=== PATIENT | male | born 1975 | race Caucasian/White ===

== ENCOUNTER 2017-10-23 14:30 | Inpatient (IN) | payer MEDICAID, SELFPAY ==
--- NOTE | 2017-10-23 14:30 | DT_ITS ---
This patient was seen during an EMR downtime October 19, 2017 - October 26, 2017. This patient may have a combination of paper and electronic documentation or all paper documentation. All documentation is viewable within the e-chart portion of [facility] for each patient visit.
--- NOTE | 2017-10-23 19:28 | CT_ITS ---
STUDY: CT BRAIN WITHOUT CONTRAST REASON FOR EXAM: Male, 42 years old. Intracranial hemorrhage RADIATION DOSAGE (If Supplied By Facility): CTDIvol = ( 44.99 ) mGy, DLP = ( 846.73 ) mGycm TECHNIQUE: Transaxial CT imaging of the brain was performed without administration of intravenous contrast material. Sagittal and coronal images reformatted. Individualized dose optimization techniques were used for this CT. COMPARISON: None. FINDINGS: Normal soft tissue structures. Posterior parietal cranial defect. Left cerebral sulcal effacement. Mild effacement of the left lateral ventricle. Mild shift of the falx to the right of 2 mm. Normal white matter tracts of the cerebral hemispheres. Normal basal ganglia and thalami. Normal brainstem. Normal cerebellum. There is a left temporal parietal hemorrhage measuring 3.7 x 2.3 x 2.5 cm with surrounding edema. There are no findings of an acute ischemic infarction. There is mucoperiosteal inflammatory disease of the paranasal sinuses consistent with mild chronic sinusitis. CT/Brain/Head without Contrast IMPRESSION: There is a large left temporoparietal hemorrhage measuring 3.7 x 2.3 x 2.5 cm with surrounding edema. Left cerebral sulcal effacement. Mild shift of the falx to the right of 2 mm. N.B. : The above information has been verbally conveyed by Len Dhillon DO to Dr. Xena Barakat, Referring Physician, on 10/23/2017 20:22:47 (ET). Electronically Signed: Len Dhillon DO at 19:53 EDT , Service support , N.B. : The above information has been verbally conveyed by Len Dhillon DO to Dr. Xena Barakat, Referring Physician, on 10/23/2017 20:22:47 (ET).
[2017-10-26] MEDS: Acetaminophen 325 MG Tablet 650 MG PO (10:00)
[2017-10-26] MEDS: Docusate Sodium 100 MG Capsule PO ×2 (10:00→21:11)
[2017-10-26] MEDS: amLODIPine 5 MG Tablet PO (10:00)
[2017-10-26] MEDS: Heparin Injection 5,000 UNITS/ML Syringe 5000 UNITS SC (15:00)
--- NOTE | 2017-10-26 16:50 | PCM.PN.HOSP ---
Subjective: Planes of headache. States initially he only experiences in the morning but then states he has an at night. Says it is frontal but different than his typical migraines which are on top of the scalp. General: Alert, No apparent distress HEENT: Atraumatic, Normocephalic Current Medications Acetaminophen (Tylenol) 650 mg PO Q6H PRN Last Admin: 10/26/17 10:00 Dose: 650 mg Amlodipine Besylate (Norvasc) 5 mg PO DAILY [facility] Last Admin: 10/26/17 10:00 Dose: 5 mg Docusate Sodium (Colace) 100 mg PO BID [facility] Last Admin: 10/26/17 10:00 Dose: 100 mg Heparin Sodium (Porcine) () 5,000 units SC Q8 [facility] Last Admin: 10/26/17 15:00 Dose: 5,000 units Oxycodone HCl (Oxyir) 5 mg PO Q6H PRN Medical Necessity - Tobacco Use Smoking Status: Never smoker Assessment/Plan 1. Intracranial hemorrhage I [facility] and as well as with the patient and his family in his room. Notes that I received from the facility stated that it could be related with hemorrhagic transformation of a stroke versus just a related with hypertension. Patient will need follow-up with neurology as outpatient. Repeat head CT from the eighth still confirms large left temporal parietal hemorrhage of 3.7 x 2.3 x 2.5 cm with surrounding edema. The patient's father asked me about the etiology and as I was looking at the records he went to the bathroom and walked out of the room. 2. Migraine I recommended Tylenol for the patient and I recommended the patient avoid narcotics. I told him that I would not be discontinuing the narcotics but narcotics should not be used for headaches. Patient stated that initially he was using for headaches and then I told him he should be using it said he was using only for his back. I told the patient to avoid narcotics as much as possible unless absolutely necessary for other musculoskeletal pain. Await further recommendations by neurology in regards to the patient's chronic migraine disorder. 3. Hypertension Patient's blood pressure here in over [facility] is actually been pretty good. No evidence of any malignant hypertension or even hypertensive urgency. I do agree with continuing low-dose of amlodipine for blood pressure control. Recommend the patient and his family that we will continue with blood pressure control and that he will need antihypertensive therapy for the time being. It seemed as though they wanted a blanket statement that he would need to be on something for the rest of his life or not. Home I could not provide that but he would need to have further follow-up with his primary care doctor to see if he will still need antihypertensive treatment or not but I did explain is possible that he may not a later point. 4. VTE prophylaxis Patient on subcu heparin. I will discontinue the heparin and place patient on SCDs given the hemorrhage patient has. Greater than 40 minutes of which greater than 50% of the time was spent discussing with the patient's family in regards to the intracranial hemorrhage, headaches, migraines and hypertension treatment. Patient's story constantly changed during the course of the encounter and when trying to answer the patient's father's questions the father left the room and not to return. Patient's grandmother was there who also asked questions as well but is quite surprising that made his questions were not answered at the [facility] or if they have have simply just weren't present or just simply did not ask these questions. Code Visit Inpatient E&M: 41209 Subs Hosp L3
--- NOTE | 2017-10-26 16:57 | PN_ITS ---
Subjective: Planes of headache. States initially he only experiences in the morning but then states he has an at night. Says it is frontal but different than his typical migraines which are on top of the scalp. General: Alert, No apparent distress HEENT: Atraumatic, Normocephalic Current Medications Acetaminophen (Tylenol) 650 mg PO Q6H PRN Last Admin: 10/26/17 10:00 Dose: 650 mg Amlodipine Besylate (Norvasc) 5 mg PO DAILY [facility] Last Admin: 10/26/17 10:00 Dose: 5 mg Docusate Sodium (Colace) 100 mg PO BID [facility] Last Admin: 10/26/17 10:00 Dose: 100 mg Heparin Sodium (Porcine) () 5,000 units SC Q8 [facility] Last Admin: 10/26/17 15:00 Dose: 5,000 units Oxycodone HCl (Oxyir) 5 mg PO Q6H PRN Medical Necessity - Tobacco Use Smoking Status: Never smoker Assessment/Plan 1. Intracranial hemorrhage * I [facility] and as well as with the patient and his family in his room. Notes that I received from the facility stated that it could be related with hemorrhagic transformation of a stroke versus just a related with hypertension. * Patient will need follow-up with neurology as outpatient. Repeat head CT from the eighth still confirms large left temporal parietal hemorrhage of 3.7 x 2.3 x 2.5 cm with surrounding edema. * The patient's father asked me about the etiology and as I was looking at the records he went to the bathroom and walked out of the room. 2. Migraine * I recommended Tylenol for the patient and I recommended the patient avoid narcotics. I told him that I would not be discontinuing the narcotics but narcotics should not be used for headaches. Patient stated that initially he was using for headaches and then I told him he should be using it said he was using only for his back. * I told the patient to avoid narcotics as much as possible unless absolutely necessary for other musculoskeletal pain. * Await further recommendations by neurology in regards to the patient's chronic migraine disorder. 3. Hypertension * Patient's blood pressure here in over [facility] is actually been pretty good. No evidence of any malignant hypertension or even hypertensive urgency. * I do agree with continuing low-dose of amlodipine for blood pressure control. * Recommend the patient and his family that we will continue with blood pressure control and that he will need antihypertensive therapy for the time being. It seemed as though they wanted a blanket statement that he would need to be on something for the rest of his life or not. Home I could not provide that but he would need to have further follow-up with his primary care doctor to see if he will still need antihypertensive treatment or not but I did explain is possible that he may not a later point. 4. VTE prophylaxis * Patient on subcu heparin. * I will discontinue the heparin and place patient on SCDs given the hemorrhage patient has. Greater than 40 minutes of which greater than 50% of the time was spent discussing with the patient's family in regards to the intracranial hemorrhage, headaches, migraines and hypertension treatment. Patient's story constantly changed during the course of the encounter and when trying to answer the patient 's father's questions the father left the room and not to return. Patient's grandmother was there who also asked questions as well but is quite surprising that made his questions were not answered at the [facility] or if they have have simply just weren't present or just simply did not ask these questions. Code Visit Inpatient E&M: 63639 Subs Hosp L3
--- NOTE | 2017-10-26 17:28 | PCM.PN.NEU ---
Subjective: Patient seen during Physical therapy session. Is having headaches in the evening but resolving with Tylenol. Tolerating therapy. Denies any shortness of breath, chest pains, blurry vision or double vision. No issues with GI/. - Physical Exam General: Alert, Oriented x3, Cooperative HEENT: Atraumatic, PERRLA, EOMI, Normocephalic Neck: Supple, No JVD, Negative Carotid Bruits Lungs: Clear to auscultation, Normal air movement Cardiovascular: Regular rate, No murmurs Abdomen: Bowel Sounds Present, Soft, Non Tender Extremities: No edema, Capillary Refill Less than 3 Seconds Skin: No rashes, No breakdown Musculoskeletal: No Tenderness to Palpation of Joints or Extremities Neurological: Cranial nerves II-XII grossly intact Psych/Mental Status: Normal Affect, Appropriate Active Medications Acetaminophen (Tylenol) 650 mg PO Q6H PRN Last Admin: 10/26/17 10:00 Dose: 650 mg Amlodipine Besylate (Norvasc) 5 mg PO DAILY [facility] Last Admin: 10/26/17 10:00 Dose: 5 mg Docusate Sodium (Colace) 100 mg PO BID [facility] Last Admin: 10/26/17 10:00 Dose: 100 mg Oxycodone HCl (Oxyir) 5 mg PO Q6H PRN Medical Necessity - Tobacco Use Smoking Status: Never smoker Assessment/Plan Debility s/p Left Basilar ganglia hemorrhage. Goal of rehab is christianity of prior level of functional independence. Plan: - Physical therapy for gait and balance - Occupational Therapy for ADLs - Speech therapy - As needed analgesics - Bowel protocol - DVT prophylaxis: SCDs, Heparin 5,000units daily - HTN - started on Norvasc 5mg daily. Goal BP < 130/80 - Hx of Migraines - Currently does not have headache, states they have been resolving with Tylenol will monitor - Fall precautions
--- NOTE | 2017-10-26 17:39 | PN.NEURO_ITS ---
Subjective: Patient seen during Physical therapy session. Is having headaches in the evening but resolving with Tylenol. Tolerating therapy. Denies any shortness of breath, chest pains, blurry vision or double vision. No issues with GI/. - Physical Exam General: Alert, Oriented x3, Cooperative HEENT: Atraumatic, PERRLA, EOMI, Normocephalic Neck: Supple, No JVD, Negative Carotid Bruits Lungs: Clear to auscultation, Normal air movement Cardiovascular: Regular rate, No murmurs Abdomen: Bowel Sounds Present, Soft, Non Tender Extremities: No edema, Capillary Refill Less than 3 Seconds Skin: No rashes, No breakdown Musculoskeletal: No Tenderness to Palpation of Joints or Extremities Neurological: Cranial nerves II-XII grossly intact Psych/Mental Status: Normal Affect, Appropriate Active Medications Acetaminophen (Tylenol) 650 mg PO Q6H PRN Last Admin: 10/26/17 10:00 Dose: 650 mg Amlodipine Besylate (Norvasc) 5 mg PO DAILY [facility] Last Admin: 10/26/17 10:00 Dose: 5 mg Docusate Sodium (Colace) 100 mg PO BID [facility] Last Admin: 10/26/17 10:00 Dose: 100 mg Oxycodone HCl (Oxyir) 5 mg PO Q6H PRN Medical Necessity - Tobacco Use Smoking Status: Never smoker Assessment/Plan Debility s/p Left Basilar ganglia hemorrhage. Goal of rehab is restorationism of prior level of functional independence. Plan: - Physical therapy for gait and balance - Occupational Therapy for ADLs - Speech therapy - As needed analgesics - Bowel protocol - DVT prophylaxis: SCDs, Heparin 5,000units daily - HTN - started on Norvasc 5mg daily. Goal BP < 130/80 - Hx of Migraines - Currently does not have headache, states they have been resolving with Tylenol will monitor - Fall precautions
[2017-10-26 21:05] VITALS: BP 130/82; PULSE 67; RESP 18; TEMP 36.1; O2SAT 96
[2017-10-26] MEDS: oxyCODONE 5 MG Tablet PO (21:51)
[2017-10-27] MEDS: Heparin Injection 5,000 UNITS/ML Syringe 5000 UNITS SC (01:26)
--- NOTE | 2017-10-27 02:50 | NURSING ---
Reviewed and agree with PLUCK TRIMMER documentation and [facility] charting.
[2017-10-27 07:37] VITALS: O2SAT 98
--- NOTE | 2017-10-27 09:00 | NURSING ---
Patient found up in room by self and did not put call arias on. This nurse had found patient yesterday in room as well up without staff assist and had instructed him on patient safety and use of using staff for assist and patient had agreed yesterday to use the call arias and patient had for the rest of this nurses shift to her knowledge. Today, patient informed again about his safety and motion chair alarm will be placed in patients room. Patient angry with this nurse and reported that he will throw the alarm in the trash. Edna FORREST aware and Dr. Aguilera of patients noncompliance.
[2017-10-27] MEDS: amLODIPine 5 MG Tablet PO (09:13)
[2017-10-27] MEDS: Docusate Sodium 100 MG Capsule PO ×2 (09:13→21:07)
[2017-10-27 09:14] VITALS: BP 143/99; PULSE 77; RESP 18; TEMP 36.5; O2SAT 97
[2017-10-27 09:45] LABS: ALB/GLOB Ratio 1.1 RATIO (0.9-2.4); Albumin, Serum 3.5 g/dL (3.2-5.0); BUN 12 mg/dL (7-18); BUN/Creat Ratio 13.3 RATIO (10-20); EST Glomerular Filtration Rate 99 mL/min (>60); Est Glom Filt Rate - Afr Amer 120 mL/min (>60); Globulin 3.3 g/dL (2.2-4.2); Glucose 108 mg/dL (74-106); Protein, Total 6.8 g/dL (6.4-8.2)
[2017-10-27 09:46] LABS: AST(SGOT) 20 U/L (15-37); Alanine Aminotransfer ALT/SGPT 37 U/L (16-61); Alkaline Phosphatase 76 U/L (45-117); Anion Gap 9 (5-15); Calcium,Total 8.5 mg/dL (8.5-10.1); Chloride 106 mmol/L (98-107); Magnesium 2.5 mg/dL (1.6-2.6); Potassium 3.5 mmol/L (3.5-5.1); Sodium Level 142 mmol/L (136-145)
[2017-10-27 10:57] VITALS: BMI 27.9
--- NOTE | 2017-10-27 11:24 | PN.NEURO_ITS ---
Subjective: The patient reports rehab is going well however he is dissatisfied with the food. He is also dissatisfied with his interaction with the hospitalist yesterday, he indicated that the hospitalist and he had a negative interaction however I cannot corroborate this after discussing this with the staff. He says that the hospitalist through water on his food, again the staff did not note significant water on his food or elsewhere in the room. 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 Asks about his recovery, his blood pressure medicine and his ability to ride motorcycles and have sex. I indicated to him that his blood pressure should be treated for now, but I agree with the hospitalist notes that his blood pressure should be treated for now and eventually it should be treated based on blood pressure abnormalities. I told him that for now if there should be no driving and that if he returns to riding a motorcycle he should wear helmet which he apparently does not agree with. - Physical Exam General: Alert, Oriented x3 Psych/Mental Status: Agitated Vital Signs Temp Pulse Resp BP Pulse Ox 36.5 C L 77 18 143/99 H 97 10/27/17 09:14 10/27/17 09:14 10/27/17 09:14 10/27/17 09:14 10/27/17 09:14 Oxygen Delivery Method Room Air Weight: 101.4 kg Body Mass Index (BMI) 27.9 Intake and Output for Last 24 Hours 10/25/17 10/26/17 10/27/17 23:59 23:59 23:59 Intake Total 240 / 240 Balance 240 / 240 Laboratory Tests Past 24 Hrs 10/24/17 07:26 Sodium 142 Potassium 3.5 Chloride 106 Carbon Dioxide 27.0 Anion Gap 9 BUN 12 Creatinine 0.90 Est GFR (MDRD) Af Amer 120 Est GFR (MDRD) Non-Af 99 BUN/Creatinine Ratio 13.3 Glucose 108 H Calcium 8.5 Phosphorus 3.0 Magnesium 2.5 Total Bilirubin 0.70 AST 20 ALT 37 Alkaline Phosphatase 76 Total Protein 6.8 Albumin 3.5 Globulin 3.3 Albumin/Globulin Ratio 1.1 Current Medications Generic Name Dose Route Start Last Admin Trade Name Freq PRN Reason Stop Dose Admin Acetaminophen 650 mg 10/23/17 18:57 10/26/17 10:00 Tylenol PO 650 mg Q6H PRN Administration Amlodipine Besylate 5 mg 10/24/17 10:00 10/27/17 09:13 Norvasc PO 5 mg DAILY [facility] Administration Docusate Sodium 100 mg 10/23/17 22:00 10/27/17 09:13 Colace PO 100 mg BID [facility] Administration Gabapentin 100 mg 10/27/17 12:00 Neurontin PO TIDCM [facility] Lorazepam 0.5 mg 10/27/17 11:11 Ativan PO QHS PRN PRN INSOMNIA Oxycodone HCl 5 mg 10/23/17 18:57 10/26/17 21:51 Oxyir PO 5 mg Q6H PRN Administration Medical Necessity - Tobacco Use Smoking Status: Never smoker Assessment/Plan Debility s/p Left Basilar ganglia hemorrhage. Goal of rehab is catholic of prior level of functional independence. Plan: - Physical therapy for gait and balance - Occupational Therapy for ADLs - Speech therapy: Regular diet - As needed analgesics - Bowel protocol - DVT prophylaxis: SCDs, Heparin 5,000units daily - HTN - started on Norvasc 5mg daily. Goal BP < 130/80 - Hx of Migraines - Currently does not have headache, states they have been resolving with Tylenol will monitor - Fall precautions
--- NOTE | 2017-10-27 11:52 | NURSING ---
Patient returned to room after OT session with SALT OPERATOR assisting patient in hallway. As patient entered room, he seen the chair alarm and he threw the alarm across the room and was upset with SALT OPERATOR. SALT OPERATOR instructed patient on use of alarm and call arias for patient safety.
[2017-10-27] MEDS: Gabapentin 100 MG Capsule PO ×2 (14:27→17:58)
[2017-10-27 20:10] LABS: White Blood Count 5.7 K/mm3 (4.4-11.0)
[2017-10-27 20:11] LABS: Hematocrit 41.2 % (40-54); Hemoglobin 14.7 g/dl (13.0-16.5); Mean Corp Hgb Conc 35.7 g/gl (32-36); Mean Corpuscular Hgb 29.9 pg (27.0-32.0); Mean Corpuscular Volume 83.7 fL (80-94); Mean Platelet Vol. 9.8 fl (6.2-12.0); Platelet Count 201 K/mm3 (150-450); RBC Distribution Width SD 39.1 fl (35.1-43.9); Red Blood Count 4.92 M/mm3 (4.6-6.2); Scan Indicated on CBC? Y/N NO
[2017-10-27 21:00] VITALS: BP 148/76; PULSE 80; RESP 16; TEMP 36.6; O2SAT 97; BMI 27.9
[2017-10-27] MEDS: LORazepam 0.5 MG Tablet PO (21:07)
[2017-10-27] MEDS: oxyCODONE 5 MG Tablet PO (23:55)
--- NOTE | 2017-10-28 01:56 | NURSING ---
Agree with MAKING DEPARTMENT PREPARER documentation and [facility]IMS charting.
[2017-10-28] MEDS: Gabapentin 100 MG Capsule PO ×3 (08:55→17:24)
[2017-10-28 09:06] VITALS: BP 142/90; PULSE 78; RESP 18; TEMP 36.7; O2SAT 97
[2017-10-28] MEDS: Docusate Sodium 100 MG Capsule PO (10:25)
[2017-10-28] MEDS: amLODIPine 5 MG Tablet PO (10:25)
--- NOTE | 2017-10-28 10:35 | PCM.PN.NEU ---
Subjective: Patient seen in therapy room waiting therapy session. His blood pressure continues to be elevated will increase his Norvasc to 10mg daily. Was started on Gabapentin for Neuropathy pain in his feet yesterday, states pain is improving, felt better last night. He is Tolerating therapy. States he is ready to go home. No issues with GI/. - Physical Exam General: Alert, Oriented x3, Cooperative HEENT: Atraumatic, PERRLA, EOMI, Normocephalic Neck: Supple, No JVD, Negative Carotid Bruits Lungs: Clear to auscultation, Normal air movement Cardiovascular: Regular rate, No murmurs Abdomen: Bowel Sounds Present, Soft, Non Tender Extremities: No edema, Capillary Refill Less than 3 Seconds Skin: No rashes, No breakdown Musculoskeletal: No Tenderness to Palpation of Joints or Extremities Neurological: Cranial nerves II-XII grossly intact Psych/Mental Status: Normal Affect, Appropriate, Alert and oriented to time, place, person, mood and affect Vital Signs Temp Pulse Resp BP Pulse Ox 98.0 F 78 18 142/90 H 97 10/28/17 09:06 10/28/17 09:06 10/28/17 09:06 10/28/17 09:06 10/28/17 09:06 Oxygen Delivery Method Room Air Weight: 99.4 kg Body Mass Index (BMI) 27.9 Intake and Output for Last 24 Hours 10/26/17 10/27/17 10/28/17 23:59 23:59 23:59 Intake Total 240 / 240 220 / 220 Balance 240 / 240 220 / 220 Laboratory Tests Past 24 Hrs 10/24/17 07:26 WBC 5.7 RBC 4.92 Hgb 14.7 Hct 41.2 MCV 83.7 MCH 29.9 MCHC 35.7 RDW 13.0 RDW Differential 39.1 Plt Count 201 MPV 9.8 Active Medications Acetaminophen (Tylenol) 650 mg PO Q6H PRN Last Admin: 10/26/17 10:00 Dose: 650 mg Amlodipine Besylate (Norvasc) 5 mg PO DAILY [facility] Last Admin: 10/28/17 10:25 Dose: 5 mg Gabapentin (Neurontin) 100 mg PO TIDCM [facility] Last Admin: 10/28/17 08:55 Dose: 100 mg Lorazepam (Ativan) 0.5 mg PO QHS PRN PRN PRN Reason: INSOMNIA Last Admin: 10/27/17 21:07 Dose: 0.5 mg Oxycodone HCl (Oxyir) 5 mg PO Q6H PRN Last Admin: 10/27/17 23:55 Dose: 5 mg Senna/Docusate Sodium (Senokot-S, Abida-Colace) 2 tablet PO QHS [facility] Medical Necessity - Tobacco Use Smoking Status: Never smoker Assessment/Plan Debility s/p Left Basilar ganglia hemorrhage. Goal of rehab is gnosticist of prior level of functional independence. Plan: - Physical therapy for gait and balance - Occupational Therapy for ADLs - Speech therapy: Regular diet - As needed analgesics - Bowel protocol - DVT prophylaxis: SCDs, Heparin 5,000units daily - HTN - started on Norvasc 5mg daily. Goal BP < 130/80. Blood pressure is trending up. Increased Norvasc to 10mg daily. - Hx of Migraines - Currently does not have headache, states they have been resolving with Tylenol will monitor - Fall precautions
--- NOTE | 2017-10-28 10:43 | PN.NEURO_ITS ---
Subjective: Patient seen in therapy room waiting therapy session. His blood pressure continues to be elevated will increase his Norvasc to 10mg daily. Was started on Gabapentin for Neuropathy pain in his feet yesterday, states pain is improving, felt better last night. He is Tolerating therapy. States he is ready to go home. No issues with GI/. - Physical Exam General: Alert, Oriented x3, Cooperative HEENT: Atraumatic, PERRLA, EOMI, Normocephalic Neck: Supple, No JVD, Negative Carotid Bruits Lungs: Clear to auscultation, Normal air movement Cardiovascular: Regular rate, No murmurs Abdomen: Bowel Sounds Present, Soft, Non Tender Extremities: No edema, Capillary Refill Less than 3 Seconds Skin: No rashes, No breakdown Musculoskeletal: No Tenderness to Palpation of Joints or Extremities Neurological: Cranial nerves II-XII grossly intact Psych/Mental Status: Normal Affect, Appropriate, Alert and oriented to time, place, person, mood and affect Vital Signs Temp Pulse Resp BP Pulse Ox 98.0 F 78 18 142/90 H 97 10/28/17 09:06 10/28/17 09:06 10/28/17 09:06 10/28/17 09:06 10/28/17 09:06 Oxygen Delivery Method Room Air Weight: 99.4 kg Body Mass Index (BMI) 27.9 Intake and Output for Last 24 Hours 10/26/17 10/27/17 10/28/17 23:59 23:59 23:59 Intake Total 240 / 240 220 / 220 Balance 240 / 240 220 / 220 Laboratory Tests Past 24 Hrs 10/24/17 07:26 WBC 5.7 RBC 4.92 Hgb 14.7 Hct 41.2 MCV 83.7 MCH 29.9 MCHC 35.7 RDW 13.0 RDW Differential 39.1 Plt Count 201 MPV 9.8 Active Medications Acetaminophen (Tylenol) 650 mg PO Q6H PRN Last Admin: 10/26/17 10:00 Dose: 650 mg Amlodipine Besylate (Norvasc) 5 mg PO DAILY [facility] Last Admin: 10/28/17 10:25 Dose: 5 mg Gabapentin (Neurontin) 100 mg PO TIDCM [facility] Last Admin: 10/28/17 08:55 Dose: 100 mg Lorazepam (Ativan) 0.5 mg PO QHS PRN PRN PRN Reason: INSOMNIA Last Admin: 10/27/17 21:07 Dose: 0.5 mg Oxycodone HCl (Oxyir) 5 mg PO Q6H PRN Last Admin: 10/27/17 23:55 Dose: 5 mg Senna/Docusate Sodium (Senokot-S, Abida-Colace) 2 tablet PO QHS [facility] Medical Necessity - Tobacco Use Smoking Status: Never smoker Assessment/Plan Debility s/p Left Basilar ganglia hemorrhage. Goal of rehab is sikhism of prior level of functional independence. Plan: - Physical therapy for gait and balance - Occupational Therapy for ADLs - Speech therapy: Regular diet - As needed analgesics - Bowel protocol - DVT prophylaxis: SCDs, Heparin 5,000units daily - HTN - started on Norvasc 5mg daily. Goal BP < 130/80. Blood pressure is trending up. Increased Norvasc to 10mg daily. - Hx of Migraines - Currently does not have headache, states they have been resolving with Tylenol will monitor - Fall precautions
[2017-10-28 17:00] VITALS: BMI 27.9
[2017-10-28 20:10] VITALS: PULSE 90; RESP 16; O2SAT 97; BMI 27.9
[2017-10-28] MEDS: Senna/Docusate Sodium 1 Tablet 2 TABLET PO (20:14)
[2017-10-28] MEDS: LORazepam 0.5 MG Tablet PO (20:15)
[2017-10-28] MEDS: oxyCODONE 5 MG Tablet PO (21:08)
[2017-10-29 07:50] VITALS: BP 125/77; PULSE 64; RESP 18; TEMP 36.6; O2SAT 97
[2017-10-29] MEDS: Gabapentin 100 MG Capsule PO ×3 (07:53→17:09)
[2017-10-29] MEDS: amLODIPine 10 MG Tablet PO (07:53)
[2017-10-29 09:36] VITALS: BMI 27.9
--- NOTE | 2017-10-29 10:47 | CASEMGMT ---
Team meeting held. Patient present, no support person present during team. No discharge date set at this time. Patient plans to discharge home with father at time of discharge. Patient has been progressing in therapy. Patient with insurance update due today and is aware that continued stay approval is not guaranteed. Telephone call made to patient fatherMyles. Voicemail left for Myles to contact this social media developer back with any questions or if an update on the team meeting is desired. Support given. Will continue to follow. Christen COLLINS, REED REPAIRER
--- NOTE | 2017-10-29 12:05 | CASEMGMT ---
Insurance Clinical information faxed. Pending continued stay approval. Auth#[id number] Christen COLLINS, COMPUTER SYSTEMS MANAGER
--- NOTE | 2017-10-29 16:14 | PCM.PN.NEU ---
Subjective: Staffed in team. Family was not at bedside. Questions answered. With Physical therapy, he is standby assist to contact guard for bed mobility and transfers. He is able to walk greater than 500 feet at standby assist to contact guard with a cane. With Occupational therapy, he is stand by to supervision for his personal care and toileting. With Speech therapy, continues to have problems with problem solving, planning, and sequencing. With Nursing, he continues to have self control issues, he will get up unassisted to go to the bathroom or to walk around the room. Fall pre-caution alarm was placed on the patient, he is very upset over this. It was explained to him that it was for his safety, he still very unhappy about it. - Physical Exam General: Alert, Oriented x3, Cooperative HEENT: Atraumatic, PERRLA, EOMI, Normocephalic Neck: Supple, No JVD, Negative Carotid Bruits Lungs: Clear to auscultation, Normal air movement Cardiovascular: Regular rate, No murmurs Abdomen: Bowel Sounds Present, Soft, Non Tender Extremities: No edema, Capillary Refill Less than 3 Seconds Skin: No rashes, No breakdown Musculoskeletal: No Tenderness to Palpation of Joints or Extremities Neurological: Cranial nerves II-XII grossly intact Psych/Mental Status: Normal Affect, Appropriate, Alert and oriented to time, place, person, mood and affect Vital Signs Temp Pulse Resp BP Pulse Ox 97.8 F 64 18 125/77 H 97 10/29/17 07:50 10/29/17 07:50 10/29/17 07:50 10/29/17 07:50 10/29/17 07:50 Oxygen Delivery Method Room Air Weight: 99.4 kg Body Mass Index (BMI) 27.9 Intake and Output for Last 24 Hours 10/27/17 10/28/17 10/29/17 23:59 23:59 23:59 Intake Total 220 / 220 220 / 220 600 / 600 Balance 220 / 220 220 / 220 600 / 600 Active Medications Acetaminophen (Tylenol) 650 mg PO Q6H PRN Last Admin: 10/26/17 10:00 Dose: 650 mg Amlodipine Besylate (Norvasc) 10 mg PO DAILY [facility] Last Admin: 10/29/17 07:53 Dose: 10 mg Gabapentin (Neurontin) 100 mg PO TIDCM [facility] Last Admin: 10/29/17 12:19 Dose: 100 mg Lorazepam (Ativan) 0.5 mg PO QHS PRN PRN PRN Reason: INSOMNIA Last Admin: 10/28/17 20:15 Dose: 0.5 mg Oxycodone HCl (Oxyir) 5 mg PO Q6H PRN Last Admin: 10/28/17 21:08 Dose: 5 mg Senna/Docusate Sodium (Senokot-S, Abida-Colace) 2 tablet PO QHS [facility] Last Admin: 10/28/17 20:14 Dose: 2 tablet Medical Necessity - Tobacco Use Smoking Status: Never smoker Assessment/Plan Debility s/p Left Basilar ganglia hemorrhage. Goal of rehab is tenriism of prior level of functional independence. Plan: - Physical therapy for gait and balance - Occupational Therapy for ADLs - Speech therapy: Regular diet - As needed analgesics - Bowel protocol - DVT prophylaxis: SCDs, Heparin 5,000units daily - HTN - started on Norvasc 5mg daily. Goal BP < 130/80. Blood pressure is trending up. Increased Norvasc to 10mg daily. - Hx of Migraines - Currently does not have headache, states they have been resolving with Tylenol will monitor - Fall precautions => alarm placed on patient
--- NOTE | 2017-10-29 16:29 | PN.NEURO_ITS ---
Subjective: Staffed in team. Family was not at bedside. Questions answered. With Physical therapy, he is standby assist to contact guard for bed mobility and transfers. He is able to walk greater than 500 feet at standby assist to contact guard with a cane. With Occupational therapy, he is stand by to supervision for his personal care and toileting. With Speech therapy, continues to have problems with problem solving, planning, and sequencing. With Nursing, he continues to have self control issues, he will get up unassisted to go to the bathroom or to walk around the room. Fall pre-caution alarm was placed on the patient, he is very upset over this. It was explained to him that it was for his safety, he still very unhappy about it. - Physical Exam General: Alert, Oriented x3, Cooperative HEENT: Atraumatic, PERRLA, EOMI, Normocephalic Neck: Supple, No JVD, Negative Carotid Bruits Lungs: Clear to auscultation, Normal air movement Cardiovascular: Regular rate, No murmurs Abdomen: Bowel Sounds Present, Soft, Non Tender Extremities: No edema, Capillary Refill Less than 3 Seconds Skin: No rashes, No breakdown Musculoskeletal: No Tenderness to Palpation of Joints or Extremities Neurological: Cranial nerves II-XII grossly intact Psych/Mental Status: Normal Affect, Appropriate, Alert and oriented to time, place, person, mood and affect Vital Signs Temp Pulse Resp BP Pulse Ox 97.8 F 64 18 125/77 H 97 10/29/17 07:50 10/29/17 07:50 10/29/17 07:50 10/29/17 07:50 10/29/17 07:50 Oxygen Delivery Method Room Air Weight: 99.4 kg Body Mass Index (BMI) 27.9 Intake and Output for Last 24 Hours 10/27/17 10/28/17 10/29/17 23:59 23:59 23:59 Intake Total 220 / 220 220 / 220 600 / 600 Balance 220 / 220 220 / 220 600 / 600 Active Medications Acetaminophen (Tylenol) 650 mg PO Q6H PRN Last Admin: 10/26/17 10:00 Dose: 650 mg Amlodipine Besylate (Norvasc) 10 mg PO DAILY [facility] Last Admin: 10/29/17 07:53 Dose: 10 mg Gabapentin (Neurontin) 100 mg PO TIDCM [facility] Last Admin: 10/29/17 12:19 Dose: 100 mg Lorazepam (Ativan) 0.5 mg PO QHS PRN PRN PRN Reason: INSOMNIA Last Admin: 10/28/17 20:15 Dose: 0.5 mg Oxycodone HCl (Oxyir) 5 mg PO Q6H PRN Last Admin: 10/28/17 21:08 Dose: 5 mg Senna/Docusate Sodium (Senokot-S, Abida-Colace) 2 tablet PO QHS [facility] Last Admin: 10/28/17 20:14 Dose: 2 tablet Medical Necessity - Tobacco Use Smoking Status: Never smoker Assessment/Plan Debility s/p Left Basilar ganglia hemorrhage. Goal of rehab is catholic of prior level of functional independence. Plan: - Physical therapy for gait and balance - Occupational Therapy for ADLs - Speech therapy: Regular diet - As needed analgesics - Bowel protocol - DVT prophylaxis: SCDs, Heparin 5,000units daily - HTN - started on Norvasc 5mg daily. Goal BP < 130/80. Blood pressure is trending up. Increased Norvasc to 10mg daily. - Hx of Migraines - Currently does not have headache, states they have been resolving with Tylenol will monitor - Fall precautions => alarm placed on patient
[2017-10-29 20:10] VITALS: BP 141/91; PULSE 82; RESP 18; TEMP 36.7; O2SAT 95
[2017-10-29] MEDS: Senna/Docusate Sodium 1 Tablet 2 TABLET PO (21:11)
[2017-10-29] MEDS: oxyCODONE 5 MG Tablet PO (21:11)
[2017-10-29] MEDS: LORazepam 0.5 MG Tablet PO (21:12)
[2017-10-29 22:00] VITALS: PULSE 88
[2017-10-30] MEDS: Gabapentin 100 MG Capsule PO ×3 (07:50→17:43)
[2017-10-30] MEDS: amLODIPine 10 MG Tablet PO (07:50)
[2017-10-30 07:53] VITALS: BP 123/72; PULSE 64; RESP 16; TEMP 36.6; O2SAT 93
--- NOTE | 2017-10-30 13:01 | CASEMGMT ---
Social Work Collaborating with team and patient, discharge date set for 10/31/17. Patient plans to discharge home with fatherMyles. This bilingual social worker communicating that physical and occupational therapy are recommending for patient to continue with further care and treatment through outpatient therapy services. Patient is agreeable to recommendation and requesting for outpatient therapy services to be set up through [facility]. Patient aware that [facility] will contact patient to set up appointment after order is faxed by this bilingual social worker. Patient reporting to have all needed durable medical equipment already set up at this time. Patient agreeable to this bilingual social worker contacting patient Myles magallanes in regards to discharge plan and date. Telephone call to [facility]. Myles agreeable to discharge date and plan. [facility] planning to provide transportation home for patient at time of discharge. Support given. Order for physical and occupational therapy faxed to [facility]. Proposed discharge date: 10/31/17. PLAN: Discharge home with father and outpatient therapy services. Christen COLLINS, HOME HEALTH MANAGER
[2017-10-30 14:08] VITALS: BMI 27.9
--- NOTE | 2017-10-30 17:17 | PCM.DC ---
You will use the following diet at home:: Regular, Cardiac Your food should be the consistency of: Regular Your liquids should be the consistency of: Regular/Thin Discharge Activity: May Not Drive, May not drive while taking narcotic pain medications., May Shower, May Take a Tub Bath, Use Walker, - - Use cane Weight Bearing Status: Full weight bearing Call your doctor if you observe: Fever of 101 or Higher, Coldness, Increased Pain, Numbness or Tingling, Change in Color, Inability to urinate, Inability to have a bowel movement, Using more than one pad per hour, Shortness of breath, Dizziness, Fainting spells, Swelling in the ankles, Chest pain, Prolonged hiccoughing, Increased palpitations (irregular heartbeat), Calf discomfort, Uncontrolled pain Allergies/Adverse Reactions: Allergies hydrocodone [From Vicodin] Adverse Reaction (Verified 10/23/17 18:55) Other Medications to take at Discharge Fluoxetine [Prozac] 40 mg PO DAILY 10/27/17 Oxycodone HCl/Acetaminophen [Percocet 5-325] 1 - 2 tablet PO Q6H PRN PRN 10/27/17 Pantoprazole Sodium 40 mg PO DAILY 10/27/17 traMADol [Ultram] 50 mg PO Q6H PRN PRN 10/27/17 Amlodipine [Norvasc] 10 mg PO DAILY #60 tab 10/30/17 Gabapentin [Neurontin] 100 mg PO TIDCM #270 cap 10/30/17 The following prescriptions were given: Amlodipine [Norvasc] 10 mg PO DAILY #60 tab Gabapentin [Neurontin] 100 mg PO TIDCM #270 cap Primary Care Physician: Harpal Kwok DO [Primary Care Provider] - Please Follow Up With: [facility] - Physical and Occupational thearpy Please Follow Up With: Edna Gao NP-C Please Follow Up With: Harpal Kwok Proposed Discharge Date: 10/31/17
[2017-10-30 17:19] VITALS: BP 146/89; PULSE 81; RESP 16; TEMP 36.6; O2SAT 96
--- NOTE | 2017-10-30 17:20 | PCM.RU.DC ---
Rehab Discharge Summary DATE OF ADMISSION: 10/23/17 DATE OF DISCHARGE: 10/31/17 - Rehab Diagnosis ICH Discharge Diet: 2000 mg Sodium Diet Discharge Activity: May Not Drive, May not drive while taking narcotic pain medications., May Shower, May Take a Tub Bath, Use Walker, - - Use cane Weight Bearing Status: Full weight bearing Call your doctor if you observe: Fever of 101 or Higher, Coldness, Increased Pain, Numbness or Tingling, Change in Color, Inability to urinate, Inability to have a bowel movement, Using more than one pad per hour, Shortness of breath, Dizziness, Fainting spells, Swelling in the ankles, Chest pain, Prolonged hiccoughing, Increased palpitations (irregular heartbeat), Calf discomfort, Uncontrolled pain Home Medications: Medications to take at Discharge Fluoxetine [Prozac] 40 mg PO DAILY 10/27/17 Oxycodone HCl/Acetaminophen [Percocet 5-325] 1 - 2 tablet PO Q6H PRN PRN 10/27/17 Pantoprazole Sodium 40 mg PO DAILY 10/27/17 traMADol [Ultram] 50 mg PO Q6H PRN PRN 10/27/17 Amlodipine [Norvasc] 10 mg PO DAILY #60 tab 10/30/17 Gabapentin [Neurontin] 100 mg PO TIDCM #270 cap 10/30/17 Following Prescrptions Were Given to Patient: Amlodipine [Norvasc] 10 mg PO DAILY #60 tab Gabapentin [Neurontin] 100 mg PO TIDCM #270 cap Primary Care Physician: Harpal Kwok DO [Primary Care Provider] - Please Follow Up With: [facility] - Physical and Occupational thescenicy Please Follow Up With: Edna Gao NP-C Please Follow Up With: Harpal Kwko Disposition: Home - with outpatient Physical therapy and speech therapy Minutes spent on discharge:: 40 Patient Condition:: Good Rehab Course The patient is a 42 year old male, admitted to the rehab unit for rehabilitation after suffering a Left basalia ganglia ICH. He has a PMH of HTN was not on any medication prior to admission, migraines, depression, chronic back pain on opioids. PER documentation he was found down on the floor with right sided weakness and garbled speech. He lives with his father and has three steps to get into the home. He was functionally independent prior to this event. With Physical therapy, he is standby assist to contact guard for bed mobility and transfers. He is able to walk greater than 500 feet at standby assist to contact guard with a cane. With Occupational therapy, he is stand by to supervision for his personal care and toileting. With Speech therapy, continues to have problems with problem solving, planning, and sequencing. With Nursing, he continues to have self control issues, he will get up unassisted to go to the bathroom or to walk around the room. Fall pre-caution alarm was placed on the patient, he is very upset over this. It was explained to him that it was for his safety, he still very unhappy about it. He will be discharged home with outpatient Physical therapy, occupational therapy and Speech therapy. Meaningful Use Info Meaningful Use Diagnoses (Choose all that apply): None applicable - ICH - CVA Therapy Assessed for PT,OT and/or ST?: Yes
[2017-10-30] MEDS: Senna/Docusate Sodium 1 Tablet 2 TABLET PO (21:04)
[2017-10-30 21:39] VITALS: BP 147/103; PULSE 83; RESP 16; TEMP 36.8; O2SAT 97
[2017-10-30 23:41] VITALS: BMI 27.9
--- NOTE | 2017-10-31 05:51 | NURSING ---
Reviewed and agree with LPNs fims and handoff
[2017-10-31 07:44] VITALS: BP 146/89; PULSE 81; RESP 16; TEMP 36.6; O2SAT 96
[2017-10-31] MEDS: Gabapentin 100 MG Capsule PO (07:46)
[2017-10-31] MEDS: amLODIPine 10 MG Tablet PO (07:46)
--- NOTE | 2017-10-31 11:38 | NURSING ---
Went over discharge instructions, medications and appts, pt verbalized understanding. Discharged home with Dad had all personal belongings in hand.
--- NOTE | 2017-11-02 15:17 | CASEMGMT ---
Insurance Notified insurance of patient discharge on 10/31/17 to home with father and outpatient physical and occupational therapy. Auth#[id number] Christen COLLINS, FISHER TERRAPIN
== END 2017-10-31 11:47 | disposition home or self-care (01) | DRG 12 ==
PROVIDERS: Admitting Provider Psychiatry & Neurology Neurology; Family Provider Preventive Medicine Occupational Medicine; PCP Preventive Medicine Occupational Medicine; Visit Provider Internal Medicine
DX: I69.251 Hemiplegia and hemiparesis following other nontraumatic intracranial hemorrhage affecting right dominant side (principal); I10 Essential (primary) hypertension; G43.909 Migraine, unspecified, not intractable, without status migrainosus; I69.128 Other speech and language deficits following nontraumatic intracerebral hemorrhage; I69.191 Dysphagia following nontraumatic intracerebral hemorrhage; R13.10 Dysphagia, unspecified; Z79.891 Long term (current) use of 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; G89.29 Other chronic pain
CPT/HCPCS: 36415; 70450; 80053; 83735; 84100; 85027; 92507; 92523; 97110; 97112; 97116; 97162; 97166; 97530; 97535

== ENCOUNTER 2017-12-03 13:00 | Outpatient (RCR) | payer MEDICAID, SELFPAY ==
--- NOTE | 2017-11-02 15:55 | HP.PTEVAL_ITS ---
Patient's Visit Information TATE SINGH is a 42 year old M referred to Physical Therapy by Edna Gao NP-C with a diagnosis of CVA. Date of Evaluation: 11/02/17 Physical Therapist: Jo Jenkins - Visit Plan Frequency: 2x /Week Duration: 4 Weeks Plan: Focus on balance and functional mobility. - Subjective Subjective: Had a stroke 3 weeks ago- a week in [place] and 2 weeks at [place] on the rehab floor. He reports being overdosed/stroked after being given to much medication for migraines when he was 22-23 years old. This left him with some paralysis on the right side. 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 He lives with his dad in a single story home with a basement. He goes up/down the basement stairs and uses the HR. Reports he was told at [facility] that he is not to do stairs reciprocally he needs to do them one at a time. Did 4 loads of laundry yesterday carrried a basket upstairs. Work: does not work- on disability. He has had back pain that radiates down the right LE- this is not new. Worst: 01/25 Agg: sitting, lifting, sneezing. Eases: movement Best: 08/25 Sleep: does not sleep but that is normal. Gave him an AFO in the right shoe but he feels that he does better without it and it bothered his skin. Was supposed to use a cane before the stroke but didn't do it consistently. Now only uses it when he goes outside/community distances. But normally does not use it. PMHx/Meds: no change since he left hospital. - Objective Posture: FH, RS- can correct with verbal cues but does not maintain. posturing of CVA with right elbow flexion and wrist flexion. Gait: decreased stance on the right LE- poor heel/toe pattern with mild hip drop. Clears right toes but has increased hip flexion. HR/TR: able with UE A. SLS: left: 5 seconds right 2 seconds then requires UE A. ROM: WFL. Strength: ankle/knee: 5/5, Hip: right : 4+/5 left: 5/5 Core: fair. Flex: HS: no restriction Gastroc: mild restriction. Balance: sitting: good FGA: 15/30 - Goals Goal 1:: Patient will be I with HEP and progression Goal Time Frame: 4-6 Weeks Goal 2:: Patient will ambulate >300 feet with LRD and mod I Goal Time Frame: 4-6 Weeks Goal 3:: Patient will increase FGA by 5 points Goal Time Frame: 4-6 Weeks Goal 4:: Patient will asc/desc 8' recip with 1 HR I - Rehabilitation Potential Physical Therapy Diagnosis: Patient presents with hypomobility- he has decreased strength, balance and muscular endurance leading to abnormal gait and inability to perform ADL's safetly. Rehabilitation Potential: Fair - Anticipated Interventions Patient/Client Instruction: Educate patient on: Benefits of Fitness Program For the Purpose of:: To improve ability to perform ADL's Therapeutic Exercise to Include: Strength training, Endurance training, Balance training, Body mechanics, Dynamic Lumbar Stabilization For the Purpose of:: To improve muscle performance and motor function Thank you for the opportunity to evaluate your patient. For Medicare and Medicare HMO plans, please review the plan of care and approve it. It will need to be FAXED BACK to us at [phone] for Medicare purposes. Please let me know if there are questions or concerns regarding this plan of care. Physician Signature: Date:
--- NOTE | 2017-11-05 18:48 | HP.OTEVAL_ITS ---
Patient's Visit Information TATE SINGH is a 42 year old M, referred to Occupational Therapy by TIKI Robles, with a diagnosis of ICH. Date of Evaluation: 11/05/17 Occupational Therapist: Angeli Mendez - Subjective Subjective: Pt had stroke ICH over 3 wks ago. He was at [facility] for 1 wk and then went to [facility] for 1 wk and decided to d/c home with his father. Pt has fused vertebra in his lower back and has hx of RSD nerve disease. Pt has hx of paralysis R side prior to ICH. Pt lives in 1 story house w / basement with his dad. He has 3 steps to enter 1 HR. Indep with BADLs, and IADLs prior. Indep w/ driving. Was not working. Tub/shower grab bars and [facility]. Pt sleeping in basement on regular bed at this time. Flight of steps to basement with handrail. Pt states has been mowing the yard since back home using riding mower, back to driving and has done over 3 loads of laundry and carried them up the steps. He ambulates with no device. Pt states he typically doesn't sleep for many hrs a night and wants to get back to riding his road bike. - Pain Right Hand 6 Pain Intensity Range: 6 Back 6 Right Shoulder 6 - Objective Objective/Observation: Pt demonstrates decreased coordination of R hand, increased pain of R UE with decreased sensation of his R UE. Pt has difficulty with coordination tasks such as tying his shoes and touching his nose with his R hand while eyes closed. - ROM ROM Comments: BUE WFL - Strength Retort Loader: R 90#, L 95# Lateral Pinch: R 18#, L 20# Tripod Pinch: R 12#, L 18# Strength Comments: MMT R UE 4/5, L UE 5/5 - Edema Other: No edema noted - Sensation Sensation Comments: RSD nerve disease. Numbness/tingling R UE digits up to shoulder. R hand 6.10 monofilament score. L hand WFL no numbness/tingling. - Visual/Perceptual Skills Visual Field Cut: No Left Neglect: No - Cognitive Skills Follows Directions: Yes Short Term Memory Impaired: No - Attention Attention: Normal - Nine Hole Peg Right: 1:35 minutes Left: 26 seconds - In-Hand Manipulation Finger to Palm Translation: Moderate - Right, Normal - Left Palm to Finger Translation: Moderate - Right, Normal - Left - DASH-Disabilities of Arm, Shoulder& Hand DASH Sum: 96 - Goals Goal:: Pt will increase R hand indexer strength by 10# to assist with functional living tasks independently. Goal:: Pt will demonstrate decreased pain R shoulder 1/10 by d/c from OT services. Goal:: Pt will increase coordination and dexterity skills to manipulate fasteners independently and be able to write his signature legibly in 3/4 trials. Goal:: Pt will progress with R UE hand sensation to a 3.22 on monofilament test by d/c from OT services. Goal:: Pt will be able to tie shoes independently within an appropriate time frame in 3/4 trials. Goal:: Pt will be educated on HEP for R UE w/ good understanding and demo 100%x. Goal:: Pt will be educated on adaptive techniques and compensatory strategies to assist w/ BADL's/IADLs w/ good understanding and demo 100%x. - Rehabilitation General Assessment: Pt demonstrates decreased coordination, sensation and functional use of R UE. Pt is R hand dominent and not able to complete all BADL' s/IADL's as prior. Pt would benefit from direct occupational therapy services to increase R hand coordination and manipulation skills to assist w/ BADLs/ IADLs and handwriting/typing skills, as well as increase sensation and decrease pain of R UE and increase functional strength R UE to return pt to PLOF and increase pts quality of life. Rehabilitation Potential: Fair - Anticipated Interventions Anticipated Interventions: Strengthening, Sensory Retraining, Modalities, Joint Protection/Energy Conservation, Fine Motor Coord/Philip, Neuro Reeducation, Sensory Stimulation, ADL Training, Education re assistive Equipment, Home Program - Visit Plan Frequency: 2x /Week Duration: 4 Weeks General Plan: Pt would benefit from direct occupational therapy services to increase R hand coordination and manipulation skills to assist w/ BADLs/IADLs and handwriting/typing skills, as well as increase sensation and decrease pain of R UE and increase functional strength R UE to return pt to PLOF and increase pts quality of life. TEXT: Thank you for the opportunity to evaluate your patient. For Medicare and Medicare HMO plans, please review the plan of care and approve it. It will need to be FAXED BACK to us at [phone] for Medicare purposes. Please let me know if there are questions or concerns regarding this plan of care. Physician Signature: Date:
--- NOTE | 2017-12-03 13:22 | HP.PTDCSUM_ITS ---
HP - PT D/C Summary It has been my pleasure to treat TATE SINGH under orders from Edna Gao NP-C, for the diagnosis of CVA for a total of 8 visit(s). Discharge Date: Please see the following information for a summary of their discharge status. - Subjective Subjective: Patient reports that he is happy with his progress- he is back to everything he was doing before except he can't always kick his motorcycle. He feels that he can do everything at home that he is doing in therapy and does the exercises daily. - Objective Objective/Function: Posture: good in seated chair- does not require VC's Gait: improved- slight toe out of the right LE. HR/TR: able with UE A. SLS: left: 10 seconds right 8 seconds then requires UE A. ROM: WFL. Strength: ankle/knee : 5/5, Hip: right: 5/5 left: 5/5 Core: fair plus. Flex: HS: no restriction Gastroc: mild restriction. Balance: sitting: good FGA: - Goals Goal 1:: Patient will be I with HEP and progression Goal Progress: Goal Met Goal 2:: Patient will ambulate >300 feet with LRD and mod I Goal Progress: Progressing Goal 3:: Patient will increase FGA by 5 points Goal Progress: Goal Met Goal 4:: Patient will asc/desc 8' recip with 1 HR I Goal Progress: Goal Met - Plan Plan: Discharge to I hep - D/C Information If there are questions or concerns regarding this patient's physical therapy, please feel free to call me at [phone]. Thank you for the referral of this patient. Sincerely, Jo Jenkins
--- NOTE | 2017-12-03 14:39 | HP.OTDCSUM_ITS ---
HP - OT D/C Summary It has been my pleasure to treat TATE SINGH under orders from ADELINE RoblesC, for the diagnosis of ICH for a total of 6 visit(s). Please see the following information for a summary of their discharge status. - Objective Objective/Function: monofilament 3.22 R digits 1, 2, 3. 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 Goal:: Pt will demonstrate decreased pain R shoulder 10 by d/c from OT services. Goal:: Pt will increase coordination and dexterity skills to manipulate fasteners independently and be able to write his signature legibly in 3/4 trials. Goal:: Pt will progress with R UE hand sensation to a 3.22 on monofilament test by d/c from OT services. Goal:: Pt will be able to tie shoes independently within an appropriate time frame in 3/4 trials. Goal:: Pt will be educated on HEP for R UE w/ good understanding and demo 100%x. Goal:: Pt will be educated on adaptive techniques and compensatory strategies to assist w/ BADL's/IADLs w/ good understanding and demo 100%x. - Plan Plan: d/c OT services - D/C Information Discharge Comments: Pt has made good progress with OT goals. Pt has progressed with R hand coordination skills and able to tie shoes independently with a strong knot. monofilament 3.22 R digits 1, 2, 3. Nine hole peg test 28 seconds R hand. Pt continues to have numbness/tingling R hand that is inconsistant and comes and goes as well as pain. Pt education to keep using R hand for all functional activities. Pt able to legibly write his name and signature and manipulate fasteners independently. Pt no longer requires skilled OT services. Pt d/c OT services at this time. If there are questions or concerns regarding this patient's occupational therapy , please fell free to call me at [phone]. Thank you for the referral of this patient. Sincerely, Angeli Mendez
== END 2017-12-03 14:51 | disposition home or self-care (01) ==
LOC: PT 13:00
PROVIDERS: Family Provider Preventive Medicine Occupational Medicine; PCP Preventive Medicine Occupational Medicine; Visit Provider Nurse Practitioner Acute Care
DX: I61.8 Other nontraumatic intracerebral hemorrhage (principal)
CPT/HCPCS: 97110; 97112; 97162; 97164; 97166; 97530

== ENCOUNTER 2018-06-10 11:00 | Outpatient (RCR) | payer MEDICAID, SELFPAY ==
--- NOTE | 2018-05-13 12:03 | HP.PTEVAL_ITS ---
Patient's Visit Information TATE SINGH is a 43 year old M referred to Physical Therapy by Harpal Kwok DO with a diagnosis of POST-OP LEFT KNEE MEDIAL AND LATERAL MENISCUS REPAIR. Date of Evaluation: 05/13/18 Physical Therapist: Mark Good PT, Cert MDT, OCS - Visit Plan Frequency: 2x /Week Duration: 4 Weeks Plan: PRECAUTION: h/o CVA. RTC/SCAPULAR STRENGTHENING,POSTURAL EX'S ,MODLATIES ,RPM - Subjective Findings: This 43 y/o male presents to physical therapy with decrease ROM Right Shoulder. Patient had recent CVA 4 months ago affected right side with larger hemmorage temporal/parietal.Patient has uncontrollable HTN. Patient had PT/OT thus is d/c . Patient most recent developed right shoulder pain. Pain affects ADL'S ,function and activities above 90 degrees. Pain affects sleeping. Patient c/o CUMMINGS. Patient c/o parathesia/tingling right UE. Patient has had another CVA at 24 y/o. Patient symptoms of shoulder affect QOL and function. SOCIAL: single. VOCATION: disablity - Pain Right Shoulder Pain Intensity (Out of 10): 6 Pain Intensity Range: 10 - Objective POSTURE:mild foward posture ,shoulder slightly depressed. PALPATION: unremarkable. NEURO: c/o parathesia lateral deltoid. AROM: shoulder flexion 160 ,abd 150 degrees,ER 90,IR 75 DEGREES. SCAPULAR-HUMERAL FUNCTION:1:1. CA PSULAR : WNL. MMT: RTC supraspinatous,infraspinatous 4-/5,deltoid 4-/5 pain. FUNCTIONAL :IR l2,ER C6 - Special Tests R Shoulder External Rotation Lag Test - RC Tear: Negative R Shoulder Supine Impingement Test - RC Tear: Negative R Shoulder Lift Off Test - Subscapular Tear: Negative R Shoulder Drop Sign - IS Test: Negative R Shoulder Empty Can - SS: Positive R Shoulder Belly Press - SupScap: Negative R Shoulder Neer - Impingement: Positive R Shoulder Flores Emilio - Impingement: Positive R Shoulder Sulcus Sign - Inferior Laxity: Negative R Shoulder Shrug Sign - OA/Adhesive Capsulitis: Negative - Goals Goal 1:: Independant with HEP Goal Time Frame: 4-6 Weeks Goal 2:: Independant with posture for ADL'S Goal Time Frame: 4-6 Weeks Goal 3:: Decrease shoulder pain by 50 % or greater to improve function with ADL'S Goal Time Frame: 4-6 Weeks Goal 4:: Patient to increase strength of right shoulder 4/5 to improve function. Goal Time Frame: 4-6 Weeks Goal 5:: Patient to improve dash shoulder ANGELLA score by 5-10 points to improve QOL. Goal Time Frame: 4-6 Weeks - Rehabilitation Potential Physical Therapy Diagnosis: This patient had CVA hemmorage 4 months ago with full recovery and comorbities with uncontrolled HTN along with pain ,weakness right shoulder impairs ADL'S Rehabilitation Potential: Good - Anticipated Interventions Patient/Client Instruction: Educate patient on: Condition, Plan of Care For the Purpose of:: To decrease pain, To increase ROM, To improve muscle performance and motor function, To improve ability to perform ADL's, To increase tolerance to activity/condition/position, To improve ability of physical actions for home/community/work/leisure, To improve health of tissue, To decrease soft tissue restriction, To increase flexibility/ROM, To improve health and function, To improve ability to perform tasks related to life management Therapeutic Exercise to Include: Strength training, Postural training, Active ROM Comment: RTC For the Purpose of:: To decrease pain, To increase ROM, To improve muscle performance and motor function, To improve ability to perform ADL's, To increase tolerance to activity/condition/position, To improve ability of physical actions for home/community/work/leisure, To improve health of tissue, To decrease soft tissue restriction, To improve ability to perform tasks related to life management TENS: Yes IF ES: Yes Cryotherapy (ice pack, ice massage): Yes Thermo therapy (hot pack): Yes Ultrasound (thermal/non thermal): Yes For the Purpose of:: To decrease pain, To improve nutrient delivery to tissue, To increase oxygenation perfusion, To improve health of tissue, To decrease soft tissue restriction Thank you for the opportunity to evaluate your patient. For Medicare and Medicare HMO plans, please review the plan of care and approve it. It will need to be FAXED BACK to us at [phone] for Medicare purposes. For Medicare only, by signing this I certify the plan of care. Please let me know if there are questions or concerns regarding this plan of care. Physician Signature: Date:
--- NOTE | 2018-05-13 14:04 | HP.PTEVAL_ITS ---
Patient's Visit Information TATE SINGH is a 43 year old M referred to Physical Therapy by Harpal Kwok DO with a diagnosis of LOSS OF ROM RIGHT SHOULDER. Date of Evaluation: 05/13/18 Physical Therapist: Mark Good PT, Cert MDT, OCS - Visit Plan Frequency: 2x /Week Duration: 4 Weeks Plan: PRECAUTION: h/o CVA. RTC/SCAPULAR STRENGTHENING,POSTURAL EX'S ,MODLATIES ,RPM - Subjective Findings: This 43 y/o male presents to physical therapy with decrease ROM Right Shoulder. Patient had recent CVA 4 months ago affected right side with larger hemmorage temporal/parietal.Patient has uncontrollable HTN. Patient had PT/OT thus is d/c . Patient most recent developed right shoulder pain. Pain affects ADL'S ,function and activities above 90 degrees. Pain affects sleeping. Patient c/o CUMMINGS. Patient c/o parathesia/tingling right UE. Patient has had another CVA at 24 y/o. Patient symptoms of shoulder affect QOL and function. SOCIAL: single. VOCATION: disablity - Pain Right Shoulder Pain Intensity (Out of 10): 6 Pain Intensity Range: 10 - Objective POSTURE:mild foward posture ,shoulder slightly depressed. PALPATION: unremarkable. NEURO: c/o parathesia lateral deltoid. AROM: shoulder flexion 160 ,abd 150 degrees,ER 90,IR 75 DEGREES. SCAPULAR-HUMERAL FUNCTION:1:1. CAPSULAR : WNL. MMT: RTC supraspinatous,infraspinatous 4-/5,deltoid 4-/5 pain. FUNCTIONAL :IR l2,ER C6 - Special Tests R Shoulder External Rotation Lag Test - RC Tear: Negative R Shoulder Supine Impingement Test - RC Tear: Negative R Shoulder Lift Off Test - Subscapular Tear: Negative R Shoulder Drop Sign - IS Test: Negative R Shoulder Empty Can - SS: Positive R Shoulder Belly Press - SupScap: Negative R Shoulder Neer - Impingement: Positive R Shoulder Flores Emilio - Impingement: Positive R Shoulder Sulcus Sign - Inferior Laxity: Negative R Shoulder Shrug Sign - OA/Adhesive Capsulitis: Negative - Goals Goal 1:: Independant with HEP Goal Time Frame: 4-6 Weeks Goal 2:: Independant with posture for ADL'S Goal Time Frame: 4-6 Weeks Goal 3:: Decrease shoulder pain by 50 % or greater to improve function with ADL'S Goal Time Frame: 4-6 Weeks Goal 4:: Patient to increase strength of right shoulder 4/5 to improve function. Goal Time Frame: 4-6 Weeks Goal 5:: Patient to improve dash shoulder ANGELLA score by 5-10 points to improve QOL. Goal Time Frame: 4-6 Weeks - Rehabilitation Potential Physical Therapy Diagnosis: This patient had CVA hemmorage 4 months ago with full recovery and comorbities with uncontrolled HTN along with pain ,weakness right shoulder impairs ADL'S Rehabilitation Potential: Good - Anticipated Interventions Patient/Client Instruction: Educate patient on: Condition, Plan of Care For the Purpose of:: To decrease pain, To increase ROM, To improve muscle performance and motor function, To improve ability to perform ADL's, To increase tolerance to activity/condition/position, To improve ability of physical actions for home/community/work/leisure, To improve health of tissue, To decrease soft tissue restriction, To increase flexibility/ROM, To improve health and function, To improve ability to perform tasks related to life management Therapeutic Exercise to Include: Strength training, Postural training, Active ROM Comment: RTC For the Purpose of:: To decrease pain, To increase ROM, To improve muscle performance and motor function, To improve ability to perform ADL's, To increase tolerance to activity/condition/position, To improve ability of physical actions for home/community/work/leisure, To improve health of tissue, To decrease soft tissue restriction, To improve ability to perform tasks related to life management TENS: Yes IF ES: Yes Cryotherapy (ice pack, ice massage): Yes Thermo therapy (hot pack): Yes Ultrasound (thermal/non thermal): Yes For the Purpose of:: To decrease pain, To improve nutrient delivery to tissue, To increase oxygenation perfusion, To improve health of tissue, To decrease soft tissue restriction Thank you for the opportunity to evaluate your patient. For Medicare and Medicare HMO plans, please review the plan of care and approve it. It will need to be FAXED BACK to us at [phone] for Medicare purposes. For Medicare only, by signing this I certify the plan of care. Please let me know if there are questions or concerns regarding this plan of care. Physician Signature: Date:
--- NOTE | 2018-08-23 10:26 | HP.PTDCSUM ---
HP - PT D/C Summary It has been my pleasure to treat TATE SINGH under orders from Harpal Kwok DO, for the diagnosis of LOSS OF ROM RIGHT SHOULDER for a total of 7 visit(s). Discharge Date: 06/10/18 Please see the following information for a summary of their discharge status. - Subjective Subjective: Doing alot better.. pain is overall better - Pain Right Shoulder Pain Intensity (Out of 10): 5 - Overall Improvement % Improvement: 80 - Objective Objective/Function: POSTURE: mild foward posture. NEURO: denies parathesia/tingling. AROM: shoulder flexion 160 degrees ,abd 15O degrees ,ER 90 pain at end range. MMT: RTC 4/5,DELTOID 4-/5. + IMPEMGEMENT - Goals Goal 1:: Independant with HEP Goal Progress: Goal Met Goal 2:: Independant with posture for ADL'S Goal Progress: Goal Met Goal 3:: Decrease shoulder pain by 50 % or greater to improve function with ADL'S Goal 4:: Patient to increase strength of right shoulder 4/5 to improve function. Goal Progress: Goal Met Goal 5:: Patient to improve dash shoulder ANGELLA score by 5-10 points to improve QOL. Goal Progress: Progressing - Plan Plan: D/C TO HEP - D/C Information Discharge Comments: HEP If there are questions or concerns regarding this patient's physical therapy, please feel free to call me at [phone]. Thank you for the referral of this patient. Sincerely, Mark Good, PT, Cert MDT, OCS
== END 2018-06-10 19:00 | disposition home or self-care (01) ==
LOC: PT 11:00
PROVIDERS: Family Provider Preventive Medicine Occupational Medicine; PCP Preventive Medicine Occupational Medicine; Referring Provider Preventive Medicine Occupational Medicine; Visit Provider Preventive Medicine Occupational Medicine
DX: M25.611 Stiffness of right shoulder, not elsewhere classified (principal)
CPT/HCPCS: 97110; 97162; 97530

== ENCOUNTER → 2018-10-19 | Outpatient (CLI) | payer MEDICAID, SELFPAY ==
[2018-10-19 10:55] LABS: Absolute Lymphocyte Count 2.36 X10^3/ul (0.83-4.51); Absolute Neutrophil Count 2.9 X10^3/uL (2.0-7.7); Basophil# 0.06 X10^3/uL; Eosinophil# 0.39 X10^3/uL; Eosinophils% 6.3 % (0-5); Hematocrit 42.8 % (40-54); Hemoglobin 15.4 g/dl (13.0-16.5); Lymphocyte # 2.36 X10^3/ul (4.0); Lymphocyte % 37.8 % (19-41); Mean Corpuscular Hgb 30.2 pg (27.0-32.0); Mean Corpuscular Volume 83.9 fL (80-94); Mean Platelet Vol. 9.6 fl (6.2-12.0); Monocyte# 0.52 X10^3/uL; Monocyte% 8.3 % (0-10); Neutrophil # 2.87 X10^3/uL (2.7-7.7); Platelet Count 232 K/mm3 (150-450); RBC Distribution Width CV 13.1 % (11.6-14.6); RBC Distribution Width SD 39.9 fl (35.1-43.9); White Blood Count 6.2 K/mm3 (4.4-11.0)
[2018-10-19 10:56] LABS: POSITIVE COUNT NO; POSITIVE DIFFERENTIAL NO; POSITIVE MORPHOLOGY NO
[2018-10-19 11:31] LABS: Vitamin B12 349 pg/mL (211-911); Vitamin D,25 Hydroxy 25.4 ng/mL (29.95-100.01)
[2018-10-19 11:39] LABS: ALB/GLOB Ratio 1.1 RATIO (0.9-2.4); AST(SGOT) 16 U/L (15-37); Alanine Aminotransfer ALT/SGPT 30 U/L (16-61); Albumin, Serum 3.9 g/dL (3.2-5.0); Alkaline Phosphatase 86 U/L (45-117); Anion Gap 6 (5-15); BUN 9 mg/dL (7-18); BUN/Creat Ratio 8.7 RATIO (10-20); Bilirubin, Direct 0.11 mg/dL (0.00-0.30); Calcium,Total 8.7 mg/dL (8.5-10.1); Chloride 104 mmol/L (98-107); Cholesterol 169 mg/dL (200); Creatinine, Serum 1.04 mg/dL (0.70-1.30); EST Glomerular Filtration Rate 83 mL/min (>60); Est Glom Filt Rate - Afr Amer 101 mL/min (>60); Globulin 3.5 g/dL (2.2-4.2); Glucose 88 mg/dL (74-106); High Density Lipoprotein 34 mg/dL; Potassium 3.3 mmol/L (3.5-5.1); Protein, Total 7.4 g/dL (6.4-8.2); Sodium Level 139 mmol/L (136-145); Thyroid Stim Hormone (TSH) 0.92 uIU/mL (0.358-3.74); Triglycerides 73 mg/dL; Very Low Density Lipoprotein 15 mg/dL (5-40)
== END | disposition home or self-care (01) ==
LOC: LAB 10:29
PROVIDERS: Family Provider Preventive Medicine Occupational Medicine; PCP Preventive Medicine Occupational Medicine; Referring Provider Nurse Practitioner Family; Visit Provider Nurse Practitioner Family
DX: E55.9 Vitamin D deficiency, unspecified (principal); F32.9 Major depressive disorder, single episode, unspecified; R53.83 Other fatigue; Z86.73 Personal history of transient ischemic attack (TIA), and cerebral infarction without residual deficits
CPT/HCPCS: 36415; 80053; 80061; 82248; 82306; 82607; 84443; 85025

== ENCOUNTER → 2018-10-28 | Outpatient (CLI) | payer MEDICAID, SELFPAY ==
--- NOTE | 2018-10-28 11:00 | MRI_ITS ---
STUDY: MRI BRAIN WITH AND WITHOUT CONTRAST REASON FOR EXAM: Male, 43 years old. Complaints of right-sided [id number]. TECHNIQUE: Standardized multiplanar fat and water weighted pulse sequences were obtained. 20 IV Dotarem was administered for the contrast portion of the examination. COMPARISON: [address] head FINDINGS: Normal size of the ventricles and extra-axial spaces for the patient's age. There is residual left sellar insular region of low T1 and high T2 signal and volume loss consistent with previous intraparenchymal bleed on 28 October 2017 consistent with CSF fluid. There is no evidence for recent intracranial ischemia or other cause of cytotoxic edema on diffusion weighted imaging (DWI). Normal T2* images of the brain without demonstrated susceptibility artifact. There is no demonstrated hemosiderin stain. Normal bilateral basal ganglia. Normal thalami. There is no extra-axial fluid accumulation. Normal flow voids within the major intracranial circulation suggesting patency by spin echo criteria. Normal venous enhancement. There is no enhancing intra-axial or extra-axial abnormality. Normal sella turcica, pituitary gland, infundibular stalk, optic chiasm and hypothalamus. Normal tectal plate and pineal gland. Normal midbrain, mary carmen and medulla. Normal cerebellum. Normal basal cisterns. Normal bilateral temporal bones. Normal bilateral internal auditory canals. No demonstrated orbital abnormality, within the constraints of a routine brain study. Normal visualized paranasal sinuses. Normal calvarium and skull base. Normal visualized soft tissue structures. Normal visualized upper cervical spine. MRI/Brain W/WO Contrast IMPRESSION: 1. No evidence of acute intracranial bleed, mass or ischemia. There is sequela of volume loss and CSF fluid within the left subinsular ribbon from previous intraparenchymal bleed noted on 23 October 2017. Electronically Signed: Lance Monroe DO at 13:19 EDT , Service support ,
== END | disposition home or self-care (01) ==
LOC: MRI 10:45
PROVIDERS: Family Provider Preventive Medicine Occupational Medicine; PCP Preventive Medicine Occupational Medicine; Referring Provider Nurse Practitioner Family; Visit Provider Nurse Practitioner Family
DX: Z86.73 Personal history of transient ischemic attack (TIA), and cerebral infarction without residual deficits (principal)
CPT/HCPCS: 70553; A9575

== ENCOUNTER 2019-04-25 05:27 | Day surgery (SDC) | payer MEDICAID, SELFPAY ==
--- NOTE | 2019-04-13 09:45 | EKG12_ITS ---
Test Reason : PREOP Blood Pressure : / mmHG Vent. Rate : 078 BPM Atrial Rate : 078 BPM P-R Int : 150 ms QRS Dur : 096 ms QT Int : 390 ms P-R-T Axes : 032 -16 -21 degrees QTc Int : 444 ms Normal sinus rhythm Nonspecific ST and T wave abnormality Abnormal ECG Confirmed by MARVIN SUAREZ ([id number]), technical editor LAINA BEACH ([id number]) on 04/15/2019 11:29:36 AM Referred By: Francisco Hoang Confirmed By:MARVIN SUAREZ
[2019-04-13 09:52] LABS: Hemoglobin 16.4 g/dL (13.0-16.5); Mean Corp Hgb Conc 35.7 g/dL (32-36); Mean Corpuscular Hgb 29.5 pg (27.0-32.0); Mean Corpuscular Volume 82.9 fL (80-94); Mean Platelet Vol. 9.2 fl (6.2-12.0); Platelet Count 323 K/mm3 (150-450); RBC Distribution Width CV 12.3 % (11.6-14.6); RBC Distribution Width SD 37.2 fl (35.1-43.9); Red Blood Count 5.55 M/mm3 (4.6-6.2); White Blood Count 8.6 K/mm3 (4.4-11.0)
[2019-04-13 10:13] LABS: Anion Gap 6 (5-15); BUN 9 mg/dL (7-18); BUN/Creat Ratio 6.7 RATIO (10-20); Calcium,Total 9.2 mg/dL (8.5-10.1); Chloride 100 mmol/L (98-107); Creatinine, Serum 1.34 mg/dL (0.70-1.30); EST Glomerular Filtration Rate 62 mL/min (>60); Est Glom Filt Rate - Afr Amer 75 mL/min (>60); Glucose 89 mg/dL (74-106); Sodium Level 139 mmol/L (136-145)
[2019-04-25 06:23] VITALS: BP 136/101; PULSE 82; RESP 16; TEMP 36.7; O2SAT 98; BMI 28.9
[2019-04-25] MEDS: Lactated Ringers 1,000 ML 100 ML IV ×2 (06:47→09:28)
[2019-04-25] MEDS: Cefazolin 2 GM in 0.9% Normal Saline 100 ML IV (07:15)
[2019-04-25] MEDS: Epinephrine (1 mg/ml) 1 MG/ML VIAL ×2 (08:10→09:07)
[2019-04-25] MEDS: Bupiv/Epi 0.25% 30 ML Vial (08:42)
[2019-04-25] MEDS: Ketorolac 15 MG/ML Vial IV (08:58)
[2019-04-25 09:03] VITALS: BP 136/101; BP 148/100; PULSE 91; RESP 16; TEMP 36.6; O2SAT 94
[2019-04-25 09:15] VITALS: BP 136/101; BP 148/101; PULSE 96; RESP 16; O2SAT 93
[2019-04-25 09:18] VITALS: BP 136/101; BP 142/102; PULSE 92; RESP 16; O2SAT 93
[2019-04-25 09:41] VITALS: BP 136/101; BP 142/100; PULSE 94; RESP 16; TEMP 36.8; O2SAT 92
[2019-04-25 11:13] VITALS: BP 136/101; BP 141/95; PULSE 94; RESP 16; TEMP 36.5; O2SAT 92
--- NOTE | 2019-04-25 13:23 | PCM.OPRPT ---
Report of Operation Date of Procedure: 04/25/19 Pre-Operative Diagnosis: Bicipital tendonitis and Impingement syndrome right shoulder Post-Operative Diagnosis: same with AC arthrosis Surgery/Procedure Performed:: ASD, Blayne procedure and biceps tenodesis metal numerical control programmer: Corby Shen Type of Anesthesia:: General/Regional Anesthesiologist: Shaka Gordon - Admlizeth VTE Documentation VTE Present on Admission: No VTE Mechan Device Prophylaxis: SCD's VTE Pharm Prophylaxis ordered?: No Reason prophylaxis not ordered:: Treatment Not Indicated
== END 2019-04-25 11:20 | disposition home or self-care (01) ==
LOC: SDC 05:28 → AC 05:29
PROVIDERS: Family Provider Preventive Medicine Occupational Medicine; PCP Preventive Medicine Occupational Medicine; Referring Provider Orthopaedic Surgery; Visit Provider Orthopaedic Surgery
PROC: (CPT 29827; principal; 2019-04-25 06:55)
DX: M75.21 Bicipital tendinitis, right shoulder (principal); M75.41 Impingement syndrome of right shoulder; I10 Essential (primary) hypertension; Z79.899 Other long term (current) drug therapy; G90.50 Complex regional pain syndrome I, unspecified; S43.491D Other sprain of right shoulder joint, subsequent encounter; X58.XXXD Exposure to other specified factors, subsequent encounter; R94.31 Abnormal electrocardiogram [ECG] [EKG]; G47.30 Sleep apnea, unspecified; I69.351 Hemiplegia and hemiparesis following cerebral infarction affecting right dominant side; K58.9 Irritable bowel syndrome, unspecified; F32.9 Major depressive disorder, single episode, unspecified
CPT/HCPCS: 29824; 29826; 29828; 64415; 36415; 80048; 85027; 93005; J7120; J2405

== ENCOUNTER → 2019-11-04 16:44 | Outpatient (CLI) | payer MEDICAID, SELFPAY | PROVIDERS: PCP Preventive Medicine Occupational Medicine; Referring Provider Otolaryngology; Visit Provider Otolaryngology | DX: J32.9 Chronic sinusitis, unspecified (principal) | CPT/HCPCS: 87070; 87205 ==

== ENCOUNTER → 2019-11-17 13:40 | Outpatient (CLI) | payer MEDICAID, SELFPAY ==
--- NOTE | 2019-11-17 13:42 | CT_ITS ---
STUDY: CT MAXILLOFACIAL SINUSES REASON FOR EXAM: Male, 44 years old. CHRONIC SINUSITIS BILAT, HX-CVA RADIATION DOSAGE (If Supplied By Facility): CTDIvol = ( 33.06 ) mGy, DLP = ( 858.64 ) mGycm TECHNIQUE: The patient was scanned in a multi detector CT scanner. High resolution axial imaging was performed without the administration of intravenous contrast material. Sagittal and coronal images were reconstructed. Individualized dose optimization techniques were used for this CT. COMPARISON: 04/08/2017. FINDINGS: FRONTAL SINUSES: Normal aeration, without mucosal inflammatory disease. ETHMOIDAL SINUSES: Mild mucosal thickening in the ethmoid sinuses, greater on the left. MAXILLARY SINUSES: Mild mucosal thickening bilaterally. SPHENOIDAL SINUSES: Normal aeration, without mucosal inflammatory disease. There is patency of the bilateral maxillary infundibuli with normal uncinate processes, ethmoid bullae, and hiatus semilunaris. Normal bilateral middle turbinates. Normal bilateral inferior turbinates. Normal midline nasal septum. There is patency of the bilateral nasal airways. Mastoid sinuses are clear. Visualized middle ear and inner ear structures are unremarkable. Temporomandibular joints are unremarkable. The visualized osseous structures are normal. The visualized bilateral orbital contents are normal. Chronic left basal ganglia lacunar infarct is noted. CT/Sinus/Facial Bone IMPRESSION: 1. Mild chronic maxillary and left ethmoid sinusitis. Otherwise negative study. Electronically Signed: Estelle Su MD at 23:55 EDT Tel , Service support ,
== END ==
PROVIDERS: PCP Preventive Medicine Occupational Medicine; Referring Provider Otolaryngology; Visit Provider Otolaryngology
DX: J32.9 Chronic sinusitis, unspecified (principal)
CPT/HCPCS: 70486

== ENCOUNTER 2020-09-25 11:02 | Day surgery (SDC) | payer MEDICAID, SELFPAY ==
--- NOTE | 2020-09-20 09:03 | EKG12_ITS ---
Test Reason : PREOP Blood Pressure : / mmHG Vent. Rate : 069 BPM Atrial Rate : 069 BPM P-R Int : 150 ms QRS Dur : 094 ms QT Int : 402 ms P-R-T Axes : 036 -12 014 degrees QTc Int : 430 ms Normal sinus rhythm Nonspecific T wave abnormality Abnormal ECG Confirmed by KEVIN ALLRED, MY ([id number]), scientific editor MARGA JORGENSEN ([id number]) on 09/20/2020 9:04:03 AM Referred By: Driss Kingsley Confirmed By:MY BROWN MD
[2020-09-25] VITALS (8 sets, daily range): BP systolic 143–156; BP diastolic 95–103; PULSE 67–79; RESP 16; TEMP 36.8–36.9; O2SAT 94–96; BMI 32.1
[2020-09-25] MEDS: Lactated Ringers 1,000 ML 100 ML IV ×2 (12:15→15:00)
[2020-09-25 12:19] LABS: Hematocrit 42.1 % (40-54); Hemoglobin 14.2 g/dL (13.0-16.5); Mean Corp Hgb Conc 33.7 g/dL (32-36); Mean Corpuscular Hgb 28.8 pg (27.0-32.0); Mean Corpuscular Volume 85.4 fL (80-94); Mean Platelet Vol. 9.7 fl (6.2-12.0); Platelet Count 241 K/mm3 (150-450); RBC Distribution Width CV 13.1 % (11.6-14.6); RBC Distribution Width SD 40.7 fl (35.1-43.9); Red Blood Count 4.93 M/mm3 (4.6-6.2); White Blood Count 7.5 K/mm3 (4.4-11.0)
[2020-09-25 12:30] LABS: Anion Gap 3 (5-15); BUN 10 mg/dL (7-18); BUN/Creat Ratio 8.1 RATIO (10-20); Calcium,Total 9.5 mg/dL (8.5-10.1); Chloride 105 mmol/L (98-107); Creatinine, Serum 1.24 mg/dL (0.70-1.30); EST Glomerular Filtration Rate 67 mL/min (>60); Est Glom Filt Rate - Afr Amer 82 mL/min (>60); Estimated Creatinine Clearance 84.31 ml/min; Glucose 98 mg/dL (74-106); Potassium 3.6 mmol/L (3.5-5.1); Sodium Level 139 mmol/L (136-145)
--- NOTE | 2020-09-25 13:00 | ETH_PTH ---
PATIENT: TATE SINGH LOC: [facility] [place] U#:[id number] AGE/SX: 45/M ROOM: RE09/25/[address]: Dr. Yeison Kingsley MD : 1975 BED: DIS: 09/25/2020 SPEC #: [id number] RECD: 09/26/20 11:37 STATUS: YOLY RENeli #: [id number] NICOLAS: 09/25/20 13:[address]: Yeison Kingsley DEPT: SURGICAL PATHOLOGY RECD BY: June Ravi ENTERED: 09/26/20 11:38 SP TYPE: ETH TISS OTHR DR: Dr. Harpal Kwok DO Tissues: A - Ethmoid sinus, NOS B - Ethmoid sinus, NOS Procedures: Decalcification bone/plaque Surgery Specimen Level IV HEADER OPERATION: Functional endoscopic sinus surgery, Navigation PRE-OP DIAGNOSIS: Nasal congestion, nasal septal deviation, hypertrophy of inferior nasal turbinates, chronic pansinusitis, nasal bone fracture TISSUE SUBMITTED: A - Contents left maxillary and ethmoid sinus, B - Contents right maxillary and ethmoid sinus MICROSCOPIC DIAGNOSIS A. Left maxillary and ethmoid sinus contents: Fragments of respiratory mucosa including turbinate with chronic inflammation and bone. B. Right maxillary and ethmoid sinus contents: Fragments of respiratory mucosa including turbinate with mild chronic inflammation, fragments of benign squamous epithelium and bone. OSCAR:renny 10/01/2020 MICROSCOPIC DESCRIPTION Slides are reviewed. GROSS DESCRIPTION A - Received in fixative is one container labeled with the patient's name and designated contents left maxillary and ethmoid sinus. The specimen consists of multiple fragments of hemorrhagic soft tissue mixed with fragments of bone and a piece of turbinate measuring in aggregate 7.5 x 3 x 0.3 cm. The entire specimen is submitted in three cassettes after decalcification. B - Received in fixative is one container labeled with the patient's name and designated contents right maxillary and ethmoid sinus. The specimen consists of multiple fragments of hemorrhagic soft tissue mixed with fragments of bone and a piece of turbinate measuring in aggregate 7.5 x 3 x 0.3 cm. The entire specimen is submitted in three cassettes after decalcification. / OSCAR:renny 09/26/20 TC:3 CPT: 21351 x2, 94244 x2
--- NOTE | 2020-09-25 13:12 | PCM.DC ---
Discharge Instructions Diet Discharge Diet: No restrictions Activity Discharge Activity: May not drive while taking narcotic pain medications. Dressing / Incision Call your doctor if your incision/area has: Foul Smelling Discharge Additional Dressing/Incision Instructions:: sleep with head of bed elevated. irrigate both nostrils 5 times daily. mupirocin to the incision and both nostrils twice daily. keep the bridge of the nose dry. the day of the follow up appointment, get the cast and nose very wet so it comes off easily in clinic. Follow Up Care Please Follow Up With: Driss Kingsley MD When: 1 week Test Results: Test results from this visit will be discussed in further detail at your follow-up appointment, if applicable. Discharge Plan Admission Attending Provider: Driss Kingsley Primary Care Provider: Harpal Kwok Discharge Orders/Prescriptions Prescriptions: No Action oxycodone-acetaminophen 1 TABLET tablet 1 - 2 tab PO Q6H PRN PRN (Reason: Pain) RF: 0 fluoxetine 10 MG capsule 60 mg PO DAILY RF: 0 verapamil 120 mg Tablet Extended Release 120 mg PO QHS RF: 0 aspirin [Aspir-81] 81 mg Tablet,Delayed Release (Dr/Ec) 81 mg PO DAILY RF: 0 pantoprazole 40 mg Tablet,Delayed Release (Dr/Ec) 40 mg PO DAILY RF: 0 gabapentin 300 mg Capsule 300 mg PO QHS RF: 0 pravastatin 20 mg Tablet 20 mg PO QHS RF: 0 hydrochlorothiazide 25 mg Tablet 25 mg PO DAILY RF: 0 gabapentin 100 mg Tablet 100 mg PO BID RF: 0 tizanidine 4 mg Capsule 8 mg PO QHS RF: 0 potassium chloride 20 mEq Tablet Extended Release 40 meq PO DAILY RF: 0 dicyclomine 10 mg Capsule 10 mg PO BID PRN (Reason: ibs) RF: 0 Referrals / Follow Up: Harpal Kwok DO [Primary Care Provider] -
--- NOTE | 2020-09-25 13:15 | PCM.OPRPT ---
Problems Associated Problem List Diagnoses (1) Nasal congestion: (2) Nasal septal deviation: (3) Hypertrophy of inferior nasal turbinate: (4) Chronic pansinusitis: (5) Nasal bone fracture: Report of Operation Date of Procedure: 09/25/20 Pre-Operative Diagnosis: 1. nasal congestion 2. nasal septal deviation 3. nasal bone fracture 4. inferior turbinate hypertrophy, right and left 5. chronic pansinusitis Post-Operative Diagnosis: 1. nasal congestion 2. nasal septal deviation 3. nasal bone fracture 4. inferior turbinate hypertrophy, right and left 5. chronic pansinusitis Surgery/Procedure Performed:: 1. endoscopic maxillary antrostomy with removal of contents, right and left 2. endoscopic total ethmoidecotmy, right and left 3. endoscopic sphenoidotomy with removal of contents, right and left 4. endoscopic frontal sinus exploration removal of contents, right and left 5. open septorhinoplasty 6. submucous resection inferior turbinates, right and left 7. open correction nasal bone fracture Type of Anesthesia: General Description of Procedure: On the day of the procedure, after appropriate informed consent was obtained, the patient was brought to the operating room and placed in a supine position on the operating room table. The patient was placed under general endotracheal anesthesia by the anesthesiologist. The endotracheal tube was secured. The eyes were taped. The table was rotated 90 degrees towards the surgeon. Lacri-Lube was placed in the eyes and Tegaderm was placed over the eyes. The nose was injected with 1% lidocaine with epinephrine. The face was prepped and draped in sterile fashion. An inverted-V columellar incision was made with a Dooly blade. This traversed into the left and right marginal incisions in the nose. It was opened with three-point retraction and an Iris scissors. The left and right lower lateral cartilages were skeletonized. This was taken to the left scroll region and the left upper lateral cartilages were skeletonized as was the right scroll region and right upper lateral cartilage. The anterior septal angle was found by lateralizing the medial crura. However, it was severely deviated to the left and off the maxillary crest. This was carefully dissected using the [place]-tip Bovie. The submucoperichondrial flaps were created with the Jevon elevator, first on the left and then the right posteriorly to the bony cartilaginous junction and inferiorly to the maxillary crest. Posteriorly, the patient had a large 2-cm bony spur that impinged into the maxillary natural os. Anteriorly, the patient had a very severe right to mid septal deviation. It was nearly occluding the nasal airway. A Jevon elevator was used to disarticulate the bony cartilaginous junction. A #15 blade was used to disarticulate the left and then right upper lateral cartilage which significantly destabilized the nose. A 1 cm strut was maintained off the keystone area which was still stable and the Jevon elevator and a D-knife were used to remove the remainder of the septum. This was reshaped and sutured and fashioned to perform an anterior septal reconstruction and saved for future use. The deviated portions of the perpendicular plate of the ethmoid bone and vomer were removed using a Jason-Deshpande including the large right-sided septal spur. The head of the right and left inferior turbinates were injected with 1% lidocaine with epinephrine. The head of the left inferior turbinate was incised with a #15 blade. This was dissected submucosally using the [place] elevator, reduced using suction electrocautery, and outfractured using a Boies elevator. Similarly, on the right, the head of the right inferior turbinate was incised with a #15 blade. This was dissected submucosally using a [place] elevator, reduced using suction electrocautery, and outfractured using a Boies elevator. Anterior septal reconstruction was placed as a right-sided internal awning spreader graft. This was sutured between the nasal septum and right upper lateral cartilage using 4-0 PDS. This was also sutured to the maxillary crest in multiple points using 4-0 PDS. Additionally, a 2 mm x 1 cm internal awning spreader graft was placed on the left side and sutured with 4-0 PDS. At this point, the nose was significantly re-stabilized. Multiple dermal sutures were used to refashion the nasal tip for stability to prevent collapse and a 5 mm x 2 mm columellar strut was used to prevent collapse. The submucoperichondrial flaps were closed with numerous 4-0 chromic sutures several incorporating the anterior septal reconstruction. The inverted-V columellar incision was closed with 7-0 Vicryl and the marginal incisions with interrupted 4-0 chromic. The nose was irrigated with normal saline. the zero degree endoscope was used to evaluate the nasal cavity. the superior attachment of the right and left middle turbinate and uncinate processes were injected with lidocaine/epinephrine. the left nasal cavity was evaluated. the middle turbinate was medialized. a maxillary antrostomy and uncinectomy were performed with a jevon elevator and a abran cut. the antrostomy was widened with a back-biter. the ethmoid bulla was entered bluntly with the suction. a total ethmoidectomy was performed with a curette and an upgoing blakesley. this was taken superiorly to the skull base and laterally to the lamina. a stankewicz maneuver was performed and no laminar defect was noted. the natural sphenoid os was widened with the microdebrider and contents were evacuated. the frontal recess was explored and contents were evacuated. hemostasis was achieved with suction cautery; anna was placed. the right nasal cavity was evaluated. the middle turbinate was medialized. a maxillary antrostomy and uncinectomy were performed with a jevon elevator and a abran cut. the antrostomy was widened with a back-biter. the ethmoid bulla was entered bluntly with the suction. a total ethmoidectomy was performed with a curette and an upgoing blakesley. this was taken superiorly to the skull base and laterally to the lamina. a stankewicz maneuver was performed and no laminar defect was noted. the natural sphenoid os was widened with the microdebrider and contents were evacuated. the frontal recess was explored and contents were evacuated. hemostasis was achieved with suction cautery; anna was placed. tsevens splints were sutured into place and a dorsal nasal splint was placed. a nasogastric tube was inserted orally and contents were evacuated. the table was rotated 90 degrees toward the anesthesiologist and was subsequently extubated uneventfully. he was transferred to the PACU in stable condition.
[2020-09-25] MEDS: Mupirocin Ointment 22gm Tube 1 APPLIC (14:00)
[2020-09-25] MEDS: Oxymetazoline 0.05% 1 SPRAY SPRAY.BTL 15 SPRAY (14:00)
[2020-09-25] MEDS: Lidocaine 1% /Epi 1:100 (20ml) 20 ML Vial (15:50)
== END 2020-09-25 18:14 ==
LOC: SDC 11:04 → AC 11:11
PROVIDERS: Anesthesiology; PCP Preventive Medicine Occupational Medicine; Referring Provider Otolaryngology; Visit Provider Otolaryngology
PROC: (CPT 30140; principal; 2020-09-25 12:30)
PROC: (CPT 30140; 2020-09-25 12:30)
DX: J32.4 Chronic pansinusitis (principal); S02.2XXA Fracture of nasal bones, initial encounter for closed fracture; X58.XXXA Exposure to other specified factors, initial encounter; J34.3 Hypertrophy of nasal turbinates; J34.2 Deviated nasal septum; R94.31 Abnormal electrocardiogram [ECG] [EKG]; K21.9 Gastro-esophageal reflux disease without esophagitis; G89.29 Other chronic pain; G25.81 Restless legs syndrome; H91.91 Unspecified hearing loss, right ear; G47.30 Sleep apnea, unspecified; Z79.899 Other long term (current) drug therapy; Z79.82 Long term (current) use of aspirin
CPT/HCPCS: 00160; 30140; 30420; 31253; 31267; 80048; 85027; 87426; 88305; 88311; 93005; C9803; J7120; J2405

== ENCOUNTER → 2020-12-20 14:59 | Outpatient (CLI) | payer MEDICAID, SELFPAY ==
[2020-09-25 12:06] VITALS: BMI 32.1
== END ==
PROVIDERS: PCP Preventive Medicine Occupational Medicine; Visit Provider Otolaryngology
DX: J32.9 Chronic sinusitis, unspecified (principal)
CPT/HCPCS: 87070; 87205

== ENCOUNTER → 2020-12-26 13:57 | Outpatient (CLI) | payer MEDICAID, SELFPAY ==
[2020-09-25 12:06] VITALS: BMI 32.1
--- NOTE | 2020-12-26 14:04 | RAD_ITS ---
STUDY: X-RAY - RIGHT KNEE REASON FOR EXAM: Male, 45 years old. CHRONIC PAIN SYNDROME TECHNIQUE: 4 view(s) of the knee. COMPARISON: None. FINDINGS: Normal visualized distal femur. Normal visualized proximal tibia and fibula. Normal proximal tibiofibular articulation. There is no demonstrated fracture. Normal medial femorotibial compartment. Normal lateral femorotibial compartment. Normal patellofemoral articulation. There is no demonstrated joint effusion. The soft tissue structures are unremarkable. RAD/Knee 4 or More Views IMPRESSION: Normal x-ray examination of the knee. Electronically Signed: Barrie Hernandez MD at 23:59 EDT , Service support ,
== END ==
PROVIDERS: PCP Preventive Medicine Occupational Medicine
DX: M19.011 Primary osteoarthritis, right shoulder (principal); M46.96 Unspecified inflammatory spondylopathy, lumbar region; Z86.79 Personal history of other diseases of the circulatory system; Z79.899 Other long term (current) drug therapy; G43.909 Migraine, unspecified, not intractable, without status migrainosus; M54.12 Radiculopathy, cervical region; M54.2 Cervicalgia; M54.16 Radiculopathy, lumbar region; M51.36 Other intervertebral disc degeneration, lumbar region; M79.10 Myalgia, unspecified site; G89.4 Chronic pain syndrome
CPT/HCPCS: 73564

== ENCOUNTER → 2021-11-11 | Outpatient (CLI) | payer MEDICAID, SELFPAY ==
--- NOTE | 2021-11-11 12:19 | US_ITS ---
STUDY: SCROTUM ULTRASOUND REASON FOR EXAM: Male, 46 years old. LEFT GROIN PAIN TECHNIQUE: Ultrasound evaluation of the scrotum was performed with color Doppler and static hayes-scale imaging. COMPARISON: None. FINDINGS: RIGHT TESTICLE INTRATESTICULAR: There is a normal size of the right testicle. The right testicle measures 5.1 x 3.4 cm. There is a homogenous echotexture. There is normal arterial and normal venous vascularity. There is no demonstrated right testicular mass or cyst. EXTRATESTICULAR: The epididymis is normal in size. The epididymis head measures 1.3 cm. There is normal vascularity of the epididymis. There is no demonstrated epididymal cystic structure. There is a small hydrocele. There is no demonstrated varicocele. There is no demonstrated extratesticular mass or cyst. LEFT TESTICLE INTRATESTICULAR: There is a normal size of the left testicle. The left testicle measures 5 x 3.3 cm. There is a homogenous echotexture. There is normal arterial and normal venous vascularity. There is no demonstrated left testicular mass or cyst. EXTRATESTICULAR: The epididymis is normal in size. The epididymis head measures 1.3 cm. There is normal vascularity of the epididymis. Heterogeneous epididymis. There is no demonstrated epididymal cystic structure. There is no demonstrated hydrocele. There is no demonstrated varicocele. There is no demonstrated extratesticular mass or cyst. US/Testicular with Arterial Flow IMPRESSION: Small right hydrocele. There are no acute findings of the bilateral testicles without evidence for torsion. Heterogeneous left epididymis. However, there is normal vascularity. Question mild epididymitis. Electronically Signed: Hector Jo MD at 16:03 EDT ,
== END | disposition home or self-care (01) ==
LOC: US 12:18
PROVIDERS: PCP Preventive Medicine Occupational Medicine; Referring Provider Nurse Practitioner Primary Care; Visit Provider Nurse Practitioner Primary Care
DX: N50.812 Left testicular pain (principal)
CPT/HCPCS: 76870; 93976

== ENCOUNTER → 2023-10-19 | Outpatient (CLI) | payer MEDICAID, SELFPAY ==
--- NOTE | 2023-10-19 10:25 | US_ITS ---
STUDY: SCROTUM ULTRASOUND REASON FOR EXAM: Male, 48 years old. R TESTI PAIN TECHNIQUE: Ultrasound evaluation of the scrotum was performed with color Doppler and static hayes-scale imaging. COMPARISON: None. FINDINGS: RIGHT TESTICLE INTRATESTICULAR: There is a normal size of the right testicle. The right testicle measures 4.9 cm x 3.7 cm x 2.6 cm. There is a homogenous echotexture. There is normal arterial and normal venous vascularity. There is no demonstrated right testicular mass or cyst. EXTRATESTICULAR: The epididymis is normal in size. The epididymis head measures 1.1 cm x 1.4 cm x 1.1 cm. There is normal vascularity of the epididymis. There is no demonstrated epididymal cystic structure. There is no demonstrated hydrocele. There is no demonstrated varicocele. There is no demonstrated extratesticular mass or cyst. LEFT TESTICLE INTRATESTICULAR: There is a normal size of the left testicle. The left testicle measures 5 cm x 3.6 x 2.9 cm. There is a homogenous echotexture. There is normal arterial and normal venous vascularity. There is no demonstrated left testicular mass or cyst. EXTRATESTICULAR: The epididymis is normal in size. The epididymis head measures 0.5 cm x 1.2 cm x 1.0 cm. There is normal vascularity of the epididymis. There is no demonstrated epididymal cystic structure. There is no demonstrated hydrocele. There is no demonstrated varicocele. There is no demonstrated extratesticular mass or cyst. US/Testicular with Arterial Flow IMPRESSION: Normal bilateral testicles. Electronically Signed: Romaine Trinidad MD at 12:53 EDT ,
== END | disposition home or self-care (01) ==
LOC: US 10:22
PROVIDERS: PCP Preventive Medicine Occupational Medicine; Referring Provider Preventive Medicine Occupational Medicine; Visit Provider Preventive Medicine Occupational Medicine
DX: N50.811 Right testicular pain (principal)
CPT/HCPCS: 76870; 93976

== ENCOUNTER → 2024-03-19 | Outpatient (CLI) | payer MEDICAID, SELFPAY ==
--- NOTE | 2024-03-19 07:49 | MRI_ITS ---
EXAM: MR RIGHT LOWER EXTREMITY WITHOUT INTRAVENOUS CONTRAST, KNEE CLINICAL INDICATION: pain TECHNIQUE: Multiplanar and multisequence MR images of the right knee without intravenous contrast. COMPARISON: Right knee radiographs, 02/29/2024. FINDINGS: BONES/JOINTS: Shallow trochlea indicating trochlear dysplasia. No bone marrow signal abnormality is otherwise identified. No fracture or dislocation. EXTENSOR MECHANISM: No significant abnormality. MEDIAL MENISCUS: No significant abnormality. LATERAL MENISCUS: No significant abnormality. MEDIAL CAPSULE/SUPPORTING STRUCTURES: No significant abnormality. Intact. LATERAL CAPSULE/SUPPORTING STRUCTURES: No significant abnormality. Lateral collateral ligamentous complex, inclusive of the popliteal tendon, are intact. ANTERIOR CRUCIATE LIGAMENT: No significant abnormality. Intact. POSTERIOR CRUCIATE LIGAMENT: No significant abnormality. Intact. MUSCLES: No significant abnormality. CARTILAGE: Near full-thickness chondral fissuring in the lateral retropatellar articular facet with diffuse chondral signal abnormality and subchondral edema. FLUID: No significant abnormality. No joint effusion. OTHER SOFT TISSUES: No significant abnormality. No popliteal cyst. 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 Electronically Signed: Mateo Canada DO at 13:58 EST ,
== END | disposition home or self-care (01) ==
LOC: MRI 07:48
PROVIDERS: PCP Preventive Medicine Occupational Medicine; Referring Provider Orthopaedic Surgery Sports Medicine; Visit Provider Orthopaedic Surgery Sports Medicine
DX: M25.561 Pain in right knee (principal)
CPT/HCPCS: 73721

== ENCOUNTER → 2024-11-15 | Outpatient (CLI) | payer MEDICAID, SELFPAY ==
--- NOTE | 2024-11-15 13:45 | MRI_ITS ---
PROCEDURE: UPPER EXT JOINT ONLY(ROUTINE) 11/15/2024 REASON FOR EXAM: PAIN, 2 PRIOR SURGERIES TECHNIQUE: T1, T2, PD, UPPER EXT JOINT ONLY(ROUTINE) Multiplanar and multisequence images were obtained without IV contrast administration. COMPARISON: October 25, 2024 x-ray FINDINGS: Bone Marrow: Suture anchors are noted in the humeral head consistent with prior rotator cuff repair. There is no bony contusion or occult fracture. AC joint: There is moderate AC joint hypertrophy without evidence of separation. There is a type 3 acromion with impingement configuration. Rotator cuff: There is no muscular atrophy. There is a full-thickness, 50% with tear of the distal supraspinatus without retraction. There is severe distal infraspinatus tendinopathy without full- thickness tear. There is severe distal subscapularis tendinopathy without full-thickness tear or retraction. The teres minor appears intact. Labrum: There is a tear of the labrum from the 12 o'clock-2 o'clock position extending into the biceps tendon anchor. Biceps: The biceps tendon is absent from the biceps tendon groove with avulsion. Effusion: There is a trace joint effusion which extends into the subacromial subdeltoid bursa. MRI/Upper Ext Joint Only(Routine) IMPRESSION: Suture anchors are noted in the humeral head consistent with prior rotator cuff repair. There is moderate AC joint hypertrophy without evidence of separation. There is a type 3 acromion with impingement configuration. There is a full-thickness, 50% with tear of the distal supraspinatus without re traction. There is severe distal infraspinatus tendinopathy without full-thickness tear. There is severe distal subscapularis tendinopathy without full-thickness tear o r retraction. There is a tear of the labrum from the 12 o'clock-2 o'clock position extending into the biceps tendon anchor. The biceps tendon is absent from the biceps tendon groove with avulsion. There is a trace joint effusion which extends into the subacromial subdeltoid b ursa. Reading Location: [facility]
== END | disposition home or self-care (01) ==
LOC: OPMRI 12:57
PROVIDERS: PCP Preventive Medicine Occupational Medicine; Referring Provider Orthopaedic Surgery Sports Medicine; Visit Provider Orthopaedic Surgery Sports Medicine
DX: M19.011 Primary osteoarthritis, right shoulder (principal); M25.511 Pain in right shoulder
CPT/HCPCS: 73221

== ENCOUNTER 2025-02-18 20:03 | Emergency (ER) | payer MEDICAID, SELFPAY ==
[2025-02-18 20:05] VITALS: BP 144/102; PULSE 68; RESP 18; TEMP 36.4; O2SAT 98; BMI 34.5
--- OUTSIDE RECORDS SUMMARY | 2025-02-18 20:40 | XMS RPT_ITS | CCD ---
Author Organization [facility] Care Team Providers Care Cat Operator Name Role Phone KRISSY LINO Attending Unavailable PROVIDER, UNKNOWN Admitting Unavailable PATIENT, SELF Referring Unavailable Lanette Harkins F Unavailable Unavailable Unavailable LANETTE HARKINS DO Primary Care Physician Lanette Harkins Primary Care Provider Lanette Harkins Primary Care Provider LANETTE HARKINS DO Primary Care Physician Lanette Harkins Primary Care Provider Rissa LOWERY Lanette Syed Primary Care Provider Rissa LOWERY Lanette Syed Primary Care Provider Lanette Harkins DO Primary Care Provider VICENTA DAVEY Attending Unavailable REFERRED, SELF Referring Unavailable RISSA LANETTE F Primary Care Unavailable VICENTA DAVEY Attending Unavailable BROWN DARLING Referring Unavailable RISSA LANETTE F Primary Care Unavailable Lanette Harkins DO Primary Care Provider Lanette Harkins DO Primary Care Provider MIREYA SWEET Attending Unavailable RISSA, LANETTE F Primary Care Unavailable MAL GOTTI Attending Unavailab MELVIN Hernandez Referring Unavailable RISSA, LANETTE F Primary Care Unavailable MAL GOTTI Attending Unavailab le RISSA, LANETTE F Primary Care Unavailable MAL GOTTI Attending Unavailab le SELF Referring Unavailable RISSA, LANETTE F Primary Care Unavailable MAL GOTTI Attending Unavailab le RISSA, LANETTE F Primary Care Unavailable MAL GOTTI Attending Unavailab le RISSA, LANETTE F Primary Care Unavailable MIREYA SWEET Attending Unavailable RISSA, LANETTE F Primary Care Unavailable ANA MARÍA, MAL ALBERT Attending Unavailab le RISSA, LANETTE F Primary Care Unavailable Rissa DO, Lanette F Primary Care Provider [phone] PETE CHANEY, RAHUL BALLARD Attending U navailable RISSA DO, LANETTE Primary Care Unavailable RISSA DO, LANETTE Attending Unavailable RISSA DO, LANETTE Primary Care Unavailable RISSA DO, LANETTE Attending Unavailable RISSA DO, LANETTE Primary Care Unavailable RISSA, LANETTE F Primary Care Unavailable ANA MARÍA, MAL ALBERT Referring Unavailab le RISSA, LANETTE F Primary Care Unavailable ANA MARÍA, MAL ALBERT Referring Unavailab le RISSA, LANETTE F Primary Care Unavailable ANA MARÍA, MAL ALBERT Referring Unavailab le RISSA, LANETTE F Primary Care Unavailable ANA MARÍA, MAL ALBERT Referring Unavailab le RISSA, LANETTE F Primary Care Unavailable ANA MARÍA, MAL ALBERT Referring Unavailab le RISSA, LANETTE F Primary Care Unavailable ANA MARÍA, MAL ALBERT Referring Unavailab le RISSA, LANETTE F Primary Care Unavailable ANA MARÍA, MAL ALBERT Referring Unavailab le RISSA, LANETTE F Primary Care Unavailable DOMINGO RAMON Referring Unavailable RISSA, LANETTE F Primary Care Unavailable RISSA, LANETTE F Primary Care Unavailable ANA MARÍA, MAL ALBERT Referring Unavailab le RISSA, LANETTE F Primary Care Unavailable ANA MARÍA, MAL ALBERT Referring Unavailab le RISSA, LANETTE F Primary Care Unavailable ANA MARÍA, MAL ALBERT Referring Unavailab le RISSA, LANETTE F Primary Care Unavailable ANA MARÍA, MAL ALBERT Referring Unavailab le RISSA, LANETTE F Primary Care Unavailable ANA MARÍA, MAL ALBERT Referring Unavailab le RISSA, LANETTE F Primary Care Unavailable ANA MARÍA, MAL ALBERT Referring Unavailab le RISSA, LANETTE F Primary Care Unavailable GINO MERCADO Referring Unava ilable JESSE DUMONT Admitting Unavailable PROVIDER, UNKNOWN Attending Unavailable RISSA, LANETTE F Primary Care Unavailable ANA MARÍA, MAL ALBERT Admitting Unavailab le ANA MARÍA, MAL ALBERT Attending Unavailab le RISSA, LANETTE F Primary Care Unavailable SHANNON RODRIGUEZ Referring Unavailable YFN BLANCA Attending UnavailDORA Babcock Admitting Unavailable GENARO-BACHERT CHARLETTE LOWERY Attending Yaquelin vailable RISSA LOWERY, LANETTE Primary Care Unavailable Rissa , Lanette F Primary Care Provider [phone] Rissa , Lanette F Primary Care Provider [phone] CYNDY WALTON Attending Unavailable LANETTE HARKINS Referring Unavailable LANETTE HARKINS Primary Care Unavailable Rissa LOWERY, Dr. Rowan Primary Care Provider [phone] Rissa LOWERY, Dr. Rowan Referring Provider Fred Huber MD Attending Provider [phone] Jeet ALLRED, Dr. Henderson Attending Provider [phone] FRED PETERS DO Primary Care Physician Rissa LOWERY, Dr. Rowan Primary Care Provider [phone] Rissa LOWERY, Dr. Rowan Referring Provider Fred Huber MD Attending Provider [phone] Fred Huber MD Referring Provider [phone] RISSA LOWERY LANETTE Attending Unavailable RISSA , LANETTE Primary Care Unavailable OLESYA SAFETY NET MAKER - [employer]I [employer]NAS Attending U navailable RISSA DO, LANETTE Primary Care Unavailable OLESYA SAFETY NET MAKER [employer] Attending U navailable RISSA , LANETTE Primary Care Unavailable FRED PETERS DO Primary Care Unavailable BALSUSAN SAFETY NET MAKER-COIL BUILDERSHAAN Attending Unavailabl e RISSA DO, LANETTE Primary Care Unavailable WHITNEY SAFETY NET MAKER-KIM ARENAS Attending Unavailab le OLESYA SAFETY NET MAKER - COIL BUILDERALLI Attending U navailable RISSA DO, LANETTE Primary Care Unavailable RISSA DO, LANETTE Primary Care Unavailable OLESYA SAFETY NET MAKER - COIL BUILDERALLI Attending U navailable LEYLA DODSON Attending UnavailFRED Lyle Primary Care Unavailable LANETTE HARKINS Primary Care Unavailable KAIN LEE Attending Unavailable MIREYA DESAI Attending Unavailable LANETTE HARKINS Primary Care Unavailable LANETTE HARKINS F Primary Care Unavailable Fred Peters DO Primary Care Provider [phone] CHANTELL BARR Attending Unavailable LANETTE HARKINS Primary Care Unavailable JENNIFER MUNROE Admitting Unavailable JENNIFER MUNROE Attending Unavailable RISSA, LANETTE F Primary Care Unavailable JENNIFER MUNROE Admitting Unavailable JENNIFER MUNROE Attending Unavailable RISSA, LANETTE F Primary Care Unavailable LEEANN OWENS Attending Unavailable RISSA, LANETTE F Primary Care Unavailable RISSA, LANETTE F Primary Care Unavailable FRED PETERS Primary Care Unavailable Mollison, Fred Referring Unavailable Mollison, Fred Attending Unavailable Rissa, Lanette Primary Care Unavailable Rissa, Lanette Primary Care Unavailable Mollison, Fred Attending Unavailable Rissa, Lanette Primary Care Unavailable JeetSantiago neal Attending Unavailable Mollison, Fred Attending Unavailable Rissa, Lanette Referring Unavailable Rissa, Lanette Primary Care Unavailable Rissa, Lanette Primary Care Unavailable Rissa, Lanette Referring Unavailable Mollison, Fred Attending Unavailable Rissa, Lanette Primary Care Unavailable JeetSantiago neal Attending Unavailable Rissa, Lanette Referring Unavailable Mollison, Fred Attending Unavailable Rissa, Lanette Primary Care Unavailable Rissa, Lanette Referring Unavailable Mollison, Fred Attending Unavailable Rissa, Lanette Primary Care Unavailable Mollison, Fred Attending Unavailable Rissa, Lanette Primary Care Unavailable Mollison, Fred Attending Unavailable Rissa, Lanette Referring Unavailable Rissa, Lanette Primary Care Unavailable Mollison, Fred Attending Unavailable Rissa, Lanette Referring Unavailable Rissa, Lanette Primary Care Unavailable Rissa, Lanette Referring Unavailable Rissa, Lanette Primary Care Unavailable Mauison, Fred Attending Unavailable Rissa, Lanette Primary Care Unavailable Rissa, Lanette Referring Unavailable Mollison, Fred Attending Unavailable Rissa, Lanette Primary Care Unavailable Rissa, Lanette Referring Unavailable Mollison, Fred Attending Unavailable Rissa, Lanette Primary Care Unavailable Jeet Jeddo Attending Unavailable Rissa, Lanette Primary Care Unavailable Rissa, Lanette Referring Unavailable Mollison, Fred Attending Unavailable Mollison, Fred Attending Unavailable Rissa, Lanette Referring Unavailable Rissa, Lanette Primary Care Unavailable Mollison, Fred Referring Unavailable Rissa, Lanette Primary Care Unavailable Mollison, Fred Attending Unavailable Mollison, Fred Referring Unavailable Mollison, Fred Attending Unavailable Rissa, Lanette Primary Care Unavailable Mollison, Fred Attending Unavailable Rissa, Lanette Referring Unavailable Rissa, Lanette Primary Care Unavailable Mollison, Fred Attending Unavailable Rissa, Lanette Referring Unavailable Rissa, Lanette Primary Care Unavailable Mollison, Fred Attending Unavailable Rissa, Lanette Primary Care Unavailable Lanette Harkins Referring Unavailable Lanette Harkins Primary Care Unavailable Lanette Harkins Referring Unavailable Fred Huber Attending Unavailable Lanette Harkins Primary Care Unavailable Lanette Harkins Referring Unavailable Fred Huber Attending Unavailable Rissa LOWERY, Dr. Rowan Primary Care Physician Dr. Lanette Harkins DO Referring Provider Fred Huber MD Attending Physician Dr. Santiago Marcano MD Attending Physician Allergies Allergy Classification Reported Allergen(s) Allergy Type Date of Onset Reaction(s) Facility Acetaminophen / HYDROcodone (1 source) Acetaminophen / HYDROcodone; Translations: [Vicodin ES TABS] Drug Allergy [facility] Work Phone: (20 sources) Acetaminophen / HYDROcodone; Translations: [HYDROCODONE-ACETAM INOPHEN] Drug Allergy 06-06-19 11 Mental Status Change, Itching [facility] (20 sources) orange oil; Translations: [ORANGE OIL] Drug Allergy 08-07-19 16 Hives, Other (See Comments), Other: See Comments [facility] (3 sources) MILK-RELATED COMPOUNDS; Translations: [MILK-RELATED COMPOUNDS] Propensity to adverse reactions to drug (disorder) 08-07-19 16 Other (See Comments) [facility] (14 sources) Acetaminophen / HYDROcodone; Translations: [acetaminophen-hydr ocodone] Drug Allergy Combative, Itching [facility] (14 sources) ARIPiprazole lauroxil; Translations: [aripiprazole] Drug Allergy 02-23-20 21 Aggressive behavior (finding) [facility] (20 sources) hydroCHLOROthiazide ; Translations: [hydrochlorothiazid e] Drug Allergy 05-18-19 21 Hypokalemia (disorder), Other: See Comments, Other (See Comments) [facility] (20 sources) Kihei juice; Translations: [ORANGE JUICE] Food allergy 11-20-19 22 Unknown [facility] (20 sources) Pseudoephedrine; Translations: [pseudoephedrine] Drug Allergy 05-20-19 22 Unknown [facility] (14 sources) Milk Products Food allergy Nasal (qualifier value) [facility] (20 sources) HYDROcodone; Translations: [HYDROCODONE] Drug Allergy 09-26-19 21 Other (See Comments), Other: See Comments [facility] Work Phone: (20 sources) Acetaminophen / Codeine; Translations: [ACETAMINOPHEN-CODE INE] Drug Allergy 07-25-19 22 Unknown, Other (See Comments) [facility] Work Phone: (20 sources) ARIPiprazole; Translations: [ARIPIPRAZOLE] Drug Allergy 02-23-20 Mental Status Change, Other (See Comments) [facility] Work Phone: (20 sources) Sulfamethoxazole / Trimethoprim; Translations: [SULFAMETHOXAZOLE-T RIMETHOPRIM] Drug Allergy 03-26-20 Unknown, Other (See Comments), Other: See Comments [facility] Work Phone: (20 sources) Acetaminophen; Translations: [ACETAMINOPHEN] Drug Allergy 09-03-19 23 Other (See Comments), Other: See Comments [facility] (20 sources) Doxycycline; Translations: [DOXYCYCLINE] Drug Allergy 05-13-20 Hives, Weal (disorder) [facility] (6 sources) fentaNYL; Translations: [FENTANYL] Drug Allergy 12-05-19 Itching, Other: See Comments [facility] (3 sources) Ibuprofen; Translations: [IBUPROFEN] Drug Allergy 12-05-19 Other: See Comments [facility] Other [facility] (1 source) fentaNYL Drug Allergy 02-10-[address] [facility] (1 source) HYDROcodone Drug Allergy 02-10-[address] [facility] Rep[facility] Medications Current Medications Medication Drug Class(es) Dates Sig (Normalized) Sig (Original) acetaminophen 500 mg oral tablet (1 source) Start: 06-02-2023 End: 07-02-2023 take 2 tablets by mouth every eight hours acetaminophen (TYLENOL) 500 mg tablet Take 2 tablets by mouth every 8 hours. 180 tablet 0 06/02/2023 07/02/2023 Active Comment on above: Take 2 tablets by mo ut every 8 hours. acetaminophen 325 mg / butalbital 50 mg / caffeine 40 mg oral tablet (8 sources) Barbiturate, Central Nervous System Stimulant, Methylxanthine Start: 04-09-2020 take 1 tablet by mouth every six hours as needed for headache APAP/butalbital/ca ffeine 325-50-40 mg oral tablet (Fioricet) Dose = 1 tab(s), Oral, q6h, PRN for headache, # 20 tab(s), 0 Refill(s), . Start Date: 04/09/20 Status: Ordered albuterol MDI (90 mcg/inh) CFC free inhalation aerosol (4 sources) Start: 06-04-2023 take 2 puff(s) by inhalation every six hours as needed for wheezing albuterol MDI (90 mcg/inh) CFC free inhalation aerosol 2 puff(s), Inhalation, q6h, PRN as needed for wheezing, # 1 EA, 0 Refill(s), Pharmacy: [id number], Pneumonia of upper lobe due to Mycoplasma pneumoniae, 189.5, cm, 06/04/23 13:05:00 EST, Height, kg, 06/04/23 13:05:00 EST, Dosing Weight Start Date: 06/04/23 Status: Ordered Quantity: 1.0 Unit: EA Repeat number: 1 Indications: Pneumonia due to Mycoplasma pneumoniae; Start: 06-04-2023 take 2 puff(s) by in halation every six hours as needed for wheezing albuterol MDI (90 mcg/inh) CFC free inhalation aerosol 2 puff(s), Inhalation, q6h, PRN as needed for wheezing, # 1 EA, 0 Refill(s), Pharmacy: [id number], Pneumonia of upper lobe due to Mycoplasma pneumoniae, 189.5, cm, 06/04/23 13:05:00 EST, Height, kg, 06/04/23 13:05:00 EST, Dosing Weight Start Date: 06/04/23 Status: Ordered amitriptyline hydrochloride 25 mg oral tablet (3 sources) Tricyclic Antidepressant Start: 02-19-2022 End: 03-21-2022 take 0.5-1 tablets by mouth once daily at bedtime amitriptyline (ELAVIL) 25 mg tablet Take 0.5-1 tablets by mouth daily at bedtime. 30 tablet 0 02/19/2022 03/21/2022 Discontinued Comment on above: Take 0.5-1 tablets b y mouth daily at bedtime. amLODIPine 10 mg oral tablet (14 sources) Dihydropyridine Calcium Channel Trae End: 01-21-2022 amLODIPine (NORVASC) 10 MG tablet Take by mouth daily 0 Active End: 12-20-2021 amLODIPine (NORVASC) 10 mg t ablet Take by mouth q 24 HR. 0 12/20/2021 Discontinued Comment on above: Take 10 mg by mouth once daily. Take by mouth q 24 H R. atorvastatin 40 mg oral tablet (20 sources) HMG-CoA Reductase Inhibitor Start: 06-23-2023 atorvastatin 40 mg oral tablet Dose : 40 mg = 1 tab(s), Oral, qDay, # 90 tab(s), 0 Refill(s) Start Date: 06/23/23 Status: Ordered Start: 06-02-2023 End: 07-02-2023 take 1 tablet by mouth once daily at bedtime atorvastatin (LIPITOR) 40 mg tablet 1 tablet by ORAL/FEEDING TUBE route daily at bedtime. 30 tablet 06/02/2023 Active Comment on above: 1 tablet by ORAL/FEE DING TUBE route daily at bedtime. bacitracin zinc 0.5 unt/mg topical ointment (2 sources) Start: 09-02-2022 End: 10-02-2022 bacitracin 500 UNIT/GM ointment Apply to affected area as needed for Wound Care for up to 30 days 450 g 0 09/02/2022 10/02/2022 Active Start: 09-02-2022 End: 09-02-2022 bacitracin 500 UNIT/GM ointm ent - packet benzonatate 100 mg oral capsule (2 sources) Non-narcotic Antitussive Start: 02-02-2024 End: 02-09-2024 take 1-2 capsules by mouth every eight hours as needed for cough benzonatate 100 mg oral capsule See Instructions, PRN as needed for cough, Take 1-2 caps by mouth q8h as needed for cough. do not crush or chew, # 30 cap(s), 0 Refill(s), 02/09/24 3:01:00 PM EDT, Pharmacy: [id number], Acute rhinosinusitis, 190, cm, 01/28/24 14:03:00 EDT, Height, kg, 02/02/24 14:23:00 EDT, Dosing Weight Start Date: 02/02/24 Stop Date: 02/09/24 Status: Ordered Start: 04-03-2021 End: 04-10-2021 Tessalon Perles 100 mg oral capsule Dose : 100 mg = 1 cap(s), Oral, TID, PRN Cough, do not crush or chew, X 7 day(s), # 21 cap(s), 0 Refill(s), 04/10/21 11:29:00 EST, Pharmacy: [facility] #[id number], 190.5, cm, 04/03/21 10:46:00 EST, Height, kg, 04/03/21 10:46:00 EST, Dosing Weight Start Date: 04/03/21 Stop Date: 04/10/21 Status: Ordered 24 hr buPROPion hydrochloride 300 mg extended release oral tablet (20 sources) Aminoketone Start: 09-05-2024 End: 03-04-2025 take 1 tablet by mouth every hour, then take 1 tablet by mouth every twenty-four hours buPROPion 300 mg/24 hours (XL) oral tablet, extended release Dose : 300 mg = 1 tab(s), Oral, q24h, # 90 tab(s), 1 Refill(s), Pharmacy: [id number], 187.5, cm, 08/24/24 10:01:00 EDT, Height, kg, 08/24/24 10:01:00 EDT, Dosing Weight Start Date: 09/05/24 Stop Date: 03/04/25 Status: Ordered Quantity: 90.0 Unit: tab(s) Repeat number: 2 Start: 05-07-2023 End: 06-10-2024 take 1 tablet by mouth every hour, then take 1 tablet by mouth every twenty-four hours buPROPion 300 mg/24 hours (XL) oral tablet, extended release Dose : 300 mg = 1 tab(s), Oral, q24h, # 100 tab(s), 3 Refill(s), Pharmacy: [facility] #[id number], 189.5, cm, 04/13/23 13:20:00 EST, Height, kg, 04/13/23 13:20:00 EST, Dosing Weight Start Date: 05/07/23 Stop Date: 06/10/24 Status: Ordered Start: 05-07-2023 take 1 tablet by mouth once da jaquelin Bupropion Hcl 300 mg tablet extended release 24 hr Active 300 mg PO daily February 29, 2024 12:00am Complies with drug therapy Start: 04-17-2022 take 1 tablet by marcus th every twenty-four hours buPROPion XL (WELLBUTRIN XL) 300 mg 24 hr tablet TAKE 1 TABLET BY MOUTH EVERY 24 HOURS. REPLACES PREVIOUS PRESCRIPTION FOR BUPROPION 150 MG TABLET 04/17/2022 Active Start: 04-17-2022 take 1 tablet by mouth every h our buPROPion 300 mg/24 hours (XL) oral tablet, extended release Dose : 300 mg = 1 tab(s), Oral, q24h, Replaces previous prescription for bupropion 150 mg tabs., # 90 tab(s), 3 Refill(s), Pharmacy: [facility] #[id number], 189, cm, 04/17/22 9:13:00 EST, Height Start Date: 04/17/22 Status: Ordered Start: 11-22-2021 End: 04-21-2022 take 1 tablet by mouth every twenty-four hours buPROPion XL (WELLBUTRIN XL) 150 mg 24 hr tablet TAKE 1 TABLET BY MOUTH EVERY 24 HOURS 0 11/22/2021 04/21/2022 Discontinued Start: 11-22-2021 take 1 tablet by marcus th every hour, then take 1 tablet by mouth every twenty-four hours buPROPion 150 mg/24 hours (XL) oral tablet, extended release Dose : 150 mg = 1 tab(s), Oral, q24h, # 90 tab(s), 3 Refill(s), Pharmacy: [facility] #[id number], Depressive disorder, 190, cm, 11/22/21 13:04:00 EDT, Height, kg, 11/22/21 13:04:00 EDT, Dosing Weight Start Date: 11/22/21 Status: Ordered Start: 05-03-2021 take 1 tablet by marcus th every hour, then take 1 tablet by mouth every twenty-four hours buPROPion 150 mg/24 hours (XL) oral tablet, extended release Dose : 150 mg = 1 tab(s), Oral, q24h, # 90 tab(s), 1 Refill(s), Pharmacy: [facility] #[id number], Depressive disorder, 190, cm, 04/25/21 7:55:00 EST, Height, kg, 04/25/21 7:55:00 EST, Dosing Weight Start Date: 05/03/21 Status: Ordered Start: 02-25-2021 take 1 tablet by marcus th every hour, then take 1 tablet by mouth every twenty-four hours buPROPion 150 mg/24 hours (XL) oral tablet, extended release Dose : 150 mg = 1 tab(s), Oral, q24h, # 30 tab(s), 1 Refill(s), Pharmacy: [facility] #[id number], Depressive disorder, 191, cm, 02/18/21 13:41:00 EDT, Height, kg, 02/18/21 13:41:00 EDT, Dosing Weight Start Date: 02/25/21 Status: Ordered Comment on above: TAKE 1 TABLET BY MARCUS TH EVERY 24 HOURS TAKE 1 TABLET BY MARCUS TH EVERY 24 HOURS. REPLACES PREVIOUS PRESCRIPTION FOR BUPROPION 150 MG TABLET celecoxib 100 mg oral capsule (3 sources) Nonsteroidal Anti-inflammatory Drug Start: 04-21-20 End: 05-21-19 take 1 capsule by mouth every twelve hours as needed celecoxib (CELEBREX) 100 mg capsule Take 1 capsule by mouth twice daily as needed. 60 capsule 0 04/21/2022 05/21/2022 Active Comment on above: Take 1 capsule by mo uth twice daily as needed. cephalexin 500 mg oral capsule (1 source) Cephalosporin Antibacterial Start: 11-11-19 End: 11-21-19 25 cephalexin 500 mg oral capsule Dose : 500 mg = 1 cap(s), Oral, QID, X 10 day(s), # 40 cap(s), 0 Refill(s), 11/20/24 10:07:00 AM EDT, Pharmacy: [id number], Skin infection, 187.5, cm, 11/10/24 9:19:00 EDT, Height, 114.2, kg, 11/10/24 9:19:00 EDT, Dosing Weight Start Date: 11/10/24 Stop Date: 11/20/24 Status: Ordered Quantity: 40.0 Unit: cap(s) Repeat number: 1 Indications: Local infection of the skin and subcutaneous tissue, unspecified; cetirizine hydrochloride 10 mg oral tablet (20 sources) Histamine-1 Receptor Antagonist Start: 08-31-19 take 1 tablet by mouth once daily cetirizine (ZYRTEC) 10 mg tablet Take 10 mg by mouth once daily. 12/02/2021 Active Start: 03-12-2021 End: 04-11-2021 cetirizine 10 mg oral tablet Dose : 10 mg = 1 tab(s), Oral, qDay, # 90 tab(s), 1 Refill(s), Pharmacy: [facility] #[id number], Environmental allergies, 190, cm, 03/12/21 11:02:00 EDT, Height, kg, 03/12/21 11:02:00 EDT, Dosing Weight Start Date: 03/12/21 Status: Ordered Comment on above: Take 10 mg by mouth once daily. ciprofloxacin 500 mg oral tablet (2 sources) Quinolone Antimicrobial Start: 11-19-2021 End: 12-20-2021 ciprofloxacin 500 mg oral tablet Dose : 500 mg = 1 tab(s), Oral, q12h, X 10 day(s), # 20 tab(s), 0 Refill(s), 11/29/21 19:31:00 EDT, Pharmacy: [facility] #[id number], Epididymitis, 190, cm, 11/01/21 14:02:00 EDT, Height, 107.7 Start Date: 11/19/21 Stop Date: 11/29/21 Status: Ordered Comment on above: Take 500 mg by mouth every 12 hours. collagenase 0.25 unt/mg topical ointment (2 sources) Collagen-specific Enzyme Start: 09-02-2022 End: 10-02-2022 collagenase (SANTYL) 250 UNIT/GM ointment Apply to affected area as needed for Wound Care (Dressing Change) for up to 30 days Apply to affected area daily. 30 g 0 09/02/2022 10/02/2022 Active Start: 09-02-2022 End: 09-02-2022 collagenase (SANTYL) ointmen t cyclobenzaprine hydrochloride 5 mg oral tablet (20 sources) Muscle Relaxant Start: 08-20-2023 End: 10-05-2024 take 1 tablet by mouth three times daily as needed Cyclobenzaprine 5 mg tablet Active 5 mg PO THREE TIMES A DAY as needed February 29, 2024 12:00am Complies with drug therapy Start: 06-23-2023 End: 07-03-2023 cyclobenzaprine 5 mg oral ta blet Dose : 5 mg = 1 tab(s), Oral, BID, during the day, # 30 tab(s), 0 Refill(s) Start Date: 06/23/23 Stop Date: 07/03/23 Status: Ordered Start: 02-16-2023 End: 07-09-2023 take 1 tablet by mouth every twelve hours as needed cyclobenzaprine (FLEXERIL) 5 mg tablet Take 1 tablet by mouth two times a day as needed for muscle spasm. 180 tablet 0 04/23/2023 07/09/2023 Discontinued (Discontinued by another Health Care Provider) Comment on above: Take 1 tablet by marcus th two times a day as needed for muscle spasm. Take 1 tablet by marcus th three times a day as needed. dextromethorphan hydrobromide 2 mg/ml / guaiFENesin 20 mg/ml oral solution (12 sources) Uncompetitive J-sjngla-Z-aspartate Receptor Antagonist, Sigma-1 Agonist Start: 024 take 10 mL by mouth every eight hours as needed guaiFENesin-dextrome thorphan (ROBITUSSIN DM) 100-10 mg/5 mL syrup Take 10 mL by mouth three times a day as needed. 200 mL 04/20/2024 Active [facility]ME [facility] (4 sources) Start: DME [facility] See Instructions, Dispense knee-high fitted compression stockings, 20 to 30 mmHg pressure, for the right lower extremity, # 2 EA, 2 Refill(s), Edema of right foot, 113.5 Start Date: 10/08/22 Status: Ordered docusate sodium 100 mg oral capsule (20 sources) Start: take 1 capsule by mouth twice daily docusate sodium (COLACE) 100 mg capsule Indications: S/P rotator cuff repair Take 1 capsule by mouth twice daily. 30 capsule 1 01/09/2023 Active Comment on above: Take 1 capsule by [facility] twice daily. doxycycline hyclate 100 mg oral tablet (1 source) Tetracycline-class Drug Start: End: doxycycline hyclate 100 mg oral tablet Dose : 100 mg = 1 tab(s), Oral, BID, X 20 day(s), # 40 tab(s), 0 Refill(s), 05/03/23 2:04:00 PM EST, Pharmacy: [id number], Chronic sinusitis, 189.5, cm, 04/13/23 13:20:00 EST, Height, 114, kg, 04/13/23 13:20:00 EST, Dosing Weight Start Date: 04/13/23 Stop Date: 05/03/23 Status: Ordered DULoxetine 30 mg delayed release oral capsule (20 sources) Serotonin and Norepinephrine Reuptake Inhibitor Start: take 1 capsule by mouth once daily DULoxetine 30 mg oral delayed release capsule Dose : 30 mg = 1 cap(s), Oral, qDay, Take along with a 60 mg capsule to equal a total of 90 mg daily., # 90 cap(s), 1 Refill(s), Pharmacy: [id number], Depressive disorder, 187.5, cm, 08/24/24 10:01:00 EDT, Height, kg, 08/24/24 10:01:00 EDT, Dosing Weight Start Date: 08/24/24 Status: Ordered Quantity: 90.0 Unit: cap(s) Repeat number: 2 Indications: Other specified depressive episodes; Start: 08-28-2023 End: 10-01-2024 take 1 capsule by mouth once daily Duloxetine 60 mg capsule,delayed release(DR/EC) Active 60 mg PO daily February 29, 2024 12:00am Complies with drug therapy Start: 12-05-2021 End: 02-17-2023 Cymbalta 60 mg oral delayed release capsule Dose : 60 mg = 1 cap(s), Oral, qDay, do not crush or chew, # 90 cap(s), 3 Refill(s), Pharmacy: [id number], 74, cm, 07/16/22 10:48:00 EST, Height, kg, 07/16/22 10:48:00 EST, Dosing Weight Start Date: 07/16/22 Status: Ordered Start: 11-01-2021 End: 01-21-2022 take 1 capsule by mouth once daily DULoxetine (CYMBALTA) 30 mg capsule Take 30 mg by mouth once daily. 0 11/04/2021 01/21/2022 Discontinued take 3 capsules by m outh once daily DULoxetine (CYMBALTA) 60 mg capsule Take 180 mg by mouth once daily. Active Comment on above: Take 30 mg by mouth once daily. duloxetine 30 mg cap nahomy,delayed release take 1 capsule by mouth once daily TAKE 1 CAPSULE BY MO UTH EVERY DAY. DO NOT CRUSH OR CHEW duloxetine 60 mg cap nahomy,delayed release Emgality Prefilled Pen 120 mg/mL subcutaneous solution (3 sources) Start: 06-22-19 Emgality Prefilled Pen 120 mg/mL subcutaneous solution 0 Refill(s) Start Date: 06/22/20 Status: Ordered fexofenadine hydrochloride 180 mg oral tablet (20 sources) Histamine-1 Receptor Antagonist Start: 09-21-19 take 1 tablet by mouth once daily Fexofenadine 180 mg tablet Active 180 mg PO daily February 29, 2024 12:00am Complies with drug therapy fluticasone propionate 0.05 mg/actuat metered dose nasal spray (12 sources) Corticosteroid Start: 04-20-20 End: 05-04-20 take 1 spray(s) nasal route twice daily fluticasone (FLONASE) 50 mcg/actuation nasal spray Use 1 Grant in each nostril two times a day for 14 days. Use before lying down for bed. 1 Each 04/20/2024 05/04/2024 Active take 2 spray(s) nasal route once daily fluticasone (FLONASE) 50 mcg/actuation nasal spray Use 2 Sprays in each nostril once daily. Active 1.5 ml fremanezumab-vfrm 150 mg/ml prefilled syringe (20 sources) Start: 12-10-2021 AJOVY SYRINGE 225 mg/1.5 mL syringe 12/10/2021 Active gabapentin 100 mg oral capsule (20 sources) Anti-epileptic Agent Start: 02-29-2024 Gabapentin 100 mg tablet Active 600 mg PO THREE TIMES A DAY February 29, 2024 9:51am Complies with drug therapy Start: 09-24-2021 End: 08-14-2024 take 1 tablet by mouth three times daily gabapentin (NEURONTIN) 600 mg tablet Take 1 tablet by mouth three times a day for 90 days. 90 tablet 2 05/16/2024 Active Start: 02-18-2021 gabapentin 400 mg oral capsule Dose : 400 mg = 1 cap(s), Oral, TID, # 120 cap(s), 0 Refill(s), 107.1 Start Date: 02/18/21 Status: Ordered Start: 09-18-2020 End: 02-29-2024 take 1 tablet by mouth twice daily Gabapentin 100 mg Tablet Discontinued 100 mg PO TWICE A DAY September 18, 2020 12:00am February 29, 2024 9:55am Start: 09-18-2020 End: 02-29-2024 take 1 capsule by mouth at bedtime Gabapentin 300 mg Capsule Discontinued 300 mg PO AT BEDTIME September 18, 2020 12:00am February 29, 2024 9:49am End: 11-19-2021 take 1 capsule by mouth three times daily gabapentin (NEURONTIN) 100 mg capsule Take 100 mg by mouth three times daily. 0 11/19/2021 Discontinued Comment on above: Take 100 mg by mouth three times daily. Take 1 tablet by marcus th three times daily for 30 days. Take 600 mg by mouth three times daily. Take 1 tablet by marcus th three times daily for 90 days. Take 1 tablet by marcus th three times daily for 90 days. Do not start before August 27, 2022. Take 1 tablet by marcus th three times a day for 90 days. Take 1 tablet by marcus th three times a day for 90 days. Do not start before July 19, 2023. Take 1 tablet by marcus th three times a day for 30 days. 1 ml galcanezumab-gnlm 120 mg/ml auto-injector (4 sources) Start: 06-22-2020 Emgality Prefilled Pen 120 mg/mL subcutaneous solution 0 Refill(s) Start Date: 06/22/20 Status: Ordered 12 hr guaiFENesin 600 mg extended release oral tablet (2 sources) Start: 02-02-2024 End: 02-12-2024 guaiFENesin 600 mg oral tablet, extended release Dose : 600 mg = 1 tab(s), Oral, q12h, X 10 day(s), # 20 tab(s), 0 Refill(s), 02/12/24 3:00:00 PM EDT, Pharmacy: [id number], Acute rhinosinusitis, 190, cm, 01/28/24 14:03:00 EDT, Height, kg, 02/02/24 14:23:00 EDT, Dosing Weight Start Date: 02/02/24 Stop Date: 02/12/24 Status: Ordered Start: 04-03-2021 End: 04-10-2021 take 1 tablet by mouth once daily guaiFENesin 1200 mg oral tablet, extended release Dose : 1,200 mg = 1 tab(s), Oral, q12h, PRN Cough and congestion, not to exceed 2.4 grams/day, with plenty of water. Do not take any other guaifenesin or mucinex containing over the counter medications while on this medication., X 7 day(s), # 14 tab(s... Start Date: 04/03/21 Stop Date: 04/10/21 Status: Ordered Lidocaine (20 sources) Antiarrhythmic, Amide Local Anesthetic Start: 11-10-2024 lidocaine 5% patch Dose = 1 patch(es), Topical, qDay, on for 12 hrs/off for 12 hrs, 0 Refill(s) Start Date: 11/10/24 Status: Ordered Repeat number: 1 Start: 02-29-2024 End: 07-19-2024 Lidocaine 5 % adhesive patch ,medicated Discontinued 1 NMA TOPICAL daily February 29, 2024 12:00am July 19, 2024 11:40am Start: 02-02-2024 lidocaine 5% t opical patch Apply 1 Patch as directed as directed. Apply 1 patch for 12 hours then remove for 12 hours Start Date: 02/02/24 Status: Ordered Start: 05-27-2023 lidocaine (LID ODERM) 5 % Apply 1 Patch as directed as directed. Apply 1 patch for 12 hours then remove for 12 hours 30 Patch 2 05/27/2023 Active Comment on above: Apply 1 Patch as dir ected as directed. Apply 1 patch for 12 hours then remove for 12 hours meloxicam 15 mg oral tablet (2 sources) Nonsteroidal Anti-inflammatory Drug Meloxicam (MOBIC) 15 MG TABS tablet Take by mouth daily 0 Active 24 hr mirabegron 25 mg extended release oral tablet (20 sources) beta3-Adrenergic Agonist Start: 4 take 1 tablet by mouth once daily Mirabegron (Myrbetriq) 25 mg tablet extended release 24 hr Active 25 mg PO daily February 29, 2024 12:00am Complies with drug therapy montelukast 10 mg oral tablet (1 source) Leukotriene Receptor Antagonist take 1 tablet by mouth once daily montelukast (SINGULAIR) 10 MG tablet montelukast 10 mg tablet take 1 tablet by mouth once daily 0 Active naloxone hydrochloride 40 mg/ml nasal spray (20 sources) Opioid Antagonist Start: 3 naloxone 4 mg/actuation nasal spray (NARCAN) Use 1 spray in one nostril as needed for overdose. May repeat every 2 to 3 min in alternating nostrils until medical assistance is available 1 Each 1 06/29/2022 Active Comment on above: Use 1 spray in one n ostril as needed for overdose. May repeat every 2 to 3 min in alternating nostrils until medical assistance is available naloxone 4 mg/actuation nasal spray (NARCAN) (20 sources) Start: 3 naloxone 4 mg/actuation nasal spray (NARCAN) Use 1 spray in one nostril as needed for overdose. May repeat every 2 to 3 min in alternating nostrils until medical assistance is available 1 Each 1 06/29/2022 Suspended Start: 06-29-2022 naloxone 4 mg/ actuation nasal spray (NARCAN) Use 1 spray in one nostril as needed for overdose. May repeat every 2 to 3 min in alternating nostrils until medical assistance is available 1 Each 1 06/29/2022 Active Nurtec ODT (2 sources) Start: 02-02-2024 take 1 dose by mouth every twenty-four hours as needed for headache Nurtec ODT Dose : 75 mg =, Oral, q24h, PRN as needed for migraine headache, 0 Refill(s) Start Date: 02/02/24 Status: Ordered Repeat number: 1 Start: 02-02-2024 take 1 mg by mouth once Nurtec ODT mg =, Oral, Once, 0 Refill(s) Start Date: 02/02/24 Status: Ordered ondansetron 4 mg oral tablet, disintegrating (1 source) Start: 04-04-2021 End: 04-07-2021 ondansetron 4 mg oral tablet, disintegrating Dose : 4 mg = 1 tab(s), Oral, q8h, X 3 day(s), # 9 tab(s), 0 Refill(s), 04/07/21 0:30:00 EST Start Date: 04/04/21 Stop Date: 04/07/21 Status: Ordered pantoprazole 40 mg delayed release oral tablet (20 sources) Proton Pump Inhibitor Start: 08-12-2021 End: 10-31-2021 take 1 tablet by mouth twice daily pantoprazole DR (PROTONIX) 40 mg tablet Take 40 mg by mouth twice daily. 11/01/2021 Active Start: 07-25-2020 End: 07-14-2021 take 1 tablet by mouth once daily Pantoprazole 40 mg Tablet,Delayed Release (Dr/Ec) Active 40 mg PO DAILY September 18, 2020 12:00am Complies with drug therapy Comment on above: Take 40 mg by mouth twice daily. potassium chloride 10 meq extended release oral capsule (20 sources) Start: 08-24-2024 potassium chloride 10 mEq oral capsule, extended release Dose : 20 mEq = 2 cap(s), Oral, BID, take with food. (Replaces previous prescription for the potassium chloride 20 mill equivalent tabs.), # 360 cap(s), 3 Refill(s), Pharmacy: [id number], Hypokalemia, 187.5, cm, 08/24/24 10:01:00 EDT, Height, kg, 08/24/24 10:01:00 EDT, Dosing Weight Start Date: 08/24/24 Status: Ordered Quantity: 360.0 Unit: cap(s) Repeat number: 4 Indications: Hypokalemia; Start: 08-25-2023 End: 09-28-2024 Potassium Chloride (Eqv-Klor -Con M20) 20 mEq oral tablet, extended release Dose : 20 mEq = 1 tab(s), Oral, BID, # 200 tab(s), 3 Refill(s), Pharmacy: [id number], 189.5, cm, 08/25/23 9:46:00 EDT, Height, kg, 08/25/23 9:42:00 EDT, Dosing Weight Start Date: 08/25/23 Stop Date: 09/28/24 Status: Ordered Start: 08-22-2022 Potassium Chlo ride (Oqj-Hfwt-Ecx M20) 20 mEq oral tablet, extended release Dose : 20 mEq = 1 tab(s), Oral, BID, # 180 tab(s), 3 Refill(s), Pharmacy: [id number], 190.5, cm, 08/22/22 10:56:00 EDT, Height, kg, 08/22/22 10:56:00 EDT, Dosing Weight Start Date: 08/22/22 Status: Ordered Start: 08-30-2021 take 1 tablet by marcus th twice daily Potassium Chloride 20 mEq tablet,ER particles/crystals Active 20 meq PO TWICE A DAY February 29, 2024 12:00am Complies with drug therapy Start: 08-30-2021 Potassium Chlo ride (Ajd-Evba-Wwc M20) 20 mEq oral tablet, extended release Dose : 20 mEq = 1 tab(s), Oral, BID, # 180 tab(s), 3 Refill(s), Pharmacy: [facility] #[id number], 190, cm, 08/30/21 11:29:00 EDT, Height, kg, 08/30/21 11:29:00 EDT, Dosing Weight Start Date: 08/30/21 Status: Ordered Start: 09-18-2020 End: 02-29-2024 take 2 tablets by mouth once daily Potassium Chloride 20 mEq tablet extended release Active 40 meq PO DAILY February 29, 2024 9:49am Complies with drug therapy Start: 09-18-2020 take 40 mEq by mouth once lara y Potassium Chloride Active 40 MEQ PO DAILY September 18, 2020 12:00am Start: 08-20-2020 End: 09-28-2024 take 1 tablet by mouth once daily potassium chloride CR (K-Tab) 20 MEQ ER tablet Take 20 mEq by mouth daily. 08/20/2020 09/28/2024 Active Start: 08-20-2020 Potassium Chlo ride (Kau-Zqta-Tuj M20) 20 mEq oral tablet, extended release Dose : 20 mEq = 1 tab(s), Oral, qDay, TAKE 1 TABLET BY MOUTH EVERY DAY TAKE WITH FOOD, # 30 tab(s), 6 Refill(s), Pharmacy: [facility] #[id number], 190.3, cm, 07/26/20 11:16:00 EST, Height, kg, 07/26/20 11:16:00 EST, Dosing Weight Start Date: 08/20/20 Status: Ordered Comment on above: Take 20 mEq by mouth twice daily. promethazine hydrochloride 25 mg oral tablet (2 sources) Phenothiazine Start: 04-04-2021 End: 04-09-2021 promethazine 25 mg oral tablet Dose : 25 mg = 1 tab(s), Oral, TID, # 15 tab(s), 0 Refill(s) Start Date: 04/04/21 Stop Date: 04/09/21 Status: Ordered Start: 04-04-2021 End: 04-08-2021 promethazine 25 mg rectal tatum ppository Dose : 25 mg = 1 supp, Rectal, q6hr, # 16 supp, 0 Refill(s) Start Date: 04/04/21 Stop Date: 04/08/21 Status: Ordered 24 hr QUEtiapine 50 mg extended release oral tablet (1 source) Atypical Antipsychotic Start: 04-08-2021 SEROquel XR 50 mg oral tablet, extended release Dose : 50 mg = 1 tab(s), Oral, qDay, # 30 tab(s), 1 Refill(s), Pharmacy: [facility] #[id number], Acute bacterial sinusitis, 190, cm, 04/08/21 15:15:00 EST, Height, kg, 04/08/21 15:15:00 EST, Dosing Weight Start Date: 04/08/21 Status: Ordered rimegepant 75 mg disintegrating oral tablet (20 sources) Start: 08-16-2021 take 1 tablet by mouth once daily as needed Rimegepant (Nurtec Odt) 75 mg tablet,disintegr ating Active 75 mg PO daily as needed February 29, 2024 12:00am Complies with drug therapy Start: 08-16-2021 NURTEC ODT 75 mg disintegrating tablet 08/16/2021 Active tamsulosin hydrochloride 0.4 mg oral capsule (20 sources) alpha-Adrenergic Trae Start: 06-23-2023 take 1 capsule by mouth once daily Tamsulosin 0.4 mg capsule Active 0.4 mg PO daily February 29, 2024 12:00am Complies with drug therapy Comment on above: Take 0.4 mg by mouth once daily. tiZANidine 4 mg oral tablet (20 sources) Central alpha-2 Adrenergic Agonist Start: 05-09-2024 take 1 tablet by mouth every six hours as needed tiZANidine (ZANAFLEX) 4 mg tablet Take 4 mg by mouth every 6 hours as needed. 05/09/2024 Active Start: 02-03-2024 End: 05-03-2024 tiZANidine (ZANAFLEX) 4 mg t ablet Take 1 tablet by mouth as directed. Take one in the afternoon and evening and take 2 tabs at bedtime. 360 tablet 2 02/03/2024 05/03/2024 Active Start: 12-22-2023 take 2 tablets by mo uth once daily at bedtime tiZANidine 4 mg oral tablet See Instructions, 2 tab(s) Oral qHS, # 180 tab(s), 1 Refill(s), Pharmacy: [id number], 190.5, cm, 12/14/23 14:09:00 EDT, Height, kg, 12/14/23 14:09:00 EDT, Dosing Weight Start Date: 12/22/23 Status: Ordered Quantity: 180.0 Unit: tab(s) Repeat number: 2 Start: 12-22-2023 take 1 tablet by marcus th once, then take 1 tablet by mouth in the evening, then take 2 tablets by mouth at bedtime tiZANidine (Zanaflex) 4 MG tablet TAKE 1 TABLET BY MOUTH EVERY afternoon, TAKE 1 TABLET BY MOUTH IN THE EVENING and TAKE 2 TABLETS BY MOUTH AT BEDTIME 12/22/2023 Active Start: 08-06-2023 take 2 tablets by mo uth once daily at bedtime tiZANidine 4 mg oral tablet See Instructions, 2 tab(s) Oral qHS, # 180 tab(s), 1 Refill(s), Pharmacy: [facility] #[id number], 189.5, cm, 06/23/23 14:23:00 EST, Height, kg, 06/23/23 14:23:00 EST, Dosing Weight Start Date: 08/06/23 Status: Ordered Start: 02-16-2023 End: 10-07-2023 tiZANidine (ZANAFLEX) 4 mg t ablet Take 1 tablet by mouth as directed. Take one in the afternoon and evening and take 2 tabs at bedtime. 360 tablet 0 07/09/2023 10/07/2023 Active Start: 08-15-2022 End: 07-20-2023 take 1 tablet by mouth three times daily tiZANidine (ZANAFLEX) 2 mg tablet Take 1 tablet by mouth three times daily. 90 tablet 5 08/15/2022 01/21/2023 Discontinued (Availability) Start: 07-16-2022 End: 02-16-2023 take 1 capsule by mouth once daily at bedtime tiZANidine HCl (ZANAFLEX) 6 mg capsule Take 1 capsule by mouth daily at bedtime. 30 capsule 5 08/15/2022 02/16/2023 Discontinued Start: 06-01-2022 End: 06-30-2022 take 1 capsule by mouth three times daily tiZANidine HCl (ZANAFLEX) 6 mg capsule Take 6 mg by mouth three times daily. 0 06/01/2022 06/30/2022 Discontinued Start: 02-19-2022 End: 08-28-2022 take 1 tablet by mouth every eight hours as needed tiZANidine (ZANAFLEX) 4 mg tablet Take 1 tablet by mouth three times daily as needed. 90 tablet 05/20/2022 05/30/2022 Discontinued Start: 12-05-2021 End: 02-19-2022 take 4-8 mg by mouth every twenty-four hours as needed tiZANidine (ZANAFLEX) 4 mg tablet Take 1-2 tablets by mouth at bedtime as needed. 60 tablet 1 02/19/2022 Active Start: 11-14-2021 End: 01-21-2022 take 2 tablets by mouth once daily as needed tiZANidine (ZANAFLEX) 4 mg tablet TAKE 2 TABLETS BY MOUTH EVERY NIGHT NEEDED FOR INSOMNIA 0 11/14/2021 01/21/2022 Discontinued Start: 08-30-2021 End: 09-27-2021 take 1-2 tablets by mouth every eight hours as needed for muscle spasms tiZANidine 4 mg oral tablet 1 to 2 tabs, Oral, q8h, PRN Spasm, # 60 tab(s), 1 Refill(s), Pharmacy: [facility] #[id number], 190, cm, 08/30/21 11:29:00 EDT, Height, kg, 08/30/21 11:29:00 EDT, Dosing Weight Start Date: 08/30/21 Stop Date: 09/27/21 Status: Ordered Start: 09-18-2020 take 2 capsules by m outh at bedtime Tizanidine 4 mg Capsule Active 8 mg PO AT BEDTIME September 18, 2020 12:00am Complies with drug therapy Start: 09-18-2020 take 8 mg by mouth at bedtime Tizanidine Active 8 MG PO AT BEDTIME September 18, 2020 12:00am Start: 05-28-2020 tiZANidine 4 m g oral tablet Dose : 8 mg = 2 tab(s), Oral, qHS, # 180 tab(s), 1 Refill(s), Pharmacy: [facility] #[id number], 191, cm, 05/28/20 10:19:00 EST, Height, kg, 05/28/20 10:19:00 EST, Dosing Weight Start Date: 05/28/20 Status: Ordered tiZANidine HCl - 4 MG Oral Capsule TAKE 2 CAPSULES EVERY 6 TO 8 HOURS. Quantity: 0 Refills: 0 Ordered: 29-Jun-2020 DO Active Comment on above: TAKE 2 TABLETS BY MO UTH EVERY NIGHT NEEDED FOR INSOMNIA Take 1-2 tablets by mouth at bedtime as needed. Take 1 tablet by marcus th three times daily as needed. Take 6 mg by mouth t hree times daily. Take 4 mg by mouth t hree times daily as needed. Take 1 tablet by marcus three times daily. Take 1 capsule by mo [facility] daily at bedtime. Take one in the afte rnoon and evening and take 2 tabs at bedtime. Take 1 tablet by marcus as directed. Take one in the afternoon and evening and take 2 tabs at bedtime. UNKNOWN TO PATIENT (1 source) valsartan 160 mg oral tablet (20 sources) Angiotensin 2 Receptor Trae Start: 07-16-2022 valsartan 80 mg oral tablet Dose : 80 mg = 1 tab(s), Oral, qDay, # 90 tab(s), 1 Refill(s), Pharmacy: [id number], Essential hypertension, 74, cm, 07/16/22 10:48:00 EST, Height Start Date: 07/16/22 Status: Ordered Start: 01-08-2022 End: 02-10-2025 take 1 tablet by mouth once daily Valsartan 160 mg tablet Active 160 mg PO daily February 29, 2024 12:00am Complies with drug therapy Comment on above: Take 160 mg by mouth every morning. 24 hr verapamil hydrochloride 240 mg extended release oral capsule (20 sources) Calcium Channel Trae Start: 05-16-2024 take 1 capsule by mouth every hour, then take 1 capsule by mouth once daily verapamil 240 mg/24 hours oral capsule, extended release Dose : 240 mg = 1 cap(s), Oral, qDay, # 90 cap(s), 3 Refill(s), Pharmacy: [id number], 190, cm, 05/02/24 14:31:00 EST, Height, kg, 05/02/24 14:31:00 EST, Dosing Weight Start Date: 05/16/24 Status: Ordered Quantity: 90.0 Unit: cap(s) Repeat number: 4 Start: 02-29-2024 take 2 tablets by mo [facility] at bedtime Verapamil 120 mg tablet extended release Active 240 mg PO AT BEDTIME February 29, 2024 9:51am Complies with drug therapy Start: 06-08-2023 take 1 capsule by mo [facility] every hour, then take 1 capsule by mouth once daily verapamil 240 mg/24 hours oral capsule, extended release Dose : 240 mg = 1 cap(s), Oral, qDay, # 90 cap(s), 3 Refill(s), Pharmacy: [id number], 189.5, cm, 06/04/23 13:05:00 EST, Height, kg, 06/04/23 13:05:00 EST, Dosing Weight Start Date: 06/08/23 Status: Ordered Start: 06-02-2022 take 1 capsule by mo [facility] every hour, then take 1 capsule by mouth once daily verapamil 240 mg/24 hours oral capsule, extended release Dose : 240 mg = 1 cap(s), Oral, qDay, # 90 cap(s), 3 Refill(s), Pharmacy: [id number], 189, cm, 05/13/22 14:54:00 EST, Height Start Date: 06/02/22 Status: Ordered Start: 06-02-2022 take 1 capsule by mo [facility] once daily verapamil ER (VERELAN) 240 mg 24 hr capsule Take 240 mg by mouth once daily. 06/02/2022 Active Start: 01-13-2022 End: 06-16-2022 take 1 capsule by mouth once daily verapamil ER 180 mg 24 hr capsule TAKE 1 CAPSULE BY MOUTH EVERY DAY. REPLACES PREVIOUS PRESCRIPTION FOR VERAPAMIL 120 MG CAPSULES 01/13/2022 06/16/2022 Discontinued Start: 08-27-2020 End: 02-29-2024 take 1 tablet by mouth at bedtime Verapamil 120 mg Tablet Extended Release Discontinued 120 mg PO AT BEDTIME September 18, 2020 12:00am February 29, 2024 9:55am Start: 08-27-2020 take 1 tablet by [facility] every hour, then take 1 tablet by mouth once daily at bedtime verapamil 120 mg/12 hours oral tablet, extended release Dose : 120 mg = 1 tab(s), Oral, qHS, # 90 tab(s), 3 Refill(s), Pharmacy: [facility] #[id number], 189, cm, 10/28/21 16:08:00 EDT, Height, kg, 10/28/21 16:08:00 EDT, Dosing Weight Start Date: 10/28/21 Status: Ordered take 1 capsule by mo [facility] once daily Verapamil HCl ER 120 MG Oral Capsule Extended Release 24 Hour TAKE 1 CAPSULE DAILY BEFORE EATING. Quantity: 0 Refills: 0 Ordered: 29-Jun-2020 DO Active Comment on above: Take 120 mg by mouth daily at bedtime. Take 120 mg by mouth . TAKE 1 CAPSULE BY MO UT EVERY DAY. REPLACES PREVIOUS PRESCRIPTION FOR VERAPAMIL 120 MG CAPSULES Take 240 mg by mouth once daily. zonisamide 100 mg oral capsule (20 sources) Anti-epileptic Agent Start: 11-10-2024 zonisamide 100 mg oral capsule Dose : 100 mg = 1 cap(s), Oral, Daily, 0 Refill(s) Start Date: 11/10/24 Status: Ordered Repeat number: 1 Start: 06-23-2023 take 1 capsule by mo ut at bedtime Zonisamide 50 mg capsule Active 50 mg PO AT BEDTIME February 29, 2024 12:00am Complies with drug therapy Completed/Discontinued Medications Medication Drug Class(es) Dates Sig (Normalized) Sig (Original) acetaminophen 325 mg / oxyCODONE hydrochloride 5 mg oral tablet (20 sources) Opioid Agonist Start: 01-09-2023 End: 02-17-2023 take 1-2 tablets by mouth every four hours as needed for pain oxyCODONE-acetami nophen (PERCOCET) 5-325 mg tablet Indications: S/P rotator cuff repair Take 1-2 tablets by mouth every 4 hours as needed for pain. 28 tablet 0 01/16/2023 Active Start: 08-27-2022 End: 12-25-2022 take 1 tablet by mouth three times daily as needed for pain oxyCODONE-acetaminophen (PERCOCET) 10-32 5 mg tablet Indications: Other chronic pain , Reflex sympathetic dystrophy Take 1 tablet by mouth three times daily as needed for pain for up to 30 days. Do not start before August 27, 2022. 90 tablet 08/27/2022 09/19/2022 Discontinued Start: 08-27-2022 oxycodone-acet aminophen 10-325 MG TABS oxycodone-acetaminophen 10 mg-325 mg tablet 0 08/27/2022 Active Start: 07-28-2022 End: 08-20-2022 take 1 tablet by mouth three times daily as needed for pain oxyCODONE-acetaminophen (PERCOCET) 10-32 5 mg tablet Indications: Other chronic pain , Reflex sympathetic dystrophy Take 1 tablet by mouth three times daily as needed for pain. Do not start before July 28, 2022. 90 tablet 0 07/28/2022 08/20/2022 Discontinued Start: 07-28-2022 take 1 tablet by marcus th three times daily as needed for pain oxyCODONE-acetaminophen (PERCOCET) 10-32 5 mg tablet Indications: Other chronic pain , Reflex sympathetic dystrophy Take 1 tablet by mouth three times daily as needed for pain. Do not start before July 28, 2022. 90 tablet 0 07/28/2022 Active Start: 07-28-2022 take 1 tablet by marcus th three times daily as needed for pain oxyCODONE-acetaminophen (PERCOCET) 10-32 5 mg tablet Indications: Other chronic pain , Reflex sympathetic dystrophy Take 1 tablet by mouth three times daily as needed for pain. Do not start before July 28, 2022. 90 tablet 0 07/28/2022 Active Start: 06-29-2022 End: 08-20-2022 take 1 tablet by mouth every eight hours as needed for pain oxyCODONE-acetaminophen (PERCOCET) 10-32 5 mg tablet Indications: Opiate withdrawal (HCC) , RSD (reflex sympathetic dystrophy) Take 1 tablet by mouth every 8 hours as needed for pain. 3 tablet 0 06/29/2022 08/20/2022 Discontinued Start: 06-28-2022 End: 07-17-2022 take 1 tablet by mouth three times daily as needed for pain oxyCODONE-acetaminophen (PERCOCET) 10-32 5 mg tablet Indications: Other chronic pain , Reflex sympathetic dystrophy Take 1 tablet by mouth three times daily as needed for pain. 90 tablet 0 06/28/2022 07/17/2022 Discontinued Start: 06-20-2022 End: 06-19-2022 oxyCODONE-acetaminophen (PER COCET) 10-325 mg tablet Indications: Reflex sympathetic dystrophy Take 1 tablet by mouth three times daily as needed for pain for up to 7 days. Do not start before June 20, 2022. 21 tablet 0 06/20/2022 06/19/2022 Discontinued Start: 11-22-2021 End: 06-27-2022 oxyCODONE-acetaminophen (PER COCET 10) 10-325 mg tablet Indications: Chronic pain syndrome Take 1 tablet by mouth three times daily as needed for pain for up to 30 days. Do not start before May 21, 2022. 90 tablet 05/21/2022 05/30/2022 Discontinued Start: 10-23-2021 End: 11-19-2021 take 1 tablet by mouth every eight hours as needed oxyCODONE-acetaminophen (PERCOCET 10) 10-325 mg tablet Take 1 tablet by mouth three times daily as needed. 0 10/23/2021 11/19/2021 Discontinued Start: 03-29-2021 End: 12-20-2021 oxyCODONE-acetaminophen (PER COCET 10) 10-325 mg tablet Take by mouth. 0 03/29/2021 12/20/2021 Discontinued Start: 10-27-2017 End: 02-29-2024 Oxycodone-Acetaminophen 1 TA BLET tablet Discontinued 1 - 2 {tbl} PO EVERY 6 HOURS NEEDED as needed for Pain October 27, 2017 12:00am February 29, 2024 9:49am Start: 10-27-2017 take 1 tablet by marcus th every six hours as needed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 Neoplasm of uncertain behavior of skin of finger; Translations: [Neoplasm of uncertain behavior of skin] Onset: 03-13-2021 03-12-2021 Episodic Other aftercare (20 sources) Long-term current use of 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 drug; Translations: [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] Onset: 12-20-2021 Episodic Other aftercare (20 sources) Prescribed medication regimen 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; Translations: [FDC (current) use of 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] Onset: 12-09-2022 12-09-2022 Episodic Other circulatory disease (20 sources) History of cerebrovascular accident; Translations: [Personal history of transient ischemic attack (TIA), and cerebral infarction without residual deficits] Onset: 11-19-2021 09-12-2023 Episodic Other circulatory disease (20 sources) History of subarachnoid hemorrhage; Translations: [Personal history of other diseases of the circulatory system] Onset: 12-20-2021 11-01-2021 Episodic Other connective tissue disease (20 sources) Myofascial pain syndrome; Translations: [Myalgia, other site] Onset: 05-27-2023 12-09-2022 Episodic Other connective tissue disease (1 source) Myalgia, other site; Translations: [Myofascial pain syndrome] Onset: 09-12-2023 Episodic Other diseases of kidney and ureters (20 sources) Abnormal renal function; Translations: [Disorder of kidney and ureter, unspecified] Onset: 12-20-2021 12-20-2021 Episodic Other gastrointestinal disorders (20 sources) Diarrhea; Translations: [Diarrhea, unspecified] Onset: 12-09-2022 Episodic Other male genital disorders (20 sources) Disorder of male genital organ; Translations: [Disorder of male genital organs, unspecified] Onset: 01-21-2022 01-21-2022 Episodic Other male genital disorders (20 sources) Scrotal mass; Translations: [Other specified disorders of the male genital organs] Onset: 01-21-2022 01-21-2022 Episodic Other male genital disorders (20 sources) Pain of left testicle; Translations: [Left testicular pain] Onset: 11-13-2021 02-19-2022 Episodic Other nervous system disorders (20 sources) Cerebral edema; Translations: [Cerebral edema] Onset: 10-20-2017 Resolved: 10-23-2017 10-23-2017 Chronic Other non-traumatic joint disorders (20 sources) Pain in right knee; Translations: [Pain in joint, lower leg] Onset: 11-19-2021 Episodic Other non-traumatic joint disorders (20 sources) Chronic pain of right upper limb; Translations: [Pain in right shoulder] Onset: 11-19-2021 Episodic Other non-traumatic joint disorders (20 sources) Hip stiff; Translations: [Stiffness of unspecified hip, not elsewhere classified] Onset: 12-20-2021 11-01-2021 Episodic Other non-traumatic joint disorders (20 sources) Pain in elbow; Translations: [Pain in right elbow] Onset: 07-09-2023 07-09-2023 Episodic Other screening for suspected conditions (not mental disorders or infectious disease) (20 sources) Patient encounter status; Translations: [Special screening for malignant neoplasms of colon] Onset: 04-21-2016 04-21-2016 Episodic Other upper respiratory infections (20 sources) Acute recurrent maxillary sinusitis; Translations: [Acute maxillary sinusitis] Onset: 06-01-2023 06-01-2023 Episodic Pneumonia (except that caused by tuberculosis or sexually transmitted disease) (20 sources) Lobar pneumonia; Translations: [Lobar pneumonia, unspecified organism] Onset: 06-01-2023 06-01-2023 Episodic Residual codes; unclassified (20 sources) Family history of prostate cancer; Translations: [Family history of malignant neoplasm of prostate] Onset: 01-21-2022 01-21-2022 Episodic Residual codes; unclassified (1 source) Pain, unspecified; Translations: [Generalized pain] Onset: 10-06-2024 Episodic Residual codes; unclassified (1 source) Pain Onset: 02-03-2024 Episodic Skin and subcutaneous tissue infections (20 sources) Pilonidal cyst with abscess; Translations: [Pilonidal cyst with abscess] Onset: 06-06-2010 06-06-2010 Episodic Spondylosis; intervertebral disc disorders; other back problems (20 sources) Chronic low back pain; Translations: [Lumbar radiculopathy] Onset: 03-26-2020 07-13-2017 Episodic Sprains and strains (20 sources) Strain of neck muscle; Translations: [Strain of muscle, fascia and tendon at neck level, subsequent encounter] Onset: 11-19-2021 01-21-2019 Episodic Superficial injury; contusion (20 sources) Contusion of hip; Translations: [Contusion of right hip region] Onset: 12-09-2022 08-30-2021 Episodic Syncope (1 source) Syncope and collapse; Translations: [Syncope and collapse] Onset: 05-16-2024 Episodic Unclassified (1 source) Cough, unspecified; Translations: [Cough, unspecified] Onset: 02-02-2024 Results Test Name Value Interpretation Reference Range Facility Orthopedic Visit Reporton Orthopedic Visit Report [facility] [address] [place] [address] OFFICE VISIT Date of Service: 02/09/25 MR#: [id number] Acct: [id number] Name: TATE BALTAZAR Rep #: [id number] : 1975 Provider: Dr. Fred alanis MD Age/Sex: 49/M Location: [facility] Status: Signed Intake Vital Signs 10/25/24 10:33 Height 6 ft Intake Visit Reasons: RIGHT SHOULDER Chief Complaint: Right Shoulder Pain Accompanied by: Self Is patient in pain?: Yes Allergies fentanyl Adverse Reaction (Verified 02/09/25 10:06) Other hydrocodone (From Vicodin) Adverse Reaction (Verified 02/09/25 10:06) Other Medications ???Medication ???Instructions ???Recorded ???Confirmed ???Type pantoprazole 40 mg tablet,delayed 40 mg PO DAILY 09/18/20 02/09/25 History release tizanidine 4 mg capsule 8 mg PO QHS 09/18/20 02/09/25 Hist ory bupropion HCl 300 mg 24 hr tablet, 300 mg PO QDAY 02/29/24 02/09/25 History extended release cyclobenzaprine 5 mg tablet 5 mg PO TID PRN 02/29/24 02/09/25 History duloxetine 60 mg capsule,delayed 60 mg PO QDAY 02/29/24 02/09/25 Hi story release fexofenadine 180 mg tablet 180 mg PO QDAY 02/29/24 02/09/25 H istory gabapentin 100 mg tablet 600 mg PO TID 02/29/24 02/09/25 Hi story mirabegron 25 mg tablet,extended 25 mg PO QDAY 02/29/24 02/09/25 Hi story release 24 hr (Myrbetriq) potassium chloride 20 mEq 40 meq PO DAILY 02/29/24 02/09/25 History tablet,extended release potassium chloride 20 mEq 20 meq PO BID 02/29/24 02/09/25 Hi story tablet,extended release(part/cryst) rimegepant 75 mg disintegrating 75 mg PO QDAY PRN 02/29/24 5 History tablet (Nurtec ODT) sucralfate 1 gram tablet 1 g PO 4X/DAY 02/29/24 02/09/25 Hi story tamsulosin 0.4 mg capsule 0.4 mg PO QDAY 02/29/24 02/09/25 H istory valsartan 160 mg tablet 160 mg PO QDAY 02/29/24 02/09/25 H istory verapamil 120 mg tablet,extended 240 mg PO QHS 02/29/24 02/09/25 Hi story release zonisamide 50 mg capsule 50 mg PO QHS 02/29/24 02/09/25 His [facility] Medical History Right rotator cuff tear Primary osteoarthritis, right shoulder Right shoulder pain Osteoarthritis of right knee Right knee pain Loose, teeth Hearing loss, right Alcohol abuse Mood disorder History of steroid therapy Chronic pain History of IBS GERD (gastroesophageal reflux disease) Hiatal hernia Non-smoker CPAP (continuous positive airway pressure) dependence Pain aggravated by walking Edema Irregular heart beat Hypertension Migraine headache Restless legs Injury of back Stroke/cerebrovascular accident Surgical History S/P rotator cuff repair Hx of cardiac catheterization Hx of colonoscopy History of esophagogastroduodenoscopy (EGD) Hx of vasectomy Hx of arthroscopic knee surgery Hx of tonsillectomy Hx of appendectomy Hx of shoulder surgery Social History household members: spouse and family Smoking Status: Former smoker alcohol intake: current alcohol intake frequency: holidays/special occasions only HPI RIGHT SHOULDER Details: This documentation accurately reflects the service provided and the decisions made by me, Dr. Fred Huber MD 02/09/25924. Part of today???s visit was documented by [ ], acting as scribe. TATE BALTAZAR is a 49 year old M here today for FU R shoulder MRI. Patient has surgery for in about a month. No acute changes but the patient has noticed a little bit more pain going down the shoulder to the outside of the arm as well as some mild biceps cramping. There has been no injury or acute change had a prior biceps tenodesis back in 2019 no pop or change to the contour Supplemental Info [facility] Imaging Services [address] [place] [address] [id number] Upper Ext Joint Only(Routine) MR#: [id number] Acct: [id number] Name: TATE BALTAZAR Rep #: [id number] : 1975 M 49 From: Omega Russo MD PCP: Dr. Lanette Harkins, Status: REG CLI Study: Upper Ext Joint Only(Routine) Date of Exam: 11/15/24 Exam# [id number] Ordering Dr: Fred Huber MD PROCEDURE: UPPER EXT JOINT ONLY(ROUTINE) 11/15/2024 REASON FOR EXAM: PAIN, 2 PRIOR SURGERIES TECHNIQUE: T1, T2, PD, UPPER EXT JOINT ONLY(ROUTINE) Multiplanar and multisequence images were obtained without IV contrast administration. COMPARISON: October 25, 2024 x-ray FINDINGS: Bone Marrow: Suture anchors are noted in the humeral head consistent with codi (more content not included)... Normal [facility] 01-24-2025 [facility] Telephone ([employer]) TATE BALTAZAR Annette ([id number]) 1975 M Date Time Provider Department 01/24/25 [facility]UNE[facility]BRIDE During your visit today, we recorded the following information about you: Allergies As of Date: 01/24/2025 Noted Allergy Reaction HYDROCHLOROTHIAZIDE 05/18/2020 14 - Other: See Comments SULFAMETHOXAZOLE-TRIMETHOPRI M 03/26/2020 16 - Unknown 14 - Other: See Comments ACETAMINOPHEN 09/02/2022 14 - Other: See Comments Comments: Rebound headaches ACETAMINOPHEN-CODEINE 07/24/2021 16 - Unknown DOXYCYCLINE 05/13/2023 4 - Hives FENTANYL 12/04/2024 9 - Itching 14 - Other: See Comments Comments: Jittery HYDROCODONE 09/25/2020 14 - Other: See Comments IBUPROFEN 12/04/2024 14 - Other: See Comments Comments: Reported by patient and spouse that patient cannot take this medication due to stroke history and was advised to avoid it ORANGE JUICE 11/19/2021 16 - Unknown ORANGE OIL 08/07/2015 4 - Hives 14 - Other: See Comments PSEUDOEPHEDRINE 05/20/2021 16 - Unknown VICODIN (HYDROCODONE-ACETAMINOPHE* 1 - Mental Status Change 9 - Itching ARIPIPRAZOLE 02/22/2021 1 - Mental Status Change Date Reviewed: 12/04/2024 Reviewed by: Miguel Reyes, RN - Fully Assessed Prescriptions as of 01/25/2025 - cyclobenzaprine (FLEXERIL) 5 mg tablet TAKE 1 TABLET BY MOUTH THREE TIMES DAILY NEEDED - MYRBETRIQ 25 mg Tb24 Take 25 mg by mouth once daily. - sucralfate (CARAFATE) 1 gram tablet Take 1 g by mouth four times daily. - tiZANidine (ZANAFLEX) 4 mg tablet Take 4 mg by mouth every 6 hours as needed. - pregabalin (LYRICA) 150 mg capsule Take 1 capsule by mouth three times a day. - ondansetron (ZOFRAN) 8 mg tablet Take 8 mg by mouth every 8 hours as needed. - fexofenadine (KIMBERLY) 180 mg tablet Take 180 mg by mouth once daily. - DULoxetine (CYMBALTA) 60 mg capsule Take 180 mg by mouth once daily. - zonisamide (ZONEGRAN) 50 mg capsule Take 50 mg by mouth once daily. - fluticasone (FLONASE) 50 mcg/actuation nasal spray Use 2 Sprays in each nostril once daily. - gabapentin (NEURONTIN) 600 mg tablet Take 1 tablet by mouth three times a day for 90 days. - guaiFENesin-dextromethorphan (ROBITUSSIN DM) 100-10 mg/5 mL syrup Take 10 mL by mouth three times a day as needed. - atorvastatin (LIPITOR) 40 mg tablet 1 tablet by ORAL/FEEDING TUBE route daily at bedtime. - tamsulosin (FLOMAX) 0.4 mg Take 0.4 mg by mouth once daily. - lidocaine (LIDODERM) 5 % Apply 1 Patch as directed as directed. Apply 1 patch for 12 hours then remove for 12 hours - docusate sodium (COLACE) 100 mg capsule Take 1 capsule by mouth twice daily. - naloxone 4 mg/actuation nasal spray (NARCAN) Use 1 spray in one nostril as needed for overdose. May repeat every 2 to 3 min in alternating nostrils until medical assistance is available - verapamil ER (VERELAN) 240 mg 24 hr capsule Take 240 mg by mouth once daily. - buPROPion XL (WELLBUTRIN XL) 300 mg 24 hr tablet TAKE 1 TABLET BY MOUTH EVERY 24 HOURS. REPLACES PREVIOUS PRESCRIPTION FOR BUPROPION 150 MG TABLET - valsartan (DIOVAN) 160 mg tablet Take 160 mg by mouth every morning. - cetirizine (ZYRTEC) 10 mg tablet Take 10 mg by mouth once daily. - AJOVY SYRINGE 225 mg/1.5 mL syringe - pantoprazole DR (PROTONIX) 40 mg tablet Take 40 mg by mouth twice daily. - potassium chloride ER (K-DUR, KLOR-CON) 20 mEq tablet Take 20 mEq by mouth twice daily. - NURTEC ODT 75 mg disintegrating tablet Problem List As Of Date 01/24/2025 Noted Resolved Pilonidal cyst with abscess [L05.01] 06/06/2010 Epigastric pain [R10.13] 09/27/2015 10/23/2017 Essential hypertension [I10] 10/01/2015 Depression [F32.A] 10/01/2015 Reflex sympathetic dystrophy [G90.50] 10/01/2015 Encounter for sterilization [Z30.2] 04/21/2016 Nontraumatic subcortical hemorrhage of left cer*10/19/2017 Dysphagia due to recent stroke [I69.391] 10/20/2017 Acute right hemiparesis (HCC) [G81.91] 10/20/2017 TSH deficiency [E03.8] 10/20/2017 Cerebral edema (HCC) [G93.6] 10/20/2017 10/23/2017 Migraine without aura [G43.009] 10/21/2017 Arthropathy of lumbar facet joint [M47.816] 07/10/2020 Radiculopathy, lumbar region [M54.16] 03/26/2020 History of CVA (cerebrovascular accident) [Z86.*11/19/2021 Chronic low back pain [M54.50, G89.29] 11/19/2021 DDD (degenerative disc disease), lumbar [M51.36*03/26/2020 Gastroesophageal reflux disease with esophagiti*11/19/2021 Generalized osteoarthritis [M15.9] 03/26/2020 Hypercalcemia [E83.52] 11/19/2021 Intractable chronic migraine without aura [G43.*03/07/2020 Osteoarthritis of right shoulder [M19.011] 07/10/2020 Palpitations [R00.2] 11/19/2021 Strain of neck muscle [S16.1XXA] 11/19/2021 Spasm of back muscles [M62.830] 11/19/2021 Pain in right knee [M25.561] 11/19/2021 Chronic right shoulder pain [M25.511, G89.29] 11/19/2021 Stiffness of hip michelle (more content not included)... Normal [facility] Knee 4 or More Viewson 12-05 Knee 4 or More Views [facility] Imaging Services [address] [place] [address] Knee 4 or More Views MR#: [id number] Acct: [id number] Name: TATE BALTAZAR Rep #: [id number] : 1975 M 49 From: Maico Casillas MD PCP: Dr. Lanette Harkins DO Status: DEP AMB Study: Knee 4 or More Views Date of Exam: 12/05/24 Exam# [id number] Ordering Dr: Fred Huber MD EXAM: XR Right Knee Complete, 4 or More Views CLINICAL INDICATION: PAIN, INJURY 2 DAYS AGO. TECHNIQUE: Four or more views of the right knee. COMPARISON: No relevant prior studies available. FINDINGS: BONES/JOINTS: Unremarkable. No acute fracture. No dislocation. SOFT TISSUES: Unremarkable. RAD/Knee 4 or More Views IMPRESSION: No acute fracture. Reading Location: [id number] CC: Dr. Lanette Harkins DO; Dr. Fred Huber MD Wafer Cleaner: Signed Normal [facility] Orthopedic Visit Reporton Orthopedic Visit Report [facility] [address] [place] [address] OFFICE VISIT Date of Service: 12/05/24 MR#: [id number] Acct: [id number] Name: TATE BALTAZAR Rep #: [id number] : 1975 Provider: Dr. Fred alanis MD Age/Sex: 49/M Location: [facility] Status: Signed Intake Vital Signs 10/25/24 10:33 Height 6 ft Intake Visit Reasons: RIGHT KNEE Chief Complaint: Right Knee ER Follow-Up Accompanied by: Is patient in pain?: Yes Pain scale (1-10): 7 Allergies fentanyl Adverse Reaction (Verified 12/05/24 10:05) Other hydrocodone (From Vicodin) Adverse Reaction (Verified 12/05/24 10:04) Other Medications ???Medication ???Instructions ???Recorded ???Confirmed ???Type pantoprazole 40 mg tablet,delayed 40 mg PO DAILY 09/18/20 12/05/24 History release tizanidine 4 mg capsule 8 mg PO QHS 09/18/20 12/05/24 Hist ory bupropion HCl 300 mg 24 hr tablet, 300 mg PO QDAY 02/29/24 12/05/24 History extended release cyclobenzaprine 5 mg tablet 5 mg PO TID PRN 02/29/24 12/05/24 History duloxetine 60 mg capsule,delayed 60 mg PO QDAY 02/29/24 12/05/24 Hi story release fexofenadine 180 mg tablet 180 mg PO QDAY 02/29/24 12/05/24 H istory gabapentin 100 mg tablet 600 mg PO TID 02/29/24 12/05/24 Hi story mirabegron 25 mg tablet,extended 25 mg PO QDAY 02/29/24 12/05/24 Hi story release 24 hr (Myrbetriq) potassium chloride 20 mEq 40 meq PO DAILY 02/29/24 12/05/24 History tablet,extended release potassium chloride 20 mEq 20 meq PO BID 02/29/24 12/05/24 Hi story tablet,extended release(part/cryst) rimegepant 75 mg disintegrating 75 mg PO QDAY PRN 02/29/24 5 History tablet (Nurtec ODT) sucralfate 1 gram tablet 1 g PO 4X/DAY 02/29/24 12/05/24 Hi story tamsulosin 0.4 mg capsule 0.4 mg PO QDAY 02/29/24 12/05/24 H istory valsartan 160 mg tablet 160 mg PO QDAY 02/29/24 12/05/24 H istory verapamil 120 mg tablet,extended 240 mg PO QHS 02/29/24 12/05/24 Hi story release zonisamide 50 mg capsule 50 mg PO QHS 02/29/24 12/05/24 His tory [facility] Medical History Right rotator cuff tear Primary osteoarthritis, right shoulder Right shoulder pain Osteoarthritis of right knee Right knee pain Loose, teeth Hearing loss, right Alcohol abuse Mood disorder History of steroid therapy Chronic pain History of IBS GERD (gastroesophageal reflux disease) Hiatal hernia Non-smoker CPAP (continuous positive airway pressure) dependence Pain aggravated by walking Edema Irregular heart beat Hypertension Migraine headache Restless legs Injury of back Stroke/cerebrovascular accident Surgical History S/P rotator cuff repair Hx of cardiac catheterization Hx of colonoscopy History of esophagogastroduodenoscopy (EGD) Hx of vasectomy Hx of arthroscopic knee surgery Hx of tonsillectomy Hx of appendectomy Hx of shoulder surgery Social History household members: spouse and family Smoking Status: Former smoker alcohol intake: current alcohol intake frequency: holidays/special occasions only HPI RIGHT KNEE Details: This documentation accurately reflects the service provided and the decisions made by me, Dr. Fred Huber MD 12/05/24 0840. Part of today???s visit was documented by [ ], acting as scribe. TATE BALTAZAR is a 49 year old M here today for FU R knee. Was in ED over weekend. This was in [facility] in [place]. He was just getting off the couch felt a pop and some pain anteriorly in the knee. There is some mild swelling difficulty ambulating. was given a dose of Percocet in the emergency department as well as crutches and a knee immobilizer asked to follow-up with myself. He is well 1 month out from last knee Euflexxa injection for mild patellofemoral osteoarthritis. The records state that there is x-rays of the knee showing trace knee joint fluid no fracture or malalignment also on x-ray of the pelvis no acute fracture or malalignment no notes from the date of the visit just the x-ray reports Supplemental Info [facility] Imaging Services [address] [place] [address] [phone] Lower Ext Joint Only (Routine) MR#: [id number] Acct: [id number] Name: TATE BALTAZAR Rep #: [id number] : 1975 M 49 From: Mateo Canada DO PCP: Dr. Lanette Harkins DO Status: REG CLI Study: Lower Ext Joint Only (Routine) Date of Exam: 03/19/24 Exam# [id number] Ordering Dr: Fred Huber MD REPORT (more content not included)... Normal [facility] ED NOTEon 12-04-2024 ED NOTE HNO ID: [id number] Author: DARÍO SNOW RN Service: Emergency Medicine Author Type: Registered Nurse Type: ED Notes Filed: 12/04/2024 15:09 Note Text: Patient Call Back Information How are you doing ? better Did we appropriately manage your pain? Yes Did you understand your discharge instructions? Yes Did you get your prescriptions filled? Yes Were you able to make a follow-up appointment with your physician? Yes Were you comfortable during your stay here? Yes Did a member of the ER nursing team round on you during your visit? Yes You will receive a patient satisfaction survey in the mail in the nest 2 weeks, please take the time to fill out the survey as your input from your ER visit is very important to us. Yes Can we do anything else to help you? No [facility] ED NOTE HNO ID: [id number] Author: MIGUEL REYES RN Service: Emergency Medicine Author Type: Registered Nurse Type: ED Notes Filed: 12/04/2024 02:09 Note Text: Patient discharge instructions given to patient. Patient educated on discharge instructions. Patient denied having questions at this time regarding discharge instructions. Patient discharged home at this time. [facility] ED NOTE HNO ID: [id number] Author: MIGUEL REYES RN Service: Emergency Medicine Author Type: Registered Nurse Type: ED Notes Filed: 12/04/2024 02:08 Note Text: Patient informed about the name of the medication(s), what the medication(s) is(are) for, and what to expect with/from med administration. Patient given opportunity to ask questions. Medication(s) include: Percocet [facility] ED NOTE HNO ID: [id number] Author: MIGUEL REYES RN Service: Emergency Medicine Author Type: Registered Nurse Type: ED Notes Filed: 12/04/2024 00:59 Note Text: Patient informed about the name of the medication(s), what the medication(s) is(are) for, and what to expect with/from med administration. Patient given opportunity to ask questions. Medication(s) include: Tylenol [facility] ED NOTE HNO ID: [id number] Author: MIGUEL REYES RN Service: Emergency Medicine Author Type: Registered Nurse Type: ED Notes Filed: 12/04/2024 00:50 Note Text: Patient informed about the name of the medication(s), what the medication(s) is(are) for, and what to expect with/from med administration. Patient given opportunity to ask questions. Medication(s) include: Motrin [facility] XR HIP 3V PELV+ AP/LAT RTon 12-04-2024 XR HIP 3V PELV+ AP/LAT RT * * *Final Report* * * DATE OF EXAM: Dec 04 2024 12:50AM LDX 5352 - XR HIP 3V PELV+ AP/LAT RT / PROCEDURE REASON: Hip pain, acute, fx suspected, initial exam * * * * Physician Interpretation * * * * EXAMINATION: XR HIP 3V PELV+ AP/LAT RT, XR KNEE 2V AP/LAT RT HISTORY: RT HIP/KNEE PAIN (accession [id number]), rtknee and hip pain (accession [id number]) Hip pain, acute, fx suspected, initial exam. COMPARISON: 05/16/2024 pelvic radiograph RESULT: See Impression. IMPRESSION: Pelvis: No acute fracture or malalignment RIGHT knee: Trace knee joint fluid. No fracture, malalignment. Wafer Cleaner: [employer] Transcribe Date/Time: Dec 04 2024 2:52A Dictated by : RAFI COLÓN MD This examination was interpreted and the report reviewed and electronically signed by: RAFI COLÓN MD on Dec 04 2024 2:55AM EST [id number] Normal [facility] XR KNEE 2V AP/LAT RTon 12-04 XR KNEE 2V AP/LAT RT * * *Final Report* * * DATE OF EXAM: Dec 04 2024 12:59AM LDX 5207 - XR KNEE 2V AP/LAT RT / PROCEDURE REASON: Trauma * * * * Physician Interpretation * * * * EXAMINATION: XR HIP 3V PELV+ AP/LAT RT, XR KNEE 2V AP/LAT RT HISTORY: RT HIP/KNEE PAIN (accession [id number]), rtknee and hip pain (accession [id number]) Hip pain, acute, fx suspected, initial exam. COMPARISON: 05/16/2024 pelvic radiograph RESULT: See Impression. IMPRESSION: Pelvis: No acute fracture or malalignment RIGHT knee: Trace knee joint fluid. No fracture, malalignment. Wafer Cleaner: [employer] Transcribe Date/Time: Dec 04 2024 2:52A Dictated by : RAFI COLÓN MD This examination was interpreted and the report reviewed and electronically signed by: RAFI COLÓN MD on Dec 04 2024 2:55AM EST [id number] Normal [facility] CNOVon 11-30-2024 CNOV Office Visit (ROBBY ) TATE BALTAZAR ([id number]) 1975 M Date Time Provider Department 11/30/24 1:00 PM NURSE PAIN INFUSION SHAUN LUCIO During your visit today, we recorded the following information about you: Pulse Respiration Blood pressure Weight 69/minute 16/minute 145/94 111.9 kg Edelmira Perera RN 12/01/2024 8:02 AM Signed Pt here for repeat lidocaine infusion. Pt reports 25% improvement with last infusion x 1 week. Pts father here for transport home. Pt has been NPO x 6 hours Pt reports that he had a red spot on his scrotum that was draining puss a week ago. He is currently on ATB and has 1 day left. Pt reports that the spot is improving, not red, not draining. 98.[address] Mcbride notified, he advised it is okay to proceed with procedure. CLEM Cook Lisa A, RN 11/30/2024 4:13 PM Signed Infusion complete. 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 Pt reports that his pain is 5/10. Edelmira Perera RN November 30, 2024 4:13 PM Puneet Mcbride MD 12/02/2024 11:47 AM Signed PROCEDURE: IV Lidocaine infusion Therapy DATE OF SERVICE: November 30, 2024 PREPROCEDURE DIAGNOSES: Chronic pain syndrome Chronic pain syndrome (primary encounter diagnosis) Chronic right shoulder pain Contusion of right hip region ANESTHESIA: IV Lidocaine, Versed COMPLICATIONS: None CONSENT: The risks and benefits of Lidocaine infusion therapy were discussed with the patient. The patient verbalizes understanding and wishes to proceed with the infusion therapy at this time for control of intractable pain. Informed consent was thereby obtained. DESCRIPTION OF PROCEDURE: After written informed consent was obtained as above, the patient was taken to the operating room. Standard ASA monitors were applied. O2 was applied as well.The patient received 2 mg of IV Versed by the prior to initiation of the Lidocaine infusion. The initial verbal analogue scale at the beginning of the infusion was 8 on a scale from 0 to 10. The patient's pain scale was monitored for the next 15-minute increments. VS were monitored throughout. A total of 112 mg ofLidocaine was administered over 5 minutes followed by a total of 224 milligrams of lidocaine over the next 1 hour The patient was monitored very closely during the entire infusion procedure today. The patient's vital signs remained stable throughout the postoperative period. They were given written instructions to follow up at [facility] Pain Dept. in the next 4 to 6 weeks for further plan of care and overall evaluation. COMMENTS: Patient tolerated the infusion without any complications. Allergies As of Date: 11/30/2024 Noted Allergy Reaction HYDROCHLOROTHIAZIDE 05/18/2020 14 - Other: See Comments SULFAMETHOXAZOLE-TRIMETHOPRI M 03/26/2020 16 - Unknown 14 - Other: See Comments ACETAMINOPHEN 09/02/2022 14 - Other: See Comments Comments: Rebound headaches ACETAMINOPHEN-CODEINE 07/24/2021 16 - Unknown DOXYCYCLINE 05/13/2023 4 - Hives HYDROCODONE 09/25/2020 14 - Other: See Comments ORANGE JUICE 11/19/2021 16 - Unknown ORANGE OIL 08/07/2015 4 - Hives 14 - Other: See Comments PSEUDOEPHEDRINE 05/20/2021 16 - Unknown VICODIN (HYDROCODONE-ACETAMINOPHE* 1 - Mental Status Change 9 - Itching ARIPIPRAZOLE 02/22/2021 1 - Mental Status Change Date Reviewed: 11/30/2024 Reviewed by: Edelmira Perera RN - Fully Assessed Primary Visit Diagnosis:Chronic pain syndrome [G89.4] Other Visit Diagnoses:Chronic right shoulder pain [M25.511, G89.29] Contusion of right hip region [S70.01XA] Order(s):[] ondansetron (PF) 8 mg injection (ZOFRAN)Disp: Rfl: [] midazolam (PF) 2 mg injection (VERSED)Disp: Rfl: NaCl 0.9% iv infusionDisp: Rfl: [] lidocaine (PF) 10 mg/mL (1 %) 112.3 mg in NaCl 0.9% 112.3 mL (XYLOCAINE)Disp: Rfl: [] lidocaine (PF) 10 mg/mL (1 %) 224.6 mg in NaCl 0.9% 224.6 mL (XYLOCAINE)Disp: Rfl: Prescriptions as of 12/02/2024 - cyclobenzaprine (FLEXERIL) 5 mg tablet TAKE 1 TABLET BY MOUTH THREE TIMES DAILY NEEDED - MYRBETRIQ 25 mg Tb24 Take 25 mg by mouth once daily. - sucralfate (CARAFATE) 1 gram tablet Take 1 g by mouth four times daily. - tiZANidine (ZANAFLEX) 4 mg tablet Take 4 mg by mouth every 6 hours as needed. - pregabalin (LYRICA) 150 mg capsule Take 1 capsule by mouth three times a day. - ondansetron (ZOFRAN) 8 mg tablet Take 8 mg by mouth every 8 hours as needed. - fexofenadine (KIMBERLY) 180 mg tablet Take 180 mg by mouth once daily. - DULoxetine (CYMBALTA) 60 mg capsule Take 180 mg by mouth once daily. - zonisamide (ZONEGRAN) 50 mg capsule Take 50 mg by mouth once daily. - fluticasone (FLONASE) 50 mcg/actuation nasal spray Use 2 Sprays in each nostril once daily. - gabapentin (NEURONTIN) 600 mg tablet Take 1 tablet by mouth three times a day for 90 days. - guaiFENesin-dextromethorphan (MATTIE (more content not included)... [facility] Orthopedic Visit Reporton Orthopedic Visit Report [facility] [address] [place] [address] [place] [id number] OFFICE VISIT Date of Service: 11/21/24 MR#: [id number] Acct: [id number] Name: TATE BALTAZAR Rep #: [id number] : 1975 Provider: Dr. Fred alanis MD Age/Sex: 49/M Location: [facility] Status: Signed Intake Vital Signs 10/25/24 10:33 Height 6 ft Weight: 240 lb BMI 32.5 Intake Visit Reasons: RIGHT SHOULDER Chief Complaint: Right shoulder MRI review Is patient in pain?: Yes (Right shoulder ) Pain scale (1-10): 7 Allergies hydrocodone (From Vicodin) Adverse Reaction (Verified 11/21/24 11:39) Other Medications ???Medication ???Instructions ???Recorded ???Confirmed ???Type pantoprazole 40 mg tablet,delayed 40 mg PO DAILY 09/18/20 11/21/24 History release tizanidine 4 mg capsule 8 mg PO QHS 09/18/20 11/21/24 Hist ory bupropion HCl 300 mg 24 hr tablet, 300 mg PO QDAY 02/29/24 11/21/24 History extended release cyclobenzaprine 5 mg tablet 5 mg PO TID PRN 02/29/24 11/21/24 History duloxetine 60 mg capsule,delayed 60 mg PO QDAY 02/29/24 11/21/24 Hi story release fexofenadine 180 mg tablet 180 mg PO QDAY 02/29/24 11/21/24 H istory gabapentin 100 mg tablet 600 mg PO TID 02/29/24 11/21/24 Hi story mirabegron 25 mg tablet,extended 25 mg PO QDAY 02/29/24 11/21/24 Hi story release 24 hr (Myrbetriq) potassium chloride 20 mEq 40 meq PO DAILY 02/29/24 11/21/24 History tablet,extended release potassium chloride 20 mEq 20 meq PO BID 02/29/24 11/21/24 Hi story tablet,extended release(part/cryst) rimegepant 75 mg disintegrating 75 mg PO QDAY PRN 02/29/24 5 History tablet (Nurtec ODT) sucralfate 1 gram tablet 1 g PO 4X/DAY 02/29/24 11/21/24 Hi story tamsulosin 0.4 mg capsule 0.4 mg PO QDAY 02/29/24 11/21/24 H istory valsartan 160 mg tablet 160 mg PO QDAY 02/29/24 11/21/24 H istory verapamil 120 mg tablet,extended 240 mg PO QHS 02/29/24 11/21/24 Hi story release zonisamide 50 mg capsule 50 mg PO QHS 02/29/24 11/21/24 His tory [facility] Medical History Right rotator cuff tear Primary osteoarthritis, right shoulder Right shoulder pain Osteoarthritis of right knee Right knee pain Loose, teeth Hearing loss, right Alcohol abuse Mood disorder History of steroid therapy Chronic pain History of IBS GERD (gastroesophageal reflux disease) Hiatal hernia Non-smoker CPAP (continuous positive airway pressure) dependence Pain aggravated by walking Edema Irregular heart beat Hypertension Migraine headache Restless legs Injury of back Stroke/cerebrovascular accident Surgical History S/P rotator cuff repair Hx of cardiac catheterization Hx of colonoscopy History of esophagogastroduodenoscopy (EGD) Hx of vasectomy Hx of arthroscopic knee surgery Hx of tonsillectomy Hx of appendectomy Hx of shoulder surgery Social History household members: spouse and family Smoking Status: Former smoker alcohol intake: current alcohol intake frequency: holidays/special occasions only HPI RIGHT SHOULDER Details: This documentation accurately reflects the service provided and the decisions made by me, Dr. Fred Huber MD 11/21/24 1040. Part of today???s visit was documented by [ ], acting as scribe. TATE BALTAZAR is a 49 year old M here today for FU R shoulder MRI. Has had prior injections and PT recently. Still hurts. worse with lifting or draining the car old to take the plug out. Patient had prior rotator cuff surgery about 3 years ago now. As well as a procedure on the biceps is unsure exactly when that was. Supplemental Info [facility] Imaging Services [address] [place] [address] Upper Ext Joint Only(Routine) MR#: [id number] Acct: [id number] Name: TATE BALTAZAR Rep #: [id number] : 1975 M 49 From: Omega Russo MD PCP: Dr. Lanette Harkins, DO Status: REG CLI Study: Upper Ext Joint Only(Routine) Date of Exam: 11/15/24 Exam# [id number] Ordering Dr: Fred Huber MD PROCEDURE: UPPER EXT JOINT ONLY(ROUTINE) 11/15/2024 REASON FOR EXAM: PAIN, 2 PRIOR SURGERIES TECHNIQUE: T1, T2, PD, UPPER EXT JOINT ONLY(ROUTINE) Multiplanar and multisequence images were obtained without IV contrast administration. COMPARISON: October 25, 2024 x-ray FINDINGS: Bone Marrow: Suture anchors are noted in the humeral head consistent with prior rotator cuff repair. There is no bony contusion o (more content not included)... Normal [facility] Magnetic resonance imaging r eportOrdered By: Omega Russo on 11-16-2024 Study report [facility] Services [address] [place] [address] Upper Ext Joint Only(Routine) MR#: [id number] Acct: [id number] Name: TATE BALTAZAR Rep #: [id number] : 1975 M 49 From: Amando Russo MD PCP: Dr. Lanette Harkins, Status: REG CLI Study:Upper Ext Joint Only(Routine) Date of Exam: 11/15/24 Exam# [id number] Ordering Dr: Fred Huber MD PROCEDURE: UPPER EXT JOINT ONLY(ROUTINE) 11/15/2024 REASON FOR EXAM: PAIN, 2 PRIOR SURGERIES TECHNIQUE: T1, T2, PD, UPPER EXT JOINT ONLY(ROUTINE) Multiplanar and multisequence images were obtained without IV contrast administration. COMPARISON: October 25, 2024 x-ray FINDINGS: Bone Marrow: Suture anchors are noted in the humeral head consistent with prior rotator cuff repair. There is no bony contusion or occult fracture. AC joint: There is moderate AC joint hypertrophy without evidence of separation. There is a type 3 acromion with impingement configuration. Rotator cuff: There is no muscular atrophy. There is a full-thickness, 50% withtear of the distal supraspinatus without retraction. There is severe distal infraspinatus tendinopathy without full-thickness tear. There is severe distal subscapularis tendinopathy without full-thickness tear or retraction. The teres minor appearsintact. Labrum: There is a tear of the labrum from the 12 o'clock-2 o'clock position extending into the biceps tendon anchor. Biceps: The biceps tendon is absent from the biceps tendon groove with avulsion. Effusion: There is a trace joint effusion which extends into the subacromial subdeltoid bursa. MRI/Upper Ext Joint Only(Routine) IMPRESSION: Suture anchors are noted in the humeral head consistent with prior rotator cuff repair. There is moderate AC joint hypertrophy without evidence of separation. There is a type 3 acromion with impingement configuration. There is a full-thickness, 50% with tear of the distal supraspinatus without retraction. There is severe distal infraspinatus tendinopathy without full-thickness tear. There is severe distal subscapularis tendinopathy without full-thickness tear orretraction. There is a tear of the labrum from the 12 o'clock-2 o'clock position extending into the biceps tendon anchor. The biceps tendon is absent from the biceps tendon groove with avulsion. There is a trace joint effusion which extends into the subacromial subdeltoid bursa. Reading Location: [facility] CC: Dr. Lanette Harkins DO; Dr. Fred Huber MD ~ Wafer Cleaner: Signed [facility] Upper Ext Joint Only(Routine )on 11-15-2024 Upper Ext Joint Only(Routine) [facility] Imaging Services [address] [place] [id number] Upper Ext Joint Only(Routine) MR#: [id number] Acct: [id number] Name: TATE BALTAZAR Rep #: [id number] : 1975 M 49 From: Omega Russo MD PCP: Dr. Lanette Harkins DO Status: REG CLI Study: Upper Ext Joint Only(Routine) Date of Exam: 0 11/15/24 Exam# [id number] Ordering Dr: Fred Huber MD PROCEDURE: UPPER EXT JOINT ONLY(ROUTINE) 11/15/2024 REASON FOR EXAM: PAIN, 2 PRIOR SURGERIES TECHNIQUE: T1, T2, PD, UPPER EXT JOINT ONLY(ROUTINE) Multiplanar and multisequence images were obtained without IV contrast administration. COMPARISON: October 25, 2024 x-ray FINDINGS: Bone Marrow: Suture anchors are noted in the humeral head consistent with prior rotator cuff repair. There is no bony contusion or occult fracture. AC joint: There is moderate AC joint hypertrophy without evidence of separation. There is a type 3 acromion with impingement configuration. Rotator cuff: There is no muscular atrophy. There is a full-thickness, 50% with tear of the distal supraspinatus without retraction. There is severe distal infraspinatus tendinopathy without full-thickness tear. There is severe distal subscapularis tendinopathy without full-thickness tear or retraction. The teres minor appears intact. Labrum: There is a tear of the labrum from the 12 o'clock-2 o'clock position extending into the biceps tendon anchor. Biceps: The biceps tendon is absent from the biceps tendon groove with avulsion. Effusion: There is a trace joint effusion which extends into the subacromial subdeltoid bursa. MRI/Upper Ext Joint Only(Routine) IMPRESSION: Suture anchors are noted in the humeral head consistent with prior rotator cuff repair. There is moderate AC joint hypertrophy without evidence of separation. There is a type 3 acromion with impingement configuration. There is a full-thickness, 50% with tear of the distal supraspinatus without retraction. There is severe distal infraspinatus tendinopathy without full-thickness tear. There is severe distal subscapularis tendinopathy without full-thickness tear or retraction. There is a tear of the labrum from the 12 o'clock-2 o'clock position extending into the biceps tendon anchor. The biceps tendon is absent from the biceps tendon groove with avulsion. There is a trace joint effusion which extends into the subacromial subdeltoid bursa. Reading Location: [facility] CC: Dr. Lanette Harkins DO; Dr. Fred Huber MD Wafer Cleaner: Signed Normal [facility] No Panel Informationon 11-10 Culture Wound Aerobe Few normal skin yolanda present. Sensitivity testing not indicated. Neisseria gonorrhoeae: Negative [facility] Work Phone: GS No organisms seen. [facility] Work Phone: CNOVon 11-02-2024 CNOV Office Visit (ROBBY ) TATE BALTAZAR ([id number]) 1975 M Date Time Provider Department 11/02/24 1:00 PM NURSE PAIN INFUSION SHAUN LUCIO During your visit today, we recorded the following information about you: Pulse Respiration Blood pressure Weight 66/minute 16/minute 138/90 112.3 kg Edelmira Perera RN 11/04/2024 7:55 AM Signed Pt here today for first Lidocaine. Pt reports pain 8/10. Pt NPO x 6 hours. Pt father, Robbi, available on discharge for ride home. CLEM Cook Lisa A, RN 11/04/2024 7:55 AM Signed Lidocaine infusion complete. Pt reports pain 7/10. 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 CLEM Cook Jagan, MD 11/04/2024 7:55 AM Signed PROCEDURE: IV Lidocaine infusion Therapy DATE OF SERVICE: November 02, 2024 PREPROCEDURE DIAGNOSES: Chronic pain syndrome Chronic pain syndrome (primary encounter diagnosis) Chronic right shoulder pain Contusion of right hip region ANESTHESIA: IV Lidocaine, Versed COMPLICATIONS: None CONSENT: The risks and benefits of Lidocaine infusion therapy were discussed with the patient. The patient verbalizes understanding and wishes to proceed with the infusion therapy at this time for control of intractable pain. Informed consent was thereby obtained. DESCRIPTION OF PROCEDURE: After written informed consent was obtained as above, the patient was taken to the operating room. Standard ASA monitors were applied. O2 was applied as well.The patient received 2 mg of IV Versed by the prior to initiation of the Lidocaine infusion. The initial verbal analogue scale at the beginning of the infusion was 8 on a scale from 0 to 10. The patient's pain scale was monitored for the next 15-minute increments. VS were monitored throughout. A total of 116 mg ofLidocaine was administered over 5 minutes followed by a total of 232 milligrams of lidocaine over the next 1 hour The patient was monitored very closely during the entire infusion procedure today. The patient's vital signs remained stable throughout the postoperative period. They were given written instructions to follow up at [facility] Pain Dept. in the next 4 to 6 weeks for further plan of care and overall evaluation. COMMENTS: Patient tolerated the infusion without any complications. Allergies As of Date: 11/02/2024 Noted Allergy Reaction HYDROCHLOROTHIAZIDE 05/18/2020 14 - Other: See Comments SULFAMETHOXAZOLE-TRIMETHOPRI M 03/26/2020 16 - Unknown 14 - Other: See Comments ACETAMINOPHEN 09/02/2022 14 - Other: See Comments Comments: Rebound headaches ACETAMINOPHEN-CODEINE 07/24/2021 16 - Unknown DOXYCYCLINE 05/13/2023 4 - Hives HYDROCODONE 09/25/2020 14 - Other: See Comments ORANGE JUICE 11/19/2021 16 - Unknown ORANGE OIL 08/07/2015 4 - Hives 14 - Other: See Comments PSEUDOEPHEDRINE 05/20/2021 16 - Unknown VICODIN (HYDROCODONE-ACETAMINOPHE* 1 - Mental Status Change 9 - Itching ARIPIPRAZOLE 02/22/2021 1 - Mental Status Change Date Reviewed: 11/02/2024 Reviewed by: Edelmira Perera, RN - Fully Assessed Primary Visit Diagnosis:Chronic pain syndrome [G89.4] Other Visit Diagnoses:Chronic right shoulder pain [M25.511, G89.29] Contusion of right hip region [S70.01XA] Order(s):[] ondansetron (PF) 8 mg injection (ZOFRAN)Disp: Rfl: [] midazolam (PF) 2 mg injection (VERSED)Disp: Rfl: NaCl 0.9% iv infusionDisp: Rfl: [] lidocaine (PF) 10 mg/mL (1 %) 116 mg in NaCl 0.9% 116 mL (XYLOCAINE)Disp: Rfl: [] lidocaine (PF) 10 mg/mL (1 %) 232 mg in NaCl 0.9% 232 mL (XYLOCAINE)Disp: Rfl: BCN NURSING COMMUNICATION [] Order #: [id number]: 1 BCN NURSING COMMUNICATION [] Order #: [id number]: 1 BCN NURSING COMMUNICATION [] Order #: [id number]: 1 BCN NURSING COMMUNICATION [] Order #: [id number]: 1 Prescriptions as of 11/04/2024 - cyclobenzaprine (FLEXERIL) 5 mg tablet TAKE 1 TABLET BY MOUTH THREE TIMES DAILY NEEDED - MYRBETRIQ 25 mg Tb24 Take 25 mg by mouth once daily. - sucralfate (CARAFATE) 1 gram tablet Take 1 g by mouth four times daily. - tiZANidine (ZANAFLEX) 4 mg tablet Take 4 mg by mouth every 6 hours as needed. - pregabalin (LYRICA) 150 mg capsule Take 1 capsule by mouth three times a day. - ondansetron (ZOFRAN) 8 mg tablet Take 8 mg by mouth every 8 hours as needed. - fexofenadine (KIMBERLY) 180 mg tablet Take 180 mg by mouth once daily. - DULoxetine (CYMBALTA) 60 mg capsule Take 180 mg by mouth once daily. - zonisamide (ZONEGRAN) 50 mg capsule Take 50 mg by mouth once daily. - fluticasone (FLONASE) 50 mcg/actuation nasal spray Use 2 Sprays in each nostril once daily. - gabapentin (NEURONTIN) 600 mg tablet Take 1 tablet by mouth three times a day for 90 days. - guaiFENesin-dextromethorphan (ROBITUSSIN DM) 100-10 mg/5 mL syrup Take 10 mL by mouth three times a day as needed. (more content not included)... [facility] 11-01-2024 DEEPA Telephone (ROBBY) TATE BALTAZAR ([id number]) 1975 M Date Time Provider Department 11/01/24 PUNEET MCBRIDE During your visit today, we recorded the following information about you: Allergies As of Date: 11/01/2024 Noted Allergy Reaction HYDROCHLOROTHIAZIDE 05/18/2020 14 - Other: See Comments SULFAMETHOXAZOLE-TRIMETHOPRI M 03/26/2020 16 - Unknown 14 - Other: See Comments ACETAMINOPHEN 09/02/2022 14 - Other: See Comments Comments: Rebound headaches ACETAMINOPHEN-CODEINE 07/24/2021 16 - Unknown DOXYCYCLINE 05/13/2023 4 - Hives HYDROCODONE 09/25/2020 14 - Other: See Comments ORANGE JUICE 11/19/2021 16 - Unknown ORANGE OIL 08/07/2015 4 - Hives 14 - Other: See Comments PSEUDOEPHEDRINE 05/20/2021 16 - Unknown VICODIN (HYDROCODONE-ACETAMINOPHE* 1 - Mental Status Change 9 - Itching ARIPIPRAZOLE 02/22/2021 1 - Mental Status Change Date Reviewed: 10/06/2024 Reviewed by: Mariely Argueta LPN - Fully Assessed Prescriptions as of 11/02/2024 - cyclobenzaprine (FLEXERIL) 5 mg tablet TAKE 1 TABLET BY MOUTH THREE TIMES DAILY NEEDED - MYRBETRIQ 25 mg Tb24 Take 25 mg by mouth once daily. - sucralfate (CARAFATE) 1 gram tablet Take 1 g by mouth four times daily. - tiZANidine (ZANAFLEX) 4 mg tablet Take 4 mg by mouth every 6 hours as needed. - pregabalin (LYRICA) 150 mg capsule Take 1 capsule by mouth three times a day. - ondansetron (ZOFRAN) 8 mg tablet Take 8 mg by mouth every 8 hours as needed. - fexofenadine (KIMBERLY) 180 mg tablet Take 180 mg by mouth once daily. - DULoxetine (CYMBALTA) 60 mg capsule Take 180 mg by mouth once daily. - zonisamide (ZONEGRAN) 50 mg capsule Take 50 mg by mouth once daily. - fluticasone (FLONASE) 50 mcg/actuation nasal spray Use 2 Sprays in each nostril once daily. - gabapentin (NEURONTIN) 600 mg tablet Take 1 tablet by mouth three times a day for 90 days. - guaiFENesin-dextromethorphan (ROBITUSSIN DM) 100-10 mg/5 mL syrup Take 10 mL by mouth three times a day as needed. - atorvastatin (LIPITOR) 40 mg tablet 1 tablet by ORAL/FEEDING TUBE route daily at bedtime. - tamsulosin (FLOMAX) 0.4 mg Take 0.4 mg by mouth once daily. - lidocaine (LIDODERM) 5 % Apply 1 Patch as directed as directed. Apply 1 patch for 12 hours then remove for 12 hours - docusate sodium (COLACE) 100 mg capsule Take 1 capsule by mouth twice daily. - naloxone 4 mg/actuation nasal spray (NARCAN) Use 1 spray in one nostril as needed for overdose. May repeat every 2 to 3 min in alternating nostrils until medical assistance is available - verapamil ER (VERELAN) 240 mg 24 hr capsule Take 240 mg by mouth once daily. - buPROPion XL (WELLBUTRIN XL) 300 mg 24 hr tablet TAKE 1 TABLET BY MOUTH EVERY 24 HOURS. REPLACES PREVIOUS PRESCRIPTION FOR BUPROPION 150 MG TABLET - valsartan (DIOVAN) 160 mg tablet Take 160 mg by mouth every morning. - cetirizine (ZYRTEC) 10 mg tablet Take 10 mg by mouth once daily. - AJOVY SYRINGE 225 mg/1.5 mL syringe - pantoprazole DR (PROTONIX) 40 mg tablet Take 40 mg by mouth twice daily. - potassium chloride ER (K-DUR, KLOR-CON) 20 mEq tablet Take 20 mEq by mouth twice daily. - NURTEC ODT 75 mg disintegrating tablet Facility-Administered Medications as of 11/02/2024 - NaCl 0.9% iv infusion Problem List As Of Date 11/01/2024 Noted Resolved Pilonidal cyst with abscess [L05.01] 06/06/2010 Epigastric pain [R10.13] 09/27/2015 10/23/2017 Essential hypertension [I10] 10/01/2015 Depression [F32.A] 10/01/2015 Reflex sympathetic dystrophy [G90.50] 10/01/2015 Encounter for sterilization [Z30.2] 04/21/2016 Nontraumatic subcortical hemorrhage of left cer*10/19/2017 Dysphagia due to recent stroke [I69.391] 10/20/2017 Acute right hemiparesis (HCC) [G81.91] 10/20/2017 TSH deficiency [E03.8] 10/20/2017 Cerebral edema (HCC) [G93.6] 10/20/2017 10/23/2017 Migraine without aura [G43.009] 10/21/2017 Arthropathy of lumbar facet joint [M47.816] 07/10/2020 Radiculopathy, lumbar region [M54.16] 03/26/2020 History of CVA (cerebrovascular accident) [Z86.*11/19/2021 Chronic low back pain [M54.50, G89.29] 11/19/2021 DDD (degenerative disc disease), lumbar [M51.36*03/26/2020 Gastroesophageal reflux disease with esophagiti*11/19/2021 Generalized osteoarthritis [M15.9] 03/26/2020 Hypercalcemia [E83.52] 11/19/2021 Intractable chronic migraine without aura [G43.*03/07/2020 Osteoarthritis of right shoulder [M19.011] 07/10/2020 Palpitations [R00.2] 11/19/2021 Strain of neck muscle [S16.1XXA] 11/19/2021 Spasm of back muscles [M62.830] 11/19/2021 Pain in right knee [M25.561] 11/19/2021 Chronic right shoulder pain [M25.511, G89.29] 11/19/2021 Stiffness of hip joint [M25.659] 12/20/2021 Abnormal kidney function [N28.9] 12/20/2021 History of subarachnoid hemorrhage [Z86.79] 12/20/2021 FDC (current) use of 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 [Z7*12/20/ (more content not included)... Normal [facility] Orthopedic Visit Reporton Orthopedic Visit Report [facility] [address] [place] [address] OFFICE VISIT Date of Service: 10/27/24 MR#: [id number] Acct: [id number] Name: TATE BALTAZAR Rep #: [id number] : 1975 Provider: Dr. Fred alanis MD Age/Sex: 49/M Location: [facility] Status: Signed Intake Vital Signs 10/06/24 11:26 10/25/24 10:33 Height 6 ft 6 ft Intake Visit Reasons: RIGHT KNEE Chief Complaint: 3rd Euflexxa Injection Accompanied by: Self Is patient in pain?: Yes Pain scale (1-10): 7 Allergies hydrocodone (From Vicodin) Adverse Reaction (Verified 10/27/24 10:27) Other Medications ???Medication ???Instructions ???Recorded ???Confirmed ???Type pantoprazole 40 mg tablet,delayed 40 mg PO DAILY 09/18/20 10/27/24 History release tizanidine 4 mg capsule 8 mg PO QHS 09/18/20 10/27/24 Hist ory bupropion HCl 300 mg 24 hr tablet, 300 mg PO QDAY 02/29/24 10/27/24 History extended release cyclobenzaprine 5 mg tablet 5 mg PO TID PRN 02/29/24 10/27/24 History duloxetine 60 mg capsule,delayed 60 mg PO QDAY 02/29/24 10/27/24 Hi story release fexofenadine 180 mg tablet 180 mg PO QDAY 02/29/24 10/27/24 H istory gabapentin 100 mg tablet 600 mg PO TID 02/29/24 10/27/24 Hi story mirabegron 25 mg tablet,extended 25 mg PO QDAY 02/29/24 10/27/24 Hi story release 24 hr (Myrbetriq) potassium chloride 20 mEq 40 meq PO DAILY 02/29/24 10/27/24 History tablet,extended release potassium chloride 20 mEq 20 meq PO BID 02/29/24 10/27/24 Hi story tablet,extended release(part/cryst) rimegepant 75 mg disintegrating 75 mg PO QDAY PRN 02/29/24 5 History tablet (Nurtec ODT) sucralfate 1 gram tablet 1 g PO 4X/DAY 02/29/24 10/27/24 Hi story tamsulosin 0.4 mg capsule 0.4 mg PO QDAY 02/29/24 10/27/24 H istory valsartan 160 mg tablet 160 mg PO QDAY 02/29/24 10/27/24 H istory verapamil 120 mg tablet,extended 240 mg PO QHS 02/29/24 10/27/24 Hi story release zonisamide 50 mg capsule 50 mg PO QHS 02/29/24 10/27/24 His rachel [facility] Medical History Primary osteoarthritis, right shoulder Right shoulder pain Osteoarthritis of right knee Right knee pain Loose, teeth Hearing loss, right Alcohol abuse Mood disorder History of steroid therapy Chronic pain History of IBS GERD (gastroesophageal reflux disease) Hiatal hernia Non-smoker CPAP (continuous positive airway pressure) dependence Pain aggravated by walking Edema Irregular heart beat Hypertension Migraine headache Restless legs Injury of back Stroke/cerebrovascular accident Surgical History Hx of cardiac catheterization Hx of colonoscopy History of esophagogastroduodenoscopy (EGD) Hx of vasectomy Hx of arthroscopic knee surgery Hx of tonsillectomy Hx of appendectomy Hx of shoulder surgery Social History household members: spouse and family Smoking Status: Former smoker alcohol intake: current alcohol intake frequency: holidays/special occasions only HPI RIGHT KNEE Details: This documentation accurately reflects the service provided and the decisions made by me, Dr. Fred Huber MD 10/27/24 0820. Part of today???s visit was documented by [ ], acting as scribe. 49 year old M here today for R knee OA for euflexxa injection 07/18. Office Procedures Euflexxa Procedure Details:: Obtained consent for injection. Under sterile conditions, injected the patients right knee with 3rd Euflexxa injection. The patient tolerated the injection well without any noted complication. Patient should call our office if redness develops, pain worsens or if they have any concerns. 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 FU PRN. Right knee intra-articular Euflexxa injection We discussed the pros and cons risks and benefits of going ahead with right knee intra-articular Euflexxa injection. The risks include but are not mitchell (more content not included)... Normal [facility] Orthopedic Visit Reporton Orthopedic Visit Report [facility] [address] [place] [id number] OFFICE VISIT Date of Service: 10/25/24 MR#: [id number] Acct: [id number] Name: TATE BALTAZAR Rep #: [id number] : 1975 Provider: Dr. Fred alanis MD Age/Sex: 49/M Location: [facility] Status: Signed Intake Vital Signs 10/19/24 11:08 10/25/24 10:33 Height 6 ft 6 ft Weight: 244 lb 240 lb BMI 33.0 32.5 Intake Visit Reasons: RIGHT SHOULDER Chief Complaint: Right shoulder pain Accompanied by: Self Is patient in pain?: Yes Pain scale (1-10): 9 Allergies hydrocodone (From Vicodin) Adverse Reaction (Verified 10/25/24 10:36) Other Medications ???Medication ???Instructions ???Recorded ???Confirmed ???Type pantoprazole 40 mg tablet,delayed 40 mg PO DAILY 09/18/20 10/25/24 History release tizanidine 4 mg capsule 8 mg PO QHS 09/18/20 10/25/24 Hist ory bupropion HCl 300 mg 24 hr tablet, 300 mg PO QDAY 02/29/24 10/25/24 History extended release cyclobenzaprine 5 mg tablet 5 mg PO TID PRN 02/29/24 10/25/24 History duloxetine 60 mg capsule,delayed 60 mg PO QDAY 02/29/24 10/25/24 Hi story release fexofenadine 180 mg tablet 180 mg PO QDAY 02/29/24 10/25/24 H istory gabapentin 100 mg tablet 600 mg PO TID 02/29/24 10/25/24 Hi story mirabegron 25 mg tablet,extended 25 mg PO QDAY 02/29/24 10/25/24 Hi story release 24 hr (Myrbetriq) potassium chloride 20 mEq 40 meq PO DAILY 02/29/24 10/25/24 History tablet,extended release potassium chloride 20 mEq 20 meq PO BID 02/29/24 10/25/24 Hi story tablet,extended release(part/cryst) rimegepant 75 mg disintegrating 75 mg PO QDAY PRN 02/29/24 5 History tablet (Nurtec ODT) sucralfate 1 gram tablet 1 g PO 4X/DAY 02/29/24 10/25/24 Hi story tamsulosin 0.4 mg capsule 0.4 mg PO QDAY 02/29/24 10/25/24 H istory valsartan 160 mg tablet 160 mg PO QDAY 02/29/24 10/25/24 H istory verapamil 120 mg tablet,extended 240 mg PO QHS 02/29/24 10/25/24 Hi story release zonisamide 50 mg capsule 50 mg PO QHS 02/29/24 10/25/24 His tory Have you fallen in the past year?: No PFSH Medical History (Updated 10/25/24 @ 10:51 by Fred Huber MD) Primary osteoarthritis, right shoulder Right shoulder pain Osteoarthritis of right knee Right knee pain Loose, teeth Hearing loss, right Alcohol abuse Mood disorder History of steroid therapy Chronic pain History of IBS GERD (gastroesophageal reflux disease) Hiatal hernia Non-smoker CPAP (continuous positive airway pressure) dependence Pain aggravated by walking Edema Irregular heart beat Hypertension Migraine headache Restless legs Injury of back Stroke/cerebrovascular accident Surgical History Hx of cardiac catheterization Hx of colonoscopy History of esophagogastroduodenoscopy (EGD) Hx of vasectomy Hx of arthroscopic knee surgery Hx of tonsillectomy Hx of appendectomy Hx of shoulder surgery Social History household members: spouse and family Smoking Status: Former smoker alcohol intake: current alcohol intake frequency: holidays/special occasions only HPI RIGHT SHOULDER Details: This documentation accurately reflects the service provided and the decisions made by me, Dr. Fred Huber MD 10/25/24 0821. Part of today???s visit was documented by [ ], acting as scribe. TATE BALTAZAR is a 49 year old M here today for R shoulder pain. 8 yrs. had 2 surgeries. last in [place] 2 years ago. lateral pain. had a stroke. RHD. right sided weakness, 2 strokes. [place] - no PT. had cortisone injections. in the past though pain management in [place] - doesn't help only for a day. Supplemental Info R shoulder xr 4 view -mild glenohumeral osteoarthritis. Mild widening at the AC joint appears chronic. Coding Level of Care Code Off vis,est,level 4 Diagnoses Right shoulder pain M25.511 Primary osteoarthritis, right shoulder M19.011 Assessment and Plan Assessment and Plan (1) Right shoulder pain: Status: Acute Plan: TATE BALTAZAR is a 49 year old M here today for R shoulder pain. Patient has had 2 prior rotator cuff surgeries and operations on the biceps there is no sign of a subpectoral biceps tenodesis perhaps this was a tenodesis high in the groove. Could have a retear bursitis tendinosis or other problems associate with the shoulder. Certainly this is made worse by his pre-existing muscular weakness from his 2 prior hemorrhagic strokes. Patient declined physical therapy and cortisone injections for today he would like to proceed with an MRI and I have gone ahead and order that of the right shoulder we will follow-up after (more content not included)... Normal [facility] Shoulder min 2 Viewson 10-25 Shoulder min 2 Views [facility] Services [address] [place], [place] [id number] Shoulder min 2 Views MR#: [id number] Acct: [id number] Name: TATE BALTAZAR Rep #: [id number] : 1975 M 49 From: Jennifer Lynn PCP: Dr. Lanette Harkins, Status: DEP AMB Study: Shoulder min 2 Views Date of Exam: 10/25/24 Exam# [id number] Ordering Dr: Fred Huber MD PROCEDURE: SHOULDER MIN 2 VIEWS 10/25/2024 REASON FOR EXAM: ONGOING PAIN TECHNIQUE: Four view right shoulder series COMPARISON: None. RAD/Shoulder min 2 Views IMPRESSION: Mild right acromioclavicular joint degenerative changes are seen. Mild degenerative changes are also seen about the right humeral head greater tuberosity, suggesting possible chronic rotator cuff disease. The right glenohumeral joint demonstrates minimal degenerative changes, without apparent joint narrowing. No acute fracture or dislocation is seen. Reading Location: [address] CC: Dr. Lanette Harkins DO; Dr. Fred Huber MD Wafer Cleaner: Signed Normal [facility] Orthopedic Visit Reporton Orthopedic Visit Report [facility] [address] [place] [address] [place] [address] OFFICE VISIT Date of Service: 10/19/24 MR#: [id number] Acct: [id number] Name: TATE BALTAZAR Rep #: [id number] : 1975 Provider: Dr. Fred alanis MD Age/Sex: 49/M Location: [facility] Status: Signed Intake Vital Signs 09/20/24 10:55 10/06/24 11:26 10/19/24 11:08 Height 6 ft 6 ft 6 ft Weight: 240 lb 244 lb BMI 32.5 33.0 Intake Visit Reasons: RIGHT KNEE Chief Complaint: 2nd Euflexxa Right knee pain Accompanied by: Is patient in pain?: Yes Pain scale (1-10): 6 Allergies hydrocodone (From Vicodin) Adverse Reaction (Verified 10/19/24 11:14) Other Medications ???Medication ???Instructions ???Recorded ???Confirmed ???Type pantoprazole 40 mg tablet,delayed 40 mg PO DAILY 09/18/20 10/19/24 History release tizanidine 4 mg capsule 8 mg PO QHS 09/18/20 10/19/24 Hist ory bupropion HCl 300 mg 24 hr tablet, 300 mg PO QDAY 02/29/24 10/19/24 History extended release cyclobenzaprine 5 mg tablet 5 mg PO TID PRN 02/29/24 10/19/24 History duloxetine 60 mg capsule,delayed 60 mg PO QDAY 02/29/24 10/19/24 Hi story release fexofenadine 180 mg tablet 180 mg PO QDAY 02/29/24 10/19/24 H istory gabapentin 100 mg tablet 600 mg PO TID 02/29/24 10/19/24 Hi story mirabegron 25 mg tablet,extended 25 mg PO QDAY 02/29/24 10/19/24 Hi story release 24 hr (Myrbetriq) potassium chloride 20 mEq 40 meq PO DAILY 02/29/24 10/19/24 History tablet,extended release potassium chloride 20 mEq 20 meq PO BID 02/29/24 10/19/24 Hi story tablet,extended release(part/cryst) rimegepant 75 mg disintegrating 75 mg PO QDAY PRN 02/29/24 5 History tablet (Nurtec ODT) sucralfate 1 gram tablet 1 g PO 4X/DAY 02/29/24 10/19/24 Hi story tamsulosin 0.4 mg capsule 0.4 mg PO QDAY 02/29/24 10/19/24 H istory valsartan 160 mg tablet 160 mg PO QDAY 02/29/24 10/19/24 H istory verapamil 120 mg tablet,extended 240 mg PO QHS 02/29/24 10/19/24 Hi story release zonisamide 50 mg capsule 50 mg PO QHS 02/29/24 10/19/24 His tory Have you fallen in the past year?: No PFSH Medical History Right shoulder pain Osteoarthritis of right knee Right knee pain Loose, teeth Hearing loss, right Alcohol abuse Mood disorder History of steroid therapy Chronic pain History of IBS GERD (gastroesophageal reflux disease) Hiatal hernia Non-smoker CPAP (continuous positive airway pressure) dependence Pain aggravated by walking Edema Irregular heart beat Hypertension Migraine headache Restless legs Injury of back Stroke/cerebrovascular accident Surgical History Hx of cardiac catheterization Hx of colonoscopy History of esophagogastroduodenoscopy (EGD) Hx of vasectomy Hx of arthroscopic knee surgery Hx of tonsillectomy Hx of appendectomy Hx of shoulder surgery Social History household members: spouse and family Smoking Status: Former smoker alcohol intake: current alcohol intake frequency: holidays/special occasions only HPI RIGHT KNEE Details: This documentation accurately reflects the service provided and the decisions made by me, Dr. Fred Huber MD 10/19/24 0830. Part of today???s visit was documented by [ ], acting as scribe. TATE BALTAZAR is a 49 year old M here today for R knee OA for euflexxa injection 2/3. Office Procedures Euflexxa Procedure Details:: Obtained consent for injection. Under sterile conditions, injected the patients Right knee with 20ml Euflexxa injection. The patient tolerated the injection well without any noted complication. Patient should call our office if redness develops, pain worsens or if they have any concerns. Is this Buy Bill?: Yes Office Meds Euflexxa 10 mg/mL (mw 2.4-3.6 million) intra-articular syringe Performing Provider: Fred Huber MD Performing Location: [facility] Administered by: Fred Huber MD on 10/19/24 11:20 Dose Route Admin Location Dispensed Lot Number Expiration Date [place] Man ufacturer 20 mg intra-articular Right knee 2 mL [id number] 04/09/25 [address]-6 [employer] Coding Level of Care Code Attention Nathan Diagnoses Osteoarthritis of right knee M17.11 Right knee pain M25.561 Comment euflexxa injection 2/3 R knee Assessment and Plan Assessment and Plan (1) Osteoarthritis of right knee: Status: Acute Plan: TATE BALTAZAR is a 49 year old M here today for R knee OA for euflexxa injection 2/3. FU 1 week. Right knee intra-articular Euflexxa injection We discusse (more content not included)... Normal [facility] 10-06-2024 [facility] Office Visit (ROBBY ) TATE BALTAZAR ([id number]) 1975 M Date Time Provider Department 10/06/24 2:30 PM LEEANN OWENS During your visit today, we recorded the following information about you: Pulse Respiration Blood pressure Weight 101/minute 16/minute 118/90 116 kg Height 1.905 m Leeann Owens PA-C 10/06/2024 3:19 PM Signed PATIENT: Tate Baltazar : 1975 DATE OF SERVICE: 10/06/2024 REFERRING PRACTITIONER: No ref. provider found PRIMARY CARE PROVIDER: Lanette Harkins DO CHIEF COMPLAINT: Patient presents with: Pain: Neck Foot - rt Hand- rt Back Pain: Low HISTORY OF PRESENT ILLNESS: Tate Baltazar is a 49 year old year old male who presents to the clinic today with chief complaint(s) as above. Following up for: chronic pain, low back pain, neck pain, right shoulder, right foot and knee pain Response to treatment recommendations: No significant improvement from Gabapentin and Tizanidine. Pt was seen in the ED 04/2024 for syncope episode/concussion. Fall attributed to use of concurrent use of Nyquil,Tizanidine and Gabapentin. He was instructed to not use those medications together and has spaced them out No improvement from right shoulder and knee CSI> pt is seeing ortho and started gel injection series for the right knee pain Current primary concern/description: right foot pain/ throbbing, sharp Pain Level: 10 /10 Better with: medication, reposition, rest Worse with: pain is constant Numbness/Tingling: [x] Yes [] No right side of the body Bladder/bowel fxn change: [] Yes [x] No --- Review of Systems Constitutional: Negative. HENT: Negative. Eyes: Negative. Cardiovascular: Positive for dyspnea on exertion. Respiratory: Negative. Endocrine: Negative. Skin: Negative. Musculoskeletal: Positive for arthritis, back pain, joint pain, muscle cramps, muscle weakness, myalgias, neck pain and stiffness. Gastrointestinal: Negative. Genitourinary: Negative. Neurological: Positive for headaches, loss of balance, numbness and paresthesias. Psychiatric/Behavioral: Positive for depression. === HISTORY: ALLERGIES Allergen Reactions Hydrochlorothiazide Other: See Comments Sulfamethoxazole-Tr* Unknown, Other: See Comments Acetaminophen Other: See Comments Rebound headaches Acetaminophen-Codei* Unknown Doxycycline Hives Hydrocodone Other: See Comments Kihei Juice Unknown Kihei Oil Hives, Other: See Comments Pseudoephedrine Unknown Vicodin [Hydrocodon* Mental Status Change, Itching Aripiprazole Mental Status Change 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 Stroke due to intracerebral hemorrhage (HCC) 2018 Had an additional stroke at age 25 PAST SURGICAL HISTORY Procedure Laterality Date APPENDECTOMY CARPAL TUNNEL Left 2014 COLONOSCOPY 20's with EGD EGD TRANSORAL BIOPSY SINGLE/MULTIPLE 10/02/2015 EXCISION PILONIDAL CYST/SINUS EXTENSIVE 07/05/2010 closed ORTHOPEDICS SURGERY HX Right 12/2022 Right ROTATOR cUFF PAST SURGICAL HISTORY OF right knee surgery TONSILLECTOMY PRIMARY/SECONDARY Tonsillectomy VASECTOMY UNI/BI SPX W/POSTOP SEMEN EXAMS Bilateral 05/23/2016 FAMILY HISTORY Problem Relation Age of Onset Prostate Cancer Father Hypertension Father Social History Tobacco Use Smoking status: Never Passive exposure: Never Smokeless tobacco: Never Vaping Use Vaping status: Never Used Substance Use Topics Alcohol use: Yes Comment: OCCASIONAL Drug use: No Current Outpatient Medications Medication Sig cyclobenzaprine (FLEXERIL) 5 mg tablet TAKE 1 TABLET BY MOUTH THREE TIMES DAILY NEEDED MYRBETRIQ 25 mg Tb24 Take 25 mg by mouth once daily. sucralfate (CARAFATE) 1 gram tablet Take 1 g by mouth four times daily. tiZANidine (ZANAFLEX) 4 mg tablet Take 4 mg by mouth every 6 hours as needed. pregabalin (LYRICA) 150 mg capsule Take 1 capsule by mouth three times a day. ondansetron (ZOFRAN) 8 mg tablet Take 8 mg by mouth every 8 hours as needed. fexofenadine (KIMBERLY) 180 mg tablet Take 180 mg by mouth once daily. DULoxetine (CYMBALTA) 60 mg capsule Take 180 mg by mouth once daily. zonisamide (ZONEGRAN) 50 mg capsule Take 50 mg by mouth once daily. fluticasone (FLONASE) 50 mcg/actuation nasal spray Use 2 Sprays in each nostril once daily. gabapentin (NEURONTIN) 600 mg tablet Take 1 tablet by mouth three times a day for 90 days. guaiFENesin-dextromethorphan (ROBITUSSIN DM) 100-10 mg/5 mL syrup Take 10 mL by mouth three times a day as needed. atorvastatin (LIPITOR) 40 mg tablet 1 tablet by ORAL/FEEDING TUBE route (more content not included)... [facility] 10-06-2024 DEEPAN Telephone (ROBBY) TATE BALTAZAR ([id number]) 1975 M Date Time Provider Department 10/06/24 LEEANN OWENS During your visit today, we recorded the following information about you: Azeb Snow 10/06/2024 4:24 PM Signed I left a message to schedule IV Infusions on 11/02/24 1300 and 11/30 1300. Azeb Snow October 06, 2024 4:22 PM Allergies As of Date: 10/06/2024 Noted Allergy Reaction HYDROCHLOROTHIAZIDE 05/18/2020 14 - Other: See Comments SULFAMETHOXAZOLE-TRIMETHOPRI M 03/26/2020 16 - Unknown 14 - Other: See Comments ACETAMINOPHEN 09/02/2022 14 - Other: See Comments Comments: Rebound headaches ACETAMINOPHEN-CODEINE 07/24/2021 16 - Unknown DOXYCYCLINE 05/13/2023 4 - Hives HYDROCODONE 09/25/2020 14 - Other: See Comments ORANGE JUICE 11/19/2021 16 - Unknown ORANGE OIL 08/07/2015 4 - Hives 14 - Other: See Comments PSEUDOEPHEDRINE 05/20/2021 16 - Unknown VICODIN (HYDROCODONE-ACETAMINOPHE* 1 - Mental Status Change 9 - Itching ARIPIPRAZOLE 02/22/2021 1 - Mental Status Change Date Reviewed: 10/06/2024 Reviewed by: Mariely Argueta LPN - Fully Assessed Reason for Visit: Scheduling infusions [Other] Prescriptions as of 10/11/2024 - cyclobenzaprine (FLEXERIL) 5 mg tablet TAKE 1 TABLET BY MOUTH THREE TIMES DAILY NEEDED - MYRBETRIQ 25 mg Tb24 Take 25 mg by mouth once daily. - sucralfate (CARAFATE) 1 gram tablet Take 1 g by mouth four times daily. - tiZANidine (ZANAFLEX) 4 mg tablet Take 4 mg by mouth every 6 hours as needed. - pregabalin (LYRICA) 150 mg capsule Take 1 capsule by mouth three times a day. - ondansetron (ZOFRAN) 8 mg tablet Take 8 mg by mouth every 8 hours as needed. - fexofenadine (KIMBERLY) 180 mg tablet Take 180 mg by mouth once daily. - DULoxetine (CYMBALTA) 60 mg capsule Take 180 mg by mouth once daily. - zonisamide (ZONEGRAN) 50 mg capsule Take 50 mg by mouth once daily. - fluticasone (FLONASE) 50 mcg/actuation nasal spray Use 2 Sprays in each nostril once daily. - gabapentin (NEURONTIN) 600 mg tablet Take 1 tablet by mouth three times a day for 90 days. - guaiFENesin-dextromethorphan (ROBITUSSIN DM) 100-10 mg/5 mL syrup Take 10 mL by mouth three times a day as needed. - atorvastatin (LIPITOR) 40 mg tablet 1 tablet by ORAL/FEEDING TUBE route daily at bedtime. - tamsulosin (FLOMAX) 0.4 mg Take 0.4 mg by mouth once daily. - lidocaine (LIDODERM) 5 % Apply 1 Patch as directed as directed. Apply 1 patch for 12 hours then remove for 12 hours - docusate sodium (COLACE) 100 mg capsule Take 1 capsule by mouth twice daily. - naloxone 4 mg/actuation nasal spray (NARCAN) Use 1 spray in one nostril as needed for overdose. May repeat every 2 to 3 min in alternating nostrils until medical assistance is available - verapamil ER (VERELAN) 240 mg 24 hr capsule Take 240 mg by mouth once daily. - buPROPion XL (WELLBUTRIN XL) 300 mg 24 hr tablet TAKE 1 TABLET BY MOUTH EVERY 24 HOURS. REPLACES PREVIOUS PRESCRIPTION FOR BUPROPION 150 MG TABLET - valsartan (DIOVAN) 160 mg tablet Take 160 mg by mouth every morning. - cetirizine (ZYRTEC) 10 mg tablet Take 10 mg by mouth once daily. - AJOVY SYRINGE 225 mg/1.5 mL syringe - pantoprazole DR (PROTONIX) 40 mg tablet Take 40 mg by mouth twice daily. - potassium chloride ER (K-DUR, KLOR-CON) 20 mEq tablet Take 20 mEq by mouth twice daily. - NURTEC ODT 75 mg disintegrating tablet Problem List As Of Date 10/06/2024 Noted Resolved Pilonidal cyst with abscess [L05.01] 06/06/2010 Epigastric pain [R10.13] 09/27/2015 10/23/2017 Essential hypertension [I10] 10/01/2015 Depression [F32.A] 10/01/2015 Reflex sympathetic dystrophy [G90.50] 10/01/2015 Encounter for sterilization [Z30.2] 04/21/2016 Nontraumatic subcortical hemorrhage of left cer*10/19/2017 Dysphagia due to recent stroke [I69.391] 10/20/2017 Acute right hemiparesis (HCC) [G81.91] 10/20/2017 TSH deficiency [E03.8] 10/20/2017 Cerebral edema (HCC) [G93.6] 10/20/2017 10/23/2017 Migraine without aura [G43.009] 10/21/2017 Arthropathy of lumbar facet joint [M47.816] 07/10/2020 Radiculopathy, lumbar region [M54.16] 03/26/2020 History of CVA (cerebrovascular accident) [Z86.*11/19/2021 Chronic low back pain [M54.50, G89.29] 11/19/2021 DDD (degenerative disc disease), lumbar [M51.36*03/26/2020 Gastroesophageal reflux disease with esophagiti*11/19/2021 Generalized osteoarthritis [M15.9] 03/26/2020 Hypercalcemia [E83.52] 11/19/2021 Intractable chronic migraine without aura [G43.*03/07/2020 Osteoarthritis of right shoulder [M19.011] 07/10/2020 Palpitations [R00.2] 11/19/2021 Strain of neck muscle [S16.1XXA] 11/19/2021 Spasm of back muscles [M62.830] 11/19/2021 Pain in right knee [M25.561] 11/19/2021 Chronic right shoulder pain [M25.511, G89.29] 11/19/2021 Stiffness of hip joint [M25.659] 12/20/2021 Abnormal kidney function [ (more content not included)... Normal [facility] Orthopedic Visit Reporton Orthopedic Visit Report [facility] [address] [place] [address] [address] [place] [address] OFFICE VISIT Date of Service: 10/06/24 MR#: [id number] Acct: [id number] Name: TATE BALTAZAR Rep #: [id number] : 1975 Provider: Dr. Fred alanis MD Age/Sex: 49/M Location: [facility] Status: Signed Intake Vital Signs 09/20/24 10:55 10/03/24 11:07 10/06/24 11:26 Height 6 ft 6 ft 6 ft Weight: 250 lb 240 lb BMI 33.9 32.5 Intake Visit Reasons: RIGHT KNEE Chief Complaint: 1st Euflexxa Right knee pain Accompanied by: Is patient in pain?: Yes Pain scale (1-10): 8 Allergies hydrocodone (From Vicodin) Adverse Reaction (Verified 10/06/24 11:30) Other Medications ???Medication ???Instructions ???Recorded ???Confirmed ???Type pantoprazole 40 mg tablet,delayed 40 mg PO DAILY 09/18/20 10/06/24 History release tizanidine 4 mg capsule 8 mg PO QHS 09/18/20 10/06/24 Hist ory bupropion HCl 300 mg 24 hr tablet, 300 mg PO QDAY 02/29/24 10/06/24 History extended release cyclobenzaprine 5 mg tablet 5 mg PO TID PRN 02/29/24 10/06/24 History duloxetine 60 mg capsule,delayed 60 mg PO QDAY 02/29/24 10/06/24 Hi story release fexofenadine 180 mg tablet 180 mg PO QDAY 02/29/24 10/06/24 H istory gabapentin 100 mg tablet 600 mg PO TID 02/29/24 10/06/24 Hi story mirabegron 25 mg tablet,extended 25 mg PO QDAY 02/29/24 10/06/24 Hi story release 24 hr (Myrbetriq) potassium chloride 20 mEq 40 meq PO DAILY 02/29/24 10/06/24 History tablet,extended release potassium chloride 20 mEq 20 meq PO BID 02/29/24 10/06/24 Hi story tablet,extended release(part/cryst) rimegepant 75 mg disintegrating 75 mg PO QDAY PRN 02/29/24 5 History tablet (Nurtec ODT) sucralfate 1 gram tablet 1 g PO 4X/DAY 02/29/24 10/06/24 Hi story tamsulosin 0.4 mg capsule 0.4 mg PO QDAY 02/29/24 10/06/24 H istory valsartan 160 mg tablet 160 mg PO QDAY 02/29/24 10/06/24 H istory verapamil 120 mg tablet,extended 240 mg PO QHS 02/29/24 10/06/24 Hi story release zonisamide 50 mg capsule 50 mg PO QHS 02/29/24 10/06/24 His tory Have you fallen in the past year?: No PFSH Medical History Osteoarthritis of right knee Right knee pain Loose, teeth Hearing loss, right Alcohol abuse Mood disorder History of steroid therapy Chronic pain History of IBS GERD (gastroesophageal reflux disease) Hiatal hernia Non-smoker CPAP (continuous positive airway pressure) dependence Pain aggravated by walking Edema Irregular heart beat Hypertension Migraine headache Restless legs Injury of back Stroke/cerebrovascular accident Surgical History Hx of cardiac catheterization Hx of colonoscopy History of esophagogastroduodenoscopy (EGD) Hx of vasectomy Hx of arthroscopic knee surgery Hx of tonsillectomy Hx of appendectomy Hx of shoulder surgery Social History household members: spouse and family Smoking Status: Former smoker alcohol intake: current alcohol intake frequency: holidays/special occasions only HPI RIGHT KNEE Details: This documentation accurately reflects the service provided and the decisions made by me, Dr. Fred Huber MD 10/06/24 1013. Part of today???s visit was documented by [ ], acting as scribe. TATE BALTAZAR is a 49 year old M here today for R knee OA for euflexxa injection 05/20. Office Procedures Euflexxa Procedure Details:: Obtained consent for injection. Under sterile conditions, injected the patients right knee with 20ml Euflexxa. The patient tolerated the injection well without any noted complication. Patient should call our office if redness develops, pain worsens or if they have any concerns. Is this Buy Bill?: Yes Office Meds Euflexxa 10 mg/mL (mw 2.4-3.6 million) intra-articular syringe Performing Provider: Fred Huber MD Performing Location: [facility] Administered by: Fred Huber MD on 10/06/24 11:33 Dose Route Admin Location Dispensed Lot Number Expiration Date ND Man ufacturer 20 mg intra-articular Right kne 2 mL [id number] 09/19/25 [address]-5 [employer] Coding Level of Care Code Attention Nathan Diagnoses Osteoarthritis of right knee M17.11 Right knee pain M25.561 Comment R knee euflexxa injection Assessment and Plan Assessment and Plan (1) Osteoarthritis of right knee: Status: Acute Plan: TATE BALTAZAR is a 49 year old M here today for R knee OA for euflexxa injection 05/20. FU 1 week. Asked to see during new patient slot for shoulder issue. Right knee intra-articular Euflexxa inj (more content not included)... Normal [facility] Orthopedic Visit Reporton Orthopedic Visit Report [facility] [address] [place] [address] OFFICE VISIT Date of Service: 09/20/24 MR#: [id number] Acct: [id number] Name: TATE BALTAZAR Rep #: [id number] : 1975 Provider: Dr. Fred alanis MD Age/Sex: 49/M Location: [facility] Status: Signed Intake Vital Signs 02/29/24 09:44 09/20/24 10:55 Height 6 ft 6 ft Weight: 250 lb BMI 33.9 Intake Visit Reasons: RIGHT KNEE Chief Complaint: Right knee pain Accompanied by: Self Is patient in pain?: Yes Pain scale (1-10): 7 Allergies hydrocodone (From Vicodin) Adverse Reaction (Verified 09/20/24 10:59) Other Medications ???Medication ???Instructions ???Recorded ???Confirmed ???Type pantoprazole 40 mg tablet,delayed 40 mg PO DAILY 09/18/20 09/20/24 History release tizanidine 4 mg capsule 8 mg PO QHS 09/18/20 09/20/24 Hist ory bupropion HCl 300 mg 24 hr tablet, 300 mg PO QDAY 02/29/24 09/20/24 History extended release cyclobenzaprine 5 mg tablet 5 mg PO TID PRN 02/29/24 09/20/24 History duloxetine 60 mg capsule,delayed 60 mg PO QDAY 02/29/24 09/20/24 Hi story release fexofenadine 180 mg tablet 180 mg PO QDAY 02/29/24 09/20/24 H istory gabapentin 100 mg tablet 600 mg PO TID 02/29/24 09/20/24 Hi story mirabegron 25 mg tablet,extended 25 mg PO QDAY 02/29/24 09/20/24 Hi story release 24 hr (Myrbetriq) potassium chloride 20 mEq 40 meq PO DAILY 02/29/24 09/20/24 History tablet,extended release potassium chloride 20 mEq 20 meq PO BID 02/29/24 09/20/24 Hi story tablet,extended release(part/cryst) rimegepant 75 mg disintegrating 75 mg PO QDAY PRN 02/29/24 5 History tablet (Nurtec ODT) sucralfate 1 gram tablet 1 g PO 4X/DAY 02/29/24 09/20/24 Hi story tamsulosin 0.4 mg capsule 0.4 mg PO QDAY 02/29/24 09/20/24 H istory valsartan 160 mg tablet 160 mg PO QDAY 02/29/24 09/20/24 H istory verapamil 120 mg tablet,extended 240 mg PO QHS 02/29/24 09/20/24 Hi story release zonisamide 50 mg capsule 50 mg PO QHS 02/29/24 09/20/24 His tory Have you fallen in the past year?: Yes [facility] Medical History Osteoarthritis of right knee Right knee pain Loose, teeth Hearing loss, right Alcohol abuse Mood disorder History of steroid therapy Chronic pain History of IBS GERD (gastroesophageal reflux disease) Hiatal hernia Non-smoker CPAP (continuous positive airway pressure) dependence Pain aggravated by walking Edema Irregular heart beat Hypertension Migraine headache Restless legs Injury of back Stroke/cerebrovascular accident Surgical History Hx of cardiac catheterization Hx of colonoscopy History of esophagogastroduodenoscopy (EGD) Hx of vasectomy Hx of arthroscopic knee surgery Hx of tonsillectomy Hx of appendectomy Hx of shoulder surgery Social History household members: spouse and family Smoking Status: Former smoker alcohol intake: current alcohol intake frequency: holidays/special occasions only HPI RIGHT KNEE Details: This documentation accurately reflects the service provided and the decisions made by me, Dr. Fred Huber MD 09/20/24 0910. Part of today???s visit was documented by [ ], acting as scribe. TATE BALTAZAR is a 49 year old M here today for follow-up right knee pain mild patellofemoral osteoarthritis history of 2 strokes. Patient has had 2 cortisone injections last one was about 4 months ago. The patient cannot remember if they are helpful or not. He still has pain at the anterior and lateral aspect of the knee worse with more ambulation and more activity. Coding Level of Care Code Off vis,est,level 4 Diagnoses Osteoarthritis of right knee M17.11 Right knee pain M25.561 Assessment and Plan Assessment and Plan (1) Osteoarthritis of right knee: Status: Acute Plan: TATE BALTAZAR is a 49 year old M here today for follow-up right knee pain mild patellofemoral osteoarthritis history of 2 strokes. I reviewed the MRI again. There is mild patellofemoral arthritis and crepitus the pain seems to be coming from that joint. I do not believe there would be a role for cartilage moravian here could consider patellofemoral resurfacing arthroplasty. Otherwise there is other conservative measures the patient would like to try viscosupplementation injections I will submit for approval of those and follow-up once that gets approved to start the series of 3. Patient counselled on diagnosis, prognosis and treatment options. Osteoarthritis (OA) occurs when the cartilage in the knee joint breaks down, causing pain and st (more content not included)... Normal [facility] Orthopedic Visit Reporton Orthopedic Visit Report [facility] [address] [place] [id number] OFFICE VISIT Date of Service: 07/19/24 MR#: [id number] Acct: [id number] Name: TATE BALTAZAR Rep #: [id number] : 1975 Provider: Dr. Fred alanis MD Age/Sex: 49/M Location: [facility] Status: Signed Intake Vital Signs 02/29/24 09:44 Height 6 ft Intake Visit Reasons: RIGHT KNEE Chief Complaint: Would like to get a brace for the right knee Accompanied by: Self Is patient in pain?: Yes Pain scale (1-10): 7 Allergies hydrocodone (From Vicodin) Adverse Reaction (Verified 07/19/24 10:39) Other Medications ???Medication ???Instructions ???Recorded ???Confirmed ???Type pantoprazole 40 mg tablet,delayed 40 mg PO DAILY 09/18/20 07/19/24 History release tizanidine 4 mg capsule 8 mg PO QHS 09/18/20 07/19/24 Hist ory bupropion HCl 300 mg 24 hr tablet, 300 mg PO QDAY 02/29/24 07/19/24 History extended release cyclobenzaprine 5 mg tablet 5 mg PO TID PRN 02/29/24 07/19/24 History duloxetine 60 mg capsule,delayed 60 mg PO QDAY 02/29/24 07/19/24 Hi story release fexofenadine 180 mg tablet 180 mg PO QDAY 02/29/24 07/19/24 H istory gabapentin 100 mg tablet 600 mg PO TID 02/29/24 07/19/24 Hi story mirabegron 25 mg tablet,extended 25 mg PO QDAY 02/29/24 07/19/24 Hi story release 24 hr (Myrbetriq) potassium chloride 20 mEq 40 meq PO DAILY 02/29/24 07/19/24 History tablet,extended release potassium chloride 20 mEq 20 meq PO BID 02/29/24 07/19/24 Hi story tablet,extended release(part/cryst) rimegepant 75 mg disintegrating 75 mg PO QDAY PRN 10/14/24 03/04/2 5 History tablet (Nurtec ODT) sucralfate 1 gram tablet 1 g PO 4X/DAY 02/29/24 07/19/24 Hi story tamsulosin 0.4 mg capsule 0.4 mg PO QDAY 02/29/24 07/19/24 H istory valsartan 160 mg tablet 160 mg PO QDAY 02/29/24 07/19/24 H istory verapamil 120 mg tablet,extended 240 mg PO QHS 02/29/24 07/19/24 Hi story release zonisamide 50 mg capsule 50 mg PO QHS 02/29/24 07/19/24 His tory Have you fallen in the past year?: Yes PFSH Medical History Osteoarthritis of right knee Right knee pain Loose, teeth Hearing loss, right Alcohol abuse Mood disorder History of steroid therapy Chronic pain History of IBS GERD (gastroesophageal reflux disease) Hiatal hernia Non-smoker CPAP (continuous positive airway pressure) dependence Pain aggravated by walking Edema Irregular heart beat Hypertension Migraine headache Restless legs Injury of back Stroke/cerebrovascular accident Surgical History Hx of cardiac catheterization Hx of colonoscopy History of esophagogastroduodenoscopy (EGD) Hx of vasectomy Hx of arthroscopic knee surgery Hx of tonsillectomy Hx of appendectomy Hx of shoulder surgery Social History household members: spouse and family Smoking Status: Former smoker alcohol intake: current alcohol intake frequency: holidays/special occasions only HPI RIGHT KNEE Details: This documentation accurately reflects the service provided and the decisions made by me, Dr. Fred Huber MD 07/19/24 1033. Part of today???s visit was documented by [ ], acting as scribe. TATE BALTAZAR is a 49 year old M here today for follow-up right knee pain. The patient had 2 of the 3 viscosupplementation injections. The third he had to miss due to taking care of his 94-year- old grandmother. They still has pain and weakness in the leg but that is really from 2 strokes in the past. He complains about diffuse medial and lateral as well as anterior knee pain. Injections were not overly helpful. Ortho Exam General General: Yes no acute distress Neurologic: Yes alert and Yes oriented x3 Psychologic: Yes reasonable and appropriate Right Knee Skin/Wound: Yes CDI, No erythema, No ecchymosis and Yes swelling Examination: Yes Med jt line tenderness and Yes Lat jt line tenderness KNEE: good quads strength Coding Level of Care Code Off vis,est,level 3 Diagnoses Osteoarthritis of right knee M17.11 Right knee pain M25.561 Assessment and Plan Assessment and Plan (1) Osteoarthritis of right knee: Status: Acute Plan: 49-year-old man with a right knee pain and a small cartilage defect lateral patellar facet. Surgical management of this to be considered could be OATS, KAROLINA, autologous chondrocyte implantation plus minus a patellar offloading procedure like a tibial tubercle osteotomy or lateral retinacular release or lengthening. I think more so the patient would benefit from continued nonsurgical management in the setting of his 2 strokes right lower extremity wea (more content not included)... Normal [facility] 07-01-2024 [facility] Telephone (ROBBY) TATE BALTAZAR ([id number]) 1975 M Date Time Provider Department 07/01/24 LEEANN OWENS During your visit today, we recorded the following information about you: Rabia Rangel 07/01/2024 4:14 PM Signed [facility] No-Show Documentation Tate Baltazar no showed for an appointment on 07/01/2024 with Leeann Owens PA-C. at [facility]. The patient was was scheduled for a follow up appointment. I called and spoke with the patient regarding missed appointment. N/A The patient stated the reason that they missed the appointment was because no answer . Resources discussed/offered to patient: N/A No show determined to be fault of patient: Yes This is the patients first no show in the last 12 months. Patient was rescheduled for no answer. Letter mailed regular mail AND certified : No reg mail only Is this the Third or Fourth No Show? No Rabia Rangel July 01, 2024 4:13 PM Allergies As of Date: 07/01/2024 Noted Allergy Reaction HYDROCHLOROTHIAZIDE 05/18/2020 14 - Other: See Comments SULFAMETHOXAZOLE-TRIMETHOPRI M 03/26/2020 16 - Unknown 14 - Other: See Comments ACETAMINOPHEN 09/02/2022 14 - Other: See Comments Comments: Rebound headaches ACETAMINOPHEN-CODEINE 07/24/2021 16 - Unknown DOXYCYCLINE 05/13/2023 4 - Hives HYDROCODONE 09/25/2020 14 - Other: See Comments ORANGE JUICE 11/19/2021 16 - Unknown ORANGE OIL 08/07/2015 4 - Hives 14 - Other: See Comments PSEUDOEPHEDRINE 05/20/2021 16 - Unknown VICODIN (HYDROCODONE-ACETAMINOPHE* 1 - Mental Status Change 9 - Itching ARIPIPRAZOLE 02/22/2021 1 - Mental Status Change Date Reviewed: 06/28/2024 Reviewed by: Darío Snow RN - Fully Assessed Reason for Visit: Missed Appointment [1304] Prescriptions as of 07/01/2024 - MYRBETRIQ 25 mg Tb24 Take 25 mg by mouth once daily. - sucralfate (CARAFATE) 1 gram tablet Take 1 g by mouth four times daily. - tiZANidine (ZANAFLEX) 4 mg tablet Take 4 mg by mouth every 6 hours as needed. - pregabalin (LYRICA) 150 mg capsule Take 1 capsule by mouth three times a day. - ondansetron (ZOFRAN) 8 mg tablet Take 8 mg by mouth every 8 hours as needed. - fexofenadine (KIMBERLY) 180 mg tablet Take 180 mg by mouth once daily. - DULoxetine (CYMBALTA) 60 mg capsule Take 180 mg by mouth once daily. - zonisamide (ZONEGRAN) 50 mg capsule Take 50 mg by mouth once daily. - fluticasone (FLONASE) 50 mcg/actuation nasal spray Use 2 Sprays in each nostril once daily. - gabapentin (NEURONTIN) 600 mg tablet Take 1 tablet by mouth three times a day for 90 days. - guaiFENesin-dextromethorphan (ROBITUSSIN DM) 100-10 mg/5 mL syrup Take 10 mL by mouth three times a day as needed. - cyclobenzaprine (FLEXERIL) 5 mg tablet Take 1 tablet by mouth three times a day as needed. - atorvastatin (LIPITOR) 40 mg tablet 1 tablet by ORAL/FEEDING TUBE route daily at bedtime. - tamsulosin (FLOMAX) 0.4 mg Take 0.4 mg by mouth once daily. - lidocaine (LIDODERM) 5 % Apply 1 Patch as directed as directed. Apply 1 patch for 12 hours then remove for 12 hours - docusate sodium (COLACE) 100 mg capsule Take 1 capsule by mouth twice daily. - naloxone 4 mg/actuation nasal spray (NARCAN) Use 1 spray in one nostril as needed for overdose. May repeat every 2 to 3 min in alternating nostrils until medical assistance is available - verapamil ER (VERELAN) 240 mg 24 hr capsule Take 240 mg by mouth once daily. - buPROPion XL (WELLBUTRIN XL) 300 mg 24 hr tablet TAKE 1 TABLET BY MOUTH EVERY 24 HOURS. REPLACES PREVIOUS PRESCRIPTION FOR BUPROPION 150 MG TABLET - valsartan (DIOVAN) 160 mg tablet Take 160 mg by mouth every morning. - cetirizine (ZYRTEC) 10 mg tablet Take 10 mg by mouth once daily. - AJOVY SYRINGE 225 mg/1.5 mL syringe - pantoprazole DR (PROTONIX) 40 mg tablet Take 40 mg by mouth twice daily. - potassium chloride ER (K-DUR, KLOR-CON) 20 mEq tablet Take 20 mEq by mouth twice daily. - NURTEC ODT 75 mg disintegrating tablet Problem List As Of Date 07/01/2024 Noted Resolved Pilonidal cyst with abscess [L05.01] 06/06/2010 Epigastric pain [R10.13] 09/27/2015 10/23/2017 Essential hypertension [I10] 10/01/2015 Depression [F32.A] 10/01/2015 Reflex sympathetic dystrophy [G90.50] 10/01/2015 Encounter for sterilization [Z30.2] 04/21/2016 Nontraumatic subcortical hemorrhage of left cer*10/19/2017 Dysphagia due to recent stroke [I69.391] 10/20/2017 Acute right hemiparesis (HCC) [G81.91] 10/20/2017 TSH deficiency [E03.8] 10/20/2017 Cerebral edema (HCC) [G93.6] 10/20/2017 10/23/2017 Migraine without aura [G43.009] 10/21/2017 Arthropathy of lumbar facet joint [M47.816] 07/10/2020 Radiculopathy, lumbar region [M54.16] 03/26/2020 History of CVA (cerebrovascular accident) [Z86.*11/19/2021 Chronic low back pain [M54.50, G89.29] 11/19/2021 DDD (degenerative disc di (more content not included)... [facility] ED NOTEon 06-28-2024 ED NOTE HNO ID: [id number] Author: THIERNO ESQUIVEL RN Service: ? Author Type: Registered Nurse Type: ED Notes Filed: 06/28/2024 17:30 Note Text: Pt's spouse states she made an appointment for the pt to see his pcp tomorrow. Pt signs ama paperwork and ambulated from ed with a steady gait. Normal [facility] ED NOTE HNO ID: [id number] Author: ?, ?, ? Service: Emergency Medicine Author Type: ? Type: ED Notes Filed: 06/28/2024 17:28 Note Text: Patient states that he just wants to leave. RN obtained signature on AMA form. [facility] ED NOTE HNO ID: [id number] Author: ?, ?, ? Service: Emergency Medicine Author Type: ? Type: ED Notes Filed: 06/28/2024 17:24 Note Text: Pt states he is vomiting Normal [facility] US ABDOMEN COMPLETEon 2024 US ABDOMEN COMPLETE ORIGINAL EXAMINATION: COMPLETE ABDOMINAL ULTRASOUND 05/24/2024 11:07 am COMPARISON: None. HISTORY: ORDERING SYSTEM PROVIDED HISTORY: Reason for Exam: Abdominal pain with questionable diverticulitis FINDINGS: LIVER: The liver demonstrates moderate diffuse increased echogenicity without evidence of intrahepatic biliary ductal dilatation. Liver measures 17.7 cm in length. BILIARY SYSTEM: Gallbladder partially distended containing 3 mm polyps and sludge. There is no stone disease, ultrasound Razo sign or gallbladder wall thickening. Common bile duct is within normal limits measuring 2.8 mm. KIDNEYS: The kidneys are unremarkable in appearance without evidence of hydronephrosis. Right and left kidneys measure 11.1 x 5.6 x 5.1 cm, and 10.7 x 5.5 x 5.0 cm respectively. There is appropriate cortical thickness and echotexture. PANCREAS: Visualized portions of the pancreas are unremarkable. SPLEEN: The spleen is unremarkable in appearance. Spleen is within normal limits in size. IVC: The IVC is patent. AORTA: Mid aorta measures 2.0 x 2.0 cm. Distal aorta measures 1.5 x 1.6 cm. Proximal aorta is obscured by bowel gas. OTHER: No evidence of ascites. IMPRESSION: 1. Diffuse fatty infiltration of the liver. 2. 3 mm gallbladder polyps and sludge. Interpreted by: Jason Verma DO Preliminary Report By: Jason Verma DO Electronically signed By Jason Verma DO Dictated Date: 05/24/2024 11:50:28 AM Prelim Date: 05/24/2024 11:52:04 AM Sign Date: 05/24/2024 11:52:04 AM Ordering Provider: ALLI DACOSTA Normal [facility] CBC W Auto Differential pane l (Bld)on 05-16-2024 Basophils (Bld) [#/Vol] 10*3/uL Normal <0.11 [facility] Comment on above: Order Comment: Brit galaviz Type: BLOOD SPECIMEN Ordering Facility: [facility] Address: [address] [place] [address] Performed By: #### 5 7021-8 #### [facility] CLIA [id number] [address] [place] [address] [place] Basophils/100 WBC (Bld) 0.4 % Normal [facility] Comment on above: Order Comment: Speci men Type: BLOOD SPECIMEN Ordering Facility: [facility] Address: [address] [place] [address] Performed By: #### 5 7021-8 #### [facility] CLIA [id number] [address] [place] [address] [place] Differential cell count method Nom (Bld) Auto Normal [facility] Comment on above: Order Comment: Speci men Type: BLOOD SPECIMEN Ordering Facility: [facility] Address: [address] [place] [address] Performed By: #### 5 7021-8 #### [facility] CLIA [id number] [address] [place] [address] [place] Eosinophils (Bld) [#/Vol] 0.10 10*3/uL Normal <0.46 [facility] Comment on above: Order Comment: Speci men Type: BLOOD SPECIMEN Ordering Facility: [facility] Address: [address] [place] [address] Performed By: #### 5 7021-8 #### [facility] CLIA [id number] [address] [place] [address] [place] Eosinophils/100 WBC (Bld) 2.0 % Normal [facility] Comment on above: Order Comment: Speci men Type: BLOOD SPECIMEN Ordering Facility: [facility] Address: [address] [place] [address] Performed By: #### 5 7021-8 #### [facility] CLIA [id number] [address] [place] [address] [place] Erythrocyte distribution width (RBC) [Ratio] 12.9 % Normal 11.5-15.0 [facility] Comment on above: Order Comment: Speci men Type: BLOOD SPECIMEN Ordering Facility: [facility] Address: [address] [place] [address] Performed By: #### 5 7021-8 #### [facility] CLIA [id number] [address] [place] [address] [place] Hematocrit (Bld) [Volume fraction] 36.4 % Low 39.0-51.0 [facility] Comment on above: Order Comment: Speci men Type: BLOOD SPECIMEN Ordering Facility: [facility] Address: [address] [place] [address] Performed By: #### 5 7021-8 #### [facility] CLIA [id number] [address] [place] [address] [place] Hemoglobin (Bld) [Mass/Vol] 11.9 g/dL Low 13.0-17.0 [facility] Comment on above: Order Comment: Speci men Type: BLOOD SPECIMEN Ordering Facility: [facility] Address: [address] [place] [address] Performed By: #### 5 7021-8 #### [facility] CLIA [id number] [address] [place] [address] [place] Immature granulocytes (Bld) [#/Vol] 0.03 10*3/uL Normal <0.10 [facility] Comment on above: Order Comment: Speci men Type: BLOOD SPECIMEN Ordering Facility: [facility] Address: [address] [place] [address] Performed By: #### 5 7021-8 #### [facility] CLIA [id number] [address] [place] [address] [place] Immature granulocytes/100 WBC (Bld) 0.6 % Normal [facility] Comment on above: Order Comment: Speci men Type: BLOOD SPECIMEN Ordering Facility: [facility] Address: [address] [place] [address] Performed By: #### 5 7021-8 #### [facility] CLIA [id number] [address] [place] [address] [place] Lymphocytes (Bld) [#/Vol] 1.56 10*3/uL Normal 1.00-4.00 [facility] Comment on above: Order Comment: Speci men Type: BLOOD SPECIMEN Ordering Facility: [facility] Address: [address] [place] [address] Performed By: #### 5 7021-8 #### [facility] CLIA [id number] [address] [place] [address] [place] Lymphocytes/100 WBC (Bld) 31.2 % Normal [facility] Comment on above: Order Comment: Speci men Type: BLOOD SPECIMEN Ordering Facility: [facility] Address: [address] [place] [address] Performed By: #### 5 7021-8 #### [facility] CLIA [id number] [address] [place], [place] [id number] [place] [address] MCH (RBC) [Entitic mass] 30.5 pg Normal 26.0-34.0 [facility] Comment on above: Order Comment: Speci men Type: BLOOD SPECIMEN Ordering Facility: [facility] Address: [address] [place] [address] Performed By: #### 5 7021-8 #### [facility] CLIA [id number] [address] [place], [place] [address] [place] [address] [place] MCHC (RBC) [Mass/Vol] 32.7 g/dL Normal 30.5-36.0 [facility] Comment on above: Order Comment: Speci men Type: BLOOD SPECIMEN Ordering Facility: [facility] Address: [address] [place] [address] Performed By: #### 5 7021-8 #### [facility] CLIA [id number] [address] [place] MCV (RBC) [Entitic vol] 93.3 fL Normal 80.0-100.0 [facility] Comment on above: Order Comment: Speci men Type: BLOOD SPECIMEN Ordering Facility: [facility] Address: [address] [place] [address] Performed By: #### 5 7021-8 #### [facility] CLIA [id number] [address] [place] Monocytes (Bld) [#/Vol] 0.61 10*3/uL Normal <0.87 [facility] Comment on above: Order Comment: Speci men Type: BLOOD SPECIMEN Ordering Facility: [facility] Address: [address] [place] [address] Performed By: #### 5 7021-8 #### [facility] CLIA [id number] [address] Monocytes/100 WBC (Bld) 12.2 % Normal [facility] Comment on above: Order Comment: Speci men Type: BLOOD SPECIMEN Ordering Facility: [facility] Address: [address] [place] [address] Performed By: #### 5 7021-8 #### [facility] CLIA [id number] [address] [place] [address] [place] Neutrophils (Bld) [#/Vol] 2.68 10*3/uL Normal 1.45-7.50 [facility] Comment on above: Order Comment: Speci men Type: BLOOD SPECIMEN Ordering Facility: [facility] Address: [address] [place] [address] Performed By: #### 5 7021-8 #### [facility] CLIA [id number] [address] [place] [address] [place] Neutrophils/100 WBC (Bld) 53.6 % Normal [facility] Comment on above: Order Comment: Speci men Type: BLOOD SPECIMEN Ordering Facility: [facility] Address: [address] [place] [address] Performed By: #### 5 7021-8 #### [facility] CLIA [id number] [address] [place] [address] [place] Nucleated RBC (Bld) [#/Vol] Normal [facility] Comment on above: Order Comment: Speci men Type: BLOOD SPECIMEN Ordering Facility: [facility] Address: [address] [place] [address] Performed By: #### 5 7021-8 #### [facility] CLIA [id number] [address] [place] [address] [place] Nucleated RBC/100 WBC (Bld) [Ratio] Normal [facility] Comment on above: Order Comment: Speci men Type: BLOOD SPECIMEN Ordering Facility: [facility] Address: [address] [place] [address] Performed By: #### 5 7021-8 #### [facility] CLIA [id number] [address] [place] [address] [place] Platelet mean volume (Bld) [Entitic vol] 9.7 fL Normal 9.0-12.7 [facility] Comment on above: Order Comment: Speci men Type: BLOOD SPECIMEN Ordering Facility: [facility] Address: [address] [place] [address] Performed By: #### 5 7021-8 #### [facility] CLIA [id number] [address] [place], [place] [address] [place] [address] Platelets (Bld) [#/Vol] 215 10*3/uL Normal 150-400 [facility] Comment on above: Order Comment: Speci men Type: BLOOD SPECIMEN Ordering Facility: [facility] Address: [address] [place] [address] Performed By: #### 5 7021-8 #### [facility] CLIA [id number] [address] RBC (Bld) [#/Vol] 3.90 10*6/uL Low 4.20-6.00 [facility] Comment on above: Order Comment: Speci men Type: BLOOD SPECIMEN Ordering Facility: [facility] Address: [address] [place] [address] Performed By: #### 5 7021-8 #### [facility] CLIA [id number] [address] WBC (Bld) [#/Vol] 5.00 10*3/uL Normal 3.70-11.00 [facility] Comment on above: Order Comment: Speci men Type: BLOOD SPECIMEN Ordering Facility: [facility] Address: [address] [place] [address] Performed By: #### 5 7021-8 #### [facility] CLIA [id number] [address] [place], [place] [address] [place] [address] CT ABD/PEL W IVCONon 024 CT ABD/PEL W IVCON * * *Final Report* * * DATE OF EXAM: May 16 2024 2:53AM [facility] 0530 - CT ABD/PEL W IVCON / PROCEDURE REASON: abdominal trauma * * * * Physician Interpretation * * * * EXAMINATION: CT CHEST W IVCON, CT ABD/PEL W IVCON CLINICAL HISTORY: Trauma. No symptoms provided. TECHNIQUE: CT of the chest from the thoracic inlet through the diaphragm was performed following administration of IV contrast. CT of the abdomen and pelvis was performed using standard technique, scanning from just above the dome of the diaphragm to the iliac crest. MQ: CTACW_4 Contrast: IV: 100 ml of Omnipaque 350 CT Radiation dose: Integrated Dose-length product (DLP) for this visit = 1127..77 mGy*cm. CT Dose Reduction Employed: Automated exposure control (AEC) COMPARISON: CT chest 09/12/[address] abdomen and pelvis 09/10/2023.. RESULT: Limitations: Quantum mottle artifact due to patient's upper extremities being scanned by his sides as well as breathing motion artifact partially obscures evaluation. Lines, tubes, and devices: None. Lung parenchyma and airways: Mild atelectasis in the dependent portions of the lungs. No consolidation or edema. No suspicious pulmonary nodule. The central airways are patent. Pleural space: No pleural effusion. No pleural thickening. Lower neck, lymph nodes, and mediastinum: The imaged thyroid gland is normal. No lymphadenopathy in the supraclavicular, axillary, mediastinal, or hilar regions. Heart, pericardium, and thoracic vessels: The thoracic aorta is normal in caliber. The main pulmonary artery is normal in caliber. Mild cardiomegaly is stable. Mild coronary artery atherosclerotic calcifications are noted, although the study is not optimized for coronary assessment. No pericardial effusion or thickening. Liver: No mass. Mild hepatomegaly measuring 18.4 cm craniocaudally with moderate steatosis is stable. Biliary: No bile duct dilation. Spleen: No mass. No splenomegaly. Pancreas: No mass or duct dilation. Adrenals: No mass. Kidneys: Renal nephrograms are symmetric. Exophytic cyst off the right kidney lower pole is again noted. No new renal lesion on early phase imaging. No hydronephrosis or evidence of nephrolithiasis. GI tract: No dilation or wall thickening. Appendix is not identified and may have been resected. No inflammatory changes at the expected location appendix. No diverticulosis. Lymph nodes: No abdominal or pelvic lymphadenopathy. Mesentery/Peritoneum: No ascites or mass. Retroperitoneum: No mass. Vasculature: The abdominal aorta is normal in caliber with no significant atherosclerotic change. Pelvis: No mass, ascites or fluid collection. Tiny fat-containing right inguinal hernia is stable. The bladder is unremarkable. Bones/Soft Tissues: No acute osseous abnormality destructive osseous lesion. Stable mild dextroscoliosis. Mildly to acute compression fracture of T11 is chronic. Wind Energy Technician (topogram) images: No additional findings. IMPRESSION: 1. No acute abnormality of the chest, abdomen, or pelvis. 2. Stable mild hepatomegaly with moderate steatosis. Wafer Cleaner: LALA Transcribe Date/Time: May 16 2024 5:18A Dictated by : JETHRO COLLINS MD This examination was interpreted and the report reviewed and electronically signed by: JETHRO COLLINS MD on May 16 2024 5:42AM EST [id number] Normal [facility] CT BRAIN WO IVCONon 05-16-20 CT BRAIN WO IVCON * * *Final Report* * * DATE OF EXAM: May 16 2024 2:53AM [facility] 0504 - CT BRAIN WO IVCON / PROCEDURE REASON: Head trauma, coagulopathy (Age 19-64y) * * * * Physician Interpretation * * * * EXAMINATION: CT BRAIN WO IVCON, CT CERVICAL SPINE WO IVCON CLINICAL HISTORY: Head trauma, coagulopathy . Mental status change, unknown cause. Neck trauma TECHNIQUE: Serial axial unenhanced images were obtained from the vertex to the foramen magnum. Spiral, high resolution axial unenhanced images were obtained from the skull base to the cervicothoracic junction with sagittal and coronal planar reconstructions. MQ: CTBCSWO_3 CT Dose-Length Product (DLP): 1127..77 mGy*cm CT Dose Reduction Employed: Automated exposure control (AEC); COMPARISON: 05/31/[address] RESULT: BRAIN: Acute change: No evidence of a sizable/large acute territorial brain infarct/parenchymal edema. MRI may be considered as a more sensitive modality if continued clinical concern/warranted. Hemorrhage: No evidence of acute intracranial hemorrhage. Mass Lesion / Mass Effect: There is no evidence of a sizable brain mass. No significant mass effect or extra-axial fluid collection. Chronic changes, including parenchymal: Old, presumed large biparietal foramina (unless there have been prior craniotomies), as before. Reidentified small to moderate-sized cystic cavity/remote hemorrhagic and/or ischemic insult centered in the left-sided striatocapsular region/adjacent white matter. Punctate foci of low attenuation within supratentorial white matter, which is nonspecific, but most commonly on the basis of minimal microvascular ischemia. There is no significant generalized volume loss for age. The brain parenchyma is otherwise unremarkable for age (in this modality). Ventricles: Commensurate with sulcal sizes. No hydrocephalus. Visualized paranasal sinuses: Partially imaged. Old sinonasal postoperative changes. Extensive mucosal thickening/nonspecific opacification of several bilateral anterior ethmoid air cells. Scattered, up to moderate mucosal thickening elsewhere. Mild chronic reactive sclerotic changes suggested. Mild nasal cavities opacities also noted. Other: Partially imaged moderate adenoidal prominence. No depressed skull fracture is seen. Occipital protuberance spur. CERVICAL: Counting reference: Craniocervical junction. Anatomic Variants: None. Alignment, curvature: Straightening of the normal cervical lordosis. No significant spondylolistheses. Craniocervical junction: No gross acute finding. Bone marrow, fracture: There appears to be mild generalized osteopenia. No evidence of an aggressive lytic or blastic process in the spine. No evidence of an acute fracture in the spine. Paraspinal soft tissues: The paraspinal soft tissue planes appear grossly preserved. Degenerative changes/canal/neural foramina: Minimal atlanto-axial arthritic changes. Additionally, at the imaged portion of the spine of primary interest, combination of facet arthropathy (up to moderate at C7-T1) and disc-osteophyte complexes (up to mild-moderate at C6-C7) contribute to up to mild (or slightly more on the RIGHT at C3-C4 neural foraminal stenoses. No high grade spinal canal stenosis is grossly apparent in this modality. Wind Energy Technician (topogram) images: Non-diagnostic. IMPRESSION: Brain CT shows no evidence of an acute intracranial abnormality. Chronic intracranial changes as above, including cystic encephalomalacia in the left-sided striatocapsular region. Cervical spine CT shows no evidence of an acute fracture or traumatic spondylolisthesis. Degenerative spine changes as above. Other details above, including old sinonasal postoperative changes and features of chronic rhinosinusitis. Anatomic Variant: None. Assume 7 cervical vertebrae with counting from the craniocervical junction. Wafer Cleaner: LALA Transcribe Date/Time: May 16 2024 3:33A Dictated by : ROB GARZA MD This examination was interpreted and the report reviewed and electronically signed by: ROB GARZA MD on May 16 2024 3:45AM EST [id number] Normal [facility] CT CERVICAL SPINE WO IVCONon 05-16-2024 CT CERVICAL SPINE WO IVCON * * *Final Report* * * DATE OF EXAM: May 16 2024 2:53AM [facility] 0505 - CT CERVICAL SPINE WO IVCON / PROCEDURE REASON: Neck trauma, intoxicated or obtunded (Age >= 16y) * * * * Physician Interpretation * * * * EXAMINATION: CT BRAIN WO IVCON, CT CERVICAL SPINE WO IVCON CLINICAL HISTORY: Head trauma, coagulopathy . Mental status change, unknown cause. Neck trauma TECHNIQUE: Serial axial unenhanced images were obtained from the vertex to the foramen magnum. Spiral, high resolution axial unenhanced images were obtained from the skull base to the cervicothoracic junction with sagittal and coronal planar reconstructions. MQ: CTBCSWO_3 CT Dose-Length Product (DLP): 1127..77 mGy*cm CT Dose Reduction Employed: Automated exposure control (AEC); COMPARISON: 05/31/[address] RESULT: BRAIN: Acute change: No evidence of a sizable/large acute territorial brain infarct/parenchymal edema. MRI may be considered as a more sensitive modality if continued clinical concern/warranted. Hemorrhage: No evidence of acute intracranial hemorrhage. Mass Lesion / Mass Effect: There is no evidence of a sizable brain mass. No significant mass effect or extra-axial fluid collection. Chronic changes, including parenchymal: Old, presumed large biparietal foramina (unless there have been prior craniotomies), as before. Reidentified small to moderate-sized cystic cavity/remote hemorrhagic and/or ischemic insult centered in the left-sided striatocapsular region/adjacent white matter. Punctate foci of low attenuation within supratentorial white matter, which is nonspecific, but most commonly on the basis of minimal microvascular ischemia. There is no significant generalized volume loss for age. The brain parenchyma is otherwise unremarkable for age (in this modality). Ventricles: Commensurate with sulcal sizes. No hydrocephalus. Visualized paranasal sinuses: Partially imaged. Old sinonasal postoperative changes. Extensive mucosal thickening/nonspecific opacification of several bilateral anterior ethmoid air cells. Scattered, up to moderate mucosal thickening elsewhere. Mild chronic reactive sclerotic changes suggested. Mild nasal cavities opacities also noted. Other: Partially imaged moderate adenoidal prominence. No depressed skull fracture is seen. Occipital protuberance spur. CERVICAL: Counting reference: Craniocervical junction. Anatomic Variants: None. Alignment, curvature: Straightening of the normal cervical lordosis. No significant spondylolistheses. Craniocervical junction: No gross acute finding. Bone marrow, fracture: There appears to be mild generalized osteopenia. No evidence of an aggressive lytic or blastic process in the spine. No evidence of an acute fracture in the spine. Paraspinal soft tissues: The paraspinal soft tissue planes appear grossly preserved. Degenerative changes/canal/neural foramina: Minimal atlanto-axial arthritic changes. Additionally, at the imaged portion of the spine of primary interest, combination of facet arthropathy (up to moderate at C7-T1) and disc-osteophyte complexes (up to mild-moderate at C6-C7) contribute to up to mild (or slightly more on the RIGHT at C3-C4 neural foraminal stenoses. No high grade spinal canal stenosis is grossly apparent in this modality. Wind Energy Technician (topogram) images: Non-diagnostic. IMPRESSION: Brain CT shows no evidence of an acute intracranial abnormality. Chronic intracranial changes as above, including cystic encephalomalacia in the left-sided striatocapsular region. Cervical spine CT shows no evidence of an acute fracture or traumatic spondylolisthesis. Degenerative spine changes as above. Other details above, including old sinonasal postoperative changes and features of chronic rhinosinusitis. Anatomic Variant: None. Assume 7 cervical vertebrae with counting from the craniocervical junction. Wafer Cleaner: [facility] Transcribe Date/Time: May 16 2024 3:33A Dictated by : ROB GARZA MD This examination was interpreted and the report reviewed and electronically signed by: ROB GARZA MD on May 16 2024 3:45AM EST [id number] Normal [facility] CT CHEST W IVCONon 4 CT CHEST W IVCON * * *Final Report* * * DATE OF EXAM: May 16 2024 2:53AM [facility] 0539 - CT CHEST W IVCON / PROCEDURE REASON: Chest trauma, blunt * * * * Physician Interpretation * * * * EXAMINATION: CT CHEST W IVCON, CT ABD/PEL W IVCON CLINICAL HISTORY: Trauma. No symptoms provided. TECHNIQUE: CT of the chest from the thoracic inlet through the diaphragm was performed following administration of IV contrast. CT of the abdomen and pelvis was performed using standard technique, scanning from just above the dome of the diaphragm to the iliac crest. MQ: CTACW_4 Contrast: IV: 100 ml of Omnipaque 350 CT Radiation dose: Integrated Dose-length product (DLP) for this visit = 1127..77 mGy*cm. CT Dose Reduction Employed: Automated exposure control (AEC) COMPARISON: CT chest 09/12/[address] abdomen and pelvis 09/10/2023.. RESULT: Limitations: Quantum mottle artifact due to patient's upper extremities being scanned by his sides as well as breathing motion artifact partially obscures evaluation. Lines, tubes, and devices: None. Lung parenchyma and airways: Mild atelectasis in the dependent portions of the lungs. No consolidation or edema. No suspicious pulmonary nodule. The central airways are patent. Pleural space: No pleural effusion. No pleural thickening. Lower neck, lymph nodes, and mediastinum: The imaged thyroid gland is normal. No lymphadenopathy in the supraclavicular, axillary, mediastinal, or hilar regions. Heart, pericardium, and thoracic vessels: The thoracic aorta is normal in caliber. The main pulmonary artery is normal in caliber. Mild cardiomegaly is stable. Mild coronary artery atherosclerotic calcifications are noted, although the study is not optimized for coronary assessment. No pericardial effusion or thickening. Liver: No mass. Mild hepatomegaly measuring 18.4 cm craniocaudally with moderate steatosis is stable. Biliary: No bile duct dilation. Spleen: No mass. No splenomegaly. Pancreas: No mass or duct dilation. Adrenals: No mass. Kidneys: Renal nephrograms are symmetric. Exophytic cyst off the right kidney lower pole is again noted. No new renal lesion on early phase imaging. No hydronephrosis or evidence of nephrolithiasis. GI tract: No dilation or wall thickening. Appendix is not identified and may have been resected. No inflammatory changes at the expected location appendix. No diverticulosis. Lymph nodes: No abdominal or pelvic lymphadenopathy. Mesentery/Peritoneum: No ascites or mass. Retroperitoneum: No mass. Vasculature: The abdominal aorta is normal in caliber with no significant atherosclerotic change. Pelvis: No mass, ascites or fluid collection. Tiny fat-containing right inguinal hernia is stable. The bladder is unremarkable. Bones/Soft Tissues: No acute osseous abnormality destructive osseous lesion. Stable mild dextroscoliosis. Mildly to acute compression fracture of T11 is chronic. Wind Energy Technician (topogram) images: No additional findings. IMPRESSION: 1. No acute abnormality of the chest, abdomen, or pelvis. 2. Stable mild hepatomegaly with moderate steatosis. Wafer Cleaner: P[facility] Transcribe Date/Time: May 16 2024 5:18A Dictated by : JETHRO COLLINS MD This examination was interpreted and the report reviewed and electronically signed by: JETHRO COLLINS MD on May 16 2024 5:42AM EST [id number] Normal [facility] Comprehensive metabolic 2000 panelon 05-16-2024 Albumin [Mass/Vol] 3.4 g/dL Low 3.9-4.9 [facility] Comment on above: Order Comment: Speci men Type: BLOOD SPECIMEN Ordering Facility: [facility] Address: [address] [place] [address] Performed By: #### 1 9123-9, 24806-1 #### [facility] CLIA [id number] [address] [place] [address] [place] ALP [Catalytic activity/Vol] 88 U/L Normal 38-113 [facility] Comment on above: Order Comment: Speci men Type: BLOOD SPECIMEN Ordering Facility: [facility] Address: [address] [place] [address] Performed By: #### 1 9123-9, 40646-6 #### [facility] CLIA [id number] [address] [place] [address] [place] ALT With P-5'-P [Catalytic activity/Vol] 18 U/L Normal 10-54 [facility] Comment on above: Order Comment: Speci men Type: BLOOD SPECIMEN Ordering Facility: [facility] Address: [address] [place] [address] Performed By: #### 1 9123-9, 11053-3 #### [facility] CLIA [id number] [address] [place] [address] [place] Anion gap [Moles/Vol] 9 mmol/L Normal 8-15 [facility] Comment on above: Order Comment: Speci men Type: BLOOD SPECIMEN Ordering Facility: [facility] Address: [address] [place] [address] Performed By: #### 1 9123-9, 06389-2 #### [facility] CLIA [id number] [address] [place] [address] [place] AST With P-5'-P [Catalytic activity/Vol] 19 U/L Normal 14-40 [facility] Comment on above: Order Comment: Speci men Type: BLOOD SPECIMEN Ordering Facility: [facility] Address: [address] [place] [address] Performed By: #### 1 9123-9, 43776-7 #### [facility] CLIA [id number] [address] [place] [address] [place] Bilirubin [Mass/Vol] 0.4 mg/dL Normal 0.2-1.3 [facility] Comment on above: Order Comment: Speci men Type: BLOOD SPECIMEN Ordering Facility: [facility] Address: [address] [place] [address] Performed By: #### 1 9123-9, 11928-7 #### [facility] CLIA [id number] [address] [place] [address] [place] Calcium [Mass/Vol] 8.5 mg/dL Normal 8.5-10.2 [facility] Comment on above: Order Comment: Speci men Type: BLOOD SPECIMEN Ordering Facility: [facility] Address: [address] [place] [address] Performed By: #### 1 9123-9, 96519-4 #### [facility] CLIA [id number] [address] [place] [address] [place] Chloride [Moles/Vol] 103 mmol/L Normal 98-107 [facility] Comment on above: Order Comment: Speci men Type: BLOOD SPECIMEN Ordering Facility: [facility] Address: [address] [place] [address] Performed By: #### 1 9123-9, 93250-1 #### [facility] CLIA [id number] [address] [place] [address] [place] [facility] CO2 [Moles/Vol] 25 mmol/L Normal 22-30 [facility] Comment on above: Order Comment: Speci men Type: BLOOD SPECIMEN Ordering Facility: [facility] Address: [address] [place] [address] Performed By: #### 1 23-9, 83449-4 #### [facility] CLIA [id number] [address] [place] [address] [place] [facility] Creatinine [Mass/Vol] 1.11 mg/dL Normal 0.73-1.22 [facility] Comment on above: Order Comment: Rondai men Type: BLOOD SPECIMEN Ordering Facility: [facility] Address: [address] [place] [address] Performed By: #### 1 9123-9, #### popexpert [facility] CLIA [id number] [address] Creatinine and Glomerular filtration rate.predicted panel (S/P/Bld) 82 mL/min/1.73m??? Normal >=60 [facility] Comment on above: Order Comment: Rondai men Type: BLOOD SPECIMEN Ordering Facility: [facility] Address: [address] [place] [address] Result Comment: Gladis mated Glomerular Filtration Rate (eGFR) is calculated using the 2020 CKD-EPI creatinine equation. This equation utilizes serum creatinine, sex, and age as parameters. The creatinine assay has traceable calibration to isotope dilution-mass spectrometry. Refer to KDIGO guidelines for clinical interpretation. In patients with unstable renal function, e.g. those with acute kidney injury, the eGFR may not accurately reflect actual GFR. Performed By: #### 1 9123-9, 52002-5 #### [facility] CLIA [id number] [address] [place] [address] [place] Glucose [Mass/Vol] 192 mg/dL High 74-99 [facility] Comment on above: Order Comment: Brit galaviz Type: BLOOD SPECIMEN Ordering Facility: [facility] Address: [address] [place] [address] Result Comment: The [place] Diabetes Association (ADA) provides guidance for cutoff values for fasting glucose and random glucose. The ADA defines fasting as no caloric intake for at least 8 hours. Fasting plasma glucose results between 100 to 125 mg/dL indicate increased risk for diabetes (prediabetes). Fasting plasma glucose results greater than or equal to 126 mg/dL meet the criteria for diagnosis of diabetes. In the absence of unequivocal hyperglycemia, results should be confirmed by repeat testing. In a patient with classic symptoms of hyperglycemia or hyperglycemic crisis, random plasma glucose results greater than or equal to 200 mg/dL meet the criteria for diagnosis of diabetes. Reference: Standards of Medical Care in Diabetes 2016, [place] Diabetes Association. Diabetes Care. 2016.39(Suppl 1). Performed By: #### 1 9123-9, 35159-9 #### [facility] CLIA [id number] [address] [place] [address] [place] Potassium [Moles/Vol] 3.8 mmol/L Normal 3.7-5.1 [facility] Comment on above: Order Comment: Brit galaviz Type: BLOOD SPECIMEN Ordering Facility: [facility] Address: [address] [place] [address] Performed By: #### 1 9123-9, 01274-8 #### [facility] CLIA [id number] [address] [place] [address] [place] Protein [Mass/Vol] 5.3 g/dL Low 6.3-8.0 [facility] Comment on above: Order Comment: Brit galaviz Type: BLOOD SPECIMEN Ordering Facility: [facility] Address: [address] [place] [address] Performed By: #### 1 9123-9, 98775-6 #### [facility] CLIA [id number] [address] [place] [address] [place] Sodium [Moles/Vol] 137 mmol/L Normal 136-144 [facility] Comment on above: Order Comment: Speci men Type: BLOOD SPECIMEN Ordering Facility: [facility] Address: [address] [place] [address] Performed By: #### 1 9123-9, 51835-9 #### [facility] CLIA [id number] [address] [place] [address] [place] [facility] Urea nitrogen [Mass/Vol] 10 mg/dL Normal 9-24 [facility] Comment on above: Order Comment: Speci men Type: BLOOD SPECIMEN Ordering Facility: [facility] Address: [place] [id number] Performed By: #### 1 9123-9, 98650-7 #### [facility] CLIA [id number] [address] [place] [address] [place] ECG COMPLETEon 05-16-2024 ECG COMPLETE Ventricular Rate : 6 3 BPM Atrial Rate : 63 BPM P-R Interval : 164 ms QRS Duration : 98 ms Q-T Interval : 424 ms QTC Calculation(Bazett) : 433 ms Calculated P Peterson : 34 degrees Calculated R Peterson : -11 degrees Calculated T Peterson : 1 degrees NORMAL SINUS RHYTHM NONSPECIFIC T WAVE ABNORMALITY ABNORMAL ECG WHEN COMPARED WITH ECG OF 12-Sep-2023 12:14, VENT. RATE HAS DECREASED by [address] NO LONGER DEPRESSED IN ANTERIOR LEADS NONSPECIFIC T WAVE ABNORMALITY HAS REPLACED INVERTED T WAVES IN ANTERIOR LEADS Confirmed by MD CEVALLOS VINAYAK ([id number]) on 05/17/2024 10:13:53 PM NAME : TATE BALTAZAR PID : [id number] : 1975 Gender : Male Race : ORD : [id number] Procedure Date : May 16 2024 00:55:50 Edit Date : May 17 2024 22:13:54 Diagnosis: NORMAL SINUS RHYTHM NONSPECIFIC T WAVE ABNORMALITY ABNORMAL ECG WHEN COMPARED WITH ECG OF 12-Sep-2023 12:14, VENT. RATE HAS DECREASED by [address] NO LONGER DEPRESSED IN ANTERIOR LEADS NONSPECIFIC T WAVE ABNORMALITY HAS REPLACED INVERTED T WAVES IN ANTERIOR LEADS Confirmed by MD CEVALLOS VINAYAK ([id number]) on 05/17/2024 10:13:53 PM Test Reason : DIZZYNESS Location : 191 : [facility] ED Overread By : MD CEVALLOS VINAYAK Edited By : MD CEVALLOS VINAYAK Referred By : GISELLE Acquired by : WERNER CINTRON [facility] ED NOTEon 05-16-2024 ED NOTE HNO ID: [id number] Author: MIGUEL REYES RN Service: Emergency Medicine Author Type: Registered Nurse Type: ED Notes Filed: 05/16/2024 06:23 Note Text: Patient discharge instructions given to patient. Patient educated on discharge instructions. Patient denied having questions at this time regarding discharge instructions. Patient discharged home at this time with patient's significant other. [facility] ED NOTE HNO ID: [id number] Author: DARÍO SNOW RN Service: Emergency Medicine Author Type: Registered Nurse Type: ED Notes Filed: 05/17/2024 08:53 Note Text: Patient Call Back Information How are you doing ? better Did we appropriately manage your pain? Yes Did you understand your discharge instructions? Yes Did you get your prescriptions filled? Yes Were you able to make a follow-up appointment with your physician? Yes Were you comfortable during your stay here? Yes Did a member of the ER nursing team round on you during your visit? Yes You will receive a patient satisfaction survey in the mail in the nest 2 weeks, please take the time to fill out the survey as your input from your ER visit is very important to us. Yes Can we do anything else to help you? No [facility] ED NOTE HNO ID: [id number] Author: MIGUEL REYES RN Service: Emergency Medicine Author Type: Registered Nurse Type: ED Notes Filed: 05/16/2024 05:15 Note Text: ED physician stating that we do not need to collect the third troponin. [facility] ED NOTE HNO ID: [id number] Author: MIGUEL REYES RN Service: Emergency Medicine Author Type: Registered Nurse Type: ED Notes Filed: 05/16/2024 04:51 Note Text: Physician at bedside. Physician removed C-Collar at this time. [facility] ED NOTE HNO ID: [id number] Author: MIGUEL REYES RN Service: Emergency Medicine Author Type: Registered Nurse Type: ED Notes Filed: 05/16/2024 01:04 Note Text: Transfer of patient care report received from Pratibha Bill RN. I assumed patient care at this time. Normal [facility] ED NOTE HNO ID: [id number] Author: MIGUEL REYES RN Service: Emergency Medicine Author Type: Registered Nurse Type: ED Notes Filed: 05/16/2024 00:52 Note Text: RT at bedside for EKG. Patient's spouse at bedside. Normal [facility] ED PROV NOTEon 05-16-2024 ED PROV NOTE HNO ID: [id number] Author: MIREYA DESAI MD Service: Emergency Medicine Author Type: Physician Type: ED Provider Notes Filed: 05/21/2024 09:49 Note Text: ED Provider Note Patient Name: Tate Baltazar : 1975 SERVICE DATE: 05/16/24 History Patient presents with: Dizziness Fall The patient is a 49-year-old male presenting today for complaint of 2 syncopal episodes. He arrives with his significant other who gives a lot of the history as patient is extremely lethargic upon arrival. According to the significant other patient went to bed at his normal time in his normal state of health. He took all the medications he typically would take at night plus the addition of a NyQuil cold and sinus type medication. He had to get up in the middle of the night to use the restroom. He was very unsteady on his feet and lethargic when he did this and so she helped him to the bathroom. She is stepped away from him just for a moment to go get something and when she returned patient had fallen on the floor and hit his head on the fridge. She states when they tried to stand him back up again he then passed out again. She then called EMS to bring him to the emergency department. Patient tells me that he remembers hitting the floor but other than that is very vague on what happened this morning. He is continuously needing to be sternal rub to arouse. When asked the patient's significant other what he had taken for his normal nighttime meds I again was told the NyQuil type medication, 2 of his Zanaflex, and his Lyrica. Typically he would take just the Zanaflex x2 and lyrica. Patient has significant history of stroke which is what made her significantly concerned that that is what happened. No tremors or seizure-like activity. Patient was taken the NyQuil because he has been having some rhinorrhea and nasal congestion for the last 2 days. 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 Stroke due to intracerebral hemorrhage (HCC) 2017 Had an additional stroke at age 25 PAST SURGICAL HISTORY Procedure Laterality Date APPENDECTOMY CARPAL TUNNEL Left 2014 COLONOSCOPY 20's with EGD EGD TRANSORAL BIOPSY SINGLE/MULTIPLE 10/02/2015 EXCISION PILONIDAL CYST/SINUS EXTENSIVE 07/05/2010 closed ORTHOPEDICS SURGERY HX Right 12/2022 Right ROTATOR cUFF PAST SURGICAL HISTORY OF right knee surgery TONSILLECTOMY PRIMARY/SECONDARY Tonsillectomy VASECTOMY UNI/BI SPX W/POSTOP SEMEN EXAMS Bilateral 05/23/2016 FAMILY HISTORY Problem Relation Age of Onset Prostate Cancer Father Hypertension Father Social History Tobacco Use Smoking status: Never Passive exposure: Never Smokeless tobacco: Never Vaping Use Vaping status: Never Used Substance and Sexual Activity Alcohol use: Yes Comment: OCCASIONAL Drug use: No Sexual activity: Never ALLERGIES Allergen Reactions Hydrochlorothiazide Other: See Comments Sulfamethoxazole-Tr* Unknown, Other: See Comments Acetaminophen Other: See Comments Rebound headaches Acetaminophen-Codei* Unknown Doxycycline Hives Hydrocodone Other: See Comments Kihei Juice Unknown Kihei Oil Hives, Other: See Comments Pseudoephedrine Unknown Vicodin [Hydrocodon* Mental Status Change, Itching Aripiprazole Mental Status Change Review of Systems Unable to perform ROS: Other (Patient is extremely lethargic and sleepy and difficult to keep aroused to answer questions) Physical Exam Vitals [05/16/24 0041] BP Pulse Temp Temp src Resp SpO2 Weight Height 102/65 65 36.1 ?C (97 ?F) Temporal 18 96 % -- -- Physical Exam Vitals and nursing note reviewed. Constitutional: General: He is not in acute distress. Appearance: Normal appearance. He is well-developed. He is not ill-appearing. HENT: Head: Normocephalic and atraumatic. Right Ear: Tympanic membrane, ear canal and external ear normal. Left Ear: Tympanic membrane, ear canal and external ear normal. Nose: Nose normal. No congestion or rhinorrhea. Mouth/Throat: Mouth: Mucous membranes are moist. Pharynx: No oropharyngeal exudate or posterior oropharyngeal erythema. Eyes: Extraocular Movements: Extraocular movements intact. Pupils: Pupils are equal, round, and reactive to light. Cardiovascular: Rate and Rhythm: Normal rate and regular rhythm. Pulses: Normal pulses. Heart sounds: Normal heart sounds. No murmur heard. No friction rub. No gallop. Pulmonary: Effort: Pulmonary effort is normal. No respiratory distress. Breath sounds: Normal breath sounds. No stridor. No wheezing, rhonchi or rales. Abdominal: General: Bowel sounds are normal. There is no distension. Palpations: Abdomen is (more content not included)... Normal [facility] Gas and Carbon monoxide pane l (BldV)on 05-16-2024 Base excess Calc (BldV) [Moles/Vol] 1 mmol/L Normal 0-2 [facility] Comment on above: Order Comment: Speci men Type: VENOUS BLOOD SPECIMEN Ordering Facility: [facility] Address: [address] [place] [address] Performed By: #### 2 4344-4 #### [facility] CLIA [id number] [address] [place] [address] [place] Body temperature 96.98 [degF] Normal [facility] Comment on above: Order Comment: Speci men Type: VENOUS BLOOD SPECIMEN Ordering Facility: [facility] Address: [address] [place] [address] Performed By: #### 2 4344-4 #### [facility] CLIA [id number] [address] [place] [address] [place] Calcium.ionized (Bld) [Mass/Vol] 1.15 mmol/L Normal 1.08-1.30 [facility] Comment on above: Order Comment: Speci men Type: VENOUS BLOOD SPECIMEN Ordering Facility: [facility] Address: [address] [place] [address] Performed By: #### 2 4344-4 #### [facility] CLIA [id number] [address] [place] [address] [place] Calcium.ionized adjusted to pH 7.4 (BldA) [Moles/Vol] 1.14 mmol/L Normal 1.08-1.30 [facility] Comment on above: Order Comment: Speci men Type: VENOUS BLOOD SPECIMEN Ordering Facility: [facility] Address: [address] [place] [address] Performed By: #### 2 4344-4 #### [facility] CLIA [id number] [address] [place] [address] [place] Carboxyhemoglobin (BldV) [Mass fraction] 1.8 % Normal 0.0-2.0 [facility] Comment on above: Order Comment: Speci men Type: VENOUS BLOOD SPECIMEN Ordering Facility: [facility] Address: [address] [place] [address] Result Comment: Carb oxyhemoglobin Reference Range for Smokers: 2.0-8.0% Performed By: #### 2 4344-4 #### [facility] CLIA [id number] [address] [place] [address] [place] Chloride [Moles/Vol] 107 mmol/L High 97-105 [facility] Comment on above: Order Comment: Speci men Type: VENOUS BLOOD SPECIMEN Ordering Facility: [facility] Address: [address] [place] [address] Performed By: #### 2 4344-4 #### [facility] CLIA [id number] [address] [place] [address] [place] CO2 (BldV) [Partial pressure] 43 mm[Hg] Normal 42-55 [facility] Comment on above: Order Comment: Speci men Type: VENOUS BLOOD SPECIMEN Ordering Facility: [facility] Address: [address] [place] [address] Performed By: #### 2 4344-4 #### [facility] CLIA [id number] [address] [place] [address] [place] CO2 adjusted to patient's actual temperature (BldV) [Partial pressure] 41 mmHg Low 42-55 [facility] Comment on above: Order Comment: Speci men Type: VENOUS BLOOD SPECIMEN Ordering Facility: [facility] Address: [address] [place] [address] Performed By: #### 2 4344-4 #### [facility] CLIA [id number] [address] [place] [address] [place] Glucose [Mass/Vol] 125 mg/dL High 60-105 [facility] Comment on above: Order Comment: Speci men Type: VENOUS BLOOD SPECIMEN Ordering Facility: [facility] Address: [address] [place] [address] Performed By: #### 2 4344-4 #### [facility] CLIA [id number] [address] [place] [address] [place] HCO3 (Bld) [Moles/Vol] 26 mmol/L Normal 24-28 [facility] Comment on above: Order Comment: Speci men Type: VENOUS BLOOD SPECIMEN Ordering Facility: [facility] Address: [address] [place] [address] Performed By: #### 2 4344-4 #### [facility] CLIA [id number] [address] [place] [address] [place] Hematocrit (Bld) [Volume fraction] 38.7 % Low 39.0-51.0 [facility] Comment on above: Order Comment: Speci men Type: VENOUS BLOOD SPECIMEN Ordering Facility: [facility] Address: [address] [place] [address] Performed By: #### 2 4344-4 #### [facility] CLIA [id number] [address] [place] [address] [place] Hemoglobin (Bld) [Mass/Vol] 12.6 g/dL Low 13.0-17.0 [facility] Comment on above: Order Comment: Speci men Type: VENOUS BLOOD SPECIMEN Ordering Facility: [facility] Address: [address] [place] [address] Performed By: #### 2 4344-4 #### [facility] CLIA [id number] [address] [place] [address] [place] Lactate [Moles/Vol] 1.1 mmol/L Normal 0.5-2.2 [facility] Comment on above: Order Comment: Speci men Type: VENOUS BLOOD SPECIMEN Ordering Facility: [facility] Address: [address] [place] [address] Performed By: #### 2 4344-4 #### [facility] CLIA [id number] [address] [place] [address] [place] Methemoglobin (Bld) [Mass fraction] % Normal 0.0-1.5 [facility] Comment on above: Order Comment: Speci men Type: VENOUS BLOOD SPECIMEN Ordering Facility: [facility] Address: [address] [place] [address] Performed By: #### 2 4344-4 #### [facility] CLIA [id number] [address] [place] [address] [place] Oxygen (BldV) [Partial pressure] 70 mm[Hg] High 35-45 [facility] Comment on above: Order Comment: Speci men Type: VENOUS BLOOD SPECIMEN Ordering Facility: [facility] Address: [address] [place] [address] Performed By: #### 2 4344-4 #### [facility] CLIA [id number] [address] [place] [address] [place] Oxygen adjusted to patient's actual temperature (BldV) [Partial pressure] Normal [facility] Comment on above: Order Comment: Speci men Type: VENOUS BLOOD SPECIMEN Ordering Facility: [facility] Address: [address] [place] [address] Performed By: #### 2 4344-4 #### [facility] CLIA [id number] [address] [place] [address] [place] Oxygen saturation in Venous blood 95 % High 60-85 [facility] Comment on above: Order Comment: Speci men Type: VENOUS BLOOD SPECIMEN Ordering Facility: [facility] Address: [address] [place] [address] Performed By: #### 2 4344-4 #### [facility] CLIA [id number] [address] [place] [address] [place] Oxyhemoglobin (BldV) [Mass fraction] 92 % High 60-85 [facility] Comment on above: Order Comment: Speci men Type: VENOUS BLOOD SPECIMEN Ordering Facility: [facility] Address: [address] [place] [address] Performed By: #### 2 4344-4 #### [facility] CLIA [id number] [address] [place] [address] [place] pH (BldV) 7.39 [pH] Normal 7.32-7.42 [facility] Comment on above: Order Comment: Speci men Type: VENOUS BLOOD SPECIMEN Ordering Facility: [facility] Address: [facility] [place] [address] Performed By: #### 2 4344-4 #### [facility] CLIA [id number] [address] [place] [address] [place] pH adjusted to patient's actual temperature (BldV) 7.40 Normal 7.32-7.42 [facility] Comment on above: Order Comment: Speci men Type: VENOUS BLOOD SPECIMEN Ordering Facility: [facility] Address: [facility] [place] [address] Performed By: #### 2 4344-4 #### [facility] CLIA [id number] [address] [place] [address] [place] Potassium [Moles/Vol] 3.7 mmol/L Normal 3.5-5.0 [facility] Comment on above: Order Comment: Speci men Type: VENOUS BLOOD SPECIMEN Ordering Facility: [facility] Address: [facility] [place] [address] Performed By: #### 2 4344-4 #### [facility] CLIA [id number] [address] [place] [address] [place] Sodium [Moles/Vol] 140 mmol/L Normal 136-144 [facility] Comment on above: Order Comment: Speci men Type: VENOUS BLOOD SPECIMEN Ordering Facility: [facility] Address: [address] [place] [address] Performed By: #### 2 4344-4 #### [facility] CLIA [id number] [address] [place] [address] [facility] HIGH SENSITIVITY TROPONIN T (INITIAL)on 05-16-2024 Troponin T.cardiac High sensitivity method [Mass/Vol] 15 ng/L High <12 [facility] Comment on above: Order Comment: Speci men Type: BLOOD SPECIMEN Ordering Facility: [facility] Address: [address] [place] [address] Performed By: #### L [id number] #### [facility] CLIA [id number] [address] [place] [address] HIGH SENSITIVITY TROPONIN T (SECOND)on 05-16-2024 Troponin T.cardiac High sensitivity method [Mass/Vol] 15 ng/L High <12 [facility] Comment on above: Order Comment: Speci men Type: BLOOD SPECIMEN Ordering Facility: [facility] Address: [address] [place] [address] Performed By: #### L [id number] #### [facility] CLIA [id number] [address] [place], [place] [id number] [facility] Magnesium SerPl-mCncon 05-16 Magnesium [Mass/Vol] 1.9 mg/dL Normal 1.7-2.3 [facility] Comment on above: Order Comment: Speci men Type: BLOOD SPECIMEN Ordering Facility: [facility] Address: [address] [place] [address] Performed By: #### 1 9123-9, 95256-6 #### [facility] CLIA [id number] [address] [place] [address] [place] XR HIP 3V PELV+ AP/LAT LTon 05-16-2024 XR HIP 3V PELV+ AP/LAT LT * * *Final Report* * * DATE OF EXAM: May 16 2024 2:48AM LDX 5351 - XR HIP 3V PELV+ AP/LAT LT / PROCEDURE REASON: Hip pain, acute, fx suspected, initial exam * * * * Physician Interpretation * * * * EXAMINATION: XR HIP 3V PELV+ AP/LAT LT HISTORY: Hip pain, acute, fx suspected, initial exam COMPARISON: 05.31.23 FINDINGS: Bone: No fracture or dislocation . Soft tissue: Unremarkable Other: Unremarkable IMPRESSION: No fracture or dislocation. Wafer Cleaner: PSCB Transcribe Date/Time: May 16 2024 5:04A Dictated by : SUSIE OAKES MD This examination was interpreted and the report reviewed and electronically signed by: SUSIE OAKES MD on May 16 2024 5:06AM EST [id number] Normal [facility] HPon 05-05-2024 H. Pylori IgG Negative Normal [facility] Comment on above: Result Comment: INTE RPRETATION OF H. PYLORI IGG BY EIA: Negative No detectable antibodies to H. pylori. Positive H. pylori IgG antibody detected. Equivocal Equivocal for IgG antibodies to H. pylori. Repeat testing if still indicated. Performed By: #### A DIFF, LIP, WALTER, GFR, CBC, CMP, ANEU #### [address] [address] #### HP #### [address] [address] .Auto Diffon 05-03-2024 Basophil, Absolute 0.0 10 3/mcL Normal 0.0-0.2 [facility] Comment on above: Performed By: #### A DIFF, LIP, WALTER, GFR, CBC, CMP, ANEU #### [address] [address] #### HP #### [address] [address] Basophils/100 WBC (Bld) 0.6 % Normal 0.0-2.5 [facility] Comment on above: Performed By: #### A DIFF, LIP, WALTER, GFR, CBC, CMP, ANEU #### [address] [address] #### HP #### [address] [address] Eosinophil, Absolute 0.1 10 3/mcL Normal 0.0-0.7 [facility] Comment on above: Performed By: #### A DIFF, LIP, WALTER, GFR, CBC, CMP, ANEU #### [address] [address] #### HP #### [address] [address] Eosinophils/100 WBC (Bld) 1.0 % Normal 0.0-7.0 [facility] Comment on above: Performed By: #### A DIFF, LIP, WALTER, GFR, CBC, CMP, ANEU #### [address] [address] #### HP #### [address] [address] Lymphocyte, Absolute 1.9 10 3/mcL Normal 0.9-4.3 [facility] Comment on above: Performed By: #### A DIFF, LIP, WALTER, GFR, CBC, CMP, ANEU #### [address] [address] #### HP #### [address] [address] Lymphocytes/100 WBC (Bld) 31.0 % Normal 20.0-40.0 [facility] Comment on above: Performed By: #### A DIFF, LIP, WALTER, GFR, CBC, CMP, ANEU #### [address] [address] #### HP #### [address] [address] Monocyte, Absolute 0.5 10 3/mcL Normal 0.1-1.4 [facility] Comment on above: Performed By: #### A DIFF, LIP, WALTER, GFR, CBC, CMP, ANEU #### [address] [address] #### HP #### [address] [address] Monocytes/100 WBC (Bld) 8.0 % Normal 2.0-13.0 [facility] Comment on above: Performed By: #### A DIFF, LIP, WALTER, GFR, CBC, CMP, ANEU #### [address] [address] #### HP #### [address] [address] Neutrophils/100 WBC (Bld) 59.4 % Normal 50.0-75.0 [facility] Comment on above: Performed By: #### A DIFF, LIP, WALTER, GFR, CBC, CMP, ANEU #### [address] [address] #### HP #### [address] [address] .GFRon 05-03-2024 GFR 99 ml/min/1.73sqm Normal [facility] Comment on above: Result Comment: GFR Population mean for , Non- Americans Ages 20-29 = 116 mL/min/1.73 sq.m. Ages 30-39 = 107 mL/min/1.73 sq.m. Ages 40-49 = 99 mL/min/1.73 sq.m. Ages 50-59 = 93 mL/min/1.73 sq.m. Ages 60-69 = 85 mL/min/1.73 sq.m. Ages 70+ = 75 mL/min/1.73 sq.m. Chronic Kidney Disease: Less than 60 mL/min/1.73 square meters End Stage Renal Disease: Less than 15 mL/min/1.73 square meters Performed By: #### A DIFF, LIP, WALTER, GFR, CBC, CMP, ANEU #### [address] [address] #### HP #### [address] [address] GFR Non- 82 ml/min/1.73sqm Normal [facility] Comment on above: Result Comment: GFR Population mean for , Non- Americans Ages 20-29 = 116 mL/min/1.73 sq.m. Ages 30-39 = 107 mL/min/1.73 sq.m. Ages 40-49 = 99 mL/min/1.73 sq.m. Ages 50-59 = 93 mL/min/1.73 sq.m. Ages 60-69 = 85 mL/min/1.73 sq.m. Ages 70+ = 75 mL/min/1.73 sq.m. Chronic Kidney Disease: Less than 60 mL/min/1.73 square meters End Stage Renal Disease: Less than 15 mL/min/1.73 square meters Performed By: #### A DIFF, LIP, WALTER, GFR, CBC, CMP, ANEU #### [place] [address] #### HP #### [place] [address] .NEUABSon 05-03-2024 Neutrophil, Absolute 3.6 10 3/mcL Normal 2.3-8.1 [facility] Comment on above: Performed By: #### A DIFF, LIP, WALTER, GFR, CBC, CMP, ANEU #### [place] [address] #### HP #### [place] [address] AMYon 05-03-2024 Amylase [Catalytic activity/Vol] 45 U/L Normal 25-115 [facility] Comment on above: Performed By: #### A DIFF, LIP, WALTER, GFR, CBC, CMP, ANEU #### [place] [address] #### HP #### [place] [address] CBCon 05-03-2024 Erythrocyte distribution width (RBC) [Ratio] 14.4 % Normal 11.5-15.5 [facility] Comment on above: Performed By: #### A DIFF, LIP, WALTER, GFR, CBC, CMP, ANEU #### [place] [address] #### HP #### [place] [address] Hematocrit (Bld) [Volume fraction] 41.3 % Normal 40.0-52.0 [facility] Comment on above: Performed By: #### A DIFF, LIP, WALTER, GFR, CBC, CMP, ANEU #### [place] [address] #### HP #### [place] [address] Hgb 14.2 G/dL Normal 13.0-17.5 [facility] Comment on above: Performed By: #### A DIFF, LIP, WALTER, GFR, CBC, CMP, ANEU #### [place] [address] #### HP #### [place] [address] MCH (RBC) [Entitic mass] 31.2 pg Normal 27.0-33.0 [facility] Comment on above: Performed By: #### A DIFF, LIP, WALTER, GFR, CBC, CMP, ANEU #### [place] [address] #### HP #### [place] [address] MCHC 34.4 G/dL Normal 32.0-36.0 [facility] Comment on above: Performed By: #### A DIFF, LIP, WALTER, GFR, CBC, CMP, ANEU #### [place] [address] #### HP #### [place] [address] MCV (RBC) [Entitic vol] 90.7 fL Normal 81.0-100.0 [facility] Comment on above: Performed By: #### A DIFF, LIP, WALTER, GFR, CBC, CMP, ANEU #### [place] [address] #### HP #### [place] [address] Platelet 243 10 3/mcL Normal 150-450 [facility] Comment on above: Performed By: #### A DIFF, LIP, WALTER, GFR, CBC, CMP, ANEU #### [address] [address] #### HP #### [address] [address] Platelet mean volume (Bld) [Entitic vol] 8.2 fL Normal 6.4-10.5 [facility] Comment on above: Performed By: #### A DIFF, LIP, WALTER, GFR, CBC, CMP, ANEU #### [place] [address] #### HP #### [place] [address] RBC 4.55 10 6/mcL Normal 4.50-6.00 [facility] Comment on above: Performed By: #### A DIFF, LIP, WALTER, GFR, CBC, CMP, ANEU #### [place] [address] #### HP #### [place] [address] WBC 6.0 10 3/mcL Normal 4.5-10.8 [facility] Comment on above: Performed By: #### A DIFF, LIP, WALTER, GFR, CBC, CMP, ANEU #### [place] [address] #### HP #### [place] [address] CMPon 05-03-2024 Albumin Level 3.4 G/dL Low 3.5-5.0 [facility] Comment on above: Performed By: #### A DIFF, LIP, WALTER, GFR, CBC, CMP, ANEU #### [place] [address] #### HP #### [place] [address] Albumin/Globulin [Mass ratio] 1.4 {ratio} Normal 1.1-2.5 [facility] Comment on above: Performed By: #### A DIFF, LIP, WALTER, GFR, CBC, CMP, ANEU #### [place] [address] #### HP #### [address] [address] ALP [Catalytic activity/Vol] 85 U/L Normal 40-135 [facility] Comment on above: Performed By: #### A DIFF, LIP, WALTER, GFR, CBC, CMP, ANEU #### [address] [address] #### HP #### [address] [address] ALT [Catalytic activity/Vol] 35 U/L Normal 16-63 [facility] Comment on above: Performed By: #### A DIFF, LIP, WALTER, GFR, CBC, CMP, ANEU #### [address] [address] #### HP #### [address] [address] AST [Catalytic activity/Vol] 18 U/L Normal 10-40 [facility] Comment on above: Performed By: #### A DIFF, LIP, WALTER, GFR, CBC, CMP, ANEU #### [address] [address] #### HP #### [address] [address] Bili Total 0.8 mg/dL Normal 0.2-1.0 [facility] Comment on above: Result Comment: Use of this assay is not recommended for patients undergoing treatment with eltrombopag due to the potential for falsely elevated results. Performed By: #### A DIFF, LIP, WALTER, GFR, CBC, CMP, ANEU #### [address] [address] #### HP #### [place] [address] BUN/Creatinine Ratio 4 ratio Low 7-27 [facility] Comment on above: Performed By: #### A DIFF, LIP, WALTER, GFR, CBC, CMP, ANEU #### [address] [address] #### HP #### [address] [address] Calcium [Mass/Vol] 9.0 mg/dL Normal 8.4-10.2 [facility] Comment on above: Performed By: #### A DIFF, LIP, WALTER, GFR, CBC, CMP, ANEU #### [address] [address] #### HP #### [address] [address] Chloride [Moles/Vol] 109 mmol/L High 98-107 [facility] Comment on above: Performed By: #### A DIFF, LIP, WALTER, GFR, CBC, CMP, ANEU #### [address] [address] #### HP #### [address] [address] CO2 [Moles/Vol] 29 mmol/L Normal 22-29 [facility] Comment on above: Performed By: #### A DIFF, LIP, WALTER, GFR, CBC, CMP, ANEU #### [address] [address] #### HP #### [place] [address] Creatinine [Mass/Vol] 0.98 mg/dL Normal 0.70-1.30 [facility] Comment on above: Result Comment: Test ing performed on Siemens Dimension EXL analyzer using a modified kinetic Saeed technique. Performed By: #### A DIFF, LIP, WALTER, GFR, CBC, CMP, ANEU #### [place] [address] #### HP #### [address] [address] Electrolyte Balance 10.0 mEq/L Normal 4.0-15.[address] [facility] Comment on above: Performed By: #### A DIFF, LIP, WALTER, GFR, CBC, CMP, ANEU #### [address] [address] #### HP #### [place] [address] Globulin 2.4 G/dL Normal [facility] Comment on above: Performed By: #### A DIFF, LIP, WALTER, GFR, CBC, CMP, ANEU #### [address] [address] #### HP #### [address] [address] Glucose [Mass/Vol] 77 mg/dL Normal 70-105 [facility] Comment on above: Performed By: #### A DIFF, LIP, WALTER, GFR, CBC, CMP, ANEU #### [address] [address] #### HP #### [address] [address] Potassium [Moles/Vol] 3.6 mmol/L Normal 3.5-5.1 [facility] Comment on above: Performed By: #### A DIFF, LIP, WALTER, GFR, CBC, CMP, ANEU #### [place] [address] #### HP #### [address] [address] Sodium [Moles/Vol] 148 mmol/L High 136-145 [facility] Comment on above: Performed By: #### A DIFF, LIP, WALTER, GFR, CBC, CMP, ANEU #### [address] [address] #### HP #### [address] [address] Total Protein 5.8 G/dL Low 6.4-8.2 [facility] Comment on above: Performed By: #### A DIFF, LIP, WALTER, GFR, CBC, CMP, ANEU #### [place] [address] #### HP #### [address] [address] Urea nitrogen [Mass/Vol] 4 mg/dL Low 7-18 [facility] Comment on above: Performed By: #### A DIFF, LIP, WALTER, GFR, CBC, CMP, ANEU #### [place] [address] [place], [place] [address] #### HP #### [address] [address] LABORATORYOrdered By: SYSTEM SYSTEM on 05-03-2024 Albumin BCP dye [Mass/Vol] 3.4 G/dL Low 3.5 - 5.0 G/dL AO ADM SS Albumin/Globulin [Mass ratio] 1.4 {ratio} Normal 1.1 - 2.5 ratio AO ADM SS ALP [Catalytic activity/Vol] 85 U/L Normal 40 - 135 U/L AO ADM SS ALT With P-5'-P [Catalytic activity/Vol] 35 U/L Normal 16 - 63 U/L AO ADM SS Amylase [Catalytic activity/Vol] 45 U/L Normal 25 - 115 U/L AO ADM SS AST With P-5'-P [Catalytic activity/Vol] 18 U/L Normal 10 - 40 U/L AO ADM SS Basophils (Bld) [#/Vol] 0.0 103/mcL Normal 0.0 - 0.2 10^3/mcL AO Workflow SS Basophils/100 WBC (Bld) 0.6 % Normal 0.0 - 2.5 % AO Workflow SS Bilirubin [Mass/Vol] 0.8 mg/dL Normal 0.2 - 1.0 mg/dL AO ADM SS Comment on above: Interpretive Data: U se of this assay is not recommended for patients undergoing treatment with eltrombopag due to the potential for falsely elevated results. Calcium [Mass/Vol] 9.0 mg/dL Normal 8.4 - 10. 2 mg/dL AO ADM SS Chloride [Moles/Vol] 109 mmol/L High 98 - 107 mmol/L AO ADM SS CO2 [Moles/Vol] 29 mmol/L Normal 22 - 29 mmol/L AO ADM SS Creatinine [Mass/Vol] 0.98 mg/dL Normal 0.70 - 1.30 mg/dL AO ADM SS Comment on above: Interpretive Data: T esting performed on Siemens Dimension EXL analyzer using a modified kinetic Saeed technique. Electrolyte Balance 10.0 mEq/L Normal 4.0 - 15 .0 mEq/L AO ADM SS Eosinophil, Absolute 0.1 103/mcL Normal 0.0 - 0.7 10^3/mcL AO Workflow SS Eosinophils/100 WBC (Bld) 1.0 % Normal 0.0 - 7.0 % AO Workflow SS Erythrocyte distribution width (RBC) [Ratio] 14.4 % Normal 11.5 - 15.5 % AO Workflow SS GFR/1.73 sq M.predicted among blacks MDRD (S/P/Bld) [Vol rate/Area] 99 ml/min/1.73sqm Invalid Interpretation Code AO Chemistry S Comment on above: Interpretive Data: GFR Population mean for , Non- Americans Ages 20-29 = 116 mL/min/1.73 sq.m. Ages 30-39 = 107 mL/min/1.73 sq.m. Ages 40-49 = 99 mL/min/1.73 sq.m. Ages 50-59 = 93 mL/min/1.73 sq.m. Ages 60-69 = 85 mL/min/1.73 sq.m. Ages 70+ = 75 mL/min/1.73 sq.m. Chronic Kidney Disease: Less than 60 mL/min/1.73 square meters End Stage Renal Disease: Less than 15 mL/min/1.73 square meters GFR/1.73 sq M.predicted among non-blacks MDRD (S/P/Bld) [Vol rate/Area] 82 ml/min/1.73sqm Invalid Interpretation Code AO Chemistry S Comment on above: Interpretive Data: GFR Population mean for , Non- Americans Ages 20-29 = 116 mL/min/1.73 sq.m. Ages 30-39 = 107 mL/min/1.73 sq.m. Ages 40-49 = 99 mL/min/1.73 sq.m. Ages 50-59 = 93 mL/min/1.73 sq.m. Ages 60-69 = 85 mL/min/1.73 sq.m. Ages 70+ = 75 mL/min/1.73 sq.m. Chronic Kidney Disease: Less than 60 mL/min/1.73 square meters End Stage Renal Disease: Less than 15 mL/min/1.73 square meters Globulin 2.4 G/dL Invalid Interpretation Code AO ADM SS Glucose [Mass/Vol] 77 mg/dL Normal 70 - 105 mg/dL AO ADM SS Hematocrit (Bld) [Volume fraction] 41.3 % Normal 40.0 - 52.0 % AO Workflow SS Hemoglobin (Bld) [Mass/Vol] 14.2 G/dL Normal 13.0 - 17.5 G/dL AO Workflow SS Lipase [Catalytic activity/Vol] 50 U/L Normal 16 - 77 U/L AO ADM SS Lymphocytes (Bld) [#/Vol] 1.9 103/mcL Normal 0.9 - 4.3 10^3/mcL AO Workflow SS Lymphocytes/100 WBC (Bld) 31.0 % Normal 20.0 - 40.0 % AO Workflow SS MCH (RBC) [Entitic mass] 31.2 pg Normal 27.0 - 33.0 pg AO Workflow SS MCHC 34.4 G/dL Normal 32.0 - 36.0 G/dL AO Workflow SS MCV (RBC) [Entitic vol] 90.7 fL Normal 81.0 - 100.0 fL AO Workflow SS Monocytes (Bld) [#/Vol] 0.5 103/mcL Normal 0.1 - 1.4 10^3/mcL AO Workflow SS Monocytes/100 WBC (Bld) 8.0 % Normal 2.0 - 13.0 % AO Workflow SS Neutrophils (Bld) [#/Vol] 3.6 103/mcL Normal 2.3 - 8.1 10^3/mcL AO Workflow SS Neutrophils/100 WBC (Bld) 59.4 % Normal 50.0 - 75.0 % AO Workflow SS Platelet mean volume (Bld) [Entitic vol] 8.2 fL Normal 6.4 - 10.5 fL AO Workflow SS Platelets (Bld) [#/Vol] 243 103/mcL Normal 150 - 450 10^3/mcL AO Workflow SS Potassium [Moles/Vol] 3.6 mmol/L Normal 3.5 - 5.1 mmol/L AO ADM SS Protein [Mass/Vol] 5.8 G/dL Low 6.4 - 8.2 G/dL AO ADM SS RBC (Bld) [#/Vol] 4.55 106/mcL Normal 4.50 - 6.0 0 10^6/mcL AO Workflow SS Sodium [Moles/Vol] 148 mmol/L High 136 - 145 mmol/L AO ADM SS Urea nitrogen [Mass/Vol] 4 mg/dL Low 7 - 18 mg/dL AO ADM SS Urea nitrogen/Creatinine [Mass ratio] 4 ratio Low 7 - 27 ratio AO ADM SS WBC (Bld) [#/Vol] 6.0 103/mcL Normal 4.5 - 10.8 10^3/mcL AO Workflow SS LIPon 05-03-2024 Lipase Level 50 U/L Normal 16-77 [facility] Comment on above: Performed By: #### A DIFF, LIP, WALTER, GFR, CBC, CMP, ANEU #### [facility] [address] [place], [place] [address] #### HP #### [place] [id number] [place] [id number] XR ABDOMEN 2 VIEWS W/ DECUB/ ERECTon 04-28-2024 XR ABDOMEN 2 VIEWS W/ DECUB/ERECT ORIGINAL EXAMINATION: TWO XRAY VIEWS OF THE ABDOMEN 04/27/2024 11:52 am COMPARISON: None. HISTORY: ORDERING SYSTEM PROVIDED HISTORY: Reason for Exam: eval for air/fluid levels, dilated intestinal loops, absence of gas in rectum FINDINGS: Nonspecific bowel gas pattern without evidence of obstruction. No abnormal calcifications. No acute osseous abnormality. IMPRESSION: No evidence of bowel obstruction. Interpreted by: Jason Verma DO Preliminary Report By: Jason Verma DO Electronically signed By Jason Verma DO Dictated Date: 04/28/2024 3:56:43 PM Prelim Date: 04/28/2024 3:57:25 PM Sign Date: 04/28/2024 3:57:25 PM Ordering Provider: ALLI Jenkins [facility] Ulices 04-21-2024 DEEPAN Telephone (ROBBY) TATE BALTAZAR ([id number]) 1975 Date Time Provider Department 04/21/24 KAPIL HICKS During your visit today, we recorded the following information about you: Rabia Rangel 04/21/2024 4:56 PM Signed [employer] No-Show Documentation Tate burger showed for an appointment on 04/21/2024 with Leeann Owens PA-C. at [facility]. The patient was was scheduled for a follow up appointment. I called and spoke with the patient regarding missed appointment. Yes The patient stated the reason that they missed the appointment was because forgot . Resources discussed/offered to patient: Yes No show determined to be fault of patient: Yes This is the patients first no show in the last 12 months. Patient was rescheduled for 07/01/2024. Letter mailed regular mail AND certified : Yes Reg mail only Is this the Third or Fourth No Show? No Rabia Claire April 21, 2024 4:09 PM Allergies As of Date: 04/21/2024 Noted Allergy Reaction HYDROCHLOROTHIAZIDE 05/18/2020 14 - Other: See Comments SULFAMETHOXAZOLE-TRIMETHOPRI M 03/26/2020 16 - Unknown 14 - Other: See Comments ACETAMINOPHEN 09/02/2022 14 - Other: See Comments Comments: Rebound headaches ACETAMINOPHEN-CODEINE 07/24/2021 16 - Unknown DOXYCYCLINE 05/13/2023 4 - Hives HYDROCODONE 09/25/2020 14 - Other: See Comments ORANGE JUICE 11/19/2021 16 - Unknown ORANGE OIL 08/07/2015 4 - Hives 14 - Other: See Comments PSEUDOEPHEDRINE 05/20/2021 16 - Unknown VICODIN (HYDROCODONE-ACETAMINOPHE* 1 - Mental Status Change 9 - Itching ARIPIPRAZOLE 02/22/2021 1 - Mental Status Change Date Reviewed: 04/20/2024 Reviewed by: Gustabo Melendez RN - Fully Assessed Reason for Visit: Missed Appointment [1304] Prescriptions as of 04/21/2024 - guaiFENesin-dextromethorphan (ROBITUSSIN DM) 100-10 mg/5 mL syrup Take 10 mL by mouth three times a day as needed. - ondansetron orally disintegrating (ZOFRAN ODT) 4 mg disintegrating tablet Take 1 tablet by mouth every 6 hours as needed for nausea/vomiting for up to 7 days. - fluticasone (FLONASE) 50 mcg/actuation nasal spray Use 1 Grant in each nostril two times a day for 14 days. Use before lying down for bed. - cyclobenzaprine (FLEXERIL) 5 mg tablet Take 1 tablet by mouth three times a day as needed. - gabapentin (NEURONTIN) 600 mg tablet Take 1 tablet by mouth three times a day for 30 days. - tiZANidine (ZANAFLEX) 4 mg tablet Take 1 tablet by mouth as directed. Take one in the afternoon and evening and take 2 tabs at bedtime. - atorvastatin (LIPITOR) 40 mg tablet 1 tablet by ORAL/FEEDING TUBE route daily at bedtime. - tamsulosin (FLOMAX) 0.4 mg Take 0.4 mg by mouth once daily. - lidocaine (LIDODERM) 5 % Apply 1 Patch as directed as directed. Apply 1 patch for 12 hours then remove for 12 hours - docusate sodium (COLACE) 100 mg capsule Take 1 capsule by mouth twice daily. - naloxone 4 mg/actuation nasal spray (NARCAN) Use 1 spray in one nostril as needed for overdose. May repeat every 2 to 3 min in alternating nostrils until medical assistance is available - verapamil ER (VERELAN) 240 mg 24 hr capsule Take 240 mg by mouth once daily. - buPROPion XL (WELLBUTRIN XL) 300 mg 24 hr tablet TAKE 1 TABLET BY MOUTH EVERY 24 HOURS. REPLACES PREVIOUS PRESCRIPTION FOR BUPROPION 150 MG TABLET - valsartan (DIOVAN) 160 mg tablet Take 160 mg by mouth every morning. - cetirizine (ZYRTEC) 10 mg tablet Take 10 mg by mouth once daily. - AJOVY SYRINGE 225 mg/1.5 mL syringe - pantoprazole DR (PROTONIX) 40 mg tablet Take 40 mg by mouth twice daily. - potassium chloride ER (K-DUR, KLOR-CON) 20 mEq tablet Take 20 mEq by mouth twice daily. - NURTEC ODT 75 mg disintegrating tablet Problem List As Of Date 04/21/2024 Noted Resolved Pilonidal cyst with abscess [L05.01] 06/06/2010 Epigastric pain [R10.13] 09/27/2015 10/23/2017 Essential hypertension [I10] 10/01/2015 Depression [F32.A] 10/01/2015 Reflex sympathetic dystrophy [G90.50] 10/01/2015 Encounter for sterilization [Z30.2] 04/21/2016 Nontraumatic subcortical hemorrhage of left cer*10/19/2017 Dysphagia due to recent stroke [I69.391] 10/20/2017 Acute right hemiparesis (HCC) [G81.91] 10/20/2017 TSH deficiency [E03.8] 10/20/2017 Cerebral edema (HCC) [G93.6] 10/20/2017 10/23/2017 Migraine without aura [G43.009] 10/21/2017 Arthropathy of lumbar facet joint [M47.816] 07/10/2020 Radiculopathy, lumbar region [M54.16] 03/26/2020 History of CVA (cerebrovascular accident) [Z86.*11/19/2021 Chronic low back pain [M54.50, G89.29] 11/19/2021 DDD (degenerative disc disease), lumbar [M51.36*03/26/2020 Gastroesophageal reflux disease with esophagiti*11/19/2021 Generalized osteoarthritis [M15.9] 03/26/2020 Hypercalcemia [E83.52] 11/19/2021 Intractable chronic migraine without aura [G43.*03/07/2020 Os (more content not included)... [facility] ED NOTEon 04-20-2024 ED NOTE HNO ID: [id number] Author: THIERNO ESQUIVEL RN Service: ? Author Type: Registered Nurse Type: ED Notes Filed: 04/21/2024 14:21 Note Text: Patient Call Back Information How are you doing ? no change Did we appropriately manage your pain? Yes Did you understand your discharge instructions? Yes Did you get your prescriptions filled? Were you able to make a follow-up appointment with your physician? No Were you comfortable during your stay here? Yes Did a member of the ER nursing team round on you during your visit? Yes You will receive a patient satisfaction survey in the mail in the nest 2 weeks, please take the time to fill out the survey as your input from your ER visit is very important to us. Yes Can we do anything else to help you? No [facility] ED NOTE HNO ID: [id number] Author: GUSTABO MELENDEZ RN Service: Emergency Medicine Author Type: Registered Nurse Type: ED Notes Filed: 04/20/2024 16:32 Note Text: Nausea better. Oral hydration provided. Able to keep fluids down. [facility] ED NOTE HNO ID: [id number] Author: GUSTABO MELENDEZ, CLEM Service: Emergency Medicine Author Type: Registered Nurse Type: ED Notes Filed: 04/20/2024 13:51 Note Text: Pt c/o nausea and vomiting since Thursday. States pain with vomiting. States had fever off and on. [place]vina, warm, dry. No apparent distress. Alert and oriented. Normal [facility] ED PROV NOTEon 04-20-2024 ED PROV NOTE HNO ID: [id number] Author: KAIN LEE MD Service: Emergency Medicine Author Type: Physician Type: ED Provider Notes Filed: 04/20/2024 16:44 Note Text: ED Provider Note Patient Name: Tate Baltazar : 1975 SERVICE DATE: 04/20/24 History Patient presents with: Fever Nausea AND Vomiting Patient is a 49-year-old male with a past medical history significant for dysphagia, stroke, hypertension, sleep apnea, and depression with migraine headaches who presents to the emergency department for evaluation for fevers and chills with nausea and vomiting. Associates dry heaving with cough. Denies sick contacts. Patient states has been having lower abdominal pain, with fevers and chills. States symptoms have been present for the last few days. Denies hematemesis, hematochezia. Patient states symptoms are also accompanied by a cough. He states he has been fighting a sinus infection without much improvement. He denies shortness of breath or chest pain. History provided by: Patient beater and pulper feeder used: No 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 Stroke due to intracerebral hemorrhage (HCC) 2018 Had an additional stroke at age 25 PAST SURGICAL HISTORY Procedure Laterality Date APPENDECTOMY CARPAL TUNNEL Left 2014 COLONOSCOPY 22's with EGD EGD TRANSORAL BIOPSY SINGLE/MULTIPLE 10/02/2015 EXCISION PILONIDAL CYST/SINUS EXTENSIVE 07/05/2010 closed ORTHOPEDICS SURGERY HX Right 12/2022 Right ROTATOR cUFF PAST SURGICAL HISTORY OF right knee surgery TONSILLECTOMY PRIMARY/SECONDARY Tonsillectomy VASECTOMY UNI/BI SPX W/POSTOP SEMEN EXAMS Bilateral 05/23/2016 FAMILY HISTORY Problem Relation Age of Onset Prostate Cancer Father Hypertension Father Social History Tobacco Use Smoking status: Never Passive exposure: Never Smokeless tobacco: Never Vaping Use Vaping status: Never Used Substance and Sexual Activity Alcohol use: Yes Comment: OCCASIONAL Drug use: No Sexual activity: Never ALLERGIES Allergen Reactions Hydrochlorothiazide Other: See Comments Sulfamethoxazole-Tr* Unknown, Other: See Comments Acetaminophen Other: See Comments Rebound headaches Acetaminophen-Codei* Unknown Doxycycline Hives Hydrocodone Other: See Comments Kihei Juice Unknown Kihei Oil Hives, Other: See Comments Pseudoephedrine Unknown Vicodin [Hydrocodon* Mental Status Change, Itching Aripiprazole Mental Status Change Review of Systems Constitutional: Positive for chills, fatigue and fever. HENT: Positive for congestion and sinus pressure. Negative for ear discharge, ear pain, mouth sores, rhinorrhea, sneezing, sore throat and tinnitus. Eyes: Negative for photophobia, discharge, itching and visual disturbance. Respiratory: Positive for cough. Negative for shortness of breath, wheezing and stridor. Cardiovascular: Negative for chest pain, palpitations and leg swelling. Gastrointestinal: Positive for abdominal pain, nausea and vomiting. Negative for abdominal distention, blood in stool, constipation and diarrhea. Endocrine: Negative for cold intolerance and heat intolerance. Genitourinary: Negative for dysuria, flank pain, frequency and hematuria. Musculoskeletal: Negative for back pain, gait problem and joint swelling. Skin: Negative for color change, pallor and rash. Neurological: Negative for dizziness, syncope, weakness, light-headedness and headaches. Psychiatric/Behavioral: Negative for confusion, hallucinations, sleep disturbance and suicidal ideas. Physical Exam Vitals [04/20/24 1348] BP Pulse Temp Temp src Resp SpO2 Weight Height (!) 138/112 (!) 100 36.1 ?C (97 ?F) Temporal 16 98 % 111.1 kg (245 lb) -- Physical Exam Vitals and nursing note reviewed. Constitutional: General: He is not in acute distress. Appearance: He is not ill-appearing. HENT: Head: Normocephalic and atraumatic. Right Ear: External ear normal. Left Ear: External ear normal. Nose: Congestion present. No rhinorrhea. Right Sinus: Maxillary sinus tenderness present. Left Sinus: Maxillary sinus tenderness present. Mouth/Throat: Mouth: Mucous membranes are moist. Pharynx: Oropharynx is clear. Eyes: General: Right eye: No discharge. Left eye: No discharge. Pupils: Pupils are equal, round, and reactive to light. Neck: Trachea: No tracheal deviation. Cardiovascular: Rate and Rhythm: Normal rate and regular rhythm. Heart sounds: Normal heart sounds. Pulmonary: Effort: No respiratory distress. Breath sounds: No stridor. Rhonchi present. No wheezing or rales. Chest: Chest wall: No tenderness. Abdominal: General: There is no distension. Palp (more content not included)... Normal [facility] XR CHEST 2V FRONTAL/LATon XR CHEST 2V FRONTAL/LAT * * *Final Report* * * DATE OF EXAM: Apr 20 2024 3:34PM LDX 5291 - XR CHEST 2V FRONTAL/LAT / PROCEDURE REASON: Chest Pain * * * * Physician Interpretation * * * * EXAMINATION: CHEST RADIOGRAPH (2 VIEW FRONTAL and LATERAL) CLINICAL HISTORY: Chest Pain, Cough MQ: [id number]_6 EXAM DATE/TIME: 04/20/2024 3:34 PM COMPARISON: Chest radiograph 12/04/2023. RESULT: Lines, tubes, and devices: None. Lungs and pleura: No consolidation. No lung mass. No pleural effusion. No pneumothorax. Cardiomediastinal silhouette: Normal cardiomediastinal silhouette. Bones and soft tissues: Degenerative changes are present within the thoracic spine. IMPRESSION: No acute radiographic abnormality. Wafer Cleaner: LALA Transcribe Date/Time: Apr 20 2024 3:38P Dictated by : ERIC GORMAN MD This examination was interpreted and the report reviewed and electronically signed by: ERIC GORMAN MD on Apr 20 2024 3:38PM EST [id number] [facility] 36on 04-12-2024 36 GI staff to contact pt for scheduling. [facility] 36 ----- Message from THANG Brooks CNP sent at 03/15/2024 10:11 AM EDT ----- Please schedule patient for [facility] location. Thank you. [facility] Orthopedic Visit Reporton Orthopedic Visit Report [facility] [address] [place] [address] OFFICE VISIT Date of Service: 04/11/24 MR#: [id number] Acct: [id number] Name: TATE BALTAZAR Rep #: [id number] : 1975 Provider: Dr. Fred alanis MD Age/Sex: 49/M Location: [facility] Status: Signed Intake Vital Signs 02/29/24 09:44 Height 6 ft Intake Visit Reasons: RIGHT KNEE Accompanied by: Self Allergies hydrocodone (From Vicodin) Adverse Reaction (Verified 04/11/24 10:13) Other Medications ???Medication ???Instructions ???Recorded ???Confirmed ???Type pantoprazole 40 mg tablet,delayed 40 mg PO DAILY 09/18/20 04/11/24 History release tizanidine 4 mg capsule 8 mg PO QHS 09/18/20 04/11/24 History bupropion HCl 300 mg 24 hr tablet, 300 mg PO QDAY 02/29/24 04/11/24 History extended release cyclobenzaprine 5 mg tablet 5 mg PO TID PRN 02/29/24 04/11/24 History duloxetine 60 mg capsule,delayed 60 mg PO QDAY 02/29/24 04/11/24 History release fexofenadine 180 mg tablet 180 mg PO QDAY 02/29/24 04/11/24 History gabapentin 100 mg tablet 600 mg PO TID 02/29/24 04/11/24 History lidocaine 5 % topical patch 1 patch topical QDAY 02/29/24 04/11/24 History mirabegron 25 mg tablet,extended 25 mg PO QDAY 02/29/24 04/11/24 History release 24 hr (Myrbetriq) potassium chloride 20 mEq 40 meq PO DAILY 02/29/24 04/11/24 History tablet,extended release potassium chloride 20 mEq 20 meq PO BID 02/29/24 04/11/24 History tablet,extended release(part/cryst) rimegepant 75 mg disintegrating 75 mg PO QDAY PRN 02/29/24 04/11/24 History tablet (Nurtec ODT) sucralfate 1 gram tablet 1 g PO 4X/DAY 02/29/24 04/11/24 History tamsulosin 0.4 mg capsule 0.4 mg PO QDAY 02/29/24 04/11/24 History valsartan 160 mg tablet 160 mg PO QDAY 02/29/24 04/11/24 History verapamil 120 mg tablet,extended 240 mg PO QHS 02/29/24 04/11/24 History release zonisamide 50 mg capsule 50 mg PO QHS 02/29/24 04/11/24 History PFSH Medical History Osteoarthritis of right knee Right knee pain Loose, teeth Hearing loss, right Alcohol abuse Mood disorder History of steroid therapy Chronic pain History of IBS GERD (gastroesophageal reflux disease) Hiatal hernia Non-smoker CPAP (continuous positive airway pressure) dependence Pain aggravated by walking Edema Irregular heart beat Hypertension Migraine headache Restless legs Injury of back Stroke/cerebrovascular accident Surgical History Hx of cardiac catheterization Hx of colonoscopy History of esophagogastroduodenoscopy (EGD) Hx of vasectomy Hx of arthroscopic knee surgery Hx of tonsillectomy Hx of appendectomy Hx of shoulder surgery Social History household members: spouse and family Smoking Status: Former smoker alcohol intake: current alcohol intake frequency: holidays/special occasions only HPI RIGHT KNEE Details: This documentation accurately reflects the service provided and the decisions made by me, Dr. Fred Huber MD 04/11/24 0931. Part of today???s visit was documented by [ ], acting as scribe. TATE BALTAZAR is a 49 year old M here today for right knee patellofemoral osteoarthritis here for Euflexxa injection 2 of 3. missed the last appointment, no concerns today. Office Procedures Euflexxa Procedure Details:: Obtained consent for injection. Under sterile conditions, injected the patients right knee with 20mg/2mL of Euflexxa. The patient tolerated the injection well without any noted complication. Patient should call our office if redness develops, pain worsens or if they have any concerns. Is this Buy Bill?: Yes Office Meds Euflexxa 10 mg/mL (mw 2.4-3.6 million) intra-articular syringe Performing Provider: Fred Huber MD Performing Location: [facility] Administered by: Fred Huber MD on 04/11/24 10:16 Dose Route Admin Location Dispensed Lot Number Expiration Date [employer] ufacturer 20 mg intra-articular right knee 2 mL [id number] 04/09/25 [address]-9 [employer] Coding Level of Care Code Attention Nathan Diagnoses Osteoarthritis of right knee M17.11 Comment right knee Euflexxa injection 2 of 3 Assessment and Plan Assessment and Plan (1) Osteoarthritis of right knee: Status: Acute Plan: 49 year old M here today for right knee patellofemoral osteoarthritis here for Euflexxa injection 2 of 3. FU 1 week for second. Right knee intra-articular Euflexxa injection We discussed the pros and cons risks and benefits of going ahead with right knee intra-articular Euflexxa injection. The risks include but are not limited to infectio (more content not included)... Normal [facility] 36on 03-29-2024 36 Noted, thank you. Prior EGD and colonoscopy 07/25/2020 ()-LA Grade B esophagitis, 4 cm HH. Normal colonoscopy. Normal [facility] Orthopedic Visit Reporton Orthopedic Visit Report [facility] [place] [address] OFFICE VISIT Date of Service: 03/29/24 MR#: [id number] Acct: [id number] Name: TATE BALTAZAR Rep #: [id number] : 1975 Provider: Dr. Fred alanis MD Age/Sex: 49/M Location: [facility] Status: Signed Intake Vital Signs 02/29/24 09:44 Height 6 ft Weight: 252 lb 6 oz BMI 34.2 Intake Visit Reasons: RIGHT KNEE Accompanied by: Other Family Is patient in pain?: No Allergies hydrocodone (From Vicodin) Adverse Reaction (Verified 03/29/24 10:25) Other Medications ???Medication ???Instructions ???Recorded ???Confirmed ???Type pantoprazole 40 mg tablet,delayed 40 mg PO DAILY 09/18/20 03/29/24 History release tizanidine 4 mg capsule 8 mg PO QHS 09/18/20 03/29/24 History bupropion HCl 300 mg 24 hr tablet, 300 mg PO QDAY 02/29/24 03/29/24 History extended release cyclobenzaprine 5 mg tablet 5 mg PO TID PRN 02/29/24 03/29/24 History duloxetine 60 mg capsule,delayed 60 mg PO QDAY 02/29/24 03/29/24 History release fexofenadine 180 mg tablet 180 mg PO QDAY 02/29/24 03/29/24 History gabapentin 100 mg tablet 600 mg PO TID 02/29/24 03/29/24 History lidocaine 5 % topical patch 1 patch topical QDAY 02/29/24 03/29/24 History mirabegron 25 mg tablet,extended 25 mg PO QDAY 02/29/24 03/29/24 History release 24 hr (Myrbetriq) potassium chloride 20 mEq 40 meq PO DAILY 02/29/24 03/29/24 History tablet,extended release potassium chloride 20 mEq 20 meq PO BID 02/29/24 03/29/24 History tablet,extended release(part/cryst) rimegepant 75 mg disintegrating 75 mg PO QDAY PRN 02/29/24 03/29/24 History tablet (Nurtec ODT) sucralfate 1 gram tablet 1 g PO 4X/DAY 02/29/24 03/29/24 History tamsulosin 0.4 mg capsule 0.4 mg PO QDAY 02/29/24 03/29/24 History valsartan 160 mg tablet 160 mg PO QDAY 02/29/24 03/29/24 History verapamil 120 mg tablet,extended 240 mg PO QHS 02/29/24 03/29/24 History release zonisamide 50 mg capsule 50 mg PO QHS 02/29/24 03/29/24 History PFSH Medical History Osteoarthritis of right knee Right knee pain Loose, teeth Hearing loss, right Alcohol abuse Mood disorder History of steroid therapy Chronic pain History of IBS GERD (gastroesophageal reflux disease) Hiatal hernia Non-smoker CPAP (continuous positive airway pressure) dependence Pain aggravated by walking Edema Irregular heart beat Hypertension Migraine headache Restless legs Injury of back Stroke/cerebrovascular accident Surgical History Hx of cardiac catheterization Hx of colonoscopy History of esophagogastroduodenoscopy (EGD) Hx of vasectomy Hx of arthroscopic knee surgery Hx of tonsillectomy Hx of appendectomy Hx of shoulder surgery Social History household members: spouse and family Smoking Status: Former smoker alcohol intake: current alcohol intake frequency: holidays/special occasions only HPI RIGHT KNEE Details: This documentation accurately reflects the service provided and the decisions made by me, Dr. Fred Huber MD 03/29/24 1020. Part of today???s visit was documented by [ ], acting as scribe. TATE BALTAZAR is a 49 year old M here today for right knee patellofemoral osteoarthritis here for Euflexxa injection 1 of 3 Ortho Exam General General: Yes no acute distress Neurologic: Yes alert and Yes oriented x3 Psychologic: Yes reasonable and appropriate Right Knee Skin/Wound: Yes CDI, No erythema, No ecchymosis and No swelling Office Procedures Euflexxa Procedure Details:: Obtained consent for injection. Under sterile conditions, injected the patients Right knee with 2ml Euflexxa 1st injection . The patient tolerated the injection well without any noted complication. Patient should call our office if redness develops, pain worsens or if they have any concerns. Is this Buy Bill?: Yes Office Meds Euflexxa 10 mg/mL (mw 2.4-3.6 million) intra-articular syringe Performing Provider: Fred Huber MD Performing Location: [facility] Administered by: Fred Huber MD on 03/29/24 10:31 Dose Route Admin Location Dispensed Lot Number Expiration Date [facility] ufacturer 20 mg intra-articular Right knee 2 mL [id number] 04/09/25 [address]-7 [employer] Coding Level of Care Code Attention Nathan Diagnoses Osteoarthritis of right knee M17.11 Right knee pain M25.561 Comment Right knee intra-articular Euflexxa injection Assessment and Plan Assessment and Plan (1) Osteoarthritis of right knee: Status: Acute Plan: TATE BALTAZAR is a 49 year old M here today for rig (more content not included)... [facility] 36on 03-25-2024 36 Received faxed recor ds from [facility] and scanned into media. Thanks [facility] Orthopedic Visit Reporton Orthopedic Visit Report [facility] [address] [place] [address] OFFICE VISIT Date of Service: 03/22/24 MR#: [id number] Acct: [id number] Name: TATE BALTAZAR Rep #: [id number] : 1975 Provider: Dr. Fred alanis MD Age/Sex: 49/M Location: [facility] Status: Signed Intake Vital Signs 02/29/24 09:44 Height 6 ft Weight: 252 lb 6 oz BMI 34.2 Intake Visit Reasons: RIGHT KNEE Chief Complaint: MRI f/u right knee pain Accompanied by: Self Is patient in pain?: Yes (right knee) Pain scale (1-10): 6 Allergies hydrocodone (From Vicodin) Adverse Reaction (Verified 03/22/24 11:12) Other Medications ???Medication ???Instructions ???Recorded ???Confirmed ???Type pantoprazole 40 mg tablet,delayed 40 mg PO DAILY 09/18/20 03/22/24 History release tizanidine 4 mg capsule 8 mg PO QHS 09/18/20 03/22/24 History bupropion HCl 300 mg 24 hr tablet, 300 mg PO QDAY 02/29/24 03/22/24 History extended release cyclobenzaprine 5 mg tablet 5 mg PO TID PRN 02/29/24 03/22/24 History duloxetine 60 mg capsule,delayed 60 mg PO QDAY 02/29/24 03/22/24 History release fexofenadine 180 mg tablet 180 mg PO QDAY 02/29/24 03/22/24 History gabapentin 100 mg tablet 600 mg PO TID 02/29/24 03/22/24 History lidocaine 5 % topical patch 1 patch topical QDAY 02/29/24 03/22/24 History mirabegron 25 mg tablet,extended 25 mg PO QDAY 02/29/24 03/22/24 History release 24 hr (Myrbetriq) potassium chloride 20 mEq 40 meq PO DAILY 02/29/24 03/22/24 History tablet,extended release potassium chloride 20 mEq 20 meq PO BID 02/29/24 03/22/24 History tablet,extended release(part/cryst) rimegepant 75 mg disintegrating 75 mg PO QDAY PRN 02/29/24 03/22/24 History tablet (Nurtec ODT) sucralfate 1 gram tablet 1 g PO 4X/DAY 02/29/24 03/22/24 History tamsulosin 0.4 mg capsule 0.4 mg PO QDAY 02/29/24 03/22/24 History valsartan 160 mg tablet 160 mg PO QDAY 02/29/24 03/22/24 History verapamil 120 mg tablet,extended 240 mg PO QHS 02/29/24 03/22/24 History release zonisamide 50 mg capsule 50 mg PO QHS 02/29/24 03/22/24 History PFSH Medical History Osteoarthritis of right knee Right knee pain Loose, teeth Hearing loss, right Alcohol abuse Mood disorder History of steroid therapy Chronic pain History of IBS GERD (gastroesophageal reflux disease) Hiatal hernia Non-smoker CPAP (continuous positive airway pressure) dependence Pain aggravated by walking Edema Irregular heart beat Hypertension Migraine headache Restless legs Injury of back Stroke/cerebrovascular accident Surgical History Hx of cardiac catheterization Hx of colonoscopy History of esophagogastroduodenoscopy (EGD) Hx of vasectomy Hx of arthroscopic knee surgery Hx of tonsillectomy Hx of appendectomy Hx of shoulder surgery Social History household members: spouse and family Smoking Status: Former smoker alcohol intake: current alcohol intake frequency: holidays/special occasions only HPI RIGHT KNEE Details: This documentation accurately reflects the service provided and the decisions made by me, Dr. Fred Huber MD 03/22/24 1110. Part of today???s visit was documented by [ ], acting as scribe. TATE BALTAZAR is a 49 year old M here today for follow-up right knee MRI.no changes, still painful, giving way Ortho Exam General General: Yes no acute distress Neurologic: Yes alert and Yes oriented x3 Psychologic: Yes reasonable and appropriate Right Knee Skin/Wound: Yes CDI, No erythema, No ecchymosis and No swelling Supplemental Info [facility] Imaging Services [address] [place] [address] Lower Ext Joint Only (Routine) MR#: [id number] Acct: [id number] Name: TATE BALTAZAR Rep #: [id number] : 1975 M 49 From: [facility] PCP: Dr. Lanette Harkins, DO Status: REG CLI Study: Lower Ext Joint Only (Routine) Date of Exam: 03/19/24 Exam# [id number] Ordering Dr: Fred Huber MD :[id number] EXAM: MR RIGHT LOWER EXTREMITY WITHOUT INTRAVENOUS CONTRAST, KNEE CLINICAL INDICATION: pain TECHNIQUE: Multiplanar and multisequence MR images of the right knee without intravenous contrast. COMPARISON: Right knee radiographs, 02/29/2024. FINDINGS: BONES/JOINTS: Shallow trochlea indicating trochlear dysplasia. No bone marrow signal abnormality is otherwise identified. No fracture or dislocation. EXTEN (more content not included)... Normal [facility] Lower Ext Joint Only (Routin e)on 03-19-2024 Lower Ext Joint Only (Routine) [facility] [address] [place] [address] Lower Ext Joint Only (Routine) MR#: [id number] Acct: [id number] Name: TATE BALTAZAR Rep #: [id number] : 1975 M 49 From: [facility] PCP: Dr. Lanette Harkins, DO Status: REG CLI Study: Lower Ext Joint Only (Routine) Date of Exam: 05/19/23 Exam# [id number] Ordering Dr: Fred Huber MD :[id number] EXAM: MR RIGHT LOWER EXTREMITY WITHOUT INTRAVENOUS CONTRAST, KNEE CLINICAL INDICATION: pain TECHNIQUE: Multiplanar and multisequence MR images of the right knee without intravenous contrast. COMPARISON: Right knee radiographs, 02/29/2024. FINDINGS: BONES/JOINTS: Shallow trochlea indicating trochlear dysplasia. No bone marrow signal abnormality is otherwise identified. No fracture or dislocation. EXTENSOR MECHANISM: No significant abnormality. MEDIAL MENISCUS: No significant abnormality. LATERAL MENISCUS: No significant abnormality. MEDIAL CAPSULE/SUPPORTING STRUCTURES: No significant abnormality. Intact. LATERAL CAPSULE/SUPPORTING STRUCTURES: No significant abnormality. Lateral collateral ligamentous complex, inclusive of the popliteal tendon, are intact. ANTERIOR CRUCIATE LIGAMENT: No significant abnormality. Intact. POSTERIOR CRUCIATE LIGAMENT: No significant abnormality. Intact. MUSCLES: No significant abnormality. CARTILAGE: Near full-thickness chondral fissuring in the lateral retropatellar articular facet with diffuse chondral signal abnormality and subchondral edema. FLUID: No significant abnormality. No joint effusion. OTHER SOFT TISSUES: No significant abnormality. No popliteal cyst. 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 Electronically Signed: Mateo Canada DO at 13:58 EST , CC: Dr. Lanette Harkins DO; Dr. Fred Huber MD Wafer Cleaner: Signed Normal [facility] 37on 03-15-2024 37 --Please call office with any questions or concerns! [phone] --request prior EGD and colonoscopy report from [facility] --Schedule EGD (upper endoscopy)-Rosi. --continue pantoprazole and Carafate --Avoid nonsteroidal anti-inflammatory (NSAID) medications such as ibuprofen (Advil), naproxen (Aleve), etc. These can contribute to abdominal pain and ulcers. Take Tylenol (acetaminophen) instead if needed for pain by following the instructions on the bottle. --Please see handout provided regarding additional recommendations for the symptoms including when to seek emergency care or further treatment. --Follow-up with PCP, and in GI clinic in about 2-3 months following the above evaluation and recommendations. Normal [facility] Office Visiton 03-15-2024 Follow-up visit [id number] Baltazar,Tim [facility] 1975 M Date Provider Department Center 03/15/2024 [id number] [facility] None Family History Problem Relation Age of Onset Thyroid disease Mother Prostate cancer Father Family Status - Relation Status Age at Mother Father Level of Service:34361 AL OFFICE/OUTPATIENT NEW MODERATE MDM 45 MINUTES Reason for Visit and Comments: New Patient [542] Abdominal Pain [105301] Normal [facility] Progress Noteon 03-15-2024 Progress Note [facility] [place] [address] [facility] [address] Dept: [phone] Dept Loc: [phone] Visit type: New Reason for Visit: New Patient and Abdominal Pain Assessment and Plan Problem List Items Addressed This Visit None Visit Diagnoses Nausea and vomiting, unspecified vomiting type - Primary Epigastric pain --schedule EGD for further evaluation of epigastric pain, n/v ongoing 6+ months; symptoms without improvement with max dose PPI + Carafate; 2 related ED visits 08/2023; CT A/P without acute process --continue symptomatic treatment as prescribed by PCP while awaiting procedure --request prior EGD/colonoscopy report from [facility] --may consider GES pending results of EGD --patient declined colonoscopy for colon cancer screening --EDU printed Advised patient to call office with new or worsening symptoms, questions, or concerns. Patient verbalized understanding and agreement of plan. Follow up in about 3 months (around 06/15/2024), or if symptoms worsen or fail to improve. Subjective Abdominal Pain Pertinent negatives include no constipation, diarrhea, nausea or vomiting. Patient is referred by Dr. Harkins (12/04/2023), re: epigastric pain and nausea refractory to PPI therapy. Patient has pmh HTN, GERD, JANNETTE on CPAP, chronic right shoulder pain, myofascial pain syndrome, lumbar radiculopathy, stroke X 2-ICH 10/2017 Patient reports feeling sick to his stomach, ongoing for 6+ months. This is made worse by eating, has associated vomiting. Has associated epigastric pain-pain so intense it makes him not want to eat. Has been taking pantoprazole 40 mg BID and Carafate 1g QID without improvement. No weight-loss, has had some weight-gain. He had ED visit related to abdominal pain 09/10/23 and 09/12/2023. 09/10/2023-CT A/P without acute process. Bowel habits are irregular-alternates diarrhea and constipation. If he takes fiber supplement, notes he is much more regular. Denies hematochezia and melena. Prior abdominal surgeries: appendectomy Prior EGD and colonoscopy at [facility]-unsure time, before 2005. Reports history of ulcers. No NSAIDs. Hx alcohol abuse; currently rare EtOH use, once every few months. Has sleep apnea, does not wear CPAP. No anticoagulants or supplemental oxygen use. No family hx colon cancer. Review of Systems Constitutional: Negative for appetite change and unexpected weight change. HENT: Negative for trouble swallowing and voice change. Respiratory: Negative for shortness of breath. Cardiovascular: Negative for chest pain. Gastrointestinal: Positive for abdominal pain. Negative for abdominal distention, anal bleeding, blood in stool, constipation, diarrhea, nausea, rectal pain and vomiting. Genitourinary: Negative for difficulty urinating. Skin: Negative for color change. Neurological: Negative for weakness. Allergies Allergen Reactions Sulfamethoxazole-Trimethopri m Other Reaction(s): Other (See Comments), Other: See Comments, Unknown Hydrocodone-Acetaminophen Itching Other Reaction(s): Mental Status Change Pseudoephedrine Other Reaction(s): Unknown Outpatient Medications Prior to Visit Medication Sig Dispense Refill buPROPion XL (Wellbutrin XL) 300 MG 24 hr tablet Take 1 tablet by mouth daily. cyclobenzaprine (Flexeril) 5 MG tablet Take 5 mg by mouth 3 times daily as needed. DULoxetine (Cymbalta) [address] capsule Take 60 mg by mouth. fexofenadine (Kimberly) 180 MG tablet Take 180 mg by mouth daily. gabapentin (Neurontin) 600 MG tablet Take 600 mg by mouth 3 times daily. Myrbetriq 25 MG 24 hr tablet Take 1 tablet by mouth daily. Nurtec 75 MG tablet dispersible take 1 tablet by oral route as needed for migraine; limit 1 per 24 hours pantoprazole (ProtoNix) 40 MG EC tablet Take 1 tablet by mouth 2 times daily. potassium chloride CR (K-Tab) 20 MEQ ER tablet Take 20 mEq by mouth daily. sucralfate (Carafate) 1 g tablet TAKE 1 TABLET BY MOUTH FOUR TIMES DAILY FOR 30 DAYS tamsulosin (Flomax) 0.4 MG 24 hr capsule TAKE 1 CAPSULE BY MOUTH ONCE DAILY 30 MINUTES after the same meal each day tiZANidine (Zanaflex) 4 MG tablet TAKE 1 TABLET BY MOUTH EVERY afternoon, TAKE 1 TABLET BY MOUTH IN THE EVENING and TAKE 2 TABLETS BY MOUTH AT BEDTIME valsartan (Diovan) 160 MG tablet Take 1 tablet by mouth daily. verapamil ER (Verelan) 240 MG 24 hr capsule Take 1 capsule by mouth daily. zonisamide (Zonegran) 50 MG capsule TAKE 1 CAPSULE BY MOUTH EVERY DAY AT BEDTIME gabapentin (Neurontin) 600 MG tablet Take 600 mg by mouth in the morning and 600 mg at noon and 600 mg in the evening. (Patient not taking: Reported on 03/15/2024) No facility-administered medications prior to visit. There are no active problems to display for this patient. Social History Tobacco Use Smoking status: Never Smokeless tobacco: Never Substance Use Topics (more content not included)... Normal [facility] Knee 4 or More Viewson 02-28 Knee 4 or More Views [facility] Radiology [address] [place] [address] Knee 4 or More Views MR#: [id number] Acct: [id number] Name: TATE BALTAZAR Rep #: [id number] : 1975 M 49 From: Segun Flores MD PCP: Dr. Lanette Harkins, DO Status: DEP AMB Study: Knee 4 or More Views Date of Exam: 02/29/24 Exam# [id number] Ordering Dr: Fred Huber MD :[id number] STUDY: X-RAY - RIGHT KNEE REASON FOR EXAM: Male, 49 years old. Pain. TECHNIQUE: 4 views of the right knee. COMPARISON: Right knee radiographs dated 12/26/2020. FINDINGS: Normal visualized distal femur. Normal visualized proximal tibia and fibula. Normal proximal tibiofibular articulation. There is no demonstrated fracture. Normal medial femorotibial compartment. Normal lateral femorotibial compartment. Normal patellofemoral articulation. There is no demonstrated joint effusion. The soft tissue structures are unremarkable. RAD/Knee 4 or More Views IMPRESSION: Unremarkable x-ray examination of the right knee. Electronically Signed: Segun Flores MD at 15:44 EDT Reading Location ID and State: [facility] / [place] , Service support , CC: Dr. Lanette Harkins DO; Dr. Fred Huber MD Wafer Cleaner: Signed Normal [facility] Orthopedic Visit Reporton Orthopedic Visit Report [facility] [address] [place] [address] [address] [place] [address] OFFICE VISIT Date of Service: 02/29/24 MR#: [id number] Acct: [id number] Name: TATE BALTAZAR Rep #: [id number] : 1975 Provider: Dr. Fred alanis MD Age/Sex: 49/M Location: [facility] Status: Signed Intake Vital Signs 09/25/20 12:06 02/29/24 09:44 Height 6 ft 6 ft Weight: 252 lb 6 oz BMI 34.2 Intake Visit Reasons: RIGHT KNEE Accompanied by: Self Is patient in pain?: Yes Pain scale (1-10): 7 Allergies hydrocodone (From Vicodin) Adverse Reaction (Verified 02/29/24 09:47) Other Medications ???Medication ???Instructions ???Recorded ???Confirmed ???Type pantoprazole 40 mg tablet,delayed 40 mg PO DAILY 09/18/20 02/29/24 History release tizanidine 4 mg capsule 8 mg PO QHS 09/18/20 02/29/24 History bupropion HCl 300 mg 24 hr tablet, 300 mg PO QDAY 02/29/24 02/29/24 History extended release cyclobenzaprine 5 mg tablet 5 mg PO TID PRN 02/29/24 02/29/24 History duloxetine 60 mg capsule,delayed 60 mg PO QDAY 02/29/24 02/29/24 History release fexofenadine 180 mg tablet 180 mg PO QDAY 02/29/24 02/29/24 History gabapentin 100 mg tablet 600 mg PO TID 02/29/24 02/29/24 History lidocaine 5 % topical patch 1 patch topical QDAY 02/29/24 02/29/24 History mirabegron 25 mg tablet,extended 25 mg PO QDAY 02/29/24 02/29/24 History release 24 hr (Myrbetriq) potassium chloride 20 mEq 40 meq PO DAILY 02/29/24 02/29/24 History tablet,extended release potassium chloride 20 mEq 20 meq PO BID 02/29/24 02/29/24 History tablet,extended release(part/cryst) rimegepant 75 mg disintegrating 75 mg PO QDAY PRN 02/29/24 02/29/24 History tablet (Nurtec ODT) sucralfate 1 gram tablet 1 g PO 4X/DAY 02/29/24 02/29/24 History tamsulosin 0.4 mg capsule 0.4 mg PO QDAY 02/29/24 02/29/24 History valsartan 160 mg tablet 160 mg PO QDAY 02/29/24 02/29/24 History verapamil 120 mg tablet,extended 240 mg PO QHS 02/29/24 02/29/24 History release zonisamide 50 mg capsule 50 mg PO QHS 02/29/24 02/29/24 History PFSH Medical History (Updated 02/29/24 @ 10:35 by Fred Huber MD) Osteoarthritis of right knee Right knee pain Loose, teeth Hearing loss, right Alcohol abuse Mood disorder History of steroid therapy Chronic pain History of IBS GERD (gastroesophageal reflux disease) Hiatal hernia Non-smoker CPAP (continuous positive airway pressure) dependence Pain aggravated by walking Edema Irregular heart beat Hypertension Migraine headache Restless legs Injury of back Stroke/cerebrovascular accident Surgical History Hx of cardiac catheterization Hx of colonoscopy History of esophagogastroduodenoscopy (EGD) Hx of vasectomy Hx of arthroscopic knee surgery Hx of tonsillectomy Hx of appendectomy Hx of shoulder surgery Social History (Updated 02/29/24 @ 09:56 by Livier Dumas MA) household members: spouse and family Smoking Status: Former smoker alcohol intake: current alcohol intake frequency: holidays/special occasions only HPI RIGHT KNEE Details: This documentation accurately reflects the service provided and the decisions made by me, Dr. Fred Huber MD 02/29/24 0944. Part of today???s visit was documented by [ ], acting as scribe. TATE BALTAZAR is a 49 year old M here today for right knee pain. lateral side pain. since 20 yrs old. had a cortisone injection a couple weeks ago. no stiffness. feels like will hyper extend. swelling for a couple hours better with rest. no work, likes to 'trista' but had two strokes with right sided weakness. no blood thinner. tried a brace. did PT in the past, not sure when the last time was a couple years ago, made the knee hurt. Ortho Exam General General: Yes no acute distress Neurologic: Yes alert and Yes oriented x3 Psychologic: Yes reasonable and appropriate Right Knee Skin/Wound: Yes CDI, No erythema, No ecchymosis and No swelling Examination: Yes Med jt line tenderness, Yes Lat jt line tenderness, No TTP inf pole patella, Yes Crepitus, Yes Pain with flexion, No Pain with extention, Yes Sarah's Test, No TTP Patellar tendon, No TTP Tibial tubercle, No TTP Pes Anserine and No Illiotibial band tenderness Quad Atrophy: Yes Stability: NML: Anterior Drawer, NML: Elana, NML: Posterior Drawer, NML: Valgus 0, NML: Valgus 30, NML: Varus 0 and NML: Varus 30 Patella Translation: 2 Apprehension with Lateral Translation: No Patellar Tilt Normal: Yes Patella Grind: Yes KNEE: decr sensation throughout LE from stroke, rom 0-120. weak quads 4/5. Left Knee Patella Translation: 2 Supplemental Info X-rays 4 views of the right knee obtained today show no acute abnormalities. There i (more content not included)... Normal [facility] OPERATIVE NOon 02-23-2024 OPERATIVE NO HNO ID: [id number] Author: JENNIFER MUNROE MD Service: Pain Management Author Type: Anesthesiologist Type: Operative Report Filed: 02/23/2024 08:57 Note Text: PROCEDURE: Right shoulder corticosteroid injection. DATE OF SERVICE: February 23, 2024 PREPROCEDURE DIAGNOSIS: Right shoulder OA-DJD ANESTHESIA: local COMPLICATIONS: none CONSENT: Risks of the procedure including bleeding, infection, nerve damage, seizure, abscess formation, hematoma formation, headache, failure of the pain to improve and potential worsening of the pain, were explained in full to the patient who verbalized understanding and wishes to proceed with the injection at this time. Written informed consent was thereby obtained. BRIEF HISTORY: Last done by me 10/26/23. Patient wants this repeated again today DESCRIPTION OF PROCEDURE: After written informed consent was obtained as above, the patient was placed on the examination room table in the sitting position. The right shoulder joint space was identified using the subacromial approach. The skin was sterilely prepped with ChloraPrep. A sterile drape was applied. The skin and subcutaneous tissues were infiltrated with 5- cc of 1% Lidocaine and a 25 gauge 1 ? inch needle. After negative aspiration to heme, a total of 60 mg Kenalog and 5 cc 0.25% PF Marcaine was injected to the right shoulder. There were no complications noted upon injection. The needle tip was removed intact. The patient remained neurovascularly intact both pre- and postprocedure. The area was wiped clean and a Band-Aid was applied as appropriate. The patient was transferred to the recovery area where their VSS remained stable. After a period of observation, the patient was discharged home in good condition. COMMENTS: repeat prn Contemplating seeing Dr. Boateng for IT opioid trial. Referred to Ortho in [place] for 2nd opinion regarding right knee Normal [facility] OPERATIVE NOon 02-16-2024 OPERATIVE NO HNO ID: [id number] Author: JENNIFER MUNROE MD Service: Pain Management Author Type: Anesthesiologist Type: Operative Report Filed: 02/16/2024 09:23 Note Text: PROCEDURE: Knee Injection. RIGHT SYNVISC Injection DATE OF SERVICE: February 16, 2024 PREPROCEDURE DIAGNOSIS: Right knee osteoarthritis, right knee degenerative changes, right knee pain ANESTHESIA: Local COMPLICATIONS: None CONSENT: Risks of the procedure including bleeding, infection, nerve damage, seizure, abscess formation, hematoma formation, headache, failure of the pain to improve and potential worsening of the pain, were explained in full to the patient who verbalized understanding and wishes to proceed with the injection at this time. Written informed consent was thereby obtained. BRIEF HISTORY: See last office note DESCRIPTION OF PROCEDURE: After written informed consent was obtained as above, the patient was placed in the sitting position. The right knee was flexed and the joint space was identified via palpation. The skin was sterilely prepped with ChloraPrep. A sterile drape was applied. Local anesthetic of 1% Lidocaine, 5 ccs was used as local, using a 25 gauge 1 ? inch needle. A 22 g 3.5 spinal needle was advanced toward the medial aspect of the knee joint space. Negative aspiration throughout. A total of 6 cc of Synvisc 1 ([id number]; expir 07/15/26) was injected easily There were no complications noted upon injection. The needle tip was removed intact. The patient remained neurovascularly intact both pre- and postprocedure. The area was wiped clean and a Band-Aid was applied as appropriate. The patient was transferred to the recovery area where their VSS remained stable. After a period of observation, the patient was discharged home in good condition. COMMENTS: Repeat as needed Normal [facility] COVPCRon 02-02-2024 SARS-CoV-2 (COVID-19) RNA JUDITH+probe Ql (Unsp spec) Negative Normal Negative [facility] Comment on above: Order Comment: STAT Result Comment: Resu lts from the Xpert Xpress CoV-2/Flu/RSV plus test should be correlated with the clinical history, epidemiological data, and other data available to the clinical evaluating the patient. Performance of the Xpert Xpress CoV-2/Flu/RSV plus test has only been established in nasopharyngeal swab specimen. Erroneous test results might occur from improper specimen collection, failure to follow the recommended sample collection, handling and storage procedures, technical error, or sample mix-up. False negative results may occur if a virus is present at a level below the analytical limit of detection. Viral nucleic acid may persist in vivo, independent of virus viability. Detection of analyte target(s) does not imply that the corresponding virus(es) are infectious or are the causative agents for clinical symptoms. Recent patient exposure to FluMist or other live attenuated influenza vaccines may cause inaccurate positive results. Performed By: #### C OVPCR ####[place] [address] LABORATORYOrdered By: Wanda Crawford on 02-02-2024 SARS-CoV-2 (COVID-19) RNA JUDITH+probe Ql (Resp) Negative 1 (02/02/24 3:13 PM) Normal AO Auto Urine SS Comment on above: Interpretive Data: R esults from the Xpert Xpress CoV-2/Flu/RSV plus test should be correlated with the clinical history, epidemiological data, and other data available to the clinical evaluating the patient. Performance of the Xpert Xpress CoV-2/Flu/RSV plus test has only been established in nasopharyngeal swab specimen. Erroneous test results might occur from improper specimen collection, failure to follow the recommended sample collection, handling and storage procedures, technical error, or sample mix-up. False negative results may occur if a virus is present at a level below the analytical limit of detection. Viral nucleic acid may persist in vivo, independent of virus viability. Detection of analyte target(s) does not imply that the corresponding virus(es) are infectious or are the causative agents for clinical symptoms. Recent patient exposure to FluMist or other live attenuated influenza vaccines may cause inaccurate positive results. XR SACRUM/COCCYX MINIMUM 2 V IEWSon 11-06-2023 XR SACRUM/COCCYX MINIMUM 2 VIEWS ORIGINAL EXAMINATION: XR sacrum and coccyx three views 11/04/2023 11:31 am COMPARISON: None HISTORY: ORDERING SYSTEM PROVIDED HISTORY: Reason for Exam: Coccydynia, FINDINGS: No acute fracture, dislocation, lytic process or periosteal reaction is seen in the visualized bones and joints. No erosive type of arthritis. No periarticular soft tissue calcification. Minimal lower lumbar degenerative changes. Symmetric normal SI joints. Small right pelvic calcification is probably phlebolith. IMPRESSION: No acute skeletal abnormality is seen. . Interpreted by: Gee Story MD Preliminary Report By: Gee Story MD Electronically signed By Gee Story MD Dictated Date: 11/06/2023 10:11:50 PM Prelim Date: 11/06/2023 10:12:38 PM Sign Date: 11/06/2023 10:12:38 PM Ordering Provider: RAHUL FREEMAN [facility] ([place]) CASE MANAGEMon 09-13-2023 CASE MANAGEM HNO ID: [id number] Author: PINEDA HUSSEIN LSW Service: ASSESSMENT Author Type: Colorectal Surgeon Type: Care Mgt Progress Note Filed: 09/13/2023 14:42 Note Text: CARE MANAGEMENT DISCHARGE NOTE SERVICE DATE: September 13, 2023 SERVICE TIME: 2:41 PM Admission Date: 09/12/2023 LOS: 0 days Discharge Arrangement Discharge Arrangement: Home with Self Care Services Arranged Medical Services: Other: See Comment Provider Name: N/A Phone: N/A Caregiver Assessment Caregiver is ready, willing and able to meet the patient's needs as recommended by the inter-professional team: No Caregiver needed Transportation Arrangements Transportation Arrangements: To Be Determined Handoff Communication: Handoff to: Primary Care Physician Primary Care Physician Name/Phone: Dr. Harkins [phone] Additional Information: N/A Pt. Will discharge home today w/basic needs. Family will transport pt. Home. SW will remain available should any further discharge planning needs arise. SIGNATURE: Pineda Hussein AIRPORT OPERATIONS SPECIALIST, OCCUPATIONAL THERAPY INSTRUCTOR PATIENT NAME: Tate Baltazar DATE: September 13, 2023 TIME: 2:41 PM CONTACT #[facility] HNO ID: [id number] Author: PINEDA HUSSEIN LSW Service: ASSESSMENT Author Type: Colorectal Surgeon Type: Care Mgt Initial Assessment Filed: 09/13/2023 14:41 Note Text: CARE MANAGEMENT: ASSESSMENT AND DISCHARGE PLAN SERVICE DATE: September 13, 2023 SERVICE TIME: 2:41 PM PCP: Kamron Pelaez Primary Contact: Extended Emergency Contact Information Primary Emergency Contact: Maryan Baltazaria Mobile Relation: Spouse Secondary Emergency Contact: BaltazarRobbi [place] Mobile Relation: Father Admission Status: Observation Insurance Provider: [facility] [employer] MEDICAID OF [place] Discharge Planning requested by: Per Department Practice Potential Transition Plans Home Advance Directives Current Advance Directive: None Powder Hand Attempted to Assist with AD Completion: Yes Action: Education Provided Current Living Arrangements and Support Lives with: Family members, Spouse/significant other Type of Residence: Private Residence (House) Does the patient have to climb stairs at home?: Yes Support: Family members, Spouse/significant other How do you manage to accomplish the following: Independent: Ambulation;Bathe/Shower;Dres s;Meals/Meal Prep;Going to the bathroom;Medication Management;Transportation to appointments/community Current Services/Equipment Current Post-Acute Service(s): None Discharge Planning Patient Goal(s): Independent living, Be able to go home, General wellness [place] of Choice Explained: [place] of Choice Given: No Reason Not Given: No placements necessary Are you interested in bedside delivery of your medications? No Discharge Planning Participant(s): Patient Patient/Family Comments: Pt. would like to return home w/family Caregiver Assessment: Caregiver is ready, willing and able to meet the patient's needs as recommended by the inter-professional team: No Caregiver needed Transport at Discharge: Transportation Arrangements: To Be Determined Needs Prior to Discharge: Needs Prior to Discharge: None;Ready for Discharge Post-Acute Discharge Plan: This patient has been screened for Care Management Transitional Planning Services. At this time, it does not appear this patient will require transition planning services. Should this change, and the patient requires planning services coordinated during this admission (ie: placement, HHC, IV ATBs, DME) please call the correctional counselor/case manager covering this case. SIGNATURE: Pineda Hsusein AIRPORT OPERATIONS SPECIALIST, OCCUPATIONAL THERAPY INSTRUCTOR PATIENT NAME: Tate Baltazar DATE: September 13, 2023 TIME: 2:41 PM CONTACT #: Normal [facility] CBC panel Auto (Bld)on 09-12 Erythrocyte distribution width (RBC) [Ratio] 13.5 % Normal 11.5-15.0 [facility] Comment on above: Order Comment: Brit galaviz Type: BLOOD SPECIMENOrdering Facility: [facility] Address: [address] [place] [address] Performed By: #### 5 8410-2 ####[place] LABORATORYCLIA [id number] [address] [place] Hematocrit (Bld) [Volume fraction] 37.9 % Low 39.0-51.0 [facility] Comment on above: Order Comment: Brit galaviz Type: BLOOD SPECIMENOrdering Facility: [facility] Address: [address] [place] [address] Performed By: #### 5 8410-2 ####[facility] [facility] LABORATORYCLIA [id number] [address] [place] Hemoglobin (Bld) [Mass/Vol] 13.5 g/dL Normal 13.0-17.0 [facility] Comment on above: Order Comment: Brit galaviz Type: BLOOD SPECIMENOrdering Facility: [facility] Address: [address] [place] [address] Performed By: #### 5 8410-2 ####[facility] LABORATORYCLIA [id number] [address] MCH (RBC) [Entitic mass] 30.7 pg Normal 26.0-34.0 [facility] Comment on above: Order Comment: Speci men Type: BLOOD SPECIMENOrdering Facility: [facility] Address: [address] [place] [address] Performed By: #### 5 8410-2 ####[facility] LABORATORYCLIA [id number] [address] MCHC (RBC) [Mass/Vol] 35.6 g/dL Normal 30.5-36.0 [facility] Comment on above: Order Comment: Speci men Type: BLOOD SPECIMENOrdering Facility: [facility] Address: [address] [place] [address] Performed By: #### 5 8410-2 ####[facility] LABORATORYCLIA [id number] [address] MCV (RBC) [Entitic vol] 86.1 fL Normal 80.0-100.0 [facility] Comment on above: Order Comment: Speci men Type: BLOOD SPECIMENOrdering Facility: [facility] Address: [address] [place] [address] Performed By: #### 5 8410-2 ####[facility] LABORATORYCLIA [id number] [address] Nucleated RBC (Bld) [#/Vol] 10*3/uL Normal <0.01 [facility] Comment on above: Order Comment: Speci men Type: BLOOD SPECIMENOrdering Facility: [facility] Address: [address] [place] [address] Performed By: #### 5 8410-2 ####[facility] LABORATORYCLIA [id number] [address] Platelet mean volume (Bld) [Entitic vol] 9.1 fL Normal 9.0-12.7 [facility] Comment on above: Order Comment: Speci men Type: BLOOD SPECIMENOrdering Facility: [facility] Address: [address] [place], [place] [id number] Performed By: #### 5 8410-2 ####[facility] LABORATORYCLIA [id number] [address] [place] Platelets (Bld) [#/Vol] 234 10*3/uL Normal 150-400 [facility] Comment on above: Order Comment: Speci men Type: BLOOD SPECIMENOrdering Facility: [facility] Address: [address] [place] [address] Performed By: #### 5 8410-2 ####[facility] LABORATORYCLIA [id number] [place] [address] [place] RBC (Bld) [#/Vol] 4.40 10*6/uL Normal 4.20-6.00 [facility] Comment on above: Order Comment: Rondai men Type: BLOOD SPECIMENOrdering Facility: [facility] Address: [address] [place] [address] Performed By: #### 5 8410-2 ####[facility] LABORATORYCLIA [id number] [address] [place] WBC (Bld) [#/Vol] 5.71 10*3/uL Normal 3.70-11.00 [facility] Comment on above: Order Comment: Speci men Type: BLOOD SPECIMENOrdering Facility: [facility] Address: [address] [place] [address] Performed By: #### 5 8410-2 ####[facility] LABORATORYCLIA [id number] [place] [id number] [facility] [place] CNDSon 09-13-2023 CNDS HNO ID: [id number] Author: GINI FAROOQ MD Service: Hospital Medicine Author Type: Physician Type: Discharge Summary Filed: 09/13/2023 14:40 Note Text: DISCHARGE SUMMARY PATIENT NAME: Tate Baltazar Code Status: DNR-CCA, DNI, NO ICU Highest Readmission Risk Score: 9 The 30 day readmissions risk score is derived from an internally validated risk model which evaluates patient level characteristics, utilization history, medication orders and lab results up until the day of discharge. Patients with a score of 40 or above are considered highest risk for readmission. Specific patient level drivers will be listed at the bottom of the summary. Admission Information Admission Information ADMIT DATE: 09/12/2023 DISCHARGE DATE: 09/13/23 MY DOCTORS AND MEDICAL TEAM: My Main Hospital Doctor: Gini Farooq MD Primary Care Provider: Lanette Harkins DO My Medical Team Members: Treatment Team: Attending Provider: Gini Farooq MD Primary Service: , [facility] MY CONDITION AT DISCHARGE: Stable REASON I WAS IN THE HOSPITAL: abdominal pain SUMMARY OF WHAT HAPPENED WHILE I WAS IN THE HOSPITAL: you presented to the hospital with the complaint of abdominal pain, nausea and vomiting. You had a ct scan of the abdomen done which showed no clear source of of abdominal pain.you were found to be dehydrated and your kidney function was decreased which improved after iv fluids. Your symptoms resolved and you were able to tolerated a soft diet. You are being discharged home in stable condition. You should follow up with your pcp in 3-4 days. OTHER PROBLEMS/DIAGNOSIS: Principal Problem: Intractable abdominal pain Active Problems: Essential hypertension Depression Radiculopathy, lumbar region History of CVA (cerebrovascular accident) Gastroesophageal reflux disease with esophagitis Chronic right shoulder pain JANNETTE (obstructive sleep apnea) Myofascial pain syndrome STEPHANY (acute kidney injury) (HCC) Resolved Problems: * No resolved hospital problems. * OPERATIONS PERFORMED WHILE IN THE HOSPITAL: None IMPORTANT TEST/PROCEDURES: No procedures performed TEST RESULTS NOT AVAILABLE AT THIS TIME: No pending results Discharge Disposition Discharge Disposition: Home With Self Care Additional Provider to Provider Information: 48 year old male with a past medical history notable for hypertension, GERD, JANNETTE on CPAP, chronic right shoulder pain, myofascial pain syndrome, lumbar radiculopathy, and CVA/ICH presented with abdominal pain, nausea and vomiting. In the [place] emergency room the patient was found to be afebrile and saturating well on room air. He was noted to be hypertensive to 151/113 as a high (likely during episodes of nausea) as well as tachycardic to 124. Labs are most notable for hypokalemia of 3.3, creatinine of 1.51, lipase of 69, normal LFTs, BNP of 125, high-sensitivity troponin of 14-->12, D-dimer of 870, and WBC of 7.09. Urine tox was notable for positive opioids. UA was most notable for specific gravity greater than or equal to 1.030, moderate calcium oxalate stones, +1 bilirubin, and trace ketones. Imaging included chest x-ray as well as CT PE which were negative for acute findings. CT abdomen and pelvis 09/09 showed no acute findings Patient was admitted to the hospital, treated with iv fluids, creatinine improved, potassium and magnesium were replaced. Patient was able to tolerate a soft gi diet. He is being discharged home in stable condition. Active Hospital Problems as of 09/13/2023 Noted - Resolved [facility] Essential hypertension 10/01/2015 - Present Yes Depression 10/01/2015 - Present Yes Radiculopathy, lumbar region 03/26/2020 - Present Yes History of CVA (cerebrovascular accident) 11/19/2021 - Present Yes Gastroesophageal reflux disease with esophagitis 11/19/2021 - Present Yes Chronic right shoulder pain 11/19/2021 - Present Yes JANNETTE (obstructive sleep apnea) 03/17/2019 - Present Yes Myofascial pain syndrome 05/27/2023 - Present Yes * (Principal) Intractable abdominal pain 09/12/2023 - Present Yes STEPHANY (acute kidney injury) (HCC) 09/12/2023 - Present Yes Resolved Hospital Problems as of 09/13/2023 None Transitions of Care Critical Issues: Follow up with pcp LABS AND PROCEDURES PENDING AT DISCHARGE: No pending results. FOLLOW-UP APPOINTMENTS ALREADY SCHEDULED WITH A [facility] PROVIDER: Future Appointments Date Time Provider Department Center 10/01/2023 10:45 AM Chantell Barr APRN.[facility] C 02/25/2024 11:15 AM Mireya Sweet PA-C [facility] ALLERGIES Allergen Reactions Hydrochlorothiazide Other: See Comments Sulfamethoxazole-Tr* Unknown, Other: See Comments Acetaminophen Other: See Comments Rebound headaches Acetaminophen-Codei* Unknown Doxycycline Hives Hydrocodone Other: See Comments Kihei Juice Unknown Kihei Oil Hives, Other: See Comments Pseudoephedrine Unkno (more content not included)... Normal [facility] Comprehensive metabolic 2000 panelon 09-13-2023 Albumin [Mass/Vol] 4.1 g/dL Normal 3.9-4.9 [facility] Comment on above: Order Comment: Speci men Type: BLOOD SPECIMENOrdering Facility: [facility] Address: [address] [place] [address] Performed By: #### 1 9, 65845-1 ####[facility] LABORATORYCLIA [id number] [place] [address] [place] ALP [Catalytic activity/Vol] 90 U/L Normal 38-113 [facility] Comment on above: Order Comment: Speci men Type: BLOOD SPECIMENOrdering Facility: [facility] Address: [address] [place] [address] Performed By: #### 1 9, 55777-4 ####COLÓ[facility] LABORATORYCLIA [id number] [place] [address] [place] ALT [Catalytic activity/Vol] 29 U/L Normal 10-54 [facility] Comment on above: Order Comment: Speci men Type: BLOOD SPECIMENOrdering Facility: [facility] Address: [address] [place] [address] Performed By: #### 1 9, 93244-6 ####COLÓN LABORATORYCLIA [id number] [place] [address] [place] Anion gap [Moles/Vol] 10 mmol/L Normal 9-18 [facility] Comment on above: Order Comment: Speci men Type: BLOOD SPECIMENOrdering Facility: [facility] Address: [address] [place] [address] Performed By: #### 1 239, 54459-1 ####COLÓN LABORATORYCLIA [id number] [address] [place] AST [Catalytic activity/Vol] 26 U/L Normal 14-40 [facility] Comment on above: Order Comment: Speci men Type: BLOOD SPECIMENOrdering Facility: [facility] Address: [address] [facility] [place] [address] Performed By: #### 1 9, 46765-0 ####COLÓN LABORATORYCLIA [id number] [place] [address] [place] Bilirubin [Mass/Vol] 0.9 mg/dL Normal 0.2-1.3 [facility] Comment on above: Order Comment: Speci men Type: BLOOD SPECIMENOrdering Facility: [facility] Address: [address] [place] [address] Performed By: #### 1 9, ####COLÓN LABORATORYCLIA [id number] [place] [address] [place] Calcium [Mass/Vol] 9.0 mg/dL Normal 8.5-10.2 [facility] Comment on above: Order Comment: Speci men Type: BLOOD SPECIMENOrdering Facility: [facility] Address: [address] [place] [address] Performed By: #### 1 9, ####COLÓN LABORATORYCLIA [id number] [place] [address] [place] Chloride [Moles/Vol] 103 mmol/L Normal 97-105 [facility] Comment on above: Order Comment: Speci men Type: BLOOD SPECIMENOrdering Facility: [facility] Address: [address] [place] [address] Performed By: #### 1 9, ####COLÓN LABORATORYCLIA [id number] [place] [address] [place] CO2 [Moles/Vol] 25 mmol/L Normal 22-30 [facility] Comment on above: Order Comment: Speci men Type: BLOOD SPECIMENOrdering Facility: [facility] Address: [address] [place] [address] Performed By: #### 1 9, ####COLÓN LABORATORYCLIA [id number] [place] [address] [place] Creatinine [Mass/Vol] 1.26 mg/dL High 0.73-1.22 [facility] Comment on above: Order Comment: Speci men Type: BLOOD SPECIMENOrdering Facility: [facility] Address: [address] [place] [address] Performed By: #### 1 9, 69434-1 ####COLÓN LABORATORYCLIA [id number] [place] [address] [facility] [place] Creatinine and Glomerular filtration rate.predicted panel (S/P/Bld) 71 mL/min/1.73m??? Normal >=60 [facility] Comment on above: Order Comment: Brit galaviz Type: BLOOD SPECIMENOrdering Facility: [facility] Address: [address] [place] [address] Result Comment: Gladis mated Glomerular Filtration Rate (eGFR) is calculated using the 2020 CKD-EPI creatinine equation. This equation utilizes serum creatinine, sex, and age as parameters. The creatinine assay has traceable calibration to isotope dilution-mass spectrometry. Refer to KDIGO guidelines for clinical interpretation. In patients with unstable renal function, e.g. those with acute kidney injury, the eGFR may not accurately reflect actual GFR. Performed By: #### 1 9123-9, 28945-5 ####[facility] LABORATORYCLIA [id number] [place] [id number] [place] Glucose [Mass/Vol] 106 mg/dL High 74-99 [facility] Comment on above: Order Comment: Brit galaviz Type: BLOOD SPECIMENOrdering Facility: [facility] Address: [address] [place] [address] Result Comment: The [place] Diabetes Association (ADA) provides guidance for cutoff values for fasting glucose and random glucose. The ADA defines fasting as no caloric intake for at least 8 hours. Fasting plasma glucose results between 100 to 125 mg/dL indicate increased risk for diabetes (prediabetes). Fasting plasma glucose results greater than or equal to 126 mg/dL meet the criteria for diagnosis of diabetes. In the absence of unequivocal hyperglycemia, results should be confirmed by repeat testing. In a patient with classic symptoms of hyperglycemia or hyperglycemic crisis, random plasma glucose results greater than or equal to 200 mg/dL meet the criteria for diagnosis of diabetes. Reference: Standards of Medical Care in Diabetes 2016, [place] Diabetes Association. Diabetes Care. 2016.39(Suppl 1). Performed By: #### 1 9123-9, 98696-3 ####[facility] LABORATORYCLIA [id number] [place] [id number] [place] Potassium [Moles/Vol] 3.2 mmol/L Low 3.7-5.1 [facility] Comment on above: Order Comment: Brit galaviz Type: BLOOD SPECIMENOrdering Facility: [facility] Address: [address] [place] [id number] Performed By: #### 1 9123-9, 96332-2 ####COLÓN LABORATORYCLIA [id number] [address] [place] [facility] Protein [Mass/Vol] 6.4 g/dL Normal 6.3-8.0 [facility] Comment on above: Order Comment: Speci men Type: BLOOD SPECIMENOrdering Facility: [facility] Address: [address] [place] [address] Performed By: #### 1 9123-9, 29622-0 ####COLÓN LABORATORYCLIA [id number] [place] [address] [place] Sodium [Moles/Vol] 138 mmol/L Normal 136-144 [facility] Comment on above: Order Comment: Speci men Type: BLOOD SPECIMENOrdering Facility: [facility] Address: [address] [place] [address] Performed By: #### 1 9123-9, 10268-6 ####COLÓN LABORATORYCLIA [id number] [address] [place] [facility] Urea nitrogen [Mass/Vol] 8 mg/dL Low 9-24 [facility] Comment on above: Order Comment: Speci men Type: BLOOD SPECIMENOrdering Facility: [facility] Address: [address] [place] [address] Performed By: #### 1 9123-9, 25194-4 ####COLÓN LABORATORYCLIA [id number] [place] [address] [place] ECG COMPLETEon 09-13-2023 ECG COMPLETE Ventricular Rate : 8 0 BPM Atrial Rate : 80 BPM P-R Interval : 154 ms QRS Duration : 94 ms Q-T Interval : 398 ms QTC Calculation(Bazett) : 459 ms Calculated P Peterson : 37 degrees Calculated R Peterson : -23 degrees Calculated T Peterson : -1 degrees NORMAL SINUS RHYTHM MINIMAL VOLTAGE CRITERIA FOR LVH, MAY BE NORMAL VARIANT ( R in aVL ) BORDERLINE ECG NO PREVIOUS ECGS AVAILABLE Confirmed by MD SPICER GREGORY () on 09/14/2023 8:29:45 AM NAME : BALTAZARTATE FAYE PID : [id number] : 1975 Gender : Male Race : ORD : [id number] Procedure Date : Sep 13 2023 01:21:29 Edit Date : Sep 14 2023 08:29:50 Diagnosis: NORMAL SINUS RHYTHM MINIMAL VOLTAGE CRITERIA FOR LVH, MAY BE NORMAL VARIANT ( R in aVL ) BORDERLINE ECG NO PREVIOUS ECGS AVAILABLE Confirmed by MD SPICER GREGORY () on 09/14/2023 8:29:45 AM Test Reason : Check QT Location : 4 : 2S 0204 Overread By : MD SPICER GREGORY Edited By : MD SPICER GREGORY Referred By : GINO MERCADO Acquired by : [id number], [facility] Magnesium SerPl-mCncon 09-12 Magnesium [Mass/Vol] 1.8 mg/dL Normal 1.7-2.3 [facility] Comment on above: Order Comment: Speci men Type: BLOOD SPECIMENOrdering Facility: [facility] Address: [address] [place] [address] Performed By: #### 1 9123-9, 81820-0 ####[facility] LABORATORYCLIA [id number] [address] OF [facility] ALLIED HEALTH 09-12-2023 ALLIED HEALTH HNO ID: [id number] Author: JC CERVANTES RDMS Service: Radiology Author Type: Marine Steward Type: Allied Health Filed: 09/12/2023 22:17 Note Text: Radiology Service Progress Note PATIENT NAME: Tate Baltazar DATE OF SERVICE: September 12, 2023 TIME: 10:16 PM PATIENT IDENTITY VERIFICATION COMPLETED USING TWO (2) IDENTIFIERS: Name and Date of confirmed by patient verbally and Name and Date of confirmed by identification band. FALL SCREENING: Has the patient had 2 falls in the last year or 1 fall with injury or currently using an Ambulatory Assistive Device (Walker, Cane, Wheelchair, Crutches, etc.)? Inpatient: Screened on floor PATIENT GENDER DATA: Male PATIENT RELEVANT IMPLANT DATA REVIEWED: Not Applicable PATIENT PRESENTS WITH AN IMPLANTABLE OR ATTACHED WINE CELLAR STOCK CLERK: No RADIOLOGY DEPARTMENT: Ultrasound PERIPHERAL IV DATA: Not applicable SIGNED BY: Jc Ang RDMS September 12, 2023 10:16 PM [facility] HISTORY PHYSICALon HISTORY PHYSICAL HNO ID: [id number] Author: ALICJA VASQUES APRN.CNP Service: Hospital Medicine Author Type: Nurse Practitioner Type: H&P Filed: 09/12/2023 21:17 Note Text: Attestation signed by Jesse Dumont MD at 09/13/2023 7:17 AM Attending Note I have reviewed the chart and data for this patient. I agree with the history and physical, and discussed the outlined assessment and management with the CADEN. Signature: Jesse Dumont Date: 09/13/2023 Time: 7:17 AM [facility] OF [facility] MEDICINE HISTORY AND PHYSICAL EXAM SERVICE DATE: 09/12/2023 SERVICE TIME: 8:25 PM Primary Care Physician: Lanette Harkins DO NIGHT AND WEEKEND COVERAGE: [facility] [facility] COVERAGE: Days: [phone], please page attending physician. Nights: [phone], please page [facility] Night coverage pager [phone]. Subjective CHIEF COMPLAINT: Abdominal pain HPI: This is a 48 year old male with a past medical history notable for hypertension, GERD, JANNETTE on CPAP, chronic right shoulder pain, myofascial pain syndrome, lumbar radiculopathy, and CVA/ICH who presents with abdominal pain. Patient relates that his abdominal pain is mainly located in his upper and right sides that it has been ongoing for 2 to 3 weeks. Currently rating pain at 10/10 in intensity and burning in character with waves of worsening pain. Associated with his abdominal pain includes nausea and vomiting to the point where he cannot tolerate any p.o. food and that actually eating makes his pain worse. Also endorses diarrhea that is non-bloody and intermittent in character. Does have a surgical history notable for remote appendectomy but still has gallbladder. Notes that he tried grxe-odq-chghiyb remedies at home including Tylenol and ibuprofen although these did not help as he could not keep anything down. He also sought care at the [place] emergency room on 09/10/[address] of the abdomen and pelvis showed no acute intra-abdominal pelvic pathology. He was also observed to have an STEPHANY at that time with a creatinine of 1.56. He was given IV fluids as well as Zofran as there were no acute findings and the patient was recommended to follow-up with GI for possible endoscopy. Also of note, the patient was recently admitted to [place] from 06/01/2023 through 06/02/2023 with pneumonia as well as headaches felt to be associated with this. MRI of his head was done given concern for meningitis but was found to be negative. He did finish his course of antibiotics as prescribed and followed up with neurology and is receiving Botox injections for his headache which is now under control. Socially, the patient denies regular alcohol use, nicotine use, or recreational drug use. Furthermore he denies new headaches, changes in his vision/hearing, trouble swallowing, chest pain, shortness of breath, cough, hematochezia/constipation, urinary changes, new swelling, or new numbness/tingling. In the [place] emergency room the patient was found to be afebrile and saturating well on room air. He was noted to be hypertensive to 151/113 as a high (likely during episodes of nausea) as well as tachycardic to 124. Labs are most notable for hypokalemia of 3.3, creatinine of 1.51, lipase of 69, normal LFTs, BNP of 125, high-sensitivity troponin of 14-->12, D-dimer of 870, and WBC of 7.09. Urine tox was notable for positive opioids. UA was most notable for specific gravity greater than or equal to 1.030, moderate calcium oxalate stones, +1 bilirubin, and trace ketones. Imaging included chest x-ray as well as CT PE which were negative for acute findings. The patient was given doses of Benadryl, droperidol, Pepcid, Toradol, Ativan, Reglan, 2 L of normal saline/infusion, p.o. potassium, and viscous lidocaine. He is being admitted under hospital medicine for further workup and management of his intractable abdominal pain. 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 Stroke due to intracerebral hemorrhage (HCC) 2018 Had an additional stroke at age 25 PAST SURGICAL HISTORY Procedure Laterality Date APPENDECTOMY CARPAL TUNNEL Left 2014 COLONOSCOPY 20's with EGD EGD TRANSORAL BIOPSY SINGLE/MULTIPLE 10/02/2015 EXCISION PILONIDAL CYST/SINUS EXTENSIVE 07/05/2010 closed ORTHOPEDICS SURGERY HX Right 12/2022 Right ROTATOR cUFF PAST SURGICAL HISTORY OF right knee surgery TONSILLECTOMY PRIMARY/SECONDARY Tonsillectomy VASECTOMY UNI/BI SPX W/POSTOP SEMEN EXAMS Bilateral 05/23/2016 FAMILY HISTORY Problem Relation Age of Onset Prostate Cancer (more content not included)... Normal [facility] Osmolality SerPlon Osmolality [Osmolality] 290 mosm/kg Normal 275-300 [facility] Comment on above: Order Comment: Speci men Type: BLOOD SPECIMENOrdering Facility: [facility] Address: [address] [place] [address] Performed By: #### 2 692-2 ####[facility] LABCLIA [id number] [place] [address] [place] Osmolality Uron 09-12-2023 Osmolality (U) [Osmolality] 502 mosm/kg Normal 50-1200 [facility] Comment on above: Order Comment: Speci men Type: URINE SPECIMENOrdering Facility: [facility] Address: [address] [place] [address] Performed By: #### 2 695-5 ####[facility] LABCLIA [id number] [place] [address] [place] Sodium ?Tm Ur-sCncon 024 Sodium Unsp time (U) [Moles/Vol] 44 mmol/L Normal 14-216 [facility] Comment on above: Order Comment: Speci men Type: URINE SPECIMENOrdering Facility: [facility] Address: [address] [place] [address] Performed By: #### 3 5678-2 ####[facility] LABCLIA [id number] [address] [address] [place] US KIDNEY/BLADDERon 09-12-19 US KIDNEY/BLADDER * * *Final Report* * * DATE OF EXAM: Sep 12 2023 10:13PM RESHMA 1055 - US KIDNEY/BLADDER / PROCEDURE REASON: Kidney failure, acute * * * * Physician Interpretation * * * * EXAMINATION: RENAL ULTRASOUND CLINICAL HISTORY: Kidney failure, acute TECHNIQUE: Sonography of the kidneys and urinary bladder was performed. Images were obtained and stored in a permanent archive. MQ: UR_1 COMPARISON: CT 09/10/2023 RESULT: Right Kidney: -Renal length: 11.5 cm -Parenchyma: Normal parenchymal echogenicity. Normal parenchymal thickness. -Collecting system: No hydronephrosis. -Calculus: No echogenic, shadowing calculus. -Lesion: 1.6 x 1.3 x 1.3 cm exophytic cyst arising at the lower pole Left Kidney: -Renal length: 12.2 cm -Parenchyma: Normal parenchymal echogenicity. Normal parenchymal thickness. -Collecting system: No hydronephrosis. -Calculus: No echogenic, shadowing calculus. -Lesion: None. Bladder: Normal sonographic appearance. IMPRESSION: No hydronephrosis or nephrolithiasis demonstrated. Wafer Cleaner: PSCBeto Transcribe Date/Time: Sep 13 2023 12:00A Dictated by : RADHA BALLARD MD This examination was interpreted and the report reviewed and electronically signed by: RADHA BALLARD MD on Sep 13 2023 12:01AM EST [id number] Normal [facility] CNOVon 08-20-2023 CNOV Office Visit (RBMBHT ) TATE BALTAZAR ([id number]) 1975 M Date Time Provider Department 08/20/23 11:15 AM MIREYA SWEET RBMBHT During your visit today, we recorded the following information about you: Temperature Pulse Blood pressure Weight 98.5 degrees 86/minute 125/77 119.8 kg Height 1.929 m Mireya Sweet PA-C 08/20/2023 11:46 AM Signed REASON FOR VISIT: routine Patient accompanied by: emotional support dog--Mamma PRINCIPAL NEUROLOGIC DIAGNOSIS: ICH and R spastic hemiparesis HISTORY OF ILLNESS: Date of onset: 10/2017 Narrative Describing Problems since last visit: He was last seen in spasticity clinic on 02/16/2023 for help with symptoms related to R spastic hemiparesis. He was instructed to increase tizanidine to and to add cyclobenzaprine for PRN use. He continues to have chronic R shoulder pain and follows with pain management. He will undergo shoulder injection at the end of the month. He's not sure which medications he's taking or why he's taking them. Cyclobenzaprine is not on his med list. He complains of spasms in the RLE, from the knee to foot. He does not have much trouble during the day, he's mostly bothered by painful spasms at night. He has shoulder pain all the time. Patient Entered Data PROMIS No data to display Spasticity NRS 12/15/2022 -- Spasticity Level 7 Spasm Scale 12/15/2022 08/14/2022 -- Spasm Frequency Spasms occurring more than once per hour Infrequent full spasms occuriung less than once per hour Spasm Severity Severe Severe Global Impression of Change No data to display Risk of falls: Yes he had two falls in May; he hit his head during one fall and spent two days in the hospital for observation when he went to the ED with a headache. There were no acute findings on MRI. Domestic Violence: Have you been hit, kicked, punched, or otherwise hurt by someone within the past year? No If so, by whom? Review of Systems PHYSICAL EXAMINATION: Mental Status: There were no deficits of cognition, language or prosody on interview. 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 Strength Right Left Shoulder abduction 4+ 5 Elbow flexion 4+ 5 Elbow extension 4+ 5 Wrist extension 5 5 Hip flexion 4+ 5 Knee flexion 4+ 5 Knee extension 5 5 Plantarflexion 4 5 Dorsiflexion 4+ 5 Spasticity Right Left Shoulder 0 0 Elbow flexors 0 0 Elbow extensors 0 0 Wrist flexors 0 0 Wrist extensors 0 0 Finger flexors 0 0 Finger extensors 0 0 Hip adductors 0 0 Knee extensors 0. 0 Knee flexors 0 0 Plantarflexors 1 0 Modified Al Scale 0 - No increase in tone 1 - Slight increase in tone (catch and release at end of ROM) 1+ - Slight increase in tone, manifested by a catch, followed by minimal resistance throughout remainder (less than half of ROM) 2 - Marked increase in tone through most of the ROM, but affected part(s) easily moved 3 - Considerable increase in tone; passive movement difficult 4 - Affected part(s) rigid in flexion or extension Spasms observed: RUE: no right upper extremity spasms LUE: no left upper extremity spasms RLE: no right lower extremity spasms LLE: no left lower extremity spasms Ambulation Index Score: 2 - Abnormal gait - walks 25 ft in <10 sec without support Gait: Standard gait was normal. ASSESSMENT: History of ICH and right spastic hemiparesis:he complains of ongoing pain and spasms throughout the right side of the body. Neuro exam is notable for satisfactory strength in all extremities, mild hypertonia in the right ankle plantarflexors. Symptoms are out of proportion to clinical findings suggesting neuropathic component. We sorted out that he's taking tizanidine, and he derives benefit from the medication. He is to continue the current dose of . He was again given a prescription for cyclobenzaprine 5mg with the ability to take it up to three times daily as needed for severe spasms. He should continue following with pain management. PLAN 1. Medications as above 2. Follow up 6-12 months I spent a total of 30 minutes on the date of the service which included preparing to see the patient, [id number]-[id number] patient care, completing clinical documentation, performing a medically appropriate examination, counseling and educating the patient/family/caregiver, and ordering medications, tests, or procedures. JON Duque Jennifer L, PA-C 08/20/2023 11:24 AM Signed Flexeril (Cyclobenzaprine) 5mg Take one tab up to three times daily as needed for increased spasms. Allergies As of Date: 08/20/2023 Noted Allergy Reaction HYDROCHLOROTHIAZIDE 05/18/2020 14 - Other: See Comments SULFAMETHOXAZOLE-TRIMETHOPRI M 03/26/2020 16 - Unknown 14 - Other: See Comments ACETAMINOPHEN 09/02/2022 14 - Other: See Comments Comments: Rebound headaches ACETAMINOPHEN-CODEINE 07/24/2021 16 - U (more content not included)... Normal [facility] CBC W Auto Differential pane l (Bld)on 06-02-2023 Basophils (Bld) [#/Vol] 0.08 10*3/uL Normal <0.11 [facility] Comment on above: Order Comment: Speci men Type: BLOOD SPECIMENOrdering Facility: [facility] Address: [address] [place] [address] Performed By: #### 5 7021-8 ####COLÓN LABORATORYCLIA [id number] [place] [address] [place] Basophils/100 WBC (Bld) 1.0 % Normal [facility] Comment on above: Order Comment: Speci men Type: BLOOD SPECIMENOrdering Facility: [facility] Address: [address] [place] [address] Performed By: #### 5 7021-8 ####COLÓN LABORATORYCLIA [id number] [place] [address] [place] Differential cell count method Nom (Bld) Manual Normal [facility] Comment on above: Order Comment: Speci men Type: BLOOD SPECIMENOrdering Facility: [facility] Address: [address] [place] [address] Performed By: #### 5 7021-8 ####COLÓN LABORATORYCLIA [id number] [place] [address] [place] Eosinophils (Bld) [#/Vol] 0.08 10*3/uL Normal <0.46 [facility] Comment on above: Order Comment: Speci men Type: BLOOD SPECIMENOrdering Facility: [facility] Address: [address] [place] [address] Performed By: #### 5 7021-8 ####COLÓN LABORATORYCLIA [id number] [place] [address] [place] Eosinophils/100 WBC (Bld) 1.0 % Normal [facility] Comment on above: Order Comment: Speci men Type: BLOOD SPECIMENOrdering Facility: [facility] Address: [address] [place] [address] Performed By: #### 5 7021-8 ####COLÓN LABORATORYCLIA [id number] [place] [address] [place] Erythrocyte distribution width (RBC) [Ratio] 13.3 % Normal 11.5-15.0 [facility] Comment on above: Order Comment: Speci men Type: BLOOD SPECIMENOrdering Facility: [facility] Address: [address] [place] [address] Performed By: #### 5 7021-8 ####COLÓN LABORATORYCLIA [id number] [address] [place] Hematocrit (Bld) [Volume fraction] 37.4 % Low 39.0-51.0 [facility] Comment on above: Order Comment: Speci men Type: BLOOD SPECIMENOrdering Facility: [facility] Address: [address] [place] [address] Performed By: #### 5 7021-8 ####COLÓN LABORATORYCLIA [id number] [place] [address] [place] Hemoglobin (Bld) [Mass/Vol] 13.1 g/dL Normal 13.0-17.0 [facility] Comment on above: Order Comment: Speci men Type: BLOOD SPECIMENOrdering Facility: [facility] Address: [address] [place] [address] Performed By: #### 5 7021-8 ####COLÓN LABORATORYCLIA [id number] [place] [address] [facility] [place] Lymphocytes (Bld) [#/Vol] 2.59 10*3/uL Normal 1.00-4.00 [facility] Comment on above: Order Comment: Speci men Type: BLOOD SPECIMENOrdering Facility: [facility] Address: [address] [place] [address] Performed By: #### 5 7021-8 ####COLÓN LABORATORYCLIA [id number] [address] Lymphocytes/100 WBC (Bld) 34.0 % Normal [facility] Comment on above: Order Comment: Speci men Type: BLOOD SPECIMENOrdering Facility: [facility] Address: [address] [place] [address] Performed By: #### 5 7021-8 ####COLÓN LABORATORYCLIA [id number] [address] [place] MCH (RBC) [Entitic mass] 30.7 pg Normal 26.0-34.0 [facility] Comment on above: Order Comment: Speci men Type: BLOOD SPECIMENOrdering Facility: [facility] Address: [address] [place] [address] Performed By: #### 5 7021-8 ####COLÓN LABORATORYCLIA [id number] [address] [place] [facility] MCHC (RBC) [Mass/Vol] 35.0 g/dL Normal 30.5-36.0 [facility] Comment on above: Order Comment: Speci men Type: BLOOD SPECIMENOrdering Facility: [facility] Address: [address] [place] [address] Performed By: #### 5 7021-8 ####COLÓN LABORATORYCLIA [id number] [address] MCV (RBC) [Entitic vol] 87.6 fL Normal 80.0-100.0 [facility] Comment on above: Order Comment: Speci men Type: BLOOD SPECIMENOrdering Facility: [facility] Address: [address] [place] [address] Performed By: #### 5 7021-8 ####COLÓN LABORATORYCLIA [id number] [address] Monocytes (Bld) [#/Vol] 0.61 10*3/uL Normal <0.87 [facility] Comment on above: Order Comment: Speci men Type: BLOOD SPECIMENOrdering Facility: [facility] Address: [address] [place] [address] Performed By: #### 5 7021-8 ####COLÓN LABORATORYCLIA [id number] [address] Monocytes/100 WBC (Bld) 8.0 % Normal [facility] Comment on above: Order Comment: Speci men Type: BLOOD SPECIMENOrdering Facility: [facility] Address: [address] [place] [address] Performed By: #### 5 7021-8 ####COLÓN LABORATORYCLIA [id number] [place] [address] [place] MYELO% 1.0 % Normal [facility] Comment on above: Order Comment: Speci men Type: BLOOD SPECIMENOrdering Facility: [facility] Address: [address] [place] [address] Performed By: #### 5 7021-8 ####COLÓN LABORATORYCLIA [id number] [place] [address] [place] Neutrophils (Bld) [#/Vol] 4.20 10*3/uL Normal 1.45-7.50 [facility] Comment on above: Order Comment: Speci men Type: BLOOD SPECIMENOrdering Facility: [facility] Address: [address] [place] [address] Performed By: #### 5 7021-8 ####COLÓN LABORATORYCLIA [id number] [address] [place] Neutrophils/100 WBC (Bld) 55.0 % Normal [facility] Comment on above: Order Comment: Speci men Type: BLOOD SPECIMENOrdering Facility: [facility] Address: [address] [place] [address] Performed By: #### 5 7021-8 ####COLÓN LABORATORYCLIA [id number] [place] [address] [place] Nucleated RBC (Bld) [#/Vol] 10*3/uL Normal <0.01 [facility] Comment on above: Order Comment: Speci men Type: BLOOD SPECIMENOrdering Facility: [facility] Address: [address] [place] [address] Performed By: #### 5 7021-8 ####COLÓN LABORATORYCLIA [id number] [place] [address] [place] Nucleated RBC/100 WBC (Bld) [Ratio] 0.0 /100 WBC Normal [facility] Comment on above: Order Comment: Speci men Type: BLOOD SPECIMENOrdering Facility: [facility] Address: [address] [place] [address] Performed By: #### 5 7021-8 ####COLÓN LABORATORYCLIA [id number] [place] [address] [place] Platelet mean volume (Bld) [Entitic vol] 9.6 fL Normal 9.0-12.7 [facility] Comment on above: Order Comment: Speci men Type: BLOOD SPECIMENOrdering Facility: [facility] Address: [address] [place] [address] Performed By: #### 5 7021-8 ####COLÓN LABORATORYCLIA [id number] [place] [address] [place] Platelets (Bld) [#/Vol] 258 10*3/uL Normal 150-400 [facility] Comment on above: Order Comment: Speci men Type: BLOOD SPECIMENOrdering Facility: [facility] Address: [address] [place] [address] Performed By: #### 5 7021-8 ####COLÓN LABORATORYCLIA [id number] [place] [address] [place] Platelets Estimate (Bld) [#/Vol] Adequate Normal [facility] Comment on above: Order Comment: Speci men Type: BLOOD SPECIMENOrdering Facility: [facility] Address: [address] [place] [address] Performed By: #### 5 7021-8 ####COLÓN LABORATORYCLIA [id number] [place] [address] [place] RBC (Bld) [#/Vol] 4.27 10*6/uL Normal 4.20-6.00 [facility] Comment on above: Order Comment: Speci men Type: BLOOD SPECIMENOrdering Facility: [facility] Address: [address] [place] [address] Performed By: #### 5 7021-8 ####COLÓN LABORATORYCLIA [id number] [address] RED CELL MORPH Reviewed: unremarkable [facility] Comment on above: Order Comment: Speci men Type: BLOOD SPECIMENOrdering Facility: [facility] Address: [address] [place] [address] Performed By: #### 5 7021-8 ####COLÓN LABORATORYCLIA [id number] [address] WBC (Bld) [#/Vol] 7.63 10*3/uL Normal 3.70-11.00 [facility] Comment on above: Order Comment: Speci men Type: BLOOD SPECIMENOrdering Facility: [facility] Address: [address] [place] [address] Performed By: #### 5 7021-8 ####COLÓN LABORATORYCLIA [id number] [address] WBC Left Shift Ql (Bld) Present [facility] Comment on above: Order Comment: Speci men Type: BLOOD SPECIMENOrdering Facility: [facility] Address: [address] [place] [address] Performed By: #### 5 7021-8 ####COLÓN LABORATORYCLIA [id number] [address] CNDSon 06-02-2023 CNDS HNO ID: [id number] Author: YFN BLANCA MD Service: Hospital Medicine Author Type: Physician Type: Discharge Summary Filed: 06/03/2023 14:02 Note Text: DISCHARGE SUMMARY PATIENT NAME: Tate Baltazar Code Status: Not on file Highest Readmission Risk Score: 16 The 30 day readmissions risk score is derived from an internally validated risk model which evaluates patient level characteristics, utilization history, medication orders and lab results up until the day of discharge. Patients with a score of 40 or above are considered highest risk for readmission. Specific patient level drivers will be listed at the bottom of the summary. Admission Information Admission Information ADMIT DATE: 06/01/2023 DISCHARGE DATE: 06/02/2023 MY DOCTORS AND MEDICAL TEAM: My Main Hospital Doctor: Yfn Blanca MD Primary Care Provider: Lanette Harkins DO My Medical Team Members: Treatment Team: Attending Provider: Yfn Blanca MD Primary Service: 2, [facility] MY CONDITION AT DISCHARGE: Stable REASON I WAS IN THE HOSPITAL: Upper lobe pneumonia which was a symptomatic and will need to be followed up by your doctor SUMMARY OF WHAT HAPPENED WHILE I WAS IN THE HOSPITAL: Treated with antibiotics however headache was a prime symptom bothering you and most of the symptoms seem to been associated more with a headache. The low oxygen you had initially cleared with antibiotics and you have been with good oxygen saturation. Admitted with headache found to have upper lobe pneumonia which is probably mycoplasma. MRI showed no findings and there is no meningitis by examination or MRI the headache seems to be associated with the pneumonia. Will have you continue the antibiotics to complete the course of therapy and follow-up with neurology. With your chronic headaches you are more prone to have this happen and none of the medications we tried made any difference in your headache. Will discharge her to follow-up. Recommend rest in a quiet room OTHER PROBLEMS/DIAGNOSIS: Principal Problem: Lobar pneumonia (HCC) Active Problems: Essential hypertension Depression Dysphagia due to recent stroke Migraine without aura Cerebrovascular accident (HCC) Gastroesophageal reflux disease with esophagitis Chronic right shoulder pain History of subarachnoid hemorrhage JANNETTE (obstructive sleep apnea) Primary osteoarthritis of right knee S/P right rotator cuff repair Myofascial pain syndrome Contusion of right lung Dizziness Fall Acute recurrent maxillary sinusitis Obesity, Class I, BMI 30-34.9 Resolved Problems: * No resolved hospital problems. * OPERATIONS PERFORMED WHILE IN THE HOSPITAL: None IMPORTANT TEST/PROCEDURES: No procedures performed TEST RESULTS NOT AVAILABLE AT THIS TIME: No pending results Discharge Disposition Discharge Disposition: Home With Self Care Activity When You Leave the Hospital Limited to: Rest with activity as tolerated. Diet Instructions Resume your pre-hospital diet For Pain When You Leave the Hospital Use acetaminophen (Tylenol) as recommended on the bottle Follow Up Appointments Follow-Up Appointment When: In 1 week Patient/Parents to call for appointment?: Yes Lanette Harkins DO [phone] [facility] [address] [facility] [address] PCP Requested Referral Follow-Up Appointment When: In 4 weeks Comment - [phone] Patient/Parents to call for appointment?: Scheduled Charmaine Mirza MD PCP Requested Referral Additional Provider to Provider Information: Reason for Admission: Headache and falling ASSESSMENT/PLAN MRI negative for stroke headache seems to be most likely with a normal white count procalcitonin 0.23 and asymptomatic pneumonia mycoplasma which headache is a common precipitating factor for. In the ED my experience has been headache is the most common presentation of mycoplasma pneumonia. Completing course of antibiotics for upper lobe pneumonia with follow-up Patient's headache not changed by medications which I have found also with mycoplasma pneumonia and he has no stiff neck and normal MRI of the brain to do an LP and find a few white cells would not change any therapy and we will have him follow-up with neurology and with PCP for reimaging and reassessment. Patient has chronic pain and has had chronic headache and there is a good chance this is just a status migraine but having given migraine cocktail and no change in the pain after Dilaudid, grandma Solu-Medrol, Compazine and Benadryl multiple times patient said he would go home and rest and see if his headache would break on its own. Consultants: Neurology Dr. Martinez PROCEDURES: NONE Disposition: Home PT and OT EKG: Sinus tachycardia with similar to normal EKG of 10/19/2017. Barely meets voltage criteria for LVH in aVL ECHO: 10/19/2017 - The left ventricle is normal in size. Left ventricular (more content not included)... Normal [facility] Comprehensive metabolic 2000 panelon 06-02-2023 Albumin [Mass/Vol] 3.6 g/dL Low 3.9-4.9 [facility] Comment on above: Order Comment: Brit galaviz Type: BLOOD SPECIMENOrdering Facility: [facility] Address: [address] [place] [address] Performed By: #### 1 9123-9, ####[facility] [facility] LABORATORYCLIA [id number] [place] [address] [place] ALP [Catalytic activity/Vol] 84 U/L Normal 38-113 [facility] Comment on above: Order Comment: Brit galaviz Type: BLOOD SPECIMENOrdering Facility: [facility] Address: [address] [place] [address] Performed By: #### 1 , ####COLÓN LABORATORYCLIA [id number] [place] [address] [place] ALT [Catalytic activity/Vol] 39 U/L Normal 10-54 [facility] Comment on above: Order Comment: Speci men Type: BLOOD SPECIMENOrdering Facility: [facility] Address: [address] [place] [address] Performed By: #### 1 9, ####COLÓN LABORATORYCLIA [id number] [place] [address] [place] Anion gap [Moles/Vol] 8 mmol/L Low 9-18 [facility] Comment on above: Order Comment: Speci men Type: BLOOD SPECIMENOrdering Facility: [facility] Address: [address] [place] [address] Performed By: #### 1 9, ####COLÓN LABORATORYCLIA [id number] [address] [place] AST [Catalytic activity/Vol] 21 U/L Normal 14-40 [facility] Comment on above: Order Comment: Speci men Type: BLOOD SPECIMENOrdering Facility: [facility] Address: [address] [place] [address] Performed By: #### 1 9123-01, ####COLÓN LABORATORYCLIA [id number] [address] [place] Bilirubin [Mass/Vol] 0.4 mg/dL Normal 0.2-1.3 [facility] Comment on above: Order Comment: Speci men Type: BLOOD SPECIMENOrdering Facility: [facility] Address: [address] [place] [address] Performed By: #### 1 9123-01, ####COLÓN LABORATORYCLIA [id number] [address] STATES OF [facility] Calcium [Mass/Vol] 8.8 mg/dL Normal 8.5-10.2 [facility] Comment on above: Order Comment: Speci men Type: BLOOD SPECIMENOrdering Facility: [facility] Address: [address] [place] [address] Performed By: #### 1 9123-9, 50428-8 ####COLÓN LABORATORYCLIA [id number] [place] [address] [place] Chloride [Moles/Vol] 103 mmol/L Normal 97-105 [facility] Comment on above: Order Comment: Speci men Type: BLOOD SPECIMENOrdering Facility: [facility] Address: [address] [place] [address] Performed By: #### 1 9123-9, 37066-9 ####COLÓN LABORATORYCLIA [id number] [place] [id number] [place] CO2 [Moles/Vol] 29 mmol/L Normal 22-30 [facility] Comment on above: Order Comment: Speci men Type: BLOOD SPECIMENOrdering Facility: [facility] Address: [address] [place] [address] Performed By: #### 1 9123-9, 86242-2 ####COLÓN LABORATORYCLIA [id number] [place] [address] [place] Creatinine [Mass/Vol] 1.04 mg/dL Normal 0.73-1.22 [facility] Comment on above: Order Comment: Speci men Type: BLOOD SPECIMENOrdering Facility: [facility] Address: [address] [place] [address] Performed By: #### 1 9123-9, ####COLÓN LABORATORYCLIA [id number] [address] Creatinine and Glomerular filtration rate.predicted panel (S/P/Bld) 90 mL/min/1.73m??? Normal >=60 [facility] Comment on above: Order Comment: Speci men Type: BLOOD SPECIMENOrdering Facility: [facility] Address: [address] [place] [address] Result Comment: Gladis mated Glomerular Filtration Rate (eGFR) is calculated using the 2020 CKD-EPI creatinine equation. This equation utilizes serum creatinine, sex, and age as parameters. The creatinine assay has traceable calibration to isotope dilution-mass spectrometry. Refer to KDIGO guidelines for clinical interpretation. In patients with unstable renal function, e.g. those with acute kidney injury, the eGFR may not accurately reflect actual GFR. Performed By: #### 1 9123-9, ####COLÓN LABORATORYCLIA [id number] [place] [address] [place] Glucose [Mass/Vol] 87 mg/dL Normal 74-99 [facility] Comment on above: Order Comment: Brit galaviz Type: BLOOD SPECIMENOrdering Facility: [facility] Address: [address] [place] [address] Result Comment: The [place] Diabetes Association (ADA) provides guidance for cutoff values for fasting glucose and random glucose. The ADA defines fasting as no caloric intake for at least 8 hours. Fasting plasma glucose results between 100 to 125 mg/dL indicate increased risk for diabetes (prediabetes). Fasting plasma glucose results greater than or equal to 126 mg/dL meet the criteria for diagnosis of diabetes. In the absence of unequivocal hyperglycemia, results should be confirmed by repeat testing. In a patient with classic symptoms of hyperglycemia or hyperglycemic crisis, random plasma glucose results greater than or equal to 200 mg/dL meet the criteria for diagnosis of diabetes. Reference: Standards of Medical Care in Diabetes 2016, [place] Diabetes Association. Diabetes Care. 2016.39(Suppl 1). Performed By: #### 1 9123-9, ####COLÓN LABORATORYCLIA [id number] [place] [address] [place] Potassium [Moles/Vol] 3.7 mmol/L Normal 3.7-5.1 [facility] Comment on above: Order Comment: Brit galaviz Type: BLOOD SPECIMENOrdering Facility: [facility] Address: [address] [place] [address] Performed By: #### 1 239, ####COLÓN LABORATORYCLIA [id number] [place] [id number] [place] Protein [Mass/Vol] 5.9 g/dL Low 6.3-8.0 [facility] Comment on above: Order Comment: Brit galaviz Type: BLOOD SPECIMENOrdering Facility: [facility] Address: [address] [place] [address] Performed By: #### 1 91239, ####COLÓN LABORATORYCLIA [id number] [address] [place] Sodium [Moles/Vol] 140 mmol/L Normal 136-144 [facility] Comment on above: Order Comment: Brit galaviz Type: BLOOD SPECIMENOrdering Facility: [facility] Address: [address] [place] [address] Performed By: #### 1 9123-9, 56628-4 ####COLÓN LABORATORYCLIA [id number] [place] [address] [place] Urea nitrogen [Mass/Vol] 10 mg/dL Normal 9-24 [facility] Comment on above: Order Comment: Brit galaviz Type: BLOOD SPECIMENOrdering Facility: [facility] Address: [address] [place] [address] Performed By: #### 1 9123-9, 25006-9 ####COLÓN LABORATORYCLIA [id number] [address] [place] HbA1c (Bld)on 06-02-2023 Average glucose Estimated from glycated hemoglobin (Bld) [Mass/Vol] 117 mg/dL Normal [facility] Comment on above: Order Comment: Brit galaviz Type: BLOOD SPECIMENOrdering Facility: [facility] Address: [address] [place] [address] Result Comment: eAG: (Estimated average glucose) is a calculated value from HgbA1c and is client account representative of the average blood glucose level in the last 2-3 month period. Performed By: #### 5 5454-3 ####[facility] LABCLIA [id number] [facility] [place] [address] [place] HbA1c (Bld) [Mass fraction] 5.7 % High 4.3-5.6 [facility] Comment on above: Order Comment: Brit [facility] Type: BLOOD SPECIMENOrdering Facility: [facility] Address: [address] [place] [address] Result Comment: [place] Diabetes Association guidelines indicate that patients with HgbA1c in the range 5.7-6.4% are at increased risk for development of diabetes, and intervention by lifestyle modification may be beneficial. HgbA1c greater or equal to 6.5% is considered diagnostic of diabetes. Performed By: #### 5 5454-3 ####[facility] LABCLIA [id number] [place] [id number] [place] MYCOPLASMA PNEUM PCRon 06-02 MYCOPLASMA PNEUM PCR SPECIMEN SOURCE (MYCPCR): Sputum MYCOPLASMA PNEUM DNA: Not Detected NOT DETECTED - A negative result does not rule out the presence of PCR inhibitors in the patient specimen or assay specific nucleic acid in concentrations below the level of detection by the assay. INTERPRETIVE INFORMATION: Mycoplasma pneumoniae by PCR This test was developed and its performance characteristics determined by [facility]. It has not been cleared or approved by the [place] Food and Drug Administration. This test was performed in a CLIA certified laboratory and is intended for clinical purposes. Performed By: [facility] [address] [place] [address] Rolfer: Mal Hooker MD, PhD CLIA Number: [id number] Normal [facility] Comment on above: Performed By: #### M YCPCR ####[facility] LABORATORIESCLIA [id number] [place] [id number] Magnesium SerPl-mCncon 06-02 Magnesium [Mass/Vol] 2.2 mg/dL Normal 1.7-2.3 [facility] Comment on above: Order Comment: Speci men Type: BLOOD SPECIMENOrdering Facility: [facility] Address: [address] [place] [address] Performed By: #### 1 9123-9, 18167-0 ####[facility] LABORATORYCLIA [id number] [place] [address] [place] STAPH AUREUS PCRon S. aureus and MRSA panel JUDITH+probe (Nose) Normal Negative [facility] Comment on above: Order Comment: Speci men Type: [facility] OF INTERNAL NOSEOrdering Facility: [facility] Address: [address] [place] [address] Result Comment: Nega tive for Staphylococcus aureus by PCR. Negative for MRSA by PCR Performed By: #### S APCR ####[facility] LABCLIA [id number] [place] [address] [place] ALLIED HEALTHon 06-01-2023 ALLIED HEALTH HNO ID: [id number] Author: ALEXANDREA ROBERTO, pneumatic systems operator Service: Radiology Author Type: Bottle Tester Type: Allied Health Filed: 06/01/2023 08:15 Note Text: Radiology Service Progress Note PATIENT NAME: Tate Baltazar DATE OF SERVICE: June 01, 2023 TIME: 8:03 AM PATIENT IDENTITY VERIFICATION COMPLETED USING TWO (2) IDENTIFIERS: Name and Date of confirmed by patient verbally and Name and Date of confirmed by identification band. FALL SCREENING: Has the patient had 2 falls in the last year or 1 fall with injury or currently using an Ambulatory Assistive Device (Walker, Cane, Wheelchair, Crutches, etc.)? No PATIENT GENDER DATA: Male PATIENT RELEVANT IMPLANT DATA REVIEWED: Yes RADIOLOGY DEPARTMENT: MR; Exam(s) Completed: Head: Routine Brain PERIPHERAL IV DATA: Not applicable SIGNED BY: Alexandrea Roberto pneumatic systems operator June 01, 2023 8:03 AM Normal [facility] CBC W Auto Differential pane l (Bld)on 06-01-2023 Basophils (Bld) [#/Vol] 0.03 10*3/uL Normal <0.11 [facility] Comment on above: Order Comment: Speci men Type: BLOOD SPECIMENOrdering Facility: [facility] Address: [address] [place] [address] Performed By: #### 5 7021-8 ####[facility] LABORATORYCLIA [id number] [place] [address] [place] Basophils/100 WBC (Bld) 0.4 % Normal [facility] Comment on above: Order Comment: Speci men Type: BLOOD SPECIMENOrdering Facility: [facility] Address: [address] [place] [address] Performed By: #### 5 7021-8 ####[facility] LABORATORYCLIA [id number] [place] [address] [place] Differential cell count method Nom (Bld) Auto Normal [facility] Comment on above: Order Comment: Speci men Type: BLOOD SPECIMENOrdering Facility: [facility] Address: [address] [place] [address] Performed By: #### 5 7021-8 ####[facility] LABORATORYCLIA [id number] [address] [place] Eosinophils (Bld) [#/Vol] 0.04 10*3/uL Normal <0.46 [facility] Comment on above: Order Comment: Speci men Type: BLOOD SPECIMENOrdering Facility: [facility] Address: [address] [place] [address] Performed By: #### 5 7021-8 ####[facility] LABORATORYCLIA [id number] [address] Eosinophils/100 WBC (Bld) 0.5 % Normal [facility] Comment on above: Order Comment: Speci men Type: BLOOD SPECIMENOrdering Facility: [facility] Address: [address] [place] [address] Performed By: #### 5 7021-8 ####[facility] LABORATORYCLIA [id number] [address] [place] Erythrocyte distribution width (RBC) [Ratio] 13.5 % Normal 11.5-15.0 [facility] Comment on above: Order Comment: Speci men Type: BLOOD SPECIMENOrdering Facility: [facility] Address: [address] [place] [address] Performed By: #### 5 7021-8 ####[facility] LABORATORYCLIA [id number] [address] [place] Hematocrit (Bld) [Volume fraction] 37.2 % Low 39.0-51.0 [facility] Comment on above: Order Comment: Speci men Type: BLOOD SPECIMENOrdering Facility: [facility] Address: [address] [place] [address] Performed By: #### 5 7021-8 ####[facility] LABORATORYCLIA [id number] [address] [place] Hemoglobin (Bld) [Mass/Vol] 12.4 g/dL Low 13.0-17.0 [facility] Comment on above: Order Comment: Speci men Type: BLOOD SPECIMENOrdering Facility: [facility] Address: [address] [place] [address] Performed By: #### 5 7021-8 ####[facility] LABORATORYCLIA [id number] [address] Immature granulocytes (Bld) [#/Vol] 0.08 10*3/uL Normal <0.10 [facility] Comment on above: Order Comment: Speci men Type: BLOOD SPECIMENOrdering Facility: [facility] Address: [address] [place] [address] Performed By: #### 5 7021-8 ####[facility] LABORATORYCLIA [id number] [address] Immature granulocytes/100 WBC (Bld) 0.9 % Normal [facility] Comment on above: Order Comment: Speci men Type: BLOOD SPECIMENOrdering Facility: [facility] Address: [address] [place] [address] Performed By: #### 5 7021-8 ####[facility] LABORATORYCLIA [id number] [address] [place] Lymphocytes (Bld) [#/Vol] 2.07 10*3/uL Normal 1.00-4.00 [facility] Comment on above: Order Comment: Speci men Type: BLOOD SPECIMENOrdering Facility: [facility] Address: [address] [place] [address] Performed By: #### 5 7021-8 ####[facility] LABORATORYCLIA [id number] [address] Lymphocytes/100 WBC (Bld) 24.5 % Normal [facility] Comment on above: Order Comment: Speci men Type: BLOOD SPECIMENOrdering Facility: [facility] Address: [address] [place] [address] Performed By: #### 5 7021-8 ####[facility] LABORATORYCLIA [id number] [address] MCH (RBC) [Entitic mass] 29.2 pg Normal 26.0-34.0 [facility] Comment on above: Order Comment: Speci men Type: BLOOD SPECIMENOrdering Facility: [facility] Address: [address] [place] [address] Performed By: #### 5 7021-8 ####[facility] LABORATORYCLIA [id number] [address] [place] [facility] MCHC (RBC) [Mass/Vol] 33.3 g/dL Normal 30.5-36.0 [facility] Comment on above: Order Comment: Speci men Type: BLOOD SPECIMENOrdering Facility: [facility] Address: [address] [place] [address] Performed By: #### 5 7021-8 ####[facility] LABORATORYCLIA [id number] [address] MCV (RBC) [Entitic vol] 87.7 fL Normal 80.0-100.0 [facility] Comment on above: Order Comment: Speci men Type: BLOOD SPECIMENOrdering Facility: [facility] Address: [address] [place] [address] Performed By: #### 5 7021-8 ####[facility] LABORATORYCLIA [id number] [place] [address] [place] Monocytes (Bld) [#/Vol] 0.60 10*3/uL Normal <0.87 [facility] Comment on above: Order Comment: Speci men Type: BLOOD SPECIMENOrdering Facility: [facility] Address: [address] [place] [address] Performed By: #### 5 7021-8 ####[facility] LABORATORYCLIA [id number] [address] Monocytes/100 WBC (Bld) 7.1 % Normal [facility] Comment on above: Order Comment: Speci men Type: BLOOD SPECIMENOrdering Facility: [facility] Address: [address] [place] [address] Performed By: #### 5 7021-8 ####[facility] LABORATORYCLIA [id number] [place] [address] [place] Neutrophils (Bld) [#/Vol] 5.62 10*3/uL Normal 1.45-7.50 [facility] Comment on above: Order Comment: Speci men Type: BLOOD SPECIMENOrdering Facility: [facility] Address: [address] [place] [address] Performed By: #### 5 7021-8 ####[facility] LABORATORYCLIA [id number] [place] [address] [place] Neutrophils/100 WBC (Bld) 66.6 % Normal [facility] Comment on above: Order Comment: Speci men Type: BLOOD SPECIMENOrdering Facility: [facility] Address: [address] [place] [address] Performed By: #### 5 7021-8 ####[facility] LABORATORYCLIA [id number] [place] [address] [place] Nucleated RBC (Bld) [#/Vol] 10*3/uL Normal <0.01 [facility] Comment on above: Order Comment: Speci men Type: BLOOD SPECIMENOrdering Facility: [facility] Address: [address] [place] [address] Performed By: #### 5 7021-8 ####[facility] LABORATORYCLIA [id number] [place] [address] [place] Nucleated RBC/100 WBC (Bld) [Ratio] 0.0 /100 WBC Normal [facility] Comment on above: Order Comment: Speci men Type: BLOOD SPECIMENOrdering Facility: [facility] Address: [address] [place] [address] Performed By: #### 5 7021-8 ####[facility] LABORATORYCLIA [id number] [place] [address] [place] Platelet mean volume (Bld) [Entitic vol] 9.9 fL Normal 9.0-12.7 [facility] Comment on above: Order Comment: Speci men Type: BLOOD SPECIMENOrdering Facility: [facility] Address: [address] [place] [address] Performed By: #### 5 7021-8 ####[facility] LABORATORYCLIA [id number] [place] [address] [place] Platelets (Bld) [#/Vol] 254 10*3/uL Normal 150-400 [facility] Comment on above: Order Comment: Speci men Type: BLOOD SPECIMENOrdering Facility: [facility] Address: [address] [place] [address] Performed By: #### 5 7021-8 ####[facility] LABORATORYCLIA [id number] [place] [address] [place] RBC (Bld) [#/Vol] 4.24 10*6/uL Normal 4.20-6.00 [facility] Comment on above: Order Comment: Speci men Type: BLOOD SPECIMENOrdering Facility: [facility] Address: [address] [place] [address] Performed By: #### 5 7021-8 ####[facility] LABORATORYCLIA [id number] [place] [address] [facility] [place] WBC (Bld) [#/Vol] 8.44 10*3/uL Normal 3.70-11.00 [facility] Comment on above: Order Comment: Speci men Type: BLOOD SPECIMENOrdering Facility: [facility] Address: [address] [place] [address] Performed By: #### 5 7021-8 ####[facility] LABORATORYCLIA [id number] [place] [id number] [facility] CONSULTon 06-01-2023 CONSULT HNO ID: [id number] Author: REAL HIGGINS PA-C Service: Neurology General Author Type: Physician Environmental Programs Specialist Type: Consults Filed: 06/01/2023 11:07 Note Text: TELENEUROLOGY VISIT - NEW CONSULTATION Name and :Tate Baltazar 1975 Patient consented to teleneurology visit on order for consult. New Patient: I'm Real Higgins PA-C , I'm a licensed in the [facility]. I want to confirm your location in [place]. Virtual visits are a convenient way for us to meet for the first time, but there are some situations in which an in-person evaluation may be required at a later time. I want to check in to confirm your consent to be seen virtually today. The Teleneurologist or CADEN is available from 8 am to 5 pm on weekdays. On weekends, at [place] [facility] [place], the Teleneurologist or CADEN is available from 8 am to 5 pm, [facility] 8 am to 12 pm, [place] 1 pm to 5 pm, [place] 8 am to 12 pm, [place] 1 pm to 5 pm. Statutory holidays do not have teleneuro coverage. [facility]: During Off hours for Teleneurology please page (not call) [facility] [phone] cosmetic sales consultant for concerns. [place]: During Off hours for Teleneurology please page (not call) [facility] [phone] cosmetic sales consultant for concerns. [facility]: There is no off-hours coverage for Teleneurology. Name: Tate Baltazar Age: [age] year old Gender: male Chief Complaint:No chief complaint on file. Admission Date: 06/01/2023 Consult Requested By: Shannon Rodriguez, recommendations will be communicated by shared medical record. 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 Neurology consulted for migraines, fall with LOC, and dizziness. Per admitting note: This is a 48 year old male with PMHx of HTN, JANNETTE, GERD, hx CVA with residual right hemiparesis who presents with numerous falls since 05/29/23 with associated dizziness, weakness, CUMMINGS, back/neck/shoulder pain. Patient states that he had a significant global headache that is rated 9/10 described as throbbing, worse on the posterior aspect and left side of his head where he had direct hits upon falling. Endorses blurry vision, vertigo, nausea, 1 episode of vomiting at 4 PM yesterday. Patient endorses chest pain described as tightness/cramping that occurs intermittently when his potassium levels are low. Patient states he feels weakness in his knees with episodes of spasming and locking, right more sothe left, which has led to numerous falls. Patient endorses chronic right shoulder pain. Denies shortness of breath, diarrhea, constipation, dysuria, lower extremity edema. [place] [facility] Course: Afebrile, hypertensive with BP 159/99, tachycardic with HR 115, RR 20 with SpO2 96% on RA. CBC with differential significant for ANC of 8.58, otherwise normal. CMP with hypoproteinemia (protein 6.0), elevated glucose 165, otherwise normal. Lipase normal. High-sensitivity troponin normal. Tox screen negative, negative alcohol/ethanol, salicylate, acetaminophen levels. UA within normal limits. COVID/Flu/RSV negative. EKG with sinus tachycardia, minimal voltage criteria for LVH, nonspecific ST abnormality; no significant change when compared to October 2017. CXR demonstrates small area of opacity in the left midlung field may represent infiltrate, atelectasis, contusion, among other etiologies. X-ray pelvis with no acute findings. X-ray lumbar spine with no evidence of lumbar spine fracture. X-ray shoulder with no acute findings in the right shoulder. CT brain without IV contrast with no acute intracranial process. CT C-spine without IV contrast with no acute cervical C-spine fracture. CT chest with IV contrast demonstrates right upper lobe groundglass attenuation; in the setting of trauma pulmonary contusion should be considered, although this is a more expected appearance of lobar pneumonia. Patient given 2 L normal saline bolus, Benadryl, Zofran, Toradol, Tylenol, magnesium, started on Zithromax and Rocephin. Patient admitted to [facility] under the hospital medicine service for management of suspected pneumonia. Workup thus far: MRI brain: unremarkable Headaches: History of migraines. Currently has photophobia. Has had migraines since he can remember. Has tried Botox and Ajovy. Has had headache intractable since Thursday. Was several days into prednisone Dosepak when he was hospitalized. No positional headache. Headache is a little different in that it typically is in that he is experiencing less nausea and headaches typically respond to headache cocktail which did not. He was found to have left V2 facial numbness but reports this is chronic problem since the age of [age] years old. Had blurred vision following fall Thursday but this has since improved. No fevers, chills. No doubl (more content not included)... Normal [facility] Comprehensive metabolic 2000 panelon 06-01-2023 Albumin [Mass/Vol] 3.6 g/dL Low 3.9-4.9 [facility] Comment on above: Order Comment: Speci men Type: BLOOD SPECIMENOrdering Facility: [facility] Address: [address] [place] [address] [place] [address] Performed By: #### 3 3959-8, LIPNF, 39075-7, 65924-4 ####[facility] LABORATORYCLIA [id number] [place] [address] [place] ALP [Catalytic activity/Vol] 74 U/L Normal 38-113 [facility] Comment on above: Order Comment: Speci men Type: BLOOD SPECIMENOrdering Facility: [facility] Address: [address] [place] [address] Performed By: #### 3 3959-8, LIPNF, 91114-7, 73930-6 ####[facility] LABORATORYCLIA [id number] [place] [address] [place] ALT [Catalytic activity/Vol] 35 U/L Normal 10-54 [facility] Comment on above: Order Comment: Speci men Type: BLOOD SPECIMENOrdering Facility: [facility] Address: [address] [place] [address] Performed By: #### 3 3959-8, LIPNF, 76629-7, 49246-3 ####[facility] LABORATORYCLIA [id number] [place] [address] [place] [facility] Anion gap [Moles/Vol] 8 mmol/L Low 9-18 [facility] Comment on above: Order Comment: Speci men Type: BLOOD SPECIMENOrdering Facility: [facility] Address: [address] [place] [address] Performed By: #### 3 3959-8, LIPNF, 33558-1, 07958-1 ####[facility] LABORATORYCLIA [id number] [address] [place] AST [Catalytic activity/Vol] 17 U/L Normal 14-40 [facility] Comment on above: Order Comment: Speci men Type: BLOOD SPECIMENOrdering Facility: [facility] Address: [address] [place] [address] Performed By: #### 3 3959-8, LIPNF, 68690-2, 95787-5 ####[facility] LABORATORYCLIA [id number] [address] [place] Bilirubin [Mass/Vol] 0.6 mg/dL Normal 0.2-1.3 [facility] Comment on above: Order Comment: Speci men Type: BLOOD SPECIMENOrdering Facility: [facility] Address: [address] [place] [address] Performed By: #### 3 3959-8, LIPNF, 04597-7, 69573-6 ####[facility] LABORATORYCLIA [id number] [place] [address] [place] Calcium [Mass/Vol] 8.3 mg/dL Low 8.5-10.2 [facility] Comment on above: Order Comment: Speci men Type: BLOOD SPECIMENOrdering Facility: [facility] Address: [address] [place] [address] Performed By: #### 3 3959-8, LIPNF, 50575-2, 02970-1 ####[facility] LABORATORYCLIA [id number] [place] [address] [place] Chloride [Moles/Vol] 107 mmol/L High 97-105 [facility] Comment on above: Order Comment: Speci men Type: BLOOD SPECIMENOrdering Facility: [facility] Address: [address] [place] [address] Performed By: #### 3 3959-8, LIPNF, 73826-7, ####[facility] LABORATORYCLIA [id number] [place] [address] [place] CO2 [Moles/Vol] 29 mmol/L Normal 22-30 [facility] Comment on above: Order Comment: Speci men Type: BLOOD SPECIMENOrdering Facility: [facility] Address: [address] [place] [address] Performed By: #### 3 3959-8, LIPNF, 50443-2, 84783-2 ####[facility] LABORATORYCLIA [id number] [place] [address] [place] Creatinine [Mass/Vol] 0.96 mg/dL Normal 0.73-1.22 [facility] Comment on above: Order Comment: Speci men Type: BLOOD SPECIMENOrdering Facility: [facility] Address: [address] [place] [address] Performed By: #### 3 3959-8, LIPNF, 13820-2, 34786-2 ####[facility] LABORATORYCLIA [id number] [place] [address] [place] Creatinine and Glomerular filtration rate.predicted panel (S/P/Bld) 99 mL/min/1.73m??? Normal >=60 [facility] Comment on above: Order Comment: Brit galaviz Type: BLOOD SPECIMENOrdering Facility: [facility] Address: [address] [place] [address] Result Comment: Gladis mated Glomerular Filtration Rate (eGFR) is calculated using the 2020 CKD-EPI creatinine equation. This equation utilizes serum creatinine, sex, and age as parameters. The creatinine assay has traceable calibration to isotope dilution-mass spectrometry. Refer to KDIGO guidelines for clinical interpretation. In patients with unstable renal function, e.g. those with acute kidney injury, the eGFR may not accurately reflect actual GFR. Performed By: #### 3 3959-8, LIPMEGAN, , ####[place] LABORATORYCLIA [id number] [place] [address] [place] Glucose [Mass/Vol] 87 mg/dL Normal 74-99 [facility] Comment on above: Order Comment: Brit galaviz Type: BLOOD SPECIMENOrdering Facility: [facility] Address: [address] [place] [address] Result Comment: The [place] Diabetes Association (ADA) provides guidance for cutoff values for fasting glucose and random glucose. The ADA defines fasting as no caloric intake for at least 8 hours. Fasting plasma glucose results between 100 to 125 mg/dL indicate increased risk for diabetes (prediabetes). Fasting plasma glucose results greater than or equal to 126 mg/dL meet the criteria for diagnosis of diabetes. In the absence of unequivocal hyperglycemia, results should be confirmed by repeat testing. In a patient with classic symptoms of hyperglycemia or hyperglycemic crisis, random plasma glucose results greater than or equal to 200 mg/dL meet the criteria for diagnosis of diabetes. Reference: Standards of Medical Care in Diabetes 2016, [place] Diabetes Association. Diabetes Care. 2016.39(Suppl 1). Performed By: #### 3 3959-8, LIPNF, , ####[place] [facility] LABORATORYCLIA [id number] [place] [id number] [place] Potassium [Moles/Vol] 4.0 mmol/L Normal 3.7-5.1 [facility] Comment on above: Order Comment: Speci men Type: BLOOD SPECIMENOrdering Facility: [facility] Address: [place] [address] Performed By: #### 3 3959-8, LIPNF, 79156-5, 69282-0 ####[facility] LABORATORYCLIA [id number] [address] [place] Protein [Mass/Vol] 5.6 g/dL Low 6.3-8.0 [facility] Comment on above: Order Comment: Speci men Type: BLOOD SPECIMENOrdering Facility: [facility] Address: [address] [place] [address] Performed By: #### 3 3959-8, LIPNF, 56670-5, 75321-7 ####[facility] LABORATORYCLIA [id number] [address] Sodium [Moles/Vol] 144 mmol/L Normal 136-144 [facility] Comment on above: Order Comment: Speci men Type: BLOOD SPECIMENOrdering Facility: [facility] Address: [address] [place] [address] Performed By: #### 3 3959-8, LIPNF, 55025-5, 04204-3 ####[facility] LABORATORYCLIA [id number] [address] [place] Urea nitrogen [Mass/Vol] 9 mg/dL Normal 9-24 [facility] Comment on above: Order Comment: Speci men Type: BLOOD SPECIMENOrdering Facility: [facility] Address: [address] [place] [address] Performed By: #### 3 3959-8, LIPNF, 07742-1, 27073-2 ####[facility] LABORATORYCLIA [id number] [address] [place] HISTORY PHYSICALon HISTORY PHYSICAL HNO ID: [id number] Author: MIREYA NEGRON PA-C Service: Hospital Medicine Author Type: Physician Environmental Programs Specialist Type: H&P Filed: 06/01/2023 06:57 Note Text: Attestation signed by Dora Das MD at 06/01/2023 7:04 AM Reviewed the history and physical examination of the patient and discussed the management with the CADEN. I reviewed the note and agree with the documented findings and plan of care. Dora Das MD Department of Hospital Medicine DATE: June 01, 2023 TIME: 7:04 AM DEPARTMENT OF HOSPITAL MEDICINE HISTORY AND PHYSICAL EXAM SERVICE DATE: 06/01/2023 Code Status: Not on file SERVICE TIME: 4:06 AM Primary Care Physician: Lanette Harkins DO NIGHT AND WEEKEND COVERAGE: [place] COVERAGE: Days: [phone], please page attending physician. Nights: [phone], please page [facility] Night coverage pager [phone]. Subjective CHIEF COMPLAINT: fall with CUMMINGS, dizzniess HPI: This is a 48 year old male with PMHx of HTN, JANNETTE, GERD, hx CVA with residual right hemiparesis who presents with numerous falls since 05/29/23 with associated dizziness, weakness, CUMMINGS, back/neck/shoulder pain. Patient states that he had a significant global headache that is rated 9/10 described as throbbing, worse on the posterior aspect and left side of his head where he had direct hits upon falling. Endorses blurry vision, vertigo, nausea, 1 episode of vomiting at 4 PM yesterday. Patient endorses chest pain described as tightness/cramping that occurs intermittently when his potassium levels are low. Patient states he feels weakness in his knees with episodes of spasming and locking, right more so the left, which has led to numerous falls. Patient endorses chronic right shoulder pain. Denies shortness of breath, diarrhea, constipation, dysuria, lower extremity edema. [place] [facility] Course: Afebrile, hypertensive with BP 159/99, tachycardic with HR 115, RR 20 with SpO2 96% on RA. CBC with differential significant for ANC of 8.58, otherwise normal. CMP with hypoproteinemia (protein 6.0), elevated glucose 165, otherwise normal. Lipase normal. High-sensitivity troponin normal. Tox screen negative, negative alcohol/ethanol, salicylate, acetaminophen levels. UA within normal limits. COVID/Flu/RSV negative. EKG with sinus tachycardia, minimal voltage criteria for LVH, nonspecific ST abnormality; no significant change when compared to October 2017. CXR demonstrates small area of opacity in the left midlung field may represent infiltrate, atelectasis, contusion, among other etiologies. X-ray pelvis with no acute findings. X-ray lumbar spine with no evidence of lumbar spine fracture. X-ray shoulder with no acute findings in the right shoulder. CT brain without IV contrast with no acute intracranial process. CT C-spine without IV contrast with no acute cervical C-spine fracture. CT chest with IV contrast demonstrates right upper lobe groundglass attenuation; in the setting of trauma pulmonary contusion should be considered, although this is a more expected appearance of lobar pneumonia. Patient given 2 L normal saline bolus, Benadryl, Zofran, Toradol, Tylenol, magnesium, started on Zithromax and Rocephin. Patient admitted to [facility] under the hospital medicine service for management of suspected pneumonia. PAST MEDICAL HISTORY Diagnosis Date Back pain Depression Dysphagia due to recent stroke 10/20/2017 Hypertension Migraines 2001 JANNETTE (obstructive sleep apnea) 03/17/2019 Other chronic pain 05/20/2022 RSD lower limb right leg RSD upper limb right hand Stroke due to intracerebral hemorrhage (HCC) 2018 Had an additional stroke at age 25 PAST SURGICAL HISTORY Procedure Laterality Date APPENDECTOMY CARPAL TUNNEL Left 2014 COLONOSCOPY 20's with EGD EGD TRANSORAL BIOPSY SINGLE/MULTIPLE 10/02/2015 EXCISION PILONIDAL CYST/SINUS EXTENSIVE 07/05/2010 closed ORTHOPEDICS SURGERY HX Right 12/2022 Right ROTATOR cUFF PAST SURGICAL HISTORY OF right knee surgery TONSILLECTOMY PRIMARY/SECONDARY Tonsillectomy VASECTOMY UNI/BI SPX W/POSTOP SEMEN EXAMS Bilateral 05/23/2016 FAMILY HISTORY Problem Relation Age of Onset Prostate Cancer Father Hypertension Father Social History Tobacco Use Smoking status: Never Passive exposure: Never Smokeless tobacco: Never Vaping Use Vaping Use: Never used Substance Use Topics Alcohol use: Yes Comment: OCCASIONAL Drug use: No PRIOR TO ADMISSION MEDICATIONS: tamsulosin (FLOMAX) 0.4 mg, Take 0.4 mg by mouth once daily., Disp: , Rfl: lidocaine (LIDODERM) 5 %, Apply 1 Patch as directed as directed. Apply 1 patch for 12 hours then remove for 12 hours, Disp: 30 Patch, Rfl: 2 gabapentin (NEURONTIN) 600 mg tablet, Take 1 tablet by mouth three times a day for 90 days., Disp: (more content not included)... Normal [facility] LIPID PANEL, NONFASTINGon Cholesterol [Mass/Vol] 119 mg/dL Normal <200 [facility] Comment on above: Order Comment: Speci men Type: BLOOD SPECIMENOrdering Facility: [facility] Address: [address] [place] [address] Result Comment: <200 mg/dL, Desirable 200-239 mg/dL, Borderline high >239 mg/dL, High Performed By: #### 3 3959-8, LIPNF, 01840-0, 21362-6 ####[facility]ORATORYCLIA [id number] [address] HDL CHOLESTEROL, NF 38 mg/dL Low >39 [facility] Comment on above: Order Comment: Spec men Type: BLOOD SPECIMENOrdering Facility: [facility] Address: [address] [place] [address] Result Comment: 40-5 9 mg/dL, Acceptable >59 mg/dL, High: Negative risk factor for coronary heart disease <40 mg/dL, Low: Positive risk factor for coronary heart disease Performed By: #### 3 3959-8, LIPNF, 95353-9, 37337-6 ####[facility] LABORATORYCLIA [id number] [address] LDL CHOLESTEROL, NF 70 mg/dL Normal <100 [facility] Comment on above: Order Comment: Speci men Type: BLOOD SPECIMENOrdering Facility: [facility] Address: [address] [place] [address] Result Comment: <100 mg/dL, Optimal 100-129 mg/dL, Near optimal/above optimal 130-159 mg/dL, Borderline high 160-189 mg/dL, High >189 mg/dL, Very high Secondary prevention optimal LDL Cholesterol levels are recommended to be < 70 mg/dL Performed By: #### 3 3959-8, LIPNF, 00163-8, 80264-7 ####[facility]ORATORYCLIA [id number] [address] LDL/HDL RATIO, NF 1.84 mg/dL Normal <2.54 [facility] Comment on above: Order Comment: Speci men Type: BLOOD SPECIMENOrdering Facility: [facility] Address: [address] [place] [address] Result Comment: Refe rence: 1. National Cholesterol Education Program ATP III Guideline At-A-Glance Quick Desk Reference: National Heart, Lung, and Blood [place]. National Institutes of Health. 2001: NIH Publication No. 01-3305. 2. An International Atherosclerosis Society position paper: global recommendations for the management of dyslipidemia: executive summary, Atherosclerosis. 2014: 232(2):410-413. Performed By: #### 3 3959-8, LIPNF, 32390-6, 40324-0 ####[facility] LABORATORYCLIA [id number] [address] NON HDL CHOL, NF 81 mg/dL Normal <130 [facility] Comment on above: Order Comment: Brit galaviz Type: BLOOD SPECIMENOrdering Facility: [facility] Address: [address] [place] [address] Result Comment: <130 mg/dL, Optimal 130-159 mg/dL, Near optimal/above optimal 160-189 mg/dL, Borderline high 190-219 mg/dL, High >219 mg/dL, Very high Secondary prevention optimal non HDL Cholesterol levels are recommended to be <100 mg/dL Performed By: #### 3 3959-8, LIPNF, 00341-0, 69304-6 ####COL[facility] LABORATORYCLIA [id number] [place], [place] [id number] [place] [address] T CHOL/HDL RATIO NF 3.13 mg/dL Normal <5.10 [facility] Comment on above: Order Comment: Speci men Type: BLOOD SPECIMENOrdering Facility: [facility] Address: [address] [place] [address] Performed By: #### 3 3959-8, LIPNF, 32990-0, ####[facility] LABORATORYCLIA [id number] [address] TRIGLYCERIDES, NF 53 mg/dL Normal <150 [facility] Comment on above: Order Comment: Speci men Type: BLOOD SPECIMENOrdering Facility: [facility] Address: [address] [place] [address] Result Comment: <150 mg/dL, Normal 150-199 mg/dL, Borderline high 200-499 mg/dL, High >499 mg/dL, Very high Performed By: #### 3 3959-8, LIPNF, , ####[facility] LABORATORYCLIA [id number] [address] [place] VLDL CHOLESTEROL, NF 11 mg/dL Normal <30 [facility] Comment on above: Order Comment: Speci men Type: BLOOD SPECIMENOrdering Facility: [facility] Address: [address] [place] [address] Performed By: #### 3 3959-8, LIPNF, , ####[facility] LABORATORYCLIA [id number] [address] Legionella Ag Ur Qlon 2023 Legionella sp Ag Ql (U) Negative Normal Negative [facility] Comment on above: Order Comment: Speci men Type: URINE SPECIMENOrdering Facility: [facility] Address: [address] [place] [address] Result Comment: Legi onella urinary antigen test is used as an aid in diagnosis of infection with Legionella pneumophila serogroup 1. It may be detected from a few days to several months after onset of signs and symptoms despite antibiotic therapy or disease resolution. A negative result cannot exclude Legionellosis. Clinical correlation is required. Performed By: #### 3 2781-7 ####[facility] LABCLIA [id number] [facility] [id number] [place] MRI BRAIN WO IVCONon 024 MRI BRAIN WO IVCON * * *Final Report* * * DATE OF EXAM: Jun 01 2023 8:17AM [facility] 0294 - MRI BRAIN WO IVCON / PROCEDURE REASON: Transient ischemic attack (TIA) * * * * Physician Interpretation * * * * EXAMINATION: MRI BRAIN WO IVCON CLINICAL HISTORY: Transient ischemic attack (TIA) - Headache, persistent/atypical - Transient ischemic attack (TIA) - TECHNIQUE: Routine noncontrast MRI protocol including diffusion images. MQ: [id number] COMPARISON: CT brain 05/31/2023 and MRI brain 12/21/2017. RESULT: Acute Change: There is no evidence of restricted diffusion to suggest an acute infarct. Hemorrhage: Susceptibility artifact associated with the encephalomalacia/gliosis in the left lentiform nucleus, remote blood byproducts. Otherwise, no large intracranial hemorrhage Mass Lesion/ Mass Effect: No evidence of an intracranial mass or extra-axial fluid collection. No significant mass effect. Chronic Change: Scattered punctate foci of increased T2 and FLAIR signal are noted in the supratentorial white matter which is a nonspecific finding, but likely represents minimal chronic microvascular ischemia. Stable encephalomalacia/gliosis in the left lentiform nucleus extending to the adjacent internal capsule and left temporal stem. Remote bilateral parietal craniotomies. Parenchyma: No significant volume loss for age. Ventricles: Normal caliber and morphology. Skull Base: Hypothalamic and pituitary region are grossly normal. Craniocervical junction is normal. No significant marrow replacement process. Vasculature: Major intracranial arterial structures, and dural venous sinuses show typical flow void, suggesting patency by spin echo criteria. Other: Postsurgical findings related to paranasal sinus surgeries including bilateral maxillary antrostomies, partial turbinectomies, and partial ethmoidectomies. Mucosal thickening in the frontal sinuses, residual ethmoid air cells and bilateral maxillary sinuses, and bilateral sphenoid sinuses with superimposed multiple mucosal retention cysts in the bilateral maxillary sinuses. Mild left mastoid effusion. The orbits and extracranial soft tissues are unremarkable. IMPRESSION: No acute intracranial process. Wafer Cleaner: LALA Transcribe Date/Time: Jun 01 2023 8:19A Dictated by : HÉCTOR WILLARD DO This examination was interpreted and the report reviewed and electronically signed by: HÉCTOR WILLARD DO on Jun 01 2023 8:25AM EST [id number] Normal [facility] Magnesium SerPl-mCncon 06-01 Magnesium [Mass/Vol] 2.4 mg/dL High 1.7-2.3 [facility] Comment on above: Order Comment: Speci men Type: BLOOD SPECIMENOrdering Facility: [facility] Address: [address] [place] [address] Performed By: #### 3 3959-8, LIPMEGAN, 48027-8, 65957-7 ####[facility]ORATORYCLIA [id number] [address] Procalcitonin SerPl-mCncon 0 06-01-2023 Procalcitonin [Mass/Vol] 0.23 ng/mL High <0.09 [facility] Comment on above: Order Comment: Speci men Type: BLOOD SPECIMENOrdering Facility: [facility] Address: [address] [place] [address] Result Comment: For a guided interpretation of test results, please visit the Change in Procalcitonin Calculator, [email or web address]. Performed By: #### 3 3959-8, LIPNF, 80662-7, 49687-8 ####[facility]ORATORYCLIA [id number] [address] [place] STREPTOCOCCUS PNEUMONIAE AGo n 06-01-2023 STREPTOCOCCUS PNEUMONIAE AG STREP PNEUMO AG RESULT: Negative for Streptococcus pneumoniae antigen. Presumptive negative for pneumococcal pneumonia, suggesting no current or recent pneumococcal infection. Infection due to S.pneumoniae cannot be ruled out since the antigen present in the sample may be below the detection limit of the test. Normal [facility] Comment on above: Performed By: #### S PNAG ####[facility] LABCLIA [id number] [facility] [id number] [id number] [place] THERAPY NTon 06-01-2023 THERAPY NT HNO ID: [id number] Author: LUPE MATHEWS, OT/L Service: ? Author Type: Occupational Therapist Type: Therapy (PT/OT/Speech/Resp) Filed: 06/01/2023 13:39 Note Text: Occupational Therapy Evaluation SERVICE DATE: 06/01/2023 SERVICE TIME: 1316 to 1332 ROOM: [id number] Recommended Discharge Disposition: Home Anticipated Discharge Needs: Physical Assist at Home, Supervision at Home Physical Assist at Home for: Cleaning, Laundry, Meals, Self Care, Shopping, Transportation Supervision at Home due to: Other: See Comment (initially for optimal safety) Recommended Discharge Equipment: No equipment needs anticipated OT 6 Clicks Score: 20 Precautions/Activity Restrictions: Fall Risk, Lines/Tubes/Drains Current Hospital Course: Lobar PNA, contusion of R lung; Brain MRI (-) for acute abnormalities Reason for Hospital Admission: Fall, headache, dizziness Relevant Past Medical History: HTN, JANNETTE, GERD, CVA with residual R hemiparesis, depression, migraines, dysphagia, R rotator cuff sx Response to Therapy Interventions: Good Participation in Activities, On-Track to Achieve Discharge Goals Assessment Comments: Patient is AOx3, appears to be functioning near baseline with ADLs and mobility; Vitals WFL, pt reports no questions/concerns for d/c home Continued Skilled Needs Due to: Functional Impairment Occupational Therapy Problem List: Pain, Impaired Self Care, Decreased Activity Tolerance, Decreased Strength, Functional Mobility Impairment, Balance Impaired Cognition/Communication Deficits Orientation Deficits: (AOx3) Responsiveness: Alert, Awake Follows Commands: 2-step Commands Treatment Interventions: Education, Self Care/Home Management, Strengthening, Functional Mobility Training, Balance Training Plan for Next Visit: Fall Prevention, Sit to Stand Transfers, Standing Tolerance, Standing Balance Home Environment Patient Lives With: Family, Other: See Comment Comments: Spouse AND father Assistance Available: 24-Hour Entry To Home: Stairs, Without Rail Number Of Stairs Into Home: 3 Number Of Stairs To Bed/Bath: 12 (to shower, basement set up with half bath available) Stairs to Bed/Bath with: Unilateral Rail Tub/Shower Type: tub shower + grab bar Laundry: in basement, reports self completes Equipment Owned: Cane, Crutch(es), Grab Bars- Shower, Commode- Raised Prior Functional Level: Within Functional Limits, History of Falls Prior Functional Level Comments: Pt reports 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 Reports + driving, self medical management, and reports no use of AD MAINTENANCE HELPER however reports he was using a cane approx 20 years ago. Reports 5 falls leading to current admission stating, The doctor said I was falling because of walking pneumonia. Reports occasional falls at baseline. Reports chronic migraines. 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 Identified Strengths: Good Support System, Access to Healthcare, Follows Multi-Step Commands Identified Barriers: Medical Acuity/Chronic Condition Subjective: RN cleared to work with, patient pleasant and agreeable to this session CURRENT FUNCTIONAL STATUS: Most recent performance Current Activities of Daily Living Assist Level Additional Information Feeding Independent Grooming Contact Guard Assistance Bathing Upper Body Stand By Assistance Bathing Lower Body Contact Guard Assistance Dressing Upper Body Stand By Assistance Dressing Lower Body Contact Guard Assistance Toileting Contact Guard Assistance Instrumental Activities of Daily Living Assist Level Additional Information Meal/Beverage Prep Cleaning Laundry Medication Management with Strategies Functional Mobility Assist Level Additional Information Rolling Supine to Sit Stand By Assistance Sit to Supine Stand By Assistance Scooting Stand By Assistance Sit to Stand Contact Guard Assistance Stand to Sit Stand By Assistance Bed to Chair Toilet/Commode Shower Functional Mobility Contact Guard Assistance None (gait belt) Blank martinez indicate activity not attempted Balance: Static Sitting, Dynamic Sitting, Static Standing, Dynamic Standing Static Sitting Balance: Good Patient able to maintain balance without handhold support, limited postural sway Dynamic Sitting Balance: Fair Patient accepts minimal challenge, able to maintain balance while turning head/trunk Static Standing Balance: Good Patient able to maintain balance without handhold support, limited postural sway Dynamic Standing Balance: Fair Patient accepts minimal challenge, able to maintain balance while turning head/trunk Learning/Educational Needs: Discharge Plan, Family Education/Training, Functional (more content not included)... [facility] THERAPY NT HNO ID: [id number] Author: VICENTA HELMS, PT Service: Physical Therapy Author Type: Physical Therapist Type: Therapy (PT/OT/Speech/Resp) Filed: 06/01/2023 10:54 Note Text: Summary: PT Eval Physical Therapy Evaluation SERVICE DATE: 06/01/2023 SERVICE TIME: 1021 to 1044 ROOM: [place] [address] Recommended Discharge Disposition: Home PT Recommended Discharge Disposition Comments: Pt currently functioning below baseline. Pt presents with decreased ROM, decreased strength, impaired activity tolerance, impaired balance, and overall decreased funtional mobility. Pt would benefit from continued skilled services post acute stay to address deficits Anticipated Discharge Needs: Physical Assist at Home, Supervision at Home Physical Assist at Home for: Cleaning, Laundry, Meals, Transportation, Shopping Supervision at Home due to: Other: See Comment (Initially for optimal safety) Recommended Discharge Equipment: No equipment needs anticipated PT 6 Clicks Score: 21 Precautions/Activity Restrictions: Fall Risk, Lines/Tubes/Drains Reason for Hospital Admission: Headaches, multiple mechanical falls Response to Therapy Interventions: Good Participation in Activities, Improved Tolerance for Activity, On-Track to Achieve Discharge Goals, Multiple Ongoing Medical Issues, Requires Additional Time to Complete Activities Assessment Comments: Mildly unsteady throughout however no LOB or near LOB Continued Skilled Needs Due to: Family Training Required, Functional Mobility/Skill Impairments, Safety Concerns, Continued Monitoring of Vital Signs During Mobility Required Physical Therapy Problem List: Education Deficit, Safety Deficits, Impaired Self Care, Decreased Activity Tolerance, Decreased Range Of Motion, Decreased Strength, Functional Mobility Impairment, Balance Impaired Treatment Interventions: Education, Self Care / Home Management, Energy Conservation Training, Joint Mobility, Strengthening, Functional Mobility Training, Balance Training, Edema Management, Pain Management Plan for Next Visit: Bed Mobility, Chair Transfer Training, Gait Training, Exercise Instruction/Handout, Walker Training Home Environment Patient Lives With: Family, Other: See Comment Comments: Spouse AND father Assistance Available: 24-Hour Entry To Home: Stairs, Without Rail Number Of Stairs Into Home: 3 Number Of Stairs To Bed/Bath: 12 (to shower, basement set up with half bath available) Stairs to Bed/Bath with: Unilateral Rail Tub/Shower Type: tub shower + grab bar Laundry: in basement, reports self completes Equipment Owned: Cane, Crutch(es), Grab Bars- Shower Prior Functional Level: Within Functional Limits, History of Falls Prior Functional Level Comments: Pt reports 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 Reports 5 falls leading to current admission stating, The doctor said I was falling because of walking pneumonia. Reports occasional falls at baseline. Reports chornic migraines. Sleeps in flat bed, - working Subjective: Pt reports, I fell 5x at home. I have chronic migraines. Agreeable to PT, cleared with RN. Father present for physical therapy session. CURRENT FUNCTIONAL STATUS: Most recent performance Current Functional Mobility Assist Level Additional Information Rolling Supine to Sit Additional Information, Stand By Assistance HOB flat Sit to Supine Additional Information, Stand By Assistance HOB flat Scooting Stand By Assistance Sit to Stand Additional Information, Contact Guard Assistance from lowest bed height Stand to Sit Stand By Assistance Bed to Chair Toilet/Commode Gait Additional Information, Contact Guard Assistance Gait Device: None Gait Distance (feet): 2 X 100 Slow, reciprocating stepping pattern, mild unsteadiness noted, patient verbalizes mild dizziness, reaching occasionally for external support. Denies use of FWW upon home-going Stairs Contact Guard Assistance, Additional Information Stairs Device: Rail Number of Stairs: 10 Pt utilizes reciprocating stepping pattern for ascending and descending with unilateral rail Curb Step Car Transfer Blank martinez indicate activity not attempted Balance: Static Sitting, Dynamic Sitting, Dynamic Standing, Static Standing Static Sitting Balance: Good Patient able to maintain balance without handhold support, limited postural sway Dynamic Sitting Balance: Fair Patient accepts minimal challenge, able to maintain balance while turning head/trunk Static Standing Balance: Good Patient able to maintain balance without handhold support, limited postural sway Dynamic Standing Balance: Fair Patient accepts minimal challenge, able to (more content not included)... [facility] THERAPY NT HNO ID: [id number] Author: VICENTA HELMS, PT Service: Physical Therapy Author Type: Physical Therapist Type: Therapy (PT/OT/Speech/Resp) Filed: 06/01/2023 08:19 Note Text: Summary: PT MV PHYSICAL THERAPY MISSED VISIT SERVICE DATE: 06/01/2023 SERVICE TIME: 818 to 818 ROOM: [place] [address] ([facility]) Patient not seen due to Test / Procedure. Patient currently at MRI, will re-attempt as schedule allows and pt is medically appropriate to participate. SIGNATURE: Vicenta Helms PT PATIENT NAME: Tate Baltazar DATE: June 01, 2023 TIME: 8:19 AM [facility] US BLADDERon 04-30-2023 US BLADDER ORIGINAL EXAMINATION: ULTRASOUND OF THE URINARY [id number]/27/2023 11:59 am TECHNIQUE: Pre and postvoid imaging of the bladder. COMPARISON: None HISTORY: ORDERING SYSTEM PROVIDED HISTORY: Reason for Exam: Urinary frequency; incomplete bladder emptying FINDINGS: Bladder prevoid volume: 550 cc. There is no significant bladder wall thickening, mass or stone. No diverticulum.. Postvoid bladder volume: 148 cc. The prostate is mildly enlarged with volume of 30 cc. IMPRESSION: Large postvoid bladder residual. Interpreted by: Gee Story MD Preliminary Report By: Gee Story MD Electronically signed By Gee Story MD Dictated Date: 04/30/2023 6:46:38 PM Prelim Date: 04/30/2023 6:47:39 PM Sign Date: 04/30/2023 6:47:39 PM Ordering Provider: LANETTE HARKINS [facility] CNTHERAPYon 04-23-2023 CNTHERAPY OT/PT/Speech Visit ( PTMDRG) TATE BALTAZAR ([id number]) 1975 M Date Time Provider Department 04/23/23 10:45 AM FRANCHESCA LARSON PTMDRG Date Time Provider Department [place] 04/23/2023 10:45 AM [id number], SUSAN PTMDRG [facility] Reason for Visit: Physical Therapy [503] PT Discharge [752] Primary Visit Diagnosis:S/P right rotator cuff repair [Z98.890] Allergies As of Date: 04/23/2023 Noted Allergy Reaction HYDROCHLOROTHIAZIDE 05/18/2020 14 - Other: See Comments SULFAMETHOXAZOLE-TRIMETHOPRI M 03/26/2020 16 - Unknown 14 - Other: See Comments ACETAMINOPHEN 09/02/2022 14 - Other: See Comments Comments: Rebound headaches ACETAMINOPHEN-CODEINE 07/24/2021 16 - Unknown HYDROCODONE 09/25/2020 14 - Other: See Comments ORANGE JUICE 11/19/2021 16 - Unknown ORANGE OIL 08/07/2015 4 - Hives 14 - Other: See Comments PSEUDOEPHEDRINE 05/20/2021 16 - Unknown VICODIN (HYDROCODONE-ACETAMINOPHE* 1 - Mental Status Change 9 - Itching ARIPIPRAZOLE 02/22/2021 1 - Mental Status Change Date Reviewed: 04/06/2023 Reviewed by: Kisha Walters PA-C - Fully Assessed Prescriptions as of 11/12/2023 - cyclobenzaprine (FLEXERIL) 5 mg tablet Take 1 tablet by mouth three times a day as needed. - gabapentin (NEURONTIN) 600 mg tablet Take 1 tablet by mouth three times a day for 30 days. - atorvastatin (LIPITOR) 40 mg tablet 1 tablet by ORAL/FEEDING TUBE route daily at bedtime. - tamsulosin (FLOMAX) 0.4 mg Take 0.4 mg by mouth once daily. - lidocaine (LIDODERM) 5 % Apply 1 Patch as directed as directed. Apply 1 patch for 12 hours then remove for 12 hours - ondansetron orally disintegrating (ZOFRAN ODT) 4 mg disintegrating tablet Take 1 tablet by mouth every 8 hours as needed for nausea/vomiting. - docusate sodium (COLACE) 100 mg capsule Take 1 capsule by mouth twice daily. - naloxone 4 mg/actuation nasal spray (NARCAN) Use 1 spray in one nostril as needed for overdose. May repeat every 2 to 3 min in alternating nostrils until medical assistance is available - verapamil ER (VERELAN) 240 mg 24 hr capsule Take 240 mg by mouth once daily. - buPROPion XL (WELLBUTRIN XL) 300 mg 24 hr tablet TAKE 1 TABLET BY MOUTH EVERY 24 HOURS. REPLACES PREVIOUS PRESCRIPTION FOR BUPROPION 150 MG TABLET - valsartan (DIOVAN) 160 mg tablet Take 160 mg by mouth every morning. - cetirizine (ZYRTEC) 10 mg tablet Take 10 mg by mouth once daily. - AJOVY SYRINGE 225 mg/1.5 mL syringe - pantoprazole DR (PROTONIX) 40 mg tablet Take 40 mg by mouth twice daily. - potassium chloride ER (K-DUR, KLOR-CON) 20 mEq tablet Take 20 mEq by mouth twice daily. - NURTEC ODT 75 mg disintegrating tablet [facility] .GFRon 04-13-2023 GFR 68 ml/min/1.73sqm Normal [facility] ([place]) Comment on above: Result Comment: GFR Population mean for , Non- Americans Ages 20-29 = 116 mL/min/1.73 sq.m. Ages 30-39 = 107 mL/min/1.73 sq.m. Ages 40-49 = 99 mL/min/1.73 sq.m. Ages 50-59 = 93 mL/min/1.73 sq.m. Ages 60-69 = 85 mL/min/1.73 sq.m. Ages 70+ = 75 mL/min/1.73 sq.m. Chronic Kidney Disease: Less than 60 mL/min/1.73 square meters End Stage Renal Disease: Less than 15 mL/min/1.73 square meters Performed By: #### C MP, PSA, GFR #### [address] [address] GFR Non- 56 ml/min/1.73sqm Normal [facility] ([place]) Comment on above: Result Comment: GFR Population mean for , Non- Americans Ages 20-29 = 116 mL/min/1.73 sq.m. Ages 30-39 = 107 mL/min/1.73 sq.m. Ages 40-49 = 99 mL/min/1.73 sq.m. Ages 50-59 = 93 mL/min/1.73 sq.m. Ages 60-69 = 85 mL/min/1.73 sq.m. Ages 70+ = 75 mL/min/1.73 sq.m. Chronic Kidney Disease: Less than 60 mL/min/1.73 square meters End Stage Renal Disease: Less than 15 mL/min/1.73 square meters Performed By: #### C MP, PSA, GFR #### [address] [address] [facility] 04-13-2023 Albumin Level 3.9 G/dL Normal 3.5-5.0 [facility] ([place]) Comment on above: Performed By: #### C MP, PSA, GFR #### [address] [address] Albumin/Globulin [Mass ratio] 1.2 {ratio} Normal 1.1-2.5 [facility] ([place]) Comment on above: Performed By: #### C MP, PSA, GFR #### [address] [address] ALP [Catalytic activity/Vol] 97 U/L Normal 40-135 [facility] ([place]) Comment on above: Performed By: #### C MP, PSA, GFR #### [address] [address] ALT [Catalytic activity/Vol] 55 U/L Normal 16-63 [facility] ([place]) Comment on above: Performed By: #### C MP, PSA, GFR #### [address] [address] AST [Catalytic activity/Vol] 29 U/L Normal 10-40 [facility] ([place]) Comment on above: Performed By: #### C MP, PSA, GFR #### [address] [address] Bili Total 0.7 mg/dL Normal 0.2-1.0 [facility] ([place]) Comment on above: Result Comment: Use of this assay is not recommended for patients undergoing treatment with eltrombopag due to the potential for falsely elevated results. Performed By: #### C MP, PSA, GFR #### [address] [address] BUN/Creatinine Ratio 5 ratio Low 7-27 [facility] ([place]) Comment on above: Performed By: #### C MP, PSA, GFR #### [address] [address] Calcium [Mass/Vol] 9.3 mg/dL Normal 8.4-10.2 [facility] ([place]) Comment on above: Performed By: #### C MP, PSA, GFR #### [address] [address] Chloride [Moles/Vol] 102 mmol/L Normal 98-107 [facility] ([place]) Comment on above: Performed By: #### C MP, PSA, GFR #### [address] [address] CO2 [Moles/Vol] 30 mmol/L High 22-29 [facility] ([place]) Comment on above: Performed By: #### C MP, PSA, GFR #### [address] [address] Creatinine [Mass/Vol] 1.36 mg/dL High 0.70-1.30 [facility] ([place]) Comment on above: Performed By: #### C MP, PSA, GFR #### [address] [address] Electrolyte Balance 8.0 mEq/L Normal 4.0-15.0 [facility] ([place]) Comment on above: Performed By: #### C MP, PSA, GFR #### [address] [address] Globulin 3.2 G/dL Normal [facility] ([place]) Comment on above: Performed By: #### C MP, PSA, GFR #### [address] [address] Glucose [Mass/Vol] 77 mg/dL Normal 70-105 [facility] ([place]) Comment on above: Performed By: #### C MP, PSA, GFR #### [address] [address] Potassium [Moles/Vol] 4.4 mmol/L Normal 3.5-5.1 [facility] ([place]) Comment on above: Performed By: #### C MP, PSA, GFR #### [address] [address] Sodium [Moles/Vol] 140 mmol/L Normal 136-145 [facility] ([place]) Comment on above: Performed By: #### C MP, PSA, GFR #### [address] [address] Total Protein 7.1 G/dL Normal 6.4-8.2 [facility] ([place]) Comment on above: Performed By: #### C MP, PSA, GFR #### [address] [address] Urea nitrogen [Mass/Vol] 7 mg/dL Normal 7-18 [facility] ([place]) Comment on above: Performed By: #### C MP, PSA, GFR #### [address] [address] LABORATORYOrdered By: SYSTEM SYSTEM on 04-13-2023 Albumin BCP dye [Mass/Vol] 3.9 G/dL Normal 3.5 - 5.0 G/dL AO ADM SS Albumin/Globulin [Mass ratio] 1.2 {ratio} Normal 1.1 - 2.5 ratio AO ADM SS ALP [Catalytic activity/Vol] 97 U/L Normal 40 - 135 U/L AO ADM SS ALT With P-5'-P [Catalytic activity/Vol] 55 U/L Normal 16 - 63 U/L AO ADM SS AST With P-5'-P [Catalytic activity/Vol] 29 U/L Normal 10 - 40 U/L AO ADM SS Bilirubin [Mass/Vol] 0.7 mg/dL Normal 0.2 - 1.0 mg/dL AO ADM SS Comment on above: Interpretive Data: U se of this assay is not recommended for patients undergoing treatment with eltrombopag due to the potential for falsely elevated results. Calcium [Mass/Vol] 9.3 mg/dL Normal 8.4 - 10. 2 mg/dL AO ADM SS Chloride [Moles/Vol] 102 mmol/L Normal 98 - 107 mmol/L AO ADM SS CO2 [Moles/Vol] 30 mmol/L High 22 - 29 mmol/L AO ADM SS Creatinine [Mass/Vol] 1.36 mg/dL High 0.70 - 1.30 mg/dL AO ADM SS Electrolyte Balance 8.0 mEq/L Normal 4.0 - 15 .0 mEq/L AO ADM SS GFR/1.73 sq M.predicted among blacks MDRD (S/P/Bld) [Vol rate/Area] 68 ml/min/1.73sqm Invalid Interpretation Code AO Chemistry S Comment on above: Interpretive Data: GFR Population mean for , Non- Americans Ages 20-29 = 116 mL/min/1.73 sq.m. Ages 30-39 = 107 mL/min/1.73 sq.m. Ages 40-49 = 99 mL/min/1.73 sq.m. Ages 50-59 = 93 mL/min/1.73 sq.m. Ages 60-69 = 85 mL/min/1.73 sq.m. Ages 70+ = 75 mL/min/1.73 sq.m. Chronic Kidney Disease: Less than 60 mL/min/1.73 square meters End Stage Renal Disease: Less than 15 mL/min/1.73 square meters GFR/1.73 sq M.predicted among non-blacks MDRD (S/P/Bld) [Vol rate/Area] 56 ml/min/1.73sqm Invalid Interpretation Code AO Chemistry S Comment on above: Interpretive Data: GFR Population mean for , Non- Americans Ages 20-29 = 116 mL/min/1.73 sq.m. Ages 30-39 = 107 mL/min/1.73 sq.m. Ages 40-49 = 99 mL/min/1.73 sq.m. Ages 50-59 = 93 mL/min/1.73 sq.m. Ages 60-69 = 85 mL/min/1.73 sq.m. Ages 70+ = 75 mL/min/1.73 sq.m. Chronic Kidney Disease: Less than 60 mL/min/1.73 square meters End Stage Renal Disease: Less than 15 mL/min/1.73 square meters Globulin 3.2 G/dL Invalid Interpretation Code AO ADM SS Glucose [Mass/Vol] 77 mg/dL Normal 70 - 105 mg/dL AO ADM SS Potassium [Moles/Vol] 4.4 mmol/L Normal 3.5 - 5.1 mmol/L AO ADM SS Prostate specific Ag [Mass/Vol] 1.12 ng/mL Normal 0.00 - 4.00 ng/mL AO ADM SS Protein [Mass/Vol] 7.1 G/dL Normal 6.4 - 8.2 G/dL AO ADM SS Sodium [Moles/Vol] 140 mmol/L Normal 136 - 145 mmol/L AO ADM SS Urea nitrogen [Mass/Vol] 7 mg/dL Normal 7 - 18 mg/dL AO ADM SS Urea nitrogen/Creatinine [Mass ratio] 5 ratio Low 7 - 27 ratio AO ADM SS PSAon 04-13-2023 Prostate Specific Antigen 1.12 ng/mL Normal 0.00-4.00 [facility] ([place]) Comment on above: Performed By: #### C MP, PSA, GFR #### [address] [address] CNTHERAPYon 04-06-2023 CNTHERAPY OT/PT/Speech Visit ( PTMDRG) TATE BALTAZAR ([id number]) 1975 M Date Time Provider Department 04/06/23 1:00 PM FRANCHESCA LARSON PTMDRG Date Time Provider Department Center 04/06/2023 1:00 PM [id number], SUSAN PTMDRG [facility] Reason for Visit: Physical Therapy [503] Primary Visit Diagnosis:S/P right rotator cuff repair [Z98.890] Allergies As of Date: 04/06/2023 Noted Allergy Reaction HYDROCHLOROTHIAZIDE 05/18/2020 14 - Other: See Comments SULFAMETHOXAZOLE-TRIMETHOPRI M 03/26/2020 16 - Unknown 14 - Other: See Comments ACETAMINOPHEN 09/02/2022 14 - Other: See Comments Comments: Rebound headaches ACETAMINOPHEN-CODEINE 07/24/2021 16 - Unknown HYDROCODONE 09/25/2020 14 - Other: See Comments ORANGE JUICE 11/19/2021 16 - Unknown ORANGE OIL 08/07/2015 4 - Hives 14 - Other: See Comments PSEUDOEPHEDRINE 05/20/2021 16 - Unknown VICODIN (HYDROCODONE-ACETAMINOPHE* 1 - Mental Status Change 9 - Itching ARIPIPRAZOLE 02/22/2021 1 - Mental Status Change Date Reviewed: 04/06/2023 Reviewed by: Kisha Walters PA-C - Fully Assessed Prescriptions as of 04/06/2023 - gabapentin (NEURONTIN) 600 mg tablet Take 1 tablet by mouth three times a day for 90 days. - tiZANidine (ZANAFLEX) 4 mg tablet Take one in the afternoon and evening and take 2 tabs at bedtime. - cyclobenzaprine (FLEXERIL) 5 mg tablet Take 1 tablet by mouth two times a day as needed for muscle spasm. - oxyCODONE-acetaminophen (PERCOCET) 5-325 mg tablet Take 1-2 tablets by mouth every 4 hours as needed for pain. - ondansetron orally disintegrating (ZOFRAN ODT) 4 mg disintegrating tablet Take 1 tablet by mouth every 8 hours as needed for nausea/vomiting. - docusate sodium (COLACE) 100 mg capsule Take 1 capsule by mouth twice daily. - naloxone 4 mg/actuation nasal spray (NARCAN) Use 1 spray in one nostril as needed for overdose. May repeat every 2 to 3 min in alternating nostrils until medical assistance is available - verapamil ER (VERELAN) 240 mg 24 hr capsule Take 240 mg by mouth once daily. - naproxen (NAPROSYN) 250 mg tablet Take 250 mg by mouth. - buPROPion XL (WELLBUTRIN XL) 300 mg 24 hr tablet TAKE 1 TABLET BY MOUTH EVERY 24 HOURS. REPLACES PREVIOUS PRESCRIPTION FOR BUPROPION 150 MG TABLET - valsartan (DIOVAN) 160 mg tablet Take 160 mg by mouth every morning. - cetirizine (ZYRTEC) 10 mg tablet Take 10 mg by mouth once daily. - AJOVY SYRINGE 225 mg/1.5 mL syringe - FLUoxetine (PROZAC) 20 mg capsule Take 60 mg by mouth once daily. - pantoprazole DR (PROTONIX) 40 mg tablet Take 40 mg by mouth twice daily. - potassium chloride ER (K-DUR, KLOR-CON) 20 mEq tablet Take 20 mEq by mouth twice daily. - NURTEC ODT 75 mg disintegrating tablet [facility] 04-03-2023 [facility] Office Visit (ORMDRG ) TATE BALTAZAR ([id number]) 1975 M Date Time Provider Department 04/03/23 2:15 PM KISHA WALTERS During your visit today, we recorded the following information about you: Kisha Walters PA-C 04/06/2023 9:23 AM Signed Kisha Walters PA-C Department of Orthopaedics April 06, 2023 SURGERY: Right shoulder arthroscopic rotator cuff repair supraspinatus 1 cm SUBJECTIVE: Returns to clinic now 3 months status post the above procedure. Progressing with PT. Still has pain, states it's due to his previous stroke. Exam: Examination of shoulder reveals active forward elevation to 170. ER to 60. 5/5 abduction strength. ASSESSMENT: Z98.890 S/P rotator cuff repair (primary encounter diagnosis) SUMMARY/PLAN: Patient is doing well. Progress to PT phase 3 exercises. No formal follow up needed, return to clinic with any concerns. Kisha Walters PA-C Allergies As of Date: 04/03/2023 Noted Allergy Reaction HYDROCHLOROTHIAZIDE 05/18/2020 14 - Other: See Comments SULFAMETHOXAZOLE-TRIMETHOPRI M 03/26/2020 16 - Unknown 14 - Other: See Comments ACETAMINOPHEN 09/02/2022 14 - Other: See Comments Comments: Rebound headaches ACETAMINOPHEN-CODEINE 07/24/2021 16 - Unknown HYDROCODONE 09/25/2020 14 - Other: See Comments ORANGE JUICE 11/19/2021 16 - Unknown ORANGE OIL 08/07/2015 4 - Hives 14 - Other: See Comments PSEUDOEPHEDRINE 05/20/2021 16 - Unknown VICODIN (HYDROCODONE-ACETAMINOPHE* 1 - Mental Status Change 9 - Itching ARIPIPRAZOLE 02/22/2021 1 - Mental Status Change Date Reviewed: 04/03/2023 Reviewed by: Theresa Schafer MA - Fully Assessed Reason for Visit: Established Patient [175] Follow Up [171] Post Op [174] Primary Visit Diagnosis:S/P rotator cuff repair [Z98.890] Prescriptions as of 04/06/2023 - gabapentin (NEURONTIN) 600 mg tablet Take 1 tablet by mouth three times a day for 90 days. - tiZANidine (ZANAFLEX) 4 mg tablet Take one in the afternoon and evening and take 2 tabs at bedtime. - cyclobenzaprine (FLEXERIL) 5 mg tablet Take 1 tablet by mouth two times a day as needed for muscle spasm. - oxyCODONE-acetaminophen (PERCOCET) 5-325 mg tablet Take 1-2 tablets by mouth every 4 hours as needed for pain. - ondansetron orally disintegrating (ZOFRAN ODT) 4 mg disintegrating tablet Take 1 tablet by mouth every 8 hours as needed for nausea/vomiting. - docusate sodium (COLACE) 100 mg capsule Take 1 capsule by mouth twice daily. - naloxone 4 mg/actuation nasal spray (NARCAN) Use 1 spray in one nostril as needed for overdose. May repeat every 2 to 3 min in alternating nostrils until medical assistance is available - verapamil ER (VERELAN) 240 mg 24 hr capsule Take 240 mg by mouth once daily. - naproxen (NAPROSYN) 250 mg tablet Take 250 mg by mouth. - buPROPion XL (WELLBUTRIN XL) 300 mg 24 hr tablet TAKE 1 TABLET BY MOUTH EVERY 24 HOURS. REPLACES PREVIOUS PRESCRIPTION FOR BUPROPION 150 MG TABLET - valsartan (DIOVAN) 160 mg tablet Take 160 mg by mouth every morning. - cetirizine (ZYRTEC) 10 mg tablet Take 10 mg by mouth once daily. - AJOVY SYRINGE 225 mg/1.5 mL syringe - FLUoxetine (PROZAC) 20 mg capsule Take 60 mg by mouth once daily. - pantoprazole DR (PROTONIX) 40 mg tablet Take 40 mg by mouth twice daily. - potassium chloride ER (K-DUR, KLOR-CON) 20 mEq tablet Take 20 mEq by mouth twice daily. - NURTEC ODT 75 mg disintegrating tablet Problem List As Of Date 04/03/2023 Noted Resolved Pilonidal cyst with abscess [L05.01] 06/06/2010 Epigastric pain [R10.13] 09/27/2015 10/23/2017 Essential hypertension [I10] 10/01/2015 Depression [F32.A] 10/01/2015 RSD (reflex sympathetic dystrophy) [G90.50] 10/01/2015 Encounter for sterilization [Z30.2] 04/21/2016 Nontraumatic subcortical hemorrhage of left cer*10/19/2017 Dysphagia due to recent stroke [I69.391] 10/20/2017 Acute right hemiparesis (HCC) [G81.91] 10/20/2017 TSH deficiency [E03.8] 10/20/2017 Cerebral edema (HCC) [G93.6] 10/20/2017 10/23/2017 Migraine without aura [G43.009] 10/21/2017 Arthropathy of lumbar facet joint [M47.816] 07/10/2020 Lumbar radiculopathy [M54.16] 03/26/2020 Cerebrovascular accident (HCC) [I63.9] 11/19/2021 Chronic low back pain [M54.50, G89.29] 11/19/2021 Degeneration of intervertebral disc of lumbar r*03/26/2020 Gastroesophageal reflux disease with esophagiti*11/19/2021 Generalized osteoarthritis [M15.9] 03/26/2020 Hypercalcemia [E83.52] 11/19/2021 Intractable chronic migraine without aura [G43.*03/07/2020 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 Normal [facility] CNTHERAPYon 03-31-2023 CNTHERAPY OT/PT/Speech Visit ( PTMDRG) TATE BALTAZAR ([id number]) 1975 M Date Time Provider Department 03/31/23 11:15 AM ELOISE HEBERT PTMG Date Time Provider Department Center 03/31/2023 11:15 AM [id number], JULIE PTMDRG [facility] Reason for Visit: PT Progress Note [0756] Primary Visit Diagnosis:S/P right rotator cuff repair [Z98.890] Allergies As of Date: 03/31/2023 Noted Allergy Reaction HYDROCHLOROTHIAZIDE 05/18/2020 14 - Other: See Comments SULFAMETHOXAZOLE-TRIMETHOPRI M 03/26/2020 16 - Unknown 14 - Other: See Comments ACETAMINOPHEN 09/02/2022 14 - Other: See Comments Comments: Rebound headaches ACETAMINOPHEN-CODEINE 07/24/2021 16 - Unknown HYDROCODONE 09/25/2020 14 - Other: See Comments ORANGE JUICE 11/19/2021 16 - Unknown ORANGE OIL 08/07/2015 4 - Hives 14 - Other: See Comments PSEUDOEPHEDRINE 05/20/2021 16 - Unknown VICODIN (HYDROCODONE-ACETAMINOPHE* 1 - Mental Status Change 9 - Itching ARIPIPRAZOLE 02/22/2021 1 - Mental Status Change Date Reviewed: 03/05/2023 Reviewed by: Mamta Cisneros RN - Fully Assessed Prescriptions as of 03/31/2023 - gabapentin (NEURONTIN) 600 mg tablet Take 1 tablet by mouth three times a day for 90 days. - tiZANidine (ZANAFLEX) 4 mg tablet Take one in the afternoon and evening and take 2 tabs at bedtime. - cyclobenzaprine (FLEXERIL) 5 mg tablet Take 1 tablet by mouth two times a day as needed for muscle spasm. - oxyCODONE-acetaminophen (PERCOCET) 5-325 mg tablet Take 1-2 tablets by mouth every 4 hours as needed for pain. - ondansetron orally disintegrating (ZOFRAN ODT) 4 mg disintegrating tablet Take 1 tablet by mouth every 8 hours as needed for nausea/vomiting. - docusate sodium (COLACE) 100 mg capsule Take 1 capsule by mouth twice daily. - naloxone 4 mg/actuation nasal spray (NARCAN) Use 1 spray in one nostril as needed for overdose. May repeat every 2 to 3 min in alternating nostrils until medical assistance is available - verapamil ER (VERELAN) 240 mg 24 hr capsule Take 240 mg by mouth once daily. - naproxen (NAPROSYN) 250 mg tablet Take 250 mg by mouth. - buPROPion XL (WELLBUTRIN XL) 300 mg 24 hr tablet TAKE 1 TABLET BY MOUTH EVERY 24 HOURS. REPLACES PREVIOUS PRESCRIPTION FOR BUPROPION 150 MG TABLET - valsartan (DIOVAN) 160 mg tablet Take 160 mg by mouth every morning. - cetirizine (ZYRTEC) 10 mg tablet Take 10 mg by mouth once daily. - AJOVY SYRINGE 225 mg/1.5 mL syringe - FLUoxetine (PROZAC) 20 mg capsule Take 60 mg by mouth once daily. - pantoprazole DR (PROTONIX) 40 mg tablet Take 40 mg by mouth twice daily. - potassium chloride ER (K-DUR, KLOR-CON) 20 mEq tablet Take 20 mEq by mouth twice daily. - NURTEC ODT 75 mg disintegrating tablet [facility] CNTHERAPYon 03-24-2023 CNTHERAPY OT/PT/Speech Visit ( PTMDRG) TATE BALTAZAR ([id number]) 1975 M Date Time Provider Department 03/24/23 11:00 AM FRANCHESCA LARSON PTMG Date Time Provider Department [place] 03/24/2023 11:00 AM [id number], SUSAN PTMDRG [facility] Reason for Visit: Physical Therapy [503] Primary Visit Diagnosis:S/P right rotator cuff repair [Z98.890] Allergies As of Date: 03/24/2023 Noted Allergy Reaction HYDROCHLOROTHIAZIDE 05/18/2020 14 - Other: See Comments SULFAMETHOXAZOLE-TRIMETHOPRI M 03/26/2020 16 - Unknown 14 - Other: See Comments ACETAMINOPHEN 09/02/2022 14 - Other: See Comments Comments: Rebound headaches ACETAMINOPHEN-CODEINE 07/24/2021 16 - Unknown HYDROCODONE 09/25/2020 14 - Other: See Comments ORANGE JUICE 11/19/2021 16 - Unknown ORANGE OIL 08/07/2015 4 - Hives 14 - Other: See Comments PSEUDOEPHEDRINE 05/20/2021 16 - Unknown VICODIN (HYDROCODONE-ACETAMINOPHE* 1 - Mental Status Change 9 - Itching ARIPIPRAZOLE 02/22/2021 1 - Mental Status Change Date Reviewed: 03/05/2023 Reviewed by: Mamta Cisneros RN - Fully Assessed Prescriptions as of 03/24/2023 - gabapentin (NEURONTIN) 600 mg tablet Take 1 tablet by mouth three times a day for 90 days. - tiZANidine (ZANAFLEX) 4 mg tablet Take one in the afternoon and evening and take 2 tabs at bedtime. - cyclobenzaprine (FLEXERIL) 5 mg tablet Take 1 tablet by mouth two times a day as needed for muscle spasm. - oxyCODONE-acetaminophen (PERCOCET) 5-325 mg tablet Take 1-2 tablets by mouth every 4 hours as needed for pain. - ondansetron orally disintegrating (ZOFRAN ODT) 4 mg disintegrating tablet Take 1 tablet by mouth every 8 hours as needed for nausea/vomiting. - docusate sodium (COLACE) 100 mg capsule Take 1 capsule by mouth twice daily. - naloxone 4 mg/actuation nasal spray (NARCAN) Use 1 spray in one nostril as needed for overdose. May repeat every 2 to 3 min in alternating nostrils until medical assistance is available - verapamil ER (VERELAN) 240 mg 24 hr capsule Take 240 mg by mouth once daily. - naproxen (NAPROSYN) 250 mg tablet Take 250 mg by mouth. - buPROPion XL (WELLBUTRIN XL) 300 mg 24 hr tablet TAKE 1 TABLET BY MOUTH EVERY 24 HOURS. REPLACES PREVIOUS PRESCRIPTION FOR BUPROPION 150 MG TABLET - valsartan (DIOVAN) 160 mg tablet Take 160 mg by mouth every morning. - cetirizine (ZYRTEC) 10 mg tablet Take 10 mg by mouth once daily. - AJOVY SYRINGE 225 mg/1.5 mL syringe - FLUoxetine (PROZAC) 20 mg capsule Take 60 mg by mouth once daily. - pantoprazole DR (PROTONIX) 40 mg tablet Take 40 mg by mouth twice daily. - potassium chloride ER (K-DUR, KLOR-CON) 20 mEq tablet Take 20 mEq by mouth twice daily. - CHERELLE ODT 75 mg disintegrating tablet [facility] CNTHERAPYon 03-17-2023 CNTHERAPY OT/PT/Speech Visit ( PTMDRG) TATE BALTAZAR ([id number]) 1975 M Date Time Provider Department 03/17/23 11:15 AM ELOISE HEBERT PTMDRG Date Time Provider Department Center 03/17/2023 11:15 AM [id number], JULIE PTMDRG [facility] Reason for Visit: Physical Therapy [503] Primary Visit Diagnosis:S/P right rotator cuff repair [Z98.890] Allergies As of Date: 03/17/2023 Noted Allergy Reaction HYDROCHLOROTHIAZIDE 05/18/2020 14 - Other: See Comments SULFAMETHOXAZOLE-TRIMETHOPRI M 03/26/2020 16 - Unknown 14 - Other: See Comments ACETAMINOPHEN 09/02/2022 14 - Other: See Comments Comments: Rebound headaches ACETAMINOPHEN-CODEINE 07/24/2021 16 - Unknown HYDROCODONE 09/25/2020 14 - Other: See Comments ORANGE JUICE 11/19/2021 16 - Unknown ORANGE OIL 08/07/2015 4 - Hives 14 - Other: See Comments PSEUDOEPHEDRINE 05/20/2021 16 - Unknown VICODIN (HYDROCODONE-ACETAMINOPHE* 1 - Mental Status Change 9 - Itching ARIPIPRAZOLE 02/22/2021 1 - Mental Status Change Date Reviewed: 03/05/2023 Reviewed by: Mamta Cisneros RN - Fully Assessed Prescriptions as of 03/17/2023 - gabapentin (NEURONTIN) 600 mg tablet Take 1 tablet by mouth three times a day for 90 days. - tiZANidine (ZANAFLEX) 4 mg tablet Take one in the afternoon and evening and take 2 tabs at bedtime. - cyclobenzaprine (FLEXERIL) 5 mg tablet Take 1 tablet by mouth two times a day as needed for muscle spasm. - oxyCODONE-acetaminophen (PERCOCET) 5-325 mg tablet Take 1-2 tablets by mouth every 4 hours as needed for pain. - ondansetron orally disintegrating (ZOFRAN ODT) 4 mg disintegrating tablet Take 1 tablet by mouth every 8 hours as needed for nausea/vomiting. - docusate sodium (COLACE) 100 mg capsule Take 1 capsule by mouth twice daily. - naloxone 4 mg/actuation nasal spray (NARCAN) Use 1 spray in one nostril as needed for overdose. May repeat every 2 to 3 min in alternating nostrils until medical assistance is available - verapamil ER (VERELAN) 240 mg 24 hr capsule Take 240 mg by mouth once daily. - naproxen (NAPROSYN) 250 mg tablet Take 250 mg by mouth. - buPROPion XL (WELLBUTRIN XL) 300 mg 24 hr tablet TAKE 1 TABLET BY MOUTH EVERY 24 HOURS. REPLACES PREVIOUS PRESCRIPTION FOR BUPROPION 150 MG TABLET - valsartan (DIOVAN) 160 mg tablet Take 160 mg by mouth every morning. - cetirizine (ZYRTEC) 10 mg tablet Take 10 mg by mouth once daily. - AJOVY SYRINGE 225 mg/1.5 mL syringe - FLUoxetine (PROZAC) 20 mg capsule Take 60 mg by mouth once daily. - pantoprazole DR (PROTONIX) 40 mg tablet Take 40 mg by mouth twice daily. - potassium chloride ER (K-DUR, KLOR-CON) 20 mEq tablet Take 20 mEq by mouth twice daily. - NURTEC ODT 75 mg disintegrating tablet Normal [facility] CNTHERAPYon 03-10-2023 CNTHERAPY OT/PT/Speech Visit ( PTMDRG) TATE BALTAZAR ([id number]) 1975 M Date Time Provider Department 03/10/23 11:45 AM FRANCHESCA LARSON PTMDRG Date Time Provider Department [place] 03/10/2023 11:45 AM [id number], SUSAN PTMDRG [facility] Reason for Visit: Physical Therapy [503] Primary Visit Diagnosis:S/P right rotator cuff repair [Z98.890] Allergies As of Date: 03/10/2023 Noted Allergy Reaction HYDROCHLOROTHIAZIDE 05/18/2020 14 - Other: See Comments SULFAMETHOXAZOLE-TRIMETHOPRI M 03/26/2020 16 - Unknown 14 - Other: See Comments ACETAMINOPHEN 09/02/2022 14 - Other: See Comments Comments: Rebound headaches ACETAMINOPHEN-CODEINE 07/24/2021 16 - Unknown HYDROCODONE 09/25/2020 14 - Other: See Comments ORANGE JUICE 11/19/2021 16 - Unknown ORANGE OIL 08/07/2015 4 - Hives 14 - Other: See Comments PSEUDOEPHEDRINE 05/20/2021 16 - Unknown VICODIN (HYDROCODONE-ACETAMINOPHE* 1 - Mental Status Change 9 - Itching ARIPIPRAZOLE 02/22/2021 1 - Mental Status Change Date Reviewed: 03/05/2023 Reviewed by: Mamta Cisneros, RN - Fully Assessed Prescriptions as of 03/10/2023 - gabapentin (NEURONTIN) 600 mg tablet Take 1 tablet by mouth three times a day for 90 days. - tiZANidine (ZANAFLEX) 4 mg tablet Take one in the afternoon and evening and take 2 tabs at bedtime. - cyclobenzaprine (FLEXERIL) 5 mg tablet Take 1 tablet by mouth two times a day as needed for muscle spasm. - oxyCODONE-acetaminophen (PERCOCET) 5-325 mg tablet Take 1-2 tablets by mouth every 4 hours as needed for pain. - ondansetron orally disintegrating (ZOFRAN ODT) 4 mg disintegrating tablet Take 1 tablet by mouth every 8 hours as needed for nausea/vomiting. - docusate sodium (COLACE) 100 mg capsule Take 1 capsule by mouth twice daily. - naloxone 4 mg/actuation nasal spray (NARCAN) Use 1 spray in one nostril as needed for overdose. May repeat every 2 to 3 min in alternating nostrils until medical assistance is available - verapamil ER (VERELAN) 240 mg 24 hr capsule Take 240 mg by mouth once daily. - naproxen (NAPROSYN) 250 mg tablet Take 250 mg by mouth. - buPROPion XL (WELLBUTRIN XL) 300 mg 24 hr tablet TAKE 1 TABLET BY MOUTH EVERY 24 HOURS. REPLACES PREVIOUS PRESCRIPTION FOR BUPROPION 150 MG TABLET - valsartan (DIOVAN) 160 mg tablet Take 160 mg by mouth every morning. - cetirizine (ZYRTEC) 10 mg tablet Take 10 mg by mouth once daily. - AJOVY SYRINGE 225 mg/1.5 mL syringe - FLUoxetine (PROZAC) 20 mg capsule Take 60 mg by mouth once daily. - pantoprazole DR (PROTONIX) 40 mg tablet Take 40 mg by mouth twice daily. - potassium chloride ER (K-DUR, KLOR-CON) 20 mEq tablet Take 20 mEq by mouth twice daily. - NURTEC ODT 75 mg disintegrating tablet [facility] CNTHERAPYon 02-24-2023 CNTHERAPY OT/PT/Speech Visit ( PTMDRG) TATE BALTAZAR ([id number]) 1975 M Date Time Provider Department 02/24/23 12:45 PM ELOISE HEBERT PT[facility] Date Time Provider Department Center 02/24/2023 12:45 PM [id number], JULIE PTMDRG [facility] Reason for Visit: Physical Therapy [503] Primary Visit Diagnosis:S/P right rotator cuff repair [Z98.890] Allergies As of Date: 02/24/2023 Noted Allergy Reaction HYDROCHLOROTHIAZIDE 05/18/2020 14 - Other: See Comments SULFAMETHOXAZOLE-TRIMETHOPRI M 03/26/2020 16 - Unknown 14 - Other: See Comments ACETAMINOPHEN 09/02/2022 14 - Other: See Comments Comments: Rebound headaches ACETAMINOPHEN-CODEINE 07/24/2021 16 - Unknown HYDROCODONE 09/25/2020 14 - Other: See Comments ORANGE JUICE 11/19/2021 16 - Unknown ORANGE OIL 08/07/2015 4 - Hives 14 - Other: See Comments PSEUDOEPHEDRINE 05/20/2021 16 - Unknown VICODIN (HYDROCODONE-ACETAMINOPHE* 1 - Mental Status Change 9 - Itching ARIPIPRAZOLE 02/22/2021 1 - Mental Status Change Date Reviewed: 02/17/2023 Reviewed by: Kristi-Grace Finley MA - Fully Assessed Prescriptions as of 02/24/2023 - AJOVY SYRINGE 225 mg/1.5 mL syringe - buPROPion XL (WELLBUTRIN XL) 300 mg 24 hr tablet TAKE 1 TABLET BY MOUTH EVERY 24 HOURS. REPLACES PREVIOUS PRESCRIPTION FOR BUPROPION 150 MG TABLET - cetirizine (ZYRTEC) 10 mg tablet Take 10 mg by mouth once daily. - cyclobenzaprine (FLEXERIL) 5 mg tablet Take 1 tablet by mouth two times a day as needed for muscle spasm. - docusate sodium (COLACE) 100 mg capsule Take 1 capsule by mouth twice daily. - FLUoxetine (PROZAC) 20 mg capsule Take 60 mg by mouth once daily. - gabapentin (NEURONTIN) 600 mg tablet Take 1 tablet by mouth three times a day for 90 days. - naloxone 4 mg/actuation nasal spray (NARCAN) Use 1 spray in one nostril as needed for overdose. May repeat every 2 to 3 min in alternating nostrils until medical assistance is available - naproxen (NAPROSYN) 250 mg tablet Take 250 mg by mouth. - NURTEC ODT 75 mg disintegrating tablet - ondansetron orally disintegrating (ZOFRAN ODT) 4 mg disintegrating tablet Take 1 tablet by mouth every 8 hours as needed for nausea/vomiting. - oxyCODONE-acetaminophen (PERCOCET) 5-325 mg tablet Take 1-2 tablets by mouth every 4 hours as needed for pain. - pantoprazole DR (PROTONIX) 40 mg tablet Take 40 mg by mouth twice daily. - potassium chloride ER (K-DUR, KLOR-CON) 20 mEq tablet Take 20 mEq by mouth twice daily. - tiZANidine (ZANAFLEX) 4 mg tablet Take one in the afternoon and evening and take 2 tabs at bedtime. - valsartan (DIOVAN) 160 mg tablet Take 160 mg by mouth every morning. - verapamil ER (VERELAN) 240 mg 24 hr capsule Take 240 mg by mouth once daily. [facility] CNTHERAPYon 02-19-2023 CNTHERAPY OT/PT/Speech Visit ( PTMDRG) TATE BALTAZAR ([id number]) 1975 M Date Time Provider Department 02/19/23 10:30 AM ELOISE HEBERT PTMDRG Date Time Provider Department Center 02/19/2023 10:30 AM [id number], JULIE PTMDRG [facility] Reason for Visit: PT Progress Note [1596] Primary Visit Diagnosis:S/P right rotator cuff repair [Z98.890] Allergies As of Date: 02/19/2023 Noted Allergy Reaction HYDROCHLOROTHIAZIDE 05/18/2020 14 - Other: See Comments SULFAMETHOXAZOLE-TRIMETHOPRI M 03/26/2020 16 - Unknown 14 - Other: See Comments ACETAMINOPHEN 09/02/2022 14 - Other: See Comments Comments: Rebound headaches ACETAMINOPHEN-CODEINE 07/24/2021 16 - Unknown HYDROCODONE 09/25/2020 14 - Other: See Comments ORANGE JUICE 11/19/2021 16 - Unknown ORANGE OIL 08/07/2015 4 - Hives 14 - Other: See Comments PSEUDOEPHEDRINE 05/20/2021 16 - Unknown VICODIN (HYDROCODONE-ACETAMINOPHE* 1 - Mental Status Change 9 - Itching ARIPIPRAZOLE 02/22/2021 1 - Mental Status Change Date Reviewed: 02/17/2023 Reviewed by: Grace Odell MA - Fully Assessed Prescriptions as of 02/19/2023 - gabapentin (NEURONTIN) 600 mg tablet Take 1 tablet by mouth three times a day for 90 days. - tiZANidine (ZANAFLEX) 4 mg tablet Take one in the afternoon and evening and take 2 tabs at bedtime. - cyclobenzaprine (FLEXERIL) 5 mg tablet Take 1 tablet by mouth two times a day as needed for muscle spasm. - oxyCODONE-acetaminophen (PERCOCET) 5-325 mg tablet Take 1-2 tablets by mouth every 4 hours as needed for pain. - ondansetron orally disintegrating (ZOFRAN ODT) 4 mg disintegrating tablet Take 1 tablet by mouth every 8 hours as needed for nausea/vomiting. - docusate sodium (COLACE) 100 mg capsule Take 1 capsule by mouth twice daily. - naloxone 4 mg/actuation nasal spray (NARCAN) Use 1 spray in one nostril as needed for overdose. May repeat every 2 to 3 min in alternating nostrils until medical assistance is available - verapamil ER (VERELAN) 240 mg 24 hr capsule Take 240 mg by mouth once daily. - naproxen (NAPROSYN) 250 mg tablet Take 250 mg by mouth. - buPROPion XL (WELLBUTRIN XL) 300 mg 24 hr tablet TAKE 1 TABLET BY MOUTH EVERY 24 HOURS. REPLACES PREVIOUS PRESCRIPTION FOR BUPROPION 150 MG TABLET - valsartan (DIOVAN) 160 mg tablet Take 160 mg by mouth every morning. - cetirizine (ZYRTEC) 10 mg tablet Take 10 mg by mouth once daily. - AJOVY SYRINGE 225 mg/1.5 mL syringe - FLUoxetine (PROZAC) 20 mg capsule Take 60 mg by mouth once daily. - pantoprazole DR (PROTONIX) 40 mg tablet Take 40 mg by mouth twice daily. - potassium chloride ER (K-DUR, KLOR-CON) 20 mEq tablet Take 20 mEq by mouth twice daily. - NURTEC ODT 75 mg disintegrating tablet [facility] 02-16-2023 [facility] TATE BALTAZAR ([id number]) 1975 M Date Time Provider Department 02/16/23 1:00 PM MIREYA SWEET [facility] During your visit today, we recorded the following information about you: Temperature Pulse Blood pressure Weight 98.7 degrees 73/minute 122/87 112.4 kg Height 1.88 m Mireya Sweet PA-C 02/16/2023 1:28 PM Signed REASON FOR VISIT: routine Patient accompanied by: , Mirella; service dog Mamma PRINCIPAL NEUROLOGIC DIAGNOSIS: CVA HISTORY OF ILLNESS: Date of onset: 10/23/2017 Narrative Describing Problems since last visit: He was last seen on 08/15/2022 for spasticity consult. He was instructed to increase tizanidine to 2mg tid and 6mg at bedtime to help with spasticity in the right upper and lower extremities. He's had several falls since the last visit, most recently 3 days ago. Typically it's because his legs won't hold him up. He continues to have spasms in the whole right side, despite tizanidine, although he does think it helps somewhat. He's taking . The medication makes him drowsy and he's unable to take a higher dose. Patient Entered Data PROMIS No flowsheet data found. Spasticity NRS 12/15/2022 12/15/2022 Spasticity Level 7 7 Spasm Scale 12/15/2022 12/15/2022 08/14/2022 Spasm Frequency Spasms occurring more than once per hour Spasms occurring more than once per hour Infrequent full spasms occuriung less than once per hour Spasm Severity Severe Severe Severe Global Impression of Change No flowsheet data found. Driving issues: No Safety concerns regarding living situations and safety at home: No Risk of falls: Yes frequency often, 0 injuries Domestic Violence: Have you been hit, kicked, punched, or otherwise hurt by someone within the past year? No If so, by whom? Review of Systems PHYSICAL EXAMINATION: Mental Status: There were no deficits of cognition, language or prosody on interview. 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 Strength Right Left Shoulder abduction 5 Elbow flexion 5 Elbow extension 5 Wrist extension 5 Hip flexion 4+ 5 Knee flexion 4+ 5 Knee extension 5 5 Plantarflexion 4 5 Dorsiflexion 3+ 5 Spasticity Right Left Shoulder 0 0 Elbow flexion 0 0 Elbow extension 0 0 Wrist flexion 0 0 Wrist extension 0 0 Finger flexion 0 0 Finger extension 0 0 Hip adduction 0 0 Knee extension 0. 0 Knee flexion 0 0 Plantarflexion 0 0 Modified Al Scale 0 - No increase in tone 1 - Slight increase in tone (catch and release at end of ROM) 1+ - Slight increase in tone, manifested by a catch, followed by minimal resistance throughout remainder (less than half of ROM) 2 - Marked increase in tone through most of the ROM, but affected part(s) easily moved 3 - Considerable increase in tone; passive movement difficult 4 - Affected part(s) rigid in flexion or extension Spasms observed: RUE: no right upper extremity spasms LUE: no left upper extremity spasms RLE: no right lower extremity spasms LLE: no left lower extremity spasms Ambulation Index Score: 2 - Abnormal gait - walks 25 ft in <10 sec without support Gait: Standard gait was normal. No assistive device was required for safe ambulation. Stressed gait was not tested. 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 He describes ongoing pain and spasms on the right side, also recently recovering from R shoulder surgery for torn rotator cuff. Spasms continue despite moderate dose of tizanidine. No spasticity is noted on exam. He agreed to increase night time dose of tizanidine to 8mg. Will add cyclobenzaprine for PRN use. Follow up in 6 months. PLAN 1. Symptomatic medications: tizanidine . Cyclobenzaprine 5mg bid prn spasms. 2. Follow-up: 6 months. The patient was instructed to call should any problems occur in the meantime. Mireya Sweet PA-C Allergies As of Date: 02/16/2023 Noted Allergy Reaction HYDROCHLOROTHIAZIDE 05/18/2020 14 - Other: See Comments SULFAMETHOXAZOLE-TRIMETHOPRI M 03/26/2020 16 - Unknown 14 - Other: See Comments ACETAMINOPHEN 09/02/2022 14 - Other: See Comments Comments: Rebound headaches ACETAMINOPHEN-CODEINE 07/24/2021 16 - Unknown HYDROCODONE 09/25/2020 14 - Other: See Comments ORANGE JUICE 11/19/2021 16 - Unknown ORANGE OIL 08/07/2015 4 - Hives 14 - Other: See Comments PSEUDOEPHEDRINE 05/20/2021 16 - Unknown VICODIN (HYDROCODONE-ACETAMINOPHE* 1 - Mental Status Change 9 - Itching ARIPIPRAZOLE 02/22/2021 1 - Mental Status Change Date Reviewed: 02/16/2023 Reviewed by: Sami Ch OCCA - Fully Assessed Reason for Visit: Follow Up [171] Primary Visit Diagnosis:Muscle spasticity [M62.838] Other Visit Diagnosis:Cerebrovascular accident (CVA), unspecified mechanism (HCC) [I63.9] Order(s):tiZANidine (ZANAFLEX) 4 mg tabletTake one in the aft (more content not included)... [facility] CNOVon 02-13-2023 CNOV Office Visit (ORMDRG ) TATE BALTAZAR ([id number]) 1975 M Date Time Provider Department 02/13/23 1:15 PM MAL GOTTI ORIAR During your visit today, we recorded the following information about you: Mal Gotti MD 02/20/2023 9:34 AM Signed PAIN EVALUATION 02/13/2023 1257 Pain Level: 7 Pain Location: Shoulder-Right Description: Throbbing;Spasm;Radiating;Ti ngling;Numbness Frequency: Continuous Intervention/Comfort measure: Cold;Exercise;Support surface tizandine Comments: wearing sling, PT currently Tate Clarkeand presents today for: Second post-surgery follow up CHANGES SINCE LAST VISIT: Doing Phase 1 physical therapy with expected progress. Pain improving. There were no vitals taken for this visit. EXAMINATION FINDINGS: Resolving shoulder edema and ecchymosis. Incisions healed Mild discomfort with gentle passive range of motion within a limited range. Active elevation to 120 today. No crepitation or catching with movement. IMAGING: No imaging today MEDICAL DECISION MAKING: Functional Plan: Physical therapy Phase 2 Continue lifting limit 1 pound or less, avoid sudden movements with the shoulder Sling may be discontinued. Tylenol/NSAID use encouraged for control of pain. Return in 6 weeks for repeat examination. Information for medical decision making today comes from review of the following data: History, exam, imaging Mal Gotti MD Shoulder AND Elbow Surgeon Department of Orthopaedic Surgery [facility] Medical Decision Making: Medical Decision Making Level: 1 - N/A Allergies As of Date: 02/13/2023 Noted Allergy Reaction HYDROCHLOROTHIAZIDE 05/18/2020 14 - Other: See Comments SULFAMETHOXAZOLE-TRIMETHOPRI M 03/26/2020 16 - Unknown 14 - Other: See Comments ACETAMINOPHEN 09/02/2022 14 - Other: See Comments Comments: Rebound headaches ACETAMINOPHEN-CODEINE 07/24/2021 16 - Unknown HYDROCODONE 09/25/2020 14 - Other: See Comments ORANGE JUICE 11/19/2021 16 - Unknown ORANGE OIL 08/07/2015 4 - Hives 14 - Other: See Comments PSEUDOEPHEDRINE 05/20/2021 16 - Unknown VICODIN (HYDROCODONE-ACETAMINOPHE* 1 - Mental Status Change 9 - Itching ARIPIPRAZOLE 02/22/2021 1 - Mental Status Change Date Reviewed: 02/13/2023 Reviewed by: Theresa Schafer MA - Fully Assessed Reason for Visit: Established Patient [175] Follow Up [171] Post Op [174] Primary Visit Diagnosis:S/P rotator cuff repair [Z98.890] Prescriptions as of 02/20/2023 - gabapentin (NEURONTIN) 600 mg tablet Take 1 tablet by mouth three times a day for 90 days. - tiZANidine (ZANAFLEX) 4 mg tablet Take one in the afternoon and evening and take 2 tabs at bedtime. - cyclobenzaprine (FLEXERIL) 5 mg tablet Take 1 tablet by mouth two times a day as needed for muscle spasm. - oxyCODONE-acetaminophen (PERCOCET) 5-325 mg tablet Take 1-2 tablets by mouth every 4 hours as needed for pain. - ondansetron orally disintegrating (ZOFRAN ODT) 4 mg disintegrating tablet Take 1 tablet by mouth every 8 hours as needed for nausea/vomiting. - docusate sodium (COLACE) 100 mg capsule Take 1 capsule by mouth twice daily. - naloxone 4 mg/actuation nasal spray (NARCAN) Use 1 spray in one nostril as needed for overdose. May repeat every 2 to 3 min in alternating nostrils until medical assistance is available - verapamil ER (VERELAN) 240 mg 24 hr capsule Take 240 mg by mouth once daily. - naproxen (NAPROSYN) 250 mg tablet Take 250 mg by mouth. - buPROPion XL (WELLBUTRIN XL) 300 mg 24 hr tablet TAKE 1 TABLET BY MOUTH EVERY 24 HOURS. REPLACES PREVIOUS PRESCRIPTION FOR BUPROPION 150 MG TABLET - valsartan (DIOVAN) 160 mg tablet Take 160 mg by mouth every morning. - cetirizine (ZYRTEC) 10 mg tablet Take 10 mg by mouth once daily. - AJOVY SYRINGE 225 mg/1.5 mL syringe - FLUoxetine (PROZAC) 20 mg capsule Take 60 mg by mouth once daily. - pantoprazole DR (PROTONIX) 40 mg tablet Take 40 mg by mouth twice daily. - potassium chloride ER (K-DUR, KLOR-CON) 20 mEq tablet Take 20 mEq by mouth twice daily. - NURTEC ODT 75 mg disintegrating tablet Problem List As Of Date 02/13/2023 Noted Resolved Pilonidal cyst with abscess [L05.01] 06/06/2010 Epigastric pain [R10.13] 09/27/2015 10/23/2017 Essential hypertension [I10] 10/01/2015 Depression [F32.A] 10/01/2015 RSD (reflex sympathetic dystrophy) [G90.50] 10/01/2015 Encounter for sterilization [Z30.2] 04/21/2016 Nontraumatic subcortical hemorrhage of left cer*10/19/2017 Dysphagia due to recent stroke [I69.391] 10/20/2017 Acute right hemiparesis (HCC) [G81.91] 10/20/2017 TSH deficiency [E03.8] 10/20/2017 Cerebral edema (HCC) [G93.6] 10/20/2017 10/23/2017 Migraine without aura [G43.009] 10/21/2017 Arthropathy of lumbar facet joint [M47.816] 07/10/2020 Lumbar radiculopathy [M54.16] 03/26/2020 (more content not included)... Normal [facility] CNTHERAPYon 02-13-2023 CNTHERAPY OT/PT/Speech Visit ( PTMDRG) TATE BALTAZAR ([id number]) 1975 M Date Time Provider Department 02/13/23 2:45 PM ELOISE HEBERT PTMDRG Date Time Provider Department Center 02/13/2023 2:45 PM [id number], JULIE PTMDRG [facility] Reason for Visit: Physical Therapy [503] Primary Visit Diagnosis:S/P right rotator cuff repair [Z98.890] Allergies As of Date: 02/13/2023 Noted Allergy Reaction HYDROCHLOROTHIAZIDE 05/18/2020 14 - Other: See Comments SULFAMETHOXAZOLE-TRIMETHOPRI M 03/26/2020 16 - Unknown 14 - Other: See Comments ACETAMINOPHEN 09/02/2022 14 - Other: See Comments Comments: Rebound headaches ACETAMINOPHEN-CODEINE 07/24/2021 16 - Unknown HYDROCODONE 09/25/2020 14 - Other: See Comments ORANGE JUICE 11/19/2021 16 - Unknown ORANGE OIL 08/07/2015 4 - Hives 14 - Other: See Comments PSEUDOEPHEDRINE 05/20/2021 16 - Unknown VICODIN (HYDROCODONE-ACETAMINOPHE* 1 - Mental Status Change 9 - Itching ARIPIPRAZOLE 02/22/2021 1 - Mental Status Change Date Reviewed: 02/13/2023 Reviewed by: Theresa Schafer MA - Fully Assessed Prescriptions as of 02/13/2023 - tiZANidine (ZANAFLEX) 2 mg tablet Take 1 tablet by mouth three times daily. - oxyCODONE-acetaminophen (PERCOCET) 5-325 mg tablet Take 1-2 tablets by mouth every 4 hours as needed for pain. - oxyCODONE-acetaminophen (PERCOCET) 5-325 mg tablet Take 1-2 tablets by mouth every 4 hours as needed for pain. - ondansetron orally disintegrating (ZOFRAN ODT) 4 mg disintegrating tablet Take 1 tablet by mouth every 8 hours as needed for nausea/vomiting. - docusate sodium (COLACE) 100 mg capsule Take 1 capsule by mouth twice daily. - gabapentin (NEURONTIN) 600 mg tablet Take 1 tablet by mouth three times daily for 90 days. Do not start before August 27, 2022. - tiZANidine HCl (ZANAFLEX) 6 mg capsule Take 1 capsule by mouth daily at bedtime. - naloxone 4 mg/actuation nasal spray (NARCAN) Use 1 spray in one nostril as needed for overdose. May repeat every 2 to 3 min in alternating nostrils until medical assistance is available - verapamil ER (VERELAN) 240 mg 24 hr capsule Take 240 mg by mouth once daily. - naproxen (NAPROSYN) 250 mg tablet Take 250 mg by mouth. - DULoxetine (CYMBALTA) 60 mg capsule duloxetine 60 mg capsule,delayed release - buPROPion XL (WELLBUTRIN XL) 300 mg 24 hr tablet TAKE 1 TABLET BY MOUTH EVERY 24 HOURS. REPLACES PREVIOUS PRESCRIPTION FOR BUPROPION 150 MG TABLET - valsartan (DIOVAN) 160 mg tablet Take 160 mg by mouth every morning. - cetirizine (ZYRTEC) 10 mg tablet Take 10 mg by mouth once daily. - AJOVY SYRINGE 225 mg/1.5 mL syringe - FLUoxetine (PROZAC) 20 mg capsule Take 60 mg by mouth once daily. - pantoprazole DR (PROTONIX) 40 mg tablet Take 40 mg by mouth twice daily. - potassium chloride ER (K-DUR, KLOR-CON) 20 mEq tablet Take 20 mEq by mouth twice daily. - NURTEC ODT 75 mg disintegrating tablet [facility] CNTHERAPYon 02-10-2023 CNTHERAPY OT/PT/Speech Visit ( PTMDRG) TATE BALTAZAR ([id number]) 1975 M Date Time Provider Department 02/10/23 2:45 PM FRANCHESCA LARSON Date Time Provider Department Center 02/10/2023 2:45 PM [id number] LARSON [facility] Reason for Visit: Physical Therapy [503] Primary Visit Diagnosis:S/P right rotator cuff repair [Z98.890] Allergies As of Date: 02/10/2023 Noted Allergy Reaction HYDROCHLOROTHIAZIDE 05/18/2020 14 - Other: See Comments SULFAMETHOXAZOLE-TRIMETHOPRI M 03/26/2020 16 - Unknown 14 - Other: See Comments ACETAMINOPHEN 09/02/2022 14 - Other: See Comments Comments: Rebound headaches ACETAMINOPHEN-CODEINE 07/24/2021 16 - Unknown HYDROCODONE 09/25/2020 14 - Other: See Comments ORANGE JUICE 11/19/2021 16 - Unknown ORANGE OIL 08/07/2015 4 - Hives 14 - Other: See Comments PSEUDOEPHEDRINE 05/20/2021 16 - Unknown VICODIN (HYDROCODONE-ACETAMINOPHE* 1 - Mental Status Change 9 - Itching ARIPIPRAZOLE 02/22/2021 1 - Mental Status Change Date Reviewed: 01/16/2023 Reviewed by: Theresa Schafer MA - Fully Assessed Prescriptions as of 02/10/2023 - tiZANidine (ZANAFLEX) 2 mg tablet Take 1 tablet by mouth three times daily. - oxyCODONE-acetaminophen (PERCOCET) 5-325 mg tablet Take 1-2 tablets by mouth every 4 hours as needed for pain. - oxyCODONE-acetaminophen (PERCOCET) 5-325 mg tablet Take 1-2 tablets by mouth every 4 hours as needed for pain. - ondansetron orally disintegrating (ZOFRAN ODT) 4 mg disintegrating tablet Take 1 tablet by mouth every 8 hours as needed for nausea/vomiting. - docusate sodium (COLACE) 100 mg capsule Take 1 capsule by mouth twice daily. - gabapentin (NEURONTIN) 600 mg tablet Take 1 tablet by mouth three times daily for 90 days. Do not start before August 27, 2022. - tiZANidine HCl (ZANAFLEX) 6 mg capsule Take 1 capsule by mouth daily at bedtime. - naloxone 4 mg/actuation nasal spray (NARCAN) Use 1 spray in one nostril as needed for overdose. May repeat every 2 to 3 min in alternating nostrils until medical assistance is available - verapamil ER (VERELAN) 240 mg 24 hr capsule Take 240 mg by mouth once daily. - naproxen (NAPROSYN) 250 mg tablet Take 250 mg by mouth. - DULoxetine (CYMBALTA) 60 mg capsule duloxetine 60 mg capsule,delayed release - buPROPion XL (WELLBUTRIN XL) 300 mg 24 hr tablet TAKE 1 TABLET BY MOUTH EVERY 24 HOURS. REPLACES PREVIOUS PRESCRIPTION FOR BUPROPION 150 MG TABLET - valsartan (DIOVAN) 160 mg tablet Take 160 mg by mouth every morning. - cetirizine (ZYRTEC) 10 mg tablet Take 10 mg by mouth once daily. - AJOVY SYRINGE 225 mg/1.5 mL syringe - FLUoxetine (PROZAC) 20 mg capsule Take 60 mg by mouth once daily. - pantoprazole DR (PROTONIX) 40 mg tablet Take 40 mg by mouth twice daily. - potassium chloride ER (K-DUR, KLOR-CON) 20 mEq tablet Take 20 mEq by mouth twice daily. - NURTEC ODT 75 mg disintegrating tablet [facility] CNTHERAPYon 02-05-2023 CNTHERAPY OT/PT/Speech Visit ( PTMDRG) TATE BALTAZAR ([id number]) 1975 M Date Time Provider Department 02/05/23 10:00 AM FRANCHESCA LARSON [facility] Date Time Provider Department Center 02/05/2023 10:00 AM [id number], SUSAN PTMG [facility] Reason for Visit: Physical Therapy [503] Primary Visit Diagnosis:S/P right rotator cuff repair [Z98.890] Allergies As of Date: 02/05/2023 Noted Allergy Reaction HYDROCHLOROTHIAZIDE 05/18/2020 14 - Other: See Comments SULFAMETHOXAZOLE-TRIMETHOPRI M 03/26/2020 16 - Unknown 14 - Other: See Comments ACETAMINOPHEN 09/02/2022 14 - Other: See Comments Comments: Rebound headaches ACETAMINOPHEN-CODEINE 07/24/2021 16 - Unknown HYDROCODONE 09/25/2020 14 - Other: See Comments ORANGE JUICE 11/19/2021 16 - Unknown ORANGE OIL 08/07/2015 4 - Hives 14 - Other: See Comments PSEUDOEPHEDRINE 05/20/2021 16 - Unknown VICODIN (HYDROCODONE-ACETAMINOPHE* 1 - Mental Status Change 9 - Itching ARIPIPRAZOLE 02/22/2021 1 - Mental Status Change Date Reviewed: 01/16/2023 Reviewed by: Theresa Schafer MA - Fully Assessed Prescriptions as of 02/05/2023 - tiZANidine (ZANAFLEX) 2 mg tablet Take 1 tablet by mouth three times daily. - oxyCODONE-acetaminophen (PERCOCET) 5-325 mg tablet Take 1-2 tablets by mouth every 4 hours as needed for pain. - oxyCODONE-acetaminophen (PERCOCET) 5-325 mg tablet Take 1-2 tablets by mouth every 4 hours as needed for pain. - ondansetron orally disintegrating (ZOFRAN ODT) 4 mg disintegrating tablet Take 1 tablet by mouth every 8 hours as needed for nausea/vomiting. - docusate sodium (COLACE) 100 mg capsule Take 1 capsule by mouth twice daily. - gabapentin (NEURONTIN) 600 mg tablet Take 1 tablet by mouth three times daily for 90 days. Do not start before August 27, 2022. - tiZANidine HCl (ZANAFLEX) 6 mg capsule Take 1 capsule by mouth daily at bedtime. - naloxone 4 mg/actuation nasal spray (NARCAN) Use 1 spray in one nostril as needed for overdose. May repeat every 2 to 3 min in alternating nostrils until medical assistance is available - verapamil ER (VERELAN) 240 mg 24 hr capsule Take 240 mg by mouth once daily. - naproxen (NAPROSYN) 250 mg tablet Take 250 mg by mouth. - DULoxetine (CYMBALTA) 60 mg capsule duloxetine 60 mg capsule,delayed release - buPROPion XL (WELLBUTRIN XL) 300 mg 24 hr tablet TAKE 1 TABLET BY MOUTH EVERY 24 HOURS. REPLACES PREVIOUS PRESCRIPTION FOR BUPROPION 150 MG TABLET - valsartan (DIOVAN) 160 mg tablet Take 160 mg by mouth every morning. - cetirizine (ZYRTEC) 10 mg tablet Take 10 mg by mouth once daily. - AJOVY SYRINGE 225 mg/1.5 mL syringe - FLUoxetine (PROZAC) 20 mg capsule Take 60 mg by mouth once daily. - pantoprazole DR (PROTONIX) 40 mg tablet Take 40 mg by mouth twice daily. - potassium chloride ER (K-DUR, KLOR-CON) 20 mEq tablet Take 20 mEq by mouth twice daily. - NURTEC ODT 75 mg disintegrating tablet [facility] CNTHERAPYon 01-28-2023 CNTHERAPY OT/PT/Speech Visit ( PTMDRG) TATE BALTAZAR ([id number]) 1975 Date Time Provider Department 01/28/23 2:00 PM FRANCHESCA LARSON PTMLIZETH Date Time Provider Department Center 01/28/2023 2:00 PM [id number], SUSAN PTMG [facility] Reason for Visit: Physical Therapy [503] Primary Visit Diagnosis:S/P right rotator cuff repair [Z98.890] Allergies As of Date: 01/28/2023 Noted Allergy Reaction HYDROCHLOROTHIAZIDE 05/18/2020 14 - Other: See Comments SULFAMETHOXAZOLE-TRIMETHOPRI M 03/26/2020 16 - Unknown 14 - Other: See Comments ACETAMINOPHEN 09/02/2022 14 - Other: See Comments Comments: Rebound headaches ACETAMINOPHEN-CODEINE 07/24/2021 16 - Unknown HYDROCODONE 09/25/2020 14 - Other: See Comments ORANGE JUICE 11/19/2021 16 - Unknown ORANGE OIL 08/07/2015 4 - Hives 14 - Other: See Comments PSEUDOEPHEDRINE 05/20/2021 16 - Unknown VICODIN (HYDROCODONE-ACETAMINOPHE* 1 - Mental Status Change 9 - Itching ARIPIPRAZOLE 02/22/2021 1 - Mental Status Change Date Reviewed: 01/16/2023 Reviewed by: Theresa Schafer MA - Fully Assessed Prescriptions as of 01/28/2023 - tiZANidine (ZANAFLEX) 2 mg tablet Take 1 tablet by mouth three times daily. - oxyCODONE-acetaminophen (PERCOCET) 5-325 mg tablet Take 1-2 tablets by mouth every 4 hours as needed for pain. - oxyCODONE-acetaminophen (PERCOCET) 5-325 mg tablet Take 1-2 tablets by mouth every 4 hours as needed for pain. - ondansetron orally disintegrating (ZOFRAN ODT) 4 mg disintegrating tablet Take 1 tablet by mouth every 8 hours as needed for nausea/vomiting. - docusate sodium (COLACE) 100 mg capsule Take 1 capsule by mouth twice daily. - gabapentin (NEURONTIN) 600 mg tablet Take 1 tablet by mouth three times daily for 90 days. Do not start before August 27, 2022. - tiZANidine HCl (ZANAFLEX) 6 mg capsule Take 1 capsule by mouth daily at bedtime. - naloxone 4 mg/actuation nasal spray (NARCAN) Use 1 spray in one nostril as needed for overdose. May repeat every 2 to 3 min in alternating nostrils until medical assistance is available - verapamil ER (VERELAN) 240 mg 24 hr capsule Take 240 mg by mouth once daily. - naproxen (NAPROSYN) 250 mg tablet Take 250 mg by mouth. - DULoxetine (CYMBALTA) 60 mg capsule duloxetine 60 mg capsule,delayed release - buPROPion XL (WELLBUTRIN XL) 300 mg 24 hr tablet TAKE 1 TABLET BY MOUTH EVERY 24 HOURS. REPLACES PREVIOUS PRESCRIPTION FOR BUPROPION 150 MG TABLET - valsartan (DIOVAN) 160 mg tablet Take 160 mg by mouth every morning. - cetirizine (ZYRTEC) 10 mg tablet Take 10 mg by mouth once daily. - AJOVY SYRINGE 225 mg/1.5 mL syringe - FLUoxetine (PROZAC) 20 mg capsule Take 60 mg by mouth once daily. - pantoprazole DR (PROTONIX) 40 mg tablet Take 40 mg by mouth twice daily. - potassium chloride ER (K-DUR, KLOR-CON) 20 mEq tablet Take 20 mEq by mouth twice daily. - NURTEC ODT 75 mg disintegrating tablet [facility] 01-21-2023 [facility] Telephone ([facility]) TATE BALTAZAR ([id number]) 1975 M Date Time Provider Department 01/21/23 MELVIN LARSEN During your visit today, we recorded the following information about you: Real Hill 01/21/2023 2:47 PM Signed [place] Call Name of caller : Tate Baltazar Relationship to patient: Self Return call phone number : [phone] Reason for call : Other : Brief description of concern : Per the patient, he would like to know why his muscle relaxer medication was canceled. The patient states he understands he missed some appointments, but the medicine helps him sleep better, and he was not able to drive at the time of the appointments. 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 Last scripts written 08/15/22 for 6 months Scheduled 02/16 for FU SPECIALTY CARE COORDINATION QUICK NOTE Called patient Patient identified by name and date of : Yes He states his prescription for Tizanidine 2 mg was cancelled by the pharmacy and he is not able to refill it Reviewed on our end it does not show as cancelled I will call [facility] to clarify and call him back Reviewed he is coming for FU 02/16/23 Will change to [facility] since closer for him Appointment adjusted with Logan Sweet for FU at [facility] Talked with pharmacist Patient identified by name and date of She states Tizanidine 2 mg was cancelled on 12/24/22 Will need a new script for refills Pending script sent to provider for review/approval Norma Young RN 01/21/2023 4:17 PM Signed Called patient Notified new script for tizanidine will be sent in Mireya Sweet PA-C 01/21/2023 4:20 PM Signed Noted. The following approved medication requests have been transmitted electronically. Requested Prescriptions Signed Prescriptions Disp Refills tiZANidine (ZANAFLEX) 2 mg tablet 90 tablet 5 Sig: Take 1 tablet by mouth three times daily. Authorizing Provider: MIREYA SWEET PA-C Allergies As of Date: 01/21/2023 Noted Allergy Reaction HYDROCHLOROTHIAZIDE 05/18/2020 14 - Other: See Comments SULFAMETHOXAZOLE-TRIMETHOPRI M 03/26/2020 16 - Unknown 14 - Other: See Comments ACETAMINOPHEN 09/02/2022 14 - Other: See Comments Comments: Rebound headaches ACETAMINOPHEN-CODEINE 07/24/2021 16 - Unknown HYDROCODONE 09/25/2020 14 - Other: See Comments ORANGE JUICE 11/19/2021 16 - Unknown ORANGE OIL 08/07/2015 4 - Hives 14 - Other: See Comments PSEUDOEPHEDRINE 05/20/2021 16 - Unknown VICODIN (HYDROCODONE-ACETAMINOPHE* 1 - Mental Status Change 9 - Itching ARIPIPRAZOLE 02/22/2021 1 - Mental Status Change Date Reviewed: 01/16/2023 Reviewed by: Theresa Schafer MA - Fully Assessed Reason for Visit: Patient Question [1477] Order(s):tiZANidine (ZANAFLEX) 2 mg tabletTake 1 tablet by mouth three times daily.Disp: 90 tabletRfl: 5 Prescriptions as of 01/21/2023 - tiZANidine (ZANAFLEX) 2 mg tablet Take 1 tablet by mouth three times daily. - oxyCODONE-acetaminophen (PERCOCET) 5-325 mg tablet Take 1-2 tablets by mouth every 4 hours as needed for pain. - oxyCODONE-acetaminophen (PERCOCET) 5-325 mg tablet Take 1-2 tablets by mouth every 4 hours as needed for pain. - ondansetron orally disintegrating (ZOFRAN ODT) 4 mg disintegrating tablet Take 1 tablet by mouth every 8 hours as needed for nausea/vomiting. - docusate sodium (COLACE) 100 mg capsule Take 1 capsule by mouth twice daily. - gabapentin (NEURONTIN) 600 mg tablet Take 1 tablet by mouth three times daily for 90 days. Do not start before August 27, 2022. - tiZANidine HCl (ZANAFLEX) 6 mg capsule Take 1 capsule by mouth daily at bedtime. - naloxone 4 mg/actuation nasal spray (NARCAN) Use 1 spray in one nostril as needed for overdose. May repeat every 2 to 3 min in alternating nostrils until medical assistance is available - verapamil ER (VERELAN) 240 mg 24 hr capsule Take 240 mg by mouth once daily. - naproxen (NAPROSYN) 250 mg tablet Take 250 mg by mouth. - DULoxetine (CYMBALTA) 60 mg capsule duloxetine 60 mg capsule,delayed release - buPROPion XL (WELLBUTRIN XL) 300 mg 24 hr tablet TAKE 1 TABLET BY MOUTH EVERY 24 HOURS. REPLACES PREVIOUS PRESCRIPTION FOR BUPROPION 150 MG TABLET - valsartan (DIOVAN) 160 mg tablet Take 160 mg by mouth every morning. - cetirizine (ZYRTEC) 10 mg tablet Take 10 mg by mouth once daily. - AJOVY SYRINGE 225 mg/1.5 mL syringe - FLUoxetine (PROZAC) 20 mg capsule Take 60 mg by mouth once daily. - pantoprazole DR (PROTONIX) 40 mg tablet Take 40 mg by mouth twice daily. - potassium chloride ER (K-DUR, KLOR-CON) 20 mEq tablet Take 20 mEq by mouth twice daily. - NURTEC ODT 75 mg disintegrating tablet Problem List As O (more content not included)... Normal [facility] CNOVon 01-16-2023 CNOV Office Visit (ORMDRG ) TATE BALTAZAR ([id number]) 1975 M Date Time Provider Department 01/16/23 11:15 AM KISHA WALTERS ORJONAS During your visit today, we recorded the following information about you: Kisha Walters PA-C 01/16/2023 12:55 PM Signed Kisha Walters PA-C Department of Orthopaedics January 16, 2023 SURGERY: Right shoulder arthroscopic rotator cuff Supraspinatus, 1 cm, acromioplasty SUBJECTIVE: Patient returns to clinic now 1 week status post the above procedure. Wearing sling as directed. Pain controlled on pain medication. Has been to PT. Exam: Examination of shoulder reveals healing portal sites without erythema or drainage. Resolving ecchymoses. Able to flex and extend through elbow and digits. ASSESSMENT: Z98.890 S/P rotator cuff repair SUMMARY/PLAN: Continue with PT phase 1 exercises. No lifting greater than 1 lb with arm. Discussed sling use. Continue to ice the shoulder. Refilled Percocet. Return to clinic in 4 weeks for repeat examination. JON Kennedy Abigail, PA-C 01/16/2023 4:26 PM Signed Addended by: KISHA WALTERS on: 01/16/2023 04:26 PM Modules accepted: Orders Allergies As of Date: 01/16/2023 Noted Allergy Reaction HYDROCHLOROTHIAZIDE 05/18/2020 14 - Other: See Comments SULFAMETHOXAZOLE-TRIMETHOPRI M 03/26/2020 16 - Unknown 14 - Other: See Comments ACETAMINOPHEN 09/02/2022 14 - Other: See Comments Comments: Rebound headaches ACETAMINOPHEN-CODEINE 07/24/2021 16 - Unknown HYDROCODONE 09/25/2020 14 - Other: See Comments ORANGE JUICE 11/19/2021 16 - Unknown ORANGE OIL 08/07/2015 4 - Hives 14 - Other: See Comments PSEUDOEPHEDRINE 05/20/2021 16 - Unknown VICODIN (HYDROCODONE-ACETAMINOPHE* 1 - Mental Status Change 9 - Itching ARIPIPRAZOLE 02/22/2021 1 - Mental Status Change Date Reviewed: 01/16/2023 Reviewed by: Theresa Schafer MA - Fully Assessed Reason for Visit: Established Patient [175] Follow Up [171] Post Op [174] Visit Diagnosis:S/P rotator cuff repair [Z98.890] Order(s):oxyCODONE-acetamino phen (PERCOCET) 5-325 mg tabletTake 1-2 tablets by mouth every 4 hours as needed for pain.Disp: 28 tabletRfl: 0 oxyCODONE-acetaminophen (PERCOCET) 5-325 mg tabletTake 1-2 tablets by mouth every 4 hours as needed for pain.Disp: 28 tabletRfl: 0 Prescriptions as of 01/16/2023 - oxyCODONE-acetaminophen (PERCOCET) 5-325 mg tablet Take 1-2 tablets by mouth every 4 hours as needed for pain. - oxyCODONE-acetaminophen (PERCOCET) 5-325 mg tablet Take 1-2 tablets by mouth every 4 hours as needed for pain. - ondansetron orally disintegrating (ZOFRAN ODT) 4 mg disintegrating tablet Take 1 tablet by mouth every 8 hours as needed for nausea/vomiting. - docusate sodium (COLACE) 100 mg capsule Take 1 capsule by mouth twice daily. - gabapentin (NEURONTIN) 600 mg tablet Take 1 tablet by mouth three times daily for 90 days. Do not start before August 27, 2022. - tiZANidine (ZANAFLEX) 2 mg tablet Take 1 tablet by mouth three times daily. - tiZANidine HCl (ZANAFLEX) 6 mg capsule Take 1 capsule by mouth daily at bedtime. - naloxone 4 mg/actuation nasal spray (NARCAN) Use 1 spray in one nostril as needed for overdose. May repeat every 2 to 3 min in alternating nostrils until medical assistance is available - verapamil ER (VERELAN) 240 mg 24 hr capsule Take 240 mg by mouth once daily. - naproxen (NAPROSYN) 250 mg tablet Take 250 mg by mouth. - DULoxetine (CYMBALTA) 60 mg capsule duloxetine 60 mg capsule,delayed release - buPROPion XL (WELLBUTRIN XL) 300 mg 24 hr tablet TAKE 1 TABLET BY MOUTH EVERY 24 HOURS. REPLACES PREVIOUS PRESCRIPTION FOR BUPROPION 150 MG TABLET - valsartan (DIOVAN) 160 mg tablet Take 160 mg by mouth every morning. - cetirizine (ZYRTEC) 10 mg tablet Take 10 mg by mouth once daily. - AJOVY SYRINGE 225 mg/1.5 mL syringe - FLUoxetine (PROZAC) 20 mg capsule Take 60 mg by mouth once daily. - pantoprazole DR (PROTONIX) 40 mg tablet Take 40 mg by mouth twice daily. - potassium chloride ER (K-DUR, KLOR-CON) 20 mEq tablet Take 20 mEq by mouth twice daily. - NURTEC ODT 75 mg disintegrating tablet Problem List As Of Date 01/16/2023 Noted Resolved Pilonidal cyst with abscess [L05.01] 06/06/2010 Epigastric pain [R10.13] 09/27/2015 10/23/2017 Essential hypertension [I10] 10/01/2015 Depression [F32.A] 10/01/2015 RSD (reflex sympathetic dystrophy) [G90.50] 10/01/2015 Encounter for sterilization [Z30.2] 04/21/2016 Nontraumatic subcortical hemorrhage of left cer*10/19/2017 Dysphagia due to recent stroke [I69.391] 10/20/2017 Acute right hemiparesis (HCC) [G81.91] 10/20/2017 TSH deficiency [E03.8] 10/20/2017 Cerebral edema (HCC) [G93.6] 10/20/2017 10/23/2017 Migraine without aura [G43.009] 10/21/2017 Arthropathy of lumbar facet joint [M47.816] 07/10/2020 Lumbar radiculopathy [M54.16] 03/26/2020 Cerebrova (more content not included)... Normal [facility] CNTHERAPYon 01-16-2023 CNTHERAPY OT/PT/Speech Visit ( PTMDRG) BALTAZARTATE Annette ([id number]) 1975 M Date Time Provider Department 01/16/23 9:30 AM ELOISE HEBERT PTMDRG Date Time Provider Department Center 01/16/2023 9:30 AM [id number], JULIE PTMDRG [facility] Reason for Visit: PT Eval [747] Primary Visit Diagnosis:S/P right rotator cuff repair [Z98.890] Allergies As of Date: 01/16/2023 Noted Allergy Reaction HYDROCHLOROTHIAZIDE 05/18/2020 14 - Other: See Comments SULFAMETHOXAZOLE-TRIMETHOPRI M 03/26/2020 16 - Unknown 14 - Other: See Comments ACETAMINOPHEN 09/02/2022 14 - Other: See Comments Comments: Rebound headaches ACETAMINOPHEN-CODEINE 07/24/2021 16 - Unknown HYDROCODONE 09/25/2020 14 - Other: See Comments ORANGE JUICE 11/19/2021 16 - Unknown ORANGE OIL 08/07/2015 4 - Hives 14 - Other: See Comments PSEUDOEPHEDRINE 05/20/2021 16 - Unknown VICODIN (HYDROCODONE-ACETAMINOPHE* 1 - Mental Status Change 9 - Itching ARIPIPRAZOLE 02/22/2021 1 - Mental Status Change Date Reviewed: 01/16/2023 Reviewed by: Theresa Schafer MA - Fully Assessed Prescriptions as of 01/20/2023 - oxyCODONE-acetaminophen (PERCOCET) 5-325 mg tablet Take 1-2 tablets by mouth every 4 hours as needed for pain. - oxyCODONE-acetaminophen (PERCOCET) 5-325 mg tablet Take 1-2 tablets by mouth every 4 hours as needed for pain. - ondansetron orally disintegrating (ZOFRAN ODT) 4 mg disintegrating tablet Take 1 tablet by mouth every 8 hours as needed for nausea/vomiting. - docusate sodium (COLACE) 100 mg capsule Take 1 capsule by mouth twice daily. - gabapentin (NEURONTIN) 600 mg tablet Take 1 tablet by mouth three times daily for 90 days. Do not start before August 27, 2022. - tiZANidine (ZANAFLEX) 2 mg tablet Take 1 tablet by mouth three times daily. - tiZANidine HCl (ZANAFLEX) 6 mg capsule Take 1 capsule by mouth daily at bedtime. - naloxone 4 mg/actuation nasal spray (NARCAN) Use 1 spray in one nostril as needed for overdose. May repeat every 2 to 3 min in alternating nostrils until medical assistance is available - verapamil ER (VERELAN) 240 mg 24 hr capsule Take 240 mg by mouth once daily. - naproxen (NAPROSYN) 250 mg tablet Take 250 mg by mouth. - DULoxetine (CYMBALTA) 60 mg capsule duloxetine 60 mg capsule,delayed release - buPROPion XL (WELLBUTRIN XL) 300 mg 24 hr tablet TAKE 1 TABLET BY MOUTH EVERY 24 HOURS. REPLACES PREVIOUS PRESCRIPTION FOR BUPROPION 150 MG TABLET - valsartan (DIOVAN) 160 mg tablet Take 160 mg by mouth every morning. - cetirizine (ZYRTEC) 10 mg tablet Take 10 mg by mouth once daily. - AJOVY SYRINGE 225 mg/1.5 mL syringe - FLUoxetine (PROZAC) 20 mg capsule Take 60 mg by mouth once daily. - pantoprazole DR (PROTONIX) 40 mg tablet Take 40 mg by mouth twice daily. - potassium chloride ER (K-DUR, KLOR-CON) 20 mEq tablet Take 20 mEq by mouth twice daily. - NURTEC ODT 75 mg disintegrating tablet [facility] POSTPROC EVALon 023 [facility] POSTPROC EVAL HNO ID: [id number] Author: Malcolm Coyne MD Service: Anesthesiology Author Type: Physician Type: Anesthesia Postprocedure Evaluation Filed: 01/09/2023 5:25 PM Note Text: POST ANESTHESIA EVALUATION NOTE : 1975 Procedure Summary Date: 01/09/23 Room / Location: [facility] OR01 / [facility] Anesthesia Start: 1311 Anesthesia Stop: 1449 Procedure: ARTHROSCOPY SHOULDER ROTATOR CUFF (Right: Shoulder) Diagnosis: Incomplete tear of right rotator cuff, unspecified whether traumatic Chronic pain of right knee (Incomplete tear of right rotator cuff, unspecified whether traumatic [M75.111]) (Chronic pain of right knee [M25.561, G89.29]) Surgeons: Mal Gotti MD Responsible Provider: Malcolm Coyne MD Anesthesia Type: general ASA Status: 3 Anesthesia Type: general Airway Type: ETT Last Vitals Vitals Value Taken Time BP 150/90 01/09/23 1515 Temp 36.4 ?C (97.5 ?F) 01/09/23 1445 Pulse 75 01/09/23 1523 Resp 14 01/09/23 1523 SpO2 93 % 01/09/23 1523 Vitals shown include unvalidated device data. Post Anesthesia Patient Status Patient Evaluation: PACU. PACU/ICU Patient Condition: stable. Anticipated Disposition: phase 2 then home. Neurological Status: aware and responsive. Pulmonary Status: breathing comfortably on room air Airway Control: returned to baseline unsupported. Cardiovascular Status: stable. Pain Management: clinically adequate - multimodal analgesia pain management approach Postoperative Hydration: acceptable. Intraoperative Events: no significant anesthesia events Recommendation: continue current plan of care. Anesthesia Observations No notable events were associated with this procedure. Documented by Vicenta Serrato SRNA 01/09/2023 2:49 PM EDT SIGNATURE: Malcolm Coyne MD PATIENT NAME: Tate Baltazar DATE: January 09, 2023 TIME: 5:25 PM CSN: [id number] [facility] ANES PRE-OPon 01-09-2023 ANES PRE-OP HNO ID: [id number] Author: Kathia Oconnor DO Service: Anesthesiology Author Type: Physician Type: Anesthesia Preprocedure Evaluation Filed: 01/09/2023 12:20 PM Note Text: ANESTHESIOLOGY DAY OF SURGERY NOTE : 1975 Procedure Information Date/Time: 01/09/23 1330 Procedure: ARTHROSCOPY SHOULDER ROTATOR CUFF (Right: Shoulder) Location: [facility] OR01 / [facility] Surgeons: Mal Gotti MD Estimated body mass index is 30.25 kg/m? as calculated from the following: Height as of 12/15/22: 190.5 cm (6' 3). Weight as of 12/15/22: 109.8 kg (242 lb). Most recent hematocrit and potassium results: Hematocrit 44.9 06/29/2022 Potassium 3.7 12/15/2022 Relevant Problems ANESTHESIA (+) JANNETTE (obstructive sleep apnea) CARDIO (+) Essential hypertension (+) Intractable chronic migraine without aura (+) Migraine without aura ENDO (+) TSH deficiency GI (+) Gastroesophageal reflux disease with esophagitis NEURO-PSYCH (+) Cerebrovascular accident (HCC) (+) History of subarachnoid hemorrhage (+) Intractable chronic migraine without aura (+) Migraine without aura PULMONARY (+) JANNETTE (obstructive sleep apnea) I - PHYSICAL EVALUATION AIRWAY Patient intubated: No. Tracheostomy tube not present Mallampati: II. TM distance: >3 FB. Neck ROM: full ROM without neurological symptoms. Mouth opening: adequate. Short neck: no. Thick neck: no DENTAL Dental findings: teeth intact. Additional exam findings: yes. CARDIOVASCULAR Rhythm: regular Rate: normal PULMONARY Breath sounds clear to auscultation. II - ANESTHESIA PLAN ASA Score: 3 Anesthetic Plan: general Airway type: ETT NPO Status: adequate Beta Trae Monitoring Plan Monitoring plan: standard ASA. Post Procedure Analgesic Plan Postoperative analgesic plan: parenteral or oral opioids, multimodal analgesia, per surgical service and peripheral nerve block. Informed Consent Anesthetic risks, benefits, alternatives, personnel and consent discussed: yes. Patient / Responsible [employer] agrees to proceed: yes Patient / Surrogate agrees to blood products: Yes DNR status not reviewed with patient and/or family prior to surgery. Significant changes in the patient condition since the History and Physical, not otherwise documented in primary service progress note: no. Potential Anesthesia issues that may suggest increased risk of complications or contraindication to planned procedure: none. Discussed the possibility of lip / dental damage: yes Vitals Value Taken Time BP 143/69 01/09/23 1040 Pulse 74 01/09/23 1040 Resp 16 01/09/23 1040 Temp 36.1 ?C (97 ?F) 01/09/23 1040 SpO2 97 % 01/09/23 1040 Facility-Administered Medications as of 01/09/2023 Medication Dose Route Frequency - lidocaine (PF) 10 mg/mL (1 %) 1-2 mg injection (XYLOCAINE) 0.1-0.2 mL INTRADERMAL PRN - lactated ringers iv infusion 5-30 mL/hr INTRAVENOUS CONTINUOUS - NaCl 0.9% iv flush bag 20 mL INTRAVENOUS PRN - ceFAZolin iv piggyback 2 g in D5W (iso-osmotic) 100 mL (ANCEF) 2 g INTRAVENOUS Pre-Op Once - [COMPLETED] acetaminophen 1,000 mg tab(s) (TYLENOL) 1,000 mg ORAL Pre-Op Once - midazolam (PF) 2 mg injection (VERSED) 2 mg INTRAVENOUS Pre-Op Once Outpatient Medications as of 01/09/2023 Medication Sig - verapamil ER (VERELAN) 240 mg 24 hr capsule Take 240 mg by mouth once daily. - buPROPion XL (WELLBUTRIN XL) 300 mg 24 hr tablet TAKE 1 TABLET BY MOUTH EVERY 24 HOURS. REPLACES PREVIOUS PRESCRIPTION FOR BUPROPION 150 MG TABLET - valsartan (DIOVAN) 160 mg tablet Take 160 mg by mouth every morning. - FLUoxetine (PROZAC) 20 mg capsule Take 60 mg by mouth once daily. - potassium chloride ER (K-DUR, KLOR-CON) 20 mEq tablet Take 20 mEq by mouth twice daily. - gabapentin (NEURONTIN) 600 mg tablet Take 1 tablet by mouth three times daily for 90 days. Do not start before August 27, 2022. - tiZANidine (ZANAFLEX) 2 mg tablet Take 1 tablet by mouth three times daily. (Patient not taking: Reported on 12/15/2022) - tiZANidine HCl (ZANAFLEX) 6 mg capsule Take 1 capsule by mouth daily at bedtime. - naloxone 4 mg/actuation nasal spray (NARCAN) Use 1 spray in one nostril as needed for overdose. May repeat every 2 to 3 min in alternating nostrils until medical assistance is available - naproxen (NAPROSYN) 250 mg tablet Take 250 mg by mouth. - DULoxetine (CYMBALTA) 60 mg capsule duloxetine 60 mg capsule,delayed release - cetirizine (ZYRTEC) 10 mg tablet Take 10 mg by mouth once daily. - AJOVY SYRINGE 225 mg/1.5 mL syringe - pantoprazole DR (PROTONIX) 40 mg tablet Take 40 mg by mouth twice daily. - NURTEC ODT 75 mg disintegrating tablet I have interviewed and examined the patient. I have reviewed the medical record and/or the pre-anesthesia evaluation, pertinent labs, and test results. This contains updated information obtained within 48 hours of Surgery/Procedure. SIGNATURE: Kathia Oconnor DO PATIENT NAME: Tate Villalobos (more content not included)... [facility] HISTORY PHYSICALon HISTORY PHYSICAL HNO ID: [id number] Author: Mal Gotti MD Service: Orthopaedic Surgery Author Type: Physician Type: HANDP Filed: 01/09/2023 12:25 PM Note Text: UPDATED HISTORY AND PHYSICAL EXAMINATION SERVICE DATE: 01/09/2023 SERVICE TIME: 12:24 PM PHYSICAL EXAM MUST BE COMPLETED ON ADMISSION The History and Physical (completed in the past 30 days) has been reviewed and the patient has been examined. The contents accurately reflect the patient's condition with the following additions or revisions since the HANDP was completed. Examination indicates no changes. This HANDP can be found in the Electronic Medical Record dated 12/15/22. SIGNATURE: Mal Gotti MD PATIENT NAME: Tate Baltazar DATE: January 09, 2023 TIME: 12:24 PM [facility] NURSING PROGon 01-09-2023 NURSING PROG HNO ID: [id number] Author: Reynaldo Mahmood RN Service: ? Author Type: Registered Nurse Type: Nursing Progress Note Filed: 01/09/2023 1:07 PM Note Text: Dr. Oconnor at bedside for Ultrasound guided Right Intrclavicular nerve block. RN at bedside, pt monitored throughout, BP 143/69 Pulse 74 Temp 36.1 ?C (97 ?F) (Temporal Artery) Resp 16 SpO2 97% . Pt medicated with 2mg Versed. Pt tolerated procedure without difficulty. Family called to bedside at completion of procedure. Report to CLEM Gifford. Correct side marked by Dr. Oconnor AND Dr. Gotti. [facility] OPERATIVE NOon 01-09-2023 OPERATIVE NO HNO ID: [id number] Author: Mal Gotti MD Service: Orthopaedic Surgery Author Type: Physician Type: Operative Report Filed: 01/09/2023 2:57 PM Note Text: OPERATIVE/PROCEDURE REPORT LOG ID: [id number] SURGERY/PROCEDURE DATE: 01/09/2023 INCISION/PROCEDURE START TIME: 1:55 PM INCISION CLOSE/PROCEDURE END TIME: 2:33 PM SURGEON(S)/PROCEDURALIST(S) AND CABLE INSTALLER(S): Surgeon(s) and Role: * Mal Gotti MD - Primary Physician Environmental Programs Specialist: Kisha Walters PA-C; Yazmin Bonds PA-C SURGERY/PROCEDURE(S): Right shoulder arthroscopic rotator cuff repair of high-grade partial tear of supraspinatus (1 cm), arthroscopic acromioplasty ANESTHESIA: General SURGERY/PROCEDURE DETAILS: Tate Baltazar is a 47 year old man who presented with right shoulder pain that had been limiting the ability to perform daily activities and had not responded to conservative management. Exam and MRI findings were concerning for supraspinatus tear. I offered arthroscopic surgery for the purposes of pain relief and improved function of the shoulder. Medically relevant risks, benefits, and alternatives to the procedure were discussed in detail in the office prior to surgery. No guarantees as to the outcome of surgery were given or implied. The patient expressed agreement and understanding with the plan prior to scheduling surgery. The patient was greeted in the preoperative holding area and identified by name and date of . A preoperative nerve block was administered. The patient was taken to the operating room and transferred to the operating table in the supine position. General anesthesia was induced with endotracheal intubation. The patient was placed in the beach chair position with bilateral lower extremities padded and bilateral lower extremity sequential compression devices were applied. Intravenous antibiotic was given. The right shoulder and upper extremity were prepped and draped in a sterile fashion. A time out procedure was performed and this confirmed the correct patient, site, and procedure to be performed. I began by performing a diagnostic arthroscopy of the shoulder using a standard posterior portal. Examination of the humeral and glenoid cartilage revealed Outerbridge grade 1 humerus and grade 1 glenoid. The glenoid labrum was torn superiorly. Long head of biceps tendon was absent following previous tenodesis. The upper border of subscapularis was examined after resecting a small amount of synovial tissue from within the rotator interval. This was found to be intact. The undersurface of the supraspinatus and infraspinatus tendons was examined and high-grade tearing was visible. Final pictures were taken and the arthroscope was removed from the joint. Next I entered the subacromial space using the posterior portal. Bursal tissue overlying the rotator cuff was cleared with a shaver after making a lateral portal under direct visualization after localizing with a spinal needle. Once the bursa had been resected with shaver I inserted the arthroscope into the lateral portal for full visualization of the subacromial space and rotator cuff. This revealed weakness in the area identified from the intra-articular side. I completed the tear with the shaver for a distance of 1 cm [id number]. Arthroscopic rotator cuff repair was then performed using a single-row technique. Remaining bursa and scar tissue was removed from the greater tuberosity to fully visualize the tear. I used a shaver to debride the end of the tendon to healthy tissue. I used a bur to resect a small amount of bone to create a bleeding surface for repair. Tendon mobility was tested using a grasper and found to be excellent, and tissue quality was also suitable for single-row repair. I grasped the tendon using a Scorpion suture passer and passed 2 limbs of suture from inferior to superior, medial to the tendon edge. Single row repair was completed using 1 anchor. Solid fixation was confirmed under direct visualization and by use of a probe. Acromial spur was visualized and this was found to come in to close proximity to the supraspinatus insertion on range of motion testing. I performed a subacromial decompression to resect this to a flat surface using a bur. Portal incisions were closed with Monocryl suture. A dry sterile dressing was applied. The patient was placed in a sling and swathe and awakened from anesthesia, and was transferred to the cart and taken to recovery in good condition. No qualified resident/fellow was available. dam tender assistant, Kisha Walters PA-C, assisted with patient positioning, retraction and assistance during the procedure, as well as deep and superficial wound closure. PRE-OP/PRE-PROCEDURE DIAGNOSIS: Right shoulder rotator cuff tear POST-OP/POST-PROCEDURE DIAGNOSIS: Same as Preop ESTIMATED BLOOD LOSS: 1 mls SPECIMENS: None IMPLANTABLE DEVICES: (more content not included)... Normal [facility] HISTORY PHYSICALon 3 HISTORY PHYSICAL HNO ID: [id number] Author: Domingo Ramon PA-C Service: ? Author Type: Physician Environmental Programs Specialist Type: HANDP Filed: 12/16/2022 9:42 AM Note Text: HISTORY AND PHYSICAL EXAMINATION SERVICE DATE: 12/15/2022 SERVICE TIME: 2:09 PM PRIMARY CARE PHYSICIAN: Lanette Harkins DO REASON FOR VISIT: Tate Baltazar is a 47 year old male who is scheduled for Procedure(s): ARTHROSCOPY SHOULDER ROTATOR CUFF (Right) at the request of Dr. Gotti, Mal Albert MD for consultation. My final recommendation will be communicated back to the requesting physician by way of shared medical record or letter. Subjective The patient has the following: ACTIVE PROBLEM LIST Pilonidal Cyst With Abscess Essential Hypertension Depression Rsd (Reflex Sympathetic Dystrophy) Encounter for Sterilization Nontraumatic Subcortical Hemorrhage of Left Cerebral Hemisphere (Hcc) Dysphagia Due to Recent Stroke Acute Right Hemiparesis (Hcc) Tsh Deficiency Migraine Without Aura Arthropathy of Lumbar Facet Joint Lumbar Radiculopathy Cerebrovascular Accident (Hcc) Chronic Low Back Pain Degeneration of Intervertebral Disc of Lumbar Region Gastroesophageal Reflux Disease With Esophagitis Generalized Osteoarthritis Hypercalcemia Intractable Chronic Migraine Without Aura Osteoarthritis of Right Shoulder Palpitations Strain of Neck Muscle Spasm of Back Muscles Pain in Right Knee Chronic Right Shoulder Pain Stiffness of Hip Joint Abnormal Kidney Function History of Subarachnoid Hemorrhage Senior Living (Current) Use of Opiate 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 Genital Organs Epididymitis Family History of Malignant Neoplasm of Prostate Scrotal Mass Left Testicular Pain Neoplasm of Uncertain Behavior of Skin Other Chronic Pain Lower Abdominal Pain Chronic Right-Sided Thoracic Back Pain Contusion of Right Hip Region Decreased Hearing of Right Ear Diarrhea Senior Living Prescription Opiate Use Jannette (Obstructive Sleep Apnea) Unilateral Primary Osteoarthritis, Right Knee Hypokalemia COVID-19 Immunization Status Overdue - COVID-19 VACCINE (1) Overdue - never done No completion, postpone, frequency change, or communication history exists for this topic. CHIEF COMPLAINT: Pre-anesthesia optimization HPI: Tate Baltazar is a 47 year old male presenting for pre-anesthesia consultation. Pt has history of right shoulder pain, imaging revealed tear of rotator cuff. Reports biceps tendon repair previously on the right arm. Above procedure recommended to manage symptoms. Procedure scheduled on 01/09/2023 at [place]. REVIEW OF SYSTEMS: General: No weight loss, malaise or fevers. Neurological: + chronic pain, reflex sympathetic dystrophy - right side Positive for: headaches (reports daily headache, uses monthly IM to control) and strokes (x 2, last 2018). Patient's stroke is with residual deficits. Negative for: multiple sclerosis, Parkinson's disease and seizures. Respiratory: Positive for: obstructive sleep apnea and CPAP/BiPAP noncompliant. Negative for: asthma, COPD, current cough, dyspnea, tobacco use and URI < 2 weeks. Cardiovascular: Positive for: hypertension Negative for: arrhythmia, atrial fibrillation, CAD (C negative for occlusion), chest pain, DVT/PE, hyperlipidemia and murmur/valvular heart disease. GI: Positive for: dysphagia (post stroke, with food and meds), GERD and irritable bowel syndrome (diarrhea) Negative for: inflammatory bowel disease, liver disease and ETOH >2 drinks/day. : Positive for: BPH and frequent urination. Negative for: dysuria, urinary incontinence, nephrolithiasis, renal failure and urinary tract infection. Endocrine: No history of diabetes. Has not taken steroids within the past 30 days. No history of endocrinological symptoms or problems. Hematology: Positive for: bruises/bleeds easily. Oncology: No history of CA metastasis, chemo within 30 days, or radiotherapy within 90 days. No history of oncological symptoms or problems. Psych: Positive for: depression. Negative for: anxiety. Musculoskeletal: See HPI. Positive for: back pain and joint pain (injections in knees). Skin: Negative for lesions, rash and itching. PAST MEDICAL HISTORY Diagnosis Date Back pain Depression Dysphagia due to recent stroke 10/20/2017 Hypertension Migraines 2001 JANNETTE (obstructive sleep apnea) 03/17/2019 RSD lower limb right leg RSD upper limb right hand PAST SURGICAL HISTORY Procedure Laterality Date APPENDECTOMY CARPAL TUNNEL Left 2014 COLONOSCOPY 20's with EGD EGD TRANSORAL BIOPSY SINGLE/MULTIPLE 10/02/15 EXCISION PILONIDAL CYST/SINUS EXTENSIVE 07/05/10 closed PAST SURGICAL HISTORY OF right knee surgery TONSILLECTOMY PRIMARY/SECONDARY Tonsillectomy VASECTOMY UNI/BI SPX W/POSTOP SEMEN EXAMS Bilateral 05/23/2016 FAMILY HISTORY Problem Relation Age of Onset Prostate Cancer Father Hypertension Father Social (more content not included)... Normal [facility] POTASSIUM BLDon 12-15-2022 Potassium [Moles/Vol] 3.7 mmol/L Normal 3.7-5.1 [facility] Comment on above: Order Comment: Speci men Type: BLOOD SPECIMENOrdering Facility: [facility] Address: [address], [place] [address] Performed By: #### K 1 ####[facility] [id number] [place] [address] [facility] Ulices 11-28-2022 CNPN Telephone (SIAMDNA) TATE BALTAZAR ([id number]) 1975 M Date Time Provider Department 11/28/22 MAL GOTTI During your visit today, we recorded the following information about you: Edelmira Ibanez Med Sedc 11/28/2022 2:44 PM Signed Please reach out and assist with scheduling patient for post-op physical therapy. His surgery is 01-09-2023. He should be seen approximately 1 week post-op. Thank you. Edelmira Barbetta Med Sedc Edelmira Ibanez [facility] 12/01/2022 1:19 PM Signed Patient is scheduled for 01-16-23 for Physical therapy. Allergies As of Date: 11/28/2022 Noted Allergy Reaction HYDROCHLOROTHIAZIDE 05/18/2020 14 - Other: See Comments SULFAMETHOXAZOLE-TRIMETHOPRI M 03/26/2020 16 - Unknown ACETAMINOPHEN-CODEINE 07/24/2021 16 - Unknown ORANGE JUICE 11/19/2021 16 - Unknown PSEUDOEPHEDRINE 05/20/2021 16 - Unknown VICODIN (HYDROCODONE-ACETAMINOPHE* 1 - Mental Status Change 9 - Itching ARIPIPRAZOLE 02/22/2021 1 - Mental Status Change Date Reviewed: 11/14/2022 Reviewed by: Theresa Schafer MA - Fully Assessed Reason for Visit: Appointment [186] Cmt: Post-op physical therapy Prescriptions as of 12/01/2022 - oxyCODONE-acetaminophen (PERCOCET) 10-325 mg tablet Take 1 tablet by mouth three times daily as needed for pain for up to 30 days. Do not start before November 25, 2022. - gabapentin (NEURONTIN) 600 mg tablet Take 1 tablet by mouth three times daily for 90 days. Do not start before August 27, 2022. - tiZANidine (ZANAFLEX) 2 mg tablet Take 1 tablet by mouth three times daily. - tiZANidine HCl (ZANAFLEX) 6 mg capsule Take 1 capsule by mouth daily at bedtime. - naloxone 4 mg/actuation nasal spray (NARCAN) Use 1 spray in one nostril as needed for overdose. May repeat every 2 to 3 min in alternating nostrils until medical assistance is available - verapamil ER (VERELAN) 240 mg 24 hr capsule Take 240 mg by mouth once daily. - naproxen (NAPROSYN) 250 mg tablet Take 250 mg by mouth. - DULoxetine (CYMBALTA) 60 mg capsule duloxetine 60 mg capsule,delayed release - buPROPion XL (WELLBUTRIN XL) 300 mg 24 hr tablet TAKE 1 TABLET BY MOUTH EVERY 24 HOURS. REPLACES PREVIOUS PRESCRIPTION FOR BUPROPION 150 MG TABLET - valsartan (DIOVAN) 160 mg tablet Take 160 mg by mouth every morning. - cetirizine (ZYRTEC) 10 mg tablet Take 10 mg by mouth once daily. - AJOVY SYRINGE 225 mg/1.5 mL syringe - FLUoxetine (PROZAC) 20 mg capsule Take 60 mg by mouth once daily. - pantoprazole DR (PROTONIX) 40 mg tablet Take 40 mg by mouth twice daily. - potassium chloride ER (K-DUR, KLOR-CON) 20 mEq tablet Take 20 mEq by mouth twice daily. - NURTEC ODT 75 mg disintegrating tablet Problem List As Of Date 11/28/2022 Noted Resolved Pilonidal cyst with abscess [L05.01] 06/06/2010 Epigastric pain [R10.13] 09/27/2015 10/23/2017 Essential hypertension [I10] 10/01/2015 Depression [F32.A] 10/01/2015 RSD (reflex sympathetic dystrophy) [G90.50] 10/01/2015 Encounter for sterilization [Z30.2] 04/21/2016 Nontraumatic subcortical hemorrhage of left cer*10/19/2017 Dysphagia due to recent stroke [I69.391] 10/20/2017 Acute right hemiparesis (HCC) [G81.91] 10/20/2017 TSH deficiency [E03.8] 10/20/2017 Cerebral edema (HCC) [G93.6] 10/20/2017 10/23/2017 Migraine without aura [G43.009] 10/21/2017 Arthropathy of lumbar facet joint [M47.816] 07/10/2020 Lumbar radiculopathy [M54.16] 03/26/2020 Cerebrovascular accident (HCC) [I63.9] 11/19/2021 Chronic low back pain [M54.50, G89.29] 11/19/2021 Degeneration of intervertebral disc of lumbar r*03/26/2020 Gastroesophageal reflux disease with esophagiti*11/19/2021 Generalized osteoarthritis [M15.9] 03/26/2020 Hypercalcemia [E83.52] 11/19/2021 Intractable chronic migraine without aura [G43.*03/07/2020 Osteoarthritis of right shoulder [M19.011] 07/10/2020 Palpitations [R00.2] 11/19/2021 Strain of neck muscle [S16.1XXA] 11/19/2021 Spasm of back muscles [M62.830] 11/19/2021 Pain in right knee [M25.561] 11/19/2021 Chronic right shoulder pain [M25.511, G89.29] 11/19/2021 Stiffness of hip joint [M25.659] 12/20/2021 Abnormal kidney function [N28.9] 12/20/2021 History of subarachnoid hemorrhage [Z86.79] 12/20/2021 [facility] (current) use of 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 [Z7*12/20/2021 Disorder of male genital organs [N50.9] 01/21/2022 Epididymitis [N45.1] 01/21/2022 Family history of malignant neoplasm of prostat*01/21/2022 Scrotal mass [N50.89] 01/21/2022 Left testicular pain [N50.812] 11/13/2021 Neoplasm of uncertain behavior of skin [D48.5] 03/13/2021 Other chronic pain [G89.29] 05/20/2022 Lower abdominal pain [R10.30] 05/22/2022 Encounter Status:Closed by NOAM LIVINGSOTNEDELMIRA on 12/01/22 [facility] Tele[facility] (MYLES) TATE BALTAZAR ([id number]) 1975 M Date Time Provider Department 11/19/22 MAL GOTTI During your visit today, we recorded the following information about you: Edelmira Ibanez [facility] 11/19/2022 2:08 PM Signed Please sign post-op physical therapy orders. Thank you. Edelmira Ibanez [facility] Allergies As of Date: 11/19/2022 Noted Allergy Reaction HYDROCHLOROTHIAZIDE 05/18/2020 14 - Other: See Comments SULFAMETHOXAZOLE-TRIMETHOPRI M 03/26/2020 16 - Unknown ACETAMINOPHEN-CODEINE 07/24/2021 16 - Unknown ORANGE JUICE 11/19/2021 16 - Unknown PSEUDOEPHEDRINE 05/20/2021 16 - Unknown VICODIN (HYDROCODONE-ACETAMINOPHE* 1 - Mental Status Change 9 - Itching ARIPIPRAZOLE 02/22/2021 1 - Mental Status Change Date Reviewed: 11/14/2022 Reviewed by: Theresa Schafer MA - Fully Assessed Reason for Visit: Orders [681] Primary Visit Diagnosis:Incomplete tear of right rotator cuff, unspecified whether traumatic [M75.111] Other Visit Diagnoses:Chronic pain of right knee [M25.561, G89.29] S/P rotator cuff repair [Z98.890] Order(s):CONSULT TO PHYSICAL THERAPY [9062] Order #: [id number]: 1 FUTURE Prescriptions as of 11/25/2022 - oxyCODONE-acetaminophen (PERCOCET) 10-325 mg tablet Take 1 tablet by mouth three times daily as needed for pain for up to 30 days. Do not start before November 25, 2022. - gabapentin (NEURONTIN) 600 mg tablet Take 1 tablet by mouth three times daily for 90 days. Do not start before August 27, 2022. - tiZANidine (ZANAFLEX) 2 mg tablet Take 1 tablet by mouth three times daily. - tiZANidine HCl (ZANAFLEX) 6 mg capsule Take 1 capsule by mouth daily at bedtime. - naloxone 4 mg/actuation nasal spray (NARCAN) Use 1 spray in one nostril as needed for overdose. May repeat every 2 to 3 min in alternating nostrils until medical assistance is available - verapamil ER (VERELAN) 240 mg 24 hr capsule Take 240 mg by mouth once daily. - naproxen (NAPROSYN) 250 mg tablet Take 250 mg by mouth. - DULoxetine (CYMBALTA) 60 mg capsule duloxetine 60 mg capsule,delayed release - buPROPion XL (WELLBUTRIN XL) 300 mg 24 hr tablet TAKE 1 TABLET BY MOUTH EVERY 24 HOURS. REPLACES PREVIOUS PRESCRIPTION FOR BUPROPION 150 MG TABLET - valsartan (DIOVAN) 160 mg tablet Take 160 mg by mouth every morning. - cetirizine (ZYRTEC) 10 mg tablet Take 10 mg by mouth once daily. - AJOVY SYRINGE 225 mg/1.5 mL syringe - FLUoxetine (PROZAC) 20 mg capsule Take 60 mg by mouth once daily. - pantoprazole DR (PROTONIX) 40 mg tablet Take 40 mg by mouth twice daily. - potassium chloride ER (K-DUR, KLOR-CON) 20 mEq tablet Take 20 mEq by mouth twice daily. - NURTEC ODT 75 mg disintegrating tablet Problem List As Of Date 11/19/2022 Noted Resolved Pilonidal cyst with abscess [L05.01] 06/06/2010 Epigastric pain [R10.13] 09/27/2015 10/23/2017 Essential hypertension [I10] 10/01/2015 Depression [F32.A] 10/01/2015 RSD (reflex sympathetic dystrophy) [G90.50] 10/01/2015 Encounter for sterilization [Z30.2] 04/21/2016 Nontraumatic subcortical hemorrhage of left cer*10/19/2017 Dysphagia due to recent stroke [I69.391] 10/20/2017 Acute right hemiparesis (HCC) [G81.91] 10/20/2017 TSH deficiency [E03.8] 10/20/2017 Cerebral edema (HCC) [G93.6] 10/20/2017 10/23/2017 Migraine without aura [G43.009] 10/21/2017 Arthropathy of lumbar facet joint [M47.816] 07/10/2020 Lumbar radiculopathy [M54.16] 03/26/2020 Cerebrovascular accident (HCC) [I63.9] 11/19/2021 Chronic low back pain [M54.50, G89.29] 11/19/2021 Degeneration of intervertebral disc of lumbar r*03/26/2020 Gastroesophageal reflux disease with esophagiti*11/19/2021 Generalized osteoarthritis [M15.9] 03/26/2020 Hypercalcemia [E83.52] 11/19/2021 Intractable chronic migraine without aura [G43.*03/07/2020 Osteoarthritis of right shoulder [M19.011] 07/10/2020 Palpitations [R00.2] 11/19/2021 Strain of neck muscle [S16.1XXA] 11/19/2021 Spasm of back muscles [M62.830] 11/19/2021 Pain in right knee [M25.561] 11/19/2021 Chronic right shoulder pain [M25.511, G89.29] 11/19/2021 Stiffness of hip joint [M25.659] 12/20/2021 Abnormal kidney function [N28.9] 12/20/2021 History of subarachnoid hemorrhage [Z86.79] 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 [Z7*12/20/2021 Disorder of male genital organs [N50.9] 01/21/2022 Epididymitis [N45.1] 01/21/2022 Family history of malignant neoplasm of prostat*01/21/2022 Scrotal mass [N50.89] 01/21/2022 Left testicular pain [N50.812] 11/13/2021 Neoplasm of uncertain behavior of skin [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] 03/13/2021 Other chronic pain [G89.29] 05/20/2022 Lower abdominal pain [R10.30] 05/22/2022 Encounter Status:Closed by KISHA WALTERS on 11/19/22 Normal [facility] CNOVon 11-14-2022 CNOV Office Visit (ORMDRG ) TATE BALTAZAR ([id number]) 1975 M Date Time Provider Department 11/14/22 2:15 PM MAL GOTTI During your visit today, we recorded the following information about you: Mal Gotti MD 11/14/2022 2:48 PM Signed PAIN EVALUATION 11/14/2022 1432 Pain Level: 8 Pain Location: Shoulder-Right Description: Sharp;Shooting;Radiating radiates: into neck Frequency: Continuous Intervention/Comfort measure: Imagery Encounter Diagnosis ICD-10-CM 1. Incomplete tear of right rotator cuff, unspecified whether traumatic M75.111 Tate Baltazar returns to review MRI results. Pain is not improved since last visit. No change to exam right shoulder. IMAGING: I personally reviewed the MRI of the right shoulder in the office today, and I am in agreement with the radiologist's interpretation with the following modifications: None IMPRESSION: 1. Mild longitudinal interstitial partial tearing of the anterior insertional supraspinatus tendon. 2. Mild infraspinatus tendinosis along with slight articular surface fraying at the mid tendon. 3. Insertional subscapularis tendinosis. 4. Status post biceps tenodesis. 5. Degenerative changes at the superior labrum. PLAN: Tate Baltazar presents today with persistent pain in the right shoulder with MRI findings of full-thickness rotator cuff tearing as well as degenerative labral tearing. After thorough review of history, examination findings, and imaging, we discussed surgical intervention today which would be arthroscopic rotator cuff repair and labral debridement. I described the procedure in detail as well as the expected healing time of 3-6 months and physical therapy regimen following surgery, likely for much of this time. Informed consent was discussed in detail and signed in the office today. Significant risks of surgery including those of general anesthesia, and those from surgery including infection, nerve injury, bleeding, procedure failure and possible need for repeat procedure were all discussed at the time of consent. No guarantees as to the outcome of surgery were given or implied. Surgery will be scheduled for the next available date. Mal Gotti MD Shoulder AND Elbow Surgeon Department of Orthopaedic Surgery [facility] Referring Provider: SELF [200] Allergies As of Date: 11/14/2022 Noted Allergy Reaction HYDROCHLOROTHIAZIDE 05/18/2020 14 - Other: See Comments SULFAMETHOXAZOLE-TRIMETHOPRI M 03/26/2020 16 - Unknown ACETAMINOPHEN-CODEINE 07/24/2021 16 - Unknown ORANGE JUICE 11/19/2021 16 - Unknown PSEUDOEPHEDRINE 05/20/2021 16 - Unknown VICODIN (HYDROCODONE-ACETAMINOPHE* 1 - Mental Status Change 9 - Itching ARIPIPRAZOLE 02/22/2021 1 - Mental Status Change Date Reviewed: 11/14/2022 Reviewed by: Theresa Schafer MA - Fully Assessed Reason for Visit: Results - Mri [3561] Pain [78] Established Patient [175] Primary Visit Diagnosis:Incomplete tear of right rotator cuff, unspecified whether traumatic [M75.111] Prescriptions as of 11/14/2022 - oxyCODONE-acetaminophen (PERCOCET) 10-325 mg tablet Take 1 tablet by mouth three times daily as needed for pain for up to 30 days. Do not start before October 26, 2022. - gabapentin (NEURONTIN) 600 mg tablet Take 1 tablet by mouth three times daily for 90 days. Do not start before August 27, 2022. - tiZANidine (ZANAFLEX) 2 mg tablet Take 1 tablet by mouth three times daily. - tiZANidine HCl (ZANAFLEX) 6 mg capsule Take 1 capsule by mouth daily at bedtime. - naloxone 4 mg/actuation nasal spray (NARCAN) Use 1 spray in one nostril as needed for overdose. May repeat every 2 to 3 min in alternating nostrils until medical assistance is available - verapamil ER (VERELAN) 240 mg 24 hr capsule Take 240 mg by mouth once daily. - naproxen (NAPROSYN) 250 mg tablet Take 250 mg by mouth. - DULoxetine (CYMBALTA) 60 mg capsule duloxetine 60 mg capsule,delayed release - buPROPion XL (WELLBUTRIN XL) 300 mg 24 hr tablet TAKE 1 TABLET BY MOUTH EVERY 24 HOURS. REPLACES PREVIOUS PRESCRIPTION FOR BUPROPION 150 MG TABLET - valsartan (DIOVAN) 160 mg tablet Take 160 mg by mouth every morning. - cetirizine (ZYRTEC) 10 mg tablet Take 10 mg by mouth once daily. - AJOVY SYRINGE 225 mg/1.5 mL syringe - FLUoxetine (PROZAC) 20 mg capsule Take 60 mg by mouth once daily. - pantoprazole DR (PROTONIX) 40 mg tablet Take 40 mg by mouth twice daily. - potassium chloride ER (K-DUR, KLOR-CON) 20 mEq tablet Take 20 mEq by mouth twice daily. - NURTEC ODT 75 mg disintegrating tablet Problem List As Of Date 11/14/2022 Noted Resolved Pilonidal cyst with abscess [L05.01] 06/06/2010 Epigastric pain [R10.13] 09/27/2015 10/23/2017 Essential hypertension [I10] 10/01/2015 D (more content not included)... Normal [facility] CNOVon 10-17-2022 CNOV Office Visit (ORMDRG ) TATE BALTAZAR ([id number]) 1975 M Date Time Provider Department 10/17/22 11:15 AM MAL GOTTI ORRShannan During your visit today, we recorded the following information about you: Mal Gotti MD 10/17/2022 1:10 PM Signed PAIN EVALUATION 10/17/2022 1128 Pain Level: -- rest:7, movement:10, ROM:limited Pain Location: Shoulder-Right Description: Burning;Throbbing;Tightness Frequency: Continuous Intervention/Comfort measure: Medication;Reposition;Relaxa tion Comments: R-shoulder trigger injection: 10/01/22 Encounter Diagnosis ICD-10-CM 1. Right shoulder pain, unspecified chronicity M25.511 MRI SHOULDER WO IVCON RIGHT Tate Baltazar returns to follow up after trial of conservative management for shoulder pain. The shoulder is persistently painful and limits most activities, without improvement since the last visit to my office. He feels that physical therapy has made the shoulder worse rather than better. Examination of the shoulder today demonstrates essentially no change in the ability to lift or rotate the arm. There is painful catching throughout the examination today with giving way of the shoulder with resisted downward pressure and elevation. Review of previous radiographic imaging demonstrates no obvious abnormality of the glenohumeral joint. Today we discussed lack of progress with conservative management including medical management and physical therapy. Based on the continued limitations I recommended MRI for complete evaluation of the rotator cuff and other intra-articular structures. After this is obtained we can review the results together and determine an appropriate course of action including possible surgery. Mal Gotti MD Shoulder AND Elbow Surgeon Department of Orthopaedic Surgery [facility] Referring Provider: SELF [200] Allergies As of Date: 10/17/2022 Noted Allergy Reaction HYDROCHLOROTHIAZIDE 05/18/2020 14 - Other: See Comments SULFAMETHOXAZOLE-TRIMETHOPRI M 03/26/2020 16 - Unknown ACETAMINOPHEN-CODEINE 07/24/2021 16 - Unknown ORANGE JUICE 11/19/2021 16 - Unknown PSEUDOEPHEDRINE 05/20/2021 16 - Unknown VICODIN (HYDROCODONE-ACETAMINOPHE* 1 - Mental Status Change 9 - Itching ARIPIPRAZOLE 02/22/2021 1 - Mental Status Change Date Reviewed: 10/17/2022 Reviewed by: Theresa Schafer MA - Fully Assessed Reason for Visit: Established Patient [175] Pain [78] Follow Up [171] Primary Visit Diagnosis:Right shoulder pain, unspecified chronicity [M25.511] Order(s):MRI SHOULDER WO IVCON RIGHT [[id number]] Order #: [id number] FUTURE Prescriptions as of 10/17/2022 - oxyCODONE-acetaminophen (PERCOCET) 10-325 mg tablet Take 1 tablet by mouth three times daily as needed for pain for up to 30 days. Do not start before September 26, 2022. - gabapentin (NEURONTIN) 600 mg tablet Take 1 tablet by mouth three times daily for 90 days. Do not start before August 27, 2022. - tiZANidine (ZANAFLEX) 2 mg tablet Take 1 tablet by mouth three times daily. - tiZANidine HCl (ZANAFLEX) 6 mg capsule Take 1 capsule by mouth daily at bedtime. - naloxone 4 mg/actuation nasal spray (NARCAN) Use 1 spray in one nostril as needed for overdose. May repeat every 2 to 3 min in alternating nostrils until medical assistance is available - verapamil ER (VERELAN) 240 mg 24 hr capsule Take 240 mg by mouth once daily. - naproxen (NAPROSYN) 250 mg tablet Take 250 mg by mouth. - DULoxetine (CYMBALTA) 60 mg capsule duloxetine 60 mg capsule,delayed release - buPROPion XL (WELLBUTRIN XL) 300 mg 24 hr tablet TAKE 1 TABLET BY MOUTH EVERY 24 HOURS. REPLACES PREVIOUS PRESCRIPTION FOR BUPROPION 150 MG TABLET - valsartan (DIOVAN) 160 mg tablet Take 160 mg by mouth every morning. - cetirizine (ZYRTEC) 10 mg tablet Take 10 mg by mouth once daily. - AJOVY SYRINGE 225 mg/1.5 mL syringe - FLUoxetine (PROZAC) 20 mg capsule Take 60 mg by mouth once daily. - pantoprazole DR (PROTONIX) 40 mg tablet Take 40 mg by mouth twice daily. - potassium chloride ER (K-DUR, KLOR-CON) 20 mEq tablet Take 20 mEq by mouth twice daily. - NURTEC ODT 75 mg disintegrating tablet Problem List As Of Date 10/17/2022 Noted Resolved Pilonidal cyst with abscess [L05.01] 06/06/2010 Epigastric pain [R10.13] 09/27/2015 10/23/2017 Essential hypertension [I10] 10/01/2015 Depression [F32.A] 10/01/2015 RSD (reflex sympathetic dystrophy) [G90.50] 10/01/2015 Encounter for sterilization [Z30.2] 04/21/2016 Nontraumatic subcortical hemorrhage of left cer*10/19/2017 Dysphagia due to recent stroke [I69.391] 10/20/2017 Acute right hemiparesis (HCC) [G81.91] 10/20/2017 TSH deficiency [E03.8] 10/20/2017 Cerebral edema (HCC) [G93.6] 10/20/2017 10/23/2017 Migraine without aura [G43.009] 10/21/2017 Arthropathy of lumbar facet joint [M47.816] (more content not included)... Normal [facility] CNOVon 09-05-2022 CNOV Office Visit (ORMDRG ) TATE BALTAZAR ([id number]) 1975 M Date Time Provider Department 09/05/22 10:00 AM MAL GOTTI ORIARG During your visit today, we recorded the following information about you: Kisha Walters PA-C 09/05/2022 2:40 PM Signed ORTHOPAEDIC SHOULDER AND ELBOW SERVICE HISTORY AND PHYSICAL EXAM REFERRING PROVIDER: Melvin Larsen [address] [facility] [id number] CHIEF COMPLAINT: Right shoulder pain PAIN EVALUATION 09/05/2022 0949 Pain Level: 9 Pain Location: Shoulder-Right Description: Burning;Throbbing Frequency: Continuous Intervention/Comfort measure: Medication;Heat;Exercise SUBJECTIVE: Tate Loving Giovanny is a 47 year old male presents to clinic with right shoulder pain. Somewhat complicated history. He had a stroke more than 6 years ago. He was falling and grabbed the bed, causing a traction injury to his right arm. Since that time he had pain in the shoulder. He was seen and evaluated and underwent surgery, he thinks something was done with his bicep. States the pain never improved after surgery. He has global pain in the shoulder that wraps around his axilla and goes down his ribs. He has pain to his fingers. States he has sensitivity and pain to touch anywhere along the length of his arm secondary to his stroke. He does have pain with lifting the arm. He sees pain management and has undergone corticosteroid injections, states he's had maybe 3 in the last year and a half. He does get relief for about a month. He is scheduled for a repeat injection next week. 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 PAST SURGICAL HISTORY: PAST SURGICAL HISTORY Procedure Laterality Date APPENDECTOMY CARPAL TUNNEL Left 2014 COLONOSCOPY 20's with EGD EGD TRANSORAL BIOPSY SINGLE/MULTIPLE 10/02/15 EXCISION PILONIDAL CYST/SINUS EXTENSIVE 07/05/10 closed PAST SURGICAL HISTORY OF right knee surgery TONSILLECTOMY PRIMARY/SECONDARY Tonsillectomy VASECTOMY UNI/BI SPX W/POSTOP SEMEN EXAMS Bilateral 05/23/2016 SOCIAL HISTORY: Social History Tobacco Use Smoking status: Never Passive exposure: Never Smokeless tobacco: Never Vaping Use Vaping Use: Never used Substance Use Topics Alcohol use: Not Currently Comment: weekly Drug use: No ALLERGIES: ALLERGIES Allergen Reactions Hydrochlorothiazide Other: See Comments Sulfamethoxazole-Tr* Unknown Acetaminophen-Codei* Unknown Kihei Juice Unknown Pseudoephedrine Unknown Vicodin [Hydrocodon* Mental Status Change, Itching Aripiprazole Mental Status Change MEDICATIONS: Current Outpatient Medications on File Prior to Visit Medication Sig oxyCODONE-acetaminophen (PERCOCET) 10-325 mg tablet Take 1 tablet by mouth three times daily as needed for pain for up to 30 days. Do not start before August 27, 2022. gabapentin (NEURONTIN) 600 mg tablet Take 1 tablet by mouth three times daily for 90 days. Do not start before August 27, 2022. tiZANidine (ZANAFLEX) 2 mg tablet Take 1 tablet by mouth three times daily. tiZANidine HCl (ZANAFLEX) 6 mg capsule Take 1 capsule by mouth daily at bedtime. naloxone 4 mg/actuation nasal spray (NARCAN) Use 1 spray in one nostril as needed for overdose. May repeat every 2 to 3 min in alternating nostrils until medical assistance is available verapamil ER (VERELAN) 240 mg 24 hr capsule Take 240 mg by mouth once daily. naproxen (NAPROSYN) 250 mg tablet Take 250 mg by mouth. DULoxetine (CYMBALTA) 60 mg capsule duloxetine 60 mg capsule,delayed release buPROPion XL (WELLBUTRIN XL) 300 mg 24 hr tablet TAKE 1 TABLET BY MOUTH EVERY 24 HOURS. REPLACES PREVIOUS PRESCRIPTION FOR BUPROPION 150 MG TABLET valsartan (DIOVAN) 160 mg tablet Take 160 mg by mouth every morning. cetirizine (ZYRTEC) 10 mg tablet Take 10 mg by mouth once daily. AJOVY SYRINGE 225 mg/1.5 mL syringe FLUoxetine (PROZAC) 20 mg capsule Take 60 mg by mouth once daily. pantoprazole DR (PROTONIX) 40 mg tablet Take 40 mg by mouth twice daily. potassium chloride ER (K-DUR, KLOR-CON) 20 mEq tablet Take 20 mEq by mouth twice daily. NURTEC ODT 75 mg disintegrating tablet No current facility-administered medications on file prior to visit. PHYSICAL EXAMINATION: There were no vitals taken for this visit. EXAM: Shoulder Musculoskeletal Exam Inspection Right Right shoulder inspection is normal. Prior incision: arthroscopic portals Incision: well-healed Palpation Right Tenderness: present Anterior shoulder: mild Posterior shoulder: mild AC joint: mild Rotator cuff: mild Bicipital groove: mild Range of Motion Right Active ROM: abnormal and pain. Active forward elevation: 90. Passive forward elevation: 170. Should (more content not included)... Normal [facility] XR Shoulder - right 3 Viewso n 09-05-2022 IMPRESSION: No acute abnormality Wafer Cleaner[facility] Transcribe Date/Time: Sep 05 2022 9:39A Dictated by : ROOSEVELT LAM MD This examination was interpreted and the report reviewed and electronically signed by: ROOSEVELT LAM MD on Sep 05 2022 9:40AM [facility] * * *Final Report* * * DATE OF EXAM: Sep 05 2022 9:24AM O 5253 - XR SHLDR >/=3V AP/NICO AP/OTHR RT / PROCEDURE REASON: multiple diagnoses * * * * Physician Interpretation * * * * PROCEDURE: Right shoulder INDICATION: Chronic right shoulder pain TECHNIQUE: XR SHLDR >/=3V AP/NICO AP/OTHR RT COMPARISON: None FINDINGS: No acute fracture or dislocation. Joint spaces and acromiohumeral interval are maintained. Upper ribs are intact. [facility] Provider, Christie Montgomery [facility] - 09/05/2022 * * *Final Report* * * DATE OF EXAM: Sep 05 2022 9:24AM MDO 5253 - XR SHLDR >/=3V AP/NICO AP/OTHR RT / PROCEDURE REASON: multiple diagnoses * * * * Physician Interpretation * * * * PROCEDURE: Right shoulder INDICATION: Chronic right shoulder pain TECHNIQUE: XR SHLDR >/=3V AP/NICO AP/OTHR RT COMPARISON: None FINDINGS: No acute fracture or dislocation. Joint spaces and acromiohumeral interval are maintained. Upper ribs are intact. IMPRESSION IMPRESSION: No acute abnormality Wafer Cleaner: LALA Transcribe Date/Time: Sep 05 2022 9:39A Dictated by : ROOSEVELT LAM MD This examination was interpreted and the report reviewed and electronically signed by: ROOSEVELT LAM MD on Sep 05 2022 9:40AM EST [facility] Radiology Study observation (narrative) [facility] XR Shoulder - right 3 ViewsO rdered By: Ccf Provider on 09-05-2022 [facility] LABORATORYOrdered By: SYSTEM SYSTEM on 08-22-2022 Albumin BCP dye [Mass/Vol] 3.9 G/dL Invalid Interpretation Code 3.5 - 5.0 G/dL AO ADM SS Albumin/Globulin [Mass ratio] 1.4 {ratio} Invalid Interpretation Code 1.1 - 2.5 ratio AO ADM SS ALP [Catalytic activity/Vol] 99 U/L Invalid Interpretation Code 40 - 135 U/L AO ADM SS ALT With P-5'-P [Catalytic activity/Vol] 67 U/L Invalid Interpretation Code 16 - 63 U/L AO ADM SS AST With P-5'-P [Catalytic activity/Vol] 29 U/L Invalid Interpretation Code 10 - 40 U/L AO ADM SS Bilirubin [Mass/Vol] 0.3 mg/dL Invalid Interpretation Code 0.2 - 1.0 mg/dL AO ADM SS Calcium [Mass/Vol] 9.0 mg/dL Invalid Interpretation Code 8.4 - 10.2 mg/dL AO ADM SS Chloride [Moles/Vol] 104 mmol/L Invalid Interpretation Code 98 - 107 mmol/L AO ADM SS CO2 [Moles/Vol] 32 mmol/L Invalid Interpretation Code 22 - 29 mmol/L AO ADM SS Creatinine [Mass/Vol] 1.21 mg/dL Invalid Interpretation Code 0.70 - 1.30 mg/dL AO ADM SS Electrolyte Balance 7.0 mEq/L Invalid Interpretation Code 4.0 - 15.0 mEq/L AO ADM SS GFR 79 ml/min/1.73sqm Invalid Interpretation Code AO Chemistry S GFR Non- 65 ml/min/1.73sqm Invalid Interpretation Code AO Chemistry S Globulin 2.8 G/dL Invalid Interpretation Code AO ADM SS Glucose [Mass/Vol] 88 mg/dL Invalid Interpretation Code 70 - 105 mg/dL AO ADM SS Potassium [Moles/Vol] 3.6 mmol/L Invalid Interpretation Code 3.5 - 5.1 mmol/L AO ADM SS Protein [Mass/Vol] 6.7 G/dL Invalid Interpretation Code 6.4 - 8.2 G/dL AO ADM SS Sodium [Moles/Vol] 143 mmol/L Invalid Interpretation Code 136 - 145 mmol/L AO ADM SS Urea nitrogen [Mass/Vol] 6 mg/dL Invalid Interpretation Code 7 - 18 mg/dL AO ADM SS Urea nitrogen/Creatinine [Mass ratio] 5 ratio Invalid Interpretation Code 7 - 27 ratio AO ADM SS EMG(NEURO/NI)on 06-16-2022 [facility] XR Knee - right 4 Viewson IMPRESSION: Negative. Wafer Cleaner: LALA Transcribe Date/Time: May 26 2022 9:23A Dictated by : ROOSEVELT LAM MD This examination was interpreted and the report reviewed and electronically signed by: ROOSEVELT LAM MD on May 26 2022 9:23AM [facility] * * *Final Report* * * DATE OF EXAM: May 23 2022 9:02AM KARLA 5203 - XR KNEE 4V AP/PA BOTH+LAT/JOSEMANUEL RT / PROCEDURE REASON: G89.4-Chronic pain syndrome * * * * Physician Interpretation * * * * PROCEDURE: Right knee INDICATION: Chronic pain syndrome .right knee pain TECHNIQUE: XR KNEE 4V AP/PA BOTH+LAT/JOSEMANUEL RT COMPARISON: None FINDINGS: No fractures or dislocations are seen. No significant joint effusion or joint body is evident. The joint spaces are maintained without evidence for significant degenerative or arthritic change. [facility] Provider, Christie Fritz - 05/26/2022 * * *Final Report* * * DATE OF EXAM: May 23 2022 9:02AM O 5203 - XR KNEE 4V AP/PA BOTH+LAT/JOSEMANUEL RT / PROCEDURE REASON: G89.4-Chronic pain syndrome * * * * Physician Interpretation * * * * PROCEDURE: Right knee INDICATION: Chronic pain syndrome .right knee pain TECHNIQUE: XR KNEE 4V AP/PA BOTH+LAT/JOSEMANUEL RT COMPARISON: None FINDINGS: No fractures or dislocations are seen. No significant joint effusion or joint body is evident. The joint spaces are maintained without evidence for significant degenerative or arthritic change. IMPRESSION IMPRESSION: Negative. Wafer Cleaner: LALA Transcribe Date/Time: May 26 2022 9:23A Dictated by : ROOSEVELT LAM MD This examination was interpreted and the report reviewed and electronically signed by: ROOSEVELT LAM MD on May 26 2022 9:23AM EST [facility] XR Knee - right 4 ViewsOrder ed By: Ccf Provider on 05-26-2022 [facility] XR Knee - right 4 Viewson Radiology Study observation (narrative) [facility] LABORATORYOrdered By: Wanda Crawford on 01-30-2022 Prostate specific Ag [Mass/Vol] 0.85 ng/mL Invalid Interpretation Code 0.00 - 4.00 ng/mL AO ADM SS LABORATORYOrdered By: Jc Young on 11-25-2021 Appearance (U) Clear (11/25/21 1:05 PM) Invalid Interpretation Code Clear AH Auto Urine SS Bacteria LM.HPF (Urine sed) [#/Area] Trace /HPF Invalid Interpretation Code AO Auto Urine SS Bilirubin Ql (U) Negative (11/25/21 1:05 PM) Invalid Interpretation Code Neg-Trace AH Auto Urine SS Color (U) Yellow (11/25/21 1:05 PM) Invalid Interpretation Code AH Auto Urine SS Glucose Test strip (U) [Mass/Vol] Negative Invalid Interpretation Code Negativemg/ dL AH Auto Urine SS Hemoglobin Auto test strip (U) [Mass/Vol] Negative (11/25/21 1:05 PM) Invalid Interpretation Code Neg-Trace AH Auto Urine SS Ketones Ql (U) Negative (11/25/21 1:05 PM) Invalid Interpretation Code Neg-Trace AH Auto Urine SS UA Leuk Est Negative (11/25/21 1:05 PM) Invalid Interpretation Code Negative AH Auto Urine SS UA Nitrite Negative (11/25/21 1:05 PM) Invalid Interpretation Code Negative AH Auto Urine SS UA pH 7.5 (11/25/21 1:05 PM) Invalid Interpretation Code 5.0 - 8.0 AH Auto Urine SS UA Protein Negative Invalid Interpretation Code Negativemg/ dL AH Auto Urine SS UA RBC None Seen /HPF Invalid Interpretation Code None Seen/HPF AO Auto Urine SS UA Spec Grav 1.010 (11/25/21 1:05 PM) Invalid Interpretation Code 1.006-1.029 AH Auto Urine SS UA Specimen Type Clean Catch (11/25/21 1:05 PM) Invalid Interpretation Code AO Auto Urine SS UA Squam Epithelial None Seen /HPF Invalid Interpretation Code None Seen/HPF AO Auto Urine SS UA Urobilinogen 0.2 E.U./dL Invalid Interpretation Code 0.2-1.0E.U. /dL AH Auto Urine SS WBC LM.HPF (Urine sed) [#/Area] None Seen /HPF Invalid Interpretation Code None Seen/HPF AO Auto Urine SS FLUOROSCOPY IN OR/PAIN MGTon 09-19-2021 FLUOROSCOPY IN OR/PAIN MGT FLUOROSCOPY IN OR/PAIN MGT Ordering Physician: Rowan Boateng, FLUOROSCOPY AND RADIOGRAPHS UTILIZED IN PAIN MANAGEMENT Clinical Statement: Osteoarthritis FINDINGS: 5.3 seconds fluoroscopy time utilized. A total of 2 radiographs were obtained demonstrating needle placement and contrast injection at the glenohumeral joint. IMPRESSION: Documentation of fluoroscopy and radiographs utilized in pain management. Please see clinician's report for complete details. This report was electronically signed by Jakob Gaytan MD 09/19/2021 11:31 AM Reported By: JAKOB GAYTAN M.D. Signed By: JAKOB GAYTAN M.D. [facility] FLUOROSCOPY IN OR/PAIN MGTon 09-04-2021 FLUOROSCOPY IN OR/PAIN MGT FLUOROSCOPY IN OR/PAIN MGT Ordering Physician: Rowan Boateng, FLUOROSCOPY AND RADIOGRAPHS UTILIZED IN PAIN MANAGEMENT Clinical Statement: Osteoarthritis FINDINGS: 2.9 second fluoroscopy time utilized. A total of 2 radiographs were obtained demonstrating needle placement and contrast injection of the femorotibial joint. IMPRESSION: Documentation of fluoroscopy and radiographs utilized in pain management. Please see clinician's report for complete details. This report was electronically signed by Jakob Gaytan MD 09/04/2021 11:55 AM Reported By: JAKOB GAYTAN M.D. Signed By: JAKOB GAYTAN M.D. Normal [facility] FLUOROSCOPY IN OR/PAIN MGTon 08-21-2021 FLUOROSCOPY IN OR/PAIN MGT FLUOROSCOPY IN OR/PAIN MGT Ordering Physician: Rowan Boateng DO 08/21/2021 9:30 AM LUMBAR SPINE FLUOROSCOPY Clinical Statement: Pain FINDINGS: 12 seconds fluoroscopy time was utilized by Dr. Boateng. 2 C-arm images of the lumbar spine were obtained. IMPRESSION: 12 seconds fluoroscopy time utilized by Dr. Boateng. This report was electronically signed by Ktahia Razo MD 08/21/2021 11:03 AM Reported By: KATHIA RAZO M.D. Signed By: KATHIA RAZO M.D. [facility] LABORATORYOrdered By: Sue Prater on 05-23-2021 ADMITTED TO INTENSIVE CARE UNIT FOR CONDITION OF INTEREST:FIND:PT:^P ATIENT:ORD: No (05/23/21 3:54 PM) Invalid Interpretation Code AO Auto Urine SS EMPLOYED IN A HEALTHCARE SETTING:FIND:PT:^PA TIENT:ORD: No (05/23/21 3:54 PM) Invalid Interpretation Code AO Auto Urine SS FIRST TEST FOR CONDITION OF INTEREST:FIND:PT:^P ATIENT:ORD: Unknown (05/23/21 3:54 PM) Invalid Interpretation Code AO Auto Urine SS HAS SYMPTOMS RELATED TO CONDITION OF INTEREST:FIND:PT:^P ATIENT:ORD: Yes (05/23/21 3:54 PM) Invalid Interpretation Code AO Auto Urine SS Illness or injury onset date and time [id number] Invalid Interpretation Code AO Auto Urine SS Patient was hospitalized because of this condition No (05/23/21 3:54 PM) Invalid Interpretation Code AO Auto Urine SS status Not (05/23/21 3:54 PM) Invalid Interpretation Code AO Auto Urine SS RESIDES IN A CONGREGATE CARE SETTING:FIND:PT:^PA TIENT:ORD: No (05/23/21 3:54 PM) Invalid Interpretation Code AO Auto Urine SS SARS-CoV-2 (COVID-19) RNA JUDITH+probe Ql (Resp) Positive *ABN* (05/23/21 3:54 PM) Invalid Interpretation Code Negative AO Auto Urine SS SARS-CoV-2 (COVID-19) RNA JUDITH+probe Ql (Unsp spec) Positive results are indicative of the presence of SARS-CoV-2 RNA; clinical correlation with patient history and other diagnostic information is necessary to determine patient infection status. Positive results do not rule out bacterial infection or co-infection with other viruses. The agent detected may not be the definite cause of disease. Laboratories within the [place] and its territories are required to report all positive results to the appropriate public health authorities.Detection of analyte target(s) does not imply that the corresponding virus(es) are infectious or are the causative agents for clinical symptoms.There is a risk of false positive values resulting from cross-contamination by target organisms, their nucleic acids or amplified product, or from non-specific signals in the assay.[employer] SARS-CoV-2 Assay is a Real-Time reverse-transcriptase polymerase chain reaction (RT-PCR) based qualitative in vitro diagnostic test intended for the qualitative detection of nucleic acid from the SARS-CoV-2 in nasopharyngeal swab specimens collected from individuals suspected of COVID-19 by their healthcare provider. Testing is limited to laboratories certified under the Clinical Laboratory Improvement Amendments of 1988 (CLIA), 42 U.S.C. 263a, to perform moderate and high complexity tests. Invalid Interpretation Code AO Auto Urine SS FLUOROSCOPY IN OR/PAIN MGTon 05-08-2021 FLUOROSCOPY IN OR/PAIN MGT FLUOROSCOPY IN OR/PAIN MGT Ordering Physician: Rowan Boateng DO 05/08/2021 7:38 AM RIGHT SHOULDER FLUOROSCOPY Clinical Statement: Right shoulder pain FINDINGS: 4 seconds fluoroscopy time was utilized by Dr. Boateng. 2 C-arm images of the right shoulder were obtained. IMPRESSION: 4 seconds fluoroscopy time utilized by Dr. Boateng. This report was electronically signed by Kathia Razo MD 05/08/2021 11:24 AM Reported By: KATHIA RAZO M.D. Signed By: KATHIA RAZO M.D. [facility] FLUOROSCOPY IN OR/PAIN MGTon 04-24-2021 FLUOROSCOPY IN OR/PAIN MGT FLUOROSCOPY FOR NEEDLE GUIDANCE: Clinical Statement: Right knee pain FINDINGS: 5.4 seconds of fluoroscopy time was utilized by Dr. Boateng. 1 fluoroscopic spot image was acquired of the right knee. Additional information can be found in Dr. Boateng' report. IMPRESSION: Fluoroscopy provided to Dr. Boateng. This report was electronically signed by Maico Hernandez MD 04/24/2021 3:46 PM Reported By: MAICO HERNANDEZ M.D. Signed By: MAICO HERNANDEZ M.D. [facility] Established Visit (Gastroent erology)on 08-22-2020 Established Visit (Gastroenterology) Diagnoses/Problems Assessed Gastroesophageal reflux disease with esophagitis without hemorrhage (530.81,530.10) (K21.00) Irritable bowel syndrome with constipation (564.1) (K58.1) Hiatal hernia (553.3) (K44.9) Patient Discussion/Summary 1. A telephone encounter was completed. 2. Results of recent EGD and colonoscopy were discussed with patient. 3. Continue Pantoprazole 40 mg once daily before breakfast for chronic GERD/heartburn. 4. Lifestyle changes to help alleviate heartburn/reflux were discussed. These include avoiding spicy and greasy foods, tomato based products, mint and caffeine. Alcohol and smoking should be avoided. Patient should keep at least 3 hours between eating and going to sleep. Being of a normal weight helps decrease heartburn symptoms. 5. Continue Metamucil 1 tablespoon daily. 6. Continue Dicyclomine 20 mg every 6 hours as needed for abdominal cramping/spasms. 7. Begin using MiraLAX one capful in 8 ounces of water, juice, or Gatorade daily. This products is [id number]. You can adjust this product if you are having severe constipation by increasing it to twice a day. If you are experiencing loose stool, decrease amount to one half capful daily or one capful every other day. 8. Begin using a probiotic such as [employer] 1 capsule daily. This is over the counter. 9. Your next screening colonoscopy is due in July 2030. 10. Follow-up office visit in 1 year or sooner if needed. Provider Impressions 1. Chronic GERD with esophagitis 2. Hiatal hernia 3. Irritable bowel syndrome with chronic constipation 4. Nonalcoholic fatty liver disease with gallbladder sludge Chief Complaint A telephone visit (audio only) between the patient (at the originating site) and the provider (at the distant site) was utilized to provide this telehealth service. Verbal consent was requested and obtained from TATE BALTAZAR on this date, 08/22/2020 09:00 AM , for a telehealth visit. A telephone visit was completed for this encounter. CHIEF COMPLAINT: Follow-up EGD and colonoscopy. History of Present [id number] - Year old male presents today via telephone encounter for follow-up of EGD and colonoscopy completed on 07/25/[address] Mcdonald for evaluation of atypical chest pain with upper abdominal pain, lower abdominal pain involving the suprapubic area and periumbilical region, and chronic constipation. EGD demonstrated reflux esophagitis LA -B, 4 cm hiatal hernia, and normal stomach and normal examined duodenum. Biopsies of the stomach showed mild chronic gastritis with negative H.pylori. Biopsies of the distal esophagus showed squamous esophageal mucosa with ulceration, acute and chronic inflammation, fragments of fibrinopurulent debris, and marked reflux associated changes; there was no evidence of Sanchez's esophagus or malignancy. Patient reports today that his chest pain has improved with use of Pantoprazole 40 mg daily in the morning. He continues to experience some heartburn, but does admit to eating frequent spicy foods. He denies dysphagia, nausea, vomiting, changes in appetite, unexplained weight loss or fevers. He reports infrequent lower and periumbilical abdominal cramping of mild severity that is relieved with use of Dicyclomine 20 mg once every 1 to 2 days. He is still having constipation with a bowel movement every 2 to 3 days; this is exacerbated by use of tizanidine and Percocet as needed for chronic pain. He is taking Metamucil daily. There is no diarrhea, rectal bleeding, blood in the stool or melena. Colonoscopy on showed a normal colon and normal examined ileum. Recall colonoscopy is due in 10 years (July 2030). Review of Systems ROS: Const: Denies fatigue, fever and weight loss. CV: Denies chest pain or palpitations. Resp: Denies cough or dyspnea. GI: Denies symptoms other than stated above. Has occasional dysphagia for solids and liquids. Other: Patient had a stroke 20 years ago and again about 3 years ago. Active Problems Problems Chest pain, atypical (786.59) (R07.89) Gastroesophageal reflux disease with esophagitis without hemorrhage (530.81,530.10) (K21.00) Hiatal hernia (553.3) (K44.9) Irritable bowel syndrome with constipation (564.1) (K58.1) Lower abdominal pain (789.09) (R10.30) Screening for colon cancer (V76.51) (Z12.11) Past Medical History Problems History of Chronic pain syndrome (338.4) (G89.4) History of cerebrovascular accident (V12.54) (Z86.73) History of degenerative disc disease (V13.59) (Z87.39) History of depression (V11.8) (Z86.59) History of gastroesophageal reflux (GERD) (V12.79) (Z87.19) History of hypertension (V12.59) (Z86.79) History of Migraine (346.90) (G43.909) History of Obstructive sleep apnea, adult (327.23) (G47.33) Surgical History Problems History of Appendectomy History of Biceps tenotomy History of Cardiac catheterization 05/16/2020 History of Colonoscopy 2020 - normal History of Esophagogastroduodenoscopy 2020 - gastritis History of Knee arthroscopy History of Tonsillectomy History of Vasectomy Family History Mother Family history of Alive and well Father Family history of Other Denied: Family history of malignant neoplasm of colon Social History Problems Caffeine use (V49.89) (Z78.9) Does not have living will Former cigarette smoker (V15.82) (Z87.891) No illicit drug use Quit consuming alcohol in remote past (V49.89) (Z78.9) USE TO DRINK 12 OR MORE DRINKS A DAY, BEER AND WHISKY (QUIT IN 2015) Allergies Medication Vicodin ES TABS Recorded By: Erma Grande; 06/29/2020 7:59:35 AM Current Meds Medication NameInstruction amLODIPine Besylate 10 MG Oral TabletTAKE 1 TABLET DAILY. Aspirin 81 81 MG Oral Tablet Delayed ReleaseTAKE 1 TABLET DAILY. Dicyclomine HCl - 20 MG Oral TabletTake one capsule every six hours as needed for abdominal cramping FLUoxetine HCl - 20 MG Oral CapsuleTAKE 3 CAPSULES DAILY Gabapentin 100 MG Oral CapsuleTAKE 1 CAPSULE TWICE DAILY. Gabapentin 300 MG Oral Capsule1 po hs hydroCHLOROthiazide 25 MG Oral TabletTAKE 1 TABLET DAILY. Meloxicam 15 MG Oral TabletTAKE 1 TABLET DAILY. Metamucil 48.57 % Oral Powderdaily Pantoprazole Sodium 40 MG Oral Tablet Delayed ReleaseTake 1 tablet every morning on an empty stomach for reflux. Percocet 5-325 MG Oral TabletTAKE 1 TABLET EVERY 4 HOURS NEEDED FOR PAIN. Potassium Chloride 20 MEQ TBCRTAKE 2 TABLETS DAILY. Pravastatin Sodium 20 MG Oral TabletTAKE 1 TABLET DAILY. tiZANidine HCl - 4 MG Oral CapsuleTAKE 2 CAPSULES EVERY 6 TO 8 HOURS. Verapamil HCl ER 120 MG Oral Capsule Extended Release 24 HourTAKE 1 CAPSULE DAILY BEFORE EATING. Vitals Vital Signs Recorded: 22Aug2020 08:39AM Height6 ft 3 in Zcjijm785 lb BMI Glnepmybpk89.75 BSA Calculated2.33 Physical Exam PHYSICAL EXAM LIMITED DUE TO TELEPHONE ENCOUNTER. Constitutional: Patient alert and oriented x3. Pleasant and cooperative. No conversational dyspnea. In no apparent distress. Results/Data 1. EGD 07/25/2020 (Dr. Mcdonald) demonstrated reflux esophagitis LA -B, 4 cm hiatal hernia, and normal stomach and normal examined duodenum. Biopsies of the stomach showed mild chronic gastritis with negative H.pylori. Biopsies of the distal esophagus showed squamous esophageal mucosa with ulceration, acute and chronic inflammation, fragments of fibrinopurulent debris, and marked reflux associated changes; there was no evidence of Sanchez's esophagus or malignancy. 2. Colonoscopy on (Dr. Mcdonald) showed a normal colon and normal examined ileum. Recall colonoscopy is due in 10 years (July 2030). Time Time Stamp_: Prep time on date of the patient encounter: 5 minutes. Time spent directly with patient/family/caregiver: 10 minutes. Additional time spent on patient care activities: 0 minutes. Documentation time: 5 minutes. Other time spent: 0 minutes. Total time on date of patient encounter: 20 minutes. Signatures Electronically signed by : Rissa Cardoza APRN-COIL BUILDER; Aug 22 2020 9:54AM EST (Author) Normal [facility] Initial Visit (Gastroenterol ogy)on 06-29-2020 Initial Visit (Gastroenterology) Diagnoses/Problems Assessed Chest pain, atypical (786.59) (R07.89) Lower abdominal pain (789.09) (R10.30) Orders Chest pain, atypical Endoscopy - Upper GI; Status:Active - Retrospective Authorization; Requested for:25Jul2020 09:00AM; Perform:[facility]; Order Comments:Autumn Garrett; Due:23Oct2020; Last Updated By:Erma Grande; 06/29/2020 8:54:33 AM;Ordered; For:Chest pain, atypical; Ordered By:Sebastian Mcdonald; Patient competent to provide consent? : Yes-pt mentally competent to provide consent Chest pain, atypical, Lower abdominal pain Colonoscopy; Status:Active - Retrospective Authorization; Requested for:25Jul2020 09:00AM; Perform:[facility]; Order Comments:AUTUMN GARRETT; Due:23Oct2020; Last Updated By:Erma Grande; 06/29/2020 8:54:33 AM;Ordered; For:Chest pain, atypical, Lower abdominal pain; Ordered By:Sebastian Mcdonald; Patient competent to provide consent? : Yes-pt mentally competent to provide consent Patient Discussion/Summary Impression: 1. Atypical chest pain with upper abdominal pain 2. Lower abdominal pain involving the suprapubic area and periumbilical region 3. Chronic constipation 4. Nonalcoholic fatty liver disease with gallbladder sludge Recommendation: 1. The diagnosis and evaluation options were discussed today. A colonoscopy and upper endoscopy were recommended and scheduled. The procedures and sedation were discussed. Risks including but not limited to bleeding, perforation, reaction to medication, missed polyps, damage to other organs, and adverse cardiopulmonary events were discussed. Precautions and risks associated with Covid-19 infection were discussed.The importance of following the colonoscopy prep closely was discussed including not eating or drinking anything 4 hours prior to the test time. The requirement to have a commercial relief driver present was discussed. All questions were answered. Patient appears medically stable for endoscopy. 2. [facility]umn website, cardiology notes, diagnostic imaging studies reviewed for visit today Chief Complaint An interactive audio and video telecommunication system which permits real time communications between the patient (at the originating site) and provider (at the distant site) was utilized to provide this telehealth service. Verbal consent was requested and obtained from TATE BALTAZAR on this date, 06/29/2020 08:20 AM , for a telehealth visit. Abdominal pain and chest pain History of Present [id number] male has a several month history of abdominal pain radiating into his mid chest. This been increasing in severity and frequency. He says his pain is located in the midline of the abdomen from his lower suprapubic area all the way up into his chest. It seems to be constant but varies in intensity from 3-10/10 in severity. Eating does make the pain worse. Bowel movements have been irregular anywhere from 0-5 times a day. He takes a lot of fiber pills. About twice a week he will have no bowel movements and then he will have frequent bowel movements the next day. His abdominal pain questionably improves a little bit after a bowel movement. He denies any blood in the stool. There is no family history of peptic ulcer disease or colon cancer. Patient has tried being on Prevacid without any help. Because of his chest pain he had a cardiac cath on 05/16/2020 that was normal. CBC and BMP at that time were normal. Ultrasound of liver on 06/27/2020 showed a fatty liver with sludge in the gallbladder. He denies current alcohol history. He is on daily low-dose aspirin and meloxicam. Review of Systems ROS: Const: Denies fatigue, fever and weight loss. CV: Denies chest pain or palpitations. Resp: Denies cough or dyspnea. GI: Denies symptoms other than stated above. Has occasional dysphagia for solids and liquids. Other: Patient had a stroke 20 years ago and again about 3 years ago. Active Problems Problems Chest pain, atypical (786.59) (R07.89) Lower abdominal pain (789.09) (R10.30) Past Medical History Problems History of Chronic pain syndrome (338.4) (G89.4) History of cerebrovascular accident (V12.54) (Z86.73) History of degenerative disc disease (V13.59) (Z87.39) History of depression (V11.8) (Z86.59) History of gastroesophageal reflux (GERD) (V12.79) (Z87.19) History of hypertension (V12.59) (Z86.79) History of Migraine (346.90) (G43.909) History of Obstructive sleep apnea, adult (327.23) (G47.33) Surgical History Problems History of Appendectomy History of Biceps tenotomy History of Cardiac catheterization 05/16/2020 History of Colonoscopy History of Esophagogastroduodenoscopy History of Knee arthroscopy History of Tonsillectomy History of Vasectomy Family History Mother Family history of Alive and well Father Family history of Other Denied: Family history of malignant neoplasm of colon Social History Problems Caffeine use (V49.89) (Z78.9) Does not have living will Former cigarette smoker (V15.82) (Z87.891) No illicit drug use Quit consuming alcohol in remote past (V49.89) (Z78.9) USE TO DRINK 12 OR MORE DRINKS A DAY, BEER AND WHISKY (QUIT IN 2016) Allergies Medication Vicodin ES TABS Recorded By: Erma Grande; 06/29/2020 7:59:35 AM Current Meds Medication NameInstruction amLODIPine Besylate 10 MG Oral TabletTAKE 1 TABLET DAILY. Aspirin 81 81 MG Oral Tablet Delayed ReleaseTAKE 1 TABLET DAILY. FLUoxetine HCl - 20 MG Oral CapsuleTAKE 3 CAPSULES DAILY hydroCHLOROthiazide 25 MG Oral TabletTAKE 1 TABLET DAILY. Meloxicam 15 MG Oral TabletTAKE 1 TABLET DAILY. Percocet 5-325 MG Oral TabletTAKE 1 TABLET EVERY 4 HOURS NEEDED FOR PAIN. Potassium Chloride 20 MEQ TBCRTAKE 2 TABLETS DAILY. Pravastatin Sodium 20 MG Oral TabletTAKE 1 TABLET DAILY. tiZANidine HCl - 4 MG Oral CapsuleTAKE 2 CAPSULES EVERY 6 TO 8 HOURS. Verapamil HCl ER 120 MG Oral Capsule Extended Release 24 HourTAKE 1 CAPSULE DAILY BEFORE EATING. Vitals Vital Signs Recorded: [id number] 07:59AM Height6 ft 3 in Avsubn813 lb BMI Mmvryioqlz85.75 BSA Calculated2.33 Physical Exam Patient does not appear in any acute distress. Weight was reviewed. Patient is alert and oriented with normal speech and thought process. Affect is normal. There is no conversational dyspnea, cough, or obvious shortness of breath. Dentition seems poor with missing teeth. Signatures Electronically signed by : Sebastian Mcdonald DO; Jun 29 2020 10:51AM EST (Author) Normal rag & bone Serum Protein Electrophoresi son 09-10-2018 Released By: see below Normal [facility] Comment on above: Result Comment: Benjamín Sim M.D. Performed By: #### H EMDF, ESR, TSH5, LFT3, CRTN3, URIC3, BUN3, GLUC3 #### [facility] [address] [place] [address] #### HEPC, KYRA, TPO2 #### [facility] [address] [place] [address] #### VD25H, RFB #### [facility] [address] [place] [address] #### TRYPO #### The performing lab is in the report. #### SPRTE #### [address] [address] Reviewed By: Annette Trammell,PhD Normal [facility] Comment on above: Performed By: #### H EMDF, ESR, TSH5, LFT3, CRTN3, URIC3, BUN3, GLUC3 #### [facility] [address] [place] [address] #### HEPC, KYRA, TPO2 #### [address] #### VD25H, RFB #### [address] [address] #### TRYPO #### The performing lab is in the report. #### SPRTE #### [address] [address] SPE Interpretation Normal Pattern Normal [facility] Comment on above: Performed By: #### H EMDF, ESR, TSH5, LFT3, CRTN3, URIC3, BUN3, GLUC3 #### [address] [address] #### HEPC, KYRA, TPO2 #### [address] #### VD25H, RFB #### [address] [address] #### TRYPO #### The performing lab is in the report. #### SPRTE #### [address] [address] Albumin mass conc 5.1 g/dL Normal 3.1-5.2 [facility] Comment on above: Performed By: #### H EMDF, ESR, TSH5, LFT3, CRTN3, URIC3, BUN3, GLUC3 #### [address] [address] #### HEPC, KYRA, TPO2 #### [address] #### VD25H, RFB #### [address] [address] #### TRYPO #### The performing lab is in the report. #### SPRTE #### [address] [address] Alpha-1 0.3 g/dL Normal 0.2-0.4 [facility] Comment on above: Performed By: #### H EMDF, ESR, TSH5, LFT3, CRTN3, URIC3, BUN3, GLUC3 #### [address] [address] #### HEPC, KYRA, TPO2 #### [address] [address] #### VD25H, RFB #### [address] [address] #### TRYPO #### The performing lab is in the report. #### SPRTE #### [address] [address] Alpha-2 0.6 g/dL Normal 0.5-1.0 [facility] Comment on above: Performed By: #### H EMDF, ESR, TSH5, LFT3, CRTN3, URIC3, BUN3, GLUC3 #### [address] [address] #### HEPC, KYRA, TPO2 #### [address] [address] #### VD25H, RFB #### [address] [address] #### TRYPO #### The performing lab is in the report. #### SPRTE #### [address] [address] Beta 0.8 g/dL Normal 0.6-1.0 [facility] Comment on above: Performed By: #### H EMDF, ESR, TSH5, LFT3, CRTN3, URIC3, BUN3, GLUC3 #### [address] [address] #### HEPC, KYRA, TPO2 #### [address] #### VD25H, RFB #### [facility] [address] [place] [address] #### TRYPO #### The performing lab is in the report. #### SPRTE #### [address] [address] Gamma 0.9 g/dL Normal 0.4-1.4 [facility] Comment on above: Performed By: #### H EMDF, ESR, TSH5, LFT3, CRTN3, URIC3, BUN3, GLUC3 #### [address] [address] #### HEPC, KYRA, TPO2 #### [address] #### VD25H, RFB #### [address] [place] [address] #### TRYPO #### The performing lab is in the report. #### SPRTE #### [address] [address] Tryptaseon 09-10-2018 Tryptase 3.2 ug/L Normal <=10.9 [facility] Comment on above: Result Comment: Perf ormed by [employer], [address] [place] [id number] [email or web address], Tu Costa MD - Lab. Director Performed By: #### H EMDF, ESR, TSH5, LFT3, CRTN3, URIC3, BUN3, GLUC3 #### [address] [address] #### HEPC, KYRA, TPO2 #### [address] #### VD25H, RFB #### [address] [place] [address] #### TRYPO #### The performing lab is in the report. #### SPRTE #### [address] [address] Anti-Nuclear Antibodyon 08-17 KYRA Titer < 1 : 40 Normal <1:40 [facility] Comment on above: Performed By: #### H EMDF, ESR, TSH5, LFT3, CRTN3, URIC3, BUN3, GLUC3 #### [address] [address] #### HEPC, KYRA, TPO2 #### [address] #### VD25H, RFB #### [address] [place] [address] #### TRYPO #### The performing lab is in the report. #### SPRTE #### [address] [address] TPO Abon 09-09-2018 TPO Ab 0.7 [IU]/mL Normal 0.0-5.5 [facility] Comment on above: Performed By: #### H EMDF, ESR, TSH5, LFT3, CRTN3, URIC3, BUN3, GLUC3 #### [address] [address] #### HEPC, KYRA, TPO2 #### [address] #### VD25H, RFB #### [facility] [address] [place] [address] #### TRYPO #### The performing lab is in the report. #### SPRTE #### [address] [address] Serum Protein Electrophoresi son 09-08-2018 Protein mass conc 7.6 g/dL Normal 6.3-8.2 [facility] Comment on above: Performed By: #### H EMDF, ESR, TSH5, LFT3, CRTN3, URIC3, BUN3, GLUC3 #### [address] [address] #### HEPC, KYRA, TPO2 #### [address] #### VD25H, RFB #### [address] [place] [address] #### TRYPO #### The performing lab is in the report. #### SPRTE #### [address] [address] Creatinineon 09-07-2018 Creatinine mass conc 0.86 mg/dL Normal 0.52-1.25 [facility] Comment on above: Performed By: #### H EMDF, ESR, TSH5, LFT3, CRTN3, URIC3, BUN3, GLUC3 #### [address] [address] #### HEPC, KYRA, TPO2 #### [address] #### VD25H, RFB #### [address] [address] #### TRYPO #### The performing lab is in the report. #### SPRTE #### [address] [address] Creatinine mass conc mg/dL Normal >60 [facility] Comment on above: Result Comment: Sour ce- MDRD equation with creatinine calibration to IDMS(NKDEP) eGFR not recommended for drug dose adjustment Performed By: #### H EMDF, ESR, TSH5, LFT3, CRTN3, URIC3, BUN3, GLUC3 #### [address] [address] #### HEPC, KYRA, TPO2 #### [address] #### VD25H, RFB #### [address] [place] [address] #### TRYPO #### The performing lab is in the report. #### SPRTE #### [address] [address] GFR/1.73 sq M predicted among blacks MDRD vol rate/area (S/P/Bld) mL/min/{1.73_m2} Normal >60 [facility] Comment on above: Performed By: #### H EMDF, ESR, TSH5, LFT3, CRTN3, URIC3, BUN3, GLUC3 #### [facility] [address] [place] [address] #### HEPC, KYRA, TPO2 #### [address] [address] #### VD25H, RFB #### [facility] [address] [place] [address] #### TRYPO #### The performing lab is in the report. #### SPRTE #### [address] [address] Glucoseon 09-07-2018 Glucose mass conc 92 mg/dL Normal 70-100 [facility] Comment on above: Performed By: #### H EMDF, ESR, TSH5, LFT3, CRTN3, URIC3, BUN3, GLUC3 #### [address] [address] #### HEPC, KYRA, TPO2 #### [address] [address] #### VD25H, RFB #### [facility] [address] [place] [address] #### TRYPO #### The performing lab is in the report. #### SPRTE #### [address] [address] Hemogram w/ Autodiffon 09-07 Abs Baso Cnt 0.1 10*3/uL Normal 0.0-0.2 [facility] Comment on above: Performed By: #### H EMDF, ESR, TSH5, LFT3, CRTN3, URIC3, BUN3, GLUC3 #### [facility] [address] [place] [address] #### HEPC, KYRA, TPO2 #### [address] [address] #### VD25H, RFB #### [address] [address] #### TRYPO #### The performing lab is in the report. #### SPRTE #### [address] [address] Abs Neutrophile Cnt 3.2 10*3/uL Normal 1.8-7.0 [facility] Comment on above: Performed By: #### H EMDF, ESR, TSH5, LFT3, CRTN3, URIC3, BUN3, GLUC3 #### [address] [address] #### HEPC, KYRA, TPO2 #### [address] #### VD25H, RFB #### [address] [address] #### TRYPO #### The performing lab is in the report. #### SPRTE #### [address] [address] Basophils/100 WBC (Bld) 1.2 % Normal 0.0-2.0 [facility] Comment on above: Performed By: #### H EMDF, ESR, TSH5, LFT3, CRTN3, URIC3, BUN3, GLUC3 #### [address] [address] #### HEPC, KYRA, TPO2 #### [address] [address] #### VD25H, RFB #### [address] [address] #### TRYPO #### The performing lab is in the report. #### SPRTE #### [address] [address] Eosinophils #/vol (Bld) 0.4 10*3/uL Normal 0.0-0.5 [facility] Comment on above: Performed By: #### H EMDF, ESR, TSH5, LFT3, CRTN3, URIC3, BUN3, GLUC3 #### [address] [address] #### HEPC, KYRA, TPO2 #### [address] #### VD25H, RFB #### [address] [address] #### TRYPO #### The performing lab is in the report. #### SPRTE #### [address] [address] Eosinophils/100 WBC (Bld) 5.8 % Normal 1.0-6.0 [facility] Comment on above: Performed By: #### H EMDF, ESR, TSH5, LFT3, CRTN3, URIC3, BUN3, GLUC3 #### [address] [address] #### HEPC, KYRA, TPO2 #### [address] #### VD25H, RFB #### [address] [address] #### TRYPO #### The performing lab is in the report. #### SPRTE #### [address] [address] Erythrocyte distribution width Ratio (RBC) 13.8 % Normal 11.5-14.5 [facility] Comment on above: Performed By: #### H EMDF, ESR, TSH5, LFT3, CRTN3, URIC3, BUN3, GLUC3 #### [address] [address] #### HEPC, KYRA, TPO2 #### [address] #### VD25H, RFB #### [address] [place] [address] #### TRYPO #### The performing lab is in the report. #### SPRTE #### [address] [address] Granulocytes/100 WBC (Bld) 51.7 % Normal 40.0-80.0 [facility] Comment on above: Performed By: #### H EMDF, ESR, TSH5, LFT3, CRTN3, URIC3, BUN3, GLUC3 #### [address] [address] #### HEPC, KYRA, TPO2 #### [address] [address] #### VD25H, RFB #### [address] [address] #### TRYPO #### The performing lab is in the report. #### SPRTE #### [address] [address] Hematocrit Volume Fraction (Bld) 45.6 % Normal 40.0-52.0 [facility] Comment on above: Performed By: #### H EMDF, ESR, TSH5, LFT3, CRTN3, URIC3, BUN3, GLUC3 #### [address] [address] #### HEPC, KYRA, TPO2 #### [address] [address] #### VD25H, RFB #### [address] [address] #### TRYPO #### The performing lab is in the report. #### SPRTE #### [address] [address] Hemoglobin mass conc (Bld) 15.9 g/dL Normal 13.0-18.0 [facility] Comment on above: Performed By: #### H EMDF, ESR, TSH5, LFT3, CRTN3, URIC3, BUN3, GLUC3 #### [address] [address] #### HEPC, KYRA, TPO2 #### [address] #### VD25H, RFB #### [facility] [address] [place] [address] #### TRYPO #### The performing lab is in the report. #### SPRTE #### [address] [address] Lymphocytes #/vol (Bld) 2.2 10*3/uL Normal 1.0-4.3 [facility] Comment on above: Performed By: #### H EMDF, ESR, TSH5, LFT3, CRTN3, URIC3, BUN3, GLUC3 #### [address] [address] #### HEPC, KYRA, TPO2 #### [address] #### VD25H, RFB #### [address] [address] #### TRYPO #### The performing lab is in the report. #### SPRTE #### [address] [address] Lymphocytes/100 WBC (Bld) 34.9 % Normal 20.0-40.0 [facility] Comment on above: Performed By: #### H EMDF, ESR, TSH5, LFT3, CRTN3, URIC3, BUN3, GLUC3 #### [address] [address] #### HEPC, KYRA, TPO2 #### [address] #### VD25H, RFB #### [address] [address] #### TRYPO #### The performing lab is in the report. #### SPRTE #### [address] [address] MCH Entitic mass (RBC) 29.4 pg Normal 26.0-34.0 [facility] Comment on above: Performed By: #### H EMDF, ESR, TSH5, LFT3, CRTN3, URIC3, BUN3, GLUC3 #### [address] [address] #### HEPC, KYRA, TPO2 #### [address] #### VD25H, RFB #### [address] [address] #### TRYPO #### The performing lab is in the report. #### SPRTE #### [address] [address] MCHC mass conc (RBC) 34.9 % Normal 32.0-36.0 [facility] Comment on above: Performed By: #### H EMDF, ESR, TSH5, LFT3, CRTN3, URIC3, BUN3, GLUC3 #### [address] [address] #### HEPC, KYRA, TPO2 #### [address] #### VD25H, RFB #### [address] [address] #### TRYPO #### The performing lab is in the report. #### SPRTE #### [address] [address] MCV Entitic volume (RBC) 84.1 fL Normal 80.0-98.0 [facility] Comment on above: Performed By: #### H EMDF, ESR, TSH5, LFT3, CRTN3, URIC3, BUN3, GLUC3 #### [address] [address] #### HEPC, KYRA, TPO2 #### [address] #### VD25H, RFB #### [address] [address] #### TRYPO #### The performing lab is in the report. #### SPRTE #### [address] [address] Monocytes #/vol (Bld) 0.4 10*3/uL Normal 0.0-0.8 [facility] Comment on above: Performed By: #### H EMDF, ESR, TSH5, LFT3, CRTN3, URIC3, BUN3, GLUC3 #### [address] [address] #### HEPC, KYRA, TPO2 #### [address] [address] #### VD25H, RFB #### [address] [address] #### TRYPO #### The performing lab is in the report. #### SPRTE #### [address] [address] Monocytes/100 WBC (Bld) 6.4 % Normal 2.0-10.0 [facility] Comment on above: Performed By: #### H EMDF, ESR, TSH5, LFT3, CRTN3, URIC3, BUN3, GLUC3 #### [address] [address] #### HEPC, KYRA, TPO2 #### [address] [address] #### VD25H, RFB #### [address] [address] #### TRYPO #### The performing lab is in the report. #### SPRTE #### [address] [address] Platelet mean volume Entitic volume (Bld) 7.9 fL Normal 7.4-10.4 [facility] Comment on above: Performed By: #### H EMDF, ESR, TSH5, LFT3, CRTN3, URIC3, BUN3, GLUC3 #### [facility] [address] [place] [address] #### HEPC, KYRA, TPO2 #### [address] [address] #### VD25H, RFB #### [facility] [address] [place] [address] #### TRYPO #### The performing lab is in the report. #### SPRTE #### [address] [address] Platelets #/vol (Bld) 278 10*3/uL Normal 140-440 [facility] Comment on above: Performed By: #### H EMDF, ESR, TSH5, LFT3, CRTN3, URIC3, BUN3, GLUC3 #### [address] [address] #### HEPC, KYRA, TPO2 #### [address] #### VD25H, RFB #### [address] [address] #### TRYPO #### The performing lab is in the report. #### SPRTE #### [address] [address] RBC #/vol (Bld) 5.42 10*6/uL Normal 4.40-5.90 [facility] Comment on above: Performed By: #### H EMDF, ESR, TSH5, LFT3, CRTN3, URIC3, BUN3, GLUC3 #### [address] [address] #### HEPC, KYRA, TPO2 #### [address] [address] #### VD25H, RFB #### [address] [address] #### TRYPO #### The performing lab is in the report. #### SPRTE #### [address] [address] WBC #/vol (Bld) 6.2 10*3/uL Normal 3.6-10.7 [facility] Comment on above: Performed By: #### H EMDF, ESR, TSH5, LFT3, CRTN3, URIC3, BUN3, GLUC3 #### [facility] [address] [place] [address] #### HEPC, KYRA, TPO2 #### [address] [address] #### VD25H, RFB #### [facility] [address] [place] [address] #### TRYPO #### The performing lab is in the report. #### SPRTE #### [address] [address] Hep C Antibodyon 09-07-2018 Hep C Antibody NOT DETECTED Normal Not-Detecte d [facility] Comment on above: Result Comment: Deja ents with DETECTED Hepatitis C Ab results should have a new specimen submitted for supplemental testing with a Hepatitis C Quantitative RNA assay (viral load), if clinically indicated. Performed By: #### H EMDF, ESR, TSH5, LFT3, CRTN3, URIC3, BUN3, GLUC3 #### [facility] [address] [place] [address] #### HEPC, KYRA, TPO2 #### [address] #### VD25H, RFB #### [facility] [address] [place] [address] #### TRYPO #### The performing lab is in the report. #### SPRTE #### [address] [address] Hepatic Functionon 9 ALP enzyme act/vol 81 U/L Normal 38-126 [facility] Comment on above: Performed By: #### H EMDF, ESR, TSH5, LFT3, CRTN3, URIC3, BUN3, GLUC3 #### [address] [address] #### HEPC, KYRA, TPO2 #### [address] [address] #### VD25H, RFB #### [facility] [address] [facility] [place] [address] #### TRYPO #### The performing lab is in the report. #### SPRTE #### [address] [address] ALT enzyme act/vol 45 U/L Normal 13-69 [facility] Comment on above: Performed By: #### H EMDF, ESR, TSH5, LFT3, CRTN3, URIC3, BUN3, GLUC3 #### [address] [address] #### HEPC, KYRA, TPO2 #### [address] #### VD25H, RFB #### [address] [address] #### TRYPO #### The performing lab is in the report. #### SPRTE #### [address] [address] AST enzyme act/vol 27 U/L Normal 15-46 [facility] Comment on above: Performed By: #### H EMDF, ESR, TSH5, LFT3, CRTN3, URIC3, BUN3, GLUC3 #### [address] [address] #### HEPC, KYRA, TPO2 #### [address] [address] #### VD25H, RFB #### [address] [address] #### TRYPO #### The performing lab is in the report. #### SPRTE #### [address] [address] Bilirubin mass conc 0.9 mg/dL Normal 0.2-1.3 [facility] Comment on above: Performed By: #### H EMDF, ESR, TSH5, LFT3, CRTN3, URIC3, BUN3, GLUC3 #### [address] [address] #### HEPC, KYRA, TPO2 #### [address] #### VD25H, RFB #### [address] [address] #### TRYPO #### The performing lab is in the report. #### SPRTE #### [address] [address] Bilirubin.direct mass conc 0.0 mg/dL Normal 0.0-0.3 [facility] Comment on above: Performed By: #### H EMDF, ESR, TSH5, LFT3, CRTN3, URIC3, BUN3, GLUC3 #### [address] [address] #### HEPC, KYRA, TPO2 #### [address] #### VD25H, RFB #### [address] [address] #### TRYPO #### The performing lab is in the report. #### SPRTE #### [address] [address] Protein mass conc 7.6 g/dL Normal 6.3-8.2 [facility] Comment on above: Performed By: #### H EMDF, ESR, TSH5, LFT3, CRTN3, URIC3, BUN3, GLUC3 #### [address] [address] #### HEPC, KYRA, TPO2 #### [address] #### VD25H, RFB #### [address] [address] #### TRYPO #### The performing lab is in the report. #### SPRTE #### [address] [address] Albumin mass conc 4.7 g/dL Normal 3.5-5.0 [facility] Comment on above: Performed By: #### H EMDF, ESR, TSH5, LFT3, CRTN3, URIC3, BUN3, GLUC3 #### [address] [address] #### HEPC, KYRA, TPO2 #### [address] [address] #### VD25H, RFB #### [address] [address] #### TRYPO #### The performing lab is in the report. #### SPRTE #### [address] [address] Rheumatiod Factor, Bloodon 0 09-07-2018 Rheumatoid Factor-Blood < 9 Normal 0-12 [facility] Comment on above: Performed By: #### H EMDF, ESR, TSH5, LFT3, CRTN3, URIC3, BUN3, GLUC3 #### [address] [address] #### HEPC, KYRA, TPO2 #### [address] #### VD25H, RFB #### [address] [address] #### TRYPO #### The performing lab is in the report. #### SPRTE #### [address] [address] Sed Rateon 09-07-2018 Sed Rate 2 mm/h Normal 0-10 [facility] Comment on above: Performed By: #### H EMDF, ESR, TSH5, LFT3, CRTN3, URIC3, BUN3, GLUC3 #### [address] [address] #### HEPC, KYRA, TPO2 #### [address] [address] #### VDJean, RFB #### [address] [address] #### TRYPO #### The performing lab is in the report. #### SPRTE #### [address] [address] Thyroid Stim. Hormoneon 08-17 Thyroid Stim. Hormone 0.618 u[IU]/mL Normal 0.465-4.680 [facility] Comment on above: Performed By: #### H EMDF, ESR, TSH5, LFT3, CRTN3, URIC3, BUN3, GLUC3 #### [address] [address] #### HEPC, KYRA, TPO2 #### [address] #### ABIGAIL, RFB #### [address] [address] #### TRYPO #### The performing lab is in the report. #### SPRTE #### [address] [address] Urea Nitrogenon 09-07-2018 Urea nitrogen mass conc 8 mg/dL Normal 7-20 [facility] Comment on above: Performed By: #### H EMDF, ESR, TSH5, LFT3, CRTN3, URIC3, BUN3, GLUC3 #### [address] [address] #### HEPC, KYRA, TPO2 #### [address] [address] #### VD25H, RFB #### [address] [address] #### TRYPO #### The performing lab is in the report. #### SPRTE #### [address] [address] Uric Acidon 09-07-2018 Urate mass conc 7.6 mg/dL Normal 2.5-8.5 [facility] Comment on above: Performed By: #### H EMDF, ESR, TSH5, LFT3, CRTN3, URIC3, BUN3, GLUC3 #### [facility] [address] [place] [address] #### HEPC, KYRA, TPO2 #### [address] #### VD25H, RFB #### [address] [place] [address] #### TRYPO #### The performing lab is in the report. #### SPRTE #### [address] [address] Vit D 25-OH, Totalon 019 Vit D 25-OH, Total 28 ng/mL Low 30-100 [facility] Comment on above: Result Comment: Ther apy is based on measurement of Total 25- OHD with the following classification levels: Less than 20 ng/mL: Indicative of Vit D deficiency 20-30 ng/mL: Suggests Vit D insufficiency Optimal: Greater than or equal to 30 ng/mL Test performed by [employer] Competitive Immunoassay, measuring Total Vitamin D, not individual fractions. Performed By: #### H EMDF, ESR, TSH5, LFT3, CRTN3, URIC3, BUN3, GLUC3 #### [facility] [address] [place] [address] #### HEPC, KYRA, TPO2 #### [address] #### VD25H, RFB #### [address] [place] [address] #### TRYPO #### The performing lab is in the report. #### SPRTE #### [address] [address] Activated PTTon 10-19-2017 aPTT 25.1 s Normal 23.0-32.4 [facility] Comment on above: Result Comment: Note new reference range. Performed By: #### L APTT ####[facility] [place], [place] [address] Basic Panelon 10-19-2017 Anion gap 11 mmol/L Normal 8-20 [facility] Comment on above: Performed By: #### L P8 ####[facility] [place], [place] [address] BUN (urea nitrogen) 6 mg/dL Low 7-25 [facility] Comment on above: Performed By: #### L P8 ####[address] [address] BUN/Creatinine Ratio 6 mg/mg Low 10-20 [facility] Comment on above: Performed By: #### L P8 ####[address] [address] Calcium 9.4 mg/dL Normal 8.5-10.1 [facility] Comment on above: Performed By: #### L P8 ####[place] [address] Chloride 106 mmol/L Normal 98-107 [facility] Comment on above: Performed By: #### L P8 ####[address] [address] CO2 27 mmol/L Normal 21-32 [facility] Comment on above: Performed By: #### L P8 ####[address] [address] Creatinine 0.95 mg/dL Normal 0.67-1.17 [facility] Comment on above: Performed By: #### L P8 ####[address] [address] Glucose mass conc 111 mg/dL High 70-99 [facility] Comment on above: Performed By: #### L P8 ####[address] [address] Potassium molar conc 3.1 mmol/L Low 3.5-5.1 [facility] Comment on above: Performed By: #### L P8 ####[place] [address] Sodium 141 mmol/L Normal 136-145 [facility] Comment on above: Performed By: #### L P8 ####[facility] [place] [id number] CHEST 1 VIEWon 10-19-2017 CHEST 1 VIEW Performed at [facility] APPROVED BY: Norman Patino MD EXAMINATION: CHEST RADIOGRAPH (PORTABLE SINGLE VIEW AP) Exam Date/Time: 10/19/2017 9:14 AMClinical History: Focal neuro deficit, new, fixed or worsening, > 6 hrs, stroke suspected.M: [id number]: None available. RESULT: See impression. IMPRESSION: Limitations: None. Lines, tubes, and devices: None. Lungs and pleura: No visualized pneumothorax, infiltrate or sizable pleural effusion. Cardiomediastinal silhouette: Within normal limits. Other: Visualized osseous structures are intact. Normal [facility] CT BRAIN ATTACKon 10-19-2017 CT BRAIN ATTACK Performed at [facility] APPROVED BY: Eric Arias MD EXAMINATION: CT BRAIN ATTACK CLINICAL HISTORY: Extremity weakness. Brain attack. TECHNIQUE: Routine CT of the brain without IV contrast. MQ: CTBA_4 CT Dose-Length Product (DLP): 1875.9 mGy*cmCT Dose Reduction Employed: No dose reduction techniques required COMPARISON: None. RESULT: The study is significantly limited due to patient motion. The cranial vertex region is excluded. Acute ischemic change: The hayes-white differentiation remains intact. Hemorrhage: Within the left deep cerebral hemispheric white matter/basal ganglia region, there is a focal parenchymal hematoma measuring approximately 3.2 x 2.2 x 3.5 cm. Mild halo of surrounding edema. No definite evidence of additional intracranial hemorrhage within limitations. Mass Lesion / Mass Effect: Local mass effect including sulcal effacement, partial right lateral ventricular effacement, and minimal rightward midline shift by 1 to 2 mm. Chronic change: None definite Parenchyma: There is no significant volume loss. The brain parenchyma is otherwise within normal limits for age given limitations. Ventricles: No hydrocephalus. Other: Visualized calvarium appears intact. Paranasal sinuses grossly clear. IMPRESSION: Significantly limited motion degraded examination. 3.5 cm left basal ganglia/deep white matter parenchymal hematoma as noted with local mass effect. Leading diagnostic consideration is hypertensive hemorrhage. CRITICAL TEST/RESULTS: Notification initiated at [address] Pressley on 10/19/2017 at 0915 hours. CR_1 Normal [facility] Hemogramon 10-19-2017 Erythrocyte distribution width Auto Ratio (RBC) 13.1 % Normal 11.5-15.9 [facility] Comment on above: Performed By: #### L CBC ####[place] [address] Erythrocytes (RBC) 5.24 mil/cmm Normal 4.60-6.20 [facility] Comment on above: Performed By: #### L CBC ####[place] [address] Hematocrit (HCT) 43.9 % Normal 42.0-52.0 [facility] Comment on above: Performed By: #### L CBC ####[place] [address] Hemoglobin mass conc (Bld) 15.4 g/dL Normal 14.0-18.0 [facility] Comment on above: Performed By: #### L CBC ####[place] [address] MCH 29.4 pg Normal 27.0-31.0 [facility] Comment on above: Performed By: #### L CBC ####[place] [address] MCHC mass conc (RBC) 35.1 % Normal 32.0-36.0 [facility] Comment on above: Performed By: #### L CBC ####[place] [address] MCV 83.8 fL Normal 80.0-94.0 [facility] Comment on above: Performed By: #### L CBC ####[place] [address] Platelet mean volume (PMV) 9.8 fL Normal 7.1-10.5 [facility] Comment on above: Performed By: #### L CBC ####[place] [address] Platelets 257 thou/cmm Normal 150-400 [facility] Comment on above: Performed By: #### L CBC ####[facility] [place], [place] [address] WBC (Leukocytes) 7.1 thou/cmm Normal 4.8-10.8 [facility] Comment on above: Performed By: #### L CBC ####[facility] [place], [place] [address] MDRD eGFRon 10-19-2017 eGFR (non-black) mL/min/{1.73_m2} Normal >60mL/m in/1 .73m2 [facility] Comment on above: Result Comment: If t he patient is , multiply the result by 1.210. Performed By: #### L GFR ####[address] [address] Protimeon 10-19-2017 INR Coag RelTime (PPP) 1.00 {INR} Normal [facility] Comment on above: Result Comment: Toñito dard Therapy 2.0-3.0High Dose 2.5-3.5 Performed By: #### L PT ####[facility] [place], [place] [address] Prothrombin time (PT) Coag time (PPP) 10.4 s Normal 9.7-13.0 [facility] Comment on above: Result Comment: Note new reference range. Performed By: #### L PT ####[address] [address] Vital Signs Date Time Vital Sign Value Performing Clinician Facility 11-30-2024 16:10-0400 Body mass index (BMI) [Ratio] 30.85 kg/m2 [facility] 11-30-2024 16:10-0400 Body weight 111.95 kg Nurse [facility] 11-30-2024 16:10-0400 Diastolic blood pressure 94 mm[Hg] Nurse [facility] 11-30-2024 16:10-0400 Heart rate 69 /min [facility] 11-30-2024 16:10-0400 Respiratory rate 16 /min [facility] 11-30-2024 16:10-0400 SaO2% (BldA) [Mass fraction] 95 % [facility] 11-30-2024 16:10-0400 Systolic blood pressure 145 mm[Hg] [facility] 11-02-2024 15:50-0400 Body mass index (BMI) [Ratio] 30.95 kg/m2 [facility] 11-02-2024 15:50-0400 Body weight 112.31 kg [facility] 11-02-2024 15:50-0400 Diastolic blood pressure 90 mm[Hg] [facility] 11-02-2024 15:50-0400 Heart rate 66 /min [facility] 11-02-2024 15:50-0400 Respiratory rate 16 /min [facility] 11-02-2024 15:50-0400 SaO2% (BldA) [Mass fraction] 99 % [facility] 11-02-2024 15:50-0400 Systolic blood pressure 138 mm[Hg] [facility] 10-25-2024 10:33-0400 Body height 182.[address] Lanette Harkins DO Work Phone: [facility] 10-25-2024 10:33-0400 Body mass index (BMI) [Ratio] 32.5 kg/m2 Dr. Lanette Harkins DO Work Phone: [facility] 10-25-2024 10:33-0400 Body weight 108.[address] Lanette Harkins DO Work Phone: [facility] 10-19-2024 11:08-0400 Body height 182.[address] Lanette Harkins DO Work Phone: [facility] 10-19-2024 11:08-0400 Body mass index (BMI) [Ratio] 33 kg/m2 Dr. Lanette Harkins DO Work Phone: [facility] 10-19-2024 11:08-0400 Body weight 110.[address] Lanette Harkins DO Work Phone: [facility] 10-06-2024 11:26-0400 Body mass index (BMI) [Ratio] 32.5 kg/m2 Dr. Lanette Harkins DO Work Phone: [facility] 10-06-2024 11:26-0400 Body weight 108.[address] Lanette Harkins DO Work Phone: [facility] 09-20-2024 10:55-0400 Body mass index (BMI) [Ratio] 33.9 kg/m2 Dr. Lanette Harkins DO Work Phone: [facility] 09-20-2024 10:55-0400 Body weight 113.[address] Lanette Harkins DO Work Phone: [facility] 03-15-2024 09:22-0400 Body height 190.5 cm Cyndy Ariaser [employer] Work Phone: [facility] 03-15-2024 09:22-0400 Body mass index (BMI) [Ratio] 31.5 kg/m2 Cyndy Forester [employer] Work Phone: [facility] 03-15-2024 09:22-0400 Body weight 114.31 kg Cyndy Forester [employer] Work Phone: [facility] 03-15-2024 09:22-0400 Diastolic blood pressure 73 mm[Hg] Cyndy Forester [employer] Work Phone: [facility] 03-15-2024 09:22-0400 Heart rate 110 /min Cyndy Forester [employer] Work Phone: [facility] 03-15-2024 09:22-0400 Systolic blood pressure 128 mm[Hg] Cyndy Forester [employer] Work Phone: [facility] 02-23-2024 08:57-0400 Diastolic blood pressure 92 mm[Hg] Jennifer Munroe MD Work Phone: [facility] 02-23-2024 08:57-0400 Heart rate 88 /min Jennifer Munroe MD Work Phone: [facility] 02-23-2024 08:57-0400 Respiratory rate 16 /min Jennifer Munroe MD Work Phone: [facility] 02-23-2024 08:57-0400 SaO2% (BldA) [Mass fraction] 95 % Jennifer Munroe MD Work Phone: [facility] 02-23-2024 08:57-0400 Systolic blood pressure 134 mm[Hg] Jennifer Munroe MD Work Phone: [facility] 12-03-2023 10:59-0400 Diastolic blood pressure 81 mm[Hg] Jennifer Munroe MD Work Phone: [facility] 12-03-2023 10:59-0400 Heart rate 69 /min Jennifer Munroe MD Work Phone: [facility] 12-03-2023 10:59-0400 SaO2% (BldA) [Mass fraction] 96 % Jennifer Munroe MD Work Phone: [facility] 12-03-2023 10:59-0400 Systolic blood pressure 130 mm[Hg] Jennifer Munreo MD Work Phone: [facility] 11-09-2023 11:19-0400 Diastolic blood pressure 89 mm[Hg] Jennifer Munroe MD Work Phone: [facility] 11-09-2023 11:19-0400 Heart rate 91 /min Jennifer Munroe MD Work Phone: [facility] 11-09-2023 11:19-0400 Respiratory rate 18 /min Jennifer Munroe MD Work Phone: [facility] 11-09-2023 11:19-0400 SaO2% (BldA) [Mass fraction] 94 % Jennifer Munroe MD Work Phone: [facility] 11-09-2023 11:19-0400 Systolic blood pressure 131 mm[Hg] Jennifer Munroe MD Work Phone: [facility] 08-20-2023 10:39-0400 Body height 192.9 cm Mireya Sweet PA-C Work Phone: [facility] 08-20-2023 10:39-0400 Body temperature 98.49 [degF] Mireya Sweet PA-C Work Phone: [facility] 08-20-2023 10:39-0400 Body weight 119.85 kg Mireya Sweet PA-C Work Phone: [facility] 08-20-2023 10:39-0400 Diastolic blood pressure 77 mm[Hg] Mireya Sweet PA-C Work Phone: [facility] 08-20-2023 10:39-0400 Heart rate 86 /min Mireya Sweet PA-C Work Phone: [facility] 08-20-2023 10:39-0400 Systolic blood pressure 125 mm[Hg] Mireya Sweet PA-C Work Phone: [facility] 06-30-2023 12:11-0500 Diastolic blood pressure 90 mm[Hg] Jennifer Munroe MD Work Phone: [facility] 06-30-2023 12:11-0500 Heart rate 111 /min Jennifer Munroe MD Work Phone: [facility] 06-30-2023 12:11-0500 Respiratory rate 16 /min Jennifer Munroe MD Work Phone: [facility] 06-30-2023 12:11-0500 SaO2% (BldA) [Mass fraction] 96 % Jennifer Munroe MD Work Phone: [facility] 06-30-2023 12:11-0500 Systolic blood pressure 138 mm[Hg] Jennifer Munroe MD Work Phone: [facility] 03-05-2023 13:18-0400 Diastolic blood pressure 89 mm[Hg] Rowan Boateng DO Work Phone: [facility] 03-05-2023 13:18-0400 Heart rate 78 /min Rowan Boateng DO Work Phone: [facility] 03-05-2023 13:18-0400 Respiratory rate 16 /min Rowan Boateng DO Work Phone: [facility] 03-05-2023 13:18-0400 SaO2% (BldA) [Mass fraction] 98 % Rowan Boateng DO Work Phone: [facility] 03-05-2023 13:18-0400 Systolic blood pressure 137 mm[Hg] Rowan Boateng DO Work Phone: [facility] 03-05-2023 13:03-0400 Body temperature 98.01 [degF] Rowan Boateng DO Work Phone: [facility] 02-17-2023 12:44-0400 Body height 192 cm Rowan Boateng DO Work Phone: [facility] 02-17-2023 12:44-0400 Body weight 111.13 kg Rowan Boateng DO Work Phone: [facility] 02-17-2023 12:44-0400 Diastolic blood pressure 102 mm[Hg] Rowan Boateng DO Work Phone: [facility] 02-17-2023 12:44-0400 Heart rate 87 /min Rowan Boateng DO Work Phone: [facility] 02-17-2023 12:44-0400 Respiratory rate 19 /min Rowan Boateng DO Work Phone: [facility] 02-17-2023 12:44-0400 SaO2% (BldA) [Mass fraction] 97 % Rowan Boateng DO Work Phone: [facility] 02-17-2023 12:44-0400 Systolic blood pressure 150 mm[Hg] Rooseveltradha Boateng DO Work Phone: [facility] 02-16-2023 12:28-0400 Body height 188 cm Mireya Sweet PA-C Work Phone: [facility] 02-16-2023 12:28-0400 Body temperature 98.71 [degF] Mireya Sweet PA-C Work Phone: [facility] 02-16-2023 12:28-0400 Body weight 112.45 kg Mireya Sweet PA-C Work Phone: [facility] 02-16-2023 12:28-0400 Diastolic blood pressure 87 mm[Hg] Mireya Dick PA-C Work Phone: [facility] 02-16-2023 12:28-0400 Heart rate 73 /min Mireya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 ERROR (Codi maria teresa Dx) Start: 06-28-2022 Refill Rowan Faulkner DO Work Phone: Pain Management Comment on above: Refill Request Start: 06-23-2022 End: 06-23-2022 Subsequent hospital visit by physician [facility] (1.5t) Radiology Comment on above: Chronic pain of righ t knee [M25.561, G89.29] Start: 06-19-2022 Refill Rowan Faulkner DO Work Phone: Pain Management Comment on above: Refill Request Start: 06-16-2022 End: 06-16-2022 Patient encounter procedure Rowan Boateng DO Work Phone: Pain Management Comment on above: Other chronic pain [ G89.29 (ICD-10-CM)] (Primary Dx); Reflex sympathetic dystrophy [G90.50 (ICD-10-CM)]; FDC (current) use of 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 [Z79.891 (ICD-10-CM)] Start: 06-16-2022 End: 06-16-2022 ambulatory Emg 850) Neurology Start: 06-16-2022 End: 06-16-2022 Patient encounter procedure Emg 2 Neur Padmini (Max Weight: 850) [facility] Start: 06-02-2022 End: 06-02-2022 ambulatory Iesha Casillasi PA-C Work Phone: Orthopaedics Comment on above: Chronic pain of righ t knee (Primary Dx) Start: 06-02-2022 End: 06-02-2022 Telemedicine consultation with patient Iesha Casillasi PA-C Work Phone: [facility] Start: 05-23-2022 Telephone encounter Mor sheao SAFETY NET MAKER.COIL BUILDER Work Phone: Pain Management Comment on above: pt reports his medic ation is wrong from pharmacy Start: 05-23-2022 End: 05-23-2022 Patient encounter procedure Iesha Regotti PA-C Work Phone: Orthopaedics Comment on above: Chronic pain of righ t knee (Primary Dx); Primary osteoarthritis of right knee Start: 05-23-2022 End: 05-23-2022 Subsequent hospital visit by physician [facility] Work Phone: Radiology Comment on above: Chronic pain syndrom e [G89.4] Start: 04-22-2022 Refill Rowan Faulkner DO Work Phone: Pain Management Comment on above: Refill Request Start: 04-21-2022 End: 04-21-2022 Patient encounter procedure Rowan Boateng DO Work Phone: Pain Management Comment on above: Chronic pain syndrom e [G89.4 (ICD-10-CM)] (Primary Dx); Reflex sympathetic dystrophy [G90.50 (ICD-10-CM)]; Radiculopathy, lumbar region [M54.16 (ICD-10-CM)]; FDC (current) use of 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 [Z79.891 (ICD-10-CM)]; Chronic pain syndrome; Primary osteoarthritis of right knee Start: 03-21-2022 End: 03-21-2022 ambulatory Mor Ernesto SAFETY NET MAKER.COIL BUILDER Work Phone: Pain Management Comment on above: Chronic pain syndrom e (Primary Dx); RSD (reflex sympathetic dystrophy); FDC (current) use of 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; Lumbar radiculopathy; Chronic pain of right knee; Chronic right shoulder pain Osteoarthritis of ri ght shoulder, unspecified osteoarthritis type (Primary Dx) Start: 03-21-2022 Telephone encounter Rowan Boateng DO Work Phone: MR PAIN MANAGEMENT Comment on above: Regarding Procedure Start: 03-21-2022 End: 03-21-2022 Telemedicine consultation with patient Mor Kellyo SAFETY NET MAKER.COIL BUILDER Work Phone: [facility] Start: 03-16-2022 Refill Mor Ernesto SAFETY NET MAKER.COIL BUILDER Work Phone: Pain Management Comment on above: Refill Request Start: 02-19-2022 End: 02-19-2022 ambulatory Mor Ernesto SAFETY NET MAKER.COIL BUILDER Work Phone: Pain Management Comment on above: Chronic pain syndrom e (Primary Dx); RSD (reflex sympathetic dystrophy); FDC (current) use of 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; Degeneration of intervertebral disc of lumbar region Start: 02-19-2022 End: 02-19-2022 Telemedicine consultation with patient Mor Ernesto SAFETY NET MAKER.COIL BUILDER Work Phone: [facility] Start: 01-30-2022 End: 01-30-2022 Patient encounter procedure CAM MAHER APRN-COIL BUILDER [facility] Start: 01-21-2022 End: 01-21-2022 ambulatory Mor Kellyo SAFETY NET MAKER.COIL BUILDER Work Phone: Pain Management Comment on above: Chronic pain syndrom e (Primary Dx); RSD (reflex sympathetic dystrophy); 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; Degeneration of intervertebral disc of lumbar region Start: 01-21-2022 End: 01-21-2022 Telemedicine consultation with patient Mor Edgar APRN.COIL BUILDER Work Phone: [facility] Start: 12-20-2021 End: 12-20-2021 ambulatory Mor Edgar APRN.COIL BUILDER Work Phone: Pain Management Comment on above: RSD (reflex sympathe tic dystrophy) (Primary Dx); Chronic pain syndrome; Lumbar radiculopathy; Chronic pain of right knee; FDC (current) use of 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 Start: 12-20-2021 End: 12-20-2021 Telemedicine consultation with patient Mor Edgar APRN.COIL BUILDER Work Phone: [facility] Start: 12-16-2021 Telephone encounter Mor burt APRN.COIL BUILDER Work Phone: Pain Management Comment on above: Marbleizing Machine Tender - O ther Start: 12-12-2021 Telephone encounter Mor burt APRN.COIL BUILDER Work Phone: Pain Management Comment on above: Corrected UDS order needed Start: 12-05-2021 Telephone encounter Mor burt APRN.COIL BUILDER Work Phone: Pain Management Comment on above: Orders Start: 11-29-2021 End: 11-29-2021 Patient encounter procedure PAUL MARTINES APRN-COIL BUILDER [facility] Start: 11-25-2021 End: 11-25-2021 Patient encounter procedure PAUL ALBARRANABDIEL SAFETY NET MAKER-COIL BUILDER [facility] Start: 11-19-2021 End: 11-19-2021 ambulatory Mor Edgar APRN.COIL BUILDER Work Phone: Pain Management Comment on above: Chronic pain syndrom e (Primary Dx); Chronic pain of right knee; Chronic right shoulder pain; Lumbar radiculopathy; Degeneration of intervertebral disc of lumbar region; Generalized osteoarthritis; Osteoarthritis of right shoulder, unspecified osteoarthritis type; Strain of neck muscle, subsequent encounter; Spasm of back muscles Start: 11-19-2021 End: 11-19-2021 Telemedicine consultation with patient Mor Edgar APRN.COIL BUILDER Work Phone: [facility] Start: 11-11-2021 End: 11-11-[address] [facility]trasound, [facility] Start: 09-19-2021 End: 09-19-2021 Subsequent hospital visit by physician Rowan Boateng Work Phone: [facility] Comment on above: OSTEOARTHRITIS Start: 09-18-2021 End: 09-18-2021 Subsequent hospital visit by physician Mor Edgar APRN.COIL BUILDER Work Phone: [facility] Comment on above: VIRTUAL Start: 09-04-2021 End: 09-04-2021 Subsequent hospital visit by physician Rowan Boateng Work Phone: [facility] Comment on above: OSTEOARTHRITIS Start: 08-22-2021 End: 08-22-2021 Subsequent hospital visit by physician Mor Meek APRN.COIL BUILDER Work Phone: [facility] Comment on above: VIRTUAL Start: 08-21-2021 End: 08-21-2021 Subsequent hospital visit by physician Rowan Boateng Work Phone: [facility] Comment on above: M46.16 Start: 05-23-2021 End: 05-23-2021 Patient encounter procedure LANETTE HARKINS DO [facility] Start: 04-03-2021 End: 04-04-2021 Emergency department patient visit DR ALFONZO WHITE DO [facility] Start: 03-13-2021 End: 03-17-2021 Outreach Lab LANETTE HARKINS DO [facility] Start: 12-31-2020 AUDIT Lanette matthew Work Phone: [facility] Work Phone: Start: 01-23-2016 End: 01-23-2016 Patient encounter procedure KRISSY LINO Facility:[facility] Procedures Date Procedure Procedure Detail Performing Clinician Start: 12-05-2024 Radiologic exam knee complete 4/more views Dr. Lanette Harkins DO Work Phone: Start: 11-15-2024 MRI of joint of lower extremity Dr. Michael Harkins DO Work Phone: Start: 10-25-2024 Plain X-ray of shoulder Dr. Lanette matthew DO Work Phone: Start: 02-23-2024 End: 02-23-2024 Arthrocentesis aspir&/inj major jt/bursa w/o us Jennifer Munroe MD Work Phone: Start: 11-09-2023 End: 11-09-2023 Arthrocentesis aspir&/inj major jt/bursa w/o us Jennifer Munroe MD Work Phone: Start: 11-09-2023 End: 11-09-2023 Fluoroscopic guidance needle placement add on Jennifer Munroe MD Work Phone: Start: 06-30-2023 End: 06-30-2023 Arthrocentesis aspir&/inj major jt/bursa w/o us Jennifer Munroe MD Work Phone: Start: 06-30-2023 End: 06-30-2023 Fluoroscopic guidance needle placement add on Jennifer Munroe MD Work Phone: Start: 06-01-2023 Lipid 1996 panel - Serum or Plasma Jennifer Munroe MD Work Phone: Start: 03-05-2023 End: 03-05-2023 Arthrocentesis aspir&/inj major jt/bursa w/o us Rowan Boateng DO Work Phone: Start: 01-16-2023 History of repair of musculotendinous cuff of shoulder S/P rotator cuff repair Kishabennett NAGEL-C Work Phone: Start: 09-05-2022 Radex shoulder complete minimum 2 views Kishabennett NAGEL-C Work Phone: Start: 06-16-2022 Nerve conduction studies 5-6 studies Mor Edgar SAFETY NET MAKER.COIL BUILDER Work Phone: Start: 05-23-2022 Radiologic exam knee complete 4/more views Rowan Boateng DO Work Phone: Start: 11-11-2021 Echography of scrotum and contents Start: 05-16-2020 Cardiac catheterization LANETTE Lynn O Comment on above: Normal Coronaries Appendectomy Lanette early Work Phone: Appendectomy LANETTE KEENSAY DO Arthroscopy of knee Lanette Harkins Work Phone: Biceps brachii muscl e structure (body structure) LANETTE HARKINS DO Cardiac catheterization Robe rt Syed Harkins Work Phone: Comment on above: 05/16/2020; Colonoscopy Lanette early Work Phone: Comment on above: 2020 - normal; Cyst (disorder) RAHUL Cuellar SAFETY NET MAKER-COIL BUILDER Decompression of median nerve LANETTE HARKINS DO Division of tendon of upper arm Lanette Harkins Work Phone: Esophagogastroduodenoscopy R rafasherrie Harkins Work Phone: Comment on above: 2020 - ; History of repair of musculotendinous cuff of shoulder S/P rotator cuff repair Mal Gotti MD Work Phone: History of repair of musculotendinous cuff of shoulder S/P right rotator cuff repair Franchesca Larson MAINTENANCE HELPER History of repair of musculotendinous cuff of shoulder S/P right rotator cuff repair Franchesca Larson MAINTENANCE HELPER History of repair of musculotendinous cuff of shoulder S/P right rotator cuff repair Eloise Hebert PT Work Phone: History of repair of musculotendinous cuff of shoulder S/P rotator cuff repair Mal Gotti MD Work Phone: History of repair of musculotendinous cuff of shoulder S/P right rotator cuff repair Eloise Hebert PT Work Phone: History of repair of musculotendinous cuff of shoulder S/P right rotator cuff repair Franchesca Larson MAINTENANCE HELPER History of repair of musculotendinous cuff of shoulder S/P right rotator cuff repair Eloise Hebert PT Work Phone: History of repair of musculotendinous cuff of shoulder S/P right rotator cuff repair Eloise Hebert PT Work Phone: History of repair of musculotendinous cuff of shoulder S/P rotator cuff repair Kisha Walters PA-C Work Phone: History of repair of musculotendinous cuff of shoulder S/P right rotator cuff repair Franchesca Larson MAINTENANCE HELPER History of repair of musculotendinous cuff of shoulder S/P right rotator cuff repair Franchesca Larson MAINTENANCE HELPER History of repair of musculotendinous cuff of shoulder S/P rotator cuff repair Dr. Fred Huber MD History of repair of musculotendinous cuff of shoulder S/P rotator cuff repair Dr. Fred Huber MD Knee region structur e (body structure) LANETTE HARKINS DO Comment on above: SURGERY Rotator cuff includi ng muscles and tendons (body structure) RAHUL FREEMAN SAFETY NET MAKER-COIL BUILDER Sinus (morphologic abnormality) RAHUL FREEMAN SAFETY NET MAKER-COIL BUILDER Tonsillectomy Lanette Bonilla vipul Work Phone: Tonsillectomy LANETTE HARKINS DO Vasectomy Lanette early Work Phone: Plan of Treatment Date Care Activity Detail Author Start: 02-29-2052 RSV Immunization for Adults (1 - 1-dose 75+ series) RSV Immunization for Adults (1 - 1-dose 75+ series) [facility] Start: 06-01-2028 Lipid panel Lipid Screening [facility] Start: 06-24-2027 DTaP/Tdap/Td Vaccines (2 - Td or Tdap) DTaP/Tdap/Td Vaccines (2 - Td or Tdap) [facility] Start: 06-24-2027 Urine microalbumin profile [facility] Start: 05-16-2027 Diabetes Screening Diabetes Screening [facility] Start: 2027 Zoster Vaccines (1 of 2) Zoster Vaccines (1 of 2) [facility] Start: 09-12-2026 Diabetes Screening Diabetes Screening [facility] Start: 06-02-2026 Diabetes Screening Diabetes Screening [facility] Start: 06-29-2025 DIABETES SCREEN DIABETES SCREEN [facility] Start: 06-29-2025 Diabetes Screening Diabetes Screening [facility] Start: 04-19-2025 End: 04-19-2025 Patient encounter procedure 04/19/2025 1:00 PM EST Office Visit Pain Management [address] [place] [address] IV Infusion Pain Management Comment on above: IV Infusion Start: 04-11-2025 DIABETES SCREEN DIABETES SCREEN [facility] Start: 04-07-2025 End: 04-07-2025 Patient encounter procedure 04/07/2025 3:30 PM EST Office Visit Pain Management [address] [place] [address] Leeann Owens PA-C [address] [place] [address] 3 month follow upaiq Pain Management Comment on above: 3 month follow upaiq Start: 03-22-2025 End: 03-22-2025 Patient encounter procedure 03/22/2025 1:00 PM EST Office Visit Pain Management [address] [place] [address] IV Infusion Pain Management Comment on above: IV Infusion Start: 03-08-2025 ambulatory Ambulatory Facility:[facility] Start: 02-22-2025 End: 02-22-2025 Patient encounter procedure 02/22/2025 1:00 PM EDT Office Visit Pain Management [address] [place] [address] IV Infusion Pain Management Comment on above: IV Infusion Start: 01-25-2025 End: 01-25-2025 Patient encounter procedure 01/25/2025 1:00 PM EDT Office Visit Pain Management [address] [place] [address] iv infusion Pain Management Comment on above: iv infusion Start: 01-16-2025 Influenza vaccination [facility] Start: 01-09-2025 End: 01-09-2025 Patient encounter procedure 01/09/2025 11:30 AM EDT Office Visit Pain Management [address] [place] [address] Leeann Owens PA-C [address] [place] [address] 3 month follow up Pain Management Comment on above: 3 month follow up Start: 12-05-2024 X-ray of knee, four or more views Knee [address] [facility] Start: 12-05-2024 XR Knee GE [address] [facility] Start: 11-30-2024 End: 11-30-2024 Patient encounter procedure 11/30/2024 1:00 PM EDT Office Visit Pain Management [address] [place] [address] iv infusion Pain Management Comment on above: iv infusion Start: 11-19-2024 DIABETES SCREEN DIABETES SCREEN [facility] Start: 11-02-2024 End: 11-02-2024 Patient encounter procedure 11/02/2024 1:00 PM EDT Office Visit Pain Management [address] [place] [address] iv infusion Pain Management Comment on above: iv infusion Start: 10-25-2024 Patient referral [facility] Work Phone: Start: 10-25-2024 Plain X-ray of shoulder Shoulder min 2 Views [facility] Start: 10-25-2024 XR Shoulder GE [address] [facility] Start: 09-08-2024 End: 09-08-2024 Admission to same day surgery center 09/08/2024 2:45 PM EDT - 09/08/2024 3:15 PM EDT Surgery [facility] Endoscopy [address] [place] [address] Juan Ochoa MD [address] [place] [address] ESOPHAGOGASTRODUODENOSCOPY DIAGNOSTIC [80572 (CPT )] [facility] Endoscopy Comment on above: ESOPHAGOGASTRODUODENOSCOPY DIAGNOSTIC [4 9813 (CPT )] Start: 09-08-2024 End: 09-08-2024 Esophagogastroduodenoscopy transoral diagnostic ESOPHAGOGASTRODUODENOSCOPY DIAGNOSTIC Nausea with vomiting, unspecified Epigastric pain 09/08/2024 2:45 PM EDT [facility] Gastroenterology Start: 09-08-2024 Subsequent hospital visit by physician 09/08/2024 2:45 PM EDT Hospital Encounter [facility] Endoscopy [address] [place] [address] Juan Ochoa MD [address] [place] [address] [facility] Start: 08-19-2024 BP Controlled (<130/80) BP Controlled (<130/80) [facility] Start: 07-01-2024 End: 07-01-2024 Patient encounter procedure 07/01/2024 4:00 PM EST Office Visit Pain Management [address] [place] [address] Leeann Owens PA-C [address] [place] [address] follow up Pain Management Comment on above: follow up Start: 06-02-2024 Diabetes mellitus screening Diabetes Screening [facility] Start: 04-21-2024 End: 04-21-2024 Patient encounter procedure 04/21/2024 2:00 PM EST Office Visit Pain Management [address] [place] [address] Kapil Hicks APRN.COIL BUILDER [address] [place] [address] 3 month follow up Pain Management Comment on above: 3 month follow up Start: 02-25-2024 End: 02-25-2024 Patient encounter procedure 02/25/2024 11:15 AM EDT [facility] [address] [place] [address] Mireya Sweet PA-C [address] [place] [address] F/U Rehab Medicine [facility] Comment on above: F/U Start: 02-23-2024 End: 02-23-2024 Admission to same day surgery center 02/23/2024 9:00 AM EDT - 02/23/2024 9:15 AM EDT Surgery [facility] [address] [place] [address] Jennifer Munroe MD [address] [place] [address] ARTHROCENTESIS,ASPIRATION AND/OR INJECTION,MAJOR JOINT OR BURSA W/O US GUIDANCE MR PA[facility] MANAGEMENT Comment on above: ARTHROCENTESIS,ASPIRATION AND/OR INJECTI ON,MAJOR JOINT OR BURSA W/O US GUIDANCE Start: 02-23-2024 Subsequent hospital visit by physician 02/23/2024 9:00 AM EDT Hospital Encounter [facility] [address] [place] [address] Jennifer Munroe MD [address] [place] [address] Chronic right shoulder pain [M25.511, G89.29] [facility] PA[facility] MANAGEMENT Comment on above: Chronic right shoulder pain [M25.511, G8 9.29] Start: 02-23-2024 End: 02-23-2024 Arthrocentesis aspir&/inj major jt/bursa w/o us MR PAIN Start: 02-16-2024 End: 02-16-2024 Admission to same day surgery center 02/16/2024 9:00 AM EDT - 02/16/2024 9:15 AM EDT Surgery [facility] [address] [place] [address] Jennifer Munroe MD [address] [place] [address] ARTHROCENTESIS,ASPIRATION AND/OR INJECTION,MAJOR JOINT OR BURSA W/O US GUIDANCE MR PA[facility]NAGEMENT Comment on above: ARTHROCENTESIS,ASPIRATION AND/OR INJECTI ON,MAJOR JOINT OR BURSA W/O US GUIDANCE Start: 02-16-2024 End: 02-16-2024 Arthrocentesis aspir&/inj major jt/bursa w/o us ARTHROCENTESIS,ASPIRATION AND/OR INJECTION,MAJOR JOINT OR BURSA W/O US GUIDANCE Primary osteoarthritis of right knee 02/16/2024 9:00 AM EDT MR PAIN Start: 02-16-2024 Subsequent hospital visit by physician 02/16/2024 9:00 AM EDT Hospital Encounter [facility] [address] [place] [address] Jennifer Munroe MD [address] [place] [address] Primary osteoarthritis of right knee [M17.11] MR PAIN MANAGEMENT Comment on above: Primary osteoarthritis of right knee [M1 7.11] Start: 02-03-2024 End: 02-03-2024 Follow-up encounter 02/03/2024 11:30 AM EDT [facility] Pain [address] [address] Chantell Barr, SAFETY NET MAKER.COIL BUILDER [address] [place] [address] [facility] Comment on above: Follow Up Start: 01-17-2024 Covid-19 Vaccine ( season) Covid-19 Vaccine ( season) [facility] Start: 01-17-2024 Covid-19 Vaccine ( season) Covid-19 Vaccine ( season) [facility] Start: 01-17-2024 Influenza vaccination [facility] Start: 12-03-2023 End: 01-02-2025 XR Lumbar spine AP and Lateral XR LUMBAR LIMITED 2V AP/LAT Radiology Routine Chronic pain syndrome Expected: 12/03/2023, Expires: 01/02/2025 [facility] Work Phone: Comment on above: Expected: 12/03/2023, Expires: Start: 12-03-2023 End: 01-02-2025 XR Thoracic spine AP and Lateral XR THORACIC LIMITED 2V AP/LAT Radiology Routine Chronic pain syndrome Expected: 12/03/2023, Expires: 01/02/2025 [facility] Comment on above: Expected: 12/03/2023, Expires: Start: 12-03-2023 End: 12-03-2023 Patient encounter procedure 12/03/2023 11:00 AM EDT Office Visit Pain Management [address] [place] [address] Jennifer Munroe MD [address] [place] [address] Back pain Pain Management Comment on above: Back pain Start: 10-26-2023 End: 10-26-2023 Admission to same day surgery center 10/26/2023 1:45 PM EDT - 10/26/2023 2:00 PM EDT Surgery [facility] [address] [place] [address] Jennifer Munroe MD [address] [place] [address] ARTHROCENTESIS,ASPIRATION AND/OR INJECTION,MAJOR JOINT OR BURSA W/O US GUIDANCE MR PAIN [facility]NAGEMENT Comment on above: ARTHROCENTESIS,ASPIRATION AND/OR INJECTI ON,MAJOR JOINT OR BURSA W/O US GUIDANCE Start: 10-26-2023 End: 10-26-2023 Arthrocentesis aspir&/inj major jt/bursa w/o us ARTHROCENTESIS,ASPIRATION AND/OR INJECTION,MAJOR JOINT OR BURSA W/O US GUIDANCE Chronic right shoulder pain 10/26/2023 1:45 PM EDT MR PAIN Start: 10-26-2023 Subsequent hospital visit by physician 10/26/2023 1:45 PM EDT Hospital Encounter MR PAIN MANAGEMENT [address] [place] [address] Jennifer Munroe MD [address] [place] [address] Chronic right shoulder pain [M25.511, G89.29] MR PAIN MANAGEMENT Comment on above: Chronic right shoulder pain [M25.511, G8 9.29] Start: 10-20-2023 End: 10-20-2023 Admission to same day surgery center 10/20/2023 11:45 AM EDT - 10/20/2023 12:00 PM EDT Surgery MR PAIN MANAGEMENT [address] [place] [address] Jennifer Munroe MD [address] [place] [address] ARTHROCENTESIS,ASPIRATION AND/OR INJECTION,MAJOR JOINT OR BURSA W/O US GUIDANCE MR PAIN MANAGEMENT Comment on above: ARTHROCENTESIS,ASPIRATION AND/OR INJECTI ON,MAJOR JOINT OR BURSA W/O US GUIDANCE Start: 10-20-2023 End: 10-20-2023 Arthrocentesis aspir&/inj major jt/bursa w/o us ARTHROCENTESIS,ASPIRATION AND/OR INJECTION,MAJOR JOINT OR BURSA W/O US GUIDANCE Primary osteoarthritis of right knee 10/20/2023 11:45 AM EDT MR PAIN Start: 10-20-2023 End: 10-20-2023 Fluoroscopic guidance needle placement add on FLUOROSCOPIC GUIDANCE FOR NEEDLE PLACEMENT Primary osteoarthritis of right knee 10/20/2023 11:45 AM EDT MR PAIN Start: 10-20-2023 Subsequent hospital visit by physician 10/20/2023 11:45 AM EDT Hospital Encounter MR PAIN MANAGEMENT [address] [place] [address] Jennifer Munroe MD [address] [place] [address] Primary osteoarthritis of right knee [M17.11] MR PAIN MANAGEMENT Comment on above: Primary osteoarthritis of right knee [M1 7.11] Start: 10-01-2023 End: 10-01-2023 Follow-up encounter 10/01/2023 10:45 AM EDT [facility] [address] [place] [address] Chantell Barr APRN.COIL BUILDER [address] [place] [address] 3 [address] [facility] Comment on above: 3 month follow up Start: 01-16-2023 Covid-19 Vaccine ( season) Covid-19 Vaccine () [facility] Start: 01-16-2023 Influenza vaccination [facility] Start: 12-09-2022 End: 02-08-2023 TOXASSURE FLEX 23, URINE TOXASSURE FLEX 23, URINE Lab Routine Chronic pain syndrome Expected: 12/09/2022, Expires: 02/08/2023 [facility] Work Phone: Comment on above: Expected: 12/09/2022, Expires: 3 Start: 11-19-2022 End: 01-19-2023 TOXASSURE FLEX 23, URINE TOXASSURE FLEX 23, URINE Lab Routine Chronic pain syndrome Expected: 11/19/2022, Expires: 01/19/2023 [facility] Work Phone: Comment on above: Expected: 11/19/2022, Expires: 3 Start: 09-09-2022 End: 09-09-2022 Patient encounter procedure 09/09/2022 2:30 PM EDT Appointment [facility] [place], [place] [id number] [facility] Start: 2022 COLOGUARD (FIT-DNA) COLOGUARD (FIT-DNA) [facility] Start: 2022 Colonoscopy COLONOSCOPY [facility] Start: 2022 COLORECTAL CANCER SCREENING COLORECTAL CANCER SCREENING [facility] Start: [address] COLONOGRAPHY [facility] Start: 2022 FECAL OCCULT BLOOD FECAL OCCULT BLOOD [facility] Start: 2022 Screening for malignant neoplasm of colon [facility] Start: 2022 SIGMOIDOSCOPY SIGMOIDOSCOPY [facility] Start: 01-16-2022 FLU (#1) FLU (#1) [facility] Start: 01-16-2022 Influenza vaccination [facility] Start: 12-16-2021 End: 02-15-2022 TOXICOLOGY SCRN W/CONF,URINE TOXICOLOGY SCRN W/CONF,UR INE Lab Routine [facility]DC (current) use of 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 Expected: 12/16/2021 (Approximate), Expires: 02/15/2022 [facility] Work Phone: Comment on above: Expected: 12/16/2021 (Approximate), Expi res: 02/15/2022 Start: 12-12-2021 End: 02-11-2022 DRUG SCR TOXASURE DRUG SCR TOXASURE Lab Routine 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 Expected: 12/12/2021, Expires: 02/11/2022 [facility] Work Phone: Comment on above: Expected: 12/12/2021, Expires: 2 Start: 01-16-2021 Influenza vaccination INFLUENZA (#1) [facility] Start: 07-22-2017 Tetanus Diphtheria and Pertussis Vaccines (2 - Td or Tdap) Tetanus Diphtheria and Pertussis Vaccines (2 - Td or Tdap) [facility] Start: 02-29-2012 Lipid 1996 panel - Serum or Plasma Lipid Screening [facility] Start: 02-29-2012 LIPID SCREEN LIPID SCREEN [facility] Start: 02-29-1996 Hepatitis B Vaccine (1 of 3 - 19+ 3-dose series) Hepatitis B Vaccine (1 of 3 - 19+ 3-dose series) [facility] Start: 02-29-1996 Hepatitis B Vaccines (1 of 3 - 19+ 3-dose series) Hepatitis B Vaccines (1 of 3 - 19+ 3-dose series) [facility] Start: 02-29-1996 Urine microalbumin profile DTAP,TDAP,TD (1 - Tdap) [facility] Start: 1995 ANNUAL PCP TEAM CHRONIC DISEASE VISIT ANNUAL PCP TEAM CHRONIC DISEASE VISIT [facility] Start: 1995 Anxiety Screening Anxiety Screening [facility] Start: 1995 BP CONTROLLED (<130/80) BP CONTROLLED (<130/80) [facility] Start: 1995 HEPATITIS C SCREENING HEPATITIS C SCREENING [facility] Start: 1995 Hepatitis C screening Hepatitis C Screening [facility] Start: 1995 HIV SCREENING HIV SCREENING [facility] Start: 1995 HIV screening HIV Screening [facility] Start: 1993 MenB (1 of 2 - MenB 2-Dose Series Bexsero) MenB (1 of 2 - MenB 2-Dose Series Bexsero) [facility] Start: 1989 Depression Monitoring Depression Monitoring [facility] Start: 1982 COVID-19 VACCINE (1) COVID-19 VACCINE (1) [facility] Start: 1978 MMR (1 of 1 - Standard series) MMR (1 of 1 - Standard series) [facility] Start: 1978 MMR Vaccines (1 of 1 - Standard series) MMR Vaccines (1 of 1 - Standard series) [facility] Start: 1978 Varicella (1 of 2 - 2-dose childhood series) Varicella (1 of 2 - 2-dose childhood series) [facility] Start: 1977 COVID-19 (#1) COVID-19 (#1) [facility] Start: 1977 COVID-19 VACCINE (#1) COVID-19 VACCINE (#1) [facility] Start: 1977 HEPATITIS B (1 of 3 - 3-dose series) HEPATITIS B (1 of 3 - 3-dose series) [facility] Start: 1977 Hepatitis B Vaccine (1 of 3 - 3-dose series) Hepatitis B Vaccine (1 of 3 - 3-dose series) [facility] Start: 1977 HIV screening HIV Screening [facility] Start: 1977 Lipid panel Lipid Panel [facility] Start: 1977 Screening for malignant neoplasm of colon [facility] Arthrocentesis aspir &/inj major jt/bursa w/o us DRAIN/INJECT LARGE JOINT/BURSA Procedures Routine Chronic pain of right knee Ordered: 12/20/2021 [facility] Work Phone: Comment on above: Ordered: 12/20/2021 MR Lower Extremity [facility] End: 06-22-2023 MRI KNEE WO IVCON RT MRI KNEE WO IVCON RT Radiology Routine Chronic pain of right knee 1 Occurrences starting 05/23/2022 until 06/22/2023 [facility] Work Phone: Comment on above: 1 Occurrences starting 05/23/2022 until 06/22/2023 End: 06-23-2022 MRI KNEE WO IVCON RT [facility] Work Phone: Comment on above: 1 Occurrences starting 06/23/2022 until 06/23/2022 End: 11-16-2023 MRI SHOULDER WO IVCON RIGHT MRI SHOULDER WO IVCON RIGH T Radiology Routine Right shoulder pain, unspecified chronicity 1 Occurrences starting 10/17/2022 until 11/16/2023 [facility] Work Phone: Comment on above: 1 Occurrences starting 10/17/2022 until 11/16/2023 End: 11-05-2022 MRI SHOULDER WO IVCON RIGHT [facility] Work Phone: Comment on above: 1 Occurrences starting 11/05/2022 until 11/05/2022 Patient referral [facility] Work Phone: XR Elbow - right AP and Lateral XR ELBOW GENERAL 2V AP/LAT RIGHT Radiology Routine Pain in right elbow 12/04/2023 10:27 AM EDT [facility] Work Phone: End: 03-24-2025 XR Knee - right 4 Views XR KNEE GENERAL 4V AP BOTH/PA BOTH/LAT/MERC RIGHT Radiology Routine Arthropathies in other specified diseases classified elsewhere, right knee 1 Occurrences starting 02/23/2024 until 03/24/2025 [facility] Work Phone: Comment on above: 1 Occurrences starting 02/23/2024 until 03/24/2025 End: 05-21-2023 XR KNEE GENERAL 4V AP BOTH/PA BOTH/LAT/MERC RIGHT XR KNEE GENERAL 4V AP BOTH/PA BOTH/LAT/MERC RIGHT Radiology Routine Chronic pain syndrome [G89.4 (ICD-10-CM)] 1 Occurrences starting 04/21/2022 until 05/21/2023 [facility] Work Phone: Comment on above: 1 Occurrences starting 04/21/2022 until 05/21/2023 XR Lumbar spine AP a nd Lateral XR LUMBAR LIMITED 2V AP/LAT Radiology Routine Chronic pain syndrome 12/04/2023 10:27 AM EDT [facility] Work Phone: End: 01-01-2025 XR Ribs - left 2 Views XR RIBS 2V AP/OBL LEFT Radiology Routine Chronic pain syndrome 1 Occurrences starting 12/03/2023 until 01/01/2025 [facility] Comment on above: 1 Occurrences starting 12/03/2023 until 01/01/2025 XR Ribs - left 2 Views XR RIBS 2 V AP/OBL LEFT Radiology Routine Chronic pain syndrome 12/04/2023 10:27 AM EDT [facility] End: 09-14-2023 XR SHOULDER GENERAL 3V OR MORE AP/TRUE AP/OTHER RIGHT XR SHOULDER GENERAL 3V OR MORE AP/TRUE AP/OTHER RIGHT Radiology Routine Chronic right shoulder pain 1 Occurrences starting 08/15/2022 until 09/14/2023 [facility] Work Phone: Comment on above: 1 Occurrences starting 08/15/2022 until 09/14/2023 XR Thoracic spine AP and Lateral XR THORACIC LIMITED 2V AP/LAT Radiology Routine Chronic pain syndrome 12/04/2023 10:27 AM EDT [facility] Immunizations Immunization Date Immunization Notes Care Provider Fa cilidavid 07-08-2019 hepatitis A vaccine, adult dosage SHAAN 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 MEDICAID ODM [id number] 2019 Private Health Insurance [id number] .[id number]. [id number] 2018 Medicaid [id number] 1.13.159.2. [id number] 2016 Private Health Insurance [id number] 2015 Medicaid [id number]. [id number] 2015 Medicaid [id number] 1977 Unknown [id number] 2.16.840.1.683313.3.579.2. 732 1977 Unknown [id number] 2.16.840.1.315589.3.579.2. 479 1977 Unknown [id number] 2.16.840.1.647099.3.579.2. 479 1977 Unknown [id number] 2.16.840.1.627633.3.579.2. 627 1977 Unknown [id number] 2.16.840.1.141297.3.579.2. 627 1977 Unknown [id number] 2.16.840.1.850235.3.579.2. 627 1977 Unknown [id number] 2.16.840.1.729429.3.579.2. 627 1977 Unknown [id number] 2.16.840.1.057489.3.579.2. 627 1977 Unknown [id number] 2.16.840.1.507883.3.579.2. 627 1977 Unknown [id number] 2.16.840.1.056188.3.579.2. 627 1977 Unknown [id number] 2.16.840.1.112639.3.579.2. 627 1977 Unknown [id number] 2.16.840.1.721035.3.579.2. 627 1977 Unknown [id number] 2.16.840.1.148140.3.579.2. 627 1977 Unknown [id number] 2.16.840.1.714521.3.579.2. 627 Unknown [facility] Unknown [id number] 2..840.1.289000.3.579.2. 462 Unknown [id number] 2.16.840.1.637957.3.579.2. 462 Unknown [id number] 2.16.840.1.553616.3.579.2. 462 Unknown [id number] 2.840.1.761057.3.579.2. 462 Unknown [id number] 2.840.1.365170.3.579.2. 462 Unknown [id number] 2.840.1.922334.3.579.2. 462 Unknown [id number] 2.840.1.416996.3.579.2. 462 Unknown [id number] 2.840.1.428419.3.579.2. 462 Unknown [id number] 2.840.1.949354.3.579.2. 462 Unknown [id number] 2.840.1.422072.3.579.2. 462 Unknown [id number] 2.840.1.449415.3.579.2. 462 Unknown [id number] 2.840.1.913508.3.579.2. 462 Unknown [id number] 2.840.1.033682.3.579.2. 462 Unknown [id number] 2.840.1.069235.3.579.2. 462 Unknown [id number] 2.840.1.477665.3.579.2. 462 Unknown [id number] 2.16.840.1.737700.3.579.2. 462 Unknown [id number] 2.16.840.1.049220.3.579.2. 462 Unknown [id number] 2.840.1.566994.3.579.2. 462 Unknown [id number] 2.16.840.1.272644.3.579.2. 462 Unknown [id number] 2.16.840.1.163887.3.579.2. 462 Unknown [id number] 2.16.840.1.719177.3.579.2. 462 Unknown [id number] 2.16.840.1.177559.3.579.2. 462 Unknown [id number] 2.16.840.1.616795.3.579.2. 462 Unknown [id number] 2.16.840.1.830828.3.579.2. 462 Social History Date Type Detail Facility Start: 09-02-2022 End: 10-17-2022 Former cigarette smoker Former cigarette smoker [facility] Work Phone: Comment on above: USE TO DRINK 12 OR M ORE DRINKS A DAY, BEER AND WHISKY (QUIT IN 2015); Start: 11-22-2018 End: 04-21-2022 Never smoked tobacco (finding) [facility] Start: 1975 Sex Assigned At Male A [facility] Start: 08-07-2021 End: 12-03-2024 Alcohol intake Current drinker of alcohol (finding) [facility] Start: 09-27-2015 History SDOH Alcohol Comment weekly [facility] Start: 1975 Sex Assigned At Not on file C [facility] Start: 07-28-2021 End: 04-21-2022 Exposure to SARS-CoV-2 (event) Not sure [facility] Start: 09-18-2020 [facility] if ever smoked [facility] Work Phone: Start: 09-18-2020 Non-smoker [facility] Start: 10-19-2017 End: 04-21-2022 Tobacco use and exposure Smokeless tobacco non-user [facility] Start: 04-21-2022 End: 05-23-2022 Alcohol intake Ex-drinker (finding) [facility] Start: 09-02-2022 End: 10-17-2022 Tobacco use panel [facility] Start: 04-18-2012 Adolescent depressio n screening assessment 0 [facility] Start: 09-02-2022 Alcohol Comment sober for 10 years [facility] Start: 05-31-2023 Alcohol Comment OCCASIONAL [facility] Has the [employer], [employer], [employer], or water company threatened to shut off services in your home in past 12Mo No [facility] (I/We) worried wheth er (my/our) food would run out before (I/we) got money to buy more. Never true [facility] Start: 11-10-2018 End: 12-16-2021 Sex Male (finding) [employer] Sexual Orientation [employer] Start: 10-03-2024 Tobacco smoking [facility] Ex-smoker (finding) [facility] NEGATED: Highlighted rowStart: NINF History of tobacco use Passive smoker [facility] Medical Equipment Procedure Code Equipment Code Equipment Origin al Text Equipment Identifier Dates FESS (functional endoscopic sinus surgery) GABE 3GRM HEMOSTAT ABS FDA Start: 09-25-2020 FESS (functional endoscopic sinus surgery) GABE 3GRM HEMOSTAT ABS FDA Start: 09-25-2020 FESS (functional endoscopic sinus surgery) GABE 3GRM HEMOSTAT ABS FDA Start: 09-25-2020 FESS (functional endoscopic sinus surgery) GABE 3GRM HEMOSTAT ABS FDA Start: 09-25-2020 FESS (functional endoscopic sinus surgery) GABE 3GRM HEMOSTAT ABS FDA Start: 09-25-2020 FESS (functional endoscopic sinus surgery) GABE 3GRM HEMOSTAT ABS FDA Start: 09-25-2020 FESS (functional endoscopic sinus surgery) GABE 3GRM HEMOSTAT ABS FDA Start: 09-25-2020 FESS (functional endoscopic sinus surgery) GABE 3GRM HEMOSTAT ABS FDA Start: 09-25-2020 FESS (functional endoscopic sinus surgery) GABE 3GRM HEMOSTAT ABS FDA Start: 09-25-2020 FESS (functional endoscopic sinus surgery) GABE 3GRM HEMOSTAT ABS FDA Start: 09-25-2020 SWIVELOCK,4.75 DOUBLE LOCK FDA Start: 04-25-2019 Anchr Sut 4.75mm 2 [facility] - [id number] Start: 01-09-2023 SWIVELOCK,4.75 DOUBLE LOCK FDA Start: 04-25-2019 SWIVELOCK,4.75 DOUBLE LOCK FDA Start: 04-25-2019 SWIVELOCK,4.75 DOUBLE LOCK FDA Start: 04-25-2019 SWIVELOCK,4.75 DOUBLE LOCK FDA Start: 04-25-2019 SWIVELOCK,4.75 DOUBLE LOCK FDA Start: 04-25-2019 SWIVELOCK,4.75 DOUBLE LOCK FDA Start: 04-25-2019 SWIVELOCK,4.75 DOUBLE LOCK FDA Start: 04-25-2019 SWIVELOCK,4.75 DOUBLE LOCK FDA Start: 04-25-2019 SWIVELOCK,4.75 DOUBLE LOCK FDA Start: 04-25-2019 Functional Status Date Assessment Result Facility 09-13-2023 Are you deaf, or do you have serious difficulty hearing No 09/13/2023 3:04 PM Candida Hi RN No [facility] 09-13-2023 Are you blind, or do you have serious difficulty seeing, even when wearing glasses No 09/13/2023 3:04 PM Candida Hi RN No [facility] 09-13-2023 Do you have serious difficulty walking or climbing stairs No 09/13/2023 3:04 PM Candida Hi RN No [facility] 09-13-2023 Do you have difficul ty dressing or bathing No 09/13/2023 3:04 PM Candida Hi RN No [facility] 09-13-2023 Because of a physica l, mental, or emotional condition, do you have difficulty doing errands alone such as visiting a physician's office or shopping No 09/13/2023 3:04 PM Candida Hi RN No [facility] Mental Status Date Assessment Result Facility 09-13-2023 Because of a physica l, mental, or emotional condition, do you have serious difficulty concentrating, remembering, or making decisions No 09/13/2023 3:04 PM Candida Hi RN No [facility] Clinical Notes 10-20-2017 to 02-09-2025 Note Date & Type Note Facility 02-09-2025 Progress note [facility] 12-05-2024 Progress note [facility] 12-05-2024 Progress note Note Date/Time December 05, 2024 10:49am [facility] [address] [place] [address] [address] [place] [address] OFFICE VISIT Date of Service: 12/05/24 MR#: [id number] Acct: [id number] Name: TATE BALTAZAR Rep #: [id number] : 1975 Provider: Dr. Raudel Huber MD Age/Sex: 49/M Location: [facility] Status: Signed Intake Vital Signs 10/25/24 10:33 Height 6 ft Intake Visit Reasons: RIGHT KNEE Chief Complaint: Right Knee ER Follow-Up Accompanied by: Is patient in pain?: Yes Pain scale (1-10): 7 Allergies fentanyl Adverse Reaction (Verified 12/05/24 10:05) Other hydrocodone (From Vicodin) Adverse Reaction (Verified 12/05/24 10:04) Other Medications ?Medication ?Instructions ?Recorded ?Confirmed ?Type pantoprazole 40 mg tablet,delayed 40 mg PO DAILY 09/1812/05/24 History release tizanidine 4 mg capsule 8 mg PO QHS 09/18/20 5 History bupropion HCl 300 mg 24 hr tablet, 300 mg PO QDAY 02/1512/05/24 History extended release cyclobenzaprine 5 mg tablet 5 mg PO TID PRN 02/29/24 0 12/05/24 History duloxetine 60 mg capsule,delayed 60 mg PO QDAY 4 12/05/24 History release fexofenadine 180 mg tablet 180 mg PO QDAY 02/29/24 History gabapentin 100 mg tablet 600 mg PO TID 02/29/2412/05 History mirabegron 25 mg tablet,extended 25 mg PO QDAY 4 12/05/24 History release 24 hr (Myrbetriq) potassium chloride 20 mEq 40 meq PO DAILY 02/29/24 History tablet,extended release potassium chloride 20 mEq 20 meq PO BID 02/29/2412/05 History tablet,extended release(part/cryst) rimegepant 75 mg disintegrating 75 mg PO QDAY PRN 02/1512/05/24 History tablet (Nurtec ODT) sucralfate 1 gram tablet 1 g PO 4X/DAY 02/29/2412/05 History tamsulosin 0.4 mg capsule 0.4 mg PO QDAY 02/29/2411/16 History valsartan 160 mg tablet 160 mg PO QDAY 02/29/2411/16 History verapamil 120 mg tablet,extended 240 mg PO QHS 12/05/24 History release zonisamide 50 mg capsule 50 mg PO QHS 02/29/24 History PFSH Medical History Right rotator cuff tear Primary osteoarthritis, right shoulder Right shoulder pain Osteoarthritis of right knee Right knee pain Loose, teeth Hearing loss, right Alcohol abuse Mood disorder History of steroid therapy Chronic pain History of IBS GERD (gastroesophageal reflux disease) Hiatal hernia Non-smoker CPAP (continuous positive airway pressure) dependence Pain aggravated by walking Edema Irregular heart beat Hypertension Migraine headache Restless legs Injury of back Stroke/cerebrovascular accident Surgical History S/P rotator cuff repair Hx of cardiac catheterization Hx of colonoscopy History of esophagogastroduodenoscopy (EGD) Hx of vasectomy Hx of arthroscopic knee surgery Hx of tonsillectomy Hx of appendectomy Hx of shoulder surgery Social History household members: spouse and family Smoking Status: Former smoker alcohol intake: current alcohol intake frequency: holidays/special occasions only HPI RIGHT KNEE Details: This documentation accurately reflects the service provided and the decisions made by me, Dr. Fred Huber MD 12/05/24 0840. Part of today?s visit was documented by [ ], acting as scribe. TATE BALTAZAR is a 49 year old M here today for FU R knee. Was in ED over weekend. This was in [facility] in [place]. He was just getting off the couch felt a pop and some pain anteriorly in the knee. There is some mild swelling difficulty ambulating. was given a dose of Percocet in the emergency department as well as crutches and a knee immobilizer asked to follow-up with myself. He is well 1 month out from last knee Euflexxa injection for mild patellofemoral osteoarthritis. The records state that there is x-rays of the knee showing trace knee joint fluid no fracture or malalignment also on x-ray ofthe pelvis no acute fracture or malalignment no notes from the date of the visitjust the x-ray reports Supplemental Info [facility] Imaging Services [address] [place], [place] [id number] Lower Ext Joint Only (Routine) MR#: [id number] Acct: [id number] Name: TATE BALTAZAR Rep #: [id number] : 1975 M 49 From: Mateo Canada DO PCP: Dr. Lanette Harkins, DO Status: REG CLI Study: Lower Ext Joint Only (Routine) Date of Exam: 03/19/24 Exam# [id number] Ordering Dr: Fred Huber MD EXAM: MR RIGHT LOWER EXTREMITY WITHOUT INTRAVENOUS CONTRAST, KNEE CLINICAL INDICATION: pain TECHNIQUE: Multiplanar and multisequence MR images of the right knee without intravenous contrast. COMPARISON: Right knee radiographs, 02/29/2024. FINDINGS: BONES/JOINTS: Shallow trochlea indicating trochlear dysplasia. No bone marrow signal abnormality is otherwise identified. No fracture or dislocation. EXTENSOR MECHANISM: No significant abnormality. MEDIAL MENISCUS: No significant abnormality. LATERAL MENISCUS: No significant abnormality. MEDIAL CAPSULE/SUPPORTING STRUCTURES: No significant abnormality. Intact. LATERAL CAPSULE/SUPPORTING STRUCTURES: No significant abnormality. Lateral collateral ligamentous complex, inclusive of the popliteal tendon, are intact. ANTERIOR CRUCIATE LIGAMENT: No significant abnormality. Intact. POSTERIOR CRUCIATE LIGAMENT: No significant abnormality. Intact. MUSCLES: No significant abnormality. CARTILAGE: Near full-thickness chondral fissuring in the lateral retropatellar articular facet with diffuse chondral signal abnormality and subchondral edema. FLUID: No significant abnormality. No joint effusion. OTHER SOFT TISSUES: No significant abnormality. No popliteal cyst. 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 Electronically Signed: Mateo Canada DO at 13:58 EST , xr 4 view R knee - nil acute. trace effusion. mild PF OA. patella in groove centered. Coding Level of Care Code Off vis,est,level 4 Diagnoses Osteoarthritis of right knee M17.11 Assessment and Plan Assessment and Plan (1) Osteoarthritis of right knee: Status: Acute Plan: 49-year-old man with acute right knee pain after getting up from the couch. This could be an exacerbation of pre-existing mild patellar chondromalacia or meniscus tear or strain to the knee, or mild PF instability. With the low-energy mechanism favor more so an exacerbation or strain pattern. It has only been 2 days. I recommend continued watchful waiting and a period of relative rest followed by gentle range of motion discontinue the crutches as able discontinue the knee immobilizer and follow-up in 2 to 3 weeks time if this is no better or worse next step would be to consider an MRI, PT or injections. Patient understands no further questions or concerns. Orders: Orders Knee 4 or More Views Today M17.11 - Unilateral primary osteoarthritis, right knee Ortho Exam General General: Yes no acute distress Neurologic: Yes alert and Yes oriented x3 Psychologic: Yes reasonable and appropriate Right Knee Skin/Wound: Yes CDI, No erythema, No ecchymosis and No swelling Examination: No Med jt line tenderness, Yes Lat jt line tenderness, Yes TTP inf pole patella, No Crepitus, Yes Pain with flexion and Yes TTP Patellar tendon Quad Atrophy: No Stability: NML: Anterior Drawer, NML: Elana, NML: Posterior Drawer, NML: Valgus 0, NML: Valgus 30, NML: Varus 0 and NML: Varus 30 Patella Translation: 1 Patellar Tilt Normal: Yes KNEE: ++ guarding, rom 0-20, able to SLR, no evidence quads or pat tendon rupture. Left Knee Patella Translation: 1 12/05/24 1049 <Electronically signed by Fred cuellar MD> Date _ Fred Huber MD Cosigner Signature: Date (if applicable) CC: ~ [employer] Work Phone: [phone]) 707-199907-18-2025 History of Present illness Narrative* Puneet Mcbride MD - 12/02/2024 11:45 AM EDT PROCEDURE: IV Lidocaine infusion Therapy DATE OF SERVICE: November 30, 2024 PREPROCEDURE DIAGNOSES: Chronic pain syndrome Chronic pain syndrome (primary encounter diagnosis) Chronic right shoulder pain Contusion of right hip region ANESTHESIA: IV Lidocaine, Versed COMPLICATIONS: None CONSENT: The risks and benefits of Lidocaine infusion therapy were discussed with the patient. The patient verbalizes understanding and wishes to proceed with the infusion therapy at this time for control of intractable pain. Informed consent was thereby obtained. DESCRIPTION OF PROCEDURE: After written informed consent was obtained as above, the patient was taken to the operating room. Standard ASA monitors were applied. O2 was applied as well.The patient received 2 mg of IV Versed by the prior to initiation of the Lidocaine infusion. The initial verbal analogue scale at the beginning of the infusion was 8 on a scale from 0 to 10. The patient's pain scale was monitored for the next 15-minute increments. VS were monitored throughout. A total of 112 mg ofLidocaine was administered over 5 minutes followed by a total of 224 milligrams of lidocaine over the next 1 hour The patient was monitored very closely during the entire infusion procedure today. The patient's vital signs remained stable throughout the postoperative period. They were given written instructions to follow up at [facility] Pain Dept[facility] in the next 4 to 6 weeks for further plan of care and overall evaluation. COMMENTS: Patient tolerated the infusion without any complications. * Edelmira Perera RN - 11/30/2024 4:12 PM EDTSummary: post infusion note Infusion complete. 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 Pt reports that his pain is 5/10. Edelmira Perera RN November 30, 2024 4:13 PM * Edelmira Perera RN - 11/30/2024 1:40 PM EDTSummary: pre infusion note Pt here for repeat lidocaine infusion. Pt reports 25% improvement with last infusion x 1 week. Pts father here for transport home. Pt has been NPO x 6 hours Pt reports that he had a red spot on his scrotum that was draining puss a week ago. He is currentlyon ATB and has 1 day left. Pt reports that the spot is improving, not red, not draining. 98.[address] Mcbride notified, he advised it is okay to proceed with procedure. Edelmira Perera RN documented [facility] NoteHNO ID: [id number] Author: PUNEET MCBRIDE MD Service: ? Author Type: Anesthesiologist Type: Progress Notes Filed: 12/02/2024 11:47 Note Text: PROCEDURE: IV Lidocaine infusion Therapy DATE OF SERVICE: November 30, 2024 PREPROCEDURE DIAGNOSES: Chronic pain syndrome Chronic pain syndrome (primary encounter diagnosis) Chronic right shoulder pain Contusion of right hip region ANESTHESIA: IV Lidocaine, Versed COMPLICATIONS: None CONSENT: The risks and benefits of Lidocaine infusion therapy were discussed with the patient. The patient verbalizes understanding and wishes to proceed with the infusion therapy at this time for control of intractable pain. Informed consent was thereby obtained. DESCRIPTION OF PROCEDURE: After written informed consent was obtained as above, the patient was taken to the operating room. Standard ASA monitors were applied. O2 was applied as well.The patient received 2 mg of IV Versed by the prior to initiation of the Lidocaine infusion. The initial verbal analogue scale at the beginning of the infusion was 8 on a scale from 0 to 10. The patient's pain scale was monitored for the next 15-minute increments. VS were monitored throughout. A total of 112 mg ofLidocaine was administered over 5 minutes followed by a total of 224 milligrams of lidocaine over the next 1 hour The patient was monitored very closely during the entire infusion procedure today. The patient's vital signs remained stable throughout the postoperative period. They were given written instructions to follow up at [facility] Pain Dept[facility] in the next 4 to 6 weeks for further plan of care and overall evaluation. COMMENTS: Patient tolerated the infusion without any complications.[facility]07-16-2025 NoteHNO ID: [id number] Author: EDELMIRA PERERA RN Service: ? Author Type: Registered Nurse Type: Progress Notes Filed: 11/30/2024 16:13 Note Text: Summary: post infusion note Infusion complete. 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 Pt reports that his pain is 5/10. Edelmira Perera RN November 30, 2024 4:13 [facility]07-16-2025 NoteHNO ID: [id number] Author: EDELMIRA PERERA RN Service: ? Author Type: Registered Nurse Type: Progress Notes Filed: 12/01/2024 08:02 Note Text: Summary: pre infusion note Pt here for repeat lidocaine infusion. Pt reports 25% improvement with last infusion x 1 week. Pts father here for transport home. Pt has been NPO x 6 hours Pt reports that he had a red spot on his scrotum that was draining puss a week ago. He is currently on ATB and has 1 day left. Pt reports that the spot is improving, not red, not draining. 98.[address] Mcbride notified, he advised it is okay to proceed with procedure. Edelmira Perera, [facility]07-07-2025 Progress [facility] [address] [place] [address] OFFICE VISIT Date of Service: 11/21/24 MR#: [id number] Acct: [id number] Name: TATE BALTAZAR Rep #: [id number] : 1975 Provider: Dr. Raudel Huber MD Age/Sex: 49/M Location: [facility] Status: Signed Intake Vital Signs 10/25/24 10:33 Height 6 ft Weight: 240 lb BMI 32.5 Intake Visit Reasons: RIGHT SHOULDER Chief Complaint: Right shoulder MRI review Is patient in pain?: Yes (Right shoulder ) Pain scale (1-10): 7 Allergies hydrocodone (From Vicodin) Adverse Reaction (Verified 11/21/24 11:39) Other Medications ?Medication ?Instructions ?Recorded ?Confirmed ?Type pantoprazole 40 mg tablet,delayed 40 mg PO DAILY 09/1811/21/24 History release tizanidine 4 mg capsule 8 mg PO QHS 09/18/20 5 History bupropion HCl 300 mg 24 hr tablet, 300 mg PO QDAY 02/1511/21/24 History extended release cyclobenzaprine 5 mg tablet 5 mg PO TID PRN 02/29/24 0 11/21/24 History duloxetine 60 mg capsule,delayed 60 mg PO QDAY 4 11/21/24 History release fexofenadine 180 mg tablet 180 mg PO QDAY 02/29/2412/09 History gabapentin 100 mg tablet 600 mg PO TID 02/29/2411/21 History mirabegron 25 mg tablet,extended 25 mg PO QDAY 11/21/24 History release 24 hr (Myrbetriq) potassium chloride 20 mEq 40 meq PO DAILY 02/29/2412/09 History tablet,extended release potassium chloride 20 mEq 20 meq PO BID 02/29/2411/21 History tablet,extended release(part/cryst) rimegepant 75 mg disintegrating 75 mg PO QDAY PRN 02/1511/21/24 History tablet (Nurtec ODT) sucralfate 1 gram tablet 1 g PO 4X/DAY 02/29/2411/21 History tamsulosin 0.4 mg capsule 0.4 mg PO QDAY 02/29/2412/09 History valsartan 160 mg tablet 160 mg PO QDAY 02/29/2412/09 History verapamil 120 mg tablet,extended 240 mg PO QHS 4 11/21/24 History release zonisamide 50 mg capsule 50 mg PO QHS 02/29/24 History PFSH Medical History Right rotator cuff tear Primary osteoarthritis, right shoulder Right shoulder pain Osteoarthritis of right knee Right knee pain Loose, teeth Hearing loss, right Alcohol abuse Mood disorder History of steroid therapy Chronic pain History of IBS GERD (gastroesophageal reflux disease) Hiatal hernia Non-smoker CPAP (continuous positive airway pressure) dependence Pain aggravated by walking Edema Irregular heart beat Hypertension Migraine headache Restless legs Injury of back Stroke/cerebrovascular accident Surgical History S/P rotator cuff repair Hx of cardiac catheterization Hx of colonoscopy History of esophagogastroduodenoscopy (EGD) Hx of vasectomy Hx of arthroscopic knee surgery Hx of tonsillectomy Hx of appendectomy Hx of shoulder surgery Social History household members: spouse and family Smoking Status: Former smoker alcohol intake: current alcohol intake frequency: holidays/special occasions only HPI RIGHT SHOULDER Details: This documentation accurately reflects the service provided and the decisions made by me, Dr. Manfred MD 11/21/24 1047. Part of today?s visit was documented by [ ], acting as scribe. TATE BALTAZAR is a 49 year old M here today for FU R shoulder MRI. Has had prior injections and PTrecently. Still hurts. worse with lifting or draining the car old to take the plug out. Patient hadprior rotator cuff surgery about 3 years ago now. As well as a procedure on the biceps is unsure exactly when that was. Supplemental Info [facility] Imaging Services [facility] [place], [place] [address] Upper Ext Joint Only(Routine) MR#: [id number] Acct: [id number] Name: TATE BALTAZAR Rep #: [id number] : 1975 M 49 From: Omega Russo MD PCP: Dr. Lanette Harkins, Status: REG CLI Study: Upper Ext Joint Only(Routine) Date of Exam: 11/15/24 Exam# [id number] Ordering Dr: Fred Huber MD PROCEDURE: UPPER EXT JOINT ONLY(ROUTINE) 11/15/2024 REASON FOR EXAM: PAIN, 2 PRIOR SURGERIES TECHNIQUE: T1, T2, PD, UPPER EXT JOINT ONLY(ROUTINE) Multiplanar and multisequence images were obtained without IV contrast administration. COMPARISON: October 25, 2024 x-ray FINDINGS: Bone Marrow: Suture anchors are noted in the humeral head consistent with prior rotator cuff repair. There is no bony contusion or occult fracture. AC joint: There is moderate AC joint hypertrophy without evidence of separation. There is a type 3 acromion with impingement configuration. Rotator cuff: There is no muscular atrophy. There is a full-thickness, 50% withtear of the distal supraspinatus without retraction. There is severe distal infraspinatus tendinopathy without full- thickness tear. There issevere distal subscapularis tendinopathy without full-thickness tear or retraction. The teres minor appearsintact. Labrum: There is a tear of the labrum from the 12 o'clock-2 o'clock position extending into the biceps tendon anchor. Biceps: The biceps tendon is absent from the biceps tendon groove with avulsion. Effusion: There is a trace joint effusion which extends into the subacromial subdeltoid bursa. MRI/Upper Ext Joint Only(Routine) IMPRESSION: Suture anchors are noted in the humeral head consistent with prior rotator cuff repair. There is moderate AC joint hypertrophy without evidence of separation. There is a type 3 acromion with impingement configuration. There is a full-thickness, 50% with tear of the distal supraspinatus without retraction. There is severe distal infraspinatus tendinopathy without full-thickness tear. There is severe distal subscapularis tendinopathy without full-thickness tear orretraction. There is a tear of the labrum from the 12 o'clock-2 o'clock position extending into the biceps tendon anchor. The biceps tendon is absent from the biceps tendon groove with avulsion. There is a trace joint effusion which extends into the subacromial subdeltoid bursa. Reading Location: [facility] independently reviewed the imaging. Concur with radiologist report. Coding Level of Care Code Off vis,est,level 4 Diagnoses Primary osteoarthritis, right shoulder M19.011 Right shoulder pain M25.511 Right rotator cuff tear M75.101 S/P rotator cuff repair Z98.890 Assessment and Plan Assessment and Plan (1) Primary osteoarthritis, right shoulder: Status: Acute Plan: 49-year-old man with a small leading edge supraspinatus tendon tear in the setting of 2 prior shoulder arthroscopies including rotator cuff repair and an absent long head of the biceps. Discussed thepros and cons risks benefits of conservative treatment he is already had physical therapy and injections versus surgical intervention here. In the form of the right shoulder arthroscopy, subacromial decompression, rotator cuff repair, allograft patch augmentation. [place] submit for approval of the Arthrex cuff mend patch to his second time revision and re-tear. This can help but increase the ratesof healing need for further procedures. Patient understands signed consent form for surgery no furth er questions or concerns. He does have a history of right-sided weakness in the past as history of a stroke this can increase his risk of complications. Pros and cons risks and benefits were discussed with the patient including but not limited to infection, pain, stiffness, bleeding, damage to surrounding structures, neurovascular injury, recurrence or retear, failure or wear of hardware or fixation, instability, fracture, deep vein thrombosis and pulmonary embolism, anesthetic risks, , patient dissatisfaction, need for further surgery and other risks. Patient understood and wished to proceed with surgery,and signed the informed consent documentation. (2) Right shoulder pain: Status: Acute (3) Right rotator cuff tear: Status: Acute (4) S/P rotator cuff repair: Status: Acute Ortho Exam General General: Yes no acute distress Neurologic: Yes alert and Yes oriented x3 Psychologic: Yes reasonable and appropriate Right Shoulder Skin/Wound: Yes CDI, No ecchymosis, No erythema and No swelling Testing: Positive Hawkin's, Neer's, TTP Biceps, AROM-External Rotation at side 0-60, empty can and belly press normal; Negative Speed's, TTP AC Joint, Drop Arm, cross arm or scapular winging SHOULDER: normal motor and sens to ax nerve, and MRU and AIN/PIN Active and passive forward elevation 170 degrees forward elevation strength is 4+. External rotation strength 5. No crepitus 11/21/24 1158 n MD> Date _ Fred Valdovinos Signature: Date (if applicable) CC: ~ [facility]06-30-2025 Note. MICRO - Microbiology PROCEDURE: Culture Wound Aerobic with Gram Stain [*1] SOURCE: Drainage BODY SITE: Scrotum COLLECTED DATE/TIME: 11/10/2024 13:07 EDT RECEIVED DATE/TIME: 11/11/2024 15:17 EDT START DATE/TIME: 11/11/2024 15:18 EDT FREE TEXT SOURCE: FINAL REPORTS Final Report [] Verified Date/Time/Personnel: 11/14/2024 07:32 EDT Few normal skin yloanda present. Sensitivity testing not indicated. Neisseria gonorrhoeae: Negative PRELIMINARY REPORTS Preliminary Report [] Verified Date/Time/Personnel: 11/13/2024 07:38 EDT Few normal skin yolanda present. Sensitivity testing not indicated. Neisseria gonorrhoeae: Pending Preliminary Report [] Verified Date/Time/Personnel: 11/12/2024 10:15 EDT Culture results pending. STAINS GS [] Verified Date/Time/Personnel: 11/11/2024 21:58 EDT No organisms seen. Performing Locations *1: This test was performed at: [address], [facility] , [facility]06-20-2025 NoteHNO ID: [id number] Author: PUNEET MCBRIDE MD Service: ? Author Type: Anesthesiologist Type: Progress Notes Filed: 11/04/2024 07:55 Note Text: PROCEDURE: IV Lidocaine infusion Therapy DATE OF SERVICE: November 02, 2024 PREPROCEDURE DIAGNOSES: Chronic pain syndrome Chronic pain syndrome (primary encounter diagnosis) Chronic right shoulder pain Contusion of right hip region ANESTHESIA: IV Lidocaine, Versed COMPLICATIONS: None CONSENT: The risks and benefits of Lidocaine infusion therapy were discussed with the patient. The patient verbalizes understanding and wishes to proceed with the infusion therapy at this time for control of intractable pain. Informed consent was thereby obtained. DESCRIPTION OF PROCEDURE: After written informed consent was obtained as above, the patient was taken to the operating room. Standard ASA monitors were applied. O2 was applied as well.The patient received 2 mg of IV Versed by the prior to initiation of the Lidocaine infusion. The initial verbal analogue scale at the beginning of the infusion was 8 on a scale from 0 to 10. The patient's pain scale was monitored for the next 15-minute increments. VS were monitored throughout. A total of 116 mg ofLidocaine was administered over 5 minutes followed by a total of 232 milligrams of lidocaine over the next 1 hour The patient was monitored very closely during the entire infusion procedure today. The patient's vital signs remained stable throughout the postoperative period. They were given written instructions to follow up at [facility] Pain Dept[facility] in the next 4 to 6 weeks for further plan of care and overall evaluation. COMMENTS: Patient tolerated the infusion without any complications.[facility]06-20-2025 History of Present illness Narrative* Puneet Mcbride MD - 11/04/2024 7:55 AM EDT PROCEDURE: IV Lidocaine infusion Therapy DATE OF SERVICE: November 02, 2024 PREPROCEDURE DIAGNOSES: Chronic pain syndrome Chronic pain syndrome (primary encounter diagnosis) Chronic right shoulder pain Contusion of right hip region ANESTHESIA: IV Lidocaine, Versed COMPLICATIONS: None CONSENT: The risks and benefits of Lidocaine infusion therapy were discussed with the patient. The patient verbalizes understanding and wishes to proceed with the infusion therapy at this time for control of intractable pain. Informed consent was thereby obtained. DESCRIPTION OF PROCEDURE: After written informed consent was obtained as above, the patient was taken to the operating room. Standard ASA monitors were applied. O2 was applied as well.The patient received 2 mg of IV Versed by the prior to initiation of the Lidocaine infusion. The initial verbal analogue scale at the beginning of the infusion was 8 on a scale from 0 to 10. The patient's pain scale was monitored for the next 15-minute increments. VS were monitored throughout. A total of 116 mg ofLidocaine was administered over 5 minutes followed by a total of 232 milligrams of lidocaine over the next 1 hour The patient was monitored very closely during the entire infusion procedure today. The patient's vital signs remained stable throughout the postoperative period. They were given written instructions to follow up at [facility] Dept[facility] in the next 4 to 6 weeks for further plan of care and overall evaluation. COMMENTS: Patient tolerated the infusion without any complications. * Edelmira Perera RN - 11/02/2024 3:59 PM EDT Lidocaine infusion complete. Pt reports pain 11/24. 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 Edelmira Perera RN * Edelmira Perera RN - 11/02/2024 1:33 PM EDT Pt here today for first Lidocaine. Pt reports pain 8/10. Pt NPO x 6 hours. Pt Robbi magallanes, available on discharge for ride home. Edelmira Perera RN documented in this [facility]06-[facility]-2025 NoteHNO ID: [id number] Author: EDELMIRA PERERA RN Service: ? Author Type: Registered Nurse Type: Progress Notes Filed: 11/04/2024 07:55 Note Text: Lidocaine infusion complete. Pt reports pain 7/10. 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 [facility]rera [facility]25 NoteHNO ID: [id number] Author: EDELMIRA PERERA RN Service: ? Author Type: Registered Nurse Type: Progress Notes Filed: 11/04/2024 07:55 Note Text: Pt here today for first Lidocaine. Pt reports pain 8/10. Pt NPO x 6 hours. Pt Robbi magallanes, available on discharge for ride home. Edelimra Perera [facility]06-04-2025 Evaluation note* Diagnosis Onset Date Resolution Status Admit Date Osteoarthritis of right knee acute October 19, 2024 10:56am Right knee pain acute October 19, 2024 10:56am Primary osteoarthritis, righ t shoulder acute October 25, 2024 10:32am Right shoulder pain acute October 25, 2024 10:32am Osteoarthritis of right knee acute October 27, 2024 10:19am Right knee pain acute October 10:19am Primary osteoarthritis, righ t shoulder acute November 21, 2024 1 1:23am Right rotator cuff tear acute J [facility] 2024 11:23am Right shoulder pain acute November 21, 2024 11:23am S/P rotator cuff repair acute J [facility] 2024 11:23am Osteoarthritis of right knee acute December 05, 2024 9:58am Right rotator cuff tear acute S [facility] 2024 9:54am S/P rotator cuff repair acute S [facility] 2024 9:54am [facility] Work Phone: 1(254) 395-608506-04-2025 Progress [facility] [address] [place] [address] [place] [id number] OFFICE VISIT Date of Service: 10/19/24 MR#: [id number] Acct: [id number] Name: TATE BALTAZAR Rep #: [id number] : 1975 Provider: Dr. Raudel Huber MD Age/Sex: 49/M Location: [facility] Status: Signed Intake Vital Signs 09/20/24 10:55 10/06/24 11:26 10/19/24 11:08 Height 6 ft 6 ft 6 ft Weight: 240 lb 244 lb BMI 32.5 33.0 Intake Visit Reasons: RIGHT KNEE Chief Complaint: 2nd Euflexxa Right knee pain Accompanied by: Is patient in pain?: Yes Pain scale (1-10): 6 Allergies hydrocodone (From Vicodin) Adverse Reaction (Verified 10/19/24 11:14) Other Medications ?Medication ?Instructions ?Recorded ?Confirmed ?Type pantoprazole 40 mg tablet,delayed 40 mg PO DAILY 09/1810/19/24 History release tizanidine 4 mg capsule 8 mg PO QHS 09/18/20 5 History bupropion HCl 300 mg 24 hr tablet, 300 mg PO QDAY 02/1510/19/24 History extended release cyclobenzaprine 5 mg tablet 5 mg PO TID PRN 02/29/24 0 10/19/24 History duloxetine 60 mg capsule,delayed 60 mg PO QDAY 4 10/19/24 History release fexofenadine 180 mg tablet 180 mg PO QDAY 02/29/2409/09 History gabapentin 100 mg tablet 600 mg PO TID 02/29/2410/19 History mirabegron 25 mg tablet,extended 25 mg PO QDAY 4 10/19/24 History release 24 hr (Myrbetriq) potassium chloride 20 mEq 40 meq PO DAILY 02/29/2409/09 History tablet,extended release potassium chloride 20 mEq 20 meq PO BID 02/29/2410/19 History tablet,extended release(part/cryst) rimegepant 75 mg disintegrating 75 mg PO QDAY PRN 02/1510/19/24 History tablet (Nurtec ODT) sucralfate 1 gram tablet 1 g PO 4X/DAY 02/29/2410/19 History tamsulosin 0.4 mg capsule 0.4 mg PO QDAY 02/29/2409/09 History valsartan 160 mg tablet 160 mg PO QDAY 02/29/2409/09 History verapamil 120 mg tablet,extended 240 mg PO QHS 4 10/19/24 History release zonisamide 50 mg capsule 50 mg PO QHS 02/29/24 History Have you fallen in the past year?: No PFSH Medical History Right shoulder pain Osteoarthritis of right knee Right knee pain Loose, teeth Hearing loss, right Alcohol abuse Mood disorder History of steroid therapy Chronic pain History of IBS GERD (gastroesophageal reflux disease) Hiatal hernia Non-smoker CPAP (continuous positive airway pressure) dependence Pain aggravated by walking Edema Irregular heart beat Hypertension Migraine headache Restless legs Injury of back Stroke/cerebrovascular accident Surgical History Hx of cardiac catheterization Hx of colonoscopy History of esophagogastroduodenoscopy (EGD) Hx of vasectomy Hx of arthroscopic knee surgery Hx of tonsillectomy Hx of appendectomy Hx of shoulder surgery Social History household members: spouse and family Smoking Status: Former smoker alcohol intake: current alcohol intake frequency: holidays/special occasions only HPI RIGHT KNEE Details: This documentation accurately reflects the service provided and the decisions made by me, Dr. Manfred MD 10/19/24 0830. Part of today?s visit was documented by [ ], acting as scribe. TATE BALTAZAR is a 49 year old M here today for R knee OA for euflexxa injection 06/20. Office Procedures Euflexxa Procedure Details:: Obtained consent for injection. Under sterile conditions, injected the patientsRight knee with 20mlEuflexxa injection. The patient tolerated the injection well without any noted complication. Patient should call our office if redness develops, pain worsens or if they have any concerns. Is this Buy & Bill?: Yes Office Meds Euflexxa 10 mg/mL (mw 2.4-3.6 million) intra-articular syringe Performing Provider: Fred Huber MD Performing Location: [facility] Administered by: Fred Huber MD on 10/19/24 11:20 Dose Route Admin Location Dispensed Lot Number Expiration Date NDC Strap Setter 20 mg intra-articular Right knee 2 mL [id number] 04/09/25 [address]-3 [facility] [employer] Coding Level of Care Code Attention Senior Instructional Designer Diagnoses Osteoarthritis of right knee M17.11 Right knee pain M25.561 Comment euflexxa injection 2/3 R knee Assessment and Plan Assessment and Plan (1) Osteoarthritis of right knee: Status: Acute Plan: TATE BALTAZAR is a 49 year old M here today for R knee OA for euflexxa injection 2/3. FU 1 week. Right knee intra-articular Euflexxa injection We discussed the pros and cons risks and benefits of going ahead with right kneeintra-articular Euflexxa injection. The risks include but are not limited to infection, pain, acute flare reaction, stiffness, bleeding, damage to surrounding structures, worsening arthritis or damage to the cartilage. The patient wished to proceed. The anterior aspect of the knee was prepped with chlorhexidine in theusual sterile fashion. Sterile no touch technique was employed. Used Gebauer spray per bottle instructions. 2cc Euflexxa was injectedinto the intra-articular portion of the knee. The patient tolerated procedure well. Bandage placed.There is no complications. Standard post procedure care instructions were given. Red flag symptoms were discussed in which case to return to clinic immediately or go to the emergency department such as redness, swelling, fever, discharge, drainage, increase pain or other symptoms. (2) Right knee pain: Status: Acute Orders: Orders Euflexxa Injection Today Clinical Quality Measures Falls Risk Screening/Assistive Devices Have you fallen in the past year?: No Ortho Exam General General: Yes no acute distress Neurologic: Yes alert and Yes oriented x3 Psychologic: Yes reasonable and appropriate Right Knee Skin/Wound: Yes CDI, No erythema, No ecchymosis and No swelling 10/19/24 1128 n MD> Date _ Fred Huber MD Cosigner Signature: Date (if applicable) CC: ~ [facility]05-22-2025 Telephone encounter Note* Telephone Encounter - Azeb Snow - 10/06/2024 4:21 PM EDT I left a message to schedule IV Infusions on 11/02/24 1300 and 11/30 1300. Azeb Snow October 06, 2024 4:22 PM [facility]05-22-2025 Miscellaneous Notes* Telephone Encounter - Azeb Snow - 10/06/2024 4:21 PM EDT I left a message to schedule IV Infusions on 11/02/24 1300 and 11/30 1300. Azeb Snow October 06, 2024 4:22 PM documented in [facility] encounterA[facility] NoteHNO ID: [id number] Author: MARIELY ARGUETA LPN Service: ? Author Type: LICENSED NURSE Type: Progress Notes Filed: 10/06/2024 15:19 Note Text: Neck - Squeezing pain. Had concussion in May ([facility]) - took sinus meds with night meds and fell.- in hospital for a few days, now have pain from neck to head. Using a lot of tylenol. Low back - pain goes into right hip and down leg to knee, sometimes to foot. Hand - right - pain goes into arm and elbow. Foot - right - Pain goes into ankle I am ready to start drinking again because of the pain. I don't feel positive anymore. Not sure my med list is correct, my made it out for [facility]05-22-2025 NoteHNO ID: [id number] Author: LEEANN OWENS PA-C Service: ? Author Type: Physician Environmental Programs Specialist Type: Progress Notes Filed: 10/06/2024 15:19 Note Text: PATIENT: Tate Baltazar : 1975 DATE OF SERVICE: 10/06/2024 REFERRING PRACTITIONER: No ref. provider found PRIMARY CARE PROVIDER: Lanette Harkins DO CHIEF COMPLAINT: Patient presents with: Pain: Neck Foot - rt Hand- rt Back Pain: Low HISTORY OF PRESENT ILLNESS: Tate Baltazar is a 49 year old year old male who presents to the clinic today with chief complaint(s) as above. Following up for: chronic pain, low back pain, neck pain, right shoulder, right foot and knee pain Response to treatment recommendations: No significant improvement from Gabapentin and Tizanidine. Pt was seen in the ED 04/2024 for syncope episode/concussion. Fall attributed to use of concurrent use of Nyquil,Tizanidine and Gabapentin. He was instructed to not use those medications together and has spaced them out No improvement from right shoulder and knee CSI> pt is seeing ortho and started gel injection series for the right knee pain Current primary concern/description: right foot pain/ throbbing, sharp Pain Level: 10 /10 Better with: medication, reposition, rest Worse with: pain is constant Numbness/Tingling: [x] Yes [] No right side of the body Bladder/bowel fxn change: [] Yes [x] No --- Review of Systems Constitutional: Negative. HENT: Negative. Eyes: Negative. Cardiovascular: Positive for dyspnea on exertion. Respiratory: Negative. Endocrine: Negative. Skin: Negative. Musculoskeletal: Positive for arthritis, back pain, joint pain, muscle cramps, muscle weakness, myalgias, neck pain and stiffness. Gastrointestinal: Negative. Genitourinary: Negative. Neurological: Positive for headaches, loss of balance, numbness and paresthesias. Psychiatric/Behavioral: Positive for depression. === HISTORY: ALLERGIES Allergen Reactions Hydrochlorothiazide Other: See Comments Sulfamethoxazole-Tr* Unknown, Other: See Comments Acetaminophen Other: See Comments Rebound headaches Acetaminophen-Codei* Unknown Doxycycline Hives Hydrocodone Other: See Comments Kihei Juice Unknown Kihei Oil Hives, Other: See Comments Pseudoephedrine Unknown Vicodin [Hydrocodon* Mental Status Change, Itching Aripiprazole Mental Status Change 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 Stroke due to intracerebral hemorrhage (HCC) 2017 Had an additional stroke at age 25 PAST SURGICAL HISTORY Procedure Laterality Date APPENDECTOMY CARPAL TUNNEL Left 2014 COLONOSCOPY 20's with EGD EGD TRANSORAL BIOPSY SINGLE/MULTIPLE 10/02/2015 EXCISION PILONIDAL CYST/SINUS EXTENSIVE 07/05/2010 closed ORTHOPEDICS SURGERY HX Right 12/2022 Right ROTATOR cUFF PAST SURGICAL HISTORY OF right knee surgery TONSILLECTOMY PRIMARY/SECONDARY Tonsillectomy VASECTOMY UNI/BI SPX W/POSTOP SEMEN EXAMS Bilateral 05/23/2016 FAMILY HISTORY Problem Relation Age of Onset Prostate Cancer Father Hypertension Father Social History Tobacco Use Smoking status: Never Passive exposure: Never Smokeless tobacco: Never Vaping Use Vaping status: Never Used Substance Use Topics Alcohol use: Yes Comment: OCCASIONAL Drug use: No Current Outpatient Medications Medication Sig cyclobenzaprine (FLEXERIL) 5 mg tablet TAKE 1 TABLET BY MOUTH THREE TIMES DAILY NEEDED MYRBETRIQ 25 mg Tb24 Take 25 mg by mouth once daily. sucralfate (CARAFATE) 1 gram tablet Take 1 g by mouth four times daily. tiZANidine (ZANAFLEX) 4 mg tablet Take 4 mg by mouth every 6 hours as needed. pregabalin (LYRICA) 150 mg capsule Take 1 capsule by mouth three times a day. ondansetron (ZOFRAN) 8 mg tablet Take 8 mg by mouth every 8 hours as needed. fexofenadine (KIMBERLY) 180 mg tablet Take 180 mg by mouth once daily. DULoxetine (CYMBALTA) 60 mg capsule Take 180 mg by mouth once daily. zonisamide (ZONEGRAN) 50 mg capsule Take 50 mg by mouth once daily. fluticasone (FLONASE) 50 mcg/actuation nasal spray Use 2 Sprays in each nostril once daily. gabapentin (NEURONTIN) 600 mg tablet Take 1 tablet by mouth three times a day for 90 days. guaiFENesin-dextromethorphan (ROBITUSSIN DM) 100-10 mg/5 mL syrup Take 10 mL by mouth three times a day as needed. atorvastatin (LIPITOR) 40 mg tablet 1 tablet by ORAL/FEEDING TUBE route daily at bedtime. tamsulosin (FLOMAX) 0.4 mg Take 0.4 mg by mouth once daily. lidocaine (LIDODERM) 5 % Apply 1 Patch as directed as directed. Apply 1 patch for 12 hours then remove for 12 hours docusate sodium (COLACE) 100 mg capsule Take 1 capsule by mouth twice daily. (more content not included)...[facility]05-06-2025 Evaluation note* Diagnosis Onset Date Resolution Status Admit Date Osteoarthritis of right knee acute September 20, 2024 10:50am Right knee pain acute September 20, 2024 10:50am Osteoarthritis of right knee acute October 06, 2024 11:25am Right knee pain acute October 06, 2024 11:25am Osteoarthritis of right knee acute October 19, 2024 10:56am Right knee pain acute October 19, 2024 10:56am Primary osteoarthritis, righ t shoulder acute October 25, 2024 10:32am Right shoulder pain acute October 25, 2024 10:32am Osteoarthritis of right knee acute October 27, 2024 10:19am Right knee pain acute October 10:19am Primary osteoarthritis, righ t shoulder acute November 21, 2024 1 1:23am Right rotator cuff tear acute J alexander 2024 11:23am Right shoulder pain acute November 21, 2024 11:23am S/P rotator cuff repair acute J [facility] 2024 11:23am [facility] Work Phone: [phone]) 340-1049641867-14-2957 Evaluation note* Diagnosis Onset Date Resolution Status Admit Date Osteoarthritis of right knee acute September 20, 2024 10:50am Right knee pain acute September 20, 2024 10:50am Osteoarthritis of right knee acute October 06, 2024 11:25am Right knee pain acute October 06, 2024 11:25am Osteoarthritis of right knee acute October 19, 2024 10:56am Right knee pain acute October 19, 2024 10:56am Primary osteoarthritis, righ t shoulder acute October 25, 2024 10:32am Right shoulder pain acute October 25, 2024 10:32am Osteoarthritis of right knee acute October 27, 2024 10:19am Right knee pain acute October 10:19am Primary osteoarthritis, righ t shoulder acute November 21, 2024 1 1:23am Right rotator cuff tear acute J alexander 2024 11:23am Right shoulder pain acute November 21, 2024 11:23am S/P rotator cuff repair acute J alexander 2024 11:23am Osteoarthritis of right knee acute December 05, 2024 9:58am [facility] [employer] Work Phone: 1(597) 953-255104-11-2025 Telephone encounter Note* Telephone Encounter - Rachel Arguelles PA-C - 08/26/2024 10:37 AM EDT The following approved medication requests have been transmitted electronically. Requested Prescriptions Signed Prescriptions Disp Refills cyclobenzaprine (FLEXERIL) 5 mg tablet 270 tablet 4 Sig: TAKE 1 TABLET BY MOUTH THREE TIMES DAILY NEEDED Authorizing Provider: RACHEL ARGUELLES PA-C [facility]04-11-2025 Miscellaneous Notes* Telephone Encounter - Rachel Arguelles PA-C - 08/26/2024 10:37 AM EDT The following approved medication requests have been transmitted electronically. Requested Prescriptions Signed Prescriptions Disp Refills cyclobenzaprine (FLEXERIL) 5 mg tablet 270 tablet 4 Sig: TAKE 1 TABLET BY MOUTH THREE TIMES DAILY NEEDED Authorizing Provider: RACHEL ARGUELLES PA-C documented in this encounterA[facility] Evaluation note* Diagnosis Onset Date Resolution Status Admit Date Osteoarthritis of right knee acute July 19, 2024 10:31am Right knee pain acute July 10:31am Osteoarthritis of right knee acute September 20, 2024 10:50am Right knee pain acute September 20, 2024 10:50am Osteoarthritis of right knee acute October 06, 2024 11:25am Right knee pain acute October 06, 2024 11:25am Osteoarthritis of right knee acute October 19, 2024 10:56am Right knee pain acute October 19, 2024 10:56am Right shoulder pain acute October 25, 2024 10:32am [facility] [employer] Work Phone: 1([phone]) 847-941703-04-2025 Evaluation note* Diagnosis Onset Date Resolution Status Admit Date Osteoarthritis of right knee acute July 19, 2024 10:31am Right knee pain acute July 10:31am Osteoarthritis of right knee acute September 20, 2024 10:50am Right knee pain acute September 20, 2024 10:50am Osteoarthritis of right knee acute October 06, 2024 11:25am Right knee pain acute October 06, 2024 11:25am Osteoarthritis of right knee acute October 19, 2024 10:56am Right knee pain acute October 19, 2024 10:56am Primary osteoarthritis, righ t shoulder acute October 25, 2024 10:32am Right shoulder pain acute October 25, 2024 10:32am [employer] Work Phone: 1(155) 196-714503-04-2025 Evaluation note* Diagnosis Onset Date Resolution Status Admit Date Osteoarthritis of right knee acute July 19, 2024 10:31am Right knee pain acute July 10:31am Osteoarthritis of right knee acute September 20, 2024 10:50am Right knee pain acute September 20, 2024 10:50am Osteoarthritis of right knee acute October 06, 2024 11:25am Right knee pain acute October 06, 2024 11:25am Osteoarthritis of right knee acute October 19, 2024 10:56am Right knee pain acute October 19, 2024 10:56am Primary osteoarthritis, righ t shoulder acute October 25, 2024 10:32am Right shoulder pain acute October 25, 2024 10:32am Osteoarthritis of right knee acute October 27, 2024 10:19am Right knee pain acute October 10:19am [employer] Work Phone: 1(112) 891-326203-04-2025 Evaluation note* Diagnosis Onset Date Resolution Status Admit Date Osteoarthritis of right knee acute July 19, 2024 10:31am Right knee pain acute July 10:31am Osteoarthritis of right knee acute September 20, 2024 10:50am Right knee pain acute September 20, 2024 10:50am Osteoarthritis of right knee acute October 06, 2024 11:25am Right knee pain acute October 06, 2024 11:25am Osteoarthritis of right knee acute October 19, 2024 10:56am Right knee pain acute October 19, 2024 10:56am [facility] Work Phone: 1([phone]) 185-585702-14-2025 Telephone encounter Note* Telephone Encounter - Rabia Rangel - 07/01/2024 4:10 PM EST [employer] No-Show Documentation Tate Baltazar no showed for an appointment on 07/01/2024 with Leeann Owens [facility]-C. [facility]. The patient was was scheduled for a follow up appointment. I called and spoke with the patient regarding missed appointment. N/A The patient stated the reason that they missed the appointment was because no answer . Resources discussed/offered to patient: N/A No show determined to be fault of patient: Yes This is the patients first no show in the last 12 months. Patient was rescheduled for no answer. Letter mailed regular mail AND certified : No reg mail only Is this the Third or Fourth No Show? Josey Rangel July 01, 2024 4:13 PM [facility]02-14-2025 Miscellaneous Notes* Telephone Encounter - Rabia Rangel - 07/01/2024 4:10 PM EST [employer] No-Show Documentation Tate Baltazar no showed for an appointment on 07/01/2024 with Leeann Owens PA-C. at [facility]. The patient was was scheduled for a follow up appointment. I called and spoke with the patient regarding missed appointment. N/A The patient stated the reason that they missed the appointment was because no answer . Resources discussed/offered to patient: N/A No show determined to be fault of patient: Yes This is the patients first no show in the last 12 months. Patient was rescheduled for no answer. Letter mailed regular mail AND certified : No reg mail only Is this the Third or Fourth No Show? Josey Rangel July 01, 2024 4:13 PM documented in this encounterA[facility] Note* Exam Date Time Procedure Performing Provider Status 05/24/24 11:06 AM US Abdomen Complete JASON VERMA DO ; Auth (Verified) [id number] ORIGINAL EXAMINATION: COMPLETE ABDOMINAL ULTRASOUND 05/24/2024 11:07 am COMPARISON: None. HISTORY: ORDERING SYSTEM PROVIDED HISTORY: Reason for Exam: Abdominal pain with questionable diverticulitis FINDINGS: LIVER: The liver demonstrates moderate diffuse increased echogenicity without evidence of intrahepatic biliary ductal dilatation. Liver measures 17.7 cm in length. BILIARY SYSTEM: Gallbladder partially distended containing 3 mm polyps and sludge. There is no stone disease, ultrasound Razo sign or gallbladder wall thickening. Common bile duct is within normal limits measuring 2.8 mm. KIDNEYS: The kidneys are unremarkable in appearance without evidence of hydronephrosis. Right and left kidneys measure 11.1 x 5.6 x 5.1 cm, and 10.7 x 5.5 x 5.0 cm respectively. There is appropriate cortical thickness and echotexture. PANCREAS: Visualized portions of the pancreas are unremarkable. SPLEEN: The spleen is unremarkable in appearance. Spleen is within normal limits in size. IVC: The IVC is patent. AORTA: Mid aorta measures 2.0 x 2.0 cm. Distal aorta measures 1.5 x 1.6 cm. Proximal aorta is obscured by bowel gas. OTHER: No evidence of ascites. IMPRESSION: 1. Diffuse fatty infiltration of the liver. 2. 3 mm gallbladder polyps and sludge. Interpreted by: Jason Verma DO Preliminary Report By: Jason Verma DO Electronically signed By Jason Verma DO Dictated Date: 05/24/2024 11:50:28 AM Prelim Date: 05/24/2024 11:52:04 AM Sign Date: 05/24/2024 11:52:04 AM Ordering Provider: ALLI OLESYA [facility]12-30-2024 Telephone encounter Note* Telephone Encounter - Francisco Young PA-C - 05/16/2024 9:08 AM EST The following approved medication requests have been transmitted electronically. Requested Prescriptions Pending Prescriptions Disp Refills gabapentin (NEURONTIN) 600 mg tablet [Pharmacy Med Name: gabapentin 600 mg tablet] 90 tablet 2 Sig: Take 1 tablet by mouth three times a day for 90 days. Francisco Young PA-C [facility]12-30-2024 Miscellaneous Notes* Telephone Encounter - Francisco Young PA-C - 05/16/2024 9:08 AM EST The following approved medication requests have been transmitted electronically. Requested Prescriptions Pending Prescriptions Disp Refills gabapentin (NEURONTIN) 600 mg tablet [Pharmacy Med Name: gabapentin 600 mg tablet] 90 tablet 2 Sig: Take 1 tablet by mouth three times a day for 90 days. Francisco Young PA-C * Telephone Encounter - Mireya Werner RN - 05/16/2024 8:37 AM EST Patient phones requesting refills as follows: Requested Prescriptions Pending Prescriptions Disp Refills gabapentin (NEURONTIN) 600 mg tablet [Pharmacy Med Name: gabapentin 600 mg tablet] 90 tablet 2 Sig: Take 1 tablet by mouth three times a day for 30 days. Last UDS: Attempted to call about appt 08/19 with Guilherme no answer 06/27/2022 1:10 PM EST UDS CONSISTENT 05/22/22 UDS Inconsistent - oxycodone No further narcotics will be prescribed by Mor Edgar 12/16/21 uds inconsistent -oxycodone, warning given last uds 12/09/22---STILL INCONSISTENT,ABSENT PERCOCET ON LAST 2 UDS. NO FURTHER NARCOTICS,PATIENT NEEDS TO ASK SURGEON FOR ACUTE POST-OP PAIN MEDS [facility] Summary Report Date Value Ref Range Status 12/09/2022 FINAL Final Comment: Gabapentin, MS, Ur RFX Acetaminophen, MS, Ur RFX ToxAssure Flex 23, Ur Test Result Flag Units Drug Present Gabapentin PRESENT Acetaminophen PRESENT Test Result Flag Units Ref Range Creatinine 75 mg/dL >=20 Declared Medications: Medication list was not provided. For clinical consultation, please call . Note,Ur Pain [place] Date Value Ref Range Status 10/19/2017 This test is for Medical use only. Final Comment: This test was developed and its performance characteristics determined by [facility]'s [facility] [place] ([facility]). It has not been cleared or approved by the FDA. [facility] is regulated under CLIA as qualified to perform high-complexity testing. This test is used for clinical purposes. It should not be regarded as investigational or for research. Urine Panel: Lab Results Component Value Date Cannabinoid Quant, Urine <16 10/19/2017 Benzoylecognine Quant, Urine <24 10/19/2017 6-Acetylmorphine Quant, Urine <5 10/19/2017 Amphetamine Quant, Urine <5 10/19/2017 Methamphetamine Quant, Urine <8 10/19/2017 Buprenorphine Quant, Urine <20 10/19/2017 Norbuprenorphine Quant, Urine <20 10/19/2017 Methadone Quant, Urine <16 10/19/2017 EDDP Quant, Urine <6 10/19/2017 Tramadol Quant, Urine <25 10/19/2017 Desmethyltramadol Quant, Urine <20 10/19/2017 Fentanyl Quant, Urine <6 10/19/2017 Norfentanyl Quant, Urine <6 10/19/2017 Codeine Quant, Urine <11 10/19/2017 Morphine Quant, Urine <10 10/19/2017 Dihydrocodeine Quant, Urine <5 10/19/2017 Hydrocodone Quant, Urine <8 10/19/2017 Oxycodone Quant, Urine <5 10/19/2017 Hydromorphone Quant, Urine <5 10/19/2017 Oxymorphone Quant, Urine 29 (H) 10/19/2017 Creatinine,Ur Pain [place] 50.9 10/19/2017 Urine pH, Pain [place] 7.5 10/19/2017 Specific [place],Ur Pain [place]o 1.007 10/19/2017 Oxidants,Ur <38 10/19/2017 @FLOW([id number])@ Lab Results Component Value Date SUMM FINAL 12/09/2022 Summary Report (Summary) Date Value Ref Range Status 12/16/2021 FINAL Final Comment: TOXASSURE COMP DRUG ANALYSIS,UR Test Result Flag Units Drug Present Gabapentin PRESENT Tizanidine PRESENT Bupropion PRESENT Hydroxybupropion PRESENT Hydroxybupropion is an expected metabolite of bupropion. Duloxetine PRESENT Fluoxetine PRESENT Norfluoxetine PRESENT Norfluoxetine is an expected metabolite of fluoxetine. Acetaminophen PRESENT Diphenhydramine PRESENT Doxylamine PRESENT Dextromethorphan PRESENT Dextrorphan/Levorphanol PRESENT Dextrorphan is an expected metabolite of dextromethorphan, an [id number] or prescription cough suppressant. Dextrorphan cannot be distinguished from the scheduled prescription medication levorphanol by the method used for analysis. Verapamil PRESENT Test Result Flag Units Ref Range Creatinine 130 mg/dL >=20 Declared Medications: Medication list was not provided. For clinical consultation, please call . Last Opioid agreement effective date: 04/21/2022 Please review and advise. Mireya Werner RN documented in this encounterA[facility]12-[facility] Telephone encounter Note * Telephone Encounter - Mireya Werner RN - 05/16/2024 8:37 AM EST Patient phones requesting refills as follows: Requested Prescriptions Pending Prescriptions Disp Refills gabapentin (NEURONTIN) 600 mg tablet [Pharmacy Med Name: gabapentin 600 mg tablet] 90 tablet 2 Sig: Take 1 tablet by mouth three times a day for 30 days. Last UDS: Attempted to call about appt 08/19 with Guilherme no answer 06/27/2022 1:10 PM EST UDS CONSISTENT 05/22/22 UDS Inconsistent - oxycodone No further narcotics will be prescribed by Mor Edgar 12/16/21 uds inconsistent -oxycodone, warning given last uds 12/09/22---STILL INCONSISTENT,ABSENT PERCOCET ON LAST 2 UDS. NO FURTHER NARCOTICS,PATIENT NEEDS TO ASK SURGEON FOR ACUTE POST-OP PAIN MEDS [facility] Summary Report Date Value Ref Range Status 12/09/2022 FINAL Final Comment: Gabapentin, MS, Ur RFX Acetaminophen, MS, Ur RFX ToxAssure Flex 23, Ur Test Result Flag Units Drug Present Gabapentin PRESENT Acetaminophen PRESENT Test Result Flag Units Ref Range Creatinine 75 mg/dL >=20 Declared Medications: Medication list was not provided. For clinical consultation, please call . Note,Ur Pain Sauced[place] Date Value Ref Range Status 10/19/2017 This test is for Medical use only. Final Comment: This test was developed and its performance characteristics determined by [facility]'s Lanette Bill [facility] [place] ([facility] It has not been cleared or approved by the FDA. [facility] is regulated under CLIA as qualified to perform high-complexity testing. This test is used for clinical purposes. It should not be regarded as investigational or for research. Urine Panel: Lab Results Component Value Date Cannabinoid Quant, Urine <16 10/19/2017 Benzoylecognine Quant, Urine <24 10/19/2017 6-Acetylmorphine Quant, Urine <5 10/19/2017 Amphetamine Quant, Urine <5 10/19/2017 Methamphetamine Quant, Urine <8 10/19/2017 Buprenorphine Quant, Urine <20 10/19/2017 Norbuprenorphine Quant, Urine <20 10/19/2017 Methadone Quant, Urine <16 10/19/2017 EDDP Quant, Urine <6 10/19/2017 Tramadol Quant, Urine <25 10/19/2017 Desmethyltramadol Quant, Urine <20 10/19/2017 Fentanyl Quant, Urine <6 10/19/2017 Norfentanyl Quant, Urine <6 10/19/2017 Codeine Quant, Urine <11 10/19/2017 Morphine Quant, Urine <10 10/19/2017 Dihydrocodeine Quant, Urine <5 10/19/2017 Hydrocodone Quant, Urine <8 10/19/2017 Oxycodone Quant, Urine <5 10/19/2017 Hydromorphone Quant, Urine <5 10/19/2017 Oxymorphone Quant, Urine 29 (H) 10/19/2017 Creatinine,Ur Pain [place] 50.9 10/19/2017 Urine pH, Pain [place] 7.5 10/19/2017 Specific [place],Ur Pain [place] 1.007 10/19/2017 Oxidants,Ur <38 10/19/2017 @FLOW([id number])@ Lab Results Component Value Date SUMM FINAL 12/09/2022 Summary Report (Summary) Date Value Ref Range Status 12/16/2021 FINAL Final Comment: TOXASSURE COMP DRUG ANALYSIS,UR Test Result Flag Units Drug Present Gabapentin PRESENT Tizanidine PRESENT Bupropion PRESENT Hydroxybupropion PRESENT Hydroxybupropion is an expected metabolite of bupropion. Duloxetine PRESENT Fluoxetine PRESENT Norfluoxetine PRESENT Norfluoxetine is an expected metabolite of fluoxetine. Acetaminophen PRESENT Diphenhydramine PRESENT Doxylamine PRESENT Dextromethorphan PRESENT Dextrorphan/Levorphanol PRESENT Dextrorphan is an expected metabolite of dextromethorphan, an ichv-mds-tkfnthe or prescription cough suppressant. Dextrorphan cannot be distinguished from the scheduled prescription medication levorphanol by the method used for analysis. Verapamil PRESENT Test Result Flag Units Ref Range Creatinine 130 mg/dL >=20 Declared Medications: Medication list was not provided. For clinical consultation, please call . Last Opioid agreement effective date: 04/21/2022 Please review and advise. Mireya Werner RN [facility]12-30-2024 [id number] (AGENT OF COVID-19) RNA: Not detected INFLUENZA A RNA: Not detected INFLUENZA B RNA: Not detected RESPIRATORY SYNCYTIAL VIRUS (RSV) RNA: Not detectedLincolnhealthComment on above:Performed By: #### [id number] #### [facility] CLIA [id number] [address] [place] [id number] [place] [address] OF [id number] Telephone encounter Note* Telephone Encounter - Rabia Rangel - 04/21/2024 4:09 PM EST [employer] No-Show Documentation Tate Baltazar no showed for an appointment on 04/21/2024 with Leeann Owens PA-C. at [facility]. The patient was was scheduled for a follow up appointment. I called and spoke with the patient regarding missed appointment. Yes The patient stated the reason that they missed the appointment was because forgot . Resources discussed/offered to patient: Yes No show determined to be fault of patient: Yes This is the patients first no show in the last 12 months. Patient was rescheduled for 07/01/2024. Letter mailed regular mail AND certified : Yes Reg mail only Is this the Third or Fourth No Show? No Rabia Rangel April 21, 2024 4:09 PM [facility]12-05-2024 Miscellaneous Notes* Telephone Encounter - Rabia Rangel - 04/21/2024 4:09 PM EST [employer] No-Show Documentation Tate Baltazar no showed for an appointment on 04/21/2024 with Leeann Owens PA-C. at [facility]. The patient was was scheduled for a follow up appointment. I called and spoke with the patient regarding missed appointment. Yes The patient stated the reason that they missed the appointment was because forgot . Resources discussed/offered to patient: Yes No show determined to be fault of patient: Yes This is the patients first no show in the last 12 months. Patient was rescheduled for 07/01/2024. Letter mailed regular mail AND certified : Yes Reg mail only Is this the Third or Fourth No Show? No Rabia Rangel April 21, 2024 4:09 PM documented in this encounterA[facility]12-[facility] Telephone encounter Note * Telephone Encounter - Reva Guadalupe MA - 04/21/2024 9:25 AM EST Pt is sx for EGD w dr. Ochoa on 09/08/2024 at [facility] w the arrival time of 1:45 pm EPIC schedule updated Order submitted Open Case request submitted Case # [id number] - Rx called into pharmacy @ Endo packet mailed to patient Prep sent via MarkLogichart if pt acct active Pt is aware they will need a commercial relief driver to take them home from procedure. Must be family member or friend. They cannot use any ride programs. Ex: Uber, Lyft, SCAT, bus, etc...) [facility] [id number] Miscellaneous Notes* Telephone Encounter - Reva Guadalupe MA - 04/21/2024 9:25 AM EST Pt is sx for EGD w dr. Ochoa on 09/08/2024 at [facility] w the arrival time of 1:45 pm EPIC schedule updated Order submitted Open Case request submitted Case # [id number] - Rx called into pharmacy @ Endo packet mailed to patient Prep sent via [employer] if pt acct active Pt is aware they will need a commercial relief driver to take them home from procedure. Must be family member or friend. They cannot use any ride programs. Ex: Uber, Lyft, SCAT, bus, etc...) * Telephone Encounter - Reva Guadalupe MA - 04/20/2024 9:43 AM EST Lmtcb re: sx egd * Telephone Encounter - Emily Desai RN - 04/12/2024 10:30 AM EST GI staff to contact pt for scheduling. * Telephone Encounter - Emily Desai RN - 04/12/2024 10:30 AM EST ----- Message from THANG Nichole CNP sent at 03/15/2024 10:11 AM EDT ----- Please schedule patient for EGD-[place] location. Thank you. documented in this encounterSOhioHealth Hardin Memorial [id number] [id number] (AGENT OF COVID-19) RNA: Not detected INFLUENZA A RNA: Not detected INFLUENZA B RNA: Not detected RESPIRATORY SYNCYTIAL VIRUS (RSV) RNA: Not detectedLincolnhealthComment on above:Performed By: #### [id number], [id number] #### [facility] CLIA [id number] [address] [place] [id number] [facility]12-04-2024 Telephone encounter Note* Telephone Encounter - Reva Guadalupe MA - 04/20/2024 9:43 AM EST Lmtcb re: sx egd [facility] [id number] Miscellaneous Notes* Telephone Encounter - Reva Guadalupe MA - 04/20/2024 9:43 AM EST Lmtcb re: sx egd * Telephone Encounter - Emily Desai RN - 04/12/2024 10:30 AM EST GI staff to contact pt for scheduling. * Telephone Encounter - Emily Desai RN - 04/12/2024 10:30 AM EST ----- Message from THANG Nichole CNP sent at 03/15/2024 10:11 AM EDT ----- Please schedule patient for EGD-[place] location. Thank you. documented in this encounterSOhioHealth Hardin Memorial [id number] Telephone encounter Note* Telephone Encounter - Emily Desai RN - 04/12/2024 10:30 AM EST GI staff to contact pt for scheduling. [facility] [id number] Telephone encounter Note* Telephone Encounter - Emily Desai RN - 04/12/2024 10:30 AM EST ----- Message from THANG Nichole CNP sent at 03/15/2024 10:11 AM EDT ----- Please schedule patient for EGD[facility] location. Thank you. [facility] [id number] Telephone encounter Note* Telephone Encounter - Rachel Arguelles PA-C - 04/08/2024 9:55 AM EST The following approved medication requests have been transmitted electronically. Requested Prescriptions Signed Prescriptions Disp Refills cyclobenzaprine (FLEXERIL) 5 mg tablet 270 tablet 1 Sig: Take 1 tablet by mouth three times a day as needed. Authorizing Provider: RACHEL ARGUELLES PA-C [facility]11-22-2024 Miscellaneous Notes* Telephone Encounter - Rachel Arguelles PA-C - 04/08/2024 9:55 AM EST The following approved medication requests have been transmitted electronically. Requested Prescriptions Signed Prescriptions Disp Refills cyclobenzaprine (FLEXERIL) 5 mg tablet 270 tablet 1 Sig: Take 1 tablet by mouth three times a day as needed. Authorizing Provider: RACHEL ARGUELLES PA-C * Telephone Encounter - Norma Young RN - 04/08/2024 9:34 AM EST Seen by [facility] on 08/20/23 for FU We sorted out that he's taking tizanidine, and he derives benefit from the medication. He is to continue the current dose of . He was again given a prescription for cyclobenzaprine 5mg with the ability to take it up to three times daily as needed for severe spasms. Last cyclobenzaprine script written 08/20/23 for 6 months * Telephone Encounter - Real Hill - 04/08/2024 8:45 AM EST Source : fax from pharmacy requesting refill. Delivery : e-script Requested Prescriptions Pending Prescriptions Disp Refills cyclobenzaprine (FLEXERIL) 5 mg tablet 270 tablet 1 Sig: Take 1 tablet by mouth three times a day as needed. DX : Patient last seen 08-20-23 Next Appointment : Real Hill documented in this encounterAultman [facility] Hospital11-22-2024 Telephone encounter Note * Telephone Encounter - Norma Young RN - 04/08/2024 9:34 AM EST Seen by [facility] on 08/20/23 for FU We sorted out that he's taking tizanidine, and he derives benefit from the medication. He is to continue the current dose of . He was again given a prescription for cyclobenzaprine 5mg with the ability to take it up to three times daily as needed for severe spasms. Last cyclobenzaprine script written 08/20/23 for 6 months [facility] Work Phone: [phone] Telephone encounter Note* Telephone Encounter - Real Hill - 04/08/2024 8:45 AM EST Source : fax from pharmacy requesting refill. Delivery : e-script Requested Prescriptions Pending Prescriptions Disp Refills cyclobenzaprine (FLEXERIL) 5 mg tablet 270 tablet 1 Sig: Take 1 tablet by mouth three times a day as needed. DX : Patient last seen 08-20-23 Next Appointment : Real Hill [facility] Work Phone: [phone] Telephone encounter Note* Telephone Encounter - THANG Nichole CNP - 03/29/2024 4:36 PM EST Noted, thank you. Prior EGD and colonoscopy 07/25/2020 ()-LA Grade B esophagitis, 4 cm HH. Normal colonoscopy. [facility] [id number] Miscellaneous Notes* Telephone Encounter - THANG Nichole CNP - 03/29/2024 4:36 PM EST Noted, thank you. Prior EGD and colonoscopy 07/25/2020 ()-LA Grade B esophagitis, 4 cm HH. Normal colonoscopy. * Telephone Encounter - Luc Rosario - 03/25/2024 10:47 AM EST Received faxed records from [facility] and scanned into media. Thanks documented in this encounterSOhioHealth Hardin Memorial [id number] Telephone encounter Note* Telephone Encounter - Luc Rosario - 03/25/2024 10:47 AM EST Received faxed records from [facility] and scanned into media. Thanks [facility]10-29-2024 History of Present illness Narrative* Cyndy Walton, SAFETY NET MAKER - COIL BUILDER - 03/15/2024 9:20 AM EDT Images from the original note were not included. [facility] [place] [address] [facility] [address] Dept: [phone] Dept Loc: [phone] Visit type: New Reason for Visit: New Patient and Abdominal Pain Assessment and Plan Problem List Items Addressed This Visit None Visit Diagnoses Nausea and vomiting, unspecified vomiting type - Primary Epigastric pain --schedule EGD for further evaluation of epigastric pain, n/v ongoing 6+ months; symptoms without improvement with max dose PPI + Carafate; 2 related ED visits 08/2023; CT A/P without acute process --continue symptomatic treatment as prescribed by PCP while awaiting procedure --request prior EGD/colonoscopy report from [facility] --may consider GES pending results of EGD --patient declined colonoscopy for colon cancer screening --EDU printed Advised patient to call office with new or worsening symptoms, questions, or concerns. Patient verbalized understanding and agreement of plan. Follow up in about 3 months (around 06/15/2024), or if symptoms worsen or fail to improve. Subjective Abdominal Pain Pertinent negatives include no constipation, diarrhea, nausea or vomiting. Patient is referred by Dr. Harkins (12/04/2023), re: epigastric pain and nausea refractory to PPI therapy. Patient has pmh HTN, GERD, AJNNETTE on CPAP, chronic right shoulder pain, myofascial pain syndrome, lumbar radiculopathy, stroke X 2-ICH 10/2017 Patient reports feeling sick to his stomach, ongoing for 6+ months. This is made worse by eating, has associated vomiting. Has associated epigastric pain-pain so intense it makes him not want to eat.Has been taking pantoprazole 40 mg BID and Carafate 1g QID without improvement. No weight-loss, hashad some weight-gain. He had ED visit related to abdominal pain 09/10/23 and 09/12/2023. 09/10/2023-CT A/P without acute process. Bowel habits are irregular-alternates diarrhea and constipation. If he takes fiber supplement, notes he is much more regular. Denies hematochezia and melena. Prior abdominal surgeries: appendectomy Prior EGD and colonoscopy at [facility]-unsure time, before 2005. Reports history of ulcers. No NSAIDs. Hx alcohol abuse; currently rare EtOH use, once every few months. Has sleep apnea, does not wear CPAP. No anticoagulants or supplemental oxygen use. No family hx colon cancer. Review of Systems Constitutional: Negative for appetite change and unexpected weight change. HENT: Negative for trouble swallowing and voice change. Respiratory: Negative for shortness of breath. Cardiovascular: Negative for chest pain. Gastrointestinal: Positive for abdominal pain. Negative for abdominal distention, anal bleeding, blood in stool, constipation, diarrhea, nausea, rectal pain and vomiting. Genitourinary: Negative for difficulty urinating. Skin: Negative for color change. Neurological: Negative for weakness. Allergies Allergen Reactions Sulfamethoxazole-Trimethoprim Other Reaction(s): Other (See Comments), Other: See Comments, Unknown Hydrocodone-Acetaminophen Itching Other Reaction(s): Mental Status Change Pseudoephedrine Other Reaction(s): Unknown Outpatient Medications Prior to Visit Medication Sig Dispense Refill buPROPion XL (Wellbutrin XL) 300 MG 24 hr tablet Take 1 tablet by mouth daily. cyclobenzaprine (Flexeril) 5 MG tablet Take 5 mg by mouth 3 times daily as needed. DULoxetine (Cymbalta) [address] capsule Take 60 mg by mouth. fexofenadine (Kimberly) 180 MG tablet Take 180 mg by mouth daily. gabapentin (Neurontin) 600 MG tablet Take 600 mg by mouth 3 times daily. Myrbetriq 25 MG 24 hr tablet Take 1 tablet by mouth daily. Nurtec 75 MG tablet dispersible take 1 tablet by oral route as needed for migraine; limit 1 per 24 hours pantoprazole (ProtoNix) 40 MG EC tablet Take 1 tablet by mouth 2 times daily. potassium chloride CR (K-Tab) 20 MEQ ER tablet Take 20 mEq by mouth daily. sucralfate (Carafate) 1 g tablet TAKE 1 TABLET BY MOUTH FOUR TIMES DAILY FOR 30 DAYS tamsulosin (Flomax) 0.4 MG 24 hr capsule TAKE 1 CAPSULE BY MOUTH ONCE DAILY 30 MINUTES after the same meal each day tiZANidine (Zanaflex) 4 MG tablet TAKE 1 TABLET BY MOUTH EVERY afternoon, TAKE 1 TABLET BY MOUTH INTHE EVENING and TAKE 2 TABLETS BY MOUTH AT BEDTIME valsartan (Diovan) 160 MG tablet Take 1 tablet by mouth daily. verapamil ER (Verelan) 240 MG 24 hr capsule Take 1 capsule by mouth daily. zonisamide (Zonegran) 50 MG capsule TAKE 1 CAPSULE BY MOUTH EVERY DAY AT BEDTIME gabapentin (Neurontin) 600 MG tablet Take 600 mg by mouth in the morning and 600 mg at noon and 600mg in the evening. (Patient not taking: Reported on 03/15/2024) No facility-administered medications prior to visit. There are no active problems to display for this patient. Social History Tobacco Use Smoking status: Never Smokeless tobacco: Never Substance Use Topics Alcohol use: Not on file Family History Problem Relation Name Age of Onset Thyroid disease Mother Prostate cancer Father Objective BP 128/73 Pulse 110 Ht 6' 3 (1.905 m) Wt 252 lb (114 kg) BMI 31.50 kg/m Physical Exam Constitutional: Appearance: Normal appearance. HENT: Head: Normocephalic. Eyes: General: No scleral icterus. Cardiovascular: Rate and Rhythm: Regular rhythm. Tachycardia present. Pulmonary: Effort: Pulmonary effort is normal. Breath sounds: Normal breath sounds. Abdominal: General: Bowel sounds are normal. There is no distension. Palpations: Abdomen is soft. There is no mass. Tenderness: There is abdominal tenderness (epigastric and periumbilical ttp). There is no guarding or rebound. Hernia: No hernia is present. Skin: General: Skin is warm and dry. Coloration: Skin is not jaundiced. Neurological: General: No focal deficit present. Mental Status: He is alert and oriented to person, place, and time. Psychiatric: Mood and Affect: Mood normal. Behavior: Behavior normal. Data Reviewed and Summarized Labs: Imaging/Testin09/10/2023 CT Abdomen/Pelvis w IV cont MPRESSION: No evidence of acute intra-abdominal or pelvic pathology. Wafer Cleaner: LALA Transcribe Date/Time: Sep 10 2023 6:56P Dictated by : JENNIFER DESAI MD This examination was interpreted and the report reviewed and electronically signed by: JENNIFER DESAI MD on Sep 10 2023 7:08PM EST Narrative * * *Final Report* * * DATE OF EXAM: Sep 10 2023 6:45PM [facility] 0530 - CT ABD/PEL W IVCON / PROCEDURE REASON: Epigastric pain * * * * Physician Interpretation * * * * EXAMINATION: CT ABDOMEN AND PELVIS WITH IV CONTRAST CLINICAL HISTORY: Epigastric pain. TECHNIQUE: CT of the abdomen and pelvis was performed using standard technique, scanning from just above the dome of the diaphragm to the symphysis pubis. MQ: CTAP_3 Contrast: IV: 100 ml of Omnipaque 350 Oral: None CT Radiation dose: Integrated Dose-length product (DLP) for this visit = 1087.48 mGy*cm. CT Dose Reduction Employed: Automated exposure control(AEC) and iterative recon COMPARISON: None. RESULT: Liver: No mass. Diffuse hepatic steatosis with focal fatty sparing adjacent to the gallbladder fossa. Biliary: No bile duct dilation. Gallbladder is unremarkable. Spleen: No mass. No splenomegaly. Pancreas: No mass or duct dilation. Adrenals: No mass. Kidneys: No mass, calculus or hydronephrosis. GI tract: No dilation or wall thickening. The appendix is not identified. No evidence of bowel obstruction or perforation. Lymph nodes: No abdominal or pelvic lymphadenopathy. Mesentery/Peritoneum: No ascites or mass. Retroperitoneum: No mass. Vasculature: - Abdominal aorta and iliac arteries: No aneurysm. - Celiac and SMA: Patent without stenosis. - Portal venous system (SMV, splenic vein, portal vein and branches): Patent. - Hepatic veins: Patent. Pelvis: No mass, ascites or fluid collection. The urinary bladder is nondistended. Bones/Soft Tissues: Degenerative changes at the L5-S1 level. Lower thorax: Dependent atelectasis in the lung bases. Small hiatal hernia. Localizer images: No additional findings. SHIV Nichole 10:11 AM 03/15/24 documented in this [facility]10-29-2024 Instructions* Patient Instructions* THANG Nichole CNP - 03/15/2024 9:20 AM EDT --Please call office with any questions or concerns! [phone] --request prior EGD and colonoscopy report from [facility] --Schedule EGD (upper endoscopy)-Rosi. --continue pantoprazole and Carafate --Avoid nonsteroidal anti-inflammatory (NSAID) medications such as ibuprofen (Advil), naproxen (Aleve), etc. These can contribute to abdominal pain and ulcers. Take Tylenol (acetaminophen) instead ifneeded for pain by following the instructions on the bottle. --Please see handout provided regarding additional recommendations for the symptoms including when to seek emergency care or further treatment. --Follow-up with PCP, and in GI clinic in about 2-3 months following the above evaluation and recommendations. * Attachments The following attachments cannot be sent through Care Everywhere. * Upper GI Endoscopy (Namibian) * Nausea and Vomiting, Adult (Namibian) documented in this [facility]10-08-2024 Surgery Surgical operation note* Operative Report - Jennifer Munroe MD - 02/23/2024 8:46 AM EDT PROCEDURE: Right shoulder corticosteroid injection. DATE OF SERVICE: February 23, 2024 PREPROCEDURE DIAGNOSIS: Right shoulder OA-DJD ANESTHESIA: local COMPLICATIONS: none CONSENT: Risks of the procedure including bleeding, infection, nerve damage, seizure, abscess formation, hematoma formation, headache, failure of the pain to improve and potential worsening of the pain, were explained in full to the patient who verbalized understanding and wishes to proceed with the injection at this time. Written informed consent was thereby obtained. BRIEF HISTORY: Last done by 10/26/23. Patient wants this repeated again today DESCRIPTION OF PROCEDURE: After written informed consent was obtained as above, the patient was placed on the examination room table in the sitting position. The right shoulder joint space was identified using the subacromialapproach. The skin was sterilely prepped with ChloraPrep. A sterile drape was applied. The skin and subcutaneous tissues were infiltrated with 5- cc of 1% Lidocaine and a 25 gauge 1 inch needle. After negative aspiration to heme, a total of 60 mg Kenalog and 5 cc 0.25% PF Marcaine was injectedto the right shoulder. There were no complications noted upon injection. The needle tip was removed intact. The patient remained neurovascularly intact both pre- and postprocedure. The area was wiped clean and a Band-Aid was applied as appropriate. The patient was transferred to the recovery area where their VSS remained stable. After a period ofobservation, the patient was discharged home in good condition. COMMENTS: repeat prn Contemplating seeing Dr. Boateng for IT opioid trial. Referred to Ortho in [place] for 2nd opinion regarding right knee [facility] Work Phone: [phone] Surgical operation note* Operative Report - Jennifer Munroe MD - 02/23/2024 8:46 AM EDT PROCEDURE: Right shoulder corticosteroid injection. DATE OF SERVICE: February 23, 2024 PREPROCEDURE DIAGNOSIS: Right shoulder OA-DJD ANESTHESIA: local COMPLICATIONS: none CONSENT: Risks of the procedure including bleeding, infection, nerve damage, seizure, abscess formation, hematoma formation, headache, failure of the pain to improve and potential worsening of the pain, were explained in full to the patient who verbalized understanding and wishes to proceed with the injection at this time. Written informed consent was thereby obtained. BRIEF HISTORY: Last done by 10/26/23. Patient wants this repeated again today DESCRIPTION OF PROCEDURE: After written informed consent was obtained as above, the patient was placed on the examination room table in the sitting position. The right shoulder joint space was identified using the subacromialapproach. The skin was sterilely prepped with ChloraPrep. A sterile drape was applied. The skin and subcutaneous tissues were infiltrated with 5- cc of 1% Lidocaine and a 25 gauge 1 inch needle. After negative aspiration to heme, a total of 60 mg Kenalog and 5 cc 0.25% PF Marcaine was injectedto the right shoulder. There were no complications noted upon injection. The needle tip was removed intact. The patient remained neurovascularly intact both pre- and postprocedure. The area was wiped clean and a Band-Aid was applied as appropriate. The patient was transferred to the recovery area where their VSS remained stable. After a period ofobservation, the patient was discharged home in good condition. COMMENTS: repeat prn Contemplating seeing Dr. Boateng for IT opioid trial. Referred to Ortho in [place] for 2nd opinion regarding right knee documented in this encounterA[facility]09-18-[facility]24 Instructions* Patient Instructions* Chantell Barr APRN.CNP - 02/03/2024 1:42 PM EDT *Pt is offered non narcotic options due to inconsistent UDS's. Patient sees a chiropractor, did physical therapy, does independent excise program, and has a TENS unit at home Discussed left rib x-rays, right elbow, thoracic x-rays, and low back x-rays Continue Gabapentin 600 mg tablet TID Continue Zanaflex 6 mg tablet at bedtime Continue HEP Continue to use knee brace Continue TENS unit for shoulder pain Continue with PT as scheduled Continue to follow-up with Dr. Gotti - S/P right rotator cuff repair PA right shoulder injection-last done on 10/26/23- 80% relief that lasted for 2 1/2 months-scheduledfor 02/23/24 at 9:00 a.m. PA right knee injection - On 11/09/23 he had a right knee injection(Synvisc) and received 75% reliefand it lasted for 2 1/2 months-Scheduled for 02/16/24 at 9:00 a.m. Discussed Medtronic SCS trial - declining Will refer pt to a Mental Health provider for a mental health exam for an ITP pump trial-pt to callwith the name of who he would like to see Referral to Dr. Boateng per his request Reduce alcohol consumption A prescription for narcan (naloxone) has been offered to the patient F/u with PCP Follow-up in 3 months -in office visit Chantell Barr APRN.CNP [facility] History of Present illness Narrative* Chantell Barr, SAFETY NET MAKER.COIL BUILDER - 02/03/2024 11:30 AM EDT This video visit was performed via [employer] Zoom Video Visit. Patient consented to receive health care services via virtual visit for this encounter Provider Location[facility] Patient Location: Patient Home or Place of Residence I have communicated my name and active licensure. The patient's identity and physical location wereverified at the time of this visit. Either the patient or their legal client account representative has been informed of the risks and benefits of -- and alternatives to -- treatment through a remote evaluation andconsents to proceed with the evaluation remotely. Chief Complaint: Pain History of Present Illness: Tate Baltazar is a 48 year old year old male being seen at [facility] for a evaluation and/or management of his chronic pain. The patient last had a virtual visit on 08/19/23. He is scheduled for a virtual visit today. He states that since the last visit symptomshave been stable. He still needs to get the right elbow x-ray done. He plans on getting a right shoulder injection in October. On 06/30/23 he had a right knee injection and received 50% relief and it lasted for 1 month. He is requesting a right knee injection, he states the steroids are not helping hisknee pain and he would like to receive a Synvisc Gel Injection. The pain is currently described as follows: Location: lower back, migraines right arm, and right leg, right knee Radiation: right leg and right foot Intensity:9/10 Timing:constant Character: sharp, throbbing, and burning Numbness/tingling: yes, rt leg and right arm From elbow to hand Worsening factors: Increased activity Relieving factors: meds falls:denies Patient denies any bowel or bladder dysfunction. Since the last office visit the patients medical history has not changed. The patient went to the ER on 09/09 and again on 09/12/23 and admitted for 1 day due to abd pain. The patient is currently prescribed Gabapentin and Zanaflex from our office. The last doses were taken this morning. The medications are partially effective. The patient denies nausea, vomiting, constipation,rashes, drowsiness,weight gain, weight loss,dizziness,and fatigue. Lidocaine Patches are not helping d/t not sticking. The OARRS report has been reviewed and is consistent with the patients medical history and medication intake. Last UDS: UDS STILL INCONSISTENT, ABSENT PERCOCET ON LAST 2 UDS. NO FURTHER NARCOTICS. PATIENT NEEDS TO ASK SURGEON FOR ACUTE POST-OP PAIN MEDS. Summary Report Date Value Ref Range Status 12/09/2022 FINAL Final Comment: Gabapentin, MS, Ur RFX Acetaminophen, MS, Ur RFX ToxAssure Flex 23, Ur Test Result Flag Units Drug Present Gabapentin PRESENT Acetaminophen PRESENT Test Result Flag Units Ref Range Creatinine 75 mg/dL >=20 Declared Medications: Medication list was not provided. For clinical consultation, please call . No results found for: PREGAB Summary Report (Summary) Date Value Ref Range Status 12/16/2021 FINAL Final Comment: TOXASSURE COMP DRUG ANALYSIS,UR Test Result Flag Units Drug Present Gabapentin PRESENT Tizanidine PRESENT Bupropion PRESENT Hydroxybupropion PRESENT Hydroxybupropion is an expected metabolite of bupropion. Duloxetine PRESENT Fluoxetine PRESENT Norfluoxetine PRESENT Norfluoxetine is an expected metabolite of fluoxetine. Acetaminophen PRESENT Diphenhydramine PRESENT Doxylamine PRESENT Dextromethorphan PRESENT Dextrorphan/Levorphanol PRESENT Dextrorphan is an expected metabolite of dextromethorphan, an [id number] or prescription cough suppressant. Dextrorphan cannot be distinguished from the scheduled prescription medication levorphanol by the method used for analysis. Verapamil PRESENT Test Result Flag Units Ref Range Creatinine 130 mg/dL >=20 Declared Medications: Medication list was not provided. For clinical consultation, please call . REVIEW OF SYSTEMS: GENERAL: No weight loss, malaise or fevers RESPIRATORY: Negative for cough CARDIOVASCULAR: Negative for chest pain GI: No nausea, vomiting, or diarrhea. 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 Stroke due to intracerebral hemorrhage (HCC) 2018 Had an additional stroke at age 25 PAST SURGICAL HISTORY Procedure Laterality Date APPENDECTOMY CARPAL TUNNEL Left 2014 COLONOSCOPY 20's with EGD EGD TRANSORAL BIOPSY SINGLE/MULTIPLE 10/02/2015 EXCISION PILONIDAL CYST/SINUS EXTENSIVE 07/05/2010 closed ORTHOPEDICS SURGERY HX Right 12/2022 Right ROTATOR cUFF PAST SURGICAL HISTORY OF right knee surgery TONSILLECTOMY PRIMARY/SECONDARY <AGE 14 Tonsillectomy VASECTOMY UNI/BI SPX W/POSTOP SEMEN EXAMS Bilateral 05/23/2016 FAMILY HISTORY Problem Relation Age of Onset Prostate Cancer Father Hypertension Father Social History Tobacco Use Smoking status: Never Passive exposure: Never Smokeless tobacco: Never Vaping Use Vaping status: Never Used Substance Use Topics Alcohol use: Yes Comment: OCCASIONAL Drug use: No Allergies: Hydrochlorothiazide Other: See Comments Sulfamethoxazole-Tr* Unknown, Other: See Comments Acetaminophen Other: See Comments Comment:Rebound headaches Acetaminophen-Codei* Unknown Doxycycline Hives Hydrocodone Other: See Comments Kihei Juice Unknown Kihei Oil Hives, Other: See Comments Pseudoephedrine Unknown Vicodin [Hydrocodon* Mental Status Change, Itching Aripiprazole Mental Status Change Current Outpatient Medications Medication Sig pregabalin (LYRICA) 150 mg capsule Take 1 capsule by mouth three times a day for 90 days. Discontinue gabapentin cyclobenzaprine (FLEXERIL) 5 mg tablet Take 1 tablet by mouth three times a day as needed. gabapentin (NEURONTIN) 600 mg tablet Take 1 tablet by mouth three times a day for 30 days. atorvastatin (LIPITOR) 40 mg tablet 1 tablet by ORAL/FEEDING TUBE route daily at bedtime. tamsulosin (FLOMAX) 0.4 mg Take 0.4 mg by mouth once daily. lidocaine (LIDODERM) 5 % Apply 1 Patch as directed as directed. Apply 1 patch for 12 hours then remove for 12 hours ondansetron orally disintegrating (ZOFRAN ODT) 4 mg disintegrating tablet Take 1 tablet by mouth every 8 hours as needed for nausea/vomiting. docusate sodium (COLACE) 100 mg capsule Take 1 capsule by mouth twice daily. naloxone 4 mg/actuation nasal spray (NARCAN) Use 1 spray in one nostril as needed for overdose. Mayrepeat every 2 to 3 min in alternating nostrils until medical assistance is available verapamil ER (VERELAN) 240 mg 24 hr capsule Take 240 mg by mouth once daily. buPROPion XL (WELLBUTRIN XL) 300 mg 24 hr tablet TAKE 1 TABLET BY MOUTH EVERY 24 HOURS. REPLACES PREVIOUS PRESCRIPTION FOR BUPROPION 150 MG TABLET valsartan (DIOVAN) 160 mg tablet Take 160 mg by mouth every morning. cetirizine (ZYRTEC) 10 mg tablet Take 10 mg by mouth once daily. AJOVY SYRINGE 225 mg/1.[address] (PROTONIX) 40 mg tablet Take 40 mg by mouth twice daily. potassium chloride ER (K-DUR, KLOR-CON) 20 mEq tablet Take 20 mEq by mouth twice daily. NURTEC ODT 75 mg disintegrating tablet No current facility-administered medications for this visit. PHYSICAL EXAMINATION: VIDEO EXAM: (performed via video enabled technology) GENERAL: alert and appropriate, in no distress, well-hydrated, well nourished and happy, smiling, interactive HEAD: normocephalic, no abnormality or lesion noted RESPIRATORY: breathing non-labored NEUROLOGIC: no obvious deficit ASSESSMENT: Patient is stable. Chronic pain is persistent. Medications are helping Tate Baltazar to have an improved quality of life. Patient compliance with Opioid Contract: patient is currently compliant No diagnosis found. PLAN: *Pt is offered non narcotic options due to inconsistent UDS's. *According to the pt, his PCP will prescribed Gabapentin and Zanaflex-he reports being told by his pharmaicst that he has too many providers writing prescriptions for him Continue Gabapentin 600 mg tablet TID-PCP Continue Zanaflex 6 mg tablet at bedtime-PCP Continue HEP Continue to use knee brace Continue TENS unit for shoulder pain Continue with PT as scheduled Continue to follow-up with Dr. Gotti - S/P right rotator cuff repair PA right shoulder injection-last done on 10/01/22- 60% relief that lasted for 2 months-scheduled for10/26/23 PA right knee injection PRN - On 06/30/23 he had a right knee injection and received 50% relief and it lasted for 1 month-Scheduled for 10/20/23 at 11:45 Discussed Medtronic SCS trial - declining Previously referred to Mental Health provider Dr.Gregg Doan at [facility] for SCStim trial options -pt is declining Reduce alcohol consumption Previously ordered right elbow x-ray-pt still needs to get done A prescription for narcan (naloxone) has been offered to the patient F/u with PCP Follow-up in 5 months -in office visit Chantell Barr APRN.COIL BUILDER Patient states that the gabapentin is not providing much benefit. I will try him on Lyrica instead. Due to left-sided rib cage pain, will obtain left rib x-rays, thoracic x-rays, and also low back x-rays due to persistent low back pain. Patient sees a chiropractor, did physical therapy, does independent excise program, and has a TENS unit at home. Discussed option of baby to see Dr. Boateng for implantation of an intrathecal pump. This something she was considering doing before she left. If indeed he gets a pump placed, it can then be managed locally here. Patient will follow-up with Chantell via virtual visit in 2 to 3 months. I would recommend a virtual visit since transportation is difficult for the patient and he does live in [place]. * Chantell Barr APRN.CNP - 02/03/2024 11:30 AM EDT This video visit was performed via [email or web address] Video Visit. Patient consented to receive health care services via virtual visit for this encounter Provider Location: Non-[facility] Patient Location: Patient Home or Place of Residence I have communicated my name and active licensure. The patient's identity and physical location wereverified at the time of this visit. Either the patient or their legal client account representative has been informed of the risks and benefits of -- and alternatives to -- treatment through a remote evaluation andconsents to proceed with the evaluation remotely. Chief Complaint: Pain History of Present Illness: Tate Baltazar is a 48 year old year old male being seen at [facility] for a evaluation and/or management of his chronic pain. The patient last had a visit on 12/03/23. He states that since the last visit symptoms have been stable, persistent. He is requesting a right knee injection, Synvisc Gel Injection and a right shoulder injection. He would like a referralto see Dr. Boateng for a ITP pump trial. The pain is currently described as follows: Location: lower back, migraines right arm, and right leg, right knee Radiation: right leg and right foot Intensity:9/10 Timing:constant Character: sharp, throbbing, and burning Numbness/tingling: yes, rt leg and right arm From elbow to hand Worsening factors: Increased activity Relieving factors: meds falls:denies Patient denies any bowel or bladder dysfunction. Since the last office visit the patients medical history has not changed. The patient went to the ER on 09/09 and again on 09/12/23 and admitted for 1 day due to abd pain. The patient is currently prescribed Lyrica and Zanaflex from our office. The last doses were taken this morning. The medications are partially effective. The patient denies nausea, vomiting, constipation,rashes, drowsiness,weight gain, weight loss,dizziness,and fatigue. The pt stated that he went back to the Gabapentin and is not taking the Lyrica. The OARRS report has been reviewed and is consistent with the patients medical history and medication intake. Last UDS: UDS STILL INCONSISTENT, ABSENT PERCOCET ON LAST 2 UDS. NO FURTHER NARCOTICS. PATIENT NEEDS TO ASK SURGEON FOR ACUTE POST-OP PAIN MEDS. Summary Report Date Value Ref Range Status 12/09/2022 FINAL Final Comment: Gabapentin, MS, Ur RFX Acetaminophen, MS, Ur RFX ToxAssure Flex 23, Ur Test Result Flag Units Drug Present Gabapentin PRESENT Acetaminophen PRESENT Test Result Flag Units Ref Range Creatinine 75 mg/dL >=20 Declared Medications: Medication list was not provided. For clinical consultation, please call . No results found for: PREGAB Summary Report (Summary) Date Value Ref Range Status 12/16/2021 FINAL Final Comment: TOXASSURE COMP DRUG ANALYSIS,UR Test Result Flag Units Drug Present Gabapentin PRESENT Tizanidine PRESENT Bupropion PRESENT Hydroxybupropion PRESENT Hydroxybupropion is an expected metabolite of bupropion. Duloxetine PRESENT Fluoxetine PRESENT Norfluoxetine PRESENT Norfluoxetine is an expected metabolite of fluoxetine. Acetaminophen PRESENT Diphenhydramine PRESENT Doxylamine PRESENT Dextromethorphan PRESENT Dextrorphan/Levorphanol PRESENT Dextrorphan is an expected metabolite of dextromethorphan, an esfk-fuk-[id number] or prescription cough suppressant. Dextrorphan cannot be distinguished from the scheduled prescription medication levorphanol by the method used for analysis. Verapamil PRESENT Test Result Flag Units Ref Range Creatinine 130 mg/dL >=20 Declared Medications: Medication list was not provided. For clinical consultation, please call . REVIEW OF SYSTEMS: GENERAL: No weight loss, malaise or fevers RESPIRATORY: Negative for cough CARDIOVASCULAR: Negative for chest pain GI: No nausea, vomiting, or diarrhea. 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 Stroke due to intracerebral hemorrhage (HCC) 2018 Had an additional stroke at age 25 PAST SURGICAL HISTORY Procedure Laterality Date APPENDECTOMY CARPAL TUNNEL Left 2014 COLONOSCOPY 20's with EGD EGD TRANSORAL BIOPSY SINGLE/MULTIPLE 10/02/2015 EXCISION PILONIDAL CYST/SINUS EXTENSIVE 07/05/2010 closed ORTHOPEDICS SURGERY HX Right 12/2022 Right ROTATOR cUFF PAST SURGICAL HISTORY OF right knee surgery TONSILLECTOMY PRIMARY/SECONDARY <AGE 14 Tonsillectomy VASECTOMY UNI/BI SPX W/POSTOP SEMEN EXAMS Bilateral 05/23/2016 FAMILY HISTORY Problem Relation Age of Onset Prostate Cancer Father Hypertension Father Social History Tobacco Use Smoking status: Never Passive exposure: Never Smokeless tobacco: Never Vaping Use Vaping status: Never Used Substance Use Topics Alcohol use: Yes Comment: OCCASIONAL Drug use: No Allergies: Hydrochlorothiazide Other: See Comments Sulfamethoxazole-Tr* Unknown, Other: See Comments Acetaminophen Other: See Comments Comment:Rebound headaches Acetaminophen-Codei* Unknown Doxycycline Hives Hydrocodone Other: See Comments Kihei Juice Unknown Kihei Oil Hives, Other: See Comments Pseudoephedrine Unknown Vicodin [Hydrocodon* Mental Status Change, Itching Aripiprazole Mental Status Change Current Outpatient Medications Medication Sig pregabalin (LYRICA) 150 mg capsule Take 1 capsule by mouth three times a day for 90 days. Discontinue gabapentin cyclobenzaprine (FLEXERIL) 5 mg tablet Take 1 tablet by mouth three times a day as needed. gabapentin (NEURONTIN) 600 mg tablet Take 1 tablet by mouth three times a day for 30 days. atorvastatin (LIPITOR) 40 mg tablet 1 tablet by ORAL/FEEDING TUBE route daily at bedtime. tamsulosin (FLOMAX) 0.4 mg Take 0.4 mg by mouth once daily. lidocaine (LIDODERM) 5 % Apply 1 Patch as directed as directed. Apply 1 patch for 12 hours then remove for 12 hours ondansetron orally disintegrating (ZOFRAN ODT) 4 mg disintegrating tablet Take 1 tablet by mouth every 8 hours as needed for nausea/vomiting. docusate sodium (COLACE) 100 mg capsule Take 1 capsule by mouth twice daily. naloxone 4 mg/actuation nasal spray (NARCAN) Use 1 spray in one nostril as needed for overdose. Mayrepeat every 2 to 3 min in alternating nostrils until medical assistance is available verapamil ER (VERELAN) 240 mg 24 hr capsule Take 240 mg by mouth once daily. buPROPion XL (WELLBUTRIN XL) 300 mg 24 hr tablet TAKE 1 TABLET BY MOUTH EVERY 24 HOURS. REPLACES PREVIOUS PRESCRIPTION FOR BUPROPION 150 MG TABLET valsartan (DIOVAN) 160 mg tablet Take 160 mg by mouth every morning. cetirizine (ZYRTEC) 10 mg tablet Take 10 mg by mouth once daily. AJOVY SYRINGE 225 mg/1.[address] (PROTONIX) 40 mg tablet Take 40 mg by mouth twice daily. potassium chloride ER (K-DUR, KLOR-CON) 20 mEq tablet Take 20 mEq by mouth twice daily. NURTEC ODT 75 mg disintegrating tablet No current facility-administered medications for this visit. PHYSICAL EXAMINATION: VIDEO EXAM: (performed via video enabled technology) GENERAL: alert and appropriate, in no distress, well-hydrated, well nourished and happy, smiling, interactive HEAD: normocephalic, no abnormality or lesion noted RESPIRATORY: breathing non-labored NEUROLOGIC: no obvious deficit ASSESSMENT: Patient is stable. Chronic pain is persistent. Medications are helping Tate Baltazar to have an improved quality of life. Patient compliance with Opioid Contract: patient is currently compliant Encounter Diagnosis ICD-10-CM 1. Chronic pain syndrome G89.4 2. Primary osteoarthritis of right knee M17.11 3. Intervertebral disc disorder with radiculopathy of lumbar region M51.16 4. 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 DDD (degenerative disc disease), lumbar M51.36 7. Other chronic pain G89.29 8. Radiculopathy, lumbar region [M54.16 (ICD-10-CM)] M54.16 9. Myofascial pain syndrome M79.18 10. Chronic right shoulder pain M25.511 G89.29 11. Pain in right elbow M25.521 PLAN: *Pt is offered non narcotic options due to inconsistent UDS's. Patient sees a chiropractor, did physical therapy, does independent excise program, and has a TENS unit at home Discussed left rib x-rays, right elbow, thoracic x-rays, and low back x-rays Continue Gabapentin 600 mg tablet TID Continue Zanaflex 6 mg tablet at bedtime Continue HEP Continue to use knee brace Continue TENS unit for shoulder pain Continue with PT as scheduled Continue to follow-up with Dr. Gotti - S/P right rotator cuff repair PA right shoulder injection-last done on 10/26/23- 80% relief that lasted for 2 1/2 months-scheduledfor 02/23/24 at 9:00 a.m. PA right knee injection - On 11/09/23 he had a right knee injection(Synvisc) and received 75% reliefand it lasted for 2 1/2 months-Scheduled for 02/16/24 at 9:00 a.m. Discussed Medtronic SCS trial - declining Will refer pt to a Mental Health provider for a mental health exam for an ITP pump trial-pt to callwith the name of who he would like to see Referral to Dr. Boateng per his request Reduce alcohol consumption A prescription for narcan (naloxone) has been offered to the patient F/u with PCP Follow-up in 3 months -in office visit Chantell Barr APRN.CNP [facility] NoteHNO ID: [id number] Author: CHANTELL ABRR APRN.CNP Service: ? Author Type: Nurse Practitioner Type: Progress Notes Filed: 02/03/2024 13:43 Note Text: This video visit was performed via [email or web address] Video Visit. Patient consented to receive health care services via virtual visit for this encounter Provider Location: [facility] Patient Location: Patient Home or Place of Residence I have communicated my name and active licensure. The patient's identity and physical location were verified at the time of this visit. Either the patient or their legal client account representative has been informed of the risks and benefits of -- and alternatives to -- treatment through a remote evaluation and consents to proceed with the evaluation remotely. Chief Complaint: Pain History of Present Illness: Tate Baltazar is a 48 year old year old male being seen at [facility] for a evaluation and/or management of his chronic pain. The patient last had a virtual visit on 08/19/23. He is scheduled for a virtual visit today. He states that since the last visit symptoms have been stable. He still needs to get the right elbow x-ray done. He plans on getting a right shoulder injection in October. On 06/30/23 he had a right knee injection and received 50% relief and it lasted for 1 month. He is requesting a right knee injection, he states the steroids are not helping his knee pain and he would like to receive a Synvisc Gel Injection. The pain is currently described as follows: Location: lower back, migraines right arm, and right leg, right knee Radiation: right leg and right foot Intensity:9/10 Timing:constant Character: sharp, throbbing, and burning Numbness/tingling: yes, rt leg and right arm From elbow to hand Worsening factors: Increased activity Relieving factors: meds falls:denies Patient denies any bowel or bladder dysfunction. Since the last office visit the patients medical history has not changed. The patient went to the ER on 09/09 and again on 09/12/23 and admitted for 1 day due to abd pain. The patient is currently prescribed Gabapentin and Zanaflex from our office. The last doses were taken this morning. The medications are partially effective. The patient denies nausea, vomiting, constipation,rashes, drowsiness,weight gain, weight loss,dizziness,and fatigue. Lidocaine Patches are not helping d/t not sticking. The OARRS report has been reviewed and is consistent with the patients medical history and medication intake. Last UDS: UDS STILL INCONSISTENT, ABSENT PERCOCET ON LAST 2 UDS. NO FURTHER NARCOTICS. PATIENT NEEDS TO ASK SURGEON FOR ACUTE POST-OP PAIN MEDS. Summary Report Date Value Ref Range Status 12/09/2022 FINAL Final Comment: Gabapentin, MS, Ur RFX Acetaminophen, MS, Ur RFX ToxAssure Flex 23, Ur Test Result Flag Units Drug Present Gabapentin PRESENT Acetaminophen PRESENT Test Result Flag Units Ref Range Creatinine 75 mg/dL >=20 Declared Medications: Medication list was not provided. For clinical consultation, please call . No results found for: PREGAB Summary Report (Summary) Date Value Ref Range Status 12/16/2021 FINAL Final Comment: TOXASSURE COMP DRUG ANALYSIS,UR Test Result Flag Units Drug Present Gabapentin PRESENT Tizanidine PRESENT Bupropion PRESENT Hydroxybupropion PRESENT Hydroxybupropion is an expected metabolite of bupropion. Duloxetine PRESENT Fluoxetine PRESENT Norfluoxetine PRESENT Norfluoxetine is an expected metabolite of fluoxetine. Acetaminophen PRESENT Diphenhydramine PRESENT Doxylamine PRESENT Dextromethorphan PRESENT Dextrorphan/Levorphanol PRESENT Dextrorphan is an expected metabolite of dextromethorphan, an [id number] or prescription cough suppressant. Dextrorphan cannot be distinguished from the scheduled prescription medication levorphanol by the method used for analysis. Verapamil PRESENT Test Result Flag Units Ref Range Creatinine 130 mg/dL >=20 Declared Medications: Medication list was not provided. For clin (more content not included)...[facility]09-18-2024 NoteHNO ID: [id number] Author: CHANTELL BARR APRN.COIL BUILDER Service: ? Author Type: Nurse Practitioner Type: Progress Notes Filed: 02/03/2024 13:43 Note Text: This video visit was performed via [employer] Video Visit. Patient consented to receive health care services via virtual visit for this encounter Provider Location: Non-[facility] Patient Location: Patient Home or Place of Residence I have communicated my name and active licensure. The patient's identity and physical location were verified at the time of this visit. Either the patient or their legal client account representative has been informed of the risks and benefits of -- and alternatives to -- treatment through a remote evaluation and consents to proceed with the evaluation remotely. Chief Complaint: Pain History of Present Illness: Tate Baltazar is a 48 year old year old male being seen at [facility] for a evaluation and/or management of his chronic pain. The patient last had a visit on 12/03/23. He states that since the last visit symptoms have been stable, persistent. He is requesting a right knee injection, Synvisc Gel Injection and a right shoulder injection. He would like a referral to see Dr. Boateng for a ITP pump trial. The pain is currently described as follows: Location: lower back, migraines right arm, and right leg, right knee Radiation: right leg and right foot Intensity:9/10 Timing:constant Character: sharp, throbbing, and burning Numbness/tingling: yes, rt leg and right arm From elbow to hand Worsening factors: Increased activity Relieving factors: meds falls:denies Patient denies any bowel or bladder dysfunction. Since the last office visit the patients medical history has not changed. The patient went to the ER on 09/09 and again on 09/12/23 and admitted for 1 day due to abd pain. The patient is currently prescribed Lyrica and Zanaflex from our office. The last doses were taken this morning. The medications are partially effective. The patient denies nausea, vomiting, constipation,rashes, drowsiness,weight gain, weight loss,dizziness,and fatigue. The pt stated that he went back to the Gabapentin and is not taking the Lyrica. The OARRS report has been reviewed and is consistent with the patients medical history and medication intake. Last UDS: UDS STILL INCONSISTENT, ABSENT PERCOCET ON LAST 2 UDS. NO FURTHER NARCOTICS. PATIENT NEEDS TO ASK SURGEON FOR ACUTE POST-OP PAIN MEDS. Summary Report Date Value Ref Range Status 12/09/2022 FINAL Final Comment: Gabapentin, MS, Ur RFX Acetaminophen, MS, Ur RFX ToxAssure Flex 23, Ur Test Result Flag Units Drug Present Gabapentin PRESENT Acetaminophen PRESENT Test Result Flag Units Ref Range Creatinine 75 mg/dL >=20 Declared Medications: Medication list was not provided. For clinical consultation, please call . No results found for: PREGAB Summary Report (Summary) Date Value Ref Range Status 12/16/2021 FINAL Final Comment: TOXASSURE COMP DRUG ANALYSIS,UR Test Result Flag Units Drug Present Gabapentin PRESENT Tizanidine PRESENT Bupropion PRESENT Hydroxybupropion PRESENT Hydroxybupropion is an expected metabolite of bupropion. Duloxetine PRESENT Fluoxetine PRESENT Norfluoxetine PRESENT Norfluoxetine is an expected metabolite of fluoxetine. Acetaminophen PRESENT Diphenhydramine PRESENT Doxylamine PRESENT Dextromethorphan PRESENT Dextrorphan/Levorphanol PRESENT Dextrorphan is an expected metabolite of dextromethorphan, an edhl-tvs-jytwmda or prescription cough suppressant. Dextrorphan cannot be distinguished from the scheduled prescription medication levorphanol by the method used for analysis. Verapamil PRESENT Test Result Flag Units Ref Range Creatinine 130 mg/dL >=20 Declared Medications: Medication list was not provided. For clinical consultation, please call . REVIEW OF SYSTEMS: GENERAL: No weight loss, malaise or fevers RESPIRATORY: Negative (more content not included)...[facility] 12-07-2023 Telephone encounter Note* Telephone Encounter - Pratibha Deras RN - 12/07/2023 9:11 AM EDT Pt called with the information below, he states that his PCP prescribed the Gabapentin and will receive refills from him. Pratibha Deras RN December 07, 2023 9:12 AM [facility]07-22-2024 Miscellaneous Notes* Telephone Encounter - Pratibha Deras RN - 12/07/2023 9:11 AM EDT Pt called with the information below, he states that his PCP prescribed the Gabapentin and will receive refills from him. Pratibha Deras RN December 07, 2023 9:12 AM * Telephone Encounter - Jennifer Munroe MD - 12/07/2023 8:39 AM EDT No, simply just change management consultant to gabapentin. If he needs a refill of this, please find out the dosageand frequency. * Telephone Encounter - Pratibha Deras RN - 12/07/2023 8:36 AM EDT Pt called in today stating that he cannot take the lyrica, he has no appetite and is very sleepy. He wants to go back on the gabapentin. He was changed at the last appt. on 12/02. Does he need to bring the lyrica to the office for disposal? Please advise. Pratibha Deras RN December 07, 2023 8:38 AM documented in [facility] encounterA[facility] Telephone encounter Note * Telephone Encounter - Jennifer Munroe MD - 12/07/2023 8:39 AM EDT No, simply just change management consultant to gabapentin. If he needs a refill of this, please find out the dosageand frequency. [facility]07-22-2024 Telephone encounter Note* Telephone Encounter - Pratibha Deras RN - 12/07/2023 8:36 AM EDT Pt called in today stating that he cannot take the lyrica, he has no appetite and is very sleepy. He wants to go back on the gabapentin. He was changed at the last appt. on 12/02. Does he need to bring the lyrica to the office for disposal? Please advise. Pratibha Deras RN December 07, 2023 8:38 AM [facility]07-19-2024 History of Present illness Narrative* Frederick Plasencia CT - 12/04/2023 10:00 AM EDT Radiology Service Progress Note PATIENT NAME: Tate Baltazar DATE OF SERVICE: December 04, 2023 TIME: 10:22 AM PATIENT IDENTITY VERIFICATION COMPLETED USING TWO (2) IDENTIFIERS: Name and Date of confirmedby patient verbally. FALL SCREENING: Has the patient had 2 falls in the last year or 1 fall with injury or currently using an Ambulatory Assistive Device (Walker, Cane, Wheelchair, Crutches, etc.)? No PATIENT GENDER DATA: Male PATIENT RELEVANT IMPLANT DATA REVIEWED: Not Applicable PATIENT PRESENTS WITH AN IMPLANTABLE OR ATTACHED WINE CELLAR STOCK CLERK: No RADIOLOGY DEPARTMENT: General X-ray: Exam(s) Completed: Rib X-Ray: Right Spine X-Ray(s): Thoracic and Lumbar AP / LAT / L5-S1 Upper Extremity X-Ray(s): Elbow, right PERIPHERAL IV DATA: Not applicable SIGNED BY: DARSHAN Reyes December 04, 2023 10:22 AM documented in this encounterAult[facility]07-[facility] History of Present illness Narrative* Jennifer Munroe MD - 12/03/2023 11:00 AM EDT Dragon was used to dictate this note and therefore there may be some typographical errors. I attest to the fact that I spent a total of 16 min with the patient to include: Face to face time and non face to face time such as: Reviewing test's, reviewing medical records, reviewing imaging studies, ordering tests, etc. The patient was last seen on 11/09/2023 for right knee Synvisc 1 injection. 2 weeks earlier on 10/25/2013, patient had a right shoulder corticosteroid injection. He returns today for follow-up visit. PE: Alert and oriented in some discomfort. Mood and affect within normal limits. Vital signs indicated.Tenderness palpation along the left posterior lateral rib cage and towards the left thoracic spine. Dx: Right shoulder osteoarthritis and degenerative changes, right shoulder pain, decreased right upper extremity range of motion, right knee osteoarthritis, right knee degenerative changes, right knee pain, gait disturbance, history of RSD in the past, history of CVA, history of migraine headaches, hypertension, GERD, chronic pain syndrome, history of abnormal urine drug screens per note from Dr. Boateng 12/09/2022. Plan: As above, patient was last seen on 11/09/2023 for right knee Synvisc 1 injection. 2 weeks earlier on 10/25/2013, patient had a right shoulder corticosteroid injection. Patient is also being maintained on 600 mg of gabapentin [address] times [address] day [address] Dr[address] Boateng and her staff. OARRS checked. Patient states that the gabapentin is not providing much benefit. I will try him on Lyrica instead. Due to left-sided rib cage pain, will obtain left rib x-rays, thoracic x-rays, and also low back x-rays due to persistent low back pain. Patient sees a chiropractor, did physical therapy, does independent excise program, and has a TENS unit at home. Discussed option of baby to see Dr. Boateng for implantation of an intrathecal pump. This something she was considering doing before she left. If indeed he gets a pump placed, it can then be managed locally here. Patient will follow-up with Chantell via virtual visit in 2 to 3 months. I would recommend a virtual visit since transportation is difficult for the patient and he does live in [place]. documented in this encounterA[facility]man [facility]06-27-[facility] NoteHNO ID: [id number] Author: ELOISE HEBERT PT Service: ? Author Type: Physical Therapist Type: Progress Notes Filed: 11/12/2023 15:15 Note Text: 11/12/2023 [facility] PHYSICAL THERAPY DISCONTINUANCE OF CARE Plan of Care Period: Start of Care Date: 01/16/23 Last Visit Date: 04/23/2023 Therapy Program: The following is a summary of the interventions provided for this episode of care; Therapeutic exercise and Manual therapy Assessment: The following is the goal status: Goals for Episode of Care: created on 01/16/23 through 05/30/23 Updated 03/31/23 [place] in home exercise program. ONGOING Patient will decrease pain rating by 2 points to meet minimal clinical important difference for numeric pain rating scale. NOT MET Patient will increase active ROM of R shoulder elevation to 160 to allow pt to to improve performance of ADLs. PARTIALLY MET Patient will demonstrate increase in RUE strength to 4+/5 during manual muscle testing in order to improve function for prior functional tasks. NOT ASSESSED Perform dressing without pain. PROGRESSING Patient Goals: Improve mobility, get back to motorcycle riding Based on the most recent progress report, patient was progressing slower than expected toward functional goals based on home exercise program compliance and appointment compliance. Reason for Discontinuation of Care: Patient has not returned to therapy or scheduled additional follow-up appointments. [facility] Surgical operation note* Operative Report - Jennifer Munroe MD - 11/09/2023 10:58 AM EDT PROCEDURE: Knee Injection. RIGHT DATE OF SERVICE: November 09, 2023 PREPROCEDURE DIAGNOSIS: Right knee osteoarthritis, right knee degenerative changes, right knee pain ANESTHESIA: Local COMPLICATIONS: None CONSENT: Risks of the procedure including bleeding, infection, nerve damage, seizure, abscess formation, hematoma formation, headache, failure of the pain to improve and potential worsening of the pain, were explained in full to the patient who verbalized understanding and wishes to proceed with the injection at this time. Written informed consent was thereby obtained. BRIEF HISTORY: See Chantell's last office note of 10/01/2023. DESCRIPTION OF PROCEDURE: After written informed consent was obtained as above, the patient was placed in the sitting position. The right knee was flexed and the joint space was identified via palpation. The skin was sterilely prepped with ChloraPrep. A sterile drape was applied. Local anesthetic of 1%Lidocaine, 5 ccs was used as local, using a 25 gauge 1 inch needle. A 22-gauge 3.5 inch spinal needle was advanced toward the medial aspect of the knee joint space. Negative aspiration throughout. A total of 6 cc Synvisc 1 (#[id number]; exp 06/17/26) was injected easily There were no complications noted upon injection. The needle tip was removed intact. The patient remained neurovascularly intact both pre- and postprocedure. The area was wiped clean and a Band-Aid was applied as appropriate. The patient was transferred to the recovery area where their VSS remained stable. After a period ofobservation, the patient was discharged home in good condition. COMMENTS: Repeat as needed [facility] Work Phone: [phone] 255-845006-24-2024 Surgical operation note* Operative Report - Jennifer Munroe MD - 11/09/2023 10:58 AM EDT PROCEDURE: Knee Injection. RIGHT DATE OF SERVICE: November 09, 2023 PREPROCEDURE DIAGNOSIS: Right knee osteoarthritis, right knee degenerative changes, right knee pain ANESTHESIA: Local COMPLICATIONS: None CONSENT: Risks of the procedure including bleeding, infection, nerve damage, seizure, abscess formation, hematoma formation, headache, failure of the pain to improve and potential worsening of the pain, were explained in full to the patient who verbalized understanding and wishes to proceed with the injection at this time. Written informed consent was thereby obtained. BRIEF HISTORY: See Chantell's last office note of 10/01/2023. DESCRIPTION OF PROCEDURE: After written informed consent was obtained as above, the patient was placed in the sitting position. The right knee was flexed and the joint space was identified via palpation. The skin was sterilely prepped with ChloraPrep. A sterile drape was applied. Local anesthetic of 1%Lidocaine, 5 ccs was used as local, using a 25 gauge 1 inch needle. A 22-gauge 3.5 inch spinal needle was advanced toward the medial aspect of the knee joint space. Negative aspiration throughout. A total of 6 cc Synvisc 1 (#[id number]; exp 06/17/26) was injected easily There were no complications noted upon injection. The needle tip was removed intact. The patient remained neurovascularly intact both pre- and postprocedure. The area was wiped clean and a Band-Aid was applied as appropriate. The patient was transferred to the recovery area where their VSS remained stable. After a period ofobservation, the patient was discharged home in good condition. COMMENTS: Repeat as needed documented in this encounterAultman [facility]rville [facility]05-16-2024 Instructions* Patient Instructions* Chantell Barr APRN.COIL BUILDER - 10/01/2023 1:30 PM EDT *Pt is offered non narcotic options due to inconsistent UDS's. *According to the pt, his PCP will prescribed Gabapentin and Zanaflex-he reports being told by his pharmaicst that he has too many providers writing prescriptions for him Continue Gabapentin 600 mg tablet TID-PCP Continue Zanaflex 6 mg tablet at bedtime-PCP Continue HEP Continue to use knee brace Continue TENS unit for shoulder pain Continue with PT as scheduled Continue to follow-up with Dr. Gotti - S/P right rotator cuff repair PA right shoulder injection-last done on 10/01/22- 60% relief that lasted for 2 months-scheduled for10/26/23 PA right knee injection PRN - On 06/30/23 he had a right knee injection and received 50% relief and it lasted for 1 month-Scheduled for 10/20/23 at 11:45 Discussed [employer] SCS trial - declining Previously referred to Mental Health provider Dr.Gregg Doan at [facility] for SCStim trial options -pt is declining Reduce alcohol consumption Previously ordered right elbow x-ray-pt still needs to get done A prescription for narcan (naloxone) has been offered to the patient F/u with PCP Follow-up in 5 months -in office visit Chantell Barr APRN.DEEPA documented in this encounterAultman [facility]05-16-2024 Telephone encounter Note * Telephone Encounter - Helena Espino MA - 10/01/2023 10:47 AM EDT Items addressed in this encounter: Telephone Encounter I called patient due to him not being arrived for visit, I helped patient get arrived for visit. Able to close encounter. Helena Espino MA October 01, 2023 10:47 AM 10:47 AM [facility]05-16-2024 Miscellaneous Notes* Telephone Encounter - Helena Espino MA - 10/01/2023 10:47 AM EDT Items addressed in this encounter: Telephone Encounter I called patient due to him not being arrived for visit, I helped patient get arrived for visit. Able to close encounter. Helena Espino MA October 01, 2023 10:47 AM 10:47 AM documented in this encounterAultman [facility]05-16-2024 History of Present illness Narrative* Momo Chantell E, THANG.COIL BUILDER - 10/01/2023 10:45 AM EDT This video visit was performed via [email or web address] Video Visit. Patient consented to receive health care services via virtual visit for this encounter Provider Location: [facility] Patient Location: Patient Home or Place of Residence I have communicated my name and active licensure. The patient's identity and physical location wereverified at the time of this visit. Either the patient or their legal client account representative has been informed of the risks and benefits of -- and alternatives to -- treatment through a remote evaluation andconsents to proceed with the evaluation remotely. Chief Complaint: Pain History of Present Illness: Tate Baltazar is a 48 year old year old male being seen at [facility] for a evaluation and/or management of his chronic pain. The patient last had a virtual visit on 08/19/23. He is scheduled for a virtual visit today. He states that since the last visit symptomshave been stable. He still needs to get the right elbow x-ray done. He plans on getting a right shoulder injection in October. On 06/30/23 he had a right knee injection and received 50% relief and it lasted for 1 month. He is requesting a right knee injection, he states the steroids are not helping hisknee pain and he would like to receive a Synvisc Gel Injection. The pain is currently described as follows: Location: lower back, migraines right arm, and right leg, right knee Radiation: right leg and right foot Intensity:9/10 Timing:constant Character: sharp, throbbing, and burning Numbness/tingling: yes, rt leg and right arm From elbow to hand Worsening factors: Increased activity Relieving factors: meds falls:denies Patient denies any bowel or bladder dysfunction. Since the last office visit the patients medical history has not changed. The patient went to the ER on 09/09 and again on 09/12/23 and admitted for 1 day due to abd pain. The patient is currently prescribed Gabapentin and Zanaflex from our office. The last doses were taken this morning. The medications are partially effective. The patient denies nausea, vomiting, constipation,rashes, drowsiness,weight gain, weight loss,dizziness,and fatigue. Lidocaine Patches are not helping d/t not sticking. The OARRS report has been reviewed and is consistent with the patients medical history and medication intake. Last UDS: UDS STILL INCONSISTENT, ABSENT PERCOCET ON LAST 2 UDS. NO FURTHER NARCOTICS. PATIENT NEEDS TO ASK SURGEON FOR ACUTE POST-OP PAIN MEDS. Summary Report Date Value Ref Range Status 12/09/2022 FINAL Final Comment: Gabapentin, MS, Ur RFX Acetaminophen, MS, Ur RFX ToxAssure Flex 23, Ur Test Result Flag Units Drug Present Gabapentin PRESENT Acetaminophen PRESENT Test Result Flag Units Ref Range Creatinine 75 mg/dL >=20 Declared Medications: Medication list was not provided. For clinical consultation, please call . No results found for: PREGAB Summary Report (Summary) Date Value Ref Range Status 12/16/2021 FINAL Final Comment: TOXASSURE COMP DRUG ANALYSIS,UR Test Result Flag Units Drug Present Gabapentin PRESENT Tizanidine PRESENT Bupropion PRESENT Hydroxybupropion PRESENT Hydroxybupropion is an expected metabolite of bupropion. Duloxetine PRESENT Fluoxetine PRESENT Norfluoxetine PRESENT Norfluoxetine is an expected metabolite of fluoxetine. Acetaminophen PRESENT Diphenhydramine PRESENT Doxylamine PRESENT Dextromethorphan PRESENT Dextrorphan/Levorphanol PRESENT Dextrorphan is an expected metabolite of dextromethorphan, an rnpg-xuq-ucfczxf or prescription cough suppressant. Dextrorphan cannot be distinguished from the scheduled prescription medication levorphanol by the method used for analysis. Verapamil PRESENT Test Result Flag Units Ref Range Creatinine 130 mg/dL >=20 Declared Medications: Medication list was not provided. For clinical consultation, please call . REVIEW OF SYSTEMS: GENERAL: No weight loss, malaise or fevers RESPIRATORY: Negative for cough CARDIOVASCULAR: Negative for chest pain GI: No nausea, vomiting, or diarrhea. 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 Stroke due to intracerebral hemorrhage (HCC) 2018 Had an additional stroke at age 25 PAST SURGICAL HISTORY Procedure Laterality Date APPENDECTOMY CARPAL TUNNEL Left 2014 COLONOSCOPY 22's with EGD EGD TRANSORAL BIOPSY SINGLE/MULTIPLE 10/02/2015 EXCISION PILONIDAL CYST/SINUS EXTENSIVE 07/05/2010 closed ORTHOPEDICS SURGERY HX Right 12/2022 Right ROTATOR cUFF PAST SURGICAL HISTORY OF right knee surgery TONSILLECTOMY PRIMARY/SECONDARY <AGE 14 Tonsillectomy VASECTOMY UNI/BI SPX W/POSTOP SEMEN EXAMS Bilateral 05/23/2016 FAMILY HISTORY Problem Relation Age of Onset Prostate Cancer Father Hypertension Father Social History Tobacco Use Smoking status: Never Passive exposure: Never Smokeless tobacco: Never Vaping Use Vaping Use: Never used Substance Use Topics Alcohol use: Yes Comment: OCCASIONAL Drug use: No Allergies: Hydrochlorothiazide Other: See Comments Sulfamethoxazole-Tr* Unknown, Other: See Comments Acetaminophen Other: See Comments Comment:Rebound headaches Acetaminophen-Codei* Unknown Doxycycline Hives Hydrocodone Other: See Comments Kihei Juice Unknown Kihei Oil Hives, Other: See Comments Pseudoephedrine Unknown Vicodin [Hydrocodon* Mental Status Change, Itching Aripiprazole Mental Status Change Current Outpatient Medications Medication Sig cyclobenzaprine (FLEXERIL) 5 mg tablet Take 1 tablet by mouth three times a day as needed. gabapentin (NEURONTIN) 600 mg tablet Take 1 tablet by mouth three times a day for 30 days. tiZANidine (ZANAFLEX) 4 mg tablet Take 1 tablet by mouth as directed. Take one in the afternoon andevening and take 2 tabs at bedtime. atorvastatin (LIPITOR) 40 mg tablet 1 tablet by ORAL/FEEDING TUBE route daily at bedtime. tamsulosin (FLOMAX) 0.4 mg Take 0.4 mg by mouth once daily. lidocaine (LIDODERM) 5 % Apply 1 Patch as directed as directed. Apply 1 patch for 12 hours then remove for 12 hours ondansetron orally disintegrating (ZOFRAN ODT) 4 mg disintegrating tablet Take 1 tablet by mouth every 8 hours as needed for nausea/vomiting. docusate sodium (COLACE) 100 mg capsule Take 1 capsule by mouth twice daily. naloxone 4 mg/actuation nasal spray (NARCAN) Use 1 spray in one nostril as needed for overdose. Mayrepeat every 2 to 3 min in alternating nostrils until medical assistance is available verapamil ER (VERELAN) 240 mg 24 hr capsule Take 240 mg by mouth once daily. buPROPion XL (WELLBUTRIN XL) 300 mg 24 hr tablet TAKE 1 TABLET BY MOUTH EVERY 24 HOURS. REPLACES PREVIOUS PRESCRIPTION FOR BUPROPION 150 MG TABLET valsartan (DIOVAN) 160 mg tablet Take 160 mg by mouth every morning. cetirizine (ZYRTEC) 10 mg tablet Take 10 mg by mouth once daily. AJOVY SYRINGE 225 mg/1.[address] (PROTONIX) 40 mg tablet Take 40 mg by mouth twice daily. potassium chloride ER (K-DUR, KLOR-CON) 20 mEq tablet Take 20 mEq by mouth twice daily. NURTEC ODT 75 mg disintegrating tablet No current facility-administered medications for this visit. PHYSICAL EXAMINATION: VIDEO EXAM: (performed via video enabled technology) GENERAL: alert and appropriate, in no distress, well-hydrated, well nourished and happy, smiling, interactive HEAD: normocephalic, no abnormality or lesion noted RESPIRATORY: breathing non-labored NEUROLOGIC: no obvious deficit ASSESSMENT: Patient is stable. Chronic pain is persistent. Medications are helping Tate Baltazar to have an improved quality of life. Patient compliance with Opioid Contract: patient is currently compliant Encounter Diagnosis ICD-10-CM 1. Primary osteoarthritis of right knee M17.11 2. Intervertebral disc disorder with radiculopathy of lumbar region M51.16 3. RSD (reflex sympathetic dystrophy) G90.50 4. FDC (current) use of 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 [Z79.891 (ICD-10-CM)] Z79.891 5. DDD (degenerative disc disease), lumbar M51.36 6. Radiculopathy, lumbar region [M54.16 (ICD-10-CM)] M54.16 7. Other chronic pain G89.29 8. Myofascial pain syndrome M79.18 9. Chronic right shoulder pain M25.511 G89.29 10. Pain in right elbow M25.521 11. Reflex sympathetic dystrophy G90.50 PLAN: *Pt is offered non narcotic options due to inconsistent UDS's. *According to the pt, his PCP will prescribed Gabapentin and Zanaflex-he reports being told by his pharmaicst that he has too many providers writing prescriptions for him Continue Gabapentin 600 mg tablet TID-PCP Continue Zanaflex 6 mg tablet at bedtime-PCP Continue HEP Continue to use knee brace Continue TENS unit for shoulder pain Continue with PT as scheduled Continue to follow-up with Dr. Gotti - S/P right rotator cuff repair PA right shoulder injection-last done on 10/01/22- 60% relief that lasted for 2 months-scheduled for10/26/23 PA right knee injection PRN - On 06/30/23 he had a right knee injection and received 50% relief and it lasted for 1 month-Scheduled for 10/20/23 at 11:45 Discussed Medtronic SCS trial - declining Previously referred to Mental Health provider Dr.Gregg Doan at [facility] for SCStim trial options -pt is declining Reduce alcohol consumption Previously ordered right elbow x-ray-pt still needs to get done A prescription for narcan (naloxone) has been offered to the patient F/u with PCP Follow-up in 5 months -in office visit Chantell Barr APRN.CNP documented [facility] encounterA[facility] Tele[facility] encounter Note * Telephone Encounter - Helena Espino MA - 09/30/2023 4:49 PM EDT Items addressed in this encounter: MyChart Encounter Soapp questionnaire sent Items addressed in this encounter: Virtual Visit Pre Check In Virtual visit precharting done Able to close encounter. Helena Espino MA September 30, 2023 4:49 PM 4:49 PM Helena Espino MA September 30, 2023 4:49 PM 4:49 PM [facility] Miscellaneous Notes* Telephone Encounter - Helena Espino MA - 09/30/2023 4:49 PM EDT Items addressed in this encounter: MyChart Encounter Soapp questionnaire sent Items addressed in this encounter: Virtual Visit Pre Check In Virtual visit precharting done Able to close encounter. Helena Espino MA September 30, 2023 4:49 PM 4:49 PM Helena Espino MA September 30, 2023 4:49 PM 4:49 PM documented in this encounterAult[facility]04-[facility] NoteHNO ID: [id number] Author: MIREYA SWEET PA-C Service: ? Author Type: Physician Environmental Programs Specialist Type: Progress Notes Filed: 08/20/2023 11:46 Note Text: REASON FOR VISIT: routine Patient accompanied by: emotional support dog--Shailesh PRINCIPAL NEUROLOGIC DIAGNOSIS: ICH and R spastic hemiparesis HISTORY OF ILLNESS: Date of onset: 10/2017 Narrative Describing Problems since last visit: He was last seen in spasticity clinic on 02/16/2023 for help with symptoms related to R spastic hemiparesis. He was instructed to increase tizanidine to and to add cyclobenzaprine for PRN use. He continues to have chronic R shoulder pain and follows with pain management. He will undergo shoulder injection at the end of the month. He's not sure which medications he's taking or why he's taking them. Cyclobenzaprine is not on his med list. He complains of spasms in the RLE, from the knee to foot. He does not have much trouble during the day, he's mostly bothered by painful spasms at night. He has shoulder pain all the time. Patient Entered Data PROMIS No data to display Spasticity NRS 12/15/2022 -- Spasticity Level 7 Spasm Scale 12/15/2022 08/14/2022 -- Spasm Frequency Spasms occurring more than once per hour Infrequent full spasms occuriung less than once per hour Spasm Severity Severe Severe Global Impression of Change No data to display Risk of falls: Yes he had two falls in May; he hit his head during one fall and spent two days in the hospital for observation when he went to the ED with a headache. There were no acute findings on MRI. Domestic Violence: Have you been hit, kicked, punched, or otherwise hurt by someone within the past year? No If so, by whom? Review of Systems PHYSICAL EXAMINATION: Mental Status: There were no deficits of cognition, language or prosody on interview. 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 Strength Right Left Shoulder abduction 4+ 5 Elbow flexion 4+ 5 Elbow extension 4+ 5 Wrist extension 5 5 Hip flexion 4+ 5 Knee flexion 4+ 5 Knee extension 5 5 Plantarflexion 4 5 Dorsiflexion 4+ 5 Spasticity Right Left Shoulder 0 0 Elbow flexors 0 0 Elbow extensors 0 0 Wrist flexors 0 0 Wrist extensors 0 0 Finger flexors 0 0 Finger extensors 0 0 Hip adductors 0 0 Knee extensors 0. 0 Knee flexors 0 0 Plantarflexors 1 0 Modified La Scale 0 - No increase in tone 1 - Slight increase in tone (catch and release at end of ROM) 1+ - Slight increase in tone, manifested by a catch, followed by minimal resistance throughout remainder (less than half of ROM) 2 - Marked increase in tone through most of the ROM, but affected part(s) easily moved 3 - Considerable increase in tone; passive movement difficult 4 - Affected part(s) rigid in flexion or extension Spasms observed: RUE: no right upper extremity spasms LUE: no left upper extremity spasms RLE: no right lower extremity spasms LLE: no left lower extremity spasms Ambulation Index Score: 2 - Abnormal gait - walks 25 ft in <10 sec without support Gait: Standard gait was normal. ASSESSMENT: History of ICH and right spastic hemiparesis:he complains of ongoing pain and spasms throughout the right side of the body. Neuro exam is notable for satisfactory strength in all extremities, mild hypertonia in the right ankle plantarflexors. Symptoms are out of proportion to clinical findings suggesting neuropathic component. We sorted out that he's taking tizanidine, and he derives benefit from the medication. He is to continue the current dose of . He was again given a prescription for cyclobenzaprine 5mg with the ability to take it up to three times daily as needed for severe spasms. He should continue following with pain management. PLAN 1. Medications as above 2. Follow up 6-12 months I spent a total of 30 minutes on the date of the service which included preparing to see the patient, [id number] patient care, completing clinical documentation, performing a medically appropriate examination, counseling and educating the patient/family/caregiver, and ordering medications, tests, or procedures. [facility]04-04-2024 Instructions* Patient Instructions* Mireya Sweet PA-C - 08/20/2023 11:24 AM EDT Flexeril (Cyclobenzaprine) 5mg Take one tab up to three times daily as needed for increased spasms. documented in this encounterA[facility]04-04-[facility] History of Present illness Narrative* Mireya Sweet PA-C - 08/20/2023 10:54 AM EDT Images from the original note were not included. REASON FOR VISIT: routine Patient accompanied by: emotional support dog--Shailesh PRINCIPAL NEUROLOGIC DIAGNOSIS: ICH and R spastic hemiparesis HISTORY OF ILLNESS: Date of onset: 10/2017 Narrative Describing Problems since last visit: He was last seen in spasticity clinic on 02/16/2023 for help with symptoms related to R spastic hemiparesis. He was instructed to increase tizanidine to8 and to add cyclobenzaprine for PRN use. He continues to have chronic R shoulder pain and follows with pain management. He will undergo shoulder injection at the end of the month. He's not sure which medications he's taking or why he's taking them. Cyclobenzaprine is not on his med list. He complains of spasms in the RLE, from the knee to foot. He does not have much trouble during the day, he's mostly bothered by painful spasms at night. He has shoulder pain all the time. Patient Entered Data PROMIS No data to display Spasticity NRS 12/15/2022 -- Spasticity Level 7 Spasm Scale 12/15/2022 08/14/2022 -- Spasm Frequency Spasms occurring more than once per hour Infrequent full spasms occuriung less thanonce per hour Spasm Severity Severe Severe Global Impression of Change No data to display Risk of falls: Yes he had two falls in May; he hit his head during one fall and spent two days in the hospital for observation when he went to the ED with a headache. There were no acute findingson MRI. Domestic Violence: Have you been hit, kicked, punched, or otherwise hurt by someone within the pastyear? No If so, by whom? Review of Systems PHYSICAL EXAMINATION: Mental Status: There were no deficits of cognition, language or prosody on interview. 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 Strength Right Left Shoulder abduction 4+ 5 Elbow flexion 4+ 5 Elbow extension 4+ 5 Wrist extension 5 5 Hip flexion 4+ 5 Knee flexion 4+ 5 Knee extension 5 5 Plantarflexion 4 5 Dorsiflexion 4+ 5 Spasticity Right Left Shoulder 0 0 Elbow flexors 0 0 Elbow extensors 0 0 Wrist flexors 0 0 Wrist extensors 0 0 Finger flexors 0 0 Finger extensors 0 0 Hip adductors 0 0 Knee extensors 0. 0 Knee flexors 0 0 Plantarflexors 1 0 Modified Al Scale 0 - No increase in tone 1 - Slight increase in tone (catch and release at end of ROM) 1+ - Slight increase in tone, manifested by a catch, followed by minimal resistance throughout remainder (less than half of ROM) 2 - Marked increase in tone through most of the ROM, but affected part(s) easily moved 3 - Considerable increase in tone; passive movement difficult 4 - Affected part(s) rigid in flexion or extension Spasms observed: RUE: no right upper extremity spasms LUE: no left upper extremity spasms RLE: no right lower extremity spasms LLE: no left lower extremity spasms Ambulation Index Score: 2 - Abnormal gait - walks 25 ft in <10 sec without support Gait: Standard gait was normal. ASSESSMENT: History of ICH and right spastic hemiparesis:he complains of ongoing pain and spasms throughout theright side of the body. Neuro exam is notable for satisfactory strength in all extremities, mild hypertonia in the right ankle plantarflexors. Symptoms are out of proportion to clinical findings suggesting neuropathic component. We sorted out that he's taking tizanidine, and he derives benefit fromthe medication. He is to continue the current dose of . He was again given a prescription for cyclobenzaprine 5mg with the ability to take it up to three times daily as needed for severe spasms.He should continue following with pain management. PLAN 1. Medications as above 2. Follow up 6-12 months I spent a total of 30 minutes on the date of the service which included preparing to see the patient, [id number] patient care, completing clinical documentation, performing a medically appropriate examination, counseling and educating the patient/family/caregiver, and ordering medications, tests,or procedures. Mireya Sweet PA-C documented in this encounterA[facility]04-03-2024 Miscellaneous Notes* Telephone Encounter - Helena Espino MA - 08/19/2023 10:40 AM EDT Items addressed in this encounter: MyChart Encounter Patient has a follow up virtual visit scheduled. Able to close encounter. Helena Espino MA August 19, 2023 10:41 AM 10:41 AM documented in this encounterA[facility]04-03-2024 Miscellaneous Notes* Telephone Encounter - Azeb Snow - 08/19/2023 8:22 AM EDT I spoke to Tate and informed him due to a mistake on my part the September 13 1:30 procedure appointment is not available. He agreed to the 2:00 appointment instead. Azeb August 19, 2023 8:24 AM documented in this encounterA[facility]man [facility]04-03-2024 Instructions* Patient Instructions* Chantell Barr, THANG.DEEPA - 08/19/2023 8:11 AM EDT *Pt is offered non narcotic options due to inconsistent UDS's. Continue Gabapentin 600 mg tablet TID Continue Zanaflex 6 mg tablet at bedtime Continue HEP Continue to use knee brace Continue TENS unit for shoulder pain Continue with PT as scheduled Continue to follow-up with Dr. Gotti - S/P right rotator cuff repair PA right shoulder injection-last done on 10/01/22- 60% relief that lasted for 2 months Schedule right knee steroidal injection PRN - last done 03/05/23- 85% relief Discussed Medtronic SCS trial - declining Previously referred to Mental Health provider Dr.Gregg Doan at [email or web address] for SCStim trial options -pt is declining Reduce alcohol consumption Previously ordered right elbow x-ray-pt still needs to get done A prescription for narcan (naloxone) has been offered to the patient F/u with PCP Follow-up in 3 months Chantell Barr APRN.CNP documented in this encounterA[facility]04-[facility]-2024 Miscellaneous Notes* Telephone Encounter - Helena Espino MA - 08/19/2023 7:46 AM EDT Items addressed in this encounter: Telephone Encounter I called pt due to not being prechecked in or arrived for visit, pt stated he forgot about visit but he would get logged in for visit. Able to close encounter. Helena Espino MA August 19, 2023 7:46 AM 7:46 AM documented in this encounterA[facility]04-03-[facility] History of Present illness Narrative* Chantell Barr APRN.CNP - 08/19/2023 7:45 AM EDT This video visit was performed via Stereobot video visit. Patient consented to receive health care services via virtual visit for this encounter [facility] Patient Location: Patient Home or Place of Residence Risks, benefits, and limitations of receiving care virtually were discussed with the patient. The patient expressed understanding and is willing to proceed. Chief Complaint: Pain History of Present Illness: Tate Baltazar is a 48 year old year old male being seen at [facility] for a evaluation and/or management of his chronic pain. The patient last had a virtual visit on 07/09/23. He is scheduled for a virtual visit today. He states that since the last visit symptoms have been stable. He still needs to get the right elbow x-ray done. He is requesting a right shoulder injection. The pain is currently described as follows: Location: lower back, migraines right arm, and right leg, right knee Radiation: right leg and right foot Intensity:9/10 Timing:constant Character: sharp, throbbing, and burning Numbness/tingling: yes, rt leg and right arm From elbow to hand Worsening factors: Increased activity Relieving factors: meds falls:couple of days ago: NO ER Patient denies any bowel or bladder dysfunction. Since the last office visit the patients medical history has not changed. The patient went to the ER on 05/31/23 and was admitted until 06/02/23 d/t pneumonia. The patient is currently prescribed Gabapentin and Zanaflex from our office. The last doses were taken last night. The medications are partially effective. The patient denies nausea, vomiting, constipation,rashes, drowsiness,weight gain, weight loss,dizziness,and fatigue. Lidocaine Patches are not helping d/t not sticking. The OARRS report has been reviewed and is consistent with the patients medical history and medication intake. Last UDS: UDS STILL INCONSISTENT, ABSENT PERCOCET ON LAST 2 UDS. NO FURTHER NARCOTICS. PATIENT NEEDS TO ASK SURGEON FOR ACUTE POST-OP PAIN MEDS. Summary Report Date Value Ref Range Status 12/09/2022 FINAL Final Comment: Gabapentin, MS, Ur RFX Acetaminophen, MS, Ur RFX ToxAssure Flex 23, Ur Test Result Flag Units Drug Present Gabapentin PRESENT Acetaminophen PRESENT Test Result Flag Units Ref Range Creatinine 75 mg/dL >=20 Declared Medications: Medication list was not provided. For clinical consultation, please call . No results found for: PREGAB Summary Report (Summary) Date Value Ref Range Status 12/16/2021 FINAL Final Comment: TOXASSURE COMP DRUG ANALYSIS,UR Test Result Flag Units Drug Present Gabapentin PRESENT Tizanidine PRESENT Bupropion PRESENT Hydroxybupropion PRESENT Hydroxybupropion is an expected metabolite of bupropion. Duloxetine PRESENT Fluoxetine PRESENT Norfluoxetine PRESENT Norfluoxetine is an expected metabolite of fluoxetine. Acetaminophen PRESENT Diphenhydramine PRESENT Doxylamine PRESENT Dextromethorphan PRESENT Dextrorphan/Levorphanol PRESENT Dextrorphan is an expected metabolite of dextromethorphan, an [id number] or prescription cough suppressant. Dextrorphan cannot be distinguished from the scheduled prescription medication levorphanol by the method used for analysis. Verapamil PRESENT Test Result Flag Units Ref Range Creatinine 130 mg/dL >=20 Declared Medications: Medication list was not provided. For clinical consultation, please call . REVIEW OF SYSTEMS: GENERAL: No weight loss, malaise or fevers RESPIRATORY: Negative for cough CARDIOVASCULAR: Negative for chest pain GI: No nausea, vomiting, or diarrhea. 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 Stroke due to intracerebral hemorrhage (HCC) 2018 Had an additional stroke at age 25 PAST SURGICAL HISTORY Procedure Laterality Date APPENDECTOMY CARPAL TUNNEL Left 2014 COLONOSCOPY 22's with EGD EGD TRANSORAL BIOPSY SINGLE/MULTIPLE 10/02/2015 EXCISION PILONIDAL CYST/SINUS EXTENSIVE 07/05/2010 closed ORTHOPEDICS SURGERY HX Right 12/2022 Right ROTATOR cUFF PAST SURGICAL HISTORY OF right knee surgery TONSILLECTOMY PRIMARY/SECONDARY <AGE 14 Tonsillectomy VASECTOMY UNI/BI SPX W/POSTOP SEMEN EXAMS Bilateral 05/23/2016 FAMILY HISTORY Problem Relation Age of Onset Prostate Cancer Father Hypertension Father Social History Tobacco Use Smoking status: Never Passive exposure: Never Smokeless tobacco: Never Vaping Use Vaping Use: Never used Substance Use Topics Alcohol use: Yes Comment: OCCASIONAL Drug use: No Allergies: Hydrochlorothiazide Other: See Comments Sulfamethoxazole-Tr* Unknown, Other: See Comments Acetaminophen Other: See Comments Comment:Rebound headaches Acetaminophen-Codei* Unknown Doxycycline Hives Hydrocodone Other: See Comments Kihei Juice Unknown Kihei Oil Hives, Other: See Comments Pseudoephedrine Unknown Vicodin [Hydrocodon* Mental Status Change, Itching Aripiprazole Mental Status Change Current Outpatient Medications Medication Sig tiZANidine (ZANAFLEX) 4 mg tablet Take 1 tablet by mouth as directed. Take one in the afternoon andevening and take 2 tabs at bedtime. gabapentin (NEURONTIN) 600 mg tablet Take 1 tablet by mouth three times a day for 90 days. Do not start before July 19, 2023. atorvastatin (LIPITOR) 40 mg tablet 1 tablet by ORAL/FEEDING TUBE route daily at bedtime. tamsulosin (FLOMAX) 0.4 mg Take 0.4 mg by mouth once daily. lidocaine (LIDODERM) 5 % Apply 1 Patch as directed as directed. Apply 1 patch for 12 hours then remove for 12 hours ondansetron orally disintegrating (ZOFRAN ODT) 4 mg disintegrating tablet Take 1 tablet by mouth every 8 hours as needed for nausea/vomiting. docusate sodium (COLACE) 100 mg capsule Take 1 capsule by mouth twice daily. naloxone 4 mg/actuation nasal spray (NARCAN) Use 1 spray in one nostril as needed for overdose. Mayrepeat every 2 to 3 min in alternating nostrils until medical assistance is available verapamil ER (VERELAN) 240 mg 24 hr capsule Take 240 mg by mouth once daily. buPROPion XL (WELLBUTRIN XL) 300 mg 24 hr tablet TAKE 1 TABLET BY MOUTH EVERY 24 HOURS. REPLACES PREVIOUS PRESCRIPTION FOR BUPROPION 150 MG TABLET valsartan (DIOVAN) 160 mg tablet Take 160 mg by mouth every morning. cetirizine (ZYRTEC) 10 mg tablet Take 10 mg by mouth once daily. AJOVY SYRINGE 225 mg/1.[address] (PROTONIX) 40 mg tablet Take 40 mg by mouth twice daily. potassium chloride ER (K-DUR, KLOR-CON) 20 mEq tablet Take 20 mEq by mouth twice daily. NURTEC ODT 75 mg disintegrating tablet No current facility-administered medications for this visit. PHYSICAL EXAMINATION: VIDEO EXAM: (performed via video enabled technology) GENERAL: alert and appropriate, in no distress, well-hydrated, well nourished and happy, smiling, interactive HEAD: normocephalic, no abnormality or lesion noted RESPIRATORY: breathing non-labored NEUROLOGIC: no obvious deficit ASSESSMENT: Patient is stable. Chronic pain is persistent. Medications are helping Tate Baltazar to have an improved quality of life. Patient compliance with Opioid Contract: patient is currently compliant Encounter Diagnosis ICD-10-CM 1. Primary osteoarthritis of right knee M17.11 2. DDD (degenerative disc disease), lumbar M51.36 3. Intervertebral disc disorder with radiculopathy of lumbar region M51.16 4. Other chronic pain G89.29 5. RSD (reflex sympathetic dystrophy) G90.50 6. FDC (current) use of 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 [Z79.891 (ICD-10-CM)] Z79.891 7. Radiculopathy, lumbar region [M54.16 (ICD-10-CM)] M54.16 8. Myofascial pain syndrome M79.18 9. Reflex sympathetic dystrophy G90.50 PLAN: *Pt is offered non narcotic options due to inconsistent UDS's. Continue Gabapentin 600 mg tablet TID Continue Zanaflex 6 mg tablet at bedtime Continue HEP Continue to use knee brace Continue TENS unit for shoulder pain Continue with PT as scheduled Continue to follow-up with Dr. Ana María Gong S/P right rotator cuff repair PA right shoulder injection-last done on 10/01/22- 60% relief that lasted for 2 months Schedule right knee steroidal injection PRN - last done 03/05/23- 85% relief Discussed Medtronic SCS trial - declining Previously referred to Mental Health provider Dr.Gregg Doan at [email or web address] for SCStim trial options -pt is declining Reduce alcohol consumption Previously ordered right elbow x-ray-pt still needs to get done A prescription for narcan (naloxone) has been offered to the patient F/u with PCP Follow-up in 3 months Chantell Barr APRN.CNP documented in this encounterAult[facility]02-[facility]24 Miscellaneous Notes* Telephone Encounter - Helena Espino MA - 07/09/2023 11:29 AM EST Items addressed in this encounter: MyChart Encounter I scheduled pt a 1 month follow up virtual visit with Chantell. Able to close encounter. Helena Espino MA July 09, 2023 11:29 AM 11:29 AM documented in this encounterAultman [facility]02-22-2024 Instructions* Patient Instructions* Chantell Barr APRN.CNP - 07/09/2023 10:52 AM EST *Pt is offered non narcotic options due to inconsistent UDS's. Continue Gabapentin 600 mg tablet TID Continue Zanaflex 6 mg tablet at bedtime Continue HEP Continue to use knee brace Continue TENS unit for shoulder pain Continue with PT as scheduled Continue to follow-up with Dr. Ana María Herzog right rotator cuff repair Schedule right knee steroidal injection PRN - last done 03/05/23- 85% relief Discussed Medtronic SCS trial - declining Previously referred to Mental Health provider Dr.Gregg Doan at [facility] for SCStim trial options -pt is declining Reduce alcohol consumption Previously ordered right elbow x-ray-pt still needs to get done A prescription for narcan (naloxone) has been offered to the patient F/u with PCP Follow-up in 3 months Chantell Barr APRN.CNP documented in this encounterAultman [facility]02-[facility] History of Present illness Narrative* Chantell aBrr APRN.CNP - 07/09/2023 10:45 AM EST This video visit was performed via Stereobot video visit. Patient consented to receive health care services via virtual visit for this encounter Provider [facility] Patient Location: Patient Home or Place of Residence Risks, benefits, and limitations of receiving care virtually were discussed with the patient. The patient expressed understanding and is willing to proceed. Chief Complaint: Pain History of Present Illness: Tate Baltazar is a 48 year old year old male being seen at [facility] for a evaluation and/or management of his chronic pain. The patient last had a virtual visit on 05/27/23. He is scheduled for a virtual visit today. He states that since the last visit symptoms have been stable. On 06/30/23 he had a right knee injection and received 50% relief at this point. He still needs to get the right elbow x-ray done. The pain is currently described as follows: Location: lower back, migraines right arm, and right leg, right knee Radiation: right leg and right foot Intensity:9/10 Timing:constant Character: sharp, throbbing, and burning Numbness/tingling: yes, rt leg and right arm From elbow to hand Worsening factors: Increased activity Relieving factors: meds falls:denies Patient denies any bowel or bladder dysfunction. Since the last office visit the patients medical history has not changed. The patient went to the ER on 05/31/23 and was admitted until 06/02/23 d/t pneumonia. The patient is currently prescribed gabapentin and Zanaflex from our office. The last doses were taken last night. The medications are partially effective. The patient denies nausea, vomiting, constipation,rashes, drowsiness,weight gain, weight loss,dizziness,and fatigue. Lidocaine Patches are not helping d/t not sticking. The OARRS report has been reviewed and is consistent with the patients medical history and medication intake. Last UDS: UDS STILL INCONSISTENT, ABSENT PERCOCET ON LAST 2 UDS. NO FURTHER NARCOTICS. PATIENT NEEDS TO ASK SURGEON FOR ACUTE POST-OP PAIN MEDS. Summary Report Date Value Ref Range Status 12/09/2022 FINAL Final Comment: Gabapentin, MS, Ur RFX Acetaminophen, MS, Ur RFX ToxAssure Flex 23, Ur Test Result Flag Units Drug Present Gabapentin PRESENT Acetaminophen PRESENT Test Result Flag Units Ref Range Creatinine 75 mg/dL >=20 Declared Medications: Medication list was not provided. For clinical consultation, please call . No results found for: PREGAB Summary Report (Summary) Date Value Ref Range Status 12/16/2021 FINAL Final Comment: TOXASSURE COMP DRUG ANALYSIS,UR Test Result Flag Units Drug Present Gabapentin PRESENT Tizanidine PRESENT Bupropion PRESENT Hydroxybupropion PRESENT Hydroxybupropion is an expected metabolite of bupropion. Duloxetine PRESENT Fluoxetine PRESENT Norfluoxetine PRESENT Norfluoxetine is an expected metabolite of fluoxetine. Acetaminophen PRESENT Diphenhydramine PRESENT Doxylamine PRESENT Dextromethorphan PRESENT Dextrorphan/Levorphanol PRESENT Dextrorphan is an expected metabolite of dextromethorphan, an jlip-rys-mgfsuqu or prescription cough suppressant. Dextrorphan cannot be distinguished from the scheduled prescription medication levorphanol by the method used for analysis. Verapamil PRESENT Test Result Flag Units Ref Range Creatinine 130 mg/dL >=20 Declared Medications: Medication list was not provided. For clinical consultation, please call . REVIEW OF SYSTEMS: GENERAL: No weight loss, malaise or fevers RESPIRATORY: Negative for cough CARDIOVASCULAR: Negative for chest pain GI: No nausea, vomiting, or diarrhea. 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 Stroke due to intracerebral hemorrhage (HCC) 2018 Had an additional stroke at age 25 PAST SURGICAL HISTORY Procedure Laterality Date APPENDECTOMY CARPAL TUNNEL Left 2014 COLONOSCOPY 20's with EGD EGD TRANSORAL BIOPSY SINGLE/MULTIPLE 10/02/2015 EXCISION PILONIDAL CYST/SINUS EXTENSIVE 07/05/2010 closed ORTHOPEDICS SURGERY HX Right 12/2022 Right ROTATOR cUFF PAST SURGICAL HISTORY OF right knee surgery TONSILLECTOMY PRIMARY/SECONDARY <AGE 14 Tonsillectomy VASECTOMY UNI/BI SPX W/POSTOP SEMEN EXAMS Bilateral 05/23/2016 FAMILY HISTORY Problem Relation Age of Onset Prostate Cancer Father Hypertension Father Social History Tobacco Use Smoking status: Never Passive exposure: Never Smokeless tobacco: Never Vaping Use Vaping Use: Never used Substance Use Topics Alcohol use: Yes Comment: OCCASIONAL Drug use: No Allergies: Hydrochlorothiazide Other: See Comments Sulfamethoxazole-Tr* Unknown, Other: See Comments Acetaminophen Other: See Comments Comment:Rebound headaches Acetaminophen-Codei* Unknown Doxycycline Hives Hydrocodone Other: See Comments Kihei Juice Unknown Kihei Oil Hives, Other: See Comments Pseudoephedrine Unknown Vicodin [Hydrocodon* Mental Status Change, Itching Aripiprazole Mental Status Change Current Outpatient Medications Medication Sig atorvastatin (LIPITOR) 40 mg tablet 1 tablet by ORAL/FEEDING TUBE route daily at bedtime. tamsulosin (FLOMAX) 0.4 mg Take 0.4 mg by mouth once daily. lidocaine (LIDODERM) 5 % Apply 1 Patch as directed as directed. Apply 1 patch for 12 hours then remove for 12 hours gabapentin (NEURONTIN) 600 mg tablet Take 1 tablet by mouth three times a day for 90 days. cyclobenzaprine (FLEXERIL) 5 mg tablet Take 1 tablet by mouth two times a day as needed for muscle spasm. tiZANidine (ZANAFLEX) 4 mg tablet Take one in the afternoon and evening and take 2 tabs at bedtime. ondansetron orally disintegrating (ZOFRAN ODT) 4 mg disintegrating tablet Take 1 tablet by mouth every 8 hours as needed for nausea/vomiting. docusate sodium (COLACE) 100 mg capsule Take 1 capsule by mouth twice daily. naloxone 4 mg/actuation nasal spray (NARCAN) Use 1 spray in one nostril as needed for overdose. Mayrepeat every 2 to 3 min in alternating nostrils until medical assistance is available verapamil ER (VERELAN) 240 mg 24 hr capsule Take 240 mg by mouth once daily. buPROPion XL (WELLBUTRIN XL) 300 mg 24 hr tablet TAKE 1 TABLET BY MOUTH EVERY 24 HOURS. REPLACES PREVIOUS PRESCRIPTION FOR BUPROPION 150 MG TABLET valsartan (DIOVAN) 160 mg tablet Take 160 mg by mouth every morning. cetirizine (ZYRTEC) 10 mg tablet Take 10 mg by mouth once daily. AJOVY SYRINGE 225 mg/1.[address] (PROTONIX) 40 mg tablet Take 40 mg by mouth twice daily. potassium chloride ER (K-DUR, KLOR-CON) 20 mEq tablet Take 20 mEq by mouth twice daily. NURTEC ODT 75 mg disintegrating tablet No current facility-administered medications for this visit. PHYSICAL EXAMINATION: VIDEO EXAM: (performed via video enabled technology) GENERAL: alert and appropriate, in no distress, well-hydrated, well nourished and happy, smiling, interactive HEAD: normocephalic, no abnormality or lesion noted RESPIRATORY: breathing non-labored NEUROLOGIC: no obvious deficit ASSESSMENT: Patient is stable. Chronic pain is persistent. Medications are helping Tate Baltazra to have an improved quality of life. Patient compliance with Opioid Contract: patient is currently compliant Encounter Diagnosis ICD-10-CM 1. Primary osteoarthritis of right knee M17.11 2. DDD (degenerative disc disease), lumbar M51.36 3. Intervertebral disc disorder with radiculopathy of lumbar region M51.16 4. Other chronic pain G89.29 5. RSD (reflex sympathetic dystrophy) G90.50 6. FDC (current) use of 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 [Z79.891 (ICD-10-CM)] Z79.891 7. Radiculopathy, lumbar region [M54.16 (ICD-10-CM)] M54.16 8. Myofascial pain syndrome M79.18 9. Reflex sympathetic dystrophy G90.50 10. Pain in right elbow M25.521 PLAN: *Pt is offered non narcotic options due to inconsistent UDS's. Continue Gabapentin 600 mg tablet TID Continue Zanaflex 6 mg tablet at bedtime Continue HEP Continue to use knee brace Continue TENS unit for shoulder pain Continue with PT as scheduled Continue to follow-up with Dr. Gotti - S/P right rotator cuff repair Schedule right knee steroidal injection PRN - last done 03/05/23- 85% relief Discussed Medtronic SCS trial - declining Previously referred to Mental Health provider Dr.Gregg Doan at [email or web address] for SCStim trial options -pt is declining Reduce alcohol consumption Previously ordered right elbow x-ray-pt still needs to get done A prescription for narcan (naloxone) has been offered to the patient F/u with PCP Follow-up in 3 months Chantell Barr APRN.COIL BUILDER documented in this encounterAult[facility]02-[facility] Miscellaneous Notes* Telephone Encounter - Helena Espino MA - 07/09/2023 7:09 AM EST Items addressed in this encounter: MyChart Encounter Soapp questionnaire sent Items addressed in this encounter: Virtual Visit Pre Check In Virtual visit precharting done Able to close encounter. Helena Espino MA July 09, 2023 7:09 AM 7:09 AM Helena Espino MA July 09, 2023 7:09 AM 7:09 AM documented in this encounterAultman [facility]02-13-[facility]24 Surgical operation note* Operative Report - Jennifer Munroe MD - 06/30/2023 11:53 AM EST PROCEDURE: Knee Injection.RIGHT DATE OF SERVICE: June 30, 2023 PREPROCEDURE DIAGNOSIS: Right knee osteoarthritis, right knee degenerative changes, right knee pain ANESTHESIA: Local COMPLICATIONS: None CONSENT: Risks of the procedure including bleeding, infection, nerve damage, seizure, abscess formation, hematoma formation, headache, failure of the pain to improve and potential worsening of the pain, were explained in full to the patient who verbalized understanding and wishes to proceed with the injection at this time. Written informed consent was thereby obtained. BRIEF HISTORY: Last done by Dr. Boateng 03/05/2023. Patient would like this repeated again; HOWEVER, with a different steroid since the last injection only helped him for a month to month and a half. DESCRIPTION OF PROCEDURE: After written informed consent was obtained as above, the patient was placed in the sitting position. The right knee was flexed and the joint space was identified via palpation. The skin was sterilely prepped with ChloraPrep. A sterile drape was applied. Local anesthetic of 1%Lidocaine, 5 ccs was used as local, using a 25 gauge 1 inch needle. A 22-gauge 3.5 inch spinal needle was advanced toward the medial aspect of the knee joint space. Negative aspiration throughout. A total of 18 mg Celestone and 5 cc quarter percent preservative Marcaine was injected easily There were no complications noted upon injection. The needle tip was removed intact. The patient remained neurovascularly intact both pre- and postprocedure. The area was wiped clean and a Band-Aid was applied as appropriate. The patient was transferred to the recovery area where their VSS remained stable. After a period ofobservation, the patient was discharged home in good condition. COMMENTS: Repeat as needed. If not satisfactory analgesic benefit, then I would recommend Synvisc 1 injection. documented in this encounterAultman [facility]01-15-2024 NoteHNO ID: [id number] Author: CASANDRA BOYER RN Service: Care Management Author Type: Registered Nurse Type: Care Mgt Initial Assessment Filed: 06/01/2023 15:52 Note Text: CARE MANAGEMENT: ASSESSMENT AND DISCHARGE PLAN SERVICE DATE: June 01, 2023 SERVICE TIME: 3:48 PM PCP: Lanette Harkins DO - [place]. Primary Contact: Extended Emergency Contact Information Primary Emergency Contact: Mika Baltazar Mobile Relation: Father Secondary Emergency Contact: Kesha Blankenship Mobile Relation: Significant other Admission Status: Inpatient Insurance Provider: [facility] [employer] [employer] MEDICAID OF [place] Discharge Planning requested by: Per Department Practice Potential Transition Plans Home Advance Directives Current Advance Directive: None Powder Hand Attempted to Assist with AD Completion: Yes Action: Education Provided Current Living Arrangements and Support Lives with: Parent, Spouse/significant other Type of Residence: Private Residence (House) Does the patient have to climb stairs at home?: Yes Support: Spouse/significant other, Parent, Family members How do you manage to accomplish the following: Independent: Ambulation;Bathe/Shower;Dress;Meals/Meal Prep;Going to the bathroom;Medication Management;Transportation to appointments/community Current Services/Equipment Current Post-Acute Service(s): None Discharge Planning Patient Goal(s): Be able to go home, General wellness [place] of Choice Explained: [place] of Choice Given: No Reason Not Given: Patient refused Are you interested in bedside delivery of your medications? No [facility] outpatient [facility] Discharge Planning Participant(s): Patient Patient/Family Comments: Caregiver Assessment: Caregiver is ready, willing and able to meet the patient's needs as recommended by the inter-professional team: No Caregiver needed Transport at Discharge: Transportation Arrangements: Car Needs Prior to Discharge: Needs Prior to Discharge: To Be Determined Post-Acute Discharge Plan: CM met at bedside with patient, introduced self and role. Pt is 48 y/o, admit Dx lobar pneumonia. Patient resides in a multilevel home with and father. IPTA, drives. Presented to ED with fall, headache and dizziness. Has hx stroke with residual right sided hemiparesis. MRI negative for stroke. Symptoms felt to be related to lobar pneumonia. On IV ATB. On RA. Pt is AANDO X 3. PT rec HHC, OT rec home. Patient declines HHC and asked if he could have some hand outs of exercises to do on his own. He advised he doesn't like people to touch him and would just prefer to do them himself. Message sent to Vicenta the PT who saw patient, she will try to provide those to patient before the end of the day today. Anticipate basic d/c needs. Family to transport. CM instructed patient that CM team will remain available for any dc needs. SIGNATURE: Casandra Boyer RN PATIENT NAME: Tate Baltazar DATE: June 01, 2023 TIME: 3:48 PM CONTACT #: [id number] NoteHNO ID: [id number] Author: YFN BLANCA MD Service: Hospital Medicine Author Type: Physician Type: Progress Notes Filed: 06/01/2023 11:34 Note Text: DEPARTMENT OF HOSPITAL MEDICINE PROGRESS NOTE SERVICE DATE: 06/01/2023 SERVICE TIME: 7:32 AM Hospital Medicine/Primary Attending: Yfn Blanca MD NIGHT AND WEEKEND COVERAGE: [place] COVERAGE: Nights: [phone], please page [facility] Night coverage pager [phone]. Reason for Admission: Headache and falling INTERVAL HPI: MRI negative for stroke headache seems to be most likely with a normal white count procalcitonin 0.23 and asymptomatic pneumonia mycoplasma which headache is a common precipitating factor for. In the ED my experience has been headache is the most common presentation of mycoplasma pneumonia along with symptoms from unsuspected hypoxemia. ASSESSMENT/PLAN PT/OT evaluations today Continue antibiotic therapy and treat for sinusitis possibly from mycoplasma along with the upper lobe pneumonia If stable we will get desat study tomorrow in anticipation of going home CHECK LIST Goal for glucose 100-180 At goal Cultures negative thus far other than those noted:None Vital signs: Reviewed labs Problem list reviewed Medication list reviewed Reviewed new notes Probable discharge- Consultants: Neurology Dr. Martinez PROCEDURES: NONE Disposition: Home PT and OT EKG: Sinus tachycardia with similar to normal EKG of 10/19/2017. Barely meets voltage criteria for LVH in aVL ECHO: 10/19/2017 - The left ventricle is normal in size. Left ventricular systolic function is normal. EF = 69 ? 5% (2D biplane) Normal left ventricular diastolic function. - The right ventricle is normal in size. Right ventricular systolic function is normal. - The right atrial cavity is dilated. -No significant valvular disease with trivial mitral and tricuspid regurgitation Recent Labs 06/01/23 0616 05/31/23 1808 WBC 8.44 10.23 RBC 4.24 4.46 HB 12.4* 13.5 HCT 37.2* 40.2 PLT 254 257 MCV 87.7 90.1 MCH 29.2 30.3 MPV 9.9 10.0 ABSNEUT 5.62 8.58* NEUTP 66.6 83.8 LYMPHP 24.5 10.0 MONOP 7.1 5.5 Recent Labs 06/01/23 0616 05/31/23 1808 GLUC 87 165* NA 144 141 K 4.0 4.2 CHLOR 107* 105 CO2 29 26 CREAT 0.96 1.11 BUN 9 10 ANION 8* 10 CA 8.3* 8.9 TPROT 5.6* 6.0* ALB 3.6* 3.9 TBILI 0.6 0.5 ALKPHOS 74 85 AST 17 24 ALT 35 43 Recent Labs 06/01/23 0843 06/01/23 0616 05/31/23 1808 GLUC -- 87 165* PCGLUCOSE 81 -- -- No results for input(s): LACT in the last 168 hours. Recent Labs 06/01/23 0616 05/31/23 1808 BUN 9 10 CREAT 0.96 1.11 CA 8.3* 8.9 MG 2.4* -- Most recent labs HOSPITAL COURSE: Tate Baltazar is a 48 year old male presented with past medical history of HTN, JANNETTE, GERD, hx CVA with residual right hemiparesis who presents with numerous falls since 05/29/23 with associated dizziness, weakness, CUMMINGS, back/neck/shoulder pain. Patient states that he had a significant global headache that is rated 9/10 described as throbbing, worse on the posterior aspect and left side of his head where he had direct hits upon falling. Endorses blurry vision, vertigo, nausea, 1 episode of vomiting at 4 PM yesterday. Patient endorses chest pain described as tightness/cramping that occurs intermittently when his potassium levels are low. Patient states he feels weakness in his knees with episodes of spasming and locking, right more so the left, which has led to numerous falls. Patient endorses chronic right shoulder pain. Denies shortness of breath, diarrhea, constipation, dysuria, lower extremity edema. [place] ED Course: Afebrile, hypertensive with BP 159/99, tachycardic with HR 115, RR 20 with SpO2 96% on RA. CBC with differential significant for ANC of 8.58, otherwise normal. CMP with hypoproteinemia (protein 6.0), elevated glucose 165, otherwise normal. Lipase normal. High-sensitivity troponin normal. Tox screen negative, negative alcohol/ethanol, salicylate, acetaminophen levels. UA within normal limits. COVID/Flu/RSV negative. EKG with sinus tachycardia, minimal voltage criteria for LVH, nonspecific ST abnormality; no significant change when compared to October 2017. CXR demonstrates small area of opacity in the left midlung field may represent infiltrate, atelectasis, contusion, among other etiologies. X-ray pelvis with no acute findings. X-ray lumbar spine with no evidence of lumbar spine fracture. X-ray shoulder with no acute findings in the right shoulder. CT brain without IV contrast with no acute intracranial process. CT C-spine without IV contrast with no acute cervical C-spine fracture. CT chest with IV contrast demonstrates right upper lobe groundglass attenuation; in the setting of trauma pulmonary contusion should be considered, although this is a more expected appearance of lobar pneumonia. Patient given 2 L normal saline bolus, Benadryl, Zofran, [place] (more content not included)...[facility] 04-23-2023 NoteHNO ID: [id number] Author: Franchesca Larson PTA Service: ? Author Type: Conference Coordinator Type: Progress Notes Filed: 04/23/2023 11:36 AM Note Text: Episode Visit Count: 13 Therapist That Will Accept/Oversee The Plan Of Care: Eloise Hebert, PT, DPT Start of Care Date: 01/16/23 Onset Date: 01/09/23 Plan of Care Certification Date: 03/31/23 Next Certification Due Date: 05/30/23 REHABILITATION AND SPORTS THERAPY PHYSICAL THERAPY TREATMENT NOTE ASSESSMENT: Tate Baltazar tolerated the session with expected muscle soreness. He demonstrated difficulty with resisted abduction, patient hikes UT with elevation. The patient will continue to benefit from ongoing skilled physical therapy to progress toward set goals. PLAN FOR NEXT VISIT: progress phase III SUBJECTIVE: Patient reports The shoulder is still sore, more sore than I thought it would be. Patient unable to push wheelbarrow with wood through yard. Pain: Pain Pain Level: 8 Pain Location: Shoulder - Right Post Treatment Pain Post Treatment Pain Level: No Change OBJECTIVE MEASURES WITH LEVEL OF FUNCTION: Patient able to lift 5 # with right upper extremity to 74 shelf TREATMENT: Therapeutic Exercise: 1: Scifit L3.0 x6 minutes with reverse at half 3: wall walk into flexion, abduction x 10 4: wall wipe CW/CCW x 10 6: IR/ER with red x 10 7: rows and pulldowns with blue x 10 Skilled Intervention: Patient was educated in proper exercise technique and purpose for exercises. Skilled judgment was used in selection of appropriate interventions. Correct performance of therapeutic exercises was facilitated with verbal and visual cuing. Therapeutic Activity: 1: sled push 60 feet x 2 with 22 # 2: sled push with 44 # 60 feet x 2 3: weight transfer 37 to 57' to 74 with 5 # x 10 reps 4: BOING into flexion and abduction 3 x 15 seconds Skilled Intervention: Educated on proper/safe technique for activities performed today. Activity progression based on professional judgment. Billing Therapeutic Exercise Treatment Minutes: 26 Therapeutic Activity Treatment Minutes: 15 Skilled Treatment Time Minutes (timed and untimed codes): 41 Total Session Time (minutes): 41 Session Start Time : 1049 Session Stop Time : 1130 Sierra Rojas [id number] History of Present illness Narrative* Franchesca Larson PTA - 04/23/2023 10:49 AM EST Episode Visit Count: 13 Therapist That Will Accept/Oversee The Plan Of Care: Eloise Hebert PT, DPT Start of Care Date: 01/16/23 Onset Date: 01/09/23 Plan of Care Certification Date: 03/31/23 Next Certification Due Date: 05/30/23 REHABILITATION AND SPORTS THERAPY PHYSICAL THERAPY TREATMENT NOTE ASSESSMENT: Tate Baltazar tolerated the session with expected muscle soreness. He demonstrated difficulty with resisted abduction, patient hikes UT with elevation. The patient will continue to benefit from ongoing skilled physical therapy to progress toward set goals. PLAN FOR NEXT VISIT: progress phase III SUBJECTIVE: Patient reports The shoulder is still sore, more sore than I thought it would be. Patient unable to push wheelbarrow with wood through yard. Pain: Pain Pain Level: 8 Pain Location: Shoulder - Right Post Treatment Pain Post Treatment Pain Level: No Change OBJECTIVE MEASURES WITH LEVEL OF FUNCTION: Patient able to lift 5 # with right upper extremity to 74 shelf TREATMENT: Therapeutic Exercise: 1: Scifit L3.0 x6 minutes with reverse at half 3: wall walk into flexion, abduction x 10 4: wall wipe CW/CCW x 10 6: IR/ER with red x 10 7: rows and pulldowns with blue x 10 Skilled Intervention: Patient was educated in proper exercise technique and purpose for exercises. Skilled judgment was used in selection of appropriate interventions. Correct performance of therapeutic exercises was facilitated with verbal and visual cuing. Therapeutic Activity: 1: sled push 60 feet x 2 with 22 # 2: sled push with 44 # 60 feet x 2 3: weight transfer 37 to 57' to 74 with 5 # x 10 reps 4: BOING into flexion and abduction 3 x 15 seconds Skilled Intervention: Educated on proper/safe technique for activities performed today. Activity progression based on professional judgment. Billing Therapeutic Exercise Treatment Minutes: 26 Therapeutic Activity Treatment Minutes: 15 Skilled Treatment Time Minutes (timed and untimed codes): 41 Total Session Time (minutes): 41 Session Start Time : 1049 Session Stop Time : 1130 Franchesca Larson PTA documented in this encounterAultman [facility]11-20-2023 NoteHNO ID: [id number] Author: Franchesca Larson PTA Service: ? Author Type: Conference Coordinator Type: Progress Notes Filed: 04/06/2023 3:37 PM Note Text: Episode Visit Count: 12 Therapist That Will Accept/Oversee The Plan Of Care: Eloise Hebert PT, DPT Start of Care Date: 01/16/23 Onset Date: 01/09/23 Plan of Care Certification Date: 03/31/23 Next Certification Due Date: 05/30/23 REHABILITATION AND SPORTS THERAPY PHYSICAL THERAPY TREATMENT NOTE ASSESSMENT: Tate Baltazar tolerated the session with expected muscle soreness. He demonstrated difficulty with supine bicep stretch . Weakness noted with release of adductor stretch. The patient will continue to benefit from ongoing skilled physical therapy to progress toward set goals. PLAN FOR NEXT VISIT: progress phase III SUBJECTIVE: Patient reports I am in stage 3 now. Difficulty with reaching out to the side. Pain: Pain Pain Level: 7 Pain Location: Shoulder - Right Post Treatment Pain Post Treatment Pain Level: No Change OBJECTIVE MEASURES WITH LEVEL OF FUNCTION: UE AROM R Shoulder Flex: 165 Degrees R Shoulder ABduction: 141 Degrees TREATMENT: Therapeutic Exercise: 1: Scifit L2.0 x6 minutes with reverse at half 3: wall walk into flexion, abduction x 10 4: wall wipe CW/CCW x 10 5: bicep curl with 4 # , palm in then palm up x 10 each 6: IR/ER with yellow x 10 7: rows and pulldowns with green x 10 9: Sidelying ER 1lb x10 10: Supine flexion with 1 #, x10 11: bicep stretch, 2 #, 3 x 30 seconds 12: Cross body adduction stretch 30s x3 Skilled Intervention: Patient was educated in proper exercise technique and purpose for exercises. Skilled judgment was used in selection of appropriate interventions. Correct performance of therapeutic exercises was facilitated with verbal and visual cuing. Billing Therapeutic Exercise Treatment Minutes: 41 Skilled Treatment Time Minutes (timed and untimed codes): 41 Total Session Time (minutes): 41 Session Start Time : 1303 Session Stop Time : 1344 Franchesca Larson [facility]AT[facility] [id number] History of Present illness Narrative* Franchesca Larson PTA - 04/06/2023 1:03 PM EST Episode Visit Count: 12 Therapist That Will Accept/Oversee The Plan Of Care: Eloise Hebert PT, DPT Start of Care Date: 01/16/23 Onset Date: 01/09/23 Plan of Care Certification Date: 03/31/23 Next Certification Due Date: 05/30/23 REHABILITATION AND SPORTS THERAPY PHYSICAL THERAPY TREATMENT NOTE ASSESSMENT: Tate Baltazar tolerated the session with expected muscle soreness. He demonstrated difficulty with supine bicep stretch . Weakness noted with release of adductor stretch. The patient will continue to benefit from ongoing skilled physical therapy to progress toward set goals. PLAN FOR NEXT VISIT: progress phase III SUBJECTIVE: Patient reports I am in stage 3 now. Difficulty with reaching out to the side. Pain: Pain Pain Level: 7 Pain Location: Shoulder - Right Post Treatment Pain Post Treatment Pain Level: No Change OBJECTIVE MEASURES WITH LEVEL OF FUNCTION: UE AROM R Shoulder Flex: 165 Degrees R Shoulder ABduction: 141 Degrees TREATMENT: Therapeutic Exercise: 1: Scifit L2.0 x6 minutes with reverse at half 3: wall walk into flexion, abduction x 10 4: wall wipe CW/CCW x 10 5: bicep curl with 4 # , palm in then palm up x 10 each 6: IR/ER with yellow x 10 7: rows and pulldowns with green x 10 9: Sidelying ER 1lb x10 10: Supine flexion with 1 #, x10 11: bicep stretch, 2 #, 3 x 30 seconds 12: Cross body adduction stretch 30s x3 Skilled Intervention: Patient was educated in proper exercise technique and purpose for exercises. Skilled judgment was used in selection of appropriate interventions. Correct performance of therapeutic exercises was facilitated with verbal and visual cuing. Billing Therapeutic Exercise Treatment Minutes: 41 Skilled Treatment Time Minutes (timed and untimed codes): 41 Total Session Time (minutes): 41 Session Start Time : 1303 Session Stop Time : 1344 Franchesca Larson PTA documented [facility] encounterA[facility]11-[facility]-2023 NoteHNO ID: [id number] Author: Kisha Walters PA-C Service: ? Author Type: Physician Environmental Programs Specialist Type: Progress Notes Filed: 04/06/2023 9:23 AM Note Text: Kisha Walters PA-C Department of Orthopaedics April 06, 2023 SURGERY: Right shoulder arthroscopic rotator cuff repair supraspinatus 1 cm SUBJECTIVE: Returns to clinic now 3 months status post the above procedure. Progressing with PT. Still has pain, states it's due to his previous stroke. Exam: Examination of shoulder reveals active forward elevation to 170. ER to 60. 5/5 abduction strength. ASSESSMENT: Z98.890 S/P rotator cuff repair (primary encounter diagnosis) SUMMARY/PLAN: Patient is doing well. Progress to PT phase 3 exercises. No formal follow up needed, return to clinic with any concerns. [facility] History of Present illness Narrative* Kisha Walters PA-C - 04/03/2023 9:21 AM EST Kisha Walters PA-C Department of Orthopaedics April 06, 2023 SURGERY: Right shoulder arthroscopic rotator cuff repair supraspinatus 1 cm SUBJECTIVE: Returns to clinic now 3 months status post the above procedure. Progressing with PT. Still has pain, states it's due to his previous stroke. Exam: Examination of shoulder reveals active forward elevation to 170. ER to 60. 5/5 abduction strength. ASSESSMENT: Z98.890 S/P rotator cuff repair (primary encounter diagnosis) SUMMARY/PLAN: Patient is doing well. Progress to PT phase 3 exercises. No formal follow up needed, return to clinic with any concerns. Kisha Walters PA-C documented in this encounterA[facility]11-14-2023 NoteHNO ID: [id number] Author: Eloise Hebert PT Service: ? Author Type: Physical Therapist Type: Progress Notes Filed: 03/31/2023 11:41 AM Note Text: Episode Visit Count: 11 Therapist That Will Accept/Oversee The Plan Of Care: Eloise Hebert PT, DPT Start of Care Date: 01/16/23 Onset Date: 01/09/23 Plan of Care Certification Date: 03/31/23 Next Certification Due Date: 05/30/23 Patient Identified by Name and Date of : Yes REHABILITATION AND SPORTS THERAPY PHYSICAL THERAPY PROGRESS REPORT PLAN OF CARE UPDATE: Assessment: Tate Baltazar demonstrates improvements in reaching behind back, reaching overhead, use hand with arm at shoulder level, cleaning, cooking, dressing, and grooming. He has progressed toward goals. Patient continues to present with impairments in overall function, range of motion, and strength that interfere with reaching behind back, reaching overhead, use hand with arm at shoulder level, grooming, recreational activities . Current prognosis is Fair due to: multiple co- morbidities . He will benefit from continued skilled therapy services to meet the updated goals for this plan of care as noted below. Goals for Episode of Care: created on 01/16/23 through 05/30/23 Updated 03/31/23 [place] in home exercise program. ONGOING Patient will decrease pain rating by 2 points to meet minimal clinical important difference for numeric pain rating scale. NOT MET Patient will increase active ROM of R shoulder elevation to 160 to allow pt to to improve performance of ADLs. PARTIALLY MET Patient will demonstrate increase in RUE strength to 4+/5 during manual muscle testing in order to improve function for prior functional tasks. NOT ASSESSED Perform dressing without pain. PROGRESSING Patient Goals: Improve mobility, get back to motorcycle riding Planned Interventions, Frequency, and Duration: 1x/week, 8 weeks Total Number of Visits Planned: 8 Patient to be seen for Therapeutic exercise (80254), Neuromuscular re-education (33810), Manual therapy (05009), Therapeutic activities (86090), Self-prison management (02076), Gait Training (76754), Patient/Family/Caregiver Education PLAN FOR NEXT VISIT: progress phase III SUBJECTIVE: Pt. reports that he is tired today. Had to take to ED. Shoulder is doing peachy. States it still bothers him in certain spots but it is better. Feels like once he is able to start using it he will progress more.. Functional Limitations: reaching behind back, reaching overhead, use hand with arm at shoulder level, grooming, recreational activities Pain: Pain Pain Level: 7 (just normal pain) Pain Location: Shoulder - Right PROMIS Scales Higher is Better 03/16/2023 01/15/2023 12/15/2022 Phys Func - Score 42 (mild dysfunction) 23 (severe dysfunction) 37 (moderate dysfunction) Phys Func - Percentile 21 % 0 % 10 % Self-Eff Symptom - Score 40 (Average) 41 (Average) - Self-Eff Symptom - Percentile 16 % 18 % - T-scores: mean of general population = 50. 5 points is clinically meaningfully difference Percentiles provide an indication of how the patient's score ranks in relation to the general population. Higher percentile rankings indicate better function/quality of life. 50th percentile is the average of the general population and indicates half of respondents had a worse score. OBJECTIVE MEASURES WITH LEVEL OF FUNCTION: UE AROM R Shoulder Flex: 165 Degrees R Shoulder ABduction: 135 Degrees R Shoulder Internal Rotation (Functional): T8 R Shoulder External Rotation (Functional): T2 TREATMENT: Therapeutic Exercise: 1: Scifit L1.5 x6 minutes with reverse at half 3: wall walk into flexion, abduction x 10 4: wall wipe CW/CCW x 10 5: Bicep curl 3lb x10 6: Hammer curl 3lb x10 7: R chest press 1lb x10 8: Sidelying R abduction AROM 2x10 9: Sidelying ER 1lb x10 10: Supine triceps 1lb x10 11: Wand ER 5s x10 12: Cross body adduction stretch 30s x3 Skilled Intervention: Patient was educated in proper exercise technique and purpose for exercises. Reviewed and educated patient on additions/changes for home exercise program as above (*). Skilled judgment was used in selection of appropriate interventions. Provided written instruction for home exercise program to facilitate proper performance and compliance. Correct performance of therapeutic exercises was facilitated with verbal and visual cuing. Billing Therapeutic Exercise Treatment Minutes: 38 Skilled Treatment Time Minutes (timed and untimed codes): 38 Total Session Time (minutes): 40 Session Start Time : 1055 Session Stop Time : 1135 [facility]bert [id number] History of Present illness Narrative * Eloise Hebert PT - 03/31/2023 10:54 AM EST Episode Visit Count: 11 Therapist That Will Accept/Oversee The Plan Of Care: Eloise Hebert PT, DPT Start of Care Date: 01/16/23 Onset Date: 01/09/23 Plan of Care Certification Date: 03/31/23 Next Certification Due Date: 05/30/23 Patient Identified by Name and Date of : Yes REHABILITATION AND SPORTS THERAPY PHYSICAL THERAPY PROGRESS REPORT PLAN OF CARE UPDATE: Assessment: Tate Baltazar demonstrates improvements in reaching behind back, reaching overhead, use hand with arm at shoulder level, cleaning, cooking, dressing, and grooming. He has progressed toward goals. Patient continues to present with impairments in overall function, range of motion, and strength that interfere with reaching behind back, reaching overhead, use hand with arm at shoulder level, grooming, recreational activities . Current prognosis is Fair due to: multiple co- morbidities . He will benefit from continued skilled therapy services to meet the updated goals for this plan of care as noted below. Goals for Episode of Care: created on 01/16/23 through 05/30/23 Updated 03/31/23 [place] in home exercise program. ONGOING Patient will decrease pain rating by 2 points to meet minimal clinical important difference for numeric pain rating scale. NOT MET Patient will increase active ROM of R shoulder elevation to 160 to allow pt to to improve performance of ADLs. PARTIALLY MET Patient will demonstrate increase in RUE strength to 4+/5 during manual muscle testing in order to improve function for prior functional tasks. NOT ASSESSED Perform dressing without pain. PROGRESSING Patient Goals: Improve mobility, get back to motorcycle riding Planned Interventions, Frequency, and Duration: 1x/week, 8 weeks Total Number of Visits Planned: 8 Patient to be seen for Therapeutic exercise (76762), Neuromuscular re-education (85280), Manual therapy (70415), Therapeutic activities (84459), Self-prison management (24153), Gait Training (65441), Patient/Family/Caregiver Education PLAN FOR NEXT VISIT: progress phase III SUBJECTIVE: Pt. reports that he is tired today. Had to take to ED. Shoulder is doing peachy.States it still bothers him in certain spots but it is better. Feels like once he is able to start using it he will progress more.. Functional Limitations: reaching behind back, reaching overhead, use hand with arm at shoulder level, grooming, recreational activities Pain: Pain Pain Level: 7 (just normal pain) Pain Location: Shoulder - Right PROMIS Scales Higher is Better 03/16/2023 01/15/2023 12/15/2022 Phys Func - Score 42 (mild dysfunction) 23 (severe dysfunction) 37 (moderate dysfunction) Phys Func - Percentile 21 % 0 % 10 % Self-Eff Symptom - Score 40 (Average) 41 (Average) - Self-Eff Symptom - Percentile 16 % 18 % - T-scores: mean of general population = 50. 5 points is clinically meaningfully difference Percentiles provide an indication of how the patient's score ranks in relation to the general population. Higher percentile rankings indicate better function/quality of life. 50th percentile is the average of the general population and indicates half of respondents had a worse score. OBJECTIVE MEASURES WITH LEVEL OF FUNCTION: UE AROM R Shoulder Flex: 165 Degrees R Shoulder ABduction: 135 Degrees R Shoulder Internal Rotation (Functional): T8 R Shoulder External Rotation (Functional): T2 TREATMENT: Therapeutic Exercise: 1: Scifit L1.5 x6 minutes with reverse at half 3: wall walk into flexion, abduction x 10 4: wall wipe CW/CCW x 10 5: Bicep curl 3lb x10 6: Hammer curl 3lb x10 7: R chest press 1lb x10 8: Sidelying R abduction AROM 2x10 9: Sidelying ER 1lb x10 10: Supine triceps 1lb x10 11: Wand ER 5s x10 12: Cross body adduction stretch 30s x3 Skilled Intervention: Patient was educated in proper exercise technique and purpose for exercises. Reviewed and educated patient on additions/changes for home exercise program as above (*). Skilled judgment was used in selection of appropriate interventions. Provided written instruction for home exercise program to facilitate proper performance and compliance. Correct performance of therapeutic exercises was facilitated with verbal and visual cuing. Billing Therapeutic Exercise Treatment Minutes: 38 Skilled Treatment Time Minutes (timed and untimed codes): 38 Total Session Time (minutes): 40 Session Start Time : 1055 Session Stop Time : 1135 Eloise Hebert PT documented in this encounterA[facility]11-07-2023 NoteHNO ID: [id number] Author: Franchesca Larson PTA Service: ? Author Type: Conference Coordinator Type: Progress Notes Filed: 03/24/2023 11:49 AM Note Text: Episode Visit Count: 10 Therapist That Will Accept/Oversee The Plan Of Care: Eloise Hebert PT, DPT Start of Care Date: 01/16/23 Onset Date: 01/09/23 Plan of Care Certification Date: 02/19/23 Next Certification Due Date: 04/20/23 REHABILITATION AND SPORTS THERAPY PHYSICAL THERAPY TREATMENT NOTE ASSESSMENT: Tate Baltazar tolerated the session with expected muscle soreness. He demonstrated difficulty with Active abduction above 90 degrees. Patient able to actively flex to 148 degrees. The patient will continue to benefit from ongoing skilled physical therapy to progress toward set goals. PLAN FOR NEXT VISIT: progress phase II SUBJECTIVE: Patient reports I didn't do my exercises for 2 days because I hurt my back. Pain: Pain Pain Level: () Pain Location: Shoulder - Right Post Treatment Pain Post Treatment Pain Level: No Change OBJECTIVE MEASURES WITH LEVEL OF FUNCTION: UE AROM R Shoulder Flex: 148 Degrees R Shoulder Internal Rotation (Functional): T9 R Shoulder External Rotation (Functional): C7 TREATMENT: Therapeutic Exercise: 1: Scifit no resistance x6 minutes with reverse at half 2: Ashley flexion 10s x15, ashley abduction 10s x15 3: wall walk into flexion x 10 4: wall wipe CW/CCW x 10 5: Cross body adduction 3 x 10 seconds 6: bilateral active flexion x 10 7: bilateral abduction to 90 degree x 10 8: [place] behind back CW/CCW x 10 9: standing bilateral ER x 10 10: SL ER x 10 11: SL abduction x 10 Skilled Intervention: Patient was educated in proper exercise technique and purpose for exercises. Skilled judgment was used in selection of appropriate interventions. Correct performance of therapeutic exercises was facilitated with verbal and visual cuing. Billing Therapeutic Exercise Treatment Minutes: 39 Skilled Treatment Time Minutes (timed and untimed codes): 39 Total Session Time (minutes): 39 Session Start Time : 1109 Session Stop Time : 1148 [facility]10-31-[facility] NoteHNO ID: [id number] Author: Eloise Hebert PT Service: ? Author Type: Physical Therapist Type: Progress Notes Filed: 03/17/2023 12:00 PM Note Text: Episode Visit Count: 9 Therapist That Will Accept/Oversee The Plan Of Care: Eloise Hebert PT, DPT Start of Care Date: 01/16/23 Onset Date: 01/09/23 Plan of Care Certification Date: 02/19/23 Next Certification Due Date: 04/20/23 Patient Identified by Name and Date of : Yes REHABILITATION AND SPORTS THERAPY PHYSICAL THERAPY TREATMENT NOTE ASSESSMENT: Tate Baltazar tolerated the session with no issues. He demonstrated improvements in shoulder flexion and tolerance to exercises. Seems to be keeping up with exercises at home based on improvements. The patient will continue to benefit from ongoing skilled physical therapy to progress toward set goals. PLAN FOR NEXT VISIT: progress phase II SUBJECTIVE: Pt. reports that he is in pain, but about normal for his usual pain he has. States he has been using his arm a little bit- using that arm to drink with etc. Avoiding anything strenuous. Doing fine with exercises at home. Feels like it is getting looser. Pain: Pain Pain Level: 8 Pain Location: Shoulder - Right OBJECTIVE MEASURES WITH LEVEL OF FUNCTION: UE PROM R Shoulder Flex: 155 Degrees (supine wand) TREATMENT: Therapeutic Exercise: 1: Scifit no resistance x6 minutes with reverse at half 2: Ashley flexion 10s x15, ashley abduction 10s x15 3: wall walk into flexion x 10 4: wall wipe CW/CCW x 10 5: Wand ER with abduction 10s x10 6: Wand scaption with abduction 10s x10 7: Standing wand extension x10 8: Standing wand IR x10 9: Standing wand abduction 10 x 10: Standing wand flexion x 10 Skilled Intervention: Patient was educated in proper exercise technique and purpose for exercises. Reviewed and educated patient on additions/changes for home exercise program as above (*). Skilled judgment was used in selection of appropriate interventions. Provided written instruction for home exercise program to facilitate proper performance and compliance. Correct performance of therapeutic exercises was facilitated with verbal and visual cuing. Billing Therapeutic Exercise Treatment Minutes: 38 Skilled Treatment Time Minutes (timed and untimed codes): 38 Total Session Time (minutes): 38 Session Start Time : 1118 Session Stop Time : 1156 [facility] History of Present illness Narrative * Eloise Hebert, PT - 03/17/2023 11:19 AM EDT Episode Visit Count: 9 Therapist That Will Accept/Oversee The Plan Of Care: Eloise Hebert PT, DPT Start of Care Date: 01/16/23 Onset Date: 01/09/23 Plan of Care Certification Date: 02/19/23 Next Certification Due Date: 04/20/23 Patient Identified by Name and Date of : Yes REHABILITATION AND SPORTS THERAPY PHYSICAL THERAPY TREATMENT NOTE ASSESSMENT: Tate Baltazar tolerated the session with no issues. He demonstrated improvements in shoulder flexion and tolerance to exercises. Seems to be keeping up with exercises at home based on improvements. The patient will continue to benefit from ongoing skilled physical therapy to progresstoward set goals. PLAN FOR NEXT VISIT: progress phase II SUBJECTIVE: Pt. reports that he is in pain, but about normal for his usual pain he has. States he has been using his arm a little bit- using that arm to drink with etc. Avoiding anything strenuous. Doing fine with exercises at home. Feels like it is getting looser. Pain: Pain Pain Level: 8 Pain Location: Shoulder - Right OBJECTIVE MEASURES WITH LEVEL OF FUNCTION: UE PROM R Shoulder Flex: 155 Degrees (supine wand) TREATMENT: Therapeutic Exercise: 1: Scifit no resistance x6 minutes with reverse at half 2: Ashley flexion 10s x15, ashley abduction 10s x15 3: wall walk into flexion x 10 4: wall wipe CW/CCW x 10 5: Wand ER with abduction 10s x10 6: Wand scaption with abduction 10s x10 7: Standing wand extension x10 8: Standing wand IR x10 9: Standing wand abduction 10 x 10: Standing wand flexion x 10 Skilled Intervention: Patient was educated in proper exercise technique and purpose for exercises. Reviewed and educated patient on additions/changes for home exercise program as above (*). Skilled judgment was used in selection of appropriate interventions. Provided written instruction for home exercise program to facilitate proper performance and compliance. Correct performance of therapeutic exercises was facilitated with verbal and visual cuing. Billing Therapeutic Exercise Treatment Minutes: 38 Skilled Treatment Time Minutes (timed and untimed codes): 38 Total Session Time (minutes): 38 Session Start Time : 1118 Session Stop Time : 1156 Eloise Hebert PT documented in this encounterAultman [facility]10-24-2023 NoteHNO ID: [id number] Author: Franchesca Larson PTA Service: ? Author Type: Conference Coordinator Type: Progress Notes Filed: 03/10/2023 12:32 PM Note Text: Episode Visit Count: 8 Therapist That Will Accept/Oversee The Plan Of Care: Eloise Majcher, PT, DPT Start of Care Date: 01/16/23 Onset Date: 01/09/23 Plan of Care Certification Date: 02/19/23 Next Certification Due Date: 04/20/23 REHABILITATION AND SPORTS THERAPY PHYSICAL THERAPY TREATMENT NOTE ASSESSMENT: Tate Baltazar tolerated the session with expected muscle soreness. He demonstrated improvements in tolerance to standing wand flexion ( able to reach to 147 degrees ) . Patient exhibits difficulty with large circles on door in CW direction, modified to a smaller [place] with improved response. Patient exhibits improving passive abduction. The patient will continue to benefit from ongoing skilled physical therapy to progress toward set goals. PLAN FOR NEXT VISIT: progress phase II SUBJECTIVE: Patient reports I am in constant pain. Able to dress and wash hair and drive. Able to feed wood stove. Difficult no to use my arm. Pain: Pain Pain Level: 8 Pain Location: Shoulder - Right Post Treatment Pain Post Treatment Pain Level: No Change OBJECTIVE MEASURES WITH LEVEL OF FUNCTION: UE PROM R Shoulder Flex: 153 Degrees (in supine with wand) R Shoulder ABduction: 140 Degrees TREATMENT: Therapeutic Exercise: 1: Scifit no resistance x6 minutes with reverse at half 2: [place] flexion 10s x15 3: wall walk into flexion x 10 4: wall wipe CW/CCW x 10 5: Standing wand flexion x 10 6: Standing wand abduction 10 x 7: Standing wand extension x10 8: Standing wand IR x10 9: Bicep curl 2lb x10, 2 sets Skilled Intervention: Patient was educated in proper exercise technique and purpose for exercises. Skilled judgment was used in selection of appropriate interventions. Correct performance of therapeutic exercises was facilitated with verbal and visual cuing. Manual Therapy: 1: Passive R flexion, abduction, ER, IR with end range stretching Skilled Intervention: Manual skills to improve joint mobility, ROM, and decrease pain. Utilized anatomy knowledge of the therapist, and assessment of patient's response to intervention. Billing Therapeutic Exercise Treatment Minutes: 30 Manual TherapyTreatment Minutes: 8 Skilled Treatment Time Minutes (timed and untimed codes): 38 Total Session Time (minutes): 38 Session Start Time : 1150 Session Stop Time : 1228 Franchesca Larson PTATrumbull [facility] [id number] History of Present illness Narrative* Franchesca Larson PTA - 03/10/2023 11:50 AM EDT Episode Visit Count: 8 Therapist That Will Accept/Oversee The Plan Of Care: Eloise Hebert PT, DPT Start of Care Date: 01/16/23 Onset Date: 01/09/23 Plan of Care Certification Date: 02/19/23 Next Certification Due Date: 04/20/23 REHABILITATION AND SPORTS THERAPY PHYSICAL THERAPY TREATMENT NOTE ASSESSMENT: Tate Baltazar tolerated the session with expected muscle soreness. He demonstrated improvements in tolerance to standing wand flexion ( able to reach to 147 degrees ) . Patient exhibits difficulty with large circles on door in CW direction, modified to a smaller [place] with improved response. Patient exhibits improving passive abduction. The patient will continue to benefit from ongoing skilled physical therapy to progress toward set goals. PLAN FOR NEXT VISIT: progress phase II SUBJECTIVE: Patient reports I am in constant pain. Able to dress and wash hair and drive. Able to feed wood stove. Difficult no to use my arm. Pain: Pain Pain Level: 8 Pain Location: Shoulder - Right Post Treatment Pain Post Treatment Pain Level: No Change OBJECTIVE MEASURES WITH LEVEL OF FUNCTION: UE PROM R Shoulder Flex: 153 Degrees (in supine with wand) R Shoulder ABduction: 140 Degrees TREATMENT: Therapeutic Exercise: 1: Scifit no resistance x6 minutes with reverse at half 2: Ashley flexion 10s x15 3: wall walk into flexion x 10 4: wall wipe CW/CCW x 10 5: Standing wand flexion x 10 6: Standing wand abduction 10 x 7: Standing wand extension x10 8: Standing wand IR x10 9: Bicep curl 2lb x10, 2 sets Skilled Intervention: Patient was educated in proper exercise technique and purpose for exercises. Skilled judgment was used in selection of appropriate interventions. Correct performance of therapeutic exercises was facilitated with verbal and visual cuing. Manual Therapy: 1: Passive R flexion, abduction, ER, IR with end range stretching Skilled Intervention: Manual skills to improve joint mobility, ROM, and decrease pain. Utilized anatomy knowledge of the therapist, and assessment of patient's response to intervention. Billing Therapeutic Exercise Treatment Minutes: 30 Manual TherapyTreatment Minutes: 8 Skilled Treatment Time Minutes (timed and untimed codes): 38 Total Session Time (minutes): 38 Session Start Time : 1150 Session Stop Time : 1228 Franchesca Larson PTA documented in this encounterAultman [facility]10-19-[facility] Surgical operation note* Operative Report - Rowan Boateng DO - 03/05/2023 1:06 PM EDTSummary: Right Knee steroidal injection PROCEDURE: Right Knee steroidal injection DATE OF SERVICE: March 05, 2023 PREPROCEDURE DIAGNOSIS: 1. Right knee OA POSTPROCEDURE DIAGNOSIS: same ANESTHESIA: local COMPLICATIONS: none CONSENT: Risks of the procedure including bleeding, infection, nerve damage, seizure, abscess formation, hematoma formation, headache, failure of the pain to improve and potential worsening of the pain, were explained in full to the patient who verbalized understanding and wishes to proceed with the injection at this time. Written informed consent was thereby obtained. BRIEF HISTORY: see chart FUNCTIONAL ASSESSMENT: Patient had over 50% relief from the last right knee injection DESCRIPTION OF PROCEDURE: After written informed consent was obtained as above, the patient was placed on the examination room table in the seated position. The right knee was flexed and the joint space was identified via fluoroscopic guidance in the anterior/posterior view. The skin was sterilely prepped with ChloroPrep swabs. A sterile drape was applied. An injectate consisting of 4 ml 0.25% Marcaine mixed with Kenalog 40 mg was drawn up into a syringe. The skin and subcutaneous tissues were infiltrated with 3 ml 0.25% Marcaine using a 25 gauge 1 inch needle. A 22 gauge 3.5 inch spinal needle was advanced toward the right medial aspect of the knee joint space. Negative Synovial fluid was aspirated. After negative aspiration to heme, a total of 1 ml of Isovue M-200 contrast was injected. The rightknee joint space was delineated with the aid of fluoroscopic guidance. After negative aspiration toheme, 4 ml 0.25% Marcaine mixed with Kenalog 40 mg was slowly injected. There were no complications noted upon injection. The needle tip was removed intact. The patient remained neurovascularly intact both pre- and postprocedure. The area was wiped clean and a Band-Aid was applied as appropriate. The patient was transferred to the recovery area where their VSS remained stable. After a period ofobservation, the patient was discharged home in good condition. documented in this encounterAult[facility]10-11-2023 Miscellaneous Notes* Telephone Encounter - Edelmira Perera RN - 02/25/2023 2:29 PM EDT Shane will send Edelmira Perera RN February 25, 2023 2:29 PM * Telephone Encounter - Rowan Boateng DO - 02/25/2023 2:07 PM EDT Order placed. Please fax to [facility] in [place]. * Telephone Encounter - Pratibha Deras RN - 02/25/2023 9:04 AM EDT Pt called with informationm below, he states that both doctors do the evals and SCS. He states thathe doesn't care which doctor. Please advise. Pratibha Deras RN February 25, 2023 9:05 AM * Telephone Encounter - Rowan Boateng DO - 02/24/2023 10:53 PM EDT He has to call them to see if they do scstim and itp pump psych evaluations. * Telephone Encounter - Nabila Moses RN - 02/23/2023 1:37 PM EDT Pt called to report that he is unable to see Dr Doan for the psych eval due to insurance. He called his insurance company and they gave him to names that are covered. 1) Dr Sebastian Hunter in [place]- 2) Dr Emma Valdez in [place] . Please advise Nabila Moses RN February 23, 2023 1:41 PM documented in this encounterAultman [facility]10-10-2023 NoteHNO ID: [id number] Author: Eloise Hebert PT Service: ? Author Type: Physical Therapist Type: Progress Notes Filed: 02/24/2023 1:12 PM Note Text: Episode Visit Count: 7 Therapist That Will Accept/Oversee The Plan Of Care: Eloise Hebert PT, DPT Start of Care Date: 01/16/23 Onset Date: 01/09/23 Plan of Care Certification Date: 02/19/23 Next Certification Due Date: 04/20/23 Patient Identified by Name and Date of : Yes REHABILITATION AND SPORTS THERAPY PHYSICAL THERAPY TREATMENT NOTE ASSESSMENT: Tate Baltazar tolerated the session with no issues. He demonstrated improvements in external rotation ROM in supine with wand. Responds well to passive stretching and states he feels he gets the most out of this. Initiated gentle bicep strengthening today, still only working isometrics for RTC strength as he is still phase II. . The patient will continue to benefit from ongoing skilled physical therapy to progress toward set goals. PLAN FOR NEXT VISIT: progress phase II SUBJECTIVE: Pt. reports that he has been doing the stretches at home. Still feels tight. Was lifting a propane tank over the weekend, knows hes not supposed to. Pain: OBJECTIVE MEASURES WITH LEVEL OF FUNCTION: UE PROM R Shoulder Flex: 145 Degrees (wand supine) R Shoulder External Rotation: 60 Degrees TREATMENT: Therapeutic Exercise: 1: Scifit no resistance x6 minutes with reverse at half 2: Ashley flexion 10s x15 3: Wand flexion 10s x15 4: Wand scaption with abduction 10s x10 5: Wand ER with abduction 10s x10 6: Wand chest press x10 7: Bicep curl 2lb x10 8: Hammer curl 2lb x10 9: Supination pronation 2lb - holding end of weight x20 10: Wrist radial deviation 2lb x10 Skilled Intervention: Patient was educated in proper exercise technique and purpose for exercises. Reviewed and educated patient on additions/changes for home exercise program as above (*). Skilled judgment was used in selection of appropriate interventions. Provided written instruction for home exercise program to facilitate proper performance and compliance. Manual Therapy: 1: Passive R flexion, abduction, ER, IR with end range stretching Skilled Intervention: Manual skills to improve joint mobility, ROM, and decrease pain. Utilized anatomy knowledge of the therapist, and assessment of patient's response to intervention. Billing Therapeutic Exercise Treatment Minutes: 30 Manual TherapyTreatment Minutes: 8 Skilled Treatment Time Minutes (timed and untimed codes): 40 Total Session Time (minutes): 40 Session Start Time : 1230 Session Stop Time : 1310 Barbara GarciaAv[facility] Health [facility] [id number] History of Present illness Narrative * Eloise Hebert, PT - 02/24/2023 12:31 PM EDT Episode Visit Count: 7 Therapist That Will Accept/Oversee The Plan Of Care: Eloise Hebert PT, DPT Start of Care Date: 01/16/23 Onset Date: 01/09/23 Plan of Care Certification Date: 02/19/23 Next Certification Due Date: 04/20/23 Patient Identified by Name and Date of : Yes REHABILITATION AND SPORTS THERAPY PHYSICAL THERAPY TREATMENT NOTE ASSESSMENT: Tate Baltazar tolerated the session with no issues. He demonstrated improvements in external rotation ROM in supine with wand. Responds well to passive stretching and states he feels he gets the most out of this. Initiated gentle bicep strengthening today, still only working isometrics for RTC strength as he is still phase II. . The patient will continue to benefit from ongoing skilled physical therapy to progress toward set goals. PLAN FOR NEXT VISIT: progress phase II SUBJECTIVE: Pt. reports that he has been doing the stretches at home. Still feels tight. Was lifting a propane tank over the weekend, knows hes not supposed to. Pain: OBJECTIVE MEASURES WITH LEVEL OF FUNCTION: UE PROM R Shoulder Flex: 145 Degrees (wand supine) R Shoulder External Rotation: 60 Degrees TREATMENT: Therapeutic Exercise: 1: Scifit no resistance x6 minutes with reverse at half 2: Ashley flexion 10s x15 3: Wand flexion 10s x15 4: Wand scaption with abduction 10s x10 5: Wand ER with abduction 10s x10 6: Wand chest press x10 7: Bicep curl 2lb x10 8: Hammer curl 2lb x10 9: Supination pronation 2lb - holding end of weight x20 10: Wrist radial deviation 2lb x10 Skilled Intervention: Patient was educated in proper exercise technique and purpose for exercises. Reviewed and educated patient on additions/changes for home exercise program as above (*). Skilled judgment was used in selection of appropriate interventions. Provided written instruction for home exercise program to facilitate proper performance and compliance. Manual Therapy: 1: Passive R flexion, abduction, ER, IR with end range stretching Skilled Intervention: Manual skills to improve joint mobility, ROM, and decrease pain. Utilized anatomy knowledge of the therapist, and assessment of patient's response to intervention. Billing Therapeutic Exercise Treatment Minutes: 30 Manual TherapyTreatment Minutes: 8 Skilled Treatment Time Minutes (timed and untimed codes): 40 Total Session Time (minutes): 40 Session Start Time : 1230 Session Stop Time : 1310 Eloise Hebert PT documented in this encounterAultman [facility]10-06-2023 NoteHNO ID: [id number] Author: Mal Gotti MD Service: ? Author Type: Physician Type: Progress Notes Filed: 02/20/2023 9:34 AM Note Text: PAIN EVALUATION 02/13/2023 1257 Pain Level: 7 Pain Location: Shoulder-Right Description: Throbbing;Spasm;Radiating;Tingling;Numbness Frequency: Continuous Intervention/Comfort measure: Cold;Exercise;Support surface tizandine Comments: wearing sling, PT currently Tate Baltazar presents today for: Second post-surgery follow up CHANGES SINCE LAST VISIT: Doing Phase 1 physical therapy with expected progress. Pain improving. There were no vitals taken for this visit. EXAMINATION FINDINGS: Resolving shoulder edema and ecchymosis. Incisions healed Mild discomfort with gentle passive range of motion within a limited range. Active elevation to 120 today. No crepitation or catching with movement. IMAGING: No imaging today MEDICAL DECISION MAKING: Functional Plan: Physical therapy Phase 2 Continue lifting limit 1 pound or less, avoid sudden movements with the shoulder Sling may be discontinued. Tylenol/NSAID use encouraged for control of pain. Return in 6 weeks for repeat examination. Information for medical decision making today comes from review of the following data: History, exam, imaging Mal Gotti MD Shoulder AND Elbow Surgeon Department of Orthopaedic Surgery [facility] Medical Decision Making: Medical Decision Making Level: 1 - N/AClChildren[facility] History of Present illness Narrative* Mal Gotti MD - 02/20/2023 9:33 AM EDT Images from the original note were not included. PAIN EVALUATION 02/13/2023 1257 Pain Level: 7 Pain Location: Shoulder-Right Description: Throbbing;Spasm;Radiating;Tingling;Numbness Frequency: Continuous Intervention/Comfort measure: Cold;Exercise;Support surface tizandine Comments: wearing sling, PT currently Tate Baltazar presents today for: Second post-surgery follow up CHANGES SINCE LAST VISIT: Doing Phase 1 physical therapy with expected progress. Pain improving. There were no vitals taken for this visit. EXAMINATION FINDINGS: Resolving shoulder edema and ecchymosis. Incisions healed Mild discomfort with gentle passive range of motion within a limited range. Active elevation to 120today. No crepitation or catching with movement. IMAGING: No imaging today MEDICAL DECISION MAKING: Functional Plan: Physical therapy Phase 2 Continue lifting limit 1 pound or less, avoid sudden movements with the shoulder Sling may be discontinued. Tylenol/NSAID use encouraged for control of pain. Return in 6 weeks for repeat examination. Information for medical decision making today comes from review of the following data: History, exam, imaging Mal Gotti MD Shoulder & Elbow Surgeon Department of Orthopaedic Surgery [facility] Medical Decision Making: Medical Decision Making Level: 1 - N/A documented in this encounterAultman [facility]10-05-2023 NoteHNO ID: [id number] Author: Eloise Hebert PT Service: ? Author Type: Physical Therapist Type: Progress Notes Filed: 02/19/2023 11:32 AM Note Text: Episode Visit Count: 6 Therapist That Will Accept/Oversee The Plan Of Care: Eloise Hebert PT, DPT Start of Care Date: 01/16/23 Onset Date: 01/09/23 Plan of Care Certification Date: 02/19/23 Next Certification Due Date: 04/20/23 Patient Identified by Name and Date of : Yes REHABILITATION AND SPORTS THERAPY PHYSICAL THERAPY PROGRESS REPORT PLAN OF CARE UPDATE: Assessment: Tate Baltazar demonstrates improvements in reaching overhead and dressing. He has progressed toward goals, though slower than expected. Patient continues to present with impairments in overall function, range of motion, and strength that interfere with driving, sleeping, physical activities, recreational activities, lifting, working, cleaning, cooking, dressing, grooming, bed mobility, reaching behind back, reaching overhead, use hand with arm at shoulder level . Current prognosis is Fair due to: multiple co- morbidities . He will benefit from continued skilled therapy services to meet the updated goals for this plan of care as noted below. Goals for Episode of Care: created on 01/16/23 through 04/20/23 Updated 02/19/23 [place] in home exercise program. ONGOING Patient will decrease pain rating by 2 points to meet minimal clinical important difference for numeric pain rating scale. NOT MET Patient will increase active ROM of R shoulder elevation to 160 to allow pt to to improve performance of ADLs. PROGRESSING Patient will demonstrate increase in RUE strength to 4+/5 during manual muscle testing in order to improve function for prior functional tasks. NOT ASSESSED Perform dressing without pain. PROGRESSING Patient Goals: Improve mobility, get back to motorcycle riding Planned Interventions, Frequency, and Duration: 1x/week, 8 weeks Total Number of Visits Planned: 8 Patient to be seen for Therapeutic exercise (64668), Neuromuscular re-education (29963), Manual therapy (02948), Therapeutic activities (42042), Self-prison management (38994), Gait Training (17562), Patient/Family/Caregiver Education PLAN FOR NEXT VISIT: progress phase III SUBJECTIVE: Pt. reports that he has had to use his other arms to help the arm up sometimes when he does the stretches overhead with the stick. Arm is feeling okay at the moment.. Functional Limitations: driving, sleeping, physical activities, recreational activities, lifting, working, cleaning, cooking, dressing, grooming, bed mobility, reaching behind back, reaching overhead, use hand with arm at shoulder level Pain: PROMIS Scales Higher is Better 01/15/2023 12/15/2022 08/14/2022 Phys Func - Score 23 (severe dysfunction) 37 (moderate dysfunction) 40 (mild dysfunction) Phys Func - Percentile 0 % 10 % 16 % Self-Eff Symptom - Score 41 (Average) - - Self-Eff Symptom - Percentile 18 % - - T-scores: mean of general population = 50. 5 points is clinically meaningfully difference Percentiles provide an indication of how the patient's score ranks in relation to the general population. Higher percentile rankings indicate better function/quality of life. 50th percentile is the average of the general population and indicates half of respondents had a worse score. OBJECTIVE MEASURES WITH LEVEL OF FUNCTION: Posture / Alignment Posture: Forward head, Rounded shoulders UE PROM R Shoulder Flex: 145 Degrees (with wand, supine) R Shoulder Internal Rotation: 45 Degrees R Shoulder External Rotation: 45 Degrees TREATMENT: Therapeutic Exercise: 1: Scifit no resistance x6 minutes with reverse at half 2: Ashley flexion 10s x15 3: Wand flexion 10s x15 4: Wand ER with abduction 10s x10 5: Isometric flexion 10s x5 6: Isometric abduction 10s x10 7: Isometric ER 10s x5 8: Isometric IR 10s x5 Skilled Intervention: Patient was educated in proper exercise technique and purpose for exercises. Reviewed and educated patient on additions/changes for home exercise program as above (*). Skilled judgment was used in selection of appropriate interventions. Provided written instruction for home exercise program to facilitate proper performance and compliance. Correct performance of therapeutic exercises was facilitated with verbal and visual cuing. Manual Therapy: 1: Passive R flexion, abduction, ER, IR with end range stretching Skilled Intervention: Manual skills to improve joint mobility, ROM, and decrease pain. Utilized anatomy knowledge of the therapist, and assessment of patient's response to intervention. Billing Skilled Treatment Time Minutes (timed and untimed codes): 40 Total Session Time (minutes): 41 Session Start Time : 1031 Session Stop Time : 1112 [facility] History of Present illness Narrative * Rowan Boateng, DO - 02/17/2023 1:00 PM EDTSummary: Pain Management follow-up DATE: February 17, 2023 Chief Complaint: lower back, migraines right arm, and right leg, right knee History of Present Illness: Tate Baltazar is a 47 year old male being seen at [facility] for a evaluation and/or management of their chronic pain. The patient was last seen in the office byDr. Boateng on 12/09/2022 and the plan of care was as follows: Continue Percocet 10/325 mg tablet TID- Postop to take 6 tablet per day prn. AWAIT REFILL UNTIL UDSRESULTS REVIEWED. MAY NEED WEEKLY SCRIPT FOR COMPLIANCE FOR UPCOMING SURGERY ONLY. Continue Gabapentin 600 mg tablet TID Continue Zanaflex 6 mg tablet at bedtime Continue HEP. Continue to use knee brace. Continue TENS unit for shoulder pain Discontinue lido-prilo cream and diclofenac gel - not using Repeat right knee injection 4-6 weeks after shoulder surgery- last done 09/10/2022 60% relief. May repeat L5-S1 LESI prn Upcoming right rotator cuff surgery on 01/09/[address] Gotti Discussed cervical steroidal injections Discussed wearing compression stockings Follow-up in 2-3 months with INTERNETWORKING TECHNICIAN He had right knee steroidal injections on 09/10/2022 with 60% relief that lasted for 2 months. He had right shoulder injections on 10/01/2022 with 60% relief that lasted for 2 months. Today he thought he was getting his right knee cortisone injection. He states he started drinking again because his narcotic medications were taken away. He had an inconsistent UDS, no Percocet was noted on 11/19/22 and 12/16/21. We discussed other options of pain medications including ITP pump and coverage for back andlegs. We discussed [employer] SCS trial or ITP trial. He has tried CBD and medical THC from his wifewith no benefit. He refuses to get a medical marijuana card because he doesn't want to give up his guns. He had a right rotator cuff surgery on 01/09/[address] Gotti and he continues to have increased post-op pain. He was given narcotics for post op pain x 1.5 weeks from his surgeon. He continues to participate in PT with benefit. He takes the Gabapentin and Zanaflex as prescribed with benefit. Location: lower back, migraines right arm, and right leg, right knee Intensity: 10/10 without medications. with medication is 5/10 Radiation: right leg and right foot Timing:constant Character: sharp, throbbing, and burning Numbness/tingling: yes, rt leg and right arm From elbow to hand Worsening factors: Increased activity Radiation: to neck and shoulder Relieving factors: meds, rest, reclining right leg falls: 2 falls in the past 2 weeks. Stumbled a couple of times. Denies poor balance He had diarrhea and constipation. He has a family history with his dad with similar issues. He has not been diagnosed/tested for Crohn's disease. He denies any bladder dysfunction. He gets 4-6 hours of uninterrupted sleep at nights and wakes up feeling unrested in the morning. Hedenies any mental health issues. The patient is currently prescribed gabapentin and Zanaflex from our office. He reports difficulty sleeping. The medications are partially effective. PDMP website checked and validated. The OARRS report has been reviewed and is consistent with the patients medical history and medication intake. Last UDS: inconsistent , no Percocet noted 11/19/22 and 12/16/21 Summary Report Date Value Ref Range Status 12/09/2022 FINAL Final Comment: Gabapentin, MS, Ur RFX Acetaminophen, MS, Ur RFX ToxAssure Flex 23, Ur Test Result Flag Units Drug Present Gabapentin PRESENT Acetaminophen PRESENT Test Result Flag Units Ref Range Creatinine 75 mg/dL >=20 Declared Medications: Medication list was not provided. For clinical consultation, please call . Summary Report (Summary) Date Value Ref Range Status 12/16/2021 FINAL Final Comment: TOXASSURE COMP DRUG ANALYSIS,UR Test Result Flag Units Drug Present Gabapentin PRESENT Tizanidine PRESENT Bupropion PRESENT Hydroxybupropion PRESENT Hydroxybupropion is an expected metabolite of bupropion. Duloxetine PRESENT Fluoxetine PRESENT Norfluoxetine PRESENT Norfluoxetine is an expected metabolite of fluoxetine. Acetaminophen PRESENT Diphenhydramine PRESENT Doxylamine PRESENT Dextromethorphan PRESENT Dextrorphan/Levorphanol PRESENT Dextrorphan is an expected metabolite of dextromethorphan, an [id number] or prescription cough suppressant. Dextrorphan cannot be distinguished from the scheduled prescription medication levorphanol by the method used for analysis. Verapamil PRESENT Test Result Flag Units Ref Range Creatinine 130 mg/dL >=20 Declared Medications: Medication list was not provided. For clinical consultation, please call . Chronic Pain Functional Assessment Tools Pain Disability Index: Pain Disability Index 12/09/2022 02/17/2023 Family/Home Responsibilities 8 5 Recreation 8 5 Social Activity 8 5 Occupation 9 5 Sexual Behavior 8 5 Self Care 0 No disability 5 Life Support Activity 0 No disability 5 PDI Score 41 35 Pain Enjoyment of Life and General Activity Scale (0-10): PEG: A Three-Item Scale Assessing Pain Intensity and Interference What number best describes your pain on average in the past week?: 5 (02/17/2023 12:00 PM) What number best describes how, during the past week, pain has interfered with your enjoyment of life?: 5 (02/17/2023 12:00 PM) What number best describes how, during the past week, pain has interfered with your general activity?: 6 (02/17/2023 12:00 PM) REVIEW OF SYSTEMS: GENERAL: No weight loss, malaise or fevers RESPIRATORY: Negative for cough, hemoptysis, wheezing, COPD, dyspnea or shortness of breath. CARDIOVASCULAR: Negative for chest pain, leg swelling, hypertension, CHF or palpitations GI: No nausea, vomiting, or diarrhea. MUSCULOSKELETAL: lower back, migraines right arm, and right leg, right knee PAST MEDICAL HISTORY Diagnosis Date Back pain Depression Dysphagia due to recent stroke 10/20/2017 Hypertension Migraines 2001 JANNETTE (obstructive sleep apnea) 03/17/2019 RSD lower limb right leg RSD upper limb right hand PAST SURGICAL HISTORY Procedure Laterality Date APPENDECTOMY CARPAL TUNNEL Left 2014 COLONOSCOPY 22's with EGD EGD TRANSORAL BIOPSY SINGLE/MULTIPLE 10/02/15 EXCISION PILONIDAL CYST/SINUS EXTENSIVE 07/05/10 closed PAST SURGICAL HISTORY OF right knee surgery TONSILLECTOMY PRIMARY/SECONDARY <AGE 14 Tonsillectomy VASECTOMY UNI/BI SPX W/POSTOP SEMEN EXAMS Bilateral 05/23/2016 FAMILY HISTORY Problem Relation Age of Onset Prostate Cancer Father Hypertension Father Social History Tobacco Use Smoking status: Never Passive exposure: Never Smokeless tobacco: Never Vaping Use Vaping Use: Never used Substance Use Topics Alcohol use: Not Currently Comment: weekly Drug use: No Work Status: disabled Allergies: Hydrochlorothiazide Other: See Comments Sulfamethoxazole-Tr* Unknown, Other: See Comments Acetaminophen Other: See Comments Comment:Rebound headaches Acetaminophen-Codei* Unknown Hydrocodone Other: See Comments Kihei Juice Unknown Kihei Oil Hives, Other: See Comments Pseudoephedrine Unknown Vicodin [Hydrocodon* Mental Status Change, Itching Aripiprazole Mental Status Change Current Outpatient Medications Medication Sig tiZANidine (ZANAFLEX) 4 mg tablet Take one in the afternoon and evening and take 2 tabs at bedtime. cyclobenzaprine (FLEXERIL) 5 mg tablet Take 1 tablet by mouth two times a day as needed for muscle spasm. oxyCODONE-acetaminophen (PERCOCET) 5-325 mg tablet Take 1-2 tablets by mouth every 4 hours as needed for pain. ondansetron orally disintegrating (ZOFRAN ODT) 4 mg disintegrating tablet Take 1 tablet by mouth every 8 hours as needed for nausea/vomiting. docusate sodium (COLACE) 100 mg capsule Take 1 capsule by mouth twice daily. naloxone 4 mg/actuation nasal spray (NARCAN) Use 1 spray in one nostril as needed for overdose. Mayrepeat every 2 to 3 min in alternating nostrils until medical assistance is available verapamil ER (VERELAN) 240 mg 24 hr capsule Take 240 mg by mouth once daily. naproxen (NAPROSYN) 250 mg tablet Take 250 mg by mouth. buPROPion XL (WELLBUTRIN XL) 300 mg 24 hr tablet TAKE 1 TABLET BY MOUTH EVERY 24 HOURS. REPLACES PREVIOUS PRESCRIPTION FOR BUPROPION 150 MG TABLET valsartan (DIOVAN) 160 mg tablet Take 160 mg by mouth every morning. cetirizine (ZYRTEC) 10 mg tablet Take 10 mg by mouth once daily. AJOVY SYRINGE 225 mg/1.5 mL syringe FLUoxetine (PROZAC) 20 mg capsule Take 60 mg by mouth once daily. pantoprazole DR (PROTONIX) 40 mg tablet Take 40 mg by mouth twice daily. potassium chloride ER (K-DUR, KLOR-CON) 20 mEq tablet Take 20 mEq by mouth twice daily. NURTEC ODT 75 mg disintegrating tablet gabapentin (NEURONTIN) 600 mg tablet Take 1 tablet by mouth three times daily for 90 days. Do not start before August 27, 2022. No current facility-administered medications for this visit. PHYSICAL EXAMINATION: Vitals: BP 150/102 Pulse 87 Resp 19 Ht 6' 3.6 (1.92m) Wt 245 lb (111.1kg) SpO2 97% BMI30.15 kg/(m^2). GENERAL: Healthy, alert, no distress, cooperative, Smiling. No antalgic gait. No cane or walker noted. SKIN: Skin color, texture, turgor normal. No rashes or lesions. HEENT: PERRL, EOMI, and normal dentition CARDIAC: Normal S1 and S2; no rubs, murmurs, or gallops LUNGS: Lungs clear to auscultation. Good diaphragmatic excursion. Musculoskeletal: +5/5 motor strength in both legs. Negative SLR signs bilaterally. +2/4 DTR at L4 and S1 reflex. Diminished sensation in right leg L4 and S1 dermatomes. The patient has a straight legrange of motion in a supine position of about 90 degrees on the left and 90 degrees on the right. Negative Ulises's test bilaterally. Negative right knee crepitus is noted. Tenderness is noted along the medial aspect of the right knee joint. No poping or locking noted in the right knee. Medial jointpain with varus and valgus stress movements. Lumbar flexion is 90 degrees and lumbar extension is 10-15 degrees. Toe and heel walking are normal. Poor balance is noted. 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 OARRS report reviewed on February 17, 2023 by Antionette Rojas and is consistent with the patients medical history and medication intake. PLAN: The patient understands the goal of our treatment is a reduction in pain and/or an improved level of functioning with activities of daily living. If at any time the patient does not feel the medications are helping them to achieve these goals, the medications may be discontinued. The patient reports a reduction in pain and/or an improved level of functioning with activities of daily living, denies any significant adverse effects, is compliant with the pain management agreement and there are no signs of medication misuse, abuse or diversion; therefore, the medications will be continued. The documentation for this encounter was entered by Antionette Rojas mobile paramedical examiner for Dr. Rowan Boateng on February 17, 2023 I, Dr. Rowan Boateng, personally performed the services described in this documentation. All medical record entries made by the scribe were at my direction and in my presence. I have reviewed the chart and discharge instructions and agree that the record reflects my personal performance and is accurate and complete. Electronically Signed: Dr. Boateng. February 17, 2023. documented in this encounterA[facility]10-[facility] Instructions* Patient Instructions* Rowan Boateng DO - 02/17/2023 12:47 PM EDT Discontinue Percocet 10/325 mg tablet TID- inconsistent UDS Continue Gabapentin 600 mg tablet TID Continue Zanaflex 6 mg tablet at bedtime Continue HEP. Continue to use knee brace. Continue TENS unit for shoulder pain Continue with PT as scheduled Continue to follow-up with Dr. Gotti - S/P right rotator cuff repair Schedule right knee steroidal injection - last done 09/10/2022 60% relief. Discussed [employer] SCS trial - information given Discussed ITP pump trial - information given Referral to Mental Health provider Dr.Gregg Doan at [email or web address] for SCStim and ITP trial options. Follow-up in 3 months with INTERNETWORKING TECHNICIAN Reduce alcohol consumption. documented in this encounterAultman [facility]10-02-2023 NoteHNO ID: [id number] Author: Mireya Sweet PA-C Service: ? Author Type: Physician Environmental Programs Specialist Type: Progress Notes Filed: 02/16/2023 1:28 PM Note Text: REASON FOR VISIT: routine Patient accompanied by: , Mirella; service dog Shailesh PRINCIPAL NEUROLOGIC DIAGNOSIS: CVA HISTORY OF ILLNESS: Date of onset: 10/23/2017 Narrative Describing Problems since last visit: He was last seen on 08/15/2022 for spasticity consult. He was instructed to increase tizanidine to 2mg tid and 6mg at bedtime to help with spasticity in the right upper and lower extremities. He's had several falls since the last visit, most recently 3 days ago. Typically it's because his legs won't hold him up. He continues to have spasms in the whole right side, despite tizanidine, although he does think it helps somewhat. He's taking . The medication makes him drowsy and he's unable to take a higher dose. Patient Entered Data Tyros No flowsheet data found. Spasticity NRS 12/15/2022 12/15/2022 Spasticity Level 7 7 Spasm Scale 12/15/2022 12/15/2022 08/14/2022 Spasm Frequency Spasms occurring more than once per hour Spasms occurring more than once per hour Infrequent full spasms occuriung less than once per hour Spasm Severity Severe Severe Severe Global Impression of Change No flowsheet data found. Driving issues: No Safety concerns regarding living situations and safety at home: No Risk of falls: Yes frequency often, 0 injuries Domestic Violence: Have you been hit, kicked, punched, or otherwise hurt by someone within the past year? No If so, by whom? Review of Systems PHYSICAL EXAMINATION: Mental Status: There were no deficits of cognition, language or prosody on interview. 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 Strength Right Left Shoulder abduction 5 Elbow flexion 5 Elbow extension 5 Wrist extension 5 Hip flexion 4+ 5 Knee flexion 4+ 5 Knee extension 5 5 Plantarflexion 4 5 Dorsiflexion 3+ 5 Spasticity Right Left Shoulder 0 0 Elbow flexion 0 0 Elbow extension 0 0 Wrist flexion 0 0 Wrist extension 0 0 Finger flexion 0 0 Finger extension 0 0 Hip adduction 0 0 Knee extension 0. 0 Knee flexion 0 0 Plantarflexion 0 0 Modified Al Scale 0 - No increase in tone 1 - Slight increase in tone (catch and release at end of ROM) 1+ - Slight increase in tone, manifested by a catch, followed by minimal resistance throughout remainder (less than half of ROM) 2 - Marked increase in tone through most of the ROM, but affected part(s) easily moved 3 - Considerable increase in tone; passive movement difficult 4 - Affected part(s) rigid in flexion or extension Spasms observed: RUE: no right upper extremity spasms LUE: no left upper extremity spasms RLE: no right lower extremity spasms LLE: no left lower extremity spasms Ambulation Index Score: 2 - Abnormal gait - walks 25 ft in <10 sec without support Gait: Standard gait was normal. No assistive device was required for safe ambulation. Stressed gait was not tested. 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 He describes ongoing pain and spasms on the right side, also recently recovering from R shoulder surgery for torn rotator cuff. Spasms continue despite moderate dose of tizanidine. No spasticity is noted on exam. He agreed to increase night time dose of tizanidine to 8mg. Will add cyclobenzaprine for PRN use. Follow up in 6 months. PLAN 1. Symptomatic medications: tizanidine . Cyclobenzaprine 5mg bid prn spasms. 2. Follow-up: 6 months. The patient was instructed to call should any problems occur in the meantime. [facility] of Present illness Narrative* Mireya Sweet PA-C - 02/16/2023 1:00 PM EDT REASON FOR VISIT: routine Patient accompanied by: , Mirella; service dog Shailesh PRINCIPAL NEUROLOGIC DIAGNOSIS: CVA HISTORY OF ILLNESS: Date of onset: 10/23/2017 Narrative Describing Problems since last visit: He was last seen on 08/15/2022 for spasticity consult. He was instructed to increase tizanidine to 2mg tid and 6mg at bedtime to help with spasticity inthe right upper and lower extremities. He's had several falls since the last visit, most recently 3 days ago. Typically it's because his legs won't hold him up. He continues to have spasms in the whole right side, despite tizanidine, although he does think it helps somewhat. He's taking . The medication makes him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 01/09/23 Plan of Care Certification Date: 01/16/23 Next Certification Due Date: 03/17/23 Patient Identified by Name and Date of : Yes REHABILITATION AND SPORTS THERAPY PHYSICAL THERAPY EVALUATION PLAN OF CARE: Assessment: Tate Baltazar presents s/p R RCR on 01/09/23 that interferes with driving, sleeping, physical activities, recreational activities, lifting, working, cleaning, cooking, dressing, grooming, bed mobility, reaching behind back, reaching overhead, use hand with arm at shoulder level . He presents with impairments in overall function, posture, range of motion, and strength. PROMIS? (Patient-Reported Outcomes Measurement Information System) scores were reviewed and physical function domain identified as a rehabilitation concern. Prognosis for therapy is Good due to: current objective clinical presentation, good overall health status . He will benefit from skilled therapy services to meet the goals established for this plan of care as noted below. Goals for Episode of Care: created on 01/16/23 through 03/17/23 [place] in home exercise program. Patient will decrease pain rating by 2 points to meet minimal clinical important difference for numeric pain rating scale. Patient will increase active ROM of R shoulder elevation to 160 to allow pt to to improve performance of ADLs. Patient will demonstrate increase in RUE strength to 4+/5 during manual muscle testing in order to improve function for prior functional tasks. Perform dressing without pain. Patient Goals: Improve mobility, get back to motorcycle riding Planned Interventions, Frequency, and Duration: Current Frequency: 2x/week Duration: 8 weeks Total Number of Visits Planned: 16 Planned Treatment Interventions: Therapeutic exercise (86667), Neuromuscular re-education (37433), Manual therapy (75402), Therapeutic activities (20254), Self-prison management (64610), Gait Training (37524), Patient/Family/Caregiver Education PLAN FOR NEXT VISIT: continue phase 1 Patient demonstrates good understanding of plan of care and treatment. The above goals and plan of care were discussed and agreed upon by patient/family. SUBJECTIVE: R RCR 01/09/23. Pt. reports he has been doing okay since surgery. Has pain in the shoulder/arm. Reports that he tore the bicep several years ago that he had surgery on before- about 3 years ago. Did not have anything done on the bicep this round. Has stroke history as well. Took two percocets and a muscle relaxer before appt. Taking every 4-6 hours. Using the ice machine at home for an hour at a time. Sleep is poor, but notes that sleep was poor prior. Dressing has been painful but doing okay. HAs had several falls in the last year. 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 Aquatic Screen: No Pain: Pain Pain Level: 7 Pain Location: Shoulder - Right PROMIS Scales Higher is Better 01/15/2023 12/15/2022 08/14/2022 Phys Func - Score 23 (severe dysfunction) 37 (moderate dysfunction) 40 (mild dysfunction) Phys Func - Percentile 0 % 10 % 16 % Self-Eff Symptom - Score 41 (Average) - - Self-Eff Symptom - Percentile 18 % - - T-scores: mean of general population = 50. 5 points is clinically meaningfully difference Percentiles provide an indication of how the patient's score ranks in relation to the general population. Higher percentile rankings indicate better function/quality of life. 50th percentile is the average of the general population and indicates half of respondents had a worse score. OBJECTIVE MEASURES WITH LEVEL OF FUNCTION: Posture / Alignment Posture: Forward head, Rounded shoulders Cervical Spine ROM Cervical ROM : Limitation AROM UE AROM L Shoulder Flex: 180 Degrees L Shoulder ABduction: 170 Degrees L Shoulder Internal Rotation (Functional): T6 L Shoulder External Rotation (Functional): T4 UE PROM R Shoulder Flex: 110 Degrees R Shoulder ABduction: 90 Degrees R Shoulder Internal Rotation: 10 Degrees R Shoulder External Rotation: 25 Degrees UE and Ce (more content not included)...[facility] CenterZsrgkido83-05-8851 NoteHNO ID: [id number] Author: Francisco Shelby APRN.CRNA Service: Anesthesiology Author Type: Nurse Bar Roller Type: Anesthesia Procedure Notes Filed: 01/09/2023 1:44 PM Note Text: ANESTHESIOLOGY PROCEDURE NOTE Airway General Information Procedure Start Time/Medication Administration: 01/09/2023 1:23 PM Patient location during procedure: OR Timeout Performed Pre-procedure: timeout performed Consent Obtained: Yes Patient identity confirmed: arm band, care rock climbing team member and patient Staffing Anesthesiologist: Kathia Oconnor DO HAND GLOVE CLEANER: Francisco Shelby APRN.HAND GLOVE CLEANER SRNA: Vicenta Serrato SRNA Performed by: anesthesiologist, HAND GLOVE CLEANER and SRNA Indications and Patient Condition Indications for airway management: anesthesia Preoxygenated: yes anesthesia circuit Patient position: sniffing Method: asleep Cricoid Pressure: No Manual In-Line Stabilization: No Difficult Mask: No Airway Accessory: oral airway Final Airway Details Final airway type: endotracheal airway Final Endotracheal Airway: ETT Cuffed: yes Successful intubation technique: direct laryngoscopy Endotracheal tube insertion site: oral Blade: Constanza Blade size: #4 ETT size (mm): 7.5 Measured from: lips Measurement (cm): 23 Placement verified by: capnometry Cormack-Lehane Classification: grade I - full view of glottis Number of attempts at approach: 1 Airway trauma: lip Failed airway: no Unrecognized esophageal intubation: no Airway not difficult SIGNATURE: Francisco Shelby APRN.CRNA PATIENT NAME: Tate Baltazar DATE: January 09, 2023 TIME: 1:41 PM CSN: [id number] NoteHNO ID: [id number] Author: Kathia Oconnor DO Service: Anesthesiology Author Type: Physician Type: Anesthesia Procedure Notes Filed: 01/09/2023 1:33 PM Note Text: ANESTHESIOLOGY PROCEDURE NOTE Peripheral Nerve Block General Information Procedure Start Time/Medication Administration: 01/09/2023 12:50 PM Procedure End time: 01/09/2023 12:54 PM Patient location during procedure: pre-op Timeout Performed Pre-procedure: timeout performed Consent Obtained: Yes Patient identity confirmed: arm band, care rock climbing team member and patient Reason for block: post-op pain management/at surgeon's request Staffing Anesthesiologist: Kathia Oconnor DO SRNA: Vicenta Serrato SRNA Performed by: anesthesiologist and SRNA Preparation Sterility Preparation: hand hygiene performed prior to procedure, sterile gloves, drapes, and procedure tray, surgical cap used, mask used, sterile drape used during line insertion, skin prep agent completely dried prior to procedure Site Prep: Chloraprep Pre-Procedure Neuro Exam Location: RUE Sensory: intact Motor: intact Procedure Details Patient Position: supine Monitoring: Pulse OX, EKG and NIBP Block Type Upper Extremity: brachial plexus Approach: interscalene Laterality: right Injection Technique: single-shot Ultrasound Guided: Yes Image in Chart: yes Needle Needle Type: echogenic Needle Gauge: 21 G Needle Length: 100 mm Needle Localization: ultrasound and anatomical landmarks Assessment Injection assessment: negative aspiration, no paresthesia on injection, incremental injection and local visualized surrounding nerve on ultrasound Paresthesia: none Post-Procedure Neuro Exam Expected Regional Anesthesia: Yes Medications Administered dexamethasone sodium phosphate injection (DECADRON) - peripheral nerve block 4 mg - 01/09/2023 12:50:00 PM ropivacaine (PF) 5 mg/mL (0.5 %) injection (NAROPIN) - peripheral nerve block 10 mL - 01/09/2023 12:50:00 PM SIGNATURE: Kathia Oconnor DO PATIENT NAME: Tate Baltazar DATE: January 09, 2023 TIME: 1:31 PM CSN: [id number] Miscellaneous Notes* Telephone Encounter - Rowan Boateng DO - 12/12/2022 8:15 AM EDT Thanks for the update * Telephone Encounter - Edelmira Perera RN - 12/11/2022 12:16 PM EDT Pt notified of below, he asked about post op pain management, I advised that he would have to speakto the surgeon about managing pain, he asked how he is suppose to keep his blood pressure down, I advised him to seek eval with pcp, he verbalized understanding. Edelmira Perera RN December 11, 2022 12:18 PM * Telephone Encounter - Rowan Boateng DO - 12/10/2022 4:08 PM EDT Thanks for the feedback. There is just too much aberrant behavior surrounding his Percocet use. Therefore, no further narcotics will be prescribed. I highly doubt the UDS recently collected will havehis Percocet as well. * Telephone Encounter - Pratibha Deras RN - 12/10/2022 3:33 PM EDT Brian from [facility] called wanting you to know that pt did bring in the Percocet pill bottle but it onlyhad extra strength Tylenol. He states that brand that [facility] does not even carry. Brian did have headquarters pull video and Percocet was in the bottle when it was filled originally. Pratibha Deras RN December 10, 2022 3:35 PM * Telephone Encounter - Pratibha Deras RN - 12/10/2022 3:26 PM EDT Pt called in today stating that he had an appt. yesterday and did a UDS. Pt states that his bottle of Percocet had Tylenol in it, not Percocet. He states that he went to the pharmacy to discuss it with them, he states that they feel confident that they filled the Percocet. Pt was instructed that hehas to keep his medication locked up and safe at all times. He is very concerned that his UDS will not show the percocet again and he will not get post-op medications for after his upcoming surgery. Please advise. Pratibha Deras RN December 10, 2022 3:30 PM documented in this encounterAultman Orrville [facility]07-25-2023 Instructions* Patient Instructions* Rowan Boateng DO - 12/09/2022 11:44 AM EDT Continue Percocet 10/325 mg tablet TID- Postop to take 6 tablet per day prn. AWAIT REFILL UNTIL UDSRESULTS REVIEWED. MAY NEED WEEKLY SCRIPT FOR COMPLIANCE FOR UPCOMING SURGERY ONLY. Continue Gabapentin 600 mg tablet TID Continue Zanaflex 6 mg tablet at bedtime Continue HEP. Continue to use knee brace. Continue TENS unit for shoulder pain Discontinue lido-prilo cream and diclofenac gel - not using Repeat right knee injection 4-6 weeks after shoulder surgery- last done 09/10/2022 60% relief. May repeat L5-S1 LESI prn Upcoming right rotator cuff surgery on 01/09/[address] Gotti Discussed cervical steroidal injections Discussed wearing compression stockings Follow-up in 2-3 months with INTERNETWORKING TECHNICIAN documented in this encounterAultman Orrville [facility]07-25-2023 History of Present illness Narrative* Rowan Boateng DO - 12/09/2022 10:45 AM EDTSummary: Pain Management follow-up DATE: December 09, 2022 Chief Complaint: lower back, migraines right arm, and right leg, right knee History of Present Illness: Tate Baltazar is a 47 year old male being seen at [facility] for a evaluation and/or management of their chronic pain. The patient was last seen in a virtual health visit on 08/20/2022 by Zhao Edgar NP, and the plan of care was as follows: Continue percocet Continue Gabapentin and zanaflex Continue HEP. Continue to use knee brace. Continue TENS unit for shoulder pain Continue lido-prilo cream and diclofenac gel Order repeat right knee injection prn - last done 05/08/22 may repeat L5-S1 LESI prn f/u in 3 months He had a right shoulder steroidal injection on 10/01/2022 with 60% relief that lasted for 2 months. He had a right knee steroidal injection on 09/10/2022 with 60% relief that lasted for 2 months. He reports the steroidal injection done on 05/08/2022 was more effective for his right knee pain. He has upcoming right rotator cuff [facility]20[facility] Gotti. The surgeonwants our office to take over the postop pain coverage. He can take the Percocet up to 6 times per day after surgery. We also discussed wearing compression stockings for leg edema and MIRTA for neck pain in the future. He is taking the mediation as prescribed with good benefit for his pain. He is not using the lido-prilo cream and diclofenac gel. We discussed repeating the right knee injection 4-6weeks after the right shoulder surgery. We discussed the last UDS done on 11/19/2022 which was not consistent with the percocet medication. He claims that he is taking his medications despite having inconsistent urine drug screens. We discussed this at length on his last office visit. We will repeat a nother urine today. If this continues to remain absent for Percocet, all narcotics will be discontinued. Location: lower back, migraines right arm, and right leg, right knee Intensity: 6-7/10 without medications. With Medication is 5/10 Radiation: right leg and right foot Timing:constant Character: sharp, throbbing, and burning Numbness/tingling: yes, rt leg and right arm From elbow to hand Worsening factors: Increased activity Radiation: to neck and shoulder Relieving factors: meds, rest, reclining right leg falls: Denies. Stumbled a couple of times. Denies poor balance He had diarrhea and constipation. He has a family history with his dad with similar issues. He has not been diagnosed/tested for Crohn's disease. He denies any bladder dysfunction. he gets 4-6 hours of uninterrupted sleep at nights and wakes up feeling unrested in the morning. Hedenies any mental health issues. The patient is currently prescribed gabapentin and oxycodone from our office. The last doses were taken this morning. He reports difficulty sleeping. The medications are partially effective. PDMP website checked and validated. The OARRS report has been reviewed and is consistent with the patients medical history and medication intake. Last UDS: inconsistent , no Percocet noted 11/19/22 and 12/16/21 Summary Report Date Value Ref Range Status 11/19/2022 FINAL Final Comment: Gabapentin, MS, Ur RFX Acetaminophen, MS, Ur RFX ToxAssure Flex 23, Ur Test Result Flag Units Drug Present Gabapentin PRESENT Acetaminophen PRESENT Test Result Flag Units Ref Range Creatinine 29 mg/dL >=20 Declared Medications: Medication list was not provided. For clinical consultation, please call . Summary Report (Summary) Date Value Ref Range Status 12/16/2021 FINAL Final Comment: TOXASSURE COMP DRUG ANALYSIS,UR Test Result Flag Units Drug Present Gabapentin PRESENT Tizanidine PRESENT Bupropion PRESENT Hydroxybupropion PRESENT Hydroxybupropion is an expected metabolite of bupropion. Duloxetine PRESENT Fluoxetine PRESENT Norfluoxetine PRESENT Norfluoxetine is an expected metabolite of fluoxetine. Acetaminophen PRESENT Diphenhydramine PRESENT Doxylamine PRESENT Dextromethorphan PRESENT Dextrorphan/Levorphanol PRESENT Dextrorphan is an expected metabolite of dextromethorphan, an oxaa-lso-adakeup or prescription cough suppressant. Dextrorphan cannot be distinguished from the scheduled prescription medication levorphanol by the method used for analysis. Verapamil PRESENT Test Result Flag Units Ref Range Creatinine 130 mg/dL >=20 Declared Medications: Medication list was not provided. For clinical consultation, please call . Chronic Pain Functional Assessment Tools Pain Disability Index: Pain Disability Index 06/30/2022 08/12/2022 Family/Home Responsibilities 4 - Recreation 4 - Social Activity 4 6 Occupation 4 6 Sexual Behavior 4 - Self Care 4 3 Life Support Activity 4 6 PDI Score 28 - Pain Enjoyment of Life and General Activity Scale (0-10): PEG: A Three-Item Scale Assessing Pain Intensity and Interference What number best describes your pain on average in the past week?: 7 (06/30/2022 2:00 PM) What number best describes how, during the past week, pain has interfered with your enjoyment of life?: 7 (08/12/2022 12:22 PM) What number best describes how, during the past week, pain has interfered with your general activity?: 6 (08/12/2022 12:22 PM) REVIEW OF SYSTEMS: GENERAL: No weight loss, malaise or fevers RESPIRATORY: Negative for cough, hemoptysis, wheezing, COPD, dyspnea or shortness of breath. CARDIOVASCULAR: Negative for chest pain, leg swelling, hypertension, CHF or palpitations GI: No nausea, vomiting, or diarrhea. MUSCULOSKELETAL: lower back, migraines right arm, and right leg, right knee PAST MEDICAL HISTORY Diagnosis Date Back pain Depression Dysphagia due to recent stroke 10/20/2017 Hypertension Migraines 2000 RSD lower limb right leg RSD upper limb right hand PAST SURGICAL HISTORY Procedure Laterality Date APPENDECTOMY CARPAL TUNNEL Left 2014 COLONOSCOPY 20's with EGD EGD TRANSORAL BIOPSY SINGLE/MULTIPLE 10/02/15 EXCISION PILONIDAL CYST/SINUS EXTENSIVE 07/05/10 closed PAST SURGICAL HISTORY OF right knee surgery TONSILLECTOMY PRIMARY/SECONDARY <AGE 14 Tonsillectomy VASECTOMY UNI/BI SPX W/POSTOP SEMEN EXAMS Bilateral 05/23/2016 FAMILY HISTORY Problem Relation Age of Onset Prostate Cancer Father Hypertension Father Social History Tobacco Use Smoking status: Never Passive exposure: Never Smokeless tobacco: Never Vaping Use Vaping Use: Never used Substance Use Topics Alcohol use: Not Currently Comment: weekly Drug use: No Work Status: Disabled Allergies: Hydrochlorothiazide Other: See Comments Sulfamethoxazole-Tr* Unknown, Other: See Comments Acetaminophen Other: See Comments Comment:Rebound headaches Acetaminophen-Codei* Unknown Hydrocodone Other: See Comments Kihei Juice Unknown Kihei Oil Hives, Other: See Comments Pseudoephedrine Unknown Vicodin [Hydrocodon* Mental Status Change, Itching Aripiprazole Mental Status Change Current Outpatient Medications Medication Sig oxyCODONE-acetaminophen (PERCOCET) 10-325 mg tablet Take 1 tablet by mouth three times daily as needed for pain for up to 30 days. Do not start before November 25, 2022. gabapentin (NEURONTIN) 600 mg tablet Take 1 tablet by mouth three times daily for 90 days. Do not start before August 27, 2022. tiZANidine (ZANAFLEX) 2 mg tablet Take 1 tablet by mouth three times daily. tiZANidine HCl (ZANAFLEX) 6 mg capsule Take 1 capsule by mouth daily at bedtime. naloxone 4 mg/actuation nasal spray (NARCAN) Use 1 spray in one nostril as needed for overdose. Mayrepeat every 2 to 3 min in alternating nostrils until medical assistance is available verapamil ER (VERELAN) 240 mg 24 hr capsule Take 240 mg by mouth once daily. naproxen (NAPROSYN) 250 mg tablet Take 250 mg by mouth. DULoxetine (CYMBALTA) 60 mg capsule duloxetine 60 mg capsule,delayed release buPROPion XL (WELLBUTRIN XL) 300 mg 24 hr tablet TAKE 1 TABLET BY MOUTH EVERY 24 HOURS. REPLACES PREVIOUS PRESCRIPTION FOR BUPROPION 150 MG TABLET valsartan (DIOVAN) 160 mg tablet Take 160 mg by mouth every morning. cetirizine (ZYRTEC) 10 mg tablet Take 10 mg by mouth once daily. AJOVY SYRINGE 225 mg/1.5 mL syringe FLUoxetine (PROZAC) 20 mg capsule Take 60 mg by mouth once daily. pantoprazole DR (PROTONIX) 40 mg tablet Take 40 mg by mouth twice daily. potassium chloride ER (K-DUR, KLOR-CON) 20 mEq tablet Take 20 mEq by mouth twice daily. NURTEC ODT 75 mg disintegrating tablet No current facility-administered medications for this visit. PHYSICAL EXAMINATION: Vitals: BP 140/90 Pulse 89 Resp 19 Ht 6' 3.6 (1.92m) Wt 250 lb (113.4kg) SpO2 99% BMI 30.76 kg/(m^2). GENERAL: Healthy, alert, no distress, cooperative, Smiling SKIN: Skin color, texture, turgor normal. No rashes or lesions. HEENT: PERRL, EOMI, and normal dentition CARDIAC: Normal S1 and S2; no rubs, murmurs, or gallops LUNGS: Lungs clear to auscultation. Good diaphragmatic excursion. Musculoskeletal: +5/5 motor strength in both legs. Negative SLR signs bilaterally. +2/4 DTR at L4 and S1 reflex. Diminished sensation in right leg L4 and S1 dermatomes. The patient has a straight legrange of motion in a supine position of about 90 degrees on the left and 90 degrees on the right. Negative Ulises's test bilaterally. Negative right knee crepitus is noted. Tenderness is noted along the medial aspect of the right knee joint. No poping or locking noted in the right knee. Medial jointpain with varus and valgus stress movements. Lumbar flexion is 90 degrees and lumbar extension is 10-15 degrees. Toe and heel walking are normal. Poor balance is noted. 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 Chronic pain is persistent. Medications are helping Tate Baltazar to have an improved quality of life. Patient compliance with Opioid Contract: patient is not compliant with consistent use of Percocet PDMP website checked and validated. OARRS report reviewed on December 09, 2022 by Antionette Rojas andis consistent with the patients medical history and medication intake. PLAN: The patient understands the goal of our treatment is a reduction in pain and/or an improved level of functioning with activities of daily living. If at any time the patient does not feel the medications are helping them to achieve these goals, the medications may be discontinued. The patient reports a reduction in pain and/or an improved level of functioning with activities of daily living, denies any significant adverse effects, is compliant with the pain management agreement and there are no signs of medication misuse, abuse or diversion; therefore, the medications will be continued. The documentation for this encounter was entered by Antionette Rojas, mobile paramedical examiner for Dr. Rowan Boateng on December 09, 2022. I, Dr. Rowan Boateng, personally performed the services described in this documentation. All medical record entries made by the scribe were at my direction and in my presence. I have reviewed the chart and discharge instructions and agree that the record reflects my personal performance and is accurate and complete. Electronically Signed: Dr. Boateng. December 09, 2022. documented in this encounterAult[facility]07-17-[facility]23 Miscellaneous Notes* Telephone Encounter - Edelmira Shen - 12/01/2022 1:19 PM EDT Patient is scheduled for 01-16-23 for Physical therapy. * Telephone Encounter - Edelmira Shen - 11/28/2022 2:42 PM EDT Please reach out and assist with scheduling patient for post-op physical therapy. His surgery is 01-09-2023. He should be seen approximately 1 week post-op. Thank you. Edelmira Livingston documented in this encounterAultman [facility]07-05-2023 Miscellaneous Notes* Telephone Encounter - Edelmira Livingston - 11/19/2022 2:07 PM EDT Please sign post-op physical therapy orders. Thank you. Edelmira Gonzalez Sedc documented in this encounterAultman [facility]07-05-2023 Miscellaneous Notes* Telephone Encounter - Nabila Moses RN - 11/19/2022 10:48 AM EDT Pt submitted UDS today. Nabila Moses RN November 19, 2022 10:48 AM documented in this encounterAultman [facility]07-05-2023 Miscellaneous Notes* Telephone Encounter - Nabila Moses RN - 11/19/2022 10:39 AM EDT Can you enter order for UDS? Pt is here at the office now. Nabila Moses RN November 19, 2022 10:39 AM * Telephone Encounter - Nabila Moses RN - 11/19/2022 9:01 AM EDT Pt called and notified that he needs to submit UDS before RX can be issued. Pt verbalized understanding. Office hours given. Nabila Moses RN November 19, 2022 9:01 AM * Telephone Encounter - Rowan Boateng DO - 11/19/2022 8:37 AM EDT The following approved medication requests have been transmitted electronically. Requested Prescriptions Pending Prescriptions Disp Refills oxyCODONE-acetaminophen (PERCOCET) 10-325 mg tablet 90 tablet 0 Sig: Take 1 tablet by mouth three times daily as needed for pain for up to 30 days. Rowan Boateng DO * Telephone Encounter - Pratibha Deras, RN - 11/19/2022 7:42 AM EDT Patient phones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 Cancino MD, Rowan Boateng DO and Lanette Harkins DO via [employer]. Time spent with patient: 70 minutes. More than 50% of the face to face time was dedicated to education and counseling regarding treatment options for spasticity. Melvin Larsen MD documented [facility] this [facility] History of Present illness Narrative* Iesha Cordero PA-C - 07/24/2022 10:24 AM EST Iesha Cordero PA-C Established Patient Department of Orthopaedics [facility] [address] [address] Dept: [phone] July 24, 2022 SUBJECTIVE: CHIEF COMPLAINT: Follow Up and Knee Pain of the Right Knee HPI: Mr. Tate Baltazar is a 47 year old male. He was last seen in the office on 05/23/2022 where an MRI was ordered for chronic right knee pain despite physical therapy and multiple corticosteroid injections from pain management. He presents to discuss results. Today rates pain a 6 on a scale of 0-10. He describes his pain as constant and achy. The pain continues to be worse with activity. He has some baseline right sided weakness due to his history of multiple strokes. He sees pain management and takes percocet for pain. He denies any recent injury or the onset or any new or worsening symptoms. Past Medical History: PAST MEDICAL HISTORY Diagnosis Date Back pain Depression Dysphagia due to recent stroke 10/20/2017 Hypertension Migraines 2000 RSD lower limb right leg RSD upper limb right hand Past Surgical History: PAST SURGICAL HISTORY Procedure Laterality Date APPENDECTOMY CARPAL TUNNEL Left 2014 COLONOSCOPY 20's with EGD EGD TRANSORAL BIOPSY SINGLE/MULTIPLE 10/02/15 EXCISION PILONIDAL CYST/SINUS EXTENSIVE 07/05/10 closed PAST SURGICAL HISTORY OF right knee surgery TONSILLECTOMY PRIMARY/SECONDARY <AGE 14 Tonsillectomy VASECTOMY UNI/BI SPX W/POSTOP SEMEN EXAMS Bilateral 05/23/2016 Family History: FAMILY HISTORY Problem Relation Age of Onset Prostate Cancer Father Hypertension Father Social History: Social History Tobacco Use Smoking status: Never Passive exposure: Never Smokeless tobacco: Never Vaping Use Vaping Use: Never used Substance Use Topics Alcohol use: Not Currently Comment: weekly Drug use: No Medications: Current Outpatient Medications Medication Sig [START ON 07/28/2022] oxyCODONE-acetaminophen (PERCOCET) 10-325 mg tablet Take 1 tablet by mouth three times daily as needed for pain. Do not start before July 28, 2022. tiZANidine (ZANAFLEX) 4 mg tablet Take 4 mg by mouth three times daily as needed. oxyCODONE-acetaminophen (PERCOCET) 10-325 mg tablet Take 1 tablet by mouth every 8 hours as needed for pain. naloxone 4 mg/actuation nasal spray (NARCAN) Use 1 spray in one nostril as needed for overdose. Mayrepeat every 2 to 3 min in alternating nostrils until medical assistance is available verapamil ER (VERELAN) 240 mg 24 hr capsule Take 240 mg by mouth once daily. gabapentin (NEURONTIN) 600 mg tablet Take 1 tablet by mouth three times daily for 90 days. naproxen (NAPROSYN) 250 mg tablet Take 250 mg by mouth. DULoxetine (CYMBALTA) 60 mg capsule duloxetine 60 mg capsule,delayed release buPROPion XL (WELLBUTRIN XL) 300 mg 24 hr tablet TAKE 1 TABLET BY MOUTH EVERY 24 HOURS. REPLACES PREVIOUS PRESCRIPTION FOR BUPROPION 150 MG TABLET valsartan (DIOVAN) 160 mg tablet Take 160 mg by mouth every morning. cetirizine (ZYRTEC) 10 mg tablet Take 10 mg by mouth once daily. AJOVY SYRINGE 225 mg/1.5 mL syringe FLUoxetine (PROZAC) 20 mg capsule Take 60 mg by mouth once daily. pantoprazole DR (PROTONIX) 40 mg tablet Take 40 mg by mouth twice daily. potassium chloride ER (K-DUR, KLOR-CON) 20 mEq tablet Take 20 mEq by mouth twice daily. NURTEC ODT 75 mg disintegrating tablet No current facility-administered medications for this visit. Allergies: Hydrochlorothiazide, Sulfamethoxazole-Trimethoprim, Acetaminophen- Codeine, Kihei Juice,Pseudoephedrine, Vicodin [Hydrocodone-Acetaminophen], and Aripiprazole ROS: General: negative for fatigue, malaise, weight loss/gain Musculoskeletal: see HPI Psych: no depression, anxiety OBJECTIVE: Mr. Tate Baltazar is a pleasant 47 year old in no apparent distress. Gen:There were no vitals taken for this visit. nl development, non obese, no deformities ENT: Normocephalic, normal hearing, moist mucosa CV: Pulses:DP/PT= 2+ and symmetric, capillary refill < 2 secs, no peripheral edema/varicosities Skin: no rash, bruising or lesions. Good turgor. Psych: cooperative and appropriate, alert and oriented x 3, good mood and affect. Musculoskeletal: Unchanged since last exam IMAGING: Impression IMPRESSION: NO ACUTE ABNORMALITY Wafer Cleaner: LALA Transcribe Date/Time: Jun 25 2022 9:36A Dictated by : ROOSEVELT LAM MD This examination was interpreted and the report reviewed and electronically signed by: ROOSEVELT LAM MD on Jun 25 2022 9:40AM EST Results-Findings * * *Final Report* * * DATE OF EXAM: Jun 23 2022 1:56PM [facility] 0213 - MRI KNEE WO IVCON RT / PROCEDURE REASON: multiple diagnoses * * * * Physician Interpretation * * * * HISTORY: Chronic pain of right knee TECHNIQUE: Routine MRI of the right knee. COMPARISON: None RESULT: MENISCI: Mucoid degeneration in the posterior horn of the medial meniscus. No meniscal tear medially or laterally. LIGAMENTS: The cruciate ligaments and collateral ligaments are intact. CARTILAGE: The articular cartilage is preserved in all 3 joint compartments. TENDONS: The visualized extensor mechanism, biceps femoris tendon, popliteus tendon and the other tendons around the knee are all intact appearing. BONE MARROW: No evidence of fracture or bone marrow replacing lesion. MUSCLE: Muscle bulk and signal intensity are normal. JOINT FLUID AND SYNOVIUM: Physiologic quantity of joint fluid. OTHER: Varicose vein posteriorly. ASSESSMENT: M25.561, G89.29 Chronic pain of right knee (primary encounter diagnosis) R29.898 Right leg weakness PLAN: Reviewed recent MRI results. Discussed with patient that as he has failed to get significant improvement with multiple joint injections and physical therapy there is nothing else from orthopedic standpoint I would recommend. Discussed following up with PMR. Consult PMR placed today. Patient agreeable with plan. FOLLOW UP INSTRUCTIONS: PMR Iesha Cordero PA-C documented in this encounterA[facility] Miscellaneous Notes* Telephone Encounter - Pratibha Deras RN - 07/17/2022 9:37 AM EST Patient phones requesting refills as follows: Requested Prescriptions Pending Prescriptions Disp Refills oxyCODONE-acetaminophen (PERCOCET) 10-325 mg tablet 3 tablet 0 Sig: Take 1 tablet by mouth every 8 hours as needed for pain. Last UDS: Summary Report Date Value Ref Range Status 06/16/2022 FINAL Final Comment: Opiate Class, MS, Ur RFX Oxycodone Class, MS, Ur RFX Gabapentin, MS, Ur RFX ToxAssure Flex 23, Ur Test Result Flag Units Drug Present Oxycodone 273 ng/mg creat Oxymorphone 148 ng/mg creat Noroxycodone 612 ng/mg creat Sources of oxycodone include scheduled prescription medications. Oxymorphone and noroxycodone are expected metabolites of oxycodone. Oxymorphone is also available as a scheduled prescription medication. Gabapentin PRESENT Test Result Flag Units Ref Range Creatinine 173 mg/dL >=20 Declared Medications: Medication list was not provided. For clinical consultation, please call . @FLOW([id number])@ Lab Results Component Value Date SUMM FINAL 06/16/2022 Summary Report (Summary) Date Value Ref Range Status 12/16/2021 FINAL Final Comment: TOXASSURE COMP DRUG ANALYSIS,UR Test Result Flag Units Drug Present Gabapentin PRESENT Tizanidine PRESENT Bupropion PRESENT Hydroxybupropion PRESENT Hydroxybupropion is an expected metabolite of bupropion. Duloxetine PRESENT Fluoxetine PRESENT Norfluoxetine PRESENT Norfluoxetine is an expected metabolite of fluoxetine. Acetaminophen PRESENT Diphenhydramine PRESENT Doxylamine PRESENT Dextromethorphan PRESENT Dextrorphan/Levorphanol PRESENT Dextrorphan is an expected metabolite of dextromethorphan, an [id number] or prescription cough suppressant. Dextrorphan cannot be distinguished from the scheduled prescription medication levorphanol by the method used for analysis. Verapamil PRESENT Test Result Flag Units Ref Range Creatinine 130 mg/dL >=20 Declared Medications: Medication list was not provided. For clinical consultation, please call . Please review and advise. Pratibha Deras RN documented in this [facility]02-13-2023 History of Present illness Narrative* Rowan Boateng DO - 06/30/2022 3:30 PM ESTSummary: error error documented in this [facility]02-13-2023 Miscellaneous Notes* Telephone Encounter - Nabila Moses RN - 06/30/2022 8:21 AM EST Pt has apt today. Nabila Moses RN June 30, 2022 8:22 AM documented in this [facility]02-06-2023 History of Present illness Narrative* DARSHAN Tapia - 06/23/2022 1:20 PM EST Radiology Service Progress Note PATIENT NAME: Tate Baltazar DATE OF SERVICE: June 23, 2022 TIME: 1:09 PM PATIENT IDENTITY VERIFICATION COMPLETED USING TWO (2) IDENTIFIERS: Name and Date of confirmedby patient verbally. FALL SCREENING: Has the patient had 2 falls in the last year or 1 fall with injury or currently using an Ambulatory Assistive Device (Walker, Cane, Wheelchair, Crutches, etc.)? No PATIENT GENDER DATA: Male PATIENT RELEVANT IMPLANT DATA REVIEWED: Yes RADIOLOGY DEPARTMENT: MR; Exam(s) Completed: Lower MSK: Knee, right PERIPHERAL IV DATA: Not applicable SIGNED BY: DARSHAN Tapia June 23, 2022 1:09 PM documented in this encounterA[facility]02-03-2023 Miscellaneous Notes* Telephone Encounter - Rowan Boateng DO - 06/20/2022 1:04 PM EST The following approved medication requests have been transmitted electronically. Requested Prescriptions Pending Prescriptions Disp Refills oxyCODONE-acetaminophen (PERCOCET) 10-325 mg tablet 21 tablet 0 Sig: Take 1 tablet by mouth three times daily as needed for pain for up to 7 days. Rowan Boateng DO * Telephone Encounter - Nabila Moses RN - 06/20/2022 9:57 AM EST Pt called asking if RX was sent. Please sign. Nabila Moses RN June 20, 2022 9:57 AM * Telephone Encounter - Edelmira Perera RN - 06/19/2022 1:04 PM EST Pt called states pharmacy did not get percocet script, I called pharmacy and confirmed they did notreceive script, it is attached please review and re send if appropriate Patient phones requesting refills as follows: Requested Prescriptions Pending Prescriptions Disp Refills oxyCODONE-acetaminophen (PERCOCET) 10-325 mg tablet 21 tablet 0 Sig: Take 1 tablet by mouth three times daily as needed for pain for up to 7 days. Do not start before June 20, 2022. Last UDS: Summary Report Date Value Ref Range Status 05/22/2022 FINAL Final Comment: Gabapentin, MS, Ur RFX Acetaminophen, MS, Ur RFX ToxAssure Flex 23, Ur Test Result Flag Units Drug Present Gabapentin PRESENT Acetaminophen PRESENT Test Result Flag Units Ref Range Creatinine 50 mg/dL >=20 Declared Medications: Medication list was not provided. For clinical consultation, please call . @FLOW([id number])@ Lab Results Component Value Date SUMM FINAL 05/22/2022 Summary Report (Summary) Date Value Ref Range Status 12/16/2021 FINAL Final Comment: TOXASSURE COMP DRUG ANALYSIS,UR Test Result Flag Units Drug Present Gabapentin PRESENT Tizanidine PRESENT Bupropion PRESENT Hydroxybupropion PRESENT Hydroxybupropion is an expected metabolite of bupropion. Duloxetine PRESENT Fluoxetine PRESENT Norfluoxetine PRESENT Norfluoxetine is an expected metabolite of fluoxetine. Acetaminophen PRESENT Diphenhydramine PRESENT Doxylamine PRESENT Dextromethorphan PRESENT Dextrorphan/Levorphanol PRESENT Dextrorphan is an expected metabolite of dextromethorphan, an [id number] or prescription cough suppressant. Dextrorphan cannot be distinguished from the scheduled prescription medication levorphanol by the method used for analysis. Verapamil PRESENT Test Result Flag Units Ref Range Creatinine 130 mg/dL >=20 Declared Medications: Medication list was not provided. For clinical consultation, please call . Please review and advise. Edelmira Perera RN documented in this encounterA[facility]01-30-[facility]23 Instructions* Patient Instructions* Rowan Boateng DO - 06/16/2022 3:47 PM EST Continue percocet, 2 week supply until UDS comes back. Last 2 UDS results were inconsistent. Patient understands issues of trust with long-term narcotic medication use. Continue Gabapentin and zanaflex Continue HEP. Continue to use knee brace. Continue TENS unit for shoulder pain Continue lido-prilo cream and diclofenac gel May repeat right knee injection prn - last done 05/08/22 may repeat L5-S1 LESI prn Obtain UDS f/u in 1 month with INTERNETWORKING TECHNICIAN. documented in this encounterA[facility]man [facility]01-30-2023 History of Present illness Narrative* Rowan Boateng DO - 06/16/2022 3:25 PM EST DATE: June 16, 2022 Chief Complaint: back, migraines, right arm, and right leg/knee pain History of Present Illness: Tate Baltazar is a 47 year old male being seen at [facility] for a evaluation and/or management of their chronic pain. He was last seen on 05/20/22 and the plan ofcare was as follows: Continue percocet If ineffective plan to trial Xtampza Continue Gabapentin and zanaflex Continue HEP. Order EMG b/l UE Continue to use knee brace. Pending repeat Right shoulder injection -05/22/22 May repeat right knee injection prn - last done 05/08/22 Pending appointment with knee specialist may repeat L5-S1 LESI prn Continue TENS unit for shoulder pain Continue lido-prilo cream and diclofenac gel Previously discussed SCS- he declines f/u in 1 month- He is irritated and in pain today. His x-ray showed thoracic bone spurs that could be causing pain,but no other significant causes. He notes 3-4 weeks of relief from his right shoulder injection performed on 05/22/22. He is confused and frustrated about his most recent urine drug screen. His UDS from 12/16/21 did not show oxycodone. He notes his pill bottle had a medication that did not match his normal pill. He denies that his girlfriend or father could be taking his medications and that his medications are locked away. His most recent UDS on 05/22/22 did not have the oxycodone in it as well. Thelast time he took his Oxycodone was 11 pm last night. He denies any new medical conditions, emergency room visits, or recent hospitalizations. \ Location: lower back, migraines right arm, and right leg, right knee Radiation: right leg and right foot Intensity: 4/10 Timing:constant Character: sharp, throbbing, and burning Numbness/tingling: yes, rt leg and right arm From elbow to hand Worsening factors: Increased activity Relieving factors: meds falls:denies Patient denies any bowel or bladder dysfunction. The patient is currently prescribed gabapentin and oxycodone from our office. The last doses were taken this morning. He reports difficulty sleeping. The medications are partially effective. The OARRS report has been reviewed and is consistent with the patients medical history and medication intake. Last UDS: Reviewed - No inconsistencies noted. Summary Report Date Value Ref Range Status 05/22/2022 FINAL Final Comment: Gabapentin, MS, Ur RFX Acetaminophen, MS, Ur RFX ToxAssure Flex 23, Ur Test Result Flag Units Drug Present Gabapentin PRESENT Acetaminophen PRESENT Test Result Flag Units Ref Range Creatinine 50 mg/dL >=20 Declared Medications: Medication list was not provided. For clinical consultation, please call . Summary Report (Summary) Date Value Ref Range Status 12/16/2021 FINAL Final Comment: TOXASSURE COMP DRUG ANALYSIS,UR Test Result Flag Units Drug Present Gabapentin PRESENT Tizanidine PRESENT Bupropion PRESENT Hydroxybupropion PRESENT Hydroxybupropion is an expected metabolite of bupropion. Duloxetine PRESENT Fluoxetine PRESENT Norfluoxetine PRESENT Norfluoxetine is an expected metabolite of fluoxetine. Acetaminophen PRESENT Diphenhydramine PRESENT Doxylamine PRESENT Dextromethorphan PRESENT Dextrorphan/Levorphanol PRESENT Dextrorphan is an expected metabolite of dextromethorphan, an [id number] or prescription cough suppressant. Dextrorphan cannot be distinguished from the scheduled prescription medication levorphanol by the method used for analysis. Verapamil PRESENT Test Result Flag Units Ref Range Creatinine 130 mg/dL >=20 Declared Medications: Medication list was not provided. For clinical consultation, please call . Chronic Pain Functional Assessment Tools Pain Disability Index: Pain Disability Index 04/21/2022 06/16/2022 Family/Home Responsibilities 6 6 Recreation 5 6 Social Activity 6 6 Occupation 7 6 Sexual Behavior 2 6 Self Care 2 6 Life Support Activity 1 6 PDI Score 29 42 Pain Enjoyment of Life and General Activity Scale (0-10): PEG: A Three-Item Scale Assessing Pain Intensity and Interference What number best describes your pain on average in the past week?: 8 (06/16/2022 2:00 PM) What number best describes how, during the past week, pain has interfered with your enjoyment of life?: 8 (06/16/2022 2:00 PM) What number best describes how, during the past week, pain has interfered with your general activity?: 8 (06/16/2022 2:00 PM) REVIEW OF SYSTEMS: GENERAL: No weight loss, malaise or fevers RESPIRATORY: Negative for cough, hemoptysis, wheezing, COPD, dyspnea or shortness of breath. CARDIOVASCULAR: Negative for chest pain, leg swelling, hypertension, CHF or palpitations GI: No nausea, vomiting, or diarrhea. MUSCULOSKELETAL: positive back, migraines, right arm, and right leg/knee pain PAST MEDICAL HISTORY Diagnosis Date Back pain Depression Dysphagia due to recent stroke 10/20/2017 Hypertension Migraines 2000 RSD lower limb right leg RSD upper limb right hand PAST SURGICAL HISTORY Procedure Laterality Date APPENDECTOMY CARPAL TUNNEL Left 2014 COLONOSCOPY 20's with EGD EGD TRANSORAL BIOPSY SINGLE/MULTIPLE 10/02/15 EXCISION PILONIDAL CYST/SINUS EXTENSIVE 07/05/10 closed PAST SURGICAL HISTORY OF right knee surgery TONSILLECTOMY PRIMARY/SECONDARY <AGE 14 Tonsillectomy VASECTOMY UNI/BI SPX W/POSTOP SEMEN EXAMS Bilateral 05/23/2016 FAMILY HISTORY Problem Relation Age of Onset Prostate Cancer Father Hypertension Father Social History Tobacco Use Smoking status: Never Passive exposure: Never Smokeless tobacco: Never Vaping Use Vaping Use: Never used Substance Use Topics Alcohol use: Not Currently Comment: weekly Drug use: No Allergies: Hydrochlorothiazide Other: See Comments Sulfamethoxazole-Tr* Unknown Acetaminophen-Codei* Unknown Kihei Juice Unknown Pseudoephedrine Unknown Vicodin [Hydrocodon* Mental Status Change, Itching Aripiprazole Mental Status Change Current Outpatient Medications Medication Sig tiZANidine HCl (ZANAFLEX) 6 mg capsule Take 6 mg by mouth three times daily. verapamil ER (VERELAN) 240 mg 24 hr capsule Take 240 mg by mouth once daily. gabapentin (NEURONTIN) 600 mg tablet Take 1 tablet by mouth three times daily for 90 days. naproxen (NAPROSYN) 250 mg tablet Take 250 mg by mouth. DULoxetine (CYMBALTA) 60 mg capsule duloxetine 60 mg capsule,delayed release ondansetron orally disintegrating (ZOFRAN ODT) 4 mg disintegrating tablet ondansetron 4 mg disintegrating tablet DISSOLVE ONE TABLET BY MOUTH EVERY 6 HOURS NEEDED FOR NAUSEA AND VOMITING for up to 7 (SEVEN) days buPROPion XL (WELLBUTRIN XL) 300 mg 24 hr tablet TAKE 1 TABLET BY MOUTH EVERY 24 HOURS. REPLACES PREVIOUS PRESCRIPTION FOR BUPROPION 150 MG TABLET valsartan (DIOVAN) 160 mg tablet Take 160 mg by mouth every morning. cetirizine (ZYRTEC) 10 mg tablet Take 10 mg by mouth once daily. AJOVY SYRINGE 225 mg/1.5 mL syringe FLUoxetine (PROZAC) 20 mg capsule Take 60 mg by mouth once daily. pantoprazole DR (PROTONIX) 40 mg tablet Take 40 mg by mouth twice daily. potassium chloride ER (K-DUR, KLOR-CON) 20 mEq tablet Take 20 mEq by mouth twice daily. NURTEC ODT 75 mg disintegrating tablet No current facility-administered medications for this visit. I have reviewed the nurses notes and I am aware of the family/social history. Since the last evaluation the medical history has not changed. PHYSICAL EXAMINATION: Vitals: BP 142/102 Pulse 111 Resp 19 Ht 6' 3.6 (1.92m) Wt 250 lb (113.4kg) SpO2 97% BMI 30.76 kg/(m^2). GENERAL: Healthy, alert, no distress, cooperative, Smiling SKIN: Skin color, texture, turgor normal. No rashes or lesions. HEENT: PERRL, EOMI, and normal dentition CARDIAC: Normal S1 and S2; no rubs, murmurs, or gallops LUNGS: Lungs clear to auscultation. Good diaphragmatic excursion. Musculoskeletal: +5/5 motor strength in both legs. Negative SLR signs bilaterally. +2/4 DTR at L4 and S1 reflex. Diminished sensation in right leg L4 and S1 dermatomes. The patient has a straight legrange of motion in a supine position of about 90 degrees on the left and 90 degrees on the right. Negative Ulises's test bilaterally. Negative right knee crepitus is noted. Tenderness is noted along the medial aspect of the right knee joint. No poping or locking noted in the right knee. Medial jointpain with varus and valgus stress movements. Lumbar flexion is 90 degrees and lumbar extension is 10-15 degrees. Toe and heel walking are normal. Poor balance is noted. ASSESSMENT: Other chronic pain Reflex sympathetic dystrophy FDC (Current) use of 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 Patient is stable. Chronic pain is persistent. Medications are helping Ttae Baltazar to have an improved quality of life. Patient compliance with Opioid Contract: patient is non- compliant based off of recent urine drug screen results. PDMP website checked and validated. OARRS report reviewed on June 16, 2022 by Elyse Smith, KAREN Student and is consistent with the patients medical history and medication intake. PLAN: The patient understands the goal of our treatment is a reduction in pain and/or an improved level of functioning with activities of daily living. If at any time the patient does not feel the medications are helping them to achieve these goals, the medications may be discontinued. The patient reports a reduction in pain and/or an improved level of functioning with activities of daily living, denies any significant adverse effects, is compliant with the pain management agreement and there are no signs of medication misuse, abuse or diversion; therefore, the medications will be continued. The documentation for this encounter was entered by esequiel Li scribe, for Dr. Rowan Boateng on June 16, 2022 I, Dr. Rowan Boateng, personally performed the services described in this documentation. All medical record entries made by the scribe were at my direction and in my presence. I have reviewed the chart and discharge instructions and agree that the record reflects my personal performance and is accurate and complete. Electronically Signed: Dr. Boateng. June 16, 2022 documented in this encounterA[facility] History of Present illness Narrative* Vicenta Van MD - 06/16/2022 10:55 AM EST UNIVERSAL PROTOCOL / SAFETY CHECKLIST Procedure to be Performed: EMG Sign In: A Moment of CARE was completed. Personnel directly involved with the procedure wore the appropriate PPE (Personal Protective Equipment). Patient/Surrogate Stated/Verified: PATIENT VERIFIED(optional for EMERGENT procedures): Patient name, Date of , Relevant allergies, and The intended procedure Time Out Communication: Intended patient and procedure match the source documents. Correct side/site marked and visible. Sign Out: SIGN OUT (optional for EMERGENT procedures): Post-procedure follow-up management communicated and Plan of Care Visit completed when applicable. [facility] Vicenta Van MD Staff, [facility] [place] Electronically signed June 16, 2022 11:56 AM documented in this [facility]01-16-2023 History of Present illness Narrative* Iesha Cordero PA-C - 06/02/2022 3:30 PM EST Patient was seen on 05/23/2022 where a right knee MRI was ordered. MRI was scheduled for 05/30/2022 and he was supposed to be seen virtually today to discuss his results. At his appointment today he said that his MRI was cancelled and rescheduled for 06/23/2022. We will have him reschedule this virtual visit until after his MRI has been completed. Patient agreeable. Iesha Cordero PA-C documented in this [facility]01-06-2023 Miscellaneous Notes* Telephone Encounter - Edelmria Perera RN - 05/23/2022 2:36 PM EST Pt called back with an update, he states that the pharmacy told him that the 2 different pills did not come from them, he said they told him someone at his home must be getting to his pills, he denies the possibility of this, he states his fiance would not take his meds and his elder father would not take his meds either, in addition he keeps his meds locked up, I did advise the pt as advised below that he needs to open the bottle and count/inspect pills before leaving the pharmacy moving forward, he states that he is/has had everything transferred to [facility], he said he is done with that Luis, I did notify him that provider advised if uds is inconsisstent the medication will be stopped, he is anxiously awaiting the uds results Edelmira Perera RN May 23, 2022 2:47 PM * Telephone Encounter - Mor Edgar APRN.CNP - 05/23/2022 2:21 PM EST If he truly has these issues he need to verify the pills with the pharmacist before he leaves the store. We have go buy what the prescription says he received. If his UDS is inconsistent the medications will be stopped. * Telephone Encounter - Edelmira Perera RN - 05/23/2022 8:23 AM EST Pt states he accidentally dropped a pill this morning and his girlfriend noticed that the pill was slightly different from the others, they looked it up on the internet and found that the one that isdifferent is just acetaminophen, he states he has had problems with this pharmacy in the past, he said he has spoke to Dr Boateng about this and per pt Dr advised him that if anything like this happensagain he needs to call the office to notify us, his biggest concern is that he had a drug screen yesterday and found this discrepancy this morning, he does not know if the pills he has been taken were tampered with, pt states that they went thru all the pills in his bottle and out of what he has left there were just 2 acetaminophen, I advised pt that he needs to contact the pharmacy, he needs to speak to the receivable manager and possibly the district attorney, he state in the past he has and they do not ever tell him anything, I advised him that he needs to demand a follow up call from them, I educatedhim about keeping his meds safe at home, locking them up etc, he states that he keeps his percocet locked up, I asked pt to update us once he has contacted the pharmacy and with any updates from the pharmacy, pt stated several times thru out conversation that he is concerned about getting in trouble Edelmira Perera RN May 23, 2022 8:41 AM documented in this encounterA[facility]01-06-[facility] History of Present illness Narrative* Iesha Cordero PA-C - 05/23/2022 9:27 AM EST Iesha Cordero PA-C Department of Orthopaedics Orthopaedics [address] [place] [address] Dept: [phone] May 23, 2022 SUBJECTIVE: CHIEF COMPLAINT: No chief complaint on file. HPI: Mr. Tate Baltazar is a 47 year old male. He presents today with chronic right knee pain hasbeen present for years. He has been managed by pain management with medication as well as corticosteroid injections. His last injection was 05/08/2022. Today he rates his pain a 7 on a scale of 0-10. He describes the pain as constant, achy and burning. The pain is worse with any activity. He takes gabapentin as well as oxycodone through pain management. He wears a sleeve as needed for the pain. He states that he feels grinding in his knee and thathis knee feels sloppy . [facility] He did have a cleaning out surgery when he was 20 for a knee fracture. He has baseline right sided weakness due to a cerebral hemorrhage in 2018. He denies any new numbness/tingling or locking/catching. This patient was consulted to orthopedics by Rowan Boateng DO. This note will be communicated back to them via [employer] Past Medical History: PAST MEDICAL HISTORY Diagnosis Date Back pain Depression Dysphagia due to recent stroke 10/20/2017 Hypertension Migraines 2000 RSD lower limb right leg RSD upper limb right hand Past Surgical History: PAST SURGICAL HISTORY Procedure Laterality Date APPENDECTOMY CARPAL TUNNEL Left 2014 COLONOSCOPY 20's with EGD EGD TRANSORAL BIOPSY SINGLE/MULTIPLE 10/02/15 EXCISION PILONIDAL CYST/SINUS EXTENSIVE 07/05/10 closed PAST SURGICAL HISTORY OF right knee surgery TONSILLECTOMY PRIMARY/SECONDARY <AGE 14 Tonsillectomy VASECTOMY UNI/BI SPX W/POSTOP SEMEN EXAMS Bilateral 05/23/2016 Family History: FAMILY HISTORY Problem Relation Age of Onset Prostate Cancer Father Hypertension Father Social History: Social History Tobacco Use Smoking status: Never Passive exposure: Never Smokeless tobacco: Never Vaping Use Vaping Use: Never used Substance Use Topics Alcohol use: Not Currently Comment: weekly Drug use: No Medications: Current Outpatient Medications Medication Sig naproxen (NAPROSYN) 250 mg tablet Take 250 mg by mouth. gabapentin (NEURONTIN) 600 mg tablet Take 1 tablet by mouth three times daily for 30 days. oxyCODONE-acetaminophen (PERCOCET 10) 10-325 mg tablet Take 1 tablet by mouth three times daily as needed for pain for up to 30 days. Do not start before May 21, 2022. tiZANidine (ZANAFLEX) 4 mg tablet Take 1 tablet by mouth three times daily as needed. DULoxetine (CYMBALTA) 60 mg capsule duloxetine 60 mg capsule,delayed release ondansetron orally disintegrating (ZOFRAN ODT) 4 mg disintegrating tablet ondansetron 4 mg disintegrating tablet DISSOLVE ONE TABLET BY MOUTH EVERY 6 HOURS NEEDED FOR NAUSEA AND VOMITING for up to 7 (SEVEN) days buPROPion XL (WELLBUTRIN XL) 300 mg 24 hr tablet TAKE 1 TABLET BY MOUTH EVERY 24 HOURS. REPLACES PREVIOUS PRESCRIPTION FOR BUPROPION 150 MG TABLET valsartan (DIOVAN) 160 mg tablet Take 160 mg by mouth every morning. verapamil ER 180 mg 24 hr capsule TAKE 1 CAPSULE BY MOUTH EVERY DAY. REPLACES PREVIOUS PRESCRIPTIONFOR VERAPAMIL 120 MG CAPSULES cetirizine (ZYRTEC) 10 mg tablet Take 10 mg by mouth once daily. AJOVY SYRINGE 225 mg/1.5 mL syringe FLUoxetine (PROZAC) 20 mg capsule Take 60 mg by mouth once daily. pantoprazole DR (PROTONIX) 40 mg tablet Take 40 mg by mouth twice daily. potassium chloride ER (K-DUR, KLOR-CON) 20 mEq tablet Take 20 mEq by mouth twice daily. NURTEC ODT 75 mg disintegrating tablet No current facility-administered medications for this visit. Allergies: Hydrochlorothiazide, Sulfamethoxazole-Trimethoprim, Acetaminophen- Codeine, Kihei Juice,Pseudoephedrine, Vicodin [Hydrocodone-Acetaminophen], and Aripiprazole ROS: General: negative for fatigue, malaise, weight loss/gain Musculoskeletal: see HPI Psych: no depression, anxiety OBJECTIVE: Mr. Tate Baltazar is a pleasant 47 year old in no apparent distress. Gen:Ht 6' 3.5 (1.92m) Wt 248 lb (112.5kg) BMI 30.58 kg/(m^2). nl development, obese, no deformities ENT: Normocephalic, normal hearing, moist mucosa CV: Pulses:DP/PT= 2+ and symmetric, capillary refill < 2 secs, no peripheral edema/varicosities Skin: no rash, bruising or lesions. Good turgor. Psych: cooperative and appropriate, alert and oriented x 3, good mood and affect. Musculoskeletal: Left knee, bilateral hips and ankles FROM without pain or limitation. RT Knee: Alignment: Varus deformity, Correctable Active Extension 0 and Active Flexion 120 Extension lag: No Pain with ROM: Yes Effusion: Slight Erythema: No Ecchymosis: No Tender to the palpation of Medial joint line and Lateral joint line Pain with patellar compression: No Stability: Anterior/Posterior stable and Varus/Valgus stable Patellofemoral crepitus: Yes Quad Atrophy: No Sarah's: Negative Anterior drawer: Negative IMAGIN05/26/2022 9:25 AM - Radiology, [place] In Impression IMPRESSION: Negative. Wafer Cleaner: LALA Transcribe Date/Time: May 26 2022 9:23A Dictated by : ROOSEVELT LAM MD This examination was interpreted and the report reviewed and electronically signed by: ROOSEVELT LAM MD on May 26 2022 9:23AM EST Results-Findings * * *Final Report* * * DATE OF EXAM: May 23 2022 9:02AM KARLA [id number] - XR KNEE 4V AP/PA BOTH+LAT/JOSEMANUEL RT / PROCEDURE REASON: G89.4-Chronic pain syndrome * * * * Physician Interpretation * * * * PROCEDURE: Right knee INDICATION: Chronic pain syndrome .right knee pain TECHNIQUE: XR KNEE 4V AP/PA BOTH+LAT/JOSEMANUEL RT COMPARISON: None FINDINGS: No fractures or dislocations are seen. No significant joint effusion or joint body is evident. The joint spaces are maintained without evidence for significant degenerative or arthritic change. ASSESSMENT: M25.561, G89.29 Chronic pain of right knee (primary encounter diagnosis) M17.11 Primary osteoarthritis of right knee PLAN: Reviewed images taken today. As patient has participated in physical therapy and has received multiple knee injections recommendation is advanced imaging. MRI ordered today. Patient agreeable with plan and will follow up after MRI. FOLLOW UP INSTRUCTIONS: After MRI Iesha Crodero PA-C documented in this encounterA[facility]01-06-2023 History of Present illness Narrative* Arianna Young CT - 05/23/2022 9:00 AM EST Radiology Service Progress Note PATIENT NAME: Tate Baltazar DATE OF SERVICE: May 23, 2022 TIME: 9:04 AM PATIENT IDENTITY VERIFICATION COMPLETED USING TWO (2) IDENTIFIERS: Name and Date of confirmedby patient verbally. FALL SCREENING: Has the patient had 2 falls in the last year or 1 fall with injury or currently using an Ambulatory Assistive Device (Walker, Cane, Wheelchair, Crutches, etc.)? No PATIENT GENDER DATA: Male PATIENT RELEVANT IMPLANT DATA REVIEWED: Not Applicable RADIOLOGY DEPARTMENT: General X-ray: Exam(s) Completed: Lower Extremity X- Ray(s): Knee, AP / Lat / Tunne / Merchant Right and Wt. Bearing PERIPHERAL IV DATA: Not applicable SIGNED BY: DARSHAN Rossi May 23, 2022 9:04 AM documented in this encounterA[facility]12-05-2022 Instructions* Patient Instructions* Rowan Boateng DO - 04/21/2022 9:54 AM EST Continue Percocet Continue Gabapentin Change Zanaflex 4 mg 1 p.o. 3 times daily as needed Continue home exercise program Recommended wearing compression right knee brace Continue TENS unit Continue Lido-Prilo cream and Diclofenac gel Start trial of Celebrex 100 mg 1 p.o. twice daily as needed. 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 He was last seen on 03/21/22 and the plan of care was as follows: Continue percocet If ineffective plan to trial Xtampza Continue Gabapentin and zanaflex Continue HEP. No NSAIDs. Stop amitriptyline Continue to use knee brace. He stopped PT because it was causing more pain Order repeat Right shoulder injection Order repeat knee injection -this first may repeat L5-S1 LESI prn Continue TENS unit for shoulder pain Continue lido-prilo cream and diclofenac gel Previously discussed SCS- he declines f/u in 1 month- He states he is doing well today. He does note that when he picked up his Percocet from the pharmacy, the quantity was off. Then when he looked at his Narcotic medication, the pill looked weird, so he googled the pill number and the pill number came up as aspirin. He then called the pharmacy to report it, and they told him they would look into it, and they never called him back. He does note he has had increased bruising the last couple of weeks. On the last urine drug screen in December it was also absent for Percocet. According to the last virtual visit, the patient claimed he had vomiting and could not hold his pills down. He reports increased pain recently and states he has had increased falls. Since he was seen on 03/21/22 he has stumbled multiple times per day. He has not had imaging studies performed yet. He states he has performed physical therapy for the right knee, reports it worsened his pain. He has not had an extensive workup of the right shoulder, it has primarily been the right knee. He had the right shoulder injection in September and reports 50-60 %relief for 1.5 weeks. His last right knee injection was August 2021. The pain is currently described as follows: Location: right shoulder and lower back Radiation: right leg and right foot Intensity: 5-6/10 Timing:constant Character: sharp, throbbing, and burning Numbness/tingling: yes, rt leg and right arm Worsening factors: Increased activity Relieving factors: meds, resting falls: he is stumbling multiple times per day due to right knee buckling Patient denies any bowel or bladder dysfunction. He reports 3-4 hours of sleep per night and feels unrested in the morning. He is not sleeping due to pain. Patient was hospitalized for 1 day for the flu this year. The patient is currently prescribed gabapentin and oxycodone from our office. The last doses were taken this morning. He reports difficulty sleeping. The medications are partially effective. The OARRS report has been reviewed and is consistent with the patients medical history and medication intake. Last Urine Drug Screen (UDS): 12/16/2021. The UDS has been reviewed and is NOT consistent with medications prescribed. -Oxycodone, he reports he was vomiting that day and for few days before. Advisedgoing forward if he is vomiting not to take his medication. Prior Injections: knee injections provided greater than 60% improvement. The shoulder injection provided about 50% pain relief and improvement in his ability to perform ADL's REVIEW OF SYSTEMS: GENERAL: No weight loss, malaise or fevers RESPIRATORY: Negative for cough, hemoptysis, wheezing, COPD, dyspnea or shortness of breath. CARDIOVASCULAR: Negative for chest pain, leg swelling, hypertension, CHF or palpitations GI: No nausea, vomiting, or diarrhea. MUSCULOSKELETAL: positive back, knee, and shoulder pain PAST MEDICAL HISTORY Diagnosis Date Back pain Depression Dysphagia due to recent stroke 10/20/2017 Hypertension Migraines 2000 RSD lower limb right leg RSD upper limb right hand PAST SURGICAL HISTORY Procedure Laterality Date APPENDECTOMY CARPAL TUNNEL Left 2014 COLONOSCOPY 20's with EGD EGD TRANSORAL BIOPSY SINGLE/MULTIPLE 10/02/15 EXCISION PILONIDAL CYST/SINUS EXTENSIVE 07/05/10 closed PAST SURGICAL HISTORY OF right knee surgery TONSILLECTOMY PRIMARY/SECONDARY <AGE 14 Tonsillectomy VASECTOMY UNI/BI SPX W/POSTOP SEMEN EXAMS Bilateral 05/23/2016 FAMILY HISTORY Problem Relation Age of Onset Prostate Cancer Father Hypertension Father Social History Tobacco Use Smoking status: Never Passive exposure: Never Smokeless tobacco: Never Vaping Use Vaping Use: Never used Substance Use Topics Alcohol use: Not Currently Comment: weekly Drug use: No Allergies: Hydrochlorothiazide Other: See Comments Sulfamethoxazole-Tr* Unknown Acetaminophen-Codei* Unknown Kihei Juice Unknown Pseudoephedrine Unknown Vicodin [Hydrocodon* Mental Status Change, Itching Aripiprazole Mental Status Change Current Outpatient Medications Medication Sig buPROPion XL (WELLBUTRIN XL) 300 mg 24 hr tablet TAKE 1 TABLET BY MOUTH EVERY 24 HOURS. REPLACES PREVIOUS PRESCRIPTION FOR BUPROPION 150 MG TABLET oxyCODONE-acetaminophen (PERCOCET 10) 10-325 mg tablet Take 1 tablet by mouth three times daily as needed for pain for up to 30 days. Do not start before March 22, 2022. tiZANidine (ZANAFLEX) 4 mg tablet Take 1-2 tablets by mouth at bedtime as needed. valsartan (DIOVAN) 160 mg tablet Take 160 mg by mouth every morning. verapamil ER 180 mg 24 hr capsule TAKE 1 CAPSULE BY MOUTH EVERY DAY. REPLACES PREVIOUS PRESCRIPTIONFOR VERAPAMIL 120 MG CAPSULES cetirizine (ZYRTEC) 10 mg tablet Take 10 mg by mouth once daily. AJOVY SYRINGE 225 mg/1.5 mL syringe nortriptyline (PAMELOR) 50 mg capsule nortriptyline 50 mg capsule psyllium (METAMUCIL FIBER SINGLES) 3.4 gram packet Take 1.7 g by mouth. DULoxetine (CYMBALTA) 60 mg capsule TAKE 1 CAPSULE BY MOUTH EVERY DAY. DO NOT CRUSH OR CHEW FLUoxetine (PROZAC) 20 mg capsule Take 60 mg by mouth once daily. pantoprazole DR (PROTONIX) 40 mg tablet Take 40 mg by mouth twice daily. potassium chloride ER (K-DUR, KLOR-CON) 20 mEq tablet Take 20 mEq by mouth twice daily. NURTEC ODT 75 mg disintegrating tablet gabapentin (NEURONTIN) 600 mg tablet Take 1 tablet by mouth three times daily for 30 days. No current facility-administered medications for this visit. I have reviewed the nurses notes and I am aware of the family/social history. Since the last evaluation the medical history has not changed. PHYSICAL EXAMINATION: Vitals: BP 134/85 Pulse 83 Resp 19 Ht 6' 3.6 (1.92m) Wt 248 lb (112.5kg) SpO2 98% BMI 30.52 kg/(m^2). GENERAL: healthy, alert, no distress, cooperative, smiling SKIN: Skin color, texture, turgor normal. No rashes or lesions. HEENT: PERRL, EOMI, and normal dentition CARDIAC: normal S1 and S2; no rubs, murmurs, or gallops LUNGS: Lungs clear to auscultation. Good diaphragmatic excursion. Musculoskeletal: +5/5 motor strength in both legs. Negative SLR signs bilaterally. +2/4 DTR at L4 and S1 reflex. Diminished sensation in right leg L4 and S1 dermatomes. The patient has a straight legrange of motion in a supine position of about 90 degrees on the left and 90 degrees on the right. Negative Ulises's test bilaterally. Negative right knee crepitus is noted. Tenderness is noted along the medial aspect of the right knee joint. No poping or locking noted in the right knee. Medial jointpain with varus and valgus stress movements. Lumbar flexion is 90 degrees and lumbar extension is 10-15 degrees. Toe and heel walking are normal. Poor balance is noted. 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 Chronic pain is persistent. Medications are helping Tate Baltazar to have an improved quality of life. Patient compliance with Opioid Contract: patient is compliant PDMP website checked and validated. All prescriptions have been APPROPRIATELY filled. No suspiciousactivity was identified. 04/21/2022 by KAREN Li Student PLAN: The patient understands the goal of our treatment is a reduction in pain and/or an improved level of functioning with activities of daily living. If at any time the patient does not feel the medications are helping them to achieve these goals, the medications may be discontinued. The patient reports a reduction in pain and/or an improved level of functioning with activities of daily living, denies any significant adverse effects, is compliant with the pain management agreement and there are no signs of medication misuse, abuse or diversion; therefore, the medications will be continued. The documentation for this encounter was entered by Elyse Smith, mobile paramedical examiner, for Dr. Rowan Boateng on April 21, 2022 I, Dr. Rowan Boateng, personally performed the services described in this documentation. All medical record entries made by the scribe were at my direction and in my presence. I have reviewed the chart and discharge instructions and agree that the record reflects my personal performance and is accurate and complete. Electronically Signed: Dr. Boateng. April 21, 2022 documented in this encounterA[facility] Miscellaneous Notes* Telephone Encounter - Azeb Snow - 03/21/2022 4:30 PM EDT I left a message to schedule the procedures. Azeb March 21, 2022 4:31 PM documented in this encounterA[facility] History of Present illness Narrative* Mor Edgar APRN.DEEPA - 03/21/2022 7:30 AM EDT This video visit was performed via Stereobot video visit. Patient consented to receive health care services via virtual visit for this encounter Provider [facility] Patient Location: Patient Home or Place of Residence Risks, benefits, and limitations of receiving care virtually were discussed with the patient. The patient expressed understanding and is willing to proceed. Chief Complaint: Pain History of Present Illness: Tate Baltazar is a 47 year old year old male being seen at [facility] for a evaluation and/or management of his chronic pain. The patient was last seen virtuallyon 02/19/2022. He states that since the last visit symptoms have been stable. He continues to have migraines. His medical history has not changed and he denies any hospital stays or ER visits. The pain is currently described as follows: Location: lower back, migraines right arm, and right leg, right knee Radiation: right leg and right foot Intensity: 4/10 Timing:constant Character: sharp, throbbing, and burning Numbness/tingling: yes, rt leg and right arm Worsening factors: Increased activity Relieving factors: meds falls:denies Patient denies any bowel or bladder dysfunction. The patient is currently prescribed gabapentin and oxycodone from our office. The last doses were taken this morning. He reports difficulty sleeping. The medications are partially effective. The OARRS report has been reviewed and is consistent with the patients medical history and medication intake. Last Urine Drug Screen (UDS): 12/16/2021. The UDS has been reviewed and is NOT consistent with medications prescribed. -Oxycodone, he reports he was vomiting that day and for few days before. Advisedgoing forward if he is vomiting not to take his medication. Prior Injections: knee injections provided greater than 60% improvement. The shoulder injection provided about 50% pain relief and improvement in his ability to perform ADL's REVIEW OF SYSTEMS: GENERAL: No weight loss, malaise or fevers RESPIRATORY: Negative for cough CARDIOVASCULAR: Negative for chest pain GI: No nausea, vomiting, or diarrhea. 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 PAST SURGICAL HISTORY Procedure Laterality Date APPENDECTOMY CARPAL TUNNEL Left 2014 COLONOSCOPY 20's with EGD EGD TRANSORAL BIOPSY SINGLE/MULTIPLE 10/02/15 EXCISION PILONIDAL CYST/SINUS EXTENSIVE 07/05/10 closed PAST SURGICAL HISTORY OF right knee surgery TONSILLECTOMY PRIMARY/SECONDARY <AGE 14 Tonsillectomy VASECTOMY UNI/BI SPX W/POSTOP SEMEN EXAMS Bilateral 05/23/2016 FAMILY HISTORY Problem Relation Age of Onset Prostate Cancer Father Hypertension Father Social History Tobacco Use Smoking status: Never Smokeless tobacco: Never Vaping Use Vaping Use: Never used Substance Use Topics Alcohol use: Yes Comment: weekly Drug use: No Allergies: Hydrochlorothiazide Other: See Comments Sulfamethoxazole-Tr* Unknown Acetaminophen-Codei* Unknown Kihei Juice Unknown Pseudoephedrine Unknown Vicodin [Hydrocodon* Mental Status Change, Itching Aripiprazole Mental Status Change Current Outpatient Medications Medication Sig amoxicillin-clavulanic acid (AUGMENTIN) 875-125 mg per tablet oxyCODONE-acetaminophen (PERCOCET 10) 10-325 mg tablet Take 1 tablet by mouth three times daily as needed for pain for up to 30 days. Do not start before February 20, 2022. gabapentin (NEURONTIN) 600 mg tablet Take 1 tablet by mouth three times daily for 30 days. tiZANidine (ZANAFLEX) 4 mg tablet Take 1-2 tablets by mouth at bedtime as needed. amitriptyline (ELAVIL) 25 mg tablet Take 0.5-1 tablets by mouth daily at bedtime. valsartan (DIOVAN) 160 mg tablet Take 160 mg by mouth every morning. verapamil ER 180 mg 24 hr capsule TAKE 1 CAPSULE BY MOUTH EVERY DAY. REPLACES PREVIOUS PRESCRIPTIONFOR VERAPAMIL 120 MG CAPSULES buPROPion XL (WELLBUTRIN XL) 150 mg 24 hr tablet TAKE 1 TABLET BY MOUTH EVERY 24 HOURS cetirizine (ZYRTEC) 10 mg tablet Take 10 mg by mouth once daily. AJOVY SYRINGE 225 mg/1.5 mL syringe nortriptyline (PAMELOR) 50 mg capsule nortriptyline 50 mg capsule psyllium (METAMUCIL FIBER SINGLES) 3.4 gram packet Take 1.7 g by mouth. DULoxetine (CYMBALTA) 60 mg capsule TAKE 1 CAPSULE BY MOUTH EVERY DAY. DO NOT CRUSH OR CHEW FLUoxetine (PROZAC) 20 mg capsule Take 60 mg by mouth once daily. pantoprazole DR (PROTONIX) 40 mg tablet Take 40 mg by mouth twice daily. potassium chloride ER (K-DUR, KLOR-CON) 20 mEq tablet Take 20 mEq by mouth twice daily. NURTEC ODT 75 mg disintegrating tablet No current facility-administered medications for this visit. PHYSICAL EXAMINATION: VIDEO EXAM: (performed via video enabled technology) GENERAL: alert and appropriate, in no distress, well-hydrated, well nourished and happy, smiling, interactive HEAD: normocephalic, no abnormality or lesion noted RESPIRATORY: breathing non-labored NEUROLOGIC: no obvious deficit ASSESSMENT: Patient is stable. Chronic pain is persistent. Medications are helping Tate Baltazar to have an improved quality of life. Patient compliance with Opioid Contract: patient is currently compliant Encounter Diagnosis ICD-10-CM 1. Chronic pain syndrome G89.4 2. RSD (reflex sympathetic dystrophy) G90.50 3. FDC (current) use of 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 Z79.891 4. Lumbar radiculopathy M54.16 PLAN: The patient understands the goal of our treatment is a reduction in pain and/or an improved level of functioning with activities of daily living. If at any time the patient does not feel the medications are helping them to achieve these goals, the medications may be discontinued. The patient reports a reduction in pain and an improved level of functioning with activities of daily living and denies any significant adverse effects; therefore, the medications will be continued. Continue percocet If ineffective plan to trial Xtampza Continue Gabapentin and zanaflex Continue HEP. No NSAIDs. Stop amitriptyline Continue to use knee brace. He stopped PT because it was causing more pain Order repeat Right shoulder injection Order repeat knee injection -this first may repeat L5-S1 LESI prn Continue TENS unit for shoulder pain Continue lido-prilo cream and diclofenac gel Previously discussed SCS- he declines f/u in 1 month- Mor Edgar APRN.CNP documented in this encounterA[facility]11-04-2022 Instructions* Patient Instructions* Mor Edgar APRN.CNP - 03/21/2022 7:11 AM EDT Continue percocet If ineffective plan to trial Xtampza Continue Gabapentin and zanaflex Continue HEP. No NSAIDs. Trial of amitriptyline Continue to use knee brace. He stopped PT because it was causing more pain Orderrepeat Right shoulder injection prn Order repeat right knee injection may repeat L5-S1 LESI prn Continue TENS unit for shoulder pain Continue lido-prilo cream and diclofenac gel Previously discussed SCS- he declines f/u in 1 month- Mor Edgar APRN.CNP documented in this encounterA[facility]10-05-[facility]22 History of Present illness Narrative* Mor Edgar APRN.CNP - 02/19/2022 7:30 AM EDT This video visit was performed via Stereobot video visit. Patient consented to receive health care services via virtual visit for this encounter Provider [facility] Patient Location: Patient Home or Place of Residence Risks, benefits, and limitations of receiving care virtually were discussed with the patient. The patient expressed understanding and is willing to proceed. Chief Complaint: Pain History of Present Illness: Tate Baltazar is a 46 year old year old male being seen at [facility] for a evaluation and/or management of his chronic pain. The patient was last seen virtuallyon 01/21/2022. He states that since the last visit symptoms have been persistent. He feels the pain in his neck going down the right arm is getting worse. His medical history has not changed and he denies any hospital stays or ER visits. The pain is currently described as follows: Location: lower back, migraines right arm, and right leg, right knee Radiation: right leg and right foot Intensity: 4/10 Timing:constant Character: sharp, throbbing, and burning Numbness/tingling: yes, rt leg and right arm Worsening factors: Increased activity Relieving factors: meds falls:denies Patient denies any bowel or bladder dysfunction. The patient is currently prescribed gabapentin and oxycodone from our office. The last doses were taken this morning. He reports difficulty sleeping. The medications are partially effective. The OARRS report has been reviewed and is consistent with the patients medical history and medication intake. Last Urine Drug Screen (UDS): 12/16/2021. The UDS has been reviewed and is NOT consistent with medications prescribed. -Oxycodone, he reports he was vomiting that day and for few days before. Advisedgoing forward if he is vomiting not to take his medication. Prior Injections: knee injections provided greater than 60% improvement. The shoulder injection provided about 50% pain relief and improvement in his ability to perform ADL's REVIEW OF SYSTEMS: GENERAL: No weight loss, malaise or fevers RESPIRATORY: Negative for cough CARDIOVASCULAR: Negative for chest pain GI: No nausea, vomiting, or diarrhea. 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 PAST SURGICAL HISTORY Procedure Laterality Date APPENDECTOMY CARPAL TUNNEL Left 2014 COLONOSCOPY 20's with EGD EGD TRANSORAL BIOPSY SINGLE/MULTIPLE 10/02/15 EXCISION PILONIDAL CYST/SINUS EXTENSIVE 07/05/10 closed PAST SURGICAL HISTORY OF right knee surgery TONSILLECTOMY PRIMARY/SECONDARY <AGE 14 Tonsillectomy VASECTOMY UNI/BI SPX W/POSTOP SEMEN EXAMS Bilateral 05/23/2016 FAMILY HISTORY Problem Relation Age of Onset Prostate Cancer Father Hypertension Father Social History Tobacco Use Smoking status: Never Smokeless tobacco: Never Vaping Use Vaping Use: Never used Substance Use Topics Alcohol use: Yes Comment: weekly Drug use: No Allergies: Hydrochlorothiazide Other: See Comments Sulfamethoxazole-Tr* Unknown Acetaminophen-Codei* Unknown Kihei Juice Unknown Pseudoephedrine Unknown Vicodin [Hydrocodon* Mental Status Change, Itching Aripiprazole Mental Status Change Current Outpatient Medications Medication Sig valsartan (DIOVAN) 160 mg tablet Take 160 mg by mouth every morning. verapamil ER 180 mg 24 hr capsule TAKE 1 CAPSULE BY MOUTH EVERY DAY. REPLACES PREVIOUS PRESCRIPTIONFOR VERAPAMIL 120 MG CAPSULES oxyCODONE-acetaminophen (PERCOCET 10) 10-325 mg tablet Take 1 tablet by mouth three times daily as needed for pain for up to 30 days. gabapentin (NEURONTIN) 600 mg tablet Take 1 tablet by mouth three times daily for 30 days. tiZANidine (ZANAFLEX) 4 mg tablet Take 1-2 tablets by mouth at bedtime as needed. buPROPion XL (WELLBUTRIN XL) 150 mg 24 hr tablet TAKE 1 TABLET BY MOUTH EVERY 24 HOURS cetirizine (ZYRTEC) 10 mg tablet Take 10 mg by mouth once daily. AJOVY SYRINGE 225 mg/1.5 mL syringe nortriptyline (PAMELOR) 50 mg capsule nortriptyline 50 mg capsule psyllium (METAMUCIL FIBER SINGLES) 3.4 gram packet Take 1.7 g by mouth. DULoxetine (CYMBALTA) 60 mg capsule TAKE 1 CAPSULE BY MOUTH EVERY DAY. DO NOT CRUSH OR CHEW FLUoxetine (PROZAC) 20 mg capsule Take 60 mg by mouth once daily. pantoprazole DR (PROTONIX) 40 mg tablet Take 40 mg by mouth twice daily. potassium chloride ER (K-DUR, KLOR-CON) 20 mEq tablet Take 20 mEq by mouth twice daily. NURTEC ODT 75 mg disintegrating tablet No current facility-administered medications for this visit. PHYSICAL EXAMINATION: VIDEO EXAM: (performed via video enabled technology) GENERAL: alert and appropriate, in no distress, well-hydrated, well nourished and happy, smiling, interactive HEAD: normocephalic, no abnormality or lesion noted RESPIRATORY: breathing non-labored NEUROLOGIC: no obvious deficit ASSESSMENT: Patient is stable. Chronic pain is persistent. Medications are helping Tate Baltazar to have an improved quality of life. Patient compliance with Opioid Contract: patient is currently compliant Encounter Diagnosis ICD-10-CM 1. Chronic pain syndrome G89.4 2. 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 Degeneration of intervertebral disc of lumbar region M51.36 PLAN: The patient understands the goal of our treatment is a reduction in pain and/or an improved level of functioning with activities of daily living. If at any time the patient does not feel the medications are helping them to achieve these goals, the medications may be discontinued. The patient reports a reduction in pain and an improved level of functioning with activities of daily living and denies any significant adverse effects; therefore, the medications will be continued. Continue percocet If ineffective plan to trial Xtampza Continue Gabapentin and zanaflex Continue HEP. No NSAIDs. Trial of amitriptyline Continue to use knee brace. He stopped PT because it was causing more pain Ok to repeat Right shoulder injection prn Order repeat knee injection prn - may repeat L5-S1 LESI prn Continue TENS unit for shoulder pain Continue lido-prilo cream and diclofenac gel Previously discussed SCS- he declines f/u in 1 month- Mor Edgar APRN.CNP documented in this encounterA[facility]10-[facility] Instructions* Patient Instructions* Mor Edgar APRN.CNP - 02/19/2022 7:12 AM EDT Continue percocet If ineffective plan to trial Xtampza Continue Gabapentin and zanaflex Continue HEP. No NSAIDs. Trial of amitriptyline Continue to use knee brace. He stopped PT because it was causing more pain Ok to repeat Right shoulder injection prn Order repeat knee injection prn - may repeat L5-S1 LESI prn Continue TENS unit for shoulder pain Continue lido-prilo cream and diclofenac gel Previously discussed SCS- he declines f/u in 1 month- Mor Edgar APRN.CNP documented in this encounterA[facility]09-06-[facility] History of Present illness Narrative* Mor Edgar APRN.COIL BUILDER - 01/21/2022 7:30 AM EDT This video visit was performed via Stereobot video visit. Patient consented to receive health care services via virtual visit for this encounter Provider [facility] Patient Location: Patient Home or Place of Residence Risks, benefits, and limitations of receiving care virtually were discussed with the patient. The patient expressed understanding and is willing to proceed. Chief Complaint: Pain History of Present Illness: Tate Baltazar is a 46 year old year old male being seen at [facility] for a evaluation and/or management of his chronic pain. The patient was last seen virtuallyon 12/20/2021. He states that since the last visit symptoms have been stable. He was found to have a scrotal cyst and was given an antibiotic. He may be having surgery to have the cyst removed. Otherwise, his medical history has not changed and he denies any hospital stays or ER visits. The pain is currently described as follows: Location: lower back, migraines right arm, and right leg, right knee Radiation: right leg and right foot Intensity: 5/10 Timing:constant Character: sharp, throbbing, and burning Numbness/tingling: yes, rt leg and right arm Worsening factors: Increased activity Relieving factors: meds falls:denies Patient denies any bowel or bladder dysfunction. The patient is currently prescribed gabapentin and oxycodone from our office. The last doses were taken this morning. He reports difficulty sleeping. The medications are partially effective. The OARRS report has been reviewed and is consistent with the patients medical history and medication intake. Last Urine Drug Screen (UDS): 12/16/2021. The UDS has been reviewed and is NOT consistent with medications prescribed. -Oxycodone, he reports he was vomiting that day and for few days before. Advisedgoing forward if he is vomiting not to take his medication. Prior Injections: knee injections provided greater than 60% improvement. The shoulder injection provided about 50% pain relief and improvement in his ability to perform ADL's REVIEW OF SYSTEMS: GENERAL: No weight loss, malaise or fevers RESPIRATORY: Negative for cough CARDIOVASCULAR: Negative for chest pain GI: No nausea, vomiting, or diarrhea. 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 PAST SURGICAL HISTORY Procedure Laterality Date APPENDECTOMY CARPAL TUNNEL Left 2014 COLONOSCOPY 20's with EGD EGD TRANSORAL BIOPSY SINGLE/MULTIPLE 10/02/15 EXCISION PILONIDAL CYST/SINUS EXTENSIVE 07/05/10 closed PAST SURGICAL HISTORY OF right knee surgery TONSILLECTOMY PRIMARY/SECONDARY <AGE 14 Tonsillectomy VASECTOMY UNI/BI SPX W/POSTOP SEMEN EXAMS Bilateral 05/23/2016 FAMILY HISTORY Problem Relation Age of Onset Prostate Cancer Father Hypertension Father Social History Tobacco Use Smoking status: Never Smoker Smokeless tobacco: Never Used Vaping Use Vaping Use: Never used Substance Use Topics Alcohol use: Yes Comment: weekly Drug use: No Allergies: Hydrochlorothiazide Other: See Comments Sulfamethoxazole-Tr* Unknown Acetaminophen-Codei* Unknown Kihei Juice Unknown Pseudoephedrine Unknown Vicodin [Hydrocodon* Mental Status Change, Itching Aripiprazole Mental Status Change Current Outpatient Medications Medication Sig psyllium (METAMUCIL FIBER SINGLES) 3.4 gram packet Take 1.7 g by mouth. verapamil SR (CALAN SR, ISOPTIN SR) 120 mg CR tablet Take 120 mg by mouth. [START ON 12/22/2021] oxyCODONE-acetaminophen (PERCOCET 10) 10-325 mg tablet Take 1 tablet by mouth three times daily as needed for pain for up to 30 days. Do not start before December 22, 2021. buPROPion XL (WELLBUTRIN XL) 150 mg 24 hr tablet TAKE 1 TABLET BY MOUTH EVERY 24 HOURS cetirizine (ZYRTEC) 10 mg tablet Take 10 mg by mouth once daily. AJOVY SYRINGE 225 mg/1.5 mL syringe nortriptyline (PAMELOR) 50 mg capsule nortriptyline 50 mg capsule DULoxetine (CYMBALTA) 30 mg capsule duloxetine 30 mg capsule,delayed release take 1 capsule by mouth once daily DULoxetine (CYMBALTA) 60 mg capsule TAKE 1 CAPSULE BY MOUTH EVERY DAY. DO NOT CRUSH OR CHEW DULoxetine (CYMBALTA) 30 mg capsule Take 30 mg by mouth once daily. FLUoxetine (PROZAC) 20 mg capsule Take 60 mg by mouth once daily. pantoprazole DR (PROTONIX) 40 mg tablet Take 40 mg by mouth twice daily. potassium chloride ER (K-DUR, KLOR-CON) 20 mEq tablet Take 20 mEq by mouth twice daily. NURTEC ODT 75 mg disintegrating tablet tiZANidine (ZANAFLEX) 4 mg tablet TAKE 2 TABLETS BY MOUTH EVERY NIGHT NEEDED FOR INSOMNIA verapamil SR (CALAN SR, ISOPTIN SR) 120 mg CR tablet Take 120 mg by mouth daily at bedtime. gabapentin (NEURONTIN) 600 mg tablet Take 1 tablet by mouth three times daily for 30 days. amLODIPine (NORVASC) 10 mg tablet Take 10 mg by mouth once daily. No current facility-administered medications for this visit. PHYSICAL EXAMINATION: VIDEO EXAM: (performed via video enabled technology) GENERAL: alert and appropriate, in no distress, well-hydrated, well nourished and happy, smiling, interactive HEAD: normocephalic, no abnormality or lesion noted RESPIRATORY: breathing non-labored NEUROLOGIC: no obvious deficit ASSESSMENT: Patient is stable. Chronic pain is persistent. Medications are helping Tate Baltazar to have an improved quality of life. Patient compliance with Opioid Contract: patient is currently compliant Encounter Diagnosis ICD-10-CM 1. RSD (reflex sympathetic dystrophy) G90.50 2. Chronic pain syndrome G89.4 3. Lumbar radiculopathy M54.16 4. Chronic pain of right knee M25.561 G89.29 5. FDC (current) use of 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 Z79.891 PLAN: The patient understands the goal of our treatment is a reduction in pain and/or an improved level of functioning with activities of daily living. If at any time the patient does not feel the medications are helping them to achieve these goals, the medications may be discontinued. The patient reports a reduction in pain and an improved level of functioning with activities of daily living and denies any significant adverse effects; therefore, the medications will be continued. Continue percocet If ineffective plan to trial Xtampza Continue Gabapentin and zanaflex Continue HEP. No NSAIDs. Encouraged to trial melatonin - if ineffective consider trazodone or amitriptyline Continue to use knee brace. He stopped PT because it was causing more pain Ok to repeat Right shoulder injection prn Order repeat knee injection prn - may repeat L5-S1 LESI prn Continue TENS unit for shoulder pain Continue lido-prilo cream and diclofenac gel Previously discussed SCS- he declines f/u in 1 month- Mor Edgar APRN.CNP documented [facility] encounter[facility] Instructions* Patient Instructions* Mor Edgar APRN.CNP - 01/21/2022 7:17 AM EDT Continue percocet If ineffective plan to trial Xtampza Continue Gabapentin and zanaflex Continue HEP. No NSAIDs. Continue to use knee brace. He stopped PT because it was causing more pain Ok to repeat Right shoulder injection prn Order repeat knee injection prn - may repeat L5-S1 LESI prn Continue TENS unit for shoulder pain Continue lido-prilo cream and diclofenac gel Previously discussed SCS- he declines f/u in 1 month- documented in this encounterA[facility]08-05-2022 Instructions* Patient Instructions* Mor Edgar APRN.CNP - 12/20/2021 10:02 AM EDT Inconsistent UDS was discussed. Patient was counseled on the importance of taking medications as prescribed, the potential for overdose, and the risk of addiction. Advised going forward any violationof the pain agreement will result in narcotics being discontinued. Patient verbalized understanding. The patient understands the goal of our treatment is a reduction in pain and/or an improved level of functioning with activities of daily living. If at any time the patient does not feel the medications are helping them to achieve these goals, the medications may be discontinued. The patient reports a reduction in pain and an improved level of functioning with activities of daily living and denies any significant adverse effects; therefore, the medications will be continued. The patient reports a reduction in pain and/or an improved level of functioning with activities of daily living, denies any significant adverse effects, is compliant with the pain management agreement and there are no signs of medication misuse, abuse or diversion; therefore, the medications will be continued. Continue percocet If ineffective plan to trial Xtampza Continue Gabapentin and zanaflex Continue HEP. No NSAIDs. Continue to use knee brace. He stopped PT because it was causing more pain Ok to repeat Right shoulder injection prn Order repeat knee injection prn - may repeat L5-S1 LESI prn Continue TENS unit for shoulder pain Continue lido-prilo cream and diclofenac gel Previously discussed SCS- he declines f/u in 1 month- documented in this encounterA[facility]08-[facility] History of Present illness Narrative* Mor Edgar APRN.CNP - 12/20/2021 9:34 AM EDT This video visit was performed via Stereobot video visit. Patient consented to receive health care services via virtual visit for this encounter Provider [facility] Patient Location: Patient Home or Place of Residence Risks, benefits, and limitations of receiving care virtually were discussed with the patient. The patient expressed understanding and is willing to proceed. Chief Complaint: Pain History of Present Illness: Tate Baltazar is a 46 year old year old male being seen at [facility] for a evaluation and/or management of their chronic pain. He states that since the last visit symptoms have been persistent and stable. He was seen in the Emergency Room once for his migraines. Otherwise, his medical history has not changed and he denies any hospital stays or ER visits. The pain is currently described as follows: Location: lower back, migraines right arm, and right leg, right knee Radiation: right leg and right foot Intensity: 6/10 Timing:constant Character: sharp, throbbing, and burning Numbness/tingling: yes, rt leg and right arm Worsening factors: Increased activity Relieving factors: meds falls:denies Patient denies any bowel or bladder dysfunction. The patient is currently prescribed gabapentin and oxycodone from our office. The last doses were taken this morning The medications are partially effective. The OARRS report has been reviewed and is consistent with the patients medical history and medication intake. Last Urine Drug Screen (UDS): 12/16/2021. The UDS has been reviewed and is NOT consistent with medications prescribed. -Oxycodone, he reports he was vomiting that day and for few days before. Advisedgoing forward if he is vomiting not to take his medication. Prior Injections: knee injections provided greater than 60% improvement. The shoulder injection provided about 50% pain relief and improvement in his ability to perform ADL's REVIEW OF SYSTEMS: GENERAL: No weight loss, malaise or fevers RESPIRATORY: Negative for cough CARDIOVASCULAR: Negative for chest pain GI: No nausea, vomiting, or diarrhea. 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 PAST SURGICAL HISTORY Procedure Laterality Date APPENDECTOMY CARPAL TUNNEL Left 2014 COLONOSCOPY 20's with EGD EGD TRANSORAL BIOPSY SINGLE/MULTIPLE 10/02/15 EXCISION PILONIDAL CYST/SINUS EXTENSIVE 07/05/10 closed PAST SURGICAL HISTORY OF right knee surgery TONSILLECTOMY PRIMARY/SECONDARY <AGE 14 Tonsillectomy VASECTOMY UNI/BI SPX W/POSTOP SEMEN EXAMS Bilateral 05/23/2016 FAMILY HISTORY Problem Relation Age of Onset Prostate Cancer Father Hypertension Father Social History Tobacco Use Smoking status: Never Smoker Smokeless tobacco: Never Used Vaping Use Vaping Use: Never used Substance Use Topics Alcohol use: Yes Comment: weekly Drug use: No Allergies: Hydrochlorothiazide Other: See Comments Sulfamethoxazole-Tr* Unknown Acetaminophen-Codei* Unknown Kihei Juice Unknown Pseudoephedrine Unknown Vicodin [Hydrocodon* Mental Status Change, Itching Aripiprazole Mental Status Change Current Outpatient Medications Medication Sig psyllium (METAMUCIL FIBER SINGLES) 3.4 gram packet Take 1.7 g by mouth. verapamil SR (CALAN SR, ISOPTIN SR) 120 mg CR tablet Take 120 mg by mouth. [START ON 12/22/2021] oxyCODONE-acetaminophen (PERCOCET 10) 10-325 mg tablet Take 1 tablet by mouth three times daily as needed for pain for up to 30 days. Do not start before December 22, 2021. buPROPion XL (WELLBUTRIN XL) 150 mg 24 hr tablet TAKE 1 TABLET BY MOUTH EVERY 24 HOURS cetirizine (ZYRTEC) 10 mg tablet Take 10 mg by mouth once daily. AJOVY SYRINGE 225 mg/1.5 mL syringe nortriptyline (PAMELOR) 50 mg capsule nortriptyline 50 mg capsule DULoxetine (CYMBALTA) 30 mg capsule duloxetine 30 mg capsule,delayed release take 1 capsule by mouth once daily DULoxetine (CYMBALTA) 60 mg capsule TAKE 1 CAPSULE BY MOUTH EVERY DAY. DO NOT CRUSH OR CHEW DULoxetine (CYMBALTA) 30 mg capsule Take 30 mg by mouth once daily. FLUoxetine (PROZAC) 20 mg capsule Take 60 mg by mouth once daily. pantoprazole DR (PROTONIX) 40 mg tablet Take 40 mg by mouth twice daily. potassium chloride ER (K-DUR, KLOR-CON) 20 mEq tablet Take 20 mEq by mouth twice daily. NURTEC ODT 75 mg disintegrating tablet tiZANidine (ZANAFLEX) 4 mg tablet TAKE 2 TABLETS BY MOUTH EVERY NIGHT NEEDED FOR INSOMNIA verapamil SR (CALAN SR, ISOPTIN SR) 120 mg CR tablet Take 120 mg by mouth daily at bedtime. gabapentin (NEURONTIN) 600 mg tablet Take 1 tablet by mouth three times daily for 30 days. amLODIPine (NORVASC) 10 mg tablet Take 10 mg by mouth once daily. No current facility-administered medications for this visit. PHYSICAL EXAMINATION: VIDEO EXAM: (performed via video enabled technology) GENERAL: alert and appropriate, in no distress, well-hydrated, well nourished and happy, smiling, interactive HEAD: normocephalic, no abnormality or lesion noted RESPIRATORY: breathing non-labored NEUROLOGIC: no obvious deficit ASSESSMENT: Patient is stable. Chronic pain is persistent. Medications are helping Tate Baltazar to have an improved quality of life. Patient compliance with Opioid Contract: patient is NOT currently compliant Encounter Diagnosis ICD-10-CM 1. RSD (reflex sympathetic dystrophy) G90.50 2. Chronic pain syndrome G89.4 3. Lumbar radiculopathy M54.16 4. Chronic pain of right knee M25.561 G89.29 5. 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 Patient was counseled on the importance of taking medications as prescribed, the potential for overdose, and the risk of addiction. Advised going forward any violationof the pain agreement will result in narcotics being discontinued. Patient verbalized understanding. The patient understands the goal of our treatment is a reduction in pain and/or an improved level of functioning with activities of daily living. If at any time the patient does not feel the medications are helping them to achieve these goals, the medications may be discontinued. The patient reports a reduction in pain and an improved level of functioning with activities of daily living and denies any significant adverse effects; therefore, the medications will be continued. The patient reports a reduction in pain and/or an improved level of functioning with activities of daily living, denies any significant adverse effects, is compliant with the pain management agreement and there are no signs of medication misuse, abuse or diversion; therefore, the medications will be continued. Continue percocet If ineffective plan to trial Xtampza Continue Gabapentin and zanaflex Continue HEP. No NSAIDs. Continue to use knee brace. He stopped PT because it was causing more pain Ok to repeat Right shoulder injection prn Order repeat knee injection prn - may repeat L5-S1 LESI prn Continue TENS unit for shoulder pain Continue lido-prilo cream and diclofenac gel Previously discussed SCS- he declines f/u in 1 month- Mor Edgar APRN.DEEPA documented in this encounterCleveland [id number] Miscellaneous Notes* Telephone Encounter - Pratibha Deras RN - 12/17/2021 8:41 AM EDT Yes pt came in yesterday for UDS. Pratibha Deras RN * Telephone Encounter - Mor Edgar APRN.CNP - 12/17/2021 8:34 AM EDT Did he come? * Telephone Encounter - Pratibha Deras RN - 12/16/2021 8:07 AM EDT Pt called for UDS today, pt states that he will be here today. Please advise. Pratibha Deras RN documented in this encounterA[facility]07-28-2022 Miscellaneous Notes* Telephone Encounter - Mor Edgar APRN.CNP - 12/12/2021 3:11 PM EDT Order entered * Telephone Encounter - Nabila Moses RN - 12/12/2021 3:10 PM EDT Can you enter corrected UDS order? He will be called on 12/16/21. Nabila Moses RN documented in this [facility]07-21-2022 Miscellaneous Notes* Telephone Encounter - Edelmira Perera RN - 12/05/2021 9:37 AM EDT Note made to call 12/16 Edelmira Perera RN * Telephone Encounter - Mor Edgar APRN.CNP - 12/05/2021 9:21 AM EDT Please call the patient on 12/16/2021 for a UDS. Order entered. Thanks documented in this encounterA[facility]07-05-2022 Instructions* Patient Instructions* Mor Edgar APRN.CNP - 11/19/2021 4:02 PM EDT Continue percocet If ineffective plan to trial Xtampza Continue Gabapentin and zanaflex Continue HEP. No NSAIDs. Continue to use knee brace. He stopped PT because it was causing more pain Ok to repeat Right shoulder injection prn - 12/20/21 Ok to repeat knee injection prn - After 12/04/21 He reports only 50% benefit with last injection but it greatly increased his abiliity to do his ADL's. may repeat L5-S1 LESI prn Continue TENS unit for shoulder pain Continue lido-prilo cream and diclofenac gel Previously discussed SCS- he declines f/u in 1 month- documented in this encounterA[facility]07-05-2022 History of Present illness Narrative* Mor Edgar APRN.CNP - 11/19/2021 3:45 PM EDT DATE: November 19, 2021 This video visit was performed via Stereobot video visit. Patient consented to receive health care services via virtual visit for this encounter Provider Location: Non-[facility] Patient Location: Patient Home or Place of Residence Risks, benefits, and limitations of receiving care virtually were discussed with the patient. The patient expressed understanding and is willing to proceed. Chief Complaint: Pain History of Present Illness: Tate Baltazar is a 46 year old year old male being seen at [facility] for a evaluation and/or management of their chronic pain. He states that since the last visit symptoms have been persistent and stable. The patient was last seen in the office on 12/25/20, last virtual visit 09/18/21. He reports the knee injections provided greater than 60% improvement. The shoulder injection provided about 50% pain relief and improvement in his ability to perform ADL's but the pain is starting to return. He is pending a shoulder injection. The pain is currently described as follows: Location: lower back, right arm, and right leg, right knee Radiation: right leg and right foot Intensity: 5/10 Timing:constant Character: sharp, throbbing, and burning Numbness/tingling: yes, rt leg and right arm Worsening factors: Increased activity Relieving factors: meds falls:denies Patient denies any bowel or bladder dysfunction. Since the last office visit the patients medical history has not changed. The patient denies any new diagnoses, hospital visits or ER visits. The patient is currently prescribed gabapentin and oxycodone from our office. The last doses were taken this morning The medications are partially effective. He feels the morphine may be causing GI upset. The patient denies constipation,rashes, drowsiness,weight gain, weight loss,dizziness,and fatigue. The OARRS report has been reviewed and is consistent with the patients medical history and medication intake. Last Urine Drug Screen (UDS): 07/10/2021. The UDS has been reviewed and is consistent with medications prescribed. REVIEW OF SYSTEMS: GENERAL: No weight loss, malaise or fevers RESPIRATORY: Negative for cough, hemoptysis, wheezing, COPD, dyspnea or shortness of breath. CARDIOVASCULAR: Negative for chest pain, leg swelling, hypertension, CHF or palpitations GI: No nausea, vomiting, or diarrhea. 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 PAST SURGICAL HISTORY Procedure Laterality Date APPENDECTOMY CARPAL TUNNEL Left 2014 COLONOSCOPY 20's with EGD EGD TRANSORAL BIOPSY SINGLE/MULTIPLE 10/02/15 EXCISION PILONIDAL CYST/SINUS EXTENSIVE 07/05/10 closed PAST SURGICAL HISTORY OF right knee surgery TONSILLECTOMY PRIMARY/SECONDARY <AGE 14 Tonsillectomy VASECTOMY UNI/BI SPX W/POSTOP SEMEN EXAMS Bilateral 05/23/2016 FAMILY HISTORY Problem Relation Age of Onset Prostate Cancer Father Hypertension Father Social History Tobacco Use Smoking status: Never Smoker Smokeless tobacco: Never Used Vaping Use Vaping Use: Never used Substance Use Topics Alcohol use: Yes Comment: weekly Drug use: No Allergies: Pseudoephedrine Unknown Vicodin [Hydrocodon* Mental Status Change, Itching Current Outpatient Medications Medication Sig amLODIPine (NORVASC) 10 mg tablet Take 10 mg by mouth once daily. gabapentin (NEURONTIN) 100 mg capsule Take 100 mg by mouth three times daily. sildenafil (VIAGRA) 50 mg tablet Take 50 mg by mouth as needed. oxyCODONE-acetaminophen (PERCOCET) 5-325 mg ORAL per tablet as needed. No current facility-administered medications for this visit. PHYSICAL EXAMINATION: VIDEO EXAM: (performed via video enabled technology) GENERAL: alert and appropriate, in no distress, well-hydrated, well nourished and happy, smiling, interactive HEAD: normocephalic, no abnormality or lesion noted RESPIRATORY: breathing non-labored NEUROLOGIC: no obvious deficit ASSESSMENT: Patient is stable. Chronic pain is persistent. Medications are helping Tate Baltazar to have an improved quality of life. Patient compliance with Opioid Contract: patient is compliant Encounter Diagnosis ICD-10-CM 1. Chronic pain syndrome G89.4 oxyCODONE-acetaminophen (PERCOCET 10) 10-325 mg tablet 2. Chronic pain of right knee M25.561 G89.29 3. Chronic right shoulder pain M25.511 G89.29 4. Lumbar radiculopathy M54.16 5. Degeneration of intervertebral disc of lumbar region M51.36 6. Generalized osteoarthritis M15.9 7. Osteoarthritis of right shoulder, unspecified osteoarthritis type M19.011 8. Strain of neck muscle, subsequent encounter S16.1XXD 9. Spasm of back muscles M62.830 PLAN: The patient understands the goal of our treatment is a reduction in pain and/or an improved level of functioning with activities of daily living. If at any time the patient does not feel the medications are helping them to achieve these goals, the medications may be discontinued. The patient reports a reduction in pain and/or an improved level of functioning with activities of daily living, denies any significant adverse effects, is compliant with the pain management agreement and there are no signs of medication misuse, abuse or diversion; therefore, the medications will be continued. Continue percocet If ineffective plan to trial Xtampza Continue Gabapentin and zanaflex Continue HEP. No NSAIDs. Continue to use knee brace. He stopped PT because it was causing more pain Ok to repeat Right shoulder injection prn - 12/20/21 Ok to repeat knee injection prn - After 12/04/21 He reports only 50% benefit with last injection but it greatly increased his abiliity to do his ADL's. may repeat L5-S1 LESI prn Continue TENS unit for shoulder pain Continue lido-prilo cream and diclofenac gel Previously discussed SCS- he declines f/u in 1 month- Mor Edgar APRN.CNP documented in this encounterA[facility]06-17-2022 Evaluation + Plan note Future Scheduled Tests Laboratory* Thyroid Stimulating Hormone 11/01/21 * Complete Blood Count 11/01/21 * Lipid Profile 11/01/21 * Microalbumin Level Urine 11/01/21 * Vitamin D Level 11/01/21 * Complete Metabolic Panel 11/01/21 Radiology* MRI Spine Lumbar w/o Contrast 10/28/21 * US Groin Left 09/24/21 [facility] 11-18-2021 Hospital Discharge instructions Patient Education 04/04/2021 00:08:45 Abdominal Pain Abdominal Pain Abdominal pain is pain in the stomach or belly area. Everyone has this pain from time to time. In many cases it goes away on its own. But abdominal pain can sometimes be due to a serious problem, such as appendicitis. So it s important to know when to get help. Causes of abdominal pain There are many possible causes of abdominal pain. Common causes in adults include: Constipation, diarrhea, or gas Stomach acid flowing back up into the esophagus (acid reflux or heartburn) Severe acid reflux, called GERD (gastroesophageal reflux disease) A sore in the lining of the stomach or small intestine (peptic ulcer) Inflammation of the gallbladder, liver, or pancreas Gallstones or kidney stones Appendicitis Intestinal blockage An internal organ pushing through a muscle or other tissue (hernia) Urinary tract infections In women, menstrual cramps, fibroids, ovarian cysts, pelvic inflammatory disease, or endometriosis Inflammation or infection of the intestines, including Crohn's disease and ulcerative colitis Irritable bowel syndrome Diagnosing the cause of abdominal pain Your healthcare provider will give you a physical exam help find the cause of your pain. If needed,you will have tests. Belly pain has many possible causes. So it can be hard to find the reason for your pain. Giving details about your pain can help. Tell your provider where and when you feel the pain, and what makes it better or worse. Also let your provider know if you have other symptoms such as: Fever Tiredness Upset stomach (nausea) Vomiting Changes in bathroom habits Blood in the stool or black, tarry stool Weight loss that you can't explain (involuntary weight loss?) Also report any family history of stomach or intestinal problems, or cancers. Tell your provider about all your alcohol use and drug use. Tell your provider about all medicines you use, including herbs, vitamins, and supplements. Treating abdominal pain Some causes of pain need emergency medical treatment right away. These include appendicitis or a bowel blockage. Other problems can be treated with rest, fluids, or medicines. Your healthcare provider can give you specific instructions for treatment or self-care based on what is causing your pain. If you have vomiting or diarrhea, sip water or other clear fluids. When you are ready to eat solid foods again, start with small amounts of [id number], low- fat foods. These include apple sauce, toast, or crackers. When to get medical care Call 911 or go to the hospital right away if you: Can t pass stool and are vomiting Are vomiting blood or have bloody diarrhea or black, tarry diarrhea Have chest, neck, or shoulder pain Feel like you might pass out Have pain in your shoulder blades with nausea Have sudden, severe belly pain Have new, severe pain unlike any you have felt before Have a belly that is rigid, hard, and hurts to touch Call your healthcare provider if you have: Pain for more than 5 days Bloating for more than 2 days Diarrhea for more than 5 days A fever of 100.4 F (38 C) or higher, or as directed by your healthcare provider Pain that gets worse Weight loss for no reason Continued lack of appetite Blood in your stool How to prevent abdominal pain Here are some tips to help prevent abdominal pain: Eat smaller amounts of food at each meal. Don't eat greasy, fried, or other high-fat foods. Don't eat foods that give you gas. Exercise regularly. Drink plenty of fluids. To help prevent GERD symptoms: Quit smoking. Reduce alcohol and foods that increase stomach acid. Don't use aspirin or azxk-[id number] pain and fever medicines, if possible. This includes nonsteroidal anti-inflammatory drugs (NSAIDs). Lose excess weight. Finish eating at least 2 hours before you go to bed or lie down. Raise the head of your bed. [id number] [employer]. [address] [place] [address]. All rights reserved. This information is not intended as a substitute for professional medical care. Always follow yourhealthcare professional's instructions. Follow Up Care 04/03/2021 23:37:44 With:LANETTE HARKINS DO Address: [phone] When:2-4 days [facility] 11-17-2021 Evaluation + Plan note Future Scheduled Tests Laboratory* Throat Culture 04/03/21 * Respiratory ID Panel with COVID-19 by PCR 04/03/21 * Basic Metabolic Panel 05/24/20 [facility] 01-07-2021 Evaluation + Plan note Future Scheduled Tests Laboratory* Basic Metabolic Panel 05/24/20 [facility] 06-05-2018 History of Past illness Narrative* Problem Noted Date Resolved Date Cerebral edema 10/20/2017 10/23/2017 Epigastric pain 09/27/2015 10/23/2017 documented as of this encounter (statuses as of 08/22/2021) [facility] History of Past illness Narrative* Problem Noted Date Resolved Date Cerebral edema 10/20/2017 10/23/2017 Epigastric pain 09/27/2015 10/23/2017 documented as of this encounter (statuses as of 08/23/2021) [facility] History of Past illness Narrative* Problem Noted Date Resolved Date Cerebral edema 10/20/2017 10/23/2017 Epigastric pain 09/27/2015 10/23/2017 documented as of this encounter (statuses as of 09/05/2021) [facility] History of Past illness Narrative* Problem Noted Date Resolved Date Cerebral edema 10/20/2017 10/23/2017 Epigastric pain 09/27/2015 10/23/2017 documented as of this encounter (statuses as of 09/19/2021) [facility] History of Past illness Narrative* Problem Noted Date Resolved Date Cerebral edema 10/20/2017 10/23/2017 Epigastric pain 09/27/2015 10/23/2017 documented as of this encounter (statuses as of 09/20/2021) [facility] History of Past illness Narrative* Problem Noted Date Resolved Date Cerebral edema 10/20/2017 10/23/2017 Epigastric pain 09/27/2015 10/23/2017 documented as of this encounter (statuses as of 11/19/2021) [facility] History of Past illness Narrative* Problem Noted Date Resolved Date Cerebral edema 10/20/2017 10/23/2017 Epigastric pain 09/27/2015 10/23/2017 documented as of this encounter (statuses as of 12/05/2021) [facility] History of Past illness Narrative* Problem Noted Date Resolved Date Cerebral edema 10/20/2017 10/23/2017 Epigastric pain 09/27/2015 10/23/2017 documented as of this encounter (statuses as of 12/12/2021) [facility] History of Past illness Narrative* Problem Noted Date Resolved Date Cerebral edema 10/20/2017 10/23/2017 Epigastric pain 09/27/2015 10/23/2017 documented as of this encounter (statuses as of 12/17/2021) [facility] History of Past illness Narrative* Problem Noted Date Resolved Date Cerebral edema 10/20/2017 10/23/2017 Epigastric pain 09/27/2015 10/23/2017 documented as of this encounter (statuses as of 12/20/2021) [facility] History of Past illness Narrative* Problem Noted Date Resolved Date Cerebral edema 10/20/2017 10/23/2017 Epigastric pain 09/27/2015 10/23/2017 documented as of this encounter (statuses as of 01/21/2022) [facility] History of Past illness Narrative* Problem Noted Date Resolved Date Cerebral edema 10/20/2017 10/23/2017 Epigastric pain 09/27/2015 10/23/2017 documented as of this encounter (statuses as of 02/19/2022) [facility] History of Past illness Narrative* Problem Noted Date Resolved Date Cerebral edema 10/20/2017 10/23/2017 Epigastric pain 09/27/2015 10/23/2017 documented as of this encounter (statuses as of 03/17/2022) [facility] History of Past illness Narrative* Problem Noted Date Resolved Date Cerebral edema 10/20/2017 10/23/2017 Epigastric pain 09/27/2015 10/23/2017 documented as of this encounter (statuses as of 03/21/2022) [facility] History of Past illness Narrative* Problem Noted Date Resolved Date Cerebral edema 10/20/2017 10/23/2017 Epigastric pain 09/27/2015 10/23/2017 documented as of this encounter (statuses as of 03/21/2022) [facility] History of Past illness Narrative* Problem Noted Date Resolved Date Cerebral edema 10/20/2017 10/23/2017 Epigastric pain 09/27/2015 10/23/2017 documented as of this encounter (statuses as of 03/21/2022) [facility] History of Past illness Narrative* Problem Noted Date Resolved Date Cerebral edema 10/20/2017 10/23/2017 Epigastric pain 09/27/2015 10/23/2017 documented as of this encounter (statuses as of 04/21/2022) [facility] History of Past illness Narrative* Problem Noted Date Resolved Date Cerebral edema 10/20/2017 10/23/2017 Epigastric pain 09/27/2015 10/23/2017 documented as of this encounter (statuses as of 04/22/2022) [facility] History of Past illness Narrative* Problem Noted Date Resolved Date Cerebral edema 10/20/2017 10/23/2017 Epigastric pain 09/27/2015 10/23/2017 documented as of this encounter (statuses as of 05/24/2022) [facility] History of Past illness Narrative* Problem Noted Date Resolved Date Cerebral edema 10/20/2017 10/23/2017 Epigastric pain 09/27/2015 10/23/2017 documented as of this encounter (statuses as of 05/26/2022) [facility] History of Past illness Narrative* Problem Noted Date Resolved Date Cerebral edema 10/20/2017 10/23/2017 Epigastric pain 09/27/2015 10/23/2017 documented as of this encounter (statuses as of 06/02/2022) [facility] History of Past illness Narrative* Problem Noted Date Resolved Date Cerebral edema 10/20/2017 10/23/2017 Epigastric pain 09/27/2015 10/23/2017 documented as of this encounter (statuses as of 06/16/2022) [facility] History of Past illness Narrative* Problem Noted Date Resolved Date Cerebral edema 10/20/2017 10/23/2017 Epigastric pain 09/27/2015 10/23/2017 documented as of this encounter (statuses as of 06/17/2022) [facility] History of Past illness Narrative* Problem Noted Date Resolved Date Cerebral edema 10/20/2017 10/23/2017 Epigastric pain 09/27/2015 10/23/2017 documented as of this encounter (statuses as of 06/20/2022) [facility] History of Past illness Narrative* Problem Noted Date Resolved Date Cerebral edema 10/20/2017 10/23/2017 Epigastric pain 09/27/2015 10/23/2017 documented as of this encounter (statuses as of 06/24/2022) [facility] History of Past illness Narrative* Problem Noted Date Resolved Date Cerebral edema 10/20/2017 10/23/2017 Epigastric pain 09/27/2015 10/23/2017 documented as of this encounter (statuses as of 06/30/2022) [address]-2018 History of Past illness Narrative* Problem Noted Date Resolved Date Cerebral edema 10/20/2017 10/23/2017 Epigastric pain 09/27/2015 10/23/2017 documented as of this encounter (statuses as of 07/01/2022) [facility] History of Past illness Narrative* Problem Noted Date Resolved Date Cerebral edema 10/20/2017 10/23/2017 Epigastric pain 09/27/2015 10/23/2017 documented as of this encounter (statuses as of 07/21/2022) [facility] History of Past illness Narrative* Problem Noted Date Resolved Date Cerebral edema 10/20/2017 10/23/2017 Epigastric pain 09/27/2015 10/23/2017 documented as of this encounter (statuses as of 07/24/2022) [facility] History of Past illness Narrative* Problem Noted Date Resolved Date Cerebral edema 10/20/2017 10/23/2017 Epigastric pain 09/27/2015 10/23/2017 documented as of this encounter (statuses as of 08/16/2022) [facility] History of Past illness Narrative* Problem Noted Date Resolved Date Cerebral edema 10/20/2017 10/23/2017 Epigastric pain 09/27/2015 10/23/2017 documented as of this encounter (statuses as of 08/18/2022) [facility] History of Past illness Narrative* Problem Noted Date Resolved Date Cerebral edema 10/20/2017 10/23/2017 Epigastric pain 09/27/2015 10/23/2017 documented as of this encounter (statuses as of 08/20/2022) [facility] History of Past illness Narrative* Problem Noted Date Resolved Date Cerebral edema 10/20/2017 10/23/2017 Epigastric pain 09/27/2015 10/23/2017 documented as of this encounter (statuses as of 09/01/2022) [facility] History of Past illness Narrative* Problem Noted Date Resolved Date Cerebral edema 10/20/2017 10/23/2017 Epigastric pain 09/27/2015 10/23/2017 documented as of this encounter (statuses as of 09/05/2022) [facility] History of Past illness Narrative* Problem Noted Date Resolved Date Cerebral edema 10/20/2017 10/23/2017 Epigastric pain 09/27/2015 10/23/2017 documented as of this encounter (statuses as of 09/10/2022) [facility] History of Past illness Narrative* Problem Noted Date Resolved Date Cerebral edema 10/20/2017 10/23/2017 Epigastric pain 09/27/2015 10/23/2017 documented as of this encounter (statuses as of 09/24/2022) [facility] History of Past illness Narrative* Problem Noted Date Resolved Date Cerebral edema 10/20/2017 10/23/2017 Epigastric pain 09/27/2015 10/23/2017 documented as of this encounter (statuses as of 10/17/2022) [facility] History of Past illness Narrative* Problem Noted Date Resolved Date Cerebral edema 10/20/2017 10/23/2017 Epigastric pain 09/27/2015 10/23/2017 documented as of this encounter (statuses as of 10/22/2022) [facility] History of Past illness Narrative* Problem Noted Date Resolved Date Cerebral edema 10/20/2017 10/23/2017 Epigastric pain 09/27/2015 10/23/2017 documented as of this encounter (statuses as of 11/06/2022) [facility] History of Past illness Narrative* Problem Noted Date Resolved Date Cerebral edema 10/20/2017 10/23/2017 Epigastric pain 09/27/2015 10/23/2017 documented as of this encounter (statuses as of 11/19/2022) [facility] History of Past illness Narrative* Problem Noted Date Resolved Date Cerebral edema 10/20/2017 10/23/2017 Epigastric pain 09/27/2015 10/23/2017 documented as of this encounter (statuses as of 11/19/2022) [facility] History of Past illness Narrative* Problem Noted Date Resolved Date Cerebral edema 10/20/2017 10/23/2017 Epigastric pain 09/27/2015 10/23/2017 documented as of this encounter (statuses as of 11/19/2022) [facility] History of Past illness Narrative* Problem Noted Date Resolved Date Cerebral edema 10/20/2017 10/23/2017 Epigastric pain 09/27/2015 10/23/2017 documented as of this encounter (statuses as of 11/20/2022) [facility] History of Past illness Narrative* Problem Noted Date Resolved Date Cerebral edema 10/20/2017 10/23/2017 Epigastric pain 09/27/2015 10/23/2017 documented as of this encounter (statuses as of 11/20/2022) [facility] History of Past illness Narrative* Problem Noted Date Diagnosed Date Resolved Date Cerebral edema 10/20/2017 10/23/2017 Epigastric pain 09/27/2015 10/23/2017 documented as of this encounter (statuses as of 12/01/2022) [facility] History of Past illness Narrative* Problem Noted Date Diagnosed Date Resolved Date Cerebral edema 10/20/2017 10/23/2017 Epigastric pain 09/27/2015 10/23/2017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 intervertebral disc Radiculopathy, lumbar region [M54.16 (ICD-10-CM)] Thoracic or lumbosacral neuritis or radiculitis, unspecified Other chronic pain Myofascial pain syndrome Mylagia and myositis, unspecified Chronic right shoulder pain Pain in joint, shoulder region Pain in right elbow Pain in joint, upper arm Reflex sympathetic dystrophy Reflex sympathetic dystrophy, unspecified Primary osteoarthritis of right knee Primary localized osteoarthrosis, lower leg Chronic right shoulder pain Pain in joint, shoulder region documented in this encounter [facility] note* Diagnosis Chronic pain syndrome- Primary documented in this encounter [facility] note* Diagnosis Pain in right elbow Pain in joint, upper arm Chronic pain syndrome documented in this encounter [facility] note* Diagnosis 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)- Primary 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) Dysarthria Facial droop Facial weakness Oropharyngeal dysphagia Dysphagia, oropharyngeal phase Acute right hemiparesis (HCC) Hemiplegia, unspecified, affecting unspecified side Dysphagia due to recent stroke Dysphagia, late effect of cerebrovascular disease Epigastric pain Abdominal pain, epigastric TSH deficiency Other specified acquired hypothyroidism Cerebral edema (HCC) Cerebral edema Acute right hemiparesis (HCC) Hemiplegia, unspecified, affecting unspecified side TSH deficiency Other specified acquired hypothyroidism Epigastric pain Abdominal pain, epigastric Cerebral edema (HCC) Cerebral edema Preoperative examination- Primary Preoperative examination, unspecified RSD (reflex sympathetic dystrophy) Reflex sympathetic dystrophy, unspecified Essential hypertension Unspecified essential hypertension JANNETTE (obstructive sleep apnea) Obstructive sleep apnea (adult) (pediatric) Hypokalemia Hypopotassemia Dysphagia due to recent stroke Dysphagia, late effect of cerebrovascular disease Chronic pain syndrome- Primary Primary osteoarthritis of right knee Primary localized osteoarthrosis, lower leg Intervertebral disc disorder with radiculopathy of lumbar region Thoracic or lumbosacral neuritis or radiculitis, unspecified RSD (reflex sympathetic dystrophy) Reflex sympathetic dystrophy, unspecified 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 (ICD-10-CM)] DDD (degenerative disc disease), lumbar Degeneration of lumbar or lumbosacral intervertebral disc Other chronic pain Radiculopathy, lumbar region [M54.16 (ICD-10-CM)] Thoracic or lumbosacral neuritis or radiculitis, unspecified Myofascial pain syndrome Mylagia and myositis, unspecified Chronic right shoulder pain Pain in joint, shoulder region Pain in right elbow Pain in joint, upper arm Primary osteoarthritis of right knee Primary localized osteoarthrosis, lower leg Chronic right shoulder pain Pain in joint, shoulder region [facility] Diagnosis 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)- Primary 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) Dysarthria Facial droop Facial weakness Oropharyngeal dysphagia Dysphagia, oropharyngeal phase Acute right hemiparesis (HCC) Hemiplegia, unspecified, affecting unspecified side Dysphagia due to recent stroke Dysphagia, late effect of cerebrovascular disease Epigastric pain Abdominal pain, epigastric TSH deficiency Other specified acquired hypothyroidism Cerebral edema (HCC) Cerebral edema Dysphagia due to recent stroke Dysphagia, late effect of cerebrovascular disease Acute right hemiparesis (HCC) Hemiplegia, unspecified, affecting unspecified side TSH deficiency Other specified acquired hypothyroidism Epigastric pain Abdominal pain, epigastric Cerebral edema (HCC) Cerebral edema Migraine without aura Migraine without aura, without mention of intractable migraine without mention of status migrainosus Chronic pain syndrome [G89.4 (ICD-10-CM)] Chronic pain syndrome Preoperative examination- Primary Preoperative examination, unspecified RSD (reflex sympathetic dystrophy) Reflex sympathetic dystrophy, unspecified Essential hypertension Unspecified essential hypertension JANNETTE (obstructive sleep apnea) Obstructive sleep apnea (adult) (pediatric) Hypokalemia Hypopotassemia Dysphagia due to recent stroke Dysphagia, late effect of cerebrovascular disease Primary osteoarthritis of right knee Primary localized osteoarthrosis, lower leg Chronic right shoulder pain Pain in joint, shoulder region documented in this encounter [facility] note* Diagnosis 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)- Primary 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) Dysarthria Facial droop Facial weakness Oropharyngeal dysphagia Dysphagia, oropharyngeal phase Acute right hemiparesis (HCC) Hemiplegia, unspecified, affecting unspecified side Dysphagia due to recent stroke Dysphagia, late effect of cerebrovascular disease Epigastric pain Abdominal pain, epigastric TSH deficiency Other specified acquired hypothyroidism Cerebral edema (HCC) Cerebral edema Acute right hemiparesis (HCC) Hemiplegia, unspecified, affecting unspecified side TSH deficiency Other specified acquired hypothyroidism Epigastric pain Abdominal pain, epigastric Cerebral edema (HCC) Cerebral edema Preoperative examination- Primary Preoperative examination, unspecified RSD (reflex sympathetic dystrophy) Reflex sympathetic dystrophy, unspecified Essential hypertension Unspecified essential hypertension JANNETTE (obstructive sleep apnea) Obstructive sleep apnea (adult) (pediatric) Hypokalemia Hypopotassemia Dysphagia due to recent stroke Dysphagia, late effect of cerebrovascular disease Arthropathies in other specified diseases classified elsewhere, right knee- Primary documented in this encounter [facility] note* Diagnosis Nausea and vomiting, unspecified vomiting type- Primary Epigastric pain Abdominal pain, epigastric [facility] Diagnosis 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)- Primary 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) Dysarthria Facial droop Facial weakness Oropharyngeal dysphagia Dysphagia, oropharyngeal phase Acute right hemiparesis (HCC) Hemiplegia, unspecified, affecting unspecified side Dysphagia due to recent stroke Dysphagia, late effect of cerebrovascular disease Epigastric pain Abdominal pain, epigastric TSH deficiency Other specified acquired hypothyroidism Cerebral edema (HCC) Cerebral edema Acute right hemiparesis (HCC) Hemiplegia, unspecified, affecting unspecified side TSH deficiency Other specified acquired hypothyroidism Epigastric pain Abdominal pain, epigastric Cerebral edema (HCC) Cerebral edema Preoperative examination- Primary Preoperative examination, unspecified RSD (reflex sympathetic dystrophy) Reflex sympathetic dystrophy, unspecified Essential hypertension Unspecified essential hypertension JANNETTE (obstructive sleep apnea) Obstructive sleep apnea (adult) (pediatric) Hypokalemia Hypopotassemia Dysphagia due to recent stroke Dysphagia, late effect of cerebrovascular disease Chronic pain syndrome- Primary Chronic right shoulder pain Pain in joint, shoulder region Contusion of right hip region [facility] 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)- Primary 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) Dysarthria Facial droop Facial weakness Oropharyngeal dysphagia Dysphagia, oropharyngeal phase Acute right hemiparesis (HCC) Hemiplegia, unspecified, affecting unspecified side Dysphagia due to recent stroke Dysphagia, late effect of cerebrovascular disease Epigastric pain Abdominal pain, epigastric TSH deficiency Other specified acquired hypothyroidism Cerebral edema (HCC) Cerebral edema Acute right hemiparesis (HCC) Hemiplegia, unspecified, affecting unspecified side TSH deficiency Other specified acquired hypothyroidism Epigastric pain Abdominal pain, epigastric Cerebral edema (HCC) Cerebral edema Preoperative examination- Primary Preoperative examination, unspecified RSD (reflex sympathetic dystrophy) Reflex sympathetic dystrophy, unspecified Essential hypertension Unspecified essential hypertension JANNETTE (obstructive sleep apnea) Obstructive sleep apnea (adult) (pediatric) Hypokalemia Hypopotassemia Dysphagia due to recent stroke Dysphagia, late effect of cerebrovascular disease Chronic pain syndrome- Primary Chronic right shoulder pain Pain in joint, shoulder region Contusion of right hip region [facility] No data available for this section [facility] Discharge instructions No data available for this section [facility] Progress note No data available for this section [facility] Progress note Author Fred Huber [facility] Note Date/Time October 19, 2024 11:28 am [facility] [address] [place] [address] [address] [place] [address] OFFICE VISIT Date of Service: 10/19/24 MR#: [id number] Acct: [id number] Name: TATE BALTAZAR Rep #: [id number] : 1975 Provider: Dr. Raudel Huber MD Age/Sex: 49/M Location: [facility] Status: Signed Intake Vital Signs 09/20/24 10:55 10/06/24 11:26 10/19/24 11:08 Height 6 ft 6 ft 6 ft Weight: 240 lb 244 lb BMI 32.5 33.0 Intake Visit Reasons: RIGHT KNEE Chief Complaint: 2nd Euflexxa Right knee pain Accompanied by: Is patient in pain?: Yes Pain scale (1-10): 6 Allergies hydrocodone (From Vicodin) Adverse Reaction (Verified 10/19/24 11:14) Other Medications ?Medication ?Instructions ?Recorded ?Confirmed ?Type pantoprazole 40 mg tablet,delayed 40 mg PO DAILY 09/1810/19/24 History release tizanidine 4 mg capsule 8 mg PO QHS 09/18/20 5 History bupropion HCl 300 mg 24 hr tablet, 300 mg PO QDAY 02/1510/19/24 History extended release cyclobenzaprine 5 mg tablet 5 mg PO TID PRN 02/29/24 0 10/19/24 History duloxetine 60 mg capsule,delayed 60 mg PO QDAY 4 10/19/24 History release fexofenadine 180 mg tablet 180 mg PO QDAY 02/29/2409/09 History gabapentin 100 mg tablet 600 mg PO TID 02/29/2410/19 History mirabegron 25 mg tablet,extended 25 mg PO QDAY 10/19/24 History release 24 hr (Myrbetriq) potassium chloride 20 mEq 40 meq PO DAILY 02/29/2409/09 History tablet,extended release potassium chloride 20 mEq 20 meq PO BID 02/29/2410/19 History tablet,extended release(part/cryst) rimegepant 75 mg disintegrating 75 mg PO QDAY PRN 02/1510/19/24 History tablet (Nurtec ODT) sucralfate 1 gram tablet 1 g PO 4X/DAY 02/29/2410/19 History tamsulosin 0.4 mg capsule 0.4 mg PO QDAY 02/29/2409/09 History valsartan 160 mg tablet 160 mg PO QDAY 02/29/2409/09 History verapamil 120 mg tablet,extended 240 mg PO QHS 4 10/19/24 History release zonisamide 50 mg capsule 50 mg PO QHS 02/29/24 History Have you fallen in the past year?: No PFSH Medical History Right shoulder pain Osteoarthritis of right knee Right knee pain Loose, teeth Hearing loss, right Alcohol abuse Mood disorder History of steroid therapy Chronic pain History of IBS GERD (gastroesophageal reflux disease) Hiatal hernia Non-smoker CPAP (continuous positive airway pressure) dependence Pain aggravated by walking Edema Irregular heart beat Hypertension Migraine headache Restless legs Injury of back Stroke/cerebrovascular accident Surgical History Hx of cardiac catheterization Hx of colonoscopy History of esophagogastroduodenoscopy (EGD) Hx of vasectomy Hx of arthroscopic knee surgery Hx of tonsillectomy Hx of appendectomy Hx of shoulder surgery Social History household members: spouse and family Smoking Status: Former smoker alcohol intake: current alcohol intake frequency: holidays/special occasions only HPI RIGHT KNEE Details: This documentation accurately reflects the service provided and the decisions made by me, Dr. Fred Huber MD 10/19/24 0830. Part of today?s visit was documented by [ ], acting as scribe. TATE BALTAZAR is a 49 year old M here today for R knee OA for euflexxa injection 2/3. Office Procedures Euflexxa Procedure Details:: Obtained consent for injection. Under sterile conditions, injected the patientsRight knee with 20ml Euflexxa injection. The patient tolerated the injection well without any noted complication. Patient should call our office if redness develops, pain worsens or if they have any concerns. Is this Buy & Bill?: Yes Office Meds Euflexxa 10 mg/mL (mw 2.4-3.6 million) intra-articular syringe Performing Provider: Fred Huber MD Performing Location: [facility] Administered by: Fred Huber MD on 10/19/24 11:20 Dose Route Admin Location Dispensed Lot Number Expiration Date NDC Strap Setter 20 mg intra-articular Right knee 2 mL [id number] 04/09/25 [address]-2 [employer] Coding Level of Care Code Attention Nathan Diagnoses Osteoarthritis of right knee M17.11 Right knee pain M25.561 Comment euflexxa injection 2/3 R knee Assessment and Plan Assessment and Plan (1) Osteoarthritis of right knee: Status: Acute Plan: TATE BALTAZAR is a 49 year old M here today for R knee OA for euflexxa injection 2/3. FU 1 week. Right knee intra-articular Euflexxa injection We discussed the pros and cons risks and benefits of going ahead with right kneeintra-articular Euflexxa injection. The risks include but are not limited to infection, pain, acute flare reaction, stiffness, bleeding, damage to surrounding structures, worsening arthritis or damage to the cartilage. The patient wished to proceed. The anterior aspect of the knee was prepped with chlorhexidine in the usual sterile fashion. Sterile no touch technique was employed. Used Gebauer spray per bottle instructions. 2cc Euflexxa was injectedinto the intra-articular portion of the knee. The patient tolerated procedure well. Bandage placed.There is no complications. Standard post procedure care instructions were given. Red flag symptoms were discussed in which case to return to clinic immediately or go to the emergency department such as redness, swelling, fever, discharge, drainage, increase pain or other symptoms. (2) Right knee pain: Status: Acute Orders: Orders Euflexxa Injection Today Clinical Quality Measures Falls Risk Screening/Assistive Devices Have you fallen in the past year?: No Ortho Exam General General: Yes no acute distress Neurologic: Yes alert and Yes oriented x3 Psychologic: Yes reasonable and appropriate Right Knee Skin/Wound: Yes CDI, No erythema, No ecchymosis and No swelling 10/19/24 1128 <Electronically signed by Fred cuellar MD> Date _ Fred Huber MD Cosigner Signature: Date (if applicable) CC: ~ [facility] Work Phone: Progress note Author Fred Huber [facility] Note Date/Time November 21, 2024 11:58 am [facility] [address] [place] [address] OFFICE VISIT Date of Service: 11/21/24 MR#: [id number] Acct: [id number] Name: TATE BALTAZAR Rep #: [id number] : 1975 Provider: Dr. Raudel Huber MD Age/Sex: 49/M Location: [facility] Status: Signed Intake Vital Signs 10/25/24 10:33 Height 6 ft Weight: 240 lb BMI 32.5 Intake Visit Reasons: RIGHT SHOULDER Chief Complaint: Right shoulder MRI review Is patient in pain?: Yes (Right shoulder ) Pain scale (1-10): 7 Allergies hydrocodone (From Vicodin) Adverse Reaction (Verified 11/21/24 11:39) Other Medications ?Medication ?Instructions ?Recorded ?Confirmed ?Type pantoprazole 40 mg tablet,delayed 40 mg PO DAILY 09/1811/21/24 History release tizanidine 4 mg capsule 8 mg PO QHS 09/18/20 5 History bupropion HCl 300 mg 24 hr tablet, 300 mg PO QDAY 02/1511/21/24 History extended release cyclobenzaprine 5 mg tablet 5 mg PO TID PRN 02/29/24 0 11/21/24 History duloxetine 60 mg capsule,delayed 60 mg PO QDAY 4 11/21/24 History release fexofenadine 180 mg tablet 180 mg PO QDAY 02/29/2412/09 History gabapentin 100 mg tablet 600 mg PO TID 02/29/2411/21 History mirabegron 25 mg tablet,extended 25 mg PO QDAY 11/21/24 History release 24 hr (Myrbetriq) potassium chloride 20 mEq 40 meq PO DAILY 02/29/2412/09 History tablet,extended release potassium chloride 20 mEq 20 meq PO BID 02/29/2411/21 History tablet,extended release(part/cryst) rimegepant 75 mg disintegrating 75 mg PO QDAY PRN 02/1511/21/24 History tablet (Nurtec ODT) sucralfate 1 gram tablet 1 g PO 4X/DAY 02/29/2411/21 History tamsulosin 0.4 mg capsule 0.4 mg PO QDAY 02/29/2412/09 History valsartan 160 mg tablet 160 mg PO QDAY 02/29/2412/09 History verapamil 120 mg tablet,extended 240 mg PO QHS 4 11/21/24 History release zonisamide 50 mg capsule 50 mg PO QHS 02/29/24 History PFSH Medical History Right rotator cuff tear Primary osteoarthritis, right shoulder Right shoulder pain Osteoarthritis of right knee Right knee pain Loose, teeth Hearing loss, right Alcohol abuse Mood disorder History of steroid therapy Chronic pain History of IBS GERD (gastroesophageal reflux disease) Hiatal hernia Non-smoker CPAP (continuous positive airway pressure) dependence Pain aggravated by walking Edema Irregular heart beat Hypertension Migraine headache Restless legs Injury of back Stroke/cerebrovascular accident Surgical History S/P rotator cuff repair Hx of cardiac catheterization Hx of colonoscopy History of esophagogastroduodenoscopy (EGD) Hx of vasectomy Hx of arthroscopic knee surgery Hx of tonsillectomy Hx of appendectomy Hx of shoulder surgery Social History household members: spouse and family Smoking Status: Former smoker alcohol intake: current alcohol intake frequency: holidays/special occasions only HPI RIGHT SHOULDER Details: This documentation accurately reflects the service provided and the decisions made by me, Dr. Fred Huber MD 11/21/24 1047. Part of today?s visit was documented by [ ], acting as scribe. TATE BALTAZAR is a 49 year old M here today for FU R shoulder MRI. Has had prior injections and PT recently. Still hurts. worse with lifting or draining the car old to take the plug out. Patient had prior rotator cuff surgery about 3 years ago now. As well as a procedure on the biceps is unsure exactly when that was. Supplemental Info [facility] Services [address] [place], [place] [address] Upper Ext Joint Only(Routine) MR#: [id number] Acct: [id number] Name: TATE BALTAZAR Rep #: [id number] : 1975 M 49 From: Omega Russo MD PCP: Dr. Lanette Harkins, Status: REG CLI Study: Upper Ext Joint Only(Routine) Date of Exam: 11/15/24 Exam# [id number] Ordering Dr: Fred Huber MD PROCEDURE: UPPER EXT JOINT ONLY(ROUTINE) 11/15/2024 REASON FOR EXAM: PAIN, 2 PRIOR SURGERIES TECHNIQUE: T1, T2, PD, UPPER EXT JOINT ONLY(ROUTINE) Multiplanar and multisequence images were obtained without IV contrast administration. COMPARISON: October 25, 2024 x-ray FINDINGS: Bone Marrow: Suture anchors are noted in the humeral head consistent with prior rotator cuff repair. There is no bony contusion or occult fracture. AC joint: There is moderate AC joint hypertrophy without evidence of separation. There is a type 3 acromion with impingement configuration. Rotator cuff: There is no muscular atrophy. There is a full-thickness, 50% withtear of the distal supraspinatus without retraction. There is severe distal infraspinatus tendinopathy without full- thickness tear. There is severe distal subscapularis tendinopathy without full-thickness tear or retraction. The teres minor appearsintact. Labrum: There is a tear of the labrum from the 12 o'clock-2 o'clock position extending into the biceps tendon anchor. Biceps: The biceps tendon is absent from the biceps tendon groove with avulsion. Effusion: There is a trace joint effusion which extends into the subacromial subdeltoid bursa. MRI/Upper Ext Joint Only(Routine) IMPRESSION: Suture anchors are noted in the humeral head consistent with prior rotator cuff repair. There is moderate AC joint hypertrophy without evidence of separation. There is a type 3 acromion with impingement configuration. There is a full-thickness, 50% with tear of the distal supraspinatus without retraction. There is severe distal infraspinatus tendinopathy without full-thickness tear. There is severe distal subscapularis tendinopathy without full-thickness tear orretraction. There is a tear of the labrum from the 12 o'clock-2 o'clock position extending into the biceps tendon anchor. The biceps tendon is absent from the biceps tendon groove with avulsion. There is a trace joint effusion which extends into the subacromial subdeltoid bursa. Reading Location: [facility] independently reviewed the imaging. Concur with radiologist report. Coding Level of Care Code Off vis,est,level 4 Diagnoses Primary osteoarthritis, right shoulder M19.011 Right shoulder pain M25.511 Right rotator cuff tear M75.101 S/P rotator cuff repair Z98.890 Assessment and Plan Assessment and Plan (1) Primary osteoarthritis, right shoulder: Status: Acute Plan: 49-year-old man with a small leading edge supraspinatus tendon tear in the setting of 2 prior shoulder arthroscopies including rotator cuff repair and an absent long head of the biceps. Discussed the pros and cons risks benefits of conservative treatment he is already had physical therapy and injections versus surgical intervention here. In the form of the right shoulder arthroscopy, subacromial decompression, rotator cuff repair, allograft patch augmentation. Iwill submit for approval of the Arthrex cuff mend patch to his second time revision and re-tear. This can help but increase the rates of healing need for further procedures. Patient understands signed consent form for surgery no further questions or concerns. He does have a history of right-sided weakness in the past as history of a stroke this can increase his risk of complications. Pros and cons risks and benefits were discussed with the patient including but not limited to infection, pain, stiffness, bleeding, damage to surrounding structures, neurovascular injury, recurrence or retear, failure or wear of hardware or fixation, instability, fracture, deep vein thrombosis and pulmonary embolism, anesthetic risks, , patient dissatisfaction, need for further surgery and other risks. Patient understood and wished to proceed with surgery,and signed the informed consent documentation. (2) Right shoulder pain: Status: Acute (3) Right rotator cuff tear: Status: Acute (4) S/P rotator cuff repair: Status: Acute Ortho Exam General General: Yes no acute distress Neurologic: Yes alert and Yes oriented x3 Psychologic: Yes reasonable and appropriate Right Shoulder Skin/Wound: Yes CDI, No ecchymosis, No erythema and No swelling Testing: Positive Hawkin's, Neer's, TTP Biceps, AROM-External Rotation at side 0-60, empty can and belly press normal; Negative Speed's, TTP AC Joint, Drop Arm, cross arm or scapular winging SHOULDER: normal motor and sens to ax nerve, and MRU and AIN/PIN Active and passive forward elevation 170 degrees forward elevation strength is 4+. External rotation strength 5. No crepitus 11/21/24 8523 <Electronically signed by Fred cuellar MD> Date _ Fred Huber MD Cosigner Signature: Date (if applicable) CC: ~ [facility] Work Phone: Progress note Author Fred Huber [facility] Note Date/Time February 09, 2025 10:19am [facility] [address] [place] [address] OFFICE VISIT Date of Service: 02/09/25 MR#: [id number] Acct: [id number] Name: TATE BALTAZAR Rep #: [id number] : 1975 Provider: Dr. Raudel Huber MD Age/Sex: 49/M Location: [facility] Status: Signed Intake Vital Signs 10/25/24 10:33 Height 6 ft Intake Visit Reasons: RIGHT SHOULDER Chief Complaint: Right Shoulder Pain Accompanied by: Self Is patient in pain?: Yes Allergies fentanyl Adverse Reaction (Verified 02/09/25 10:06) Other hydrocodone (From Vicodin) Adverse Reaction (Verified 02/09/25 10:06) Other Medications ?Medication ?Instructions ?Recorded ?Confirmed ?Type pantoprazole 40 mg tablet,delayed 40 mg PO DAILY 09/1802/09/25 History release tizanidine 4 mg capsule 8 mg PO QHS 09/18/20 5 History bupropion HCl 300 mg 24 hr tablet, 300 mg PO QDAY 02/1502/09/25 History extended release cyclobenzaprine 5 mg tablet 5 mg PO TID PRN 02/29/24 0 02/09/25 History duloxetine 60 mg capsule,delayed 60 mg PO QDAY 02/09/25 History release fexofenadine 180 mg tablet 180 mg PO QDAY 02/29/24 History gabapentin 100 mg tablet 600 mg PO TID 02/29/2402/09 History mirabegron 25 mg tablet,extended 25 mg PO QDAY 02/09/25 History release 24 hr (Myrbetriq) potassium chloride 20 mEq 40 meq PO DAILY 02/29/24 History tablet,extended release potassium chloride 20 mEq 20 meq PO BID 02/29/2402/09 History tablet,extended release(part/cryst) rimegepant 75 mg disintegrating 75 mg PO QDAY PRN 02/1502/09/25 History tablet (Nurtec ODT) sucralfate 1 gram tablet 1 g PO 4X/DAY 02/29/2402/09 History tamsulosin 0.4 mg capsule 0.4 mg PO QDAY 02/29/2401/17 History valsartan 160 mg tablet 160 mg PO QDAY 02/29/2401/17 History verapamil 120 mg tablet,extended 240 mg PO QHS 4 02/09/25 History release zonisamide 50 mg capsule 50 mg PO QHS 02/29/24 History PFSH Medical History Right rotator cuff tear Primary osteoarthritis, right shoulder Right shoulder pain Osteoarthritis of right knee Right knee pain Loose, teeth Hearing loss, right Alcohol abuse Mood disorder History of steroid therapy Chronic pain History of IBS GERD (gastroesophageal reflux disease) Hiatal hernia Non-smoker CPAP (continuous positive airway pressure) dependence Pain aggravated by walking Edema Irregular heart beat Hypertension Migraine headache Restless legs Injury of back Stroke/cerebrovascular accident Surgical History S/P rotator cuff repair Hx of cardiac catheterization Hx of colonoscopy History of esophagogastroduodenoscopy (EGD) Hx of vasectomy Hx of arthroscopic knee surgery Hx of tonsillectomy Hx of appendectomy Hx of shoulder surgery Social History household members: spouse and family Smoking Status: Former smoker alcohol intake: current alcohol intake frequency: holidays/special occasions only HPI RIGHT SHOULDER Details: This documentation accurately reflects the service provided and the decisions made by me, Dr. Fred Huber MD 02/09/25924. Part of today?s visit was documented by [ ], acting as scribe. TATE BALTAZAR is a 49 year old M here today for FU R shoulder MRI. Patient has surgery for in about a month. No acute changes but the patient has noticed a little bit more pain going down the shoulder to the outside of the arm as wellas some mild biceps cramping. There has been no injury or acute change had a prior biceps tenodesis back in 2019 no pop or change to the contour Supplemental Info [facility] [address] [place] [address] Upper Ext Joint Only(Routine) MR#: [id number] Acct: [id number] Name: TATE BALTAZAR Rep #: [id number] : 1975 M 49 From: Omega Russo MD PCP: Dr. Lanette Harkins, DO Status: REG CLI Study: Upper Ext Joint Only(Routine) Date of Exam: 11/15/24 Exam# [id number] Ordering Dr: Fred Huber MD PROCEDURE: UPPER EXT JOINT ONLY(ROUTINE) 11/15/2024 REASON FOR EXAM: PAIN, 2 PRIOR SURGERIES TECHNIQUE: T1, T2, PD, UPPER EXT JOINT ONLY(ROUTINE) Multiplanar and multisequence images were obtained without IV contrast administration. COMPARISON: October 25, 2024 x-ray FINDINGS: Bone Marrow: Suture anchors are noted in the humeral head consistent with prior rotator cuff repair. There is no bony contusion or occult fracture. AC joint: There is moderate AC joint hypertrophy without evidence of separation. There is a type 3 acromion with impingement configuration. Rotator cuff: There is no muscular atrophy. There is a full-thickness, 50% withtear of the distal supraspinatus without retraction. There is severe distal infraspinatus tendinopathy without full- thickness tear. There is severe distal subscapularis tendinopathy without full-thickness tear or retraction. The teres minor appearsintact. Labrum: There is a tear of the labrum from the 12 o'clock-2 o'clock position extending into the biceps tendon anchor. Biceps: The biceps tendon is absent from the biceps tendon groove with avulsion. Effusion: There is a trace joint effusion which extends into the subacromial subdeltoid bursa. MRI/Upper Ext Joint Only(Routine) IMPRESSION: Suture anchors are noted in the humeral head consistent with prior rotator cuff repair. There is moderate AC joint hypertrophy without evidence of separation. There is a type 3 acromion with impingement configuration. There is a full-thickness, 50% with tear of the distal supraspinatus without retraction. There is severe distal infraspinatus tendinopathy without full-thickness tear. There is severe distal subscapularis tendinopathy without full-thickness tear orretraction. There is a tear of the labrum from the 12 o'clock-2 o'clock position extending into the biceps tendon anchor. The biceps tendon is absent from the biceps tendon groove with avulsion. There is a trace joint effusion which extends into the subacromial subdeltoid bursa. Reading Location: [facility] independently reviewed the imaging. Concur with radiologist report. Coding Level of Care Code Off vis,est,level 3 Diagnoses S/P rotator cuff repair Z98.890 Right rotator cuff tear M75.101 Assessment and Plan Assessment and Plan (1) S/P rotator cuff repair: Status: Acute Plan: 49 M with R shoulder retear. The patient is already booked for surgery. There does not appear to be a change to the biceps tendon this appears to be some slight cramping suggest rest ice anti-inflammatories gentle range of motion strengthening as tolerated and will see the patient on the day of surgery. (2) Right rotator cuff tear: Status: Acute Ortho Exam General General: Yes no acute distress Neurologic: Yes alert and Yes oriented x3 Psychologic: Yes reasonable and appropriate Right Shoulder Skin/Wound: Yes CDI, No ecchymosis, No erythema and No swelling Testing: Positive Hawkin's, Neer's, TTP Biceps, AROM-External Rotation at side 0-60, empty can and belly press normal; Negative Speed's, TTP AC Joint, Drop Arm, cross arm or scapular winging SHOULDER: normal motor and sens to ax nerve, and MRU and AIN/PIN Active and passive forward elevation 170 degrees forward elevation strength is 4+. External rotation strength 5. No crepitus 02/09/25 1019 <Electronically signed by Fred cuellar MD> Date _ Fred Huber MD Cosigner Signature: Date (if applicable) CC: ~ [facility] [employer] Work Phone: Reason for referral (narrative)* Diagnostic Procedure Only (Routine) - New Request Specialty Diagnoses / Procedures Referred By Breanne t Referred To Contact XR IMAGING Diagnoses Chronic pain syndrome Procedures XR RIBS 2V AP/OBL LEFT RADEX RIBS UNILATERAL 2 VIEWS Jennifer Munroe MD [address] [place] [address] [place] [address] Referral ID Status Reason Start Date Expiration Date Visits Requested Visits Authorized [id number] New Request Auto-Generat ed Referral 12/03/2023 01/01/2025 1 1 * Diagnostic Procedure Only (Routine) - New Request Specialty Diagnoses / Procedures Referred By Contac t Referred To Contact XR IMAGING Diagnoses Chronic pain syndrome Procedures XR THORACIC LIMITED 2V AP/LAT RADEX SPINE THORACIC 2 VIEWS Jennifer Munroe MD [address] [place] [address] [place] [address] Referral ID Status Reason Start Date Expiration Date Visits Requested Visits Authorized [id number] New Request Auto-Generat ed Referral 12/03/2023 01/01/2025 1 1 * Diagnostic Procedure Only (Routine) - New Request Specialty Diagnoses / Procedures Referred By Contac t Referred To Contact XR IMAGING Diagnoses Chronic pain syndrome Procedures XR LUMBAR LIMITED 2V AP/LAT RADEX SPINE LUMBOSACRAL 2/3 VIEWS Jennifer Munroe MD [address] [place] [address] [place] [address] Referral ID Status Reason Start Date Expiration Date Visits Requested Visits Authorized [id number] New Request Auto-Generat ed Referral 12/03/2023 01/01/2025 1 1 [facility] for referral (narrative)* Diagnostic Procedure Only (Routine) - Closed Specialty Diagnoses / Procedures Referred By Contac t Referred To Contact XR IMAGING Diagnoses Chronic pain syndrome Procedures XR KNEE GENERAL 4V AP BOTH/PA BOTH/LAT/MERC RIGHT RADIOLOGIC EXAM KNEE COMPLETE 4/MORE VIEWS Rowan Boateng DO [address] [place] [address] [place] [address] Referral ID Status Reason Start Date Expiration Date V isits Requested Visits Authorized [id number] Closed Auto-Generate d Referral 04/21/2022 05/21/2023 1 1 [facility] for referral (narrative)No reason [facility] Narrative* Outpatient Procedure (Routine) - Closed Specialty Diagnoses / Procedures Referred By Contac t Referred To Contact [facility] Diagnoses Reflex sympathetic dystrophy Chronic pain syndrome Procedures EMG(NEURO/NI) NERVE CONDUCTION STUDIES 9-10 STUDIES Mor Edgar, THANG.COIL BUILDER [address] [place] [address] [facility] [address] [place] [address] Referral ID Status Reason Start Date Expiration Date V isits Requested Visits Authorized [id number] Closed Auto-Generate d Referral 05/20/2022 05/20/2023 1 1 [facility] for visit Narrative* Diagnostic Procedure Only (Routine) - Closed Specialty Diagnoses / Procedures Referred By Contac t Referred To Contact XR IMAGING Diagnoses Chronic pain syndrome Procedures XR THORACIC LIMITED 2V AP/LAT RADEX SPINE THORACIC 2 VIEWS Jennifer Munroe MD [address] [place] [address] Xr Imaging [facility] Referral ID Status Reason Start Date Expiration Date V isits Requested Visits Authorized [id number] Closed Auto-Generate d Referral 12/03/2023 01/01/2025 1 1 [facility] for visit Narrative* Diagnostic Procedure Only (Routine) - Closed Specialty Diagnoses / Procedures Referred By Contac t Referred To Contact XR IMAGING Diagnoses Chronic right shoulder pain Procedures XR SHOULDER GENERAL 3V OR MORE AP/TRUE AP/OTHER RIGHT RADEX SHOULDER COMPLETE MINIMUM 2 VIEWS Kisha Walters PA-C [address] [place] [address] [place] [address] Referral ID Status Reason Start Date Expiration Date V isits Requested Visits Authorized [id number] Closed Auto-Generate d Referral 08/18/2022 09/17/2023 1 [facility] Procedure Only (Routine) - Closed Specialty Diagnoses / Procedures Referred By Breanne t Referred To Contact XR IMAGING Diagnoses Chronic pain syndrome Procedures XR KNEE GENERAL 4V AP BOTH/PA BOTH/LAT/MERC RIGHT RADIOLOGIC EXAM KNEE COMPLETE 4/MORE VIEWS Rowan Boateng H, DO [address] [place] [address] [place] [address] Referral ID Status Reason Start Date Expiration Date V isits Requested Visits Authorized [id number] Closed Auto-Generate d Referral 04/21/2022 05/21/2023 1 1 [facility] Summary Purpose Family History Unknown Family Member Name Dates Details Alive and well: Mother Status:Active : Father Status:Active Denies Family history of mal ignant neoplasm of colon: Other(V16.0, Z80.0) Status: Advance Directives Documents on File Type Date Recorded 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 Advance Directive(s) 08/07/2021 11:16 PM Advance Directive(s) 05/20/2021 11:08 PM Advance Directive(s) 10/19/2017 9:35 AM Advance Directive(s) 10/19/2017 11:41 AM Advance Directive(s) 10/02/2015 10:00 AM Advance Directive Response Recorded Date/ Time Living Will No September 18, 2020 1: 26pm Power of Mechanical Engineering Advisor No September 18, 2020 1:26pm Documents on File Type Date Recorded 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 Advance Directive(s) 11/19/2021 9:57 PM Advance Directive(s) 08/07/2021 11:16 PM Advance Directive(s) 05/20/2021 11:08 PM Advance Directive(s) 10/19/2017 9:35 AM Advance Directive(s) 10/19/2017 11:41 AM Advance Directive(s) 10/02/2015 10:00 AM Date Activated Date Inactivated Comments 09/12/2023 9:10 PM 09/13/2023 6:18 PM Question Answer Comments DNR Order Discussed With: Patient Date Activated Date Inactivated Comments 09/12/2023 9:10 PM 09/13/2023 6:18 PM Question Answer Comments DNR Order Discussed With: Patient Chief Complaint and Reason for Visit Chief Complaint LEFT TESTI PAIN Chief Complaint Admit Date RIGHT KNEE July 19, 2024 10:3 1am RIGHT KNEE September 20, 2024 10:50a m RIGHT KNEE October 06, 2024 11:25 am RIGHT KNEE October 19, 2024 10:56 am RIGHT SHOULDER October 25, 2024 10:3 2am Room 2 October 25, 2024 10:3 7am Reason for Visit Admit Date Osteoarthritis of right knee July 19, 2024 10:31am Right knee pain July 19, 2024 10:3 1am Osteoarthritis of right knee September 20 10:50am Right knee pain September 20, 2024 10:50a m Osteoarthritis of right knee October 06 11:25am Right knee pain October 06, 2024 11:25 am Osteoarthritis of right knee October 19 10:56am Right knee pain October 19, 2024 10:56 am Right shoulder pain October 25, 2024 10:3 2am Reason for Visit Admit Date Osteoarthritis of right knee July 19, 2024 10:31am Right knee pain July 19, 2024 10:3 1am Osteoarthritis of right knee September 20 10:50am Right knee pain September 20, 2024 10:50a m Osteoarthritis of right knee October 06 11:25am Right knee pain October 06, 2024 11:25 am Osteoarthritis of right knee October 19 10:56am Right knee pain October 19, 2024 10:56 am Primary osteoarthritis, right shoulder J 2024 10:32am Right shoulder pain October 25, 2024 10:3 2am Chief Complaint Admit Date RIGHT KNEE July 19, 2024 10:3 1am RIGHT KNEE September 20, 2024 10:50a m RIGHT KNEE October 06, 2024 11:25 am RIGHT KNEE October 19, 2024 10:56 am RIGHT SHOULDER October 25, 2024 10:3 2am Room 2 October 25, 2024 10:3 7am RIGHT KNEE October 27, 2024 10:1 9am Reason for Visit Admit Date Osteoarthritis of right knee July 19, 2024 10:31am Right knee pain July 19, 2024 10:3 1am Osteoarthritis of right knee September 20 10:50am Right knee pain September 20, 2024 10:50a m Osteoarthritis of right knee October 06 11:25am Right knee pain October 06, 2024 11:25 am Osteoarthritis of right knee October 19 10:56am Right knee pain October 19, 2024 10:56 am Primary osteoarthritis, right shoulder J une 2024 10:32am Right shoulder pain October 25, 2024 10:3 2am Osteoarthritis of right knee October 27, 2024 10:19am Right knee pain October 27, 2024 10:1 9am Chief Complaint Admit Date RIGHT KNEE July 19, 2024 10:3 1am RIGHT KNEE September 20, 2024 10:50a m RIGHT KNEE October 06, 2024 11:25 am RIGHT KNEE October 19, 2024 10:56 am Reason for Visit Admit Date Osteoarthritis of right knee July 19, 2024 10:31am Right knee pain July 19, 2024 10:3 1am Osteoarthritis of right knee September 20 10:50am Right knee pain September 20, 2024 10:50a m Osteoarthritis of right knee October 06 11:25am Right knee pain October 06, 2024 11:25 am Osteoarthritis of right knee October 19 10:56am Right knee pain October 19, 2024 10:56 am Chief Complaint Admit Date RIGHT KNEE September 20, 2024 10:50a m RIGHT KNEE October 06, 2024 11:25 am RIGHT KNEE October 19, 2024 10:56 am RIGHT SHOULDER October 25, 2024 10:3 2am Room 2 October 25, 2024 10:3 7am RIGHT KNEE October 27, 2024 10:1 9am RT SHOULDER PAIN, 2 PRIOR SURGERIES November 15, 2024 12:57pm RIGHT SHOULDER November 21, 2024 11:23 am Reason for Visit Admit Date Osteoarthritis of right knee September 20 10:50am Right knee pain September 20, 2024 10:50a m Osteoarthritis of right knee October 06 11:25am Right knee pain October 06, 2024 11:25 am Osteoarthritis of right knee October 19 10:56am Right knee pain October 19, 2024 10:56 am Primary osteoarthritis, right shoulder J une 2024 10:32am Right shoulder pain October 25, 2024 10:3 2am Osteoarthritis of right knee October 27, 2024 10:19am Right knee pain October 27, 2024 10:1 9am Primary osteoarthritis, right shoulder J alexander 2024 11:23am Right rotator cuff tear November 21, 2024 1 1:23am Right shoulder pain November 21, 2024 11:23 am S/P rotator cuff repair November 21, 2024 1 1:23am Chief Complaint Admit Date RIGHT KNEE September 20, 2024 10:50a m RIGHT KNEE October 06, 2024 11:25 am RIGHT KNEE October 19, 2024 10:56 am RIGHT SHOULDER October 25, 2024 10:3 2am Room 2 October 25, 2024 10:3 7am RIGHT KNEE October 27, 2024 10:1 9am RT SHOULDER PAIN, 2 PRIOR SURGERIES November 15, 2024 12:57pm RIGHT SHOULDER November 21, 2024 11:23 am RIGHT KNEE December 05, 2024 9:58 am Room 4 December 05, 2024 10:3 0am Reason for Visit Admit Date Osteoarthritis of right knee September 20 10:50am Right knee pain September 20, 2024 10:50a m Osteoarthritis of right knee October 06 11:25am Right knee pain October 06, 2024 11:25 am Osteoarthritis of right knee October 19 10:56am Right knee pain October 19, 2024 10:56 am Primary osteoarthritis, right shoulder J une 2024 10:32am Right shoulder pain October 25, 2024 10:3 2am Osteoarthritis of right knee October 27, 2024 10:19am Right knee pain October 27, 2024 10:1 9am Primary osteoarthritis, right shoulder J alexander 2024 11:23am Right rotator cuff tear November 21, 2024 1 1:23am Right shoulder pain November 21, 2024 11:23 am S/P rotator cuff repair November 21, 2024 1 1:23am Osteoarthritis of right knee December 05, 2024 9:58am Chief Complaint Admit Date RIGHT KNEE October 19, 2024 10:56 am RIGHT SHOULDER October 25, 2024 10:3 2am Room 2 October 25, 2024 10:3 7am RIGHT KNEE October 27, 2024 10:1 9am RT SHOULDER PAIN, 2 PRIOR SURGERIES November 15, 2024 12:57pm RIGHT SHOULDER November 21, 2024 11:23 am RIGHT KNEE December 05, 2024 9:58 am Room 4 December 05, 2024 10:3 0am RIGHT SHOULDER February 09, 2025 9:54am Reason for Visit Admit Date Osteoarthritis of right knee October 19, 10:56am Right knee pain October 19, 2024 10:56 am Primary osteoarthritis, right shoulder J une 2024 10:32am Right shoulder pain October 25, 2024 10:3 2am Osteoarthritis of right knee October 27, 2024 10:19am Right knee pain October 27, 2024 10:1 9am Primary osteoarthritis, right shoulder J alexander 2024 11:23am Right rotator cuff tear November 21, 2024 1 1:23am Right shoulder pain November 21, 2024 11:23 am S/P rotator cuff repair November 21, 2024 1 1:23am Osteoarthritis of right knee December 05, 2024 9:58am Right rotator cuff tear February 09, 2025 9:54am S/P rotator cuff repair February 09, 2025 9:54am Reason for Referral Specialty Diagnoses / Procedures Referred By Breanne t Referred To Contact Orthopedics Diagnoses Arthropathies in other specified diseases classified elsewhere, right knee Procedures CONSULT PANEL TO ORTHOPAEDICS OFFICE/OUTPATIENT [facility] 60 MINUTES Jennifer Munroe MD [address] [address] Referral ID Status Reason Start Date Expiration Date Visits Requested Visits Authorized [id number] Authorized PCP Requested Referral 02/23/2024 02/22/2025 1 1 Specialty Diagnoses / Procedures Referred By Breanne loving Referred To Contact XR IMAGING Diagnoses Arthropathies in other specified diseases classified elsewhere, right knee Procedures XR KNEE GENERAL 4V AP BOTH/PA BOTH/LAT/MERC RIGHT RADIOLOGIC EXAM KNEE COMPLETE 4/MORE VIEWS Jeninfer Munroe MD [address] [place] [address] [place] [address] Referral ID Status Reason Start Date Expiration Date Visits Requested Visits Authorized [id number] New Request Auto-Generat ed Referral 02/23/2024 03/24/2025 1 1 Specialty Diagnoses / Procedures Referred By Breanne t Referred To Contact Diagnoses Primary osteoarthritis of right knee Intervertebral disc disorder with radiculopathy of lumbar region RSD (reflex sympathetic dystrophy) DDD (degenerative disc disease), lumbar Other chronic pain Radiculopathy, lumbar region Myofascial pain syndrome Chronic right shoulder pain Pain in right elbow Procedures CONSULT TO PAIN MGT Barr, Chantell Fontanez APRN.COIL BUILDER [address] [place] [address] Rowan Boateng, DO [address] [place] [address] Referral ID Status Reason Start Date Expiration Date Visits Requested Visits Authorized [id number] Ref Not Required PCP Requested Referral 02/03/2024 02/02/2025 1 1 Specialty Diagnoses / Procedures Referred By Contac t Referred To Contact Diagnoses DDD (degenerative disc disease), lumbar Intervertebral disc disorder with radiculopathy of lumbar region Procedures CONSULT TO PSYCHIATRY OFFICE/OUTPATIENT [facility] MDM 60-74 MINUTES Rowan Boateng, DO [address] [place] [address] Referral ID Status Reason Start Date Expiration Date Visits Requested Visits Authorized [id number] Pending Review PCP Requested Referral 02/25/2024 1 1 Specialty Diagnoses / Procedures Referred By Contac t Referred To Contact Diagnoses Chronic pain syndrome Other chronic pain RSD (reflex sympathetic dystrophy) FDC (current) use of 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 Radiculopathy, lumbar region Primary osteoarthritis of right knee Myofascial pain syndrome Procedures CONSULT TO PSYCHIATRY Rowan Boateng, DO [address] [place] [address] Rod oDan, PhD [address] [place] [address] Referral ID Status Reason Start Date Expiration Date Visits Requested Visits Authorized [id number] Ref Not Required PCP Requested Referral 02/17/2023 02/17/2024 1 1 Specialty Diagnoses / Procedures Referred By Contac t Referred To Contact [facility] Diagnoses S/P rotator cuff repair Procedures CONSULT TO PHYSICAL THERAPY PHYSICAL THERAPY EVALUATION HIGH COMPLEX 45 MINS Kisha Walters PA-C [address] [place] [address] [facility] [address] [address] Referral ID Status Reason Start Date Expiration Date Visits Requested Visits Authorized [id number] Pending Review Auto-Generat ed Referral 01/16/2023 11/19/2023 1 1 Specialty Diagnoses / Procedures Referred By Contac t Referred To Contact MR IMAGING Diagnoses Right shoulder pain, unspecified chronicity Procedures MRI SHOULDER WO IVCON RIGHT MRI ANY JT UPPER EXTREMITY W/O CONTRAST Mal Robbins MD [address] [place] [address] Mr Imaging Referral ID Status Reason Start Date Expiration Date Visits Requested Visits Authorized [id number] Authorized Auto-Generat ed Referral 10/17/2022 12/01/2022 1 1 Specialty Diagnoses / Procedures Referred By Contac t Referred To Contact [facility] Diagnoses Right shoulder pain, unspecified chronicity Procedures CONSULT TO PHYSICAL THERAPY PHYSICAL THERAPY EVALUATION [facility] COMPLEX 45 MINS Kisha Walters PA-C [address] [address] [facility] [address] [address] Referral ID Status Reason Start Date Expiration Date Visits Requested Visits Authorized [id number] Pending Review Auto-Generat ed Referral 09/05/2022 09/05/2023 1 1 Specialty Diagnoses / Procedures Referred By Contac t Referred To Contact Orthopedics Diagnoses Chronic right shoulder pain Procedures CONSULT PANEL TO ORTHOPAEDICS OFFICE/OUTPATIENT [facility] MDM 60-74 MINUTES Melvin Larsen MD [address] [place] [address] Referral ID Status Reason Start Date Expiration Date Visits Requested Visits Authorized [id number] Authorized PCP Requested Referral 08/15/2022 08/15/2023 1 1 Specialty Diagnoses / Procedures Referred By Contac t Referred To Contact XR IMAGING Diagnoses Chronic right shoulder pain Procedures XR SHOULDER GENERAL 3V OR MORE AP/TRUE AP/OTHER RIGHT RADEX SHOULDER COMPLETE MINIMUM 2 VIEWS Melvin Larsen MD [address] [place] [address] Xr Imaging Referral ID Status Reason Start Date Expiration Date Visits Requested Visits Authorized [id number] Pending Review Auto-Generat ed Referral 08/15/2022 09/14/2023 1 1 Specialty Diagnoses / Procedures Referred By Contac t Referred To Contact [facility] Diagnoses Chronic pain of right knee Right leg weakness Procedures CONSULT TO PHYSICAL MEDICINE AND REHABILITATION OFFICE/OUTPATIENT [facility] 60-74 MINUTES Iesha Cordero PA-C [address] [place] [address] [facility] [address] [address] Referral ID Status Reason Start Date Expiration Date Visits Requested Visits Authorized [id number] Authorized PCP Requested Referral Auto-Generate d Referral 07/24/2022 07/24/2023 1 1 Specialty Diagnoses / Procedures Referred By Contac t Referred To Contact MR IMAGING Diagnoses Chronic pain of right knee Procedures MRI KNEE WO IVCON RT MRI ANY JT LOWER EXTREM W/O CONTRAST MATRL Iesha Cordero PA-C [address] [place] [address] Mr Imaging Referral ID Status Reason Start Date Expiration Date Visits Requested Visits Authorized [id number] Authorized Auto-Generat ed Referral 05/23/2022 07/07/2022 1 1 Specialty Diagnoses / Procedures Referred By Contac t Referred To Contact Orthopedics Diagnoses Primary osteoarthritis of right knee Procedures CONSULT PANEL TO ORTHOPAEDICS OFFICE/OUTPATIENT [facility] 60-74 MINUTES Rowan Boateng, DO [address] [place] [address] Bentley Galvan DO [address] [place] [address] Referral ID Status Reason Start Date Expiration Date Visits Requested Visits Authorized [id number] Authorized PCP Requested Referral 04/21/2022 04/21/2023 1 1 Specialty Diagnoses / Procedures Referred By Contac t Referred To Contact XR IMAGING Diagnoses Chronic pain syndrome Procedures XR KNEE GENERAL 4V AP BOTH/PA BOTH/LAT/MERC RIGHT RADIOLOGIC EXAM KNEE COMPLETE 4/MORE VIEWS Rowan Boateng H, DO [address] [place] [address] Xr Imaging Referral ID Status Reason Start Date Expiration Date Visits Requested Visits Authorized [id number] Authorized Auto-Generat ed Referral 04/21/2022 05/21/2023 1 1 Additional Source Comments (unrecognized sect ion and content) No Status Records FoundNo Status Records FoundNo Status Records FoundNo Status Records FoundNo Status Records FoundNo Status Records FoundNo Status Records FoundNo Status Records FoundNo Status Records FoundNo Status Records FoundNo Status Records FoundNo Status Records FoundNo Status Records FoundNo Status Records FoundNo Status Records Found INFORMATION SOURCE (unrecogn ized section and content) DATE CREATED AUTHOR 11/04/2017 [facility] DATE CREATED AUTHOR AUTHOR'S ORGANIZ ATION 10/09/2018 [facility] [employer] [facility] DATE CREATED AUTHOR AUTHOR'S ORGANIZ ATION 06/10/2020 [facility] [employer] [facility] DATE CREATED AUTHOR AUTHOR'S ORGANIZ ATION 08/22/2020 [facility] DATE CREATED AUTHOR AUTHOR'S ORGANIZ ATION 10/16/2021 [facility] [address] DATE CREATED AUTHOR AUTHOR'S ORGANIZ ATION 09/10/2022 [facility] DATE CREATED AUTHOR AUTHOR'S ORGANIZ ATION 08/21/2023 [facility] DATE CREATED AUTHOR AUTHOR'S ORGANIZ ATION 11/11/2023 [facility] [employer] ([place]) DATE CREATED AUTHOR AUTHOR'S ORGANIZ ATION 11/14/2023 [facility] DATE CREATED AUTHOR AUTHOR'S ORGANIZ ATION 01/26/2024 [facility] DATE CREATED AUTHOR AUTHOR'S ORGANIZ ATION 04/14/2024 [facility] [employer] [facility] DATE CREATED AUTHOR AUTHOR'S ORGANIZ ATION 12/02/2024 [facility] DATE CREATED AUTHOR AUTHOR'S ORGANIZ ATION 12/06/2024 [facility] DATE CREATED AUTHOR AUTHOR'S ORGANIZ ATION 01/28/2025 [facility] DATE CREATED AUTHOR AUTHOR'S ORGANLELE ATION 02/10/2025 [facility] Source Comments (unrecognize d section and content) In the event this informatio n is protected by the Federal Confidentiality of Alcohol and Drug Abuse Patient Records regulations: The Federal rules restrict any use of the information to criminally investigate or prosecute any alcohol or drug abuse patient.[facility] the event this information is protected by the Federal Confidentiality of Alcohol and Drug Abuse Patient Records regulations: The Federal rules restrict any use of the information to criminally investigate or prosecute any alcohol or drug abuse patient.[facility] the event this information is protected by the Federal Confidentiality of Alcohol and Drug Abuse Patient Records regulations: The Federal rules restrict any use of the information to criminally investigate or prosecute any alcohol or drug abuse patient.[facility] the event this information is protected by the Federal Confidentiality of Alcohol and Drug Abuse Patient Records regulations: The Federal rules restrict any use of the information to criminally investigate or prosecute any alcohol or drug abuse patient.[facility] the event this information is protected by the Federal Confidentiality of Alcohol and Drug Abuse Patient Records regulations: The Federal rules restrict any use of the information to criminally investigate or prosecute any alcohol or drug abuse patient.[facility] the event this information is protected by the Federal Confidentiality of Alcohol and Drug Abuse Patient Records regulations: The Federal rules restrict any use of the information to criminally investigate or prosecute any alcohol or drug abuse patient.[facility] the event this information is protected by the Federal Confidentiality of Alcohol and Drug Abuse Patient Records regulations: The Federal rules restrict any use of the information to criminally investigate or prosecute any alcohol or drug abuse patient.[facility] the event this information is protected by the Federal Confidentiality of Alcohol and Drug Abuse Patient Records regulations: The Federal rules restrict any use of the information to criminally investigate or prosecute any alcohol or drug abuse patient.[facility] the event this information is protected by the Federal Confidentiality of Alcohol and Drug Abuse Patient Records regulations: The Federal rules restrict any use of the information to criminally investigate or prosecute any alcohol or drug abuse patient.[facility] the event this information is protected by the Federal Confidentiality of Alcohol and Drug Abuse Patient Records regulations: The Federal rules restrict any use of the information to criminally investigate or prosecute any alcohol or drug abuse patient.[facility] the event this information is protected by the Federal Confidentiality of Alcohol and Drug Abuse Patient Records regulations: The Federal rules restrict any use of the information to criminally investigate or prosecute any alcohol or drug abuse patient.[facility] the event this information is protected by the Federal Confidentiality of Alcohol and Drug Abuse Patient Records regulations: The Federal rules restrict any use of the information to criminally investigate or prosecute any alcohol or drug abuse patient.[facility] the event this information is protected by the Federal Confidentiality of Alcohol and Drug Abuse Patient Records regulations: The Federal rules restrict any use of the information to criminally investigate or prosecute any alcohol or drug abuse patient.[facility]In the event this information is protected by the Federal Confidentiality of Alcohol and Drug Abuse Patient Records regulations: The Federal rules restrict any use of the information to criminally investigate or prosecute any alcohol or drug abuse patient.[facility]In the event this information is protected by the Federal Confidentiality of Alcohol and Drug Abuse Patient Records regulations: The Federal rules restrict any use of the information to criminally investigate or prosecute any alcohol or drug abuse patient.[facility]In the event this information is protected by the Federal Confidentiality of Alcohol and Drug Abuse Patient Records regulations: The Federal rules restrict any use of the information to criminally investigate or prosecute any alcohol or drug abuse patient.[facility]In the event this information is protected by the Federal Confidentiality of Alcohol and Drug Abuse Patient Records regulations: The Federal rules restrict any use of the information to criminally investigate or prosecute any alcohol or drug abuse patient.[facility]In the event this information is protected by the Federal Confidentiality of Alcohol and Drug Abuse Patient Records regulations: The Federal rules restrict any use of the information to criminally investigate or prosecute any alcohol or drug abuse patient.[facility]In the event this information is protected by the Federal Confidentiality of Alcohol and Drug Abuse Patient Records regulations: The Federal rules restrict any use of the information to criminally investigate or prosecute any alcohol or drug abuse patient.[facility]In the event this information is protected by the Federal Confidentiality of Alcohol and Drug Abuse Patient Records regulations: The Federal rules restrict any use of the information to criminally investigate or prosecute any alcohol or drug abuse patient.[facility]In the event this information is protected by the Federal Confidentiality of Alcohol and Drug Abuse Patient Records regulations: The Federal rules restrict any use of the information to criminally investigate or prosecute any alcohol or drug abuse patient.[facility]In the event this information is protected by the Federal Confidentiality of Alcohol and Drug Abuse Patient Records regulations: The Federal rules restrict any use of the information to criminally investigate or prosecute any alcohol or drug abuse patient.[facility]In the event this information is protected by the Federal Confidentiality of Alcohol and Drug Abuse Patient Records regulations: The Federal rules restrict any use of the information to criminally investigate or prosecute any alcohol or drug abuse patient.[facility]In the event this information is protected by the Federal Confidentiality of Alcohol and Drug Abuse Patient Records regulations: The Federal rules restrict any use of the information to criminally investigate or prosecute any alcohol or drug abuse patient.[facility]In the event this information is protected by the Federal Confidentiality of Alcohol and Drug Abuse Patient Records regulations: The Federal rules restrict any use of the information to criminally investigate or prosecute any alcohol or drug abuse patient.[facility]In the event this information is protected by the Federal Confidentiality of Alcohol and Drug Abuse Patient Records regulations: The Federal rules restrict any use of the information to criminally investigate or prosecute any alcohol or drug abuse patient.[facility]In the event this information is protected by the Federal Confidentiality of Alcohol and Drug Abuse Patient Records regulations: The Federal rules restrict any use of the information to criminally investigate or prosecute any alcohol or drug abuse patient.[facility]In the event this information is protected by the Federal Confidentiality of Alcohol and Drug Abuse Patient Records regulations: The Federal rules restrict any use of the information to criminally investigate or prosecute any alcohol or drug abuse patient.[facility]In the event this information is protected by the Federal Confidentiality of Alcohol and Drug Abuse Patient Records regulations: The Federal rules restrict any use of the information to criminally investigate or prosecute any alcohol or drug abuse patient.[facility]In the event this information is protected by the Federal Confidentiality of Alcohol and Drug Abuse Patient Records regulations: The Federal rules restrict any use of the information to criminally investigate or prosecute any alcohol or drug abuse patient.[facility]In the event this information is protected by the Federal Confidentiality of Alcohol and Drug Abuse Patient Records regulations: The Federal rules restrict any use of the information to criminally investigate or prosecute any alcohol or drug abuse patient.[facility]In the event this information is protected by the Federal Confidentiality of Alcohol and Drug Abuse Patient Records regulations: The Federal rules restrict any use of the information to criminally investigate or prosecute any alcohol or drug abuse patient.[facility]In the event this information is protected by the Federal Confidentiality of Alcohol and Drug Abuse Patient Records regulations: The Federal rules restrict any use of the information to criminally investigate or prosecute any alcohol or drug abuse patient.[facility]In the event this information is protected by the Federal Confidentiality of Alcohol and Drug Abuse Patient Records regulations: The Federal rules restrict any use of the information to criminally investigate or prosecute any alcohol or drug abuse patient.[facility]In the event this information is protected by the Federal Confidentiality of Alcohol and Drug Abuse Patient Records regulations: The Federal rules restrict any use of the information to criminally investigate or prosecute any alcohol or drug abuse patient.[facility]In the event this information is protected by the Federal Confidentiality of Alcohol and Drug Abuse Patient Records regulations: The Federal rules restrict any use of the information to criminally investigate or prosecute any alcohol or drug abuse patient.[facility]In the event this information is protected by the Federal Confidentiality of Alcohol and Drug Abuse Patient Records regulations: The Federal rules restrict any use of the information to criminally investigate or prosecute any alcohol or drug abuse patient.[facility]In the event this information is protected by the Federal Confidentiality of Alcohol and Drug Abuse Patient Records regulations: The Federal rules restrict any use of the information to criminally investigate or prosecute any alcohol or drug abuse patient.[facility]In the event this information is protected by the Federal Confidentiality of Alcohol and Drug Abuse Patient Records regulations: The Federal rules restrict any use of the information to criminally investigate or prosecute any alcohol or drug abuse patient.[facility]In the event this information is protected by the Federal Confidentiality of Alcohol and Drug Abuse Patient Records regulations: The Federal rules restrict any use of the information to criminally investigate or prosecute any alcohol or drug abuse patient.[facility]In the event this information is protected by the Federal Confidentiality of Alcohol and Drug Abuse Patient Records regulations: The Federal rules restrict any use of the information to criminally investigate or prosecute any alcohol or drug abuse patient.[facility]In the event this information is protected by the Federal Confidentiality of Alcohol and Drug Abuse Patient Records regulations: The Federal rules restrict any use of the information to criminally investigate or prosecute any alcohol or drug abuse patient.[facility]In the event this information is protected by the Federal Confidentiality of Alcohol and Drug Abuse Patient Records regulations: The Federal rules restrict any use of the information to criminally investigate or prosecute any alcohol or drug abuse patient.[facility]In the event this information is protected by the Federal Confidentiality of Alcohol and Drug Abuse Patient Records regulations: The Federal rules restrict any use of the information to criminally investigate or prosecute any alcohol or drug abuse patient.[facility]In the event this information is protected by the Federal Confidentiality of Alcohol and Drug Abuse Patient Records regulations: The Federal rules restrict any use of the information to criminally investigate or prosecute any alcohol or drug abuse patient.[facility]In the event this information is protected by the Federal Confidentiality of Alcohol and Drug Abuse Patient Records regulations: The Federal rules restrict any use of the information to criminally investigate or prosecute any alcohol or drug abuse patient.[facility]In the event this information is protected by the Federal Confidentiality of Alcohol and Drug Abuse Patient Records regulations: The Federal rules restrict any use of the information to criminally investigate or prosecute any alcohol or drug abuse patient.[facility]In the event this information is protected by the Federal Confidentiality of Alcohol and Drug Abuse Patient Records regulations: The Federal rules restrict any use of the information to criminally investigate or prosecute any alcohol or drug abuse patient.[facility]In the event this information is protected by the Federal Confidentiality of Alcohol and Drug Abuse Patient Records regulations: The Federal rules restrict any use of the information to criminally investigate or prosecute any alcohol or drug abuse patient.[facility]In the event this information is protected by the Federal Confidentiality of Alcohol and Drug Abuse Patient Records regulations: The Federal rules restrict any use of the information to criminally investigate or prosecute any alcohol or drug abuse patient.[facility]In the event this information is protected by the Federal Confidentiality of Alcohol and Drug Abuse Patient Records regulations: The Federal rules restrict any use of the information to criminally investigate or prosecute any alcohol or drug abuse patient.[facility]In the event this information is protected by the Federal Confidentiality of Alcohol and Drug Abuse Patient Records regulations: The Federal rules restrict any use of the information to criminally investigate or prosecute any alcohol or drug abuse patient.[facility]In the event this information is protected by the Federal Confidentiality of Alcohol and Drug Abuse Patient Records regulations: The Federal rules restrict any use of the information to criminally investigate or prosecute any alcohol or drug abuse patient.[facility]In the event this information is protected by the Federal Confidentiality of Alcohol and Drug Abuse Patient Records regulations: The Federal rules restrict any use of the information to criminally investigate or prosecute any alcohol or drug abuse patient.[facility]In the event this information is protected by the Federal Confidentiality of Alcohol and Drug Abuse Patient Records regulations: The Federal rules restrict any use of the information to criminally investigate or prosecute any alcohol or drug abuse patient.[facility]In the event this information is protected by the Federal Confidentiality of Alcohol and Drug Abuse Patient Records regulations: The Federal rules restrict any use of the information to criminally investigate or prosecute any alcohol or drug abuse patient.[facility]In the event this information is protected by the Federal Confidentiality of Alcohol and Drug Abuse Patient Records regulations: The Federal rules restrict any use of the information to criminally investigate or prosecute any alcohol or drug abuse patient.[facility]In the event this information is protected by the Federal Confidentiality of Alcohol and Drug Abuse Patient Records regulations: The Federal rules restrict any use of the information to criminally investigate or prosecute any alcohol or drug abuse patient.[facility]In the event this information is protected by the Federal Confidentiality of Alcohol and Drug Abuse Patient Records regulations: The Federal rules restrict any use of the information to criminally investigate or prosecute any alcohol or drug abuse patient.[facility]In the event this information is protected by the Federal Confidentiality of Alcohol and Drug Abuse Patient Records regulations: The Federal rules restrict any use of the information to criminally investigate or prosecute any alcohol or drug abuse patient.[facility]In the event this information is protected by the Federal Confidentiality of Alcohol and Drug Abuse Patient Records regulations: The Federal rules restrict any use of the information to criminally investigate or prosecute any alcohol or drug abuse patient.[facility]In the event this information is protected by the Federal Confidentiality of Alcohol and Drug Abuse Patient Records regulations: The Federal rules restrict any use of the information to criminally investigate or prosecute any alcohol or drug abuse patient.[facility] the event this information is protected by the Federal Confidentiality of Alcohol and Drug Abuse Patient Records regulations: The Federal rules restrict any use of the information to criminally investigate or prosecute any alcohol or drug abuse patient.[facility]In the event this information is protected by the Federal Confidentiality of Alcohol and Drug Abuse Patient Records regulations: The Federal rules restrict any use of the information to criminally investigate or prosecute any alcohol or drug abuse patient.[facility]In the event this information is protected by the Federal Confidentiality of Alcohol and Drug Abuse Patient Records regulations: The Federal rules restrict any use of the information to criminally investigate or prosecute any alcohol or drug abuse patient.[facility]In the event this information is protected by the Federal Confidentiality of Alcohol and Drug Abuse Patient Records regulations: The Federal rules restrict any use of the information to criminally investigate or prosecute any alcohol or drug abuse patient.[facility]In the event this information is protected by the Federal Confidentiality of Alcohol and Drug Abuse Patient Records regulations: The Federal rules restrict any use of the information to criminally investigate or prosecute any alcohol or drug abuse patient.[facility]In the event this information is protected by the Federal Confidentiality of Alcohol and Drug Abuse Patient Records regulations: The Federal rules restrict any use of the information to criminally investigate or prosecute any alcohol or drug abuse patient.[facility]In the event this information is protected by the Federal Confidentiality of Alcohol and Drug Abuse Patient Records regulations: The Federal rules restrict any use of the information to criminally investigate or prosecute any alcohol or drug abuse patient.[facility]In the event this information is protected by the Federal Confidentiality of Alcohol and Drug Abuse Patient Records regulations: The Federal rules restrict any use of the information to criminally investigate or prosecute any alcohol or drug abuse patient.[facility]In the event this information is protected by the Federal Confidentiality of Alcohol and Drug Abuse Patient Records regulations: The Federal rules restrict any use of the information to criminally investigate or prosecute any alcohol or drug abuse patient.[facility]In the event this information is protected by the Federal Confidentiality of Alcohol and Drug Abuse Patient Records regulations: The Federal rules restrict any use of the information to criminally investigate or prosecute any alcohol or drug abuse patient.[facility]In the event this information is protected by the Federal Confidentiality of Alcohol and Drug Abuse Patient Records regulations: The Federal rules restrict any use of the information to criminally investigate or prosecute any alcohol or drug abuse patient.[facility]In the event this information is protected by the Federal Confidentiality of Alcohol and Drug Abuse Patient Records regulations: The Federal rules restrict any use of the information to criminally investigate or prosecute any alcohol or drug abuse patient.[facility]In the event this information is protected by the Federal Confidentiality of Alcohol and Drug Abuse Patient Records regulations: The Federal rules restrict any use of the information to criminally investigate or prosecute any alcohol or drug abuse patient.[facility]In the event this information is protected by the Federal Confidentiality of Alcohol and Drug Abuse Patient Records regulations: The Federal rules restrict any use of the information to criminally investigate or prosecute any alcohol or drug abuse patient.[facility]In the event this information is protected by the Federal Confidentiality of Alcohol and Drug Abuse Patient Records regulations: The Federal rules restrict any use of the information to criminally investigate or prosecute any alcohol or drug abuse patient.[facility]In the event this information is protected by the Federal Confidentiality of Alcohol and Drug Abuse Patient Records regulations: The Federal rules restrict any use of the information to criminally investigate or prosecute any alcohol or drug abuse patient.[facility]In the event this information is protected by the Federal Confidentiality of Alcohol and Drug Abuse Patient Records regulations: The Federal rules restrict any use of the information to criminally investigate or prosecute any alcohol or drug abuse patient.[facility]In the event this information is protected by the Federal Confidentiality of Alcohol and Drug Abuse Patient Records regulations: The Federal rules restrict any use of the information to criminally investigate or prosecute any alcohol or drug abuse patient.[facility]In the event this information is protected by the Federal Confidentiality of Alcohol and Drug Abuse Patient Records regulations: The Federal rules restrict any use of the information to criminally investigate or prosecute any alcohol or drug abuse patient.[facility]In the event this information is protected by the Federal Confidentiality of Alcohol and Drug Abuse Patient Records regulations: The Federal rules restrict any use of the information to criminally investigate or prosecute any alcohol or drug abuse patient.[facility]In the event this information is protected by the Federal Confidentiality of Alcohol and Drug Abuse Patient Records regulations: The Federal rules restrict any use of the information to criminally investigate or prosecute any alcohol or drug abuse patient.[facility]In the event this information is protected by the Federal Confidentiality of Alcohol and Drug Abuse Patient Records regulations: The Federal rules restrict any use of the information to criminally investigate or prosecute any alcohol or drug abuse patient.[facility]In the event this information is protected by the Federal Confidentiality of Alcohol and Drug Abuse Patient Records regulations: The Federal rules restrict any use of the information to criminally investigate or prosecute any alcohol or drug abuse patient.[facility]In the event this information is protected by the Federal Confidentiality of Alcohol and Drug Abuse Patient Records regulations: The Federal rules restrict any use of the information to criminally investigate or prosecute any alcohol or drug abuse patient.[facility]In the event this information is protected by the Federal Confidentiality of Alcohol and Drug Abuse Patient Records regulations: The Federal rules restrict any use of the information to criminally investigate or prosecute any alcohol or drug abuse patient.[facility]In the event this information is protected by the Federal Confidentiality of Alcohol and Drug Abuse Patient Records regulations: The Federal rules restrict any use of the information to criminally investigate or prosecute any alcohol or drug abuse patient.[facility]In the event this information is protected by the Federal Confidentiality of Alcohol and Drug Abuse Patient Records regulations: The Federal rules restrict any use of the information to criminally investigate or prosecute any alcohol or drug abuse patient.[facility]In the event this information is protected by the Federal Confidentiality of Alcohol and Drug Abuse Patient Records regulations: The Federal rules restrict any use of the information to criminally investigate or prosecute any alcohol or drug abuse patient.[facility]In the event this information is protected by the Federal Confidentiality of Alcohol and Drug Abuse Patient Records regulations: The Federal rules restrict any use of the information to criminally investigate or prosecute any alcohol or drug abuse patient.[facility]In the event this information is protected by the Federal Confidentiality of Alcohol and Drug Abuse Patient Records regulations: The Federal rules restrict any use of the information to criminally investigate or prosecute any alcohol or drug abuse patient.[facility]In the event this information is protected by the Federal Confidentiality of Alcohol and Drug Abuse Patient Records regulations: The Federal rules restrict any use of the information to criminally investigate or prosecute any alcohol or drug abuse patient.[facility]In the event this information is protected by the Federal Confidentiality of Alcohol and Drug Abuse Patient Records regulations: The Federal rules restrict any use of the information to criminally investigate or prosecute any alcohol or drug abuse patient.[facility]In the event this information is protected by the Federal Confidentiality of Alcohol and Drug Abuse Patient Records regulations: The Federal rules restrict any use of the information to criminally investigate or prosecute any alcohol or drug abuse patient.[facility]In the event this information is protected by the Federal Confidentiality of Alcohol and Drug Abuse Patient Records regulations: The Federal rules restrict any use of the information to criminally investigate or prosecute any alcohol or drug abuse patient.[facility]In the event this information is protected by the Federal Confidentiality of Alcohol and Drug Abuse Patient Records regulations: The Federal rules restrict any use of the information to criminally investigate or prosecute any alcohol or drug abuse patient.[facility]In the event this information is protected by the Federal Confidentiality of Alcohol and Drug Abuse Patient Records regulations: The Federal rules restrict any use of the information to criminally investigate or prosecute any alcohol or drug abuse patient.[facility] the event this information is protected by the Federal Confidentiality of Alcohol and Drug Abuse Patient Records regulations: The Federal rules restrict any use of the information to criminally investigate or prosecute any alcohol or drug abuse patient.[facility] the event this information is protected by the Federal Confidentiality of Alcohol and Drug Abuse Patient Records regulations: The Federal rules restrict any use of the information to criminally investigate or prosecute any alcohol or drug abuse patient.[facility] the event this information is protected by the Federal Confidentiality of Alcohol and Drug Abuse Patient Records regulations: The Federal rules restrict any use of the information to criminally investigate or prosecute any alcohol or drug abuse patient.[facility] the event this information is protected by the Federal Confidentiality of Alcohol and Drug Abuse Patient Records regulations: The Federal rules restrict any use of the information to criminally investigate or prosecute any alcohol or drug abuse patient.[facility]In the event this information is protected by the Federal Confidentiality of Alcohol and Drug Abuse Patient Records regulations: The Federal rules restrict any use of the information to criminally investigate or prosecute any alcohol or drug abuse patient.[facility] Care Teams (unrecognized sec tion and content) Cat Operator Relationship Specialty Start Date End Date Rissa Lanette Syed PCP - General Family Practice 08/30/10 Cat Operator Relationship Specialty Start Date End Date Lanette Harkins PCP - General Family Practice 08/30/10 Cat Operator Relationship Specialty Start Date End Date RissaLanette PCP - General Family Practice 08/30/10 Cat Operator Relationship Specialty Start Date End Date RissaLanette PCP - General Family Practice 08/30/10 Cat Operator Relationship Specialty Start Date End Date RissaLanette PCP - General Family Practice 08/30/10 Cat Operator Relationship Specialty Start Date End Date Lanette Harkins PCP - General Family Practice 08/30/10 Cat Operator Relationship Specialty Start Date End Date Lanette Harkins PCP - General Family Medicine 08/30/10 Cat Operator Relationship Specialty Start Date End Date Lanette Harkins PCP - General Family Medicine 08/30/10 Cat Operator Relationship Specialty Start Date End Date Lanette Harkins PCP - General Family Medicine 08/30/10 Cat Operator Relationship Specialty Start Date End Date Lanette Harkins PCP - General Family Medicine 08/30/10 Cat Operator Relationship Specialty Start Date End Date Lanette Harkins DO PCP - General Family Medicine 08/30/10 Cat Operator Relationship Specialty Start Date End Date Lanette Harkins DO PCP - General Family Medicine 08/30/10 Cat Operator Relationship Specialty Start Date End Date Lanette Harkins DO PCP - General Family Medicine 08/30/10 Cat Operator Relationship Specialty Start Date End Date Lanette Harkins DO PCP - General Family Medicine 08/30/10 Cat Operator Relationship Specialty Start Date End Date Lanette Harkins DO PCP - General Family Medicine 08/30/10 Cat Operator Relationship Specialty Start Date End Date Lanette Harkins DO PCP - General Family Medicine 08/30/10 Cat Operator Relationship Specialty Start Date End Date Lanette Harkins DO PCP - General Family Medicine 08/30/10 Cat Operator Relationship Specialty Start Date End Date Lanette Harkins DO PCP - General Family Medicine 08/30/10 Cat Operator Relationship Specialty Start Date End Date Lanette Harkins DO PCP - General Family Medicine 08/30/10 Cat Operator Relationship Specialty Start Date End Date Lanette Harkins DO PCP - General Family Medicine 08/30/10 Cat Operator Relationship Specialty Start Date End Date Lanette Harkins DO PCP - General Family Medicine 08/30/10 Cat Operator Relationship Specialty Start Date End Date Lanette Harkins DO PCP - General Family Medicine 08/30/10 Cat Operator Relationship Specialty Start Date End Date Lanette Harkins DO PCP - General Family Medicine 08/30/10 Cat Operator Relationship Specialty Start Date End Date Lanette Harkins DO PCP - General Family Medicine 08/30/10 Cat Operator Relationship Specialty Start Date End Date Rissa Lanette Lynch PCP - General Family Medicine 08/30/10 Cat Operator Relationship Specialty Start Date End Date RissaLanette, DO [address] [place] [address] PCP - General Family Medicine 08/25/22 Cat Operator Relationship Specialty Start Date End Date Rissa Lanette Lynch, DO [address] [place] [address] PCP - General Family Medicine 08/29/22 Cat Operator Relationship Specialty Start Date End Date Rissa Lanette Lynch, DO [address] [place] [address] PCP - General Family Medicine 08/25/22 Cat Operator Relationship Specialty Start Date End Date Rissa Lanette Lynch, DO [address] [place] [address] PCP - General Family Medicine 08/25/22 Cat Operator Relationship Specialty Start Date End Date Rissa Lanette Lynch, [address] [place] [address] PCP - General Family Medicine 08/25/22 Cat Operator Relationship Specialty Start Date End Date Rissa Lanette Lynch, DO [address] [place] [address] PCP - General Family Medicine 08/25/22 Cat Operator Relationship Specialty Start Date End Date Rissa Lanette Lynch, [address] [place] [address] PCP - General Family Medicine 08/25/22 Cat Operator Relationship Specialty Start Date End Date Rissa Lanette Syed, [address] [place] [address] PCP - General Family Medicine 08/25/22 Cat Operator Relationship Specialty Start Date End Date Lanette Harkins DO [address] [place] [address] PCP - General Family Medicine 08/25/22 Cat Operator Relationship Specialty Start Date End Date Lanette Harkins DO [address] [place] [address] PCP - General Family Medicine 08/25/22 Cat Operator Relationship Specialty Start Date End Date Lanette Harkins DO [address] [place] [address] PCP - General Family Medicine 08/25/22 Cat Operator Relationship Specialty Start Date End Date Lanette Harknis DO [address] [place] [id number] PCP - General Family Medicine 08/25/22 Cat Operator Relationship Specialty Start Date End Date Lanette Harkins DO [address] [place] [address] PCP - General Family Medicine 08/25/22 Cat Operator Relationship Specialty Start Date End Date Lanette Harkins DO [address] [place] [address] PCP - General Family Medicine 08/25/22 Cat Operator Relationship Specialty Start Date End Date Lanette Harkins DO [address] [place] [address] PCP - General Family Medicine 08/25/22 Cat Operator Relationship Specialty Start Date End Date Lanette Harkins DO [address] [place] [address] PCP - General Family Medicine 08/25/22 Cat Operator Relationship Specialty Start Date End Date Lanette Harkins DO [address] [place] [address] PCP - General Family Medicine 08/25/22 Cat Operator Relationship Specialty Start Date End Date Lanette Harkins DO [address] [place] [address] PCP - General Family Medicine 08/25/22 Cat Operator Relationship Specialty Start Date End Date Lanette Harkins DO [address] [place] [address] PCP - General Family Medicine 08/25/22 Cat Operator Relationship Specialty Start Date End Date Lanette Harkins DO [address] [place] [address] PCP - General Family Medicine 08/25/22 Cat Operator Relationship Specialty Start Date End Date Lanette Harkins DO [address] [place] [address] PCP - General Family Medicine 08/25/22 Cat Operator Relationship Specialty Start Date End Date Lanette Harkins DO [address] [place] [address] PCP - General Family Medicine 08/25/22 Cat Operator Relationship Specialty Start Date End Date Lanette Harkins DO [address] [place] [address] PCP - General Family Medicine 08/25/22 Cat Operator Relationship Specialty Start Date End Date Lanette Harkins DO [address] [place] [address] PCP - General Family Medicine 08/25/22 Cat Operator Relationship Specialty Start Date End Date Lanette Harkins DO [address] [place] [address] PCP - General Family Medicine 08/25/22 Cat Operator Relationship Specialty Start Date End Date Lanette Harkins DO [address] [place] [address] PCP - General Family Medicine 08/25/22 Cat Operator Relationship Specialty Start Date End Date Lanette Harkins DO [address] [place] [address] PCP - General Family Medicine 08/25/22 Cat Operator Relationship Specialty Start Date End Date Lanette Harkins DO [address] [place] [address] PCP - General Family Medicine 08/25/22 Cat Operator Relationship Specialty Start Date End Date Lanette Harkins DO [address] [place] [address] PCP - General Family Medicine 08/25/22 Cat Operator Relationship Specialty Start Date End Date Lanette Harkins DO [address] [place] [address] PCP - General Family Medicine 08/25/22 Cat Operator Relationship Specialty Start Date End Date Lanette Harkins DO [address] [place] [address] PCP - General Family Medicine 08/25/22 Cat Operator Relationship Specialty Start Date End Date Lanette Harkins DO [address] [place] [address] PCP - General Family Medicine 08/25/22 Cat Operator Relationship Specialty Start Date End Date Lanette Harkins DO [address] [place] [address] PCP - General Family Medicine 08/25/22 Cat Operator Relationship Specialty Start Date End Date Lanette Harkins DO [address] [place] [address] PCP - General Family Medicine 08/25/22 Cat Operator Relationship Specialty Start Date End Date Lanette Harkins DO [address] [place] [address] PCP - General Family Medicine 08/25/22 Cat Operator Relationship Specialty Start Date End Date Lanette Harkins DO [address] [place] [address] PCP - General Family Medicine 08/25/22 Cat Operator Relationship Specialty Start Date End Date Lanette Harkins DO [address] [place] [address] PCP - General Family Medicine 08/25/22 Cat Operator Relationship Specialty Start Date End Date Lanette Harkins DO [address] [place] [address] PCP - General Family Medicine 08/25/22 Cat Operator Relationship Specialty Start Date End Date Lanette Harkins DO [address] [place] [address] PCP - General Family Medicine 08/25/22 Cat Operator Relationship Specialty Start Date End Date Lanette Harkins DO [address] [place] [address] PCP - General Family Medicine 08/25/22 Cat Operator Relationship Specialty Start Date End Date Lanette Harkins DO [address] [place] [address] PCP - General Family Medicine 08/25/22 Cat Operator Relationship Specialty Start Date End Date Lanette Harkins DO [address] [place] [address] PCP - General Family Medicine 08/25/22 Cat Operator Relationship Specialty Start Date End Date Lanette Harkins DO PCP - General Family Medicine 08/30/10 08/24/22 Cat Operator Relationship Specialty Start Date End Date Lanette Harkins DO [address] [place] [address] (Fax) PCP - General Family Medicine 08/25/22 Cat Operator Relationship Specialty Start Date End Date Lanette Harkins DO [address] [place] [address] PCP - General Family Medicine 08/25/22 Cat Operator Relationship Specialty Start Date End Date Lanette Harkins DO [address] [place] [address] PCP - General 09/07/18 Cat Operator Relationship Specialty Start Date End Date Lanette Harkins DO [address] [place] [address] PCP - General 09/07/18 Cat Operator Relationship Specialty Start Date End Date Lanette Harkins DO [address] [place] [address] PCP - General Family Medicine 08/25/22 Cat Operator Relationship Specialty Start Date End Date Lanette Harkins DO [address] [place] [address] PCP - General 09/07/18 Cat Operator Relationship Specialty Start Date End Date Lanetet Harkins DO [address] [place] [address] PCP - General 09/07/18 Cat Operator Relationship Specialty Start Date End Date Lanette Harkins DO [address] [place] [address] PCP - General Family Medicine 08/25/22 Cat Operator Relationship Specialty Start Date End Date Lanette Harkins DO [address] [place] [address] PCP - General Family Medicine 08/25/22 Cat Operator Relationship Specialty Start Date End Date Lanette Harkins DO [address] [place] [address] PCP - General Family Medicine 08/25/22 Cat Operator Relationship Specialty Start Date End Date Lanette Harkins DO [address] [place] [address] PCP - General Family Medicine 08/25/22 Team Status: Active Member Role Status Dates Dr. Lanette Harkins DO Family Provider Active Dr. Lanette Harkins DO Primary Care Provider Active Team Status: Inactive Member Role Status Dates Dr. Lanette Harkins DO Primary Care Provider Active Start: July 19, 2024 End: July 19, 2024 Dr. Lanette Harkins DO Referring Provider Active Start: July 19, 2024 End: July 19, 2024 Fred Huber MD Attending Provider Active St art: July 19, 2024 End: July 19, 2024 Team Status: Inactive Member Role Status Dates Dr. Lanette Harkins DO Primary Care Provider Active Start: September 20, 2024 End: September 20, 2024 Dr. Lanette Harkins DO Referring Provider Active Start: September 20, 2024 End: September 20, 2024 Fred Huber MD Attending Provider Active St art: September 20, 2024 End: September 20, 2024 Team Status: Inactive Member Role Status Dates Dr. Lanette Harkins DO Primary Care Provider Active Start: October 06, 2024 End: October 06, 2024 Dr. Lanette Harkins DO Referring Provider Active Start: October 06, 2024 End: October 06, 2024 Fred Huber MD Attending Provider Active St art: October 06, 2024 End: October 06, 2024 Team Status: Inactive Member Role Status Dates Dr. Lanette Harkins DO Primary Care Provider Active Start: October 19, 2024 End: October 19, 2024 Dr. Lanette Harkins DO Referring Provider Active Start: October 19, 2024 End: October 19, 2024 Fred Huber MD Attending Provider Active St art: October 19, 2024 End: October 19, 2024 Team Status: Active Member Role Status Dates Dr. Lanette Harkins DO Primary Care Provider Active Start: October 25, 2024 Dr. Lanette Harkins DO Referring Provider Active Start: October 25, 2024 Fred Huber MD Attending Provider Active St art: October 25, 2024 Team Status: Inactive Member Role Status Dates Dr. Lanette Harkins DO Primary Care Provider Active Start: October 25, 2024 End: October 25, 2024 Dr. Santiago Marcano MD Attending Provider Active S tart: October 25, 2024 End: October 25, 2024 Team Status: Inactive Member Role Status Dates Dr. Lanette Harkins DO Primary Care Provider Active Start: October 25, 2024 End: October 25, 2024 Dr. Lanette Harkins DO Referring Provider Active Start: October 25, 2024 End: October 25, 2024 Fred Huber MD Attending Provider Active St art: October 25, 2024 End: October 25, 2024 Team Status: Active Member Role Status Dates Dr. Lanette Harkins DO Primary Care Provider Active Team Status: Inactive Member Role Status Dates Dr. Lanette Harkins DO Primary Care Provider Active Start: October 27, 2024 End: October 27, 2024 Dr. Lanette Harkins DO Referring Provider Active Start: October 27, 2024 End: October 27, 2024 Fred Huber MD Attending Provider Active St art: October 27, 2024 End: October 27, 2024 Cat Operator Relationship Specialty Start Date End Date Lanette Harkins DO [address] [place] [address] PCP - General Family Medicine 08/25/22 Cat Operator Relationship Specialty Start Date End Date Lanette Harkins DO [address] [place] [address] PCP - General Family Medicine 08/25/22 Team Status: Active Member Role/Relationship Status Dates Dr. Lanette Harkins DO Primary Care Provider Active Team Status: Inactive Member Role/Relationship Status Dates Dr. Lanette Harkins DO Primary Care Provider Active Start: September 20, 2024 End: September 20, 2024 Dr. Lanette Harkins DO Referring Provider Active Start: September 20, 2024 End: September 20, 2024 Fred Huber MD Attending Provider Active St art: September 20, 2024 End: September 20, 2024 Team Status: Inactive Member Role/Relationship Status Dates Dr. Lanette Harkins DO Primary Care Provider Active Start: October 06, 2024 End: October 06, 2024 Dr. Lanette Harkins DO Referring Provider Active Start: October 06, 2024 End: October 06, 2024 Fred Huber MD Attending Provider Active St art: October 06, 2024 End: October 06, 2024 Team Status: Inactive Member Role/Relationship Status Dates Dr. Lanette Harkins DO Primary Care Provider Active Start: October 19, 2024 End: October 19, 2024 Dr. Lanette Harkins DO Referring Provider Active Start: October 19, 2024 End: October 19, 2024 Fred Huber MD Attending Provider Active St art: October 19, 2024 End: October 19, 2024 Team Status: Inactive Member Role/Relationship Status Dates Dr. Lanette Harkins DO Primary Care Provider Active Start: October 25, 2024 End: October 25, 2024 Dr. Lanette Harkins DO Referring Provider Active Start: October 25, 2024 End: October 25, 2024 Fred Huber MD Attending Provider Active St art: October 25, 2024 End: October 25, 2024 Team Status: Inactive Member Role/Relationship Status Dates Dr. Lanette Harkins DO Primary Care Provider Active Start: October 25, 2024 End: October 25, 2024 Dr. Santiago Marcano MD Attending Provider Active S tart: October 25, 2024 End: October 25, 2024 Team Status: Inactive Member Role/Relationship Status Dates Dr. Lanette Harkins DO Primary Care Provider Active Start: October 27, 2024 End: October 27, 2024 Dr. Lanette Harkins DO Referring Provider Active Start: October 27, 2024 End: October 27, 2024 Fred Huber MD Attending Provider Active St art: October 27, 2024 End: October 27, 2024 Team Status: Active Member Role/Relationship Status Dates Dr. Lanette Harkins DO Primary Care Provider Active Start: November 15, 2024 Frde Huber MD Attending Provider Active St art: November 15, 2024 Fred Huber MD Referring Provider Active St art: November 15, 2024 Team Status: Inactive Member Role/Relationship Status Dates Dr. Lanette Harkins DO Primary Care Provider Active Start: November 21, 2024 End: November 21, 2024 Dr. Lanette Harkins DO Referring Provider Active Start: November 21, 2024 End: November 21, 2024 Fred Huber MD Attending Provider Active St art: November 21, 2024 End: November 21, 2024 Team Status: Inactive Member Role/Relationship Status Dates Dr. Lanette Harkins DO Primary Care Provider Active Start: November 15, 2024 End: November 15, 2024 Fred Huber MD Attending Provider Active St art: November 15, 2024 End: November 15, 2024 Fred Huber MD Referring Provider Active St art: November 15, 2024 End: November 15, 2024 Cat Operator Relationship Specialty Start Date End Date Lanette Harkins DO [address] [place] [address] PCP - General Family Medicine 08/25/22 Team Status: Active Member Role/Relationship Status Dates Dr. Lanette Harkins DO Primary Care Provider Active Start: December 05, 2024 Dr. Lanette Harkins DO Referring Provider Active Start: December 05, 2024 Fred Huber MD Attending Provider Active St art: December 05, 2024 Team Status: Inactive Member Role/Relationship Status Dates Dr. Lanette Harkins DO Primary Care Provider Active Start: December 05, 2024 End: December 05, 2024 Dr. Santiago Marcano MD Attending Provider Active S tart: December 05, 2024 End: December 05, 2024 Team Status: Inactive Member Role/Relationship Status Dates Dr. Lanette Harkins DO Primary Care Provider Active Start: December 05, 2024 End: December 05, 2024 Dr. Lanette Harkins DO Referring Provider Active Start: December 05, 2024 End: December 05, 2024 Fred Huber MD Attending Provider Active St art: December 05, 2024 End: December 05, 2024 Cat Operator Relationship Specialty Start Date End Date Fred Peters DO [address] [place] [id number] PCP - General Family Medicine 12/04/24 Team Status: Active Member Role/Relationship Status Dates Dr. Lanette Harkins DO Primary care physician Active Team Status: Inactive Member Role/Relationship Status Dates Dr. Lanette Harkins DO Primary care physician Active Start: October 19, 2024 End: October 19, 2024 Dr. Lanette Harkins DO Referring Provider Active Start: October 19, 2024 End: October 19, 2024 Fred Huber MD Attending physician Active S tart: October 19, 2024 End: October 19, 2024 Team Status: Inactive Member Role/Relationship Status Dates Dr. Lanette Harkins DO Primary care physician Active Start: October 25, 2024 End: October 25, 2024 Dr. Lanette Harkins DO Referring Provider Active Start: October 25, 2024 End: October 25, 2024 Fred Huber MD Attending physician Active S tart: October 25, 2024 End: October 25, 2024 Team Status: Inactive Member Role/Relationship Status Dates Dr. Lanette Harkins DO Primary care physician Active Start: October 25, 2024 End: October 25, 2024 Dr. Santiago Marcano MD Attending physician Active Start: October 25, 2024 End: October 25, 2024 Team Status: Inactive Member Role/Relationship Status Dates Dr. Lanette Harkins DO Primary care physician Active Start: October 27, 2024 End: October 27, 2024 Dr. Lanette Harkins DO Referring Provider Active Start: October 27, 2024 End: October 27, 2024 Fred Huber MD Attending physician Active S tart: October 27, 2024 End: October 27, 2024 Team Status: Inactive Member Role/Relationship Status Dates Dr. Lanette Harkins DO Primary care physician Active Start: November 15, 2024 End: November 15, 2024 Fred Huber MD Attending physician Active S tart: November 15, 2024 End: November 15, 2024 Fred Huber MD Referring Provider Active St art: November 15, 2024 End: November 15, 2024 Team Status: Inactive Member Role/Relationship Status Dates Dr. Lanette Harkins DO Primary care physician Active Start: November 21, 2024 End: November 21, 2024 Dr. Lanette Harkins DO Referring Provider Active Start: November 21, 2024 End: November 21, 2024 Fred Huber MD Attending physician Active S tart: November 21, 2024 End: November 21, 2024 Team Status: Inactive Member Role/Relationship Status Dates Dr. Lanette Harkins DO Primary care physician Active Start: December 05, 2024 End: December 05, 2024 Dr. Lanette Harkins DO Referring Provider Active Start: December 05, 2024 End: December 05, 2024 Fred Huber MD Attending physician Active S tart: December 05, 2024 End: December 05, 2024 Team Status: Inactive Member Role/Relationship Status Dates Dr. Lanette Harkins DO Primary care physician Active Start: December 05, 2024 End: December 05, 2024 Dr. Santiago Marcano MD Attending physician Active Start: December 05, 2024 End: December 05, 2024 Team Status: Inactive Member Role/Relationship Status Dates Dr. Lanette Harkins DO Primary care physician Active Start: February 09, 2025 End: February 09, 2025 Dr. Lanette Harkins DO Referring Provider Active Start: February 09, 2025 End: February 09, 2025 Fred Huber MD Attending physician Active S tart: February 09, 2025 End: February 09, 2025 Goals (unrecognized section and content) Goals may be documented in a n alternate section Reason for Visit (unrecogniz ed section and content) Reason Comments Pain Specialty Diagnoses / Procedures Referred By Contac t Referred To Contact Diagnoses Primary osteoarthritis of right knee Procedures ARTHROCENTESIS ASPIR&/INJ MAJOR JT/BURSA W/O US FLUOROSCOPIC GUIDANCE NEEDLE PLACEMENT ADD ON ARTHROCENTESIS,ASPIRATION AND/OR INJECTION,MAJOR JOINT OR BURSA W/O US GUIDANCE FLUOROSCOPIC GUIDANCE FOR NEEDLE PLACEMENT [facility] [address] [place] [address] Referral ID Status Reason Start Date Expiration Date Visits Re quested Visits Authorized [id number] 1 1 Reason Comments Orders Reason Onset Date Comments Corrected UDS order needed 12/12/2021 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 - Other Reason Comments Refill Request Reason Comments Regarding Procedure Reason Comments Pain RT side of body Reason Comments pt reports his medication is wrong from pharmacy Specialty Diagnoses / Procedures Referred By Contac t Referred To Contact Orthopedics Diagnoses Primary osteoarthritis of right knee Procedures CONSULT PANEL TO ORTHOPAEDICS OFFICE/OUTPATIENT [facility] 60-74 MINUTES Rowan Boateng DO [address] [place] [id number] Bentley Galvan DO [address] [place] [address] Referral ID Status Reason Start Date Expiration Date V isits Requested Visits Authorized [id number] Closed PCP Requested Referral 04/21/2022 04/21/2023 1 1 Reason Comments Follow Up Reason Comments Back Pain Reason Onset Date Comments Refill Request 06/19/2022 Specialty Diagnoses / Procedures Referred By Contac t Referred To Contact [facility] IMAGING Diagnoses Chronic pain of right knee Procedures MRI KNEE WO IVCON RT MRI ANY JT LOWER EXTREM W/O CONTRAST Iesha Parr PA-C [address] [place] [address] Mr Imaging Referral ID Status Reason Start Date Expiration Date V isits Requested Visits Authorized [id number] Closed Auto-Generate d Referral 05/23/2022 07/07/2022 1 1 Reason Onset Date Comments Refill Request 06/28/2022 Reason Onset Date Comments Refill Request 07/17/2022 Reason Comments Follow Up Knee Pain Reason Comments Spasticity Specialty Diagnoses / Procedures Referred By Contac t Referred To Contact [facility] Diagnoses Spasticity Procedures CONSULT - SPASTICITY EVAL OFFICE/OUTPATIENT [facility] MDM 60-74 MINUTES Manuelito Cancino MD [address] [place] [address] [facility] [place] [address] Referral ID Status Reason Start Date Expiration Date V isits Requested Visits Authorized [id number] Closed PCP Requested Referral Auto-Generated Referral 08/14/2022 08/14/2023 1 1 Reason Onset Date Comments Refill Request 08/14/2022 Reason Comments ER visit update - burn Reason Comments Burn Reason Comments New Pain Specialty Diagnoses / Procedures Referred By Contac t Referred To Contact Orthopedics Diagnoses Chronic right shoulder pain Procedures CONSULT PANEL TO ORTHOPAEDICS OFFICE/OUTPATIENT [facility] MDM 60-74 MINUTES Melvin Larsen MD [address] [place] [address] Referral ID Status Reason Start Date Expiration Date V isits Requested Visits Authorized [id number] Closed PCP Requested Referral 08/15/2022 08/15/2023 1 1 Reason Onset Date Comments Refill Request 09/19/2022 Reason Comments Established Patient Pain Follow Up Reason Onset Date Comments Refill Request 10/20/2022 Specialty Diagnoses / Procedures [facility] Diagnoses Right shoulder pain, unspecified chronicity Procedures MRI SHOULDER WO IVCON RIGHT MRI ANY JT UPPER EXTREMITY W/O CONTRAST TABITHAL Mal Gotti MD [address] [facility]. [address] [place] [address] Mr Imaging Referral ID Status Reason Start Date Expiration Date V isits Requested Visits Authorized [id number] Closed Auto-Generate d Referral 10/17/2022 12/01/2022 1 1 Reason Onset Date Comments Refill Request 11/19/2022 Reason Comments Orders Reason Comments Appointment Post-op physical the rapy Reason Comments Medication Problem Reason Comments Established Patient Follow Up Post Op Reason Comments Patient Question Reason Comments Physical Therapy Specialty Diagnoses / Procedures [facility] To Contact [facility] Diagnoses S/P right rotator cuff repair Procedures PT REHAB FOLLOW UP ORDER THERAPEUTIC EXERCISES RE, EA 15 MIN. Mal Gotti MD [address] [place] [address] [facility] [place] [address] [place] [address] Referral ID Status Reason Start Date Expiration Date Visits Requested Visits Authorized [id number] Authorized PCP Requested Referral Auto-Generate d Referral 01/23/2023 04/24/2023 20 20 Reason Comments Pain Reason Comments Patient Update Needs new psych eval Specialty Diagnoses / Procedures [facility]erred To Contact Diagnoses Primary osteoarthritis of right knee Procedures ARTHROCENTESIS ASPIR&/INJ MAJOR JT/BURSA W/O US ARTHROCENTESIS,ASPIRATION AND/OR INJECTION,MAJOR JOINT OR BURSA W/O US GUIDANCE [facility] [address] [facility] [place] [address] Referral ID Status Reason Start Date Expiration Date Visits Re quested Visits Authorized [id number] 1 1 Reason Comments PT Progress Note Specialty Diagnoses / Procedures [facility]erred To Contact [facility] Diagnoses S/P right rotator cuff repair Procedures PT REHAB FOLLOW UP ORDER THERAPEUTIC EXERCISES RE, EA 15 MIN. Mal Gotti MD [address] [place] [address] [facility] [place] [address] [place] [address] Specialty Diagnoses / Procedures Referred By Contac t Referred To Contact Diagnoses Primary osteoarthritis of right knee Procedures ARTHROCENTESIS ASPIR&/INJ MAJOR JT/BURSA W/O US FLUOROSCOPIC GUIDANCE NEEDLE PLACEMENT ADD ON ARTHROCENTESIS,ASPIRATION AND/OR INJECTION,MAJOR JOINT OR BURSA W/O US GUIDANCE FLUOROSCOPIC GUIDANCE FOR NEEDLE PLACEMENT [facility] [address] [place] [address] Reason Comments virtual visit precharting Reason Comments Future Appointment Reason Comments Appointment Reason Comments September 13 time change Reason Comments Follow Up 6 month Reason Comments virtual visit precharting Referral ID Status Reason Start Date Expiration Date Visits Re quested Visits Authorized [id number] 1 1 Reason Comments Chronic Pain Reason Comments Patient Update Specialty Diagnoses / Procedures Referred By Contac t Referred To Contact Diagnoses Chronic right shoulder pain Chronic right shoulder pain [M25.511, G89.29] Procedures ARTHROCENTESIS ASPIR&/INJ MAJOR JT/BURSA W/O US ARTHROCENTESIS,ASPIRATION AND/OR INJECTION,MAJOR JOINT OR BURSA W/O US GUIDANCE [facility] [address] [place] [address] Referral ID Status Reason Start Date Expiration Date Visits Re quested Visits Authorized [id number] 1 1 Reason Comments New Patient Abdominal Pain Specialty Diagnoses / Procedures Referred By Contac t Referred To Contact Gastroenterology Diagnoses Epigastric pain epigastric pain and some nausea refractory to proton pump inhibitor Procedures consultation Lanette Harkins DO [address] [place] [address] Phone: tel:[phone] fax: [facility] Gastro[facility]ology - [address] [address] Phone: tel: fax: Referral ID Status Reason Start Date Expiration Date Visits Re quested Visits Authorized [id number] Closed 12/04/2023 12/03/2024 1 1 Reason Onset Date Comments Care Coordination 03/25/2024 Reason Onset Date Comments Refill Request 04/08/2024 Reason Onset Date Comments Care Coordination 04/12/2024 Reason Comments Missed Appointment Reason Comments Scheduling infusions Care Team (unrecognized sect ion and content) Care Team Personnel Name: LANETTE HARKINS DO Position: P4 Physician - Primary Care Med Service: Active Provider Member Role: Primary Care Physician Address: Address: [address] [place] [address] Care Team Related Persons Name: ROBBI BALTAZAR Address: [address] [phone] Care Team Personnel Name: LANETTE HARKINS DO Position: P4 Physician - Primary Care Med Service: Active Provider Member Role: Primary Care Physician Address: Address: [address] [place] [address] Care Team Related Persons Name: ROBBI BALTAZAR Address: [address] [phone] Care Team Personnel Name: LANETTE HARKINS DO Position: P4 Physician - Primary Care Med Service: Active Provider Member Role: Primary Care Physician Address: Address: [address] [place] [address] Care Team Related Persons Name: ROBBI BALTAZAR Address: [place] [phone] PRN Active and Recently Administ ered Medications (unrecognized section and content) Medication Order 03/03/2023 03/04/2023 03/05/2023 bupivacaine (PF) 0.25 % (2.5 mg/mL) injection (SENSORCAINE MPF) (CANCELED) X (OR/PROCEDURE) PRN, Starting on Sonal 03/05/23 at 1314, Until Sonal 03/05/23 at 1317, Intraprocedure 1314 (Given - Provid er: Rowan Boateng DO)1316 (Given - Provider: Rowan Boateng DO) iopamidol 41% intrathecal solution (ISOVUE-M 200) (CANCELED) X (OR/PROCEDURE) PRN, Starting on Sonal 03/05/23 at 1315, Until Sonal 03/05/23 at 1317, Intraprocedure 1315 (Given - Provid er: Rowan Boateng DO) triamcinolone acetonide injection (KeNALog 40) (CANCELED) X (OR/PROCEDURE) PRN, Starting on Sonal 03/05/23 at 1316, Until Sonal 03/05/23 at 1317, Intraprocedure 1316 (Given - Provid er: Rowan Boateng DO) PRN Medication Order 06/28/2023 06/29/2023 06/30/2023 betamethasone acetate-betamethasone sodium phosphate injection (CELESTONE) (CANCELED) X (OR/PROCEDURE) PRN, Starting on Thu06/30/23 at 1212, Until Thu06/30/23 at 1212, Intraprocedure 1212 (Given - Provid er: Jennifer Munroe MD) bupivacaine (PF) 0.25 % (2.5 mg/mL) injection (SENSORCAINE MPF) (CANCELED) X (OR/PROCEDURE) PRN, Starting on Thu06/30/23 at 1212, Until Thu06/30/23 at 1212, Intraprocedure 1212 (Given - Provid er: Jennifer Munroe MD) PRN Medication Order 11/07/2023 11/08/2023 11/09/2023 bupivacaine (PF) 0.25 % (2.5 mg/mL) injection (SENSORCAINE MPF) (CANCELED) X (OR/PROCEDURE) PRN, Starting on Thu11/09/23 at 1115, Until Thu11/09/23 at 1119, Intraprocedure 1115 (Given - Provid er: Jennifer Munroe MD) hylan G-F 20 48 mg/6 mL injection (SYNVISC-ONE) (CANCELED) X (OR/PROCEDURE) PRN, Starting on Thu11/09/23 at 1115, Until Thu11/09/23 at 1119, Intraprocedure 1115 (Given - Provid er: Jennifer Munroe MD - Comment: lot [id number] 06/17/26) PRN Medication Order 02/21/2024 02/22/2024 02/23/2024 bupivacaine (PF) 0.25 % (2.5 mg/mL) injection (SENSORCAINE MPF) (CANCELED) X (OR/PROCEDURE) PRN, Starting on Thu02/23/24 at 0852, Until Thu02/23/24 at 0855, Intraprocedure 0852 (Given - Provid er: Jennifer Munroe MD - Comment: 5ml intra articular5 ml local) triamcinolone acetonide injection (KeNALog 40) (CANCELED) X (OR/PROCEDURE) PRN, Starting on Thu02/23/24 at 0852, Until Thu02/23/24 at 0855, Intraprocedure 0852 (Given - Provid er: Jennifer Munroe MD) FOR RECORDS PERTAINING TO PATIENTS WHO ARE OR HAVE BEEN ENROLLED IN A CHEMICAL DEPENDENCY/SUBSTANCEABUSE PROGRAM, SOME INFORMATION MAY BE OMITTED. This clinical summary was aggregated from multiple sources. Caution should be exercised in using it in the provision of clinical care. This summary normalizes information from multiple sources, and as a consequence, information in this document may materially change the coding, format and clinical context of patient data. In addition, data may be omitted in some cases. CLINICAL DECISIONS SHOULD BE BASED ON THE PRIMARY CLINICAL RECORDS. [employer] provides no warranty or guarantee of the accuracy or completeness of information in this document.
--- NOTE | 2025-02-18 20:41 | EX.ED.UPPERE ---
HPI History of Present Illness HPI Narrative: Acute right shoulder pain. History of prior rotator cuff surgery. He reinjured it and tore the repaired rotator cuff and the labrum. He is currently seeing orthopedics he is scheduled for surgery on March 08. 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 He is taking Tylenol as controlling his pain. He denies any recent injury. He denies any fever or swelling to his shoulder. Chief Complaint: Upper Extremity Injury Informant: patient and family Occured/Mechanism Mechanism/Context: No injury and No blunt trauma Onset/Context/Timing Onset: Weeks Context: Gradual Onset Timing: Continuous Quality of Pain: Sharp Current Severity: Moderate Maximum Severity: Moderate Associated Symptoms Associated Symptoms: Negative for Parasthesia, Weakness or Loss of Funtion Narrative Narrative: 49-year-old male who has a known shoulder rotator cuff tear plus a labrum tear seen on a recent MRI. Upcoming orthopedic surgery with Dr. Ajith Huber. He had a prior right shoulder repair in the past from a rotator cuff. Basically he is requesting some type of pain control. He has had prior strokes and intracranial bleeds and he states Tylenol is not cutting the pain. Prior similar symptoms: Yes Recent Illness/Hospitalization: No PFSH PFSH Medical History Right rotator cuff tear Primary osteoarthritis, right shoulder Right shoulder pain Osteoarthritis of right knee Right knee pain Loose, teeth Hearing loss, right Alcohol abuse Mood disorder History of steroid therapy Chronic pain History of IBS GERD (gastroesophageal reflux disease) Hiatal hernia Non-smoker CPAP (continuous positive airway pressure) dependence Pain aggravated by walking Edema Irregular heart beat Hypertension Migraine headache Restless legs Injury of back Stroke/cerebrovascular accident Home Medications ?Medication ?Instructions ?Recorded ?Last Taken ?Type pantoprazole 40 mg tablet,delayed 40 mg PO DAILY 09/18/20 Unknown History release tizanidine 4 mg capsule 8 mg PO QHS 09/18/20 Unknown History bupropion HCl 300 mg 24 hr tablet, 300 mg PO QDAY 02/29/24 Unknown History extended release cyclobenzaprine 5 mg tablet 5 mg PO TID PRN 02/29/24 Unknown History duloxetine 60 mg capsule,delayed 60 mg PO QDAY 02/29/24 Unknown History release fexofenadine 180 mg tablet 180 mg PO QDAY 02/29/24 Unknown History gabapentin 100 mg tablet 600 mg PO TID 02/29/24 Unknown History mirabegron 25 mg tablet,extended 25 mg PO QDAY 02/29/24 Unknown History release 24 hr (Myrbetriq) potassium chloride 20 mEq 40 meq PO DAILY 02/29/24 Unknown History tablet,extended release potassium chloride 20 mEq 20 meq PO BID 02/29/24 Unknown History tablet,extended release(part/cryst) rimegepant 75 mg disintegrating 75 mg PO QDAY PRN 02/29/24 Unknown History tablet (Nurtec ODT) sucralfate 1 gram tablet 1 g PO 4X/DAY 02/29/24 Unknown History tamsulosin 0.4 mg capsule 0.4 mg PO QDAY 02/29/24 Unknown History valsartan 160 mg tablet 160 mg PO QDAY 02/29/24 Unknown History verapamil 120 mg tablet,extended 240 mg PO QHS 02/29/24 Unknown History release zonisamide 50 mg capsule 50 mg PO QHS 02/29/24 Unknown History oxycodone-acetaminophen 5 mg-325 1 tab PO Q8H PRN pain 7 days #15 02/18/25 Unknown Rx mg tablet (Percocet) tabs Allergy/AdvReac Type Severity Reaction Status Date / Time fentanyl AdvReac Other Verified 02/18/25 20:05 hydrocodone (From Vicodin) AdvReac Other Verified 02/18/25 20:05 Surgical History S/P rotator cuff repair Hx of cardiac catheterization Hx of colonoscopy History of esophagogastroduodenoscopy (EGD) Hx of vasectomy Hx of arthroscopic knee surgery Hx of tonsillectomy Hx of appendectomy Hx of shoulder surgery Social History household members: spouse and family Smoking Status: Former smoker alcohol intake: current alcohol intake frequency: holidays/special occasions only ROS ROS ED ROS Narrative Denies recent illness. Constitutional Constitutional ED: Denies chills or fever(s) Eyes Eyes: Denies blurry vision ENT ENT ED: Denies ear pain Cardiovascular Cardiovascular: Denies chest pain Respiratory/Chest Respiratory/Chest: Denies cough or dyspnea Gastrointestinal Gastrointestinal: Denies abdominal pain Genitourinary Genitourinary ED: Denies dysuria or hematuria Musculoskeletal Musculoskeletal: Denies back pain Integumentary Denies abscess or Abrasions Neurologic Neurologic: Denies headache(s) Psychiatric Psychiatric: Denies anxiety or depression Endocrine Endocrinology: Denies cold intolerance Hematologic/Lymphatic Hematologic/Lymphatic: Denies easy bleeding, easy bruising or lymphadenopathy Allergic/Immunologic Allergic/Immunologic ED: Denies mouth swelling, tongue swelling or urticaria EXAM Physical Exam Narrative Exam Narrative: 49-year-old male sitting upright in bed. Vital signs are stable afebrile. No acute distress. Family present. HEENT exam pupils round reactive light. No facial droop. Normal speech. No trauma. Neck nontender. No lymphadenopathy. Lungs clear to auscultation. Heart regular rhythm rate about 70 no murmur. Chest wall nontender. Abdomen soft nontender. Left upper and both lower extremities he has normal movement. Right shoulder he cannot lift it or do Abduction. Consistent with a rotator cuff tear. Shoulder itself is not significantly tender to palpation. There is no swelling or redness. He is able to flex at the elbow. Flex at the wrist. He is a strong radial pulse. Normal marriage and family counselor strength normal sensation in his hand. Neurologically he is awake and alert. Answering questions following commands. Const Vital Signs: 02/18/25 20:05 Temperature 97.5 F L Temperature Source Temporal Pulse Rate 68 Respiratory Rate 18 Blood Pressure 144/102 H Blood Pressure Mean 116 Pulse Ox 98 Oxygen Delivery Method Room Air MDM MDM MDM Narrative Medical decision making narrative: 49-year-old male with a recurrent rotator cuff tear with labrum tear on MRI from November. His upcoming rotator cuff surgical repair for this coming February. He is requesting something for pain. Patient be given a [place] here. Written for Percocet for pain. Outpatient follow-up with his orthopedic physician. History & Record Review Discussion w/independent historian: Patient Additional record(s) reviewed:: Prior inpatient record, Prior outpatient record, Prior ED visit and Prior labs Discharge Plan Triage Chief Complaint: Upper Extremity Injury ED Provider: Hunter Rizo Dx/Rx/DC Orders Clinical Impression: Acute shoulder pain, Torn rotator cuff, Tear of left glenoid labrum, History of multiple strokes Instructions: ED Rotator Cuff Tear Prescriptions: New oxycodone-acetaminophen [Percocet] 5-325 mg tablet 1 tab PO Q8H PRN (Reason: pain) 7 Days Qty: 15 0RF No Action bupropion HCl 300 mg tablet extended release 24 hr 300 mg PO QDAY valsartan 160 mg tablet 160 mg PO QDAY duloxetine 60 mg capsule,delayed release(DR/EC) 60 mg PO QDAY potassium chloride 20 mEq tablet,ER particles/crystals 20 meq PO BID Nurtec ODT 75 mg tablet,disintegrating 75 mg PO QDAY PRN cyclobenzaprine 5 mg tablet 5 mg PO TID PRN zonisamide 50 mg capsule 50 mg PO QHS fexofenadine 180 mg tablet 180 mg PO QDAY mirabegron [Myrbetriq] 25 mg tablet extended release 24 hr 25 mg PO QDAY tamsulosin 0.4 mg capsule 0.4 mg PO QDAY sucralfate 1 gram tablet 1 g PO 4X/DAY pantoprazole 40 mg Tablet,Delayed Release (Dr/Ec) 40 mg PO DAILY tizanidine 4 mg Capsule 8 mg PO QHS potassium chloride 20 mEq tablet extended release 40 meq PO DAILY gabapentin 100 mg tablet 600 mg PO TID verapamil 120 mg tablet extended release 240 mg PO QHS Primary Care Provider: Ajith Peters Referrals: Harpal Kwok DO [Non-Staff, Family Practice] Ajith Huber MD [Med Staff - Active Staff, Orthopedics] - As Needed Activity Restrictions/Additional Instructions: Ice to shoulder. Percocet as needed for pain. Follow-up with your orthopedic physician as needed. Print Language: Sinhala Disposition Disposition: Home, Self Care
[2025-02-18 20:55] VITALS: BP 145/87; PULSE 65; RESP 16; TEMP 36.4; O2SAT 99
== END 2025-02-18 20:56 | disposition home or self-care (01) ==
PROVIDERS: Emergency Provider Emergency Medicine; Visit Provider Emergency Medicine
DX: M75.101 Unspecified rotator cuff tear or rupture of right shoulder, not specified as traumatic (principal); S43.431A Superior glenoid labrum lesion of right shoulder, initial encounter; X58.XXXA Exposure to other specified factors, initial encounter; M19.011 Primary osteoarthritis, right shoulder; I10 Essential (primary) hypertension; K21.9 Gastro-esophageal reflux disease without esophagitis; G25.81 Restless legs syndrome; G89.29 Other chronic pain; G43.909 Migraine, unspecified, not intractable, without status migrainosus; Z86.73 Personal history of transient ischemic attack (TIA), and cerebral infarction without residual deficits; Z79.899 Other long term (current) drug therapy; Z87.891 Personal history of nicotine dependence
CPT/HCPCS: 99282

== ENCOUNTER 2025-03-08 05:23 | Day surgery (SDC) | payer MEDICAID, SELFPAY ==
[2025-02-23 09:39] LABS: Hematocrit 37.3 % (40-54); Hemoglobin 13.0 g/dL (13.0-16.5); Mean Corp Hgb Conc 34.9 g/dL (32-36); Mean Corpuscular Volume 86.9 fL (80-94); Mean Platelet Vol. 9.6 fl (6.2-12.0); Platelet Count 211 K/mm3 (150-450); RBC Distribution Width CV 14.2 % (11.6-14.6); RBC Distribution Width SD 45.6 fl (35.1-43.9); Red Blood Count 4.29 M/mm3 (4.6-6.2); White Blood Count 5.9 K/mm3 (4.4-11.0)
[2025-02-23 11:48] LABS: Anion Gap 10 (5-15); BUN 8 mg/dL (4-19); BUN/Creat Ratio 7.4 RATIO (10-20); Calcium,Total 9.1 mg/dL (7.6-11.0); Carbon Dioxide 22.8 mmol/L (21.0-32.0); Chloride 108 mmol/L (98-108); Glucose 93 mg/dL (70-99); Potassium 4.1 mmol/L (3.3-5.1)
--- NOTE | 2025-02-23 12:44 | PAT.ANESEVAL ---
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 When Was Last Pacemaker Check QUESTION #4 FULL TEXT: You/Your Family Experience fever (hyperthermia) with Anesthesia Last Oral Intake Last Oral intake: Last Oral Intake NPO since Meds taken in AM with sips of water? Meds patient instructed to take am of surgery PONV PONV - coping machine operator: PONV - coping machine operator Female No 02/22/25 09:23 HX of Motion Sickness No 02/22/25 09:23 HX of N/V After Surgery No 02/22/25 09:23 Non-Smoker Yes 02/22/25 09:23 Duration of Surgery greater Yes 02/22/25 09:23 than 60 minutes Number of Risk Factors 2 02/22/25 09:23 PONV Score Moderate Risk 02/22/25 09:23 Height & Weight Height & Weight: Anesthesia: Height & Weight Height 6 ft 10/25/24 10:33 Respiratory Assessment Respiratory Assessment - coping machine operator: Respiratory Tract Infection Hx - coping machine operator Hx Respiratory Tract Infection No 02/22/25 09:23 STOP Sleep Apnea STOP Sleep Apnea - coping machine operator: STOP Sleep Apnea - coping machine operator Hx Hypertension Yes 02/22/25 09:23 Hx Sleep Apnea Yes 02/22/25 09:23 CPAP Yes: non compliant 02/22/25 09:23 BIPAP No 02/22/25 09:23 Do you snore loudly (louder than talking or can be heard Do you often feel tired/ fatigued/ sleepy during daytime? Has anyone observed you stop breathing during sleep? STOP Results Positive 02/22/25 09:23 QUESTION #5 FULL TEXT : Do you snore loudly (louder than talking or can be heard through closed doors)? 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 Specify any problems Hx of Preganancy in last 3 N/A 02/22/25 09:23 Months Nurse Filling Out Transfusion NBUCHER 02/22/25 09:23 & Questions: Date: 02/22/25 02/22/25 09:23 Time: 02/22/25 09:23 Patient unable to answer at this time (ie. confused, unrespo /Reproduction History /Reproductive History - coping machine operator: /Reproductive Hx- coping machine operator Hx Now No 02/22/25 09:23 Gestational Age (in weeks): EDC: Hx Hx Para Hx Section SAB No 02/22/25 09:23 [facility] Medical History (Updated 02/22/25 @ 09:37 by Rachel Leo) Preop testing Wears partial dentures Arthritis History of edema Right rotator cuff tear Primary osteoarthritis, right shoulder Right shoulder pain Osteoarthritis of right knee Right knee pain Loose, teeth Hearing loss, right Alcohol abuse Mood disorder History of steroid therapy Chronic pain History of IBS GERD (gastroesophageal reflux disease) Hiatal hernia Non-smoker CPAP (continuous positive airway pressure) dependence Pain aggravated by walking Edema Irregular heart beat Hypertension Migraine headache Restless legs Injury of back Stroke/cerebrovascular accident Home Medications ?Medication ?Instructions ?Recorded ?Last Taken ?Type pantoprazole 40 mg tablet,delayed 40 mg PO DAILY 09/18/20 Unknown History release tizanidine 4 mg capsule 8 mg PO QHS 09/18/20 Unknown History bupropion HCl 300 mg 24 hr tablet, 300 mg PO QDAY 02/29/24 Unknown History extended release duloxetine 60 mg capsule,delayed 60 mg PO QDAY 02/29/24 Unknown History release fexofenadine 180 mg tablet 180 mg PO QDAY 02/29/24 Unknown History gabapentin 100 mg tablet 600 mg PO TID 02/29/24 Unknown History mirabegron 25 mg tablet,extended 25 mg PO QDAY 02/29/24 Unknown History release 24 hr (Myrbetriq) potassium chloride 20 mEq 40 meq PO DAILY 02/29/24 Unknown History tablet,extended release potassium chloride 20 mEq 20 meq PO BID 02/29/24 Unknown History tablet,extended release(part/cryst) sucralfate 1 gram tablet 1 g PO 4X/DAY 02/29/24 Unknown History tamsulosin 0.4 mg capsule 0.4 mg PO QDAY 02/29/24 Unknown History valsartan 160 mg tablet 160 mg PO QDAY 02/29/24 Unknown History verapamil 120 mg tablet,extended 240 mg PO QHS 02/29/24 Unknown History release zonisamide 50 mg capsule 50 mg PO QHS 02/29/24 Unknown History prednisone 10 mg tablet 10 mg PO DAILY 02/22/25 Unknown History ubrogepant 100 mg tablet (Ubrelvy) 100 mg PO Q2H PRN PRN migraines 02/22/25 Unknown History Allergy/AdvReac Type Severity Reaction Status Date / Time fentanyl AdvReac Other Verified 02/22/25 09:19 hydrocodone (From Vicodin) AdvReac Other Verified 02/22/25 09:19 Surgical History (Updated 02/22/25 @ 09:33 by Rachel Leo) S/P rotator cuff repair Hx of cardiac catheterization Hx of colonoscopy History of esophagogastroduodenoscopy (EGD) Hx of vasectomy Hx of arthroscopic knee surgery Hx of tonsillectomy Hx of appendectomy Hx of shoulder surgery Social History household members: spouse and family Smoking Status: Never smoker alcohol intake: current alcohol intake frequency: holidays/special occasions only Audit: Pertinent Findings Pertinent Findings EKG Perinent findings: 09/20/2020. Normal sinus rhythm 69 bpm. Nonspecific T wave abnormality. Recommendation Anesthesia Recommendation Anesthesia recommendation: OPTIMIZED for anesthesia
[2025-03-08] VITALS (9 sets, daily range): BP systolic 132–144; BP diastolic 90–98; PULSE 65–78; RESP 16–18; TEMP 36.6–37.4; O2SAT 94–98; BMI 34.4
--- OUTSIDE RECORDS SUMMARY | 2025-03-08 05:28 | XMS RPT_ITS | CCD ---
Author Organization [facility] Care Team Providers Care Instrumentation And Controls Technician Name Role Phone KRISSY LINO Attending Unavailable PROVIDER, UNKNOWN Admitting Unavailable PATIENT, SELF Referring Unavailable Lanette Harkins F Unavailable Unavailable Unavailable LANETTE HARKINS DO Primary Care Physician Lanette Harkins Primary Care Provider Lanette Harkins Primary Care Provider LANETTE HARKINS DO Primary Care Physician Lanette Harkins Primary Care Provider Lanette Harkins DO Primary Care Provider Rissa LOWERY Lanette Syed [...] Rissa DO, Lanette F Primary Care Provider [phone] PETE CHANEY, RAHUL BALLARD Attending U navailable [...] le RISSA, LANETTE F Primary Care Unavailable DOMINOG RAMON Referring Unavailable RISSA, LANETTE F Primary [...] RISSA, LANETTE F Primary Care Unavailable GINO WOODS Referring Unava ilable JESSE DUMONT Admitting Unavailable PROVIDER, UNKNOWN Attending Unavailable RISSA, LANETTE F Primary Care Unavailable ANA MARÍA, MAL ALBERT Admitting Unavailab le ANA MARÍA, MAL ALBERT Attending Unavailab le RISSA, LANETTE F Primary Care Unavailable SHANNON RODRIGUEZ Referring Unavailable YFN BLANCA Attending UnavailDORA Babcock Admitting Unavailable GENARO-BACHERT DO, CHARLETTE Cowan Attending Yaquelin vailable RISSA LOWERY, LANETTE Primary Care Unavailable Lanette Harkins DO Primary Care Provider [phone] Rissa LOWERY, Lanette F Primary Care Provider [phone] CYNDY WALTON Attending Unavailable LANETTE HARKINS Referring Unavailable LANETTE HARKINS Primary Care Unavailable Rissa LOWERY, Dr. Rowan Primary Care Provider [phone] Dr. Lanette Harkins DO Referring Provider Fred Huber MD Attending Provider [phone] Dr. Santiago Marcano MD Attending Provider [phone] FRED PETERS DO Primary Care Physician Rissa LOWERY, Dr. Rowan Primary Care Provider [phone] Rissa LOWERY, Dr. Rowan Referring Provider Fred Huber MD Attending Provider [phone] Fred Huber MD Referring Provider [phone] LANETTE HARKINS DO Attending Unavailable RISSA LOWERY, LANETTE Primary Care Unavailable OLESYA STUCCO WORKER - FLEXIBLE MACHINING SYSTEM MACHINIST, ALLI Lynn Attending U navleticiaable RISSA LOWERY, LANETTE Primary Care Unavailable OLESYA STUCCO WORKER - FLEXIBLE MACHINING SYSTEM MACHINIST, ALLI Lynn Attending U navleticiaable RISSA LOWERY, LANETTE Primary Care Unavailable PETERS DO, FRED Fontanez Primary Care Unavailable BALTES STUCCO WORKER-FLEXIBLE MACHINING SYSTEM MACHINIST, SHAAN Attending Unavailabl e RISSA DO, LANETTE Primary Care Unavailable WHITNEY STUCCO WORKER-FLEXIBLE MACHINING SYSTEM MACHINIST, KIM Attending Unavailab le OLESYA STUCCO WORKER - FLEXIBLE MACHINING SYSTEM MACHINIST, ALLI Lynn Attending U navailable RISSA LOWERY, LANETTE Primary Care Unavailable RISSA DO, LANETTE Primary Care Unavailable OLESYA STUCCO WORKER - FLEXIBLE MACHINING SYSTEM MACHINIST, ALLI Lynn Attending U navFred Taylor DO Primary Care Provider [phone] Dr. Lanette Harkins DO Primary Care Physician Dr. Lanette Harkins DO Referring Provider Fred Huber MD Attending Physician [phone] Dr. Santiago Marcano MD Attending Physician [phone] Dr. Lanette Harkins DO Primary Care Physician Dr. Lanette Harkins DO Referring Provider Fred Huber MD Attending Physician Dr. Hunter Rizo MD Emergency Department Physici an Dr. Fred Peters DO Primary Care Physician [phone] LEEANN OWENS Attending Unavailable RISSA, LANETTE F Primary Care Unavailable RISSA, LANETTE F Primary Care Unavailable FRED PETERS Primary Care Unavailable LELAND, FRED Primary Care Unavailable RISSA, LANETTE F Primary Care Unavailable MIREYA DESAI Attending Unavailable RISSA, LANETTE F Primary Care Unavailable DO DODSON JESSICA Attending Unav ailable LELAND, FRED Primary Care Unavailable LELAND, FRED Primary Care Unavailable GINO WOODS Attending Unava ilable KAIN LEE Attending Unavailable RISSA, LANETTE F Primary Care Unavailable BROWN ALCANTARA Attending Unavailable LELAND, FRED Primary Care Unavailable Fred Huber Attending Unavailable Rissa, Lanette Primary Care Unavailable Rissa, Lanette Referring Unavailable Mayo, Fred Attending Unavailable Rissa, Lanette Referring Unavailable Rissa, Lanette Primary Care Unavailable Rissa, Lanette Primary Care Unavailable Rissa, Lanette Referring Unavailable Mayo, Fred Attending Unavailable Rissa, Lanette Primary Care Unavailable Rissa, Lanette Referring Unavailable Fred Huber Attending Unavailable Fred Huber Referring Unavailable Fred Huber Attending Unavailable Rissa, Lanette Primary Care Unavailable Fred Huber Referring Unavailable Fred Huber Attending Unavailable Rissa, Lanette Primary Care Unavailable Fred Huber Referring Unavailable Rissa, Lanette Primary Care Unavailable Fred Huber Attending Unavailable Fred Peters Primary Care Unavailable Hunter Rizo Attending Unavailable Fred Huber Referring Unavailable Fred Peters Primary Care Unavailable Fred Huber Attending Unavailable Fred Huber Attending Unavailable Rissa, Lanette Primary Care Unavailable Rissa, Lanette Referring Unavailable Mayo, Fred Attending Unavailable Rissa, Lanette Primary Care Unavailable Rissa, Lanette Referring Unavailable Rissa, Lanette Primary Care Unavailable Rissa, Lanette Referring Unavailable MauisonFred Attending Unavailable Rissa, Lanette Primary Care Unavailable Santiago Marcano Attending Unavailable Rissa, Lanette Primary Care Unavailable Rissa, Lanette Referring Unavailable Mauison, Fred Attending Unavailable Rissa, Lanette Primary Care Unavailable Rissa, Lanette Referring Unavailable Mayo, Fred Attending Unavailable Rissa, Lanette Referring Unavailable Rissa, Lanette Primary Care Unavailable Mollison, Fred Attending Unavailable Mollison, Fred Attending Unavailable Rissa, Lanette Primary Care Unavailable Rissa, Lanette Referring Unavailable Rissa, Lanette Primary Care Unavailable Mollison, Fred Attending Unavailable Rissa, Lanette Primary Care Unavailable Jeet, Cordova Attending Unavailable Rissa, Lanette Primary Care Unavailable Rissa, Lanette Referring Unavailable Mollison, Fred Attending Unavailable Rissa, Lanette Primary Care Unavailable Rissa, Lanette Referring Unavailable Mollison, Fred Attending Unavailable Rissa, Lanette Primary Care Unavailable Rissa, Lanette Referring Unavailable Mollison, Fred Attending Unavailable Rissa, Lanette Referring Unavailable Rissa, Lanette Primary Care Unavailable Mollison, Fred Attending Unavailable Allergies Allergy Classification Reported Allergen(s) Allergy Type Date of Onset Reaction(s) Facility Acetaminophen / HYDROcodone (1 source) Acetaminophen / HYDROcodone; Translations: [Vicodin ES TABS] Drug Allergy [facility] Work Phone: (20 sources) Acetaminophen / HYDROcodone; Translations: [HYDROCODONE-ACETAM INOPHEN] Drug Allergy 06-06-19 11 Mental Status Change, [facility]ching [facility] ([facility]) orange oil; Translations: [ORANGE OIL] Drug Allergy 08-07-19 16 Hives, Other (See Comments), Other: See Comments [facility] (3 sources) MILK-RELATED COMPOUNDS; Translations: [MILK-RELATED COMPOUNDS] Propensity to adverse reactions to drug (disorder) 08-07-19 16 Other (See Comments) [facility] (14 sources) Acetaminophen / HYDROcodone; Translations: [acetaminophen-hydr ocodone] Drug Allergy Combative, Itching [facility] (14 sources) ARIPiprazole lauroxil; Translations: [aripiprazole] Drug Allergy 02-23-20 21 Aggressive behavior (finding) [facility] (20 sources) hydroCHLOROthiazide ; Translations: [hydrochlorothiazid e] Drug Allergy 05-18-19 21 Hypokalemia (disorder), Other: See Comments, Other (See Comments) [facility] (20 sources) Amite juice; Translations: [ORANGE JUICE] Food allergy 11-20-19 22 Unknown [facility] (20 sources) Pseudoephedrine; Translations: [pseudoephedrine] Drug Allergy 05-20-19 22 Unknown [facility] (14 sources) Milk Products Food allergy Nasal (qualifier value) [facility] (20 sources) HYDROcodone; Translations: [HYDROCODONE] Drug Allergy 09-26-19 21 Other (See Comments), Other: See Comments [facility] Work Phone: (20 sources) Acetaminophen / Codeine; Translations: [ACETAMINOPHEN-CODE INE] Drug Allergy 07-25-19 22 Unknown, Other (See Comments) [facility] Work Phone: (20 sources) ARIPiprazole; Translations: [ARIPIPRAZOLE] Drug Allergy 02-23-20 Mental Status Change, Other (See Comments) [facility] Work Phone: (20 sources) Sulfamethoxazole / Trimethoprim; Translations: [SULFAMETHOXAZOLE-T RIMETHOPRIM] Drug Allergy 03-26-20 Unknown, Other (See Comments), Other: See Comments [facility] Work Phone: (20 sources) Acetaminophen; Translations: [ACETAMINOPHEN] Drug Allergy 09-03-19 23 Other (See Comments), Other: See Comments [facility] (20 sources) Doxycycline; Translations: [DOXYCYCLINE] Drug Allergy 05-13-20 23 Hives, Weal (disorder) [facility] (7 sources) fentaNYL; Translations: [FENTANYL] Drug Allergy 12-05-19 Itching, Other: See Comments [facility] (3 sources) Ibuprofen; Translations: [IBUPROFEN] Drug Allergy 12-05-19 Other: See Comments [facility] (1 source) fentaNYL Drug Allergy 02-23-20 [facility] Repository (1 source) HYDROcodone Drug Allergy 02-23-20 [facility] Repository Medications Current Medications Medication Drug Class(es) Dates Sig (Normalized) Sig (Original) acetaminophen 500 mg oral tablet (1 source) Start: 06-02-2023 End: 07-02-2023 take 2 tablets by mouth every eight hours acetaminophen (TYLENOL) 500 mg tablet Take 2 tablets by mouth every 8 hours. 180 tablet 0 06/02/2023 07/02/2023 Active Comment on above: Take 2 tablets by mo uth every 8 hours. acetaminophen 325 mg / [...] Refill(s), . Start Date: 04/09/20 Status: Ordered acetaminophen 325 mg / oxyCODONE hydrochloride 5 mg oral tablet (20 sources) Opioid Agonist Start: 02-18-2025 take 1 tablet by mouth every eight hours as needed for pain Start: 01-09-2023 End: 02-17-2023 take 1-2 tablets by mouth every four hours as needed for pain oxyCODONE-acetaminophen (PERCOCET) 5-325 mg tablet Indications: S/P rotator [...] Take by mouth. Take 1 tablet by marucs th three times daily as needed for [...] every 4 hours as needed for pain. albuterol MDI (90 mcg/inh) [facility] free inhalation aerosol (4 sources) Start: 4 take 2 puff(s) by inhalation every six hours as needed for wheezing albuterol MDI (90 mcg/inh) CFC free inhalation aerosol 2 puff(s), Inhalation, q6h, PRN as needed for wheezing, # 1 EA, 0 Refill(s), Pharmacy: [id number], Pneumonia of upper lobe due to [...] wheezing, # 1 EA, 0 Refill(s), Pharmacy: [id number], Pneumonia of upper lobe due to [...] 0 Refill(s), 02/09/24 3:01:00 PM EDT, Pharmacy: [id number], Acute rhinosinusitis, 190, cm, 01/28/24 14:03:00 EDT, Height, kg, 02/02/24 14:23:00 EDT, Dosing Weight Start Date: 02/02/24 Stop Date: 02/09/24 Status: Ordered Start: 04-03-2021 End: 04-10-2021 Tessalon Perles 100 mg oral capsule Dose : 100 mg = 1 cap(s), Oral, TID, PRN Cough, do not crush or chew, X 7 day(s), # 21 cap(s), 0 Refill(s), 04/10/21 11:29:00 EST, [id number], 190.5, cm, 04/03/21 10:46:00 EST, Height, kg, [...] q24h, # 90 tab(s), 1 Refill(s), Pharmacy: [id number], 187.5, cm, 08/24/24 10:01:00 EDT, Height, [...] q24h, # 100 tab(s), 3 Refill(s), Pharmacy: [id number], 189.5, cm, 04/13/23 13:20:00 EST, Height, kg, 04/13/23 13:20:00 EST, Dosing Weight Start Date: 05/07/23 Stop Date: 06/10/24 Status: Ordered Start: 05-07-2023 take 1 tablet by mouth once da jaquelin Start: 04-17-2022 take 1 tablet by marcus [...] tabs., # 90 tab(s), 3 Refill(s), [id number], 189, cm, 04/17/22 9:13:00 EST, Height Start [...] q24h, # 90 tab(s), 3 Refill(s), Pharmacy: [facility] #[id number], Depressive disorder, 190, cm, 11/22/21 13:04:00 EDT, Height, kg, 11/22/21 13:04:00 EDT, Dosing Weight Start Date: 11/22/21 Status: Ordered Start: 05-03-2021 take 1 tablet by marcus th every hour, then take 1 tablet by mouth every twenty-four hours buPROPion 150 mg/24 hours (XL) oral tablet, extended release Dose : 150 mg = 1 tab(s), Oral, q24h, # 90 tab(s), 1 Refill(s), Pharmacy: [facility] #[id number], Depressive disorder, 190, cm, 04/25/21 7:55:00 EST, Height, kg, 04/25/21 7:55:00 EST, Dosing Weight Start Date: 05/03/21 Status: Ordered Start: 02-25-2021 take 1 tablet by marcus th every hour, then take 1 tablet by mouth every twenty-four hours buPROPion 150 mg/24 hours (XL) oral tablet, extended release Dose : 150 mg = 1 tab(s), Oral, q24h, # 30 tab(s), 1 Refill(s), Pharmacy: [facility] #[id number], Depressive disorder, 191, cm, 02/18/21 13:41:00 EDT, Height, kg, 02/18/21 13:41:00 EDT, Dosing Weight Start Date: 02/25/21 Status: Ordered Comment on above: TAKE 1 TABLET BY MARCUS TH EVERY 24 HOURS TAKE 1 TABLET BY MARCUS TH EVERY 24 HOURS. REPLACES PREVIOUS PRESCRIPTION FOR BUPROPION 150 MG TABLET celecoxib 100 mg oral capsule (3 sources) Nonsteroidal Anti-inflammatory Drug Start: 04-21-20 End: 05-21-19 23 take 1 capsule by mouth every twelve hours as needed celecoxib (CELEBREX) 100 mg capsule Take 1 capsule by mouth twice daily as needed. 60 capsule 0 04/21/2022 05/21/2022 Active Comment on above: Take 1 capsule by mo [facility] twice daily as needed. cephalexin 500 mg oral capsule (1 source) Cephalosporin Antibacterial Start: 11-11-19 End: 11-21-19 cephalexin 500 mg oral capsule Dose : 500 mg = 1 cap(s), Oral, QID, X 10 day(s), # 40 cap(s), 0 Refill(s), 11/20/24 10:07:00 AM EDT, Pharmacy: [id number], Skin infection, 187.5, cm, 11/10/24 9:19:00 [...] qDay, # 90 tab(s), 1 Refill(s), [id number], Environmental allergies, 190, cm, 03/12/21 11:02:00 EDT, [...] tab(s), 0 Refill(s), 11/29/21 19:31:00 EDT, Pharmacy: [facility] #[id number], Epididymitis, 190, cm, 11/01/21 14:02:00 EDT, Height, [...] End: 09-02-2022 collagenase (SANTYL) ointmen t cyclobenzaprine hydrochlorid e 5 mg oral tablet (20 sources) Muscle Relaxant Start: 08-20-2023 End: 10-05-2024 take 1 tablet by mouth three times daily as needed Start: 06-23-2023 End: 07-03-2023 cyclobenzaprine 5 mg [...] 20 mg/ml oral solution (12 sources) Uncompetitive Y-ffjmcf-T-aspartate Receptor Antagonist, Sigma-1 Agonist Start: take 10 mL by mouth every eight [...] Comment on above: Take 1 capsule by [facility] twice daily. doxycycline hyclate 100 mg oral tablet (1 source) Tetracycline-class Drug Start: End: doxycycline hyclate 100 mg oral tablet Dose : 100 mg = 1 tab(s), Oral, BID, X 20 day(s), # 40 tab(s), 0 Refill(s), 05/03/23 2:04:00 PM EST, Pharmacy: [id number], Chronic sinusitis, 189.5, cm, 04/13/23 13:20:00 [...] daily., # 90 cap(s), 1 Refill(s), Pharmacy: [facility], Depressive disorder, 187.5, cm, 08/24/24 10:01:00 EDT, Height, kg, 08/24/24 10:01:00 EDT, Dosing Weight Start Date: 08/24/24 Status: Ordered Quantity: 90.0 Unit: cap(s) Repeat number: 2 Indications: Other specified depressive episodes; Start: 08-28-2023 End: 10-01-2024 take 1 capsule by mouth once daily Start: 12-05-2021 End: 02-17-2023 Cymbalta 60 mg oral delayed release capsule Dose : 60 mg = 1 cap(s), Oral, qDay, do not crush or chew, # 90 cap(s), 3 Refill(s), Pharmacy: [facility], 74, cm, 07/16/22 10:48:00 EST, Height, kg, 07/16/22 10:48:00 EST, Dosing Weight Start Date: 07/16/22 Status: Ordered Start: 11-01-2021 End: 01-21-2022 take 1 capsule by mouth once daily DULoxetine (CYMBALTA) 30 mg capsule Take 30 mg by mouth once daily. 0 11/04/2021 01/21/2022 Discontinued take 3 capsules by m out once daily DULoxetine (CYMBALTA) 60 mg capsule [...] take 1 tablet by mouth once daily fluticasone propionate 0.05 mg/actuat metered dose nasal spray (12 sources) Corticosteroid Start: 04-20-20 End: 05-04-20 24 take 1 spray(s) nasal route twice daily fluticasone (FLONASE) 50 mcg/actuation nasal spray Use 1 [place] in each nostril two times a day [...] capsule (20 sources) Anti-epileptic Agent Start: 02-29-2024 Start: 09-24-2021 End: 08-14-2024 take 1 tablet [...] times daily. Take 1 tablet by marcus three times daily for 30 days. Take 600 mg by mouth three times daily. Take 1 tablet by marcus three times daily for 90 days. Take 1 tablet by marcus three times daily for 90 days. Do not start before August 27, 2022. Take 1 tablet by marcus three times a day for 90 days. Take 1 tablet by marcus three times a day for 90 days. Do not start before July 19, 2023. Take 1 tablet by marcus three times a day for 30 days. [...] 0 Refill(s), 02/12/24 3:00:00 PM EDT, Pharmacy: [id number], Acute rhinosinusitis, 190, cm, 01/28/24 14:03:00 [...] 1 tablet by mouth once daily montelukast 10 mg oral tablet (1 source) [...] take 1 tablet by mouth once daily Comment on above: Take 40 mg by mouth twice daily. potassium chloride 10 meq extended release oral capsule (20 sources) Start: 08-24-2024 potassium chloride 10 mEq oral capsule, extended release Dose : 20 mEq = 2 cap(s), Oral, BID, take with food. (Replaces previous prescription for the potassium chloride 20 mill equivalent tabs.), # 360 cap(s), 3 Refill(s), Pharmacy: [id number], Hypokalemia, 187.5, cm, 08/24/24 10:01:00 EDT, Height, kg, 08/24/24 10:01:00 EDT, Dosing Weight Start Date: 08/24/24 Status: Ordered Quantity: 360.0 Unit: cap(s) Repeat number: 4 Indications: Hypokalemia; Start: 08-25-2023 End: 09-28-2024 Potassium Chloride (Eqv-Klor -Con M20) 20 mEq oral tablet, extended release Dose : 20 mEq = 1 tab(s), Oral, BID, # 200 tab(s), 3 Refill(s), Pharmacy: [facility], 189.5, cm, 08/25/23 9:46:00 EDT, Height, kg, 08/25/23 9:42:00 EDT, Dosing Weight Start Date: 08/25/23 Stop Date: 09/28/24 Status: Ordered Start: 08-22-2022 Potassium Chlo ride (Vql-Agmj-Yum M20) 20 mEq oral tablet, extended release Dose : 20 mEq = 1 tab(s), Oral, BID, # 180 tab(s), 3 Refill(s), Pharmacy: [id number], 190.5, cm, 08/22/22 10:56:00 EDT, Height, kg, 08/22/22 10:56:00 EDT, Dosing Weight Start Date: 08/22/22 Status: Ordered Start: 08-30-2021 take 1 tablet by marcus th twice daily Start: 08-30-2021 Potassium Chlo ride (Eff-Cgkx-Kbx M20) 20 mEq oral tablet, extended release Dose : 20 mEq = 1 tab(s), Oral, BID, # 180 tab(s), 3 Refill(s), Pharmacy: [facility] #[id number], 190, cm, 08/30/21 11:29:00 EDT, Height, kg, 08/30/21 11:29:00 EDT, Dosing Weight Start Date: 08/30/21 Status: Ordered Start: 09-18-2020 End: 02-29-2024 take 2 tablets by mouth once daily Start: 09-18-2020 take 40 mEq by mouth once lara y Potassium Chloride Active 40 MEQ PO DAILY September 18, 2020 12:00am Start: 08-20-2020 End: 09-28-2024 take 1 tablet by mouth once daily potassium chloride CR (K-Tab) 20 MEQ ER tablet Take 20 mEq by mouth daily. 08/20/2020 09/28/2024 Active Start: 08-20-2020 Potassium Chlo ride (Okh-Qmjo-Hqy M20) 20 mEq oral tablet, extended release Dose : 20 mEq = 1 tab(s), Oral, qDay, TAKE 1 TABLET BY MOUTH EVERY DAY TAKE WITH FOOD, # 30 tab(s), 6 Refill(s), Pharmacy: [facility] #[id number], 190.3, cm, 07/26/20 11:16:00 EST, Height, kg, [...] qDay, # 30 tab(s), 1 Refill(s), Pharmacy: [facility] #[id number], Acute bacterial sinusitis, 190, cm, 04/08/21 15:15:00 EST, Height, kg, 04/08/21 15:15:00 EST, Dosing Weight Start Date: 04/08/21 Status: Ordered rimegepant 75 mg disintegrating oral tablet (20 sources) Start: 08-16-2021 take 1 tablet by mouth once daily as needed Start: 08-16-2021 NURTEC ODT 75 mg disintegrating tablet 08/16/2021 Active tamsulosin hydrochloride 0.4 mg oral capsule (20 sources) alpha-Adrenergic Trae Start: 06-23-2023 take 1 capsule by mouth once daily Comment on above: Take 0.4 mg by [...] Start: 12-22-2023 take 2 tablets by mo ut once daily at bedtime tiZANidine 4 mg oral tablet See Instructions, 2 tab(s) Oral qHS, # 180 tab(s), 1 Refill(s), Pharmacy: [id number], 190.5, cm, 12/14/23 14:09:00 EDT, Height, kg, 12/14/23 14:09:00 EDT, Dosing Weight Start Date: 12/22/23 Status: Ordered Quantity: 180.0 Unit: tab(s) Repeat number: 2 Start: 12-22-2023 take 1 tablet by marcus once, then take 1 tablet by mouth in the evening, then take 2 tablets by mouth at bedtime tiZANidine (Zanaflex) 4 MG tablet TAKE 1 TABLET BY MOUTH EVERY afternoon, TAKE 1 TABLET BY MOUTH IN THE EVENING and TAKE 2 TABLETS BY MOUTH AT BEDTIME 12/22/2023 Active Start: 08-06-2023 take 2 tablets by mo ut once daily at bedtime tiZANidine 4 mg oral tablet See Instructions, 2 tab(s) Oral qHS, # 180 tab(s), 1 Refill(s), Pharmacy: [id number], 189.5, cm, 06/23/23 14:23:00 EST, Height, [...] Spasm, # 60 tab(s), 1 Refill(s), Pharmacy: [facility] #[id number], 190, cm, 08/30/21 11:29:00 EDT, Height, kg, 08/30/21 11:29:00 EDT, Dosing Weight Start Date: 08/30/21 Stop Date: 09/27/21 Status: Ordered Start: 09-18-2020 take 2 capsules by m outh at bedtime Start: 09-18-2020 take 8 mg by mouth at bedtime Tizanidine Active 8 MG PO AT BEDTIME September 18, 2020 12:00am Start: 05-28-2020 tiZANidine 4 m g oral tablet Dose : 8 mg = 2 tab(s), Oral, qHS, # 180 tab(s), 1 Refill(s), Pharmacy: [facility][id number], 191, cm, 05/28/20 10:19:00 EST, Height, kg, [...] 1 tablet by marcus th three times daily. Take 1 capsule by mo ut daily at bedtime. Take one in the afte rnoon and evening and take 2 tabs at bedtime. Take 1 tablet by marcus th as directed. Take one in the afternoon and evening and take 2 tabs at bedtime. UNKNOWN TO PATIENT (1 source) valsartan 160 mg oral tablet (20 sources) Angiotensin 2 Receptor Trae Start: 07-16-2022 valsartan 80 mg oral tablet Dose : 80 mg = 1 tab(s), Oral, qDay, # 90 tab(s), 1 Refill(s), Pharmacy: [facility], Essential hypertension, 74, cm, 07/16/22 10:48:00 EST, Height Start Date: 07/16/22 Status: Ordered Start: 01-08-2022 End: 02-10-2025 take 1 tablet by mouth once daily Comment on above: Take 160 mg by [...] qDay, # 90 cap(s), 3 Refill(s), Pharmacy: [facility], 190, cm, 05/02/24 14:31:00 EST, Height, kg, 05/02/24 14:31:00 EST, Dosing Weight Start Date: 05/16/24 Status: Ordered Quantity: 90.0 Unit: cap(s) Repeat number: 4 Start: 02-29-2024 take 2 tablets by [facility] at bedtime Start: 06-08-2023 take 1 capsule by [facility] every hour, then take 1 capsule by mouth once daily verapamil 240 mg/24 hours oral capsule, extended release Dose : 240 mg = 1 cap(s), Oral, qDay, # 90 cap(s), 3 Refill(s), Pharmacy: [facility], 189.5, cm, 06/04/23 13:05:00 EST, Height, kg, 06/04/23 13:05:00 EST, Dosing Weight Start Date: 06/08/23 Status: Ordered Start: 06-02-2022 take 1 capsule by [facility] every hour, then take 1 capsule by mouth once daily verapamil 240 mg/24 hours oral capsule, extended release Dose : 240 mg = 1 cap(s), Oral, qDay, # 90 cap(s), 3 Refill(s), Pharmacy: [id number], 189, cm, 05/13/22 14:54:00 EST, Height Start Date: 06/02/22 Status: Ordered Start: 06-02-2022 take 1 capsule by [facility] once daily verapamil ER (VERELAN) 240 mg [...] 9:55am Start: 08-27-2020 take 1 tablet by [facility] every hour, then take 1 tablet by mouth once daily at bedtime verapamil 120 mg/12 hours oral tablet, extended release Dose : 120 mg = 1 tab(s), Oral, qHS, # 90 tab(s), 3 Refill(s), Pharmacy: [facility] #[id number], 189, cm, 10/28/21 16:08:00 EDT, Height, kg, 10/28/21 16:08:00 EDT, Dosing Weight Start Date: 10/28/21 Status: Ordered take 1 capsule by [facility] once daily Verapamil HCl ER 120 MG Oral Capsule Extended Release 24 Hour TAKE 1 CAPSULE DAILY BEFORE EATING. Quantity: 0 Refills: 0 Ordered: 29-Jun-2020 DO Active Comment on above: Take 120 mg by mouth daily at bedtime. Take 120 mg by mouth . TAKE 1 CAPSULE BY [facility] EVERY DAY. REPLACES PREVIOUS PRESCRIPTION FOR VERAPAMIL 120 MG CAPSULES Take 240 mg by mouth once daily. zonisamide 100 mg oral capsule (20 sources) Anti-epileptic Agent Start: 11-10-2024 zonisamide 100 mg oral capsule Dose : 100 mg = 1 cap(s), Oral, Daily, 0 Refill(s) Start Date: 11/10/24 Status: Ordered Repeat number: 1 Start: 06-23-2023 take 1 capsule by mouth at bed time Completed/Discontinued Medications Medication Drug Class(es) Dates Sig (Normalized) Sig (Original) amoxicillin 875 mg / clavulanate 125 mg oral tablet (4 sources) Penicillin-class Antibacterial Start: 03-20-2022 End: 04-21-2022 amoxicillin-clavu lanic acid (AUGMENTIN) 875-125 mg per tablet aspirin 81 mg delayed release oral tablet (15 sources) Platelet Aggregation Inhibitor, Nonsteroidal Anti-inflammatory Drug Start: 08-17-2019 End: 02-29-2024 take 1 tablet by mouth once daily Aspirin (Aspir-81) 81 mg Tablet,Delayed Release (Dr/Ec) Discontinued 81 mg PO DAILY September 18, 2020 12:00am February 29, 2024 9:48am dicyclomine hydrochloride 10 mg oral capsule (14 sources) Anticholinergic Start: 09-18-2020 End: 02-29-2024 take 1 capsule by mouth twice daily as needed Dicyclomine 10 mg Capsule Discontinued 10 mg PO TWICE A DAY as needed for ibs September 18, 2020 12:00am February 29, 2024 9:48am Start: 07-25-2020 End: 09-06-2020 dicyclomine 20 mg oral table t Dose [...] none, # 270 cap(s), 3 Refill(s), Pharmacy: [facility] #[id number], 190, cm, 04/25/21 7:55:00 EST, Height, kg, 04/25/21 7:55:00 EST, Dosing Weight Start Date: 05/07/21 Status: Ordered Start: 05-07-2021 take 3 capsules by m outh once daily FLUoxetine 20 mg oral capsule See Instructions, TAKE 3 CAPSULES BY MOUTH EVERY DAY, # 270 cap(s), 3 Refill(s), Pharmacy: [facility] #[id number], 190, cm, 04/25/21 7:55:00 EST, Height, kg, 04/25/21 7:55:00 EST, Dosing Weight Start Date: 05/07/21 Status: Ordered Start: 01-14-2021 take 3 capsules by m outh once daily FLUoxetine 20 mg oral capsule See Instructions, TAKE 3 CAPSULES BY MOUTH EVERY DAY, # 270 cap(s), 1 Refill(s), Pharmacy: [facility] #[id number], 190.5, cm, 12/18/20 9:07:00 EDT, Height, kg, [...] once daily. hydroCHLOROthiazide 25 mg oral tablet (12 sources) Thiazide Diuretic Start : 09-18 End: [...] 1400, Refrigerate lisinopril 10 mg oral tablet (11 sources) Angiotensin Converting Enzyme Inhibitor Start : [...] nausea/vomiting. pravastatin sodium 20 mg oral tablet (16 sources) HMG-CoA Reductase Inhibitor Start: 09-19-19 End: [...] chloride 9 mg/ml injection (2 sources) Start: 025 End: 025 take 50 mL intravenously every hour 50 [...] QID, # 120 tab(s), 8 Refill(s), Pharmacy: [facility] #[id number], Epigastric pain Gastroenteritis, 187.5, cm, 07/25/24 7:53:00 EDT, Height, kg, 07/25/24 7:53:00 EDT, Dosing Weight Start Date: 08/03/24 Stop Date: 04/30/25 Status: Ordered Quantity: 120.0 Unit: tab(s) Repeat number: 9 Indications: Epigastric pain; Gastroduodenitis, unspecified, without bleeding; Start: 12-28-2023 End: 06-25-2024 Carafate 1 g oral tablet Dos e : 1 gram(s) = 1 tab(s), Oral, QID, # 120 tab(s), 5 Refill(s), Pharmacy: [facility] #[id number], Epigastric pain Gastroenteritis, 190.5, cm, 12/14/23 14:09:00 EDT, Height, kg, 12/14/23 14:09:00 EDT, Dosing Weight Start Date: 12/28/23 Stop Date: 06/25/24 Status: Ordered Start: 10-01-2023 End: 10-31-2023 Carafate 1 g oral tablet Dos e : 1 gram(s) = 1 tab(s), Oral, QID, # 120 tab(s), 0 Refill(s), Pharmacy: [facility] #[id number], Epigastric pain Gastroenteritis, 189.5, cm, 10/01/23 13:45:00 EDT, Height, kg, 10/01/23 13:45:00 EDT, Dosing Weight Start Date: 10/01/23 Stop Date: 10/31/23 Status: Ordered Start: 10-01-2023 take 1 tablet by marcus th four times daily Problems Active Problems Problem Classification Problem Date [...] Onset: 4 07-16-2022 Episodic Nonspecific chest pain (2 sources) Atypical chest pain; Translations: [Other chest pain] Onset: 5 Episodic Osteoarthritis (20 sources) Degenerative joint disease involving multiple joints; Translations: [Polyosteoarthritis, unspecified] Onset: 0 Chronic Other bone disease and musculoskeletal deformities (4 sources) Costal chondritis 11-30-2023 Episodic Other circulatory disease (20 sources) History of cerebrovascular accident; Translations: [Personal history of transient ischemic attack (TIA), and cerebral infarction without residual deficits] Onset: 2 09-12-2023 Episodic Other circulatory disease (1 source) H/O: [...] neck 07-25-2024 Episodic Other connective tissue disease (14 sources) Tear of right rotator cuff; Translations: [Unspecified rotator cuff tear or rupture of right shoulder, not specified as traumatic] 11-21-2024 Episodic Other connective tissue disease (1 source) Unspecified rotator cuff tear or rupture of unspecified shoulder, not specified as traumatic; Translations: [Tear of rotator cuff] 02-18-2025 Episodic Other connective tissue disease (1 source) [...] injury, initial encounter] Onset: 5 Episodic Other lower respiratory disease (1 source) Dyspnea, unspecified; Translations: [Dyspnea, unspecified type] Onset: 5 Episodic Other male genital disorders [...] knee] 02-23-2024 Chronic Other non-traumatic joint disorders (17 sources) Shoulder pain; Translations: [Pain in right [...] rhinitis 06-23-2023 Chronic Other upper respiratory disease (11 sources) Hypertrophy of nasal turbinates; Translations: [Hypertrophy of nasal turbinates] 09-25-2020 Episodic Other upper respiratory disease (11 sources) Nasal congestion; Translations: [Nasal congestion] 09-25-2020 Episodic Other upper respiratory disease (11 sources) Deviated nasal septum; Translations: [Deviated nasal [...] codes; unclassified (2 sources) Chill 04-26-2024 Episodic Residual codes; unclassified (1 source) Other specified personal risk factors, not elsewhere classified; Translations: [At risk for side effect of medication] Onset: 5 Episodic Screening and history of mental health and substance abuse codes (1 source) H/O: depression; Translations: [Personal history of other mental disorders] Episodic Skull and face fractures (11 sources) Fractured nasal bones; Translations: [Fracture of nasal bones, initial encounter for closed fracture] 09-25-2020 Episodic Spondylosis; intervertebral disc disorders; other back problems (20 sources) Degeneration of lumbar intervertebral disc; Translations: [Other intervertebral disc degeneration, lumbar region] Onset: 0 07-06-2019 Chronic Sprains and strains (20 sources) Strain of neck muscle; Translations: [Strain of muscle, fascia and tendon at neck level, subsequent encounter] Onset: 2 01-21-2019 Episodic Substance-related disorders (1 source) Opioid withdrawal; Translations: [Opioid use, unspecified with withdrawal] Episodic Thyroid disorders (20 sources) Secondary hypothyroidism; Translations: [Other specified hypothyroidism] Onset: 8 10-23-2017 Chronic Unclassified (3 sources) Finding of thigh 11-01-2021 Unclassified (11 sources) Prescribed medication regimen 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 11-01-2021 Unclassified (9 sources) Patient encounter status 01-07-2022 Unclassified (1 source) OPENED IN ERROR Unclassified (8 sources) M25.511 - Pain in right shoulder,M19.011 - Primary osteoarthritis, right shoulder Unclassified (4 sources) Right shoulder pain Unclassified (4 sources) Primary osteoarthritis of right shoulder Unclassified (1 source) Cough, unspecified; Translations: [Cough, unspecified] Onset: 4 Unclassified (2 sources) Right shoulder pain Unclassified (1 source) neck and right shoulder injury after ilfting 3-4 days ago Onset: 5 Past or Other Problems Problem Classification Problem [...] current use of 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 drug; Translations: [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] Onset: 12-20-2021 Episodic Other aftercare (20 sources) Prescribed medication regimen 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; 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] Onset: 12-09-2022 [...] unspecified; Translations: [Generalized pain] Onset: 10-06-2024 Episodic Skin and subcutaneous tissue infections (20 sources) Pilonidal cyst with abscess; Translations: [Pilonidal cyst with abscess] Onset: 06-06-2010 06-06-2010 Episodic Spondylosis; intervertebral disc disorders; other back problems (20 sources) Chronic low back pain; Translations: [Lumbar radiculopathy] Onset: 03-26-2020 07-13-2017 Episodic Superficial injury; contusion (20 sources) Contusion of hip; Translations: [Contusion of right hip region] Onset: 12-09-2022 08-30-2021 Episodic Syncope (1 source) Syncope and collapse; Translations: [Syncope and collapse] Onset: 05-16-2024 Episodic Unclassified (1 source) Cough, unspecified; Translations: [Cough, unspecified] Onset: 02-02-2024 Results Test Name Value Interpretation Reference Range Facility ED NOTEon 02-27-2025 ED NOTE HNO ID: [id number] Author: WALTER LESTER RN Service: Emergency Medicine Author Type: Registered Nurse Type: ED Notes Filed: 02/27/2025 00:36 Note Text: Reviewed dc orders with pt, no new scripts. Pt and family verbalized understanding denies any further needs , ambulatory with steady gait for dc home per family Normal [facility] ED NOTE HNO ID: [id number] Author: WALTER LESTER, RN Service: Emergency Medicine Author Type: Registered Nurse Type: ED Notes Filed: 02/27/2025 00:35 Note Text: Ingris [place] at bedside to talk with pt and family about results. Normal [facility] ED PROV NOTEon 02-27-2025 ED PROV NOTE HNO ID: [id number] Author: GINO WOODS MD Service: Emergency Medicine Author Type: Physician Type: ED Provider Notes Filed: 02/27/2025 06:03 Note Text: ED Provider Note Patient Name: Tate Baltazar : 1975 SERVICE DATE: 02/26/25 History Patient presents with: Chest Pain Headache Shortness of Breath Patient with history of multimedical problems, presents to the emergency department with his family, for concerns over possible adverse reaction to his new medication. Patient has long-term shoulder problems, he has upcoming shoulder rotator cuff repair surgery he was recently placed on amitriptyline, prednisone 2 days ago for pain control. The last 2 nights after taking the above patient notes he was having chest pain difficulty in breathing. Patient has similar episode last evening 1/2-hour after taking his medications which seemed to resolve. Symptoms returned again tonight again half an hour after taking his nighttime medications however they continued and patient presented to the ER. Patient took nothing prior to coming to the emergency department. Chest Pain Pain location: Substernal area Pain quality: no pressure Pain radiates to: Does not radiate Pain severity: Mild Onset quality: Gradual Duration: 30 minutes Timing: Intermittent Progression: Worsening Chronicity: recurrent past 2 nights after taking nightime meds. Context: at rest Context comment: After takling nightime medications Ineffective treatments: None tried Associated symptoms: shortness of breath Associated symptoms: no anxiety, no back pain, no cough, no heartburn, no nausea and no vomiting Risk factors: no prior DVT/PE PAST MEDICAL HISTORY Diagnosis Date Back pain Concussion May 2024- [facility] - admitted Depression Dysphagia due to recent stroke 10/20/2017 [...] Onset Prostate Cancer Father Hypertension Father Social History[1] ALLERGIES Allergen Reactions Hydrochlorothiazide Other: See Comments Sulfamethoxazole-Tr* Unknown, Other: See Comments Acetaminophen Other: See Comments Rebound headaches Acetaminophen-Codei* Unknown Doxycycline Hives Fentanyl Itching, Other: See Comments Jittery Hydrocodone Other: See Comments Ibuprofen Other: See Comments Reported by patient and spouse that patient cannot take this medication due to stroke history and was advised to avoid it Amite Juice Unknown Amite Oil Hives, Other: See Comments Pseudoephedrine Unknown Vicodin [Hydrocodon* Mental Status Change, Itching Aripiprazole Mental Status Change Review of Systems Respiratory: Positive for shortness of breath. Negative for cough. Cardiovascular: Positive for chest pain. Gastrointestinal: Negative for heartburn, nausea and vomiting. Musculoskeletal: Negative for back pain. Physical Exam Vitals [02/26/252057] BP Pulse Temp Temp src Resp SpO2 Weight Height 99/58 74 36.2 ?C (97.1 ?F) Temporal 18 95 % 121.6 kg (268 lb) 1.905 m (6' 3) Physical Exam Vitals and nursing note reviewed. Constitutional: General: He is not in acute distress. Appearance: Normal appearance. He is not ill-appearing or toxic-appearing. HENT: Head: Normocephalic and atraumatic. Eyes: General: Right eye: No discharge. Left eye: No discharge. Neck: Thyroid: No thyromegaly. Vascular: No JVD. Cardiovascular: Rate and Rhythm: Normal rate and regular rhythm. Pulses: Radial pulses are 2+ on the right side and 2+ on the left side. Heart sounds: Normal heart sounds. Heart sounds not distant. No murmur heard. Pulmonary: Effort: Pulmonary effort is normal. No respiratory distress. Breath sounds: Normal breath sounds. No decreased breath sounds or wheezing. Chest: Chest wall: No mass, tenderness or edema. Comments: No chest rash Musculoskeletal: Cervical back: Normal range of motion and neck supple. Right lower leg: No tenderness. Edema present. Left lower leg: No tenderness. Edema present. Comments: Symmetric lower extremity edema bilateral, faint Lymphadenopathy: Cervical: No cervical adenopathy. Skin: General: Skin is warm and dry. Neurological: Gener (more content not included)... Normal [facility] ALLIED HEALTHon 02-26-2025 ALLIED HEALTH HNO ID: [id number] Author: DARLING LOPEZ RT(Amisha) Service: ? Author Type: Technologist Type: Allied Health Filed: 02/26/2025 22:24 Note Text: Radiology Service Progress Note PATIENT NAME: Tate Baltazar DATE OF SERVICE: February 26, 2025 TIME: 10:24 PM PATIENT IDENTITY VERIFICATION COMPLETED USING TWO (2) IDENTIFIERS: Name and Date of confirmed by patient verbally. FALL SCREENING: Has the patient had 2 falls in the last year or 1 fall with injury or currently using an Ambulatory Assistive Device (Walker, Cane, Wheelchair, Crutches, etc.)? No PATIENT GENDER DATA: Assigned male at PATIENT RELEVANT IMPLANT DATA REVIEWED: Not Applicable PATIENT PRESENTS WITH AN IMPLANTABLE OR ATTACHED MATERIAL REPROCESSING ASSOCIATE: No RADIOLOGY DEPARTMENT: General X-ray: Exam(s) Completed: Chest X-Ray PERIPHERAL IV DATA: Not applicable SIGNED BY: RT Laci(Amisha) February 26, 2025 10:24 PM Normal [facility] CBC W Auto Differential pane l (Bld)on 02-26-2025 Basophils (Bld) [#/Vol] 0.04 10*3/uL Normal <0.11 [facility] Comment on above: Order Comment: Rondai anastacia Type: BLOOD SPECIMENOrdering Facility: [facility] Address: [address] [place] [address] Performed By: #### 5 7021-8 ####[facility] LABCLIA [id number] [place] [address] [place] Basophils/100 WBC (Bld) 0.5 % Normal [facility] Comment on above: Order Comment: Speci men Type: BLOOD SPECIMENOrdering Facility: [facility] Address: [address] [place] [address] Performed By: #### 5 7021-8 ####[facility] [place] LABCLIA [id number] [facility] [place] [address] [facility] Differential cell count method Nom (Bld) Auto Normal [facility] Comment on above: Order Comment: Speci men Type: BLOOD SPECIMENOrdering Facility: [facility] Address: [address] [place] [address] Performed By: #### 5 7021-8 ####[facility] [place] LABCLIA [id number] [facility] [place] [address] [facility] Eosinophils (Bld) [#/Vol] 0.07 10*3/uL Normal <0.46 [facility] Comment on above: Order Comment: Speci men Type: BLOOD SPECIMENOrdering Facility: [facility] Address: [address] [place] [address] Performed By: #### 5 7021-8 ####[facility] [place] LABCLIA [id number] [facility] [place] [address] [facility] Eosinophils/100 WBC (Bld) 0.9 % Normal [facility] Comment on above: Order Comment: Speci men Type: BLOOD SPECIMENOrdering Facility: [facility] Address: [address] [place] [address] Performed By: #### 5 7021-8 ####[facility] [place] LABCLIA [id number] [place] [address] [facility] Erythrocyte distribution width (RBC) [Ratio] 14.7 % Normal 11.5-15.0 [facility] Comment on above: Order Comment: Speci men Type: BLOOD SPECIMENOrdering Facility: [facility] Address: [address] [place] [address] Performed By: #### 5 7021-8 ####[facility] LABCLIA [id number] [facility] [place] [address] [facility] Hematocrit (Bld) [Volume fraction] 34.6 % Low 39.0-51.0 [facility] Comment on above: Order Comment: Speci men Type: BLOOD SPECIMENOrdering Facility: [facility] Address: [address] [place] [address] Performed By: #### 5 7021-8 ####[facility] LABCLIA [id number] [facility] [place] [address] [place] Hemoglobin (Bld) [Mass/Vol] 11.5 g/dL Low 13.0-17.0 [facility] Comment on above: Order Comment: Speci men Type: BLOOD SPECIMENOrdering Facility: [facility] Address: [address] [place] [address] Performed By: #### 5 7021-8 ####[facility] [place] LABCLIA [id number] [place] [address] [place] Immature granulocytes (Bld) [#/Vol] 0.07 10*3/uL Normal <0.10 [facility] Comment on above: Order Comment: Speci men Type: BLOOD SPECIMENOrdering Facility: [facility] Address: [address] [place] [address] Performed By: #### 5 7021-8 ####[facility] [place] LABCLIA [id number] [place] [address] [place] Immature granulocytes/100 WBC (Bld) 0.9 % Normal [facility] Comment on above: Order Comment: Speci men Type: BLOOD SPECIMENOrdering Facility: [facility] Address: [address] [place] [address] Performed By: #### 5 7021-8 ####[facility] [place] LABCLIA [id number] [place] [address] [place] Lymphocytes (Bld) [#/Vol] 1.82 10*3/uL Normal 1.00-4.00 [facility] Comment on above: Order Comment: Speci men Type: BLOOD SPECIMENOrdering Facility: [facility] Address: [address] [place] [address] Performed By: #### 5 7021-8 ####[facility] [place] LABCLIA [id number] [place] [address] [place] [facility] Lymphocytes/100 WBC (Bld) 22.8 % Normal [facility] Comment on above: Order Comment: Speci men Type: BLOOD SPECIMENOrdering Facility: [facility] Address: [address] [place] [address] Performed By: #### 5 7021-8 ####[facility] [place] LABCLIA [id number] [place] [address] [facility] MCH (RBC) [Entitic mass] 30.0 pg Normal 26.0-34.0 [facility] Comment on above: Order Comment: Speci men Type: BLOOD SPECIMENOrdering Facility: [facility] Address: [address] [place] [address] Performed By: #### 5 7021-8 ####[facility] LABCLIA [id number] [address] [place] [facility] MCHC (RBC) [Mass/Vol] 33.2 g/dL Normal 30.5-36.0 [facility] Comment on above: Order Comment: Speci men Type: BLOOD SPECIMENOrdering Facility: [facility] Address: [address] [place] [address] Performed By: #### 5 7021-8 ####[facility] LABCLIA [id number] [place] [address] [place] MCV (RBC) [Entitic vol] 90.3 fL Normal 80.0-100.0 [facility] Comment on above: Order Comment: Speci men Type: BLOOD SPECIMENOrdering Facility: [facility] Address: [address] [place] [address] Performed By: #### 5 7021-8 ####[facility] LABCLIA [id number] [place] [address] [facility] Monocytes (Bld) [#/Vol] 0.38 10*3/uL Normal <0.87 [facility] Comment on above: Order Comment: Speci men Type: BLOOD SPECIMENOrdering Facility: [facility] Address: [address] [place] [address] Performed By: #### 5 7021-8 ####[facility] [place] LABCLIA [id number] [facility] [place] [address] [place] Monocytes/100 WBC (Bld) 4.8 % Normal [facility] Comment on above: Order Comment: Speci men Type: BLOOD SPECIMENOrdering Facility: [facility] Address: [address] [place] [address] Performed By: #### 5 7021-8 ####[facility] [place] LABCLIA [id number] [facility] [place] [address] [place] Neutrophils (Bld) [#/Vol] 5.61 10*3/uL Normal 1.45-7.50 [facility] Comment on above: Order Comment: Speci men Type: BLOOD SPECIMENOrdering Facility: [facility] Address: [address] [place] [address] Performed By: #### 5 7021-8 ####[facility] [place] LABCLIA [id number] [facility] [place] [address] [place] Neutrophils/100 WBC (Bld) 70.1 % Normal [facility] Comment on above: Order Comment: Speci men Type: BLOOD SPECIMENOrdering Facility: [facility] Address: [address] [place] [address] Performed By: #### 5 7021-8 ####[facility] [place] LABCLIA [id number] [facility] [place] [address] [place] Nucleated RBC (Bld) [#/Vol] Normal [facility] Comment on above: Order Comment: Speci men Type: BLOOD SPECIMENOrdering Facility: [facility] Address: [address] [place] [address] Performed By: #### 5 7021-8 ####[facility] [place] LABCLIA [id number] [facility] [place] [address] [place] Nucleated RBC/100 WBC (Bld) [Ratio] Normal [facility] Comment on above: Order Comment: Speci men Type: BLOOD SPECIMENOrdering Facility: [facility] Address: [address] [place] [address] Performed By: #### 5 7021-8 ####[facility] [place] LABCLIA [id number] [facility] [place] [address] [place] Platelet mean volume (Bld) [Entitic vol] 9.7 fL Normal 9.0-12.7 [facility] Comment on above: Order Comment: Speci men Type: BLOOD SPECIMENOrdering Facility: [facility] Address: [address] [place] [address] Performed By: #### 5 7021-8 ####[facility] LABCLIA [id number] [facility] [address] [place] Platelets (Bld) [#/Vol] 213 10*3/uL Normal 150-400 [facility] Comment on above: Order Comment: Speci men Type: BLOOD SPECIMENOrdering Facility: [facility] Address: [address] [place] [address] Performed By: #### 5 7021-8 ####[facility] LABCLIA [id number] [facility] [place] [address] [place] RBC (Bld) [#/Vol] 3.83 10*6/uL Low 4.20-6.00 [facility] Comment on above: Order Comment: Speci men Type: BLOOD SPECIMENOrdering Facility: [facility] Address: [address] [place] [address] Performed By: #### 5 7021-8 ####[facility] [place] LABCLIA [id number] [facility] [place] [address] [place] WBC (Bld) [#/Vol] 7.99 10*3/uL Normal 3.70-11.00 [facility] Comment on above: Order Comment: Speci men Type: BLOOD SPECIMENOrdering Facility: [facility] Address: [address] [place] [address] Performed By: #### 5 7021-8 ####[facility] [place] LABCLIA [id number] [place] [address] [facility] Comprehensive metabolic 2000 panelon 02-26-2025 Albumin [Mass/Vol] 3.7 g/dL Low 3.9-4.9 [facility] Comment on above: Order Comment: Speci men Type: BLOOD SPECIMENOrdering Facility: [facility] Address: [address] [place] [address] Performed By: #### 3 3762-6, 3040-3, 56542-3 ####[facility] [place] LABCLIA [id number] [place] [address] [place] ALP [Catalytic activity/Vol] 73 U/L Normal 38-113 [facility] Comment on above: Order Comment: Speci men Type: BLOOD SPECIMENOrdering Facility: [facility] Address: [address] [place] [address] Performed By: #### 3 3762-6, 3040-3, 53932-7 ####[facility] [place] LABCLIA [id number] [place] [facility] [place] [address] [place] ALT With P-5'-P [Catalytic activity/Vol] 33 U/L Normal 10-54 [facility] Comment on above: Order Comment: Speci men Type: BLOOD SPECIMENOrdering Facility: [facility] Address: [address] [place] [address] Performed By: #### 3 3762-6, 3040-3, 03772-4 ####[facility] [place] LABCLIA [id number] [place] [address] [place] Anion gap [Moles/Vol] 14 mmol/L Normal 8-15 [facility] Comment on above: Order Comment: Speci men Type: BLOOD SPECIMENOrdering Facility: [facility] Address: [address] [place] [address] Performed By: #### 3 3762-6, 3040-3, 68330-1 ####[facility] [place] LABCLIA [id number] [place] [address] [place] AST With P-5'-P [Catalytic activity/Vol] 30 U/L Normal 14-40 [facility] Comment on above: Order Comment: Speci men Type: BLOOD SPECIMENOrdering Facility: [facility] Address: [address] [place] [address] Performed By: #### 3 3762-6, 3040-3, 40853-5 ####[facility] [place] LABCLIA [id number] [facility] [place] [address] [place] Bilirubin [Mass/Vol] 0.3 mg/dL Normal 0.2-1.3 [facility] Comment on above: Order Comment: Speci men Type: BLOOD SPECIMENOrdering Facility: [facility] Address: [address] [place] [address] Performed By: #### 3 3762-6, 3040-3, 56181-9 ####[facility] [place] LABCLIA [id number] [facility] [place] [address] [place] Calcium [Mass/Vol] 8.7 mg/dL Normal 8.5-10.2 [facility] Comment on above: Order Comment: Speci men Type: BLOOD SPECIMENOrdering Facility: [facility] Address: [address] [place] [address] Performed By: #### 3 3762-6, 3040-3, 08039-2 ####[facility] [place] LABCLIA [id number] [facility] [place] [address] [place] Chloride [Moles/Vol] 102 mmol/L Normal 98-107 [facility] Comment on above: Order Comment: Speci men Type: BLOOD SPECIMENOrdering Facility: [facility] Address: [address] [place] [address] Performed By: #### 3 3762-6, 3040-3, 66088-9 ####[facility] [place] LABCLIA [id number] [place] [facility] [place] [address] [place] CO2 [Moles/Vol] 19 mmol/L Low 22-30 [facility] Comment on above: Order Comment: Speci men Type: BLOOD SPECIMENOrdering Facility: [facility] Address: [address] [place] [address] Performed By: #### 3 3762-6, 3040-3, 26994-3 ####[facility] [place] LABCLIA [id number] [place] [address] [place] Creatinine [Mass/Vol] 1.12 mg/dL Normal 0.73-1.22 [facility] Comment on above: Order Comment: Speci men Type: BLOOD SPECIMENOrdering Facility: [facility] Address: [address] [place] [address] Performed By: #### 3 3762-6, 0-3, ####[facility] LABCLIA [id number] [place] [address] [place] eGFRcr SerPlBld CKD-EPI 2020 82 mL/min/1.73m??? Normal >=60 [facility] Comment on above: Order Comment: Speci men Type: BLOOD SPECIMENOrdering Facility: [facility] Address: [address] [place] [address] Result Comment: Gladis mated Glomerular Filtration Rate [...] reflect actual GFR. Performed By: #### 3 3762-6, 3040-3, 45571-7 ####[facility] LABCLIA [id number] [place] [address] [place] Glucose [Mass/Vol] 205 mg/dL High 74-99 [facility] Comment on above: Order Comment: Speci men Type: BLOOD SPECIMENOrdering Facility: [facility] Address: [address] [place] [address] Result Comment: The [place] Diabetes Association (ADA) provides guidance for cutoff [...] Standards of Medical Care in Diabetes 2016, [employer] Diabetes Association. Diabetes Care. 2016.39(Suppl 1). Performed By: #### 3 3762-6, 3040-3, 40907-1 ####[facility] LABCLIA [id number] [place] [address] [place] Potassium [Moles/Vol] 3.8 mmol/L Normal 3.7-5.1 [facility] Comment on above: Order Comment: [facility] Type: BLOOD SPECIMENOrdering Facility: [facility] Address: [address] [place] [address] Performed By: #### 3 3762-6, 3040-3, 26307-8 ####[facility] LABCLIA [id number] [place] [address] [place] Protein [Mass/Vol] 5.7 g/dL Low 6.3-8.0 [facility] Comment on above: Order Comment: Birt galaviz Type: BLOOD SPECIMENOrdering Facility: [facility] Address: [address] [place] [address] Performed By: #### 3 3762-6, 3040-3, 94841-3 ####[facility] LABCLIA [id number] [place] [address] [place] Sodium [Moles/Vol] 135 mmol/L Low 136-144 [facility] Comment on above: Order Comment: Brit galaviz Type: BLOOD SPECIMENOrdering Facility: [facility] Address: [address] [place] [address] Performed By: #### 3 3762-6, 3040-3, 96957-9 ####[facility] [place] LABCLIA [id number] [facility] [address] [facility] Urea nitrogen [Mass/Vol] 9 mg/dL Normal 9-24 [facility] Comment on above: Order Comment: Speci men Type: BLOOD SPECIMENOrdering Facility: [facility] Address: [address] [place] [address] Performed By: #### 3 3762-6, 3040-3, 34652-7 ####[facility] [place] LABCLIA [id number] [facility] [place] [address] [facility] ED NOTEon 02-26-2025 ED NOTE HNO ID: [id number] Author: WALTER LESTER RN Service: Emergency Medicine Author Type: Registered Nurse Type: ED Notes Filed: 02/26/2025 23:41 Note Text: Pt's came to desk asking can he get something for his headache, he has a really bad headache. Advised that I would let Dr. Woods know as soon as he was done in another pt's room. Pt resting on cart with eyes closed. Resps even non labored. Normal [facility] ED NOTE HNO ID: [id number] Author: WALTER LESTER, RN Service: Emergency Medicine Author Type: Registered Nurse Type: ED Notes Filed: 02/26/2025 21:09 Note Text: Pt to ED with c/o I think I am having a reaction to nortrypiline that I was started on last night. I have a headache and my chest hurts and I feel short of breath that started 30 minutes after I took them pt able to speak in full sentences without distress. Has taken all of his night time meds. Pt now resting on cart with eyes closed, resps even non labored, no distress noted. Monitor RSR, EKG done Normal [facility] EKGon 02-26-2025 Electrocardiogram Ventricular Rate : 6 7 BPM Atrial Rate : 67 BPM P-R Interval : 164 ms QRS Duration : 106 ms Q-T Interval : 390 ms QTC Calculation(Bazett) : 412 ms Calculated P [place] : 30 degrees Calculated R [place] : -5 degrees Calculated T [place] : 18 degrees no stemi NORMAL SINUS RHYTHM LOW VOLTAGE QRS BORDERLINE ECG NO PREVIOUS ECGS AVAILABLE Confirmed by GINO WOODS MD ([id number]) on 02/27/2025 6:02:37 AM NAME : TATE BALTAZAR PID : [id number] : 1975 Gender : Male Race : ORD : Procedure Date : Feb 26 2025 21:02:16 Edit Date : Feb 27 2025 06:02:41 Diagnosis: no stemi NORMAL SINUS RHYTHM LOW VOLTAGE QRS BORDERLINE ECG NO PREVIOUS ECGS AVAILABLE Confirmed by GINO WOODS MD ([id number]) on 02/27/2025 6:02:37 AM Test Reason : Location : 150 : [place] Overread By : GINO WOODS MD Edited By : GINO WOODS MD Referred By : , Acquired by : RUCHI PATEL [facility] HIGH SENSITIVITY TROPONIN To n 02-26-2025 Troponin T.cardiac High sensitivity method [Mass/Vol] 16 ng/L High <12 [facility] Comment on above: Order Comment: Speci men Type: BLOOD SPECIMENOrdering Facility: [facility] Address: [address] [place] [address] Performed By: #### H STNT ####[facility] LABIA [id number] [place] [address] [place] Lipase SerPl-cCncon 02-27-20 25 Lipase [Catalytic activity/Vol] 29 U/L Normal 16-61 [facility] Comment on above: Order Comment: Rondai men Type: BLOOD SPECIMENOrdering Facility: [facility] Address: [address] [place] [address] Performed By: #### 3 3762-6, 3040-3, 48247-5 ####[facility] LABCLIA [id number] [place] [id number] [place] NT-proBNP SerPl-ncon 02-26 Natriuretic peptide.B prohormone N-Terminal [Mass/Vol] 128 pg/mL High <125 [facility] Comment on above: Order Comment: Speci men Type: BLOOD SPECIMENOrdering Facility: [facility] Address: [address] [place] [address] [place] [address] Performed By: #### 3 3762-6, 3040-3, 43921-2 ####[facility] LABS[facility] [id number] [place] [address] [facility] XR CHEST 1V FRONTALon 2024 XR CHEST 1V FRONTAL * * *Final Report* * * DATE OF EXAM: Feb 26 2025 10:20PM LDX 5290 - XR CHEST 1V FRONTAL / PROCEDURE REASON: Shortness of breath * * * * Physician Interpretation * * * * EXAMINATION: CHEST RADIOGRAPH (SINGLE VIEW AP OR PA) CLINICAL HISTORY: Shortness of breath MQ: XC1_5 Comparison: 04/20/2024. RESULT: Lines, tubes, and devices: None. Lungs and pleura: There is hypoinflation of the lungs with crowded lung markings in both lung bases. No consolidation. No lung mass. No pleural effusion. Cardiomediastinal silhouette: Stable cardiomediastinal silhouette. Other: The visualized bony thorax appears unremarkable. IMPRESSION: Stable exam with no definite acute radiographic abnormality. Technical Documentation Specialist: PSCB Transcribe Date/Time: Feb 26 2025 10:44P Dictated by : LYDIA HARTMAN MD This examination was interpreted and the report reviewed and electronically signed by: LYDIA HARTMAN MD on Feb 26 2025 10:45PM EST [id number] Normal [facility] Basic Metabolic Profile (BMP )on 02-23-2025 BUN/CRE 7.4 RATIO Low 03-06 [facility] Comment on above: Performed By: #### L 500.2500, L100.0500 ####[facility] [address] [place], [address] Calcium [Mass/Vol] 9.1 mg/dL Normal 7.6-11.0 [facility] Comment on above: Performed By: #### L 500.2500, L100.0500 ####[facility] [address] [place], [address] Chloride [Moles/Vol] 108 mmol/L Normal 98-108 [facility] Comment on above: Performed By: #### L 500.2500, L100.0500 ####[facility] [address] [place], [address] CO2 [Moles/Vol] 22.8 mmol/L Normal 21.0-32.0 [facility] Comment on above: Performed By: #### L 500.2500, L100.0500 ####[facility] [address] [place], [address] Creatinine [Mass/Vol] 1.09 mg/dL Normal 0.70-1.20 [facility] Comment on above: Performed By: #### L 500.2500, L100.0500 ####[facility] [address] [place], [address] GAP 10 Normal 5-15 [facility] Comment on above: Performed By: #### L 500.2500, L100.0500 ####[facility] [address] [place], [address] GFR/1.73 sq M.predicted among non-blacks MDRD (S/P/Bld) [Vol rate/Area] 84 mL/min/{1.73_m2} Normal >60 [facility] Comment on above: Result Comment: mL/m in/1.73m2 CKD-EPI Creatinine Equation (2020) Performed By: #### L 500.2500, L100.0500 ####[facility] [address] [place], [address] Glucose [Mass/Vol] 93 mg/dL Normal 70-99 [facility] Comment on above: Performed By: #### L 500.2500, L100.0500 ####[facility] [address] [place], [address] Potassium [Moles/Vol] 4.1 mmol/L Normal 3.3-5.1 [facility] Comment on above: Performed By: #### L 500.2500, L100.0500 ####[facility] [address] [place], [address] Sodium [Moles/Vol] 140 mmol/L Normal 133-145 [facility] Comment on above: Performed By: #### L 500.2500, L100.0500 ####[facility] [address] [place], [address] Urea nitrogen [Mass/Vol] 8 mg/dL Normal 4-19 [facility] Comment on above: Performed By: #### L 500.2500, L100.0500 ####[facility] [address] [place], [address] CBC-Complete Blood Cnt No Di ffon 02-23-2025 Erythrocyte distribution width (RBC) [Ratio] 14.2 % Normal 11.6-14.6 [facility] Comment on above: Performed By: #### L 500.2500, L100.0500 ####[facility] [address] [place], [address] Hematocrit (Bld) [Volume fraction] 37.3 % Low 40-54 [facility] Comment on above: Performed By: #### L 500.2500, L100.0500 ####[facility] [address] [place], [address] Hemoglobin (Bld) [Mass/Vol] 13.0 g/dL Normal 13.0-16.5 [facility] Comment on above: Performed By: #### L 500.2500, L100.0500 ####[facility] [address] [place], [address] MCH (RBC) [Entitic mass] 30.3 pg Normal 27.0-32.0 [facility] Comment on above: Performed By: #### L 500.2500, L100.0500 ####[facility] [address] [place], [address] MCHC (RBC) [Mass/Vol] 34.9 g/dL Normal 32-36 [facility] Comment on above: Performed By: #### L 500.2500, L100.0500 ####[facility] [address] [place], [address] MCV (RBC) [Entitic vol] 86.9 fL Normal 80-94 [facility] Comment on above: Performed By: #### L 500.2500, L100.0500 ####[facility] [address] [place], [address] Platelet mean volume (Bld) [Entitic vol] 9.6 fL Normal 6.2-12.0 [facility] Comment on above: Performed By: #### L 500.2500, L100.0500 ####[facility] [address] [place], [address] Platelets (Bld) [#/Vol] 211 10*3/uL Normal 150-450 [facility] Comment on above: Performed By: #### L 500.2500, L100.0500 ####[facility] [address] [place], [address] RBC (Bld) [#/Vol] 4.29 10*6/uL Low 4.6-6.[address] [facility] Comment on above: Performed By: #### L 500.2500, L100.0500 ####[facility] [address] [place], [address] RDW SD 45.6 fl High 35.1-43.9 [facility] Comment on above: Performed By: #### L 500.2500, L100.0500 ####[facility] [address] [place], [address] WBC (Bld) [#/Vol] 5.9 10*3/uL Normal 4.4-11.0 [facility] Comment on above: Performed By: #### L 500.2500, L100.0500 ####[facility] [address] [place], [address] MR/PATMary 02-23-2025 MR/DENIZ.MARISA [facility] Medical Records Department [address] [place] [address] PAT - Anesthesia 02/23/25 1244 MR#: [id number] Acct: [id number] Name: TATE BALTAZAR Rep #: [id number] : 1975 49 From: Shaka Gordon MD PCP: Dr. 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 When Was Last Pacemaker Check QUESTION #4 FULL TEXT: You/Your Family Experience fever (hyperthermia) with Anesthesia Last Oral Intake Last Oral intake: Last Oral Intake NPO since Meds taken in AM with sips of water? Meds patient instructed to take am of surgery PONV PONV - oxygen equipment preparer: PONV - oxygen equipment preparer Female No 02/22/25 09:23 HX of Motion Sickness No 02/22/25 09:23 HX of N/V After Surgery No 02/22/25 09:23 Non-Smoker Yes 02/22/25 09:23 Duration of Surgery greater Yes 02/22/25 09:23 than 60 minutes Number of Risk Factors 2 02/22/25 09:23 PONV Score Moderate Risk 02/22/25 09:23 Height Weight Height Weight: Anesthesia: Height Weight Height 6 ft 10/25/24 10:33 Respiratory Assessment Respiratory Assessment - oxygen equipment preparer: Respiratory Tract Infection Hx - oxygen equipment preparer Hx Respiratory Tract Infection No 02/22/25 09:23 STOP Sleep Apnea STOP Sleep Apnea - oxygen equipment preparer: STOP Sleep Apnea - oxygen equipment preparer Hx Hypertension Yes 02/22/25 09:23 Hx Sleep Apnea Yes 02/22/25 09:23 CPAP Yes: non compliant 02/22/25 09:23 BIPAP No 02/22/25 09:23 Do you snore loudly (louder than talking or can be heard Do you often feel tired/ fatigued/ sleepy during daytime? Has anyone observed you stop breathing during sleep? STOP Results Positive 02/22/25 09:23 QUESTION #5 FULL TEXT : Do you snore loudly (louder than talking or can be heard through closed doors)? 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 Specify any problems Hx of Preganancy in last 3 N/A 02/22/25 09:23 Months Nurse Filling Out Transfusion NBUCHER 02/22/25 09:23 Questions: Date: 02/22/25 02/22/25 09:23 Time: :02/22/25 09:23 Patient unable to answer at this time (ie. confused, unrespo /Reproduction History /Reproductive History - oxygen equipment preparer: /Reproductive Hx- oxygen equipment preparer Hx Now No 02/22/25 09:23 Gestational Age (in weeks): EDC: Hx Hx Para Hx Section SAB No 02/22/25 09:23 [facility] Medical History (Updated 02/22/25 @ 09:37 by Rachel Leo) Preop testing Wears partial dentures Arthritis History of edema Right rotator cuff tear Primary osteoarthritis, right [...] Restless legs Injury of back Stroke/cerebrovascular accident Home Medications ???Medication ???Instructions ???Recorded ???Last Taken ???Type pantoprazole 40 mg tablet,delayed 40 mg PO DAILY 09/18/20 Unknown H istory release tizanidine (more content not included)... Normal [facility] CNOVon 02-22-2025 CNOV Office Visit (ROBBY ) TATE BALTAZAR ([id number]) 1975 M Date Time Provider Department 02/22/25 1:00 PM NURSE PAIN INFUSION SHAUN LUCIO During your visit today, we recorded the following information about you: Pulse Respiration Blood pressure Weight 85/minute 15/minute 158/97 111.1 kg Vernon Moses RN 02/22/2025 12:49 PM Signed Pt presents for repeat Lidocaineinfusion and states 30% benefit for 1 weeks from last infusion. NPO x 6 hours. Pt has dad available to drive pt home post infusion. Pain level 9/10. CLEM Brcieno Sara J, RN 02/22/2025 3:27 PM Signed 1500-Infusion complete. Pt discharged and wheeled to car with dad to drive pt home. Pain level 5/10. CLEM Briceno Jagan, MD 02/22/2025 5:16 PM Signed PROCEDURE: IV Lidocaine infusion Therapy DATE OF SERVICE: February 22, 2025 PREPROCEDURE DIAGNOSES: Chronic pain syndrome Chronic pain [...] at the beginning of the infusion was 9 on a scale from 0 to 10. The patient's pain scale was monitored for the next 15-minute increments. VS were monitored throughout. A total of 107 mg ofLidocaine was administered over 5 minutes followed by a total of 213 milligrams of lidocaine over the next 1 hour The patient was monitored very closely during the entire infusion procedure today. The patient's vital signs remained stable throughout the postoperative period. They were given written instructions to follow up at [facility] in the next 4 to 6 weeks for further plan of care and overall evaluation. COMMENTS: Patient tolerated the infusion without any complications. Allergies As of Date: 02/22/2025 Noted Allergy Reaction HYDROCHLOROTHIAZIDE 05/18/2020 14 - [...] 1 - Mental Status Change Date Reviewed: 02/22/2025 Reviewed by: Vernon Moses RN - Fully Assessed Primary Visit Diagnosis:Chronic pain syndrome [G89.4] Other Visit Diagnoses:Chronic right shoulder pain [M25.511, G89.29] Contusion of right hip region [S70.01XA] Order(s):BCN NURSING COMMUNICATION [[id number]] Order #: [id number]: 1 BCN NURSING COMMUNICATION [[id number]] Order #: [id number]: 1 N NURSING COMMUNICATION [[id number]] Order #: [id number]: 1 BCN NURSING COMMUNICATION [[id number]] Order #: [id number]: 1 [] ondansetron (PF) 8 mg injection (ZOFRAN)Disp: Rfl: [] midazolam (PF) 2 mg injection (VERSED)Disp: Rfl: NaCl 0.9% iv infusionDisp: Rfl: [] lidocaine (PF) 10 mg/mL (1 %) 106.6 mg in NaCl 0.9% 106.6 mL (XYLOCAINE)Disp: Rfl: [] lidocaine (PF) 10 mg/mL (1 %) 213.2 mg in NaCl 0.9% 213.2 mL (XYLOCAINE)Disp: Rfl: Prescriptions as of 02/22/2025 - cyclobenzaprine (FLEXERIL) 5 mg tablet TAKE [...] daily. - zonisamide (ZONEGRAN) 50 mg capsule Ta (more content not included)... [facility] Telephone (ROBBY) TATE BALTAZAR ([id number]) 1975 M Date Time Provider Department 02/21/25 PUNEET MCBRIDE During your visit today, we recorded the following information about you: Allergies As of Date: 02/21/2025 Noted Allergy Reaction HYDROCHLOROTHIAZIDE 05/18/2020 14 - [...] 1 - Mental Status Change Date Reviewed: 02/18/2025 Reviewed by: Justa Peña, RN - Fully Assessed Prescriptions as of 02/22/2025 - cyclobenzaprine (FLEXERIL) 5 mg tablet TAKE [...] disintegrating tablet Problem List As Of Date 02/21/2025 Noted Resolved Pilonidal cyst with abscess [L05.01] [...] shoulder pain [M25.511, G89.29] 11/19/2021 Stiffness of hi (more content not included)... [facility] ED NOTEon 02-18-2025 ED NOTE HNO ID: [id number] Author: DELMY CHUA, RN Service: Nursing Author Type: Registered Nurse Type: ED Notes Filed: 02/18/2025 19:25 Note Text: Patient with his service dog and two other people he was here with left the ED. No explanation was provided. [facility] ED NOTE HNO ID: [id number] Author: JUSTA PEÑA RN Service: ? Author Type: Registered Nurse Type: ED Notes Filed: 02/18/2025 19:08 Note Text: Report to CLEM Landeros [facility] [facility] ED NOTE HNO ID: [id number] Author: JUSTA PEÑA RN Service: ? Author Type: Registered Nurse Type: ED Notes Filed: 02/18/2025 19:03 Note Text: Pt arrives with report of right shoulder pain. Pt report taking Tylenol a couple of hours ago, it wasn't doing anything. Pt is reporting he has surgery scheduled. [facility] ED PROV NOTEon 02-18-2025 ED PROV NOTE HNO ID: [id number] Author: BROWN ALCANTARA MD Service: Emergency Medicine Author Type: Physician Type: ED Provider Notes Filed: 02/18/2025 19:42 Note Text: ED Provider Note Patient Name: Tate Baltazar : 1975 SERVICE DATE: 02/18/25 History Patient presents with: Pain (Shoulder Pain) Tate Baltazar is a 49 year old male with history of multiple chronic medical problems who presents with Pain (Shoulder Pain). Patient took OTC medications and prescription medication prior to arrival. - Symptoms began chronic. - Severity: mild - Timing: constant - Quality: sore - Pain (Shoulder Pain) is exacerbated by movement. - Pain (Shoulder Pain) is not exacerbated by palpation. - Symptoms are associated with previous history of rotator cuff injury and bicep tendon tear with history of surgical repair in the past.. - Symptoms are not associated with new injury. - Improved by nothing. - Not improved by rest, OTC medications, and cold compresses No new injuries scheduled for surgery on the right shoulder in February took a couple Tylenol tablets a few hours ago for pain this is not helping much so he came to the emergency department.. PAST MEDICAL HISTORY Diagnosis Date - Back pain - Concussion May [facility]- [facility] - admitted - Depression - Dysphagia due to recent stroke 10/20/2017 - Hypertension - Migraines 2000 - Obesity, Class I, BMI 30-34.9 06/01/2023 - JANNETTE (obstructive sleep apnea) 03/17/2019 - Other chronic pain 05/20/2022 - RSD lower limb right leg - RSD upper limb right hand - Stroke due to intracerebral hemorrhage (HCC) 2018 Had an additional stroke at age 25 PAST SURGICAL HISTORY Procedure Laterality Date - APPENDECTOMY - CARPAL TUNNEL Left 2014 - COLONOSCOPY 20's with EGD - EGD TRANSORAL BIOPSY SINGLE/MULTIPLE 10/02/2015 - EXCISION PILONIDAL CYST/SINUS EXTENSIVE 07/05/2010 closed - ORTHOPEDICS SURGERY HX Right 12/2022 Right ROTATOR cUFF - PAST SURGICAL HISTORY OF right knee surgery - TONSILLECTOMY PRIMARY/SECONDARY Tonsillectomy - VASECTOMY UNI/BI SPX W/POSTOP SEMEN EXAMS Bilateral 05/23/2016 FAMILY HISTORY Problem Relation Age of Onset - Prostate Cancer Father - Hypertension Father Social History[1] ALLERGIES Allergen Reactions - Hydrochlorothiazide Other: See Comments - Sulfamethoxazole-Tr* Unknown, Other: See Comments - Acetaminophen Other: See Comments Rebound headaches - Acetaminophen-Codei* Unknown - Doxycycline Hives - Fentanyl Itching, Other: See Comments Jittery - Hydrocodone Other: See Comments - Ibuprofen Other: See Comments Reported by patient and spouse that patient cannot take this medication due to stroke history and was advised to avoid it - Amite Juice Unknown - Amite Oil Hives, Other: See Comments - Pseudoephedrine Unknown - Vicodin [Hydrocodon* Mental Status Change, Itching - Aripiprazole Mental Status Change Review of Systems Constitutional: Negative for chills and fever. Gastrointestinal: Negative for nausea and vomiting. Skin: Negative for rash and wound. Allergic/Immunologic: Negative for environmental allergies, food allergies and immunocompromised state. Neurological: Negative for weakness and numbness. Physical Exam Vitals [02/18/25 1857] BP Pulse Temp Temp src Resp SpO2 Weight Height 143/91 73 36.6 ?C (97.9 ?F) -- 14 97 % 106.6 kg (235 lb) 1.905 m (6' 3) Physical Exam Vitals and nursing note reviewed. Constitutional: General: He is not in acute distress. Appearance: Normal appearance. He is not ill-appearing, toxic-appearing or diaphoretic. Pulmonary: Effort: Pulmonary effort is normal. No respiratory distress. Musculoskeletal: General: No swelling, tenderness or deformity. Comments: Forearm bicep soft no edema distal perfusion and sensation intact. Skin: General: Skin is warm and dry. Capillary Refill: Capillary refill takes less than 2 seconds. Findings: No rash. Neurological: General: No focal deficit present. Mental Status: He is alert and oriented to person, place, and time. Psychiatric: Mood and Affect: Mood normal. Behavior: Behavior normal. Thought Content: Thought content normal. Diagnostic Testing ED Labs Ordered and Reviewed - No data to display Procedures ED Course / Clinical Impression Clinical Impressions as of 02/18/251941 Chronic right shoulder pain MDM / Disposition / Plan Chronic right shoulder pain pending surgery March 08. Patient has multiple medications at home including muscle relaxer he takes Tylenol Lidoderm patches prescribed although he states these do not stick well and he is unable to take NSAIDs secondary to previous stroke. Patient has residual weakness on the right side from stroke. Cannot tolerate wearing a sling because it hurts his neck. No new injuries or falls. He also states he has tried ice for this. Examination reveals no acute injury neurovascular i (more content not included)... Normal [facility] Emergency Department Summary on 02-18-2025 Emergency Department Summary [facility] Medical Records Department [address] [place] [address] Emergency Department Summary 02/18/25 MR#: [id number] Acct: [id number] Name: TATE BALTAZAR Rep #: [id number] : 1975 49 From: Hunter Rizo MD PCP: Dr. Fred Peters, DO Status:DEP ER Location: ED HPI History of Present Illness HPI Narrative: Acute right shoulder pain. History of prior rotator cuff surgery. He reinjured it and tore the repaired rotator cuff and the labrum. He is currently seeing orthopedics he is scheduled for surgery on March 08. 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 He is taking Tylenol as controlling his pain. He denies any recent injury. He denies any fever or swelling to his shoulder. Chief Complaint: Upper Extremity Injury Informant: patient and family Occured/Mechanism Mechanism/Context: No injury and No blunt trauma Onset/Context/Timing Onset: Weeks Context: Gradual Onset Timing: Continuous Quality of Pain: Sharp Current Severity: Moderate Maximum Severity: Moderate Associated Symptoms Associated Symptoms: Negative for Parasthesia, Weakness or Loss of Funtion Narrative Narrative: 49-year-old male who has a known shoulder rotator cuff tear plus a labrum tear seen on a recent MRI. Upcoming orthopedic surgery with Dr. Fred Huber. He had a prior right shoulder repair in the past from a rotator cuff. Basically he is requesting some type of pain control. He has had prior strokes and intracranial bleeds and he states Tylenol is not cutting the pain. Prior similar symptoms: Yes Recent Illness/Hospitalization: No PFSH PFSH Medical History Right rotator cuff tear [...] Restless legs Injury of back Stroke/cerebrovascular accident Home Medications ???Medication ???Instructions ???Recorded ???Last Taken ???Type pantoprazole 40 mg tablet,delayed 40 mg PO DAILY 09/18/20 Unknown H istory release tizanidine 4 mg capsule 8 mg PO QHS 09/18/20 Unknown Histo ry bupropion HCl 300 mg 24 hr tablet, 300 mg PO QDAY 02/29/24 Unknown History extended release cyclobenzaprine 5 mg tablet 5 mg PO TID PRN 02/29/24 Unknown H istory duloxetine 60 mg capsule,delayed 60 mg PO QDAY 02/29/24 Unknown His tory release fexofenadine 180 mg tablet 180 mg PO QDAY 02/29/24 Unknown Hi story gabapentin 100 mg tablet 600 mg PO TID 02/29/24 Unknown His tory mirabegron 25 mg tablet,extended 25 mg PO QDAY 02/29/24 Unknown His tory release 24 hr (Myrbetriq) potassium chloride 20 mEq 40 meq PO DAILY 02/29/24 Unknown H istory tablet,extended release potassium chloride 20 mEq 20 meq PO BID 02/29/24 Unknown His tory tablet,extended release(part/cryst) rimegepant 75 mg disintegrating 75 mg PO QDAY PRN 02/29/24 Unknown History tablet (Nurtec ODT) sucralfate 1 gram tablet 1 g PO 4X/DAY 02/29/24 Unknown His tory tamsulosin 0.4 mg capsule 0.4 mg PO QDAY 02/29/24 Unknown Hi story valsartan 160 mg tablet 160 mg PO QDAY 02/29/24 Unknown Hi story verapamil 120 mg tablet,extended 240 mg PO QHS 02/29/24 Unknown His tory release zonisamide 50 mg capsule 50 mg PO QHS 02/29/24 Unknown Hist ory oxycodone-acetaminophen 5 mg-325 1 tab PO Q8H PRN pain 7 days #15 1 Unknown Rx mg tablet (Percocet) tabs Allergy/AdvReac Type Severity Reaction Status Date / Time fentanyl AdvReac Other Verified 02/18/25 20:05 hydrocodone (From Vicodin) AdvReac Other Verified 02/18/25 20:05 Surgical History S/P rotator cuff repair Hx of cardiac catheterization Hx of colonoscopy History of esophagogastroduodenoscopy (EGD) Hx of vasectomy Hx of arthroscopic knee surgery Hx of tonsillectomy Hx of appendectomy Hx of shoulder surgery Social History household members: spouse and family Smoking Status: Former smoker alcohol intake: current alcohol intake frequency: holidays/special occasions only ROS ROS ED ROS Narrative Denies recent illness. Constitutional Constitutional ED: Denies chills or fever(s) Eyes Eyes: Denies blurry vision ENT ENT ED: Denies ear pain Cardiovascular Cardiovascular: Denies chest pain Respiratory/Chest Respiratory/Chest: Denies cough or dyspnea Gastrointest (more content not included)... Normal [facility] Orthopedic Visit Reporton Orthopedic Visit Report [facility] [facility] [address] [place] [address] OFFICE VISIT Date of Service: 02/09/25 MR#: [id number] Acct: [id number] Name: TATE BALTAZAR Rep #: [id number] : 1975 Provider: Dr. Fred alanis MD Age/Sex: 49/M Location: [facility] Status: Signed Intake [...] 50 mg PO QHS 02/29/24 02/09/25 His tory PFS Medical History Right rotator cuff tear Primary [...] or change to the contour Supplemental Info [facility] Imaging Services [address] [place] [address] Upper Ext Joint Only(Routine) MR#: [id number] Acct: [id number] Name: TATE BALTAZAR Rep #: [id number] : 1975 M 49 From: Omega Russo MD PCP: Dr. Lanette Harkins, DO Status: REG CLI Study: Upper Ext Joint Only(Routine) Date of Exam: 11/15/24 Exam# [id number] Ordering Dr: Fred Huber MD PROCEDURE: UPPER EXT JOINT ONLY(ROUTINE) 11/15/2024 REASON FOR EXAM: PAIN, 2 PRIOR SURGERIES TECHNIQUE: T1, T2, PD, UPPER EXT JOINT ONLY(ROUTINE) Multiplanar and multisequence images were obtained without IV contrast administration. COMPARISON: October 25, 2024 x-ray FINDINGS: Bone Marrow: Suture anchors are noted in the humeral head consistent with codi (more content not included)... Normal [facility] CNPNon 01-24-2025 [facility] Telephone (ROBBY) TATE BALTAZAR ([id number]) 1975 M Date Time Provider Department 01/24/25 [...] hip michelle (more content not included)... Normal [facility] Knee 4 or More Viewson 12-05 Knee 4 or More Views [facility] Imaging Services [address] [place] [address] Knee 4 or More Views MR#: [id number] Acct: [id number] Name: TATE BALTAZAR Rep #: [id number] : 1975 M 49 From: Maico Casillas MD PCP: Dr. Lanette Harkins DO Status: DEP AMB Study: Knee 4 or More Views Date of Exam: 12/05/24 Exam# [id number] Ordering Dr: Fred Huber MD EXAM: XR Right Knee Complete, 4 or More Views CLINICAL INDICATION: PAIN, INJURY 2 DAYS AGO. TECHNIQUE: Four or more views of the right knee. COMPARISON: No relevant prior studies available. FINDINGS: BONES/JOINTS: Unremarkable. No acute fracture. No dislocation. SOFT TISSUES: Unremarkable. RAD/Knee 4 or More Views IMPRESSION: No acute fracture. Reading Location: [facility] CC: Dr. Lanette Harkins DO; Dr. Fred Huber MD Technical Documentation Specialist: Signed Normal [facility] Orthopedic Visit Reporton Orthopedic Visit Report [facility] [address] [place] [address] [address] [place] [address] OFFICE VISIT Date of Service: 12/05/24 MR#: [id number] Acct: [id number] Name: TATE BALTAZAR Rep #: [id number] : 1975 Provider: Dr. Fred alanis MD Age/Sex: 49/M Location: [facility] Status: Signed Intake [...] 50 mg PO QHS 02/29/24 12/05/24 His rachel [facility] Medical History Right rotator cuff tear Primary [...] by me, Dr. Fred Huber MD 12/05/24 0884. Part of today???s visit was documented by [ ], acting as scribe. TATE BALTAZAR is a 49 year old M here today for FU R knee. Was in ED over weekend. This was in [facility] in [place]. He was just getting off the couch [...] visit just the x-ray reports Supplemental Info [facility] Imaging Services [address] [place] [address] Lower Ext Joint Only (Routine) MR#: [id number] Acct: [id number] Name: TATE BALTAZAR Rep #: [id number] : 1975 M 49 From: Mateo Canada DO PCP: Dr. Lanette Harkins DO Status: REG CLI Study: Lower Ext Joint Only (Routine) Date of Exam: 03/19/24 Exam# [id number] Ordering Dr: Fred Huber MD REPORT (more content not included)... [facility] 12-04-2024 ED NOTE HNO ID: [id number] Author: DARÍO SNOW RN Service: Emergency Medicine [...] [facility] ED NOTE HNO ID: [id number] Author: MIGUEL REYES RN Service: Emergency Medicine Author Type: Registered Nurse Type: ED Notes Filed: 12/04/2024 02:09 Note Text: Patient discharge instructions given to patient. Patient educated on discharge instructions. Patient denied having questions at this time regarding discharge instructions. Patient discharged home at this time. [facility] ED NOTE HNO ID: [id number] Author: MIGUEL REYES RN Service: Emergency Medicine Author Type: Registered Nurse Type: ED Notes Filed: 12/04/2024 02:08 Note Text: Patient informed about the name of the medication(s), what the medication(s) is(are) for, and what to expect with/from med administration. Patient given opportunity to ask questions. Medication(s) include: Percocet [facility] ED NOTE HNO ID: [id number] Author: MIGUEL REYES RN Service: Emergency Medicine Author Type: Registered Nurse Type: ED Notes Filed: 12/04/2024 00:59 Note Text: Patient informed about the name of the medication(s), what the medication(s) is(are) for, and what to expect with/from med administration. Patient given opportunity to ask questions. Medication(s) include: Tylenol Normal [facility] ED NOTE HNO ID: [id number] Author: MIGUEL REYES RN Service: Emergency Medicine Author Type: Registered Nurse Type: ED Notes Filed: 12/04/2024 00:50 Note Text: Patient informed about the name of the medication(s), what the medication(s) is(are) for, and what to expect with/from med administration. Patient given opportunity to ask questions. Medication(s) include: Motrin Normal [facility] ED PROV NOTEon 12-04-2024 ED PROV NOTE HNO ID: [id number] Author: LEYLA DODSON DO Service: Emergency Medicine Author Type: Physician Type: ED Provider Notes Filed: 12/06/2024 08:15 Note Text: ED Provider Note Patient Name: Tate Baltazar : 1975 SERVICE DATE: 12/03/24 History Patient presents with: Knee Pain: Right Tate Baltazar is a 49 year old male with history of multiple chronic medical problems who presents with Knee Pain (Right). - Symptoms began this evening. - Severity: moderate - Timing: constant - Quality: sore - Symptoms are associated with right hip and right knee pain. - Symptoms are not associated with right ankle pain, right foot pain, head injury. Patient presents with right knee pain. He states that he stood up and heard a pop in his right knee. He states that he then started to walk and heard a pop again and then he states he started to fall and guided himself to the ground. He states he has some right hip pain. He did not hit his head or pass out. He states he is having difficulty walking and bearing weight on the right lower extremity. He reports prior issues with his right knee in the past. He is not on blood thinners. PAST MEDICAL HISTORY Diagnosis Date Back pain Concussion May [facility] - [facility] Depression Dysphagia due to recent stroke 10/20/2017 Hypertension Migraines 2000 Obesity, Class I, BMI 30-34.9 06/01/2023 JANNETTE [...] Comments Rebound headaches Acetaminophen-Codei* Unknown Doxycycline Hives Fentanyl Itching, Other: See Comments Jittery Hydrocodone Other: See Comments Ibuprofen Other: See Comments Reported by patient and spouse that patient cannot take this medication due to stroke history and was advised to avoid it Amite Juice Unknown Amite Oil Hives, Other: See Comments Pseudoephedrine Unknown Vicodin [Hydrocodon* Mental Status Change, Itching Aripiprazole Mental Status Change Review of Systems Constitutional: Negative for fever. Musculoskeletal: Positive for arthralgias (right knee and hip). Negative for neck pain. Skin: Negative for color change and wound. Neurological: Negative for weakness, numbness and headaches. Psychiatric/Behavioral: Negative for agitation and confusion. Physical Exam Vitals BP Pulse Temp Temp src Resp SpO2 Weight Height 12/03/24 2345 12/03/24 2345 12/03/24 2345 12/03/24 2343 12/03/24 2343 12/03/24 2345 12/03/24 2343 12/03/24 2343 141/106 81 36.5 ?C (97.7 ?F) Temporal 20 97 % 110.7 kg (244 lb) 1.905 m (6' 3) Physical Exam Vitals and nursing note reviewed. Constitutional: Appearance: He is not toxic-appearing or diaphoretic. HENT: Head: Normocephalic and atraumatic. Eyes: Conjunctiva/sclera: Conjunctivae normal. Cardiovascular: Rate and Rhythm: Normal rate and regular rhythm. Pulses: Normal pulses. Pulmonary: Effort: Pulmonary effort is normal. Breath sounds: Normal breath sounds. Musculoskeletal: Cervical back: No tenderness or bony tenderness. Lumbar back: No tenderness or bony tenderness. Right hip: Tenderness present. No deformity. Normal range of motion. Right knee: Swelling present. No deformity, erythema, ecchymosis, lacerations or crepitus. Decreased range of motion. Tenderness present. Normal alignment. Right ankle: No tenderness. Normal range of motion. Normal pulse. Right foot: Normal range of motion and normal capillary refill. No swelling, tenderness or bony tenderness. Normal pulse. Comments: Right knee: Patient has difficulty lifting leg off bed with straight leg/knee extended - ? Difficult to determine if extensor mechanism intact? Skin intact. No overlying cellulitis to the knee. Skin: General: Skin is warm and dry. Capillary Refill: Capillary refill takes less than 2 sec (more content not included)... Normal [facility] XR HIP 3V PELV+ AP/LAT RTon 12-04-2024 [...] AP/LAT RT HISTORY: RT HIP/KNEE PAIN (accession [id number]), rtknee and hip pain (accession [id number]) Hip pain, acute, fx suspected, initial exam. COMPARISON: 05/16/2024 pelvic radiograph RESULT: See Impression. IMPRESSION: Pelvis: No acute fracture or malalignment RIGHT knee: Trace knee joint fluid. No fracture, malalignment. Technical Documentation Specialist: LALA Transcribe Date/Time: Dec 04 2024 2:52A Dictated by : RAFI COLÓN MD This examination was interpreted and the report reviewed and electronically signed by: RAFI COLÓN MD on Dec 04 2024 2:55AM EST [id number] Normal [facility] XR KNEE 2V AP/LAT RTon 12-04 XR KNEE 2V AP/LAT RT * * *Final Report* * * DATE OF EXAM: Dec 04 2024 12:59AM LDX 5207 - XR KNEE 2V AP/LAT RT / PROCEDURE REASON: Trauma * * * * Physician Interpretation * * * * EXAMINATION: XR HIP 3V PELV+ AP/LAT RT, XR KNEE 2V AP/LAT RT HISTORY: RT HIP/KNEE PAIN (accession [id number]), rtknee and hip pain (accession [id number]) Hip pain, acute, fx suspected, initial exam. COMPARISON: 05/16/2024 pelvic radiograph RESULT: See Impression. IMPRESSION: Pelvis: No acute fracture or malalignment RIGHT knee: Trace knee joint fluid. No fracture, malalignment. Technical Documentation Specialist: LALA Transcribe Date/Time: Dec 04 2024 2:52A Dictated by : RAFI COLÓN MD This examination was interpreted and the report reviewed and electronically signed by: RAFI COLÓN MD on Dec 04 2024 2:55AM EST [id number] Normal [facility] CNOVon 11-30-2024 CNOV Office Visit (ROBBY ) TATE BALTAZAR ([id number]) 1975 M Date Time Provider Department 11/30/24 1:00 PM NURSE PAIN INFUSION SHAUN LUCIO During your visit today, we recorded the following information about you: Pulse Respiration Blood pressure Weight 69/minute 16/minute 145/94 111.9 kg Edelmira Perera, RN 12/01/2024 8:02 AM Signed Pt here [...] complete. 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 Pt reports that his pain is [...] given written instructions to follow up at [facility]. in the next 4 to [...] - guaiFENesin-dextromethorphan (MATTIE (more content not included)... Normal [facility] Orthopedic Visit Reporton Orthopedic Visit Report [facility] [address] [place] [address] [address] [place] [address] OFFICE VISIT Date of Service: 11/21/24 MR#: [id number] Acct: [id number] Name: TATE BALTAZAR Rep #: [id number] : 1975 Provider: Dr. Fred alanis MD Age/Sex: 49/M Location: [facility] Status: Signed Intake [...] mg PO QHS 02/29/24 11/21/24 His tory [facility] Medical History Right rotator cuff tear Primary [...] Fred Huber MD 11/21/24 1047. Part of today???s visit was documented by [...] unsure exactly when that was. Supplemental Info [facility] Imaging Services [address] [place] [address] Upper Ext Joint Only(Routine) MR#: [id number] Acct: [id number] Name: TATE BALTAZAR Rep #: [id number] : 1975 M 49 From: Omega Russo MD PCP: Dr. Lanette Harkins, DO Status: REG CLI Study: Upper Ext Joint Only(Routine) Date of Exam: 11/15/24 Exam# [id number] Ordering Dr: Fred Huber MD PROCEDURE: UPPER [...] contusion o (more content not included)... Normal [facility] Magnetic resonance imaging r eportOrdered By: Omega Russo on 11-16-2024 Study report [facility] Imaging Services [address] [place] [address] Upper Ext Joint Only(Routine) MR#: [id number] Acct: [id number] Name: TATE BALTAZAR Rep #: [id number] : 1975 M 49 From: Amando Russo MD PCP: Dr. Lanette Harkins, DO Status: REG CLI Study:Upper Ext Joint Only(Routine) Date of Exam: 11/15/24 Exam# [id number] Ordering Dr: Fred Huber MD PROCEDURE: UPPER [...] Harkins DO; Dr. Fred Huber MD ~ Technical Documentation Specialist: Signed [facility] Upper Ext Joint Only(Routine )on 11-15-2024 Upper Ext Joint Only(Routine) [facility] Imaging Services [address] [place], [place] [address] Upper Ext Joint Only(Routine) MR#: [id number] Acct: [id number] Name: TATE BALTAZAR Rep #: [id number] : 1975 M 49 From: Omega Russo MD PCP: Dr. Lanette Harkins, DO Status: REG CLI Study: Upper Ext Joint Only(Routine) Date of Exam: 0 11/15/24 Exam# [id number] Ordering Dr: Fred Huber MD PROCEDURE: UPPER [...] Lanette Harkins DO; Dr. Fred Huber MD Technical Documentation Specialist: Signed Normal [facility] No Panel Informationon 11-10 Culture Wound Aerobe Few normal skin yolanda present. Sensitivity testing not indicated. Neisseria gonorrhoeae: Negative [facility] Work Phone: GS No organisms seen. [facility] Work Phone: CNOVon 11-02-2024 CNOV Office Visit (ROBBY ) TATE BALTAZAR ([id number]) 1975 M Date Time Provider Department 11/02/24 [...] 7/10. 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 CLEM Cook Jagan, MD 11/04/2024 7:55 [...] given written instructions to follow up at [facility]. in the next 4 to [...] Change Date Reviewed: 11/02/2024 Reviewed by: Edelmira Perera RN - Fully [...] in NaCl 0.9% 232 mL (XYLOCAINE)Disp: Rfl: N NURSING COMMUNICATION [[id number]] Order #: [id number]: 1 [facility] NURSING COMMUNICATION [[id number]] Order #: [id number]: 1 [facility] NURSING COMMUNICATION [[id number]] Order #: [id number]: 1 [facility] NURSING COMMUNICATION [[id number]] Order #: [id number]: 1 Prescriptions as of 11/04/2024 - cyclobenzaprine [...] day as needed. (more content not included)... 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 Normal [facility] Orthopedic Visit Reporton Orthopedic Visit Report [facility] [address] [place] [address] 5 [place] [address] OFFICE VISIT Date of Service: 10/27/24 MR#: [id number] Acct: [id number] Name: TATE BALTAZAR Rep #: [id number] : 1975 Provider: Dr. Fred alanis MD Age/Sex: 49/M Location: [facility] Status: Signed Intake [...] 50 mg PO QHS 02/29/24 10/27/24 His tory [facility] Medical History Primary osteoarthritis, right shoulder Right [...] by me, Dr. Fred Huber MD 10/27/24 0858. 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 Normal [facility] Orthopedic Visit Reporton Orthopedic Visit Report [facility] [address] [place] [address] OFFICE VISIT Date of Service: 10/25/24 MR#: [id number] Acct: [id number] Name: TATE BALTAZAR Rep #: [id number] : 1975 Provider: Dr. Fred alanis MD Age/Sex: 49/M Location: [facility] Status: Signed Intake [...] you fallen in the past year?: No [facility] Medical History (Updated 10/25/24 @ 10:51 by [...] 8 yrs. had 2 surgeries. last in [place] 2 years ago. lateral pain. had a stroke. RHD. right sided weakness, 2 strokes. [place] - no PT. had cortisone injections. in the past though pain management in [place] - doesn't help only for a day. [...] follow-up after (more content not included)... Normal [facility] Shoulder min 2 Viewson 10-25 Shoulder min 2 Views [facility] Imaging Services [address] [place] [address] Shoulder min 2 Views MR#: [id number] Acct: [id number] Name: TATE BALTAZAR Rep #: [id number] : 1975 M 49 From: Jennifer Lynn PCP: Dr. Lanette Harkins DO Status: DEP AMB Study: Shoulder min 2 Views Date of Exam: 10/25/24 Exam# [id number] Ordering Dr: Fred Huber MD PROCEDURE: SHOULDER [...] fracture or dislocation is seen. Reading Location: [address] CC: Dr. Lanette Harkins DO; Dr. Fred Huber MD Technical Documentation Specialist: Signed Normal [facility] Orthopedic Visit Reporton Orthopedic Visit Report [facility] [address] [place] [address] 5 [place] [address] OFFICE VISIT Date of Service: 10/19/24 MR#: [id number] Acct: [id number] Name: TATE BALTAZAR Rep #: [id number] : 1975 Provider: Dr. Fred alanis MD Age/Sex: 49/M Location: [facility] Status: Signed Intake [...] you fallen in the past year?: No [facility] Medical History Right shoulder pain Osteoarthritis of [...] Performing Provider: Fred Huber MD Performing Location: [facility] Administered by: Fred Huber MD on 10/19/24 11:20 Dose Route Admin Location Dispensed Lot Number Expiration Date [place] Man ufacturer 20 mg intra-articular Right knee 2 mL [id number] 04/09/25 [address]-5 ANITA NG PHARMAC Coding Level of Care [...] injection We discusse (more content not included)... [facility]OVon 10-06-[facility]24 CNOV Office Visit (ROBBY ) TATE BALTAZAR ([id number]) 1975 M Date Time Provider Department 10/06/24 [...] Unknown Doxycycline Hives Hydrocodone Other: See Comments Amite Juice Unknown Amite Oil Hives, Other: See Comments Pseudoephedrine Unknown [...] ORAL/FEEDING TUBE route (more content not included)... [facility] Telephone (ROBBY) TATE BALTAZAR ([id number]) 1975 M Date Time Provider Department 10/06/24 [...] every 8 hours as needed. - fexofenadine (KIBMERLY) 180 mg tablet Take 180 mg by [...] function [ (more content not included)... Normal [facility] Orthopedic Visit Reporton Orthopedic Visit Report [facility] [address] [place] [address] OFFICE VISIT Date of Service: 10/06/24 MR#: [id number] Acct: [id number] Name: TATE BALTAZAR Rep #: [id number] : 1975 Provider: Dr. Fred alanis MD Age/Sex: 49/M Location: 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 Normal [facility] Orthopedic Visit Reporton Orthopedic Visit Report [facility] [address] [place] [address] OFFICE VISIT Date of Service: 09/20/24 MR#: [id number] Acct: [id number] Name: TATE BALTAZAR Rep #: [id number] : 1975 Provider: Dr. Fred alanis MD Age/Sex: 49/M Location: [facility] Status: Signed Intake [...] there would be a role for cartilage caodaism here could consider patellofemoral resurfacing arthroplasty. Otherwise [...] and st (more content not included)... Normal [facility] Orthopedic Visit Reporton Orthopedic Visit Report [facility] [address] [place] [address] OFFICE VISIT Date of Service: 07/19/24 MR#: [id number] Acct: [id number] Name: TATE BALTAZAR Rep #: [id number] : 1975 Provider: Dr. Fred alanis MD Age/Sex: 49/M Location: [facility] Status: Signed Intake [...] lower extremity wea (more content not included)... [facility] 07-01-2024 EMILY Telephone (ROBBY) TATE BALTAZAR ([id number]) 1975 M Date Time Provider Department 07/01/24 LEEANN OWENS During your visit today, we recorded the following information about you: Rabia Rangel 07/01/2024 4:14 PM Signed [employer] No-Show Documentation Tatesherrie Baltazar no showed for an appointment on 07/01/2024 with Leeann Owens PA-C. at [facility]. The patient was was scheduled for a [...] Josey Rangel July 01, 2024 4:13 PM Allergies [...] (degenerative disc di (more content not included)... [facility] ED NOTEon 06-28-2024 ED NOTE HNO ID: [id number] Author: THIERNO ESQUIVEL RN Service: ? Author Type: Registered Nurse Type: ED Notes Filed: 06/28/2024 17:30 Note Text: Pt's spouse states she made an appointment for the pt to see his pcp tomorrow. Pt signs ama paperwork and ambulated from ed with a steady gait. [facility] ED NOTE HNO ID: [id number] Author: ?, ?, ? Service: Emergency Medicine Author Type: ? Type: ED Notes Filed: 06/28/2024 17:28 Note Text: Patient states that he just wants to leave. RN obtained signature on AMA form. Normal [facility] ED NOTE HNO ID: [id number] Author: ?, ?, ? Service: Emergency Medicine Author Type: ? Type: ED Notes Filed: 06/28/2024 17:24 Note Text: Pt states he is vomiting Normal [facility] US ABDOMEN COMPLETEon 2024 US ABDOMEN COMPLETE [...] 11:52:04 AM Ordering Provider: ALLI DACOSTA Normal [facility] CBC W Auto Differential pane l (Bld)on 05-16-2024 Basophils (Bld) [#/Vol] 10*3/uL Normal <0.11 [facility] Comment on above: Order Comment: Speci men Type: BLOOD SPECIMENOrdering Facility: [facility] Address: [address] [place] [address] Performed By: #### 5 7021-8 ####[facility] [place] LABCLIA [id number] [facility] [place] [address] [place] Basophils/100 WBC (Bld) 0.4 % Normal [facility] Comment on above: Order Comment: Speci men Type: BLOOD SPECIMENOrdering Facility: [facility] Address: [address] [place] [address] Performed By: #### 5 7021-8 ####[facility] [place] LABCLIA [id number] [place] [address] [place] Differential cell count method Nom (Bld) Auto Normal [facility] Comment on above: Order Comment: Speci men Type: BLOOD SPECIMENOrdering Facility: [facility] Address: [address] [place] [address] Performed By: #### 5 7021-8 ####[facility] [place] LABCLIA [id number] [place] [address] [place] Eosinophils (Bld) [#/Vol] 0.10 10*3/uL Normal <0.46 [facility] Comment on above: Order Comment: Speci men Type: BLOOD SPECIMENOrdering Facility: [facility] Address: [address] [place] [address] Performed By: #### 5 7021-8 ####[facility] [place] LABCLIA [id number] [facility] [place] [address] [place] Eosinophils/100 WBC (Bld) 2.0 % Normal [facility] Comment on above: Order Comment: Speci men Type: BLOOD SPECIMENOrdering Facility: [facility] Address: [address] [place] [address] Performed By: #### 5 7021-8 ####[facility] [place] LABCLIA [id number] [place] [address] [place] Erythrocyte distribution width (RBC) [Ratio] 12.9 % Normal 11.5-15.0 [facility] Comment on above: Order Comment: Speci men Type: BLOOD SPECIMENOrdering Facility: [facility] Address: [address] [place] [address] Performed By: #### 5 7021-8 ####[facility] [place] LABCLIA [id number] [place] [address] [place] Hematocrit (Bld) [Volume fraction] 36.4 % Low 39.0-51.0 [facility] Comment on above: Order Comment: Speci men Type: BLOOD SPECIMENOrdering Facility: [facility] Address: [address] [place] [address] Performed By: #### 5 7021-8 ####[facility] LABCLIA [id number] [place] [address] [place] Hemoglobin (Bld) [Mass/Vol] 11.9 g/dL Low 13.0-17.0 [facility] Comment on above: Order Comment: Speci men Type: BLOOD SPECIMENOrdering Facility: [facility] Address: [address] [place] [address] Performed By: #### 5 7021-8 ####[facility] LABCLIA [id number] [place] [address] [place] Immature granulocytes (Bld) [#/Vol] 0.03 10*3/uL Normal <0.10 [facility] Comment on above: Order Comment: Speci men Type: BLOOD SPECIMENOrdering Facility: [facility] Address: [address] [place] [address] Performed By: #### 5 7021-8 ####[facility] [place] LABCLIA [id number] [place] [id number] [facility] Immature granulocytes/100 WBC (Bld) 0.6 % Normal [facility] Comment on above: Order Comment: Speci men Type: BLOOD SPECIMENOrdering Facility: [facility] Address: [address] [place] [address] Performed By: #### 5 7021-8 ####[facility] LABCLIA [id number] [address] [place] Lymphocytes (Bld) [#/Vol] 1.56 10*3/uL Normal 1.00-4.00 [facility] Comment on above: Order Comment: Speci men Type: BLOOD SPECIMENOrdering Facility: [facility] Address: [address] [place] [address] Performed By: #### 5 7021-8 ####[facility] LABCLIA [id number] [address] Lymphocytes/100 WBC (Bld) 31.2 % Normal [facility] Comment on above: Order Comment: Speci men Type: BLOOD SPECIMENOrdering Facility: [facility] Address: [address] [place] [address] Performed By: #### 5 7021-8 ####[facility] LABCLIA [id number] [place], [place] [address] [place] [address] [place] MCH (RBC) [Entitic mass] 30.5 pg Normal 26.0-34.0 [facility] Comment on above: Order Comment: Speci men Type: BLOOD SPECIMENOrdering Facility: [facility] Address: [address] [place] [address] Performed By: #### 5 7021-8 ####[facility] LABCLIA [id number] [place] [address] [place] MCHC (RBC) [Mass/Vol] 32.7 g/dL Normal 30.5-36.0 [facility] Comment on above: Order Comment: Speci men Type: BLOOD SPECIMENOrdering Facility: [facility] Address: [address] [place] [address] Performed By: #### 5 7021-8 ####[facility] LABCLIA [id number] [place] [address] [facility] MCV (RBC) [Entitic vol] 93.3 fL Normal 80.0-100.0 [facility] Comment on above: Order Comment: Speci men Type: BLOOD SPECIMENOrdering Facility: [facility] Address: [address] [place] [address] Performed By: #### 5 7021-8 ####[facility] [place] LABCLIA [id number] [facility] [place] [address] [place] Monocytes (Bld) [#/Vol] 0.61 10*3/uL Normal <0.87 [facility] Comment on above: Order Comment: Speci men Type: BLOOD SPECIMENOrdering Facility: [facility] Address: [address] [place] [address] Performed By: #### 5 7021-8 ####[facility] LABCLIA [id number] [facility] [place] [address] [place] Monocytes/100 WBC (Bld) 12.2 % Normal [facility] Comment on above: Order Comment: Speci men Type: BLOOD SPECIMENOrdering Facility: [facility] Address: [address] [place] [address] Performed By: #### 5 7021-8 ####[facility] LABCLIA [id number] [facility] [place] [address] [place] Neutrophils (Bld) [#/Vol] 2.68 10*3/uL Normal 1.45-7.50 [facility] Comment on above: Order Comment: Speci men Type: BLOOD SPECIMENOrdering Facility: [facility] Address: [address] [place] [address] Performed By: #### 5 7021-8 ####[facility] LABCLIA [id number] [facility] [place] [address] [place] Neutrophils/100 WBC (Bld) 53.6 % Normal [facility] Comment on above: Order Comment: Speci men Type: BLOOD SPECIMENOrdering Facility: [facility] Address: [address] [place] [address] Performed By: #### 5 7021-8 ####[facility] [place] LABCLIA [id number] [place] [address] [place] Nucleated RBC (Bld) [#/Vol] Normal [facility] Comment on above: Order Comment: Speci men Type: BLOOD SPECIMENOrdering Facility: [facility] Address: [address] [place] [address] Performed By: #### 5 7021-8 ####[facility] [place] LABCLIA [id number] [place] [address] [place] Nucleated RBC/100 WBC (Bld) [Ratio] Normal [facility] Comment on above: Order Comment: Speci men Type: BLOOD SPECIMENOrdering Facility: [facility] Address: [address] [place] [address] Performed By: #### 5 7021-8 ####[facility] LABCLIA [id number] [place] [address] [place] Platelet mean volume (Bld) [Entitic vol] 9.7 fL Normal 9.0-12.7 [facility] Comment on above: Order Comment: Speci men Type: BLOOD SPECIMENOrdering Facility: [facility] Address: [address] [place] [address] Performed By: #### 5 7021-8 ####[facility] LABCLIA [id number] [facility] [place] [address] [place] Platelets (Bld) [#/Vol] 215 10*3/uL Normal 150-400 [facility] Comment on above: Order Comment: Speci men Type: BLOOD SPECIMENOrdering Facility: [facility] Address: [address] [place] [address] Performed By: #### 5 7021-8 ####[facility] [place] LABCLIA [id number] [place] [address] [place] RBC (Bld) [#/Vol] 3.90 10*6/uL Low 4.20-6.00 [facility] Comment on above: Order Comment: Speci men Type: BLOOD SPECIMENOrdering Facility: [facility] Address: [address] [place] [address] Performed By: #### 5 7021-8 ####[facility] LABCLIA [id number] [place] [address] [place] WBC (Bld) [#/Vol] 5.00 10*3/uL Normal 3.70-11.00 [facility] Comment on above: Order Comment: Speci men Type: BLOOD SPECIMENOrdering Facility: [facility] Address: [address] [place] [id number] Performed By: #### 5 7021-8 ####[facility] LABCLIA [id number] [place] [address] [facility] CT ABD/PEL W IVCONon 024 CT ABD/PEL W IVCON * * *Final Report* * * DATE OF EXAM: May 16 2024 2:53AM [facility] 0530 - CT ABD/PEL W IVCON [...] acute compression fracture of T11 is chronic. Information Assurance Manager (topogram) images: No additional findings. IMPRESSION: 1. No acute abnormality of the chest, abdomen, or pelvis. 2. Stable mild hepatomegaly with moderate steatosis. Technical Documentation Specialist: [facility] CENTERBet[facility] Transcribe Date/Time: May 16 2024 5:18A Dictated by : JETHRO COLLINS MD This examination was interpreted and the report reviewed and electronically signed by: JETHRO COLLINS MD on May 16 2024 5:42AM EST [id number] Normal [facility] CT BRAIN WO IVCONon 05-16-20 CT BRAIN WO IVCON * * *Final Report* * * DATE OF EXAM: May 16 2024 2:53AM [facility] 0504 - CT BRAIN WO IVCON [...] stenosis is grossly apparent in this modality. Information Assurance Manager (topogram) images: Non-diagnostic. IMPRESSION: Brain CT shows [...] vertebrae with counting from the craniocervical junction. Technical Documentation Specialist: [employer]AL[employer] Transcribe Date/Time: May 16 2024 3:33A Dictated by : ORB GARZA MD This examination was interpreted and the report reviewed and electronically signed by: ROB GARZA MD on May 16 2024 3:45AM EST [id number] Normal [facility] CT CERVICAL SPINE WO IVCONon 05-16-2024 CT CERVICAL SPINE WO IVCON * * *Final Report* * * DATE OF EXAM: May 16 2024 2:53AM [facility] 0505 - CT CERVICAL SPINE WO [...] stenosis is grossly apparent in this modality. Information Assurance Manager (topogram) images: Non-diagnostic. IMPRESSION: Brain CT shows [...] vertebrae with counting from the craniocervical junction. Technical Documentation Specialist: [employer] Transcribe Date/Time: May 16 2024 3:33A Dictated by : ROB GARZA MD This examination was interpreted and the report reviewed and electronically signed by: ROB GARZA MD on May 16 2024 3:45AM EST [id number] Normal [facility] CT CHEST W IVCONon CT CHEST W IVCON * * *Final Report* * * DATE OF EXAM: May 16 2024 2:53AM [facility] 0539 - CT CHEST W IVCON [...] acute compression fracture of T11 is chronic. Information Assurance Manager (topogram) images: No additional findings. IMPRESSION: 1. No acute abnormality of the chest, abdomen, or pelvis. 2. Stable mild hepatomegaly with moderate steatosis. Technical Documentation Specialist: [employer]SC[employer] Transcribe Date/Time: May 16 2024 5:18A Dictated by : JETHRO COLLINS MD This examination was interpreted and the report reviewed and electronically signed by: JETHRO COLLINS MD on May 16 2024 5:42AM EST [id number] Normal [facility] Comprehensive metabolic 2000 panelon 05-16-2024 Albumin [Mass/Vol] 3.4 g/dL Low 3.9-4.9 [facility] Comment on above: Order Comment: Speci men Type: BLOOD SPECIMENOrdering Facility: [facility] Address: [address] [place], [place] [address] Performed By: #### 2 4323-8, ####[facility] [place] LABCLIA [id number] [facility] [place] [address] [place] ALP [Catalytic activity/Vol] 88 U/L Normal 38-113 [facility] Comment on above: Order Comment: Speci men Type: BLOOD SPECIMENOrdering Facility: [facility] Address: [address] [place], [place] [address] Performed By: #### 2 4323-8, ####[facility] [place] LABCLIA [id number] [facility] [place] [address] [place] ALT With P-5'-P [Catalytic activity/Vol] 18 U/L Normal 10-54 [facility] Comment on above: Order Comment: Speci men Type: BLOOD SPECIMENOrdering Facility: [facility] Address: [address] [place] [address] Performed By: #### 2 4323-8, ####[facility] [place] LABCLIA [id number] [facility] [place] [address] [place] Anion gap [Moles/Vol] 9 mmol/L Normal 8-15 [facility] Comment on above: Order Comment: Speci men Type: BLOOD SPECIMENOrdering Facility: [facility] Address: [address] [place], [place] [address] Performed By: #### 2 4323-8, ####[facility] [place] LABCLIA [id number] [facility] [place] [address] [place] AST With P-5'-P [Catalytic activity/Vol] 19 U/L Normal 14-40 [facility] Comment on above: Order Comment: Speci men Type: BLOOD SPECIMENOrdering Facility: [facility] Address: [address] [place], [place] [address] Performed By: #### 2 4323-8, ####[facility] [place] LABCLIA [id number] [place] [address] [place] Bilirubin [Mass/Vol] 0.4 mg/dL Normal 0.2-1.3 [facility] Comment on above: Order Comment: Speci men Type: BLOOD SPECIMENOrdering Facility: [facility] Address: [address] [place] [address] Performed By: #### 2 4323-8, ####[facility] [place] LABCLIA [id number] [place] [address] [place] Calcium [Mass/Vol] 8.5 mg/dL Normal 8.5-10.2 [facility] Comment on above: Order Comment: Speci men Type: BLOOD SPECIMENOrdering Facility: [facility] Address: [address] [place] [address] Performed By: #### 2 4323-8, ####[facility] [place] LABCLIA [id number] [place] [address] [place] Chloride [Moles/Vol] 103 mmol/L Normal 98-107 [facility] Comment on above: Order Comment: Speci men Type: BLOOD SPECIMENOrdering Facility: [facility] Address: [address] [place] [address] Performed By: #### 2 4323-8, ####[facility] [place] LABCLIA [id number] [place] [address] [place] CO2 [Moles/Vol] 25 mmol/L Normal 22-30 [facility] Comment on above: Order Comment: Speci men Type: BLOOD SPECIMENOrdering Facility: [facility] Address: [address] [place] [address] Performed By: #### 2 4323-8, ####[facility] [place] LABCLIA [id number] [place] [address] [place] Creatinine [Mass/Vol] 1.11 mg/dL Normal 0.73-1.22 [facility] Comment on above: Order Comment: Speci men Type: BLOOD SPECIMENOrdering Facility: [facility] Address: [address] [place] [address] Performed By: #### 2 4323-8, ####[facility] LABCLIA [id number] [place] [address] [place] Creatinine and Glomerular filtration rate.predicted panel (S/P/Bld) 82 mL/min/1.73m??? Normal >=60 [facility] Comment on above: Order Comment: Brit galaviz Type: BLOOD SPECIMENOrdering Facility: [facility] Address: [address] [place] [address] Result Comment: Gladis mated Glomerular Filtration Rate [...] accurately reflect actual GFR. Performed By: #### 2 4323-8, ####[facility] [id number] [place] [address] [place] Glucose [Mass/Vol] 192 mg/dL High 74-99 [facility] Comment on above: Order Comment: Brit anastacia Type: BLOOD SPECIMENOrdering Facility: [facility] Address: [address] [place] [address] Result Comment: The [place] [employer] (ADA) provides guidance for cutoff [...] Standards of Medical Care in Diabetes 2016, [place] [employer]. Diabetes Care. 2016.39(Suppl 1). Performed By: #### 2 4323-8, ####[facility] [place] LABCLIA [id number] [place] [address] [place] Potassium [Moles/Vol] 3.8 mmol/L Normal 3.7-5.1 [facility] Comment on above: Order Comment: Speci men Type: BLOOD SPECIMENOrdering Facility: [facility] Address: [address] [place] [address] Performed By: #### 2 432-8, ####[facility] [place] LABCLIA [id number] [place] [address] [place] Protein [Mass/Vol] 5.3 g/dL Low 6.3-8.0 [facility] Comment on above: Order Comment: Speci men Type: BLOOD SPECIMENOrdering Facility: [facility] Address: [address] [place] [address] Performed By: #### 2 4328, ####[facility] [place] LABCLIA [id number] [place] [address] [place] Sodium [Moles/Vol] 137 mmol/L Normal 136-144 [facility] Comment on above: Order Comment: Speci men Type: BLOOD SPECIMENOrdering Facility: [facility] Address: [address] [place] [address] Performed By: #### 2 4323-8, ####[facility] [place] LABCLIA [id number] [place] [address] [place] Urea nitrogen [Mass/Vol] 10 mg/dL Normal 9-24 [facility] Comment on above: Order Comment: Speci men Type: BLOOD SPECIMENOrdering Facility: [facility] Address: [address] [place] [address] Performed By: #### 2 4323-8, ####[facility] [place] LABCLIA [id number] [place] [address] [place] ECG COMPLETEon 05-16-2024 ECG COMPLETE Ventricular Rate : 6 3 BPM Atrial Rate : 63 BPM P-R Interval : 164 ms QRS Duration : 98 ms Q-T Interval : 424 ms QTC Calculation(Bazett) : 433 ms Calculated P [place] : 34 degrees Calculated R [place] : -11 degrees Calculated T [place] : 1 degrees NORMAL SINUS RHYTHM NONSPECIFIC T WAVE ABNORMALITY ABNORMAL ECG WHEN COMPARED WITH ECG OF 12-Sep-2023 12:14, VENT. RATE HAS DECREASED by [address] NO LONGER DEPRESSED IN ANTERIOR LEADS NONSPECIFIC T WAVE ABNORMALITY HAS REPLACED INVERTED T WAVES IN ANTERIOR LEADS Confirmed by MD CEVALLOS VINAYAK ([id number]) on 05/17/2024 10:13:53 PM NAME : TATE BALTAZAR PID : [id number] : 1975 Gender : Male Race : ORD : [id number] Procedure Date : May 16 2024 00:55:50 Edit Date : May 17 2024 22:13:54 Diagnosis: NORMAL SINUS RHYTHM NONSPECIFIC T WAVE ABNORMALITY ABNORMAL ECG WHEN COMPARED WITH ECG OF 12-Sep-2023 12:14, VENT. RATE HAS DECREASED by [address] NO LONGER DEPRESSED IN ANTERIOR LEADS NONSPECIFIC T WAVE ABNORMALITY HAS REPLACED INVERTED T WAVES IN ANTERIOR LEADS Confirmed by MD CEVALLOS VINAYAK ([id number]) on 05/17/2024 10:13:53 PM Test Reason : DIZZYNESS Location : 191 : [facility] ED Overread By : MD CEVALLOS VINAYAK Edited By : MD CEVALLOS VINAYAK Referred By : GISELLE Acquired by : WERNER CINTRON [facility] ED NOTEon 05-16-2024 ED NOTE HNO ID: [id number] Author: MIGUEL REYES RN Service: Emergency Medicine Author Type: Registered Nurse Type: ED Notes Filed: 05/16/2024 06:23 Note Text: Patient discharge instructions given to patient. Patient educated on discharge instructions. Patient denied having questions at this time regarding discharge instructions. Patient discharged home at this time with patient's significant other. [facility] ED NOTE HNO ID: [id number] Author: DARÍO SNOW RN Service: Emergency Medicine [...] [facility] ED NOTE HNO ID: [id number] Author: MIGUEL REYES RN Service: Emergency Medicine Author Type: Registered Nurse Type: ED Notes Filed: 05/16/2024 05:15 Note Text: ED physician stating that we do not need to collect the third troponin. [facility] ED NOTE HNO ID: [id number] Author: MIGUEL REYES RN Service: Emergency Medicine Author Type: Registered Nurse Type: ED Notes Filed: 05/16/2024 04:51 Note Text: Physician at bedside. Physician removed C-Collar at this time. [facility] ED NOTE HNO ID: [id number] Author: MIGUEL REYES RN Service: Emergency Medicine Author Type: Registered Nurse Type: ED Notes Filed: 05/16/2024 01:04 Note Text: Transfer of patient care report received from Pratibha Bill RN. I assumed patient care at this time. [facility] ED NOTE HNO ID: [id number] Author: MIGUEL REYES RN Service: Emergency Medicine Author Type: Registered Nurse Type: ED Notes Filed: 05/16/2024 00:52 Note Text: RT at bedside for EKG. Patient's spouse at bedside. [facility] ED PROV NOTEon 05-16-2024 ED PROV NOTE HNO ID: [id number] Author: MIREYA DESAI MD Service: Emergency Medicine [...] Unknown Doxycycline Hives Hydrocodone Other: See Comments Amite Juice Unknown Amite Oil Hives, Other: See Comments Pseudoephedrine Unknown [...] Abdomen is (more content not included)... Normal [facility] Gas and Carbon monoxide pane l (BldV)on 12-30-2024 Base excess Calc (BldV) [Moles/Vol] 1 mmol/L Normal 0-2 [facility] Comment on above: Order Comment: Speci men Type: VENOUS BLOOD SPECIMENOrdering Facility: [facility] Address: [address] [place] [address] Performed By: #### 2 4344-4 ####[facility] LABCL[facility] [id number] [place] [address] [place] Body temperature 96.98 [degF] Normal [facility] Comment on above: Order Comment: Speci men Type: VENOUS BLOOD SPECIMENOrdering Facility: [facility] Address: [address] [place] [address] Performed By: #### 2 4344-4 ####[facility] LABCLIA [id number] [place] [address] [place] Calcium.ionized (Bld) [Mass/Vol] 1.15 mmol/L Normal 1.08-1.30 [facility] Comment on above: Order Comment: Speci men Type: VENOUS BLOOD SPECIMENOrdering Facility: [facility] Address: [address] [place] [address] Performed By: #### 2 4344-4 ####[facility] LABCLIA [id number] [place] [address] [place] Calcium.ionized adjusted to pH 7.4 (BldA) [Moles/Vol] 1.14 mmol/L Normal 1.08-1.30 [facility] Comment on above: Order Comment: Speci men Type: VENOUS BLOOD SPECIMENOrdering Facility: [facility] Address: [address] [place] [address] Performed By: #### 2 4344-4 ####[facility] [place] LABCLIA [id number] [place] [address] [place] Carboxyhemoglobin (BldV) [Mass fraction] 1.8 % Normal 0.0-2.0 [facility] Comment on above: Order Comment: Speci men Type: VENOUS BLOOD SPECIMENOrdering Facility: [facility] Address: [address] [place] [address] Result Comment: Carb oxyhemoglobin Reference Range for Smokers: 2.0-8.0% Performed By: #### 2 4344-4 ####[facility] [place] LABCLIA [id number] [place] [address] [place] Chloride [Moles/Vol] 107 mmol/L High 97-105 [facility] Comment on above: Order Comment: Speci men Type: VENOUS BLOOD SPECIMENOrdering Facility: [facility] Address: [address] [place] [address] Performed By: #### 2 4344-4 ####[facility] [place] LABCLIA [id number] [facility] [place] [address] [facility] [place] CO2 (BldV) [Partial pressure] 43 mm[Hg] Normal 42-55 [facility] Comment on above: Order Comment: Speci men Type: VENOUS BLOOD SPECIMENOrdering Facility: [facility] Address: [address] [place] [address] Performed By: #### 2 4344-4 ####[facility] [place] LABCLIA [id number] [facility] [place] [address] [place] CO2 adjusted to patient's actual temperature (BldV) [Partial pressure] 41 mmHg Low 42-55 [facility] Comment on above: Order Comment: Speci men Type: VENOUS BLOOD SPECIMENOrdering Facility: [facility] Address: [address] [place] [address] Performed By: #### 2 4344-4 ####[facility] [place] LABCLIA [id number] [place] [address] [place] Glucose [Mass/Vol] 125 mg/dL High 60-105 [facility] Comment on above: Order Comment: Speci men Type: VENOUS BLOOD SPECIMENOrdering Facility: [facility] Address: [address] [place] [address] Performed By: #### 2 4344-4 ####[facility] [place] LABCLIA [id number] [place] [address] [place] HCO3 (Bld) [Moles/Vol] 26 mmol/L Normal 24-28 [facility] Comment on above: Order Comment: Speci men Type: VENOUS BLOOD SPECIMENOrdering Facility: [facility] Address: [address] [place] [address] Performed By: #### 2 4344-4 ####[facility] [place] LABCLIA [id number] [place] [address] [place] Hematocrit (Bld) [Volume fraction] 38.7 % Low 39.0-51.0 [facility] Comment on above: Order Comment: Speci men Type: VENOUS BLOOD SPECIMENOrdering Facility: [facility] Address: [address] [place] [address] Performed By: #### 2 4344-4 ####[facility] [place] LABCLIA [id number] [facility] [place] [address] [place] Hemoglobin (Bld) [Mass/Vol] 12.6 g/dL Low 13.0-17.0 [facility] Comment on above: Order Comment: Speci men Type: VENOUS BLOOD SPECIMENOrdering Facility: [facility] Address: [address] [place] [address] Performed By: #### 2 4344-4 ####[facility] [place] LABCLIA [id number] [place] [facility] [place] [address] [place] Lactate [Moles/Vol] 1.1 mmol/L Normal 0.5-2.2 [facility] Comment on above: Order Comment: Speci men Type: VENOUS BLOOD SPECIMENOrdering Facility: [facility] Address: [address] [place] [address] Performed By: #### 2 4344-4 ####[facility] [place] LABCLIA [id number] [facility] [place] [address] [place] Methemoglobin (Bld) [Mass fraction] % Normal 0.0-1.5 [facility] Comment on above: Order Comment: Speci men Type: VENOUS BLOOD SPECIMENOrdering Facility: [facility] Address: [address] [place] [address] Performed By: #### 2 4344-4 ####[facility] [place] LABCLIA [id number] [facility] [place] [address] [place] Oxygen (BldV) [Partial pressure] 70 mm[Hg] High 35-45 [facility] Comment on above: Order Comment: Speci men Type: VENOUS BLOOD SPECIMENOrdering Facility: [facility] Address: [address] [place] [address] Performed By: #### 2 4344-4 ####[facility] [place] LABCLIA [id number] [facility] [place] [address] [place] Oxygen adjusted to patient's actual temperature (BldV) [Partial pressure] Normal [facility] Comment on above: Order Comment: Speci men Type: VENOUS BLOOD SPECIMENOrdering Facility: [facility] Address: [address] [place] [address] Performed By: #### 2 4344-4 ####[facility] [place] LABCLIA [id number] [facility] [place] [address] [place] Oxygen saturation in Venous blood 95 % High 60-85 [facility] Comment on above: Order Comment: Speci men Type: VENOUS BLOOD SPECIMENOrdering Facility: [facility] Address: [address] [place] [address] Performed By: #### 2 4344-4 ####[facility] [place] LABCLIA [id number] [facility] [place] [address] [place] Oxyhemoglobin (BldV) [Mass fraction] 92 % High 60-85 [facility] Comment on above: Order Comment: Speci men Type: VENOUS BLOOD SPECIMENOrdering Facility: [facility] Address: [address] [place] [address] Performed By: #### 2 4344-4 ####[facility] [place] LABCLIA [id number] [facility] [place] [address] [place] pH (BldV) 7.39 [pH] Normal 7.32-7.42 [facility] Comment on above: Order Comment: Speci men Type: VENOUS BLOOD SPECIMENOrdering Facility: [facility] Address: [address] [place] [address] Performed By: #### 2 4344-4 ####[facility] [place] LABCLIA [id number] [place] [address] [facility] pH adjusted to patient's actual temperature (BldV) 7.40 Normal 7.32-7.42 [facility] Comment on above: Order Comment: Speci men Type: VENOUS BLOOD SPECIMENOrdering Facility: [facility] Address: [address] [place] [address] Performed By: #### 2 4344-4 ####[facility] [place] LABCLIA [id number] [place] [address] [place] Potassium [Moles/Vol] 3.7 mmol/L Normal 3.5-5.0 [facility] Comment on above: Order Comment: Speci men Type: VENOUS BLOOD SPECIMENOrdering Facility: [facility] Address: [address] [place] [address] Performed By: #### 2 4344-4 ####[facility] [place] LABCLIA [id number] [place] [address] [place] Sodium [Moles/Vol] 140 mmol/L Normal 136-144 [facility] Comment on above: Order Comment: Speci men Type: VENOUS BLOOD SPECIMENOrdering Facility: [facility] Address: [address] [place] [address] Performed By: #### 2 4344-4 ####[facility] [place] LABCLIA [id number] [place] [address] [place] HIGH SENSITIVITY TROPONIN T (INITIAL)on 05-16-2024 Troponin T.cardiac High sensitivity method [Mass/Vol] 15 ng/L High <12 [facility] Comment on above: Order Comment: Speci men Type: BLOOD SPECIMENOrdering Facility: [facility] Address: [address] [place] [address] Performed By: #### L [id number] ####[facility] [place] LABCLIA [id number] [place] [address] [facility] [place] HIGH SENSITIVITY TROPONIN T (SECOND)on 05-16-2024 Troponin T.cardiac High sensitivity method [Mass/Vol] 15 ng/L High <12 [facility] Comment on above: Order Comment: Speci men Type: BLOOD SPECIMENOrdering Facility: [facility] Address: [address] [place], [place] [address] Performed By: #### L [id number] ####[facility] [id number] [place] [address] [facility] Magnesium SerPl-mCncon 05-16 Magnesium [Mass/Vol] 1.9 mg/dL Normal 1.7-2.3 [facility] Comment on above: Order Comment: Speci men Type: BLOOD SPECIMENOrdering Facility: [facility] Address: [address] [place] [address] Performed By: #### 2 4323-8, 45363-3 ####[facility] [id number] [place] [address] [facility] XR HIP 3V PELV+ AP/LAT LTon 05-16-2024 [...] Other: Unremarkable IMPRESSION: No fracture or dislocation. Technical Documentation Specialist: PSCB Transcribe Date/Time: May 16 2024 5:04A Dictated by : SUSIE OAKES MD This examination was interpreted and the report reviewed and electronically signed by: SUSIE OAKES MD on May 16 2024 5:06AM EST [id number] Normal [facility] HPon 05-05-2024 H. Pylori IgG Negative Normal [facility] Comment on above: Result Comment: INTE RPRETATION OF H. PYLORI IGG BY EIA: Negative No detectable antibodies to H. pylori. Positive H. pylori IgG antibody detected. Equivocal Equivocal for IgG antibodies to H. pylori. Repeat testing if still indicated. Performed By: #### A DIFF, LIP, WALTER, GFR, CBC, CMP, ANEU #### [place] [address] #### HP #### [address] [address] .Auto Diffon 05-03-2024 Basophil, Absolute 0.0 10 3/mcL Normal 0.0-0.2 [facility] Comment on above: Performed By: #### A DIFF, LIP, WALTER, GFR, CBC, CMP, ANEU #### [place] [address] #### HP #### [address] [address] Basophils/100 WBC (Bld) 0.6 % Normal 0.0-2.5 [facility] Comment on above: Performed By: #### A DIFF, LIP, WALTER, GFR, CBC, CMP, ANEU #### [place] [address] #### HP #### [address] [address] Eosinophil, Absolute 0.1 10 3/mcL Normal 0.0-0.7 [facility] Comment on above: Performed By: #### A DIFF, LIP, WALETR, GFR, CBC, CMP, ANEU #### [place] [address] #### HP #### [address] [address] Eosinophils/100 WBC (Bld) 1.0 % Normal 0.0-7.0 [facility] Comment on above: Performed By: #### A DIFF, LIP, WALTER, GFR, CBC, CMP, ANEU #### [place] [address] #### HP #### [address] [address] Lymphocyte, Absolute 1.9 10 3/mcL Normal 0.9-4.3 [facility] Comment on above: Performed By: #### A DIFF, LIP, WALTER, GFR, CBC, CMP, ANEU #### [address] [address] #### HP #### [address] [address] Lymphocytes/100 WBC (Bld) 31.0 % Normal 20.0-40.0 [facility] Comment on above: Performed By: #### A DIFF, LIP, WALTER, GFR, CBC, CMP, ANEU #### [place] [address] #### HP #### [address] [address] Monocyte, Absolute 0.5 10 3/mcL Normal 0.1-1.4 [facility] Comment on above: Performed By: #### A DIFF, LIP, WALTER, GFR, CBC, CMP, ANEU #### [place] [address] #### HP #### [address] [address] Monocytes/100 WBC (Bld) 8.0 % Normal 2.0-13.0 [facility] Comment on above: Performed By: #### A DIFF, LIP, WALTER, GFR, CBC, CMP, ANEU #### [place] [address] #### HP #### [address] [address] Neutrophils/100 WBC (Bld) 59.4 % Normal 50.0-75.0 [facility] Comment on above: Performed By: #### A DIFF, LIP, WALTER, GFR, CBC, CMP, ANEU #### [address] [address] #### HP #### [address] [address] .GFRon 12-17-2024 GFR 99 ml/min/1.73sqm Normal [facility] Comment on above: Result Comment: GFR [...] LIP, WALTER, GFR, CBC, CMP, ANEU #### [address] [address] #### HP #### [place] [address] GFR Non- 82 ml/min/1.73sqm Normal [facility] Comment on above: Result Comment: GFR [...] LIP, WALTER, GFR, CBC, CMP, ANEU #### [address] [address] #### HP #### [address] [address] .NEUABSon 05-03-2024 Neutrophil, Absolute 3.6 10 3/mcL Normal 2.3-8.1 [facility] Comment on above: Performed By: #### A DIFF, LIP, WALTER, GFR, CBC, CMP, ANEU #### [address] [address] #### HP #### [address] [address] AMYon 05-03-2024 Amylase [Catalytic activity/Vol] 45 U/L Normal 25-115 [facility] Comment on above: Performed By: #### A DIFF, LIP, WALTER, GFR, CBC, CMP, ANEU #### [place] [address] #### HP #### [place] [address] CBCon 05-03-2024 Erythrocyte distribution width (RBC) [Ratio] 14.4 % Normal 11.5-15.5 [facility] Comment on above: Performed By: #### A DIFF, LIP, WALTER, GFR, CBC, CMP, ANEU #### [place] [address] #### HP #### [address] [address] Hematocrit (Bld) [Volume fraction] 41.3 % Normal 40.0-52.0 [facility] Comment on above: Performed By: #### A DIFF, LIP, WALTER, GFR, CBC, CMP, ANEU #### [place] [address] #### HP #### [address] [address] Hgb 14.2 G/dL Normal 13.0-17.5 [facility] Comment on above: Performed By: #### A DIFF, LIP, WALTER, GFR, CBC, CMP, ANEU #### [address] [address] #### HP #### [address] [address] MCH (RBC) [Entitic mass] 31.2 pg Normal 27.0-33.0 [facility] Comment on above: Performed By: #### A DIFF, LIP, WALTER, GFR, CBC, CMP, ANEU #### [place] [address] #### HP #### [address] [address] MCHC 34.4 G/dL Normal 32.0-36.0 [facility] Comment on above: Performed By: #### A DIFF, LIP, WALTER, GFR, CBC, CMP, ANEU #### [place] [address] #### HP #### [place] [address] MCV (RBC) [Entitic vol] 90.7 fL Normal 81.0-100.0 [facility] Comment on above: Performed By: #### A DIFF, LIP, WALTER, GFR, CBC, CMP, ANEU #### [place] [address] #### HP #### [place] [address] Platelet 243 10 3/mcL Normal 150-450 [facility] Comment on above: Performed By: #### A DIFF, LIP, WALTER, GFR, CBC, CMP, ANEU #### [place] [address] #### HP #### [place] [address] Platelet mean volume (Bld) [Entitic vol] 8.2 fL Normal 6.4-10.5 [facility] Comment on above: Performed By: #### A DIFF, LIP, WALTER, GFR, CBC, CMP, ANEU #### [place] [address] #### HP #### [place] [address] RBC 4.55 10 6/mcL Normal 4.50-6.00 [facility] Comment on above: Performed By: #### A DIFF, LIP, WALTER, GFR, CBC, CMP, ANEU #### [address] [address] #### HP #### [place] [address] WBC 6.0 10 3/mcL Normal 4.5-10.8 [facility] Comment on above: Performed By: #### A DIFF, LIP, WALTER, GFR, CBC, CMP, ANEU #### [place] [address] #### HP #### [place] [address] CMPon 05-03-2024 Albumin Level 3.4 G/dL Low 3.5-5.0 [facility] Comment on above: Performed By: #### A DIFF, LIP, WALTER, GFR, CBC, CMP, ANEU #### [place] [address] #### HP #### [place] [address] Albumin/Globulin [Mass ratio] 1.4 {ratio} Normal 1.1-2.5 [facility] Comment on above: Performed By: #### A DIFF, LIP, WALTER, GFR, CBC, CMP, ANEU #### [place] [address] #### HP #### [place] [address] ALP [Catalytic activity/Vol] 85 U/L Normal 40-135 [facility] Comment on above: Performed By: #### A DIFF, LIP, WALTER, GFR, CBC, CMP, ANEU #### [place] [address] #### HP #### [place] [address] ALT [Catalytic activity/Vol] 35 U/L Normal 16-63 [facility] Comment on above: Performed By: #### A DIFF, LIP, WALTER, GFR, CBC, CMP, ANEU #### [place] [address] #### HP #### [address] [address] AST [Catalytic activity/Vol] 18 U/L Normal 10-40 [facility] Comment on above: Performed By: #### A DIFF, LIP, WALTER, GFR, CBC, CMP, ANEU #### [address] [address] #### HP #### [address] [address] Bili Total 0.8 mg/dL Normal 0.2-1.0 [facility] Comment on above: Result Comment: Use of this assay is not recommended for patients undergoing treatment with eltrombopag due to the potential for falsely elevated results. Performed By: #### A DIFF, LIP, WALTER, GFR, CBC, CMP, ANEU #### [address] [address] #### HP #### [address] [address] BUN/Creatinine Ratio 4 ratio Low 7-27 [facility] Comment on above: Performed By: #### A DIFF, LIP, WALTER, GFR, CBC, CMP, ANEU #### [address] [address] #### HP #### [address] [address] Calcium [Mass/Vol] 9.0 mg/dL Normal 8.4-10.2 [facility] [facility] Comment on above: Performed By: #### A DIFF, LIP, WALTER, GFR, CBC, CMP, ANEU #### [address] [address] #### HP #### [address] [address] Chloride [Moles/Vol] 109 mmol/L High 98-107 [facility] Comment on above: Performed By: #### A DIFF, LIP, WALTER, GFR, CBC, CMP, ANEU #### [address] [address] #### HP #### [address] [address] CO2 [Moles/Vol] 29 mmol/L Normal 22-29 [facility] Comment on above: Performed By: #### A DIFF, LIP, WALTER, GFR, CBC, CMP, ANEU #### [address] [address] #### HP #### [address] [address] Creatinine [Mass/Vol] 0.98 mg/dL Normal 0.70-1.30 [facility] Comment on above: Result Comment: Test ing performed on Siemens Dimension EXL analyzer using a modified kinetic Saeed technique. Performed By: #### A DIFF, LIP, WALTER, GFR, CBC, CMP, ANEU #### [address] [address] #### HP #### [address] [address] Electrolyte Balance 10.0 mEq/L Normal 4.0-15.0 [facility] Comment on above: Performed By: #### A DIFF, LIP, WALTER, GFR, CBC, CMP, ANEU #### [address] [address] #### HP #### [address] [address] Globulin 2.4 G/dL Normal [facility] Comment on above: Performed By: #### A DIFF, LIP, WALTER, GFR, CBC, CMP, ANEU #### [address] [address] #### HP #### [address] [address] Glucose [Mass/Vol] 77 mg/dL Normal 70-105 [facility] Comment on above: Performed By: #### A DIFF, LIP, WALTER, GFR, CBC, CMP, ANEU #### [address] [address] #### HP #### [address] [address] Potassium [Moles/Vol] 3.6 mmol/L Normal 3.5-5.1 [facility] Comment on above: Performed By: #### A DIFF, LIP, WALTER, GFR, CBC, CMP, ANEU #### [address] [address] #### HP #### [address] [address] Sodium [Moles/Vol] 148 mmol/L High 136-145 [facility] Comment on above: Performed By: #### A DIFF, LIP, WALTER, GFR, CBC, CMP, ANEU #### [address] [address] #### HP #### [address] [address] Total Protein 5.8 G/dL Low 6.4-8.2 [facility] Comment on above: Performed By: #### A DIFF, LIP, WALTER, GFR, CBC, CMP, ANEU #### [address] [address] #### HP #### [address] [address] Urea nitrogen [Mass/Vol] 4 mg/dL Low 7-18 [facility] Comment on above: Performed By: #### A DIFF, LIP, WALTER, GFR, CBC, CMP, ANEU #### [address] [address] #### HP #### [address] [address] LABORATORYOrdered By: SYSTEM SYSTEM on 05-03-2024 Albumin [...] 05-03-2024 Lipase Level 50 U/L Normal 16-77 [facility] Comment on above: Performed By: #### A DIFF, LIP, WALTER, GFR, CBC, CMP, ANEU #### [facility] [address], [place] [address] #### HP #### [address] [address] XR ABDOMEN 2 VIEWS W/ DECUB/ ERECTon [...] Date: 04/28/2024 3:57:25 PM Ordering Provider: ALLI DACOSTA [facility] 04-21-2024 [facility] Telephone (KRYSMER) TATE BALTAZAR ([id number]) 1975 Date Time Provider Department 04/21/24 KAPIL HICKS During your visit today, we recorded the following information about you: Rabia Rangel 04/21/2024 4:56 PM Signed [employer] No-Show Documentation Tate Baltazar no showed for an appointment on 04/21/2024 with Leeann Owens PA-C. at [facility]. The patient was was scheduled for a [...] Third or Fourth No Show? Josey Rangel April 21, 2024 4:09 PM Allergies As [...] Change Date Reviewed: 04/20/2024 Reviewed by: Gustabo Melendez, RN - Fully Assessed Reason for Visit: [...] (FLONASE) 50 mcg/actuation nasal spray Use 1 [place] in each nostril two times a day [...] aura [G43.*03/07/2020 Os (more content not included)... [facility] ED NOTEon 04-20-2024 ED NOTE HNO ID: [id number] Author: THIERNO ESQUIVEL RN Service: ? Author [...] [facility] ED NOTE HNO ID: [id number] Author: GUSTABO MELENDEZ RN Service: Emergency Medicine Author Type: Registered Nurse Type: ED Notes Filed: 04/20/2024 16:32 Note Text: Nausea better. Oral hydration provided. Able to keep fluids down. [facility] ED NOTE HNO ID: [id number] Author: GUSTABO MELENDEZ RN Service: Emergency Medicine Author Type: Registered Nurse Type: ED Notes Filed: 04/20/2024 13:51 Note Text: Pt c/o nausea and vomiting since Thursday. States pain with vomiting. States had fever off and on. [place], warm, dry. No apparent distress. Alert and oriented. [facility] ED PROV NOTEon 04-20-2024 ED PROV NOTE HNO ID: [id number] Author: KAIN LEE MD Service: Emergency Medicine [...] or chest pain. 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 Palp (more content not included)... Normal [facility] XR CHEST 2V FRONTAL/LATon XR CHEST 2V [...] thoracic spine. IMPRESSION: No acute radiographic abnormality. Technical Documentation Specialist: PSCB Transcribe Date/Time: Apr 20 2024 3:38P Dictated by : ERIC GORMAN MD This examination was interpreted and the report reviewed and electronically signed by: ERIC GORMAN MD on Apr 20 2024 3:38PM EST [id number] Normal [facility] 36on 04-12-2024 36 GI staff to contact pt for scheduling. Normal [facility] 36 ----- Message from THANG Brooks CNP sent at 03/15/2024 10:11 AM EDT ----- Please schedule patient for [facility] location. Thank you. Normal [facility] Orthopedic Visit Reporton Orthopedic Visit Report [facility] [address] [place] [address] OFFICE VISIT Date of Service: 04/11/24 MR#: [id number] Acct: [id number] Name: TATE BALTAZAR Rep #: [id number] : 1975 Provider: Dr. Fred alanis MD Age/Sex: 49/M Location: [facility] Status: Signed Intake [...] by me, Dr. Fred Huber MD 04/11/24 5391. Part of today???s visit was documented by [...] Performing Provider: Fred Huber MD Performing Location: [facility] Administered by: Fred Huber MD on 04/11/24 10:16 Dose Route Admin Location Dispensed Lot Number Expiration Date [facility] Man ufacturer 20 mg intra-articular right knee 2 mL [id number] 04/09/25 [address]-1 [facility] Coding Level of Care Code [...] to infectio (more content not included)... Normal [facility] 36on 03-29-2024 36 Noted, thank you. Prior EGD and colonoscopy 07/25/2020 ()-LA Grade B esophagitis, 4 cm HH. Normal colonoscopy. Normal [facility] Orthopedic Visit Reporton Orthopedic Visit Report [facility] [address] [place] [address] OFFICE VISIT Date of Service: 03/29/24 MR#: [id number] Acct: [id number] Name: TATE BALTAZAR Rep #: [id number] : 1975 Provider: Dr. Fred alanis MD Age/Sex: 49/M Location: 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 Normal [facility] 36on 03-25-2024 36 Received faxed recor ds from [facility] and scanned into media. Thanks [facility] Orthopedic Visit Reporton Orthopedic Visit Report [facility] [place] [address] OFFICE VISIT Date of Service: 03/22/24 MR#: [id number] Acct: [id number] Name: TATE BALTAZAR Rep #: [id number] : 1975 Provider: Dr. Fred alanis MD Age/Sex: 49/M Location: [facility] Status: Signed Intake [...] No ecchymosis and No swelling Supplemental Info [facility] Imaging Services [address] [place] [address] Lower Ext Joint Only (Routine) MR#: [id number] Acct: [id number] Name: TATE BALTAZAR Rep #: [id number] : 1975 M 49 From: Mateo Canada DO PCP: Dr. Lanette Harkins, DO Status: REG CLI Study: Lower Ext Joint Only (Routine) Date of Exam: 03/19/24 Exam# [id number] Ordering Dr: Fred Huber MD :[id number] EXAM: MR RIGHT LOWER EXTREMITY WITHOUT INTRAVENOUS CONTRAST, KNEE CLINICAL INDICATION: pain TECHNIQUE: Multiplanar and multisequence MR images of the right knee without intravenous contrast. COMPARISON: Right knee radiographs, 02/29/2024. FINDINGS: BONES/JOINTS: Shallow trochlea indicating trochlear dysplasia. No bone marrow signal abnormality is otherwise identified. No fracture or dislocation. EXTEN (more content not included)... Normal [facility] Lower Ext Joint Only (Routin e)on 03-19-2024 Lower Ext Joint Only (Routine) [facility] Imaging Services [address] [place] [address] Lower Ext Joint Only (Routine) MR#: [id number] Acct: [id number] Name: TATE BALTAZAR Rep #: [id number] : 1975 M 49 From: Mateo montenegro DO PCP: Dr. Lanette Harkins DO Status: REG CLI Study: Lower Ext Joint Only (Routine) Date of Exam: 05/19/23 Exam# [id number] Ordering Dr: Fred Huber MD :[id number] EXAM: MR RIGHT LOWER EXTREMITY WITHOUT INTRAVENOUS [...] Lanette Harkins DO; Dr. Fred Huber MD Technical Documentation Specialist: Signed Normal [facility] 37on 03-15-2024 37 --Please call office with any questions or concerns! [phone] --request prior EGD and colonoscopy report from [facility] --Schedule EGD (upper endoscopy)Connor. --continue pantoprazole and Carafate --Avoid nonsteroidal anti-inflammatory [...] following the above evaluation and recommendations. Normal [facility] Office Visiton 03-15-2024 Follow-up visit [id number] Tim Baltazar [facility] 1975 M Date Provider Department Center 03/15/2024 [id number] [place] [facility] GAS None Family History Problem Relation Age of Onset Thyroid disease Mother Prostate cancer Father Family Status - Relation Status Age at Mother Father Level of Service:44601 [place] OFFICE/OUTPATIENT NEW MODERATE MDM 45 MINUTES Reason for Visit and Comments: New Patient [542] Abdominal Pain [235577] Normal [facility] Progress Noteon 03-15-2024 Progress Note [facility] GASTROENTEROLOGY - [address] [facility] [address] Dept: [phone] Dept Loc: [phone] Visit type: New Reason for Visit: New [...] awaiting procedure --request prior EGD/colonoscopy report from [facility] --may consider GES pending results of EGD [...] surgeries: appendectomy Prior EGD and colonoscopy at [facility]-unsure time, before 2005. Reports history of ulcers. [...] Use Topics (more content not included)... Normal [facility] COVPCRon 02-02-2024 SARS-CoV-2 (COVID-19) RNA JUDITH+probe Ql (Unsp spec) Negative Normal Negative [facility] Comment on above: Order Comment: STAT [...] positive results. Performed By: #### C OVPCR ####[place] [address] LABORATORYOrdered By: Wanda Crawford on 02-02-2024 SARS-CoV-2 [...] 11/06/2023 10:12:38 PM Ordering Provider: RAHUL FREEMAN [facility] ([place]) CASE MANAGEMon 09-13-2023 CASE MANAGEM HNO ID: [id number] Author: PINEDA HUSSEIN LSW Service: ASSESSMENT Author Type: Weapons Designer Type: Care Mgt Progress Note Filed: 09/13/2023 [...] Physician Primary Care Physician Name/Phone: Dr. Harkins [phone] Additional Information: N/A Pt. Will discharge home today w/basic needs. Family will transport pt. Home. SW will remain available should any further discharge planning needs arise. SIGNATURE: DENNIS Donato PATIENT NAME: Tate Baltazar DATE: September 13, 2023 TIME: 2:41 PM CONTACT #: [facility] CASE MGT INIT [facility] 2023 CASE MGT INIT [facility] ID: [id number] Author: PINEDA HUSSEIN LSW Service: ASSESSMENT Author Type: Weapons Designer Type: Care Mgt Initial Assessment Filed: 09/13/2023 14:41 Note Text: CARE MANAGEMENT: ASSESSMENT AND DISCHARGE PLAN SERVICE DATE: September 13, 2023 SERVICE TIME: 2:41 PM PCP: Kamron Pelaez Primary Contact: Extended Emergency Contact Information Primary Emergency Contact: Mirella Baltazar Mobile Relation: Spouse Secondary Emergency Contact: Robbi Baltazar [place] Mobile Relation: Father Admission Status: Observation Insurance Provider: [facility] PLAN MEDICAID OF [place] Discharge Planning requested by: Per Department Practice Potential Transition Plans Home Advance Directives Current Advance Directive: None Paint Technician Attempted to Assist with AD Completion: Yes [...] Be able to go home, General wellness [place] Explained: [place] Given: No Reason Not Given: [...] HHC, IV ATBs, DME) please call the immigration case manager covering this case. SIGNATURE: Pineda Hussein WAREHOUSE SHIPPING RECEIVING CLERK, MACHINE FITTER PATIENT NAME: Tate Baltazar DATE: September 13, 2023 TIME: 2:41 PM CONTACT #: Normal [facility] CBC panel Auto (Bld)on 09-12 Erythrocyte distribution width (RBC) [Ratio] 13.5 % Normal 11.5-15.0 [facility] Comment on above: Order Comment: Speci men Type: BLOOD SPECIMENOrdering Facility: [facility] Address: [address] [place] [address] Performed By: #### 5 8410-2 ####[facility] LABORATORYCLIA [id number] [address] Hematocrit (Bld) [Volume fraction] 37.9 % Low 39.0-51.0 [facility] Comment on above: Order Comment: Speci men Type: BLOOD SPECIMENOrdering Facility: [facility] Address: [address] [place] [address] Performed By: #### 5 8410-2 ####COLÓN LABORATORYCLIA [id number] [address] [place] Hemoglobin (Bld) [Mass/Vol] 13.5 g/dL Normal 13.0-17.0 [facility] Comment on above: Order Comment: Speci men Type: BLOOD SPECIMENOrdering Facility: [facility] Address: [address] [place] [address] Performed By: #### 5 8410-2 ####COLÓN LABORATORYCLIA [id number] [address] [place] [facility] MCH (RBC) [Entitic mass] 30.7 pg Normal 26.0-34.0 [facility] Comment on above: Order Comment: Speci men Type: BLOOD SPECIMENOrdering Facility: [facility] Address: [address] [place] [address] Performed By: #### 5 8410-2 ####COLÓN LABORATORYCLIA [id number] [address] MCHC (RBC) [Mass/Vol] 35.6 g/dL Normal 30.5-36.0 [facility] Comment on above: Order Comment: Speci men Type: BLOOD SPECIMENOrdering Facility: [facility] Address: [address] [place] [address] Performed By: #### 5 8410-2 ####COLÓN LABORATORYCLIA [id number] [place] [address] [place] MCV (RBC) [Entitic vol] 86.1 fL Normal 80.0-100.0 [facility] Comment on above: Order Comment: Speci men Type: BLOOD SPECIMENOrdering Facility: [facility] Address: [address] [place] [address] Performed By: #### 5 8410-2 ####COLÓN LABORATORYCLIA [id number] [address] [place] Nucleated RBC (Bld) [#/Vol] 10*3/uL Normal <0.01 [facility] Comment on above: Order Comment: Speci men Type: BLOOD SPECIMENOrdering Facility: [facility] Address: [address] [place] [address] Performed By: #### 5 8410-2 ####COLÓN LABORATORYCLIA [id number] [address] [place] Platelet mean volume (Bld) [Entitic vol] 9.1 fL Normal 9.0-12.7 [facility] Comment on above: Order Comment: Speci men Type: BLOOD SPECIMENOrdering Facility: [facility] Address: [address] [place] [address] Performed By: #### 5 8410-2 ####COLÓN LABORATORYCLIA [id number] [address] [place] Platelets (Bld) [#/Vol] 234 10*3/uL Normal 150-400 [facility] Comment on above: Order Comment: Speci men Type: BLOOD SPECIMENOrdering Facility: [facility] Address: [address] [place] [address] Performed By: #### 5 8410-2 ####COLÓN LABORATORYCLIA [id number] [address] [place] RBC (Bld) [#/Vol] 4.40 10*6/uL Normal 4.20-6.00 [facility] Comment on above: Order Comment: Speci men Type: BLOOD SPECIMENOrdering Facility: [facility] Address: [address] [address] Performed By: #### 5 8410-2 ####COLÓN LABORATORYCLIA [id number] [address] WBC (Bld) [#/Vol] 5.71 10*3/uL Normal 3.70-11.00 [facility] Comment on above: Order Comment: Speci men Type: BLOOD SPECIMENOrdering Facility: [facility] Address: [address] [place] [address] Performed By: #### 5 8410-2 ####COLÓN LABORATORYCLIA [id number] [address] CNDSon 09-13-2023 CNDS HNO ID: [id number] Author: GINI FAROOQ MD Service: Hospital Medicine [...] Attending Provider: Gini Farooq MD Primary Service: 4, [facility] MY CONDITION AT DISCHARGE: Stable REASON I [...] Myofascial pain syndrome STEPHANY (acute kidney injury) ([facility]) Resolved Problems: * No resolved hospital problems. [...] abdominal pain, nausea and vomiting. In the [place] emergency room the patient was found to [...] Problems as of 09/13/2023 Noted - Resolved [facility] Essential hypertension 10/01/2015 - Present Yes [...] results. FOLLOW-UP APPOINTMENTS ALREADY SCHEDULED WITH A [facility] PROVIDER: Future Appointments Date Time Provider Department Center 10/01/2023 10:45 AM Milena Barr APRN.[facility] 02/25/2024 11:15 AM [facility] ALLERGIES Allergen Reactions Hydrochlorothiazide Other: See Comments Sulfamethoxazole-Tr* Unknown, Other: See Comments Acetaminophen Other: See Comments Rebound headaches Acetaminophen-Codei* Unknown Doxycycline Hives Hydrocodone Other: See Comments Amite Juice Unknown Amite Oil Hives, Other: See Comments Pseudoephedrine Unkno (more content not included)... Normal [facility] Comprehensive metabolic 2000 panelon 09-13-2023 Albumin [Mass/Vol] 4.1 g/dL Normal 3.9-4.9 [facility] Comment on above: Order Comment: Brit galaviz Type: BLOOD SPECIMENOrdering Facility: [facility] Address: [address] [place] [address] Performed By: #### 1 9123-9, 95691-4 ####[facility] LABORATORYCLIA [id number] [place] [address] [place] ALP [Catalytic activity/Vol] 90 U/L Normal 38-113 [facility] Comment on above: Order Comment: Brit galaviz Type: BLOOD SPECIMENOrdering Facility: [facility] Address: [address] [place] [address] Performed By: #### 1 9123-9, 94724-5 ####[facility] LABORATORYCLIA [id number] [place] [address] [place] ALT [Catalytic activity/Vol] 29 U/L Normal 10-54 [facility] Comment on above: Order Comment: Speci men Type: BLOOD SPECIMENOrdering Facility: [facility] Address: [address] [place] [address] Performed By: #### 1 23-9, 13602-1 ####COLÓN LABORATORYCLIA [id number] [place] [address] [place] Anion gap [Moles/Vol] 10 mmol/L Normal 9-18 [facility] Comment on above: Order Comment: Speci men Type: BLOOD SPECIMENOrdering Facility: [facility] Address: [address] [place] [address] Performed By: #### 1 9, ####COLÓN LABORATORYCLIA [id number] [place] [address] [place] AST [Catalytic activity/Vol] 26 U/L Normal 14-40 [facility] Comment on above: Order Comment: Speci men Type: BLOOD SPECIMENOrdering Facility: [facility] Address: [address] [facility] [place] [address] Performed By: #### 1 23-9, 97578-4 ####COLÓN LABORATORYCLIA [id number] [place] [address] [place] Bilirubin [Mass/Vol] 0.9 mg/dL Normal 0.2-1.3 [facility] Comment on above: Order Comment: Speci men Type: BLOOD SPECIMENOrdering Facility: [facility] Address: [address] [facility] [place] [address] Performed By: #### 1 23-9, 61921-2 ####COLÓN LABORATORYCLIA [id number] [place] [address] [place] Calcium [Mass/Vol] 9.0 mg/dL Normal 8.5-10.2 [facility] Comment on above: Order Comment: Speci men Type: BLOOD SPECIMENOrdering Facility: [facility] Address: [address] [facility] [place] [address] Performed By: #### 1 23-9, 75885-0 ####COLÓN LABORATORYCLIA [id number] [place] [address] [place] Chloride [Moles/Vol] 103 mmol/L Normal 97-105 [facility] Comment on above: Order Comment: Brit galaviz Type: BLOOD SPECIMENOrdering Facility: [facility] Address: [address] [place] [address] Performed By: #### 1 9123-9, 47417-5 ####COLÓN LABORATORYCLIA [id number] [place] [address] [place] CO2 [Moles/Vol] 25 mmol/L Normal 22-30 [facility] Comment on above: Order Comment: Brit men Type: BLOOD SPECIMENOrdering Facility: [facility] Address: [address] [place] [address] Performed By: #### 1 9123-9, 56357-5 ####COLÓN LABORATORYCLIA [id number] [place] [address] [place] Creatinine [Mass/Vol] 1.26 mg/dL High 0.73-1.22 [facility] Comment on above: Order Comment: Brit galaviz Type: BLOOD SPECIMENOrdering Facility: [facility] Address: [address] [place] [address] Performed By: #### 1 9123-9, ####COLÓN LABORATORYCLIA [id number] [address] Creatinine and Glomerular filtration rate.predicted panel (S/P/Bld) 71 mL/min/1.73m??? Normal >=60 [facility] Comment on above: Order Comment: Brit men Type: BLOOD SPECIMENOrdering Facility: [facility] Address: [address] [place] [address] Result Comment: Gladis mated Glomerular Filtration Rate [...] reflect actual GFR. Performed By: #### 1 9123 ####COLÓN LABORATORYCLIA [id number] [place] [address] [place] Glucose [Mass/Vol] 106 mg/dL High 74-99 [facility] Comment on above: Order Comment: Brit galaviz Type: BLOOD SPECIMENOrdering Facility: [facility] Address: [address] [place] [address] Result Comment: The [place] [employer] (ADA) provides guidance for cutoff [...] Standards of Medical Care in Diabetes 2016, [employer]. Diabetes Care. 2016.39(Suppl 1). Performed By: #### 1 9123-01, ####COLÓN LABORATORYCLIA [id number] [place] [address] [place] Potassium [Moles/Vol] 3.2 mmol/L Low 3.7-5.1 [facility] Comment on above: Order Comment: Brit galaviz Type: BLOOD SPECIMENOrdering Facility: [facility] Address: [address] [place] [address] Performed By: #### 1 9123-01, ####COLÓN LABORATORYCLIA [id number] [place] [id number] [place] Protein [Mass/Vol] 6.4 g/dL Normal 6.3-8.0 [facility] Comment on above: Order Comment: Brit galaviz Type: BLOOD SPECIMENOrdering Facility: [facility] Address: [address] [place] [address] Performed By: #### 1 9, ####COLÓN LABORATORYCLIA [id number] [place] [address] [place] Sodium [Moles/Vol] 138 mmol/L Normal 136-144 [facility] Comment on above: Order Comment: Speci men Type: BLOOD SPECIMENOrdering Facility: [facility] Address: [address] [place] [id number] Performed By: #### 1 9123-9, 86011-8 ####COLÓN LABORATORYCLIA [id number] [place] [address] [facility] Urea nitrogen [Mass/Vol] 8 mg/dL Low 9-24 [facility] Comment on above: Order Comment: Speci men Type: BLOOD SPECIMENOrdering Facility: [facility] Address: [address] [place] [id number] Performed By: #### 1 9123-9, 90741-1 ####COLÓN LABORATORYCLIA [id number] [place] [id number] [facility] ECG COMPLETEon 09-13-2023 ECG COMPLETE Ventricular Rate : 8 0 BPM Atrial Rate : 80 BPM P-R Interval : 154 ms QRS Duration : 94 ms Q-T Interval : 398 ms QTC Calculation(Bazett) : 459 ms Calculated P [place] : 37 degrees Calculated R [place] : -23 degrees Calculated T [place] : -1 degrees NORMAL SINUS RHYTHM MINIMAL VOLTAGE CRITERIA FOR LVH, MAY BE NORMAL VARIANT ( R in aVL ) BORDERLINE ECG NO PREVIOUS ECGS AVAILABLE Confirmed by MD SPICER GREGORY () on 09/14/2023 8:29:45 AM NAME : TATE BALTAZAR PID : [id number] : 1975 Gender : Male Race : ORD : [id number] Procedure Date : Sep 13 2023 01:21:29 [...] MD SPICER GREGORY Referred By : GINO WOODS Acquired by : [id number], Normal [facility] Magnesium SerPl-mCncon 09-12 Magnesium [Mass/Vol] 1.8 mg/dL Normal 1.7-2.3 [facility] Comment on above: Order Comment: Speci men Type: BLOOD SPECIMENOrdering Facility: [facility] Address: [address] [place] [id number] Performed By: #### 1 9123-9, 75516-7 ####[facility] LABORATORYCLIA [id number] [address] ALLIED HEALTHon 09-12-2023 ALLIED HEALTH HNO ID: [id number] Author: JC CERVANTES RDMS Service: Radiology Author Type: Tire Bagger Type: Allied Health Filed: 09/12/2023 22:17 Note [...] PATIENT PRESENTS WITH AN IMPLANTABLE OR ATTACHED MATERIAL REPROCESSING ASSOCIATE: No RADIOLOGY DEPARTMENT: Ultrasound PERIPHERAL IV DATA: Not applicable SIGNED BY: Jc Ang RDMS September 12, 2023 10:16 PM Normal [facility] HISTORY PHYSICALon HISTORY PHYSICAL HNO ID: [id number] Author: ALICJA VASQUES APRN.CNP Service: Hospital Medicine [...] Date: 09/13/2023 Time: 7:17 AM DEPARTMENT OF HOSPITAL MEDICINE HISTORY AND PHYSICAL EXAM SERVICE DATE: 09/12/2023 SERVICE TIME: 8:25 PM Primary Care Physician: Lanette Harkins DO NIGHT AND WEEKEND COVERAGE: [facility] COVERAGE: Days: [phone], please page attending physician. Nights: [phone], please page [place] [facility] Night coverage pager [phone]. Subjective CHIEF COMPLAINT: Abdominal pain HPI: This [...] still has gallbladder. Notes that he tried mvhg-kcn-qaausxn remedies at home including Tylenol and ibuprofen although these did not help as he could not keep anything down. He also sought care at the [place] emergency room on 09/10/2023 during which a [...] note, the patient was recently admitted to [place] from 06/01/2023 through 06/02/2023 with pneumonia as [...] new swelling, or new numbness/tingling. In the [place] emergency room the patient was found to [...] Procedure Laterality Date APPENDECTOMY CARPAL TUNNEL Left 2015 COLONOSCOPY 20's with EGD EGD TRANSORAL BIOPSY SINGLE/MULTIPLE 10/02/2015 EXCISION PILONIDAL CYST/SINUS EXTENSIVE 07/05/2010 closed ORTHOPEDICS SURGERY HX Right 12/2022 Right ROTATOR cUFF PAST SURGICAL HISTORY OF right knee surgery TONSILLECTOMY PRIMARY/SECONDARY Tonsillectomy VASECTOMY UNI/BI SPX W/POSTOP SEMEN EXAMS Bilateral 05/23/2016 FAMILY HISTORY Problem Relation Age of Onset Prostate Cancer (more content not included)... Normal [facility] Osmolality SerPlon Osmolality [Osmolality] 290 mosm/kg Normal 275-300 [facility] Comment on above: Order Comment: Speci men Type: BLOOD SPECIMENOrdering Facility: [facility] Address: [address] [place] [address] Performed By: #### 2 692-2 ####[facility] LABIA [id number] [place] [address] [place] Osmolality Uron 09-12-2023 Osmolality (U) [Osmolality] 502 mosm/kg Normal 50-1200 [facility] Comment on above: Order Comment: Speci men Type: URINE SPECIMENOrdering Facility: [facility] Address: [address] [place] [address] Performed By: #### 2 695-5 ####[facility] LABSOU[facility] [id number] [place] [address] [place] Sodium ?Tm Ur-sCncon 024 Sodium Unsp time (U) [Moles/Vol] 44 mmol/L Normal 14-216 [facility] Comment on above: Order Comment: Speci men Type: URINE SPECIMENOrdering Facility: [facility] Address: [address] [place] [address] Performed By: #### 3 5678-2 ####[facility] LABIA [id number] [place] [id number] [place] US KIDNEY/BLADDERon 09-12-19 24 US KIDNEY/BLADDER * * *Final Report* * * DATE OF EXAM: Sep 12 2023 10:13PM MDU 1055 - US KIDNEY/BLADDER / PROCEDURE REASON: [...] appearance. IMPRESSION: No hydronephrosis or nephrolithiasis demonstrated. Technical Documentation Specialist: LALA Transcribe Date/Time: Sep 13 2023 12:00A Dictated by : RADHA BALLARD MD This examination was interpreted and the report reviewed and electronically signed by: RADHA BALLARD MD on Sep 13 2023 12:01AM EST [id number] [facility] TATE BALTAZAR ([id number]) 1975 M Date Time Provider Department 08/20/23 11:15 AM MIREYA SWEET [facility] During your visit today, we recorded [...] pain all the time. Patient Entered Data [employer] No data to display Spasticity NRS 12/15/2022 [...] cognition, language or prosody on interview. Formal LATRINE CLEANER testing was not performed today. Strength Right [...] which included preparing to see the patient, mtsd-ie-cbrc patient care, completing clinical documentation, performing a medically appropriate examination, counseling and educating the patient/family/caregiver, and ordering medications, tests, or procedures. JON Duque, Mireya Mcginnis PA-C 08/20/2023 11:24 AM Signed Flexeril (Cyclobenzaprine) [...] - U (more content not included)... Normal [facility] CBC W Auto Differential pane l (Bld)on 06-02-2023 Basophils (Bld) [#/Vol] 0.08 10*3/uL Normal <0.11 [facility] Comment on above: Order Comment: Speci men Type: BLOOD SPECIMENOrdering Facility: [facility] Address: [address] [place] [address] Performed By: #### 5 7021-8 ####COLÓN LABORATORYCLIA [id number] [place] [address] [place] Basophils/100 WBC (Bld) 1.0 % Normal [facility] Comment on above: Order Comment: Speci men Type: BLOOD SPECIMENOrdering Facility: [facility] Address: [address] [place] [address] Performed By: #### 5 7021-8 ####COLÓN LABORATORYCLIA [id number] [address] [place] Differential cell count method Nom (Bld) Manual Normal [facility] Comment on above: Order Comment: Speci men Type: BLOOD SPECIMENOrdering Facility: [facility] Address: [address] [place] [address] Performed By: #### 5 7021-8 ####COLÓN LABORATORYCLIA [id number] [place] [address] [place] Eosinophils (Bld) [#/Vol] 0.08 10*3/uL Normal <0.46 [facility] Comment on above: Order Comment: Speci men Type: BLOOD SPECIMENOrdering Facility: [facility] Address: [address] [place] [address] Performed By: #### 5 7021-8 ####COLÓN LABORATORYCLIA [id number] [place] [address] [place] Eosinophils/100 WBC (Bld) 1.0 % Normal [facility] Comment on above: Order Comment: Speci men Type: BLOOD SPECIMENOrdering Facility: [facility] Address: [address] [place] [address] Performed By: #### 5 7021-8 ####COLÓN LABORATORYCLIA [id number] [place] [address] [place] Erythrocyte distribution width (RBC) [Ratio] 13.3 % Normal 11.5-15.0 [facility] Comment on above: Order Comment: Speci men Type: BLOOD SPECIMENOrdering Facility: [facility] Address: [address] [place] [address] Performed By: #### 5 7021-8 ####COLÓN LABORATORYCLIA [id number] [address] [place] Hematocrit (Bld) [Volume fraction] 37.4 % Low 39.0-51.0 [facility] Comment on above: Order Comment: Speci men Type: BLOOD SPECIMENOrdering Facility: [facility] Address: [address] [place] [address] Performed By: #### 5 7021-8 ####COLÓN LABORATORYCLIA [id number] [address] [place] [facility] Hemoglobin (Bld) [Mass/Vol] 13.1 g/dL Normal 13.0-17.0 [facility] Comment on above: Order Comment: Speci men Type: BLOOD SPECIMENOrdering Facility: [facility] Address: [address] [place] [address] Performed By: #### 5 7021-8 ####COLÓN LABORATORYCLIA [id number] [place] [address] [place] Lymphocytes (Bld) [#/Vol] 2.59 10*3/uL Normal 1.00-4.00 [facility] Comment on above: Order Comment: Speci men Type: BLOOD SPECIMENOrdering Facility: [facility] Address: [address] [place] [address] Performed By: #### 5 7021-8 ####COLÓN LABORATORYCLIA [id number] [address] [place] Lymphocytes/100 WBC (Bld) 34.0 % Normal [facility] Comment on above: Order Comment: Speci men Type: BLOOD SPECIMENOrdering Facility: [facility] Address: [address] [place] [address] Performed By: #### 5 7021-8 ####COLÓN LABORATORYCLIA [id number] [address] [place] MCH (RBC) [Entitic mass] 30.7 pg Normal 26.0-34.0 [facility] Comment on above: Order Comment: Speci men Type: BLOOD SPECIMENOrdering Facility: [facility] Address: [address] [place] [address] Performed By: #### 5 7021-8 ####COLÓN LABORATORYCLIA [id number] [address] [place] MCHC (RBC) [Mass/Vol] 35.0 g/dL Normal 30.5-36.0 [facility] Comment on above: Order Comment: Speci men Type: BLOOD SPECIMENOrdering Facility: [facility] Address: [address] [place] [address] Performed By: #### 5 7021-8 ####COLÓN LABORATORYCLIA [id number] [address] [place] MCV (RBC) [Entitic vol] 87.6 fL Normal 80.0-100.0 [facility] Comment on above: Order Comment: Speci men Type: BLOOD SPECIMENOrdering Facility: [facility] Address: [address] [place] [address] Performed By: #### 5 7021-8 ####COLÓN LABORATORYCLIA [id number] [place] [address] [place] Monocytes (Bld) [#/Vol] 0.61 10*3/uL Normal <0.87 [facility] Comment on above: Order Comment: Speci men Type: BLOOD SPECIMENOrdering Facility: [facility] Address: [address] [place] [address] Performed By: #### 5 7021-8 ####COLÓN LABORATORYCLIA [id number] [address] [place] Monocytes/100 WBC (Bld) 8.0 % Normal [facility] Comment on above: Order Comment: Speci men Type: BLOOD SPECIMENOrdering Facility: [facility] Address: [address] [place] [address] Performed By: #### 5 7021-8 ####COLÓN LABORATORYCLIA [id number] [address] [place] MYELO% 1.0 % Normal [facility] Comment on above: Order Comment: Speci men Type: BLOOD SPECIMENOrdering Facility: [facility] Address: [address] [place] [address] Performed By: #### 5 7021-8 ####COLÓN LABORATORYCLIA [id number] [place] [address] [place] Neutrophils (Bld) [#/Vol] 4.20 10*3/uL Normal 1.45-7.50 [facility] Comment on above: Order Comment: Speci men Type: BLOOD SPECIMENOrdering Facility: [facility] Address: [address] [place] [address] Performed By: #### 5 7021-8 ####COLÓN LABORATORYCLIA [id number] [place] [address] [place] Neutrophils/100 WBC (Bld) 55.0 % Normal [facility] Comment on above: Order Comment: Speci men Type: BLOOD SPECIMENOrdering Facility: [facility] Address: [address] [place] [address] Performed By: #### 5 7021-8 ####COLÓN LABORATORYCLIA [id number] [place] [address] [place] Nucleated RBC (Bld) [#/Vol] 10*3/uL Normal <0.01 [facility] Comment on above: Order Comment: Speci men Type: BLOOD SPECIMENOrdering Facility: [facility] Address: [address] [place] [address] Performed By: #### 5 7021-8 ####COLÓN LABORATORYCLIA [id number] [place] [address] [place] Nucleated RBC/100 WBC (Bld) [Ratio] 0.0 /100 WBC Normal [facility] Comment on above: Order Comment: Speci men Type: BLOOD SPECIMENOrdering Facility: [facility] Address: [address] [place] [address] Performed By: #### 5 7021-8 ####COLÓN LABORATORYCLIA [id number] [place] [address] [place] Platelet mean volume (Bld) [Entitic vol] 9.6 fL Normal 9.0-12.7 [facility] Comment on above: Order Comment: Speci men Type: BLOOD SPECIMENOrdering Facility: [facility] Address: [address] [facility] [place] [address] Performed By: #### 5 7021-8 ####COLÓN LABORATORYCLIA [id number] [address] [place] Platelets (Bld) [#/Vol] 258 10*3/uL Normal 150-400 [facility] Comment on above: Order Comment: Speci men Type: BLOOD SPECIMENOrdering Facility: [facility] Address: [address] [facility] [place] [address] Performed By: #### 5 7021-8 ####COLÓN LABORATORYCLIA [id number] [address] [place] Platelets Estimate (Bld) [#/Vol] Adequate Normal [facility] Comment on above: Order Comment: Speci men Type: BLOOD SPECIMENOrdering Facility: [facility] Address: [place] [address] Performed By: #### 5 7021-8 ####COLÓN LABORATORYCLIA [id number] [place] [address] [place] RBC (Bld) [#/Vol] 4.27 10*6/uL Normal 4.20-6.00 [facility] Comment on above: Order Comment: Speci men Type: BLOOD SPECIMENOrdering Facility: [facility] Address: [place] [address] Performed By: #### 5 7021-8 ####COLÓN LABORATORYCLIA [id number] [address] [place] RED CELL MORPH Reviewed: unremarkable Normal [facility] Comment on above: Order Comment: Speci men Type: BLOOD SPECIMENOrdering Facility: [facility] Address: [place] [address] Performed By: #### 5 7021-8 ####COLÓN LABORATORYCLIA [id number] [place] [address] [place] WBC (Bld) [#/Vol] 7.63 10*3/uL Normal 3.70-11.00 [facility] Comment on above: Order Comment: Rondaedmundo galaviz Type: BLOOD SPECIMENOrdering Facility: [facility] Address: [place] [address] Performed By: #### 5 7021-8 ####COLÓN LABORATORYCLIA [id number] [address] WBC Left Shift Ql (Bld) Present Normal [facility] Comment on above: Order Comment: Brit galaviz Type: BLOOD SPECIMENOrdering Facility: [facility] Address: [address] [facility] [place] [id number] Performed By: #### 5 7021-8 ####COLÓN LABORATORYCLIA [id number] [address] CNDSon 06-02-2023 CNDS HNO ID: [id number] Author: YFN BLANCA MD Service: Hospital Medicine [...] Provider: Yfn Blanca MD Primary Service: 2, [facility] MY CONDITION AT DISCHARGE: Stable REASON I [...] call for appointment?: Yes Lanette Harkins DO [phone] [facility] [place] [address] [facility] [address] PCP Requested Referral Follow-Up Appointment When: In 4 weeks Comment - [phone] Patient/Parents to call for appointment?: Scheduled Charmaine [...] Left ventricular (more content not included)... Normal [facility] Comprehensive metabolic 2000 panelon 06-02-2023 Albumin [Mass/Vol] 3.6 g/dL Low 3.9-4.9 [facility] Comment on above: Order Comment: Brit galaviz Type: BLOOD SPECIMENOrdering Facility: [facility] Address: [address] [place] [address] Performed By: #### 1 23-9, ####[facility] LABORATORYCLIA [id number] [place] [address] [place] ALP [Catalytic activity/Vol] 84 U/L Normal 38-113 [facility] Comment on above: Order Comment: Brit galaviz Type: BLOOD SPECIMENOrdering Facility: [facility] Address: [address] [place] [address] Performed By: #### 1 23-9, ####W[facility] LABORATORYCLIA [id number] [place] [address] [place] ALT [Catalytic activity/Vol] 39 U/L Normal 10-54 [facility] Comment on above: Order Comment: Brit galaviz Type: BLOOD SPECIMENOrdering Facility: [facility] Address: [address] [place] [address] Performed By: #### 1 23-9, ####COLÓN LABORATORYCLIA [id number] [place] [address] [place] Anion gap [Moles/Vol] 8 mmol/L Low 9-18 [facility] Comment on above: Order Comment: Brit galaviz Type: BLOOD SPECIMENOrdering Facility: [facility] Address: [address] [facility] [place] [address] Performed By: #### 1 23-9, 83135-3 ####COLÓN LABORATORYCLIA [id number] [place] [address] [place] AST [Catalytic activity/Vol] 21 U/L Normal 14-40 [facility] Comment on above: Order Comment: Speci men Type: BLOOD SPECIMENOrdering Facility: [facility] Address: [place] [address] Performed By: #### 1 23-9, ####COLÓN LABORATORYCLIA [id number] [place] [address] [place] Bilirubin [Mass/Vol] 0.4 mg/dL Normal 0.2-1.3 [facility] Comment on above: Order Comment: Speci men Type: BLOOD SPECIMENOrdering Facility: [facility] Address: [place] [address] Performed By: #### 1 239, ####COLÓN LABORATORYCLIA [id number] [place] [address] [place] Calcium [Mass/Vol] 8.8 mg/dL Normal 8.5-10.2 [facility] Comment on above: Order Comment: Speci men Type: BLOOD SPECIMENOrdering Facility: [facility] Address: [address] [place] [address] Performed By: #### 1 239, ####COLÓN LABORATORYCLIA [id number] [place] [address] [place] Chloride [Moles/Vol] 103 mmol/L Normal 97-105 [facility] Comment on above: Order Comment: Speci men Type: BLOOD SPECIMENOrdering Facility: [facility] Address: [place] [address] Performed By: #### 1 23-9, ####COLÓN LABORATORYCLIA [id number] [place] [address] [place] CO2 [Moles/Vol] 29 mmol/L Normal 22-30 [facility] Comment on above: Order Comment: Speci men Type: BLOOD SPECIMENOrdering Facility: [facility] Address: [address] [place] [address] Performed By: #### 1 9123-9, ####COLÓN LABORATORYCLIA [id number] [address] [place] [facility] Creatinine [Mass/Vol] 1.04 mg/dL Normal 0.73-1.22 [facility] Comment on above: Order Comment: Brit anastacia Type: BLOOD SPECIMENOrdering Facility: [facility] Address: [address] [place] [address] Performed By: #### 1 9123-9, ####COLÓN LABORATORYCLIA [id number] [address] Creatinine and Glomerular filtration rate.predicted panel (S/P/Bld) 90 mL/min/1.73m??? Normal >=60 [facility] Comment on above: Order Comment: Brit anastacia Type: BLOOD SPECIMENOrdering Facility: [facility] Address: [address] [place] [address] Result Comment: Gladis mated Glomerular Filtration Rate [...] Performed By: #### 1 9123-9, ####COLÓN LABORATORYCLIA [id number] [address] [place] Glucose [Mass/Vol] 87 mg/dL Normal 74-99 [facility] Comment on above: Order Comment: Brit galaviz Type: BLOOD SPECIMENOrdering Facility: [facility] Address: [address] [place] [address] Result Comment: The [place] Diabetes Association (ADA) provides guidance for cutoff [...] Standards of Medical Care in Diabetes 2016, [place] Diabetes Association. Diabetes Care. 2016.39(Suppl 1). Performed By: #### 1 23-9, ####COLÓN LABORATORYCLIA [id number] [place] [address] [place] Potassium [Moles/Vol] 3.7 mmol/L Normal 3.7-5.1 [facility] Comment on above: Order Comment: Brit galaviz Type: BLOOD SPECIMENOrdering Facility: [facility] Address: [address] [place] [address] Performed By: #### 1 23-9, ####COLÓN LABORATORYCLIA [id number] [place] [address] [place] Protein [Mass/Vol] 5.9 g/dL Low 6.3-8.0 [facility] Comment on above: Order Comment: Brit galaviz Type: BLOOD SPECIMENOrdering Facility: [facility] Address: [address] [place] [address] Performed By: #### 1 9122-9, ####COLÓN LABORATORYCLIA [id number] [address] [place] Sodium [Moles/Vol] 140 mmol/L Normal 136-144 [facility] Comment on above: Order Comment: Brit galaviz Type: BLOOD SPECIMENOrdering Facility: [facility] Address: [address] [place] [address] Performed By: #### 1 23-9, ####COLÓN LABORATORYCLIA [id number] [place] [address] [place] Urea nitrogen [Mass/Vol] 10 mg/dL Normal 9-24 [facility] Comment on above: Order Comment: Brit galaviz Type: BLOOD SPECIMENOrdering Facility: [facility] Address: [address] [place] [address] Performed By: #### 1 9123-9, 78014-0 ####[facility] LABORATORYCLIA [id number] [place] [address] [place] HbA1c (Bld)on 06-02-2023 Average glucose Estimated from glycated hemoglobin (Bld) [Mass/Vol] 117 mg/dL Normal [facility] Comment on above: Order Comment: Speci men Type: BLOOD SPECIMENOrdering Facility: [facility] Address: [address] [place] [address] Result Comment: eAG: (Estimated average glucose) is a calculated value from HgbA1c and is service support representative of the average blood glucose level in the last 2-3 month period. Performed By: #### 5 5454-3 ####[facility] LABIA [id number] [address] OF [facility] HbA1c (Bld) [Mass fraction] 5.7 % High 4.3-5.6 [facility] Comment on above: Order Comment: Specedmundo galaviz Type: BLOOD SPECIMENOrdering Facility: [facility] Address: [address] [place] [address] Result Comment: Amer [place] Diabetes Association guidelines indicate that patients with HgbA1c in the range 5.7-6.4% are at increased risk for development of diabetes, and intervention by lifestyle modification may be beneficial. HgbA1c greater or equal to 6.5% is considered diagnostic of diabetes. Performed By: #### 5 5454-3 ####[facility] LABIA [id number] [address] [place] MYCOPLASMA PNEUM PCRon 06-02 MYCOPLASMA [...] developed and its performance characteristics determined by [facility]. It has not been cleared or approved by the US Food and Drug Administration. This test was performed in a CLIA certified laboratory and is intended for clinical purposes. Performed By: [facility] [address] [place] [address] [place] [address] Carpet Cutter: Mal Hooker MD, PhD CLIA Number: [id number] Normal [facility] Comment on above: Performed By: #### M YCPCR ####[facility] LABORATORIESCLIA [id number] [place] [address] Magnesium SerPl-mCncon 06-02 Magnesium [Mass/Vol] 2.2 mg/dL Normal 1.7-2.3 [facility] Comment on above: Order Comment: Speci men Type: BLOOD SPECIMENOrdering Facility: [facility] [facility] Address: [address] [place] [address] Performed By: #### 1 9123-9, 07786-6 ####[facility] LABORATORYCLIA [id number] [address] [place] STAPH AUREUS PCRon 4 S. aureus and MRSA panel JUDITH+probe (Nose) Normal Negative [facility] Comment on above: Order Comment: Speci men Type: SWAB OF INTERNAL NOSEOrdering Facility: [facility] Address: [address] [place] [address] Result Comment: Nega tive for Staphylococcus aureus by PCR. Negative for MRSA by PCR Performed By: #### S APCR ####[facility] LABCLIA [id number] [facility]ITALDESK [id number] [place] [address] [place] ALLIED HEALTHon 06-01-2023 ALLIED HEALTH HNO ID: [id number] Author: ALEXANDREA ROBERTO, awning installer Service: Radiology Author Type: Architectural Examiner Type: Allied Health Filed: 06/01/2023 08:15 Note [...] IV DATA: Not applicable SIGNED BY: Alexandrea Roberto, awning installer June 01, 2023 8:03 AM Normal [facility] CBC W Auto Differential pane l (Bld)on 06-01-2023 Basophils (Bld) [#/Vol] 0.03 10*3/uL Normal <0.11 [facility] Comment on above: Order Comment: Speci men Type: BLOOD SPECIMENOrdering Facility: [facility] Address: [address] [place] [address] Performed By: #### 5 7021-8 ####[facility] LABORATORYCLIA [id number] [place] [address] [place] Basophils/100 WBC (Bld) 0.4 % Normal [facility] Comment on above: Order Comment: Speci men Type: BLOOD SPECIMENOrdering Facility: [facility] Address: [address] [place] [address] Performed By: #### 5 7021-8 ####[facility] LABORATORYCLIA [id number] [place] [address] [place] Differential cell count method Nom (Bld) Auto Normal [facility] Comment on above: Order Comment: Speci men Type: BLOOD SPECIMENOrdering Facility: [facility] Address: [address] [place] [address] Performed By: #### 5 7021-8 ####[facility] LABORATORYCLIA [id number] [place] [address] [place] Eosinophils (Bld) [#/Vol] 0.04 10*3/uL Normal <0.46 [facility] Comment on above: Order Comment: Speci men Type: BLOOD SPECIMENOrdering Facility: [facility] Address: [address] [place] [address] Performed By: #### 5 7021-8 ####[facility] LABORATORYCLIA [id number] [place] [address] [place] Eosinophils/100 WBC (Bld) 0.5 % Normal [facility] Comment on above: Order Comment: Speci men Type: BLOOD SPECIMENOrdering Facility: [facility] Address: [address] [place] [address] Performed By: #### 5 7021-8 ####[facility] LABORATORYCLIA [id number] [place] [address] [place] Erythrocyte distribution width (RBC) [Ratio] 13.5 % Normal 11.5-15.0 [facility] Comment on above: Order Comment: Speci men Type: BLOOD SPECIMENOrdering Facility: [facility] Address: [address] [place] [address] Performed By: #### 5 7021-8 ####[facility] LABORATORYCLIA [id number] [place] [address] [place] Hematocrit (Bld) [Volume fraction] 37.2 % Low 39.0-51.0 [facility] Comment on above: Order Comment: Speci men Type: BLOOD SPECIMENOrdering Facility: [facility] Address: [address] [place] [address] Performed By: #### 5 7021-8 ####COL[facility] LABORATORYCLIA [id number] [place] [address] [place] Hemoglobin (Bld) [Mass/Vol] 12.4 g/dL Low 13.0-17.0 [facility] Comment on above: Order Comment: Speci men Type: BLOOD SPECIMENOrdering Facility: [facility] Address: [address] [place] [address] Performed By: #### 5 7021-8 ####[facility] LABORATORYCLIA [id number] [place] [address] [place] Immature granulocytes (Bld) [#/Vol] 0.08 10*3/uL Normal <0.10 [facility] Comment on above: Order Comment: Speci men Type: BLOOD SPECIMENOrdering Facility: [facility] Address: [address] [place] [address] Performed By: #### 5 7021-8 ####COL[facility] LABORATORYCLIA [id number] [place] [address] [place] Immature granulocytes/100 WBC (Bld) 0.9 % Normal [facility] Comment on above: Order Comment: Speci men Type: BLOOD SPECIMENOrdering Facility: [facility] Address: [address] [place] [address] Performed By: #### 5 7021-8 ####COL[facility] LABORATORYCLIA [id number] [place] [address] [place] Lymphocytes (Bld) [#/Vol] 2.07 10*3/uL Normal 1.00-4.00 [facility] Comment on above: Order Comment: Speci men Type: BLOOD SPECIMENOrdering Facility: [facility] Address: [address] [place] [address] Performed By: #### 5 7021-8 ####[facility] LABORATORYCLIA [id number] [address] STATES [facility] Lymphocytes/100 WBC (Bld) 24.5 % Normal [facility] Comment on above: Order Comment: Speci men Type: BLOOD SPECIMENOrdering Facility: [facility] Address: [address] [place] [address] Performed By: #### 5 7021-8 ####[facility] LABORATORYCLIA [id number] [address] [place] MCH (RBC) [Entitic mass] 29.2 pg Normal 26.0-34.0 [facility] Comment on above: Order Comment: Speci men Type: BLOOD SPECIMENOrdering Facility: [facility] Address: [address] [place] [address] Performed By: #### 5 7021-8 ####[facility] LABORATORYCLIA [id number] [address] [place] MCHC (RBC) [Mass/Vol] 33.3 g/dL Normal 30.5-36.0 [facility] Comment on above: Order Comment: Speci men Type: BLOOD SPECIMENOrdering Facility: [facility] Address: [address] [place] [address] Performed By: #### 5 7021-8 ####[facility] LABORATORYCLIA [id number] [address] MCV (RBC) [Entitic vol] 87.7 fL Normal 80.0-100.0 [facility] Comment on above: Order Comment: Speci men Type: BLOOD SPECIMENOrdering Facility: [facility] Address: [address] [place] [address] Performed By: #### 5 7021-8 ####[facility] LABORATORYCLIA [id number] [place] [address] [place] Monocytes (Bld) [#/Vol] 0.60 10*3/uL Normal <0.87 [facility] Comment on above: Order Comment: Speci men Type: BLOOD SPECIMENOrdering Facility: [facility] Address: [address] [place] [address] Performed By: #### 5 7021-8 ####[facility] LABORATORYCLIA [id number] [place] [address] [place] Monocytes/100 WBC (Bld) 7.1 % Normal [facility] Comment on above: Order Comment: Speci men Type: BLOOD SPECIMENOrdering Facility: [facility] Address: [address] [place] [address] Performed By: #### 5 7021-8 ####[facility] LABORATORYCLIA [id number] [place] [address] [place] Neutrophils (Bld) [#/Vol] 5.62 10*3/uL Normal 1.45-7.50 [facility] Comment on above: Order Comment: Speci men Type: BLOOD SPECIMENOrdering Facility: [facility] Address: [address] [place] [address] Performed By: #### 5 7021-8 ####[facility] LABORATORYCLIA [id number] [place] [address] [place] Neutrophils/100 WBC (Bld) 66.6 % Normal [facility] Comment on above: Order Comment: Speci men Type: BLOOD SPECIMENOrdering Facility: [facility] Address: [address] [place] [address] Performed By: #### 5 7021-8 ####[facility] LABORATORYCLIA [id number] [place] [address] [place] Nucleated RBC (Bld) [#/Vol] 10*3/uL Normal <0.01 [facility] Comment on above: Order Comment: Speci men Type: BLOOD SPECIMENOrdering Facility: [facility] Address: [address] [place] [address] Performed By: #### 5 7021-8 ####[facility] LABORATORYCLIA [id number] [place] [address] [place] Nucleated RBC/100 WBC (Bld) [Ratio] 0.0 /100 WBC Normal [facility] Comment on above: Order Comment: Speci men Type: BLOOD SPECIMENOrdering Facility: [facility] Address: [address] [facility] [place] [address] Performed By: #### 5 7021-8 ####[facility] LABORATORYCLIA [id number] [place] [address] [place] Platelet mean volume (Bld) [Entitic vol] 9.9 fL Normal 9.0-12.7 [facility] Comment on above: Order Comment: Speci men Type: BLOOD SPECIMENOrdering Facility: [facility] Address: [address] [facility] [place] [address] Performed By: #### 5 7021-8 ####[facility] LABORATORYCLIA [id number] [place] [address] [place] Platelets (Bld) [#/Vol] 254 10*3/uL Normal 150-400 [facility] Comment on above: Order Comment: Speci men Type: BLOOD SPECIMENOrdering Facility: [facility] Address: [address] [facility] [place] [address] Performed By: #### 5 7021-8 ####[facility] LABORATORYCLIA [id number] [place] [address] [place] RBC (Bld) [#/Vol] 4.24 10*6/uL Normal 4.20-6.00 [facility] Comment on above: Order Comment: Speci men Type: BLOOD SPECIMENOrdering Facility: [facility] Address: [place] [address] Performed By: #### 5 7021-8 ####[facility] LABORATORYCLIA [id number] [place] [address] [place] WBC (Bld) [#/Vol] 8.44 10*3/uL Normal 3.70-11.00 [facility] Comment on above: Order Comment: Speci men Type: BLOOD SPECIMENOrdering Facility: [facility] Address: [address] [place] [address] Performed By: #### 5 7021-8 ####COL[facility] LABORATORYCLIA [id number] [place] [address] [place] CONSULTon 06-01-2023 CONSULT HNO ID: [id number] Author: REAL HIGGINS PA-C Service: Neurology General Author Type: Physician Fall Intern Type: Consults Filed: 06/01/2023 11:07 Note Text: TELENEUROLOGY VISIT - NEW CONSULTATION Name and :Tate Baltazar 1975 Patient consented to teleneurology visit on order for consult. New Patient: I'm Real Higgins PA-C , I'm a licensed in the [facility]. I want to confirm your location in [place]. Virtual visits are a convenient way for us to meet for the first time, but there are some situations in which an in-person evaluation may be required at a later time. I want to check in to confirm your consent to be seen virtually today. The Teleneurologist or CADEN is available from 8 am to 5 pm on weekdays. On weekends, at [facility], the Teleneurologist or CADEN is available from 8 am to 5 pm, [facility] 8 am to 12 pm, [facility] 1 pm to 5 pm, [facility] 8 am to 12 pm, [facility] 1 pm to 5 pm. Statutory holidays do not have teleneuro coverage. [facility]: During Off hours for Teleneurology please page (not call) [place] [facility] [phone] sound effects person for concerns. [facility]: During Off hours for Teleneurology please page (not call) [place] [facility] [phone] sound effects person for concerns. [facility]: There is no off-hours coverage for Teleneurology. [...] breath, diarrhea, constipation, dysuria, lower extremity edema. [place] ED Course: Afebrile, hypertensive with BP 159/99, [...] on Zithromax and Rocephin. Patient admitted to [facility] under the hospital medicine service for management [...] years old. Had blurred vision following fall but this has since improved. No fevers, chills. No doubl (more content not included)... Normal [facility] Comprehensive metabolic 2000 panelon 06-01-2023 Albumin [Mass/Vol] 3.6 g/dL Low 3.9-4.9 [facility] Comment on above: Order Comment: Brit galaviz Type: BLOOD SPECIMENOrdering Facility: [facility] Address: [address] [place] [address] Performed By: #### 3 3959-8, LIPNF, , ####[facility] LABORATORYCLIA [id number] [address] STATES OF [facility] ALP [Catalytic activity/Vol] 74 U/L Normal 38-113 [facility] Comment on above: Order Comment: Brit galaviz Type: BLOOD SPECIMENOrdering Facility: [facility] Address: [address] [place] [address] Performed By: #### 3 3959-8, LIPNF, , ####[facility] LABORATORYCLIA [id number] [address] STATES OF [facility] ALT [Catalytic activity/Vol] 35 U/L Normal 10-54 [facility] Comment on above: Order Comment: Brit galaviz Type: BLOOD SPECIMENOrdering Facility: [facility] Address: [address] [facility] [place] [address] Performed By: #### 3 3959-8, LIPNF, 40121-8, 36217-0 ####[facility] LABORATORYCLIA [id number] [place] [address] [place] Anion gap [Moles/Vol] 8 mmol/L Low 9-18 [facility] Comment on above: Order Comment: Speci men Type: BLOOD SPECIMENOrdering Facility: [facility] Address: [address] [place] [address] Performed By: #### 3 3959-8, LIPNF, 38478-7, 27824-4 ####[facility] LABORATORYCLIA [id number] [place] [address] [place] AST [Catalytic activity/Vol] 17 U/L Normal 14-40 [facility] Comment on above: Order Comment: Speci men Type: BLOOD SPECIMENOrdering Facility: [facility] Address: [address] [place] [address] Performed By: #### 3 3959-8, LIPNF, 61432-1, 92127-0 ####[facility] LABORATORYCLIA [id number] [place] [address] [place] Bilirubin [Mass/Vol] 0.6 mg/dL Normal 0.2-1.3 [facility] Comment on above: Order Comment: Speci men Type: BLOOD SPECIMENOrdering Facility: [facility] Address: [address] [place] [address] Performed By: #### 3 3959-8, LIPNF, 54252-4, 87511-7 ####COL[facility] LABORATORYCLIA [id number] [place] [address] [place] Calcium [Mass/Vol] 8.3 mg/dL Low 8.5-10.2 [facility] Comment on above: Order Comment: Speci men Type: BLOOD SPECIMENOrdering Facility: [facility] Address: [address] [facility] [place] [address] Performed By: #### 3 3959-8, LIPNF, 57524-3, 68106-6 ####COL[facility] LABORATORYCLIA [id number] [place] [address] [place] Chloride [Moles/Vol] 107 mmol/L High 97-105 [facility] Comment on above: Order Comment: Speci men Type: BLOOD SPECIMENOrdering Facility: [facility] Address: [address] [place] [address] Performed By: #### 3 3959-8, LIPNF, 65840-2, 38727-0 ####COL[facility] LABORATORYCLIA [id number] [place] [address] [place] CO2 [Moles/Vol] 29 mmol/L Normal 22-30 [facility] Comment on above: Order Comment: Speci men Type: BLOOD SPECIMENOrdering Facility: [facility] Address: [address] [place] [address] Performed By: #### 3 3959-8, LIPNF, 59517-0, 77528-9 ####COL[facility] LABORATORYCLIA [id number] [address] [place] Creatinine [Mass/Vol] 0.96 mg/dL Normal 0.73-1.22 [facility] Comment on above: Order Comment: Speci men Type: BLOOD SPECIMENOrdering Facility: [facility] Address: [address] [place] [address] Performed By: #### 3 3959-8, LIPNF, 58838-6, 12065-8 ####COL[facility] LABORATORYCLIA [id number] [address] Creatinine and Glomerular filtration rate.predicted panel (S/P/Bld) 99 mL/min/1.73m??? Normal >=60 [facility] Comment on above: Order Comment: Speci men Type: BLOOD SPECIMENOrdering Facility: [facility] Address: [address] [place] [address] Result Comment: Gladis mated Glomerular Filtration Rate [...] actual GFR. Performed By: #### 3 3959-8, LIPNF, 18292-6, 24087-3 ####COLÓ[facility] LABORATORYCLIA [id number] [place] [id number] [place] Glucose [Mass/Vol] 87 mg/dL Normal 74-99 [facility] Comment on above: Order Comment: Speci men Type: BLOOD SPECIMENOrdering Facility: [facility] Address: [address] [place] [address] Result Comment: The [place] Diabetes Association (ADA) provides guidance for cutoff [...] Standards of Medical Care in Diabetes 2016, [place] Diabetes Association. Diabetes Care. 2016.39(Suppl 1). Performed By: #### 3 3959-8, LIPNF, , ####COL[facility] LABORATORYCLIA [id number] [place] [address] [place] Potassium [Moles/Vol] 4.0 mmol/L Normal 3.7-5.1 [facility] Comment on above: Order Comment: Speci men Type: BLOOD SPECIMENOrdering Facility: [facility] Address: [address] [place] [address] Performed By: #### 3 3959-8, LIPNF, 86804-3, 98468-7 ####COLÓ[facility] LABORATORYCLIA [id number] [place] [id number] [place] Protein [Mass/Vol] 5.6 g/dL Low 6.3-8.0 [facility] Comment on above: Order Comment: Speci men Type: BLOOD SPECIMENOrdering Facility: [facility] Address: [address] [place] [address] Performed By: #### 3 3959-8, LIPNF, 69234-7, 05293-2 ####COL[facility] LABORATORYCLIA [id number] [address] Sodium [Moles/Vol] 144 mmol/L Normal 136-144 [facility] Comment on above: Order Comment: Speci men Type: BLOOD SPECIMENOrdering Facility: [facility] Address: [address] [place] [address] Performed By: #### 3 3959-8, LIPNF, 89482-8, 78134-5 ####COL[facility] LABORATORYCLIA [id number] [address] Urea nitrogen [Mass/Vol] 9 mg/dL Normal 9-24 [facility] Comment on above: Order Comment: Speci men Type: BLOOD SPECIMENOrdering Facility: [facility] Address: [address] [place] [address] Performed By: #### 3 3959-8, LIPNF, 79866-3, 33645-1 ####COL[facility] LABORATORYCLIA [id number] [address] HISTORY PHYSICALon HISTORY PHYSICAL HNO ID: [id number] Author: MIREYA NEGRON PA-C Service: Hospital Medicine Author Type: Physician Fall Intern Type: H&P Filed: 06/01/2023 06:57 Note Text: Attestation signed by Dora Das MD at 06/01/2023 7:04 AM Reviewed the history and physical examination of the patient and discussed the management with the CADEN. I reviewed the note and agree with the documented findings and plan of care. Dora Das MD Department of Hospital Medicine DATE: June 01, 2023 TIME: 7:04 AM [facility] MEDICINE HISTORY AND PHYSICAL EXAM SERVICE DATE: 06/01/2023 Code Status: Not on file SERVICE TIME: 4:06 AM Primary Care Physician: Lanette Harkins, DO NIGHT AND WEEKEND COVERAGE: [facility] COVERAGE: Days: [phone], please page attending physician. Nights: [phone], please page [place] [facility] Night coverage pager [phone]. Subjective CHIEF COMPLAINT: fall with CUMMINGS, dizzniess [...] breath, diarrhea, constipation, dysuria, lower extremity edema. [place] ED Course: Afebrile, hypertensive with BP 159/99, [...] on Zithromax and Rocephin. Patient admitted to [facility] under the hospital medicine service for management [...] days., Disp: (more content not included)... Normal [facility] LIPID PANEL, NONFASTINGon Cholesterol [Mass/Vol] 119 mg/dL Normal <200 [facility] Comment on above: Order Comment: Speci men Type: BLOOD SPECIMENOrdering Facility: [facility] Address: [address] [place] [address] Result Comment: <200 mg/dL, Desirable 200-239 mg/dL, Borderline high >239 mg/dL, High Performed By: #### 3 3959-8, LIPNF, 58264-7, 34952-8 ####COL[facility] LABORATORYCLIA [id number] [address] HDL CHOLESTEROL, NF 38 mg/dL Low >39 [facility] Comment on above: Order Comment: Speci men Type: BLOOD SPECIMENOrdering Facility: [facility] Address: [address] [place] [address] Result Comment: 40-5 9 mg/dL, Acceptable >59 mg/dL, High: Negative risk factor for coronary heart disease <40 mg/dL, Low: Positive risk factor for coronary heart disease Performed By: #### 3 3959-8, LIPNF, 77762-4, ####COLÓ[facility] LABORATORYCLIA [id number] [address] LDL CHOLESTEROL, NF 70 mg/dL Normal <100 [facility] Comment on above: Order Comment: Brit anastacia Type: BLOOD SPECIMENOrdering Facility: [facility] Address: [address] [place] [address] Result Comment: <100 mg/dL, Optimal 100-129 mg/dL, Near optimal/above optimal 130-159 mg/dL, Borderline high 160-189 mg/dL, High >189 mg/dL, Very high Secondary prevention optimal LDL Cholesterol levels are recommended to be < 70 mg/dL Performed By: #### 3 3959-8, LIPNF, 66982-2, 28500-0 ####COL[facility] LABORATORYCLIA [id number] [address] LDL/HDL RATIO, NF 1.84 mg/dL Normal <2.54 [facility] Comment on above: Order Comment: Speci men Type: BLOOD SPECIMENOrdering Facility: [facility] Address: [address] [place] [address] Result Comment: Carter pierson: 1. National Cholesterol Education Program ATP III Guideline At-A-Glance Quick Desk Reference: National Heart, Lung, and Blood [place]. National Institutes of Health. 2001: NIH Publication No. 01-3305. 2. An International Atherosclerosis Society position paper: global recommendations for the management of dyslipidemia: executive summary, Atherosclerosis. 2014: 232(2):410-413. Performed By: #### 3 3959-8, LIPNF, 92196-1, 72053-3 ####COLÓN LABORATORYCLIA [id number] [address] NON HDL CHOL, NF 81 mg/dL Normal <130 [facility] Comment on above: Order Comment: Brit galaviz Type: BLOOD SPECIMENOrdering Facility: [facility] Address: [address] [place] [address] Result Comment: <130 mg/dL, Optimal 130-159 mg/dL, Near optimal/above optimal 160-189 mg/dL, Borderline high 190-219 mg/dL, High >219 mg/dL, Very high Secondary prevention optimal non HDL Cholesterol levels are recommended to be <100 mg/dL Performed By: #### 3 3959-8, LIPNF, 52647-0, 03357-2 ####COLÓN LABORATORYCLIA [id number] [address] T CHOL/HDL RATIO NF 3.13 mg/dL Normal <5.10 [facility] Comment on above: Order Comment: Brit galaviz Type: BLOOD SPECIMENOrdering Facility: [facility] Address: [address] [place] [address] Performed By: #### 3 3959-8, LIPNF, 12800-4, 88072-1 ####COLÓN LABORATORYCLIA [id number] [address] TRIGLYCERIDES, NF 53 mg/dL Normal <150 [facility] Comment on above: Order Comment: Brit galaviz Type: BLOOD SPECIMENOrdering Facility: [facility] Address: [address] [place] [address] Result Comment: <150 mg/dL, Normal 150-199 mg/dL, Borderline high 200-499 mg/dL, High >499 mg/dL, Very high Performed By: #### 3 3959-8, LIPNF, 32427-5, 39915-7 ####[facility] LABORATORYCLIA [id number] [place] [address] [place] VLDL CHOLESTEROL, NF 11 mg/dL Normal <30 [facility] Comment on above: Order Comment: Speci men Type: BLOOD SPECIMENOrdering Facility: [facility] Address: [address] [place] [address] Performed By: #### 3 3959-8, LIPNF, 99041-3, 23396-2 ####[facility] LABORATORYCLIA [id number] [place] [address] [place] Legionella Ag Ur Qlon 2023 Legionella sp Ag Ql (U) Negative Normal Negative [facility] Comment on above: Order Comment: Speci men Type: URINE SPECIMENOrdering Facility: [facility] Address: [address] [place] [address] Result Comment: Legi onella urinary antigen test is used as an aid in diagnosis of infection with Legionella pneumophila serogroup 1. It may be detected from a few days to several months after onset of signs and symptoms despite antibiotic therapy or disease resolution. A negative result cannot exclude Legionellosis. Clinical correlation is required. Performed By: #### 3 2781-7 ####[facility] LABCLIA [id number] [place] [address] [place] MRI BRAIN WO IVCONon 024 MRI BRAIN WO IVCON * * *Final Report* * * DATE OF EXAM: Jun 01 2023 8:17AM [facility] 0294 - MRI BRAIN WO IVCON / [...] are unremarkable. IMPRESSION: No acute intracranial process. Technical Documentation Specialist: LALA Transcribe Date/Time: Jun 01 2023 8:19A Dictated by : HÉCTOR WILLARD DO This examination was interpreted and the report reviewed and electronically signed by: HÉCTOR WILLARD DO on Jun 01 2023 8:25AM EST [id number] Normal [facility] Magnesium SerPl-mCncon 06-01 Magnesium [Mass/Vol] 2.4 mg/dL High 1.7-2.3 [facility] Comment on above: Order Comment: Speci men Type: BLOOD SPECIMENOrdering Facility: [facility] Address: [place] [address] Performed By: #### 3 3959-8, LIPNF, 93109-5, 56088-6 ####[facility] LABORATORYCLIA [id number] [place] [address] [place] Procalcitonin SerPl-mCncon 0 06-01-2023 Procalcitonin [Mass/Vol] 0.23 ng/mL High <0.09 [facility] Comment on above: Order Comment: Speci men Type: BLOOD SPECIMENOrdering Facility: [facility] Address: [address] [place] [address] Result Comment: For a guided interpretation of test results, please visit the Change in Procalcitonin Calculator, [email or web address]. Performed By: #### 3 3959-8, LIPNF, 43782-3, 22725-0 ####[facility] LABORATORYCLIA [id number] [place] [address] [place] STREPTOCOCCUS PNEUMONIAE AGo n 06-01-2023 STREPTOCOCCUS PNEUMONIAE AG STREP PNEUMO AG RESULT: Negative for Streptococcus pneumoniae antigen. Presumptive negative for pneumococcal pneumonia, suggesting no current or recent pneumococcal infection. Infection due to S.pneumoniae cannot be ruled out since the antigen present in the sample may be below the detection limit of the test. Normal [facility] Comment on above: Performed By: #### S PNAG ####[facility] LABCLIA [id number] [place] [address] [place] THERAPY NTon 06-01-2023 THERAPY NT HNO ID: [id number] Author: LUPE MATHEWS OT/L Service: ? Author Type: Occupational Therapist Type: Therapy (PT/OT/Speech/Resp) Filed: 06/01/2023 13:39 Note Text: Occupational Therapy Evaluation SERVICE DATE: 06/01/2023 SERVICE TIME: 1316 to 1332 ROOM: [place] [address] Recommended Discharge Disposition: Home Anticipated Discharge Needs: [...] Level Comments: Pt reports indepdendence with ADLs/IADLs EXHAUST AND MUFFLER REPAIRER. 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 [facility] THERAPY NT HNO ID: [id number] Author: VICENTA HELMS, PT Service: Physical Therapy Author Type: Physical Therapist Type: Therapy (PT/OT/Speech/Resp) Filed: 06/01/2023 10:54 Note Text: Summary: PT Eval Physical Therapy Evaluation SERVICE DATE: 06/01/2023 SERVICE TIME: 1021 to 1044 ROOM: [place] [address] Recommended Discharge Disposition: Home PT Recommended Discharge [...] Level Comments: Pt reports indepdendence with ADLs/IADLs EXHAUST AND MUFFLER REPAIRER. Reports + driving, self medical management, and reportsno use of AD EXHAUST AND MUFFLER REPAIRER however reports he was using a cane [...] challenge, able to (more content not included)... [facility] THERAPY NT HNO ID: [id number] Author: VICENTA HELMS PT Service: Physical Therapy Author Type: Physical Therapist Type: Therapy (PT/OT/Speech/Resp) Filed: 06/01/2023 08:19 Note Text: Summary: PT MV PHYSICAL THERAPY MISSED VISIT SERVICE DATE: 06/01/2023 SERVICE TIME: 08 to 08 ROOM: [place] [address] ([facility]) Patient not seen due to Test / Procedure. Patient currently at MRI, will re-attempt as schedule allows and pt is medically appropriate to participate. SIGNATURE: Vicenta Helms PT PATIENT NAME: Tate Baltazar DATE: June 01, 2023 TIME: 8:19 AM [facility] US BLADDERon 04-30-2023 US BLADDER ORIGINAL EXAMINATION: ULTRASOUND OF THE URINARY [id number]/27/2023 11:59 am TECHNIQUE: Pre and postvoid imaging [...] 04/30/2023 6:47:39 PM Ordering Provider: LANETTE HARKINS [facility] ([place]) CNTHERAPYon 04-23-2023 CNTHERAPY OT/PT/Speech Visit ( PTMDRG) BALTAZARTATE FAYE ([id number]) 1975 M Date Time Provider Department 04/23/23 10:45 AM FRANCHESCA LARSON Date Time Provider Department [place] 04/23/2023 10:45 AM [id number], SUSAN PTMLIZETH [facility] Reason for Visit: Physical Therapy [503] [...] - NURTEC ODT 75 mg disintegrating tablet [facility] .GFRon 04-13-2023 GFR 68 ml/min/1.73sqm Normal [facility] ([place]) Comment on above: Result Comment: GFR Population [...] By: #### C MP, PSA, GFR #### Autumn [address] [address] GFR Non- 56 ml/min/1.73sqm Normal [facility] ([place]) Comment on above: Result Comment: GFR Population [...] By: #### C MP, PSA, GFR #### [address] [address] CMPon 04-13-2023 Albumin Level 3.9 G/dL Normal 3.5-5.0 [facility] ([place]) Comment on above: Performed By: #### C MP, PSA, GFR #### [address] [address] Albumin/Globulin [Mass ratio] 1.2 {ratio} Normal 1.1-2.5 [facility] ([place]) Comment on above: Performed By: #### C MP, PSA, GFR #### [address] [address] ALP [Catalytic activity/Vol] 97 U/L Normal 40-135 [facility] ([place] Comment on above: Performed By: #### C MP, PSA, GFR #### [address] [address] ALT [Catalytic activity/Vol] 55 U/L Normal 16-63 [facility] ([place] Comment on above: Performed By: #### C MP, PSA, GFR #### [address] [address] AST [Catalytic activity/Vol] 29 U/L Normal 10-40 [facility] ([place] Comment on above: Performed By: #### C MP, PSA, GFR #### [address] [address] Bili Total 0.7 mg/dL Normal 0.2-1.0 [facility] ([place]) Comment on above: Result Comment: Use of this assay is not recommended for patients undergoing treatment with eltrombopag due to the potential for falsely elevated results. Performed By: #### C MP, PSA, GFR #### [address] [address] BUN/Creatinine Ratio 5 ratio Low 7-27 [facility] ([place] Comment on above: Performed By: #### C MP, PSA, GFR #### [address] [address] Calcium [Mass/Vol] 9.3 mg/dL Normal 8.4-10.2 [facility] ([place]) Comment on above: Performed By: #### C MP, PSA, GFR #### [address] [address] Chloride [Moles/Vol] 102 mmol/L Normal 98-107 [facility] ([place] Comment on above: Performed By: #### C MP, PSA, GFR #### [address] [address] CO2 [Moles/Vol] 30 mmol/L High 22-29 [facility] ([place] Comment on above: Performed By: #### C MP, PSA, GFR #### [address] [address] Creatinine [Mass/Vol] 1.36 mg/dL High 0.70-1.30 [facility] ([place] Comment on above: Performed By: #### C MP, PSA, GFR #### [address] [address] Electrolyte Balance 8.0 mEq/L Normal 4.0-15.0 [facility] ([place] Comment on above: Performed By: #### C MP, PSA, GFR #### [address] [address] Globulin 3.2 G/dL Normal [facility] ([place] Comment on above: Performed By: #### C MP, PSA, GFR #### [address] [address] Glucose [Mass/Vol] 77 mg/dL Normal 70-105 [facility] ([place] Comment on above: Performed By: #### C MP, PSA, GFR #### [address] [address] Potassium [Moles/Vol] 4.4 mmol/L Normal 3.5-5.1 [facility] ([place] Comment on above: Performed By: #### C MP, PSA, GFR #### [address] [address] Sodium [Moles/Vol] 140 mmol/L Normal 136-145 [facility] ([place] Comment on above: Performed By: #### C MP, PSA, GFR #### [address] [address] Total Protein 7.1 G/dL Normal 6.4-8.2 [facility] ([place] Comment on above: Performed By: #### C MP, PSA, GFR #### [address] [address] Urea nitrogen [Mass/Vol] 7 mg/dL Normal 7-18 [facility] ([place] Comment on above: Performed By: #### C MP, PSA, GFR #### [address] [address] LABORATORYOrdered By: SYSTEM SYSTEM on 04-13-2023 Albumin [...] Prostate Specific Antigen 1.12 ng/mL Normal 0.00-4.00 [facility] ([place]) Comment on above: Performed By: #### C MP, PSA, GFR #### [address] [address] CNTHERAPYon 04-06-2023 CNTHERAPY OT/PT/Speech Visit ( PTMDRG) TATE BALTAZAR ([id number]) 1975 M Date Time Provider Department 04/06/23 1:00 PM FRANCHESCA LARSON PTMG Date Time Provider Department Center 04/06/2023 1:00 PM [id number], SUSAN PTMLIZETH [facility] Reason for Visit: Physical Therapy [503] [...] NURTEC ODT 75 mg disintegrating tablet Normal [facility] 04-03-2023 [facility] Office Visit (ORMDRG ) TATE BALTAZAR ([id number]) 1975 M Date Time Provider Department 04/03/23 [...] kidney function (more content not included)... Normal [facility] CNTHERAPYon 03-31-2023 CNTHERAPY OT/PT/Speech Visit ( PTMDRG) TATE BALTAZAR ([id number]) 1975 M Date Time Provider Department 03/31/23 11:15 AM ELOISE HEBERT PTMDRG Date Time Provider Department Center 03/31/2023 11:15 AM [id number], JULIE PTMDRG [facility] Reason for Visit: PT Progress Note [...] NURTEC ODT 75 mg disintegrating tablet Normal [facility] CNTHERAPYon 03-24-2023 CNTHERAPY OT/PT/Speech Visit ( PTMDRG) TATE BALTAZAR ([id number]) 1975 M Date Time Provider Department 03/24/23 11:00 AM FRANCHESCA LARSON PTMDRG Date Time Provider Department Center 03/24/2023 11:00 AM [id number], SUSAN PTMDRG [facility] Reason for Visit: Physical Therapy [503] [...] - NURTEC ODT 75 mg disintegrating tablet [facility] CNTHERAPYon 03-17-2023 CNTHERAPY OT/PT/Speech Visit ( PTMDRG) TATE BALTAZAR ([id number]) 1975 M Date Time Provider Department 03/17/23 11:15 AM ELOISE HEBERT PTMG Date Time Provider Department [place] 03/17/2023 11:15 AM [id number], JULIE PTMG [facility] Reason for Visit: Physical Therapy [503] [...] - NURTEC ODT 75 mg disintegrating tablet [facility] CNTHERAPYon 03-10-2023 CNTHERAPY OT/PT/Speech Visit ( PTMDRG) TATE BALTAZAR ([id number]) 1975 M Date Time Provider Department 03/10/23 11:45 AM FRANCHESCA LARSON PTMDRG Date Time Provider Department Center 03/10/2023 11:45 AM [id number], SUSAN [facility] Reason for Visit: Physical Therapy [503] [...] - NURTEC ODT 75 mg disintegrating tablet [facility] CNTHERAPYon 02-24-2023 CNTHERAPY OT/PT/Speech Visit ( PTMDRG) TATE BALTAZAR ([id number]) 1975 M Date Time Provider Department 02/24/23 12:45 PM ELOISE HEBERT PTMG Date Time Provider Department Center 02/24/2023 12:45 PM [id number], JULIE PTMG [facility] Reason for Visit: Physical Therapy [503] [...] Take 240 mg by mouth once daily. [facility] CNTHERAPYon 02-19-2023 CNTHERAPY OT/PT/Speech Visit ( PTMDRG) TATE BALTAZAR ([id number]) 1975 M Date Time Provider Department 02/19/23 10:30 AM ELOISE HEBERT [facility] Date Time Provider Department Center 02/19/2023 10:30 AM [id number], JULIE PTMDRG [facility] Reason for Visit: PT Progress Note [...] NURTEC ODT 75 mg disintegrating tablet Normal [facility] 02-16-2023 [facility] Office Visit (RBMT ) TATE BALTAZAR ([id number]) 1975 M Date Time Provider Department 02/16/23 1:00 PM MIREYA SWEET [facility] During your visit today, we recorded [...] take a higher dose. Patient Entered Data [employer] No flowsheet data found. Spasticity NRS 12/15/2022 [...] cognition, language or prosody on interview. Formal LATRINE CLEANER testing was not performed today. Strength Right [...] the aft (more content not included)... Normal [facility] CNOVon 02-13-2023 CNOV Office Visit (ORMDRG ) TATE BALTAZAR ([id number]) 1975 M Date Time Provider Department 02/13/23 1:15 PM MAL GOTTI ORMDRG During your visit today, we recorded the [...] AND Elbow Surgeon Department of Orthopaedic Surgery [facility] Medical Decision Making: Medical Decision Making [...] [M54.16] 03/26/2020 (more content not included)... Normal [facility] CNTHERAPYon 02-13-2023 CNTHERAPY OT/PT/Speech Visit ( PTMDRG) TATE BALTAZAR ([id number]) 1975 M Date Time Provider Department 02/13/23 2:45 PM ELOISE HEBERT PTMG Date Time Provider Department Center 02/13/2023 2:45 PM [id number], JULIE PTMDRG [facility] Reason for Visit: Physical Therapy [503] [...] - NURTEC ODT 75 mg disintegrating tablet [facility] CNTHERAPYon 02-10-2023 CNTHERAPY OT/PT/Speech Visit ( PTMDRG) TATE BALTAZAR ([id number]) 1975 M Date Time Provider Department 02/10/23 2:45 PM FRANCHESCA LARSON PTMLIZETH Date Time Provider Department Center 02/10/2023 2:45 PM [id number], SUSAN PTMG [facility] Reason for Visit: Physical Therapy [503] [...] - NURTEC ODT 75 mg disintegrating tablet [facility] CNTHERAPYon 02-05-2023 CNTHERAPY OT/PT/Speech Visit ( PTMDRG) TATE BALTAZAR ([id number]) 1975 Date Time Provider Department 02/05/23 10:00 AM FRANCHESCA LARSON PTMG Date Time Provider Department Center 02/05/2023 10:00 AM [id number], SUSAN PTMDRG [facility] Reason for Visit: Physical Therapy [503] [...] NURTEC ODT 75 mg disintegrating tablet Normal [facility] CNTHERAPYon 01-28-2023 CNTHERAPY OT/PT/Speech Visit ( PTMDRG) TATE BALTAZAR ([id number]) 1975 M Date Time Provider Department 01/28/23 2:00 PM FRANCHESCA LARSONG Date Time Provider Department Center 01/28/2023 2:00 PM [id number], SUSAN PTMG [facility] Reason for Visit: Physical Therapy [503] [...] - NURTEC ODT 75 mg disintegrating tablet [facility] 01-21-2023 CNPN Telephone (NEMSMN) BALTAZARTATE FAYE ([id number]) 1975 M Date Time Provider Department 01/21/23 MELVIN LARSEN During your visit today, we recorded the following information about you: [place] 01/21/2023 2:47 PM Signed Sherman Call Name of caller : Tate Giovanny Relationship to patient: Self Return call phone number : [phone] Reason for call : Other : Brief [...] 01/21/2023 4:12 PM Signed Seen 08/15/22 for LATRINE CLEANER CONSULT by Dr Larsen: Oral antispasticity medications: [...] coming for FU 02/16/23 Will change to [facility] since closer for him Appointment adjusted with Logan Sweet for FU at [facility] Called discount drug Talked with pharmacist [...] Fully Assessed Reason for Visit: Patient Question [9547] Order(s):tiZANidine (ZANAFLEX) 2 mg tabletTake 1 tablet [...] As O (more content not included)... Normal [facility] CNOVon 01-16-2023 CNOV Office Visit (ORMDRG ) TATE BALTAZAR ([id number]) 1975 M Date Time Provider Department 01/16/23 11:15 AM KISHA WALTERS ORMDRShannan During your visit today, we recorded the following information about you: Kisah Walters PA-C 01/16/2023 12:55 PM Signed Kisha [...] 03/26/2020 Cerebrova (more content not included)... Normal [facility] CNTHERAPYon 01-16-2023 CNTHERAPY OT/PT/Speech Visit ( PTMDRG) TATE BALTAZAR ([id number]) 1975 M Date Time Provider Department 01/16/23 9:30 AM ELOISE HEBERT PTMG Date Time Provider Department Center 01/16/2023 9:30 AM [id number], JULIE PTMDRG [facility] Reason for Visit: PT Eval [747] [...] NURTEC ODT 75 mg disintegrating tablet Normal [facility] POSTPROC EVALon 023 [facility] POSTPROC EVAL HNO ID: [id number] Author: Malcolm Coyne MD Service: Anesthesiology Author Type: Physician Type: Anesthesia Postprocedure Evaluation Filed: 01/09/2023 5:25 PM Note Text: POST ANESTHESIA EVALUATION NOTE : 1975 Procedure Summary Date: 01/09/23 Room / Location: [place] [address] / [place] Anesthesia Start: 1311 Anesthesia Stop: 1449 [...] January 09, 2023 TIME: 5:25 PM CSN: [id number] [facility] ANES PRE-OPon 01-09-2023 ANES PRE-OP HNO ID: [id number] Author: Kathia Oconnor DO Service: Anesthesiology Author Type: Physician Type: Anesthesia Preprocedure Evaluation Filed: 01/09/2023 12:20 PM Note Text: ANESTHESIOLOGY DAY OF SURGERY NOTE : 1975 Procedure Information Date/Time: 01/09/23 1330 Procedure: ARTHROSCOPY SHOULDER ROTATOR CUFF (Right: Shoulder) [place] [place] Surgeons: Mal Gotti MD Estimated body [...] NAME: Tate Villalobos (more content not included)... Normal [facility] HISTORY PHYSICALon HISTORY PHYSICAL HNO ID: [id number] Author: Mal Gotti MD Service: Orthopaedic Surgery [...] DATE: January 09, 2023 TIME: 12:24 PM [facility] NURSING PROGon 01-09-2023 NURSING PROG HNO ID: [id number] Author: Reynaldo Mahmood RN Service: ? Author [...] side marked by Dr. Oconnor AND Dr. Gtoti. [facility] OPERATIVE NOon 01-09-2023 OPERATIVE NO HNO ID: [id number] Author: Mal Gotti MD Service: Orthopaedic Surgery Author Type: Physician Type: Operative Report Filed: 01/09/2023 2:57 PM Note Text: OPERATIVE/PROCEDURE REPORT LOG ID: [id number] SURGERY/PROCEDURE DATE: 01/09/2023 INCISION/PROCEDURE START TIME: 1:55 PM INCISION CLOSE/PROCEDURE END TIME: 2:33 PM SURGEON(S)/PROCEDURALIST(S) AND PRINCIPAL SOFTWARE ARCHITECT(S): Surgeon(s) and Role: * Mal Gotti MD - Primary Physician Fall Intern: Kisha Walters PA-C; Yazmin Bonds PA-C SURGERY/PROCEDURE(S): [...] shaver for a distance of 1 cm hnchjyyd-iq-quqbovshm. Arthroscopic rotator cuff repair was then performed [...] good condition. No qualified resident/fellow was available. assistant merchandise manager, Kisha Walters PA-C, assisted with patient positioning, retraction and assistance during the procedure, as well as deep and superficial wound closure. PRE-OP/PRE-PROCEDURE DIAGNOSIS: Right shoulder rotator cuff tear POST-OP/POST-PROCEDURE DIAGNOSIS: Same as Preop ESTIMATED BLOOD LOSS: 1 mls SPECIMENS: None IMPLANTABLE DEVICES: (more content not included)... Normal [facility] HISTORY PHYSICALon HISTORY PHYSICAL HNO ID: [id number] Author: Domingo Ramon PA-C Service: ? Author Type: Physician Fall Intern Type: HANDP Filed: 12/16/2022 9:42 AM Note Text: HISTORY AND PHYSICAL EXAMINATION SERVICE DATE: 12/15/2022 SERVICE TIME: 2:09 PM PRIMARY CARE PHYSICIAN: Lanette Harkins DO REASON FOR VISIT: Tate Baltazar is a 47 year old male who is scheduled for Procedure(s): ARTHROSCOPY SHOULDER ROTATOR CUFF (Right) at the request of Mal Odell MD for consultation. 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 Procedure scheduled on 01/09/2023 at [place]. REVIEW OF SYSTEMS: General: No weight loss, [...] hypertension Negative for: arrhythmia, atrial fibrillation, CAD ([facility] negative for occlusion), chest pain, DVT/PE, hyperlipidemia [...] to recent stroke 10/20/2017 Hypertension Migraines 2000 JANNETTE (obstructive sleep apnea) 03/17/2019 RSD lower [...] Father Social (more content not included)... Normal [facility] POTASSIUM BLDon 12-15-2022 Potassium [Moles/Vol] 3.7 mmol/L Normal 3.7-5.1 [facility] Comment on above: Order Comment: Speci men Type: BLOOD SPECIMENOrdering Facility: [facility] Address: [address] [place] [id number] Performed By: #### K 1 ####[facility] LABORATORYCLIA [id number] [place] [address] [place] CNPLucy 11-28-2022 CNPN Telephone (ORMDNA) TATE BALTAZAR ([id number]) 1975 M Date Time Provider Department 11/28/22 MAL GOTTI During your visit today, we recorded the following information about you: Edelmira Ibanez Med Sedc 11/28/2022 2:44 PM Signed Please reach out and assist with scheduling patient for post-op physical therapy. His surgery is 01-09-2023. He should be seen approximately 1 week post-op. Thank you. 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 Thank you. Edelmira Ibanez Med Sedc Allergies As of Date: 11/19/2022 Noted Allergy [...] cuff repair [Z98.890] Order(s):CONSULT TO PHYSICAL THERAPY [9032] Order #: [id number]: 1 FUTURE Prescriptions as of 11/25/2022 - [...] 12/20/2021 History of subarachnoid hemorrhage [Z86.79] 12/20/2021 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 [Z7*12/20/2021 Disorder of male genital organs [N50.9] 01/21/2022 Epididymitis [N45.1] 01/21/2022 Family history of malignant neoplasm of prostat*01/21/2022 Scrotal mass [N50.89] 01/21/2022 Left testicular pain [N50.812] 11/13/2021 Neoplasm of uncertain behavior of skin [D48.5] 03/13/2021 Other chronic pain [G89.29] 05/20/2022 Lower abdominal pain [R10.30] 05/22/2022 Encounter Status:Closed by KISHA WALTERS on 11/19/22 [facility] CNOVon 11-14-2022 CNOV Office Visit (ORMDRG ) TATE BALTAZAR ([id number]) 1975 M Date Time Provider Department 11/14/22 [...] AND Elbow Surgeon Department of Orthopaedic Surgery [facility] Referring Provider: SELF [200] Allergies As of [...] 10/01/2015 D (more content not included)... Normal [facility] CNOVon 10-17-2022 CNOV Office Visit (ORMDRG ) BALTAZARTATE ([id number]) 1975 M Date Time Provider Department 10/17/22 11:15 AM [facility] During your visit today, we recorded the following information about you: Mal Gotti MD 10/17/2022 1:10 PM Signed PAIN EVALUATION 10/17/2022 1128 Pain Level: -- rest:7, movement:10, ROM:limited Pain Location: Shoulder-Right Description: Burning;Throbbing;Tightness Frequency: Continuous Intervention/Comfort measure: Medication;Reposition;Relaxa tion Comments: R-shoulder trigger injection: 10/01/22 Encounter Diagnosis ICD-10-CM 1. Right shoulder pain, unspecified chronicity M25.511 MRI SHOULDER WO IVCON RIGHT Tate Bryant Giovanny returns to follow up after trial of [...] AND Elbow Surgeon Department of Orthopaedic Surgery [facility] Referring Provider: SELF [200] Allergies As [...] chronicity [M25.511] Order(s):MRI SHOULDER WO IVCON RIGHT [[id number]] Order #: [id number] FUTURE Prescriptions as of 10/17/2022 - oxyCODONE-acetaminophen [...] 10/21/2017 Arthropathy of lumbar facet joint [M47.816] 07/10/ (more content not included)... Normal [facility] CNOVon 09-05-2022 CNOV Office Visit (ORMDRG ) TATE BALTAZAR ([id number]) 1975 M Date Time Provider Department 09/05/22 10:00 AM MAL GOTTI During your visit today, we recorded the following information about you: Kisha Walters PA-C 09/05/2022 2:40 PM Signed ORTHOPAEDIC SHOULDER AND ELBOW SERVICE HISTORY AND PHYSICAL EXAM REFERRING PROVIDER: Melvin Larsen [address] [facility] [address] CHIEF COMPLAINT: Right shoulder pain PAIN EVALUATION [...] Other: See Comments Sulfamethoxazole-Tr* Unknown Acetaminophen-Codei* Unknown Amite Juice Unknown Pseudoephedrine Unknown Vicodin [Hydrocodon* Mental [...] 170. Should (more content not included)... Normal [facility] XR Shoulder - right 3 Viewso n 09-05-2022 IMPRESSION: No acute abnormality Technical Documentation Specialist: PSCB Transcribe Date/Time: Sep 05 2022 9:39A Dictated by : ROOSEVELT LAM MD This examination was interpreted and the report reviewed and electronically signed by: ROOSEVELT LAM MD on Sep 05 2022 9:40AM EST [facility] * * *Final Report* * * [...] interval are maintained. Upper ribs are intact. [facility] Provider, Christie [facility] - 09/05/2022 * * *Final Report* [...] are intact. IMPRESSION IMPRESSION: No acute abnormality Technical Documentation Specialist: PSCB Transcribe Date/Time: Sep 05 2022 9:39A Dictated by : ROOSEVELT LAM MD This examination was interpreted and the report reviewed and electronically signed by: ROOSEVELT LAM MD on Sep 05 2022 9:40AM EST [facility] Radiology Study observation (narrative) [facility] XR Shoulder - right 3 ViewsO rdered By: Ccf Provider on 09-05-2022 [facility] LABORATORYOrdered By: SYSTEM SYSTEM on 08-22-2022 Albumin [...] 27 ratio AO ADM SS EMG(NEURO/NI)on 06-16-2022 [facility] XR Knee - right 4 Viewson IMPRESSION: Negative. Technical Documentation Specialist: LALA Transcribe Date/Time: May 26 2022 9:23A Dictated by : ROOSEVELT LAM MD This examination was interpreted and the report reviewed and electronically signed by: ROOSEVELT LAM MD on May 26 2022 9:23AM EST [facility] * * *Final Report* * * DATE OF EXAM: May 23 2022 9:02AM MDO 5203 - XR KNEE 4V AP/PA BOTH+LAT/JOSEMANUEL [...] evidence for significant degenerative or arthritic change. [facility] Provider, Christie [facility] - 05/26/2022 * * *Final Report* * * DATE OF EXAM: May 23 2022 9:02AM MDO 5203 - XR KNEE 4V AP/PA BOTH+LAT/JOSEMANUEL [...] degenerative or arthritic change. IMPRESSION IMPRESSION: Negative. Technical Documentation Specialist: CHYNAB Transcribe Date/Time: May 26 2022 9:23A Dictated by : ROOSEVELT LAM MD This examination was interpreted and the report reviewed and electronically signed by: ROOSEVELT LAM MD on May 26 2022 9:23AM EST [facility] XR Knee - right 4 ViewsOrder ed By: Ccf Provider on 05-26-2022 [facility] XR Knee - right 4 Viewson Radiology Study observation (narrative) [facility] LABORATORYOrdered By: Wanda Crawford on 01-30-2022 Prostate [...] OR/PAIN MGT Ordering Physician: Rowan Boateng DO FLUOROSCOPY AND RADIOGRAPHS UTILIZED IN PAIN MANAGEMENT [...] GAYTAN M.D. Signed By: JAKOB GAYTAN M.D. [facility] FLUOROSCOPY IN OR/PAIN MGTon 09-04-2021 FLUOROSCOPY IN OR/PAIN MGT FLUOROSCOPY IN OR/PAIN MGT Ordering Physician: Rowan Boateng DO FLUOROSCOPY AND RADIOGRAPHS UTILIZED IN PAIN MANAGEMENT [...] GAYTAN M.D. Signed By: JAKOB GAYTAN M.D. [facility] FLUOROSCOPY IN OR/PAIN MGTon 08-21-2021 FLUOROSCOPY IN [...] was electronically signed by Kathia Razo MD 08/21/2021 11:03 AM Reported By: KATHIA RAZO M.D. Signed By: KATHIA RAZO M.D. [facility] LABORATORYOrdered By: Sue Prater on 05-23-2021 ADMITTED [...] definite cause of disease. Laboratories within the [facility] and its territories are required to report all positive results to the appropriate public health authorities.Detection of analyte target(s) does not imply that the corresponding virus(es) are infectious or are the causative agents for clinical symptoms.There is a risk of false positive values resulting from cross-contamination by target organisms, their nucleic acids or amplified product, or from non-specific signals in the assay.MARII SARS-CoV-2 Assay is a Real-Time reverse-transcriptase polymerase [...] AO Auto Urine SS FLUOROSCOPY IN OR/PAIN Ton 05-08-2021 FLUOROSCOPY IN OR/PAIN MGT FLUOROSCOPY IN [...] RAZO M.D. Signed By: KATHIA RAZO M.D. [facility] FLUOROSCOPY IN OR/PAIN [facility] 04-24-2021 FLUOROSCOPY IN OR/PAIN MGT FLUOROSCOPY FOR [...] HERNANDEZ M.D. Signed By: MAICO HERNANDEZ M.D. [facility] Established Visit (Gastroent erology)on 08-22-2020 Established Visit [...] juice, or Gatorade daily. This products is unza-jkh-mdrfyli. You can adjust this product if you are having severe constipation by increasing it to twice a day. If you are experiencing loose stool, decrease amount to one half capful daily or one capful every other day. 8. Begin using a probiotic such as Vivo 1 capsule daily. This is over the [...] Follow-up EGD and colonoscopy. History of Present [id number] - Year old male presents today via [...] Recorded: 22Aug2020 08:39AM Height6 ft 3 in Rwqooy362 lb BMI Lkxwyzliuq96.75 BSA Calculated2.33 Physical Exam PHYSICAL EXAM LIMITED [...] Signatures Electronically signed by : Rissa Cardoza APRN-DEEPA; Aug 22 2020 9:54AM EST (Author) Normal [facility]works Initial Visit (Gastroenterol ogy)on 06-29-2020 Initial Visit (Gastroenterology) Diagnoses/Problems Assessed Chest pain, atypical (786.59) (R07.89) Lower abdominal pain (789.09) (R10.30) Orders Chest pain, atypical Endoscopy - Upper GI; Status:Active - Retrospective Authorization; Requested for:25Jul2020 09:00AM; Perform:[facility]; Order Comments:Autumn Garrett; Due:23Oct2020; Last Updated By:Erma Grande; 06/29/2020 8:54:33 AM;Ordered; For:Chest pain, atypical; Ordered By:Sebastian Mcdonald; Patient competent to provide consent? : Yes-pt mentally competent to provide consent Chest pain, atypical, Lower abdominal pain Colonoscopy; Status:Active - Retrospective Authorization; Requested for:25Jul2020 09:00AM; Perform:[facility]; Order Comments:AUTUMN GARRETT; Due:23Oct2020; Last [...] test time. The requirement to have a powder truck driver present was discussed. All questions were answered. Patient appears medically stable for endoscopy. 2. [place] website, cardiology notes, diagnostic imaging studies reviewed [...] pain and chest pain History of Present Ehptopw26-iwva-oep male has a several month history of [...] DAILY BEFORE EATING. Vitals Vital Signs Recorded: [id number] 07:59AM Height6 ft 3 in Lciybi669 lb BMI Odajucweap25.75 BSA Calculated2.33 Physical Exam Patient does not appear in any acute distress. Weight was reviewed. Patient is alert and oriented with normal speech and thought process. Affect is normal. There is no conversational dyspnea, cough, or obvious shortness of breath. Dentition seems poor with missing teeth. Signatures Electronically signed by : Sebastian Mcdonald DO; Jun 29 2020 10:51AM EST (Author) Normal [employer] Serum Protein Electrophoresi son 09-10-2018 Released By: see below [facility] Comment on above: Result Comment: Benjamín Sim M.D. Performed By: #### H EMDF, ESR, TSH5, LFT3, CRTN3, URIC3, BUN3, GLUC3 #### [address] [address] #### HEPC, KYRA, TPO2 #### [address] [address] #### VD25H, RFB #### [address] [address] #### TRYPO #### The performing lab is in the report. #### SPRTE #### [address] [address] Reviewed By: Annette Trammell,PhD [facility] Comment on above: Performed By: #### H EMDF, ESR, TSH5, LFT3, CRTN3, URIC3, BUN3, GLUC3 #### [address] [address] #### HEPC, KYRA, TPO2 #### [address] #### VD25H, RFB #### [address] [address] #### TRYPO #### The performing lab is in the report. #### SPRTE #### [address] [address] SPE Interpretation Normal Pattern Normal [facility] Comment on above: Performed By: #### H EMDF, ESR, TSH5, LFT3, CRTN3, URIC3, BUN3, GLUC3 #### [facility] [address] [place] [address] #### HEPC, KYRA, TPO2 #### [address] [address] #### VD25H, RFB #### [facility] [address] [place] [address] #### TRYPO #### The performing lab is in the report. #### SPRTE #### [address] [address] Albumin mass conc 5.1 g/dL Normal 3.1-5.2 [facility] Comment on above: Performed By: #### H EMDF, ESR, TSH5, LFT3, CRTN3, URIC3, BUN3, GLUC3 #### [address] [address] #### HEPC, KYRA, TPO2 #### [address] [address] #### VD25H, RFB #### [facility] [address] [place] [address] #### TRYPO #### The performing lab is in the report. #### SPRTE #### [address] [address] Alpha-1 0.3 g/dL Normal 0.2-0.4 [facility] Comment on above: Performed By: #### H EMDF, ESR, TSH5, LFT3, CRTN3, URIC3, BUN3, GLUC3 #### [facility] [address] [place] [address] #### HEPC, KYRA, TPO2 #### [address] [address] #### VD25H, RFB #### [facility] [address] [place] [address] #### TRYPO #### The performing lab is in the report. #### SPRTE #### [address] [address] Alpha-2 0.6 g/dL Normal 0.5-1.0 [facility] Comment on above: Performed By: #### H EMDF, ESR, TSH5, LFT3, CRTN3, URIC3, BUN3, GLUC3 #### [address] [address] #### HEPC, KYRA, TPO2 #### [address] #### VD25H, RFB #### [address] [address] #### TRYPO #### The performing lab is in the report. #### SPRTE #### [address] [address] Beta 0.8 g/dL Normal 0.6-1.0 [facility] Comment on above: Performed By: #### H EMDF, ESR, TSH5, LFT3, CRTN3, URIC3, BUN3, GLUC3 #### [address] [address] #### HEPC, KYRA, TPO2 #### [address] [address] #### VD25H, RFB #### [address] [address] #### TRYPO #### The performing lab is in the report. #### SPRTE #### [address] [address] Gamma 0.9 g/dL Normal 0.4-1.4 [facility] Comment on above: Performed By: #### H EMDF, ESR, TSH5, LFT3, CRTN3, URIC3, BUN3, GLUC3 #### [address] [address] #### HEPC, KYRA, TPO2 #### [address] #### VD25H, RFB #### [facility] [address] [facility] [place] [address] #### TRYPO #### The performing lab is in the report. #### SPRTE #### [address] [address] Tryptaseon 09-10-2018 Tryptase 3.2 ug/L Normal <=10.9 [facility] Comment on above: Result Comment: Perf ormed by [employer], [address] [place] [id number] [email or web address], Tu Costa MD - Lab. Director Performed By: #### H EMDF, ESR, TSH5, LFT3, CRTN3, URIC3, BUN3, GLUC3 #### [address] [address] #### HEPC, KYRA, TPO2 #### [address] #### VD25H, RFB #### [address] [place] [address] #### TRYPO #### The performing lab is in the report. #### SPRTE #### [address] [address] Anti-Nuclear Antibodyon 08-17 KYRA Titer < 1 : 40 Normal <1:40 [facility] Comment on above: Performed By: #### H EMDF, ESR, TSH5, LFT3, CRTN3, URIC3, BUN3, GLUC3 #### [address] [address] #### HEPC, KYRA, TPO2 #### [address] [address] #### VD25H, RFB #### [address] [place] [address] #### TRYPO #### The performing lab is in the report. #### SPRTE #### [address] [address] TPO Abon 09-09-2018 TPO Ab 0.7 [IU]/mL Normal 0.0-5.5 [facility] Comment on above: Performed By: #### H EMDF, ESR, TSH5, LFT3, CRTN3, URIC3, BUN3, GLUC3 #### [address] [address] #### HEPC, KYRA, TPO2 #### [address] #### VD25H, RFB #### [address] [address] #### TRYPO #### The performing lab is in the report. #### SPRTE #### [address] [address] Serum Protein Electrophoresi son 09-08-2018 Protein mass conc 7.6 g/dL Normal 6.3-8.2 [facility] Comment on above: Performed By: #### H EMDF, ESR, TSH5, LFT3, CRTN3, URIC3, BUN3, GLUC3 #### [address] [address] #### HEPC, KYRA, TPO2 #### [address] #### VD25H, RFB #### [address] [place] [address] #### TRYPO #### The performing lab is in the report. #### SPRTE #### [address] [address] Creatinineon 09-07-2018 Creatinine mass conc 0.86 mg/dL Normal 0.52-1.25 [facility] Comment on above: Performed By: #### H EMDF, ESR, TSH5, LFT3, CRTN3, URIC3, BUN3, GLUC3 #### [address] [address] #### HEPC, KYRA, TPO2 #### [address] #### VD25H, RFB #### [address] [address] #### TRYPO #### The performing lab is in the report. #### SPRTE #### [address] [address] Creatinine mass conc mg/dL Normal >60 [facility] Comment on above: Result Comment: Sour ce- MDRD equation with creatinine calibration to IDMS(NKDEP) eGFR not recommended for drug dose adjustment Performed By: #### H EMDF, ESR, TSH5, LFT3, CRTN3, URIC3, BUN3, GLUC3 #### [address] [address] #### HEPC, KYRA, TPO2 #### [address] #### VD25H, RFB #### [address] [address] #### TRYPO #### The performing lab is in the report. #### SPRTE #### [address] [address] GFR/1.73 sq M predicted among blacks MDRD vol rate/area (S/P/Bld) mL/min/{1.73_m2} Normal >60 [facility] Comment on above: Performed By: #### H EMDF, ESR, TSH5, LFT3, CRTN3, URIC3, BUN3, GLUC3 #### [address] [address] #### HEPC, KYRA, TPO2 #### [address] #### VD25H, RFB #### [address] [address] #### TRYPO #### The performing lab is in the report. #### SPRTE #### [address] [address] Glucoseon 09-07-2018 Glucose mass conc 92 mg/dL Normal 70-100 [facility] Comment on above: Performed By: #### H EMDF, ESR, TSH5, LFT3, CRTN3, URIC3, BUN3, GLUC3 #### [address] [address] #### HEPC, KYRA, TPO2 #### [address] #### VD25H, RFB #### [address] [address] #### TRYPO #### The performing lab is in the report. #### SPRTE #### [address] [address] Hemogram w/ Autodiffon 09-07 Abs Baso Cnt 0.1 10*3/uL Normal 0.0-0.2 [facility] Comment on above: Performed By: #### H EMDF, ESR, TSH5, LFT3, CRTN3, URIC3, BUN3, GLUC3 #### [address] [address] #### HEPC, KYRA, TPO2 #### [address] #### VD25H, RFB #### [address] [address] #### TRYPO #### The performing lab is in the report. #### SPRTE #### [address] [address] Abs Neutrophile Cnt 3.2 10*3/uL Normal 1.8-7.0 [facility] Comment on above: Performed By: #### H EMDF, ESR, TSH5, LFT3, CRTN3, URIC3, BUN3, GLUC3 #### [facility] [address] [place] [address] #### HEPC, KYRA, TPO2 #### [address] [address] #### VD25H, RFB #### [facility] [address] [place] [address] #### TRYPO #### The performing lab is in the report. #### SPRTE #### [address] [address] Basophils/100 WBC (Bld) 1.2 % Normal 0.0-2.0 [facility] Comment on above: Performed By: #### H EMDF, ESR, TSH5, LFT3, CRTN3, URIC3, BUN3, GLUC3 #### [address] [address] #### HEPC, KYRA, TPO2 #### [address] #### VD25H, RFB #### [facility] [address] [place] [address] #### TRYPO #### The performing lab is in the report. #### SPRTE #### [address] [address] Eosinophils #/vol (Bld) 0.4 10*3/uL Normal 0.0-0.5 [facility] Comment on above: Performed By: #### H EMDF, ESR, TSH5, LFT3, CRTN3, URIC3, BUN3, GLUC3 #### [facility] [address] [place] [address] #### HEPC, KYRA, TPO2 #### [address] #### VD25H, RFB #### [address] [address] #### TRYPO #### The performing lab is in the report. #### SPRTE #### [address] [address] Eosinophils/100 WBC (Bld) 5.8 % Normal 1.0-6.0 [facility] Comment on above: Performed By: #### H EMDF, ESR, TSH5, LFT3, CRTN3, URIC3, BUN3, GLUC3 #### [address] [address] #### HEPC, KYRA, TPO2 #### [address] #### VD25H, RFB #### [address] [address] #### TRYPO #### The performing lab is in the report. #### SPRTE #### [address] [address] Erythrocyte distribution width Ratio (RBC) 13.8 % Normal 11.5-14.5 [facility] Comment on above: Performed By: #### H EMDF, ESR, TSH5, LFT3, CRTN3, URIC3, BUN3, GLUC3 #### [address] [address] #### HEPC, KYRA, TPO2 #### [address] #### VD25H, RFB #### [address] [address] #### TRYPO #### The performing lab is in the report. #### SPRTE #### [address] [address] Granulocytes/100 WBC (Bld) 51.7 % Normal 40.0-80.0 [facility] Comment on above: Performed By: #### H EMDF, ESR, TSH5, LFT3, CRTN3, URIC3, BUN3, GLUC3 #### [address] [address] #### HEPC, KYRA, TPO2 #### [address] #### VD25H, RFB #### [facility] [address] [place] [address] #### TRYPO #### The performing lab is in the report. #### SPRTE #### [address] [address] Hematocrit Volume Fraction (Bld) 45.6 % Normal 40.0-52.0 [facility] Comment on above: Performed By: #### H EMDF, ESR, TSH5, LFT3, CRTN3, URIC3, BUN3, GLUC3 #### [address] [address] #### HEPC, KYRA, TPO2 #### [address] #### VD25H, RFB #### [facility] [address] [facility] [place] [address] #### TRYPO #### The performing lab is in the report. #### SPRTE #### [address] [address] Hemoglobin mass conc (Bld) 15.9 g/dL Normal 13.0-18.0 [facility] Comment on above: Performed By: #### H EMDF, ESR, TSH5, LFT3, CRTN3, URIC3, BUN3, GLUC3 #### [address] [address] #### HEPC, KYRA, TPO2 #### [address] #### VD25H, RFB #### [address] [address] #### TRYPO #### The performing lab is in the report. #### SPRTE #### [address] [address] Lymphocytes #/vol (Bld) 2.2 10*3/uL Normal 1.0-4.3 [facility] Comment on above: Performed By: #### H EMDF, ESR, TSH5, LFT3, CRTN3, URIC3, BUN3, GLUC3 #### [address] [address] #### HEPC, KYRA, TPO2 #### [address] [address] #### VD25H, RFB #### [facility] [address] [place] [address] #### TRYPO #### The performing lab is in the report. #### SPRTE #### [address] [address] Lymphocytes/100 WBC (Bld) 34.9 % Normal 20.0-40.0 [facility] Comment on above: Performed By: #### H EMDF, ESR, TSH5, LFT3, CRTN3, URIC3, BUN3, GLUC3 #### [address] [address] #### HEPC, KYRA, TPO2 #### [address] #### VD25H, RFB #### [address] [address] #### TRYPO #### The performing lab is in the report. #### SPRTE #### [address] [address] MCH Entitic mass (RBC) 29.4 pg Normal 26.0-34.0 [facility] Comment on above: Performed By: #### H EMDF, ESR, TSH5, LFT3, CRTN3, URIC3, BUN3, GLUC3 #### [address] [address] #### HEPC, KYRA, TPO2 #### [address] #### VD25H, RFB #### [address] [address] #### TRYPO #### The performing lab is in the report. #### SPRTE #### [address] [address] MCHC mass conc (RBC) 34.9 % Normal 32.0-36.0 [facility] Comment on above: Performed By: #### H EMDF, ESR, TSH5, LFT3, CRTN3, URIC3, BUN3, GLUC3 #### [facility] [address] [place] [address] #### HEPC, KYRA, TPO2 #### [address] [address] #### VD25H, RFB #### [address] [address] #### TRYPO #### The performing lab is in the report. #### SPRTE #### [address] [address] MCV Entitic volume (RBC) 84.1 fL Normal 80.0-98.0 [facility] Comment on above: Performed By: #### H EMDF, ESR, TSH5, LFT3, CRTN3, URIC3, BUN3, GLUC3 #### [address] [address] #### HEPC, KYRA, TPO2 #### [address] [address] #### VD25H, RFB #### [address] [address] #### TRYPO #### The performing lab is in the report. #### SPRTE #### [address] [address] Monocytes #/vol (Bld) 0.4 10*3/uL Normal 0.0-0.8 [facility] Comment on above: Performed By: #### H EMDF, ESR, TSH5, LFT3, CRTN3, URIC3, BUN3, GLUC3 #### [address] [address] #### HEPC, KYRA, TPO2 #### [address] [place] [address] #### VD25H, RFB #### [facility] [address] [place] [address] #### TRYPO #### The performing lab is in the report. #### SPRTE #### [address] [address] Monocytes/100 WBC (Bld) 6.4 % Normal 2.0-10.0 [facility] Comment on above: Performed By: #### H EMDF, ESR, TSH5, LFT3, CRTN3, URIC3, BUN3, GLUC3 #### [facility] [address] [place] [address] #### HEPC, KYRA, TPO2 #### [address] [address] #### VD25H, RFB #### [address] [address] #### TRYPO #### The performing lab is in the report. #### SPRTE #### [address] [address] Platelet mean volume Entitic volume (Bld) 7.9 fL Normal 7.4-10.4 [facility] Comment on above: Performed By: #### H EMDF, ESR, TSH5, LFT3, CRTN3, URIC3, BUN3, GLUC3 #### [facility] [address] [place] [address] #### HEPC, KYRA, TPO2 #### [address] [address] #### VD25H, RFB #### [address] [address] #### TRYPO #### The performing lab is in the report. #### SPRTE #### [address] [address] Platelets #/vol (Bld) 278 10*3/uL Normal 140-440 [facility] Comment on above: Performed By: #### H EMDF, ESR, TSH5, LFT3, CRTN3, URIC3, BUN3, GLUC3 #### [address] [address] #### HEPC, KYRA, TPO2 #### [address] #### VD25H, RFB #### [facility] [address] [place] [address] #### TRYPO #### The performing lab is in the report. #### SPRTE #### [address] [address] RBC #/vol (Bld) 5.42 10*6/uL Normal 4.40-5.90 [facility] Comment on above: Performed By: #### H EMDF, ESR, TSH5, LFT3, CRTN3, URIC3, BUN3, GLUC3 #### [address] #### HEPC, KYRA, TPO2 #### [address] #### VD25H, RFB #### [facility] [address] [place] [address] #### TRYPO #### The performing lab is in the report. #### SPRTE #### [address] [address] WBC #/vol (Bld) 6.2 10*3/uL Normal 3.6-10.7 [facility] Comment on above: Performed By: #### H EMDF, ESR, TSH5, LFT3, CRTN3, URIC3, BUN3, GLUC3 #### [address] [address] #### HEPC, KYRA, TPO2 #### [address] #### VD25H, RFB #### [address] [address] #### TRYPO #### The performing lab is in the report. #### SPRTE #### [address] [address] Hep C Antibodyon 09-07-2018 Hep C Antibody NOT DETECTED Normal Not-Detecte d [facility] Comment on above: Result Comment: Deja ents with DETECTED Hepatitis C Ab results should have a new specimen submitted for supplemental testing with a Hepatitis C Quantitative RNA assay (viral load), if clinically indicated. Performed By: #### H EMDF, ESR, TSH5, LFT3, CRTN3, URIC3, BUN3, GLUC3 #### [address] [address] #### HEPC, KYRA, TPO2 #### [address] #### VD25H, RFB #### [facility] [address] [facility] [place] [address] #### TRYPO #### The performing lab is in the report. #### SPRTE #### [address] [address] Hepatic Functionon 9 ALP enzyme act/vol 81 U/L Normal 38-126 [facility] Comment on above: Performed By: #### H EMDF, ESR, TSH5, LFT3, CRTN3, URIC3, BUN3, GLUC3 #### [address] [address] #### HEPC, KYRA, TPO2 #### [address] #### VD25H, RFB #### [facility] [address] [facility] [place] [address] #### TRYPO #### The performing lab is in the report. #### SPRTE #### [address] [address] ALT enzyme act/vol 45 U/L Normal 13-69 [facility] Comment on above: Performed By: #### H EMDF, ESR, TSH5, LFT3, CRTN3, URIC3, BUN3, GLUC3 #### [facility] [address] [place] [address] #### HEPC, KYRA, TPO2 #### [address] #### VD25H, RFB #### [facility] [address] [place] [address] #### TRYPO #### The performing lab is in the report. #### SPRTE #### [address] [address] AST enzyme act/vol 27 U/L Normal 15-46 [facility] Comment on above: Performed By: #### H EMDF, ESR, TSH5, LFT3, CRTN3, URIC3, BUN3, GLUC3 #### [address] [address] #### HEPC, KYRA, TPO2 #### [address] #### VD25H, RFB #### [address] [address] #### TRYPO #### The performing lab is in the report. #### SPRTE #### [address] [address] Bilirubin mass conc 0.9 mg/dL Normal 0.2-1.3 [facility] Comment on above: Performed By: #### H EMDF, ESR, TSH5, LFT3, CRTN3, URIC3, BUN3, GLUC3 #### [address] [address] #### HEPC, KYRA, TPO2 #### [address] #### VD25H, RFB #### [address] [address] #### TRYPO #### The performing lab is in the report. #### SPRTE #### [address] [address] Bilirubin.direct mass conc 0.0 mg/dL Normal 0.0-0.3 [facility] Comment on above: Performed By: #### H EMDF, ESR, TSH5, LFT3, CRTN3, URIC3, BUN3, GLUC3 #### [address] [address] #### HEPC, KYRA, TPO2 #### [address] [address] #### VD25H, RFB #### [address] [address] #### TRYPO #### The performing lab is in the report. #### SPRTE #### [address] [address] Protein mass conc 7.6 g/dL Normal 6.3-8.2 [facility] Comment on above: Performed By: #### H EMDF, ESR, TSH5, LFT3, CRTN3, URIC3, BUN3, GLUC3 #### [address] [address] #### HEPC, KYRA, TPO2 #### [address] #### VD25H, RFB #### [address] [address] #### TRYPO #### The performing lab is in the report. #### SPRTE #### [address] [address] Albumin mass conc 4.7 g/dL Normal 3.5-5.0 [facility] Comment on above: Performed By: #### H EMDF, ESR, TSH5, LFT3, CRTN3, URIC3, BUN3, GLUC3 #### [address] [address] #### HEPC, KYRA, TPO2 #### [address] #### VD25H, RFB #### [address] [address] #### TRYPO #### The performing lab is in the report. #### SPRTE #### [address] [address] Rheumatiod Factor, Bloodon 0 09-07-2018 Rheumatoid Factor-Blood < 9 Normal 0-12 [facility] Comment on above: Performed By: #### H EMDF, ESR, TSH5, LFT3, CRTN3, URIC3, BUN3, GLUC3 #### [address] [address] #### HEPC, KYRA, TPO2 #### [address] [address] #### VD25H, RFB #### [address] [address] #### TRYPO #### The performing lab is in the report. #### SPRTE #### [address] [address] Sed Rateon 09-07-2018 Sed Rate 2 mm/h Normal 0-10 [facility] Comment on above: Performed By: #### H EMDF, ESR, TSH5, LFT3, CRTN3, URIC3, BUN3, GLUC3 #### [address] [address] #### HEPC, KYRA, TPO2 #### [address] [address] #### VD25H, RFB #### [address] [address] #### TRYPO #### The performing lab is in the report. #### SPRTE #### [address] [address] Thyroid Stim. Hormoneon - Thyroid Stim. Hormone 0.618 u[IU]/mL Normal 0.465-4.680 [facility] Comment on above: Performed By: #### H EMDF, ESR, TSH5, LFT3, CRTN3, URIC3, BUN3, GLUC3 #### [facility] [address] [place] [address] #### HEPC, KYRA, TPO2 #### [address] [address] #### VD25H, RFB #### [address] [address] #### TRYPO #### The performing lab is in the report. #### SPRTE #### [address] [address] Urea Nitrogenon 09-07-2018 Urea nitrogen mass conc 8 mg/dL Normal 7-20 [facility] Comment on above: Performed By: #### H EMDF, ESR, TSH5, LFT3, CRTN3, URIC3, BUN3, GLUC3 #### [address] [address] #### HEPC, KYRA, TPO2 #### [address] #### VD25H, RFB #### [address] [address] #### TRYPO #### The performing lab is in the report. #### SPRTE #### [address] [address] Uric Acidon 09-07-2018 Urate mass conc 7.6 mg/dL Normal 2.5-8.5 [facility] Comment on above: Performed By: #### H EMDF, ESR, TSH5, LFT3, CRTN3, URIC3, BUN3, GLUC3 #### [address] [address] #### HEPC, KYRA, TPO2 #### [address] #### VD25H, RFB #### [address] [address] #### TRYPO #### The performing lab is in the report. #### SPRTE #### [address] [place] [address] Vit D 25-OH, Totalon 019 Vit D 25-OH, Total 28 ng/mL Low 30-100 [facility] Comment on above: Result Comment: Ther apy is based on measurement of Total 25- OHD with the following classification levels: Less than 20 ng/mL: Indicative of Vit D deficiency 20-30 ng/mL: Suggests Vit D insufficiency Optimal: Greater than or equal to 30 ng/mL Test performed by [employer] Competitive Immunoassay, measuring Total Vitamin D, not individual fractions. Performed By: #### H EMDF, ESR, TSH5, LFT3, CRTN3, URIC3, BUN3, GLUC3 #### [facility] [address] [place] [address] #### HEPC, KYRA, TPO2 #### [facility] [address] [place] [address] #### VD25H, RFB #### [facility] [address] [place] [address] #### TRYPO #### The performing lab is in the report. #### SPRTE #### [facility] [address] [place] [address] Activated PTTon 10-19-2017 aPTT 25.1 s Normal 23.0-32.4 [facility] Comment on above: Result Comment: Note new reference range. Performed By: #### L APTT ####[address] [address] Basic Panelon 10-19-2017 Anion gap 11 mmol/L Normal 8-20 [facility] Comment on above: Performed By: #### L P8 ####[address] [address] BUN (urea nitrogen) 6 mg/dL Low 7-25 [facility] Comment on above: Performed By: #### L P8 ####[address] [address] BUN/Creatinine Ratio 6 mg/mg Low 10-20 [facility] Comment on above: Performed By: #### L P8 ####[address] [place] [address] Calcium 9.4 mg/dL Normal 8.5-10.1 [facility] Comment on above: Performed By: #### L P8 ####[facility] [place], [place] [address] Chloride 106 mmol/L Normal 98-107 [facility] Comment on above: Performed By: #### L P8 ####[facility] [place], [place] [address] CO2 27 mmol/L Normal 21-32 [facility] Comment on above: Performed By: #### L P8 ####[facility] [place] [address] Creatinine 0.95 mg/dL Normal 0.67-1.17 [facility] Comment on above: Performed By: #### L P8 ####[address] [address] Glucose mass conc 111 mg/dL High 70-99 [facility] Comment on above: Performed By: #### L P8 ####[address] [address] Potassium molar conc 3.1 mmol/L Low 3.5-5.1 [facility] Comment on above: Performed By: #### L P8 ####[place] [address] Sodium 141 mmol/L Normal 136-145 [facility] Comment on above: Performed By: #### L P8 ####[place] [address] CHEST 1 VIEWon 10-19-2017 CHEST [address] [facility] APPROVED BY: Norman Patino MD EXAMINATION: [...] Other: Visualized osseous structures are intact. Normal [facility] CT BRAIN ATTACKon 10-19-2017 CT BRAIN ATTACK Performed at [facility] APPROVED BY: Eric Arias MD EXAMINATION: [...] on 10/19/2017 at 0915 hours. CR_1 Normal [facility] Hemogramon 10-19-2017 Erythrocyte distribution width Auto Ratio (RBC) 13.1 % Normal 11.5-15.9 [facility] Comment on above: Performed By: #### L CBC ####[address] [address] Erythrocytes (RBC) 5.24 mil/cmm Normal 4.60-6.20 [facility] Comment on above: Performed By: #### L CBC ####[facility] [place], [place] [address] Hematocrit (HCT) 43.9 % Normal 42.0-52.0 [facility] Comment on above: Performed By: #### L CBC ####[place] [address] Hemoglobin mass conc (Bld) 15.4 g/dL Normal 14.0-18.0 [facility] Comment on above: Performed By: #### L CBC ####[place] [address] MCH 29.4 pg Normal 27.0-31.0 [facility] Comment on above: Performed By: #### L CBC ####[place] [address] MCHC mass conc (RBC) 35.1 % Normal 32.0-36.0 [facility] Comment on above: Performed By: #### L CBC ####[place] [address] MCV 83.8 fL Normal 80.0-94.0 [facility] Comment on above: Performed By: #### L CBC ####[place] [address] Platelet mean volume (PMV) 9.8 fL Normal 7.1-10.5 [facility] Comment on above: Performed By: #### L CBC ####[place] [address] Platelets 257 thou/cmm Normal 150-400 [facility] Comment on above: Performed By: #### L CBC ####[place] [address] WBC (Leukocytes) 7.1 thou/cmm Normal 4.8-10.8 [facility] Comment on above: Performed By: #### L CBC ####[place] [address] MDRD eGFRon 10-19-2017 eGFR (non-black) mL/min/{1.73_m2} Normal >60mL/m in/1 .73m2 [facility] Comment on above: Result Comment: If t he patient is , multiply the result by 1.210. Performed By: #### L GFR ####[place] [address] Protimeon 10-19-2017 INR Coag RelTime (PPP) 1.00 {INR} Normal [facility] Comment on above: Result Comment: Toñito dard Therapy 2.0-3.0High Dose 2.5-3.5 Performed By: #### L PT ####[facility] [place], [place] [address] Prothrombin time (PT) Coag time (PPP) 10.4 s Normal 9.7-13.0 [facility] Comment on above: Result Comment: Note new reference range. Performed By: #### L PT ####[address] [address] Vital Signs Date Time Vital Sign Value Performing Clinician Facility 02-18-2025 20:55-0400 Body temperature 97.5 [degF] Dr. Lanette Harkins DO Work Phone: [facility] 02-18-2025 20:55-0400 Diastolic blood pressure 87 mm[Hg] Dr. Lanette Harkins DO Work Phone: [facility] 02-18-2025 20:55-0400 Heart rate 65 /min Dr. Lanette Harkins DO Work Phone: [facility] 02-18-2025 20:55-0400 Respiratory rate 16 /min Dr. Lanette Harkins DO Work Phone: [facility] 02-18-2025 20:55-0400 SaO2% (BldA) [Mass fraction] 99 % Dr. Lanette Harkins DO Work Phone: [facility] 02-18-2025 20:55-0400 Systolic blood pressure 145 mm[Hg] Dr. Lanette Harkins DO Work Phone: [facility] 02-18-2025 20:05-0400 Body height 182.[address] Lanette Harkins DO Work Phone: [facility] 02-18-2025 20:05-0400 Body mass index (BMI) [Ratio] 34.5 kg/m2 Dr. Lanette Harkins DO Work Phone: [facility] 02-18-2025 20:05-0400 Body weight 115.[address] Lanette Harkins DO Work Phone: [facility] 11-30-2024 16:10-0400 Body mass index (BMI) [Ratio] 30.85 kg/m2 [facility] 11-30-2024 16:10-0400 Body weight 111.95 kg [facility] 11-30-2024 16:10-0400 Diastolic blood pressure 94 mm[Hg] [facility] 11-30-2024 16:10-0400 Heart rate 69 /min [facility] 11-30-2024 16:10-0400 Respiratory rate 16 /[facility]-30-2024 16:10-0400 SaO2% (BldA) [Mass fraction] 95 % [facility] 11-30-2024 16:10-0400 Systolic blood pressure 145 mm[Hg] [facility] 11-02-2024 15:50-0400 Body mass index (BMI) [Ratio] 30.95 kg/m2 [facility] 11-02-2024 15:50-0400 Body weight 112.31 kg [facility] 11-02-2024 15:50-0400 Diastolic blood pressure 90 mm[Hg] [facility] 11-02-2024 15:50-0400 Heart rate 66 /min [facility] 11-02-2024 15:50-0400 Respiratory rate 16 /min [facility] 11-02-2024 15:50-0400 SaO2% (BldA) [Mass fraction] 99 % [facility] 11-02-2024 15:50-0400 Systolic blood pressure 138 mm[Hg] [facility] 10-25-2024 10:33-0400 Body height 182.[address] Lanette Harkins DO Work Phone: [facility] 10-25-2024 10:33-0400 Body mass index (BMI) [Ratio] 32.5 kg/m2 Dr. Lanette Harkins DO Work Phone: [facility] 10-25-2024 10:33-0400 Body weight 108.[address] Lanette Harkins DO Work Phone: [facility] 10-19-2024 11:08-0400 Body height 182.[address] Lanette Harkins DO Work Phone: [facility] 10-19-2024 11:08-0400 Body mass index (BMI) [Ratio] 33 kg/m2 Dr. Lanette Harkins DO Work Phone: [facility] 10-19-2024 11:08-0400 Body weight 110.[address] Lanette Harkins DO Work Phone: [facility] 10-06-2024 11:26-0400 Body mass index (BMI) [Ratio] 32.5 kg/m2 Dr. Lanette Harkins DO Work Phone: [facility] 10-06-2024 11:26-0400 Body weight 108.[address] Lanette Harkins DO Work Phone: [facility] 09-20-2024 10:55-0400 Body mass index (BMI) [Ratio] 33.9 kg/m2 Dr. Lanette Harkins DO Work Phone: [facility] 09-20-2024 10:55-0400 Body weight 113.[address] Lanette Harkins DO Work Phone: [facility] 03-15-2024 09:22-0400 Body height 190.5 cm [facility] [employer] WORKER - FLEXIBLE MACHINING SYSTEM MACHINIST Work Phone: [facility] 03-15-2024 09:22-0400 Body mass index (BMI) [Ratio] 31.5 kg/m2 [facility] [employer] WORKER - FLEXIBLE MACHINING SYSTEM MACHINIST Work Phone: [facility] 03-15-2024 09:22-0400 Body weight 114.31 kg [facility] [employer] WORKER - FLEXIBLE MACHINING SYSTEM MACHINIST Work Phone: [facility] 03-15-2024 09:22-0400 Diastolic blood pressure 73 mm[Hg] Cyndy Waltno [employer] WORKER - FLEXIBLE MACHINING SYSTEM MACHINIST Work Phone: [facility] 03-15-2024 09:22-0400 Heart rate 110 /min Cyndy Walton [employer] WORKER - FLEXIBLE MACHINING SYSTEM MACHINIST Work Phone: [facility] 03-15-2024 09:22-0400 Systolic blood pressure 128 mm[Hg] Cyndy Walton [employer] WORKER - FLEXIBLE MACHINING SYSTEM MACHINIST Work Phone: [facility] 02-23-2024 08:57-0400 Diastolic blood pressure 92 mm[Hg] Jennifer Munroe MD Work Phone: [facility] 02-23-2024 08:57-0400 Heart rate 88 /min Jennifer Munroe MD Work Phone: [facility] 02-23-2024 08:57-0400 Respiratory rate 16 /min Jennifer Munroe MD Work Phone: [facility] 02-23-2024 08:57-0400 SaO2% (BldA) [Mass fraction] 95 % Jennifer Munroe MD Work Phone: [facility] 02-23-2024 08:57-0400 Systolic blood pressure 134 mm[Hg] Jennifer Munroe MD Work Phone: [facility] 12-03-2023 10:59-0400 Diastolic blood pressure 81 mm[Hg] Jennifer Munroe MD Work Phone: [facility] 12-03-2023 10:59-0400 Heart rate 69 /min Jennifer Munroe MD Work Phone: [facility] 12-03-2023 10:59-0400 SaO2% (BldA) [Mass fraction] 96 % Jennifer Munroe MD Work Phone: [facility] 12-03-2023 10:59-0400 Systolic blood pressure 130 mm[Hg] Jennifer Munroe MD Work Phone: [facility] 11-09-2023 11:19-0400 Diastolic blood pressure 89 mm[Hg] Jennifer Munroe MD Work Phone: [facility] 11-09-2023 11:19-0400 Heart rate 91 /min Jennifer Munroe MD Work Phone: [facility] 11-09-2023 11:19-0400 Respiratory rate 18 /min Jennifer Munroe MD Work Phone: [facility] 11-09-2023 11:19-0400 SaO2% (BldA) [Mass fraction] 94 % Jennifer Munroe MD Work Phone: [facility] 11-09-2023 11:19-0400 Systolic blood pressure 131 mm[Hg] Jennifer Munroe MD Work Phone: [facility] 08-20-2023 10:39-0400 Body height 192.9 cm Mireya Hehr PA-C Work Phone: [facility] 08-20-2023 10:39-0400 Body temperature 98.49 [degF] Mireya Colindreshr PA-C Work Phone: [facility] 08-20-2023 10:39-0400 Body weight 119.85 kg Mireya Hehr PA-C Work Phone: [facility] 08-20-2023 10:39-0400 Diastolic blood pressure 77 mm[Hg] Mireya Hehr PA-C Work Phone: [facility] 08-20-2023 10:39-0400 Heart rate 86 /min Mireya Hehr PA-C Work Phone: [facility] 08-20-2023 10:39-0400 Systolic blood pressure 125 mm[Hg] Mireya Hehr PA-C Work Phone: [facility] 06-30-2023 12:11-0500 Diastolic blood pressure 90 mm[Hg] Jennifer Munroe MD Work Phone: [facility] 06-30-2023 12:11-0500 Heart rate 111 /min Jennifer Munroe MD Work Phone: [facility] 06-30-2023 12:11-0500 Respiratory rate 16 /min Jennifer Munroe MD Work Phone: [facility] 06-30-2023 12:11-0500 SaO2% (BldA) [Mass fraction] 96 % Jennifer Munroe MD Work Phone: [facility] 06-30-2023 12:11-0500 Systolic blood pressure 138 mm[Hg] Jennifer Munroe MD Work Phone: [facility] 03-05-2023 13:18-0400 Diastolic blood pressure 89 mm[Hg] Rowan Boateng DO Work Phone: [facility] 03-05-2023 13:18-0400 Heart rate 78 /min Rowan Boateng DO Work Phone: [facility] 03-05-2023 13:18-0400 Respiratory rate 16 /min Rowan Boateng DO Work Phone: [facility] 03-05-2023 13:18-0400 SaO2% (BldA) [Mass fraction] 98 % Rowan Boateng DO Work Phone: [facility] 03-05-2023 13:18-0400 Systolic blood pressure 137 mm[Hg] Rowan Boateng DO Work Phone: [facility] 03-05-2023 13:03-0400 Body temperature 98.01 [degF] Rowan Boateng DO Work Phone: [facility] 02-17-2023 12:44-0400 Body height 192 cm Rowan Boateng DO Work Phone: [facility] 02-17-2023 12:44-0400 Body weight 111.13 kg Rowan Boateng DO Work Phone: [facility] 02-17-2023 12:44-0400 Diastolic blood pressure 102 mm[Hg] Rowan Boateng DO Work Phone: [facility] 02-17-2023 12:44-0400 Heart rate 87 /min Rowan Boateng DO Work Phone: [facility] 02-17-2023 12:44-0400 Respiratory rate 19 /min Rowan Boateng DO Work Phone: [facility] 02-17-2023 12:44-0400 SaO2% (BldA) [Mass fraction] 97 % Rowan Boateng DO Work Phone: [facility] 02-17-2023 12:44-0400 Systolic blood pressure 150 mm[Hg] Rowna Boateng DO Work Phone: [facility] 02-16-2023 12:28-0400 Body height 188 cm Mireya Sweet PA-C Work Phone: [facility] 02-16-2023 12:28-0400 Body temperature 98.71 [degF] Mireya Sweet PA-C Work Phone: [facility] 02-16-2023 12:28-0400 Body weight 112.45 kg Mireya Sweet PA-C Work Phone: [facility] 02-16-2023 12:28-0400 Diastolic blood pressure 87 mm[Hg] Mireya Hehr PA-C Work Phone: [facility] 02-16-2023 12:28-0400 Heart rate 73 /min Mireya Sweet PA-C Work Phone: [facility] 02-16-2023 12:28-0400 Systolic blood pressure 122 mm[Hg] Mireya Colindreshr PA-C Work Phone: [facility] 12-09-2022 11:53-0400 Body height 192 cm Rowan Boateng DO Work Phone: [facility] 12-09-2022 11:53-0400 Body weight 113.4 kg Rowan Boateng DO Work Phone: [facility] 12-09-2022 11:53-0400 Diastolic blood pressure 90 mm[Hg] Rowan Boateng DO Work Phone: [facility] 12-09-2022 11:53-0400 Heart rate 89 /min Rowan Boateng DO Work Phone: [facility] 12-09-2022 11:53-0400 Respiratory rate 19 /min Rowan Boateng DO Work Phone: [facility] 12-09-2022 11:53-0400 SaO2% (BldA) [Mass fraction] 99 % Rowan Boateng DO Work Phone: [facility] 12-09-2022 11:53-0400 Systolic blood pressure 140 mm[Hg] Rowna Boateng DO Work Phone: [facility] 09-02-2022 13:23-0400 Body height 190.5 cm Vicenta Davey PA-C Work Phone: [facility] 09-02-2022 13:23-0400 Body mass index (BMI) [Ratio] 29.98 kg/m2 Vicenta Davey PA-C Work Phone: [facility] 09-02-2022 13:23-0400 Body temperature 98.1 [degF] Vicenta Poean PA-C Work Phone: [facility] 09-02-2022 13:23-0400 Body weight 108.8 kg Vicenta Davey PA-C Work Phone: [facility] 09-02-2022 13:23-0400 Diastolic blood pressure 97 mm[Hg] Vicenta Davey PA-C Work Phone: [facility] 09-02-2022 13:23-0400 Heart rate 72 /min Vicenta Davey PA-C Work Phone: [facility] 09-02-2022 13:23-0400 Respiratory rate 18 /min Vicenta Vass PA-C Work Phone: [facility] 09-02-2022 13:23-0400 Systolic blood pressure 146 mm[Hg] Vicenta Poean PA-C Work Phone: [facility] 06-30-2022 15:40-0500 Body weight 107.96 kg Rowan Boateng DO Work Phone: [facility] 06-16-2022 15:22-0500 Body height 192 cm Rowan Boateng DO Work Phone: [facility] 06-16-2022 15:22-0500 Body weight 113.4 kg Rowan Boateng DO Work Phone: [facility] 06-16-2022 15:22-0500 Diastolic blood pressure 102 mm[Hg] Rowan Boateng DO Work Phone: [facility] 06-16-2022 15:22-0500 Heart rate 111 /min Rowan Boateng DO Work Phone: [facility] 06-16-2022 15:22-0500 Respiratory rate 19 /min Rowan Boateng DO Work Phone: [facility] 06-16-2022 15:22-0500 SaO2% (BldA) [Mass fraction] 97 % Rowan Boateng DO Work Phone: [facility] 06-16-2022 15:22-0500 Systolic blood pressure 142 mm[Hg] Rowan Boateng DO Work Phone: [facility] 05-23-2022 09:51-0500 Body height 191.8 cm Iesha Casillasi PA-C Work Phone: [facility] 05-23-2022 09:51-0500 Body weight 112.49 kg Iesha Regotti PA-C Work Phone: [facility] 04-21-2022 09:20-0500 Body height 192 cm Rowan Boateng DO Work Phone: [facility] 04-21-2022 09:20-0500 Body weight 112.49 kg Rowan Boateng DO Work Phone: [facility] 04-21-2022 09:20-0500 Diastolic blood pressure 85 mm[Hg] Rowan Boateng DO Work Phone: [facility] 04-21-2022 09:20-0500 Heart rate 83 /min Rowan Boateng DO Work Phone: [facility] 04-21-2022 09:20-0500 Respiratory rate 19 /min Rowan Boateng DO Work Phone: [facility] 04-21-2022 09:20-0500 SaO2% (BldA) [Mass fraction] 98 % Rowan Boateng DO Work Phone: [facility] 04-21-2022 09:20-0500 Systolic blood pressure 134 mm[Hg] Rowan Boateng DO Work Phone: [facility] 04-04-2021 01:22-0500 Diastolic blood pressure 88 mm[Hg] DR ALFONZO WHITE DO [facility] 04-04-2021 01:22-0500 Heart rate 89 /min DR ALFONZO WHITE DO [facility] 04-04-2021 01:22-0500 Respiratory rate 18 /min DR ALFONZO WHITE DO [facility] 04-04-2021 01:22-0500 Systolic blood pressure 129 mm[Hg] DR ALFONZO WHITE DO [facility] 04-03-2021 23:52-0500 Body height 190.[address] ALFONZO WHITE DO [facility] 04-03-2021 23:52-0500 Body temperature 98.96 [degF] DR ALFONZO WHITE DO [facility] 04-03-2021 23:52-0500 Body weight 104.[address] ALFONZO WHITE DO [facility] 04-03-2021 23:52-0500 Diastolic blood pressure 99 mm[Hg] DR ALFONZO WHITE DO [facility] 04-03-2021 23:52-0500 Heart rate 103 /min DR ALFONZO WHITE DO [facility] 04-03-2021 23:52-0500 Respiratory rate 20 /min DR ALFONZO WHITE DO [facility] 04-03-2021 23:52-0500 Systolic blood pressure 133 mm[Hg] DR ALFONZO WHITE DO [facility] Encounters Encounter Date Encounter Type Care Provider Facility Start: 2025 Encounter for other preprocedural examination Fred Huber [facility] Start: 02-26-2025 End: 02-27-2025 Emergency department patient visit [facility] Start: 02-22-2025 End: 02-22-2025 ambulatory [facility] Facility:[id number] Start: 02-18-2025 End: 02-18-2025 Emergency department patient visit Dr. Lanette Harkins DO Work Phone: -Emergency Department Work Phone: Start: 02-18-2025 End: 02-18-2025 [facility] Start: 02-09-2025 End: 02-09-[address] Fred Huber MD [facility] Work Phone: Start: 02-09-2025 End: 02-09-[address] Lanette Harkins DO Work Phone[facility] Start: 01-24-2025 End: 01-25-2025 Telephone encounter Puneet Mcbride MD Work Phone: Pain Management Start: 12-05-2024 End: 12-05-[address] Santiago Marcano MD -[facility] Start: 12-05-2024 End: 12-05-[address] Lanette Harkins DO Work Phone: -[facility] Start: 12-03-2024 End: 12-04-2024 Emergency department patient visit LEYLA DO [facility] Start: 11-30-2024 End: 11-30-2024 Patient encounter procedure Nurse Pain Infusion Shaun [facility] Comment on above: Chronic pain syndrom e (Primary Dx); Chronic right shoulder pain; Contusion of right hip region Start: 11-30-2024 End: 11-30-2024 ambulatory FRED PETERS Facility:[id number] Start: 11-21-2024 End: 11-21-[address] Fred Huber MD -[facility] Work Phone: Start: 11-21-2024 End: 11-21-[address] Lanette Harkins DO Work Phone: -[facility] Start: 11-15-2024 End: 11-15-[address] Lanette Harkins DO Work Phone: [facility] Start: 11-15-2024 End: 11-15-[address] Fred Huber MD [facility] Work Phone: Start: 11-15-2024 End: 11-15-2024 ambulatory Fred Huber Facility:[facility] Start: 11-10-2024 End: 11-14-2024 ambulatory FRED PETERS DO Facility:[facility] Start: 11-10-2024 End: 11-14-2024 Outreach Lab SHAAN SOLORIO APRN-FLEXIBLE MACHINING SYSTEM MACHINIST [facility] Start: 11-04-2024 ambulatory Fred Huber Facility :[facility] Start: 11-02-2024 End: 11-02-2024 Patient encounter procedure Nurse Pain Infusion Shaun Danielle [facility] Comment on above: Chronic pain syndrom e (Primary Dx); Chronic right shoulder pain; Contusion of right hip region Start: 11-02-2024 End: 11-02-2024 ambulatory LANETTE Lynch RISSA Facility:[id number] Start: 11-01-2024 End: 11-02-2024 Telephone encounter Puneet Mcbride MD Work Phone: Pain Management Start: 10-30-2024 End: 10-31-2024 Refill Milena E Barr STUCCO WORKER.FLEXIBLE MACHINING SYSTEM MACHINIST Work Phone: Pain [facility] Comment on above: Refill Request Start: 10-27-2024 End: 10-27-[address] Fred Huber MD -[facility] Work Phone: Start: 10-27-2024 End: 10-27-[address] Lanette Harkins DO Work Phone: [facility] Work Phone: Start: 10-26-2024 End: 10-26-2024 Refill Milena E Barr STUCCO WORKER.FLEXIBLE MACHINING SYSTEM MACHINIST Work Phone: Pain [facility] Comment on above: Refill Request Start: 10-25-2024 End: 10-25-[address] Santiago Marcano MD -[facility] Start: 10-25-2024 End: 10-25-[address] Lanette Harkins DO Work Phone: [facility] Work Phone: Start: 10-19-2024 End: 10-19-[address] Fred Huber MD -[facility] Work Phone: Start: 10-19-2024 End: 10-19-[address] Lanette Harkins DO Work Phone: [facility] Work Phone: Start: 10-18-2024 ambulatory Fred Huber Facility [facility] Start: 10-13-2024 ambulatory [facility] Start: 10-06-2024 End: 10-11-2024 Telephone encounter Leeann Owens PA-C Work Phone: Pain Management Comment on above: Scheduling infusions Start: 10-06-2024 End: 10-06-2024 ambulatory LEEANN OWENS Facility:[id number] Start: 10-06-2024 End: 10-06-[address] Fred Huber MD -[facility] Work Phone: Start: 10-06-2024 End: 10-06-2024 ambulatory [facility] Facility:[facility] Start: 09-20-2024 End: 09-20-[address] Fred Huber MD -[facility] Work Phone: Start: 09-20-2024 End: 09-20-2024 ambulatory [facility] Start: 08-29-2024 End: 08-29-2024 Refill Francisco Young PA-C Work Phone: Pain [facility] Comment on above: Refill Request Start: 08-26-2024 End: 08-26-2024 Refill Rachel Arguelles PA-C Work Phone: [facility] Comment on above: Refill Request Start: 07-26-2024 ambulatory [facility] DO Facil ity:[facility] Start: 07-19-2024 End: 07-19-[address] Fred Huber MD -[facility] Work Phone: Start: 07-19-2024 End: 07-19-2024 ambulatory [facility] Facility:[facility] Start: 07-01-2024 End: 07-01-2024 Telephone encounter Leeann Owens PA-C Work Phone: Pain Management Comment on above: Missed Appointment Start: 06-28-2024 Emergency department patient visit [facility] Start: 05-24-2024 End: 05-24-2024 ambulatory ALLI DACOSTA STUCCO WORKER - FLEXIBLE MACHINING SYSTEM MACHINIST Facility:[facility] Start: 05-24-2024 End: 05-24-2024 Patient encounter procedure ALLI DACOSTA STUCCO WORKER - FLEXIBLE MACHINING SYSTEM MACHINIST [facility] Start: 05-16-2024 End: 05-16-2024 Refill Milena Fontanez Barr STUCCO WORKER.FLEXIBLE MACHINING SYSTEM MACHINIST Work Phone: [facility] Comment on above: Refill Request Start: 05-16-2024 End: 05-16-2024 Emergency department patient visit MIREYA DESAI [facility] Start: 05-05-2024 ambulatory ALLI DOHERTYBrinda OROSCO STUCCO WORKER - FLEXIBLE MACHINING SYSTEM MACHINIST Facility:[facility] Start: 05-03-2024 End: 05-03-2024 ambulatory ALLI DOHERTYPKINS STUCCO WORKER - FLEXIBLE MACHINING SYSTEM MACHINIST Facility:[facility] Start: 05-03-2024 End: 05-03-2024 Patient encounter procedure ALLI DOHERTYPKINS STUCCO WORKER - FLEXIBLE MACHINING SYSTEM MACHINIST [facility] Start: 04-27-2024 End: 04-27-2024 ambulatory [facility] Facility[facility] Start: 04-25-2024 ambulatory [facility] Start: 04-21-2024 End: 04-21-2024 Telephone encounter Kapil Hicks STUCCO WORKER.FLEXIBLE MACHINING SYSTEM MACHINIST Work Phone: Pain Management Comment on above: Missed Appointment Start: 04-20-2024 End: 04-20-2024 Emergency department patient visit KAIN LEE [facility] Start: 04-12-2024 End: 04-13-2024 Telephone encounter Emily Desai RN [facility] Comment on above: Care Coordination Start: 04-11-2024 End: 04-11-2024 ambulatory [facility] Facility:[facility] Start: 04-08-2024 End: 04-08-2024 Refill Mireya Sweet PA-C Work Phone: [facility] Comment on above: Refill Request Start: 04-04-2024 ambulatory [facility] Start: 03-29-2024 End: 03-29-2024 ambulatory Lanette Harkins Facility:[facility] Start: 03-25-2024 End: 03-25-2024 Telephone encounter Cyndyra Bianchikatelyn STUCCO WORKER - FLEXIBLE MACHINING SYSTEM MACHINIST Work Phone: [facility] Comment on above: Care Coordination Start: 03-22-2024 End: 03-22-2024 ambulatory Lanette Harkins Facility:[facility] Start: 03-19-2024 End: 03-19-2024 ambulatory [facility] Facility:[facility] Start: 03-15-2024 End: 03-15-2024 Office outpatient new 45 minutes Cyndy Walton STUCCO WORKER - FLEXIBLE MACHINING SYSTEM MACHINIST Work Phone: [facility] Comment on above: Nausea and vomiting, unspecified vomiting type (Primary Dx); Epigastric pain Start: 03-15-2024 End: 03-15-2024 ambulatory [facility] Start: 02-23-2024 End: 02-23-2024 Orders Only Jennifer Munroe MD Work Phone: Pain Management Comment on above: Arthropathies in oth er specified diseases classified elsewhere, right knee (Primary Dx) Chronic right should er pain [M25.511, G89.29] Start: 02-15-2024 End: 02-15-2024 ambulatory Jennifer Munroe [...] Phone: Pain Management Start: 02-03-2024 End: 02-03-2024 [facility]O WORKER.FLEXIBLE MACHINING SYSTEM MACHINIST Work Phone: Pain [facility] Comment on above: Chronic pain syndrom e (Primary Dx); Primary osteoarthritis of right knee; Intervertebral disc disorder with radiculopathy of lumbar region; RSD (reflex sympathetic dystrophy); 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 [Z79.891 (ICD-10-CM)]; DDD (degenerative disc disease), lumbar; Other chronic pain; Radiculopathy, lumbar region [M54.16 (ICD-10-CM)]; Myofascial pain syndrome; Chronic right shoulder pain; Pain in right elbow Start: 02-02-2024 End: 02-06-2024 Outreach Lab KIM OLSON THANG-FLEXIBLE MACHINING SYSTEM MACHINIST [facility] Start: 02-02-2024 End: 02-06-2024 ambulatory Milena Barr APRN.FLEXIBLE MACHINING SYSTEM MACHINIST Work Phone: [facility] Comment on above: soapp Start: 02-02-2024 End: 02-03-2024 E-mail encounter from caregiver Milena Barr APRN.FLEXIBLE MACHINING SYSTEM MACHINIST Work Phone: [facility] Start: 12-30-2023 End: 12-30-2023 ambulatory CHARLETTE BUSTOS DO Facility:[facility] Start: 12-30-2023 End: 12-30-2023 Patient encounter procedure CHARLETTE BUSTOS DO [facility] Start: 12-08-2023 Refill Milena Barr APRN.FLEXIBLE MACHINING SYSTEM MACHINIST Work Phone: [facility] Comment on above: Refill Request Start: 12-07-2023 Telephone encounter Jennifer Munroe MD Work Phone: Pain Management Comment on above: Patient Update Start: 12-04-2023 End: 12-04-2023 Subsequent hospital visit by physician [facility] Comment on [...] Start: 11-04-2023 End: 11-04-2023 ambulatory RAHUL FREEMAN STUCCO WORKER-FLEXIBLE MACHINING SYSTEM MACHINIST Facility:[facility] Start: 11-04-2023 End: 11-04-2023 Patient encounter procedure RAHUL FREEMAN STUCCO WORKER-FLEXIBLE MACHINING SYSTEM MACHINIST [facility] Start: 10-01-2023 End: 10-01-2023 Telephone encounter Milena Barr STUCCO WORKER.FLEXIBLE MACHINING SYSTEM MACHINIST Work Phone: Pain [facility] [place] Comment on above: Appointment Primary osteoarthrit is of right knee (Primary Dx); Intervertebral disc disorder with radiculopathy of lumbar region; RSD (reflex sympathetic dystrophy); 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 [Z79.891 (ICD-10-CM)]; DDD (degenerative disc disease), lumbar; Radiculopathy, lumbar region [M54.16 (ICD-10-CM)]; Other chronic pain; Myofascial pain syndrome; Chronic right shoulder pain; Pain in right elbow; Reflex sympathetic dystrophy Start: 10-01-2023 End: 10-01-2023 Telemedicine consultation with patient Milena Barr STUCCO WORKER.FLEXIBLE MACHINING SYSTEM MACHINIST Work Phone: [facility] Start: 09-30-2023 Telephone encounter Milena maldonado STUCCO WORKER.FLEXIBLE MACHINING SYSTEM MACHINIST Work Phone: Pain [facility] Comment on above: virtual visit precha rting Start: 09-12-2023 End: 09-13-2023 ambulatory LANETTE HARKINS Facility:[facility] Start: 08-20-2023 End: 08-20-2023 ambulatory MIREYA SWEET Facility:[facility] Start: 08-20-2023 End: 08-20-2023 Patient encounter procedure Mireya Sweet PA-C Work Phone: Rehab Medicine [facility] Comment on above: Chronic pain of righ t knee (Primary Dx); Muscle spasticity; Abnormality of gait Start: 08-19-2023 End: 08-19-2023 Telephone encounter Milena Barr APRN.CNP Work Phone: Pain [facility] [place] Comment on above: Appointment Primary osteoarthrit is of right knee (Primary Dx); DDD (degenerative disc disease), lumbar; Intervertebral disc disorder with radiculopathy of lumbar region; Other chronic pain; RSD (reflex sympathetic dystrophy); 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 [Z79.891 (ICD-10-CM)];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 jt/bursa w/o us MR PAIN Start: 02-16-2024 End: 02-16-2024 Admission to same day surgery center 02/16/2024 9:00 AM EDT - 02/16/2024 9:15 AM EDT Surgery MR PAIN MANAGEMENT [address] [place] [address] Jennifer Munroe MD [address] [place] [address] ARTHROCENTESIS,ASPIRATION AND/OR INJECTION,MAJOR JOINT OR BURSA W/O [...] Encounter MR PAIN MANAGEMENT [address] [place] [address] Jennifer Munroe MD [address] [place] [address] Primary osteoarthritis of right knee [M17.11] MR PAIN MANAGEMENT Comment on above: Primary osteoarthritis of right knee [M1 7.11] Start: 02-03-2024 End: 02-03-2024 Follow-up encounter 02/03/2024 11:[address] 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 Work Phone: Comment on above: Expected: 12/03/2023, Expires: Start: 12-03-2023 End: 01-02-2025 XR Thoracic spine AP and Lateral XR THORACIC LIMITED 2V AP/LAT Radiology Routine Chronic pain syndrome Expected: 12/03/2023, Expires: 01/02/2025 [facility] Comment on above: Expected: 12/03/2023, Expires: Start: 12-03-2023 End: 12-03-2023 Patient encounter procedure 12/03/2023 11:00 AM EDT Office Visit Pain Management [address] [place] [address] Jennifer Munroe MD [address] [place] [address] Back pain Pain Management Comment on above: Back pain Start: 10-26-2023 End: 10-26-2023 Admission to same day surgery center 10/26/2023 1:45 PM EDT - 10/26/2023 2:00 PM EDT Surgery MR PAIN MANAGEMENT [address] [place] [address] Jennifer Munroe MD [address] [place] [address] ARTHROCENTESIS,ASPIRATION AND/OR INJECTION,MAJOR JOINT OR BURSA W/O [...] MR PAIN MANAGEMENT [address] [place] [address] Jennifer Munroe MD [address] [place] [address] Chronic right shoulder pain [M25.511, G89.29] MR PAIN MANAGEMENT Comment on above: Chronic right shoulder pain [M25.511, G8 9.29] Start: 10-20-2023 End: 10-20-2023 Admission to same day surgery center 10/20/2023 11:45 AM EDT - 10/20/2023 12:00 PM EDT Surgery MR PAIN MANAGEMENT [address] [place] [address] Jennifer Munroe MD [address] [place] [address] ARTHROCENTESIS,ASPIRATION AND/OR INJECTION,MAJOR JOINT OR BURSA W/O [...] Hospital Encounter MR PAIN MANAGEMENT [address] [place] [address] Jennifer Munroe MD [address] [place] [address] Primary osteoarthritis of right knee [M17.11] MR PAIN MANAGEMENT Comment on above: Primary osteoarthritis of right knee [M1 7.11] Start: 10-01-2023 End: 10-01-2023 Follow-up encounter 10/01/2023 10:[address] [facility] Pain [address] [address] Milena Barr, STUCCO WORKER.FLEXIBLE MACHINING SYSTEM MACHINIST [address] [facility] [place] [place] [address] 3 month follow up Pain [facility] Comment on above: 3 month follow up Start: 01-16-2023 Covid-19 Vaccine () Covid-19 Vaccine () [facility] Start: 01-16-2023 Influenza vaccination [facility] Start: 12-09-2022 End: 02-08-2023 TOXASSURE FLEX 23, URINE TOXASSURE FLEX 23, URINE Lab Routine Chronic pain syndrome Expected: 12/09/2022, Expires: 02/08/2023 [facility] Work Phone: Comment on above: Expected: 12/09/2022, Expires: 3 Start: 11-19-2022 End: 01-19-2023 TOXASSURE FLEX 23, URINE TOXASSURE FLEX 23, URINE Lab Routine Chronic pain syndrome Expected: 11/19/2022, Expires: 01/19/2023 [facility] Work Phone: Comment on above: Expected: 11/19/2022, Expires: 3 Start: 09-09-2022 End: 09-09-2022 Patient encounter procedure 09/09/2022 2:30 PM EDT Appointment [facility] [place] [address] [facility] [place] Start: 2022 COLOGUARD (FIT-DNA) COLOGUARD (FIT-DNA) [facility] Start: 2022 Colonoscopy COLONOSCOPY [facility] Start: 2022 COLORECTAL CANCER SCREENING COLORECTAL CANCER SCREENING [facility] Start: [address] COLONOGRAPHY [facility] Start: 2022 FECAL OCCULT BLOOD FECAL OCCULT BLOOD [facility] Start: 2022 Screening for malignant neoplasm of colon [facility] Start: 2022 SIGMOIDOSCOPY SIGMOIDOSCOPY [facility] Start: 01-16-2022 FLU (#1) FLU (#1) [facility] Start: 01-16-2022 Influenza vaccination [facility] Start: 12-16-2021 End: 02-15-2022 TOXICOLOGY SCRN W/CONF,URINE TOXICOLOGY SCRN W/CONF,UR INE Lab Routine 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 Expected: 12/16/2021 (Approximate), Expires: 02/15/2022 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 Work Phone: Comment on above: Expected: 12/12/2021, Expires: Start: 01-16-2021 Influenza vaccination INFLUENZA (#1) [facility] Start: 07-22-2017 Tetanus Diphtheria and Pertussis Vaccines (2 - Td or Tdap) Tetanus Diphtheria and Pertussis Vaccines (2 - Td or Tdap) [facility] Start: 02-29-2012 Lipid 1996 panel - Serum or Plasma Lipid Screening [facility] Start: 02-29-2012 LIPID SCREEN LIPID SCREEN [facility] Start: 02-29-1996 Hepatitis B Vaccine (1 of 3 - 19+ 3-dose series) Hepatitis B Vaccine (1 of 3 - 19+ 3-dose series) [facility] Start: 02-29-1996 Hepatitis B Vaccines (1 of 3 - 19+ 3-dose series) Hepatitis B Vaccines (1 of 3 - 19+ 3-dose series) [facility] Start: 02-29-1996 Urine microalbumin profile DTAP,TDAP,TD (1 - Tdap) [facility] Start: 1995 ANNUAL PCP TEAM CHRONIC DISEASE VISIT ANNUAL PCP TEAM CHRONIC DISEASE VISIT [facility] Start: 1995 Anxiety Screening Anxiety Screening [facility] Start: 1995 BP CONTROLLED (<130/80) BP CONTROLLED (<130/80) [facility] Start: 1995 HEPATITIS C SCREENING HEPATITIS C SCREENING [facility] Start: 1995 Hepatitis C screening Hepatitis C Screening [facility] Start: 1995 HIV SCREENING HIV SCREENING [facility] Start: 1995 HIV screening HIV Screening [facility] Start: 1993 MenB (1 of 2 - MenB 2-Dose Series Bexsero) MenB (1 of 2 - MenB 2-Dose Series Bexsero) [facility] Start: 1989 Depression Monitoring Depression Monitoring [facility] Start: 1982 COVID-19 VACCINE (1) COVID-19 VACCINE (1) [facility] Start: 1978 MMR (1 of 1 - Standard series) MMR (1 of 1 - Standard series) [facility] Start: 1978 MMR Vaccines (1 of 1 - Standard series) MMR Vaccines (1 of 1 - Standard series) [facility] Start: 1978 Varicella (1 of 2 - 2-dose childhood series) Varicella (1 of 2 - 2-dose childhood series) [facility] Start: 1977 COVID-19 (#1) COVID-19 (#1) [facility] Start: 1977 COVID-19 VACCINE (#1) COVID-19 VACCINE (#1) [facility] Start: 1977 HEPATITIS B (1 of 3 - 3-dose series) HEPATITIS B (1 of 3 - 3-dose series) [facility] Start: 1977 Hepatitis B Vaccine (1 of 3 - 3-dose series) Hepatitis B Vaccine (1 of 3 - 3-dose series) [facility] Start: 1977 HIV screening HIV Screening [facility] Start: 1977 Lipid panel Lipid Panel [facility] Start: 1977 Screening for malignant neoplasm of colon [facility] Arthrocentesis aspir &/inj major jt/bursa w/o us DRAIN/INJECT LARGE JOINT/BURSA Procedures Routine Chronic pain of right knee Ordered: 12/20/2021 [facility] Work Phone: Comment on above: Ordered: 12/20/2021 MR Lower Extremity [facility] End: 06-22-2023 MRI KNEE WO IVCON RT MRI KNEE WO IVCON RT Radiology Routine Chronic pain of right knee 1 Occurrences starting 05/23/2022 until 06/22/2023 [facility] Work Phone: Comment on above: 1 Occurrences starting 05/23/2022 until 06/22/2023 End: 06-23-2022 MRI KNEE WO IVCON RT [facility] Work Phone: Comment on above: 1 Occurrences starting 06/23/2022 until 06/23/2022 End: 11-16-2023 MRI SHOULDER WO IVCON RIGHT MRI SHOULDER WO IVCON RIGH T Radiology Routine Right shoulder pain, unspecified chronicity 1 Occurrences starting 10/17/2022 until 11/16/2023 [facility] Work Phone: Comment on above: 1 Occurrences starting 10/17/2022 until 11/16/2023 End: 11-05-2022 MRI SHOULDER WO IVCON RIGHT [facility] Work Phone: Comment on above: 1 Occurrences starting 11/05/2022 until 11/05/2022 Patient Education ED Rotator Cuff Tear Wo [facility] Work Phone: Patient referral [facility] Work Phone: XR Elbow - right AP and Lateral XR ELBOW GENERAL 2V AP/LAT RIGHT Radiology Routine Pain in right elbow 12/04/2023 10:[address] [facility] Work Phone: End: 03-24-2025 XR Knee - right 4 Views XR KNEE GENERAL 4V AP BOTH/PA BOTH/LAT/MERC RIGHT Radiology Routine Arthropathies in other specified diseases classified elsewhere, right knee 1 Occurrences starting 02/23/2024 until 03/24/2025 [facility] Work Phone: Comment on above: 1 Occurrences starting 02/23/2024 until 03/24/2025 End: 05-21-2023 XR KNEE GENERAL 4V AP BOTH/PA BOTH/LAT/MERC RIGHT XR KNEE GENERAL 4V AP BOTH/PA BOTH/LAT/MERC RIGHT Radiology Routine Chronic pain syndrome [G89.4 (ICD-10-CM)] 1 Occurrences starting 04/21/2022 until 05/21/2023 [facility] Work Phone: Comment on above: 1 Occurrences starting 04/21/2022 until 05/21/2023 XR Lumbar spine AP a nd Lateral XR LUMBAR LIMITED 2V AP/LAT Radiology Routine Chronic pain syndrome 12/04/2023 10:[address] [facility] Work Phone: End: 01-01-2025 XR Ribs - left 2 Views XR RIBS 2V AP/OBL LEFT Radiology Routine Chronic pain syndrome 1 Occurrences starting 12/03/2023 until 01/01/2025 [facility] Comment on above: 1 Occurrences starting 12/03/2023 until 01/01/2025 XR Ribs - left 2 Views XR RIBS 2 V AP/OBL LEFT Radiology Routine Chronic pain syndrome 12/04/2023 10:27 AM EDT [facility] End: 09-14-2023 XR SHOULDER GENERAL 3V OR MORE AP/TRUE AP/OTHER RIGHT XR SHOULDER GENERAL 3V OR MORE AP/TRUE AP/OTHER RIGHT Radiology Routine Chronic right shoulder pain 1 Occurrences starting 08/15/2022 until 09/14/2023 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 2019 Private Health Insurance [id number] 2018 Medicaid [id number] 2016 Private Health Insurance 106 [id number] 2015 Medicaid [id number]. [id number] 2015 Medicaid [id number] 1975 Unknown [id number] 2.16.840.1.279398.3.579.2. 732 1977 Unknown [id number] 2.16.840.1.881672.3.579.2. 479 1977 Unknown [id number] 2.16.840.1.461281.3.579.2. 479 1977 Unknown [id number] 2.16.840.1.797198.3.579.2. 627 1977 Unknown [id number] 2.16.840.1.447711.3.579.2. 627 1977 Unknown [id number] 2.16.840.1.941906.3.579.2. 627 1977 Unknown [id number] 2..840.1.795496.3.579.2. 62 1977 Unknown [id number] 2..840.1.637394.3.579.2. 627 1977 Unknown [id number] 2.840.1.308316.3.579.2. 627 1977 Unknown [id number] 2.16.840.1.930262.3.579.2. 627 1977 Unknown [id number] 2.840.1.022057.3.579.2. 62 1977 Unknown [id number] 2.16.840.1.586068.3.579.2. 627 1977 Unknown [id number] 2.16840.1.504261.3.579.2. 627 1977 Unknown [id number] 2.16.840.1.479945.3.579.2. 627 Unknown [facility] Unknown [id number] 2.16.840.1.683623.3.579.2. 462 Unknown [id number] 2.16.840.1.881159.3.579.2. 462 Unknown [id number] 2.16.840.1.104087.3.579.2. 462 Unknown [id number] 2.16.840.1.636847.3.579.2. 462 Unknown [id number] 2.16.840.1.649706.3.579.2. 462 Unknown [id number] 2.16.840.1.741529.3.579.2. 462 Unknown [id number] 2.16840.1.538911.3.579.2. 462 Unknown [id number] 2.840.1.802713.3.579.2. 462 Unknown [id number] 2.16840.1.322830.3.579.2. 462 Unknown [id number] 2.840.1.684097.3.579.2. 462 Unknown [id number] 2.840.1.207786.3.579.2. 462 Unknown [id number] 2.840.1.133225.3.579.2. 462 Unknown [id number] 2.840.1.826159.3.579.2. 462 Unknown [id number] 2.840.1.665285.3.579.2. 462 Unknown [id number] 2.840.1.372082.3.579.2. 462 Unknown [id number] 2.840.1.568359.3.579.2. 462 Unknown [id number] 2.840.1.415073.3.579.2. 462 Unknown [id number] 2.840.1.793162.3.579.2. 462 Unknown [id number] 2.840.1.768069.3.579.2. 462 Unknown [id number] 2.840.1.198471.3.579.2. 462 Unknown [id number] 2.16840.1.550206.3.579.2. 462 Unknown [id number] 2.840.1.612274.3.579.2. 462 Unknown [id number] 2.16.840.1.453691.3.579.2. 462 Social History Date Type Detail Facility Start: 09-02-2022 End: 10-17-2022 Former cigarette smoker Former cigarette smoker [facility] Work Phone: Comment on above: USE TO DRINK 12 OR M ORE DRINKS A DAY, BEER AND WHISKY (QUIT IN 2015); Start: 11-22-2018 End: 04-21-2022 Never smoked tobacco (finding) [facility] Start: 1975 Sex Assigned At Male A [facility] Start: 08-07-2021 End: 12-03-2024 Alcohol intake Current drinker of alcohol (finding) [facility] Start: 09-27-2015 History SDOH Alcohol Comment weekly [facility] Start: 1975 Sex Assigned At Not on file [facility] Start: 07-28-2021 End: 04-21-2022 Exposure to SARS-CoV-2 (event) Not sure [facility] Start: 09-18-2020 Tobacco smoking stat us MTIS Unknown if ever smoked [facility] Work Phone: Start: 09-18-2020 Non-smoker [facility] Start: 10-19-2017 End: 04-21-2022 Tobacco use and exposure Smokeless tobacco non-user [facility] Start: 04-21-2022 End: 05-23-2022 Alcohol intake Ex-drinker (finding) [facility] Start: 09-02-2022 End: 10-17-2022 Tobacco use panel [facility] Start: 04-18-2012 Adolescent depressio n screening assessment 0 [facility] Start: 09-02-2022 Alcohol Comment sober for 10 years A [facility] Start: 05-31-2023 Alcohol Comment [facility] Has the electric, [employer] s, oil, or water company threatened to shut off services in your home in past 12Mo No [facility] (I/We) worried wheth er (my/our) food would run out before (I/we) got money to buy more. Never true [facility] Start: 11-10-2018 End: 12-16-2021 Sex Male (finding) [facility] Sexual Orientation Autumn Garrett Start: 10-03-2024 End: 02-18-2025 Tobacco smoking status NHIS Ex-smoker (finding) [facility] NEGATED: Highlighted rowStart: NINF History of tobacco use Passive smoker [facility] Medical Equipment Procedure Code Equipment Code Equipment [...] FDA Start: 04-25-2019 Anchr Sut 4.75mm 2 Fibertak - [id number] Start: 01-09-2023 SWIVELOCK,4.75 DOUBLE LOCK FDA [...] 09/13/2023 3:04 PM Candida Hi RN No [facility] 09-13-2023 Are you blind, or do you have serious difficulty seeing, even when wearing glasses No 09/13/2023 3:04 PM Candida Hi RN [facility] 09-13-2023 Do you have serious difficulty walking or climbing stairs No 09/13/2023 3:04 PM Candida Hi RN [facility] 09-13-2023 Do you have difficul ty dressing or bathing No 09/13/2023 3:04 PM Candida Hi RN [facility] 09-13-2023 Because of a physica l, mental, or emotional condition, do you have difficulty doing errands alone such as visiting a physician's office or shopping No 09/13/2023 3:04 PM Candida Hi RN [facility] Mental Status Date Assessment Result Facility 09-13-2023 Because of a physica l, mental, or emotional condition, do you have serious difficulty concentrating, remembering, or making decisions No 09/13/2023 3:04 PM Candida Hi RN No [facility] Clinical Notes 10-20-2017 to 02-22-2025 Note Date & Type Note Facility 02-22-2025 Note HNO ID: [id number] Author: PUNEET MCBRIDE MD Service: ? Author Type: Physician Type: Progress Notes Filed: 02/22/2025 17:16 Note Text: PROCEDURE: IV Lidocaine infusion Therapy DATE OF SERVICE: February 22, 2025 PREPROCEDURE DIAGNOSES: Chronic pain syndrome Chronic pain [...] at the beginning of the infusion was 9 on a scale from 0 to 10. The patient's pain scale was monitored for the next 15-minute increments. VS were monitored throughout. A total of 107 mg ofLidocaine was administered over 5 minutes followed by a total of 213 milligrams of lidocaine over the next 1 hour The patient was monitored very closely during the entire infusion procedure today. The patient's vital signs remained stable throughout the postoperative period. They were given written instructions to follow up at [facility] in the next 4 to 6 weeks for further plan of care and overall evaluation. COMMENTS: Patient tolerated the infusion without any complications. [facility] 02-22-2025 Note HNO ID: [id number] Author: VERNON MOSES RN Service: ? Author Type: Registered Nurse Type: Progress Notes Filed: 02/22/2025 15:27 Note Text: 1500-Infusion complete. Pt discharged and wheeled to car with dad to drive pt home. Pain level 5/10. Vernon Moses RN [facility] 02-22-2025 Note HNO ID: [id number] Author: VERNON MOSES RN Service: ? Author Type: Registered Nurse Type: Progress Notes Filed: 02/22/2025 12:49 Note Text: Pt presents for repeat Lidocaineinfusion and states 30% benefit for 1 weeks from last infusion. NPO x 6 hours. Pt has dad available to drive pt home post infusion. Pain level 9/10. Vernon Moses RN [facility] 02-18-2025 Discharge summary [facility] 02-18-2025 Discharge summary Note Date/Time February 18, 2025 8:56pm [facility] Medical Records Department [address] [place] [address] Emergency Department Summary 02/18/25 MR#: [id number] Acct: [id number] Name: TATE BALTAZAR Rep #:[id number] : 1975 49 From: Hunter Rizo MD PCP: Dr. Fred Peters, DO Status:DEP ER Location: ED HPI History of Present Illness HPI Narrative: Acute right shoulder pain. History of prior rotator cuff surgery. He reinjuredit and tore the repaired rotator cuff and the labrum. He is currently seeing orthopedics he is scheduled for surgery on March 08. 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 He is taking Tylenol as controlling his pain. He denies any recent injury. He denies any fever or swelling to his shoulder. Chief Complaint: Upper Extremity Injury Informant: patient and family Occured/Mechanism Mechanism/Context: No injury and No blunt trauma Onset/Context/Timing Onset: Weeks Context: Gradual Onset Timing: Continuous Quality of Pain: Sharp Current Severity: Moderate Maximum Severity: Moderate Associated Symptoms Associated Symptoms: Negative for Parasthesia, Weakness or Loss of Funtion Narrative Narrative: 49-year-old male who has a known shoulder rotator cuff tear plus a labrum tear seen on a recent MRI. Upcoming orthopedic surgery with Dr. Fred Huber. He had a prior right shoulder repair in the past from a rotator cuff. Basically heis requesting some type of pain control. He has had prior strokes and intracranial bleeds and he states Tylenol is not cutting the pain. Prior similar symptoms: Yes Recent Illness/Hospitalization: No PFSH PFSH Medical History Right rotator cuff tear [...] Restless legs Injury of back Stroke/cerebrovascular accident Home Medications ?Medication ?Instructions ?Recorded ?Last Taken ?Type pantoprazole 40 mg tablet,delayed 40 mg PO DAILY 09/18 Unknown History release tizanidine 4 mg capsule 8 mg PO QHS 09/18/20 Unknown History bupropion HCl 300 mg 24 hr tablet, 300 mg PO QDAY 02/15 09/08 Unknown History extended release cyclobenzaprine 5 mg tablet 5 mg PO TID PRN 02/29/24 U nknown History duloxetine 60 mg capsule,delayed 60 mg PO QDAY 4 Unknown History release fexofenadine 180 mg tablet 180 mg PO QDAY 02/29/24 Unk nown History gabapentin 100 mg tablet 600 mg PO TID 02/29/24 Unkno wn History mirabegron 25 mg tablet,extended 25 mg PO QDAY 4 Unknown History release 24 hr (Myrbetriq) potassium chloride 20 mEq 40 meq PO DAILY 02/29/24 Unk nown History tablet,extended release potassium chloride 20 mEq 20 meq PO BID 02/29/24 Unkno wn History tablet,extended release(part/cryst) rimegepant 75 mg disintegrating 75 mg PO QDAY PRN 02/15 09/08 Unknown History tablet (Nurtec ODT) sucralfate 1 gram tablet 1 g PO 4X/DAY 02/29/24 Unkno wn History tamsulosin 0.4 mg capsule 0.4 mg PO QDAY 02/29/24 Unkn own History valsartan 160 mg tablet 160 mg PO QDAY 02/29/24 Unkn own History verapamil 120 mg tablet,extended 240 mg PO QHS 4 Unknown History release zonisamide 50 mg capsule 50 mg PO QHS 02/29/24 Unknow n History oxycodone-acetaminophen 5 mg-325 1 tab PO Q8H PRN pain 7 days #15 02/18/25 Unknown Rx mg tablet (Percocet) tabs Allergy/AdvReac Type Severity Reaction Status Date / Time fentanyl AdvReac Other Verified 02/18/25 20:05 hydrocodone (From Vicodin) AdvReac Other Verified 02/18/25 20:05 Surgical History S/P rotator cuff repair Hx of cardiac catheterization Hx of colonoscopy History of esophagogastroduodenoscopy (EGD) Hx of vasectomy Hx of arthroscopic knee surgery Hx of tonsillectomy Hx of appendectomy Hx of shoulder surgery Social History household members: spouse and family Smoking Status: Former smoker alcohol intake: current alcohol intake frequency: holidays/special occasions only ROS ROS ED ROS Narrative Denies recent illness. Constitutional Constitutional ED: Denies chills or fever(s) Eyes Eyes: Denies blurry vision ENT ENT ED: Denies ear pain Cardiovascular Cardiovascular: Denies chest pain Respiratory/Chest Respiratory/Chest: Denies cough or dyspnea Gastrointestinal Gastrointestinal: Denies abdominal pain Genitourinary Genitourinary ED: Denies dysuria or hematuria Musculoskeletal Musculoskeletal: Denies back pain Integumentary Denies abscess or Abrasions Neurologic Neurologic: Denies headache(s) Psychiatric Psychiatric: Denies anxiety or depression Endocrine Endocrinology: Denies cold intolerance Hematologic/Lymphatic Hematologic/Lymphatic: Denies easy bleeding, easy bruising or lymphadenopathy Allergic/Immunologic Allergic/Immunologic ED: Denies mouth swelling, tongue swelling or urticaria EXAM Physical Exam Narrative Exam Narrative: 49-year-old male sitting upright in bed. Vital signs are stable afebrile. No acute distress. Family present. HEENT exam pupils round reactive light. No facial droop. Normal speech. No trauma. Neck nontender. No lymphadenopathy. Lungs clear to auscultation. Heart regular rhythm rate about 70 no murmur. Chest wall nontender. Abdomen soft nontender. Left upper and both lower extremities he has normal movement. Right shoulder he cannot lift it or do Abduction. Consistent with a rotator cuff tear. Shoulder itself is not significantly tender to palpation. There is no swelling or redness. He is ableto flex at the elbow. Flex at the wrist. He is a strong radial pulse. 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 Neurologically he is awake and alert. Answering questions following commands. Const Vital Signs: 02/18/25 20:05 Temperature 97.5 F L Temperature Source Temporal Pulse Rate 68 Respiratory Rate 18 Blood Pressure 144/102 H Blood Pressure Mean 116 Pulse Ox 98 Oxygen Delivery Method Room Air MDM MDM MDM Narrative Medical decision making narrative: 49-year-old male with a recurrent rotator cuff tear with labrum tear on MRI fromNovember. His upcoming rotator cuff surgical repair for this coming February. He isrequesting something for pain. Patient be given a Maynard here. Written for Percocet for pain. Outpatient follow-up with his orthopedic physician. History & Record Review Discussion w/independent historian: Patient Additional record(s) reviewed:: Prior inpatient record, Prior outpatient record,Prior ED visit and Prior labs Discharge Plan Triage Chief Complaint: Upper Extremity Injury ED Provider: Hunter Rizo Dx/Rx/DC Orders Clinical Impression: Acute shoulder pain, Torn rotator cuff, Tear of left glenoid labrum, History ofmultiple strokes Instructions: ED Rotator Cuff Tear Prescriptions: New oxycodone-acetaminophen [Percocet] 5-325 mg tablet 1 tab PO Q8H PRN (Reason: pain) 7 Days Qty: 15 0RF No Action bupropion HCl 300 mg tablet extended release 24 hr 300 mg PO QDAY valsartan 160 mg tablet 160 mg PO QDAY duloxetine 60 mg capsule,delayed release(DR/EC) 60 mg PO QDAY potassium chloride 20 mEq tablet,ER particles/crystals 20 meq PO BID Nurtec ODT 75 mg tablet,disintegrating 75 mg PO QDAY PRN cyclobenzaprine 5 mg tablet 5 mg PO TID PRN zonisamide 50 mg capsule 50 mg PO QHS fexofenadine 180 mg tablet 180 mg PO QDAY mirabegron [Myrbetriq] 25 mg tablet extended release 24 hr 25 mg PO QDAY tamsulosin 0.4 mg capsule 0.4 mg PO QDAY sucralfate 1 gram tablet 1 g PO 4X/DAY pantoprazole 40 mg Tablet,Delayed Release (Dr/Ec) 40 mg PO DAILY tizanidine 4 mg Capsule 8 mg PO QHS potassium chloride 20 mEq tablet extended release 40 meq PO DAILY gabapentin 100 mg tablet 600 mg PO TID verapamil 120 mg tablet extended release 240 mg PO QHS Primary Care Provider: Fred Peters Referrals: Lanette Harkins DO [Non-Staff, Family Practice] Fred Huber MD [Med Staff - Active Staff, Orthopedics] - As Needed Activity Restrictions/Additional Instructions: Ice to shoulder. Percocet as needed for pain. Follow-up with your orthopedic physician as needed. Print Language: [place] Disposition Disposition: Home, Self Care What to do if you have Problems For any increased pain, shortness of breath, bleeding, nausea or vomiting, chestpain, or any unexpected problems, contact your Primary Care Provider. Call [facility] ([phone]) or report to the closest Emergency Room. Call 911 if necessary. 02/18/252212 <Electronically signed by Hunter Rizo MD> Cosigner Signature (if applicable): CC: Dr. Fred Peters, DO ~ Signed [facility] Work Phone: 1(187) 787-621909-25-2025 [facility] [address] [place] [address] [address] [place] [address] OFFICE VISIT Date of Service: 02/09/25 MR#: [id number] Acct: [id number] Name: TATE BALTAZAR Rep #: [id number] : 1975 Provider: Dr. Raudel Huber MD Age/Sex: 49/M Location: [facility] Status: Signed Intake [...] mg capsule,delayed 60 mg PO QDAY 4 02/09/25 History release fexofenadine 180 mg tablet 180 mg PO QDAY 02/29/24 History gabapentin 100 mg tablet 600 mg PO TID 02/29/2402/09 History mirabegron 25 mg tablet,extended 25 mg PO QDAY 4 02/09/25 History release 24 hr (Myrbetriq) potassium [...] 120 mg tablet,extended 240 mg PO QHS 02/09/25 History release zonisamide 50 mg capsule [...] decisions made by me, Dr. Manfred MD 02/09/25924. Part of today?s visit was [...] or change to the contour Supplemental Info [facility] Imaging Services [address] [place] [address] Upper Ext Joint Only(Routine) MR#: [id number] Acct: [id number] Name: TATE BALTAZAR Rep #: [id number] : 1975 M 49 From: Omega Russo MD PCP: Dr. Lanette Harkins, DO Status: REG CLI Study: Upper Ext Joint Only(Routine) Date of Exam: 11/15/24 Exam# [id number] Ordering Dr: Fred Huber MD PROCEDURE: UPPER [...] for surgery. There does not appear to robyn change to the biceps tendon this appears [...] rotation strength 5. No crepitus 02/09/25 1019 n MD> Date _ Fred Mollison MD Cosigner Signature: Date (if applicable) CC: ~ [facility] [id number] [facility] [address] [place] [address] OFFICE VISIT Date of Service: 12/05/24 MR#: [id number] Acct: [id number] Name: TATE BALTAZAR Rep #: [id number] : 1975 Provider: Dr. Raudel Huber MD Age/Sex: 49/M Location: [facility] Status: Signed Intake [...] decisions made by me, Dr. Manfred MD 12/05/24 0846. Part of today?s visit was documented by [ ], acting as scribe. TATE BALTAZAR is a 49 year old M here today for FU R knee. Was in ED over weekend. This was in [facility] in [place]. He was just getting off the couch [...] knee joint fluid no fracture or malalignment alsoon x-ray ofthe pelvis no acute fracture or malalignment no notes from the date of the visitjust thex-ray reports Supplemental Info [facility] Imaging Services [address] [place] [address] Lower Ext Joint Only (Routine) MR#: [id number] Acct: [id number] Name: TATE BALTAZAR Rep #: [id number] : 1975 M 49 From: Mateohuseyin Canada DO PCP: Dr. Lanette Harkins DO Status: REG CLI Study: Lower Ext Joint Only (Routine) Date of Exam: 03/19/24 Exam# [id number] Ordering Dr: Fred Huber MD EXAM: MR [...] lateral retropatellar articular chondromalacia. Electronically Signed: Mateo Donnelly KirstinDO moni at 13:58 EST , xr 4 view [...] and a period of relative rest followed bygentle range of motion discontinue the crutches as [...] Left Knee Patella Translation: 1 12/05/24 1049 n > Date _ Fred Huber MD Cosigner Signature: Date (if applicable) CC: ~ [facility]07-21-2025 Progress note Author Fred Huber [facility] Note Date/Time December 05, 2024 10:4 9am [facility] [address] [place] [address] OFFICE VISIT Date of Service: 12/05/24 MR#: [id number] Acct: [id number] Name: TATE BALTAZAR MEIR Rep #: [id number] : 1975 Provider: Dr. Raudel Huber MD Age/Sex: 49/M Location: [facility] Status: Signed Intake [...] 25 mg tablet,extended 25 mg PO QDAY 12/05/24 History release 24 hr (Myrbetriq) potassium [...] in ED over weekend. This was in [facility] in [place]. He was just getting off the couch [...] the visitjust the x-ray reports Supplemental Info [facility] Imaging Services [address] [place] [id number] Lower Ext Joint Only (Routine) MR#: [id number] Acct: [id number] Name: TATE BALTAZAR Rep #: [id number] : 1975 M 49 From: Mateo Canada DO PCP: Dr. Lanette Harkins DO Status: REG CLI Study: Lower Ext Joint Only (Routine) Date of Exam: 03/19/24 Exam# [id number] Ordering Dr: Fred Huber MD EXAM: MR [...] cuellar MD> Date _ Fred Huber MD Cosignkatelyn Signature: Date (if applicable) CC: ~ [facility] Work Phone: 1(649) 741-655107-18-2025 History of Present illness Narrative* Puneet Mcbride [...] given written instructions to follow up at [facility] in the next 4 to 6 weeks for further plan of care and overall evaluation. COMMENTS: Patient tolerated the infusion without any complications. * Edelmira Perera RN - 11/30/2024 4:12 PM EDTSummary: post infusion note Infusion complete. 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 Pt reports that his pain is [...] procedure. Edelmira Perera RN [facility] NoteHNO ID: [id number] Author: PUNEET MCBRIDE MD Service: ? Author [...] given written instructions to follow up at [facility] in the next 4 to 6 weeks for further plan of care and overall evaluation. COMMENTS: Patient tolerated the infusion without any complications.[facility]07-16-2025 NoteHNO ID: [id number] Author: EDELMIRA PERERA RN Service: ? Author Type: Registered Nurse Type: Progress Notes Filed: 11/30/2024 16:13 Note Text: Summary: post infusion note Infusion complete. 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 Pt reports that his pain is 5/10. Edelmira Perera RN November 30, 2024 4:13 [facility]07-16-2025 NoteHNO ID: [id number] Author: EDELMIRA PERERA RN Service: ? Author [...] okay to proceed with procedure. Edelmira Perera, [facility]07-07-2025 [facility] [address] [place] [address] OFFICE VISIT Date of Service: 11/21/24 MR#: [id number] Acct: [id number] Name: TATE BALTAZAR Rep #: [id number] : 1975 Provider: Dr. Raudel Huber MD Age/Sex: 49/M Location: [facility] Status: Signed Intake [...] mg tablet,extended 25 mg PO QDAY 4 11/21/24 History release 24 hr (Myrbetriq) potassium [...] unsure exactly when that was. Supplemental Info [facility] Imaging Services [address] [place], [place] [address] Upper Ext Joint Only(Routine) MR#: [id number] Acct: [id number] Name: TATE BALTAZAR Rep #: [id number] : 1975 M 49 From: Omega Russo MD PCP: Dr. Lanette Harkins, DO Status: REG CLI Study: Upper Ext Joint Only(Routine) Date of Exam: 11/15/24 Exam# [id number] Ordering Dr: Fred Huber MD PROCEDURE: UPPER [...] 11/21/24 1158 n MD> Date _ Fred Huber MD Cosigner Signature: Date (if applicable) CC: ~ [place] [address]-30-2025 Note. MICRO - Microbiology PROCEDURE: Culture Wound Aerobic with Gram Stain [*1] SOURCE: Drainage BODY SITE: Scrotum COLLECTED DATE/TIME: 11/10/2024 13:07 EDT RECEIVED DATE/TIME: 11/11/2024 15:17 EDT START DATE/TIME: 11/11/2024 15:18 EDT FREE TEXT SOURCE: FINAL REPORTS Final Report [] Verified Date/Time/Personnel: 11/14/2024 07:32 EDT Few normal skin yolanda present. Sensitivity [...] Locations *1: This test was performed at: [address], [facility] , [facility]06-20-2025 NoteHNO ID: [id number] Author: PUNEET MCBRIDE MD Service: ? Author [...] given written instructions to follow up at [facility] in the next 4 to 6 weeks for further plan of care and overall evaluation. COMMENTS: Patient tolerated the infusion without any complications.[facility]06-20-2025 History of Present illness Narrative* Puneet [...] given written instructions to follow up at [facility] in the next 4 to 6 weeks for further plan of care and overall evaluation. COMMENTS: Patient tolerated the infusion without any complications. * Edelmira Perera RN - 11/02/2024 3:59 PM EDT Lidocaine infusion complete. Pt reports pain 7/10. 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 Edelmira Perera RN * Edelmira Perera RN - 11/02/2024 1:33 PM EDT Pt here today for first Lidocaine. Pt reports pain 8/10. Pt NPO x 6 hours. Pt Robbi magallanes, available on discharge for ride home. Edelmira Perera RN documented in [facility]06-[facility]-2025 NoteHNO ID: [id number] Author: EDELMIRA PERERA RN Service: ? Author Type: Registered Nurse Type: Progress Notes Filed: 11/04/2024 07:55 Note Text: Lidocaine infusion complete. Pt reports pain 7/10. 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 Edelmira Perera [facility]06-18-2025 NoteHNO ID: [id number] Author: EDELMIRA PERERA RN Service: ? Author Type: Registered Nurse Type: Progress Notes Filed: 11/04/2024 07:55 Note Text: Pt here today for first Lidocaine. Pt reports pain 8/10. Pt NPO x 6 hours. Pt Robbi magallanes, available on discharge for ride home. Edelmira Perera [facility]06-10-2025 Evaluation note* Diagnosis Onset Date Resolution Status Admit Date Primary osteoarthritis, righ t shoulder acute October 25, 2024 10:32am Right shoulder pain acute October 25, 2024 10:32am Osteoarthritis of right knee acute October 27, 2024 10:19am Right knee pain acute October 10:19am Primary osteoarthritis, righ t shoulder acute November 21, 2024 1 1:23am Right rotator cuff tear acute [facility] 2024 11:23am Right shoulder pain acute November 21, 2024 11:23am S/P rotator cuff repair acute J [facility] 2024 11:23am Osteoarthritis of right knee acute December 05, 2024 9:58am Right rotator cuff tear acute S [facility] 2024 9:54am S/P rotator cuff repair acute S [facility] 2024 9:54am [facility] Work Phone: 1(981) 546-327006-04-2025 Evaluation note* Diagnosis Onset Date Resolution Status [...] 1 1:23am Right rotator cuff tear acute [facility] 2024 11:23am Right shoulder pain acute November 21, 2024 11:23am S/P rotator cuff repair acute [facility] 2024 11:23am Osteoarthritis of right knee acute December 05, 2024 9:58am Right rotator cuff tear acute S [facility] 2024 9:54am S/P rotator cuff repair acute [facility] 2024 9:54am [facility] Work Phone: 1(776) 184-397106-04-2025 [facility] [address] [place] [address] OFFICE VISIT Date of Service: 10/19/24 MR#: [id number] Acct: [id number] Name: TATE BALTAZAR Rep #: [id number] : 1975 Provider: Dr. Raudel Huber MD Age/Sex: 49/M Location: [facility] Status: Signed Intake [...] 160 mg tablet 160 mg PO QDAY 02/29/240 09/09 History verapamil 120 mg tablet,extended 240 mg PO QHS 4 10/19/24 History release zonisamide 50 mg capsule 50 mg PO QHS 02/29/24 History Have you fallen in the past year?: No [facility] Medical History Right shoulder pain Osteoarthritis of [...] Performing Provider: Fred Huber MD Performing Location: [facility] Administered by: Fred Huber MD on 10/19/24 11:20 Dose Route Admin Location Dispensed Lot Number Expiration Date [facility] Front Of House Manager 20 mg intra-articular Right knee 2 mL [id number] 04/09/25 [address]-5 [facility] Coding Level of Care Code [...] ecchymosis and No swelling 10/19/24 1128 n > Date _ Fred Huber MD Cosign Signature: Date (if applicable) CC: ~ [facility]05-22-2025 Telephone encounter Note* Telephone Encounter - Azeb Snow - 10/06/2024 4:21 PM EDT I left a message to schedule IV Infusions on 11/02/24 1300 and 11/30 1300. Azeb Snow October 06, 2024 4:22 PM [facility]05-22-2025 Miscellaneous Notes* Telephone Encounter - Barbara Snowelijah Ochoa - 10/06/2024 4:21 PM EDT I left a message to schedule IV Infusions on 11/02/24 1300 and 11/30 1300. Azeb Snow October 06, 2024 4:22 PM documented in this encounterFulton [facility] Center05-22-2025 NoteHNO ID: [id number] Author: MARIELY ARGUETA LPN Service: ? Author Type: LICENSED NURSE Type: Progress Notes Filed: 10/06/2024 15:19 Note Text: Neck - Squeezing pain. Had concussion in [facility] ([facility]) - took sinus meds with night meds [...] out for [facility]05-22-2025 NoteHNO ID: [id number] Author: LEEANN OWENS PA-C Service: ? Author Type: Physician Fall Intern Type: Progress Notes Filed: 10/06/2024 15:19 Note [...] Unknown Doxycycline Hives Hydrocodone Other: See Comments Amite Juice Unknown Amite Oil Hives, Other: See Comments Pseudoephedrine Unknown [...] by mouth twice daily. (more content not included)...[facility]05-06-2025 Evaluation note* Diagnosis Onset Date Resolution [...] 1 1:23am Right rotator cuff tear acute 2024 11:23am Right shoulder pain acute November 21, 2024 11:23am S/P rotator cuff repair acute 2024 11:23am [facility] Work Phone: 1(135) 662-895305-06-2025 Evaluation note* Diagnosis Onset Date Resolution Status [...] 1 1:23am Right rotator cuff tear acute 2024 11:23am Right shoulder pain acute November 21, 2024 11:23am S/P rotator cuff repair acute 2024 11:23am Osteoarthritis of right knee acute December 05, 2024 9:58am [facility] Work Phone: 1(351) 838-354904-11-2025 Telephone encounter Note* Telephone Encounter - Rachel Arguelles PA-C - 08/26/2024 10:37 AM EDT The following approved medication requests have been transmitted electronically. Requested Prescriptions Signed Prescriptions Disp Refills cyclobenzaprine (FLEXERIL) 5 mg tablet 270 tablet 4 Sig: TAKE 1 TABLET BY MOUTH THREE TIMES DAILY NEEDED Authorizing Provider: RACHEL ARGUELLES PA-C [facility]04-11-2025 Miscellaneous Notes* Telephone Encounter - Rachel Arguelles PA-C - 08/26/2024 10:37 AM EDT The following approved medication requests have been transmitted electronically. Requested Prescriptions Signed Prescriptions Disp Refills cyclobenzaprine (FLEXERIL) 5 mg tablet 270 tablet 4 Sig: TAKE 1 TABLET BY MOUTH THREE TIMES DAILY NEEDED Authorizing Provider: RACHEL ARGUELLES PA-C documented in this encounterFulton County Health Center03-04-2025 Evaluation note* Diagnosis Onset Date Resolution Status [...] shoulder pain acute October 25, 2024 10:32am [facility] Work Phone: 1(888) 503-245603-04-2025 Evaluation note* Diagnosis Onset Date Resolution Status [...] shoulder pain acute October 25, 2024 10:32am [facility] Work Phone: 1([phone]) 318-375003-04-2025 Evaluation note* Diagnosis Onset Date Resolution Status [...] 10:19am Right knee pain acute October 10:19am [facility] Work Phone: 1(780) 924-258403-04-2025 Evaluation note* Diagnosis Onset Date Resolution Status [...] knee pain acute October 19, 2024 10:56am [facility] Work Phone: 1([phone]) [phone] Telephone encounter Note* Telephone Encounter - Rabia Rangel - 07/01/2024 4:10 PM EST [facility] No-Show Documentation Tate burger showed for an appointment on 07/01/2024 with Leeann Owens PA-C. at [facility]. The patient was was scheduled for a [...] Rabia Rangel July 01, 2024 4:13 PM [facility]02-14-2025 Miscellaneous Notes* Telephone Encounter - Rabia Rangel - 07/01/2024 4:10 PM EST [employer] No-Show Documentation Tate Baltazar no showed for an appointment on 07/01/2024 with Leeann Owens PA-C. at [facility]. The patient was was scheduled for a [...] Rabia Rangel July 01, 2024 4:13 PM documented in this encounterFulton County Health Center01-07-2025 Note* Exam Date Time Procedure Performing Provider Status 05/24/24 11:06 AM US Abdomen Complete JASON VERMA DO ; Auth (Verified) [id number] ORIGINAL EXAMINATION: COMPLETE ABDOMINAL ULTRASOUND 05/24/2024 11:07 [...] 05/24/2024 11:52:04 AM Ordering Provider: ALLI DACOSTA [facility]12-30-2024 Telephone encounter Note* Telephone Encounter - Francisco Young PA-C - 05/16/2024 9:08 AM EST The following approved medication requests have been transmitted electronically. Requested Prescriptions Pending Prescriptions Disp Refills gabapentin (NEURONTIN) 600 mg tablet [Pharmacy Med Name: gabapentin 600 mg tablet] 90 tablet 2 Sig: Take 1 tablet by mouth three times a day for 90 days. Francisco Young PA-C [facility]12-30-2024 Miscellaneous Notes* Telephone Encounter - Francisco Young [...] developed and its performance characteristics determined by [facility]'s Lanette Bill [facility] [place] ([facility]). It has not been cleared or approved by the FDA. -[facility] is regulated under CLIA as qualified to [...] Urine pH, Pain Saucedo 7.5 10/19/2017 Specific Saxon,Ur Pain Saucedo 1.007 10/19/2017 Oxidants,Ur <38 10/19/2017 @FLOW([id number])@ Lab Results Component Value Date SUMM FINAL [...] is an expected metabolite of dextromethorphan, an yoks-jjf-regzcdo or prescription cough suppressant. Dextrorphan cannot be distinguished from the scheduled prescription medication levorphanol by the method used for analysis. Verapamil PRESENT Test Result Flag Units Ref Range Creatinine 130 mg/dL >=20 Declared Medications: Medication list was not provided. For clinical consultation, please call . Last Opioid agreement effective date: 04/21/2022 Please review and advise. Mireya Werner RN documented in this encounterFulton County Health Center12-30-2024 Telephone encounter Note * Telephone Encounter - [...] developed and its performance characteristics determined by [facility]'s Lanette Bill [facility] [place] ([facility]). It has not been cleared or approved by the FDA. [facility] is regulated under CLIA as qualified to [...] Quant, Urine 29 (H) 10/19/2017 Creatinine,Ur Pain Sauceod 50.9 10/19/2017 Urine pH, Pain Saucedo 7.5 10/19/2017 Specific Saxon,Ur Pain Saucedo 1.007 10/19/2017 Oxidants,Ur <38 10/19/2017 @FLOW([id number])@ Lab Results Component Value Date SUMM FINAL [...] is an expected metabolite of dextromethorphan, an besm-huo-tkdyzwy or prescription cough suppressant. Dextrorphan cannot be distinguished from the scheduled prescription medication levorphanol by the method used for analysis. Verapamil PRESENT Test Result Flag Units Ref Range Creatinine 130 mg/dL >=20 Declared Medications: Medication list was not provided. For clinical consultation, please call . Last Opioid agreement effective date: 04/21/2022 Please review and advise. Mireya Werner RN [facility]12-30-2024 [id number] (AGENT OF COVID-19) RNA: Not detected INFLUENZA A RNA: Not detected INFLUENZA B RNA: Not detected RESPIRATORY SYNCYTIAL VIRUS (RSV) RNA: Not detectedMount Desert Island HospitalComment on above:Performed By: #### [id number] #### [facility] CLIA [id number] [address] [place] [id number] [place], [place] 7894812-05-2024 Telephone encounter Note* Telephone Encounter - Rabia Rangel - 04/21/2024 4:09 PM EST [employer] No-Show Documentation Tate Baltazar no showed for an appointment on 04/21/2024 with Leeann Owens PA-C. at [facility]. The patient was was scheduled for a [...] Third or Fourth No Show? Josey Rangel April 21, 2024 4:09 PM [facility]12-05-2024 Miscellaneous Notes* Telephone Encounter - Rabia Rangel - 04/21/2024 4:09 PM EST [employer] No-Show Documentation Tate Baltazar no showed for an appointment on 04/21/2024 with Leeann Owens PA-C. at [facility]. The patient was was scheduled for a [...] 21, 2024 4:09 PM documented in this encounterFulton County Health Center12-05-2024 Telephone encounter Note * Telephone Encounter - Reva Guadalupe MA - 04/21/2024 9:25 AM EST Pt is sx for EGD w dr. Ochoa on 09/08/2024 at [facility] w the arrival time of 1:45 pm EPIC schedule updated Order submitted Open Case request submitted Case # [id number] - Rx called into pharmacy @ Endo packet mailed to patient Prep sent via [employer] if pt acct active Pt is aware they will need a powder truck driver to take them home from procedure. Must be family member or friend. They cannot use any ride programs. Ex: Uber, Lyft, SCAT, bus, etc...) [facility] [id number] Miscellaneous Notes* Telephone Encounter - Reva Guadalupe MA - 04/21/2024 9:25 AM EST Pt is sx for EGD w dr. Ochoa on 09/08/2024 at [facility] w the arrival time of 1:45 pm EPIC schedule updated Order submitted Open Case request submitted Case # [id number] - Rx called into pharmacy @ Endo packet mailed to patient Prep sent via MyChart if pt acct active Pt is aware they will need a powder truck driver to take them home from procedure. [...] 04/12/2024 10:30 AM EST ----- Message from Cyndy Walton APRN - DEEPA sent at 03/15/2024 10:11 AM EDT ----- Please schedule patient for EGD-[facility]. Thank you. documented in this [facility]12-04-2024 MydoDCQP-RUF-7 (AGENT OF COVID-19) RNA: Not detected INFLUENZA A RNA: Not detected INFLUENZA B RNA: Not detected RESPIRATORY SYNCYTIAL VIRUS (RSV) RNA: Not detectedMount Desert Island HospitalComment on above:Performed By: #### [id number] ####[facility] [id number] [place] [address] [facility] [id number] Telephone encounter Note* Telephone Encounter - Reva Guadalupe MA - 04/20/2024 9:43 AM EST Lmtcb re: sx egd [facility] [id number] Miscellaneous Notes* Telephone Encounter - Reva Guadalupe [...] AM EDT ----- Please schedule patient for EGD-[place] location. Thank you. documented in this encounterSWadsworth-Rittman [id number] Telephone encounter Note* Telephone Encounter - Emily Desai RN - 04/12/2024 10:30 AM EST GI staff to contact pt for scheduling. [place] [id number] Telephone encounter Note* Telephone Encounter - Emily Desai RN - 04/12/2024 10:30 AM EST ----- Message from THANG Nichole CNP sent at 03/15/2024 10:11 AM EDT ----- Please schedule patient for EGD-[place] location. Thank you. [facility] [id number] Telephone encounter Note* Telephone Encounter - Rachel Arguelles PA-C - 04/08/2024 9:55 AM EST The following approved medication requests have been transmitted electronically. Requested Prescriptions Signed Prescriptions Disp Refills cyclobenzaprine (FLEXERIL) 5 mg tablet 270 tablet 1 Sig: Take 1 tablet by mouth three times a day as needed. Authorizing Provider: RACHEL ARGUELLES PA-C [facility]11-22-2024 Miscellaneous Notes* Telephone Encounter - Rachel Arguelles [...] - 04/08/2024 9:34 AM EST Seen by [facility] on 08/20/23 for FU We sorted [...] Appointment : [place] documented in this encounterFulton County Health Center11-22-2024 Telephone encounter Note * Telephone Encounter - Norma Young RN - 04/08/2024 9:34 AM EST Seen by [facility] on 08/20/23 for FU We sorted out that he's taking tizanidine, and he derives benefit from the medication. He is to continue the current dose of . He was again given a prescription for cyclobenzaprine 5mg with the ability to take it up to three times daily as needed for severe spasms. Last cyclobenzaprine script written 08/20/23 for 6 months [facility] Work Phone: [phone] Telephone encounter Note* Telephone Encounter - [place] - 04/08/2024 8:45 AM EST Source : fax from pharmacy requesting refill. Delivery : e-script Requested Prescriptions Pending Prescriptions Disp Refills cyclobenzaprine (FLEXERIL) 5 mg tablet 270 tablet 1 Sig: Take 1 tablet by mouth three times a day as needed. DX : Patient last seen 08-20-23 Next Appointment : [place] [facility] Work Phone: [phone] Telephone encounter Note* Telephone Encounter - THANG Nichole CNP - 03/29/2024 4:36 PM EST Noted, thank you. Prior EGD and colonoscopy 07/25/2020 ()-LA Grade B esophagitis, 4 cm HH. Normal colonoscopy. [facility] [id number] Miscellaneous Notes* Telephone Encounter - THANG Nichole CNP - 03/29/2024 4:36 PM EST Noted, thank you. Prior EGD and colonoscopy 07/25/2020 ()-LA Grade B esophagitis, 4 cm HH. Normal colonoscopy. * Telephone Encounter - Luc Rosario - 03/25/2024 10:47 AM EST Received faxed records from [facility] and scanned into media. Thanks documented in this encounterSWadsworth-Rittman [id number] Telephone encounter Note* Telephone Encounter - Luc Rosario - 03/25/2024 10:47 AM EST Received faxed records from [facility] and scanned into media. Thanks [facility] [id number] History of Present illness Narrative* THANG Nichole CNP - 03/15/2024 9:20 AM EDT Images from the original note were not included. [facility] - [address] [facility] [address] Dept: [phone] Dept Loc: [phone] Visit type: New Reason for Visit: New [...] awaiting procedure --request prior EGD/colonoscopy report from [facility] --may consider GES pending results of EGD [...] surgeries: appendectomy Prior EGD and colonoscopy at [facility]-unsure time, before 2005. Reports history of ulcers. [...] evidence of acute intra-abdominal or pelvic pathology. Technical Documentation Specialist: LALA Transcribe Date/Time: Sep 10 2023 6:56P Dictated by : JENNIFER DESAI MD This examination was interpreted and the report reviewed and electronically signed by: JENNIFER DESAI MD on Sep 10 2023 7:08PM EST Narrative * * *Final Report* * * DATE OF EXAM: Sep 10 2023 6:45PM [facility] 0530 - CT ABD/PEL W IVCON [...] Nichole 10:11 AM 03/15/24 documented in this [facility]10-29-2024 Instructions* Patient Instructions* THANG Nichole CNP - 03/15/2024 9:20 AM EDT --Please call office with any questions or concerns! [phone] --request prior EGD and colonoscopy report from [facility] --Schedule EGD (upper endoscopy)-[place]. --continue pantoprazole and Carafate --Avoid nonsteroidal anti-inflammatory [...] through Care Everywhere. * Upper GI Endoscopy ([place]) * Nausea and Vomiting, Adult ([place]) documented in this [facility]10-08-2024 Surgery Surgical operation note* Operative Report [...] IT opioid trial. Referred to Ortho in [place] for 2nd opinion regarding right knee [facility] Work Phone: 1([phone]) 317-821610-08-2024 Surgical operation note* Operative Report - Jennifer [...] IT opioid trial. Referred to Ortho in [place] for 2nd opinion regarding right knee documented in this encounterFulton County Health Center09-18-2024 Instructions* Patient Instructions* Milena Barr APRN.FLEXIBLE MACHINING SYSTEM MACHINIST - 02/03/2024 1:42 PM EDT *Pt is [...] Follow-up in 3 months -in office visit Milena Barr APRN.CNP documented in this encounterFulton County Health Center09-18-2024 History of Present illness Narrative* Milena Barr APRN.CNP - 02/03/2024 11:30 AM EDT This video visit was performed via [employer] Video Visit. Patient consented to receive health care services via virtual visit for this encounter Provider Location: Non-[facility] Facility Patient Location: Patient Home or Place of Residence I have communicated my name and active licensure. The patient's identity and physical location wereverified at the time of this visit. Either the patient or their legal service support representative has been informed of the risks and benefits of -- and alternatives to -- treatment through a remote evaluation andconsents to proceed with the evaluation remotely. Chief Complaint: Pain History of Present Illness: Tate Baltazar is a 48 year old year old male being seen at [facility] for a evaluation and/or [...] is an expected metabolite of dextromethorphan, an dhuh-sta-wquptgi or prescription cough suppressant. Dextrorphan cannot be [...] to recent stroke 10/20/2017 Hypertension Migraines 2000 Obesity, Class I, BMI 30-34.9 06/01/2023 JANNETTE [...] Unknown Doxycycline Hives Hydrocodone Other: See Comments Amite Juice Unknown Amite Oil Hives, Other: See Comments Pseudoephedrine Unknown [...] to Mental Health provider Dr.Gregg Doan at [facility] for SCStim trial options -pt is declining Reduce alcohol consumption Previously ordered right elbow x-ray-pt still needs to get done A prescription for narcan (naloxone) has been offered to the patient F/u with PCP Follow-up in 5 months -in office visit Milena Barr APRN.CNP Patient states that the gabapentin is not [...] managed locally here. Patient will follow-up with Milena via virtual visit in 2 to 3 months. I would recommend a virtual visit since transportation is difficult for the patient and he does live in [place]. * Milena Barr APRN.CNP - 02/03/2024 11:30 AM EDT This video visit was performed via [employer] Video Visit. Patient consented to receive health care services via virtual visit for this encounter Provider Location: Non-[facility] Facility Patient Location: Patient Home or Place of Residence I have communicated my name and active licensure. The patient's identity and physical location wereverified at the time of this visit. Either the patient or their legal service support representative has been informed of the risks and benefits of -- and alternatives to -- treatment through a remote evaluation andconsents to proceed with the evaluation remotely. Chief Complaint: Pain History of Present Illness: Tate Baltazar is a 48 year old year old male being seen at [facility] for a evaluation and/or [...] is an expected metabolite of dextromethorphan, an tjkf-jiy-zkrkaxh or prescription cough suppressant. Dextrorphan cannot be [...] Unknown Doxycycline Hives Hydrocodone Other: See Comments Amite Juice Unknown Amite Oil Hives, Other: See Comments Pseudoephedrine Unknown [...] 4. 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 ROBE right knee injection - On 11/09/23 he [...] Follow-up in 3 months -in office visit Milena Barr APRN.DEEPA documented in this encounterFulton County Health Center07-22-2024 Telephone encounter Note * Telephone Encounter - Pratibha Deras RN - 12/07/2023 9:11 AM EDT Pt called with the information below, he states that his PCP prescribed the Gabapentin and will receive refills from him. Pratibha Deras RN December 07, 2023 9:12 AM [facility]07-22-2024 Miscellaneous Notes* Telephone Encounter - Pratibha Deras RN - 12/07/2023 9:11 AM EDT Pt called with the information below, he states that his PCP prescribed the Gabapentin and will receive refills from him. Pratibha Deras RN December 07, 2023 9:12 AM * Telephone Encounter - Jennifer Munroe MD - 12/07/2023 8:39 AM EDT No, simply just change control analyst to gabapentin. If he needs a refill [...] 07, 2023 8:38 AM documented in this encounterFulton County Health Center07-22-2024 Telephone encounter Note * Telephone Encounter - Jennifer Munroe MD - 12/07/2023 8:39 AM EDT No, simply just change control analyst to gabapentin. If he needs a refill of this, please find out the dosageand frequency. [facility]07-22-2024 Telephone encounter Note* Telephone Encounter - Pratibha [...] Deras RN December 07, 2023 8:38 AM [facility]07-19-2024 History of Present illness Narrative* Frederick Plasencia, CT - 12/04/2023 10:00 AM EDT Radiology [...] PATIENT PRESENTS WITH AN IMPLANTABLE OR ATTACHED MATERIAL REPROCESSING ASSOCIATE: No RADIOLOGY DEPARTMENT: General X-ray: Exam(s) Completed: Rib X-Ray: Right Spine X-Ray(s): Thoracic and Lumbar AP / LAT / L5-S1 Upper Extremity X-Ray(s): Elbow, right PERIPHERAL IV DATA: Not applicable SIGNED BY: DARSHAN Reyes December 04, 2023 10:22 AM documented in this encounterFulton County Health Center07-18-2024 History of Present illness Narrative* Jennifer Munroe [...] managed locally here. Patient will follow-up with Milena via virtual visit in 2 to 3 months. I would recommend a virtual visit since transportation is difficult for the patient and [place] does live in [place]. documented in this encounterFulton County Health Center06-27-2024 NoteHNO ID: [id number] Author: ELOISE HEBERT, PT Service: ? Author Type: Physical Therapist Type: Progress Notes Filed: 11/12/2023 15:15 Note Text: 11/12/2023 [facility] PHYSICAL THERAPY DISCONTINUANCE OF CARE Plan of Care Period: Start of Care Date: 01/16/23 Last Visit Date: 04/23/2023 Therapy Program: The following is a summary of the interventions provided for this episode of care; Therapeutic exercise and Manual therapy Assessment: The following is the goal status: Goals for Episode of Care: created on 01/16/23 through 05/30/23 Updated 03/31/23 Long in home exercise program. ONGOING Patient will [...] therapy or scheduled additional follow-up appointments. Eloise Hebert, [facility] CampusEisjufjh10-27-2583 Surgery Surgical operation note* Operative Report - [...] consent was thereby obtained. BRIEF HISTORY: See Milena's last office note of 10/01/2023. DESCRIPTION OF [...] A total of 6 cc Synvisc 1 (#[id number]; exp 06/17/26) was injected easily There were [...] in good condition. COMMENTS: Repeat as needed [facility] Work Phone: [phone] 688-952806-24-2024 Surgical operation note* Operative Report - Jennifer [...] consent was thereby obtained. BRIEF HISTORY: See Milena's last office note of 10/01/2023. DESCRIPTION OF [...] A total of 6 cc Synvisc 1 (#[id number]; exp 06/17/26) was injected easily There were [...] COMMENTS: Repeat as needed documented in this encounterFulton County Health Center05-16-2024 Instructions* Patient Instructions* Milena Barr, STUCCO WORKER.FLEXIBLE MACHINING SYSTEM MACHINIST - 10/01/2023 1:30 PM EDT *Pt is [...] and it lasted for 1 month-Scheduled for 6/4/24 at 11:45 Discussed [employer] SCS trial - declining Previously referred to Mental Health provider Dr.Gregg Doan at [facility] for SCStim trial options -pt is declining Reduce alcohol consumption Previously ordered right elbow x-ray-pt still needs to get done A prescription for narcan (naloxone) has been offered to the patient F/u with PCP Follow-up in 5 months -in office visit Milena Barr APRN.CNP documented in this encounterFulton County Health Center05-16-2024 Telephone encounter Note * Telephone Encounter - Helena Espino MA - 10/01/2023 10:47 AM EDT Items addressed in this encounter: Telephone Encounter I called patient due to him not being arrived for visit, I helped patient get arrived for visit. Able to close encounter. Helena Espino MA October 01, 2023 10:47 AM 10:47 AM [facility]05-16-2024 Miscellaneous Notes* Telephone Encounter - Helena Espino MA - 10/01/2023 10:47 AM EDT Items addressed in this encounter: Telephone Encounter I called patient due to him not being arrived for visit, I helped patient get arrived for visit. Able to close encounter. Helena Espino MA October 01, 2023 10:47 AM 10:47 AM documented in this encounterFulton County Health Center05-16-2024 History of Present illness Narrative* Milena Barr APRN.CNP - 10/01/2023 10:45 AM EDT This video visit was performed via [employer] Visit. Patient consented to receive health care services via virtual visit for this encounter Provider Location: Non-[facility] Patient Location: Patient Home or Place of Residence I have communicated my name and active licensure. The patient's identity and physical location wereverified at the time of this visit. Either the patient or their legal service support representative has been informed of the risks and benefits of -- and alternatives to -- treatment through a remote evaluation andconsents to proceed with the evaluation remotely. Chief Complaint: Pain History of Present Illness: Tate Baltazar is a 48 year old year old male being seen at [facility] for a evaluation and/or [...] is an expected metabolite of dextromethorphan, an xdkz-fxu-zqnwmbz or prescription cough suppressant. Dextrorphan cannot be [...] Unknown Doxycycline Hives Hydrocodone Other: See Comments Amite Juice Unknown Amite Oil Hives, Other: See Comments Pseudoephedrine Unknown [...] 3. 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 [Z79.891 (ICD-10-CM)] [...] to Mental Health provider Dr.Gregg Doan at [facility] for SCStim trial options -pt is declining Reduce alcohol consumption Previously ordered right elbow x-ray-pt still needs to get done A prescription for narcan (naloxone) has been offered to the patient F/u with PCP Follow-up in 5 months -in office visit Milena Barr APRN.DEEPA documented in this encounterFulton County Health Center05-15-2024 Telephone encounter Note * Telephone Encounter - Helena Espino MA - 09/30/2023 4:49 PM EDT Items addressed in this encounter: MyChart Encounter Soapp questionnaire sent Items addressed in this encounter: Virtual Visit Pre Check In Virtual visit precharting done Able to close encounter. Helena Espino MA September 30, 2023 4:49 PM 4:49 PM Helena Espino MA September 30, 2023 4:49 PM 4:49 PM [facility]05-15-2024 Miscellaneous Notes* Telephone Encounter - Helena Espino [...] 4:49 PM 4:49 PM documented in this encounterFulton County Health Center04-04-2024 NoteHNO ID: [id number] Author: MIREYA SWEET PA-C Service: ? Author Type: Physician Fall Intern Type: Progress Notes Filed: 08/20/2023 11:46 Note [...] He was instructed to increase tizanidine to 48 and to add cyclobenzaprine for PRN use. [...] pain all the time. Patient Entered Data [employer] No data to display Spasticity NRS 12/15/2022 [...] cognition, language or prosody on interview. Formal LATRINE CLEANER testing was not performed today. Strength Right [...] which included preparing to see the patient, meii-pv-asss patient care, completing clinical documentation, performing a medically appropriate examination, counseling and educating the patient/family/caregiver, and ordering medications, tests, or procedures. [facility] Instructions* Patient Instructions* Mireya Sweet PA-C - 08/20/2023 11:24 AM EDT Flexeril (Cyclobenzaprine) 5mg Take one tab up to three times daily as needed for increased spasms. documented in this encounterFulton County Health Center04-04-2024 History of Present illness Narrative* Mireya Sweet [...] pain all the time. Patient Entered Data [employer] No data to display Spasticity NRS 12/15/2022 [...] cognition, language or prosody on interview. Formal LATRINE CLEANER testing was not performed today. Strength Right [...] which included preparing to see the patient, iofu-le-lfpu patient care, completing clinical documentation, performing a medically appropriate examination, counseling and educating the patient/family/caregiver, and ordering medications, tests,or procedures. Mireya Sweet PA-C documented in this encounterFulton County Health Center04-03-2024 Miscellaneous Notes* Telephone Encounter - Helena Espino MA - 08/19/2023 10:40 AM EDT Items addressed in this encounter: MyChart Encounter Patient has a follow up virtual visit scheduled. Able to close encounter. Helena Espino MA August 19, 2023 10:41 AM 10:41 AM documented in this encounterFulton County Health Center04-03-2024 Miscellaneous Notes* Telephone Encounter - Azeb Snow - 08/19/2023 8:22 AM EDT I spoke to Tate and informed him due to a mistake on my part the September 13 1:30 procedure appointment is not available. He agreed to the 2:00 appointment instead. Azeb August 19, 2023 8:24 AM documented in this encounterFulton County Health Center04-03-2024 Instructions* Patient Instructions* Milena Barr APRN.CNP - 08/19/2023 8:11 AM EDT *Pt is [...] to Mental Health provider Dr.Gregg Doan at [facility] for SCStim trial options -pt is declining Reduce alcohol consumption Previously ordered right elbow x-ray-pt still needs to get done A prescription for narcan (naloxone) has been offered to the patient F/u with PCP Follow-up in 3 months Milena Barr APRN.CNP documented in this encounterFulton County Health Center04-03-2024 Miscellaneous Notes* Telephone Encounter - Helena Espino [...] 7:46 AM 7:46 AM documented in this encounterFulton County Health Center04-03-2024 History of Present illness Narrative* Milena Barr, THANG.FLEXIBLE MACHINING SYSTEM MACHINIST - 08/19/2023 7:45 AM EDT This video visit was performed via [employer] video visit. Patient consented to receive health care services via virtual visit for this encounter Provider Location: Non-[facility] Patient Location: Patient Home or Place of Residence Risks, benefits, and limitations of receiving care virtually were discussed with the patient. The patient expressed understanding and is willing to proceed. Chief Complaint: Pain History of Present Illness: Tate Baltazar is a 48 year old year old male being seen at [facility] for a evaluation and/or [...] is an expected metabolite of dextromethorphan, an ljbt-lzx-fnqvbgx or prescription cough suppressant. Dextrorphan cannot be [...] Unknown Doxycycline Hives Hydrocodone Other: See Comments Amite Juice Unknown Amite Oil Hives, Other: See Comments Pseudoephedrine Unknown [...] 5. RSD (reflex sympathetic dystrophy) G90.50 6. 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 [Z79.891 (ICD-10-CM)] [...] to [facility] SCStim trial options -pt is declining Reduce alcohol consumption Previously ordered right elbow x-ray-pt still needs to get done A prescription for narcan (naloxone) has been offered to the patient F/u with PCP Follow-up in 3 months Milena Barr APRN.DEEPA documented in this encounterFulton County Health Center02-22-2024 Miscellaneous Notes* Telephone Encounter - Helena Espino MA - 07/09/2023 11:29 AM EST Items addressed in this encounter: MyChart Encounter I scheduled pt a 1 month follow up virtual visit with Milena. Able to close encounter. Helena Espino MA July 09, 2023 11:29 AM 11:29 AM documented in this encounterFulton County Health Center02-22-2024 Instructions* Patient Instructions* Milena Barr APRN.CNP - 07/09/2023 10:52 AM EST [...] to Mental Health provider Dr.Gregg Doan at [facility] for SCStim trial options -pt is declining Reduce alcohol consumption Previously ordered right elbow x-ray-pt still needs to get done A prescription for narcan (naloxone) has been offered to the patient F/u with PCP Follow-up in 3 months Milena Barr APRN.CNP documented in this encounterFulton County Health Center02-22-2024 History of Present illness Narrative* Milena Barr APRN.CNP - 07/09/2023 10:45 AM EST This video visit was performed via [employer] video visit. Patient consented to receive health care services via virtual visit for this encounter Provider [facility] Patient Location: Patient Home or Place of Residence Risks, benefits, and limitations of receiving care virtually were discussed with the patient. The patient expressed understanding and is willing to proceed. Chief Complaint: Pain History of Present Illness: Tate Baltazar is a 48 year old year old male being seen at [facility] for a evaluation and/or [...] knee Radiation: right leg and right foot Intensity:01/25 Timing:constant Character: sharp, throbbing, and burning Numbness/tingling: [...] is an expected metabolite of dextromethorphan, an jbwq-woc-drwqspa or prescription cough suppressant. Dextrorphan cannot be [...] Unknown Doxycycline Hives Hydrocodone Other: See Comments Amite Juice Unknown Amite Oil Hives, Other: See Comments Pseudoephedrine Unknown [...] 5. 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 [Z79.891 (ICD-10-CM)] [...] [facility] SCStim trial options -pt is declining Reduce alcohol consumption Previously ordered right elbow x-ray-pt still needs to get done A prescription for narcan (naloxone) has been offered to the patient F/u with PCP Follow-up in 3 months Milena Barr APRN.CNP documented in this encounterFulton County Health Center02-22-2024 Miscellaneous Notes* Telephone Encounter - Helena Espino [...] 7:09 AM 7:09 AM documented in this encounterFulton County Health Center02-13-2024 Surgical operation note* Operative Report - Jennifer [...] recommend Synvisc 1 injection. documented in this encounterFulton County Health Center01-15-2024 NoteHNO ID: [id number] Author: CASANDRA BOYER RN Service: Care Management Author Type: Registered Nurse Type: Care Mgt Initial Assessment Filed: 06/01/2023 15:52 Note Text: CARE MANAGEMENT: ASSESSMENT AND DISCHARGE PLAN SERVICE DATE: June 01, 2023 SERVICE TIME: 3:48 PM PCP: Lanette Harkins DO - Confirmed. Primary Contact: Extended Emergency Contact Information Primary Emergency Contact: Mika Baltazar Mobile Relation: Father Secondary Emergency Contact: Kesha Blankenship Mobile Relation: Significant other Admission Status: Inpatient Insurance Provider: [facility] MEDICAID OF [place] Discharge Planning requested by: Per Department Practice Potential Transition Plans Home Advance Directives Current Advance Directive: None Paint Technician Attempted to Assist with AD Completion: Yes [...] Be able to go home, General wellness [place] Explained: [place] Given: No Reason Not Given: [...] to do them himself. Message sent to Vicneta the PT who saw patient, she will try to provide those to patient before the end of the day today. Anticipate basic d/c needs. Family to transport. CM instructed patient that CM team will remain available for any dc needs. SIGNATURE: Casandra Boyer RN PATIENT NAME: Tate Baltazar DATE: June 01, 2023 TIME: 3:48 PM CONTACT #: [phone] [id number] NoteHNO ID: [id number] Author: YFN BLANCA MD Service: Hospital Medicine Author Type: Physician Type: Progress Notes Filed: 06/01/2023 11:34 Note Text: DEPARTMENT OF HOSPITAL MEDICINE PROGRESS NOTE SERVICE DATE: 06/01/2023 SERVICE TIME: 7:32 AM Hospital Medicine/Primary Attending: Yfn Blanca MD NIGHT AND WEEKEND COVERAGE: [place] COVERAGE: Nights: [phone], please page [place] [facility] Night coverage pager [phone]. Reason for Admission: Headache and falling INTERVAL [...] 2.4* -- Most recent labs HOSPITAL COURSE: aTte Baltazar is a 48 year old male [...] breath, diarrhea, constipation, dysuria, lower extremity edema. [place] ED Course: Afebrile, hypertensive with BP 159/99, [...] bolus, Benadryl, Zofran, [place] (more content not included)...[facility] 04-23-2023 NoteHNO ID: [id number] Author: Franchesca Larson PTA Service: ? Author Type: Surveillance Systems Engineer Type: Progress Notes Filed: 04/23/2023 11:36 AM [...] 1049 Session Stop Time : 1130 Franchesca [facility]chardC[facility] History of Present illness Narrative* [facility]2023 10:49 AM EST Episode Visit Count: [...] 1130 Franchesca Larson PTA documented in this encounterFulton County Health Center11-20-2023 NoteHNO ID: [id number] Author: Franchesca Larson PTA Service: ? Author Type: Surveillance Systems Engineer Type: Progress Notes Filed: 04/06/2023 3:37 PM [...] 1303 Session Stop Time : 1344 Franchesca BernyC[facility]11-20-2023 History of Present illness Narrative* [facility] 04/06/2023 1:03 PM EST Episode Visit Count: [...] 1344 Franchesca Larson PTA documented in this encounterFulton County Health Center11-17-2023 NoteHNO ID: [id number] Author: Kisha Walters PA-C Service: ? Author Type: Physician Fall Intern Type: Progress Notes Filed: 04/06/2023 9:23 AM [...] return to clinic with any concerns. Latosha KennedyCl[facility]11-17-2023 History of Present illness Narrative* Kisha Walters [...] concerns. Kisha Walters PA-C documented in this encounterFulton County Health Center11-14-2023 NoteHNO ID: [id number] Author: Eloise Hebert PT Service: ? Author [...] created on 01/16/23 through 05/30/23 Updated 03/31/23 Long in home exercise program. ONGOING Patient will [...] Patient to be seen for Therapeutic exercise (50998), Neuromuscular re-education (86013), Manual therapy (80087), Therapeutic activities (07428), Self-long term management (28972), Gait Training (91841), Patient/Family/Caregiver Education PLAN FOR NEXT VISIT: progress [...] Session Stop Time : [address] [facility] [id number] History of Present illness Narrative * Eloise Hebert, PT - 03/31/2023 10:54 AM EST Episode [...] created on 01/16/23 through 05/30/23 Updated 03/31/23 Long in home exercise program. ONGOING Patient will [...] Patient to be seen for Therapeutic exercise (93732), Neuromuscular re-education (71283), Manual therapy (69305), Therapeutic activities (74526), Self-long term management (04445), Gait Training (40767), Patient/Family/Caregiver Education PLAN FOR NEXT VISIT: progress [...] 1135 Eloise Hebert PT documented in this encounterFulton County Health Center11-07-2023 NoteHNO ID: [id number] Author: Franchesca Larson PTA Service: ? Author Type: Surveillance Systems Engineer Type: Progress Notes Filed: 03/24/2023 11:49 AM [...] : 1109 Session Stop Time : 1148 [facility]10-31-2023 NoteHNO ID: [id number] Author: Eloise Hebert PT Service: ? Author [...] Session Stop Time : [address] [facility] [id number] History of Present illness Narrative * Eloise Hebert PT - 03/17/2023 11:19 AM EDT Episode [...] 1156 Eloise Hebert PT documented in this encounterFulton County Health Center10-24-2023 NoteHNO ID: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 TECHNIQUE: Serial axial images without IV contrast were obtained from the vertex to the foramen magnum. MQ: CTBWO_3 CT Radiation dose: Integrated Dose-Length Product (DLP) for this visit = 993.15 mGy*cm CT Dose Reduction Employed: No dose reduction techniques were required COMPARISON: October 19, 2017. RESULT: Information Assurance Manager (topogram) images: No additional findings. Post-operative change: [...] 06/29/2022 Neut% 65.2 06/29/2022 Lymph% 27.1 06/29/2022 Stanley% 6.5 06/29/2022 Eosin% 0.7 10/21/2017 Baso% 0.1 06/29/2022 Abs Neut (ANC) 5.55 06/29/2022 Abs Stanley 0.55 06/29/2022 Abs Eosin 0.06 06/29/2022 Abs [...] tested. Cerebellar: There was no dysmetria on kzbtqs-fl-ynyk and bbyx-fx-sxtb testing. Fine movements were intact in both [...] no Transportation problems: yes He lives in [place], [place] Other: no PLAN: 1. Oral antispasticity [...] Boateng DO and Lanette Harkins DO via [employer]. Time spent with patient: 70 minutes. More than 50% of the face to face time was dedicated to education and counseling regarding treatment options for spasticity. Melvin Larsen MD documented in this encounterFulton County Health Center03-09-2023 History of Present illness Narrative* Iesha Cordero PA-C - 07/24/2022 10:24 AM EST Iesha Cordero PA-C Established Patient Department of Orthopaedics Orthopaedics [address] [place] [id number] Dept: [phone] July 24, 2022 SUBJECTIVE: CHIEF COMPLAINT: Follow [...] this visit. Allergies: Hydrochlorothiazide, Sulfamethoxazole-Trimethoprim, Acetaminophen- Codeine, Amite Juice,Pseudoephedrine, Vicodin [Hydrocodone-Acetaminophen], and Aripiprazole ROS: General: [...] exam IMAGING: Impression IMPRESSION: NO ACUTE ABNORMALITY Technical Documentation Specialist: LALA Transcribe Date/Time: Jun 25 2022 9:36A Dictated by : ROOSEVELT LAM MD This examination was interpreted and the report reviewed and electronically signed by: ROOSEVELT LAM MD on Jun 25 2022 9:40AM EST Results-Findings * * *Final Report* * * DATE OF EXAM: Jun 23 2022 1:56PM [facility] 0213 - MRI KNEE WO IVCON RT [...] PMR Iesha Cordero PA-C documented in this encounterFulton County Health Center03-02-2023 Miscellaneous Notes* Telephone Encounter - Pratibha Deras [...] provided. For clinical consultation, please call . @FLOW([id number])@ Lab Results Component Value Date SUMM FINAL [...] is an expected metabolite of dextromethorphan, an pofo-mmu-qlliotw or prescription cough suppressant. Dextrorphan cannot be distinguished from the scheduled prescription medication levorphanol by the method used for analysis. Verapamil PRESENT Test Result Flag Units Ref Range Creatinine 130 mg/dL >=20 Declared Medications: Medication list was not provided. For clinical consultation, please call . Please review and advise. Pratibha Deras RN documented in this [facility]02-13-2023 History of Present illness Narrative* Rowan Boateng DO - 06/30/2022 3:30 PM ESTSummary: error error documented in this [facility]02-13-2023 Miscellaneous Notes* Telephone Encounter - Vernon Moses RN - 06/30/2022 8:21 AM EST Pt has apt today. Vernon Moses RN June 30, 2022 8:22 AM documented in this [facility]02-06-2023 History of Present illness Narrative* DARSHAN Tapia [...] 23, 2022 1:09 PM documented in this [facility]02-03-2023 Miscellaneous Notes* Telephone Encounter - Rowan Boateng DO - 06/20/2022 1:04 PM EST The following approved medication requests have been transmitted electronically. Requested Prescriptions Pending Prescriptions Disp Refills oxyCODONE-acetaminophen (PERCOCET) 10-325 mg tablet 21 tablet 0 Sig: Take 1 tablet by mouth three times daily as needed for pain for up to 7 days. Rowan Boateng DO * Telephone Encounter - Vernon Moses RN - 06/20/2022 9:57 AM EST Pt called asking if RX was sent. Please sign. Vernon Moses RN June 20, 2022 9:57 AM [...] provided. For clinical consultation, please call . @FLOW([id number])@ Lab Results Component Value Date SUMM FINAL [...] is an expected metabolite of dextromethorphan, an volz-deb-xlprblt or prescription cough suppressant. Dextrorphan cannot be distinguished from the scheduled prescription medication levorphanol by the method used for analysis. Verapamil PRESENT Test Result Flag Units Ref Range Creatinine 130 mg/dL >=20 Declared Medications: Medication list was not provided. For clinical consultation, please call . Please review and advise. Edelmira Perera RN documented in this encounterFulton County Health Center01-30-2023 Instructions* Patient Instructions* Rowan Boateng DO - [...] Obtain UDS f/u in 1 month with LATRINE CLEANER. documented in this encounterFulton County Health Center01-30-2023 History of Present illness Narrative* Rowan Boateng DO - 06/16/2022 3:25 PM EST DATE: June 16, 2022 Chief Complaint: back, migraines, right arm, and right leg/knee pain History of Present Illness: Tate Baltazar is a 47 year old male being seen at [facility] for a evaluation and/or [...] Radiation: right leg and right foot Intensity: 10 Timing:constant Character: sharp, throbbing, and burning Numbness/tingling: [...] is an expected metabolite of dextromethorphan, an bhzv-epz-atfloyz or prescription cough suppressant. 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 Chronic pain is persistent. Medications are helping Tate Baltazar to have an improved quality of life. Patient compliance with Opioid Contract: patient is non- compliant based off of recent urine drug screen results. PDMP website checked and validated. OARRS report reviewed on June 16, 2022 by Elyse Smith, AA Student and is consistent with the patients [...] for this encounter was entered by Elyse Smith medical records analyst, for Dr. Rowan Boateng on June 16, [...] Boateng. June 16, 2022 documented in this encounterF[facility]30[facility] History of Present illness Narrative* Vicenta Van [...] Care Visit completed when applicable. Amisha South NCST Vicenta Van MD Staff, [facility] [place] Electronically signed June 16, 2022 11:56 AM documented in this encounterFulton County [facility] Center01-16-2023 History of Present illness Narrative* Iesha Cordero [...] agreeable. Iesha Cordero PA-C documented in this encounterFulton County [facility] Center01-06-2023 Miscellaneous Notes* Telephone Encounter - Edelmira Perera RN - 05/23/2022 2:36 PM EST [...] he is/has had everything transferred to [facility], he said he is done with landon Smith, I did notify him that provider advised [...] pharmacy, he needs to speak to the manager enterprise and possibly the restaurant and bar manager, he state in the past he has [...] 23, 2022 8:41 AM documented in this encounterFulton County [facility] Center01-06-2023 History of Present illness Narrative* Iesha Cordero PA-C - 05/23/2022 9:27 AM EST Iesha Cordero PA-C Department of Orthopaedics Orthopaedics [address] [place] [id number] Dept: [phone] May 23, 2022 SUBJECTIVE: CHIEF COMPLAINT: No [...] physical therapy last year and is participating [facility]. He did have a cleaning out surgery when he was 20 for a knee fracture. He has baseline right sided weakness due to a cerebral hemorrhage in 2018. He denies any new numbness/tingling or locking/catching. This patient was consulted to orthopedics by Rowan Boateng DO. This note will be communicated back to them via [employer]. Past Medical History: PAST MEDICAL HISTORY Diagnosis [...] this visit. Allergies: Hydrochlorothiazide, Sulfamethoxazole-Trimethoprim, Acetaminophen- Codeine, Amite Juice,Pseudoephedrine, Vicodin [Hydrocodone-Acetaminophen], and Aripiprazole ROS: General: [...] - Radiology, Oru In Impression IMPRESSION: Negative. Technical Documentation Specialist: LALA Transcribe Date/Time: May 26 2022 9:23A [...] MRI. FOLLOW UP INSTRUCTIONS: After MRI Iesha Cordero PA-C documented in this encounterFulton [facility] Center01-06-2023 History of Present illness Narrative* Arianna Young [...] 23, 2022 9:04 AM documented in this encounterFulton County [facility] Center12-05-2022 Instructions* Patient Instructions* Rowan Boateng DO - [...] LESI prn Referral to orthopedic surgeon at [facility] for right knee and right shoulder Follow up in 4-6 weeks with LATRINE CLEANER Patient scheduled for right knee injection on 05/08/2022 documented in this encounterFulton County Health Center12-05-2022 History of Present illness Narrative* Rowan Boateng DO - 04/21/2022 9:44 AM Shady: Pain Management Follow Up DATE: April 21, 2022 Chief Complaint: back, knee, and shoulder pain History of Present Illness: Tate Baltazar is a 47 year old year old male being seen at [facility] for a evaluation and/or [...] Other: See Comments Sulfamethoxazole-Tr* Unknown Acetaminophen-Codei* Unknown Amite Juice Unknown Pseudoephedrine Unknown Vicodin [Hydrocodon* Mental [...] Reflex sympathetic dystrophy, right leg Lumbar radiculopathy 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 Right knee [...] for this encounter was entered by Elyse Smith medical records analyst, for Dr. Rowan Boateng on April 21, [...] Boateng. April 21, 2022 documented in this encounterFulton County [facility] Center11-04-2022 Miscellaneous Notes* Telephone Encounter - Azeb Snow - 03/21/2022 4:30 PM EDT I left a message to schedule the procedures. Azeb March 21, 2022 4:31 PM documented in this encounterFulton County Health Center11-04-2022 History of Present illness Narrative* Mor Edgar APRN.FLEXIBLE MACHINING SYSTEM MACHINIST - 03/21/2022 7:30 AM EDT This video visit was performed via [employer] video visit. Patient consented to receive health care services via virtual visit for this encounter Provider [facility] Patient Location: Patient Home or Place of Residence Risks, benefits, and limitations of receiving care virtually were discussed with the patient. The patient expressed understanding and is willing to proceed. Chief Complaint: Pain History of Present Illness: Tate Baltazar is a 47 year old year old male being seen at [facility] for a evaluation and/or [...] Other: See Comments Sulfamethoxazole-Tr* Unknown Acetaminophen-Codei* Unknown Amite Juice Unknown Pseudoephedrine Unknown Vicodin [Hydrocodon* Mental [...] 2. RSD (reflex sympathetic dystrophy) G90.50 3. 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 [...] month- Mor Edgar APRN.CNP documented in this encounterFulton County [facility] Center11-04-2022 Instructions* Patient Instructions* Mor Edgar APRN.CNP - [...] month- Mor Edgar APRN.CNP documented in this encounterFulton County Health Center10-05-2022 History of Present illness Narrative* Mor Edgar APRN.CNP - 02/19/2022 7:30 AM EDT This video visit was performed via [employer] video visit. Patient consented to receive health care services via virtual visit for this encounter Provider [facility] Patient Location: Patient Home or Place of Residence Risks, benefits, and limitations of receiving care virtually were discussed with the patient. The patient expressed understanding and is willing to proceed. Chief Complaint: Pain History of Present Illness: Tate Baltazar is a 46 year old year old male being seen at [facility] for a evaluation and/or [...] Other: See Comments Sulfamethoxazole-Tr* Unknown Acetaminophen-Codei* Unknown Amite Juice Unknown Pseudoephedrine Unknown Vicodin [Hydrocodon* Mental [...] 2. RSD (reflex sympathetic dystrophy) G90.50 3. 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 Z79.891 4. [...] month- Mor Edgar APRN.CNP documented in this encounterFulton County [facility] Center10-05-2022 Instructions* Patient Instructions* Mor Edgar APRN.CNP - [...] month- Mor Edgar APRN.CNP documented in this encounterFulton County Health Center09-06-2022 History of Present illness Narrative* Mor Edgar APRN.CNP - 01/21/2022 7:30 AM EDT This video visit was performed via [employer] video visit. Patient consented to receive health care services via virtual visit for this encounter Provider [facility] Patient Location: Patient Home or Place of Residence Risks, benefits, and limitations of receiving care virtually were discussed with the patient. The patient expressed understanding and is willing to proceed. Chief Complaint: Pain History of Present Illness: Tate Baltazar is a 46 year old year old male being seen at [facility] for a evaluation and/or [...] Other: See Comments Sulfamethoxazole-Tr* Unknown Acetaminophen-Codei* Unknown Amite Juice Unknown Pseudoephedrine Unknown Vicodin [Hydrocodon* Mental [...] pain of right knee M25.561 G89.29 5. 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 Patient consented to receive health care services via virtual visit for this encounter Provider [facility]: [facility] Patient Location: Patient Home or Place of Residence Risks, benefits, and limitations of receiving care virtually were discussed with the patient. The patient expressed understanding and is willing to proceed. Chief Complaint: Pain History of Present Illness: Tate Baltazar is a 46 year old year old male being seen at [facility] for a evaluation and/or [...] Other: See Comments Sulfamethoxazole-Tr* Unknown Acetaminophen-Codei* Unknown Amite Juice Unknown Pseudoephedrine Unknown Vicodin [Hydrocodon* Mental [...] pain of right knee M25.561 G89.29 5. 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 Pratibha Deras RN documented in this encounterFulton County Health Center07-28-2022 Miscellaneous Notes* Telephone Encounter - Mor Edgar APRN.CNP - 12/12/2021 3:11 PM EDT Order entered * Telephone Encounter - Vernon Moses RN - 12/12/2021 3:10 PM EDT Can you enter corrected UDS order? He will be called on 12/16/21. Vernon Moses RN documented in this encounterFulton County Health Center07-21-2022 Miscellaneous Notes* Telephone Encounter - Edelmira Perera RN - 12/05/2021 9:37 AM EDT Note made to call 12/16 Edelmira Perera RN * Telephone Encounter - Mor Edgar APRN.CNP - 12/05/2021 9:21 AM EDT Please call the patient on 12/16/2021 for a UDS. Order entered. Thanks documented in this encounterFulton County Health Center07-05-2022 Instructions* Patient Instructions* Mor Edgar APRN.CNP - [...] f/u in 1 month- documented in this encounterFulton County Health Center07-05-2022 History of Present illness Narrative* Mor Edgar APRN.DEEPA - 11/19/2021 3:45 PM EDT DATE: November 19, 2021 This video visit was performed via [employer] video visit. Patient consented to receive health care services via virtual visit for this encounter Provider [facility] Patient Location: Patient Home or Place of Residence Risks, benefits, and limitations of receiving care virtually were discussed with the patient. The patient expressed understanding and is willing to proceed. Chief Complaint: Pain History of Present Illness: Tate Baltazar is a 46 year old year old male being seen at [facility] for a evaluation and/or [...] declines f/u in 1 month- Mor Edgar APRN.FLEXIBLE MACHINING SYSTEM MACHINIST documented in this encounterFulton County Health Center06-17-2022 Evaluation + Plan note Future Scheduled Tests Laboratory* Thyroid Stimulating Hormone 11/01/21 * Complete Blood Count 11/01/21 * Lipid Profile 11/01/21 * Microalbumin Level Urine 11/01/21 * Vitamin D Level 11/01/21 * Complete Metabolic Panel 11/01/21 Radiology* MRI Spine Lumbar w/o Contrast 10/28/21 * US Groin Left 09/24/21 [facility] 11-18-2021 Hospital Discharge instructions Patient Education [...] foods again, start with small amounts of [id number], low- fat foods. These include apple sauce, [...] increase stomach acid. Don't use aspirin or [id number] pain and fever medicines, if possible. This includes nonsteroidal anti-inflammatory drugs (NSAIDs). Lose excess weight. Finish eating at least 2 hours before you go to bed or lie down. Raise the head of your bed. [id number] [employer]. [address] [place] [address], [place] [address]. All rights reserved. This information is not intended as a substitute for professional medical care. Always follow yourhealthcare professional's instructions. Follow Up Care 04/03/2021 23:37:44 With:LANETTE HARKINS DO Address: [phone] When:2-4 days [facility] 11-17-2021 Evaluation + Plan note Future Scheduled Tests Laboratory* Throat Culture 04/03/21 * Respiratory ID Panel with COVID-19 by PCR 04/03/21 * Basic Metabolic Panel 05/24/20 [facility] 01-07-2021 Evaluation + Plan note Future Scheduled Tests Laboratory* Basic Metabolic Panel 05/24/20 [facility] 06-05-2018 History of Past illness Narrative* Problem Noted Date Resolved Date Cerebral edema 10/20/2017 10/23/2017 Epigastric pain 09/27/2015 10/23/2017 documented as of this encounter (statuses as of 08/22/2021) [facility] of [facility] illness Narrative* Problem Noted Date Resolved Date Cerebral edema 10/20/2017 10/23/2017 Epigastric pain 09/27/2015 10/23/2017 documented as of this encounter (statuses as of 08/23/2021) [facility] Narrative* Problem Noted Date Resolved Date Cerebral edema 10/20/2017 10/23/2017 Epigastric pain 09/27/2015 10/23/2017 documented as of this encounter (statuses as of 09/05/2021) [facility] Narrative* Problem Noted Date Resolved Date Cerebral edema 10/20/2017 10/23/2017 Epigastric pain 09/27/2015 10/23/2017 documented as of this encounter (statuses as of 09/19/2021) [facility] Narrative* Problem Noted Date Resolved Date Cerebral edema 10/20/2017 10/23/2017 Epigastric pain 09/27/2015 10/23/2017 documented as of this encounter (statuses as of 09/20/2021) [facility] Narrative* Problem Noted Date Resolved Date Cerebral edema 10/20/2017 10/23/2017 Epigastric pain 09/27/2015 10/23/2017 documented as of this encounter (statuses as of 11/19/2021) [facility] Narrative* Problem Noted Date Resolved Date Cerebral edema 10/20/2017 10/23/2017 Epigastric pain 09/27/2015 10/23/2017 documented as of this encounter (statuses as of 12/05/2021) [facility] Narrative* Problem Noted Date Resolved Date Cerebral edema 10/20/2017 10/23/2017 Epigastric pain 09/27/2015 10/23/2017 documented as of this encounter (statuses as of 12/12/2021) [facility] Narrative* Problem Noted Date Resolved Date Cerebral edema 10/20/2017 10/23/2017 Epigastric pain 09/27/2015 10/23/2017 documented as of this encounter (statuses as of 12/17/2021) [facility] Narrative* Problem Noted Date Resolved Date Cerebral edema 10/20/2017 10/23/2017 Epigastric pain 09/27/2015 10/23/2017 documented as of this encounter (statuses as of 12/20/2021) [facility]arrative* Problem Noted Date Resolved Date Cerebral edema 10/20/2017 10/23/2017 Epigastric pain 09/27/2015 10/23/2017 documented as of this encounter (statuses as of 01/21/2022) [facility]* Problem Noted Date Resolved Date Cerebral edema 10/20/2017 10/23/2017 Epigastric pain 09/27/2015 10/23/2017 documented as of this encounter (statuses as of 02/19/2022) [facility]* Problem Noted Date Resolved Date Cerebral edema 10/20/2017 10/23/2017 Epigastric pain 09/27/2015 10/23/2017 documented as of this encounter (statuses as of 03/17/2022) [facility]* Problem Noted Date Resolved Date Cerebral edema 10/20/2017 10/23/2017 Epigastric pain 09/27/2015 10/23/2017 documented as of this encounter (statuses as of 03/21/2022) [facility]* Problem Noted Date Resolved Date Cerebral edema 10/20/2017 10/23/2017 Epigastric pain 09/27/2015 10/23/2017 documented as of this encounter (statuses as of 03/21/2022) [facility]* Problem Noted Date Resolved Date Cerebral edema 10/20/2017 10/23/2017 Epigastric pain 09/27/2015 10/23/2017 documented as of this encounter (statuses as of 03/21/2022) [facility]* Problem Noted Date Resolved Date Cerebral edema 10/20/2017 10/23/2017 Epigastric pain 09/27/2015 10/23/2017 documented as of this encounter (statuses as of 04/21/2022) [facility]* Problem Noted Date Resolved Date Cerebral edema 10/20/2017 10/23/2017 Epigastric pain 09/27/2015 10/23/2017 documented as of this encounter (statuses as of 04/22/2022) [facility]* Problem Noted Date Resolved Date Cerebral edema 10/20/2017 10/23/2017 Epigastric pain 09/27/2015 10/23/2017 documented as of this encounter (statuses as of 05/24/2022) [facility]* Problem Noted Date Resolved Date Cerebral edema 10/20/2017 10/23/2017 Epigastric pain 09/27/2015 10/23/2017 documented as of this encounter (statuses as of 05/26/2022) [facility]* Problem Noted Date Resolved Date Cerebral edema 10/20/2017 10/23/2017 Epigastric pain 09/27/2015 10/23/2017 documented as of this encounter (statuses as of 06/02/2022) [facility]* Problem Noted Date Resolved Date Cerebral edema 10/20/2017 10/23/2017 Epigastric pain 09/27/2015 10/23/2017 documented as of this encounter (statuses as of 06/16/2022) [facility]* Problem Noted Date Resolved Date Cerebral edema 10/20/2017 10/23/2017 Epigastric pain 09/27/2015 10/23/2017 documented as of this encounter (statuses as of 06/17/2022) [facility]* Problem Noted Date Resolved Date Cerebral edema 10/20/2017 10/23/2017 Epigastric pain 09/27/2015 10/23/2017 documented as of this encounter (statuses as of 06/20/2022) [facility]* Problem Noted Date Resolved Date Cerebral edema 10/20/2017 10/23/2017 Epigastric pain 09/27/2015 10/23/2017 documented as of this encounter (statuses as of 06/24/2022) [facility]* Problem Noted Date Resolved Date Cerebral edema 10/20/2017 10/23/2017 Epigastric pain 09/27/2015 10/23/2017 documented as of this encounter (statuses as of 06/30/2022) [facility]* Problem Noted Date Resolved Date Cerebral edema 10/20/2017 10/23/2017 Epigastric pain 09/27/2015 10/23/2017 documented as of this encounter (statuses as of 07/01/2022) [facility]* Problem Noted Date Resolved Date Cerebral edema 10/20/2017 10/23/2017 Epigastric pain 09/27/2015 10/23/2017 documented as of this encounter (statuses as of 07/21/2022) [facility] Problem Noted Date Resolved Date Cerebral edema 10/20/2017 10/23/2017 Epigastric pain 09/27/2015 10/23/2017 documented as of this encounter (statuses as of 07/24/2022) [facility] Problem Noted Date Resolved Date Cerebral edema 10/20/2017 10/23/2017 Epigastric pain 09/27/2015 10/23/2017 documented as of this encounter (statuses as of 08/16/2022) [facility] Problem Noted Date Resolved Date Cerebral edema 10/20/2017 10/23/2017 Epigastric pain 09/27/2015 10/23/2017 documented as of this encounter (statuses as of 08/18/2022) [facility] Problem Noted Date Resolved Date Cerebral edema 10/20/2017 10/23/2017 Epigastric pain 09/27/2015 10/23/2017 documented as of this encounter (statuses as of 08/20/2022) [facility] Problem Noted Date Resolved Date Cerebral edema 10/20/2017 10/23/2017 Epigastric pain 09/27/2015 10/23/2017 documented as of this encounter (statuses as of 09/01/2022) [facility] Problem Noted Date Resolved Date Cerebral edema 10/20/2017 10/23/2017 Epigastric pain 09/27/2015 10/23/2017 documented as of this encounter (statuses as of 09/05/2022) [facility] Problem Noted Date Resolved Date Cerebral edema 10/20/2017 10/23/2017 Epigastric pain 09/27/2015 10/23/2017 documented as of this encounter (statuses as of 09/10/2022) [facility] Problem Noted Date Resolved Date Cerebral edema 10/20/2017 10/23/2017 Epigastric pain 09/27/2015 10/23/2017 documented as of this encounter (statuses as of 09/24/2022) [facility] Problem Noted Date Resolved Date Cerebral edema 10/20/2017 10/23/2017 Epigastric pain 09/27/2015 10/23/2017 documented as of this encounter (statuses as of 10/17/2022) [facility]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 am [facility] [address] [place] [address] OFFICE VISIT Date of Service: 10/19/24 MR#: [id number] Acct: [id number] Name: TATE BALTAZAR Rep #: [id number] : 1975 Provider: Dr. Raudel Huber MD Age/Sex: 49/M Location: 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 Raudel Huber MD Age/Sex: 49/M Location: [facility] Status: Signed Intake [...] mg tablet,extended 25 mg PO QDAY 4 11/21/24 History release 24 hr (Myrbetriq) potassium [...] by me, Dr. Fred Huber MD 11/21/24 0647. Part of today?s visit was documented by [...] unsure exactly when that was. Supplemental Info [facility] Imaging Services [address] [place] [address] Upper Ext Joint Only(Routine) MR#: [id number] Acct: [id number] Name: TATE BALTAZAR Rep #: [id number] : 1975 M 49 From: Omega Russo MD PCP: Dr. Lanette Harkins, DO Status: REG CLI Study: Upper Ext Joint Only(Routine) Date of Exam: 11/15/24 Exam# [id number] Ordering Dr: Fred Huber MD PROCEDURE: UPPER [...] External rotation strength 5. No crepitus 11/21/24 115 <Electronically signed by Fred cuellar MD> Date _ Fred Huber MD Cosigner Signature: Date (if applicable) CC: ~ [facility] Work Phone: Progress note Author Fred Huber [facility] Note Date/Time February 09, 2025 10:19am [facility] [address] [place] [address] OFFICE VISIT Date of Service: 02/09/25 MR#: [id number] Acct: [id number] Name: TATE BALTAZAR Rep #: [id number] : 1975 Provider: Dr. Raudel Huber MD Age/Sex: 49/M [place] [facility] [place]: Signed Intake Vital Signs 10/25/24 10:33 [...] mg capsule,delayed 60 mg PO QDAY 4 02/09/25 History release fexofenadine 180 mg tablet [...] or change to the contour Supplemental Info [facility] Imaging Services [address] [place] [address] Upper Ext Joint Only(Routine) MR#: [id number] Acct: [id number] Name: TATE BALTAZAR Rep #: [id number] : 1975 M 49 From: Omega Russo MD PCP: Dr. Lanette Harkins, DO Status: REG CLI Study: Upper Ext Joint Only(Routine) Date of Exam: 11/15/24 Exam# [id number] Ordering Dr: Fred Huber MD PROCEDURE: UPPER [...] Cosigner Signature: Date (if applicable) CC: ~ [place] [facility] Work Phone: Reason for referral (narrative)* Diagnostic Procedure Only (Routine) - New Request Specialty Diagnoses / Procedures Referred By Contac t Referred To Contact XR IMAGING Diagnoses Chronic pain syndrome Procedures XR RIBS 2V AP/OBL LEFT RADEX RIBS UNILATERAL 2 VIEWS Jennifer Munroe MD [address] [place] [address] [place] [address] Referral ID Status Reason Start Date Expiration Date Visits Requested Visits Authorized [id number] New Request Auto-Generat ed Referral 12/03/2023 01/01/2025 1 1 * Diagnostic Procedure Only (Routine) - New Request Specialty Diagnoses / Procedures Referred By Contac t Referred To Contact XR IMAGING Diagnoses Chronic pain syndrome Procedures XR THORACIC LIMITED 2V AP/LAT RADEX SPINE THORACIC 2 VIEWS Jennifer Munroe MD [address] [place] [address] [place] [address] Referral ID Status Reason Start Date Expiration Date Visits Requested Visits Authorized [id number] New Request Auto-Generat ed Referral 12/03/2023 01/01/2025 1 1 * Diagnostic Procedure Only (Routine) - New Request Specialty Diagnoses / Procedures Referred By Contac t Referred To Contact XR IMAGING Diagnoses Chronic pain syndrome Procedures XR LUMBAR LIMITED 2V AP/LAT RADEX SPINE LUMBOSACRAL 2/3 VIEWS Jennifer Munroe MD [address] [place] [address] [place] [address] Referral ID Status Reason Start Date Expiration Date Visits Requested Visits Authorized [id number] New Request Auto-Generat ed Referral 12/03/2023 01/01/2025 1 1 [facility] for referral (narrative)* Diagnostic Procedure Only (Routine) - Closed Specialty Diagnoses / Procedures Referred By Contac t Referred To Contact XR IMAGING Diagnoses Chronic pain syndrome Procedures XR KNEE GENERAL 4V AP BOTH/PA BOTH/LAT/MERC RIGHT RADIOLOGIC EXAM KNEE COMPLETE 4/MORE VIEWS Rowan Boateng DO [address] [place] [address] [place] [address] Referral ID Status Reason Start Date Expiration Date V isits Requested Visits Authorized [id number] Closed Auto-Generate d Referral 04/21/2022 05/21/2023 1 1 [facility] for referral (narrative)No reason for referral [facility] Work Phone: Reason for visit Narrative* Outpatient Procedure (Routine) - Closed Specialty Diagnoses / Procedures Referred By Contac t Referred To Contact [facility] Diagnoses Reflex sympathetic dystrophy Chronic pain syndrome Procedures EMG(NEURO/NI) NERVE CONDUCTION STUDIES 9-10 STUDIES Mor Edgar, THANG.FLEXIBLE MACHINING SYSTEM MACHINIST [address] [place] [address] [facility] [place] [address] [place] [address] Referral ID Status Reason Start Date Expiration Date V isits Requested Visits Authorized [id number] Closed Auto-Generate d Referral 05/20/2022 05/20/2023 1 1 [facility] for visit Narrative* Diagnostic Procedure Only (Routine) - Closed Specialty Diagnoses / Procedures Referred By Contac t Referred To Contact XR IMAGING Diagnoses Chronic pain syndrome Procedures XR THORACIC LIMITED 2V AP/LAT RADEX SPINE THORACIC 2 VIEWS Jennifer Munroe MD [address] [place] [address] [place] [address] Referral ID Status Reason Start Date Expiration Date V isits Requested Visits Authorized [id number] Closed Auto-Generate d Referral 12/03/2023 01/01/2025 1 1 [facility] for visit Narrative* Diagnostic Procedure Only (Routine) - Closed Specialty Diagnoses / Procedures Referred By Contac t Referred To Contact XR IMAGING Diagnoses Chronic right shoulder pain Procedures XR SHOULDER GENERAL 3V OR MORE AP/TRUE AP/OTHER RIGHT RADEX SHOULDER COMPLETE MINIMUM 2 VIEWS Kisha Walters PA-C [address] [place] [address] [place] [address] Referral ID Status Reason Start Date Expiration Date V isits Requested Visits Authorized [id number] Closed Auto-Generate d Referral 08/18/2022 09/17/2023 1 1 [facility] for visit Narrative* Diagnostic Procedure Only (Routine) - Closed Specialty Diagnoses / Procedures Referred By Contac t Referred To Contact XR IMAGING Diagnoses Chronic pain syndrome Procedures XR KNEE GENERAL 4V AP BOTH/PA BOTH/LAT/MERC RIGHT RADIOLOGIC EXAM KNEE COMPLETE 4/MORE VIEWS Rowan Boateng DO [address] [place] [address] [place] [address] Referral ID Status Reason Start Date Expiration Date V isits Requested Visits Authorized [id number] Closed Auto-Generate d Referral 04/21/2022 05/21/2023 1 1 [facility] Summary Purpose Family History No Family History Records FoundUnknown Family Member Name Dates Details Alive and well: Mother Status:Active : Father Status:Active Denies Family history of mal ignant neoplasm of colon: Other(V16.0, Z80.0) Status: Advance Directives No Advanced Directives Records FoundDocuments on File Type Date Recorded 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 Advance Directive(s) 08/07/2021 11:16 PM Advance Directive(s) 05/20/2021 11:08 PM Advance Directive(s) 10/19/2017 9:35 AM Advance Directive(s) 10/19/2017 11:41 AM Advance Directive(s) 10/02/2015 10:00 AM Advance Directive Response Recorded Date/ Time Living Will No September 18, 2020 1: 26pm Power of Chemist Organic No September 18, 2020 1:26pm Documents on File Type Date Recorded 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 No February 18, 2025 8:54pm Chief Complaint and Reason for Visit Chief [...] Admit Date Osteoarthritis of right knee October 19 10:56am Right knee pain October 19, 2024 10:56 am Primary osteoarthritis, right shoulder J une 2024 10:32am Right shoulder pain October 25, 2024 10:3 2am Osteoarthritis of right knee October 27, 2024 10:19am Right knee pain October 27, 2024 10:1 9am Primary osteoarthritis, right shoulder J 2024 11:23am Right rotator cuff tear November 21, 2024 1 1:23am Right shoulder pain November 21, 2024 11:23 am S/P rotator cuff repair November 21, 2024 1 1:23am Osteoarthritis of right knee December 05, 2024 9:58am Right rotator cuff tear February 09, 2025 9:54am S/P rotator cuff repair February 09, 2025 9:54am Chief Complaint Admit Date RIGHT SHOULDER October 25, 2024 10:3 2am Room 2 October 25, 2024 10:3 7am RIGHT KNEE October 27, 2024 10:1 9am RT SHOULDER PAIN, 2 PRIOR SURGERIES November 15, 2024 12:57pm RIGHT SHOULDER November 21, 2024 11:23 am RIGHT KNEE December 05, 2024 9:58 am Room 4 December 05, 2024 10:3 0am RIGHT SHOULDER February 09, 2025 9:54am shoulder pain February 18, 2025 8: 03pm Reason for Visit Admit Date Primary osteoarthritis, right shoulder J 2024 10:32am Right shoulder pain October 25, 2024 10:3 2am Osteoarthritis of right knee October 27, 2024 10:19am Right knee pain October 27, 2024 10:1 9am Primary osteoarthritis, right shoulder J 2024 11:23am Right rotator cuff tear November 21, 2024 1 1:23am Right shoulder pain November 21, 2024 11:23 am S/P rotator cuff repair November 21, 2024 1 1:23am Osteoarthritis of right knee December 05, 2024 9:58am Right rotator cuff tear February 09, 2025 9:54am S/P rotator cuff repair February 09, 2025 9:54am Reason for Referral Specialty Diagnoses / Procedures Referred By Contguerda t Referred To Contact Orthopedics Diagnoses Arthropathies in other specified diseases classified elsewhere, right knee Procedures CONSULT PANEL TO ORTHOPAEDICS OFFICE/OUTPATIENT [facility] 60 MINUTES Jennifer Munroe MD [address] [place] [address] Referral ID Status Reason Start Date Expiration Date Visits Requested Visits Authorized [id number] Authorized PCP Requested Referral 02/23/2024 02/22/2025 1 1 Specialty Diagnoses / Procedures Referred By Contac t Referred To Contact XR IMAGING Diagnoses Arthropathies in other specified diseases classified elsewhere, right knee Procedures XR KNEE GENERAL 4V AP BOTH/PA BOTH/LAT/MERC RIGHT RADIOLOGIC EXAM KNEE COMPLETE 4/MORE VIEWS Jennifer Munroe MD [address] [place] [address] [place] [address] Referral ID Status Reason Start Date Expiration Date Visits Requested Visits Authorized [id number] New Request Auto-Generat ed Referral 02/23/2024 03/24/2025 [...] elbow Procedures CONSULT TO PAIN MGT Barr, Milena Fontanez APRN.FLEXIBLE MACHINING SYSTEM MACHINIST [address] [place] [address] Rowan Boateng, [address] [place] [address] Referral ID Status Reason Start Date Expiration Date Visits Requested Visits Authorized [id number] Ref Not Required PCP Requested Referral 02/03/2024 02/02/2025 1 1 Specialty Diagnoses / Procedures Referred By Contac t Referred To Contact Diagnoses DDD (degenerative disc disease), lumbar Intervertebral disc disorder with radiculopathy of lumbar region Procedures CONSULT TO PSYCHIATRY OFFICE/OUTPATIENT [facility] 60-74 MINUTES Rowan Boateng, [address] [place] [address] Referral ID Status Reason Start Date Expiration Date Visits Requested Visits Authorized [id number] Pending Review PCP Requested Referral 3 02/25/2024 1 1 Specialty Diagnoses / Procedures Referred By Contac t Referred To Contact Diagnoses Chronic pain syndrome Other chronic pain RSD (reflex sympathetic dystrophy) 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 Radiculopathy, lumbar region Primary osteoarthritis of right knee Myofascial pain syndrome Procedures CONSULT TO PSYCHIATRY Rowan Boateng, DO [address] [place] [address] Rod Doan, PhD [address] [place] [address] Referral ID Status Reason Start Date Expiration Date Visits Requested Visits Authorized [id number] Ref Not Required PCP Requested Referral 02/17/2023 02/17/2024 1 1 Specialty Diagnoses / Procedures Referred By Contac t Referred To Contact [facility] Diagnoses S/P rotator cuff repair Procedures CONSULT TO PHYSICAL THERAPY PHYSICAL THERAPY EVALUATION HIGH COMPLEX 45 MINS Kisha Walters PA-C [address] [place] [address] [facility] [address] [address] Referral ID Status Reason Start Date Expiration Date Visits Requested Visits Authorized [id number] Pending Review Auto-Generat ed Referral 01/16/2023 11/19/2023 1 1 Specialty Diagnoses / Procedures Referred By Contac t Referred To Contact MR IMAGING Diagnoses Right shoulder pain, unspecified chronicity Procedures MRI SHOULDER WO IVCON RIGHT MRI ANY JT UPPER EXTREMITY W/O CONTRAST Mal Robbins MD [address] [place] [address] Mr Imaging Referral ID Status Reason Start Date Expiration Date Visits Requested Visits Authorized [id number] Authorized Auto-Generat ed Referral 10/17/2022 12/01/2022 1 1 Specialty Diagnoses / Procedures Referred By Contac t Referred To Contact [facility] Diagnoses Right shoulder pain, unspecified chronicity Procedures CONSULT TO PHYSICAL THERAPY PHYSICAL THERAPY EVALUATION HIGH COMPLEX 45 MINS Kisha Walters PA-C [address] [place] [address] [facility] [address] [address] Referral ID Status Reason Start Date Expiration Date Visits Requested Visits Authorized [id number] Pending Review Auto-Generat ed Referral 09/05/2022 09/05/2023 1 1 Specialty Diagnoses / Procedures Referred By Contac t Referred To Contact Orthopedics Diagnoses Chronic right shoulder pain Procedures CONSULT PANEL TO ORTHOPAEDICS OFFICE/OUTPATIENT [facility] 60-74 MINUTES Melvin Larsen MD [address] [id number] Referral ID Status Reason Start Date Expiration Date Visits Requested Visits Authorized [id number] Authorized PCP Requested Referral 08/15/2022 08/15/2023 1 1 Specialty Diagnoses / Procedures Referred By Contac t Referred To Contact XR IMAGING Diagnoses Chronic right shoulder pain Procedures XR SHOULDER GENERAL 3V OR MORE AP/TRUE AP/OTHER RIGHT RADEX SHOULDER COMPLETE MINIMUM 2 VIEWS Melvin Larsen MD [address] [place] [address] Xr Imaging Referral ID Status Reason Start Date Expiration Date Visits Requested Visits Authorized [id number] Pending Review Auto-Generat ed Referral 08/15/2022 09/14/2023 1 1 Specialty Diagnoses / Procedures Referred By Contac t Referred To Contact [facility] Diagnoses Chronic pain of right knee Right leg weakness Procedures CONSULT TO PHYSICAL MEDICINE AND REHABILITATION OFFICE/OUTPATIENT [facility] 60-74 MINUTES Iesha Cordero PA-C [address] [place] [address] [facility] [place] [address] Referral ID Status Reason Start Date Expiration Date Visits Requested Visits Authorized [id number] Authorized PCP Requested Referral Auto-Generate d Referral 07/24/2022 07/24/2023 1 1 Specialty Diagnoses / Procedures Referred By Contac t Referred To Contact MR IMAGING Diagnoses Chronic pain of right knee Procedures MRI KNEE WO IVCON RT MRI ANY JT LOWER EXTREM W/O CONTRAST MATRL Iesha Cordero PA-C [address] [id number] Mr Imaging Referral ID Status Reason Start Date Expiration Date Visits Requested Visits Authorized [id number] Authorized Auto-Generat ed Referral 05/23/2022 07/07/2022 1 1 Specialty Diagnoses / Procedures Referred By Contac t Referred To Contact Orthopedics Diagnoses Primary osteoarthritis of right knee Procedures CONSULT PANEL TO ORTHOPAEDICS OFFICE/OUTPATIENT [facility] 60-74 MINUTES Rowan Boateng, DO [address] [place] [address] Bentley Galvan, DO [address] [place] [address] Referral ID Status Reason Start Date Expiration Date Visits Requested Visits Authorized [id number] Authorized PCP Requested Referral 04/21/2022 04/21/2023 1 1 Specialty Diagnoses / Procedures Referred By Contac t Referred To Contact XR IMAGING Diagnoses Chronic pain syndrome Procedures XR KNEE GENERAL 4V AP BOTH/PA BOTH/LAT/MERC RIGHT RADIOLOGIC EXAM KNEE COMPLETE 4/MORE VIEWS Rowan Boateng, DO [address] [place] [address] Xr Imaging Referral ID Status Reason Start Date Expiration Date Visits Requested Visits Authorized [id number] Authorized Auto-Generat ed Referral 04/21/2022 05/21/2023 1 [...] CREATED AUTHOR 11/04/2017 [facility] DATE CREATED AUTHOR AUTHOR'S ORGANIZ ATION 10/09/2018 [facility] [employer] DATE CREATED AUTHOR AUTHOR'S ORGANIZ ATION 06/10/2020 [facility] [facility] DATE CREATED AUTHOR AUTHOR'S ORGANIZ ATION 08/22/2020 [employer] DATE CREATED AUTHOR AUTHOR'S ORGANIZ ATION 10/16/2021 [facility] [place] DATE CREATED AUTHOR AUTHOR'S ORGANIZ ATION 09/10/2022 [facility] DATE CREATED AUTHOR AUTHOR'S ORGANIZ ATION 08/21/2023 [facility] DATE CREATED AUTHOR AUTHOR'S ORGANIZ ATION 11/11/2023 [facility] ([place]) DATE CREATED AUTHOR AUTHOR'S ORGANIZ ATION 11/14/2023 [facility] DATE CREATED AUTHOR AUTHOR'S ORGANIZ ATION 01/26/2024 [facility] DATE CREATED AUTHOR AUTHOR'S ORGANIZ ATION 04/14/2024 [facility] DATE CREATED AUTHOR AUTHOR'S ORGANIZ ATION 12/02/2024 [facility] DATE CREATED AUTHOR AUTHOR'S ORGANIZ ATION 02/27/2025 [facility] DATE CREATED AUTHOR AUTHOR'S ORGANIZ ATION 02/27/2025 [facility] DATE CREATED AUTHOR AUTHOR'S ORGANIZ ATION 03/03/2025 [facility] Source Comments (unrecognize d section and content) In the event this informatio n is protected by the Federal Confidentiality of Alcohol and Drug Abuse Patient Records regulations: The Federal rules restrict any use of the information to criminally investigate or prosecute any alcohol or drug abuse patient.[facility] the event this information is protected by the Federal Confidentiality of Alcohol and Drug Abuse Patient Records regulations: The Federal rules restrict any use of the information to criminally investigate or prosecute any alcohol or drug abuse patient.[facility] the event this information is protected by the Federal Confidentiality of Alcohol and Drug Abuse Patient Records regulations: The Federal rules restrict any use of the information to criminally investigate or prosecute any alcohol or drug abuse patient.[facility] Center[facility] the event this information is protected by the Federal Confidentiality of Alcohol and Drug Abuse Patient Records regulations: The Federal rules restrict any use of the information to criminally investigate or prosecute any alcohol or drug abuse patient.[facility] the event this information is protected by the Federal Confidentiality of Alcohol and Drug Abuse Patient Records regulations: The Federal rules restrict any use of the information to criminally investigate or prosecute any alcohol or drug abuse patient.[facility] the event this information is protected by the Federal Confidentiality of Alcohol and Drug Abuse Patient Records regulations: The Federal rules restrict any use of the information to criminally investigate or prosecute any alcohol or drug abuse patient.[facility] the event this information is protected by the Federal Confidentiality of Alcohol and Drug Abuse Patient Records regulations: The Federal rules restrict any use of the information to criminally investigate or prosecute any alcohol or drug abuse patient.[facility] the event this information is protected by the Federal Confidentiality of Alcohol and Drug Abuse Patient Records regulations: The Federal rules restrict any use of the information to criminally investigate or prosecute any alcohol or drug abuse patient.[facility] Center[facility] the event this information is protected by the Federal Confidentiality of Alcohol and Drug Abuse Patient Records regulations: The Federal rules restrict any use of the information to criminally investigate or prosecute any alcohol or drug abuse patient.[facility] the event this information is protected by the Federal Confidentiality of Alcohol and Drug Abuse Patient Records regulations: The Federal rules restrict any use of the information to criminally investigate or prosecute any alcohol or drug abuse patient.[facility] Center[facility] the event this information is protected by the Federal Confidentiality of Alcohol and Drug Abuse Patient Records regulations: The Federal rules restrict any use of the information to criminally investigate or prosecute any alcohol or drug abuse patient.[facility] Center[facility] the event this information is protected by the Federal Confidentiality of Alcohol and Drug Abuse Patient Records regulations: The Federal rules restrict any use of the information to criminally investigate or prosecute any alcohol or drug abuse patient.[facility] Center[facility] the event this information is protected by the Federal Confidentiality of Alcohol and Drug Abuse Patient Records regulations: The Federal rules restrict any use of the information to criminally investigate or prosecute any alcohol or drug abuse patient.[facility] CenterIn the event this information is protected by the Federal Confidentiality of Alcohol and Drug Abuse Patient Records regulations: The Federal rules restrict any use of the information to criminally investigate or prosecute any alcohol or drug abuse patient.[facility] CenterIn the event this information is protected by the Federal Confidentiality of Alcohol and Drug Abuse Patient Records regulations: The Federal rules restrict any use of the information to criminally investigate or prosecute any alcohol or drug abuse patient.[facility] CenterIn the event this information is protected by the Federal Confidentiality of Alcohol and Drug Abuse Patient Records regulations: The Federal rules restrict any use of the information to criminally investigate or prosecute any alcohol or drug abuse patient.[facility] CenterIn the event this information is protected by the Federal Confidentiality of Alcohol and Drug Abuse Patient Records regulations: The Federal rules restrict any use of the information to criminally investigate or prosecute any alcohol or drug abuse patient.[facility] CenterIn the event this information is protected by the Federal Confidentiality of Alcohol and Drug Abuse Patient Records regulations: The Federal rules restrict any use of the information to criminally investigate or prosecute any alcohol or drug abuse patient.[facility] CenterIn the event this information is protected by the Federal Confidentiality of Alcohol and Drug Abuse Patient Records regulations: The Federal rules restrict any use of the information to criminally investigate or prosecute any alcohol or drug abuse patient.[facility] CenterIn the event this information is protected by the Federal Confidentiality of Alcohol and Drug Abuse Patient Records regulations: The Federal rules restrict any use of the information to criminally investigate or prosecute any alcohol or drug abuse patient.[facility] CenterIn the event this information is protected by the Federal Confidentiality of Alcohol and Drug Abuse Patient Records regulations: The Federal rules restrict any use of the information to criminally investigate or prosecute any alcohol or drug abuse patient.[facility] CenterIn the event this information is protected by the Federal Confidentiality of Alcohol and Drug Abuse Patient Records regulations: The Federal rules restrict any use of the information to criminally investigate or prosecute any alcohol or drug abuse patient.[facility] CenterIn the event this information is protected by the Federal Confidentiality of Alcohol and Drug Abuse Patient Records regulations: The Federal rules restrict any use of the information to criminally investigate or prosecute any alcohol or drug abuse patient.[facility] CenterIn the event this information is protected by the Federal Confidentiality of Alcohol and Drug Abuse Patient Records regulations: The Federal rules restrict any use of the information to criminally investigate or prosecute any alcohol or drug abuse patient.[facility] CenterIn the event this information is protected by the Federal Confidentiality of Alcohol and Drug Abuse Patient Records regulations: The Federal rules restrict any use of the information to criminally investigate or prosecute any alcohol or drug abuse patient.[facility] CenterIn the event this information is protected by the Federal Confidentiality of Alcohol and Drug Abuse Patient Records regulations: The Federal rules restrict any use of the information to criminally investigate or prosecute any alcohol or drug abuse patient.[facility] CenterIn the event this information is protected by the Federal Confidentiality of Alcohol and Drug Abuse Patient Records regulations: The Federal rules restrict any use of the information to criminally investigate or prosecute any alcohol or drug abuse patient.[facility] CenterIn the event this information is protected by the Federal Confidentiality of Alcohol and Drug Abuse Patient Records regulations: The Federal rules restrict any use of the information to criminally investigate or prosecute any alcohol or drug abuse patient.[facility] CenterIn the event this information is protected by the Federal Confidentiality of Alcohol and Drug Abuse Patient Records regulations: The Federal rules restrict any use of the information to criminally investigate or prosecute any alcohol or drug abuse patient.[facility] CenterIn the event this information is protected by the Federal Confidentiality of Alcohol and Drug Abuse Patient Records regulations: The Federal rules restrict any use of the information to criminally investigate or prosecute any alcohol or drug abuse patient.[facility] CenterIn the event this information is protected by the Federal Confidentiality of Alcohol and Drug Abuse Patient Records regulations: The Federal rules restrict any use of the information to criminally investigate or prosecute any alcohol or drug abuse patient.[facility] CenterIn the event this information is protected by the Federal Confidentiality of Alcohol and Drug Abuse Patient Records regulations: The Federal rules restrict any use of the information to criminally investigate or prosecute any alcohol or drug abuse patient.[facility] CenterIn the event this information is protected by the Federal Confidentiality of Alcohol and Drug Abuse Patient Records regulations: The Federal rules restrict any use of the information to criminally investigate or prosecute any alcohol or drug abuse patient.[facility] CenterIn the event this information is protected by the Federal Confidentiality of Alcohol and Drug Abuse Patient Records regulations: The Federal rules restrict any use of the information to criminally investigate or prosecute any alcohol or drug abuse patient.[facility] CenterIn the event this information is protected by the Federal Confidentiality of Alcohol and Drug Abuse Patient Records regulations: The Federal rules restrict any use of the information to criminally investigate or prosecute any alcohol or drug abuse patient.[facility] CenterIn the event this information is protected by the Federal Confidentiality of Alcohol and Drug Abuse Patient Records regulations: The Federal rules restrict any use of the information to criminally investigate or prosecute any alcohol or drug abuse patient.[facility] CenterIn the event this information is protected by the Federal Confidentiality of Alcohol and Drug Abuse Patient Records regulations: The Federal rules restrict any use of the information to criminally investigate or prosecute any alcohol or drug abuse patient.[facility] CenterIn the event this information is protected by the Federal Confidentiality of Alcohol and Drug Abuse Patient Records regulations: The Federal rules restrict any use of the information to criminally investigate or prosecute any alcohol or drug abuse patient.[facility] CenterIn the event this information is protected by the Federal Confidentiality of Alcohol and Drug Abuse Patient Records regulations: The Federal rules restrict any use of the information to criminally investigate or prosecute any alcohol or drug abuse patient.[facility] CenterIn the event this information is protected by the Federal Confidentiality of Alcohol and Drug Abuse Patient Records regulations: The Federal rules restrict any use of the information to criminally investigate or prosecute any alcohol or drug abuse patient.[facility] CenterIn the event this information is protected by the Federal Confidentiality of Alcohol and Drug Abuse Patient Records regulations: The Federal rules restrict any use of the information to criminally investigate or prosecute any alcohol or drug abuse patient.[facility]In the event this information is protected by the Federal Confidentiality of Alcohol and Drug Abuse Patient Records regulations: The Federal rules restrict any use of the information to criminally investigate or prosecute any alcohol or drug abuse patient.[facility] CenterIn the event this information is protected by the Federal Confidentiality of Alcohol and Drug Abuse Patient Records regulations: The Federal rules restrict any use of the information to criminally investigate or prosecute any alcohol or drug abuse patient.[facility] CenterIn the event this information is protected by the Federal Confidentiality of Alcohol and Drug Abuse Patient Records regulations: The Federal rules restrict any use of the information to criminally investigate or prosecute any alcohol or drug abuse patient.[facility] CenterIn the event this information is protected by the Federal Confidentiality of Alcohol and Drug Abuse Patient Records regulations: The Federal rules restrict any use of the information to criminally investigate or prosecute any alcohol or drug abuse patient.[facility]In the event this information is protected by the Federal Confidentiality of Alcohol and Drug Abuse Patient Records regulations: The Federal rules restrict any use of the information to criminally investigate or prosecute any alcohol or drug abuse patient.[facility]In the event this information is protected by the Federal Confidentiality of Alcohol and Drug Abuse Patient Records regulations: The Federal rules restrict any use of the information to criminally investigate or prosecute any alcohol or drug abuse patient.[facility]In the event this information is protected by the Federal Confidentiality of Alcohol and Drug Abuse Patient Records regulations: The Federal rules restrict any use of the information to criminally investigate or prosecute any alcohol or drug abuse patient.[facility]In the event this information is protected by the Federal Confidentiality of Alcohol and Drug Abuse Patient Records regulations: The Federal rules restrict any use of the information to criminally investigate or prosecute any alcohol or drug abuse patient.[facility]In the event this information is protected by the Federal Confidentiality of Alcohol and Drug Abuse Patient Records regulations: The Federal rules restrict any use of the information to criminally investigate or prosecute any alcohol or drug abuse patient.[facility]In the event this information is protected by the Federal Confidentiality of Alcohol and Drug Abuse Patient Records regulations: The Federal rules restrict any use of the information to criminally investigate or prosecute any alcohol or drug abuse patient.[facility]In the event this information is protected by the Federal Confidentiality of Alcohol and Drug Abuse Patient Records regulations: The Federal rules restrict any use of the information to criminally investigate or prosecute any alcohol or drug abuse patient.[facility]In the event this information is protected by the Federal Confidentiality of Alcohol and Drug Abuse Patient Records regulations: The Federal rules restrict any use of the information to criminally investigate or prosecute any alcohol or drug abuse patient.[facility]In the event this information is protected by the Federal Confidentiality of Alcohol and Drug Abuse Patient Records regulations: The Federal rules restrict any use of the information to criminally investigate or prosecute any alcohol or drug abuse patient.[facility]In the event this information is protected by the Federal Confidentiality of Alcohol and Drug Abuse Patient Records regulations: The Federal rules restrict any use of the information to criminally investigate or prosecute any alcohol or drug abuse patient.[facility]In the event this information is protected by the Federal Confidentiality of Alcohol and Drug Abuse Patient Records regulations: The Federal rules restrict any use of the information to criminally investigate or prosecute any alcohol or drug abuse patient.[facility]In the event this information is protected by the Federal Confidentiality of Alcohol and Drug Abuse Patient Records regulations: The Federal rules restrict any use of the information to criminally investigate or prosecute any alcohol or drug abuse patient.[facility]In the event this information is protected by the Federal Confidentiality of Alcohol and Drug Abuse Patient Records regulations: The Federal rules restrict any use of the information to criminally investigate or prosecute any alcohol or drug abuse patient.[facility]In the event this information is protected by the Federal Confidentiality of Alcohol and Drug Abuse Patient Records regulations: The Federal rules restrict any use of the information to criminally investigate or prosecute any alcohol or drug abuse patient.[facility]In the event this information is protected by the Federal Confidentiality of Alcohol and Drug Abuse Patient Records regulations: The Federal rules restrict any use of the information to criminally investigate or prosecute any alcohol or drug abuse patient.[facility]In the event this information is protected by the Federal Confidentiality of Alcohol and Drug Abuse Patient Records regulations: The Federal rules restrict any use of the information to criminally investigate or prosecute any alcohol or drug abuse patient.[facility]In the event this information is protected by the Federal Confidentiality of Alcohol and Drug Abuse Patient Records regulations: The Federal rules restrict any use of the information to criminally investigate or prosecute any alcohol or drug abuse patient.[facility]In the event this information is protected by the Federal Confidentiality of Alcohol and Drug Abuse Patient Records regulations: The Federal rules restrict any use of the information to criminally investigate or prosecute any alcohol or drug abuse patient.[facility]In the event this information is protected by the Federal Confidentiality of Alcohol and Drug Abuse Patient Records regulations: The Federal rules restrict any use of the information to criminally investigate or prosecute any alcohol or drug abuse patient.[facility]In the event this information is protected by the Federal Confidentiality of Alcohol and Drug Abuse Patient Records regulations: The Federal rules restrict any use of the information to criminally investigate or prosecute any alcohol or drug abuse patient.[facility]In the event this information is protected by the Federal Confidentiality of Alcohol and Drug Abuse Patient Records regulations: The Federal rules restrict any use of the information to criminally investigate or prosecute any alcohol or drug abuse patient.[facility]In the event this information is protected by the Federal Confidentiality of Alcohol and Drug Abuse Patient Records regulations: The Federal rules restrict any use of the information to criminally investigate or prosecute any alcohol or drug abuse patient.[facility]In the event this information is protected by the Federal Confidentiality of Alcohol and Drug Abuse Patient Records regulations: The Federal rules restrict any use of the information to criminally investigate or prosecute any alcohol or drug abuse patient.[facility]In the event this information is protected by the Federal Confidentiality of Alcohol and Drug Abuse Patient Records regulations: The Federal rules restrict any use of the information to criminally investigate or prosecute any alcohol or drug abuse patient.[facility]In the event this information is protected by the Federal Confidentiality of Alcohol and Drug Abuse Patient Records regulations: The Federal rules restrict any use of the information to criminally investigate or prosecute any alcohol or drug abuse patient.[facility]In the event this information is protected by the Federal Confidentiality of Alcohol and Drug Abuse Patient Records regulations: The Federal rules restrict any use of the information to criminally investigate or prosecute any alcohol or drug abuse patient.[facility]In the event this information is protected by the Federal Confidentiality of Alcohol and Drug Abuse Patient Records regulations: The Federal rules restrict any use of the information to criminally investigate or prosecute any alcohol or drug abuse patient.[facility]In the event this information is protected by the Federal Confidentiality of Alcohol and Drug Abuse Patient Records regulations: The Federal rules restrict any use of the information to criminally investigate or prosecute any alcohol or drug abuse patient.[facility]In the event this information is protected by the Federal Confidentiality of Alcohol and Drug Abuse Patient Records regulations: The Federal rules restrict any use of the information to criminally investigate or prosecute any alcohol or drug abuse patient.[facility]In the event this information is protected by the Federal Confidentiality of Alcohol and Drug Abuse Patient Records regulations: The Federal rules restrict any use of the information to criminally investigate or prosecute any alcohol or drug abuse patient.[facility]In the event this information is protected by the Federal Confidentiality of Alcohol and Drug Abuse Patient Records regulations: The Federal rules restrict any use of the information to criminally investigate or prosecute any alcohol or drug abuse patient.[facility]In the event this information is protected by the Federal Confidentiality of Alcohol and Drug Abuse Patient Records regulations: The Federal rules restrict any use of the information to criminally investigate or prosecute any alcohol or drug abuse patient.[facility]In the event this information is protected by the Federal Confidentiality of Alcohol and Drug Abuse Patient Records regulations: The Federal rules restrict any use of the information to criminally investigate or prosecute any alcohol or drug abuse patient.[facility]In the event this information is protected by the Federal Confidentiality of Alcohol and Drug Abuse Patient Records regulations: The Federal rules restrict any use of the information to criminally investigate or prosecute any alcohol or drug abuse patient.[facility]In the event this information is protected by the Federal Confidentiality of Alcohol and Drug Abuse Patient Records regulations: The Federal rules restrict any use of the information to criminally investigate or prosecute any alcohol or drug abuse patient.[facility]In the event this information is protected by the Federal Confidentiality of Alcohol and Drug Abuse Patient Records regulations: The Federal rules restrict any use of the information to criminally investigate or prosecute any alcohol or drug abuse patient.[facility]In the event this information is protected by the Federal Confidentiality of Alcohol and Drug Abuse Patient Records regulations: The Federal rules restrict any use of the information to criminally investigate or prosecute any alcohol or drug abuse patient.[facility]In the event this information is protected by the Federal Confidentiality of Alcohol and Drug Abuse Patient Records regulations: The Federal rules restrict any use of the information to criminally investigate or prosecute any alcohol or drug abuse patient.[facility]In the event this information is protected by the Federal Confidentiality of Alcohol and Drug Abuse Patient Records regulations: The Federal rules restrict any use of the information to criminally investigate or prosecute any alcohol or drug abuse patient.[facility]In the event this information is protected by the Federal Confidentiality of Alcohol and Drug Abuse Patient Records regulations: The Federal rules restrict any use of the information to criminally investigate or prosecute any alcohol or drug abuse patient.[facility]In the event this information is protected by the Federal Confidentiality of Alcohol and Drug Abuse Patient Records regulations: The Federal rules restrict any use of the information to criminally investigate or prosecute any alcohol or drug abuse patient.[facility]In the event this information is protected by the Federal Confidentiality of Alcohol and Drug Abuse Patient Records regulations: The Federal rules restrict any use of the information to criminally investigate or prosecute any alcohol or drug abuse patient.[facility]In the event this information is protected by the Federal Confidentiality of Alcohol and Drug Abuse Patient Records regulations: The Federal rules restrict any use of the information to criminally investigate or prosecute any alcohol or drug abuse patient.[facility]In the event this information is protected by the Federal Confidentiality of Alcohol and Drug Abuse Patient Records regulations: The Federal rules restrict any use of the information to criminally investigate or prosecute any alcohol or drug abuse patient.[facility]In the event this information is protected by the Federal Confidentiality of Alcohol and Drug Abuse Patient Records regulations: The Federal rules restrict any use of the information to criminally investigate or prosecute any alcohol or drug abuse patient.[facility]In the event this information is protected by the Federal Confidentiality of Alcohol and Drug Abuse Patient Records regulations: The Federal rules restrict any use of the information to criminally investigate or prosecute any alcohol or drug abuse patient.[facility]In the event this information is protected by the Federal Confidentiality of Alcohol and Drug Abuse Patient Records regulations: The Federal rules restrict any use of the information to criminally investigate or prosecute any alcohol or drug abuse patient.[facility]In the event this information is protected by the Federal Confidentiality of Alcohol and Drug Abuse Patient Records regulations: The Federal rules restrict any use of the information to criminally investigate or prosecute any alcohol or drug abuse patient.[facility]In the event this information is protected by the Federal Confidentiality of Alcohol and Drug Abuse Patient Records regulations: The Federal rules restrict any use of the information to criminally investigate or prosecute any alcohol or drug abuse patient.[facility]In the event this information is protected by the Federal Confidentiality of Alcohol and Drug Abuse Patient Records regulations: The Federal rules restrict any use of the information to criminally investigate or prosecute any alcohol or drug abuse patient.[facility]In the event this information is protected by the Federal Confidentiality of Alcohol and Drug Abuse Patient Records regulations: The Federal rules restrict any use of the information to criminally investigate or prosecute any alcohol or drug abuse patient.[facility]In the event this information is protected by the Federal Confidentiality of Alcohol and Drug Abuse Patient Records regulations: The Federal rules restrict any use of the information to criminally investigate or prosecute any alcohol or drug abuse patient.[facility] CenterIn the event this information is protected by the Federal Confidentiality of Alcohol and Drug Abuse Patient Records regulations: The Federal rules restrict any use of the information to criminally investigate or prosecute any alcohol or drug abuse patient.[facility] Center[facility] the event this information is protected by the Federal Confidentiality of Alcohol and Drug Abuse Patient Records regulations: The Federal rules restrict any use of the information to criminally investigate or prosecute any alcohol or drug abuse patient.[facility] Center[facility] the event this information is protected by the Federal Confidentiality of Alcohol and Drug Abuse Patient Records regulations: The Federal rules restrict any use of the information to criminally investigate or prosecute any alcohol or drug abuse patient.[facility] Center[facility] the event this information is protected by the Federal Confidentiality of Alcohol and Drug Abuse Patient Records regulations: The Federal rules restrict any use of the information to criminally investigate or prosecute any alcohol or drug abuse patient.[facility] Center[facility] the event this information is protected by the Federal Confidentiality of Alcohol and Drug Abuse Patient Records regulations: The Federal rules restrict any use of the information to criminally investigate or prosecute any alcohol or drug abuse patient.[facility] Center[facility] the event this information is protected by the Federal Confidentiality of Alcohol and Drug Abuse Patient Records regulations: The Federal rules restrict any use of the information to criminally investigate or prosecute any alcohol or drug abuse patient.[facility] Teams (unrecognized sec tion and content) Instrumentation And Controls Technician Relationship Specialty Start Date End Date Lanette Harkins PCP - General Family Practice 08/30/10 Instrumentation And Controls Technician Relationship Specialty Start Date End Date Lanette Harkins PCP - General Family Practice 08/30/10 Instrumentation And Controls Technician Relationship Specialty Start Date End Date Rissa Lanette Lynch PCP - General Family Practice 08/30/10 Instrumentation And Controls Technician Relationship Specialty Start Date End Date Lanette Harkins PCP - General Family Practice 08/30/10 Instrumentation And Controls Technician Relationship Specialty Start Date End Date Rissa Lanette Lynch PCP - General Family Practice 08/30/10 Instrumentation And Controls Technician Relationship Specialty Start Date End Date Rissa Lanette Syed PCP - General Family Practice 08/30/10 Instrumentation And Controls Technician Relationship Specialty Start Date End Date Rissa Lanette Lynch PCP - General Family Medicine 08/30/10 Instrumentation And Controls Technician Relationship Specialty Start Date End Date Rissa, Lanette Syed PCP - General Family Medicine 08/30/10 Instrumentation And Controls Technician Relationship Specialty Start Date End Date Lanette Harkins PCP - General Family Medicine 08/30/10 Instrumentation And Controls Technician Relationship Specialty Start Date End Date Lanette Harkins PCP - General Family Medicine 08/30/10 Instrumentation And Controls Technician Relationship Specialty Start Date End Date Lanette Harkins DO PCP - General Family Medicine 08/30/10 Instrumentation And Controls Technician Relationship Specialty Start Date End Date Lanette Harkins DO PCP - General Family Medicine 08/30/10 Instrumentation And Controls Technician Relationship Specialty Start Date End Date Lanette Harkins DO PCP - General Family Medicine 08/30/10 Instrumentation And Controls Technician Relationship Specialty Start Date End Date Lanette Harkins DO PCP - General Family Medicine 08/30/10 Instrumentation And Controls Technician Relationship Specialty Start Date End Date Lanette Harkins DO PCP - General Family Medicine 08/30/10 Instrumentation And Controls Technician Relationship Specialty Start Date End Date Lanette Harkins DO PCP - General Family Medicine 08/30/10 Instrumentation And Controls Technician Relationship Specialty Start Date End Date Lanette Harkins DO PCP - General Family Medicine 08/30/10 Instrumentation And Controls Technician Relationship Specialty Start Date End Date Lanette Harkins DO PCP - General Family Medicine 08/30/10 Instrumentation And Controls Technician Relationship Specialty Start Date End Date Lanette Harkins DO PCP - General Family Medicine 08/30/10 Instrumentation And Controls Technician Relationship Specialty Start Date End Date Lanette Harkins DO PCP - General Family Medicine 08/30/10 Instrumentation And Controls Technician Relationship Specialty Start Date End Date Lanette Harkins DO PCP - General Family Medicine 08/30/10 Instrumentation And Controls Technician Relationship Specialty Start Date End Date Lanette Harkins DO PCP - General Family Medicine 08/30/10 Instrumentation And Controls Technician Relationship Specialty Start Date End Date Lanette Harkins DO PCP - General Family Medicine 08/30/10 Instrumentation And Controls Technician Relationship Specialty Start Date End Date Lanette Harkins DO PCP - General Family Medicine 08/30/10 Instrumentation And Controls Technician Relationship Specialty Start Date End Date Lanette Harkins DO PCP - General Family Medicine 08/30/10 Instrumentation And Controls Technician Relationship Specialty Start Date End Date Lanette Harkins DO [address] [place] [address] PCP - General Family Medicine 08/25/22 Instrumentation And Controls Technician Relationship Specialty Start Date End Date Lanette Harkins DO [address] [place] [address] PCP - General Family Medicine 08/29/22 Instrumentation And Controls Technician Relationship Specialty Start Date End Date Lanette Harkins, DO [address] [place] [address] PCP - General Family Medicine 08/25/22 Instrumentation And Controls Technician Relationship Specialty Start Date End Date Lanette Harkins, DO [address] [place] [address] PCP - General Family Medicine 08/25/22 Instrumentation And Controls Technician Relationship Specialty Start Date End Date Lanette Harkins DO [address] [place] [address] PCP - General Family Medicine 08/25/22 Instrumentation And Controls Technician Relationship Specialty Start Date End Date Lanette Harkins DO [address] [place] [address] PCP - General Family Medicine 08/25/22 Instrumentation And Controls Technician Relationship Specialty Start Date End Date Lanette Harkins DO [address] [place] [address] PCP - General Family Medicine 08/25/22 Instrumentation And Controls Technician Relationship Specialty Start Date End Date Lanette Harkins DO [address] [place] [address] PCP - General Family Medicine 08/25/22 Instrumentation And Controls Technician Relationship Specialty Start Date End Date Lanette Harkins DO [address] [place] [address] PCP - General Family Medicine 08/25/22 Instrumentation And Controls Technician Relationship Specialty Start Date End Date Lanette Harkins DO [address] [place] [address] PCP - General Family Medicine 08/25/22 Instrumentation And Controls Technician Relationship Specialty Start Date End Date Lanette Harkins DO [address] [place] [address] PCP - General Family Medicine 08/25/22 Instrumentation And Controls Technician Relationship Specialty Start Date End Date Lanette Harkins DO [address] [place] [address] PCP - General Family Medicine 08/25/22 Instrumentation And Controls Technician Relationship Specialty Start Date End Date Lanette Harkins DO [address] [place] [address] PCP - General Family Medicine 08/25/22 Instrumentation And Controls Technician Relationship Specialty Start Date End Date Lanette Harkins DO [address] [place] [address] PCP - General Family Medicine 08/25/22 Instrumentation And Controls Technician Relationship Specialty Start Date End Date Lanette Harkins DO [address] [place] [address] PCP - General Family Medicine 08/25/22 Instrumentation And Controls Technician Relationship Specialty Start Date End Date Lanette Harkins DO [address] [place] [address] PCP - General Family Medicine 08/25/22 Instrumentation And Controls Technician Relationship Specialty Start Date End Date Lanette Harkins DO [address] [place] [address] PCP - General Family Medicine 08/25/22 Instrumentation And Controls Technician Relationship Specialty Start Date End Date Lanette Harkins DO [address] [place] [address] PCP - General Family Medicine 08/25/22 Instrumentation And Controls Technician Relationship Specialty Start Date End Date Lanette Harkins DO [address] [place] [address] PCP - General Family Medicine 08/25/22 Instrumentation And Controls Technician Relationship Specialty Start Date End Date Lanette Harkins DO [address] [place] [address] PCP - General Family Medicine 08/25/22 Instrumentation And Controls Technician Relationship Specialty Start Date End Date Lanette Harkins DO [address] [place] [address] PCP - General Family Medicine 08/25/22 Instrumentation And Controls Technician Relationship Specialty Start Date End Date Lanette Harkins DO [address] [place] [address] PCP - General Family Medicine 08/25/22 Instrumentation And Controls Technician Relationship Specialty Start Date End Date Lanette Harkins DO [address] [place] [address] PCP - General Family Medicine 08/25/22 Instrumentation And Controls Technician Relationship Specialty Start Date End Date Lanette Harkins DO [address] [place] [address] PCP - General Family Medicine 08/25/22 Instrumentation And Controls Technician Relationship Specialty Start Date End Date Lanette Harkins DO [address] [place] [address] PCP - General Family Medicine 08/25/22 Instrumentation And Controls Technician Relationship Specialty Start Date End Date Lanette Harkins DO [address] [place] [address] PCP - General Family Medicine 08/25/22 Instrumentation And Controls Technician Relationship Specialty Start Date End Date Lanette Harkins DO [address] [place] [address] PCP - General Family Medicine 08/25/22 Instrumentation And Controls Technician Relationship Specialty Start Date End Date Lanette Harkins DO [address] [place] [address] PCP - General Family Medicine 08/25/22 Instrumentation And Controls Technician Relationship Specialty Start Date End Date Lanette Harkins DO [address] [place] [address] PCP - General Family Medicine 08/25/22 Instrumentation And Controls Technician Relationship Specialty Start Date End Date Lanette Harkins DO [address] [place] [address] PCP - General Family Medicine 08/25/22 Instrumentation And Controls Technician Relationship Specialty Start Date End Date Lanette Harkins DO [address] [place] [address] PCP - General Family Medicine 08/25/22 Instrumentation And Controls Technician Relationship Specialty Start Date End Date Lanette Harkins DO [address] [place] [address] PCP - General Family Medicine 08/25/22 Instrumentation And Controls Technician Relationship Specialty Start Date End Date Lanette Harkins DO [address] [place] [address] PCP - General Family Medicine 08/25/22 Instrumentation And Controls Technician Relationship Specialty Start Date End Date Lanette Harkins DO [address] [place] [address] PCP - General Family Medicine 08/25/22 Instrumentation And Controls Technician Relationship Specialty Start Date End Date Lanette Harkins DO [address] [place] [address] PCP - General Family Medicine 08/25/22 Instrumentation And Controls Technician Relationship Specialty Start Date End Date Lanette Harkins DO [address] [place] [address] PCP - General Family Medicine 08/25/22 Instrumentation And Controls Technician Relationship Specialty Start Date End Date Lanette Harkins DO [address] [place] [address] PCP - General Family Medicine 08/25/22 Instrumentation And Controls Technician Relationship Specialty Start Date End Date Lanette Harkins DO [address] [place] [address] PCP - General Family Medicine 08/25/22 Instrumentation And Controls Technician Relationship Specialty Start Date End Date Lanette Harkins DO [address] [place] [address] PCP - General Family Medicine 08/25/22 Instrumentation And Controls Technician Relationship Specialty Start Date End Date Lanette Harkins DO [address] [place] [address] PCP - General Family Medicine 08/25/22 Instrumentation And Controls Technician Relationship Specialty Start Date End Date Lanette Harkins DO [address] [place] [address] PCP - General Family Medicine 08/25/22 Instrumentation And Controls Technician Relationship Specialty Start Date End Date Lanette Harkins DO [address] [place] [address] PCP - General Family Medicine 08/25/22 Instrumentation And Controls Technician Relationship Specialty Start Date End Date Lanette Harkins DO PCP - General Family Medicine 08/30/10 08/24/22 Instrumentation And Controls Technician Relationship Specialty Start Date End Date Lanette Harkins DO [address] [place] [address] PCP - General Family Medicine 08/25/22 Instrumentation And Controls Technician Relationship Specialty Start Date End Date Lanette Harkins DO [address] [place] [address] PCP - General Family Medicine 08/25/22 Instrumentation And Controls Technician Relationship Specialty Start Date End Date Lanette Harkins DO [address] [place] [address] PCP - General 09/07/18 Instrumentation And Controls Technician Relationship Specialty Start Date End Date Lanette Harkins DO [address] [place] [address] PCP - General 09/07/18 Instrumentation And Controls Technician Relationship Specialty Start Date End Date Lanette Harkins DO [address] [place] [address] PCP - General Family Medicine 08/25/22 Instrumentation And Controls Technician Relationship Specialty Start Date End Date Lanette Harkins DO [address] [place] [address] PCP - General 09/07/18 Instrumentation And Controls Technician Relationship Specialty Start Date End Date Lanette Harkins DO [address] [place] [address] PCP - General 09/07/18 Instrumentation And Controls Technician Relationship Specialty Start Date End Date Lanette Harkins DO [address] [place] [address] PCP - General Family Medicine 08/25/22 Instrumentation And Controls Technician Relationship Specialty Start Date End Date Lanette Harkins DO [address] [place] [address] PCP - General Family Medicine 08/25/22 Instrumentation And Controls Technician Relationship Specialty Start Date End Date Lanette Harkins DO [address] [place] [address] PCP - General Family Medicine 08/25/22 Instrumentation And Controls Technician Relationship Specialty Start Date End Date Lanette Harkins DO [address] [place] [address] PCP - General Family Medicine 08/25/22 Team [...] October 27, 2024 End: October 27, 2024 Instrumentation And Controls Technician Relationship Specialty Start Date End Date Lanette Harkins DO [address] [place] [address] PCP - General Family Medicine 08/25/22 Instrumentation And Controls Technician Relationship Specialty Start Date End Date Lanette Harkins DO [address] [place] [address] PCP - General Family Medicine 08/25/22 Team [...] Care Provider Active Start: November 15, 2024 Fred Huber MD Attending [...] November 15, 2024 End: November 15, 2024 Frde Huber MD Attending Provider Active St art: November 15, 2024 End: November 15, 2024 Fred Huber MD Referring Provider Active St art: November 15, 2024 End: November 15, 2024 Instrumentation And Controls Technician Relationship Specialty Start Date End Date Lanette Harkins DO [address] [place] [address] PCP - General Family Medicine 08/25/22 Team [...] December 05, 2024 End: December 05, 2024 Instrumentation And Controls Technician Relationship Specialty Start Date End Date Fred Peters DO [address] [place] [address] PCP - General Family Medicine 12/04/24 Team [...] February 09, 2025 End: February 09, 2025 Team Status: Active Member Role/Relationship Status Dates Dr. Fred Peters DO Primary care physician Active Team Status: [...] February 09, 2025 End: February 09, 2025 Team Status: Inactive Member Role/Relationship Status Dates Dr. Hunter Rizo MD Emergency Department Physician Ac tive Start: February 18, 2025 End: February 18, 2025 Dr. Fred Peters DO Primary care physician Active Start: February 18, 2025 End: February 18, 2025 Goals (unrecognized section and content) Goals [...] NEEDLE PLACEMENT [facility] [address] [place] [address] Referral ID Status Reason Start Date Expiration Date Visits Re quested Visits Authorized [id number] 1 1 Reason Comments Orders Reason Onset Date Comments Corrected UDS order needed 12/12/2021 Reason Comments Patient Care Specialist - Other Reason Comments Refill Request Reason Comments Regarding Procedure Reason Comments Pain RT side of body Reason Comments pt reports his medication is wrong from pharmacy Specialty Diagnoses / Procedures Referred By Contac t Referred To Contact Orthopedics Diagnoses Primary osteoarthritis of right knee Procedures CONSULT PANEL TO ORTHOPAEDICS OFFICE/OUTPATIENT [facility] 60-74 MINUTES Rowan Boateng, [address] [place] [address] Bentley Galvan, [address] [place] [address] Referral ID Status Reason Start Date Expiration Date V isits Requested Visits Authorized [id number] Closed PCP Requested Referral 04/21/2022 04/21/2023 1 1 Reason Comments Follow Up Reason Comments Back Pain Reason Onset Date Comments Refill Request 06/19/2022 Specialty Diagnoses / Procedures Referred By Contguerda t Referred To Contact [facility] Diagnoses Chronic pain of right knee Procedures MRI KNEE WO IVCON RT MRI ANY JT LOWER EXTREM W/O CONTRAST TABITHAL Iesha Cordero PA-C [address] [place] [address] [facility] Referral ID Status Reason Start Date Expiration Date V isits Requested Visits Authorized [id number] Closed Auto-Generate d Referral 05/23/2022 07/07/2022 1 1 Reason Onset Date Comments Refill Request 06/28/2022 Reason Onset Date Comments Refill Request 07/17/2022 Reason Comments Follow Up Knee Pain Reason Comments Spasticity Specialty Diagnoses / Procedures Referred By Contac t Referred To Contact [facility] Diagnoses Spasticity Procedures CONSULT - SPASTICITY EVAL OFFICE/OUTPATIENT [facility] 60-74 MINUTES Manuelito Cancino MD [address] [place] [address] [facility] [id number] [place] [address] Referral ID Status Reason Start Date Expiration Date V isits Requested Visits Authorized [id number] Closed PCP Requested Referral Auto-Generated Referral 08/14/2022 08/14/2023 1 1 Reason Onset Date Comments Refill Request 08/14/2022 Reason Comments ER visit update - burn Reason Comments Burn Reason Comments New Pain Specialty Diagnoses / Procedures Referred By Contac t Referred To Contact Orthopedics Diagnoses Chronic right shoulder pain Procedures CONSULT PANEL TO ORTHOPAEDICS OFFICE/OUTPATIENT [facility] 60-74 MINUTES Melvin Larsen MD [address] [place] [address] Referral ID Status Reason Start Date Expiration Date V isits Requested Visits Authorized [id number] Closed PCP Requested Referral 08/15/2022 08/15/2023 1 1 Reason Onset Date Comments Refill Request 09/19/2022 Reason Comments Established Patient Pain Follow Up Reason Onset Date Comments Refill Request 10/20/2022 Specialty Diagnoses / Procedures Referred By Contac t Referred To Contact [facility] IMAGING Diagnoses Right shoulder pain, unspecified chronicity Procedures MRI SHOULDER WO IVCON RIGHT MRI ANY JT UPPER EXTREMITY W/O CONTRAST Mal Robbins MD [address] [facility] [place] [address] Mr Imaging Referral ID Status Reason Start Date Expiration Date V isits Requested Visits Authorized [id number] Closed Auto-Generate d Referral 10/17/2022 12/01/2022 1 1 Reason Onset Date Comments Refill Request 11/19/2022 Reason Comments Orders Reason Comments Appointment Post-op physical the rapy Reason Comments Medication Problem Reason Comments Established Patient Follow Up Post Op Reason Comments Patient Question Reason Comments Physical Therapy Specialty Diagnoses / Procedures [facility] By [facility] Referred To Contact [facility] Diagnoses S/P right rotator cuff repair Procedures PT REHAB FOLLOW UP ORDER THERAPEUTIC EXERCISES RE, EA 15 MIN. Mal Gotti MD [address] [place] [address] [place] [place] [id number] Referral ID Status Reason Start Date Expiration Date Visits Requested Visits Authorized [id number] Authorized PCP Requested Referral Auto-Generate d Referral 01/23/2023 04/24/2023 20 20 Reason Comments Pain Reason Comments Patient Update Needs new psych eval Specialty Diagnoses / Procedures Referred By [facility] Referred To Contact Diagnoses Primary osteoarthritis of right knee Procedures ARTHROCENTESIS ASPIR&/INJ MAJOR JT/BURSA W/O US ARTHROCENTESIS,ASPIRATION AND/OR INJECTION,MAJOR JOINT OR BURSA W/O US GUIDANCE [facility] [address] [place] [address] Referral ID Status Reason Start Date Expiration Date Visits Re quested Visits Authorized [id number] 1 1 Reason Comments PT Progress Note Specialty Diagnoses / Procedures Referred By [facility] Referred To Contact [facility] Diagnoses S/P right rotator cuff repair Procedures PT REHAB FOLLOW UP ORDER THERAPEUTIC EXERCISES RE, EA 15 MIN. Mal Gotti MD [address] [place] [address] [address] Specialty Diagnoses / Procedures Referred By [facility] Referred To Contact Diagnoses Primary osteoarthritis of right knee Procedures ARTHROCENTESIS ASPIR&/INJ MAJOR JT/BURSA W/O US FLUOROSCOPIC GUIDANCE NEEDLE PLACEMENT ADD ON ARTHROCENTESIS,ASPIRATION AND/OR INJECTION,MAJOR JOINT OR BURSA W/O US GUIDANCE FLUOROSCOPIC GUIDANCE FOR NEEDLE PLACEMENT [facility] [address] [place] [address] Reason Comments virtual visit precharting Reason Comments Future Appointment Reason Comments Appointment Reason Comments September 13 time change Reason Comments Follow Up 6 month Reason Comments virtual visit precharting Referral ID Status Reason Start Date Expiration Date Visits Re quested Visits Authorized [id number] 1 1 Reason Comments Chronic Pain Reason Comments Patient Update Specialty Diagnoses / Procedures Referred By Contac t Referred To Contact Diagnoses Chronic right shoulder pain Chronic right shoulder pain [M25.511, G89.29] Procedures ARTHROCENTESIS ASPIR&/INJ MAJOR JT/BURSA W/O US ARTHROCENTESIS,ASPIRATION AND/OR INJECTION,MAJOR JOINT OR BURSA W/O US GUIDANCE [facility] [address] [place] [address] Referral ID Status Reason Start Date Expiration Date Visits Re quested Visits Authorized [id number] 1 1 Reason Comments New Patient Abdominal Pain Specialty Diagnoses / Procedures Referred By Contac t Referred To Contact Gastroenterology Diagnoses Epigastric pain epigastric pain and some nausea refractory to proton pump inhibitor Procedures consultation Lanette Harkins DO [address] [place] [address] Phone: tel: fax: [facility] [address] [address] Phone: tel: fax: Referral ID Status Reason Start Date Expiration Date Visits Re quested Visits Authorized [id number] Closed 12/04/2023 12/03/2024 1 1 Reason Onset [...] Member Role: Primary Care Physician Address: Address: [address] [place] [phone]- Care Team Related Persons Name: ROBBI BALTAZAR Address: [address] [place] [phone] Care Team Personnel Name: LANETTE HARKINS DO Position: P4 Physician - Primary Care Med Service: Active Provider Member Role: Primary Care Physician Address: Address: [address] [place] [phone]- Care Team Related Persons Name: ROBBI BALTAZAR Address: Home [address] [place], [place] [id number] Care Team Personnel Name: LANETTE HARKINS DO Position: P4 Physician - Primary Care Med Service: Active Provider Member Role: Primary Care Physician Address: Address: [address] [place] [phone]- Care Team Related Persons Name: ROBBI BALTAZAR Address: Home [address] [place] [phone] PRN Active and Recently Administ ered Medications [...] er: Jennifer Munroe MD - Comment: lot [id number] 06/17/26) PRN Medication Order 02/21/2024 02/22/2024 02/23/2024 [...] BE BASED ON THE PRIMARY CLINICAL RECORDS. [facility] [employer] [facility]. provides no warranty or guarantee of the accuracy or completeness of information in this document.
[2025-03-08] MEDS: Lactated Ringers 1,000 ML 15 ML IV (06:16)
--- NOTE | 2025-03-08 06:47 | PRE.ANES_ITS ---
ASA Classification* ASA Classification ASA Classification: 3 Assessment & Plan Anesthesia* Anesthesia Assessment Anesthesia Assessment: Discussed sedation and/or anesthesia options, risks, benefits, and alternatives with patient/parents/legal guardian/POA. Questions invited. The patient/parents/legal guardian/POA seems to understand and agrees to proceed with anesthesia plan. Reviewed the physical assessment, medical history, allergy history and patient home medications list prior to surgery/procedure/anesthetic and documented any changes. Performed airway and anesthesia risk assessments. Anesthesia Type Anesthesia Type: General and Block Anesthesia Focused Assessment* Temperature: 97.9 F Pulse Rate: 78 Blood Pressure: 132/94 Respiratory Rate: 18 Pulse Ox: 98 Airway Assessment Mouth opens: >3 cm Mallampati Score: II Labs Anesthesia Preop lab: CBC WBC, (4.4-11.0) 5.9 K/mm3 02/23/25, 09:22 RBC, (4.6-6.2) 4.29 M/mm3 L 02/23/25, : Hgb, (13.0-16.5) 13.0 g/dL 02/23/25, :22 Hct, (40-54) 37.3 % L 02/23/25, :22 Plt Count, (150-450) 211 K/mm3 02/23/25, 09:22 CHEMISTRY Potassium, (3.3-5.1) 4.1 mmol/L 02/23/25, 09:22 Sodium, (133-145) 140 mmol/L 02/23/25, :22 Magnesium, (1.6-2.6) 2.5 mg/dL 10/24/17, 07:26 Phosphorus, (2.5-4.9) 3.0 mg/dL 10/24/17, 07:26 BUN, (4-19) 8 mg/dL 02/23/25, 09:22 Creatinine, (0.70-1.20) 1.09 mg/dL 02/23/25, 09:22 Glucose, (70-99) 93 mg/dL 02/23/25, 09:22 TSH, (0.358-3.74) 0.92 uIU/mL 10/19/18, 10:35 COAG Pre-Assessment Diagnosis/Proposed Procedure Planned Operative Procedure(s): (R) Right shoulder Arthroscopy, subacromial decompression, rotator cuff repair, allograft patch augmentation Anesthesia History 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 When Was Last Pacemaker Check QUESTION #4 FULL TEXT: You/Your Family Experience fever (hyperthermia) with Anesthesia Last Oral Intake Last Oral intake: Last Oral Intake NPO since 21:30 03/08/25 06:00 Meds taken in AM with sips of No 03/08/25 06:00 water? Meds patient instructed to take am of surgery PONV PONV - it software engineer: PONV - it software engineer Female No 02/22/25 09:23 HX of Motion Sickness No 02/22/25 09:23 HX of N/V After Surgery No 02/22/25 09:23 Non-Smoker Yes 02/22/25 09:23 Duration of Surgery greater Yes 02/22/25 09:23 than 60 minutes Number of Risk Factors 2 02/22/25 09:23 PONV Score Moderate Risk 02/22/25 09:23 Height & Weight Height & Weight: Anesthesia: Height & Weight Height 6 ft 03/08/25 06:00 Weight: 115 kg 03/08/25 06:00 Body Mass Index (BMI) 34.4 03/08/25 06:00 Respiratory Assessment Respiratory Assessment - it software engineer: Respiratory Tract Infection Hx - it software engineer Hx Respiratory Tract Infection No 02/22/25 09:23 STOP Sleep Apnea STOP Sleep Apnea - it software engineer: STOP Sleep Apnea - it software engineer Hx Hypertension Yes 02/22/25 09:23 Hx Sleep Apnea Yes 02/22/25 09:23 CPAP Yes: non compliant 02/22/25 09:23 BIPAP No 02/22/25 09:23 Do you snore loudly (louder than talking or can be heard Do you often feel tired/ fatigued/ sleepy during daytime? Has anyone observed you stop breathing during sleep? STOP Results Positive 02/22/25 09:23 QUESTION #5 FULL TEXT : Do you snore loudly (louder than talking or can be heard through closed doors)? 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 Specify any problems Hx of Preganancy in last 3 N/A 02/22/25 09:23 Months Nurse Filling Out Transfusion NBUCHER 02/22/25 09:23 & Questions: Date: 02/22/25 02/22/25 09:23 Time: 02/22/25 09:23 Patient unable to answer at this time (ie. confused, unrespo /Reproduction History /Reproductive History - it software engineer: /Reproductive Hx- it software engineer Hx Now No 02/22/25 09:23 Gestational Age (in weeks): EDC: Hx Hx Para Hx Section SAB No 02/22/25 09:23 Active Medications Active Medications: Current Medications Generic Name Dose Route Start Last Admin Trade Name Freq PRN Reason Stop Dose Admin Cefazolin Sodium 2 gm/ Sodium 110 mls @ 200 mls/hr 03/08/25 07:30 Chloride IV 03/08/25 08:02 INTRAOP ONE Lactated Ringer's 1,000 mls @ 15 mls/hr 03/08/25 05:45 03/08/25 06:16 IV 15 mls/hr .Q48H ISABELL Administration PFSH Medical History Preop testing Wears partial dentures Arthritis History of edema Right rotator cuff tear Primary osteoarthritis, right shoulder Right shoulder pain Osteoarthritis of right knee Right knee pain Loose, teeth Hearing loss, right Alcohol abuse Mood disorder History of steroid therapy Chronic pain History of IBS GERD (gastroesophageal reflux disease) Hiatal hernia Non-smoker CPAP (continuous positive airway pressure) dependence Pain aggravated by walking Edema Irregular heart beat Hypertension Migraine headache Restless legs Injury of back Stroke/cerebrovascular accident Home Medications ?Medication ?Instructions ?Recorded ?Last Taken ?Type pantoprazole 40 mg tablet,delayed 40 mg PO DAILY 09/1803/07/25 History release tizanidine 4 mg capsule 8 mg PO QHS 09/18/20 5 History bupropion HCl 300 mg 24 hr tablet, 300 mg PO QDAY 02/1503/07/25 History extended release duloxetine 60 mg capsule,delayed 60 mg PO QDAY 03/07/25 History release fexofenadine 180 mg tablet 180 mg PO QDAY 02/29/24 History gabapentin 100 mg tablet 600 mg PO TID 02/29/2403/07 History mirabegron 25 mg tablet,extended 25 mg PO QDAY 03/07/25 History release 24 hr (Myrbetriq) potassium chloride 20 mEq 40 meq PO DAILY 02/29/24 History tablet,extended release potassium chloride 20 mEq 20 meq PO BID 02/29/2403/07 History tablet,extended release(part/cryst) sucralfate 1 gram tablet 1 g PO 4X/DAY 02/29/2403/07 History tamsulosin 0.4 mg capsule 0.4 mg PO QDAY 02/29/2402/16 History valsartan 160 mg tablet 160 mg PO QDAY 02/29/2402/16 History verapamil 120 mg tablet,extended 240 mg PO QHS 03/07/25 History release zonisamide 50 mg capsule 50 mg PO QHS 02/29/24 History ubrogepant 100 mg tablet (Ubrelvy) 100 mg PO Q2H PRN P RN migraines 02/22/25 Unknown History Allergy/AdvReac Type Severity Reaction Status Date / Time pseudoephedrine (From AdvReac Intermediate unknown Verified 03/08/25 05:58 Sudafed) fentanyl AdvReac Other Verified 03/08/25 05:58 hydrocodone (From Vicodin) AdvReac Other Verified 03/08/25 05:58 Surgical History S/P rotator cuff repair Hx of cardiac catheterization Hx of colonoscopy History of esophagogastroduodenoscopy (EGD) Hx of vasectomy Hx of arthroscopic knee surgery Hx of tonsillectomy Hx of appendectomy Hx of shoulder surgery Social History household members: spouse and family Smoking Status: Former smoker alcohol intake: current alcohol intake frequency: holidays/special occasions only Review of Systems (Anesthesia) ROS Narrative System reviewed and no additional complaints, except as documented.
--- NOTE | 2025-03-08 07:07 | PCM.HP.STD ---
HPI - General HPI Narrative TATE SINGH, is a 50 M who presents for right shoulder arthroscopy, subacromial decompression, rotator cuff repair, allograft patch augmentation. No changes to history and physical exam. Right shoulder marked. Plan for block. Risks alternatives benefits discussed as well as postoperative instructions and narcotic counseling given. 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 He understands wished to proceed no further questions or concerns. MR#: [id number] Acct: [id number] Name: TATE SINGH Rep #: [id number] : 1975 Provider: Dr. Ajith Huber MD Age/Sex: 49/M Location: [facility] [place] Status: Signed Intake Vital Signs 10/25/2509:33 Height 6 ft Weight: 240 lb BMI 32.5 Intake Visit Reasons: RIGHT SHOULDER Chief Complaint: Right shoulder MRI review Is patient in pain?: Yes (Right shoulder ) Pain scale (1-10): 7 Allergies hydrocodone (From Vicodin) Adverse Reaction (Verified 11/21/24 11:39) Other Medications ?Medication ?Instructions ?Recorded ?Confirmed ?Type pantoprazole 40 mg tablet,delayed 40 mg PO DAILY 09/18/20 11/21/24 History release tizanidine 4 mg capsule 8 mg PO QHS 09/18/20 11/21/24 History bupropion HCl 300 mg 24 hr tablet, 300 mg PO QDAY 02/29/24 11/21/24 History extended release cyclobenzaprine 5 mg tablet 5 mg PO TID PRN 02/29/24 11/21/24 History duloxetine 60 mg capsule,delayed 60 mg PO QDAY 02/29/24 11/21/24 History release fexofenadine 180 mg tablet 180 mg PO QDAY 02/29/24 11/21/24 History gabapentin 100 mg tablet 600 mg PO TID 02/29/24 11/21/24 History mirabegron 25 mg tablet,extended 25 mg PO QDAY 02/29/24 11/21/24 History release 24 hr (Myrbetriq) potassium chloride 20 mEq 40 meq PO DAILY 02/29/24 11/21/24 History tablet,extended release potassium chloride 20 mEq 20 meq PO BID 02/29/24 11/21/24 History tablet,extended release(part/cryst) rimegepant 75 mg disintegrating 75 mg PO QDAY PRN 02/29/24 11/21/24 History tablet (Nurtec ODT) sucralfate 1 gram tablet 1 g PO 4X/DAY 02/29/24 11/21/24 History tamsulosin 0.4 mg capsule 0.4 mg PO QDAY 02/29/24 11/21/24 History valsartan 160 mg tablet 160 mg PO QDAY 02/29/24 11/21/24 History verapamil 120 mg tablet,extended 240 mg PO QHS 02/29/24 11/21/24 History release zonisamide 50 mg capsule 50 mg PO QHS 02/29/24 11/21/24 History PFSH Medical History Right rotator cuff tear Primary osteoarthritis, right shoulder Right shoulder pain Osteoarthritis of right knee Right knee pain Loose, teeth Hearing loss, right Alcohol abuse Mood disorder History of steroid therapy Chronic pain History of IBS GERD (gastroesophageal reflux disease) Hiatal hernia Non-smoker CPAP (continuous positive airway pressure) dependence Pain aggravated by walking Edema Irregular heart beat Hypertension Migraine headache Restless legs Injury of back Stroke/cerebrovascular accident Surgical History S/P rotator cuff repair Hx of cardiac catheterization Hx of colonoscopy History of esophagogastroduodenoscopy (EGD) Hx of vasectomy Hx of arthroscopic knee surgery Hx of tonsillectomy Hx of appendectomy Hx of shoulder surgery Social History household members: spouse and family Smoking Status: Former smoker alcohol intake: current alcohol intake frequency: holidays/special occasions only HPI RIGHT SHOULDER Details: This documentation accurately reflects the service provided and the decisions made by me, Dr. Ajith Huber MD 11/21/24 1047. Part of today?s visit was documented by [ ], acting as scribe. TATE SINGH is a 49 year old M here today for FU R shoulder MRI. Has had prior injections and PT recently. Still hurts. worse with lifting or draining the car old to take the plug out. Patient had prior rotator cuff surgery about 3 years ago now. As well as a procedure on the biceps is unsure exactly when that was. Supplemental Info [facility] Imaging Services [address] [place] [address] Upper Ext Joint Only(Routine) MR#: [id number] Acct: [id number] Name: TATE SINGH Rep #: [id number] : 1975 M 49 From: Omega Russo MD PCP: Dr. Harpal Kwok, Status: REG CLI Study: Upper Ext Joint Only(Routine) Date of Exam: 11/15/24 Exam# [id number] Ordering Dr: Ajith Huber MD PROCEDURE: UPPER EXT JOINT ONLY(ROUTINE) 11/15/2024 REASON FOR EXAM: PAIN, 2 PRIOR SURGERIES TECHNIQUE: T1, T2, PD, UPPER EXT JOINT ONLY(ROUTINE) Multiplanar and multisequence images were obtained without IV contrast administration. COMPARISON: October 25, 2024 x-ray FINDINGS: Bone Marrow: Suture anchors are noted in the humeral head consistent with prior rotator cuff repair. There is no bony contusion or occult fracture. AC joint: There is moderate AC joint hypertrophy without evidence of separation. There is a type 3 acromion with impingement configuration. Rotator cuff: There is no muscular atrophy. There is a full-thickness, 50% with tear of the distal supraspinatus without retraction. There is severe distal infraspinatus tendinopathy without full-thickness tear. There is severe distal subscapularis tendinopathy without full-thickness tear or retraction. The teres minor appears intact. Labrum: There is a tear of the labrum from the 12 o'clock-2 o'clock position extending into the biceps tendon anchor. Biceps: The biceps tendon is absent from the biceps tendon groove with avulsion. Effusion: There is a trace joint effusion which extends into the subacromial subdeltoid bursa. MRI/Upper Ext Joint Only(Routine) IMPRESSION: Suture anchors are noted in the humeral head consistent with prior rotator cuff repair. There is moderate AC joint hypertrophy without evidence of separation. There is a type 3 acromion with impingement configuration. There is a full-thickness, 50% with tear of the distal supraspinatus without retraction. There is severe distal infraspinatus tendinopathy without full-thickness tear. There is severe distal subscapularis tendinopathy without full-thickness tear or retraction. There is a tear of the labrum from the 12 o'clock-2 o'clock position extending into the biceps tendon anchor. The biceps tendon is absent from the biceps tendon groove with avulsion. There is a trace joint effusion which extends into the subacromial subdeltoid bursa. [facility] I independently reviewed the imaging. Concur with radiologist report. Coding Level of Care Code Off vis,est,level 4 Diagnoses Primary osteoarthritis, right shoulder M19.011 Right shoulder pain M25.511 Right rotator cuff tear M75.101 S/P rotator cuff repair Z98.890 Assessment and Plan Assessment and Plan (1) Primary osteoarthritis, right shoulder: Status: Acute Plan: 49-year-old man with a small leading edge supraspinatus tendon tear in the setting of 2 prior shoulder arthroscopies including rotator cuff repair and an absent long head of the biceps. Discussed the pros and cons risks benefits of conservative treatment he is already had physical therapy and injections versus surgical intervention here. In the form of the right shoulder arthroscopy, subacromial decompression, rotator cuff repair, allograft patch augmentation. I will submit for approval of the Arthrex cuff mend patch to his second time revision and re-tear. This can help but increase the rates of healing need for further procedures. Patient understands signed consent form for surgery no further questions or concerns. He does have a history of right-sided weakness in the past as history of a stroke this can increase his risk of complications. Pros and cons risks and benefits were discussed with the patient including but not limited to infection, pain, stiffness, bleeding, damage to surrounding structures, neurovascular injury, recurrence or retear, failure or wear of hardware or fixation, instability, fracture, deep vein thrombosis and pulmonary embolism, anesthetic risks, , patient dissatisfaction, need for further surgery and other risks. Patient understood and wished to proceed with surgery, and signed the informed consent documentation. (2) Right shoulder pain: Status: Acute (3) Right rotator cuff tear: Status: Acute (4) S/P rotator cuff repair: Status: Acute Ortho Exam General General: Yes no acute distress Neurologic: Yes alert and Yes oriented x3 Psychologic: Yes reasonable and appropriate Right Shoulder Skin/Wound: Yes CDI, No ecchymosis, No erythema and No swelling Testing: Positive Hawkin's, Neer's, TTP Biceps, AROM-External Rotation at side 0-60, empty can and belly press normal; Negative Speed's, TTP AC Joint, Drop Arm, cross arm or scapular winging SHOULDER: normal motor and sens to ax nerve, and MRU and AIN/PIN Active and passive forward elevation 170 degrees forward elevation strength is 4+. External rotation strength 5. No crepitus [facility] Medical History Preop testing Wears partial dentures Arthritis History of edema Right rotator cuff tear Primary osteoarthritis, right shoulder Right shoulder pain Osteoarthritis of right knee Right knee pain Loose, teeth Hearing loss, right Alcohol abuse Mood disorder History of steroid therapy Chronic pain History of IBS GERD (gastroesophageal reflux disease) Hiatal hernia Non-smoker CPAP (continuous positive airway pressure) dependence Pain aggravated by walking Edema Irregular heart beat Hypertension Migraine headache Restless legs Injury of back Stroke/cerebrovascular accident Home Medications ?Medication ?Instructions ?Recorded ?Last Taken ?Type pantoprazole 40 mg tablet,delayed 40 mg PO DAILY 09/18/20 03/07/25 History release tizanidine 4 mg capsule 8 mg PO QHS 09/18/20 03/07/25 History bupropion HCl 300 mg 24 hr tablet, 300 mg PO QDAY 02/29/24 03/07/25 History extended release duloxetine 60 mg capsule,delayed 60 mg PO QDAY 02/29/24 03/07/25 History release fexofenadine 180 mg tablet 180 mg PO QDAY 02/29/24 03/07/25 History gabapentin 100 mg tablet 600 mg PO TID 02/29/24 03/07/25 History mirabegron 25 mg tablet,extended 25 mg PO QDAY 02/29/24 03/07/25 History release 24 hr (Myrbetriq) potassium chloride 20 mEq 40 meq PO DAILY 02/29/24 03/07/25 History tablet,extended release potassium chloride 20 mEq 20 meq PO BID 02/29/24 03/07/25 History tablet,extended release(part/cryst) sucralfate 1 gram tablet 1 g PO 4X/DAY 02/29/24 03/07/25 History tamsulosin 0.4 mg capsule 0.4 mg PO QDAY 02/29/24 03/07/25 History valsartan 160 mg tablet 160 mg PO QDAY 02/29/24 03/07/25 History verapamil 120 mg tablet,extended 240 mg PO QHS 02/29/24 03/07/25 History release zonisamide 50 mg capsule 50 mg PO QHS 02/29/24 03/07/25 History ubrogepant 100 mg tablet (Ubrelvy) 100 mg PO Q2H PRN PRN migraines 02/22/25 Unknown History Allergy/AdvReac Type Severity Reaction Status Date / Time pseudoephedrine (From AdvReac Intermediate unknown Verified 03/08/25 05:58 Sudafed) fentanyl AdvReac Other Verified 03/08/25 05:58 hydrocodone (From Vicodin) AdvReac Other Verified 03/08/25 05:58 Surgical History S/P rotator cuff repair Hx of cardiac catheterization Hx of colonoscopy History of esophagogastroduodenoscopy (EGD) Hx of vasectomy Hx of arthroscopic knee surgery Hx of tonsillectomy Hx of appendectomy Hx of shoulder surgery Social History household members: spouse and family Smoking Status: Former smoker alcohol intake: current alcohol intake frequency: holidays/special occasions only Vital Signs Vital Signs Vital Signs: 03/08/25 06:00 03/08/25 06:00 03/08/25 06:48 Temperature 97.9 F 97.9 F Temperature Source Temporal Pulse Rate 78 78 Respiratory Rate 18 18 Respiratory Pattern Normal Blood Pressure 132/94 H 132/94 H Blood Pressure Mean 106 Blood Pressure Source Monitor Blood Pressure Position Semi-Fowlers Blood Pressure Location Left Arm Pulse Ox 98 98 Oxygen Delivery Method Room Air Weight Weight: 253 lb 8.505 oz Body Mass Index (BMI) 34.4 Results Lab / Micro Data 02/23/25 09:22 02/23/25 09:22
[2025-03-08] MEDS: Midazolam 2 MG/2 ML Syringe IV (07:09)
[2025-03-08] MEDS: Lactated Ringers 1,000 ML 1000 ML IV (07:26)
[2025-03-08] MEDS: Cefazolin 1 GM/5 ML Vial 2 GM IV (07:26)
[2025-03-08] MEDS: Lidocaine 1% (5 ml sdv) 5 ML Vial IV (07:32)
[2025-03-08] MEDS: Epinephrine (1 mg/ml) 1 MG/ML VIAL (08:00)
--- NOTE | 2025-03-08 08:49 | DCINST_ITS ---
Discharge Instructions Diet Discharge Diet: No restrictions Activity Lifting Restrictions: no lifting over one pound, ok to remove sling at rest Additional Activity Instructions:: pendulums, hand wrist elbow ROM 4x/day Dressing / Incision Call your doctor if your incision/area has: Continuous Slow Oozing, Sudden Increased Bleeding, Increased Pain/ Swelling, Increased Redness, Foul Smelling Discharge and Swelling at the incision site Call your doctor if you observe: Fever of 101 or Higher, Coldness, Increased Pain and Numbness or Tingling Change Dressing in: leave in place till F/U Cleanse incision/area with: Do not get Incision Wet Additional Dressing/Incision Instructions:: ok to remove dressing if needed, keep incisions covered Follow Up Care Please Follow Up With: Ajith Huber MD When: within 2 weeks Test Results: Test results from this visit will be discussed in further detail at your follow- up appointment, if applicable. Discharge Plan Admission Attending Provider: Ajith Huber Primary Care Provider: Ajith Peters Instructions Patient Instructions: After Shoulder Arthroscopy Print Language: [place] Discharge Orders/Prescriptions Prescriptions: New oxycodone-acetaminophen [Percocet] 5-325 mg tablet 1 tab PO Q4H MDD 6 PRN (Reason: pain) 5 Days Qty: 20 0RF No Action bupropion HCl 300 mg tablet extended release 24 hr 300 mg PO QDAY valsartan 160 mg tablet 160 mg PO QDAY duloxetine 60 mg capsule,delayed release(DR/EC) 60 mg PO QDAY potassium chloride 20 mEq tablet,ER particles/crystals 20 meq PO BID zonisamide 50 mg capsule 50 mg PO QHS fexofenadine 180 mg tablet 180 mg PO QDAY mirabegron [Myrbetriq] 25 mg tablet extended release 24 hr 25 mg PO QDAY tamsulosin 0.4 mg capsule 0.4 mg PO QDAY sucralfate 1 gram tablet 1 g PO 4X/DAY pantoprazole 40 mg Tablet,Delayed Release (Dr/Ec) 40 mg PO DAILY tizanidine 4 mg Capsule 8 mg PO QHS potassium chloride 20 mEq tablet extended release 40 meq PO DAILY gabapentin 100 mg tablet 600 mg PO TID verapamil 120 mg tablet extended release 240 mg PO QHS Ubrelvy 100 mg tablet 100 mg PO Q2H PRN PRN (Reason: migraines) Other Ambulatory Orders: 12 Lead EKG (Routine) Location: None Selected Ordered By: Dr. Matthew Henley Referrals / Follow Up: Ajith Huber MD [Med Staff - Active Staff, Orthopedics] Ajith Peters DO [Primary Care Provider, Medical] Disposition Disposition (needs filled in before D/C Order can be placed): Home, Self Care
--- NOTE | 2025-03-08 08:51 | OP.PCM_ITS ---
Procedures Musculoskeletal [id number]: Other Procedure See Report Operative Report (Standard) Operative Information Date of Procedure: 03/08/25 Pre-Operative Diagnosis: Right shoulder rotator cuff tear and impingement syndrome Post-Operative Diagnosis: Same Surgery/Procedure Performed: Right shoulder arthroscopy, debridement, subacromial decompression, rotator cuff repair and allograft patch augmentation archives specialist: Yes Offal Roller: [email or web address] Tasks completed by assistant administrator: Retracting Type of Anesthesia: Block,Regional and General RN Documented Start/Stop Times: Operation Date: 03/08/25 07:30 Case Time Into Pre-Op 03/08/25 05:42 Out of Pre-Op 03/08/25 07:25 Anesthesia Start 03/08/25 07:26 Into Room 03/08/25 07:26 Procedure Start 03/08/25 07:52 Procedure End 03/08/25 08:48 Procedure Start Time: 07:52 Procedure Stop Time: 08:48 Select all DRAINS/GRAFTS/IMPLANTS that apply: Graft Graft details: Arthrex allograft patch Estimated Blood Loss: 50 Specimen collected: No Description of surgery: Patient brought to the operating room theater. Placed supine on the table. Preoperative block given. 2 g IV Ancef administered prior to the start of the procedure. General anesthesia induced. Patient transferred to the right side up lateral decubitus beanbag positioner axillary roll placed. All bony prominences padded. SCDs on the legs. Upper extremity prepped and draped in the usual sterile fashion with chlorhexidine-based prep solution allowing over 3 minutes drying time prior to draping. 10 pounds of inline traction with the arm in 40 degrees of abduction was utilized. Preoperative timeout performed to confirm the site patient and the surgery. Began by inserting the arthroscope into the intra-articular portion of the shoulder through a standard posterior arthroscopy portal. Did a full diagnostic arthroscopy. Created an anterior portal inside out spinal needle localization through the rotator interval. There is 1 small 1 cm x 1 cm cartilage defect of the humeral head posterior lateral area otherwise the glenoid cartilage appeared normal. There is some fraying of the anterior labrum and the biceps tendon long head was missing completely. No loose bodies axillary recess entered. Subscapularis. Normal. The anterior leading edge of the tendon had a near complete full-thickness tear over 90% with very thin bursa covering this. I then inserted the scope into the subacromial space. I performed a complete bursectomy. There is a minor amount of inflammatory bursitis medially. There is very slight downsloping of the acromion I flatten this using a high speed reginald instrument by about 1 mm. Identified the AC joint this appeared normal slightly hypertrophic. I established accessory lateral and another accessory lateral portal. I placed a cannula through this. Identified the tear site completed the tear using a sharp 11 blade. Again this is a very high-grade near complete tear at the anterior aspect of the supraspinatus tendon. I gently debrided the edges as well as the footprint and then used the Arthrex power pick for multiple trephination's at the greater tuberosity for healing. Tear was mobile. This was 1.5 cm anterior to posterior tear. Used inverted horizontal mattress fiber tape suture as well as a Arthrex fiber link suture in between that to create a ripstop Zackery-Chuck configuration with a luggage tag consistent figuration. I then took the 3 suture limbs into a Arthrex 4.75 mm bio composite swivel lock anchor laterally just lateral to the footprint. This achieved good compression of the tear in good repair I also used the accessory included suture through the anterior slight leading edge tear as well and then converted this and cut the suture short. I then sized my graft by 2 cm from anterior to posterior and 2.5 cm from medial to lateral. I used the fiber links laterally as well as the included sutures for the medial row to attach the graft to the cardiac catheterization technologist. I kept this appropriate orientation and marked the superior surface with the purple marking pen. I used the passport cannula laterally. I then inserted it into the subacromial space over top of the rotator cuff. I placed this in appropriate aspect to be covering the repair site as well as the footprint. I used the included medial fiber stitch repairs for 2 horizontal mattress at the medial aspect of the graft and cut the suture short. I then remove the sutures from the cardiac catheterization technologist and then used the attached fiber links at the lateral aspect of the graft anterior and posterior and to 2 push lock anchors. This achieved good compression of the repair graft at the footprint site. Final arthroscopy pictures taken and saved onto the system. Arthroscope withdrawn wounds thoroughly irrigated portal sites closed with 3-0 Monocryl suture. Skin cleaned with wet dry dressing followed application of Steri-Strips Adaptic 4 x 4 gauze ABD dressing cloth tape and an abduction pillow sling for the upper extremity. Patient woken up from the general anesthetic transferred off the operating table taken to postanesthetic care unit in stable condition. All sponge needle instrument counts were correct no complications. Plan for the patient discharged home according to day surgery criteria follow-up in the office within 2 weeks time. [id number], [id number], [id number], mod 22 for the graft Surgical Findings: As above Complications Complications: No Admit VTE Documentation VTE Present on Admission: No VTE Mechan Device Prophylaxis: SCD's VTE Pharm Prophylaxis ordered?: No Reason prophylaxis not ordered: Treatment Not Indicated
--- NOTE | 2025-03-08 09:11 | PCM.POST.ANE ---
Anesthesia: Postop Eval I Current Vital Signs Temperature: 99.4 F Pulse Rate: 74 Blood Pressure: 144/90 Respiratory Rate: 18 Pulse Ox: 96 Assessment Airway patent: Yes Spontaneous unlabored respirations: Yes nausea: No Vomiting: No Anesthesia Complication: No Fluid Hydration Crystalloid volume administer (ml): 1,000 Total IV fluid infused: 1,000 Progress Note Anesthesia document: Postop Eval 1 completed: Yes
--- NOTE | 2025-03-08 09:27 | POSTOPAN2_ITS ---
Anesthesia Postop Eval I Sum Postop Eval Completion status Anesthesia document: Postop Eval 1 completed: Yes Anesthesia Postop Eval I Summary Anesthesia Postop Eval I Summary: Anesthesia Postop Eval I: Assessment Summary Airway patent Yes 03/08/25 09:11 [email or web address] Spontaneous unlabored Yes 03/08/25 09:11 [email or web address] respirations Mental status nausea No 03/08/25 09:11 [email or web address] Vomiting No 03/08/25 09:11 [email or web address] [email or web address] Anesthesia Postop Eval I: Fluid Summary Crystalloid volume administer 1,000 03/08/25 09:11 [email or web address] (ml) Colloids volume administered ( ml) Blood Product volume administered (ml) Total IV fluid infused 1,000 03/08/25 09:11 [email or web address] Anesthesia Postop Eval I: Summary Notes Anesthesia Complication No 03/08/25 09:11 [email or web address] Anesthesia Complication Comment: Post-operative progress note Anesthesia: Postop Eval II Evaluation Mental status: Awake Pain Level: 1 nausea: No Vomiting: No
--- NOTE | 2025-03-08 09:27 | PCM.POSTANE2 ---
Anesthesia Postop Eval I Sum Postop Eval Completion status Anesthesia document: Postop Eval 1 completed: Yes Anesthesia Postop Eval I Summary Anesthesia Postop Eval I Summary: Anesthesia Postop Eval I: Assessment Summary Airway patent Yes 03/08/25 09:11 [email or web address] Spontaneous unlabored Yes 03/08/25 09:11 [email or web address] respirations Mental status nausea No 03/08/25 09:11 [email or web address] Vomiting No 03/08/25 09:11 [email or web address] [email or web address] Anesthesia Postop Eval I: Fluid Summary Crystalloid volume administer 1,000 03/08/25 09:11 [email or web address] (ml) Colloids volume administered ( ml) Blood Product volume administered (ml) Total IV fluid infused 1,000 03/08/25 09:11 [email or web address] [email or web address] Anesthesia Postop Eval I: Summary Notes Anesthesia Complication No 03/08/25 09:11 [email or web address] Anesthesia Complication Comment: Post-operative progress note Anesthesia: Postop Eval II Evaluation Mental status: Awake Pain Level: 1 nausea: No Vomiting: No
== END 2025-03-08 10:04 | disposition home or self-care (01) ==
LOC: SDC 05:23 → AC 05:23
PROVIDERS: Anesthesiology; Referring Provider Orthopaedic Surgery Sports Medicine; Visit Provider Orthopaedic Surgery Sports Medicine
PROC: (CPT 29805; principal; 2025-03-08 07:10)
DX: M75.101 Unspecified rotator cuff tear or rupture of right shoulder, not specified as traumatic (principal); M75.41 Impingement syndrome of right shoulder; M19.011 Primary osteoarthritis, right shoulder; G89.29 Other chronic pain; I10 Essential (primary) hypertension; K21.9 Gastro-esophageal reflux disease without esophagitis; Z79.899 Other long term (current) drug therapy; Z87.891 Personal history of nicotine dependence; Z86.73 Personal history of transient ischemic attack (TIA), and cerebral infarction without residual deficits
CPT/HCPCS: 29827; 29826; 29822; 64415; 36415; 80048; 85027; 93005; C1713; Q4125; J2405